=== PATIENT | male | born 1935 | race Caucasian/White ===

== ENCOUNTER → 2021-02-27 10:45 | Outpatient (CLI) | payer MEDICARE, SELFPAY ==
[2021-02-27 11:22] LABS: ALB/GLOB Ratio 0.7 RATIO (0.9-2.4); AST(SGOT) 12 U/L (15-37); Alanine Aminotransfer ALT/SGPT 21 U/L (16-61); Albumin, Serum 3.2 g/dL (3.2-5.0); Alkaline Phosphatase 65 U/L (45-117); Anion Gap 7 (5-15); BUN 24 mg/dL (7-18); BUN/Creat Ratio 15.5 RATIO (10-20); Calcium,Total 8.8 mg/dL (8.5-10.1); Chloride 98 mmol/L (98-107); Creatinine, Serum 1.55 mg/dL (0.70-1.30); EST Glomerular Filtration Rate 46 mL/min (>60); Est Glom Filt Rate - Afr Amer 55 mL/min (>60); Globulin 4.3 g/dL (2.2-4.2); Glucose 121 mg/dL (74-106); Potassium 3.3 mmol/L (3.5-5.1); Protein, Total 7.5 g/dL (6.4-8.2); Sodium Level 129 mmol/L (136-145)
== END ==
PROVIDERS: PCP Family Medicine; Visit Provider Nurse Practitioner Family
DX: R19.7 Diarrhea, unspecified (principal)
CPT/HCPCS: 36415; 80053; 87177; 87209

== ENCOUNTER 2023-04-06 19:45 | Inpatient (IN) | payer MEDICARE, SELFPAY ==
[2023-04-06 21:00] VITALS: BMI 22.6
[2023-04-06 21:10] VITALS: BP 126/63; PULSE 57; RESP 16; TEMP 36.8; O2SAT 95
[2023-04-06 22:00] VITALS: BP 128/69; PULSE 59; PULSE 63; RESP 15; RESP 16; TEMP 36.8; O2SAT 95
[2023-04-06 22:16] VITALS: PULSE 76
[2023-04-06] MEDS: Methocarbamol 500 MG Tablet PO (22:16)
[2023-04-06] MEDS: Metoprolol Tartrate 50 MG Tablet PO (22:16)
[2023-04-06] MEDS: Atorvastatin Calcium 40 MG Tablet PO (22:16)
[2023-04-07] VITALS (7 sets, daily range): BP systolic 94–144; BP diastolic 44–66; PULSE 59–79; RESP 15; TEMP 36.6–36.7; O2SAT 92–96
[2023-04-07 05:39] LABS: Absolute Lymphocyte Count 1.22 X10^3/uL (0.83-4.51); Absolute Neutrophil Count 4.3 X10^3/uL (2.0-7.7); Basophil# 0.03 X10^3/uL; Basophil% 0.4 % (0-1); Eosinophil# 0.32 X10^3/uL; Eosinophils% 4.7 % (0-5); Hematocrit 36.6 % (40-54); Hemoglobin 12.6 g/dL (13.0-16.5); Lymphocyte # 1.22 X10^3/ul (0.83-4.51); Mean Corp Hgb Conc 34.4 g/dL (32-36); Mean Corpuscular Hgb 29.9 pg (27.0-32.0); Mean Corpuscular Volume 86.7 fL (80-94); Mean Platelet Vol. 10.6 fl (6.2-12.0); Monocyte# 0.92 X10^3/uL; Monocyte% 13.6 % (0-10); NRBC Flagged by Analyzer 0 % (0-5); Neutrophil # 4.27 X10^3/uL (2.7-7.7); Platelet Count 195 K/mm3 (150-450); RBC Distribution Width CV 13.6 % (11.6-14.6); RBC Distribution Width SD 42.5 fl (35.1-43.9); Red Blood Count 4.22 M/mm3 (4.6-6.2); White Blood Count 6.8 K/mm3 (4.4-11.0)
[2023-04-07] MEDS: Acetaminophen 500 MG Tablet PO (05:50)
[2023-04-07 05:52] LABS: Anion Gap 7 (5-15); BUN 25 mg/dL (7-18); BUN/Creat Ratio 22.3 RATIO (10-20); Calcium,Total 8.2 mg/dL (8.5-10.1); Chloride 92 mmol/L (98-107); Creatinine, Serum 1.12 mg/dL (0.70-1.30); EST Glomerular Filtration Rate 66 mL/min (>60); Est Glom Filt Rate - Afr Amer 80 mL/min (>60); Estimated Creatinine Clearance 45.27 ml/min; Glucose 115 mg/dL (74-106); Magnesium 1.8 mg/dL (1.6-2.6); Phosphorus 3.4 mg/dL (2.5-4.9); Potassium 4.1 mmol/L (3.5-5.1); Sodium Level 124 mmol/L (136-145)
[2023-04-07] MEDS: Aspirin 81 MG TAB.CHEW PO (09:00)
--- NOTE | 2023-04-07 09:33 | EX.PCM.HP.RE ---
[facility] - General General Date of Admission: 04/06/23 Date of Service: 04/07/23 Chief Complaint: Post stroke debility. HPI Narrative SERGO RALPH, is a 88 YO M with a PMH of BPH, hypertension, abdominal aortic aneurysm, bilateral carotid stenosis, celiac disease, diverticulosis, elevated hemoglobin A1c, internal hemorrhoids, stage IIIa chronic renal failure, vitamin D deficiency and hyperlipidemia who presented to an ED on 04/01/2023 in the evening complaining of sudden onset of left arm weakness after going for a walk at approximately noon. He then took a nap and when he woke up the symptoms were mildly improved but still present. He had not taken any of his medications that day. NIHSS at admission to the emergency department was 0. CT head showed no evidence of an acute infarct or other acute parenchymal process. There was a small region of encephalomalacia and gliosis in the right frontal lobe. CTA showed no large vessel occlusion or high-grade stenosis. There was bilateral carotid artery disease estimated at 30 to 40% on the right and less than 30% on the left. Vertebral arteries were patent bilaterally. He was admitted to the hospital and started on aspirin, Plavix and atorvastatin. Echocardiogram showed the left ventricle to be normal in size with moderate concentric left ventricular hypertrophy and hyperdynamic systolic function with an EF estimated at 70 to ?5%. There was 2+ aortic regurgitation. There was no PFO. He became lightheaded and had a fall on 04/02/23 while standing at the sink brushing his teeth. He sustained a left elbow skin tear and mild superficial abrasion to the back of the head with an underlying hematoma. Neuro exam had not changed from that morning when he had mild left upper extremity weakness. The following morning he complained of left lateral thoracic pain. X-ray showed fractures of ribs 8 9 and 10 on the left with a small pneumothorax. On 04/03/2023 he had an MRI of the brain which showed an acute infarct of the right inferior parietal lobule. There was evidence of small foci of previous infarcts/microvascular ischemia along the right lateral temporal occipital junction and the right middle cerebral peduncle. There were small subacute infarcts in the right cerebellar hemisphere and evidence of chronic lacunar infarcts in both cerebellar hemispheres. There was suspected minimal petechial hemorrhage. While in the hospital he was seen by PT/OT/ST and acute rehab was recommended at [place]. I reviewed the therapy notes prior to DC and he had good participation in activities but was limited by pain in his ribs. The physical therapy problem list included decreased strength, functional mobility impairment and balance impairment. He exhibited some impulsive behavior and some left-sided neglect. He was transferred to [facility] acute rehab unit on 04/06/2023 for 3 hours of therapy daily to restore function and independence at or near his level prior to CVA. All lab drawn this morning was personally reviewed. Of most importance is the sodium level which is 124. Afebrile VSS Maintaining appropriate oxygen saturation on RA Oral intake is fair. He ate 50 to 74% of his breakfast today. Discussed with nursing - no problems that need addressed Reviewed the PT/OT/ST notes Medication list reviewed. [facility] Medical History (Updated 04/07/23 @ 18:[address] Lily Braden DO) AAA (abdominal aortic aneurysm) BPH (benign prostatic hyperplasia) Carotid stenosis, bilateral Celiac disease Diverticulosis Hyperlipidemia Hypertension Internal hemorrhoids Non-smoker Stroke/cerebrovascular accident Home Medications amlodipine 5 mg tablet mg PO DAILY TREAT HIGH BLOOD PRESSURE 04/06/23 [History Last Taken Unknown] aspirin 81 mg capsule 81 mg PO DAILY HEART HEALTH 04/06/23 [History Last Taken Unknown] atorvastatin 40 mg tablet 40 mg PO QHS CHOLESTEROL 04/06/23 [History Last Taken Unknown] cholecalciferol (vitamin D3) 125 mcg (5,000 unit) tablet (Vitamin D3) 5,000 unit PO DAILY SUPPLEMENT 04/06/23 [History Last Taken Unknown] clopidogrel 75 mg tablet (Plavix) 75 mg PO DAILY HEART 04/06/23 [History Last Taken Unknown] lidocaine 4 % topical patch 1 patch topical DAILY RIB PAIN 04/06/23 [History Last Taken Unknown] methocarbamol 500 mg tablet 500 mg PO BID PAIN 04/06/23 [History Last Taken Unknown] metoprolol tartrate 50 mg tablet mg PO BID HTN 04/06/23 [History Last Taken Unknown] oxycodone 5 mg capsule 5 mg PO Q6H PRN pain 04/06/23 [History Last Taken Unknown] tamsulosin 0.4 mg capsule mg PO DAILY TREAT ENLARGED PROSTRATE 04/06/23 [History Last Taken Unknown] Allergy/AdvReac Type Severity Reaction Status Date / Time GLUTEN FREE AdvReac Intermediate GI DISTRESS Uncoded 04/06/23 23:52 Family History (Updated 04/07/23 @ 09:[address] Lily Braden DO) Father CVA (cerebral vascular accident) Sister Lupus (systemic lupus erythematosus) Brother Diabetes Brother Diabetes Surgical History (Updated 04/07/23 @ 09:[address] Lily Braden DO) H/O abdominal aortic aneurysm repair History of excision of lesion History of excision of lesion Social History (Updated 04/07/23 @ 16:[address] Lily Braden DO) household members: significant other housing: other details: Private one-story home with no steps. 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 pets and animals: Yes Smoking Status: Never smoker alcohol intake: never substance use type: does not use ROS Review of Systems ROS Unobtainable: due to encephalopathy and other Details: His only complaint at this time is back pain and he perseverates on this. He has posterior rib fractures 7-9 from his fall. He tells me the pain is getting better. He denies cephalgia but has a large bruise over the Left parietal/occipital area of the skull. Vital Signs Vital Signs Vital Signs: 04/06/23 22:16 04/06/23 21:10 04/06/23 22:00 Temperature 98.3 F 98.2 F Temperature Source Temporal Temporal Pulse Rate 76 57 L 59 L Respiratory Rate 16 15 Respiratory Effort Respiratory Depth Respiratory Pattern Blood Pressure 126/63 H 128/69 H Blood Pressure Mean 84 88 Blood Pressure Source Monitor Monitor Blood Pressure Position Semi-Fowlers Semi-Fowlers Blood Pressure Location Left Arm Right Arm Pulse Ox 95 95 Oxygen Delivery Method Room Air Room Air 04/06/23 22:00 04/07/23 07:59 Temperature 97.9 F Temperature Source Oral Pulse Rate 63 59 L Respiratory Rate 16 15 Respiratory Effort Normal Non-Labored Respiratory Depth Normal Respiratory Pattern Normal Blood Pressure 144/66 H Blood Pressure Mean 92 Blood Pressure Source Monitor Blood Pressure Position Semi-Fowlers Blood Pressure Location Left Arm Pulse Ox 96 Oxygen Delivery Method Room Air Room Air Weight Weight: 149 lb 0.52 oz Body Mass Index (BMI) 22.6 Indicators for Scoring Admitted with or Primary Diagnosis of CVA/Stroke: Yes Hx of CVA/Stroke: Yes Modified [place] Score MRS Score at time of Evaluation: 4-Moderate/severe disability NIHSS NIHSS 1a. Level of Consciousness: Alert; keenly responsive 1b. LOC Questions: Answers neither question correctly. 1c. LOC Commands: Performs both tasks correctly. 2. Best Gaze: Partial gaze palsy; 3. Visual: Complete hemianopia 4. Facial Palsy: Normal symmetrical movements 5a. Left Arm: No drift; arm holds 90 (or 45) degrees for full 10 seconds 5b. Right Arm: No drift; arm holds 90 (or 45) degrees for full 10 seconds 6a. Left Leg: No drift; leg holds 30-degree position for full 5 seconds 6b. Right Leg: No drift; leg holds 30-degree position for full 5 seconds 7. Limb Ataxia: Present in 2 limbs 8. Sensory: Normal; no sensory loss 9. Best Language: [id number]-lg-[id number] aphasia; 10. Dysarthria: Cvur-dp-[id number] dysarthria; 11. Extinction and Inattention: Profound donna-inattention or extinction to more than one modality; Total: 11 Stroke Questions Stroke Team Activated: No Physical Exam Const alert Constitutional Narrative: He is oriented to person only for me. Could not tell me the year or the month. He is pleasant and cooperative. Orientation / Consciousness: confused HEENT normocephalic HEENT Narrative: He has a bruise on the top of his head in the parietal/occipital area where he hit his head when he fell. Mouth: dry mucous membranes Eyes EOMs intact bilaterally Eyes Narrative: Pupils are reactive to light bilaterally Neck supple, no JVD, No nodes and no carotid bruits General: trachea midline Resp normal respiratory effort, normal air movement and clear to auscultation bilaterally Resp Narrative: Excellent air exchange throughout. No conversational dyspnea. Speaking in complete sentences. Effort and Inspection: Negative for tachypneic or labored Cardio regular rate, regular rhythm, S1 normal heart sound, S2 normal heart sound, no murmurs, no rub and no gallops Cardio Narrative: It was noisy in the room and I could not hear a diastolic murmur at the aortic listening post. He is known to have 2+ aortic regurgitation. GI normal to inspection, nondistended, normoactive bowel sounds, soft to palpation and non-tender GI Narrative: No guarding with palpation Extremity no calf tenderness Extremity Narrative: He has pain in the Left posterior thoracic area but he did not complain when I laid the stethoscope on his back. He is not splinting his respirations. General Extremity: Negative for clubbing, cyanosis or edema Skin Skin Narrative: He has a bandage on the L elbow from an abrasion sustained in a fall at the previous hospital. General Skin Exam: no breakdown Rashes: no rashes Neuro CN's II-XII intact bilaterally, no focal motor deficits and no sensory deficits noted Neuro Narrative: He is ataxic with both Upper extremities and both LE's. He has a hemianopia with loss of R eye medial side and the L eye lateral side. He has left side visual neglect and has extinction with sensory stimulation. He can not read the sentences and he has a speech apraxia and mispronounces many words. He can sometimes describe what a picture is showing but, he can not come up with the name. For the hammock he told me it was a couch that swings back and forth. He has generalized weakness but no focal weakness in the arms or legs that I perceive. He is R handed. Coordination / Balance: Negative for [id number]-ih-[id number] test normal or wmoq-ic-hvch test normal Psych cooperative and affect normal Psych Narrative: He is confused but, pleasant and cooperative. Appearance: appropriate Attitude: No agitated Results Lab / Micro Data 04/07/23 05:32 04/07/23 05:32 Labs: Laboratory Results - last 24 hr 04/07/23 05:32: WBC 6.8, RBC 4.22 L, Hgb 12.6 L, Hct 36.6 L, MCV 86.7, MCH 29.9, MCHC 34.4, RDW Std Deviation 42.5, RDW Coeff of Chaim 13.6, Plt Count 195, MPV 10.6, Immature Gran % (Auto) 0.300, Neut % (Auto) 63.0, Lymph % (Auto) 18.0 L, Dougherty % (Auto) 13.6 H, Eos % (Auto) 4.7, Baso % (Auto) 0.4, Absolute Neuts (auto) 4.3, Absolute Lymphs (auto) 1.22, Nucleated RBC % 0, Sodium 124 L, Potassium 4.1, Chloride 92 L, Carbon Dioxide 25.0, Anion Gap 7, BUN 25 H, Creatinine 1.12, Estim Creat Clear Calc 45.27, Est GFR (MDRD) Af Amer 80, Est GFR (MDRD) Non-Af 66, BUN/Creatinine Ratio 22.3 H, Glucose 115 H, Calcium 8.2 L, Phosphorus 3.4, Magnesium 1.8 Assessment & Plan Assessment/Plan (1) Debility: (2) Stroke/cerebrovascular accident: QUALIFIERS: CVA mechanism: unspecified Qualified Code(s): I63.9 - Cerebral infarction, unspecified PLAN: There are several old strokes that he and his family are unaware of. No LVO on the CTA of the H&N. Needs to have a 30 day event monitor at DC to R/O emboli due to AF. 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: (7) Generalized weakness: (8) Acute metabolic encephalopathy: (9) Hyponatremia: (10) Normochromic normocytic anemia: (11) Orthostatic hypotension: (12) Prerenal azotemia: (13) Hyperglycemia: (14) Celiac disease: (15) BPH (benign prostatic hyperplasia): (16) Hyperlipidemia: QUALIFIERS: Hyperlipidemia type: unspecified Qualified Code(s): E78.5 - Hyperlipidemia, unspecified (17) Hypertension: QUALIFIERS: Hypertension type: primary hypertension Qualified Code(s): I10 - Essential (primary) hypertension PLAN: Plan PLAN PT for gait stability OT for ADL's ST for evaluation Analgesics as needed Bowel protocol Fall precautions Assess for Anxiety/Depression GI prophylaxis with pantoprazole 20 mg p.o. daily DVT prophylaxis with SCDs and CHANTAL hose....currently on ASA and Plavix with NN anemia and at risk for UGI bleeding......will check a hemoccult stool and if it is negative and the HH is stable will likely add Lovenox. Follow up with PCP and neurology following DC from [facility] Rehab AM lab including CMP, CBC, Mag and Phos personally reviewed. Gluten free diet and low fat no sodium restriction. Fractional excretion of sodium is 0.1% which is consistent with prerenal azotemia. This is reinforced by the fact that he has orthostatic hypotension. Oral intake is only been 480 cc since he arrived and he had 960 out. Serum osmolality is low at 269 and the urine osmolality is 653. Start IV NS at 75 cc/hr which is less than 0.5 MEQ per hour to prevent central pontine myelinolysis TSH and free T4 are within normal limits. Charges/Coding Visit Charges Inpatient E&M: 65860 Init Hosp L3
--- NOTE | 2023-04-07 10:27 | REHABEVAL_ITS ---
Admission Information Primary Diagnosis:: Post stroke debility Status Changes from Prescreening?: No changes Identified Actual Problem List:: Falls, Skin Intergrity, Pain, ALteration in Cmfrt, Cognitve Impr/Memory Loss, Alteration in Sleep, Mobility Impaired, Self Care Deficit, BP, Hypertension, BP, Hypotension, Fluid Change-Dehydration and Alteration-Leisure Activ. Potential Problem List:: DVT, Bleeding, Infection, UTI, Aspiration, Falls, Skin Integrity and Depression Risk of Complications DVT: CHANTAL Shah and - (SCDs - he is on dual antiplatelet agents and has a N/N anemia. Will check a hemoccult stool and if the HGB remains stable and the hemoccult is negative we will likely start heparin 5,000 units Q 12H for DVT prophylaxis.) Bleeding: Monitor Lab Values, Nursing to Teach Precautions for anti-coagulation therapy., Wound, if applicable, to be assessed every shift. and Stroke patients assessed for lethargy or change in status. Infection: Clinical Staff to Monitor for S/S of infection: and S/S of infection include fever, redness, warmth, etc. Urinary Tract Infection: Monitor for frequency, burning, discomfort, or incontinence. and Nursing will obtain urine sample for urinalysis and C&S when ordered. Aspiration: Clinical staff will monitor for coughing, drooling, congestion., Speech will evaluate swallowing and dsyphasia. and Nursing will monitor patient swallowing during meals. Falls: Patient will be evaluated for Fall Precautions and Patient will be placed on Fall Precautions as indicated per protocol. Skin Breakdown: Nursing will assess skin daily using assessment tool. and Nursing will place on Skin Breakdown Precautions as indicated. Pain: Clinical staff will assess patient's pain level per protocol., Medications will be given, if needed, and the pain level reassessed. and Other methods: Massage, distraction, decrease stimulus, etc. used PRN. Plan of Care Patient requires physician specializing in physical medicine and rehab oversight to provide close medical supervision of rehab issues including: Pain Management, Sleep Problems, Bowel and Bladder, Medical and co-morbidity Management, DVT prophylaxis, Rehabilitation Leadership and Coordination of treatment team Patient needs Physical Therapy: For a minimum of 1 hour and At least 5 out of 7 days Patient needs Physical Therapy to improve:: Mobility, Strengthening, Transfers, Stretching, ROM, Endurance, Stairs, Gait and Balance Patient needs Occupational Therapy: For a minimum of 1 hour and At least 5 out of 7 days Patient needs Occupational Therapy to improve ADL's incl.: Eating, Grooming, Bathing, Dressing, Toileting, Toilet transfers, Community Reintegration, Higher functioning activities, Household tasks, Adaptive Equipment, Splinting and Other activities as determined Patient requires speech therapy: For a minimum of 1 hour and At least 5 out of 7 days Patient requires speech therapy for: Swallowing, Cognition, Language Skills and Compensatory Strategies Patient requires 24/7 Rehabilitation Nursing for: Pain Issues, Identifying and preventing risk factors, Monitoring and reporting current medical conditions, Assisting with ambulation, transfer, and all ADL's, Teaching patients about disease process and medications, Family teaching, Providing safe environment, Bowel and Bladder Issues, Skin integrity and Medication Management Patient needs Roll Coverer/ Case Management for: Discharge Planning, Arran ging Home Equipment or Services and Family Interventions Patient needs Dietary and Nutrition Services for: Adequate Nutrition, Nutritional Supplements and Nutritional Education Goals Patient will remain: free from falls and or injury at time of discharge. Patient will perform bed mobility at: MOD I level of assist. Patient will complete transfers from bed to chair at: - (Supervision at discharge) Patient will ambulate: with LRD and - (500 feet on various surfaces for safe return to home at mod I) Patient will complete upper body dressing at: - (Supervision) Patient will complete lower body dressing at: - (Supervision with assistive equipment as needed) Patient will complete toileting at: - (Supervision) Patient will perform bathing at: - (Supervision/standby assist) Patient will complete grooming at: - (Supervision) Patient will complete home management skills at: MOD I level of assist. Patient will achieve: - (1 curb step at mod I with the least restrictive device) Patient will have pain level of: of 3 or less Patient's skin will: remain intact Patient will receive: adequate nutrition. Discharge Planning Pt Prognosis for Sig. Practical Improv. w/in Reasonable Time: Good Estimated Length of stay (days): 28 Anticipated D/C Destination: Home with Outpt Therapy Was Preadmission Assessment Accurate?: No
[2023-04-07] MEDS: amLODIPine 5 MG Tablet PO (10:47)
[2023-04-07] MEDS: Clopidogrel Bisulfate 75 MG Tablet PO (10:47)
[2023-04-07] MEDS: Cholecalciferol (Vit D3) 125 MCG CAPSULE (5,000 UNITS) PO (10:48)
[2023-04-07] MEDS: Tamsulosin HCl 0.4 MG Capsule PO (10:48)
[2023-04-07] MEDS: Lidocaine 5% Patch 1 PATCH TOPICAL (10:48)
[2023-04-07] MEDS: Metoprolol Tartrate 50 MG Tablet PO (10:49)
[2023-04-07 10:55] LABS: T4 Free Direct 1.19 ng/dL (0.76-1.46); Thyroid Stim Hormone (TSH) 3.26 uIU/mL (0.358-3.74)
[2023-04-07 13:22] LABS: Osmolality, Serum 269 mOsm/KG (280-301)
[2023-04-07 15:07] LABS: Urine Sodium 18 mmol/L (Not Establ.)
[2023-04-07 15:28] LABS: Osmolality, Urine 635 mOsm/KG
[2023-04-07] MEDS: 0.9% Normal Saline 1,000 ML 75 ML IV (17:22)
[2023-04-07] MEDS: Pantoprazole Sodium 20 MG Tablet PO (17:22)
[2023-04-07] MEDS: traMADol 50 MG Tablet PO (21:11)
[2023-04-07] MEDS: Atorvastatin Calcium 40 MG Tablet PO (21:11)
[2023-04-07] MEDS: Acetaminophen 500 MG Tablet 1000 MG PO (21:14)
[2023-04-07 23:47] LABS: Anion Gap 8 (5-15); BUN 30 mg/dL (7-18); BUN/Creat Ratio 26.3 RATIO (10-20); Calcium,Total 8.2 mg/dL (8.5-10.1); Chloride 92 mmol/L (98-107); Creatinine, Serum 1.14 mg/dL (0.70-1.30); EST Glomerular Filtration Rate 65 mL/min (>60); Est Glom Filt Rate - Afr Amer 78 mL/min (>60); Estimated Creatinine Clearance 44.47 ml/min; Glucose 129 mg/dL (74-106); Potassium 4.1 mmol/L (3.5-5.1); Sodium Level 124 mmol/L (136-145)
--- NOTE | 2023-04-08 00:35 | NURSING ---
Pt has repeatedly attempted to climb out of bed. Very disoriented. Call light in reach,placed back to bed.
--- NOTE | 2023-04-08 04:34 | NURSING ---
Bladder scanned pt d/t no void, being confused, and having fluids running. BS for 454mL and straight cathed 600mL. PVR 1mL after str/cath. Pt tolerated fair.
[2023-04-08] MEDS: Acetaminophen 500 MG Tablet 1000 MG PO ×3 (06:01→19:46)
[2023-04-08] MEDS: 0.9% Normal Saline 1,000 ML 75 ML IV (06:01)
[2023-04-08 07:16] LABS: Hematocrit 36.9 % (40-54); Hemoglobin 12.7 g/dL (13.0-16.5)
[2023-04-08 07:54] LABS: Anion Gap 8 (5-15); BUN 26 mg/dL (7-18); BUN/Creat Ratio 22.4 RATIO (10-20); Calcium,Total 8.3 mg/dL (8.5-10.1); Chloride 93 mmol/L (98-107); Creatinine, Serum 1.16 mg/dL (0.70-1.30); EST Glomerular Filtration Rate 63 mL/min (>60); Est Glom Filt Rate - Afr Amer 77 mL/min (>60); Estimated Creatinine Clearance 43.71 ml/min; Glucose 106 mg/dL (74-106); Potassium 3.8 mmol/L (3.5-5.1); Sodium Level 124 mmol/L (136-145)
[2023-04-08 08:27] VITALS: BP 130/70; PULSE 81
[2023-04-08] MEDS: amLODIPine 5 MG Tablet PO (08:27)
[2023-04-08] MEDS: Aspirin 81 MG TAB.CHEW PO (08:27)
[2023-04-08] MEDS: Metoprolol Tartrate 50 MG Tablet PO ×2 (08:27→19:46)
[2023-04-08] MEDS: Lidocaine 5% Patch 1 PATCH TOPICAL (08:27)
[2023-04-08] MEDS: Pantoprazole Sodium 20 MG Tablet PO (08:27)
[2023-04-08] MEDS: Clopidogrel Bisulfate 75 MG Tablet PO (08:27)
[2023-04-08] MEDS: Cholecalciferol (Vit D3) 125 MCG CAPSULE (5,000 UNITS) PO (08:27)
[2023-04-08] MEDS: Tamsulosin HCl 0.4 MG Capsule PO (08:27)
[2023-04-08 09:15] VITALS: BP 139/63; PULSE 59; RESP 15; TEMP 36.6; O2SAT 93
--- NOTE | 2023-04-08 09:46 | PCM.PROGNOTE ---
Subjective Subjective Afebrile VSS-the systolic blood pressure tends to be mildly elevated in the AM. Yesterday it was 144/66 and today it is 139/63. The remainder of the blood pressures are within normal limits. Maintaining appropriate oxygen saturation on RA Oral intake is fair Fluid balance yesterday was only +268. He took 720 orally and had 749 cc IV. He had 1400 cc output. Discussed with nursing -he was restless last night and trying to climb out of bed. He was confused and setting off his alarms. He had a postvoid residual of 600 cc last night and he was straight cathed. Reviewed the PT/OT/ST notes - He is participating in therapy today. Medication list reviewed. A.m. lab was personally reviewed. Hemoglobin is stable at 12.7. Sodium is once again 124 and the chloride is 93. Potassium is 3.8. The BUN is 26, down from 30 yesterday and the creatinine is stable and is 1.16. He is known to have chronic renal failure and likely is unable to concentrate his urine. May have to give 3% saline to get his sodium up. Another option would be tolvaptan. Fasting glucose this morning is 106. Had an emesis today while doing therapy. N/V likely related to the low sodium. Objective Data Objective Data Vital Signs: Vital Signs Temp Pulse Resp BP Pulse Ox O2 Del Method 97.9 F 59 L 15 139/63 H 93 Room Air 04/08/23 09:15 04/08/23 09:15 04/08/23 09:15 04/08/23 09:15 04/08/23 09:15 04/08/23 09:15 Oxygen Delivery Method Room Air Weight: 149 lb 0.52 oz Body Mass Index (BMI) 22.6 Intake & Output: Intake and Output for Last 24 Hours 04/06/23 04/07/23 04/08/23 23:59 23:59 23:59 Intake Total 660 / 660 1248.75 / 1248.75 Output Total 1660 / 1660 600 / 600 Balance -1000 / -1000 648.75 / 648.75 Lab / Micro Data 04/08/23 05:26 04/09/23 06:19 Labs: Laboratory Results - last 24 hr 04/07/23 05:32: TSH 3.26, Free T4 1.19 04/07/23 11:30: Urine Osmolality 635, Ur Random Sodium 18, Urine Creatinine 162.00 04/07/23 11:40: Serum Osmolality 269 L 04/07/23 23:25: Sodium 124 L, Potassium 4.1, Chloride 92 L, Carbon Dioxide 24.0, Anion Gap 8, BUN 30 H, Creatinine 1.14, Estim Creat Clear Calc 44.47, Est GFR (MDRD) Af Amer 78, Est GFR (MDRD) Non-Af 65, BUN/Creatinine Ratio 26.3 H, Glucose 129 H, Calcium 8.2 L 04/08/23 05:26: Hgb 12.7 L, Hct 36.9 L, Sodium 124 L, Potassium 3.8, Chloride 93 L, Carbon Dioxide 23.0, Anion Gap 8, BUN 26 H, Creatinine 1.16, Estim Creat Clear Calc 43.71, Est GFR (MDRD) Af Amer 77, Est GFR (MDRD) Non-Af 63, BUN/Creatinine Ratio 22.4 H, Glucose 106, Calcium 8.3 L Physical Exam Const alert and no apparent distress General Appearance: cooperative Orientation / Consciousness: confused Resp normal respiratory effort and clear to auscultation bilaterally Resp Narrative: No conversational dyspnea. No cough. Effort and Inspection: Negative for tachypneic Cardio regular rate, regular rhythm and no gallops GI normal to inspection, nondistended, normoactive bowel sounds, soft to palpation and non-tender GI Narrative: No guarding with palpation.. Suspect the emesis was due to low sodium and cerebral edema. 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 Continue therapy 2. 3% saline today. He is putting out as much urine as we are adding with IV NS. This may be related to his hx of stage 3 RF and inability to concentrate the urine. He is not on an diuretic. I calculated the sodium deficit and the amount of 3% saline to get the NA up to 130. 3. Recheck the BMP in the AM and also MAG and phos. 4. stool is hemoccult negative. 5. Seroquel 25 mg at HS for confusion and insomnia. EKG today shows a nl QT interval. Charges/Coding Visit Charges Inpatient E&M: 27241 Subs Hosp L2
--- NOTE | 2023-04-08 10:06 | EKG12_ITS ---
Test Reason : HISTORY Blood Pressure : / mmHG Vent. Rate : 071 BPM Atrial Rate : 071 BPM P-R Int : 190 ms QRS Dur : 086 ms QT Int : 402 ms P-R-T Axes : 029 004 034 degrees QTc Int : 436 ms Normal sinus rhythm Normal ECG When compared with ECG of 06-APR-2001 05:48, No significant change was found Confirmed by SYLVIA BENITEZ, TYRONE ([id number]), commercial production editor BELEN AMAYA ([id number]) on 04/18/2023 7:15:06 AM Referred By: NANCY Confirmed By:TYRONE WARD MD
[2023-04-08] MEDS: Ondansetron ODT 4 MG Tablet PO (10:25)
[2023-04-08 10:30] VITALS: O2SAT 95
[2023-04-08] MEDS: Sodium Cl 3% 500 ML 45 ML IV (10:39)
--- NOTE | 2023-04-08 11:17 | NURSING ---
Room change to 402 and aware.
--- NOTE | 2023-04-08 17:22 | NURSING ---
Lab called and this nurse inquired about lab draw that was scheduled and they will be up to do it. This nurse made a heplock with IV per order until lab level is back.
[2023-04-08 17:54] LABS: Anion Gap 6 (5-15); BUN 30 mg/dL (7-18); BUN/Creat Ratio 28.3 RATIO (10-20); Calcium,Total 8.1 mg/dL (8.5-10.1); Chloride 98 mmol/L (98-107); Creatinine, Serum 1.06 mg/dL (0.70-1.30); EST Glomerular Filtration Rate 70 mL/min (>60); Est Glom Filt Rate - Afr Amer 85 mL/min (>60); Estimated Creatinine Clearance 47.83 ml/min; Glucose 123 mg/dL (74-106); Potassium 4.3 mmol/L (3.5-5.1); Sodium Level 128 mmol/L (136-145)
[2023-04-08 19:24] VITALS: BP 114/52; PULSE 62; RESP 12; TEMP 36.6; O2SAT 96
[2023-04-08 19:46] VITALS: PULSE 62
[2023-04-08] MEDS: QUEtiapine 25 MG Tablet PO (19:46)
[2023-04-08] MEDS: Atorvastatin Calcium 40 MG Tablet PO (19:46)
[2023-04-09 06:00] VITALS: BMI 23.7
[2023-04-09 07:00] LABS: Anion Gap 3 (5-15); BUN 29 mg/dL (7-18); BUN/Creat Ratio 29.6 RATIO (10-20); Calcium,Total 7.9 mg/dL (8.5-10.1); Chloride 104 mmol/L (98-107); Creatinine, Serum 0.98 mg/dL (0.70-1.30); EST Glomerular Filtration Rate 77 mL/min (>60); Est Glom Filt Rate - Afr Amer 93 mL/min (>60); Estimated Creatinine Clearance 51.73 ml/min; Glucose 106 mg/dL (74-106); Magnesium 1.8 mg/dL (1.6-2.6); Phosphorus 2.5 mg/dL (2.5-4.9); Potassium 4.1 mmol/L (3.5-5.1); Sodium Level 131 mmol/L (136-145)
[2023-04-09] MEDS: Acetaminophen 500 MG Tablet 1000 MG PO ×3 (07:09→20:10)
[2023-04-09 07:57] VITALS: BP 145/63; PULSE 68; RESP 16; TEMP 37.1; O2SAT 92
[2023-04-09 09:45] VITALS: O2SAT 91
[2023-04-09 09:57] VITALS: PULSE 65
[2023-04-09] MEDS: Aspirin 81 MG TAB.CHEW PO (09:57)
[2023-04-09] MEDS: Cholecalciferol (Vit D3) 125 MCG CAPSULE (5,000 UNITS) PO (09:57)
[2023-04-09] MEDS: Metoprolol Tartrate 50 MG Tablet PO ×2 (09:57→20:11)
[2023-04-09] MEDS: Clopidogrel Bisulfate 75 MG Tablet PO (09:57)
[2023-04-09] MEDS: Lidocaine 5% Patch 1 PATCH TOPICAL (09:57)
[2023-04-09] MEDS: amLODIPine 5 MG Tablet PO (09:57)
[2023-04-09] MEDS: Tamsulosin HCl 0.4 MG Capsule PO (09:57)
[2023-04-09] MEDS: Pantoprazole Sodium 20 MG Tablet PO (09:57)
[2023-04-09] MEDS: 0.9% Saline Lock 10 ML Syringe IV (14:15)
[2023-04-09 19:03] VITALS: BP 127/49; PULSE 61; RESP 17; TEMP 36.2; O2SAT 93
[2023-04-09] MEDS: QUEtiapine 25 MG Tablet PO (20:10)
[2023-04-09 20:11] VITALS: PULSE 61
[2023-04-09] MEDS: Atorvastatin Calcium 40 MG Tablet PO (20:11)
[2023-04-10] MEDS: Acetaminophen 500 MG Tablet 1000 MG PO ×3 (05:09→20:29)
[2023-04-10 06:00] VITALS: BMI 23.6
[2023-04-10 07:24] VITALS: BP 153/59; PULSE 67; RESP 17; TEMP 37.2; O2SAT 93
[2023-04-10] MEDS: Lidocaine 5% Patch 1 PATCH TOPICAL (08:54)
[2023-04-10 08:56] VITALS: BP 157/59; PULSE 67
[2023-04-10] MEDS: Metoprolol Tartrate 50 MG Tablet PO ×2 (08:56→20:31)
[2023-04-10] MEDS: Tamsulosin HCl 0.4 MG Capsule PO (08:56)
[2023-04-10] MEDS: Clopidogrel Bisulfate 75 MG Tablet PO (08:56)
[2023-04-10] MEDS: Cholecalciferol (Vit D3) 125 MCG CAPSULE (5,000 UNITS) PO (08:56)
[2023-04-10] MEDS: Aspirin 81 MG TAB.CHEW PO (08:56)
[2023-04-10] MEDS: Pantoprazole Sodium 20 MG Tablet PO (08:56)
[2023-04-10] MEDS: amLODIPine 5 MG Tablet PO ×2 (08:56→11:08)
--- NOTE | 2023-04-10 09:30 | PCM.PROGNOTE ---
Subjective Subjective Sav was seen on team rounds today. His Lily, daughter Kesha and son Syd were present in the room for rounds and liaison communicated by phone. Afebrile VSS Maintaining appropriate oxygen saturation on RA Oral intake is good, fluids and food. Weight yesterday was 156 pounds, up from 149 pounds at admission and this is likely due to rehydration. Discussed with nursing - 2 Xlarge liquid stools yesterday and 3 additional soft BM's on shift superintendent caustic cresylate. Reviewed the PT/OT/ST notes Medication list reviewed. He got a laxative yesterday. Lab drawn yesterday AM following 3% saline on 04/08/2023 shows the sodium to be up to 131 with a potassium of 4.1. BUN/creatinine ratio is even higher at 29.6. Hemoccult stool was negative. Calcium is low at 7.9 but an albumin was not checked. Phosphorus is borderline low and the magnesium is 1.8. Daisy the industrial registered nurse talked with Lily, Syd and Kesha today about his diet, food preferences and restrictions. He eats no raw vegetables. He eats canned beets. There is a special kind of yogurt he eats and the kitchen will order this and keep it on stock on rehab. He is gluten free and Daisy gave him several of the Gluten free diets to keep in his room for his /family to use when ordering his meals. Objective Data Objective Data Vital Signs: Vital Signs Temp Pulse Resp BP Pulse Ox O2 Del Method 98.9 F 67 17 157/59 H 93 Room Air 04/10/23 07:24 04/10/23 08:56 04/10/23 07:24 04/10/23 08:56 04/10/23 07:24 04/10/23 07:24 Oxygen Delivery Method Room Air Weight: 156 lb 1.396 oz Body Mass Index (BMI) 23.7 Intake & Output: Intake and Output for Last 24 Hours 04/08/23 04/09/23 04/10/23 23:59 23:59 23:59 Intake Total 2817.50 / 2817.50 1240 / 1490 490 / 490 Output Total 900 / 900 1300 / 1300 Balance 1917.50 / 1917.50 1240 / 1340 -810 / -810 Lab / Micro Data 04/10/23 10:30 04/10/23 10:30 Micro: Microbiology 04/08/23 15:50 Stool Stool Occult Blood (JANA) - Final Physical Exam Const alert and oriented x3 Constitutional Narrative: Doing much better than at admission. He was able to tell me the month, year, his age and where he is today. He is very alert and participating in therapy. 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 Continue therapy 2. Add 2.5 mg of amlodipine at at bedtime to better control the a.m. blood pressure. 3. BMP, albumin and H&H today 4. Orthostatic vital signs today Charges/Coding Visit Charges Inpatient E&M: 98787 Subs Hosp L2
[2023-04-10 09:42] VITALS: BP 114/50; BP 127/59; BP 130/51; PULSE 71; PULSE 74
[2023-04-10 10:59] LABS: Hematocrit 36.4 % (40-54)
[2023-04-10] MEDS: Magnesium Chloride 64 MG Delay Rel.Tablet 128 MG PO (11:08)
[2023-04-10 11:37] LABS: Albumin, Serum 2.7 g/dL (3.2-5.0); Anion Gap 3 (5-15); BUN 24 mg/dL (7-18); BUN/Creat Ratio 18.5 RATIO (10-20); Calcium,Total 8.4 mg/dL (8.5-10.1); Chloride 100 mmol/L (98-107); EST Glomerular Filtration Rate 56 mL/min (>60); Est Glom Filt Rate - Afr Amer 67 mL/min (>60); Estimated Creatinine Clearance 39.46 ml/min; Glucose 171 mg/dL (74-106); Sodium Level 129 mmol/L (136-145)
--- NOTE | 2023-04-10 13:02 | CASEMGMT ---
Social Work IDT met with patient, , dtr and son, Syd, then son, [place], via conference call for Team meeting. Discussed patient's progress in PT/OT/ST/SN. Educated to [facility] insurance with NRD 04/16 and continued stay is not guaranteed with each review. Pt's goal is to return home closer to PLOF with . However, pt and are both frail. Children are supportive but all work full-time. 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 SW will continue to follow for DC planning. Will ReTeam weekly. GUCCI HendrixW
[2023-04-10] MEDS: Na Biphos/Potassium Phosphate PACKET 1 PACKET PO ×2 (14:42→20:32)
[2023-04-10] MEDS: Sodium Chloride 1 GM Tablet 2 GM PO ×2 (14:42→20:31)
[2023-04-10 20:00] VITALS: BP 130/53; PULSE 69; RESP 16; TEMP 36.7; O2SAT 96
[2023-04-10 20:31] VITALS: BP 130/53; PULSE 69
[2023-04-10] MEDS: QUEtiapine 25 MG Tablet PO (20:31)
[2023-04-10] MEDS: amLODIPine 2.5 MG Tablet PO (20:31)
[2023-04-10] MEDS: Atorvastatin Calcium 40 MG Tablet PO (20:31)
[2023-04-11] MEDS: Acetaminophen 500 MG Tablet 1000 MG PO ×3 (05:08→20:37)
[2023-04-11] MEDS: Na Biphos/Potassium Phosphate PACKET 1 PACKET PO ×3 (05:09→20:36)
[2023-04-11 05:27] VITALS: BMI 23.3
[2023-04-11 07:49] VITALS: BP 133/52; PULSE 80; RESP 16; TEMP 36.7; O2SAT 92
[2023-04-11 09:15] VITALS: BP 133/52; PULSE 80
[2023-04-11] MEDS: Magnesium Chloride 64 MG Delay Rel.Tablet 128 MG PO (09:15)
[2023-04-11] MEDS: Metoprolol Tartrate 50 MG Tablet PO ×2 (09:15→20:36)
[2023-04-11] MEDS: Sodium Chloride 1 GM Tablet 2 GM PO ×2 (09:15→20:36)
[2023-04-11] MEDS: Aspirin 81 MG TAB.CHEW PO (09:15)
[2023-04-11] MEDS: Lidocaine 5% Patch 1 PATCH TOPICAL (09:15)
[2023-04-11] MEDS: amLODIPine 5 MG Tablet PO (09:15)
[2023-04-11] MEDS: Tamsulosin HCl 0.4 MG Capsule PO (09:15)
[2023-04-11] MEDS: Pantoprazole Sodium 20 MG Tablet PO (09:15)
[2023-04-11] MEDS: Cholecalciferol (Vit D3) 125 MCG CAPSULE (5,000 UNITS) PO (09:15)
[2023-04-11] MEDS: Clopidogrel Bisulfate 75 MG Tablet PO (09:15)
--- NOTE | 2023-04-11 09:59 | PCM.PROGNOTE ---
Subjective Subjective Afebrile VSS Maintaining appropriate oxygen saturation on RA Oral intake is good. He is eating 75 to 100% of most meals. Discussed with nursing - no problems that need addressed. He had no confusion last night. He is sleeping well. Reviewed the PT/OT/ST notes Medication list reviewed. Started on salt tabs yesterday. BMP ordered for tomorrow. Sav denies cephalgia, lightheadedness, chest pain, cough, shortness of breath, nausea/vomiting/abdominal pain and calf pain. He is c/o burning with urination this AM. Objective Data Objective Data Vital Signs: Vital Signs Temp Pulse Resp BP Pulse Ox O2 Del Method 98.1 F 80 16 133/52 H 92 Room Air 04/11/23 07:49 04/11/23 09:15 04/11/23 07:49 04/11/23 09:15 04/11/23 07:49 04/11/23 09:22 Oxygen Delivery Method Room Air Weight: 153 lb 14.122 oz Body Mass Index (BMI) 23.3 Intake & Output: Intake and Output for Last 24 Hours 04/09/23 04/10/23 04/11/23 23:59 23:59 23:59 Intake Total 1240 / 1490 1460 / 1460 240 / 240 Output Total 1550 / 1550 450 / 450 Balance 1240 / 1340 -90 / -90 -210 / -210 Lab / Micro Data 04/10/23 10:30 04/12/23 05:29 Labs: Laboratory Results - last 24 hr 04/10/23 10:30: Hgb 12.0 L, Hct 36.4 L, Sodium 129 L, Potassium 4.0, Chloride 100, Carbon Dioxide 26.0, Anion Gap 3 L, BUN 24 H, Creatinine 1.30, Estim Creat Clear Calc 39.46, Est GFR (MDRD) Af Amer 67, Est GFR (MDRD) Non-Af 56 L, BUN/Creatinine Ratio 18.5, Glucose 171 H, Calcium 8.4 L, Albumin 2.7 L Micro: Microbiology 04/08/23 15:50 Stool Stool Occult Blood (JANA) - Final Physical Exam Const alert and no apparent distress General Appearance: cooperative Resp normal respiratory effort, normal air movement and clear to auscultation bilaterally Effort and Inspection: Negative for tachypneic or labored Cardio regular rate, regular rhythm and no gallops GI normal to inspection, nondistended, normoactive bowel sounds, soft to palpation and non-tender Extremity no calf tenderness General Extremity: Negative for edema Skin General Skin Exam: no breakdown Rashes: no rashes Assessment & Plan Assessment/Plan (1) Debility: (2) Stroke/cerebrovascular accident: QUALIFIERS: CVA mechanism: unspecified Qualified Code(s): I63.9 - Cerebral infarction, unspecified 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 Continue therapy 2. BMP in the a.m. 3. UA today Charges/Coding Visit Charges Inpatient E&M: 46406 Subs Hosp L2
[2023-04-11 15:49] LABS: Mucous, Urine 0 SEEN /hpf (<or=2+); Squamous Epithelial Cells - UA 0 SEEN /hpf (0-5)
[2023-04-11 15:57] LABS: Color, Urine Yellow (Yellow); Glucose, Dipstick Normal (Normal); Ketone-Dipstick Negative (Negative); Leukocyte Esterase-Dipstick 500 /ul (Negative); Nitrite-Dipstick Positive (Negative); Occult Blood-Urine 250 /ul (Negative); Protein-Dipstick 100 mg/dl (Negative); Urine Bilirubin Dipstick Negative (Negative); Urine Clarity Cloudy (Clear); Urine Urobilinogen Normal (Normal)
[2023-04-11 16:16] LABS: Bacteria 4+ /hpf (None Seen); Red Blood Cells-Urine 0-5 SEEN /hpf (0-5); White Blood Cells >100 SEEN /hpf (0-5)
[2023-04-11 19:23] VITALS: BP 133/63; PULSE 63; RESP 18; TEMP 36.5; O2SAT 94
[2023-04-11] MEDS: Atorvastatin Calcium 40 MG Tablet PO (20:35)
[2023-04-11 20:36] VITALS: BP 133/63; PULSE 63
[2023-04-11] MEDS: QUEtiapine 25 MG Tablet PO (20:36)
[2023-04-11] MEDS: Amox/Clavulanate 500 MG Tablet PO (20:36)
[2023-04-11] MEDS: amLODIPine 2.5 MG Tablet PO (20:37)
[2023-04-11] MEDS: 0.9% Saline Lock 10 ML Syringe IV (20:40)
--- NOTE | 2023-04-11 21:00 | NURSING ---
Pt called out, states he feels nauseous, went to get a lupe jesús, walked into room, pt had vomited over the side rail. States he's very sorry, it just came all of a sudden. Large amount on floor and in bed, food particles and a few pills noted in vomit. Pt assisted with cleaning up, floor and bed cleaned with wipes and housekeeping called to mop. Pt assisted to sit in chair, given lupe jesús, states he is feeling somewhat better now. Call light in reach.
[2023-04-11] MEDS: Ondansetron ODT 4 MG Tablet PO (21:30)
[2023-04-12 05:14] VITALS: BMI 23.1
[2023-04-12] MEDS: Na Biphos/Potassium Phosphate PACKET 1 PACKET PO ×3 (05:22→20:32)
[2023-04-12] MEDS: Acetaminophen 500 MG Tablet 1000 MG PO ×3 (05:22→21:06)
[2023-04-12 06:05] LABS: Anion Gap 2 (5-15); BUN 28 mg/dL (7-18); BUN/Creat Ratio 22.4 RATIO (10-20); Calcium,Total 8.4 mg/dL (8.5-10.1); Chloride 102 mmol/L (98-107); Creatinine, Serum 1.25 mg/dL (0.70-1.30); EST Glomerular Filtration Rate 58 mL/min (>60); Est Glom Filt Rate - Afr Amer 70 mL/min (>60); Estimated Creatinine Clearance 41.04 ml/min; Glucose 104 mg/dL (74-106); Phosphorus 3.6 mg/dL (2.5-4.9); Potassium 4.2 mmol/L (3.5-5.1); Sodium Level 132 mmol/L (136-145)
[2023-04-12 07:40] VITALS: BP 136/59; PULSE 76; RESP 16; TEMP 36.9; O2SAT 93
[2023-04-12 09:11] VITALS: PULSE 76
[2023-04-12] MEDS: Metoprolol Tartrate 50 MG Tablet PO ×2 (09:11→20:32)
[2023-04-12] MEDS: Aspirin 81 MG TAB.CHEW PO (09:12)
[2023-04-12] MEDS: Amox/Clavulanate 500 MG Tablet PO ×2 (09:12→16:15)
[2023-04-12] MEDS: Tamsulosin HCl 0.4 MG Capsule PO (09:12)
[2023-04-12] MEDS: Pantoprazole Sodium 20 MG Tablet PO (09:13)
[2023-04-12] MEDS: Clopidogrel Bisulfate 75 MG Tablet PO (09:13)
[2023-04-12] MEDS: amLODIPine 5 MG Tablet PO (09:13)
[2023-04-12] MEDS: Sodium Chloride 1 GM Tablet 2 GM PO ×2 (09:13→21:06)
[2023-04-12] MEDS: Magnesium Chloride 64 MG Delay Rel.Tablet 128 MG PO (09:13)
[2023-04-12] MEDS: Cholecalciferol (Vit D3) 125 MCG CAPSULE (5,000 UNITS) PO (09:14)
--- NOTE | 2023-04-12 12:00 | CHAPLAIN ---
Type of Pastoral Visit _x__ Initial Visit ___ Follow-up Visit ___ On-call Visit ___ General Patient Visit ___ Spiritual Assessment ___ Family Conference ___ Bereavement ___ Rapid Response ___ Code Blue ___ Other (describe below) Pastoral Care Referral From _x__ Patient ___ Family ___ Nurse ___ Physician ___ Needle Punch Operator ___ Trade Analyst ___ Other (describe below) Sacrament/Intervention _x__ Active listening ___ Anointing ___ Nondenominational ___ Bereavement ___ Communion _x__ Kimberly exploration ___ _x__ Life review _x__ Prayer ___ Reconciliation ___ Sacrament of Sick _x__ Supportive presence ___ Wedding ___ Other (describe below) Pastoral Comments patient engages in conversation but is quite slow in making remarks; pt answers questions appropriately; pt did indicate desire to be at home instead of in rehab but says he understands the importance of the therapy; patient gave lots of life review and in particular his working years; [place]; is at home and daughter is very close to them; pt has long relationship with a local mandaeism and sees kimberly as his first source of support; pt given time to talk about life, evaluated for coping, along with presence and prayer
[2023-04-12 19:25] VITALS: BP 132/42; PULSE 62; RESP 16; TEMP 36.9; O2SAT 95
[2023-04-12 20:32] VITALS: BP 132/42; PULSE 62
[2023-04-12] MEDS: QUEtiapine 25 MG Tablet PO (20:32)
[2023-04-12] MEDS: amLODIPine 2.5 MG Tablet PO (21:06)
[2023-04-12] MEDS: Atorvastatin Calcium 40 MG Tablet PO (21:06)
[2023-04-13 05:11] VITALS: BMI 23.1
[2023-04-13] MEDS: Acetaminophen 500 MG Tablet 1000 MG PO ×3 (05:33→21:45)
[2023-04-13] MEDS: Na Biphos/Potassium Phosphate PACKET 1 PACKET PO (05:33)
[2023-04-13 07:21] VITALS: BP 148/52; PULSE 64; RESP 16; TEMP 36.4; O2SAT 93
[2023-04-13 09:00] VITALS: BP 148/52; PULSE 64
[2023-04-13] MEDS: Cholecalciferol (Vit D3) 125 MCG CAPSULE (5,000 UNITS) PO (09:00)
[2023-04-13] MEDS: Sodium Chloride 1 GM Tablet 2 GM PO ×2 (09:00→19:51)
[2023-04-13] MEDS: amLODIPine 5 MG Tablet PO (09:00)
[2023-04-13] MEDS: Amox/Clavulanate 500 MG Tablet PO ×2 (09:00→18:21)
[2023-04-13] MEDS: Pantoprazole Sodium 20 MG Tablet PO (09:00)
[2023-04-13] MEDS: Clopidogrel Bisulfate 75 MG Tablet PO (09:00)
[2023-04-13] MEDS: Magnesium Chloride 64 MG Delay Rel.Tablet 128 MG PO (09:00)
[2023-04-13] MEDS: Metoprolol Tartrate 50 MG Tablet PO ×2 (09:00→19:50)
[2023-04-13] MEDS: Tamsulosin HCl 0.4 MG Capsule PO (09:00)
[2023-04-13] MEDS: Aspirin 81 MG TAB.CHEW PO (09:00)
--- NOTE | 2023-04-13 10:47 | PN_ITS ---
Subjective Subjective Day # 2 Augmentin. Afebrile VSS Maintaining appropriate oxygen saturation on RA Oral intake is good Weight is down 3 pounds since admission. Discussed with nursing - no problems that need addressed. Sleeping well at night. Reviewed the PT/OT/ST notes Medication list reviewed. All lab from yesterday was personally reviewed. Sodium is up to 132 with the addition of salt tablets to his drug regimen. Potassium is 4.2 and the BUN is 28 with a creatinine of 1.25 which is down from 1.3 on 04/10/2023. Calcium corrected for hypoalbuminemia is within normal limits and phosphorus is now normal following supplementation. Urine culture grew Proteus Mirablis and is is sensitive to everything except Nitrofurantoin. Will continue Augmentin. Sav denies lightheadedness, vertigo, CP, SOB at rest, SOB with exertion, cough, nausea, vomiting, abd pain, diarrhea, constipation, calf pain and ankle swelling. He denies dysuria today. Objective Data Objective Data Vital Signs: Vital Signs Temp Pulse Resp BP Pulse Ox O2 Del Method 97.5 F L 64 16 148/52 H 93 Room Air 04/13/23 07:21 04/13/23 09:00 04/13/23 07:21 04/13/23 09:00 04/13/23 07:21 04/13/23 07:21 Oxygen Delivery Method Room Air Weight: 152 lb 8.958 oz Body Mass Index (BMI) 23.1 Intake & Output: Intake and Output for Last 24 Hours 04/11/23 04/12/23 04/13/23 23:59 23:59 23:59 Intake Total 1470 / 1470 1200 / 1200 80 / 80 Output Total 1200 / 1200 1100 / 1100 Balance 270 / 270 100 / 100 80 / 80 Lab / Micro Data 04/10/23 10:30 04/12/23 05:29 Micro: Microbiology 04/11/23 18:00 Urine, Random Urine Culture - Final Proteus mirabilis 04/08/23 15:50 Stool Stool Occult Blood (JANA) - Final Physical Exam Const alert and no apparent distress General Appearance: cooperative HEENT Mouth: dry mucous membranes Resp normal respiratory effort, no use of accessory muscles and clear to auscultation bilaterally Effort and Inspection: Negative for tachypneic or labored Cardio regular rate, regular rhythm and no gallops GI normal to inspection, nondistended, normoactive bowel sounds, non-tender and non-distended GI Narrative: no guarding with palpation Extremity Negative for no calf tenderness General Extremity: Negative for edema Skin General Skin Exam: no breakdown Rashes: no rashes Psych affect normal Assessment & Plan Assessment/Plan (1) Debility: (2) Stroke/cerebrovascular accident: QUALIFIERS: CVA mechanism: unspecified Qualified Code(s): I63.9 - Cerebral infarction, unspecified 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 Continue therapy 2. Continue Augmentin for a total of 7 days 3. Recheck a BMP in 4 to 5 days. 4. Encouraged increased fluid intake. Charges/Coding Visit Charges Inpatient E&M: 02014 Subs Hosp L2
[2023-04-13 19:25] VITALS: BP 125/63; PULSE 71; RESP 16; TEMP 36.6; O2SAT 92
[2023-04-13] MEDS: QUEtiapine 25 MG Tablet PO (19:44)
[2023-04-13] MEDS: 0.9% Saline Lock 10 ML Syringe IV (19:44)
[2023-04-13] MEDS: Atorvastatin Calcium 40 MG Tablet PO (19:49)
[2023-04-13 19:50] VITALS: PULSE 85
[2023-04-13] MEDS: amLODIPine 2.5 MG Tablet PO (19:50)
[2023-04-13 19:57] VITALS: PULSE 85; RESP 16; O2SAT 94
[2023-04-14 05:57] VITALS: BMI 23.0
[2023-04-14] MEDS: Acetaminophen 500 MG Tablet 1000 MG PO ×3 (06:18→20:47)
[2023-04-14 07:27] VITALS: BP 133/49; PULSE 71; RESP 16; TEMP 36.9; O2SAT 93
[2023-04-14] MEDS: Tamsulosin HCl 0.4 MG Capsule PO (08:16)
[2023-04-14] MEDS: Amox/Clavulanate 500 MG Tablet PO ×2 (08:16→17:14)
[2023-04-14] MEDS: Aspirin 81 MG TAB.CHEW PO (08:16)
[2023-04-14] MEDS: Sodium Chloride 1 GM Tablet 2 GM PO ×2 (08:17→20:46)
[2023-04-14] MEDS: Magnesium Chloride 64 MG Delay Rel.Tablet 128 MG PO (08:17)
[2023-04-14] MEDS: Pantoprazole Sodium 20 MG Tablet PO (08:17)
[2023-04-14] MEDS: Clopidogrel Bisulfate 75 MG Tablet PO (08:17)
[2023-04-14] MEDS: Cholecalciferol (Vit D3) 125 MCG CAPSULE (5,000 UNITS) PO (08:17)
[2023-04-14 08:18] VITALS: BP 133/49; PULSE 71
[2023-04-14] MEDS: Metoprolol Tartrate 50 MG Tablet PO ×2 (08:18→20:45)
[2023-04-14] MEDS: amLODIPine 5 MG Tablet PO (08:18)
[2023-04-14] MEDS: Lidocaine 5% Patch 1 PATCH TOPICAL (08:20)
[2023-04-14 20:17] VITALS: BP 131/56; PULSE 72; RESP 16; TEMP 37.1; O2SAT 95
[2023-04-14 20:30] VITALS: PULSE 80; RESP 16; O2SAT 94
[2023-04-14 20:45] VITALS: PULSE 72
[2023-04-14] MEDS: Atorvastatin Calcium 40 MG Tablet PO (20:45)
[2023-04-14] MEDS: QUEtiapine 25 MG Tablet PO (20:45)
[2023-04-14] MEDS: 0.9% Saline Lock 10 ML Syringe IV (20:48)
[2023-04-14] MEDS: amLODIPine 2.5 MG Tablet PO (20:48)
[2023-04-15] MEDS: Acetaminophen 500 MG Tablet 1000 MG PO ×3 (05:00→21:57)
[2023-04-15 06:00] VITALS: BMI 23.1
[2023-04-15] MEDS: Aspirin 81 MG TAB.CHEW PO (08:16)
[2023-04-15] MEDS: Amox/Clavulanate 500 MG Tablet PO ×2 (08:16→17:02)
[2023-04-15] MEDS: Pantoprazole Sodium 20 MG Tablet PO (08:16)
[2023-04-15] MEDS: Tamsulosin HCl 0.4 MG Capsule PO (08:16)
[2023-04-15] MEDS: Magnesium Chloride 64 MG Delay Rel.Tablet 128 MG PO (08:17)
[2023-04-15] MEDS: Lidocaine 5% Patch 1 PATCH TOPICAL (08:17)
[2023-04-15] MEDS: Cholecalciferol (Vit D3) 125 MCG CAPSULE (5,000 UNITS) PO (08:17)
[2023-04-15] MEDS: Sodium Chloride 1 GM Tablet 2 GM PO ×2 (08:18→20:26)
[2023-04-15 08:19] VITALS: PULSE 78
[2023-04-15] MEDS: Metoprolol Tartrate 50 MG Tablet PO ×2 (08:19→20:25)
[2023-04-15] MEDS: Clopidogrel Bisulfate 75 MG Tablet PO (08:20)
[2023-04-15] MEDS: amLODIPine 5 MG Tablet PO (08:20)
[2023-04-15] MEDS: 0.9% Saline Lock 10 ML Syringe IV (08:23)
[2023-04-15 10:00] VITALS: BP 118/72; PULSE 64; RESP 16; TEMP 37; O2SAT 96
[2023-04-15 20:25] VITALS: PULSE 76
[2023-04-15] MEDS: Atorvastatin Calcium 40 MG Tablet PO (20:25)
[2023-04-15] MEDS: QUEtiapine 25 MG Tablet PO (20:25)
[2023-04-15] MEDS: amLODIPine 2.5 MG Tablet PO (20:26)
[2023-04-15 20:39] VITALS: BP 126/58; PULSE 70; RESP 16; TEMP 36.8; O2SAT 98
[2023-04-15 22:00] VITALS: PULSE 70; RESP 15; O2SAT 98
[2023-04-16 06:00] VITALS: BMI 23.7
[2023-04-16] MEDS: Acetaminophen 500 MG Tablet 1000 MG PO ×3 (06:15→21:52)
[2023-04-16] MEDS: 0.9% Saline Lock 10 ML Syringe IV ×3 (06:20→20:05)
[2023-04-16 07:25] VITALS: BP 133/75; PULSE 62; RESP 17; TEMP 36.7; O2SAT 93
[2023-04-16 08:16] VITALS: BP 133/75; PULSE 62
[2023-04-16] MEDS: Magnesium Chloride 64 MG Delay Rel.Tablet 128 MG PO (08:16)
[2023-04-16] MEDS: Metoprolol Tartrate 50 MG Tablet PO ×2 (08:16→20:06)
[2023-04-16] MEDS: Clopidogrel Bisulfate 75 MG Tablet PO (08:16)
[2023-04-16] MEDS: amLODIPine 5 MG Tablet PO (08:16)
[2023-04-16] MEDS: Sodium Chloride 1 GM Tablet 2 GM PO ×2 (08:16→20:09)
[2023-04-16] MEDS: Tamsulosin HCl 0.4 MG Capsule PO (08:17)
[2023-04-16] MEDS: Cholecalciferol (Vit D3) 125 MCG CAPSULE (5,000 UNITS) PO (08:17)
[2023-04-16] MEDS: Amox/Clavulanate 500 MG Tablet PO ×2 (08:17→16:23)
[2023-04-16] MEDS: Pantoprazole Sodium 20 MG Tablet PO (08:17)
[2023-04-16] MEDS: Aspirin 81 MG TAB.CHEW PO (08:18)
[2023-04-16 19:00] VITALS: BP 128/61; PULSE 61; RESP 17; TEMP 36.2; O2SAT 96
[2023-04-16] MEDS: QUEtiapine 25 MG Tablet PO (20:05)
[2023-04-16 20:06] VITALS: PULSE 69
[2023-04-16] MEDS: Atorvastatin Calcium 40 MG Tablet PO (20:06)
[2023-04-16] MEDS: amLODIPine 2.5 MG Tablet PO (20:08)
[2023-04-16 20:14] VITALS: PULSE 69; RESP 17; O2SAT 96
[2023-04-17] MEDS: Acetaminophen 500 MG Tablet 1000 MG PO ×3 (05:00→19:57)
[2023-04-17 06:00] VITALS: BMI 23.4
[2023-04-17 07:03] VITALS: BP 138/60; PULSE 60; RESP 16; TEMP 36.8; O2SAT 93
[2023-04-17] MEDS: Lidocaine 5% Patch 1 PATCH TOPICAL (07:36)
[2023-04-17 07:37] VITALS: BP 138/60; PULSE 60
[2023-04-17] MEDS: Sodium Chloride 1 GM Tablet 2 GM PO ×2 (07:37→19:56)
[2023-04-17] MEDS: Metoprolol Tartrate 50 MG Tablet PO ×2 (07:37→19:56)
[2023-04-17] MEDS: Pantoprazole Sodium 20 MG Tablet PO (07:37)
[2023-04-17] MEDS: amLODIPine 5 MG Tablet PO (07:37)
[2023-04-17] MEDS: Clopidogrel Bisulfate 75 MG Tablet PO (07:37)
[2023-04-17] MEDS: Cholecalciferol (Vit D3) 125 MCG CAPSULE (5,000 UNITS) PO (07:37)
[2023-04-17] MEDS: Magnesium Chloride 64 MG Delay Rel.Tablet 128 MG PO (07:37)
[2023-04-17] MEDS: Amox/Clavulanate 500 MG Tablet PO ×2 (07:37→16:55)
[2023-04-17] MEDS: Tamsulosin HCl 0.4 MG Capsule PO (07:38)
[2023-04-17] MEDS: Aspirin 81 MG TAB.CHEW PO (07:38)
[2023-04-17 09:43] VITALS: BMI 23.3
--- NOTE | 2023-04-17 10:16 | PCM.PROGNOTE ---
Subjective Subjective Afebrile VSS Maintaining appropriate oxygen saturation on RA Oral intake is good. Discussed with nursing - no problems that need addressed Reviewed the PT/OT/ST notes Medication list reviewed. Sav denies lightheadedness, vertigo, CP, SOB at rest, SOB with exertion, cough, nausea, vomiting, abd pain, diarrhea, constipation, dysuria, calf pain and ankle swelling. He tells me that he is sleeping very well at night. Objective Data Objective Data Vital Signs: Vital Signs Temp Pulse Resp BP Pulse Ox O2 Del Method 98.3 F 60 16 138/60 H 93 Room Air 04/17/23 07:03 04/17/23 07:37 04/17/23 07:03 04/17/23 07:37 04/17/23 07:03 04/17/23 07:03 Oxygen Delivery Method Room Air Weight: 202 lb 13.204 oz Body Mass Index (BMI) 30.8 Intake & Output: Intake and Output for Last 24 Hours 04/15/23 04/16/23 04/17/23 23:59 23:59 23:59 Intake Total 1340 / 1340 1420 / 1420 180 / 180 Output Total 1100 / 1100 900 / 900 300 / 300 Balance 240 / 240 520 / 520 -120 / -120 Lab / Micro Data 04/10/23 10:30 04/12/23 05:29 Micro: Microbiology 04/11/23 18:00 Urine, Random Urine Culture - Final Proteus mirabilis 04/08/23 15:50 Stool Stool Occult Blood (JANA) - Final Physical Exam Const alert, oriented x3 and no apparent distress Constitutional Narrative: General Appearance: cooperative Orientation / Consciousness: confused HEENT moist oral mucous membranes Eyes EOMs intact bilaterally Eyes Narrative: Pupils are reactive to light bilaterally Neck supple, no JVD and No nodes Resp normal respiratory effort, no use of accessory muscles and clear to auscultation bilaterally Resp Narrative: No conversational dyspnea. No cough. Effort and Inspection: Negative for tachypneic or labored Cardio regular rate, regular rhythm and no gallops Cardio Narrative: Now that he is better hydrated I can hear a diastolic MM at the LLSB and the apex. 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 GI normal to inspection, nondistended, normoactive bowel sounds, non-tender and non-distended GI Narrative: no guarding with palpation Extremity Negative for no calf tenderness General Extremity: Negative for edema Skin Skin Narrative: He has a bandage on the L elbow from an abrasion sustained in a fall at the previous hospital. 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 Due to hyponatremia. (9) Hyponatremia: (10) Normochromic normocytic anemia: (11) Orthostatic hypotension: (12) Prerenal azotemia: (13) Hyperglycemia: (14) Hypertension: QUALIFIERS: Hypertension type: primary hypertension Qualified Code(s): I10 - Essential (primary) hypertension (15) Cystitis: PLAN: Due to Proteus mirabilis. PLAN: Plan 1. Continue therapy 2. Continue Augmentin for a total of 7 days 3. Decrease Seroquel at at bedtime to 12.5 mg 4. BMP, magnesium and CBC without differential ordered for today-await results to make any changes in the medications. Charges/Coding Visit Charges Inpatient E&M: 74320 Subs Hosp L2
[2023-04-17 11:21] LABS: Hematocrit 38.3 % (40-54); Hemoglobin 12.2 g/dL (13.0-16.5); Mean Corp Hgb Conc 31.9 g/dL (32-36); Mean Corpuscular Hgb 30.3 pg (27.0-32.0); Mean Corpuscular Volume 95.3 fL (80-94); Mean Platelet Vol. 9.7 fl (6.2-12.0); Platelet Count 334 K/mm3 (150-450); RBC Distribution Width CV 14.9 % (11.6-14.6); RBC Distribution Width SD 52.3 fl (35.1-43.9); Red Blood Count 4.02 M/mm3 (4.6-6.2); White Blood Count 8.4 K/mm3 (4.4-11.0)
[2023-04-17 11:52] LABS: Anion Gap 3 (5-15); BUN 31 mg/dL (7-18); BUN/Creat Ratio 23.5 RATIO (10-20); Chloride 104 mmol/L (98-107); Creatinine, Serum 1.32 mg/dL (0.70-1.30); EST Glomerular Filtration Rate 55 mL/min (>60); Est Glom Filt Rate - Afr Amer 66 mL/min (>60); Estimated Creatinine Clearance 38.86 ml/min; Glucose 178 mg/dL (74-106); Magnesium 2.2 mg/dL (1.6-2.6); Sodium Level 135 mmol/L (136-145)
--- NOTE | 2023-04-17 12:50 | CASEMGMT ---
Addendum entered by Evelyn Vallejo 04/18/23 09:42: [facility] accept with [facility] 04/20 Addendum entered by Evelyn Vallejo 04/17/23 16:44: [facility] is unable to accept. SW phoned referral to [facility]. Addendum entered by Evelyn Vallejo 04/17/23 15:24: SW updated pt/family that insurance approved with [employer]D 04/19. provided HHC choices - [facility], [facility], [place]. completed therapy training and is very pleased with pt's levels. Dtr, pt and requesting DC 04/19. IDT agreeable. SW sent referrals to all [facility] agencies. Dtr requesting FWW. SW sent referral to [facility] via [facility]. and dtr to transport. Plan: DC home with 04/19, HHC PT/OT/ST, FWW Evelyn Vallejo, GUCCI HDEZ Original Note: Social Work IDT met with patient, and dtr for Team meeting. Discussed patient's progress in PT/OT/ST/SN. [facility]17 and insurance requesting DC plans with anticipating DC for 04/18. SW inquired to family as pt needs assistance with dressing. can assist. Family agreeable for DC home with skilled HHC. SW to coordinate PT/OT/ST. SW provided printed list of skilled HHC PT/OT/ST. No DME needs. Plan: DC home with , C PT/OT/ST GUCCI Hendrix
[2023-04-17 19:01] VITALS: BP 134/52; PULSE 66; RESP 17; TEMP 36.9; O2SAT 96
[2023-04-17 19:56] VITALS: PULSE 66
[2023-04-17] MEDS: Atorvastatin Calcium 40 MG Tablet PO (19:56)
[2023-04-17] MEDS: amLODIPine 2.5 MG Tablet PO (19:56)
[2023-04-17] MEDS: QUEtiapine 25 MG Tablet PO (19:56)
[2023-04-18 06:00] VITALS: BMI 23.4
[2023-04-18] MEDS: Acetaminophen 500 MG Tablet 1000 MG PO ×3 (06:30→20:57)
[2023-04-18 07:42] VITALS: BP 135/66; PULSE 64; RESP 16; TEMP 36.7; O2SAT 92
[2023-04-18 09:01] VITALS: BP 135/66; PULSE 64
[2023-04-18] MEDS: Sodium Chloride 1 GM Tablet 2 GM PO ×2 (09:01→20:57)
[2023-04-18] MEDS: Pantoprazole Sodium 20 MG Tablet PO (09:01)
[2023-04-18] MEDS: amLODIPine 5 MG Tablet PO (09:01)
[2023-04-18] MEDS: Metoprolol Tartrate 50 MG Tablet PO ×2 (09:01→20:57)
[2023-04-18] MEDS: Cholecalciferol (Vit D3) 125 MCG CAPSULE (5,000 UNITS) PO (09:01)
[2023-04-18] MEDS: Amox/Clavulanate 500 MG Tablet PO ×2 (09:01→17:03)
[2023-04-18] MEDS: Magnesium Chloride 64 MG Delay Rel.Tablet 128 MG PO (09:02)
[2023-04-18] MEDS: Tamsulosin HCl 0.4 MG Capsule PO (09:03)
[2023-04-18] MEDS: Aspirin 81 MG TAB.CHEW PO (09:03)
[2023-04-18] MEDS: Clopidogrel Bisulfate 75 MG Tablet PO (09:04)
[2023-04-18] MEDS: 0.9% Saline Lock 10 ML Syringe IV (14:39)
[2023-04-18 19:28] VITALS: BP 137/64; PULSE 66; RESP 16; TEMP 36.7; O2SAT 96
[2023-04-18] MEDS: QUEtiapine 25 MG Tablet PO (20:55)
[2023-04-18 20:57] VITALS: BP 137/64; PULSE 66
[2023-04-18] MEDS: amLODIPine 2.5 MG Tablet PO (20:57)
[2023-04-18] MEDS: Atorvastatin Calcium 40 MG Tablet PO (20:58)
[2023-04-19] MEDS: Acetaminophen 500 MG Tablet 1000 MG PO (05:02)
[2023-04-19 05:04] VITALS: BMI 23.4
[2023-04-19 07:49] VITALS: BP 131/63; PULSE 64; RESP 15; TEMP 36.7; O2SAT 94
[2023-04-19 08:24] VITALS: BP 131/63; PULSE 64
[2023-04-19] MEDS: Aspirin 81 MG TAB.CHEW PO (08:24)
[2023-04-19] MEDS: Pantoprazole Sodium 20 MG Tablet PO (08:24)
[2023-04-19] MEDS: Sodium Chloride 1 GM Tablet 2 GM PO (08:24)
[2023-04-19] MEDS: Cholecalciferol (Vit D3) 125 MCG CAPSULE (5,000 UNITS) PO (08:24)
[2023-04-19] MEDS: Metoprolol Tartrate 50 MG Tablet PO (08:24)
[2023-04-19] MEDS: Clopidogrel Bisulfate 75 MG Tablet PO (08:24)
[2023-04-19] MEDS: Magnesium Chloride 64 MG Delay Rel.Tablet 128 MG PO (08:24)
[2023-04-19] MEDS: amLODIPine 5 MG Tablet PO (08:24)
[2023-04-19] MEDS: Tamsulosin HCl 0.4 MG Capsule PO (08:25)
--- NOTE | 2023-04-19 11:14 | PCM.DC ---
Discharge Instructions Diet Discharge Diet: - (Resume the diet you were on prior to admission to the hospital for stroke. ) Activity Discharge Activity: Use Walker (You have walked on rehab without an assistive device such as a walker or cane and this would be fine in your house. When you are outside your home I suggest a walker or cane, katja if you are walking on uneven surfaces for greater stability to prevent falls, at least for a few weeks until you are str) Weight Bearing Status: Full weight bearing Dressing / Incision Call your doctor if you observe: Fever of 101 or Higher, Inability to urinate, Shortness of breath, Dizziness, Fainting spells, Swelling in the ankles, Chest pain, Increased palpitations (irregular heartbeat), Calf discomfort, Uncontrolled pain and - (STROKE symptoms: facial droop, slurred speech, inability to get words out, weakness on 1 side of the body and not the other, numbness on 1 side of the body and not the other, inability to maintain your balance sitting or standing, vertigo. ) Follow Up Care Please Follow Up With: PCP When: Appointments have been made for you and are listed at the end of this document. Test Results: Test results from this visit will be discussed in further detail at your follow-up appointment, if applicable. Pending Tests Upon Discharge: none. Discharge Plan Admission Admit Date/Time: 04/06/23 19:45 Primary Reason for Your Visit: Post stroke debility. Attending Provider: Lily Braden Primary Care Provider: Walter Loya Instructions Patient Instructions: Effects of a Stroke on the ..., Discharge Instructions for Stroke, AFib Additional Instructions / Restrictions: 1. Sav, you have made excellent progress in therapy. We have all appreciated your willingness to try anything we throw at you. You are now walking without a cane or a walker. You sometimes veer to the right or left but, you have not lost your balance. Walking in your house without a cane or a walker is fine BUT, if you are outside, katja if you are walking on uneven surfaces, I recommend you use a walker or a cane at least until you have a few more weeks of therapy. 2. When you first came to rehab you were very confused. This was because the sodium in your blood was only 124 (normal is 135-145). Low sodium can lead to swelling in the brain.....strokes cause swelling also. The low sodium was in part due to dehydration because you had not been eating or drinking well but, it was also related to the stroke. Strokes can cause low sodium in some people. you sodium most recently was 135 and this is normal You are on salt tabs to keep the sodium within normal limits. I suspect these could be weaned off in a few weeks. Your PCP can work on this with you. I am giving you a lab requisition to have the sodium checked as an OP next Monday. Low sodium causes weakness, fatigue, confusion and if the sodium is low enough it can cause seizures. 3. You had a CTA of your head at the other hospital. This is a CT scan with contrast and it looks at the circulation in the brain. You have no areas of significant stenosis......in other words no areas of significant narrowing of the arteries. There is some disease in the Bilateral carotid arteries in your neck but it is less than 50% and we do not start worrying about narrowing until it is >60%. Eating a low fat diet and taking your medication will help to prevent this from increasing. 4. The MRI of the brain not only showed the recent stroke but, it showed evidence of prior strokes. There was evidence of small foci of previous infarcts/microvascular ischemia along the right lateral temporal/occipital junction and in the right middle cerebral head. There were also small subacute infarcts in the right cerebellar hemisphere and evidence of chronic lacunar infarcts in both cerebellar hemispheres. Some strokes are very small and you likely did not have any significant symptoms. When you have evidence of many small strokes in several different areas of the brain we begin to worry that you may have attrial fibrillation or AFIB. AFIB is a problem with the rhythm of the heart and it increases risk for stroke due to small clots that form in the heart. I have given you some literature that explains AFIB. Your heart has been regular when I listen to you but, AFIB can be paroxysmal. It is for this reason that I am going to send you home with a heart monitor that you will wear for a month. It is small and unobtrusive and it is attached to the R chest. You will be sent this monitor in the mail. I will have the results sent to Dr. Osman who is the neurologist you will see post discharge from rehab. IF you are having AFIB then you will need to be on an anticoagulant. 5. It has been a pleasure meeting you and your family Sav. If you or your family has any questions or concerns after you leave rehab please do not hesitate to call me. I will be out of the office for a few days the end of the week but, I am reachable by cell phone. OFFICE: [phone] CELL: [phone]. Discharge Orders/Prescriptions Prescriptions: New amlodipine 5 mg Tablet 5 mg PO DAILY Qty: 45 0RF Rx Instructions: Take a whole tab in the AM and 1/2 tab at bedtime. acetaminophen 500 mg Tablet 1,000 mg PO Q8H PRN PRN (Reason: pain 1-10) Qty: 1 0RF quetiapine 25 mg Tablet 25 mg PO 1999 Qty: 7 0RF Rx Instructions: take 1/2 tab at bedtime until gone. loperamide 2 mg Capsule 2 mg PO Q4H PRN PRN (Reason: DIARRHEA) Qty: 60 0RF sodium chloride 1,000 mg Tablet,Soluble 2,000 mg PO BID Qty: 60 0RF Mag 64 64 mg Tablet,Delayed Release (Dr/Ec) 128 mg PO DAILY Qty: 30 0RF Continued cholecalciferol (vitamin D3) [Vitamin D3] 125 mcg (5,000 unit) tablet 5,000 unit PO DAILY Patient Comments: 1 tablet by mouth atorvastatin 40 mg tablet 40 mg PO QHS Qty: 30 0RF lidocaine 4 % adhesive patch,medicated 1 patch topical DAILY Qty: 14 0RF Rx Instructions: Apply in the AM and remove at bedtime. clopidogrel [Plavix] 75 mg tablet 75 mg PO DAILY Qty: 5 0RF Rx Instructions: When you run out of this medication you will quit taking it. aspirin 81 mg capsule 81 mg PO DAILY Qty: 1 0RF Rx Instructions: Take with food. Changed tamsulosin 0.4 mg capsule 0.4 mg PO DAILY Qty: 30 0RF metoprolol tartrate 50 mg tablet 50 mg PO BID Qty: 60 0RF Discontinued amlodipine 5 mg tablet PO DAILY Patient Comments: TAKE 1 TABLET BY MOUTH EVERY DAY methocarbamol 500 mg tablet 500 mg PO BID oxycodone 5 mg capsule 5 mg PO Q6H PRN (Reason: pain) Other Ambulatory Orders: Hemoglobin A1c (Routine) Timeframe: 20230424 Facility: [facility] - Location: Laboratory Ordered By: Dr. Lily Braden Basic Metabolic Profile (BMP) (Routine) Timeframe: [id number] Facility: [facility] - Location: Laboratory Ordered By: Dr. Lily Braden 30 Day Event Recorder Preventi (Routine) Timeframe: 1 Day Facility: [facility] - Location: Cardiovascular Services Ordered By: Dr. Lily Braden Referrals / Follow Up: Quintin Huggins MD [Other] - 05/15/23 3:30 pm Dariusz Forde MD [Other] - 06/09/23 2:20 pm (Neuro ) Krystin Ortiz [Other] - 04/24/23 2:00 pm (PCP ) Disposition Disposition (needs filled in before D/C Order can be placed): Home Health Service
--- NOTE | 2023-04-19 12:16 | EX.DISCHREH ---
Providers Date of Admission: 04/06/23 Date of Discharge: 04/19/23 Primary Care Physician: Dr. Walter Loya MD none Reason For Visit: STROKE Diagnosis Discharge Diagnosis (1) Debility: Status: Acute Code(s): R53.81 - Other malaise (2) Stroke/cerebrovascular accident: Status: Acute Code(s): I63.9 - Cerebral infarction, unspecified Qualifiers: CVA mechanism: unspecified Qualified Code(s): I63.9 - Cerebral infarction, unspecified Plan: Follow up scheduled with Dr. Dariusz Osman. 30 days event monitor at discharge. Continue dual antiplatelet agents for 3 weeks from the date of the stroke and then DC Plavix and continue aspirin 81 mg daily. Continue statin. No indiction for anticoagulation at this time but, I think he may be having PAF because he has multiple small foci of prior lacunar infarcts in different areas of the brain with no significant intracerebral arterial stenoses or significant stenosis of either carotid artery. (3) Speech apraxia: Status: Resolved Code(s): R48.2 - Apraxia Plan: Resolved after correction of sodium. Will continue ST post DC for memory work. (4) Left-sided neglect: Status: Acute Code(s): R41.4 - Neurologic neglect syndrome Plan: Much improved and the hemianopia that was present at admission has resolved. Extinction has also resolved. (5) Hemianopia, homonymous, left: Status: Resolved Code(s): H53.462 - Homonymous bilateral field defects, left side (6) Extinction to double simultaneous stimulation: Status: Resolved Code(s): R29.818 - Other symptoms and signs involving the nervous system (7) Generalized weakness: Status: Acute Code(s): R53.1 - Weakness (8) Acute metabolic encephalopathy: Status: Resolved Code(s): G93.41 - Metabolic encephalopathy Plan: Resolved. Due to hyponatremia. (9) Hyponatremia: Status: Acute Code(s): E87.1 - Hypo-osmolality and hyponatremia Plan: Last sodium was 135 but, this was drawn while he is still taking salt tabs 2 gm BID. Will recheck BMP on 04/24/23 and if the sodium is WNL decrease the salt tabs to 2 gm once daily. (10) Normochromic normocytic anemia: Status: Acute Code(s): D64.9 - Anemia, unspecified (11) Prerenal azotemia: Status: Resolved Code(s): R79.89 - Other specified abnormal findings of blood chemistry (12) Hyperglycemia: Status: Acute Code(s): R73.9 - Hyperglycemia, unspecified Plan: Fastings are normal but, post prandial BS's are still elevated. HGBA1C on 04/24/23. (13) Hypertension: Status: Chronic Code(s): I10 - Essential (primary) hypertension Qualifiers: Hypertension type: primary hypertension Qualified Code(s): I10 - Essential (primary) hypertension Plan: well controlled (14) Cystitis: Status: Resolved Code(s): N30.90 - Cystitis, unspecified without hematuria Plan: Due to Proteus mirabilis. Finished 7 days of Augmentin. (15) Left rib fracture: Status: Acute Code(s): S22.32XA - Fracture of one rib, left side, initial encounter for closed fracture Plan: Pain has improved with Tylenol and a Lidocaine patch which will be continued at [place]. Plan 1. DC home 2. Decrease the Seroquel to 12.5 mg @ HS for 1-2 weeks and then DC 3. DME - FWW to be delivered by [facility] 4. HHC at [place] 5. With Dr. Loya and Dr. Osman-appointments have been scheduled. 6. 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 7. BMP and hemoglobin A1c on 04/24/2023. Medications at Discharge Home Medications cholecalciferol (vitamin D3) 125 mcg (5,000 unit) tablet (Vitamin D3) 5,000 unit PO DAILY SUPPLEMENT 04/06/23 acetaminophen 500 mg tablet 1,000 mg (2 x 500 mg) PO Q8H PRN PRN pain 1-10 #1 TAB 04/19/23 amlodipine 5 mg tablet 5 mg PO DAILY #45 tabs 04/19/23 aspirin 81 mg capsule 81 mg PO DAILY HEART HEALTH #1 cap 04/19/23 atorvastatin 40 mg tablet 40 mg PO QHS CHOLESTEROL #30 tabs 04/19/23 clopidogrel 75 mg tablet (Plavix) 75 mg PO DAILY HEART #5 tabs 04/19/23 lidocaine 4 % topical patch 1 patch topical DAILY RIB PAIN #14 ea 04/19/23 loperamide 2 mg capsule 2 mg PO Q4H PRN PRN DIARRHEA #60 caps 04/19/23 magnesium chloride 64 mg (magnesium chloride) tablet,delayed release (Mag 64) 128 mg (2 x 64 mg) PO DAILY #30 tabs 04/19/23 metoprolol tartrate 50 mg tablet 50 mg PO BID HTN #60 tabs 04/19/23 quetiapine 25 mg tablet 25 mg PO 2000 #7 tabs 04/19/23 sodium chloride 1,000 mg soluble tablet 2,000 mg (2 x 1,000 mg) PO BID #60 tabs 04/19/23 tamsulosin 0.4 mg capsule 0.4 mg PO DAILY TREAT ENLARGED PROSTRATE #30 caps 04/19/23 Hospital Course Operations None Procedures None Summary of Care Provided Minutes Spent on Discharge: 40 Hospital Course: SERGO ROSAS is a 88 YO M with a PMH of BPH (on tamsulosin), hypertension, abdominal aortic aneurysm, bilateral carotid stenosis (less than 40% bilaterally), celiac disease, diverticulosis, elevated hemoglobin A1c, internal hemorrhoids, stage IIIa chronic renal failure, vitamin D deficiency and hyperlipidemia who presented to an ED on 04/01/2023 in the evening complaining of sudden onset of left arm weakness after going for a walk at approximately noon. He then took a nap and when he woke up the symptoms were mildly improved but still present. He had not taken any of his medications that day. NIHSS at admission to the emergency department was 0. CT head showed no evidence of an acute infarct or other acute parenchymal process. There was a small region of encephalomalacia and gliosis in the right frontal lobe. CTA showed no large vessel occlusion or high-grade stenosis. There was bilateral carotid artery disease estimated at 30 to 40% on the right and less than 30% on the left. Vertebral arteries were patent bilaterally. He was admitted to the hospital and started on aspirin, Plavix and atorvastatin. Echocardiogram showed the left ventricle to be normal in size with moderate concentric left ventricular hypertrophy and hyperdynamic systolic function with an EF estimated at 70 to ?5%. There was 2+ aortic regurgitation. There was no PFO. He became lightheaded and had a fall on 04/02/23 while standing at the sink brushing his teeth. He sustained a left elbow skin tear and mild superficial abrasion to the back of the head with an underlying hematoma. Neuro exam had not changed from that morning when he had mild left upper extremity weakness. The following morning he complained of left lateral thoracic pain. X-ray showed fractures of ribs 8 9 and 10 on the left with a small pneumothorax. On 04/03/2023 he had an MRI of the brain which showed an acute infarct of the right inferior parietal lobule. There was evidence of small foci of previous infarcts/microvascular ischemia along the right lateral temporal occipital junction and the right middle cerebral peduncle. There were small subacute infarcts in the right cerebellar hemisphere and evidence of chronic lacunar infarcts in both cerebellar hemispheres. There was suspected minimal petechial hemorrhage. While in the hospital he was seen by PT/OT/ST and acute rehab was recommended at [place]. I reviewed the therapy notes prior to DC and he had good participation in activities but was limited by pain in his ribs. The physical therapy problem list included decreased strength, functional mobility impairment and balance impairment. He exhibited some impulsive behavior and some left-sided neglect. He was transferred to [facility] acute rehab unit on 04/06/2023 for 3 hours of therapy daily to restore function and independence at or near his level prior to CVA. Sergo was quite confused at presentation to rehab. His family told me he had been getting progressively more confused over the preceding 2 days and they though it was the Gabapentin. Lab at admission showed a sodium of 124. The FENA was consistent with dehydration. He was hydrated with NS but, the sodium did not significantly change and with diarrhea and urine he was putting out nearly as much as we were putting in. He was changed to 3% NS and the sodium came up to 131 and 3% was discontinued. When the 3% was discontinued the sodium again dropped to 129 and he was started on salt tabs 2 GM TID. On 04/17/23 the sodium was 135 and he will be getting a BMP on 04/24/23. He was discharged on salt tabs 2 GM BID. This can likely be tapered off over the next couple weeks. I suspect the low sodium is not only related to dehydration at admission but, to cerebral salt wasting murali to the stroke. He was started on Seroquel at admission for confusion and restless with agitation during the night. At DC the dose was decreased to 12.5 mg at HS and if continues to do well at night can likely When the sodium came up to 130 he cognition dramatically improved and many of the neurologic deficits present at admission, such as hemianopia, extinction and ataxic resolved. CREAT over the past 6 years has ranged from 1.08-1.14. Creatinine at discharge is 1.32 with a GFR of 55 and a creatinine clearance of 38.86. FBS's have been WNL but, post prandial BS's have been up to 180. He will have a HGBA1C on 04/24/23 as well as the BMP. Hemoglobin at discharge is stable at 12.2. While on rehab Sergo c/o burning with urination and the UA was +. He was started on Augmentin and the urine culture grew Proteus mirabilis which was pansensitive except for resistance to nitrofurantoin. He received 7 days of Augmentin. Sergo did very well in therapy after the sodium improved. At the time of discharge he is independent with eating, grooming, upper body dressing, toileting, toilet transfer and lower dressing. He is supervision/set up for bathing and tub/shower transfer. He is able to do 5 sit to stands at standby assist in 30 seconds. He can negotiate a single curb step at mod I with a wheeled walker. He has ambulated up to 500 feet at standby assist with a wheeled walker. He has ambulated up to 326 feet with no assistive device at mod I on flat surfaces. Sergo was discharged on 04/19/2023 and will follow-up with his primary care physician, Dr. Walter Loya, and with Dr. Dariusz Osman from neurology. He was given a prescription for a 30-day event monitor since he has had multiple small infarcts and lacunar infarcts in different areas of the brain which raises a suspicion for atrial fibrillation. 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 He will remain on dual platelet agents for total of 21 days and then the Plavix will be discontinued. He was discharged on a statin. DME included a wheeled walker and he will have home health care for ongoing therapy. BMP and a hemoglobin A1c will be done as an outpatient on 04/24/2023. Physical Exam Const alert, oriented x3, no apparent distress and healthy appearing General Appearance: cooperative HEENT normocephalic and moist oral mucous membranes Eyes EOMs intact bilaterally Eyes Narrative: Pupils are reactive to light bilaterally Neck supple, no JVD, No nodes and no carotid bruits General: trachea midline Resp normal respiratory effort, normal air movement, no use of accessory muscles and clear to auscultation bilaterally Resp Narrative: No conversational dyspnea. No cough. Effort and Inspection: Negative for tachypneic or labored Cardio regular rate, regular rhythm, S1 normal heart sound, S2 normal heart sound, no rub and no gallops Cardio Narrative: He has a 3/6 GRANT at the LLSB, apex and 2nd RICS. No diastolic MM but, he is known to have AI. No ectopy. GI normal to inspection, nondistended, normoactive bowel sounds, soft to palpation, non-tender and non-distended GI Narrative: no guarding with palpation no CVA tenderness Extremity Negative for no calf tenderness Extremity Narrative: He has pain in the Left posterior thoracic area but he did not complain when I laid the stethoscope on his back. He is not splinting his respirations. the pain is much better than at admission. General Extremity: Negative for calf tenderness, clubbing, cyanosis or edema Skin no jaundice General Skin Exam: no breakdown Rashes: no rashes Neuro oriented x3, CN's II-XII intact bilaterally, no focal motor deficits and no sensory deficits noted Neuro Narrative: Extinction, hemianopia and ataxia have resolved. No tremors. Was able to name all objects shown to him and he has no dysarthria. Some short term memory difficulty from his baseline. Tongue protrudes on the midline and the palate elevates symmetrically. Ambulating without an AD on flat surfaces. Psych cooperative and affect normal Appearance: appropriate Attitude: calm and No agitated Activity / Motor Behavior: appropriate eye contact; Negative for psychomotor agitation, psychomotor slowing or disorganized Speech: normal speech Thought Content: No suicidality, No homicidality, No delusion(s) and No hallucination(s) Weight / BMI Weight Weight: 154 lb 5.177 oz Body Mass Index (BMI) 23.4 ABG / Lab / Microbiology Data 04/17/23 11:06 04/17/23 11:06 Microbiology: Microbiology 04/11/23 18:00 Urine, Random Urine Culture - Final Proteus mirabilis 04/08/23 15:50 Stool Stool Occult Blood (JANA) - Final Indicators for Scoring Admitted with or Primary Diagnosis of CVA/Stroke: Yes Hx of CVA/Stroke: Yes Modified Saji Score MRS Score at time of Evaluation: 2-Slight disability NIHSS NIHSS 1a. Level of Consciousness: Alert; keenly responsive 1b. LOC Questions: Answers BOTH questions correctly. 1c. LOC Commands: Performs both tasks correctly. 2. Best Gaze: Normal 3. Visual: No visual loss 4. Facial Palsy: Normal symmetrical movements 5a. Left Arm: No drift; arm holds 90 (or 45) degrees for full 10 seconds 5b. Right Arm: No drift; arm holds 90 (or 45) degrees for full 10 seconds 6a. Left Leg: No drift; leg holds 30-degree position for full 5 seconds 6b. Right Leg: No drift; leg holds 30-degree position for full 5 seconds 7. Limb Ataxia: Absent 8. Sensory: Normal; no sensory loss 9. Best Language: No aphasia; normal 10. Dysarthria: Normal 11. Extinction and Inattention: No abnormality Total: 0 Stroke Questions Stroke Team Activated: No D/C Instructions Discharge Diet: - (Resume the diet you were on prior to admission to the hospital for stroke. ) Weight Bearing Status: Full weight bearing Call your doctor if you observe: Fever of 101 or Higher, Inability to urinate, Shortness of breath, Dizziness, Fainting spells, Swelling in the ankles, Chest pain, Increased palpitations (irregular heartbeat), Calf discomfort, Uncontrolled pain and - (STROKE symptoms: facial droop, slurred speech, inability to get words out, weakness on 1 side of the body and not the other, numbness on 1 side of the body and not the other, inability to maintain your balance sitting or standing, vertigo. ) Pending Tests Upon Discharge: none. Please Follow Up With: PCP When: Appointments have been made for you and are listed at the end of this document. Meaningful Use Info Meaningful Use Diagnoses (Choose all that apply): Ischemic CVA CVA Therapy Assessed for PT,OT and/or ST?: Yes Ischemic Stroke Antithrombotic order at d/c?: Yes Dx of Atrial fib/flutter?: No Reason anticoagulant not ordered: Treatment not Indicated Statins at discharge?: Yes Primary Dx Acute Ischemic CVA?: Yes IV thrombolytic ordered during stay?: No Reason IV thrombolytic not ordered: Treatment not Indicated Discharge Plan Admission Admit Date/Time: 04/06/23 19:45 Primary Reason for Your Visit: Post stroke debility. Attending Provider: Lily Braden Primary Care Provider: Walter Loya Instructions Patient Instructions: Effects of a Stroke on the ..., Discharge Instructions for Stroke, AFib Additional Instructions / Restrictions: 1. Sergo, you have made excellent progress in therapy. We have all appreciated your willingness to try anything we throw at you. You are now walking without a cane or a walker. You sometimes veer to the right or left but, you have not lost your balance. Walking in your house without a cane or a walker is fine BUT, if you are outside, katja if you are walking on uneven surfaces, I recommend you use a walker or a cane at least until you have a few more weeks of therapy. 2. When you first came to rehab you were very confused. This was because the sodium in your blood was only 124 (normal is 135-145). Low sodium can lead to swelling in the brain.....strokes cause swelling also. The low sodium was in part due to dehydration because you had not been eating or drinking well but, it was also related to the stroke. Strokes can cause low sodium in some people. you sodium most recently was 135 and this is normal You are on salt tabs to keep the sodium within normal limits. I suspect these could be weaned off in a few weeks. Your PCP can work on this with you. I am giving you a lab requisition to have the sodium checked as an OP next Monday. Low sodium causes weakness, fatigue, confusion and if the sodium is low enough it can cause seizures. 3. You had a CTA of your head at the other hospital. This is a CT scan with contrast and it looks at the circulation in the brain. You have no areas of significant stenosis......in other words no areas of significant narrowing of the arteries. There is some disease in the Bilateral carotid arteries in your neck but it is less than 50% and we do not start worrying about narrowing until it is >60%. Eating a low fat diet and taking your medication will help to prevent this from increasing. 4. The MRI of the brain not only showed the recent stroke but, it showed evidence of prior strokes. There was evidence of small foci of previous infarcts/microvascular ischemia along the right lateral temporal/occipital junction and in the right middle cerebral head. There were also small subacute infarcts in the right cerebellar hemisphere and evidence of chronic lacunar infarcts in both cerebellar hemispheres. Some strokes are very small and you likely did not have any significant symptoms. When you have evidence of many small strokes in several different areas of the brain we begin to worry that you may have attrial fibrillation or AFIB. AFIB is a problem with the rhythm of the heart and it increases risk for stroke due to small clots that form in the heart. I have given you some literature that explains AFIB. Your heart has been regular when I listen to you but, AFIB can be paroxysmal. It is for this reason that I am going to send you home with a heart monitor that you will wear for a month. It is small and unobtrusive and it is attached to the R chest. You will be sent this monitor in the mail. I will have the results sent to Dr. Osman who is the neurologist you will see post discharge from rehab. IF you are having AFIB then you will need to be on an anticoagulant. 5. It has been a pleasure meeting you and your family Sergo. If you or your family has any questions or concerns after you leave rehab please do not hesitate to call me. I will be out of the office for a few days the end of the week but, I am reachable by cell phone. OFFICE: [phone] CELL: [phone]. Discharge Orders/Prescriptions Prescriptions: New amlodipine 5 mg Tablet 5 mg PO DAILY Qty: 45 0RF Rx Instructions: Take a whole tab in the AM and 1/2 tab at bedtime. acetaminophen 500 mg Tablet 1,000 mg PO Q8H PRN PRN (Reason: pain 1-10) Qty: 1 0RF quetiapine 25 mg Tablet 25 mg PO 1999 Qty: 7 0RF Rx Instructions: take 1/2 tab at bedtime until gone. loperamide 2 mg Capsule 2 mg PO Q4H PRN PRN (Reason: DIARRHEA) Qty: 60 0RF sodium chloride 1,000 mg Tablet,Soluble 2,000 mg PO BID Qty: 60 0RF Mag 64 64 mg Tablet,Delayed Release (Dr/Ec) 128 mg PO DAILY Qty: 30 0RF Continued cholecalciferol (vitamin D3) [Vitamin D3] 125 mcg (5,000 unit) tablet 5,000 unit PO DAILY Patient Comments: 1 tablet by mouth atorvastatin 40 mg tablet 40 mg PO QHS Qty: 30 0RF lidocaine 4 % adhesive patch,medicated 1 patch topical DAILY Qty: 14 0RF Rx Instructions: Apply in the AM and remove at bedtime. clopidogrel [Plavix] 75 mg tablet 75 mg PO DAILY Qty: 5 0RF Rx Instructions: When you run out of this medication you will quit taking it. aspirin 81 mg capsule 81 mg PO DAILY Qty: 1 0RF Rx Instructions: Take with food. Changed tamsulosin 0.4 mg capsule 0.4 mg PO DAILY Qty: 30 0RF metoprolol tartrate 50 mg tablet 50 mg PO BID Qty: 60 0RF Discontinued amlodipine 5 mg tablet PO DAILY Patient Comments: TAKE 1 TABLET BY MOUTH EVERY DAY methocarbamol 500 mg tablet 500 mg PO BID oxycodone 5 mg capsule 5 mg PO Q6H PRN (Reason: pain) Other Ambulatory Orders: Hemoglobin A1c (Routine) Timeframe: 20230424 Facility: [facility] - Location: Laboratory Ordered By: Dr. Lily Braden Basic Metabolic Profile (BMP) (Routine) Timeframe: 20230424 Facility: [facility] - Location: Laboratory Ordered By: Dr. Lily Braden 30 Day Event Recorder Preventi (Routine) Timeframe: 1 Day Facility: [facility] - Location: Cardiovascular Services Ordered By: Dr. Lily Braden Referrals / Follow Up: Quintin Huggins MD [Other] - 05/15/23 3:30 pm Dariusz Forde MD [Other] - 06/09/23 2:20 pm (Neuro ) Krystin Ortiz [Other] - 04/24/23 2:00 pm (PCP ) Disposition Disposition (needs filled in before D/C Order can be placed): Home Health Service Charges/Coding Visit Charges Inpatient E&M: 44531 Disch Hosp >30min
[2023-04-19 14:14] VITALS: BP 131/63; PULSE 64; RESP 15; TEMP 36.6; O2SAT 94
== END 2023-04-19 13:30 | disposition home health service (06) | DRG 56 ==
PROVIDERS: Admitting Provider Internal Medicine; PCP Family Medicine; Visit Provider Internal Medicine
DX: I69.334 Monoplegia of upper limb following cerebral infarction affecting left non-dominant side (principal); G93.41 Metabolic encephalopathy; E87.1 Hypo-osmolality and hyponatremia; H53.462 Homonymous bilateral field defects, left side; I48.0 Paroxysmal atrial fibrillation; E86.0 Dehydration; N18.31 Chronic kidney disease, stage 3a; I95.1 Orthostatic hypotension; I12.9 Hypertensive chronic kidney disease with stage 1 through stage 4 chronic kidney disease, or unspecified chronic kidney disease; E78.5 Hyperlipidemia, unspecified; W19.XXXD Unspecified fall, subsequent encounter; I69.398 Other sequelae of cerebral infarction; I69.393 Ataxia following cerebral infarction; I69.390 Apraxia following cerebral infarction; S22.32XD Fracture of one rib, left side, subsequent encounter for fracture with routine healing; S50.312D Abrasion of left elbow, subsequent encounter; Z79.82 Long term (current) use of aspirin; R73.9 Hyperglycemia, unspecified; N30.90 Cystitis, unspecified without hematuria; K90.0 Celiac disease; B96.4 Proteus (mirabilis) (morganii) as the cause of diseases classified elsewhere; N40.0 Benign prostatic hyperplasia without lower urinary tract symptoms; Z79.899 Other long term (current) drug therapy; Z79.02 Long term (current) use of antithrombotics/antiplatelets
CPT/HCPCS: 36415; 80048; 81001; 82040; 82274; 82570; 83735; 83930; 83935; 84100; 84300; 84439; 84443; 85014; 85018; 85025; 85027; 87077; 87086; 87088; 87186; 92507; 92523; 93005; 97110; 97112; 97116; 97129; 97130; 97162; 97166; 97530; 97535; 97802; J7030; A4216

== ENCOUNTER 2023-04-22 23:00 | Emergency (ER) | payer MEDICARE, SELFPAY ==
[2023-04-22 23:02] VITALS: BP 129/64; PULSE 67; RESP 15; TEMP 36.6; O2SAT 97
--- NOTE | 2023-04-22 23:19 | CT_ITS ---
STUDY: CT BRAIN WITHOUT CONTRAST REASON FOR EXAM: Male, 88 years old. Weakness RADIATION DOSAGE (If Supplied By Facility): CTDIvol = ( 44.99 ) mGy, DLP = ( 812.98 ) mGycm TECHNIQUE: Transaxial CT imaging of the brain was performed without administration of intravenous contrast material. Individualized dose optimization techniques were used for this CT. COMPARISON: No relevant priors. FINDINGS: Normal soft tissue structures. Normal calvarium. Normal size ventricles and extra-axial spaces for the patient''s age. There is a focus of age indeterminate low attenuation within the right frontal white matter that may represent age indeterminant ischemic change. However there are areas of somewhat ill-defined subcortical edema in the right posterior parietal and the occipital lobe with what appears to be associated punctate calcifications. Normal basal ganglia and thalami. Normal brainstem. Normal cerebellum. There is no definite intracranial hemorrhage. Normal visualized paranasal sinuses. CT/Brain/Head without Contrast IMPRESSION: There are 3 areas of low attenuation within the right hemisphere, 1 more anteriorly in the right frontal parietal region which may be chronic however findings are suspicious for possible acute subcortical edema within the right posterior parietal and occipital lobes which may represent ischemic change or potentially edema associated with metastatic foci. There is unusual associated punctate calcifications which could represents concern for possible underlying infection. Further evaluation with MRI with gadolinium N.B. : The above Results were Read Back by Arlen Salinas MD to Tom Mccall MD, and understanding confirmed on 04/23/2023 00:54:50 (ET). Electronically Signed: Arlen Salinas MD at 0:51 EDT ,
--- NOTE | 2023-04-22 23:19 | EKG12_ITS ---
Test Reason : WEAKNESS Blood Pressure : / mmHG Vent. Rate : 069 BPM Atrial Rate : 069 BPM P-R Int : 158 ms QRS Dur : 092 ms QT Int : 396 ms P-R-T Axes : 013 -23 009 degrees QTc Int : 424 ms Normal sinus rhythm Possible Left atrial enlargement Minimal voltage criteria for LVH, may be normal variant ( R in aVL ) Borderline ECG Confirmed by DARLENE BENITEZ, SVETLANA ([id number]), editor news BELEN AMAYA ([id number]) on 04/27/2023 8:34:42 AM Referred By: MICHELINE Confirmed By:SUZANNE COLON MD
--- NOTE | 2023-04-22 23:20 | EDS_ITS ---
HPI History of Present Illness Chief Complaint: Weakness Informant: patient, spouse/S.O. and family Narrative Narrative: Patient presents after an episode of vomiting this evening. I did review this patient's recent hospitalization and rehab record. He has been home for several days. He has been doing well. He has been getting stronger. He has been walking without the walker. He is taking his medications including Plavix aspirin and his salt tablets. This evening he got up to go brush his teeth. He was brushing his teeth and he got nauseated and vomited once. His 's states that she helped him sit down because he just seemed unsteady a little bit after this. But no focal deficit. Patient states he feels fine now. He is not even nauseated. He has no pains. He has no headache. He is acting normally per family. He did have some confusion in the hospital but this was mostly thought to be related to gabapentin. I also reviewed the notes and find out he had hyponatremia. This is due to be checked in a couple days with repeat labs. But he is taking his salt tablets. He basically feels baseline at this time and feels better than when he left rehab in the hospital. He is also going to be getting a heart monitor soon. There is suspicion that he might have had paroxysmal atrial fibrillation. But it sounds like Xarelto or Eliquis was withheld pending this diagnosis and also his MRI had hinted of the possibility of a small area of bleeding that made starting these meds high risk. [facility] Medical History AAA (abdominal aortic aneurysm) BPH (benign prostatic hyperplasia) Carotid stenosis, bilateral Celiac disease Diverticulosis Hyperlipidemia Hypertension Internal hemorrhoids Non-smoker Stroke/cerebrovascular accident Home Medications cholecalciferol (vitamin D3) 125 mcg (5,000 unit) tablet (Vitamin D3) 5,000 unit PO DAILY SUPPLEMENT 04/06/23 [History Last Taken Unknown] acetaminophen 500 mg tablet 1,000 mg (2 x 500 mg) PO Q8H PRN PRN pain 1-10 #1 TAB 04/19/23 [Rx Last Taken Unknown] amlodipine 5 mg tablet 5 mg PO DAILY #45 tabs 04/19/23 [Rx Last Taken Unknown] aspirin 81 mg capsule 81 mg PO DAILY HEART HEALTH #1 cap 04/19/23 [Rx Last Taken Unknown] atorvastatin 40 mg tablet 40 mg PO QHS CHOLESTEROL #30 tabs 04/19/23 [Rx Last T aken Unknown] clopidogrel 75 mg tablet (Plavix) 75 mg PO DAILY HEART #5 tabs 04/19/23 [Rx Last Taken Unknown] magnesium chloride 64 mg (magnesium chloride) tablet,delayed release (Mag 64) 128 mg (2 x 64 mg) PO DAILY #30 tabs 04/19/23 [Rx Last Taken Unknown] metoprolol tartrate 50 mg tablet 50 mg PO BID HTN #60 tabs 04/19/23 [Rx Last Taken Unknown] quetiapine 25 mg tablet 25 mg PO 2000 #7 tabs 04/19/23 [Rx Last Taken Unknown] sodium chloride 1,000 mg soluble tablet 2,000 mg (2 x 1,000 mg) PO BID #60 tabs 04/19/23 [Rx Last Taken Unknown] tamsulosin 0.4 mg capsule 0.4 mg PO DAILY TREAT ENLARGED PROSTRATE #30 caps 04/19/23 [Rx Last Taken Unknown] cephalexin 500 mg capsule 500 mg PO Q12 #14 CAPSULES 04/23/23 [Rx Last Taken Unknown] Allergy/AdvReac Type Severity Reaction Status Date / Time GLUTEN FREE AdvReac Intermediate GI DISTRESS Uncoded 04/06/23 23:52 Family History Father CVA (cerebral vascular accident) Sister Lupus (systemic lupus erythematosus) Brother Diabetes Brother Diabetes Surgical History H/O abdominal aortic aneurysm repair History of excision of lesion History of excision of lesion Social History household members: significant other housing: other details: Private one-story home with no steps. 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 pets and animals: Yes Smoking Status: Never smoker alcohol intake: never substance use type: does not use ROS ROS ED ROS Narrative A complete review of systems was performed and is negative except as documented in the history of present illness. Some specific details below. Constitutional: No recent fevers or chills. No rigors. Patient has not generally felt ill. He generally has been feeling better. EYE: No discharge, visual complaints, or pain. No visual field cut. ENT: No difficulty swallowing. No swelling. No sinus pressure or pain. CV: No chest pain, pressure or aching. No palpitations or irregular beats. Patient has not been presyncopal or syncopal. He had fallen in the hospital but not since. Respiratory: No trouble breathing. No cough. No wheezing. No sputum production. No pain with breathing. GI: No abdominal pain. No nausea or diarrhea. He did have the episode of vomiting earlier but feels normal now. No blood in vomitus. No blood in stool. : No frequency dysuria or hematuria. Musculoskeletal: No recent trauma. No pains. No swelling. Skin: No rash. Nondiaphoretic. Neuro: No weakness or numbness. No difficulty with speaking. No difficulty understanding speech. No visual loss. Please see history of present illness also. Endocrine: No polyuria or polydipsia. EXAM Physical Exam Narrative Exam Narrative: CONSTITUTIONAL: Patient is nontoxic in appearance. The patient looks comfortable. Work of breathing looks normal. He is well and appropriately dressed. He is very alert and responsive. He is a very good consistent informant. HEENT: No notable trauma. Mucous membranes moist. No sinus tenderness. EYES: No conjunctival injection. No proptosis. No pain with range of motion. No pallor. No visual field cut on exam. NECK: No meningismus. No JVD. CARDIOVASCULAR: Regular rate. Regular rhythm. No notable murmur. No JVD. RESPIRATORY: No respiratory distress. Breathing is unlabored. No wheezes. No rhonchi. No rales. No pain with a deep breath. GASTROINTESTINAL: Not distended. Bowel sounds are normal. No tenderness. No guarding. No rebound. No palpable mass. No bruit. GENITOURINARY: No tenderness over the bladder. No CVA tenderness. MUSCULOSKELETAL: Atraumatic. No peripheral edema. No cord. No tenderness along the deep venous system. No asymmetry. NEUROLOGICAL: Patient is alert and oriented. No focal deficit noted. NIH stroke scale is 0. His strength is excellent and equal. No sensory changes. No discoordination. His speech and understanding are normal. SKIN: No noted rashes. No diaphoresis. No vesicles noted. No notable pallor. PSYCHIATRIC: Patient is calm. Mood is appropriate. Const Vital Signs: 04/22/23 23:02 04/23/23 01:01 Temperature 97.9 F Temperature Source Temporal Pulse Rate 67 75 Respiratory Rate 15 18 Blood Pressure 129/64 H 146/72 H Blood Pressure Mean 85 96 Pulse Ox 97 94 Oxygen Delivery Method Room Air Room Air MDM MDM MDM Narrative Medical decision making narrative: My independent interpretation the patient's CT of the head shows what is suspicious for infarct of the right side. Final reading was reviewed. I also discussed the case directly with the radiologist. The problem is we do not have comparison images. I did read the reports from the rehab visit but these are not the same as images. Patient's images were done at [facility] in [place]. We are calling them to see if they can download the patient's CT and MRI onto our system so we can compare. He is not having new neurologic symptoms now. Patient CBC shows mild anemia but otherwise normal. Platelets are also normal. Electrolytes show preserved sodium but his creatinine is slightly higher. He is given IV fluids here. Patient's glucose is mildly high at 161. Comparison of prior images per radiology shows no acute process. There is some edema as part of healing in the area of the patient's recent stroke. There is no new focal edema. Recommended repeat follow-up studies. I talked with patient again. He now states that he does have a little bit of symptoms of burning with urination. This seems to be coming back. His urine is a little bit suspicious for UTI. I will get him on cephalexin pending culture. His last culture was Proteus mirabilis and was pansensitive except for Macrobid. Lab Data Labs: Laboratory Results - last 24 hr 04/22/23 04/23/23 00:00 02:00 WBC 10.9 RBC 3.66 L Hgb 11.6 L Hct 33.6 L MCV 91.8 MCH 31.7 MCHC 34.5 D RDW Std Deviation 49.9 H RDW Coeff of Chaim 15.0 H Plt Count 352 MPV 10.6 Immature Gran % (Auto) 1.500 H Neut % (Auto) 77.5 H Lymph % (Auto) 10.8 L [place] % (Auto) 6.9 Eos % (Auto) 2.8 Baso % (Auto) 0.5 Absolute Neuts (auto) 8.4 H Absolute Lymphs (auto) 1.18 Nucleated RBC % 0 Sodium 135 L Potassium 4.7 Chloride 103 Carbon Dioxide 29.0 Anion Gap 3 L BUN 27 H Creatinine 1.40 H Est GFR (MDRD) Af Amer 62 Est GFR (MDRD) Non-Af 51 L BUN/Creatinine Ratio 19.3 Glucose 161 H Calcium 9.0 Urine Color Yellow Urine Clarity Clear Urine pH 7.0 Ur Specific Osteen 1.010 Urine Protein 30 H Urine Glucose (UA) Normal Urine Ketones Negative Urine Occult Blood 25 H Urine Nitrite Positive H Urine Bilirubin Negative Urine Urobilinogen Normal Ur Leukocyte Esterase 500 H Urine RBC 0-5 SEEN Urine WBC 10-25 SEEN Ur Squamous Epith Cells 0 SEEN Urine Bacteria 1+ Urine Mucus 0 SEEN Radiography Diagnostic Testing: Clinical Impression(s) from Imaging Studies Brain CT 04/22/23 23:19 IMPRESSION: There are 3 areas of low attenuation within the right hemisphere, 1 more anteriorly in the right frontal parietal region which may be chronic however findings are suspicious for possible acute subcortical edema within the right posterior parietal and occipital lobes which may represent ischemic change or potentially edema associated with metastatic foci. There is unusual associated punctate calcifications which could represents concern for possible underlying infection. Further evaluation with MRI with gadolinium Electronically Signed: Arlen Salinas MD at 0:51 EDT , ADDENDUM: 04/23/23 0101 IMPRESSION: There are 3 areas of low attenuation within the right hemisphere, 1 more anteriorly in the right frontal parietal region which may be chronic however findings are suspicious for possible acute subcortical edema within the right posterior parietal and occipital lobes which may represent ischemic change or potentially edema associated with metastatic foci. There is unusual associated punctate calcifications which could represents concern for possible underlying infection. Further evaluation with MRI with gadolinium N.B. : The above Results were Read Back by Arlen Salinas MD to Tom Mccall MD, and understanding confirmed on 04/23/2023 00:54:50 (ET). Electronically Signed: Arlen Salinas MD at 0:51 EDT , ADDENDUM: 04/23/23 0226 IMPRESSION: undefined EKG Initial EKG: Comments: I independent interpretation the patient's EKG shows normal sinus rhythm with overall rate of 69. No ventricular ectopy. No acute ST elevation or depression. Borderline LVH. LA interval, QRS duration and QTc are normal. There is no indication of atrial fibrillation or flutter. Discharge Plan Triage Chief Complaint: Weakness ED Provider: Tom Mccall Dx/Rx/DC Orders Clinical Impression: History of vomiting, History of recent stroke, Acute UTI Instructions: Urinary Tract Infections in Men, ED Weakness (Uncertain Cause) Prescriptions: New cephalexin [cephalexin] 500 mg capsule 500 mg PO Q12 Qty: 14 0RF No Action cholecalciferol (vitamin D3) [Vitamin D3] 125 mcg (5,000 unit) tablet 5,000 unit PO DAILY Patient Comments: 1 tablet by mouth amlodipine 5 mg Tablet 5 mg PO DAILY Qty: 45 0RF Rx Instructions: Take a whole tab in the AM and 1/2 tab at bedtime. acetaminophen 500 mg Tablet 1,000 mg PO Q8H PRN PRN (Reason: pain 1-10) Qty: 1 0RF quetiapine 25 mg Tablet 25 mg PO 2000 Qty: 7 0RF Rx Instructions: take 1/2 tab at bedtime until gone. sodium chloride 1,000 mg Tablet,Soluble 2,000 mg PO BID Qty: 60 0RF Mag 64 64 mg Tablet,Delayed Release (Dr/Ec) 128 mg PO DAILY Qty: 30 0RF atorvastatin 40 mg tablet 40 mg PO QHS Qty: 30 0RF clopidogrel [Plavix] 75 mg tablet 75 mg PO DAILY Qty: 5 0RF Rx Instructions: When you run out of this medication you will quit taking it. tamsulosin 0.4 mg capsule 0.4 mg PO DAILY Qty: 30 0RF metoprolol tartrate 50 mg tablet 50 mg PO BID Qty: 60 0RF aspirin 81 mg capsule 81 mg PO DAILY Qty: 1 0RF Rx Instructions: Take with food. Primary Care Provider: Kezia Lin Referrals: Kezia Lin MD [Primary Care Provider] - 3-5 Days if not improving Disposition Disposition: Home, Self Care
[2023-04-23 00:21] LABS: Anion Gap 3 (5-15); BUN 27 mg/dL (7-18); BUN/Creat Ratio 19.3 RATIO (10-20); Chloride 103 mmol/L (98-107); EST Glomerular Filtration Rate 51 mL/min (>60); Est Glom Filt Rate - Afr Amer 62 mL/min (>60); Glucose 161 mg/dL (74-106); Potassium 4.7 mmol/L (3.5-5.1); Sodium Level 135 mmol/L (136-145)
[2023-04-23 00:38] LABS: Absolute Lymphocyte Count 1.18 X10^3/uL (0.83-4.51); Absolute Neutrophil Count 8.4 X10^3/uL (2.0-7.7); Basophil# 0.05 X10^3/uL; Basophil% 0.5 % (0-1); Eosinophil# 0.31 X10^3/uL; Eosinophils% 2.8 % (0-5); Hematocrit 33.6 % (40-54); Hemoglobin 11.6 g/dL (13.0-16.5); Lymphocyte # 1.18 X10^3/ul (0.83-4.51); Lymphocyte % 10.8 % (19-41); Mean Corp Hgb Conc 34.5 g/dL (32-36); Mean Corpuscular Hgb 31.7 pg (27.0-32.0); Mean Corpuscular Volume 91.8 fL (80-94); Mean Platelet Vol. 10.6 fl (6.2-12.0); Monocyte# 0.75 X10^3/uL; Monocyte% 6.9 % (0-10); NRBC Flagged by Analyzer 0 % (0-5); Neutrophil # 8.43 X10^3/uL (2.7-7.7); Neutrophil % 77.5 % (47-70); Platelet Count 352 K/mm3 (150-450); RBC Distribution Width SD 49.9 fl (35.1-43.9); Red Blood Count 3.66 M/mm3 (4.6-6.2); White Blood Count 10.9 K/mm3 (4.4-11.0)
[2023-04-23 00:57] VITALS: BMI 23.8
[2023-04-23 01:01] VITALS: BP 146/72; PULSE 75; RESP 18; O2SAT 94
[2023-04-23 02:10] LABS: Mucous, Urine 0 SEEN /hpf (<or=2+); Squamous Epithelial Cells - UA 0 SEEN /hpf (0-5)
[2023-04-23 02:25] LABS: Color, Urine Yellow (Yellow); Glucose, Dipstick Normal (Normal); Ketone-Dipstick Negative (Negative); Leukocyte Esterase-Dipstick 500 /ul (Negative); Nitrite-Dipstick Positive (Negative); Occult Blood-Urine 25 /ul (Negative); Protein-Dipstick 30 mg/dl (Negative); Urine Bilirubin Dipstick Negative (Negative); Urine Clarity Clear (Clear); Urine Urobilinogen Normal (Normal)
[2023-04-23 02:32] LABS: Bacteria 1+ /hpf (None Seen); Red Blood Cells-Urine 0-5 SEEN /hpf (0-5); White Blood Cells 10-25 SEEN /hpf (0-5)
[2023-04-23 03:03] VITALS: BP 141/63; PULSE 64; RESP 18; O2SAT 94
[2023-04-23] MEDS: Cephalexin 250 MG Capsule 500 MG PO (03:08)
== END 2023-04-23 03:14 | disposition home or self-care (01) ==
PROVIDERS: Emergency Provider Emergency Medicine; PCP Internal Medicine; Visit Provider Emergency Medicine
DX: N39.0 Urinary tract infection, site not specified (principal); E78.5 Hyperlipidemia, unspecified; I10 Essential (primary) hypertension; N40.0 Benign prostatic hyperplasia without lower urinary tract symptoms; Z79.82 Long term (current) use of aspirin; Z79.01 Long term (current) use of anticoagulants; Z79.899 Other long term (current) drug therapy; Z86.73 Personal history of transient ischemic attack (TIA), and cerebral infarction without residual deficits
CPT/HCPCS: 70450; 80048; 81001; 85025; 87077; 87086; 87088; 87186; 93005; 96360; 99284; J7030

== ENCOUNTER 2024-04-21 11:49 | Inpatient (IN) | payer MEDICARE, SELFPAY ==
[2024-04-21] VITALS (7 sets, daily range): BP systolic 113–148; BP diastolic 61–72; PULSE 58–70; RESP 16–18; TEMP 36.3–36.9; O2SAT 94–99; BMI 22.9; BMI 21.9
--- NOTE | 2024-04-21 11:56 | EX.ED.DYSGE1 ---
HPI <WIL Small - Last Filed: 04/21/24 12:59> History of Present Illness Chief Complaint: Syncope Narrative Narrative: Patient is an 89-year-old male with history of CAD, CVA who is on Plavix, hypertension who presents to the emergency department after a syncopal episode. Patient was a visitor at [facility] visiting his , when he states he was sitting in a chair, he felt lightheaded, when someone came and checked on him they saw that his eyes were open however he was not responding. Patient then became diaphoretic, had multiple episode of vomitus. Patient was called a rapid response was brought down to the emergency department in our room 8. Patient denies any chest pain. Patient is alert and orient x 4. Blood sugar on arrival was 140. Patient states he did eat a normal breakfast this morning. He has been under a great deal of stress secondary to his being ill. [facility] <WIL Small - Last Filed: 04/21/24 12:59> [facility] Medical History Internal hemorrhoids Diverticulosis Celiac disease Carotid stenosis, bilateral BPH (benign prostatic hyperplasia) Hyperlipidemia Non-smoker AAA (abdominal aortic aneurysm) Hypertension Stroke/cerebrovascular accident Home Medications ?Medication ?Instructions ?Recorded ?Last Taken ?Type cholecalciferol (vitamin D3) 125 5,000 unit PO DAILY SUPPLEMENT 04/06/23 04/21/24 History mcg (5,000 unit) tablet (Vitamin D3) amlodipine 5 mg tablet 5 mg PO DAILY blood pressure #45 04/19/23 04/21/24 Rx tabs atorvastatin 40 mg tablet 40 mg PO QHS CHOLESTEROL #30 tabs 04/19/23 04/20/24 Rx magnesium chloride 64 mg 128 mg (2 x 64 mg) PO DAILY 04/19/23 04/21/24 Rx (magnesium chloride) SUPPLEMENT #30 tabs tablet,delayed release (Mag 64) metoprolol tartrate 50 mg tablet 50 mg PO BID HTN #60 tabs 04/19/23 04/21/24 Rx tamsulosin 0.4 mg capsule 0.4 mg PO DAILY TREAT ENLARGED 04/19/23 04/21/24 Rx PROSTRATE #30 caps ALGUECAL 2 cap PO DAILY SUPPLEMENT 04/21/24 Unknown History MITOCORE 2 cap PO DAILY SUPPLEMENT 04/21/24 Unknown History clopidogrel 75 mg tablet (Plavix) 75 mg PO DAILY HEART 04/21/24 04/21/24 History coenzyme Q10 10 mg capsule (Co 10 mg PO DAILY SUPPLEMENT 04/21/24 Unknown History Q-10) hydrocortisone 2.5 % topical 1 applic topical DAILY PRN itching 04/21/24 Unknown History ointment lorazepam 0.5 mg tablet 0.5 mg PO TID PRN anxiety 04/21/24 Unknown History omega 3 350 mg-dha 235 mg-epa 90 1 cap PO DAILY SUPPLEMENT 04/21/24 Unknown History mg-fish oil 597 mg capsule,delay rel (Willet-3) oregano oil 50 mg-flaxseed oil 25 1 cap PO DAILY SUPPLEMENT 04/21/24 Unknown History mg capsule Allergy/AdvReac Type Severity Reaction Status Date / Time Food Allergies: Uncoded AdvReac Intermediate Other Verified 04/21/24 11:49 Family History Father CVA (cerebral vascular accident) Sister Lupus (systemic lupus erythematosus) Brother Diabetes Brother Diabetes Surgical History History of excision of lesion History of excision of lesion H/O abdominal aortic aneurysm repair Social History household members: significant other housing: other details: Private one-story home with no steps. 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 pets and animals: Yes Smoking Status: Never smoker alcohol intake: never substance use type: does not use ROS <WIL Small - Last Filed: 04/21/24 12:59> ROS ED ROS Narrative Constitutional: Negative for fever, chills, weight loss, weakness Eyes: Negative for vision loss, vision change, double vision ENT: Negative for any sore throat, ear pain, congestion Cardiovascular: Negative for any chest pain, tightness, palpitations Respiratory: Negative for any cough, sputum production, hemoptysis, dyspnea, dyspnea on exertion, orthopnea Gastrointestinal: Negative for any abdominal pain, diarrhea, constipation, blood in stool, blood in vomit. Positive for nausea and vomiting : Negative for any urinary frequency, dysuria, retention, blood in urine Muscle skeletal: Negative for any neck pain, back pain Neurological: Negative for any headache. Positive for syncope, lightheadedness Skin: Negative for any rashes, itching, abrasions, lacerations Psychiatric: Negative for any depression, anxiety, stress, suicidal ideation, homicidal ideation Hematologic: Negative for any excessive bruising, easy bleeding EXAM <WIL Small - Last Filed: 04/21/24 12:59> Physical Exam Narrative Exam Narrative: Vital signs reviewed. Patient is alert and oriented x 3. Patient is slightly slow to respond however answers appropriately. He is tearful, states that he is under a great deal of stress secondary to his being ill. HEET: Head normocephalic atraumatic, TMs clear bilaterally. Posterior pharynx is clear, moist mucous membranes. Nares clear bilaterally. Neck: Supple with no lymphadenopathy or tenderness. No signs of meningismus. Cardiac: Regular rate and rhythm no murmurs gallops or rubs, equal peripheral pulses bilaterally. Respiratory: Lungs clear to auscultation bilaterally. No chest tenderness. Abdomen: Soft, nontender, nondistended. No abdominal bruit or pulsatile masses. No hepatosplenomegaly Extremities: No peripheral edema, no signs of gross trauma or deformity. Active full range of motion of all extremities. Neuro: Cranial nerves II through XII intact, no focal neurological deficits. Skin: Clean dry and intact with no rash, purpura, petechiae, vesicles or pustules. Backs/flank: No CVA tenderness, no midline spinal tenderness, no deformity. Psych: Normal mood and affect. No SI, HI or acute psychosis. Const Vital Signs: 04/21/24 11:49 04/21/24 11:49 04/21/24 12:03 Temperature 98 F Temperature Source Oral Pulse Rate 58 L Respiratory Rate 18 Respiratory Effort Normal Non-Labored Respiratory Pattern Normal Blood Pressure 148/70 H Blood Pressure Mean 96 Pulse Ox 99 Oxygen Delivery Method Room Air Room Air 04/21/24 12:49 04/21/24 12:49 Temperature 98 F Temperature Source Pulse Rate 63 63 Respiratory Rate 18 18 Respiratory Effort Respiratory Pattern Blood Pressure 139/61 H 139/61 H Blood Pressure Mean 87 87 Pulse Ox 96 96 Oxygen Delivery Method Room Air <Dr. Zachariah Angeles DO - Last Filed: 04/21/24 14:11> Physical Exam Const Vital Signs: 04/21/24 11:49 04/21/24 11:49 04/21/24 12:03 Temperature 98 F Temperature Source Oral Pulse Rate 58 L Respiratory Rate 18 Respiratory Effort Normal Non-Labored Respiratory Pattern Normal Blood Pressure 148/70 H Blood Pressure Mean 96 Pulse Ox 99 Oxygen Delivery Method Room Air Room Air 04/21/24 12:49 04/21/24 12:49 Temperature 98 F Temperature Source Pulse Rate 63 63 Respiratory Rate 18 18 Respiratory Effort Respiratory Pattern Blood Pressure 139/61 H 139/61 H Blood Pressure Mean 87 87 Pulse Ox 96 96 Oxygen Delivery Method Room Air MDM <WIL Small - Last Filed: 04/21/24 12:59> MDM Lab Data Labs: Laboratory Results - last 24 hr 04/21/24 04/21/24 11:53 11:55 WBC 5.6 RBC 4.08 L Hgb 12.3 L Hct 35.5 L MCV 87.0 MCH 30.1 MCHC 34.6 RDW Std Deviation 44.8 H RDW Coeff of Chaim 14.1 Plt Count 214 MPV 10.1 Immature Gran % (Auto) 0.700 Neut % (Auto) 57.2 Lymph % (Auto) 27.8 Sumner % (Auto) 11.1 H Eos % (Auto) 2.7 Baso % (Auto) 0.5 Absolute Neuts (auto) 3.2 Absolute Lymphs (auto) 1.55 Nucleated RBC % 0 PT 12.6 INR 0.9 Sodium 121 L Potassium 4.2 Chloride 87 L Carbon Dioxide 28.0 Anion Gap 6 BUN 20 H Creatinine 1.31 H Estim Creat Clear Calc 38.44 Est GFR (MDRD) Af Amer 67 Est GFR (MDRD) Non-Af 55 L BUN/Creatinine Ratio 15.3 Glucose 142 H Serum Osmolality 267 L Calcium 8.9 Troponin I High Sens 7 Radiography Diagnostic Testing: Clinical Impression(s) from Imaging Studies Brain CT 04/21/24 12:05 IMPRESSION: No acute intracranial process. Foci of encephalomalacia within the right frontal and right parietal occipital lobes consistent with old infarcts. Small vessel ischemia. Electronically Signed: Kalina Fitch MD at 12:47 EDT , Chest X-Ray 04/21/24 12:32 IMPRESSION: No radiographic evidence of acute cardiopulmonary disease. Electronically Signed: Kalina Fitch MD at 12:48 EDT , EKG Sinus bradycardia: Attestation: I personally reviewed and interpreted this EKG as follows: Interpretation: Sinus Rhythm Comments: Sinus bradycardia, rate of 57 bpm, LA interval 188 ms, QRS duration 96 ms, no acute ST elevation, no acute infarct noted. Treatment and Re-Evaluation :: Differential diagnosis includes however is not limited to: ACS, [place], vasovagal syncope, electrolyte abnormality, dehydration, CVA Patient appears to be in no obvious respiratory distress, patient's vital signs are stable. Presenting to the emergency department after syncopal episode while visiting his in the hospital. Patient was alert and orient x 4, patient was slightly emotional, he appears to be under a great deal of stress. Patient's blood sugar on arrival was 140. Patient will receive a cardiac workup, EKG was unremarkable. Chest x-ray as well as lab values. Troponin will also be drawn. Chest x-ray. All radiologic examinations were read, reviewed by the emergency department attending. From these reads, a plan of care will be put in place. Patient will be given 1 L normal saline and will be reevaluated. On reevaluation, patient is resting. I spoke with the patient's daughter, she is concerned for him, the patient is having a lot of anxiety, having difficulty caring for himself secondary to his being in the hospital. Chest x-ray shows no radiographic evidence of any cardiopulmonary disease. CT scan of the brain shows no acute intracranial process. there are some foci of encephalomalacia within the right frontal and right parietal occipital lobes consistent with old infarcts. Some small vessel ischemia. Patient's laboratories show a normal CBC, chronic anemia. Patient's chemistries show a significant low sodium at 121, creatinine is 1.31 which is baseline. Blood glucose 142. Troponin is 7. No evidence of any ACS or [place]. However secondary to the patient's low sodium, syncopal episode, I do believe the patient would benefit from admission. I spoke with the daughter who is agreeable. Spoke with hospitalist, they are in agreement. Stable for admission. <Dr. Zachariah Angeles, DO - Last Filed: 04/21/24 14:11> [facility] Lab Data Labs: Laboratory Results - last 24 hr 04/21/24 04/21/24 11:53 11:55 WBC 5.6 RBC 4.08 L Hgb 12.3 L Hct 35.5 L MCV 87.0 MCH 30.1 MCHC 34.6 RDW Std Deviation 44.8 H RDW Coeff of Chaim 14.1 Plt Count 214 MPV 10.1 Immature Gran % (Auto) 0.700 Neut % (Auto) 57.2 Lymph % (Auto) 27.8 Sumner % (Auto) 11.1 H Eos % (Auto) 2.7 Baso % (Auto) 0.5 Absolute Neuts (auto) 3.2 Absolute Lymphs (auto) 1.55 Nucleated RBC % 0 PT 12.6 INR 0.9 Sodium 121 L Potassium 4.2 Chloride 87 L Carbon Dioxide 28.0 Anion Gap 6 BUN 20 H Creatinine 1.31 H Estim Creat Clear Calc 38.44 Est GFR (MDRD) Af Amer 67 Est GFR (MDRD) Non-Af 55 L BUN/Creatinine Ratio 15.3 Glucose 142 H Serum Osmolality 267 L Calcium 8.9 Troponin I High Sens 7 Radiography Diagnostic Testing: Clinical Impression(s) from Imaging Studies Brain CT 04/21/24 12:05 IMPRESSION: No acute intracranial process. Foci of encephalomalacia within the right frontal and right parietal occipital lobes consistent with old infarcts. Small vessel ischemia. Electronically Signed: Kalina Fitch MD at 12:47 EDT , Chest X-Ray 04/21/24 12:32 IMPRESSION: No radiographic evidence of acute cardiopulmonary disease. Electronically Signed: Kalina Fitch MD at 12:48 EDT , Treatment and Re-Evaluation :: Differential diagnosis includes however is not limited to: ACS, [place], vasovagal syncope, electrolyte abnormality, dehydration, CVA Patient appears to be in no obvious respiratory distress, patient's vital signs are stable. Presenting to the emergency department after syncopal episode while visiting his in the hospital. Patient was alert and orient x 4, patient was slightly emotional, he appears to be under a great deal of stress. Patient's blood sugar on arrival was 140. Patient will receive a cardiac workup, EKG was unremarkable. Chest x-ray as well as lab values. Troponin will also be drawn. Chest x-ray. All radiologic examinations were read, reviewed by the emergency department attending. From these reads, a plan of care will be put in place. Patient will be given 1 L normal saline and will be reevaluated. On reevaluation, patient is resting. I spoke with the patient's daughter, she is concerned for him, the patient is having a lot of anxiety, having difficulty caring for himself secondary to his being in the hospital. Chest x-ray shows no radiographic evidence of any cardiopulmonary disease. CT scan of the brain shows no acute intracranial process. there are some foci of encephalomalacia within the right frontal and right parietal occipital lobes consistent with old infarcts. Some small vessel ischemia. Patient's laboratories show a normal CBC, chronic anemia. Patient's chemistries show a significant low sodium at 121, creatinine is 1.31 which is baseline. Blood glucose 142. Troponin is 7. No evidence of any ACS or [place]. However secondary to the patient's low sodium, syncopal episode, I do believe the patient would benefit from admission. I spoke with the daughter who is agreeable. This patient was seen with a PA/ALLIGATOR TRAPPER Individually assessed they patient including history and physical. I have reviewed everything on the chart that is available and agree with the documentation provided by the PA/ALLIGATOR TRAPPER including discussion about the assessment, treatment plan, discussion, and return precautions. Differential as above. Patient presenting with an episode of syncope while he was visiting his in the hospital. He did lose consciousness but did not fall to the floor. He is under a lot of stress with his being sick. He has had some anxiety attacks as well. Blood sugar was 140. Cardiac workup was performed and his EKG is sinus rhythm at 57 bpm without sign of ischemic change or ectopy. Chest x-ray interpreted by myself shows no acute cardiopulmonary process. The radiologist interprets this and agrees. CT brain is negative. CBC at baseline. BMP shows hyponatremia with a sodium of 121. High-sensitivity troponin is 7. Patient was given IV fluids. Given the patient's near syncope and hyponatremia we will with the patient to the hospital. Discharge Plan Dx/Rx/DC Orders Clinical Impression: Episode of syncope, Acute hyponatremia, Anxiety, Nausea & vomiting Disposition Disposition: Acute Care Hospital [facility] Discharge Date/Time: 04/21/24 13:28
[2024-04-21] MEDS: 0.9% Normal Saline (1000mL) 1,000 ML 999 ML IV (12:02)
[2024-04-21] MEDS: Ondansetron 4 MG/2 ML Vial IV (12:03)
--- NOTE | 2024-04-21 12:05 | CT_ITS ---
INDICATION: ams EXAMINATION: CT BRAIN - CT Head or Brain W/O Contrast Injection TECHNIQUE: Multiple axial images were obtained of the head without intravenous contrast. The protocol utilizes one or more of the following dose reduction techniques: automated exposure control, adjustment of mA and/or kV according to patient size,and/or use of iterative reconstruction technique. IV Contrast dosage and agent: None. RADIATION DOSAGE (If Supplied By Facility): CTDIvol = ( 44.99 ) mGy, DLP = ( 812.98 ) mGycm COMPARISON: April 23, 2023 FINDINGS: BRAIN PARENCHYMA: No intra- or extra-axial hemorrhage. There is a stable focus of encephalomalacia within the right frontal lobe consistent with an old infarct. There is a region of encephalomalacia within the right parieto-occipital region consistent with an old infarct as well. There are patchy foci of low attenuation within the white matter of the cerebral hemispheres, a nonspecific finding most commonly reflecting small vessel ischemia. No evidence of acute infarct. No intracranial mass or mass effect. There is preservation of the chatterjee/white matter interface. Posterior fossa structures are unremarkable. CSF SPACES: Appropriate for age. No hydrocephalus. Basal cisterns are patent. CALVARIUM, SKULL BASE, PARANASAL SINUSES AND MASTOID AIR CELLS: Clear. No discrete lytic or blastic abnormalities. ORBITS: Both globes, extraocular muscles, optic nerves and retrobulbar fat appear unremarkable. ASPECTS Score for Acute Strokes: 10 CT/Brain/Head without Contrast IMPRESSION: No acute intracranial process. Foci of encephalomalacia within the right frontal and right parietal occipital lobes consistent with old infarcts. Small vessel ischemia. Electronically Signed: Kalina Fitch MD at 12:47 EDT ,
[2024-04-21 12:06] LABS: Absolute Lymphocyte Count 1.55 X10^3/uL (0.83-4.51); Absolute Neutrophil Count 3.2 X10^3/uL (2.0-7.7); Basophil# 0.03 X10^3/uL; Basophil% 0.5 % (0-1); Eosinophil# 0.15 X10^3/uL; Eosinophils% 2.7 % (0-5); Hematocrit 35.5 % (40-54); Hemoglobin 12.3 g/dL (13.0-16.5); Lymphocyte # 1.55 X10^3/ul (0.83-4.51); Lymphocyte % 27.8 % (19-41); Mean Corp Hgb Conc 34.6 g/dL (32-36); Mean Corpuscular Hgb 30.1 pg (27.0-32.0); Mean Platelet Vol. 10.1 fl (6.2-12.0); Monocyte# 0.62 X10^3/uL; Monocyte% 11.1 % (0-10); NRBC Flagged by Analyzer 0 % (0-5); Neutrophil # 3.18 X10^3/uL (2.7-7.7); Neutrophil % 57.2 % (47-70); Platelet Count 214 K/mm3 (150-450); RBC Distribution Width CV 14.1 % (11.6-14.6); RBC Distribution Width SD 44.8 fl (35.1-43.9); Red Blood Count 4.08 M/mm3 (4.6-6.2); White Blood Count 5.6 K/mm3 (4.4-11.0)
[2024-04-21 12:16] LABS: International Normalized Ratio 0.9; Prothrombin Time (Protime)PT. 12.6 SECONDS (11.7-14.9)
[2024-04-21 12:24] LABS: Anion Gap 6 (5-15); BUN 20 mg/dL (7-18); BUN/Creat Ratio 15.3 RATIO (10-20); Calcium,Total 8.9 mg/dL (8.5-10.1); Chloride 87 mmol/L (98-107); Creatinine, Serum 1.31 mg/dL (0.70-1.30); EST Glomerular Filtration Rate 55 mL/min (>60); Est Glom Filt Rate - Afr Amer 67 mL/min (>60); Estimated Creatinine Clearance 38.44 ml/min; Glucose 142 mg/dL (74-106); Potassium 4.2 mmol/L (3.5-5.1); Sodium Level 121 mmol/L (136-145); Troponin-I HS (w/2H Reflex) 7 pg/mL (3.0-78.0)
--- NOTE | 2024-04-21 12:32 | RAD_ITS ---
INDICATION: chest pain EXAMINATION/TECHNIQUE: X-RAY - XR Chest 1 View COMPARISON: No relevant prior comparison study available FINDINGS: LINES/DEVICES: None. LUNGS: No consolidation, edema or effusion. No pneumothorax. MEDIASTINUM AND CARDIOVASCULAR STRUCTURES: Cardiac silhouette not enlarged. Central airways and mediastinal contour are unremarkable. BONES AND SOFT TISSUES: Unremarkable. RAD/Chest 1 View (Portable) IMPRESSION: No radiographic evidence of acute cardiopulmonary disease. Electronically Signed: Kalina Fitch MD at 12:48 EDT ,
--- NOTE | 2024-04-21 13:01 | HP.PCM.HOS_ITS ---
HPI - General General Date of Admission: 04/21/24 Date of Service: 04/21/24 HPI Narrative SERGO HEADINGS, is a 89 M with past medical history signal for previous CVA with residual right-sided weakness who experienced a syncopal episode while visiting the at the transitional care unit. Per Family who were with the patient at the time of the event he became unresponsive for couple of minutes and vomited x 1. There was no reported history of patient being incontinent of urine. Rapid response was called patient was sent to the ED. Workup did reveal severe hyponatremia with sodium level of 120. Head CT came back negative for any acute intracranial process. He was found to have foci of encephalomalacia within the right frontal and right parietal occipital lobes consistent with old infarct. Decision was made to admit patient to a monitored bed for further management [facility] Medical History Internal hemorrhoids Diverticulosis Celiac disease Carotid stenosis, bilateral BPH (benign prostatic hyperplasia) Hyperlipidemia Non-smoker AAA (abdominal aortic aneurysm) Hypertension Stroke/cerebrovascular accident Home Medications ?Medication ?Instructions ?Recorded ?Last Taken ?Type cholecalciferol (vitamin D3) 125 5,000 unit PO DAILY SUPPLEMENT 04/06/23 Unknown History mcg (5,000 unit) tablet (Vitamin D3) amlodipine 5 mg tablet 5 mg PO DAILY #45 tabs 04/19/23 Unknown Rx atorvastatin 40 mg tablet 40 mg PO QHS CHOLESTEROL #30 tabs 04/19/23 Unknown Rx magnesium chloride 64 mg 128 mg (2 x 64 mg) PO DAILY #30 04/19/23 Unknown Rx (magnesium chloride) tabs tablet,delayed release (Mag 64) metoprolol tartrate 50 mg tablet 50 mg PO BID HTN #60 tabs 04/19/23 Unknown Rx tamsulosin 0.4 mg capsule 0.4 mg PO DAILY TREAT ENLARGED 04/19/23 Unknown Rx PROSTRATE #30 caps ALGUECAL 2 cap PO DAILY SUPPLEMENT 04/21/24 Unknown History MITOCORE 2 cap PO DAILY SUPPLEMENT 04/21/24 Unknown History clopidogrel 75 mg tablet (Plavix) 75 mg PO DAILY HEART 04/21/24 04/21/24 History coenzyme Q10 10 mg capsule (Co 10 mg PO DAILY SUPPLEMENT 04/21/24 Unknown History Q-10) hydrocortisone 2.5 % topical 1 applic topical DAILY PRN itching 04/21/24 Unknown History ointment lorazepam 0.5 mg tablet 0.5 mg PO TID PRN anxiety 04/21/24 Unknown History omega 3 350 mg-dha 235 mg-epa 90 1 cap PO DAILY SUPPLEMENT 04/21/24 Unknown History mg-fish oil 597 mg capsule,delay rel ([place]-3) oregano oil 50 mg-flaxseed oil 25 1 cap PO DAILY SUPPLEMENT 04/21/24 Unknown History mg capsule Allergy/AdvReac Type Severity Reaction Status Date / Time Food Allergies: Uncoded AdvReac Intermediate Other Verified 04/21/24 11:49 Family History Father CVA (cerebral vascular accident) Sister Lupus (systemic lupus erythematosus) Brother Diabetes Brother Diabetes Surgical History History of excision of lesion History of excision of lesion H/O abdominal aortic aneurysm repair Social History household members: significant other housing: other details: Private one-story home with no steps. 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 pets and animals: Yes Smoking Status: Never smoker alcohol intake: never substance use type: does not use ROS ROS Narrative GENERAL: denies fever, chills, night sweats, weight loss, anorexia HEENT: denies headache, sinus congestion, or drainage, dysphagia RESPIRATORY: denies cough, sputum production, CARDIAC: denies chest pain, palpitations, orthopnea, PND GASTROINTESTINAL: Nausea and vomiting GENITOURINARY: denies dysuria, urgency, frequency, heamaturia EXTREMITY: denies swelling MUSCULOSKELETAL: denies current joint pain or tenderness NEUROLOGIC: denies focal numbness, weakness, tingling HEMATOLOGIC: denies easy bruising and/or hemorrhage INTEGUMENT: denies rashes PSYCHIATRIC: denies suicidal or homicidal ideation Vital Signs Vital Signs Vital Signs: 04/21/24 11:49 04/21/24 11:49 04/21/24 12:03 Temperature 98 F Temperature Source Oral Pulse Rate 58 L Respiratory Rate 18 Respiratory Effort Normal Non-Labored Respiratory Pattern Normal Blood Pressure 148/70 H Blood Pressure Mean 96 Pulse Ox 99 Oxygen Delivery Method Room Air Room Air Weight Weight: 68.8 kg Body Mass Index (BMI) 22.9 Physical Exam Narrative GENERAL: Significantly flat affect consult spoke HEENT: Atraumatic; normocephalic EYES; Anicteric, Normal Conjunctiva NECK; supple, normal thyroid, RESPIRATORY: Diminished to auscultation CARDIOVASCULAR: Regular S1 S2, GI: soft, normoactive bowel sounds, : No Renal angle tenderness; EXTREMITIES: No edema, no clubbing, MUSCULOSKELETAL: no muscle wasting NEURO: Awake; right upper extremity with. SKIN: No Rash PSYCH; Flat affect Results Lab / Micro Data 04/21/24 11:55 04/21/24 11:55 Labs: Laboratory Results - last 24 hr 04/21/24 11:55: WBC 5.6, RBC 4.08 L, Hgb 12.3 L, Hct 35.5 L, MCV 87.0, MCH 30.1, MCHC 34.6, RDW Std Deviation 44.8 H, RDW Coeff of Chaim 14.1, Plt Count 214, MPV 10.1, Immature Gran % (Auto) 0.700, Neut % (Auto) 57.2, Lymph % (Auto) 27.8, M colton % (Auto) 11.1 H, Eos % (Auto) 2.7, Baso % (Auto) 0.5, Absolute Neuts (auto) 3.2, Absolute Lymphs (auto) 1.55, Nucleated RBC % 0, PT 12.6, INR 0.9, Sodium 121 L, Potassium 4.2, Chloride 87 L, Carbon Dioxide 28.0, Anion Gap 6, BUN 20 H, Creatinine 1.31 H, Estim Creat Clear Calc 38.44, Est GFR (MDRD) Af Amer 67, Est GFR (MDRD) Non-Af 55 L, BUN/Creatinine Ratio 15.3, Glucose 142 H, Calcium 8.9, Troponin I High Sens 7 Imaging Radiology Impression Brain CT 04/21/24 12:05 IMPRESSION: No acute intracranial process. Foci of encephalomalacia within the right frontal and right parietal occipital lobes consistent with old infarcts. Small vessel ischemia. Electronically Signed: Kalina Fitch MD at 12:47 EDT , Chest X-Ray 04/21/24 12:32 IMPRESSION: No radiographic evidence of acute cardiopulmonary disease. Electronically Signed: Kalina Fitch MD at 12:48 EDT , Assessment & Plan Assessment/Plan (1) Nausea & vomiting: PLAN: Plan Patient is an 89-year-old gentleman presented with syncopal episode 1. Syncopal episode ? Referred differential diagnoses include vasovagal versus orthostatic hypotension. Admitted to telemetry for continuous monitoring. As part of his management ordered serial cardiac enzymes 2D echo and every shift orthostatics. 2. Hyponatremia ? Patient has experienced hyponatremia in the past with sodium level being as low as 124. He was apparently prescribed sodium tablets which she has since stopped. Sodium level on admission was 120. Ordered urine osmolality serum osmolality as well as urine sodium. Patient be resuscitated with IV fluid with serial monitoring of sodium levels ordered every 4 3. 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 Patient is on antiplatelet therapy with clopidogrel as well as statin therapy with atorvastatin did continue. Also requested for PT OT eval 4. BPH with lower urinary obstructive symptoms - Patient treated with tamsulosin 5. History of abdominal aortic aneurysm ? Stable 6. Celiac disease ? Per history 7. Vitamin D deficiency ? Patient is on vitamin D3 supplementation plan is to continue following home medication reconciliation 8. Chronic kidney disease stage III ? Kidney function on admission at baseline will monitor with daily BMPs 9. Hypertension - Blood pressure controlled, home medications continued with dose adjustment as needed 10. Anxiety disorder ? Patient is on lorazepam as needed 11. DVT prophylaxis - On enoxaparin Time spent in the patient's overall evaluation,decision-making process, review of diagnostic data, adjustment of management, discussion with other providers, nursing nursing and ancillary staff involved in patient's care documentation,75 Minutes Advance planning; did discuss with the patient and family regarding advanced directives as well as CODE STATUS. Did explain the various scenarios involved ( FULL CODE, DNR CCA, DNR CCA with no intubation, and DNR CC and what each meant) patient initially elected for DNR CCA however after discussion with family patient decided to go with full code for now. Order was placed. Time spent on discussion 16 minutes. Charges/Coding Multi Select Codes Visit Charges Visit Charges: 66464 Init Hosp L3 Hospitalists' Procedures Procedures: 04726 Advncd Care Plan 30 Min
[2024-04-21 13:17] LABS: Osmolality, Serum 267 mOsm/KG (280-301)
[2024-04-21 14:02] LABS: Reflex Troponin-HS? (from REC) Y
--- NOTE | 2024-04-21 14:05 | ECHOL_ITS ---
Reason For Study: SYNCOPE Procedure This was a limited 2D transthoracic echocardiogram. Technically dificult study due to patient being nervous. Study ended early at request of patient. Exam performed portable in patient room. Right Ventricle Normal RV size. Normal systolic function. Mitral Valve There is severe mitral annular calcification. No mitral valve insufficiency. Aortic Valve Aortic sclerosis. MMode/2D Measurements & Calculations LVIDd: 3.6 cm IVSd: 1.5 cm Ao root diam: 3.3 cm LVIDs: 2.1 cm LVPWd: 1.2 cm FS: 41.4 % ECHO/Echo, Limited Study Interpretation Summary Limited study as patient wanted the test to be terminated. Overall EF appears to be preserved No evidence of LVOT obstruction or severe aortic stenosis Ordering Physician: Cameron Pascual Referring Physician: VANESSA DUBOSE Performed By: Shelly Morin RCS
[2024-04-21 14:28] LABS: Anion Gap 6 (5-15); BUN 19 mg/dL (7-18); BUN/Creat Ratio 16.4 RATIO (10-20); Calcium,Total 8.5 mg/dL (8.5-10.1); Chloride 90 mmol/L (98-107); Creatinine, Serum 1.16 mg/dL (0.70-1.30); EST Glomerular Filtration Rate 63 mL/min (>60); Est Glom Filt Rate - Afr Amer 77 mL/min (>60); Estimated Creatinine Clearance 41.56 ml/min; Glucose 112 mg/dL (74-106); Potassium 4.4 mmol/L (3.5-5.1); Sodium Level 123 mmol/L (136-145)
[2024-04-21 14:35] LABS: Troponin-I HS 7 pg/mL (3.0-78.0)
[2024-04-21] MEDS: 0.9% Normal Saline (1000mL) 1,000 ML 150 ML IV ×2 (15:05→21:43)
[2024-04-21 16:09] LABS: Bedside Glucose 140 mg/dL (74-106)
[2024-04-21 16:29] LABS: Bacteria 0 SEEN /hpf (None Seen); Mucous, Urine 0 SEEN /hpf (<or=2+); Red Blood Cells-Urine 0 SEEN /hpf (0-5); Squamous Epithelial Cells - UA 0 SEEN /hpf (0-5); White Blood Cells 0 SEEN /hpf (0-5)
[2024-04-21 16:37] LABS: Color, Urine Yellow (Yellow); Glucose, Dipstick Normal (Normal); Ketone-Dipstick Negative (Negative); Leukocyte Esterase-Dipstick Negative /ul (Negative); Nitrite-Dipstick Negative (Negative); Occult Blood-Urine Negative /ul (Negative); Protein-Dipstick Negative (Negative); Specific Gravity, Urine 1.005 (1.002-1.030); Urine Bilirubin Dipstick Negative (Negative); Urine Clarity Clear (Clear); Urine Urobilinogen Normal (Normal)
[2024-04-21 16:40] LABS: Urine Sodium 62 mmol/L (Not Establ.)
[2024-04-21 17:38] LABS: Osmolality, Urine 220 mOsm/KG
[2024-04-21 17:54] LABS: Anion Gap 4 (5-15); BUN 17 mg/dL (7-18); BUN/Creat Ratio 15.6 RATIO (10-20); Calcium,Total 8.7 mg/dL (8.5-10.1); Chloride 94 mmol/L (98-107); Creatinine, Serum 1.09 mg/dL (0.70-1.30); EST Glomerular Filtration Rate 68 mL/min (>60); Est Glom Filt Rate - Afr Amer 82 mL/min (>60); Estimated Creatinine Clearance 44.23 ml/min; Glucose 115 mg/dL (74-106); Potassium 4.2 mmol/L (3.5-5.1); Sodium Level 124 mmol/L (136-145)
[2024-04-21 22:00] LABS: Anion Gap 5 (5-15); BUN 19 mg/dL (7-18); BUN/Creat Ratio 16.8 RATIO (10-20); Calcium,Total 8.4 mg/dL (8.5-10.1); Chloride 97 mmol/L (98-107); Creatinine, Serum 1.13 mg/dL (0.70-1.30); EST Glomerular Filtration Rate 65 mL/min (>60); Est Glom Filt Rate - Afr Amer 79 mL/min (>60); Estimated Creatinine Clearance 42.67 ml/min; Glucose 126 mg/dL (74-106); Potassium 4.2 mmol/L (3.5-5.1); Sodium Level 129 mmol/L (136-145)
[2024-04-22 01:45] LABS: Anion Gap 5 (5-15); BUN 17 mg/dL (7-18); BUN/Creat Ratio 16.7 RATIO (10-20); Calcium,Total 8.3 mg/dL (8.5-10.1); Chloride 100 mmol/L (98-107); Creatinine, Serum 1.02 mg/dL (0.70-1.30); EST Glomerular Filtration Rate 73 mL/min (>60); Est Glom Filt Rate - Afr Amer 89 mL/min (>60); Estimated Creatinine Clearance 47.27 ml/min; Glucose 99 mg/dL (74-106); Potassium 4.1 mmol/L (3.5-5.1); Sodium Level 130 mmol/L (136-145)
[2024-04-22 02:10] VITALS: BP 140/65; PULSE 69; RESP 16; TEMP 36.5; O2SAT 97
[2024-04-22] MEDS: 0.9% Saline Lock 10 ML Syringe IV (04:25)
[2024-04-22 06:11] LABS: Absolute Lymphocyte Count 1.68 X10^3/uL (0.83-4.51); Absolute Neutrophil Count 3.1 X10^3/uL (2.0-7.7); Basophil# 0.03 X10^3/uL; Basophil% 0.5 % (0-1); Eosinophil# 0.19 X10^3/uL; Eosinophils% 3.3 % (0-5); Hematocrit 34.9 % (40-54); Hemoglobin 12.2 g/dL (13.0-16.5); Lymphocyte # 1.68 X10^3/ul (0.83-4.51); Lymphocyte % 29.2 % (19-41); Mean Corpuscular Hgb 30.6 pg (27.0-32.0); Mean Corpuscular Volume 87.5 fL (80-94); Mean Platelet Vol. 10.5 fl (6.2-12.0); Monocyte# 0.76 X10^3/uL; Monocyte% 13.2 % (0-10); NRBC Flagged by Analyzer 0 % (0-5); Neutrophil # 3.07 X10^3/uL (2.7-7.7); Neutrophil % 53.5 % (47-70); Platelet Count 218 K/mm3 (150-450); RBC Distribution Width CV 14.4 % (11.6-14.6); RBC Distribution Width SD 46.5 fl (35.1-43.9); Red Blood Count 3.99 M/mm3 (4.6-6.2); White Blood Count 5.8 K/mm3 (4.4-11.0)
[2024-04-22 06:26] LABS: Magnesium 1.9 mg/dL (1.6-2.6)
[2024-04-22 06:43] LABS: Anion Gap 5 (5-15); BUN 15 mg/dL (7-18); BUN/Creat Ratio 14.4 RATIO (10-20); Calcium,Total 8.7 mg/dL (8.5-10.1); Chloride 99 mmol/L (98-107); Creatinine, Serum 1.04 mg/dL (0.70-1.30); EST Glomerular Filtration Rate 72 mL/min (>60); Est Glom Filt Rate - Afr Amer 87 mL/min (>60); Estimated Creatinine Clearance 46.36 ml/min; Glucose 98 mg/dL (74-106); Phosphorus 3.1 mg/dL (2.5-4.9); Potassium 4.1 mmol/L (3.5-5.1); Sodium Level 128 mmol/L (136-145)
[2024-04-22 08:11] VITALS: BP 151/68; PULSE 88; RESP 18; TEMP 36.7; O2SAT 99
[2024-04-22] MEDS: Sertraline 50 MG Tablet PO (09:15)
[2024-04-22] MEDS: LORazepam 0.5 MG Tablet PO ×3 (09:15→23:00)
[2024-04-22] MEDS: Clopidogrel Bisulfate 75 MG Tablet PO (09:15)
--- NOTE | 2024-04-22 11:15 | PN.HOSP_ITS ---
Subjective Subjective No issues overnight, praying to God because he thinks he is dying Objective Data Objective Data Vital Signs: Vital Signs Temp Pulse Resp BP Pulse Ox O2 Del Method 98.1 F 88 18 151/68 H 99 Room Air 04/22/24 08:11 04/22/24 08:11 04/22/24 08:11 04/22/24 08:11 04/22/24 08:11 04/22/24 08:24 Oxygen Delivery Method Room Air Weight: 144 lb 6.444 oz Body Mass Index (BMI) 21.9 Intake & Output: Intake and Output for Last 24 Hours 04/21/24 04/22/24 04/23/24 03:59 03:59 03:59 Intake Total 2355 / 2355 1000 / 1000 Output Total 900 / 900 Balance 2355 / 2355 100 / 100 Lab / Micro Data 04/22/24 05:32 04/22/24 05:32 Labs: Laboratory Results - last 24 hr 04/21/24 11:53: Serum Osmolality 267 L, POC Glucose 140 H 04/21/24 11:55: WBC 5.6, RBC 4.08 L, Hgb 12.3 L, Hct 35.5 L, MCV 87.0, MCH 30.1, MCHC 34.6, RDW Std Deviation 44.8 H, RDW Coeff of Chaim 14.1, Plt Count 214, MPV 10.1, Immature Gran % (Auto) 0.700, Neut % (Auto) 57.2, Lymph % (Auto) 27.8, M colton % (Auto) 11.1 H, Eos % (Auto) 2.7, Baso % (Auto) 0.5, Absolute Neuts (auto) 3.2, Absolute Lymphs (auto) 1.55, Nucleated RBC % 0, PT 12.6, INR 0.9, Sodium 121 L, Potassium 4.2, Chloride 87 L, Carbon Dioxide 28.0, Anion Gap 6, BUN 20 H, Creatinine 1.31 H, Estim Creat Clear Calc 38.44, Est GFR (MDRD) Af Amer 67, Est GFR (MDRD) Non-Af 55 L, BUN/Creatinine Ratio 15.3, Glucose 142 H, Calcium 8.9, Troponin I High Sens 7 04/21/24 14:00: Sodium 123 L, Potassium 4.4, Chloride 90 L, Carbon Dioxide 27.0, Anion Gap 6, BUN 19 H, Creatinine 1.16, Estim Creat Clear Calc 41.56, Est GFR (MDRD) Af Amer 77, Est GFR (MDRD) Non-Af 63, BUN/Creatinine Ratio 16.4, Glucose 112 H, Calcium 8.5, Troponin I High Sens 7 04/21/24 16:21: Urine Color Yellow, Urine Clarity Clear, Urine pH 7.0, Ur Specific [place] 1.005, Urine Protein Negative, Urine Glucose (UA) Normal, Urine Ketones Negative, Urine Occult Blood Negative, Urine Nitrite Negative, Urine Bilirubin Negative, Urine Urobilinogen Normal, Ur Leukocyte Esterase Negative, Urine RBC 0 SEEN, Urine WBC 0 SEEN, Ur Squamous Epith Cells 0 SEEN, Urine Bacteria 0 SEEN, Urine Mucus 0 SEEN, Urine Osmolality 220, Ur Random Sodium 62 04/21/24 17:18: Sodium 124 L, Potassium 4.2, Chloride 94 L, Carbon Dioxide 26.0, Anion Gap 4 L, BUN 17, Creatinine 1.09, Estim Creat Clear Calc 44.23, Est GFR (MDRD) Af Amer 82, Est GFR (MDRD) Non-Af 68, BUN/Creatinine Ratio 15.6, Glucose 115 H, Calcium 8.7 04/21/24 21:40: Sodium 129 L, Potassium 4.2, Chloride 97 L, Carbon Dioxide 27.0, Anion Gap 5, BUN 19 H, Creatinine 1.13, Estim Creat Clear Calc 42.67, Est GFR (MDRD) Af Amer 79, Est GFR (MDRD) Non-Af 65, BUN/Creatinine Ratio 16.8, Glucose 126 H, Calcium 8.4 L 04/22/24 01:24: Sodium 130 L, Potassium 4.1, Chloride 100, Carbon Dioxide 25.0, Anion Gap 5, BUN 17, Creatinine 1.02, Estim Creat Clear Calc 47.27, Est GFR (MDRD) Af Amer 89, Est GFR (MDRD) Non-Af 73, BUN/Creatinine Ratio 16.7, Glucose 99, Calcium 8.3 L 04/22/24 05:32: WBC 5.8, RBC 3.99 L, Hgb 12.2 L, Hct 34.9 L, MCV 87.5, MCH 30.6, MCHC 35.0, RDW Std Deviation 46.5 H, RDW Coeff of Chaim 14.4, Plt Count 218, MPV 10.5, Immature Gran % (Auto) 0.300, Neut % (Auto) 53.5, Lymph % (Auto) 29.2, M colton % (Auto) 13.2 H, Eos % (Auto) 3.3, Baso % (Auto) 0.5, Absolute Neuts (auto) 3.1, Absolute Lymphs (auto) 1.68, Nucleated RBC % 0, Sodium 128 L, Potassium 4.1, Chloride 99, Carbon Dioxide 24.0, Anion Gap 5, BUN 15, Creatinine 1.04, Estim Creat Clear Calc 46.36, Est GFR (MDRD) Af Amer 87, Est GFR (MDRD) Non-Af 72, BUN/Creatinine Ratio 14.4, Glucose 98, Calcium 8.7, Phosphorus 3.1, Magnesium 1.9, TSH 1.40 Radiography Diagnostic Testing: Radiology Impression Brain CT 04/21/24 12:05 IMPRESSION: No acute intracranial process. Foci of encephalomalacia within the right frontal and right parietal occipital lobes consistent with old infarcts. Small vessel ischemia. Electronically Signed: Kalina Fitch MD at 12:47 EDT , Chest X-Ray 04/21/24 12:32 IMPRESSION: No radiographic evidence of acute cardiopulmonary disease. Electronically Signed: Kalina Fitch MD at 12:48 EDT , Physical Exam Narrative General: Alert, Oriented x3, Cooperative, No apparent distress, frail HEENT: Atraumatic, PERRLA, EOMI, Normocephalic Oral: Moist Mucosa Neck: Supple, No JVD Lungs: Diminished, Normal air movement, No rhonchi, No wheeze, No rales Cardiovascular: Regular rate, Regular Rhythm, Normal S1, Normal S2, No murmurs Abdomen: Soft, Non Tender, Non-Distended, No Hepato-splenomegaly Extremities: No edema, Capillary Refill Less than 3 Seconds Skin: No rashes, No breakdown Musculoskeletal: No Tenderness to Palpation of Joints or Extremities Neurological: No focal neurological deficits, Motor Exam 5/5 strength throughout, Sensory exam intact to light touch and pain Psych/Mental Status: Flat, tearful, praying to God Assessment & Plan Assessment/Plan (1) Nausea & vomiting: PLAN: Plan 1. Syncope secondary to orthostasis/hyponatremia ? Continue with IV fluids ? Refused orthostatics today ? Refused echo today ? Has significant anxiety and depression and thinks he is going to and spent his morning praying to God and was extremely tearful ? Will restart IV fluids and place him on Zoloft as well as give him a dose of Ativan to calm his anxiety, discussed with family that the Zoloft could potentially exacerbate the hyponatremia ? It does appear that he was not drinking very well for couple of days prior to admission which explains his symptoms 2. Essential HTN ? Blood pressures are stable ? Will continue to hold his metoprolol ? Will monitor make adjustments as necessary ? Continue with Plavix for his history of CVA 3. Anxiety/depression ? Will give him a x 1 dose of Ativan and then continue with as needed Ativan ? Continue with Zoloft 4. BPH with lower urinary obstructive symptoms ?Stable ? Continue with Flomax DVT: Lovenox Charges/Coding Visit Charges Inpatient E&M: 35189 Subs Hosp L2
[2024-04-22] MEDS: Enoxaparin 30 MG/0.3 ML Syringe SC (11:40)
[2024-04-22] MEDS: 0.9% Normal Saline (1000mL) 1,000 ML 75 ML IV (11:42)
--- NOTE | 2024-04-22 12:55 | CHAPLAIN ---
Type of Pastoral Visit __x_ Initial Visit ___ Follow-up Visit ___ On-call Visit ___ General Patient Visit ___ Spiritual Assessment ___ Family Conference ___ Bereavement ___ Rapid Response ___ Code Blue ___ Other (describe below) Pastoral Care Referral From _x__ Patient _x__ Family _x__ Nurse ___ Physician ___ Laundry Bag Punch Operator ___ Electric Frying Pan Repairer ___ Other (describe below) Sacrament/Intervention _x__ Active listening ___ Anointing ___ Latter-Day ___ Bereavement ___ Communion _x__ Kimberly exploration ___ _x__ Life review _x__ Prayer ___ Reconciliation ___ Sacrament of Sick _x__ Supportive presence ___ Wedding ___ Other (describe below) Pastoral Comments per RN report and family confirmation, this patient had high anxiety over night and into this morning; pt had a fainting spell during visit to his 's room in TCU yesterday per report; per report pt believes he is dying and that his may also soon; pt affirms this thought and 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
[2024-04-22 14:32] VITALS: BP 125/60; PULSE 82; RESP 14; TEMP 37.1; O2SAT 99
[2024-04-22 22:56] VITALS: BP 132/68; PULSE 72; RESP 16; TEMP 36.9; O2SAT 98
[2024-04-23] MEDS: 0.9% Normal Saline (1000mL) 1,000 ML 75 ML IV (00:22)
[2024-04-23 04:05] VITALS: BP 138/66; PULSE 75; RESP 16; TEMP 36.8; O2SAT 98
[2024-04-23 05:55] VITALS: BP 101/63; BP 133/66; BP 148/67; PULSE 66; PULSE 72; PULSE 91
[2024-04-23 06:48] LABS: Anion Gap 7 (5-15); BUN 20 mg/dL (7-18); BUN/Creat Ratio 17.4 RATIO (10-20); Calcium,Total 8.5 mg/dL (8.5-10.1); Chloride 98 mmol/L (98-107); Creatinine, Serum 1.15 mg/dL (0.70-1.30); EST Glomerular Filtration Rate 64 mL/min (>60); Est Glom Filt Rate - Afr Amer 77 mL/min (>60); Estimated Creatinine Clearance 41.93 ml/min; Glucose 97 mg/dL (74-106); Potassium 4.2 mmol/L (3.5-5.1); Sodium Level 130 mmol/L (136-145)
[2024-04-23 08:39] VITALS: BP 146/63; PULSE 69; RESP 18; TEMP 36.4; O2SAT 98
[2024-04-23] MEDS: Clopidogrel Bisulfate 75 MG Tablet PO (08:42)
[2024-04-23] MEDS: Sertraline 50 MG Tablet PO (08:42)
[2024-04-23] MEDS: Enoxaparin 30 MG/0.3 ML Syringe SC (08:43)
--- NOTE | 2024-04-23 09:06 | DCINST_ITS ---
Discharge Instructions Diet Discharge Diet: No restrictions Activity Discharge Activity: Return to Normal Activity Dressing / Incision Call your doctor if you observe: Fever of 101 or Higher, Shortness of breath, Dizziness, Fainting spells, Swelling in the ankles, Chest pain and Increased palpitations (irregular heartbeat) Follow Up Care Test Results: Test results from this visit will be discussed in further detail at your follow- up appointment, if applicable. Discharge Plan Admission Admit Date/Time: 04/22/24 12:27 Attending Provider: Ozzy Charlton Primary Care Provider: Kezia Lin Consulting Providers: Cameron Pascual Instructions Additional Instructions / Restrictions: Follow-up with your PCP in 3 to 5 days to monitor your sodium and your renal function. Discharge Orders/Prescriptions Prescriptions: New sertraline 50 mg Tablet 50 mg PO DAILY 30 Days Qty: 30 0RF Continued cholecalciferol (vitamin D3) [Vitamin D3] 125 mcg (5,000 unit) tablet 5,000 unit PO DAILY magnesium chloride [Mag 64] 64 mg Tablet,Delayed Release (Dr/Ec) 128 mg PO DAILY Qty: 30 0RF atorvastatin 40 mg tablet 40 mg PO QHS Qty: 30 0RF tamsulosin 0.4 mg capsule 0.4 mg PO DAILY Qty: 30 0RF hydrocortisone 2.5 % ointment 1 applic topical DAILY PRN (Reason: itching) lorazepam 0.5 mg tablet 0.5 mg PO TID PRN (Reason: anxiety) Patient Comments: PT HASNT TAKEN YET, BUT WILL TAKE NEEDED clopidogrel [Plavix] 75 mg tablet 75 mg PO DAILY ALGUECAL capsule 2 cap PO DAILY MITOCORE capsule 2 cap PO DAILY oregano oil-flaxseed oil 50-25 mg capsule 1 cap PO DAILY [place]-3 350 mg-235 mg- 90 mg-597 mg capsule,delayed release(DR/EC) 1 cap PO DAILY coenzyme Q10 [Co Q-10] 10 mg capsule 10 mg PO DAILY Held amlodipine 5 mg Tablet 5 mg PO DAILY Qty: 45 0RF Hold Instructions: Resume on 04/26/24. Rx Instructions: Take a whole tab in the AM and 1/2 tab at bedtime. metoprolol tartrate 50 mg tablet 50 mg PO BID Qty: 60 0RF Hold Instructions: Resume on 04/25/24. Referrals / Follow Up: Kezia Lin MD [Primary Care Provider] - Within 1 Week Kezia Lin MD [[facility]] - Disposition Disposition (needs filled in before D/C Order can be placed): Home, Self Care
--- NOTE | 2024-04-23 09:54 | PHA.DC.MC.R ---
Pharmacy [facility] has performed discharge medication reconciliation and counseling for this patient. 1. SERTRALINE 50MG PO DAILY The patient's discharge medication list was reviewed for discrepancies and discrepancies were resolved. The patient was counseled on the following discharge medications and changes in medications for homegoing were reviewed. The Reason for Use, instructions for use, and potential side effects were reviewed for all new medications. The patient's questions regarding all of their medications were answered. The patient was able to verbally demonstrate an understanding of their discharge medications. Patient counseled by accredited pharmacy technicianAndrew. Medications at Discharge Home Medications cholecalciferol (vitamin D3) 125 mcg (5,000 unit) tablet (Vitamin D3) 5,000 unit PO DAILY SUPPLEMENT 04/06/23 amlodipine 5 mg tablet 5 mg PO DAILY blood pressure #45 tabs 04/19/23 atorvastatin 40 mg tablet 40 mg PO QHS CHOLESTEROL #30 tabs 04/19/23 magnesium chloride 64 mg (magnesium chloride) tablet,delayed release (Mag 64) 128 mg (2 x 64 mg) PO DAILY SUPPLEMENT #30 tabs 04/19/23 metoprolol tartrate 50 mg tablet 50 mg PO BID HTN #60 tabs 04/19/23 tamsulosin 0.4 mg capsule 0.4 mg PO DAILY TREAT ENLARGED PROSTRATE #30 caps 04/19/23 ALGUECAL 2 cap PO DAILY SUPPLEMENT 04/21/24 MITOCORE 2 cap PO DAILY SUPPLEMENT 04/21/24 clopidogrel 75 mg tablet (Plavix) 75 mg PO DAILY HEART 04/21/24 coenzyme Q10 10 mg capsule (Co Q-10) 10 mg PO DAILY SUPPLEMENT 04/21/24 hydrocortisone 2.5 % topical ointment 1 applic topical DAILY PRN itching 04/21/24 lorazepam 0.5 mg tablet 0.5 mg PO TID PRN anxiety 04/21/24 omega 3 350 mg-dha 235 mg-epa 90 mg-fish oil 597 mg capsule,delay rel ([place]-3) 1 cap PO DAILY SUPPLEMENT 04/21/24 oregano oil 50 mg-flaxseed oil 25 mg capsule 1 cap PO DAILY SUPPLEMENT 04/21/24 sertraline 50 mg tablet 50 mg PO DAILY 30 days #30 tabs 04/23/24
--- NOTE | 2024-04-23 09:55 | CASEMGMT ---
SESAR FLOWERS Face to Face with patient for initial transition planning/care coordination assessment. SESAR CM introduced self and role at [facility]. Patient sitting in chair, alert and oriented, daughter and son-in-law at bedside. Patient willing to participate in assessment and is able to answer all questions appropriately. Care providers, pharmacy, and demographics verified. PCP: Delia Specialists: [place], box sealing inspector; [place], vascular Preferred Pharmacy: [facility] Insurance: kingsky [facility] Prescription Benefit: yes Living Will/HPOA: yes, daughter Lily Headings LNOK: , daughter, son-in-law Living Arrangements: Patient lives with in a single story home with ramp to enter. is currently in TCU. Patient states he is normally independent at home. Daughter states that they will be staying with patient at discharge. Transportation: self, daughter, son-in-law DME/HHC: Patient states he has walker, grab bars, shower bench, and BP cuff at home. Patient has been to [facility] Acute Rehab in the past. Patient has had [facility] HHC in the past. Patient wishes to discharge home. Patient and family deny need for HHC at discharge. RN CM informed patient and family that should they reconsider HHC or therapy to follow-up with PCP, family voiced understanding. Patient and family state they have no further needs or concerns at this time. CM to follow for discharge planning needs that may arise. Disposition Plan: Patient to discharge home with family support and follow-up plans in place. Kaylin ROSALES, RN, CM
--- NOTE | 2024-04-23 14:04 | DS.PCM_ITS ---
Providers Date of Admission: 04/22/24 Primary Care Physician: Dr. Kezia Lin MD Reason For Visit: SYNCOPE Diagnosis Discharge Diagnosis (1) Nausea & vomiting: Status: Acute Code(s): R11.2 - Nausea with vomiting, unspecified Medications at Discharge Home Medications cholecalciferol (vitamin D3) 125 mcg (5,000 unit) tablet (Vitamin D3) 5,000 unit PO DAILY SUPPLEMENT 04/06/23 amlodipine 5 mg tablet 5 mg PO DAILY blood pressure #45 tabs 04/19/23 atorvastatin 40 mg tablet 40 mg PO QHS CHOLESTEROL #30 tabs 04/19/23 magnesium chloride 64 mg (magnesium chloride) tablet,delayed release (Mag 64) 128 mg (2 x 64 mg) PO DAILY SUPPLEMENT #30 tabs 04/19/23 metoprolol tartrate 50 mg tablet 50 mg PO BID HTN #60 tabs 04/19/23 tamsulosin 0.4 mg capsule 0.4 mg PO DAILY TREAT ENLARGED PROSTRATE #30 caps 04/19/23 ALGUECAL 2 cap PO DAILY SUPPLEMENT 04/21/24 MITOCORE 2 cap PO DAILY SUPPLEMENT 04/21/24 clopidogrel 75 mg tablet (Plavix) 75 mg PO DAILY HEART 04/21/24 coenzyme Q10 10 mg capsule (Co Q-10) 10 mg PO DAILY SUPPLEMENT 04/21/24 hydrocortisone 2.5 % topical ointment 1 applic topical DAILY PRN itching 04/21/24 lorazepam 0.5 mg tablet 0.5 mg PO TID PRN anxiety 04/21/24 omega 3 350 mg-dha 235 mg-epa 90 mg-fish oil 597 mg capsule,delay rel ([place]-3) 1 cap PO DAILY SUPPLEMENT 04/21/24 oregano oil 50 mg-flaxseed oil 25 mg capsule 1 cap PO DAILY SUPPLEMENT 04/21/24 sertraline 50 mg tablet 50 mg PO DAILY 30 days #30 tabs 04/23/24 Hospital Course Operations None Procedures None Summary of Care Provided Minutes Spent on Discharge: 37 Hospital Course: Per HPI: SERGO ROSAS, is a 89 M with past medical history signal for previous CVA with residual right-sided weakness who experienced a syncopal episode while visiting the at the transitional care unit. Per Family who were with the patient at the time of the event he became unresponsive for couple of minutes and vomited x 1. There was no reported history of patient being incontinent of urine. Rapid response was called patient was sent to the ED. Workup did reveal severe hyponatremia with sodium level of 120. Head CT came back negative for any acute intracranial process. He was found to have foci of encephalomalacia within the right frontal and right parietal occipital lobes consistent with old infarct. Decision was made to admit patient to a monitored bed for further management Hospital Course: 1. Syncope secondary to orthostasis with hyponatremia?89-year-old male presented to the hospital while he was visiting his in the transitional care unit. According to family he can get very overwhelmed and it sounds to get a vasovagal episode. He was very distraught yesterday thing that he was going to and was praying to God today he was in a much better mood and I discussed with him the possibility of being discharged home. He does remain orthostatic on vital signs but he is asymptomatic during the exam, and he also refused to have an echo done yesterday. He expressed understanding of the risk benefits of going home and would like to go home today. Sodium has improved with IV fluids and I discussed with him the need to continue with appropriate intake both food and water. Given his anxiety and depression yesterday he was started on Zoloft which will be continued discharge. I did discuss with family that Zoloft can cause hyponatremia so he needs to follow-up with his PCP in 3 to 5 days for monitoring of his electrolytes as an outpatient. 2. Essential hypertension, anxiety, depression, BPH are all chronic medical conditions which complicate his care. His home medications were continued where appropriate. Physical Exam Narrative General: Alert, Oriented x3, Cooperative, No apparent distress, frail HEENT: Atraumatic, PERRLA, EOMI, Normocephalic Oral: Moist Mucosa Neck: Supple, No JVD Lungs: Diminished, Normal air movement, No rhonchi, No wheeze, No rales Cardiovascular: Regular rate, Regular Rhythm, Normal S1, Normal S2, No murmurs Abdomen: Soft, Non Tender, Non-Distended, No Hepato-splenomegaly Extremities: No edema, Capillary Refill Less than 3 Seconds Skin: No rashes, No breakdown Musculoskeletal: No Tenderness to Palpation of Joints or Extremities Neurological: No focal neurological deficits, Motor Exam 5/5 strength throughout, Sensory exam intact to light touch and pain Psych/Mental Status: Normal affect, appropriate Weight / BMI Weight Weight: 144 lb 6.444 oz Body Mass Index (BMI) 21.9 ABG / Lab / Microbiology Data 04/22/24 05:32 04/23/24 06:08 Laboratory: Laboratory Results - last 24 hr 04/23/24 06:08: Sodium 130 L, Potassium 4.2, Chloride 98, Carbon Dioxide 25.0, Anion Gap 7, BUN 20 H, Creatinine 1.15, Estim Creat Clear Calc 41.93, Est GFR (MDRD) Af Amer 77, Est GFR (MDRD) Non-Af 64, BUN/Creatinine Ratio 17.4, Glucose 97, Calcium 8.5 D/C Instructions Discharge Diet: No restrictions Call your doctor if you observe: Fever of 101 or Higher, Shortness of breath, Dizziness, Fainting spells, Swelling in the ankles, Chest pain and Increased palpitations (irregular heartbeat) Meaningful Use Info Meaningful Use Meaningful Use Diagnoses (Choose all that apply): None applicable Ischemic Stroke Statin Dosing Therapy Reference: STATIN DOSE THERAPY REFERENCE: * Patients > 75 years receive moderate or high dose statin therapy. * Patients 75 years or YOUNGER should receive HIGH intensity statin dose unless contraindicated. You will be required to document reason for non-treatment if statin daily dose does not meet guidelines. HIGH DOSE STATIN THERAPY DAILY Atorvastatin > than or = to 40 mg Rosuvastatin > than or = to 20 mg Amlodipine + Atorvastatin > than or = to 2.5/40 mg Ezetimibe + Simvastatin 10/80 mg Simvastatin 80mg Discharge Plan Admission Admit Date/Time: 04/22/24 12:27 Attending Provider: Ozzy Charlton Primary Care Provider: Kezia Lin Consulting Providers: Cameron Pascual Instructions Additional Instructions / Restrictions: Follow-up with your PCP in 3 to 5 days to monitor your sodium and your renal function. Discharge Orders/Prescriptions Prescriptions: New sertraline 50 mg Tablet 50 mg PO DAILY 30 Days Qty: 30 0RF Continued cholecalciferol (vitamin D3) [Vitamin D3] 125 mcg (5,000 unit) tablet 5,000 unit PO DAILY magnesium chloride [Mag 64] 64 mg Tablet,Delayed Release (Dr/Ec) 128 mg PO DAILY Qty: 30 0RF atorvastatin 40 mg tablet 40 mg PO QHS Qty: 30 0RF tamsulosin 0.4 mg capsule 0.4 mg PO DAILY Qty: 30 0RF hydrocortisone 2.5 % ointment 1 applic topical DAILY PRN (Reason: itching) lorazepam 0.5 mg tablet 0.5 mg PO TID PRN (Reason: anxiety) Patient Comments: PT HASNT TAKEN YET, BUT WILL TAKE NEEDED clopidogrel [Plavix] 75 mg tablet 75 mg PO DAILY ALGUECAL capsule 2 cap PO DAILY [place] capsule 2 cap PO DAILY oregano oil-flaxseed oil 50-25 mg capsule 1 cap PO DAILY [place]-3 350 mg-235 mg- 90 mg-597 mg capsule,delayed release(DR/EC) 1 cap PO DAILY coenzyme Q10 [Co Q-10] 10 mg capsule 10 mg PO DAILY Held amlodipine 5 mg Tablet 5 mg PO DAILY Qty: 45 0RF Hold Instructions: Resume on 04/26/24. Rx Instructions: Take a whole tab in the AM and 1/2 tab at bedtime. metoprolol tartrate 50 mg tablet 50 mg PO BID Qty: 60 0RF Hold Instructions: Resume on 04/25/24. Referrals / Follow Up: Kezia Lin MD [Primary Care Provider] - 04/30/24 8:10 am Kezia Lin MD [[facility]] - Disposition Disposition (needs filled in before D/C Order can be placed): Home, Self Care Charges/Coding Visit Charges Inpatient E&M: 56170 Disch Hosp >30min
== END 2024-04-23 10:46 | disposition home or self-care (01) | DRG 312 ==
LOC: ED 13:04 → PCU 13:49
PROVIDERS: Nurse Practitioner; Admitting Provider Internal Medicine; Emergency Provider Student in an Organized Health Care Education/Training Program; PCP Internal Medicine; Visit Provider Family Medicine
DX: I95.1 Orthostatic hypotension (principal); E87.1 Hypo-osmolality and hyponatremia; I69.351 Hemiplegia and hemiparesis following cerebral infarction affecting right dominant side; N13.8 Other obstructive and reflux uropathy; N18.30 Chronic kidney disease, stage 3 unspecified; I12.9 Hypertensive chronic kidney disease with stage 1 through stage 4 chronic kidney disease, or unspecified chronic kidney disease; F32.A Depression, unspecified; F41.9 Anxiety disorder, unspecified; I25.10 Atherosclerotic heart disease of native coronary artery without angina pectoris; E78.5 Hyperlipidemia, unspecified; E55.9 Vitamin D deficiency, unspecified; N40.1 Benign prostatic hyperplasia with lower urinary tract symptoms; Z66 Do not resuscitate; Z63.79 Other stressful life events affecting family and household; Z79.02 Long term (current) use of antithrombotics/antiplatelets; Z79.899 Other long term (current) drug therapy
CPT/HCPCS: 36415; 70450; 71045; 80048; 81001; 82962; 83735; 83930; 83935; 84100; 84300; 84443; 84484; 85025; 85610; 93005; 93308; 97162; 97166; 99284; J7030; A4216; J2405

== ENCOUNTER 2024-04-26 11:39 | Inpatient (IN) | payer MEDICARE, SELFPAY ==
[2024-04-26 12:46] VITALS: BP 176/74; PULSE 57; RESP 16; TEMP 36.7; O2SAT 97; BMI 23.1
--- NOTE | 2024-04-26 13:32 | HP.PCM_ITS ---
HPI - General General Date of Admission: 04/26/24 Date of Service: 04/26/24 Chief Complaint: Here for rehabilitation. HPI Narrative 04/21/2024 SERGO HEADINGS, is a 89 Male who presents to [facility] ED with syncope. Patient visiting on TCU, sitting in chair. Lightheaded, eyes open, unresponsive, diaphoretic. Multiple episodes of vomiting, SALES ENGAGEMENT EXECUTIVE called, Glucose 140. Ate normal breakfast that morning, severe stress 2/2 being ill. Chest X-ray okay, CT brain showed old infarcts, EKG okay. Sodium 121, Troponin 7. 04/21/2024 Admit [facility]. Telemetry, serial enzymes for syncope. IV fluids for hyponatremia. PT/OT for previous stroke. 04/21/2024 Echo EF preserved, no LVOT obstruction, no severe aortic stenosis. 04/22/2024 Praying to God, because he thinks he is dying. IV fluids for syncope 2/2 orthostasis, hyponatremia. Zoloft for depression. Ativan for anxiety. Hold Metoprolol for HTN. 04/23/2024 Discharged home. Patient confused, daughter and son in law staying with him 17/04. Failed home discharge. 04/26/2024 Admit TCU with debility, here for rehabilitation, strengthening, prior to disposition determination. [facility] Medical History (Updated 04/26/24 @ 13:[address] Surya Chapa MD) BPH (benign prostatic hyperplasia) Hyperlipidemia Internal hemorrhoids Diverticulosis Celiac disease Carotid stenosis, bilateral Non-smoker AAA (abdominal aortic aneurysm) Hypertension Stroke/cerebrovascular accident Home Medications ?Medication ?Instructions ?Recorded ?Last Taken ?Type cholecalciferol (vitamin D3) 125 5,000 unit PO DAILY SUPPLEMENT 04/06/23 04/21/24 History mcg (5,000 unit) tablet (Vitamin D3) amlodipine 5 mg tablet 5 mg PO DAILY blood pressure #45 04/19/23 04/21/24 Rx tabs atorvastatin 40 mg tablet 40 mg PO QHS CHOLESTEROL #30 tabs 04/19/23 04/20/24 Rx magnesium chloride 64 mg 128 mg (2 x 64 mg) PO DAILY 04/19/23 04/21/24 Rx (magnesium chloride) SUPPLEMENT #30 tabs tablet,delayed release (Mag 64) metoprolol tartrate 50 mg tablet 50 mg PO BID HTN #60 tabs 04/19/23 04/21/24 Rx tamsulosin 0.4 mg capsule 0.4 mg PO DAILY TREAT ENLARGED 04/19/23 04/21/24 Rx PROSTRATE #30 caps ALGUECAL 2 cap PO DAILY SUPPLEMENT 04/21/24 Unknown History MITOCORE 2 cap PO DAILY SUPPLEMENT 04/21/24 Unknown History clopidogrel 75 mg tablet (Plavix) 75 mg PO DAILY HEART 04/21/24 04/21/24 History coenzyme Q10 10 mg capsule (Co 10 mg PO DAILY SUPPLEMENT 04/21/24 Unknown History Q-10) hydrocortisone 2.5 % topical 1 applic topical DAILY PRN itching 04/21/24 Unknown History ointment lorazepam 0.5 mg tablet 0.5 mg PO TID PRN anxiety 04/21/24 Unknown History omega 3 350 mg-dha 235 mg-epa 90 1 cap PO DAILY SUPPLEMENT 04/21/24 Unknown History mg-fish oil 597 mg capsule,delay rel ([place]-3) oregano oil 50 mg-flaxseed oil 25 1 cap PO DAILY SUPPLEMENT 04/21/24 Unknown History mg capsule sertraline 50 mg tablet 50 mg PO DAILY Depression 30 days 04/23/24 Unknown Rx #30 tabs Allergy/AdvReac Type Severity Reaction Status Date / Time Food Allergies: Uncoded AdvReac Intermediate Other Verified 04/21/24 11:49 Family History Father CVA (cerebral vascular accident) Sister Lupus (systemic lupus erythematosus) Brother Diabetes Brother Diabetes Surgical History History of excision of lesion History of excision of lesion H/O abdominal aortic aneurysm repair Social History (Updated 04/26/24 @ 13:[address] Surya Chapa MD) household members: spouse housing: other details: Private one-story home with no steps. 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 pets and animals: Yes Smoking Status: Never smoker alcohol intake: never substance use type: does not use ROS Constitutional Constitutional: Reports weakness; Denies chills, fever(s) or weight gain ENT HEENT: Denies headache(s), nasal congestion or nasal discharge Cardiovascular Cardiovascular: Denies chest pain or palpitations Respiratory/Chest Respiratory/Chest: Denies cough, excessive phlegm production or shortness of breath with exertion Gastrointestinal Gastrointestinal: Denies abdominal pain, nausea or vomiting Genitourinary Genitourinary: Denies dysuria Musculoskeletal Musculoskeletal: Denies joint pain or joint swelling Integumentary Integumentary: Denies rash or wounds Neurologic Neurologic: Reports confusion and weakness; Denies focal weakness, numbness or tingling Psychiatric Psychiatric: Denies anxiety, auditory hallucinations, depression, homicidal ideation or suicidal ideation Vital Signs Vital Signs Vital Signs: 04/26/24 12:46 Temperature 98.0 F Temperature Source Temporal Pulse Rate 57 L Respiratory Rate 16 Blood Pressure 176/74 H Blood Pressure Mean 108 Blood Pressure Source Monitor Blood Pressure Position Semi-Fowlers Blood Pressure Location Right Arm Pulse Ox 97 Oxygen Delivery Method Room Air Physical Exam Const alert General Appearance: cooperative HEENT normocephalic Eyes PERRL and EOMs intact bilaterally Neck supple, no JVD and no carotid bruits Resp normal respiratory effort, normal air movement and clear to auscultation bilaterally Cardio regular rate and regular rhythm GI normal to inspection, nondistended, normoactive bowel sounds, non-tender and non-distended Extremity normal capillary refill General Extremity: Negative for edema Skin no rashes or lesions noted General Skin Exam: no breakdown Psych affect normal Appearance: appropriate Assessment & Plan Assessment/Plan (1) Debility: (2) Acute delirium: (3) Episode of syncope: (4) Hyponatremia: (5) Orthostatic hypotension: (6) Dehydration: (7) Panic disorder: (8) Coronary artery disease: (9) Stroke/cerebrovascular accident: QUALIFIERS: CVA mechanism: unspecified Qualified Code(s): I63.9 - Cerebral infarction, unspecified (10) Essential (primary) hypertension: (11) Hyperlipidemia: QUALIFIERS: Hyperlipidemia type: unspecified Qualified Code(s): E78.5 - Hyperlipidemia, unspecified (12) Hypomagnesemia: (13) BPH (benign prostatic hyperplasia): PLAN: Plan 89 year old male with below past medical history recently hospitalized for syncope, orthostatic hypotension, dehydration, hyponatremia, failed discharge home 2/2 acute delirium, admitted to TCU with debility, here for rehabilitation, strengthening, prior to disposition determination. * Debility - PT/OT/ST. * Pain - Tylenol 1000mg q6 prn pain (1-10). * Bowel - senna/colace 1 tablet bid prn, Magnesium citrate 300ml x 1 prn. * Adult immunization - Administer pneumonia vaccine, covid vaccine, flu vaccine as appropriate. * DVT prophylaxis - Lovenox 40mg sc daily. * Acute delirium - cbcd, cmp, ua, MRI brain. * Hypertension - Metoprolol 50mg bid, Amlodipine 5mg daily, 2.5mg qhs, blood pressure high, unknown if he took his medications today, Amlodipine 5mg po x 1 dose. * Hyperlipidemia - Atorvastatin 40mg qhs, [place] 3 1gm daily. * Vitamin D deficiency - D3 125mcg daily. * Stroke - Plavix 75mg daily. * Rash - HC 2.5% topidal daily prn. * Panic disorder - Lorazepam 0.5mg tid prn. * Hypomagnesemia - Magnesium chloride 128mg daily. * BPH - Tamsulosin 0.4mg daily. * Hyponatremia - may need IV normal saline, or fluid restriction. * Dehydration - may need IV normal saline.
[2024-04-26] MEDS: amLODIPine 5 MG Tablet PO (14:44)
--- NOTE | 2024-04-26 15:35 | CASEMGMT ---
Social Work SW met with patient and dtr to complete admission assessment. Pt known to this worker from previous stay. Verified contacts. Patient wishes to be DNR-CCA, no intubation. Nursing notified. Pt is pleasantly confused. Educated to [facility] insurance and continued stay process. Since is a patient in TCU as well, dtr will be working with this worker to determine best DC plan for pt and . SW will continue to follow for DC planning and support. Evelyn Vallejo, GUCCI SILVERW
[2024-04-26 16:18] LABS: Absolute Neutrophil Count 3.5 X10^3/uL (2.0-7.7); Basophil# 0.04 X10^3/uL; Basophil% 0.6 % (0-1); Eosinophil# 0.47 X10^3/uL; Eosinophils% 7.3 % (0-5); Hematocrit 35.1 % (40-54); Hemoglobin 11.9 g/dL (13.0-16.5); Lymphocyte % 26.6 % (19-41); Mean Corp Hgb Conc 33.9 g/dL (32-36); Mean Corpuscular Hgb 30.9 pg (27.0-32.0); Mean Corpuscular Volume 91.2 fL (80-94); Mean Platelet Vol. 10.8 fl (6.2-12.0); Monocyte# 0.66 X10^3/uL; Monocyte% 10.3 % (0-10); NRBC Flagged by Analyzer 0 % (0-5); Neutrophil # 3.51 X10^3/uL (2.7-7.7); Neutrophil % 54.9 % (47-70); Platelet Count 232 K/mm3 (150-450); RBC Distribution Width CV 14.7 % (11.6-14.6); RBC Distribution Width SD 49.5 fl (35.1-43.9); Red Blood Count 3.85 M/mm3 (4.6-6.2); White Blood Count 6.4 K/mm3 (4.4-11.0)
[2024-04-26 16:42] LABS: ALB/GLOB Ratio 0.8 RATIO (0.9-2.4); AST(SGOT) 15 U/L (15-37); Alanine Aminotransfer ALT/SGPT 22 U/L (16-61); Albumin, Serum 2.9 g/dL (3.2-5.0); Alkaline Phosphatase 65 U/L (45-117); Anion Gap 6 (5-15); BUN 23 mg/dL (7-18); Calcium,Total 8.4 mg/dL (8.5-10.1); Chloride 96 mmol/L (98-107); Creatinine, Serum 1.15 mg/dL (0.70-1.30); EST Glomerular Filtration Rate 64 mL/min (>60); Est Glom Filt Rate - Afr Amer 77 mL/min (>60); Estimated Creatinine Clearance 42.31 ml/min; Globulin 3.5 g/dL (2.2-4.2); Glucose 114 mg/dL (74-106); Potassium 4.4 mmol/L (3.5-5.1); Protein, Total 6.4 g/dL (6.4-8.2); Sodium Level 130 mmol/L (136-145)
[2024-04-26 17:28] LABS: Bacteria 0 SEEN /hpf (None Seen); Mucous, Urine 0 SEEN /hpf (<or=2+); Red Blood Cells-Urine 0 SEEN /hpf (0-5); Squamous Epithelial Cells - UA 0 SEEN /hpf (0-5); White Blood Cells 0 SEEN /hpf (0-5)
[2024-04-26 17:37] LABS: Color, Urine Yellow (Yellow); Glucose, Dipstick Normal (Normal); Ketone-Dipstick Negative (Negative); Leukocyte Esterase-Dipstick Negative /ul (Negative); Nitrite-Dipstick Negative (Negative); Occult Blood-Urine Negative /ul (Negative); Protein-Dipstick Negative (Negative); Urine Bilirubin Dipstick Negative (Negative); Urine Clarity Clear (Clear); Urine Urobilinogen Normal (Normal)
[2024-04-26 18:52] LABS: Thyroid Stim Hormone (TSH) 1.54 uIU/mL (0.358-3.74)
[2024-04-26 21:18] VITALS: BP 166/79; PULSE 66
[2024-04-26] MEDS: Metoprolol Tartrate 50 MG Tablet PO (21:18)
[2024-04-26] MEDS: Atorvastatin Calcium 40 MG Tablet PO (21:18)
[2024-04-26] MEDS: amLODIPine 2.5 MG Tablet PO (21:18)
[2024-04-26] MEDS: Nystatin Powder 15gm Bottle 1 APPLIC TOPICAL (21:24)
[2024-04-26] MEDS: Menthol/Lanolin/Calamine/Znox 113 GM Tube 1 APPLIC TOPICAL (21:24)
[2024-04-27 04:59] LABS: Absolute Lymphocyte Count 1.36 X10^3/uL (0.83-4.51); Absolute Neutrophil Count 4.6 X10^3/uL (2.0-7.7); Basophil# 0.04 X10^3/uL; Basophil% 0.5 % (0-1); Eosinophil# 0.57 X10^3/uL; Eosinophils% 7.7 % (0-5); Hematocrit 35.7 % (40-54); Hemoglobin 12.2 g/dL (13.0-16.5); Lymphocyte # 1.36 X10^3/ul (0.83-4.51); Lymphocyte % 18.4 % (19-41); Mean Corp Hgb Conc 34.2 g/dL (32-36); Mean Corpuscular Hgb 30.4 pg (27.0-32.0); Mean Platelet Vol. 10.5 fl (6.2-12.0); Monocyte# 0.77 X10^3/uL; Monocyte% 10.4 % (0-10); NRBC Flagged by Analyzer 0 % (0-5); Neutrophil # 4.64 X10^3/uL (2.7-7.7); Neutrophil % 62.7 % (47-70); Platelet Count 224 K/mm3 (150-450); RBC Distribution Width CV 14.3 % (11.6-14.6); RBC Distribution Width SD 46.5 fl (35.1-43.9); Red Blood Count 4.01 M/mm3 (4.6-6.2); White Blood Count 7.4 K/mm3 (4.4-11.0)
[2024-04-27 05:24] LABS: Anion Gap 7 (5-15); BUN 22 mg/dL (7-18); BUN/Creat Ratio 21.4 RATIO (10-20); Calcium,Total 9.1 mg/dL (8.5-10.1); Chloride 94 mmol/L (98-107); Creatinine, Serum 1.03 mg/dL (0.70-1.30); EST Glomerular Filtration Rate 73 mL/min (>60); Est Glom Filt Rate - Afr Amer 88 mL/min (>60); Estimated Creatinine Clearance 47.24 ml/min; Glucose 98 mg/dL (74-106); Sodium Level 128 mmol/L (136-145)
[2024-04-27] MEDS: Enoxaparin 40 MG/0.4 ML Syringe SC (06:25)
[2024-04-27 08:07] VITALS: PULSE 69
[2024-04-27] MEDS: Tamsulosin HCl 0.4 MG Capsule PO (08:07)
[2024-04-27] MEDS: Magnesium Chloride 64 MG Delay Rel.Tablet 128 MG PO (08:07)
[2024-04-27] MEDS: Omega-3 Acid Ethyl Esters 1 GM Capsule PO (08:07)
[2024-04-27] MEDS: Menthol/Lanolin/Calamine/Znox 113 GM Tube 1 APPLIC TOPICAL (08:07)
[2024-04-27] MEDS: Nystatin Powder 15gm Bottle 1 APPLIC TOPICAL (08:07)
[2024-04-27] MEDS: Metoprolol Tartrate 50 MG Tablet PO (08:07)
[2024-04-27] MEDS: Clopidogrel Bisulfate 75 MG Tablet PO (08:08)
[2024-04-27] MEDS: amLODIPine 5 MG Tablet PO (08:08)
[2024-04-27] MEDS: Cholecalciferol (Vit D3) 125 MCG CAPSULE (5,000 UNITS) PO (08:08)
[2024-04-27] MEDS: Tuberculin,Purif.prot.deriv. 50 TU/ML Vial 0.1 ML ID (09:39)
[2024-04-27 10:10] VITALS: BP 132/72; PULSE 69; RESP 16; TEMP 36.3; O2SAT 93
[2024-04-27 10:51] LABS: Osmolality, Serum 270 mOsm/KG (280-301)
[2024-04-27 11:57] LABS: Urine Sodium 88 mmol/L (Not Establ.)
[2024-04-27 12:12] LABS: Osmolality, Urine 382 mOsm/KG
--- NOTE | 2024-04-27 19:31 | NURSING ---
Patient had emesis of partially digested food, care provided.
[2024-04-27 19:35] VITALS: BP 129/78; PULSE 78; RESP 18; TEMP 36.2; O2SAT 95
[2024-04-27 19:44] VITALS: BP 135/75; PULSE 64; O2SAT 96
--- NOTE | 2024-04-27 19:59 | NURSING ---
Family updated on Dr. Chapa order to send to ER for evaluation.
[2024-04-27 20:04] VITALS: BP 147/75; PULSE 61; TEMP 36.2; O2SAT 94
--- NOTE | 2024-04-27 20:09 | NURSING ---
1935; Pt was in room in wheelchair. Son states he was talking with pt who was answering with head nods and occasionally opened eyes. Pt then rolled eyes back in head and appeared to go unresponsive per son and then pt began vomiting. Pt transferred from to bed with assist of JEWEL HOLE ROUGH OPENER and nurse in room. VS stabke 97.1, 18 rr, 95% on RA, BP 129/78, Blood sugar 181. Pt states it is hard to breath and he vomited 3 more mouth fulls over next few min. Pt lungs clear and diminished. He answers questions but keeps eyes closed. Denies pain or dizziness. Call to Dr. Chapa to update. Instructed to send pt to ER.
--- NOTE | 2024-04-27 20:16 | NURSING ---
2014; Pt taken to ED per bed with escort of GROCERY STOCK CLERK x2.
--- NOTE | 2024-04-27 20:18 | NURSING ---
Patient left floor via bed with aides x2 for ER for evaluation. Family with patient.
--- NOTE | 2024-04-27 20:22 | NURSING ---
2018; Report called to Anya in ED regarding pt. States pt arrived to ED as report was given and she will check him in. Family daughter and son at pt bedside.
[2024-04-27 20:43] LABS: Bedside Glucose 181 mg/dL (74-106)
--- NOTE | 2024-04-28 09:54 | DS.PCM_ITS ---
Providers Date of Admission: 04/26/24 Primary Care Physician: Dr. Kezia Lin MD Reason For Visit: DEBILITY/HYPONEUTREMIA Diagnosis Discharge Diagnosis (1) Debility: Status: Acute Code(s): R53.81 - Other malaise (2) Acute delirium: Status: Acute Code(s): R41.0 - Disorientation, unspecified (3) Episode of syncope: Status: Acute Code(s): R55 - Syncope and collapse (4) Hyponatremia: Status: Acute Code(s): E87.1 - Hypo-osmolality and hyponatremia (5) Orthostatic hypotension: Status: Resolved Code(s): I95.1 - Orthostatic hypotension (6) Dehydration: Status: Acute Code(s): E86.0 - Dehydration (7) Panic disorder: Status: Acute Code(s): F41.0 - Panic disorder [episodic paroxysmal anxiety] (8) Coronary artery disease: Status: Acute Code(s): I25.10 - Atherosclerotic heart disease of [place] coronary artery without angina pectoris (9) Stroke/cerebrovascular accident: Status: Acute Code(s): I63.9 - Cerebral infarction, unspecified Qualifiers: CVA mechanism: unspecified Qualified Code(s): I63.9 - Cerebral infarction, unspecified (10) Essential (primary) hypertension: Status: Acute Code(s): I10 - Essential (primary) hypertension (11) Hyperlipidemia: Status: Acute Code(s): E78.5 - Hyperlipidemia, unspecified Qualifiers: Hyperlipidemia type: unspecified Qualified Code(s): E78.5 - Hyperlipidemia, unspecified (12) Hypomagnesemia: Status: Acute Code(s): E83.42 - Hypomagnesemia (13) BPH (benign prostatic hyperplasia): Status: Acute Code(s): N40.0 - Benign prostatic hyperplasia without lower urinary tract symptoms Plan 89 year old male with below past medical history recently hospitalized for syncope, orthostatic hypotension, dehydration, hyponatremia, failed discharge home 2/2 acute delirium, admitted to TCU with debility, here for rehabilitation, strengthening, prior to disposition determination. * Debility - PT/OT/ST. * Pain - Tylenol 1000mg q6 prn pain (1-10). * Bowel - senna/colace 1 tablet bid prn, Magnesium citrate 300ml x 1 prn. * Adult immunization - Administer pneumonia vaccine, covid vaccine, flu vaccine as appropriate. * DVT prophylaxis - Lovenox 40mg sc daily. * Acute delirium - cbcd, cmp, ua, MRI brain. * Hypertension - Metoprolol 50mg bid, Amlodipine 5mg daily, 2.5mg qhs, blood pressure high, unknown if he took his medications today, Amlodipine 5mg po x 1 dose. * Hyperlipidemia - Atorvastatin 40mg qhs, [place] 3 1gm daily. * Vitamin D deficiency - D3 125mcg daily. * Stroke - Plavix 75mg daily. * Rash - HC 2.5% topidal daily prn. * Panic disorder - Lorazepam 0.5mg tid prn. * Hypomagnesemia - Magnesium chloride 128mg daily. * BPH - Tamsulosin 0.4mg daily. * Hyponatremia - may need IV normal saline, or fluid restriction. * Dehydration - may need IV normal saline. Medications at Discharge Home Medications cholecalciferol (vitamin D3) 125 mcg (5,000 unit) tablet (Vitamin D3) 5,000 unit PO DAILY SUPPLEMENT 04/06/23 amlodipine 5 mg tablet 5 mg PO DAILY blood pressure #45 tabs 04/19/23 atorvastatin 40 mg tablet 40 mg PO QHS CHOLESTEROL #30 tabs 04/19/23 magnesium chloride 64 mg (magnesium chloride) tablet,delayed release (Mag 64) 128 mg (2 x 64 mg) PO DAILY SUPPLEMENT #30 tabs 04/19/23 metoprolol tartrate 50 mg tablet 50 mg PO BID HTN #60 tabs 04/19/23 tamsulosin 0.4 mg capsule 0.4 mg PO DAILY TREAT ENLARGED PROSTRATE #30 caps 04/19/23 ALGUECAL 2 cap PO DAILY SUPPLEMENT 04/21/24 clopidogrel 75 mg tablet (Plavix) 75 mg PO DAILY HEART 04/21/24 hydrocortisone 2.5 % topical ointment 1 applic topical DAILY PRN itching 04/21/24 lorazepam 0.5 mg tablet 0.5 mg PO TID PRN anxiety 04/21/24 omega 3 350 mg-dha 235 mg-epa 90 mg-fish oil 597 mg capsule,delay rel ([place]-3) 1 cap PO DAILY SUPPLEMENT 04/21/24 calamine phenolated lotion 1 applic topical BID 04/27/24 enoxaparin 40 mg/0.4 mL subcutaneous syringe 40 mg subcut DAILY 04/27/24 nystatin 100,000 unit/gram topical powder 1 applic topical BID 04/27/24 Hospital Course Operations None Procedures None Summary of Care Provided Minutes Spent on Discharge: 30 Hospital Course: 89 year old male with below past medical history recently hospitalized for syncope, orthostatic hypotension, dehydration, hyponatremia, failed discharge home 2/2 acute delirium, admitted to TCU with debility, here for rehabilitation, strengthening, prior to disposition determination. 04/27/2024 Eyes rolled up in head, multiple episodes of vomiting, same thing happened 04/21/2024 when he was admitted to [facility]. Discharge to [facility] ED for evaluation, possible admission to hospital, may benefit from video monitoring for undiagnosed seizure disorder. Weight / BMI Weight Weight: 66.905 kg Body Mass Index (BMI) 23.1 ABG / Lab / Microbiology Data 04/27/24 03:45 04/27/24 03:45 Laboratory: Laboratory Results - last 24 hr 04/27/24 10:30: Serum Osmolality 270 L 04/27/24 11:35: Urine Osmolality 382, Ur Random Sodium 88 04/27/24 19:46: POC Glucose 181 H Microbiology: Microbiology 04/26/24 17:15 Urine, Clean Catch Urine Culture - Preliminary Culture exhibits no growth. D/C Instructions Discharge Diet: No restrictions Discharge Activity: Return to Normal Activity, May Shower and Use Walker Weight Bearing Status: Weight bearing as tolerated Call your doctor if you observe: Fever of 101 or Higher, Inability to urinate, Inability to have a bowel movement, Shortness of breath, Dizziness, Fainting spells, Swelling in the ankles, Chest pain and Uncontrolled pain Additional Instructions: Discharge to [facility] ED for evaluation, possible admission to hospital, may benefit from video monitoring for undiagnosed seizure disorder. Meaningful Use Info Meaningful Use Meaningful Use Diagnoses (Choose all that apply): None applicable Ischemic Stroke Statin Dosing Therapy Reference: STATIN DOSE THERAPY REFERENCE: * Patients > 75 years receive moderate or high dose statin therapy. * Patients 75 years or YOUNGER should receive HIGH intensity statin dose unless contraindicated. You will be required to document reason for non-treatment if statin daily dose does not meet guidelines. HIGH DOSE STATIN THERAPY DAILY Atorvastatin > than or = to 40 mg Rosuvastatin > than or = to 20 mg Amlodipine + Atorvastatin > than or = to 2.5/40 mg Ezetimibe + Simvastatin 10/80 mg Simvastatin 80mg Discharge Plan Admission Admit Date/Time: 04/26/24 11:39 Primary Reason for Your Visit: Debility. Attending Provider: Surya Chapa Chi Primary Care Provider: Kezia Lin Instructions Additional Instructions / Restrictions: Discharge to [facility] ED for evaluation, possible admission to hospital, may benefit from video monitoring for undiagnosed seizure disorder. Discharge Orders/Prescriptions Prescriptions: No Action cholecalciferol (vitamin D3) [Vitamin D3] 125 mcg (5,000 unit) tablet 5,000 unit PO DAILY amlodipine 5 mg Tablet 5 mg PO DAILY Qty: 45 0RF Rx Instructions: Take a whole tab in the AM and 1/2 tab at bedtime. magnesium chloride [Mag 64] 64 mg Tablet,Delayed Release (Dr/Ec) 128 mg PO DAILY Qty: 30 0RF atorvastatin 40 mg tablet 40 mg PO QHS Qty: 30 0RF tamsulosin 0.4 mg capsule 0.4 mg PO DAILY Qty: 30 0RF metoprolol tartrate 50 mg tablet 50 mg PO BID Qty: 60 0RF hydrocortisone 2.5 % ointment 1 applic topical DAILY PRN (Reason: itching) lorazepam 0.5 mg tablet 0.5 mg PO TID PRN (Reason: anxiety) Patient Comments: PT HASNT TAKEN YET, BUT WILL TAKE NEEDED clopidogrel [Plavix] 75 mg tablet 75 mg PO DAILY ALGUECAL capsule 2 cap PO DAILY [place]-3 350 mg-235 mg- 90 mg-597 mg capsule,delayed release(DR/EC) 1 cap PO DAILY enoxaparin 40 mg/0.4 mL syringe 40 mg subcut DAILY calamine phenolated Lotion 1 applic topical BID nystatin 100,000 unit/gram powder 1 applic topical BID Referrals / Follow Up: Kezia Lin MD [Primary Care Provider] - Disposition Disposition (needs filled in before D/C Order can be placed): Acute Care Hospital [facility]
--- NOTE | 2024-05-08 08:09 | MDS.RN ---
Information for the MDS was obtained from review of the clinical record, interview of resident, staff, and direct observation of resident?s care.
== END 2024-04-27 23:39 | disposition home or self-care (01) | DRG 312 ==
PROVIDERS: Admitting Provider Family Medicine Geriatric Medicine; PCP Internal Medicine; Referring Provider Family Medicine Geriatric Medicine; Visit Provider Family Medicine Geriatric Medicine
DX: I95.1 Orthostatic hypotension (principal); E87.1 Hypo-osmolality and hyponatremia; I10 Essential (primary) hypertension; E55.9 Vitamin D deficiency, unspecified; E86.0 Dehydration; I25.10 Atherosclerotic heart disease of native coronary artery without angina pectoris; E78.5 Hyperlipidemia, unspecified; R11.10 Vomiting, unspecified; F41.0 Panic disorder [episodic paroxysmal anxiety]; N40.0 Benign prostatic hyperplasia without lower urinary tract symptoms; Z79.899 Other long term (current) drug therapy; Z79.02 Long term (current) use of antithrombotics/antiplatelets
CPT/HCPCS: 36415; 80048; 80053; 81001; 82962; 83930; 83935; 84300; 84443; 85025; 87086; 92523; 97110; 97129; 97162; 97165; 97530; 97535; 97802

== ENCOUNTER 2024-04-27 20:23 | Inpatient (IN) | payer MEDICARE, SELFPAY ==
[2024-04-27 20:24] VITALS: PULSE 60; RESP 15; TEMP 35.7; O2SAT 97; BMI 23.6
--- NOTE | 2024-04-27 20:56 | EKG12_ITS ---
Test Reason : ALT LOC Blood Pressure : / mmHG Vent. Rate : 062 BPM Atrial Rate : 062 BPM P-R Int : 194 ms QRS Dur : 094 ms QT Int : 420 ms P-R-T Axes : 030 -22 025 degrees QTc Int : 426 ms Normal sinus rhythm Nonspecific ST and T wave abnormality Abnormal ECG Confirmed by Raúl Smith ([id number]), photo editor AMY BUSTOS ([id number]) on 04/30/2024 1:09:25 PM Referred By: Confirmed By:Raúl Smith
--- NOTE | 2024-04-27 20:56 | CT_ITS ---
EXAM: CT HEAD WITHOUT INTRAVENOUS CONTRAST CLINICAL INDICATION: Unresponsiveness TECHNIQUE: Multiple axial images were obtained of the head without intravenous contrast. This CT exam was performed using one or more of the following dose reduction techniques: automated exposure control, adjustment of the mA and/or kV according to patient size, and/or use of iterative reconstruction technique. RADIATION DOSE: CTDIvol = 44.99 mGy, DLP = 897.35 mGy-cm COMPARISON: April 21, 2024. FINDINGS: BRAIN AND EXTRA-AXIAL SPACES: There is moderate multifocal chronic encephalomalacia in the right cerebrum. No intra- or extra-axial hemorrhage. Small chronic linear hypodensity in the left cerebellum. BONES/JOINTS: Unremarkable. No discrete lytic or blastic abnormalities. VASCULATURE: Moderate distal vertebral artery calcifications and cavernous carotid calcifications. No dense artery sign. Mild deep periventricular chronic white matter change. Postoperative changes of the globes. SINUSES: Unremarkable as visualized. Clear. MASTOID AIR CELLS: Unremarkable. Clear. ORBITS: See above. CT/Brain/Head without Contrast IMPRESSION: No acute intracranial abnormality. Chronic changes including multifocal chronic infarcts in the right MCA and BABY SITTER distributions. Electronically Signed: Mariam Caal MD at 22:13 EDT ,
--- NOTE | 2024-04-27 21:23 | RAD_ITS ---
EXAM: XR CHEST, 1 VIEW CLINICAL INDICATION: syncope TECHNIQUE: Frontal view of the chest. COMPARISON: April 21, 2024 FINDINGS: LUNGS AND PLEURAL SPACES: Minimal vascular crowding and linear atelectasis or scarring at the left lung base. No convincing infiltrates. No pneumothorax. No effusion. HEART: Unremarkable. Cardiac silhouette not enlarged. MEDIASTINUM: Peripheral calcification of the aortic arch and descending thoracic aorta again noted. Central airways and mediastinal contour are unremarkable. BONES/JOINTS: Unremarkable. No acute fracture. SOFT TISSUES: Unremarkable. RAD/Chest 1 View (Portable) IMPRESSION: No acute findings in the chest. Electronically Signed: Mariam Caal MD at 21:46 EDT ,
[2024-04-27 21:24] VITALS: BP 178/71; PULSE 59; RESP 16; O2SAT 97
[2024-04-27 21:24] LABS: Absolute Lymphocyte Count 1.56 X10^3/uL (0.83-4.51); Basophil# 0.03 X10^3/uL; Basophil% 0.3 % (0-1); Eosinophil# 0.27 X10^3/uL; Eosinophils% 3.1 % (0-5); Hematocrit 34.9 % (40-54); Hemoglobin 12.2 g/dL (13.0-16.5); Lymphocyte # 1.56 X10^3/ul (0.83-4.51); Lymphocyte % 17.7 % (19-41); Mean Corpuscular Hgb 30.4 pg (27.0-32.0); Mean Platelet Vol. 10.5 fl (6.2-12.0); Monocyte# 0.92 X10^3/uL; Monocyte% 10.5 % (0-10); NRBC Flagged by Analyzer 0 % (0-5); Neutrophil # 5.99 X10^3/uL (2.7-7.7); Neutrophil % 68.1 % (47-70); Platelet Count 232 K/mm3 (150-450); RBC Distribution Width SD 45.5 fl (35.1-43.9); Red Blood Count 4.01 M/mm3 (4.6-6.2); White Blood Count 8.8 K/mm3 (4.4-11.0)
[2024-04-27 21:26] LABS: Blood Gas Specimen Type VEN; O2 Delivery Device Room Air; SITE Not entered; VBG BASE EXCESS 3 mmol/L (-1.0-3.5); VBG Bicarbonate 28 mmol/L (22-26); VBG PO2 43 mmHg (25-40); VBG SO2 78 % (50-70); VBG TCO2 30 mmol/L (23-33); VBG pCO2 45.7 mmHg (41-51)
[2024-04-27 21:51] LABS: AST(SGOT) 16 U/L (15-37); Alanine Aminotransfer ALT/SGPT 24 U/L (16-61); Albumin, Serum 3.1 g/dL (3.2-5.0); Alkaline Phosphatase 69 U/L (45-117); Anion Gap 8 (5-15); BUN 21 mg/dL (7-18); BUN/Creat Ratio 19.1 RATIO (10-20); Bilirubin, Direct 0.21 mg/dL (0.00-0.30); Calcium,Total 8.7 mg/dL (8.5-10.1); Chloride 90 mmol/L (98-107); EST Glomerular Filtration Rate 67 mL/min (>60); Est Glom Filt Rate - Afr Amer 81 mL/min (>60); Estimated Creatinine Clearance 45.77 ml/min; Globulin 3.7 g/dL (2.2-4.2); Glucose 154 mg/dL (74-106); Potassium 3.9 mmol/L (3.5-5.1); Protein, Total 6.8 g/dL (6.4-8.2); Sodium Level 125 mmol/L (136-145); Thyroid Stim Hormone (TSH) 3.81 uIU/mL (0.358-3.74)
[2024-04-27 22:00] VITALS: BP 154/70; PULSE 60; RESP 13; O2SAT 94
[2024-04-27 22:04] LABS: Bacteria 0 SEEN /hpf (None Seen); Mucous, Urine 0 SEEN /hpf (<or=2+); Red Blood Cells-Urine 0 SEEN /hpf (0-5); Squamous Epithelial Cells - UA 0 SEEN /hpf (0-5); White Blood Cells 0 SEEN /hpf (0-5)
[2024-04-27 22:11] LABS: Lactic Acid 1.2 mmol/L (0.4-1.9)
[2024-04-27 22:18] LABS: Color, Urine Yellow (Yellow); Glucose, Dipstick Normal (Normal); Ketone-Dipstick Negative (Negative); Leukocyte Esterase-Dipstick Negative /ul (Negative); Nitrite-Dipstick Negative (Negative); Occult Blood-Urine Negative /ul (Negative); Protein-Dipstick 30 mg/dl (Negative); Urine Bilirubin Dipstick Negative (Negative); Urine Clarity Clear (Clear); Urine Urobilinogen Normal (Normal)
[2024-04-27 23:00] VITALS: BP 148/70; PULSE 63; RESP 16; O2SAT 95
[2024-04-27 23:12] LABS: Procalcitonin < 0.04 ng/mL (0.00-0.09)
--- NOTE | 2024-04-27 23:13 | EX.ED.DYSGE1 ---
HPI History of Present Illness Chief Complaint: Alt LOC Informant: family Narrative Narrative: Patient is a 89-year-old male with past medical history of hypertension and hyperlipidemia as well as previous CVA. He was recently admitted to the hospital secondary to a syncopal event and found to be hyponatremic. After being discharged from the hospital he had persistent weakness and it was felt that he needed to be in the transitional care unit secondary to weakness and mild confusion. Family reports that this evening patient had a bout of passing out and 1 bout of vomiting during this time that is very similar to his recent need for admission to the hospital. Since that time he has had persistent weakness and depressed mental status and with concern that his sodium was dropping low once again he was sent down to the ER for repeat evaluation [facility] Medical History (Updated 04/27/24 @ 23:[address] Hero Betancourt, DO) BPH (benign prostatic hyperplasia) Hyperlipidemia Internal hemorrhoids Diverticulosis Celiac disease Carotid stenosis, bilateral Non-smoker AAA (abdominal aortic aneurysm) Hypertension Stroke/cerebrovascular accident Home Medications ?Medication ?Instructions ?Recorded ?Last Taken ?Type cholecalciferol (vitamin D3) 125 5,000 unit PO DAILY SUPPLEMENT 04/06/23 04/21/24 History mcg (5,000 unit) tablet (Vitamin D3) amlodipine 5 mg tablet 5 mg PO DAILY blood pressure #45 04/19/23 04/21/24 Rx tabs atorvastatin 40 mg tablet 40 mg PO QHS CHOLESTEROL #30 tabs 04/19/23 04/20/24 Rx magnesium chloride 64 mg 128 mg (2 x 64 mg) PO DAILY 04/19/23 04/21/24 Rx (magnesium chloride) SUPPLEMENT #30 tabs tablet,delayed release (Mag 64) metoprolol tartrate 50 mg tablet 50 mg PO BID HTN #60 tabs 04/19/23 04/21/24 Rx tamsulosin 0.4 mg capsule 0.4 mg PO DAILY TREAT ENLARGED 04/19/23 04/21/24 Rx PROSTRATE #30 caps ALGUECAL 2 cap PO DAILY SUPPLEMENT 04/21/24 Unknown History clopidogrel 75 mg tablet (Plavix) 75 mg PO DAILY HEART 04/21/24 04/21/24 History hydrocortisone 2.5 % topical 1 applic topical DAILY PRN itching 04/21/24 Unknown History ointment lorazepam 0.5 mg tablet 0.5 mg PO TID PRN anxiety 04/21/24 Unknown History omega 3 350 mg-dha 235 mg-epa 90 1 cap PO DAILY SUPPLEMENT 04/21/24 Unknown History mg-fish oil 597 mg capsule,delay rel ([place]-3) calamine phenolated lotion 1 applic topical BID 04/27/24 Unknown History enoxaparin 40 mg/0.4 mL 40 mg subcut DAILY 04/27/24 Unknown History subcutaneous syringe nystatin 100,000 unit/gram topical 1 applic topical BID 04/27/24 Unknown History powder Allergy/AdvReac Type Severity Reaction Status Date / Time Food Allergies: Uncoded AdvReac Intermediate Other Verified 04/21/24 11:49 Family History Father CVA (cerebral vascular accident) Sister Lupus (systemic lupus erythematosus) Brother Diabetes Brother Diabetes Surgical History History of excision of lesion History of excision of lesion H/O abdominal aortic aneurysm repair Social History (Updated 04/26/24 @ 13:[address] Surya Chapa MD) household members: spouse housing: other details: Private one-story home with no steps. 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 pets and animals: Yes Smoking Status: Never smoker alcohol intake: never substance use type: does not use ROS ROS ED ROS Narrative Review of systems is unobtainable secondary to patient's mental status Review of Systems ROS Unobtainable: due to mental status EXAM Physical Exam Const Vital Signs: 04/27/24 20:24 04/27/24 21:24 04/27/24 22:00 Temperature 96.2 F L Temperature Source Temporal Pulse Rate 60 59 L 60 Respiratory Rate 15 16 13 Blood Pressure 178/71 H 154/70 H Blood Pressure Mean 106 98 Pulse Ox 97 97 94 Oxygen Delivery Method Room Air Room Air Room Air Positive well nourished and well developed General Appearance ED: well developed; Negative for pallor HEENT Reports dry mucous membranes HEENT Narrative: No tongue or cheek biting no oral lesions no tongue or lip swelling no airway edema or compromise Mucous membranes are dry and tacky Mouth ED: Yes dry mucous membranes Mouth: dry mucous membranes Eyes PERRL and EOMs intact bilaterally General Eye ED: Negative for scleral icterus Neck supple Neck Narrative: No nuchal rigidity or meningeal signs noted Chest Wall palpation of chest normal Resp normal respiratory effort and clear to auscultation bilaterally Resp Narrative: Breath sounds are diminished throughout but overall clear to auscultation without signs of respiratory distress Cardio regular rate and regular rhythm GI normal to inspection, nondistended, normoactive bowel sounds, non-tender, non-distended and no masses Auscultation: normoactive bowel sounds Palpation: soft Extremity normal to inspection Extremity Narrative: No bony deformity or joint effusion noted No asymmetric edema no pitting edema Neuro Neuro Narrative: Patient is obtunded with GCS of 13 He will awake and open to eyes to loud voice or pain. He is slow to respond but will follow commands. There is no obvious focal neurologic deficit Sensorium / Orientation: lethargic Skin no rashes or lesions noted Skin Narrative: Skin turgor is increased General Skin Exam: Negative for jaundice or pallor MDM MDM MDM Narrative Medical decision making narrative: Patient arrived the ER slightly hypertensive but has a past medical history of this. He is protecting his airway and therefore there is no need for intubation. Based on the syncopal event and depressed mental status there is concern for acute bleeding such as subdural or subarachnoid hemorrhage. There is concern for recurrent hyponatremia or potential infectious process such as COVID or urinary tract infection. Secondary to his basic blood work was obtained which revealed sodium to be low at 125 but this is only down from 3 points from earlier in the day and according to family he did not have any acute findings during that time. Despite negative workup in the ER for acute infectious process or acute kidney injury or recurrent stroke or potential brain bleed the patient's remained with depressed mental status/lethargic. Therefore I contacted the hospitalist who evaluated the patient in the ER. At this time they do feel he would benefit from readmission to the hospital but they agree that there is no need to provide hypertonic saline as his value was only 125 and down 3 points from the last check. Plan of care was discussed with family and they are agreeable to it and patient be admitted to the hospital for further care History & Record Review Discussion w/independent historian: Family Lab Data Attestation: I reviewed the patient's lab results. Labs: Laboratory Results - last 24 hr 08/03/24 08/03/24 21:08 21:51 WBC 8.8 RBC 4.01 L Hgb 12.2 L Hct 34.9 L MCV 87.0 MCH 30.4 MCHC 35.0 RDW Std Deviation 45.5 H RDW Coeff of Chaim 14.0 Plt Count 232 MPV 10.5 Immature Gran % (Auto) 0.300 Neut % (Auto) 68.1 Lymph % (Auto) 17.7 L [place] % (Auto) 10.5 H Eos % (Auto) 3.1 Baso % (Auto) 0.3 Absolute Neuts (auto) 6.0 Absolute Lymphs (auto) 1.56 Nucleated RBC % 0 Sodium 125 L Potassium 3.9 Chloride 90 L Carbon Dioxide 27.0 Anion Gap 8 BUN 21 H Creatinine 1.10 Estim Creat Clear Calc 45.77 Est GFR (MDRD) Af Amer 81 Est GFR (MDRD) Non-Af 67 BUN/Creatinine Ratio 19.1 Glucose 154 H Lactic Acid 1.2 Calcium 8.7 Total Bilirubin 0.60 Direct Bilirubin 0.21 AST 16 ALT 24 Alkaline Phosphatase 69 Ammonia 18.0 Total Protein 6.8 Albumin 3.1 L Globulin 3.7 Procalcitonin < 0.04 TSH 3.81 H Urine Color Yellow Urine Clarity Clear Urine pH 7.0 Ur Specific [place] 1.010 Urine Protein 30 H Urine Glucose (UA) Normal Urine Ketones Negative Urine Occult Blood Negative Urine Nitrite Negative Urine Bilirubin Negative Urine Urobilinogen Normal Ur Leukocyte Esterase Negative Urine RBC 0 SEEN Urine WBC 0 SEEN Ur Squamous Epith Cells 0 SEEN Urine Bacteria 0 SEEN Urine Mucus 0 SEEN ABG Data ABG results: ABG 04/27/24 21:23 Specimen Type WINNIE Sample Site Not entered VBG pH 7.40 VBG pO2 43 H VBG HCO3 28 H VBG Total CO2 30 VBG O2 Sat (Calc) 78 H VBG Base Excess 3 POC Mix VBG pCO2 Pt Tmp 45.7 O2 Delivery Device Room Air Radiography Diagnostic Testing: Clinical Impression(s) from Imaging Studies Brain CT 04/27/24 20:56 IMPRESSION: No acute intracranial abnormality. 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 Electronically Signed: Mariam Caal MD at 22:13 EDT , Chest X-Ray 04/27/24 21:23 IMPRESSION: No acute findings in the chest. Electronically Signed: Mariam Caal MD at 21:46 EDT , Chest x-ray as interpreted by the emergency medicine physician reveals no acute infiltrate pneumothorax or pleural effusion Discharge Plan Dx/Rx/DC Orders Clinical Impression: Altered mental status, Hyponatremia, Syncope, Essential (primary) hypertension, Hyperlipidemia Disposition Disposition: Acute Care Hospital [facility]
--- NOTE | 2024-04-27 23:26 | PCM.HP.STD ---
HPI - General General Date of Service: 04/27/24 Chief Complaint: syncope HPI Narrative SERGO RALPH, is a 89 M who presents with syncope. This is an 89-year-old male with history of large right-sided MCA stroke presents with what was described as syncope. Basically patient was unresponsive while in the TCU where he was unresponsive. Patient had a similar episode last week where he was unresponsive and difficult to arouse. Patient was noted to be hyponatremic at the time without sodium 120 and was 128 when he was discharged. CAT scan imaging showed prior sequelae of his right MCA stroke that he sustained in 2022. This again happened today. No known tonic-clonic activity was noted. Patient was. Unresponsive. I was unable to get any history from the patient's as he was nonverbal however he was able to tell me his abdomen hurt when I palpated it. [facility] Medical History BPH (benign prostatic hyperplasia) Hyperlipidemia Internal hemorrhoids Diverticulosis Celiac disease Carotid stenosis, bilateral Non-smoker AAA (abdominal aortic aneurysm) Hypertension Stroke/cerebrovascular accident Home Medications ?Medication ?Instructions ?Recorded ?Last Taken ?Type cholecalciferol (vitamin D3) 125 5,000 unit PO DAILY SUPPLEMENT 04/06/23 04/21/24 History mcg (5,000 unit) tablet (Vitamin D3) amlodipine 5 mg tablet 5 mg PO DAILY blood pressure #45 04/19/23 04/21/24 Rx tabs atorvastatin 40 mg tablet 40 mg PO QHS CHOLESTEROL #30 tabs 04/19/23 04/20/24 Rx magnesium chloride 64 mg 128 mg (2 x 64 mg) PO DAILY 04/19/23 04/21/24 Rx (magnesium chloride) SUPPLEMENT #30 tabs tablet,delayed release (Mag 64) metoprolol tartrate 50 mg tablet 50 mg PO BID HTN #60 tabs 04/19/23 04/21/24 Rx tamsulosin 0.4 mg capsule 0.4 mg PO DAILY TREAT ENLARGED 04/19/23 04/21/24 Rx PROSTRATE #30 caps ALGUECAL 2 cap PO DAILY SUPPLEMENT 04/21/24 Unknown History clopidogrel 75 mg tablet (Plavix) 75 mg PO DAILY HEART 04/21/24 04/21/24 History hydrocortisone 2.5 % topical 1 applic topical DAILY PRN itching 04/21/24 Unknown History ointment lorazepam 0.5 mg tablet 0.5 mg PO TID PRN anxiety 04/21/24 Unknown History omega 3 350 mg-dha 235 mg-epa 90 1 cap PO DAILY SUPPLEMENT 04/21/24 Unknown History mg-fish oil 597 mg capsule,delay rel ([place]-3) calamine phenolated lotion 1 applic topical BID 04/27/24 Unknown History enoxaparin 40 mg/0.4 mL 40 mg subcut DAILY 04/27/24 Unknown History subcutaneous syringe nystatin 100,000 unit/gram topical 1 applic topical BID 04/27/24 Unknown History powder Allergy/AdvReac Type Severity Reaction Status Date / Time Food Allergies: Uncoded AdvReac Intermediate Other Verified 04/21/24 11:49 Family History Father CVA (cerebral vascular accident) Sister Lupus (systemic lupus erythematosus) Brother Diabetes Brother Diabetes Surgical History History of excision of lesion History of excision of lesion H/O abdominal aortic aneurysm repair Social History household members: spouse housing: other details: Private one-story home with no steps. 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 pets and animals: Yes Smoking Status: Never smoker alcohol intake: never substance use type: does not use ROS ROS Narrative Only thing I am able to gather from the patient is that he has abdominal pain. Otherwise no additional information unable to get from him. Vital Signs Vital Signs Vital Signs: 04/27/24 20:24 04/27/24 21:24 04/27/24 22:00 Temperature 35.7 C L Temperature Source Temporal Pulse Rate 60 59 L 60 Respiratory Rate 15 16 13 Blood Pressure 178/71 H 154/70 H Blood Pressure Mean 106 98 Pulse Ox 97 97 94 Oxygen Delivery Method Room Air Room Air Room Air Weight Weight: 70.4 kg Body Mass Index (BMI) 23.6 Physical Exam Const Constitutional Narrative: Patient is nonverbal during the first part of the encounter. When I try to evaluate his eyes he actively fights me opening his eyes and keeps his eyes looking upwards. He does open his mouth when I ask him to and he does squeeze his hands though weakly bilaterally. HEENT normocephalic and head/scalp atraumatic Eyes Eyes Narrative: No icterus. Unable to evaluate pupils nor external ocular muscles as patient does not cooperate with exam. Neck no lymphadenopathy Neck Narrative: No thyromegaly Resp normal respiratory effort, no retractions, no use of accessory muscles and clear to auscultation bilaterally Cardio regular rate, regular rhythm, S1 normal heart sound and S2 normal heart sound GI normal to inspection, nondistended, normoactive bowel sounds GI Narrative: Slightly tender to palpation. Normal bowel sounds. Extremity normal to inspection Neuro Neuro Narrative: Limited due to lack of cooperation but appears to move all extremities spontaneously though weakly. Results Lab / Micro Data Attestation: I reviewed the patient's lab results. 04/27/24 21:08 04/27/24 21:08 Labs: Laboratory Results - last 24 hr 04/27/24 21:08: WBC 8.8, RBC 4.01 L, Hgb 12.2 L, Hct 34.9 L, MCV 87.0, MCH 30.4, MCHC 35.0, RDW Std Deviation 45.5 H, RDW Coeff of [place]aim 14.0, Plt Count 232, MPV 10.5, Immature Gran % (Auto) 0.300, Neut % (Auto) 68.1, Lymph % (Auto) 17.7 L, [place] % (Auto) 10.5 H, Eos % (Auto) 3.1, Baso % (Auto) 0.3, Absolute Neuts (auto) 6.0, Absolute Lymphs (auto) 1.56, Nucleated RBC % 0, Sodium 125 L, Potassium 3.9, Chloride 90 L, Carbon Dioxide 27.0, Anion Gap 8, BUN 21 H, Creatinine 1.10, Estim Creat Clear Calc 45.77, Est GFR (MDRD) Af Amer 81, Est GFR (MDRD) Non-Af 67, BUN/Creatinine Ratio 19.1, Glucose 154 H, Lactic Acid 1.2, Calcium 8.7, Total Bilirubin 0.60, Direct Bilirubin 0.21, AST 16, ALT 24, Alkaline Phosphatase 69, Ammonia 18.0, Total Protein 6.8, Albumin 3.1 L, Globulin 3.7, Procalcitonin < 0.04, TSH 3.81 H 04/27/24 21:51: Urine Color Yellow, Urine Clarity Clear, Urine pH 7.0, Ur Specific [place] 1.010, Urine Protein 30 H, Urine Glucose (UA) Normal, Urine Ketones Negative, Urine Occult Blood Negative, Urine Nitrite Negative, Urine Bilirubin Negative, Urine Urobilinogen Normal, Ur Leukocyte Esterase Negative, Urine RBC 0 SEEN, Urine WBC 0 SEEN, Ur Squamous Epith Cells 0 SEEN, Urine Bacteria 0 SEEN, Urine Mucus 0 SEEN Micro: Microbiology 04/27/24 21:08 Mucosa - Nose SARS-CoV-2, Influenza & RSV (PCR) - Final ABG Data ABG results: ABG 04/27/24 21:23 Specimen Type WINNIE Sample Site Not entered VBG pH 7.40 VBG pO2 43 H VBG HCO3 28 H VBG Total CO2 30 VBG O2 Sat (Calc) 78 H VBG Base Excess 3 POC Mix VBG pCO2 Pt Tmp 45.7 O2 Delivery Device Room Air Imaging Radiology Impression Brain CT 04/27/24 20:56 IMPRESSION: No acute intracranial abnormality. 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 Electronically Signed: Mariam Caal MD at 22:13 EDT , Chest X-Ray 04/27/24 21:23 IMPRESSION: No acute findings in the chest. Electronically Signed: Mariam Caal MD at 21:46 EDT , Assessment & Plan Assessment/Plan (1) Syncope: PLAN: Unclear if this is actual syncopal episode or not but basically he was unresponsive. Did not see him when this initially happened but he does have responsiveness now. Though it almost seems that this is almost intentional. Unclear if this is a behavioral manifestation of some potential underlying psychiatric disorder or if he is actually having something organic. I did review images with the family at bedside and showed them the massive stroke that he had sustained last year with the MRI imaging as well as CAT scan imaging from today. Plan: Check an MRI of the brain. Check EEG. (2) Hyponatremia: PLAN: This appears chronic. All this sodiums in [facility], dating back to 2016 have all been low. It is lower here today and it was just a few days ago. Though I am not sure its aerobic component in regards to his unresponsive episode. 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 Plan: Check urine sodium, urine osmolality, serum osmolality, free T4 and random cortisol. Will give him a liter of fluids and recheck his sodium in the morning. Fluid restrict to 1.5 liters/day. (3) Cognitive impairment: PLAN: Family endorses that he has been very anxious as of late. Whereas before his stroke, he did not have issues regards to panic attack. His was recently in the hospital and was having shaking her legs and he was concerned that she was dying. She was not dying and was never in the intensive care unit but is immediate thoughts were that she was actively dying. They have noticed that he is reading things like labels objects and spelling them out. I told him concerned that he may have some mild cognitive impairment or even dementia related with his massive stroke that he has had and that he may not be able to process things as effectively as he once did and he may have some awareness that he does not have the capacity anymore. I recommended that he have a geriatric evaluation to formally diagnose to see if he does have dementia or mild cognitive impairment. I also strongly recommend that he not drive until he have a formal driving assessment because I am concerned about his higher level functioning being impaired that he could pose a risk for traffic accidents. PLAN: Plan Chronic conditions History of right-sided MCA stroke: Continue with atorvastatin and clopidogrel BPH: Continue tamsulosin Anxiety: Lorazepam as needed. Told the family that we will try to have behavioral reorientation as much as possible. Hypertension: Continue with amlodipine. VTE prophylaxis with enoxaparin CODE STATUS: Patient is DNR Comfort Care arrest intubation. Charges/Coding Visit Charges Inpatient E&M: 42916 Init Hosp L3
[2024-04-28] VITALS (9 sets, daily range): BP systolic 137–164; BP diastolic 68–72; PULSE 62–71; RESP 16–18; TEMP 36.2–36.7; O2SAT 94–97; BMI 20.9
[2024-04-28 00:47] LABS: T4 Free Direct 1.15 ng/dL (0.76-1.46)
[2024-04-28] MEDS: 0.9% Normal Saline (1000mL) 1,000 ML 150 ML IV (01:03)
--- NOTE | 2024-04-28 01:20 | RAD_ITS ---
EXAM: XR ABDOMEN, 1 VIEW CLINICAL INDICATION: abdominal pain TECHNIQUE: Frontal supine view of the abdomen/pelvis. COMPARISON: abdomen and pelvis CTA March 07, 2016 the patient had large 5.3 cm x 5.3 cm distal infrarenal aortic aneurysm without stent at that time. FINDINGS: LOWER THORAX: Mild degenerative spine changes. Lung bases appear unremarkable. Upper limits of normal heart size. GASTROINTESTINAL TRACT: Moderate gas in the colon and rectum, moderate gas in the stomach. No dilated small bowel loops. Multiple calcific densities in the expected region of the pancreas on prior CT in 2016. ORGANS: See above. BONES/JOINTS: No acute pathology. SOFT TISSUES: No acute pathology. VASCULATURE: Aneurysm sac projecting to the left. TUBES, LINES AND DEVICES: There are double lumen aortoiliac mesh metallic stents projecting from L2 through the expected region of the mid-distal common iliac arteries. Faintly calcified. RAD/Abdomen Single View (Portable) IMPRESSION: 1. Moderate colon and rectal gas. 2. Borderline cardiomegaly. 3. Calcifications typical of chronic calcific pancreatitis. 4. Aortoiliac double lumen metallic stent grafts apparently bridging known distal infrarenal aortic aneurysm. Electronically Signed: Mariam Caal MD at 2:53 EDT ,
[2024-04-28 01:29] LABS: Urine Sodium 96 mmol/L (Not Establ.)
[2024-04-28 02:23] LABS: Osmolality, Urine 404 mOsm/KG
[2024-04-28 05:35] LABS: Absolute Lymphocyte Count 1.17 X10^3/uL (0.83-4.51); Absolute Neutrophil Count 5.5 X10^3/uL (2.0-7.7); Basophil# 0.02 X10^3/uL; Basophil% 0.3 % (0-1); Eosinophil# 0.13 X10^3/uL; Eosinophils% 1.7 % (0-5); Hematocrit 33.6 % (40-54); Hemoglobin 11.5 g/dL (13.0-16.5); Lymphocyte # 1.17 X10^3/ul (0.83-4.51); Lymphocyte % 15.6 % (19-41); Mean Corp Hgb Conc 34.2 g/dL (32-36); Mean Corpuscular Hgb 30.3 pg (27.0-32.0); Mean Corpuscular Volume 88.4 fL (80-94); Mean Platelet Vol. 10.6 fl (6.2-12.0); Monocyte# 0.69 X10^3/uL; Monocyte% 9.2 % (0-10); NRBC Flagged by Analyzer 0 % (0-5); Neutrophil # 5.46 X10^3/uL (2.7-7.7); Neutrophil % 72.8 % (47-70); Platelet Count 218 K/mm3 (150-450); RBC Distribution Width SD 45.5 fl (35.1-43.9); White Blood Count 7.5 K/mm3 (4.4-11.0)
[2024-04-28 06:04] LABS: Anion Gap 8 (5-15); BUN 19 mg/dL (7-18); Calcium,Total 8.6 mg/dL (8.5-10.1); Chloride 90 mmol/L (98-107); EST Glomerular Filtration Rate 75 mL/min (>60); Est Glom Filt Rate - Afr Amer 91 mL/min (>60); Estimated Creatinine Clearance 47.26 ml/min; Glucose 121 mg/dL (74-106); Potassium 3.9 mmol/L (3.5-5.1); Sodium Level 125 mmol/L (136-145)
[2024-04-28 06:21] LABS: Osmolality, Serum 258 mOsm/KG (280-301)
--- NOTE | 2024-04-28 07:55 | PCM.PN.HOSP ---
Reason for Visit Reason for Visit: Diagnoses Hypo-osmolality and hyponatremia (04/27/24) Other symptoms and signs involving cognitive functions and awareness (04/27/24) Syncope and collapse (04/27/24) Subjective Subjective Patient is an 89-year-old gentleman presented with altered mental status with prolonged period of unresponsiveness following the initial event. There was no seizure activity noted by family. Was found to have low sodium levels admitted to a monitored floor for further management Objective Data Objective Data Vital Signs: Vital Signs Temp Pulse Resp BP Pulse Ox O2 Del Method 97.4 F L 69 16 160/71 H 95 Room Air 04/28/24 03:00 04/28/24 03:00 04/28/24 03:00 04/28/24 03:00 04/28/24 03:00 04/28/24 03:00 Oxygen Delivery Method Room Air Weight: 64.2 kg Body Mass Index (BMI) 20.9 Lab / Micro Data 04/28/24 04:45 04/28/24 04:45 Labs: Laboratory Results - last 24 hr 04/27/24 21:08: WBC 8.8, RBC 4.01 L, Hgb 12.2 L, Hct 34.9 L, MCV 87.0, MCH 30.4, MCHC 35.0, RDW Std Deviation 45.5 H, RDW Coeff of [place]aim 14.0, Plt Count 232, MPV 10.5, Immature Gran % (Auto) 0.300, Neut % (Auto) 68.1, Lymph % (Auto) 17.7 L, [place] % (Auto) 10.5 H, Eos % (Auto) 3.1, Baso % (Auto) 0.3, Absolute Neuts (auto) 6.0, Absolute Lymphs (auto) 1.56, Nucleated RBC % 0, Sodium 125 L, Potassium 3.9, Chloride 90 L, Carbon Dioxide 27.0, Anion Gap 8, BUN 21 H, Creatinine 1.10, Estim Creat Clear Calc 45.77, Est GFR (MDRD) Af Amer 81, Est GFR (MDRD) Non-Af 67, BUN/Creatinine Ratio 19.1, Glucose 154 H, Lactic Acid 1.2, Calcium 8.7, Total Bilirubin 0.60, Direct Bilirubin 0.21, AST 16, ALT 24, Alkaline Phosphatase 69, Ammonia 18.0, Total Protein 6.8, Albumin 3.1 L, Globulin 3.7, Procalcitonin < 0.04, TSH 3.81 H, Free T4 1.15 04/27/24 21:51: Urine Color Yellow, Urine Clarity Clear, Urine pH 7.0, Ur Specific [place] 1.010, Urine Protein 30 H, Urine Glucose (UA) Normal, Urine Ketones Negative, Urine Occult Blood Negative, Urine Nitrite Negative, Urine Bilirubin Negative, Urine Urobilinogen Normal, Ur Leukocyte Esterase Negative, Urine RBC 0 SEEN, Urine WBC 0 SEEN, Ur Squamous Epith Cells 0 SEEN, Urine Bacteria 0 SEEN, Urine Mucus 0 SEEN, Urine Osmolality 404, Ur Random Sodium 96 04/28/24 04:45: WBC 7.5, RBC 3.80 L, Hgb 11.5 L, Hct 33.6 L, MCV 88.4, MCH 30.3, MCHC 34.2, RDW Std Deviation 45.5 H, RDW Coeff of [place] 14.0, Plt Count 218, MPV 10.6, Immature Gran % (Auto) 0.400, Neut % (Auto) 72.8 H, Lymph % (Auto) 15.6 L, [place] % (Auto) 9.2, Eos % (Auto) 1.7, Baso % (Auto) 0.3, Absolute Neuts (auto) 5.5, Absolute Lymphs (auto) 1.17, Nucleated RBC % 0, Sodium 125 L, Potassium 3.9, Chloride 90 L, Carbon Dioxide 27.0, Anion Gap 8, BUN 19 H, Creatinine 1.00, Estim Creat Clear Calc 47.26, Est GFR (MDRD) Af Amer 91, Est GFR (MDRD) Non-Af 75, BUN/Creatinine Ratio 19.0, Glucose 121 H, Serum Osmolality 258 L, Calcium 8.6 Micro: Microbiology 04/27/24 21:08 Mucosa - Nose SARS-CoV-2, Influenza & RSV (PCR) - Final ABG Data ABG results: ABG 04/27/24 21:23 Specimen Type WINNIE Sample Site Not entered VBG pH 7.40 VBG pO2 43 H VBG HCO3 28 H VBG Total CO2 30 VBG O2 Sat (Calc) 78 H VBG Base Excess 3 POC Mix VBG pCO2 Pt Tmp 45.7 O2 Delivery Device Room Air Radiography Diagnostic Testing: Radiology Impression Brain CT 04/27/24 20:56 IMPRESSION: No acute intracranial abnormality. Chronic changes including multifocal chronic infarcts in the right MCA and [facility] distributions. Electronically Signed: Mariam Caal MD at 22:13 EDT , Chest X-Ray 04/27/24 21:23 IMPRESSION: No acute findings in the chest. Electronically Signed: Mariam Caal MD at 21:46 EDT , KUB X-Ray 04/28/24 01:20 IMPRESSION: 1. Moderate colon and rectal gas. 2. Borderline cardiomegaly. 3. Calcifications typical of chronic calcific pancreatitis. 4. Aortoiliac double lumen metallic stent grafts apparently bridging known distal infrarenal aortic aneurysm. Electronically Signed: Mariam Caal MD at 2:53 EDT , Physical Exam Narrative GENERAL: Patient is slow to respond HEENT: Atraumatic; normocephalic EYES; Anicteric, Normal Conjunctiva NECK; supple, normal thyroid, RESPIRATORY: Diminished to auscultation CARDIOVASCULAR: Regular S1 S2, GI: soft, normoactive bowel sounds, : No Renal angle tenderness; EXTREMITIES: No edema, no clubbing, MUSCULOSKELETAL: no muscle wasting NEURO: Awake; no lateralizing signs. SKIN: No Rash PSYCH; Flat affect Assessment & Plan Assessment/Plan (1) Syncope: (2) Hyponatremia: PLAN: Plan Patient is an 89-year-old gentleman presented with altered mental status with prolonged period of unresponsiveness following the initial event. There was no seizure activity noted by family. Was found to have low sodium levels admitted to a monitored floor for further management 1. Acute encephalopathy ? Metabolic encephalopathy versus postictal state from nonepileptic seizure.Per Family patient has had multiple episodes and each episode is followed by prolonged period of unresponsiveness. Admitted to monitored bed ordered EEG, MRI and consult placed to teleneuro 2. Hyponatremia ?Patient evaluation including urine osmole and sodium levels consistent with SIADH patient will be placed on fluid restriction with daily monitoring with BMP ordered for further eval 3. 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 Patient is on antiplatelet therapy with clopidogrel as well as statin therapy with atorvastatin did continue. Also requested for PT OT eval 4. BPH with lower urinary obstructive symptoms - Patient treated with tamsulosin 5. History of abdominal aortic aneurysm ? Stable 6. Celiac disease ? Per history 7. Vitamin D deficiency ? Patient is on vitamin D3 supplementation plan is to continue following home medication reconciliation 8. Anemia - Secondary to chronic disorder monitoring H&H and transfuse if patient becomes symptomatic or hemoglobin falls below 7 9. Hypertension - Blood pressure controlled, home medications continued with dose adjustment as needed 10. Anxiety disorder ? Patient is on lorazepam as needed 11. DVT prophylaxis - On enoxaparin Time spent in the patient's overall evaluation,decision-making process, review of diagnostic data, adjustment of management, discussion with other providers, nursing nursing and ancillary staff involved in patient's care documentation, 52 minutes minutes Charges/Coding Visit Charges Inpatient E&M: [id number] [facility] Hosp L3
[2024-04-28] MEDS: Magnesium Chloride 64 MG Delay Rel.Tablet 128 MG PO (09:12)
[2024-04-28] MEDS: Clopidogrel Bisulfate 75 MG Tablet PO (09:12)
[2024-04-28] MEDS: amLODIPine 5 MG Tablet PO (09:12)
[2024-04-28] MEDS: Nystatin Powder 15gm Bottle 1 APPLIC TOPICAL ×2 (09:12→21:16)
[2024-04-28] MEDS: Metoprolol Tartrate 50 MG Tablet PO ×2 (09:12→21:10)
[2024-04-28] MEDS: Tamsulosin HCl 0.4 MG Capsule PO (09:12)
[2024-04-28] MEDS: Enoxaparin 40 MG/0.4 ML Syringe SC (09:12)
[2024-04-28] MEDS: Cholecalciferol (Vit D3) 125 MCG CAPSULE (5,000 UNITS) PO (09:18)
--- NOTE | 2024-04-28 11:39 | NEURO.CONS ---
Assessment and Plan: Neuro Assessment/Plan SERGO ROSAS is a 89 M with a past medical history of prior stroke, HTN, HLD, being evaluated by Teleneurology for recurrent stereotypes episodes of unresponsivenss and vomitting in setting of hyponatremia. unclear etiology of hyponatremia however labs concenring for SIADH. Exam unremarkable. The episodes could be consistent with a presyncopal vagal response but cannot rule out seizures. Plan: - MRI Brain wo contrast and routine EEG to further workup for potentially new seizures. - continue to correct Na at < 12mEQ per 24 hrs. I personally attended this patient and spent a total time of 45 minutes evaluating this patient including clinical assessment, review of chart, medical history imaging, and determining appropriate treatment and workup. HPI Consult Data Date of Consult: 04/28/24 HPI Narrative HPI Narrative: Patient is an 89-year-old gentleman presented with altered mental status with prolonged period of unresponsiveness following the initial event. There was no seizure activity noted by family. Was found to have low sodium levels admitted to a monitored floor for further management Pt was very tired all day yesterday and was keeping eyes closed. Pt was in the wheelchair at the time. Leaned his head back and looked up and then suddenly vomitted. Similar thing happened after visiting his last week in the hospital and he needed fluids. From Monday to now with some of delirium. Pt was incontinent of urine. Pt has had hyponatremia once or twice before without these events and has had low Na as outpatient per labs at [facility]. He never had hypoNa prior to his stroke in 2021 - he had hyponatremia in rehab after that as well. He states he eats and drinks well normally. No prior ho seizures. [facility] Medical History BPH (benign prostatic hyperplasia) Hyperlipidemia Internal hemorrhoids Diverticulosis Celiac disease Carotid stenosis, bilateral Non-smoker AAA (abdominal aortic aneurysm) Hypertension Stroke/cerebrovascular accident Home Medications ?Medication ?Instructions ?Recorded ?Last Taken ?Type cholecalciferol (vitamin D3) 125 5,000 unit PO DAILY SUPPLEMENT 04/06/23 04/21/24 History mcg (5,000 unit) tablet (Vitamin D3) amlodipine 5 mg tablet 5 mg PO DAILY blood pressure #45 04/19/23 04/21/24 Rx tabs atorvastatin 40 mg tablet 40 mg PO QHS CHOLESTEROL #30 tabs 04/19/23 04/20/24 Rx magnesium chloride 64 mg 128 mg (2 x 64 mg) PO DAILY 04/19/23 04/21/24 Rx (magnesium chloride) SUPPLEMENT #30 tabs tablet,delayed release (Mag 64) metoprolol tartrate 50 mg tablet 50 mg PO BID HTN #60 tabs 04/19/23 04/21/24 Rx tamsulosin 0.4 mg capsule 0.4 mg PO DAILY TREAT ENLARGED 04/19/23 04/21/24 Rx PROSTRATE #30 caps ALGUECAL 2 cap PO DAILY SUPPLEMENT 04/21/24 Unknown History clopidogrel 75 mg tablet (Plavix) 75 mg PO DAILY HEART 04/21/24 04/21/24 History hydrocortisone 2.5 % topical 1 applic topical DAILY PRN itching 04/21/24 Unknown History ointment lorazepam 0.5 mg tablet 0.5 mg PO TID PRN anxiety 04/21/24 Unknown History omega 3 350 mg-dha 235 mg-epa 90 1 cap PO DAILY SUPPLEMENT 04/21/24 Unknown History mg-fish oil 597 mg capsule,delay rel ([place]-3) calamine phenolated lotion 1 applic topical BID 04/27/24 Unknown History enoxaparin 40 mg/0.4 mL 40 mg subcut DAILY 04/27/24 Unknown History subcutaneous syringe nystatin 100,000 unit/gram topical 1 applic topical BID 04/27/24 Unknown History powder Allergy/AdvReac Type Severity Reaction Status Date / Time Food Allergies: Uncoded AdvReac Intermediate Other Verified 04/21/24 11:49 Family History Father CVA (cerebral vascular accident) Sister Lupus (systemic lupus erythematosus) Brother Diabetes Brother Diabetes Surgical History History of excision of lesion History of excision of lesion H/O abdominal aortic aneurysm repair Social History household members: spouse housing: other details: Private one-story home with no steps. 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 pets and animals: Yes Smoking Status: Never smoker alcohol intake: never substance use type: does not use Vital Signs Vital Signs Vital Signs: 04/27/24 20:24 04/27/24 21:24 04/27/24 22:00 Temperature 96.2 F L Temperature Source Temporal Pulse Rate 60 59 L 60 Respiratory Rate 15 16 13 Respiratory Effort Respiratory Depth Respiratory Pattern Blood Pressure 178/71 H 154/70 H Blood Pressure Mean 106 98 Blood Pressure Source Blood Pressure Position Blood Pressure Location Pulse Ox 97 97 94 Oxygen Delivery Method Room Air Room Air Room Air 04/27/24 23:00 04/27/24 23:30 04/28/24 00:00 Temperature Temperature Source Pulse Rate 63 62 Respiratory Rate 16 16 Respiratory Effort Normal Respiratory Depth Respiratory Pattern Normal Blood Pressure 148/70 H 149/69 H Blood Pressure Mean 96 95 Blood Pressure Source Blood Pressure Position Blood Pressure Location Pulse Ox 95 95 Oxygen Delivery Method Room Air Room Air 04/28/24 00:18 04/28/24 00:55 04/28/24 01:10 Temperature 97.7 F L 97.1 F L Temperature Source Temporal Pulse Rate 62 63 Respiratory Rate 16 16 Respiratory Effort Normal Non-Labored Respiratory Depth Normal Respiratory Pattern Normal Blood Pressure 149/69 H 164/68 H Blood Pressure Mean 95 100 Blood Pressure Source Monitor Blood Pressure Position Semi-Fowlers Blood Pressure Location Left Arm Pulse Ox 95 96 Oxygen Delivery Method Room Air Room Air 04/28/24 03:00 04/28/24 08:07 04/28/24 09:04 Temperature 97.4 F L 97.6 F L Temperature Source Temporal Oral Pulse Rate 69 70 Respiratory Rate 16 18 Respiratory Effort Normal Non-Labored Respiratory Depth Normal Respiratory Pattern Normal Blood Pressure 160/71 H 161/71 H Blood Pressure Mean 100 101 Blood Pressure Source Monitor Blood Pressure Position Semi-Fowlers Blood Pressure Location Pulse Ox 95 97 Oxygen Delivery Method Room Air Room Air Room Air 04/28/24 09:12 Temperature Temperature Source Pulse Rate 70 Respiratory Rate Respiratory Effort Respiratory Depth Respiratory Pattern Blood Pressure Blood Pressure Mean Blood Pressure Source Blood Pressure Position Blood Pressure Location Pulse Ox Oxygen Delivery Method Weight Weight: 64.2 kg Body Mass Index (BMI) 20.9 EEG Results Procedure Details EEG Procedure Details: SERGO ROSAS is a 89 year old M with a past medical history of , who presents for evaluation of Electroencephalogram on DATE at TIME Physical Exam Narrative -? General: Laying comfortably in bed; in no acute distress. -? HENT: Normal oropharynx and mucosa. Normal external appearance of ears and nose. Exophthalmos. -? Neck: Supple, no pain or tenderness -? CV:? No peripheral edema. -? Pulmonary:? Normal respiratory effort. -? Ext: No cyanosis, edema, or deformity -? Skin: No rash. Normal palpation of skin.? -? Musculoskeletal: full range of motion; no joint tenderness. Normal digits and nails by inspection. No clubbing. -? NEURO: -? Mental Status: The patient was alert and oriented to time, place, and person. Normal recent/remote memory, concentration, and general fund of knowledge. -? Language: speech is clear? Naming, repetition, fluency, and comprehension intact. -? Cranial Nerves:. EOMI, visual izaguirre full, no facial asymmetry, facial sensation intact, hearing intact, tongue midline, no evidence of atrophy or fibrillations. -? Motor: normal bulk, tone, and strength throughout. No pronator drift or satelliting. Upper and lower extremities equal bilaterally. -? Sensation- Intact to light touch bilaterally -? Coordination: No dysmetria on [id number], finger follow finger or [id number]. -? Gait - deferred Lab / Micro Data 04/28/24 04:45 04/28/24 16:51 Labs: Laboratory Results - last 24 hr 04/27/24 21:08: WBC 8.8, RBC 4.01 L, Hgb 12.2 L, Hct 34.9 L, MCV 87.0, MCH 30.4, MCHC 35.0, RDW Std Deviation 45.5 H, RDW Coeff of Chaim 14.0, Plt Count 232, MPV 10.5, Immature Gran % (Auto) 0.300, Neut % (Auto) 68.1, Lymph % (Auto) 17.7 L, Catron % (Auto) 10.5 H, Eos % (Auto) 3.1, Baso % (Auto) 0.3, Absolute Neuts (auto) 6.0, Absolute Lymphs (auto) 1.56, Nucleated RBC % 0, Sodium 125 L, Potassium 3.9, Chloride 90 L, Carbon Dioxide 27.0, Anion Gap 8, BUN 21 H, Creatinine 1.10, Estim Creat Clear Calc 45.77, Est GFR (MDRD) Af Amer 81, Est GFR (MDRD) Non-Af 67, BUN/Creatinine Ratio 19.1, Glucose 154 H, Lactic Acid 1.2, Calcium 8.7, Total Bilirubin 0.60, Direct Bilirubin 0.21, AST 16, ALT 24, Alkaline Phosphatase 69, Ammonia 18.0, Total Protein 6.8, Albumin 3.1 L, Globulin 3.7, Procalcitonin < 0.04, TSH 3.81 H, Free T4 1.15 04/27/24 21:51: Urine Color Yellow, Urine Clarity Clear, Urine pH 7.0, Ur Specific [place] 1.010, Urine Protein 30 H, Urine Glucose (UA) Normal, Urine Ketones Negative, Urine Occult Blood Negative, Urine Nitrite Negative, Urine Bilirubin Negative, Urine Urobilinogen Normal, Ur Leukocyte Esterase Negative, Urine RBC 0 SEEN, Urine WBC 0 SEEN, Ur Squamous Epith Cells 0 SEEN, Urine Bacteria 0 SEEN, Urine Mucus 0 SEEN, Urine Osmolality 404, Ur Random Sodium 96 04/28/24 04:45: WBC 7.5, RBC 3.80 L, Hgb 11.5 L, Hct 33.6 L, MCV 88.4, MCH 30.3, MCHC 34.2, RDW Std Deviation 45.5 H, RDW Coeff of Chaim 14.0, Plt Count 218, MPV 10.6, Immature Gran % (Auto) 0.400, Neut % (Auto) 72.8 H, Lymph % (Auto) 15.6 L, Catron % (Auto) 9.2, Eos % (Auto) 1.7, Baso % (Auto) 0.3, Absolute Neuts (auto) 5.5, Absolute Lymphs (auto) 1.17, Nucleated RBC % 0, Sodium 125 L, Potassium 3.9, Chloride 90 L, Carbon Dioxide 27.0, Anion Gap 8, BUN 19 H, Creatinine 1.00, Estim Creat Clear Calc 47.26, Est GFR (MDRD) Af Amer 91, Est GFR (MDRD) Non-Af 75, BUN/Creatinine Ratio 19.0, Glucose 121 H, Serum Osmolality 258 L, Calcium 8.6, Cortisol 17.20 Micro: Microbiology 04/27/24 21:08 Mucosa - Nose SARS-CoV-2, Influenza & RSV (PCR) - Final ABG Data ABG results: ABG 04/27/24 21:23 Specimen Type WINNIE Sample Site Not entered VBG pH 7.40 VBG pO2 43 H VBG HCO3 28 H VBG Total CO2 30 VBG O2 Sat (Calc) 78 H VBG Base Excess 3 POC Mix VBG pCO2 Pt Tmp 45.7 O2 Delivery Device Room Air Imaging Radiology Impression Brain CT 04/27/24 20:56 IMPRESSION: No acute intracranial abnormality. Chronic changes including multifocal chronic infarcts in the right MCA and [employer] distributions. Electronically Signed: Mariam Caal MD at 22:13 EDT , Chest X-Ray 04/27/24 21:23 IMPRESSION: No acute findings in the chest. Electronically Signed: Mariam Caal MD at 21:46 EDT Reading Location ID and State: [id number] / [place] Tel , Service support , KUB X-Ray 04/28/24 01:20 IMPRESSION: 1. Moderate colon and rectal gas. 2. Borderline cardiomegaly. 3. Calcifications typical of chronic calcific pancreatitis. 4. Aortoiliac double lumen metallic stent grafts apparently bridging known distal infrarenal aortic aneurysm. Electronically Signed: Mariam Caal MD at 2:53 EDT Reading Location ID and State: [id number] / [place] Tel , Service support , Active Medications Active Medications Active Medications: Current Medications Generic Name Dose Route Start Last Admin Trade Name Freq PRN Reason Stop Dose Admin Acetaminophen 650 mg 04/28/24 00:40 Acetaminophen 325 Mg Tablet PO Q6H PRN PRN Pain 1-10 Or Fever >100.7 Amlodipine Besylate 5 mg 04/28/24 10:00 04/28/24 09:12 Amlodipine 5 Mg Tablet PO 5 mg DAILY [facility] Administration Protocol Amlodipine Besylate 2.5 mg 04/28/24 22:00 Amlodipine 2.5 Mg Tablet PO QHS [facility] Protocol Atorvastatin Calcium 40 mg 04/28/24 22:00 Atorvastatin Calcium 40 Mg Tablet PO QHS [facility] Cholecalciferol 125 mcg 04/28/24 10:00 04/28/24 09:18 Cholecalciferol (Vit D3) 125 Mcg Capsule (5,000 Units) PO 125 mcg DAILY [facility] Administration Clopidogrel Bisulfate 75 mg 04/28/24 10:00 04/28/24 09:12 Clopidogrel Bisulfate 75 Mg Tablet PO 75 mg DAILY [facility] Administration Enoxaparin Sodium 40 mg 04/28/24 10:00 04/28/24 09:12 Enoxaparin 40 Mg/0.4 Ml Syringe SC 40 mg DAILY [facility]IM Administration Sodium Chloride 250 mls @ 15 mls/hr 04/28/24 00:41 IV .[id number] PRN Additional IVPB Infusion Sodium Chloride 250 mls @ 15 mls/hr 04/28/24 00:41 IV .[id number] PRN Saline Flush Lorazepam 0.5 mg 04/28/24 00:40 Lorazepam 0.5 Mg Tablet PO TID PRN PRN anxiety Magnesium Chloride 128 mg 04/28/24 10:00 04/28/24 09:12 Magnesium Chloride 64 Mg Delay Rel.Tablet PO 128 mg DAILY [facility] Administration Metoprolol Tartrate 50 mg 04/28/24 10:00 04/28/24 09:12 Metoprolol Tartrate 50 Mg Tablet PO 50 mg BID [facility] Administration Protocol Non-Formulary Medication 1 applic 04/28/24 10:00 Calamine Phenolated TOPICAL BID [facility] Nystatin 1 applic 04/28/24 10:00 04/28/24 09:12 Nystatin Powder 15gm Bottle TOPICAL 1 applic BID [facility] Administration Protocol [id number] Ethyl Esters 1 gm 04/28/24 10:00 04/28/24 09:19 [place]-3 Acid Ethyl Esters 1 Gm Capsule PO Not Given DAILY [facility] Ondansetron HCl 4 mg 04/28/24 00:40 Ondansetron 4 Mg/2 Ml Vial IV Q8H PRN PRN NAUSEA/VOMITING Sodium Chloride 10 - 40 ml 04/28/24 00:41 0.9% Saline Lock 10 Ml Syringe IV UD PRN SALINE FLUSH Tamsulosin HCl 0.4 mg 04/28/24 10:00 04/28/24 09:12 Tamsulosin Hcl 0.4 Mg Capsule PO 0.4 mg DAILY [facility] Administration
[2024-04-28 13:32] LABS: Anion Gap 5 (5-15); BUN 17 mg/dL (7-18); BUN/Creat Ratio 16.5 RATIO (10-20); Calcium,Total 8.6 mg/dL (8.5-10.1); Chloride 93 mmol/L (98-107); Creatinine, Serum 1.03 mg/dL (0.70-1.30); EST Glomerular Filtration Rate 73 mL/min (>60); Est Glom Filt Rate - Afr Amer 88 mL/min (>60); Estimated Creatinine Clearance 45.88 ml/min; Glucose 118 mg/dL (74-106); Potassium 3.9 mmol/L (3.5-5.1); Sodium Level 127 mmol/L (136-145)
[2024-04-28 17:19] LABS: Anion Gap 6 (5-15); BUN 20 mg/dL (7-18); BUN/Creat Ratio 18.7 RATIO (10-20); Calcium,Total 8.7 mg/dL (8.5-10.1); Chloride 93 mmol/L (98-107); Creatinine, Serum 1.07 mg/dL (0.70-1.30); EST Glomerular Filtration Rate 69 mL/min (>60); Est Glom Filt Rate - Afr Amer 84 mL/min (>60); Estimated Creatinine Clearance 44.17 ml/min; Glucose 129 mg/dL (74-106); Sodium Level 128 mmol/L (136-145)
[2024-04-28] MEDS: Atorvastatin Calcium 40 MG Tablet PO (21:10)
[2024-04-28] MEDS: amLODIPine 2.5 MG Tablet PO (21:10)
[2024-04-29] VITALS (8 sets, daily range): BP systolic 123–153; BP diastolic 54–71; PULSE 58–80; RESP 16–18; TEMP 36.1–37; O2SAT 95–97
[2024-04-29 06:00] LABS: Hematocrit 35.1 % (40-54); Hemoglobin 12.3 g/dL (13.0-16.5); Mean Corpuscular Hgb 31.1 pg (27.0-32.0); Mean Corpuscular Volume 88.6 fL (80-94); Mean Platelet Vol. 10.6 fl (6.2-12.0); Platelet Count 223 K/mm3 (150-450); RBC Distribution Width CV 13.9 % (11.6-14.6); RBC Distribution Width SD 45.3 fl (35.1-43.9); Red Blood Count 3.96 M/mm3 (4.6-6.2); White Blood Count 6.5 K/mm3 (4.4-11.0)
[2024-04-29 06:20] LABS: Anion Gap 5 (5-15); BUN 20 mg/dL (7-18); Calcium,Total 8.9 mg/dL (8.5-10.1); Chloride 93 mmol/L (98-107); EST Glomerular Filtration Rate 75 mL/min (>60); Est Glom Filt Rate - Afr Amer 91 mL/min (>60); Estimated Creatinine Clearance 47.26 ml/min; Glucose 111 mg/dL (74-106); Magnesium 1.7 mg/dL (1.6-2.6); Potassium 4.5 mmol/L (3.5-5.1); Sodium Level 125 mmol/L (136-145)
[2024-04-29 06:30] LABS: Phosphorus 3.3 mg/dL (2.5-4.9)
--- NOTE | 2024-04-29 07:25 | PCM.PN.HOSP ---
Reason for Visit Reason for Visit: Diagnoses Hypo-osmolality and hyponatremia (04/27/24) Other symptoms and signs involving cognitive functions and awareness (04/27/24) Syncope and collapse (04/27/24) Subjective Subjective Patient was seen in consultation by teleneurology with Dr. Vivi Spangler recommended for patient to undergo subsequent evaluation with MRI and routine EEG; no change in patient's sodium level despite fluid restriction. Subsequently started on sodium tablets and consultation placed to nephrology Objective Data Objective Data Vital Signs: Vital Signs Temp Pulse Resp BP Pulse Ox O2 Del Method 97.6 F L 58 L 18 138/54 H 95 Room Air 04/29/24 03:08 04/29/24 03:08 04/29/24 03:08 04/29/24 03:08 04/29/24 03:08 04/29/24 03:08 Oxygen Delivery Method Room Air Weight: 64.2 kg Body Mass Index (BMI) 20.9 Intake & Output: Intake and Output for Last 24 Hours 04/27/24 04/28/24 04/29/24 23:59 23:59 23:59 Intake Total 2000 / 2000 Output Total 400 / 900 1700 / 1700 Balance 1600 / 1100 -1700 / -1700 Lab / Micro Data 04/29/24 05:34 04/29/24 05:34 Labs: Laboratory Results - last 24 hr 04/28/24 04:45: Cortisol 17.20 04/28/24 13:07: Sodium 127 L, Potassium 3.9, Chloride 93 L, Carbon Dioxide 29.0, Anion Gap 5, BUN 17, Creatinine 1.03, Estim Creat Clear Calc 45.88, Est GFR (MDRD) Af Amer 88, Est GFR (MDRD) Non-Af 73, BUN/Creatinine Ratio 16.5, Glucose 118 H, Calcium 8.6 04/28/24 16:51: Sodium 128 L, Potassium 4.0, Chloride 93 L, Carbon Dioxide 29.0, Anion Gap 6, BUN 20 H, Creatinine 1.07, Estim Creat Clear Calc 44.17, Est GFR (MDRD) Af Amer 84, Est GFR (MDRD) Non-Af 69, BUN/Creatinine Ratio 18.7, Glucose 129 H, Calcium 8.7 04/29/24 05:34: WBC 6.5, RBC 3.96 L, Hgb 12.3 L, Hct 35.1 L, MCV 88.6, MCH 31.1, MCHC 35.0, RDW Std Deviation 45.3 H, RDW Coeff of Chaim 13.9, Plt Count 223, MPV 10.6, Sodium 125 L, Potassium 4.5, Chloride 93 L, Carbon Dioxide 27.0, Anion Gap 5, BUN 20 H, Creatinine 1.00, Estim Creat Clear Calc 47.26, Est GFR (MDRD) Af Amer 91, Est GFR (MDRD) Non-Af 75, BUN/Creatinine Ratio 20.0, Glucose 111 H, Calcium 8.9, Phosphorus 3.3, Magnesium 1.7 Micro: Microbiology 04/27/24 21:08 Mucosa - Nose SARS-CoV-2, Influenza & RSV (PCR) - Final Radiography Diagnostic Testing: Radiology Impression KUB X-Ray 04/28/24 01:20 IMPRESSION: 1. Moderate colon and rectal gas. 2. Borderline cardiomegaly. 3. Calcifications typical of chronic calcific pancreatitis. 4. Aortoiliac double lumen metallic stent grafts apparently bridging known distal infrarenal aortic aneurysm. Electronically Signed: Mariam Caal MD at 2:53 EDT , Physical Exam Narrative GENERAL: Patient is slow to respond HEENT: Atraumatic; normocephalic EYES; Anicteric, Normal Conjunctiva NECK; supple, normal thyroid, RESPIRATORY: Diminished to auscultation CARDIOVASCULAR: Regular S1 S2, GI: soft, normoactive bowel sounds, : No Renal angle tenderness; EXTREMITIES: No edema, no clubbing, MUSCULOSKELETAL: no muscle wasting NEURO: Awake; no lateralizing signs. SKIN: No Rash PSYCH; Flat affect Assessment & Plan Assessment/Plan (1) Syncope: (2) Hyponatremia: PLAN: Plan Patient is an 89-year-old gentleman presented with altered mental status with prolonged period of unresponsiveness following the initial event. There was no seizure activity noted by family. Was found to have low sodium levels admitted to a monitored floor for further management 1. Acute encephalopathy ? Metabolic encephalopathy versus postictal state from nonepileptic seizure.Per Family patient has had multiple episodes and each episode is followed by prolonged period of unresponsiveness. Admitted to monitored bed ordered EEG, MRI and consult placed to teleneuro -04/29/2024; Patient was seen in consultation by teleneurology with Dr. Vivi Spangler recommended for patient to undergo subsequent evaluation with MRI and routine EEG 2. Hyponatremia ?Patient evaluation including urine osmole and sodium levels consistent with SIADH patient will be placed on fluid restriction with daily monitoring with BMP ordered for further eval ? 04/29/2024; no change in patient's sodium level despite fluid restriction. Subsequently started on sodium tablets and consultation placed to nephrology 3. 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 Patient is on antiplatelet therapy with clopidogrel as well as statin therapy with atorvastatin did continue. Also requested for PT OT eval 4. BPH with lower urinary obstructive symptoms - Patient treated with tamsulosin 5. History of abdominal aortic aneurysm ? Stable 6. Celiac disease ? Per history 7. Vitamin D deficiency ? Patient is on vitamin D3 supplementation plan is to continue following home medication reconciliation 8. Anemia - Secondary to chronic disorder monitoring H&H and transfuse if patient becomes symptomatic or hemoglobin falls below 7 9. Hypertension - Blood pressure controlled, home medications continued with dose adjustment as needed 10. Anxiety disorder ? Patient is on lorazepam as needed 11. DVT prophylaxis - On enoxaparin Time spent in the patient's overall evaluation,decision-making process, review of diagnostic data, adjustment of management, discussion with other providers, nursing nursing and ancillary staff involved in patient's care documentation, 36 minutes Charges/Coding Visit Charges Inpatient E&M: 25363 Subs Hosp L2
--- NOTE | 2024-04-29 08:00 | MRI_ITS ---
HISTORY: syncope. TECHNIQUE: Multiplanar and multisequence MR images of the brain were obtained without contrast. 282 images. COMPARISON: CT 04/27/2024, MR 04/03/2023. FINDINGS: BRAIN PARENCHYMA: Chronic moderate right frontal and moderate-large right parieto-occipital encephalomalacia. Small chronic left cerebral infarct. Chronic white matter changes. No abnormal focus of restricted diffusion. No acute intracranial hemorrhage identified. CSF SPACES: Mild generalized volume loss. No significant midline shift or other mass effect.No extra-axial fluid collection. VASCULAR SYSTEM: Major intracranial flow voids are maintained. PARANASAL SINUSES AND MASTOID AIR CELLS: No significant air fluid levels. ORBITS: Bilateral lens resections. MRI/Brain without Contrast IMPRESSION: No evidence for acute infarct. 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 Chronic involutional and white matter changes. Electronically Signed: Donna Dale MD at 14:07 EDT ,
[2024-04-29] MEDS: Sodium Chloride 1 GM Tablet PO (08:21)
[2024-04-29] MEDS: Metoprolol Tartrate 50 MG Tablet PO (08:21)
[2024-04-29] MEDS: Omega-3 Acid Ethyl Esters 1 GM Capsule PO (08:21)
[2024-04-29] MEDS: Magnesium Chloride 64 MG Delay Rel.Tablet 128 MG PO (08:21)
[2024-04-29] MEDS: Tamsulosin HCl 0.4 MG Capsule PO (08:22)
[2024-04-29] MEDS: Enoxaparin 40 MG/0.4 ML Syringe SC (08:22)
[2024-04-29] MEDS: Clopidogrel Bisulfate 75 MG Tablet PO (08:22)
[2024-04-29] MEDS: Cholecalciferol (Vit D3) 125 MCG CAPSULE (5,000 UNITS) PO (08:22)
[2024-04-29] MEDS: amLODIPine 5 MG Tablet PO (08:22)
[2024-04-29] MEDS: Nystatin Powder 15gm Bottle 1 APPLIC TOPICAL (08:23)
--- NOTE | 2024-04-29 11:34 | PCM.CONS.R ---
Assessment & Plan Assessment/Plan (1) Hyponatremia: PLAN: Euvolemic hyponatremia, longstanding, he is at baseline. 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 No need for hypertonic saline Fluid restriction 1200 cc / 24 hours No need for salt tablets at the moment Encourage oral protein intake HPI Consult Data Date of Consult: 04/29/24 HPI Narrative Reason for Consultation: Euvolemic hyponatremia HPI Narrative: SERGO ROSAS, is a 89 M who presents to [facility] after altered mental status/syncope. He has a history of stroke in the past and has known to have hyponatremia for extended period of time. He has been evaluated on several occasions, urine studies consistent with SIADH. Review of records showed that he is sodium level ranges between 125 and 130. Most of the times he is asymptomatic. Endorses low food intake, has been on fluid restriction. Denies shortness of breath, PND, orthopnea. Has no history of kidney disease, thyroid disease, liver disease. Euvolemic on exam [facility] Medical History BPH (benign prostatic hyperplasia) Hyperlipidemia Internal hemorrhoids Diverticulosis Celiac disease Carotid stenosis, bilateral Non-smoker AAA (abdominal aortic aneurysm) Hypertension Stroke/cerebrovascular accident Medical History unable to obtain Home Medications ?Medication ?Instructions ?Recorded ?Last Taken ?Type cholecalciferol (vitamin D3) 125 5,000 unit PO DAILY SUPPLEMENT 04/06/23 04/21/24 History mcg (5,000 unit) tablet (Vitamin D3) amlodipine 5 mg tablet 5 mg PO DAILY blood pressure #45 04/19/23 04/21/24 Rx tabs atorvastatin 40 mg tablet 40 mg PO QHS CHOLESTEROL #30 tabs 04/19/23 04/20/24 Rx magnesium chloride 64 mg 128 mg (2 x 64 mg) PO DAILY 04/19/23 04/21/24 Rx (magnesium chloride) SUPPLEMENT #30 tabs tablet,delayed release (Mag 64) metoprolol tartrate 50 mg tablet 50 mg PO BID HTN #60 tabs 04/19/23 04/21/24 Rx tamsulosin 0.4 mg capsule 0.4 mg PO DAILY TREAT ENLARGED 04/19/23 04/21/24 Rx PROSTRATE #30 caps ALGUECAL 2 cap PO DAILY SUPPLEMENT 04/21/24 Unknown History clopidogrel 75 mg tablet (Plavix) 75 mg PO DAILY HEART 04/21/24 04/21/24 History hydrocortisone 2.5 % topical 1 applic topical DAILY PRN itching 04/21/24 Unknown History ointment lorazepam 0.5 mg tablet 0.5 mg PO TID PRN anxiety 04/21/24 Unknown History omega 3 350 mg-dha 235 mg-epa 90 1 cap PO DAILY SUPPLEMENT 04/21/24 Unknown History mg-fish oil 597 mg capsule,delay rel (Enloe-3) calamine phenolated lotion 1 applic topical BID 04/27/24 Unknown History enoxaparin 40 mg/0.4 mL 40 mg subcut DAILY 04/27/24 Unknown History subcutaneous syringe nystatin 100,000 unit/gram topical 1 applic topical BID 04/27/24 Unknown History powder Allergy/AdvReac Type Severity Reaction Status Date / Time Food Allergies: Uncoded AdvReac Intermediate Other Verified 04/21/24 11:49 Family History Father CVA (cerebral vascular accident) Sister Lupus (systemic lupus erythematosus) Brother Diabetes Brother Diabetes Surgical History History of excision of lesion History of excision of lesion H/O abdominal aortic aneurysm repair Social History household members: spouse housing: other details: Private one-story home with no steps. 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 pets and animals: Yes Smoking Status: Never smoker alcohol intake: never substance use type: does not use ROS Constitutional Constitutional: Denies chills, fever(s), malaise, weakness, weight gain or weight loss Eyes Eyes: Denies blindness, blurry vision, change in vision, discongugate gaze, double vision, dry eyes or loss of vision ENT HEENT: Denies dry mouth, epistaxis, hoarseness, loss taste/smell or nasal congestion Cardiovascular Cardiovascular: Denies chest pain, claudication, diaphoresis, dyspnea on exertion, edema, irregular heart rhythm, leg edema, orthopnea, palpitations or syncope Respiratory/Chest Respiratory/Chest: Denies dry cough, dyspnea on exertion, hemoptysis, portable oxygen @ home, productive cough, shortness of breath at rest or wheezing Gastrointestinal Gastrointestinal: Denies abdominal pain, anorexia, diarrhea, dry heaves, hematemesis, hematochezia, melena, nausea, rectal bleeding, vomiting or weight changes Genitourinary Genitourinary: Denies change in urinary stream, difficulty urinating, dribbling, dysuria, flank pain, hematuria, nocturia, oliguria, post void dribbling, urinary frequency, urinary hesitancy, urinary incontinence or urinary urgency Musculoskeletal Musculoskeletal: Denies abnormal gait, arthralgias, joint stiffness, joint swelling, muscle cramps or myalgias Integumentary Integumentary: Denies dry skin, erythema, jaundice, lesions, pruritus, rash or skin ulcer Neurologic Neurologic: Reports syncope; Denies abnormal gait, burning sensations, confusion, focal weakness, frequent falls, headache(s), numbness, restless legs, seizures, tremor(s) or weakness Psychiatric Psychiatric: Denies anxiety, confusion, depression or hallucinations Endocrine Endocrinology: Denies cold intolerance, fatigue, heat intolerance, polydipsia or polyuria Hematologic/Lymphatic Hematologic/Lymphatic: Denies anemia, easy bleeding or easy bruising Physical Exam Const alert, oriented x3, no apparent distress and average body habitus General Appearance: well developed Orientation / Consciousness: oriented to person and oriented to place Nutritional Appearance: thin HEENT normocephalic Head and Scalp: atraumatic Eyes PERRL Neck no lymphadenopathy Resp no use of accessory muscles and clear to auscultation bilaterally Cardio regular rate and no rub GI non-tender Auscultation: normoactive bowel sounds Palpation: soft Back/Spine normal ROM Skin no rashes or lesions noted Neuro Sensorium / Orientation: awake and alert Psych cooperative Lab / Micro Data Attestation: I reviewed the patient's lab results. 04/29/24 05:34 04/29/24 05:34 Labs: Laboratory Results - last 24 hr 04/28/24 13:07: Sodium 127 L, Potassium 3.9, Chloride 93 L, Carbon Dioxide 29.0, Anion Gap 5, BUN 17, Creatinine 1.03, Estim Creat Clear Calc 45.88, Est GFR (MDRD) Af Amer 88, Est GFR (MDRD) Non-Af 73, BUN/Creatinine Ratio 16.5, Glucose 118 H, Calcium 8.6 04/28/24 16:51: Sodium 128 L, Potassium 4.0, Chloride 93 L, Carbon Dioxide 29.0, Anion Gap 6, BUN 20 H, Creatinine 1.07, Estim Creat Clear Calc 44.17, Est GFR (MDRD) Af Amer 84, Est GFR (MDRD) Non-Af 69, BUN/Creatinine Ratio 18.7, Glucose 129 H, Calcium 8.7 04/29/24 05:34: WBC 6.5, RBC 3.96 L, Hgb 12.3 L, Hct 35.1 L, MCV 88.6, MCH 31.1, MCHC 35.0, RDW Std Deviation 45.3 H, RDW Coeff of Chaim 13.9, Plt Count 223, MPV 10.6, Sodium 125 L, Potassium 4.5, Chloride 93 L, Carbon Dioxide 27.0, Anion Gap 5, BUN 20 H, Creatinine 1.00, Estim Creat Clear Calc 47.26, Est GFR (MDRD) Af Amer 91, Est GFR (MDRD) Non-Af 75, BUN/Creatinine Ratio 20.0, Glucose 111 H, Calcium 8.9, Phosphorus 3.3, Magnesium 1.7
--- NOTE | 2024-04-29 15:40 | CASEMGMT ---
ROSANA met with patient and his son. Introduced self and role at [facility]. Patient's son confirmed the plan is for patient to go back to [facility] TCU. Marta RAMIREZ
--- NOTE | 2024-04-29 15:56 | CHAPLAIN ---
Type of Pastoral Visit _x__ Initial Visit ___ Follow-up Visit ___ On-call Visit ___ General Patient Visit ___ Spiritual Assessment ___ Family Conference ___ Bereavement ___ Rapid Response ___ Code Blue ___ Other (describe below) Pastoral Care Referral From ___ Patient _x__ Family ___ Nurse ___ Physician ___ Filter Tank Tender Helper Head ___ Clothing Room Supervisor ___ Other (describe below) Sacrament/Intervention _x__ Active listening ___ Anointing ___ Lutheran ___ Bereavement ___ Communion ___ Kimberly exploration ___ _x__ Life review _x__ Prayer ___ Reconciliation ___ Sacrament of Sick _x__ Supportive presence ___ Wedding ___ Other (describe below) Pastoral Comments patient is awake and sitting up in bed; pt has two granddaughters with him in the room; pt shows some confusion with his details, his questions, and his responses to questions; pt believes that his is on her way to meet him for supper but his spouse is also a patient in the hospital; pt affirms his kimberly in God and the hope of heaven; pt welcomes presence and prayer
--- NOTE | 2024-04-29 20:28 | NURSING ---
Dr Gilmore texted with hr and bp, and the hs meds he is scheduled to take, along with that fm member is concerned about him being more confused. Fld intake for the day may have been about 500 cc.
[2024-04-29] MEDS: 0.9% Saline Lock 10 ML Syringe IV (22:14)
[2024-04-29] MEDS: 0.9% Normal Saline (1000mL) 1,000 ML 125 ML IV (22:14)
[2024-04-29 22:52] LABS: Absolute Lymphocyte Count 1.45 X10^3/uL (0.83-4.51); Absolute Neutrophil Count 5.2 X10^3/uL (2.0-7.7); Basophil# 0.02 X10^3/uL; Basophil% 0.3 % (0-1); Eosinophil# 0.24 X10^3/uL; Hematocrit 35.1 % (40-54); Hemoglobin 12.1 g/dL (13.0-16.5); Lymphocyte # 1.45 X10^3/ul (0.83-4.51); Lymphocyte % 18.4 % (19-41); Mean Corp Hgb Conc 34.5 g/dL (32-36); Mean Corpuscular Hgb 30.3 pg (27.0-32.0); Mean Platelet Vol. 9.9 fl (6.2-12.0); Monocyte# 0.89 X10^3/uL; Monocyte% 11.3 % (0-10); NRBC Flagged by Analyzer 0 % (0-5); Neutrophil # 5.24 X10^3/uL (2.7-7.7); Neutrophil % 66.6 % (47-70); Platelet Count 235 K/mm3 (150-450); RBC Distribution Width CV 14.2 % (11.6-14.6); RBC Distribution Width SD 45.6 fl (35.1-43.9); Red Blood Count 3.99 M/mm3 (4.6-6.2); White Blood Count 7.9 K/mm3 (4.4-11.0)
[2024-04-29 22:54] LABS: POSITIVE COUNT NO; POSITIVE DIFFERENTIAL NO; POSITIVE MORPHOLOGY NO
[2024-04-29 23:09] LABS: Anion Gap 7 (5-15); BUN 29 mg/dL (7-18); BUN/Creat Ratio 24.8 RATIO (10-20); Calcium,Total 8.9 mg/dL (8.5-10.1); Chloride 95 mmol/L (98-107); Creatinine, Serum 1.17 mg/dL (0.70-1.30); EST Glomerular Filtration Rate 63 mL/min (>60); Est Glom Filt Rate - Afr Amer 76 mL/min (>60); Estimated Creatinine Clearance 40.39 ml/min; Glucose 113 mg/dL (74-106); Potassium 4.7 mmol/L (3.5-5.1); Sodium Level 128 mmol/L (136-145)
--- NOTE | 2024-04-29 23:19 | NURSING ---
[id number] Dr Fernandez called Kesha Waldrop the POA, informed her pt is unresponsive, vss, he is stiff, doing labs now, he was started on iv flds, stated he had an MRI this am, discussed the possibility of doing a CT scan but don't plan to transfer him to another hospital, blood glucose was normal. She asked if she should come, Dr Puckett replied its not imminent, and it is up to her if she would like to come.
[2024-04-30] VITALS (8 sets, daily range): BP systolic 121–172; BP diastolic 69–82; PULSE 70–75; RESP 10–18; TEMP 36.4–36.9; O2SAT 95–97
[2024-04-30 01:53] LABS: Bedside Glucose 121 mg/dL (74-106)
[2024-04-30 06:11] LABS: Hemoglobin 12.1 g/dL (13.0-16.5); Mean Corp Hgb Conc 34.6 g/dL (32-36); Mean Corpuscular Hgb 30.8 pg (27.0-32.0); Mean Corpuscular Volume 89.1 fL (80-94); Mean Platelet Vol. 10.5 fl (6.2-12.0); Platelet Count 235 K/mm3 (150-450); RBC Distribution Width CV 14.1 % (11.6-14.6); RBC Distribution Width SD 45.8 fl (35.1-43.9); Red Blood Count 3.93 M/mm3 (4.6-6.2); White Blood Count 7.1 K/mm3 (4.4-11.0)
[2024-04-30 06:41] LABS: Anion Gap 6 (5-15); BUN 23 mg/dL (7-18); BUN/Creat Ratio 23.6 RATIO (10-20); Calcium,Total 8.6 mg/dL (8.5-10.1); Chloride 99 mmol/L (98-107); Creatinine, Serum 0.97 mg/dL (0.70-1.30); EST Glomerular Filtration Rate 78 mL/min (>60); Est Glom Filt Rate - Afr Amer 94 mL/min (>60); Estimated Creatinine Clearance 48.72 ml/min; Glucose 104 mg/dL (74-106); Potassium 4.1 mmol/L (3.5-5.1); Sodium Level 131 mmol/L (136-145)
[2024-04-30] MEDS: LORazepam 2 MG/ML Syringe IV (07:18)
[2024-04-30] MEDS: Enoxaparin 40 MG/0.4 ML Syringe SC (08:57)
--- NOTE | 2024-04-30 09:32 | CASEMGMT ---
Insurance review for hospitals In-network with?[employer] MCR PPO insurance if transfer is recommended is as follows: [facility], [place], [facility], [place], [facility], [facility], [facility], [facility], [place], [facility]), and . Diana Pandey, Discharge Planning Asst.
--- NOTE | 2024-04-30 10:43 | PCM.PN.REN ---
Subjective Subjective Resting in bed, nonverbal nor following commands. No acute distress noted. Son at bedside. Objective Data Objective Data Vital Signs: Vital Signs Temp Pulse Resp BP Pulse Ox O2 Del Method 97.5 F L 75 16 154/82 H 96 Room Air 04/30/24 08:30 04/30/24 08:30 04/30/24 08:30 04/30/24 08:30 04/30/24 08:30 04/30/24 08:30 Oxygen Delivery Method Room Air Weight: 64.2 kg Body Mass Index (BMI) 20.9 Intake & Output: Intake and Output for Last 24 Hours 04/28/24 04/29/24 04/30/24 23:59 23:59 23:59 Intake Total 1999 / 1999 240 / 240 1000 / 1000 Output Total 400 / 900 2049 / 2049 850 / 850 Balance 1600 / 1100 -1810 / -1810 150 / 150 Lab / Micro Data 04/30/24 05:36 04/30/24 05:36 Labs: Laboratory Results - last 24 hr 04/29/24 22:39: POC Glucose 121 H 04/29/24 22:45: WBC 7.9, RBC 3.99 L, Hgb 12.1 L, Hct 35.1 L, MCV 88.0, MCH 30.3, MCHC 34.5, RDW Std Deviation 45.6 H, RDW Coeff of Chaim 14.2, Plt Count 235, MPV 9.9, Immature Gran % (Auto) 0.400, Neut % (Auto) 66.6, Lymph % (Auto) 18.4 L, Mathews % (Auto) 11.3 H, Eos % (Auto) 3.0, Baso % (Auto) 0.3, Absolute Neuts (auto) 5.2, Absolute Lymphs (auto) 1.45, Nucleated RBC % 0, Sodium 128 L, Potassium 4.7, Chloride 95 L, Carbon Dioxide 26.0, Anion Gap 7, BUN 29 H, Creatinine 1.17, Estim Creat Clear Calc 40.39, Est GFR (MDRD) Af Amer 76, Est GFR (MDRD) Non-Af 63, BUN/Creatinine Ratio 24.8 H, Glucose 113 H, Calcium 8.9 04/30/24 05:36: WBC 7.1, RBC 3.93 L, Hgb 12.1 L, Hct 35.0 L, MCV 89.1, MCH 30.8, MCHC 34.6, RDW Std Deviation 45.8 H, RDW Coeff of Chaim 14.1, Plt Count 235, MPV 10.5, Sodium 131 L, Potassium 4.1, Chloride 99, Carbon Dioxide 26.0, Anion Gap 6, BUN 23 H, Creatinine 0.97, Estim Creat Clear Calc 48.72, Est GFR (MDRD) Af Amer 94, Est GFR (MDRD) Non-Af 78, BUN/Creatinine Ratio 23.6 H, Glucose 104, Calcium 8.6 Micro: Microbiology 04/27/24 21:08 Mucosa - Nose SARS-CoV-2, Influenza & RSV (PCR) - Final Radiography Diagnostic Testing: Radiology Impression Brain MRI 04/29/24 08:00 IMPRESSION: No evidence for acute infarct. 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 Chronic involutional and white matter changes. Electronically Signed: Donna Dale MD at 14:07 EDT Reading Location ID and State: [facility] / [place] Tel , Service support , Physical Exam Narrative Resting in bed, no apparent distress S1, S2, RRR Lungs clear No pitting edema Assessment & Plan Assessment/Plan (1) Hyponatremia: PLAN: - Acute on chronic hyponatremia; euvolemic hyponatremia, longstanding, he is at baseline. 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 Low serum sodium dating back to 2016. Baseline Sodium level ~129 to 131 but does have fluctuating levels higher and lower than baseline. No need for hypertonic saline Fluid restriction 1200 cc / 24 hours he was started on salt tablets 1gm bid but now not taking anything by mouth Encourage oral protein intake - AMS; Further work up underway. Brain MRI no evidence of acute infarct. likely not related to hyponatremia as sodium level currently near patient's baseline.
[2024-04-30] MEDS: Nystatin Powder 15gm Bottle 1 APPLIC TOPICAL (11:45)
--- NOTE | 2024-04-30 13:06 | CHAPLAIN ---
Type of Pastoral Visit ___ Initial Visit _x__ Follow-up Visit ___ On-call Visit ___ General Patient Visit ___ Spiritual Assessment ___ Family Conference ___ Bereavement ___ Rapid Response ___ Code Blue ___ Other (describe below) Pastoral Care Referral From ___ Patient _x__ Family ___ Nurse ___ Physician ___ [place] Service Captain ___ Manager Image ___ Other (describe below) Sacrament/Intervention _x__ Active listening ___ Anointing ___ Hindu ___ Bereavement ___ Communion ___ Kimberly exploration ___ ___ Life review __x_ Prayer ___ Reconciliation ___ Sacrament of Sick _x__ Supportive presence ___ Wedding ___ Other (describe below) Pastoral Comments this patient has not responded nor been able to awaken or communicate this morning; pt appears to be sleeping comfortably but not able to arouse; son [place] is sitting with patient in the room; visit was made to the patient's in TCU just prior to this visit; is tearful and concerned for the condition of her and his decline; she encouraged this visit to the patient; son is able to give information on status and on the state of waiting to see if patient becomes more coherent and responsive; this is some question about keeping patient in PCU or moving him; son and daughter have been very supportive of both parents; this patient has been a caregiver for his in recent months even though he had suffered a stroke a year ago; the family is strong in kimberly and welcome the support of spiritual care; a third child of the patient lives in [place] and not able to come to the hospital today; time given to son to support and affirm the care given; prayer is given at the bedside for patient per son's invitation; offer of ongoing support given
--- NOTE | 2024-04-30 13:55 | PN_ITS ---
Subjective Subjective Patient seen and examined. Son and daughter were by his bedside. Patient is very lethargic and minimally responsive. He apparently received IV ativan 2mg early this morning, apparently because he was lethargic, so it was thought he may be having a seizure. Patient is very lethargic today. Unable to get any response to even sternal rub. Unable to do review of systems. Sodium is 131 today. Objective Data Objective Data Vital Signs: Vital Signs Temp Pulse Resp BP Pulse Ox O2 Del Method 97.8 F 72 14 157/74 H 95 Room Air 04/30/24 11:00 04/30/24 11:00 04/30/24 11:00 04/30/24 11:00 04/30/24 11:00 04/30/24 11:00 Oxygen Delivery Method Room Air Weight: 141 lb 8.588 oz Body Mass Index (BMI) 20.9 Intake & Output: Intake and Output for Last 24 Hours 04/28/24 04/29/24 04/30/24 23:59 23:59 23:59 Intake Total 1999 / 1999 240 / 240 1000 / 1000 Output Total 400 / 900 2049 / 2049 1050 / 1050 Balance 1600 / 1100 -1810 / -1810 -50 / -50 Lab / Micro Data 04/30/24 05:36 04/30/24 05:36 Labs: Laboratory Results - last 24 hr 04/29/24 22:39: POC Glucose 121 H 04/29/24 22:45: WBC 7.9, RBC 3.99 L, Hgb 12.1 L, Hct 35.1 L, MCV 88.0, MCH 30.3, MCHC 34.5, RDW Std Deviation 45.6 H, RDW Coeff of Chaim 14.2, Plt Count 235, MPV 9.9, Immature Gran % (Auto) 0.400, Neut % (Auto) 66.6, Lymph % (Auto) 18.4 L, M colton % (Auto) 11.3 H, Eos % (Auto) 3.0, Baso % (Auto) 0.3, Absolute Neuts (auto) 5.2, Absolute Lymphs (auto) 1.45, Nucleated RBC % 0, Sodium 128 L, Potassium 4.7, Chloride 95 L, Carbon Dioxide 26.0, Anion Gap 7, BUN 29 H, Creatinine 1.17, Estim Creat Clear Calc 40.39, Est GFR (MDRD) Af Amer 76, Est GFR (MDRD) Non-Af 63, BUN/Creatinine Ratio 24.8 H, Glucose 113 H, Calcium 8.9 04/30/24 05:36: WBC 7.1, RBC 3.93 L, Hgb 12.1 L, Hct 35.0 L, MCV 89.1, MCH 30.8, MCHC 34.6, RDW Std Deviation 45.8 H, RDW Coeff of Chaim 14.1, Plt Count 235, MPV 10.5, Sodium 131 L, Potassium 4.1, Chloride 99, Carbon Dioxide 26.0, Anion Gap 6, BUN 23 H, Creatinine 0.97, Estim Creat Clear Calc 48.72, Est GFR (MDRD) Af Amer 94, Est GFR (MDRD) Non-Af 78, BUN/Creatinine Ratio 23.6 H, Glucose 104, Calcium 8.6 Micro: Microbiology 04/27/24 21:08 Mucosa - Nose SARS-CoV-2, Influenza & RSV (PCR) - Final Radiography Diagnostic Testing: Radiology Impression Brain MRI 04/29/24 08:00 IMPRESSION: No evidence for acute infarct. 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 Chronic involutional and white matter changes. Electronically Signed: Donna Dale MD at 14:07 EDT Reading Location ID and State: [facility] / [place] Tel , Service support , Physical Exam Const Orientation / Consciousness: lethargic HEENT normocephalic and head/scalp atraumatic Mouth: dry mucous membranes Eyes EOMs intact bilaterally Neck no lymphadenopathy and supple Lymph Lymphatic: no lymphadenopathy noted Resp normal respiratory effort, normal air movement and clear to auscultation bilaterally Cardio regular rate, regular rhythm, S1 normal heart sound, S2 normal heart sound and no murmurs GI normal to inspection, nondistended, normoactive bowel sounds, soft to palpation, non-tender and non-distended Extremity normal capillary refill, no clubbing, cyanosis or edema and no calf tenderness General Extremity: no tenderness to palpation of joints or extremities Skin General Skin Exam: no breakdown Neuro Neuro Narrative: very frail, weak and lethargic Assessment & Plan Assessment/Plan (1) Altered mental status: (2) Hyponatremia: PLAN: Plan #Acute encephalopathy * Concerns for possible nonepileptic seizure versus metabolic encephalopathy. He was also hyponatremic at 125 but this has improved and is now 131. * Neurology on board. He had EEG which showed no evidence of his seizure. MRI of the brain has been done. * Patient obtain Ativan in the early hours of this morning and I feel that this has made him even more obtunded. * I discussed with neurology about possible transfer for continuous EEG for nonepileptic seizures but per the discussion, in light of him having gotten to a milligram of Ativan, he has persistent obtundation may be due to the Ativan he received. Will therefore watch overnight to see how it improves. Discussed with patient's family. * Fall precautions. #Hyponatremia: * Urine and sodium test done were consistent with SIADH. * Patient on fluid restriction of 1200 cc per 24 hours. * Sodium is now 131. * This is not low enough to cause such obtundation. * Nephrology on board. * # History of CVA with residual right upper extremity weakness: On Plavix and statin. PT OT on board. #BPH with lower obstructive urinary symptoms: On Flomax History of abdominal aortic aneurysm: Stable #Anemia: Stable. Transfuse if hemoglobin is less than 7 #Anxiety: On Ativan as needed #Hypertension: on amlodipine and metoprolol #DVT prophylaxis: on lovenox Charges/Coding Visit Charges Inpatient E&M: 14054 Subs Hosp L3
[2024-04-30] MEDS: Sodium Chloride 1 GM Tablet PO (21:53)
[2024-04-30] MEDS: Atorvastatin Calcium 40 MG Tablet PO (21:53)
[2024-04-30] MEDS: amLODIPine 2.5 MG Tablet PO (21:53)
[2024-04-30] MEDS: Metoprolol Tartrate 50 MG Tablet PO (21:53)
[2024-05-01] VITALS (8 sets, daily range): BP systolic 108–158; BP diastolic 58–88; PULSE 62–71; RESP 16–20; TEMP 36.1–36.6; O2SAT 96–99
[2024-05-01 05:33] LABS: Hematocrit 35.9 % (40-54); Hemoglobin 12.3 g/dL (13.0-16.5); Mean Corp Hgb Conc 34.3 g/dL (32-36); Mean Corpuscular Hgb 30.7 pg (27.0-32.0); Mean Corpuscular Volume 89.5 fL (80-94); Mean Platelet Vol. 10.2 fl (6.2-12.0); Platelet Count 245 K/mm3 (150-450); RBC Distribution Width CV 14.3 % (11.6-14.6); RBC Distribution Width SD 46.9 fl (35.1-43.9); Red Blood Count 4.01 M/mm3 (4.6-6.2); White Blood Count 7.1 K/mm3 (4.4-11.0)
[2024-05-01 06:10] LABS: Anion Gap 3 (5-15); BUN 21 mg/dL (7-18); BUN/Creat Ratio 19.8 RATIO (10-20); Calcium,Total 8.9 mg/dL (8.5-10.1); Chloride 97 mmol/L (98-107); Creatinine, Serum 1.06 mg/dL (0.70-1.30); EST Glomerular Filtration Rate 70 mL/min (>60); Est Glom Filt Rate - Afr Amer 85 mL/min (>60); Estimated Creatinine Clearance 44.58 ml/min; Glucose 94 mg/dL (74-106); Magnesium 1.7 mg/dL (1.6-2.6); Potassium 4.3 mmol/L (3.5-5.1); Sodium Level 129 mmol/L (136-145)
[2024-05-01] MEDS: Clopidogrel Bisulfate 75 MG Tablet PO (11:16)
[2024-05-01] MEDS: Cholecalciferol (Vit D3) 125 MCG CAPSULE (5,000 UNITS) PO (11:16)
[2024-05-01] MEDS: Metoprolol Tartrate 50 MG Tablet PO ×2 (11:17→20:42)
[2024-05-01] MEDS: Omega-3 Acid Ethyl Esters 1 GM Capsule PO (11:17)
[2024-05-01] MEDS: Sodium Chloride 1 GM Tablet PO ×2 (11:17→20:48)
[2024-05-01] MEDS: amLODIPine 5 MG Tablet PO (11:17)
[2024-05-01] MEDS: Enoxaparin 40 MG/0.4 ML Syringe SC (11:17)
[2024-05-01] MEDS: Magnesium Chloride 64 MG Delay Rel.Tablet 128 MG PO (11:17)
[2024-05-01] MEDS: Tamsulosin HCl 0.4 MG Capsule PO (11:17)
[2024-05-01] MEDS: Nystatin Powder 15gm Bottle 1 APPLIC TOPICAL ×2 (11:18→23:00)
--- NOTE | 2024-05-01 12:13 | CASEMGMT ---
Physician indicated patient will be ready for discharge likely tomorrow. SW asked Erin to start the pre-cert. Marta RAMIREZ
--- NOTE | 2024-05-01 13:18 | PN_ITS ---
Subjective Subjective Patient seen and examined. He was much more alert today and was able to communicate. However he was confused and could not tell me where he was and even thought his son was his brother. Unable to do review of systems due to his confusion. He has however remained hemodynamically stable. Objective Data Objective Data Vital Signs: Vital Signs Temp Pulse Resp BP Pulse Ox O2 Del Method 97.8 F 70 18 119/58 L 98 Room Air 05/01/24 11:09 05/01/24 11:17 05/01/24 11:09 05/01/24 11:09 05/01/24 11:05/01/24 11:09 Oxygen Delivery Method Room Air Weight: 141 lb 8.588 oz Body Mass Index (BMI) 20.9 Intake & Output: Intake and Output for Last 24 Hours 04/29/24 04/30/24 05/01/24 23:59 23:59 23:59 Intake Total 240 / 240 1000 / 1350 470 / 470 Output Total 2049 / 2049 1250 / 1550 550 / 550 Balance -1810 / -1810 -250 / -200 -80 / -80 Lab / Micro Data 05/01/24 04:50 05/01/24 04:50 Labs: Laboratory Results - last 24 hr 05/01/24 04:50: WBC 7.1, RBC 4.01 L, Hgb 12.3 L, Hct 35.9 L, MCV 89.5, MCH 30.7, MCHC 34.3, RDW Std Deviation 46.9 H, RDW Coeff of Chaim 14.3, Plt Count 245, MPV 10.2, Sodium 129 L, Potassium 4.3, Chloride 97 L, Carbon Dioxide 29.0, Anion Gap 3 L, BUN 21 H, Creatinine 1.06, Estim Creat Clear Calc 44.58, Est GFR (MDRD) Af Amer 85, Est GFR (MDRD) Non-Af 70, BUN/Creatinine Ratio 19.8, Glucose 94, Calcium 8.9, Magnesium 1.7 Micro: Microbiology 04/27/24 21:08 Mucosa - Nose SARS-CoV-2, Influenza & RSV (PCR) - Final Physical Exam Const alert Orientation / Consciousness: confused and lethargic HEENT normocephalic and head/scalp atraumatic Eyes EOMs intact bilaterally Neck no lymphadenopathy and supple Neck Narrative: No thyromegaly Lymph Lymphatic: no lymphadenopathy noted Resp normal respiratory effort, normal air movement, no retractions, no use of accessory muscles and clear to auscultation bilaterally Cardio regular rate, regular rhythm, S1 normal heart sound, S2 normal heart sound and no murmurs GI normal to inspection, nondistended, normoactive bowel sounds, soft to palpation, non-tender and non-distended GI Narrative: Slightly tender to palpation. Normal bowel sounds. Extremity normal to inspection, normal capillary refill, no clubbing, cyanosis or edema and no calf tenderness General Extremity: no tenderness to palpation of joints or extremities Skin General Skin Exam: no breakdown Neuro Neuro Narrative: very frail, weak and lethargic Motor Exam: general weakness Assessment & Plan Assessment/Plan (1) Altered mental status: (2) Hyponatremia: PLAN: Plan #Acute encephalopathy * Concerns for possible nonepileptic seizure versus metabolic encephalopathy. He was also hyponatremic at 125 but this has improved and is now 129 today * Neurology on board. He had EEG which showed no evidence of his seizure. MRI of the brain showed old right cerebral infarcts and chronic involutional and white matter changes, and no evidence of acute infarct * patient is much more alert and communicative today * family wishes to talk to neurology today to gt more answers about his episodic encephalopathy #Hyponatremia: * Urine and sodium test done were consistent with SIADH. * Patient on fluid restriction of 1200 cc per 24 hours. * Sodium is now 29 today. * Nephrology on board. * # History of CVA with residual right upper extremity weakness: On Plavix and statin. PT OT on board. #BPH with lower obstructive urinary symptoms: On Flomax History of abdominal aortic aneurysm: Stable #Anemia: Stable. Transfuse if hemoglobin is less than 7 #Anxiety: On Ativan as needed #Hypertension: on amlodipine and metoprolol #DVT prophylaxis: on lovenox Disposition: will benefit from placement. Case management on board. Family wants him to go back to TCU. Charges/Coding Visit Charges Inpatient E&M: 50840 Subs Hosp L2
--- NOTE | 2024-05-01 15:21 | PCM.PN.REN ---
Subjective Subjective Follow-up on hyponatremia, chronic, without recent changes. Daughter is at bedside and believes that his confusion is related to chronic hyponatremia that he has. Patient himself is oriented to himself and place, got a little confused about timing which is not surprising. He is talkative, no seizure activity, no recent syncopal episodes, no decreased sensorium Objective Data Objective Data Vital Signs: Vital Signs Temp Pulse Resp BP Pulse Ox O2 Del Method 97.8 F 70 18 119/58 L 98 Room Air 05/01/24 11:09 05/01/24 11:17 05/01/24 11:09 05/01/24 11:09 05/01/24 11:09 05/01/24 11:09 Oxygen Delivery Method Room Air Weight: 64.2 kg Body Mass Index (BMI) 20.9 Intake & Output: Intake and Output for Last 24 Hours 04/29/24 04/30/24 05/01/24 23:59 23:59 23:59 Intake Total 240 / 240 1000 / 1350 710 / 710 Output Total 2049 / 2049 1250 / 1550 550 / 550 Balance -1810 / -1810 -250 / -200 160 / 160 Lab / Micro Data Attestation: I reviewed the patient's lab results. 05/01/24 04:50 05/01/24 04:50 Labs: Laboratory Results - last 24 hr 05/01/24 04:50: WBC 7.1, RBC 4.01 L, Hgb 12.3 L, Hct 35.9 L, MCV 89.5, MCH 30.7, MCHC 34.3, RDW Std Deviation 46.9 H, RDW Coeff of Chaim 14.3, Plt Count 245, MPV 10.2, Sodium 129 L, Potassium 4.3, Chloride 97 L, Carbon Dioxide 29.0, Anion Gap 3 L, BUN 21 H, Creatinine 1.06, Estim Creat Clear Calc 44.58, Est GFR (MDRD) Af Amer 85, Est GFR (MDRD) Non-Af 70, BUN/Creatinine Ratio 19.8, Glucose 94, Calcium 8.9, Magnesium 1.7 Micro: Microbiology 04/27/24 21:08 Mucosa - Nose SARS-CoV-2, Influenza & RSV (PCR) - Final Physical Exam Const alert, no apparent distress and average body habitus General Appearance: well developed Orientation / Consciousness: oriented to person and oriented to place Nutritional Appearance: thin HEENT normocephalic Head and Scalp: atraumatic Mouth: dry mucous membranes Neck no lymphadenopathy Resp no use of accessory muscles Cardio regular rate GI non-tender Auscultation: normoactive bowel sounds Skin no rashes or lesions noted Neuro Sensorium / Orientation: awake and alert Psych cooperative Assessment & Plan Assessment/Plan (1) Hyponatremia: PLAN: This is euvolemic hyponatremia, with urine studies consistent with mild SIADH. His sodium level is stable and I do not believe he has got any symptoms that could be attributed to hyponatremia of this degree with no sudden changes for more than a year. That what was all verbalized to his daughter. I suppose I can add salt tablets to fluid restriction to make it even better, but I doubt that we will take care of his confusion
[2024-05-01] MEDS: LORazepam 0.5 MG Tablet PO (20:29)
[2024-05-01] MEDS: Acetaminophen 325 MG Tablet 650 MG PO (20:29)
[2024-05-01] MEDS: amLODIPine 2.5 MG Tablet PO (20:43)
[2024-05-01] MEDS: Atorvastatin Calcium 40 MG Tablet PO (20:43)
[2024-05-02] VITALS (8 sets, daily range): BP systolic 107–169; BP diastolic 59–72; PULSE 51–75; RESP 16–18; TEMP 36.1–36.7; O2SAT 95–99
[2024-05-02] MEDS: Nystatin Powder 15gm Bottle 1 APPLIC TOPICAL ×2 (06:31→19:36)
[2024-05-02 08:15] LABS: Absolute Lymphocyte Count 1.08 X10^3/uL (0.83-4.51); Absolute Neutrophil Count 4.7 X10^3/uL (2.0-7.7); Basophil# 0.03 X10^3/uL; Basophil% 0.4 % (0-1); Eosinophil# 0.42 X10^3/uL; Eosinophils% 6.1 % (0-5); Hematocrit 34.2 % (40-54); Hemoglobin 11.9 g/dL (13.0-16.5); Lymphocyte # 1.08 X10^3/ul (0.83-4.51); Lymphocyte % 15.6 % (19-41); Mean Corp Hgb Conc 34.8 g/dL (32-36); Mean Corpuscular Hgb 30.3 pg (27.0-32.0); Mean Platelet Vol. 9.8 fl (6.2-12.0); Monocyte# 0.72 X10^3/uL; Monocyte% 10.4 % (0-10); NRBC Flagged by Analyzer 0 % (0-5); Neutrophil # 4.65 X10^3/uL (2.7-7.7); Neutrophil % 67.1 % (47-70); Platelet Count 235 K/mm3 (150-450); RBC Distribution Width CV 13.8 % (11.6-14.6); RBC Distribution Width SD 44.2 fl (35.1-43.9); Red Blood Count 3.93 M/mm3 (4.6-6.2); White Blood Count 6.9 K/mm3 (4.4-11.0)
[2024-05-02] MEDS: Enoxaparin 40 MG/0.4 ML Syringe SC (08:46)
[2024-05-02] MEDS: Cholecalciferol (Vit D3) 125 MCG CAPSULE (5,000 UNITS) PO (08:46)
[2024-05-02] MEDS: Sodium Chloride 1 GM Tablet PO ×2 (08:46→19:35)
[2024-05-02] MEDS: amLODIPine 5 MG Tablet PO (08:46)
[2024-05-02 08:47] LABS: Anion Gap 7 (5-15); BUN 20 mg/dL (7-18); BUN/Creat Ratio 22.1 RATIO (10-20); Calcium,Total 8.6 mg/dL (8.5-10.1); Chloride 98 mmol/L (98-107); EST Glomerular Filtration Rate 85 mL/min (>60); Est Glom Filt Rate - Afr Amer 102 mL/min (>60); Estimated Creatinine Clearance 52.51 ml/min; Glucose 111 mg/dL (74-106); Potassium 3.9 mmol/L (3.5-5.1); Sodium Level 130 mmol/L (136-145)
[2024-05-02] MEDS: Clopidogrel Bisulfate 75 MG Tablet PO (08:47)
[2024-05-02] MEDS: Omega-3 Acid Ethyl Esters 1 GM Capsule PO (08:47)
[2024-05-02] MEDS: Magnesium Chloride 64 MG Delay Rel.Tablet 128 MG PO (08:47)
[2024-05-02] MEDS: Tamsulosin HCl 0.4 MG Capsule PO (08:47)
[2024-05-02] MEDS: Metoprolol Tartrate 50 MG Tablet PO (08:47)
--- NOTE | 2024-05-02 12:51 | PN_ITS ---
Subjective Subjective Patient seen and examined. His daughter was by his bedside. He was more awake and communicative today. He did know who his daughter was and he had no complaints. He has remained hemodynamically stable. Family still waiting to talk to neurology. Objective Data Objective Data Vital Signs: Vital Signs Temp Pulse Resp BP Pulse Ox O2 Del Method 97.5 F L 61 18 140/63 H 98 Room Air 05/02/24 08:30 05/02/24 08:47 05/02/24 08:30 05/02/24 08:30 05/02/24 08:30 05/02/24 08:30 Oxygen Delivery Method Room Air Weight: 141 lb 8.588 oz Body Mass Index (BMI) 20.9 Intake & Output: Intake and Output for Last 24 Hours 04/30/24 05/01/24 05/02/24 23:59 23:59 23:59 Intake Total 1000 / 1350 760 / 760 Output Total 1250 / 1550 550 / 1150 600 / 600 Balance -250 / -200 210 / -390 -600 / -600 Lab / Micro Data 05/02/24 08:04 05/02/24 08:04 Labs: Laboratory Results - last 24 hr 05/02/24 08:04: WBC 6.9, RBC 3.93 L, Hgb 11.9 L, Hct 34.2 L, MCV 87.0, MCH 30.3, MCHC 34.8, RDW Std Deviation 44.2 H, RDW Coeff of Chaim 13.8, Plt Count 235, MPV 9.8, Immature Gran % (Auto) 0.400, Neut % (Auto) 67.1, Lymph % (Auto) 15.6 L, M colton % (Auto) 10.4 H, Eos % (Auto) 6.1 H, Baso % (Auto) 0.4, Absolute Neuts (auto) 4.7, Absolute Lymphs (auto) 1.08, Nucleated RBC % 0, Sodium 130 L, Potassium 3.9, Chloride 98, Carbon Dioxide 25.0, Anion Gap 7, BUN 20 H, Creatinine 0.90, Estim Creat Clear Calc 52.51, Est GFR (MDRD) Af Amer 102, Est GFR (MDRD) Non-Af 85, BUN/Creatinine Ratio 22.1 H, Glucose 111 H, Calcium 8.6 Micro: Microbiology 04/27/24 21:08 Mucosa - Nose SARS-CoV-2, Influenza & RSV (PCR) - Final Physical Exam Const alert Orientation / Consciousness: lethargic HEENT normocephalic and head/scalp atraumatic Eyes EOMs intact bilaterally Eyes Narrative: No icterus. Unable to evaluate pupils nor external ocular muscles as patient does not cooperate with exam. Neck no lymphadenopathy and supple Lymph Lymphatic: no lymphadenopathy noted Resp normal respiratory effort, normal air movement, no retractions, no use of accessory muscles and clear to auscultation bilaterally Cardio regular rate, regular rhythm, S1 normal heart sound, S2 normal heart sound and no murmurs GI normal to inspection, nondistended, normoactive bowel sounds, soft to palpation, non-tender and non-distended Extremity normal to inspection, normal capillary refill, no clubbing, cyanosis or edema and no calf tenderness General Extremity: no tenderness to palpation of joints or extremities Skin General Skin Exam: no breakdown Neuro Neuro Narrative: very frail and weak. Motor Exam: general weakness Assessment & Plan Assessment/Plan (1) Altered mental status: (2) Hyponatremia: PLAN: Plan #Acute encephalopathy * Concerns for possible nonepileptic seizure versus metabolic encephalopathy. He was also hyponatremic at 125 but this has improved and is now 129 today * Neurology on board. * He had EEG which showed no evidence of his seizure. MRI of the brain showed old right cerebral infarcts and chronic involutional and white matter changes, and no evidence of acute infarct * patient is much more alert and communicative today * family to speak to neurology today. Dr Thierry Menezes did confirm that he had spoken to patient's daughter today. 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 * Patient on fluid restriction of 1200 cc per 24 hours. * Sodium is 130 today. * Nephrology on board. * # History of CVA with residual right upper extremity weakness: On Plavix and statin. PT OT on board. #BPH with lower obstructive urinary symptoms: On Flomax History of abdominal aortic aneurysm: Stable #Anemia: Stable. Transfuse if hemoglobin is less than 7 #Anxiety: On Ativan as needed #Hypertension: on amlodipine and metoprolol #DVT prophylaxis: on lovenox Disposition: Awaiting placement. Case management on board. Family wants him to go back to TCU. Charges/Coding Visit Charges Inpatient E&M: 46030 Subs Hosp L2
--- NOTE | 2024-05-02 14:30 | NURSING ---
Patient went unresponsive in chair and vomited. PRE SALES ARCHITECT called. See paper documentation
--- NOTE | 2024-05-02 14:42 | EKG12_ITS ---
Test Reason : SYNCOPE Blood Pressure : / mmHG Vent. Rate : 052 BPM Atrial Rate : 052 BPM P-R Int : 194 ms QRS Dur : 088 ms QT Int : 438 ms P-R-T Axes : 048 -13 064 degrees QTc Int : 407 ms Sinus bradycardia Otherwise normal ECG When compared with ECG of 27-APR-2024 21:06, No significant change was found Confirmed by DARLENE BENITEZ, SVETLANA ([id number]), assistant production editor BELEN AMAYA ([id number]) on 05/06/2024 2:24:52 PM Referred By: ANGE Confirmed By:SUZANNE COLON MD
--- NOTE | 2024-05-02 14:50 | CHAPLAIN ---
Type of Pastoral Visit ___ Initial Visit _x__ Follow-up Visit ___ On-call Visit ___ General Patient Visit ___ Spiritual Assessment ___ Family Conference ___ Bereavement ___ Rapid Response ___ Code Blue ___ Other (describe below) Pastoral Care Referral From ___ Patient _x__ Family ___ Nurse ___ Physician ___ Leather Seasoner ___ Radiology Tech ___ Other (describe below) Sacrament/Intervention _x__ Active listening ___ Anointing ___ Mosque ___ Bereavement ___ Communion ___ Kimberly exploration ___ _x__ Life review _x__ Prayer ___ Reconciliation ___ Sacrament of Sick _x__ Supportive presence ___ Wedding ___ Other (describe below) Pastoral Comments patient is sitting up in the chair and has daughter and granddaughter in the room with him; pt remembers this junior account manager and has some clarity of thought including knowing that his is also in the hospital; however patient continues to have difficulty remembering details and the conversation takes turns by things on his mind at the moment and then fleeting; pt is slow to speak but keeps on engaging in the conversation that he creates; pt is welcoming of prayer and support
[2024-05-02 14:51] LABS: Bedside Glucose 155 mg/dL (74-106)
[2024-05-02] MEDS: 0.9% Normal Saline (500mL Bag) 500 ML 999 ML IV (15:06)
[2024-05-02] MEDS: 0.9% Saline Lock 10 ML Syringe IV (15:07)
--- NOTE | 2024-05-02 15:18 | CASEMGMT ---
Rapid response was called for patient. Patient's granddaughter was in the hallway and patient's daughter was in the room. Eventually patient's daughter came out of the room. SW introduced self and role at [facility]. SW provided emotional support. Patient recovered and family was able to return to patient's room. Marta RAMIREZ
[2024-05-02] MEDS: 0.9% Normal Saline (1000mL) 1,000 ML 125 ML IV ×2 (15:40→23:36)
[2024-05-02] MEDS: Fludrocortisone Acetate 0.1 MG Tablet PO (15:53)
[2024-05-02] MEDS: Atorvastatin Calcium 40 MG Tablet PO (19:35)
[2024-05-02] MEDS: amLODIPine 2.5 MG Tablet PO (19:35)
[2024-05-03 05:30] VITALS: BP 151/65; PULSE 67; RESP 16; TEMP 36.2; O2SAT 99
[2024-05-03 06:10] LABS: Absolute Lymphocyte Count 1.38 X10^3/uL (0.83-4.51); Absolute Neutrophil Count 4.6 X10^3/uL (2.0-7.7); Basophil# 0.03 X10^3/uL; Basophil% 0.4 % (0-1); Eosinophil# 0.45 X10^3/uL; Eosinophils% 6.2 % (0-5); Hematocrit 34.3 % (40-54); Hemoglobin 11.6 g/dL (13.0-16.5); Lymphocyte # 1.38 X10^3/ul (0.83-4.51); Lymphocyte % 18.9 % (19-41); Mean Corp Hgb Conc 33.8 g/dL (32-36); Mean Corpuscular Hgb 30.3 pg (27.0-32.0); Mean Corpuscular Volume 89.6 fL (80-94); Mean Platelet Vol. 10.2 fl (6.2-12.0); NRBC Flagged by Analyzer 0 % (0-5); Neutrophil # 4.62 X10^3/uL (2.7-7.7); Neutrophil % 63.4 % (47-70); Platelet Count 237 K/mm3 (150-450); RBC Distribution Width SD 46.2 fl (35.1-43.9); Red Blood Count 3.83 M/mm3 (4.6-6.2); White Blood Count 7.3 K/mm3 (4.4-11.0)
[2024-05-03 06:45] LABS: Anion Gap 5 (5-15); BUN 22 mg/dL (7-18); BUN/Creat Ratio 23.6 RATIO (10-20); Calcium,Total 8.5 mg/dL (8.5-10.1); Chloride 101 mmol/L (98-107); Creatinine, Serum 0.93 mg/dL (0.70-1.30); EST Glomerular Filtration Rate 81 mL/min (>60); Est Glom Filt Rate - Afr Amer 98 mL/min (>60); Estimated Creatinine Clearance 50.82 ml/min; Glucose 111 mg/dL (74-106); Potassium 3.9 mmol/L (3.5-5.1); Sodium Level 132 mmol/L (136-145)
[2024-05-03 10:27] VITALS: BP 153/73; PULSE 79; RESP 16; TEMP 36.6; O2SAT 98
[2024-05-03] MEDS: Fludrocortisone Acetate 0.1 MG Tablet PO (10:33)
[2024-05-03] MEDS: Enoxaparin 40 MG/0.4 ML Syringe SC (10:33)
[2024-05-03] MEDS: Tamsulosin HCl 0.4 MG Capsule PO (10:33)
[2024-05-03] MEDS: Omega-3 Acid Ethyl Esters 1 GM Capsule PO (10:33)
[2024-05-03] MEDS: Magnesium Chloride 64 MG Delay Rel.Tablet 128 MG PO (10:34)
[2024-05-03] MEDS: Nystatin Powder 15gm Bottle 1 APPLIC TOPICAL (10:34)
[2024-05-03] MEDS: Clopidogrel Bisulfate 75 MG Tablet PO (10:35)
[2024-05-03] MEDS: amLODIPine 5 MG Tablet PO (10:35)
[2024-05-03] MEDS: Sodium Chloride 1 GM Tablet PO (10:35)
[2024-05-03] MEDS: Cholecalciferol (Vit D3) 125 MCG CAPSULE (5,000 UNITS) PO (10:35)
--- NOTE | 2024-05-03 10:51 | CASEMGMT ---
Patient was approved by insurance to return to TCU. Physician will send patient today. SW spoke with patient's daughter and she was aware. SW gave her somewhat of a timeline. Plan: d/c to [facility] TCU under skilled level of care. Marta RAMIREZ
--- NOTE | 2024-05-03 12:18 | TREXTCAR_ITS ---
Diet Diet Order/Speech Therapy: 04/28/24 00:40 Diet: Cardiac - Heart Healthy Food consistency:: Regular Liquid Consistency:: Regular/Thin Dietary Modifications:: Gluten Free Fluid restriction:: 1500 mL Routine Orders/Code Status Enema Type: Fleetz Enema Frequency: Daily PRN Suppository Type: Dulcolax 10mg Suppository Frequency: Daily PRN O2 Frequency: PRN Keep PO Greater than or Equal to (%): 90 Therapies Weight Bearing: Weight bearing as tolerated Physical Therapy: Eval and Treat Occupational Therapy: Eval and Treat Problem/Diagnosis (1) Altered mental status: Status: Acute Code(s): R41.82 - Altered mental status, unspecified (2) Hyponatremia: Status: Acute Code(s): E87.1 - Hypo-osmolality and hyponatremia Plan #Acute encephalopathy * Concerns for possible nonepileptic seizure versus metabolic encephalopathy. He was also hyponatremic at 125 but this has improved and is now 129 today * Neurology on board. * He had EEG which showed no evidence of his seizure. MRI of the brain showed old right cerebral infarcts and chronic involutional and white matter changes, and no evidence of acute infarct * patient is much more alert and communicative today * family to speak to neurology today. Dr Thierry Menezes did confirm that he had spoken to patient's daughter today. 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 * Patient on fluid restriction of 1200 cc per 24 hours. * Sodium is 130 today. * Nephrology on board. * # History of CVA with residual right upper extremity weakness: On Plavix and statin. PT OT on board. #BPH with lower obstructive urinary symptoms: On Flomax History of abdominal aortic aneurysm: Stable #Anemia: Stable. Transfuse if hemoglobin is less than 7 #Anxiety: On Ativan as needed #Hypertension: on amlodipine and metoprolol #DVT prophylaxis: on lovenox Disposition: Awaiting placement. Case management on board. Family wants him to go back to TCU. Allergies/Procedures Done in Hospital Allergies Food Allergies: Uncoded Adverse Reaction (Intermediate, Verified 04/21/24 11:49) Other Most veggies cause GI distress. no tomatoes or corn. gluten free Procedures: 2-D Echocardiogram Type of Care/Length of Stay Estimated LOS: Convalescent Care Less Than 30 days Type of Care Needed: Skilled Rehab Potential: Fair Prognosis: Fair Additional Orders/Day of Discharge Day of Discharge: 05/03/24 Dietary and Speech Recommendations Dietitian Recommendations/Changes: Continue Cardiac, gluten free diet with fluid restriction per MD to manage medical conditions. Discharge Plan Admission Admit Date/Time: 04/27/24 23:15 Primary Reason for Your Visit: syncope, orthostatic hypotension, hyponatremia Attending Provider: Felisa Mcclain Primary Care Provider: Kezia Lin Consulting Providers: Maday Davis; Vivi Spangler; Apryl Kelley; Robert Sanchez; Margarito Teague; Jadyn Curiel; CONNIE LEUNG; An Gamez; Jessica Green; Kevan Perez; Yajaira Rogel; Steven Javier; Mata Aguilar; Cameron Pascual Instructions Patient Instructions: Hyponatremia Ch Dc Additional Instructions / Restrictions: to continue with fluid restriction at 1200cc daily. To have twice weekly BMP at the very least in the SNF to monitor his sodium levels. Should keep legs elevated when seated to decrease the risk of orthostatic hypotension. To wear CHANTAL stockings to help with orthostatic hypotension. Discharge Orders/Prescriptions Prescriptions: New fludrocortisone 0.1 mg Tablet 0.1 mg PO BREAKFAST Qty: 30 1RF Continued cholecalciferol (vitamin D3) [Vitamin D3] 125 mcg (5,000 unit) tablet 5,000 unit PO DAILY amlodipine 5 mg Tablet 5 mg PO DAILY Qty: 45 0RF Rx Instructions: Take a whole tab in the AM and 1/2 tab at bedtime. magnesium chloride [Mag 64] 64 mg Tablet,Delayed Release (Dr/Ec) 128 mg PO DAILY Qty: 30 0RF atorvastatin 40 mg tablet 40 mg PO QHS Qty: 30 0RF tamsulosin 0.4 mg capsule 0.4 mg PO DAILY Qty: 30 0RF hydrocortisone 2.5 % ointment 1 applic topical DAILY PRN (Reason: itching) lorazepam 0.5 mg tablet 0.5 mg PO TID PRN (Reason: anxiety) Patient Comments: PT HASNT TAKEN YET, BUT WILL TAKE NEEDED clopidogrel [Plavix] 75 mg tablet 75 mg PO DAILY ALGUECAL capsule 2 cap PO DAILY [place]-3 350 mg-235 mg- 90 mg-597 mg capsule,delayed release(DR/EC) 1 cap PO DAILY enoxaparin 40 mg/0.4 mL syringe 40 mg subcut DAILY calamine phenolated Lotion 1 applic topical BID nystatin 100,000 unit/gram powder 1 applic topical BID Discontinued metoprolol tartrate 50 mg tablet 50 mg PO BID Qty: 60 0RF Referrals / Follow Up: Kezia Lin MD [Primary Care Provider] - Within 2 Weeks Mata Aguilar MD [Med Staff - Consulting] - Within 2 Weeks Disposition Disposition (needs filled in before D/C Order can be placed): Senior Living Facility
--- NOTE | 2024-05-03 12:20 | PCM.DC.SUM ---
Providers Date of Admission: 04/27/24 Date of Discharge: 05/03/24 Primary Care Physician: Dr. Kezia Lin MD Consultations 04/28/24 10:38 Consult: Tele-Neurology Routine Consulting Provider: [facility] Reason for Consult: Suspected nonepileptic seizures EMERGENT Consult: No Notified: Yes Date Notified: 04/28/24 Time Notified: 10:39 Method of Notification: Answering Service 04/29/24 07:24 Consult: Nephrology Routine Consulting Provider: Mata Aguilar Reason for Consult: hyponatremia EMERGENT Consult: No Notified: Yes Date Notified: 04/29/24 Time Notified: 07:24 Method of Notification: Answering Service Reason For Visit: SYNCOPE, HYPONATREMIA Diagnosis Discharge Diagnosis (1) Altered mental status: Status: Acute Code(s): R41.82 - Altered mental status, unspecified (2) Hyponatremia: Status: Acute Code(s): E87.1 - Hypo-osmolality and hyponatremia Plan #Acute encephalopathy Concerns for possible nonepileptic seizure versus metabolic encephalopathy. He was also hyponatremic at 125 but this has improved and is now 129 today Neurology on board. He had EEG which showed no evidence of his seizure. MRI of the brain showed old right cerebral infarcts and chronic involutional and white matter changes, and no evidence of acute infarct patient is much more alert and communicative today family to speak to neurology today. Dr Thierry Menezes did confirm that he had spoken to patient's daughter today. 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 Patient on fluid restriction of 1200 cc per 24 hours. Sodium is 130 today. Nephrology on board. # History of CVA with residual right upper extremity weakness: On Plavix and statin. PT OT on board. #BPH with lower obstructive urinary symptoms: On Flomax History of abdominal aortic aneurysm: Stable #Anemia: Stable. Transfuse if hemoglobin is less than 7 #Anxiety: On Ativan as needed #Hypertension: on amlodipine and metoprolol #DVT prophylaxis: on lovenox Disposition: Awaiting placement. Case management on board. Family wants him to go back to TCU. Medications at Discharge Home Medications cholecalciferol (vitamin D3) 125 mcg (5,000 unit) tablet (Vitamin D3) 5,000 unit PO DAILY SUPPLEMENT 04/06/23 amlodipine 5 mg tablet 5 mg PO DAILY blood pressure #45 tabs 04/19/23 atorvastatin 40 mg tablet 40 mg PO QHS CHOLESTEROL #30 tabs 04/19/23 magnesium chloride 64 mg (magnesium chloride) tablet,delayed release (Mag 64) 128 mg (2 x 64 mg) PO DAILY SUPPLEMENT #30 tabs 04/19/23 tamsulosin 0.4 mg capsule 0.4 mg PO DAILY TREAT ENLARGED PROSTRATE #30 caps 04/19/23 ALGUECAL 2 cap PO DAILY SUPPLEMENT 04/21/24 clopidogrel 75 mg tablet (Plavix) 75 mg PO DAILY HEART 04/21/24 hydrocortisone 2.5 % topical ointment 1 applic topical DAILY PRN itching 04/21/24 lorazepam 0.5 mg tablet 0.5 mg PO TID PRN anxiety 04/21/24 omega 3 350 mg-dha 235 mg-epa 90 mg-fish oil 597 mg capsule,delay rel ([place]-3) 1 cap PO DAILY SUPPLEMENT 04/21/24 calamine phenolated lotion 1 applic topical BID 04/27/24 enoxaparin 40 mg/0.4 mL subcutaneous syringe 40 mg subcut DAILY 04/27/24 nystatin 100,000 unit/gram topical powder 1 applic topical BID 04/27/24 fludrocortisone 0.1 mg tablet 0.1 mg PO BREAKFAST #30 tabs 05/03/24 Hospital Course Operations None Procedures 2-D Echocardiogram Summary of Care Provided Minutes Spent on Discharge: 65 Hospital Course: Patient is an 89-year-old male with a past medical history as outlined including a history of large right-sided MCA stroke was admitted through the ED on 04/27/2024 with a complaint of syncope. Patient was in the TCU and became unresponsive whilst there. He had had a similar episode the week before when he was visiting his and looked like he had a vasovagal syncope and had copious amounts of vomiting. At that time he was taken to the ED and found to be hyponatremic. He was admitted for couple of days and hydrated with IV fluids. Sodium was 128 when he was discharged. He was discharged to the TCU and had syncope again and so was admitted to the hospital. CT of the brain showed no acute intracranial pathology and showed sequelae of the previous right MCA stroke. Labs done this time also showed evidence of hyponatremia with sodium going as low as 121. MRI of the brain showed no acute intracranial pathology and EEG also showed no evidence of his seizure. Neurology was consulted. Nephrology was also consulted and patient was hydrated with IV fluids. Sodium trended up slowly to a peak of 132. His baseline sodium was between 125-130. Patient did have another episode of syncope and orthostatics checked was positive. He was also noted to be mildly bradycardic. His metoprolol was therefore discontinued. He was started on fludrocortisone 0.1 mg daily and was also put on CHANTAL stockings. He was hydrated with IV fluids. Patient felt much better after that. Family was counseled extensively to make sure that his lower extremities were always elevated when he was sitting down. Nephrology also thought that his symptoms were due to SIADH so family was counseled about fluid restriction to thousand 200 cc daily. Patient remained stable and was discharged to TCU on 05/03/2024. He is to follow-up with his primary care doctor within 1 to 2 weeks. He is to have at least twice weekly BMP to check his sodium levels. Patient seen and examined. He had no active complaints and had an uneventful night. Review of systems otherwise negative. Labs and vitals reviewed. Home medication reviewed and reconciled. Physical Exam Const alert Constitutional Narrative: General Appearance: cooperative Orientation / Consciousness: awake HEENT normocephalic, head/scalp atraumatic and hearing grossly normal bilaterally Mouth: oral and palatal mucosa normal Eyes EOMs intact bilaterally Neck no lymphadenopathy and supple Neck Narrative: No thyromegaly Lymph Lymphatic: no lymphadenopathy noted Resp normal respiratory effort, normal air movement, no retractions, no use of accessory muscles and clear to auscultation bilaterally Cardio regular rate, regular rhythm, S1 normal heart sound, S2 normal heart sound and no murmurs GI normal to inspection, nondistended, normoactive bowel sounds, soft to palpation, non-tender and non-distended GI Narrative: Extremity normal to inspection, normal capillary refill, no clubbing, cyanosis or edema and no calf tenderness General Extremity: no tenderness to palpation of joints or extremities Skin no rashes or lesions noted General Skin Exam: no breakdown Neuro moves all extremities and no focal motor deficits Sensorium / Orientation: awake and alert Motor Exam: general weakness Weight / BMI Weight Weight: 141 lb 8.588 oz Body Mass Index (BMI) 20.9 ABG / Lab / Microbiology Data 05/03/24 05:36 08/09/24 05:36 Laboratory: Laboratory Results - last 24 hr 05/02/24 14:33: POC Glucose 155 H 05/03/24 05:36: WBC 7.3, RBC 3.83 L, Hgb 11.6 L, Hct 34.3 L, MCV 89.6, MCH 30.3, MCHC 33.8, RDW Std Deviation 46.2 H, RDW Coeff of Chaim 14.0, Plt Count 237, MPV 10.2, Immature Gran % (Auto) 0.100, Neut % (Auto) 63.4, Lymph % (Auto) 18.9 L, [place] % (Auto) 11.0 H, Eos % (Auto) 6.2 H, Baso % (Auto) 0.4, Absolute Neuts (auto) 4.6, Absolute Lymphs (auto) 1.38, Nucleated RBC % 0, Sodium 132 L, Potassium 3.9, Chloride 101, Carbon Dioxide 26.0, Anion Gap 5, BUN 22 H, Creatinine 0.93, Estim Creat Clear Calc 50.82, Est GFR (MDRD) Af Amer 98, Est GFR (MDRD) Non-Af 81, BUN/Creatinine Ratio 23.6 H, Glucose 111 H, Calcium 8.5 Microbiology: Microbiology 04/27/24 21:08 Mucosa - Nose SARS-CoV-2, Influenza & RSV (PCR) - Final D/C Instructions Discharge Diet: Low fat / Low cholesterol Discharge Activity: Return to Normal Activity Weight Bearing Status: Weight bearing as tolerated Call your doctor if you observe: Fever of 101 or Higher, Shortness of breath, Dizziness, Swelling in the ankles and Chest pain Meaningful Use Info Meaningful Use Meaningful Use Diagnoses (Choose all that apply): None applicable Ischemic Stroke Statin Dosing Therapy Reference: STATIN DOSE THERAPY REFERENCE: * Patients > 75 years receive moderate or high dose statin therapy. * Patients 75 years or YOUNGER should receive HIGH intensity statin dose unless contraindicated. You will be required to document reason for non-treatment if statin daily dose does not meet guidelines. HIGH DOSE STATIN THERAPY DAILY Atorvastatin > than or = to 40 mg Rosuvastatin > than or = to 20 mg Amlodipine + Atorvastatin > than or = to 2.5/40 mg Ezetimibe + Simvastatin 10/80 mg Simvastatin 80mg Discharge Plan Admission Admit Date/Time: 04/27/24 23:15 Primary Reason for Your Visit: syncope, orthostatic hypotension, hyponatremia Attending Provider: Felisa Mcclain Primary Care Provider: Kezia Lin Consulting Providers: Maday Davis; Vivi Spangler; Apryl Kelley; Robert Sanchez; Margarito Teague; Jadyn Curiel; CONNIE LEUNG; An Gamez; Jessica Green; Kevan Perez; Yajaira Rogel; Steven Javier; Mata Aguilar; Cameron Pascual Instructions Patient Instructions: Hyponatremia Ch Dc Additional Instructions / Restrictions: to continue with fluid restriction at 1200cc daily. To have twice weekly BMP at the very least in the SNF to monitor his sodium levels. Should keep legs elevated when seated to decrease the risk of orthostatic hypotension. To wear CHANTAL stockings to help with orthostatic hypotension. Discharge Orders/Prescriptions Prescriptions: New fludrocortisone 0.1 mg Tablet 0.1 mg PO BREAKFAST Qty: 30 1RF Continued cholecalciferol (vitamin D3) [Vitamin D3] 125 mcg (5,000 unit) tablet 5,000 unit PO DAILY amlodipine 5 mg Tablet 5 mg PO DAILY Qty: 45 0RF Rx Instructions: Take a whole tab in the AM and 1/2 tab at bedtime. magnesium chloride [Mag 64] 64 mg Tablet,Delayed Release (Dr/Ec) 128 mg PO DAILY Qty: 30 0RF atorvastatin 40 mg tablet 40 mg PO QHS Qty: 30 0RF tamsulosin 0.4 mg capsule 0.4 mg PO DAILY Qty: 30 0RF hydrocortisone 2.5 % ointment 1 applic topical DAILY PRN (Reason: itching) lorazepam 0.5 mg tablet 0.5 mg PO TID PRN (Reason: anxiety) Patient Comments: PT HASNT TAKEN YET, BUT WILL TAKE NEEDED clopidogrel [Plavix] 75 mg tablet 75 mg PO DAILY ALGUECAL capsule 2 cap PO DAILY [place]-3 350 mg-235 mg- 90 mg-597 mg capsule,delayed release(DR/EC) 1 cap PO DAILY enoxaparin 40 mg/0.4 mL syringe 40 mg subcut DAILY calamine phenolated Lotion 1 applic topical BID nystatin 100,000 unit/gram powder 1 applic topical BID Discontinued metoprolol tartrate 50 mg tablet 50 mg PO BID Qty: 60 0RF Referrals / Follow Up: Kezia Lin MD [Primary Care Provider] - Within 2 Weeks Mata Aguilar MD [Med Staff - Consulting] - Within 2 Weeks Disposition Disposition (needs filled in before D/C Order can be placed): Long Term Facility Charges/Coding Visit Charges Inpatient E&M: 70212 Disch Hosp >30min
[2024-05-03] MEDS: 0.9% Saline Lock 10 ML Syringe IV (12:28)
--- NOTE | 2024-05-03 13:38 | PN.RENAL_ITS ---
Subjective Subjective Follow-up on hyponatremia. He had another episode of syncope yesterday, decided to be orthostatic, had blood pressure medications adjusted and placed compression stockings. He remains quite confused, possibly ICU delirium. He is being transferred to the floor. Sodium is up to 132 Objective Data Objective Data Vital Signs: Vital Signs Temp Pulse Resp BP Pulse Ox O2 Del Method 97.8 F 79 16 153/73 H 98 Room Air 05/03/24 10:27 05/03/24 10:27 05/03/24 10:27 05/03/24 10:27 05/03/24 10:27 05/03/24 10:27 Oxygen Delivery Method Room Air Weight: 64.2 kg Body Mass Index (BMI) 20.9 Intake & Output: Intake and Output for Last 24 Hours 05/01/24 05/02/24 05/03/24 23:59 23:59 23:59 Intake Total 760 / 760 1611.67 / 1611.67 1250 / 1250 Output Total 550 / 1150 1300 / 1300 1600 / 1600 Balance 210 / -390 311.67 / 311.67 -350 / -350 Lab / Micro Data Attestation: I reviewed the patient's lab results. 05/03/24 05:36 05/03/24 05:36 Labs: Laboratory Results - last 24 hr 05/02/24 14:33: POC Glucose 155 H 05/03/24 05:36: WBC 7.3, RBC 3.83 L, Hgb 11.6 L, Hct 34.3 L, MCV 89.6, MCH 30.3, MCHC 33.8, RDW Std Deviation 46.2 H, RDW Coeff of Chaim 14.0, Plt Count 237, MPV 10.2, Immature Gran % (Auto) 0.100, Neut % (Auto) 63.4, Lymph % (Auto) 18.9 L, M [place] % (Auto) 11.0 H, Eos % (Auto) 6.2 H, Baso % (Auto) 0.4, Absolute Neuts (auto) 4.6, Absolute Lymphs (auto) 1.38, Nucleated RBC % 0, Sodium 132 L, Potassium 3.9, Chloride 101, Carbon Dioxide 26.0, Anion Gap 5, BUN 22 H, Creatinine 0.93, Estim Creat Clear Calc 50.82, Est GFR (MDRD) Af Amer 98, Est GFR (MDRD) Non-Af 81, BUN/Creatinine Ratio 23.6 H, Glucose 111 H, Calcium 8.5 Micro: Microbiology 04/27/24 21:08 Mucosa - Nose SARS-CoV-2, Influenza & RSV (PCR) - Final Physical Exam Const alert, no apparent distress and average body habitus General Appearance: well developed Orientation / Consciousness: oriented to person and oriented to place HEENT normocephalic Head and Scalp: atraumatic Neck no lymphadenopathy Resp no use of accessory muscles GI non-tender Auscultation: normoactive bowel sounds Neuro CN's II-XII intact bilaterally Psych cooperative Assessment & Plan Assessment/Plan (1) Hyponatremia: PLAN: Sodium is better, it is due to SIADH, doing well with salt tablets and fluid restriction. No seizures, mental status changes and not due to hyponatremia. He is hyponatremic this point is pretty mild. Okay to discharge from renal standpoint, continue with fluid restriction and salt tablets as an outpatient, monitoring sodium level twice a week.
--- NOTE | 2024-05-03 14:25 | NURSING ---
This RN called report to TCU and gave report to Christian CADET.
[2024-05-03 14:34] VITALS: BP 148/71; PULSE 85; RESP 16; TEMP 36.7; O2SAT 96
--- NOTE | 2024-05-03 15:01 | NURSING ---
Reviewed and agreed on charting with Raquel Peña RN
== END 2024-05-03 14:47 | disposition skilled nursing facility (03) | DRG 643 ==
LOC: ED 23:17 → PCU 23:57
PROVIDERS: Family Medicine; Internal Medicine; Emergency Provider Emergency Medicine; PCP Internal Medicine; Visit Provider Student in an Organized Health Care Education/Training Program
DX: E22.2 Syndrome of inappropriate secretion of antidiuretic hormone (principal); G93.41 Metabolic encephalopathy; I69.351 Hemiplegia and hemiparesis following cerebral infarction affecting right dominant side; N13.8 Other obstructive and reflux uropathy; F32.A Depression, unspecified; I10 Essential (primary) hypertension; D64.9 Anemia, unspecified; E78.5 Hyperlipidemia, unspecified; E55.9 Vitamin D deficiency, unspecified; F41.9 Anxiety disorder, unspecified; K90.0 Celiac disease; Z79.02 Long term (current) use of antithrombotics/antiplatelets; Z79.899 Other long term (current) drug therapy; Z63.79 Other stressful life events affecting family and household; N40.1 Benign prostatic hyperplasia with lower urinary tract symptoms
CPT/HCPCS: 36415; 70450; 70551; 71045; 74018; 80048; 80076; 81001; 82140; 82533; 82803; 82962; 83605; 83735; 83930; 83935; 84100; 84145; 84300; 84439; 84443; 85025; 85027; 87631; 92507; 92523; 93005; 95819; 97116; 97162; 97166; 97530; 97535; 97802; 99285; J7030; J7040; A4216

== ENCOUNTER 2024-05-03 15:18 | Inpatient (IN) | payer MEDICARE, SELFPAY ==
[2024-05-03 15:24] VITALS: BP 176/88; PULSE 85; RESP 20; TEMP 36.5; O2SAT 93; BMI 20.9
--- NOTE | 2024-05-03 15:42 | PCM.HP.STD ---
HPI - General General Date of Admission: 05/03/24 Date of Service: 05/03/24 Chief Complaint: Here for rehabilitation. HPI Narrative 04/27/2024 SERGO HEADINGS, is a 89 Male who presents to [facility] ED, TCU resident. Syncope, eyes rolled up, vomiting. Sodium 125. 04/27/2024 Admit [facility]. CT brain showed previous massive stroke. Order MRI brain, EEG. Fluid restriction, normal saline IV for hyponatremia. 04/28/2024 EEG, MRI brain, teleneurology for acute delirium. Fluid restriction for hyponatremia. 04/28/2024 Neurology recommends MRI brain, EEG, correct sodium. 04/29/2024 Fluid restriction ineffective. Sodium chloride tabs, Nephrology for hyponatremia. Nephrology noted SIADH, fluid restriction. MRI brain showed old right cerebral infarcts. 04/30/2024 Lethargic, minimally responsive. Ativan 2mg iv given overnight for seizure. Sodium 131. EEG negative for seizure, consider transfer for continuous video EEG. 05/01/2024 Alert, talking, confused. Sodium 129. 05/02/2024 More awake, talking, family waiting to talk with neurology. Sodium 130. HAND CUTTER unresponsive, vomiting. Orthostatics positive, stop Metoprolol 2/2 bradycardia. Compression stockings, normal saline 500cc iv x 1 bolus, Fludrocortisone 0.1mg added. 05/03/2024 Confused, sodium 132. Salt tablets, fluid restriction for SIADH, hyponatremia. 05/03/2024 Admit to TCU with debility, here for rehabilitation, strengthening, prior to discharge home with . [facility] Medical History BPH (benign prostatic hyperplasia) Hyperlipidemia Internal hemorrhoids Diverticulosis Celiac disease Carotid stenosis, bilateral Non-smoker AAA (abdominal aortic aneurysm) Hypertension Stroke/cerebrovascular accident Home Medications ?Medication ?Instructions ?Recorded ?Last Taken ?Type cholecalciferol (vitamin D3) 125 5,000 unit PO DAILY SUPPLEMENT 04/06/23 05/03/24 10:35 History mcg (5,000 unit) tablet (Vitamin D3) atorvastatin 40 mg tablet 40 mg PO QHS CHOLESTEROL #30 tabs 04/19/23 05/02/24 17:40 Rx magnesium chloride 64 mg 128 mg (2 x 64 mg) PO DAILY 04/19/23 05/03/24 10:35 Rx (magnesium chloride) SUPPLEMENT #30 tabs tablet,delayed release (Mag 64) tamsulosin 0.4 mg capsule 0.4 mg PO DAILY TREAT ENLARGED 04/19/23 05/03/24 10:35 Rx PROSTRATE #30 caps ALGUECAL 2 cap PO DAILY SUPPLEMENT 04/21/24 Unknown History clopidogrel 75 mg tablet (Plavix) 75 mg PO DAILY HEART 04/21/24 05/03/24 10:35 History hydrocortisone 2.5 % topical 1 applic topical DAILY PRN itching 04/21/24 Unknown History ointment lorazepam 0.5 mg tablet 0.5 mg PO TID PRN anxiety 04/21/24 05/01/24 20:30 History omega 3 350 mg-dha 235 mg-epa 90 1 cap PO DAILY SUPPLEMENT 04/21/24 05/03/24 10:30 History mg-fish oil 597 mg capsule,delay rel ([place]-3) calamine phenolated lotion 1 applic topical BID Itching 04/27/24 Unknown History enoxaparin 40 mg/0.4 mL 40 mg subcut DAILY Blood thinner 04/27/24 Unknown History subcutaneous syringe nystatin 100,000 unit/gram topical 1 applic topical BID redness 04/27/24 05/03/24 10:35 History powder amlodipine 2.5 mg tablet 2.5 mg PO QHS Heart 05/03/24 05/02/24 17:49 History amlodipine 5 mg tablet 5 mg PO DAILY blood pressure 05/03/24 Unknown History fludrocortisone 0.1 mg tablet 0.1 mg PO BREAKFAST Steroid #30 05/03/24 05/03/24 10:30 Rx tabs Allergy/AdvReac Type Severity Reaction Status Date / Time Food Allergies: Uncoded AdvReac Intermediate Other Verified 04/21/24 11:49 Family History Father CVA (cerebral vascular accident) Sister Lupus (systemic lupus erythematosus) Brother Diabetes Brother Diabetes Surgical History History of excision of lesion History of excision of lesion H/O abdominal aortic aneurysm repair Social History household members: spouse housing: other details: Private one-story home with no steps. 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 pets and animals: Yes Smoking Status: Never smoker alcohol intake: never substance use type: does not use ROS Constitutional Constitutional: Denies chills, fever(s) or weight gain ENT HEENT: Denies headache(s), nasal congestion or nasal discharge Cardiovascular Cardiovascular: Denies chest pain or palpitations Respiratory/Chest Respiratory/Chest: Denies cough, excessive phlegm production or shortness of breath with exertion Gastrointestinal Gastrointestinal: Denies abdominal pain, nausea or vomiting Genitourinary Genitourinary: Denies dysuria Musculoskeletal Musculoskeletal: Denies joint pain or joint swelling Integumentary Integumentary: Denies rash or wounds Neurologic Neurologic: Denies focal weakness, numbness or tingling Psychiatric Psychiatric: Denies anxiety, auditory hallucinations, depression, homicidal ideation or suicidal ideation Vital Signs Vital Signs Vital Signs: 05/03/24 15:24 Temperature 97.7 F L Temperature Source Oral Pulse Rate 85 Respiratory Rate 20 H Blood Pressure 176/88 H Blood Pressure Mean 117 Blood Pressure Source Monitor Blood Pressure Position Semi-Fowlers Blood Pressure Location Left Arm Pulse Ox 93 Oxygen Delivery Method Room Air Weight Weight: 64.455 kg Body Mass Index (BMI) 20.9 Physical Exam Const alert General Appearance: cooperative HEENT normocephalic Eyes PERRL and EOMs intact bilaterally Neck supple, no JVD and no carotid bruits Resp normal respiratory effort, normal air movement and clear to auscultation bilaterally Cardio regular rate and regular rhythm GI normal to inspection, nondistended, normoactive bowel sounds, non-tender and non-distended Extremity normal capillary refill General Extremity: Negative for edema Skin no rashes or lesions noted General Skin Exam: no breakdown Psych affect normal Appearance: appropriate Assessment & Plan Assessment/Plan (1) Debility: (2) Syncope: (3) Acute delirium: (4) Hyponatremia: (5) Essential (primary) hypertension: (6) Hyperlipidemia: QUALIFIERS: Hyperlipidemia type: unspecified Qualified Code(s): E78.5 - Hyperlipidemia, unspecified (7) Vitamin D deficiency: (8) Stroke/cerebrovascular accident: QUALIFIERS: CVA mechanism: unspecified Qualified Code(s): I63.9 - Cerebral infarction, unspecified (9) Panic disorder: (10) Hypomagnesemia: (11) BPH (benign prostatic hyperplasia): PLAN: Plan 89 year old male with below past medical history hospitalized for syncope 2/2 orthostatic hypotension, complicated by encephalopathy, hyponatremia, admitted to TCU with debility, here for rehabilitation, strengthening, prior to discharge home with . Debility - PT/OT/ST. Pain - monitor. Bowel - senna/colace 2 tablets bid, Dulcolax 10mg pr daily prn, Magnesium citrate 300ml po x 1 prn. Adult immunization - Administer pneumonia vaccine, covid vaccine, flu vaccine as appropriate. DVT prophylaxis - Lovenox 40mg sc daily. Hypertension - Amlodipine 5mg daily, 2.5mg qhs. Hyperlipidemia - Atorvastatin 40mg qhs. Stroke - Plavix 75mg daily. Orthostatic hypotension - Fludrocortisone 0.1mg qam. Rash - HC 2.5% topical daily prn. Panic disorder - Lorazepam 0.5mg tid prn. Hypomagnesemia - Magnesium chloride 128mg daily. Skin irritation - Calmoseptine topical bid. Tinea Corporis - Nystatin powder topical bid. SIADH - Sodium chloride 1gm bid, 1500mL fluid restriction. BPH - Tamsulosin 0.4mg daily.
--- NOTE | 2024-05-03 16:23 | NURSING ---
Per verbal order of Dr. Chapa give HS dose of Amlodipine now due to elevated blood pressure 171/88.
[2024-05-03] MEDS: LORazepam 0.5 MG Tablet PO ×2 (16:31→21:03)
[2024-05-03] MEDS: amLODIPine 2.5 MG Tablet PO (16:42)
[2024-05-03] MEDS: Atorvastatin Calcium 40 MG Tablet PO (21:04)
[2024-05-03] MEDS: Nystatin Powder 15gm Bottle 1 APPLIC TOPICAL (21:04)
[2024-05-03] MEDS: Senna/Docusate Sodium 1 Tablet 2 TABLET PO (21:04)
[2024-05-03] MEDS: Sodium Chloride 1 GM Tablet PO (21:04)
[2024-05-03] MEDS: Menthol/Lanolin/Calamine/Znox 113 GM Tube 1 APPLIC TOPICAL (21:12)
--- NOTE | 2024-05-03 23:05 | NURSING ---
Family spoke with this nurse and stated pt was becoming anxious/restless and becoming agitated stating he was going home and attempting to self transfer out of bed. Pt had received PRN Ativan 0.5mg on the previous shift for the same behavior. This nurse accompanied by RN assisted pt to bathroom x2 assist using walker and returned back to bed. Multiple interventions attempted: warm blanket, toileting, 1:1. PRN Ativan 0.5mg admin per order along with scheduled HS meds. Pt denied further needs and has been resting in bed with no s/sx of anxiety/agitation at this time. Personal alarm in place and functioning and room cam on.
--- NOTE | 2024-05-04 02:01 | NURSING ---
Addendum entered by Imelda Phillips 05/04/24 06:56: Dr. Chapa updated via backline to non-injury fall; new order received to increase frequency of Ativan 0.5mg to Q4H PRN. phlebotomist supervisor/instructor was on unit during fall and aware. Pt remained at nurses station for 1:1 throughout shift. Original Note: This nurse was responding to personal alarm sounding when pt was observed on the floor with his back up against the bed in a sitting position. No injuries observed upon immediate assessment and pt unable to state what he was attempting to do with self transferring. Pt was resistant to assist to chair and stated I'm falling, I'm falling; staff assisted x4 using gait belt to recliner chair with pad alarm in place and functioning. Vitals taken: 162/85, HR: 86, SpO2: 99% RA, Resp: 16, T: 97.9 temporal. Pt unable to follow direction per baseline and is A&Ox1 to self only. No c/o or s/sx of pain observed and no visible injuries noted at this time. Pt is currently at nurses station for safety and resting in recliner chair.
[2024-05-04] MEDS: LORazepam 0.5 MG Tablet PO (05:52)
[2024-05-04 06:01] LABS: Absolute Lymphocyte Count 1.38 X10^3/uL (0.83-4.51); Absolute Neutrophil Count 6.2 X10^3/uL (2.0-7.7); Basophil# 0.03 X10^3/uL; Basophil% 0.3 % (0-1); Eosinophil# 0.33 X10^3/uL; Eosinophils% 3.7 % (0-5); Hemoglobin 11.9 g/dL (13.0-16.5); Lymphocyte # 1.38 X10^3/ul (0.83-4.51); Lymphocyte % 15.4 % (19-41); Mean Corpuscular Hgb 30.7 pg (27.0-32.0); Mean Corpuscular Volume 87.6 fL (80-94); Mean Platelet Vol. 9.7 fl (6.2-12.0); Monocyte% 11.1 % (0-10); NRBC Flagged by Analyzer 0 % (0-5); Neutrophil # 6.21 X10^3/uL (2.7-7.7); Neutrophil % 69.3 % (47-70); Platelet Count 240 K/mm3 (150-450); RBC Distribution Width SD 45.1 fl (35.1-43.9); Red Blood Count 3.88 M/mm3 (4.6-6.2)
[2024-05-04 06:55] LABS: Anion Gap 8 (5-15); BUN 16 mg/dL (7-18); BUN/Creat Ratio 18.2 RATIO (10-20); Calcium,Total 8.7 mg/dL (8.5-10.1); Chloride 100 mmol/L (98-107); Creatinine, Serum 0.88 mg/dL (0.70-1.30); EST Glomerular Filtration Rate 87 mL/min (>60); Est Glom Filt Rate - Afr Amer 106 mL/min (>60); Estimated Creatinine Clearance 53.92 ml/min; Glucose 122 mg/dL (74-106); Potassium 3.6 mmol/L (3.5-5.1); Sodium Level 133 mmol/L (136-145)
[2024-05-04] MEDS: Menthol/Lanolin/Calamine/Znox 113 GM Tube 1 APPLIC TOPICAL ×2 (08:46→22:47)
[2024-05-04] MEDS: Tamsulosin HCl 0.4 MG Capsule PO (08:47)
[2024-05-04] MEDS: Fludrocortisone Acetate 0.1 MG Tablet PO (08:47)
[2024-05-04] MEDS: Enoxaparin 40 MG/0.4 ML Syringe SC (08:47)
[2024-05-04] MEDS: Nystatin Powder 15gm Bottle 1 APPLIC TOPICAL ×2 (08:47→22:47)
[2024-05-04] MEDS: Magnesium Chloride 64 MG Delay Rel.Tablet 128 MG PO (08:47)
[2024-05-04] MEDS: Senna/Docusate Sodium 1 Tablet 2 TABLET PO ×2 (08:47→22:48)
[2024-05-04] MEDS: Clopidogrel Bisulfate 75 MG Tablet PO (08:47)
[2024-05-04] MEDS: Sodium Chloride 1 GM Tablet PO ×2 (08:47→22:48)
[2024-05-04] MEDS: amLODIPine 5 MG Tablet PO (08:48)
[2024-05-04] MEDS: Ensure Plus High Protein 120 ML LIQUID PO ×2 (08:48→17:49)
[2024-05-04] MEDS: Tuberculin,Purif.prot.deriv. 50 TU/ML Vial 0.1 ML ID (09:37)
[2024-05-04 15:43] VITALS: BP 140/75; PULSE 89; RESP 16; TEMP 36.3; O2SAT 96
[2024-05-04] MEDS: amLODIPine 2.5 MG Tablet PO (22:47)
[2024-05-04] MEDS: Atorvastatin Calcium 40 MG Tablet PO (22:48)
[2024-05-04] MEDS: 0.9% Saline Lock 10 ML Syringe IV (22:53)
[2024-05-04 23:00] VITALS: BP 125/66; PULSE 82
[2024-05-05] MEDS: Ensure Plus High Protein 120 ML LIQUID PO ×3 (09:54→17:26)
[2024-05-05] MEDS: Senna/Docusate Sodium 1 Tablet 2 TABLET PO ×2 (09:55→21:04)
[2024-05-05] MEDS: Fludrocortisone Acetate 0.1 MG Tablet PO (09:55)
[2024-05-05] MEDS: Clopidogrel Bisulfate 75 MG Tablet PO (09:55)
[2024-05-05] MEDS: Sodium Chloride 1 GM Tablet PO ×2 (09:55→21:04)
[2024-05-05] MEDS: Enoxaparin 40 MG/0.4 ML Syringe SC (09:56)
[2024-05-05] MEDS: Tamsulosin HCl 0.4 MG Capsule PO (09:56)
[2024-05-05] MEDS: Magnesium Chloride 64 MG Delay Rel.Tablet 128 MG PO (09:56)
[2024-05-05] MEDS: amLODIPine 5 MG Tablet PO (09:58)
[2024-05-05 10:00] VITALS: RESP 16
[2024-05-05] MEDS: Nystatin Powder 15gm Bottle 1 APPLIC TOPICAL ×2 (10:05→21:13)
[2024-05-05] MEDS: Menthol/Lanolin/Calamine/Znox 113 GM Tube 1 APPLIC TOPICAL ×2 (10:05→21:13)
[2024-05-05 16:00] VITALS: BP 127/58; PULSE 90; RESP 16; TEMP 36.4; O2SAT 95
[2024-05-05] MEDS: amLODIPine 2.5 MG Tablet PO (21:04)
[2024-05-05] MEDS: Atorvastatin Calcium 40 MG Tablet PO (21:04)
[2024-05-05] MEDS: 0.9% Saline Lock 10 ML Syringe IV (21:12)
[2024-05-06 06:29] LABS: Anion Gap 6 (5-15); BUN 37 mg/dL (7-18); BUN/Creat Ratio 32.2 RATIO (10-20); Calcium,Total 8.7 mg/dL (8.5-10.1); Chloride 104 mmol/L (98-107); Creatinine, Serum 1.15 mg/dL (0.70-1.30); EST Glomerular Filtration Rate 64 mL/min (>60); Est Glom Filt Rate - Afr Amer 77 mL/min (>60); Estimated Creatinine Clearance 41.26 ml/min; Glucose 115 mg/dL (74-106); Potassium 3.2 mmol/L (3.5-5.1); Sodium Level 135 mmol/L (136-145)
[2024-05-06] MEDS: Fludrocortisone Acetate 0.1 MG Tablet PO (08:03)
[2024-05-06] MEDS: Potassium Chloride Oral Tablet 20 MEQ 40 MEQ PO (08:08)
[2024-05-06] MEDS: Ensure Plus High Protein 120 ML LIQUID PO ×3 (08:08→17:49)
[2024-05-06] MEDS: Potassium Chloride Oral Tablet 20 MEQ PO (09:18)
[2024-05-06] MEDS: Enoxaparin 40 MG/0.4 ML Syringe SC (09:18)
[2024-05-06] MEDS: Nystatin Powder 15gm Bottle 1 APPLIC TOPICAL ×2 (09:19→21:56)
[2024-05-06] MEDS: Menthol/Lanolin/Calamine/Znox 113 GM Tube 1 APPLIC TOPICAL ×2 (09:19→21:56)
[2024-05-06] MEDS: Senna/Docusate Sodium 1 Tablet 2 TABLET PO ×2 (09:20→21:57)
[2024-05-06] MEDS: Tamsulosin HCl 0.4 MG Capsule PO (09:20)
[2024-05-06] MEDS: Clopidogrel Bisulfate 75 MG Tablet PO (09:20)
[2024-05-06] MEDS: Sodium Chloride 1 GM Tablet PO ×2 (09:20→21:58)
[2024-05-06] MEDS: amLODIPine 5 MG Tablet PO (09:20)
[2024-05-06] MEDS: Magnesium Chloride 64 MG Delay Rel.Tablet 128 MG PO (09:20)
--- NOTE | 2024-05-06 12:25 | NURSING ---
Epic Interface Analyst Note; Activity Asst: Complete Sav is independent in his choice of daily activities with reminders. His is also a resident of the TCU and would like visits with her. He will read the paper, watch tv, visits with family and welcomes the pharmacy intake coordinator to visits as well. He has a smartphone he will use to talk w/family and friends. Staff will remind him of weekly activities and respect his right to say no.
[2024-05-06 14:02] VITALS: BP 126/65; PULSE 85; RESP 16; TEMP 36.4; O2SAT 95
[2024-05-06] MEDS: Atorvastatin Calcium 40 MG Tablet PO (21:57)
[2024-05-06] MEDS: amLODIPine 2.5 MG Tablet PO (21:58)
[2024-05-06] MEDS: 0.9% Saline Lock 10 ML Syringe IV (22:00)
[2024-05-07 06:56] LABS: Anion Gap 5 (5-15); BUN 32 mg/dL (7-18); BUN/Creat Ratio 29.4 RATIO (10-20); Calcium,Total 8.5 mg/dL (8.5-10.1); Chloride 109 mmol/L (98-107); Creatinine, Serum 1.09 mg/dL (0.70-1.30); EST Glomerular Filtration Rate 68 mL/min (>60); Est Glom Filt Rate - Afr Amer 82 mL/min (>60); Estimated Creatinine Clearance 43.53 ml/min; Glucose 101 mg/dL (74-106); Potassium 3.7 mmol/L (3.5-5.1); Sodium Level 139 mmol/L (136-145)
[2024-05-07] MEDS: Ensure Plus High Protein 120 ML LIQUID PO (08:32)
[2024-05-07] MEDS: Enoxaparin 40 MG/0.4 ML Syringe SC (08:33)
[2024-05-07] MEDS: Tamsulosin HCl 0.4 MG Capsule PO (08:33)
[2024-05-07] MEDS: Magnesium Chloride 64 MG Delay Rel.Tablet 128 MG PO (08:33)
[2024-05-07] MEDS: Fludrocortisone Acetate 0.1 MG Tablet PO (08:33)
[2024-05-07] MEDS: amLODIPine 5 MG Tablet PO (08:33)
[2024-05-07] MEDS: Senna/Docusate Sodium 1 Tablet 2 TABLET PO (08:33)
[2024-05-07] MEDS: Clopidogrel Bisulfate 75 MG Tablet PO (08:33)
[2024-05-07] MEDS: Potassium Chloride Oral Tablet 20 MEQ PO (08:33)
[2024-05-07] MEDS: Menthol/Lanolin/Calamine/Znox 113 GM Tube 1 APPLIC TOPICAL (08:34)
[2024-05-07] MEDS: Nystatin Powder 15gm Bottle 1 APPLIC TOPICAL (08:34)
[2024-05-07] MEDS: Sodium Chloride 1 GM Tablet PO (08:34)
[2024-05-07 10:58] VITALS: BP 122/62; PULSE 82
--- NOTE | 2024-05-07 12:59 | NURSING ---
Updated patient and granddaughter that staff member tested covid positive.
--- NOTE | 2024-05-07 15:19 | PCM.PN.DRR ---
Documented by User: Krystle Lopez 05/07/24 15:48 TCU RX Drug Regimen Review Subjective/Objective Subjective/Objective: Subjective: TCU Admission. 89 YOM presented to ER from TCU with syncope/vomiting. Hospitalized for syncope 2/2 orthostatic hypotension, complicated by encephalopathy, hyponatremia. Admitted to TCU with debility for strengthening and rehabilitation. Objective: Allergies Food Allergies: Uncoded Adverse Reaction (Intermediate, Verified 04/21/24 11:49) Other Most veggies cause GI distress. no tomatoes or corn. gluten free Current Medications Generic Name Dose Route Start Last Admin Trade Name Freq PRN Reason Stop Dose Admin Amlodipine Besylate 2.5 mg 05/03/24 22:00 05/06/24 21:58 Amlodipine 2.5 Mg Tablet PO 2.5 mg QHS VADIM Administration Protocol Amlodipine Besylate 5 mg 05/04/24 10:00 05/07/24 08:33 Amlodipine 5 Mg Tablet PO 5 mg DAILY VADIM Administration Protocol Atorvastatin Calcium 40 mg 05/03/24 22:00 05/06/24 21:57 Atorvastatin Calcium 40 Mg Tablet PO 40 mg QHS VADIM Administration Bisacodyl 10 mg 05/03/24 15:55 Bisacodyl 10 Mg Suppository RC DAILY PRN PRN Constipation Calamine/Phenol 1 applic 05/03/24 22:00 05/07/24 08:34 Menthol/Lanolin/Calamine/Znox 113 Gm Tube TOPICAL 1 applic BID VADIM Administration Protocol Clopidogrel Bisulfate 75 mg 05/04/24 10:00 05/07/24 08:33 Clopidogrel Bisulfate 75 Mg Tablet PO 75 mg DAILY VADIM Administration Enoxaparin Sodium 40 mg 05/04/24 10:00 05/07/24 08:33 Enoxaparin 40 Mg/0.4 Ml Syringe SC 40 mg DAILY VADIM Administration Fludrocortisone Acetate 0.1 mg 05/04/24 08:00 05/07/24 08:33 Fludrocortisone Acetate 0.1 Mg Tablet PO 0.1 mg BREAKFAST VADIM Administration Hydrocortisone 1 applic 05/03/24 15:59 Hydrocortisone 2.5% Ointment 20 Gm Tube TOPICAL DAILY PRN itching Protocol Lorazepam 0.5 mg 05/04/24 06:52 Lorazepam 0.5 Mg Tablet PO Q4H PRN PRN anxiety Magnesium Chloride 128 mg 05/04/24 10:00 05/07/24 08:33 Magnesium Chloride 64 Mg Delay Rel.Tablet PO 128 mg DAILY VADIM Administration Magnesium Citrate 300 ml 05/03/24 15:55 Magnesium Citrate 300 Ml PO X1 PRN Constipation Nystatin 1 applic 05/03/24 22:00 05/07/24 08:34 Nystatin Powder 15gm Bottle TOPICAL 1 applic BID VADIM Administration Protocol Potassium Chloride 20 meq 05/06/24 08:00 05/07/24 08:33 Potassium Chloride Oral Tablet 20 Meq PO 20 meq DAILYCM VADIM Administration Senna/Docusate Sodium 2 tablet 05/03/24 22:00 05/07/24 08:33 Senna/Docusate Sodium 1 Tablet PO 2 tablet BID VADIM Administration Sodium Chloride 10 - 40 ml 05/03/24 15:36 05/06/24 22:00 0.9% Saline Lock 10 Ml Syringe IV 10 ml UD PRN Administration SALINE FLUSH Sodium Chloride 10 - 40 ml 05/03/24 15:42 0.9% Saline Lock 10 Ml Syringe IV UD PRN SALINE FLUSH Sodium Chloride 1 gm 05/03/24 22:00 05/07/24 08:34 Sodium Chloride 1 Gm Tablet PO 1 gm BID VADIM Administration Tamsulosin HCl 0.4 mg 05/04/24 10:00 05/07/24 08:33 Tamsulosin Hcl 0.4 Mg Capsule PO 0.4 mg DAILY VADIM Administration Problem List (Updated 05/05/24 @ 00:01 by Minerva Montalvo) Vitamin D deficiency (Acute) BPH (benign prostatic hyperplasia) (Acute) Hypomagnesemia (Acute) Panic disorder (Acute) Acute delirium (Acute) Debility (Acute) Stroke/cerebrovascular accident (Acute) Vital Signs Temp Pulse Resp BP Pulse Ox O2 Del Method 97.5 F L 82 16 122/62 H 95 Room Air 05/06/24 14:02 05/07/24 10:58 05/06/24 14:02 05/07/24 10:58 05/06/24 14:02 05/07/24 10:00 Oxygen Delivery Method Room Air Weight: 64.455 kg Body Mass Index (BMI) 20.9 Sodium 139 mmol/L (136-145) 05/07/24 05:37 Potassium 3.7 mmol/L (3.5-5.1) 05/07/24 05:37 Chloride 109 mmol/L (98-107) H 05/07/24 05:37 Carbon Dioxide 25.0 mmol/L (21.0-32.0) 05/07/24 05:37 Anion Gap 5 (5-15) 05/07/24 05:37 BUN 32 mg/dL (7-18) H 05/07/24 05:37 Creatinine 1.09 mg/dL (0.70-1.30) 05/07/24 05:37 Est GFR (MDRD) Af Amer 82 mL/min (>60) 05/07/24 05:37 Est GFR (MDRD) Non-Af 68 mL/min (>60) 05/07/24 05:37 BUN/Creatinine Ratio 29.4 RATIO (10-20) H 05/07/24 05:37 Glucose 101 mg/dL (74-106) 05/07/24 05:37 Assessment/Plan: 1. Bowel: senna/docusate 2T PO BID, bisacodyl 10mg RC daily PRN constipation and magnesium citrate 300mL PO x1 PRN constipation. No PRN doses given. Please continue to monitor for constipation and PRN usage. Last documented bowel movement was 05/06. 2. DVT prophylaxis: enoxaparin 40mg SC daily. Please continue to monitor for S/S of bleeding/DVT, hemoglobin (last 11.9g/dL), platelets (last 240,000) and renal function (SCr 1.09mg/dL). 3. Hypertension: amlodipine 5mg PO daily and 2.5mg PO QHS. Please continue to monitor BP (last 122/62) and swelling. 4. Hyperlipidemia: atorvastatin 40mg PO QHS. Please consider ordering a lipid panel if clinically appropriate as the last panel is from 2016. Thanks. Please continue to monitor for muscle pain and LFTs (last 04/27/24). 5. Stroke: clopidogrel 75mg PO daily. Please continue to monitor for S/S of bleeding and hemoglobin (last 11.9g/dL). 6. Orthostatic hypotension: fludrocortisone 0.1mg PO QAM. Please continue to monitor for S/S of hypotension, BP and glucose (last 101mg/dL). 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 Please continue to monitor sodium (last 139mmol/L). 8. BPH: tamsulosin 0.4mg PO daily. Please continue to monitor for S/S of BPH and BP. 9. Rash/skin irritation/tinea corporis: HC 2.5% topical daily prn itching, Calmoseptine topical bid and Nystatin powder topical bid. Please continue to monitor. No doses of hydrocortisone given. 10. Hypomagnesemia: magnesium chloride 128mg PO daily. Please continue to monitor magnesium levels (last 1.7mg/dL 05/01/24). Assessment/Plan for indications treated with psychotropic medications: 1. Panic disorder: lorazepam 0.5mg PO Q4H PRN anxiety. No PRN doses given. GDR does not seem appropriate at this time as resident has not required a dose yet. Please continue to monitor for anxiety and PRN usage. Medical chart and medication regimen reviewed. The following medication irregularities or issues were identified: 1. Atorvastatin 40mg PO QHS. Please consider ordering a lipid panel if clinically appropriate as the last panel is from 2015. Thanks. Date Date of Note:: 05/07/24 Documented by User: Dr. Surya Chapa MD 05/07/24 16:09 TCU RX Drug Regimen Review Provider Comments Provider responsibility Provider Comments to Recommendations by Pharmacy: Agree
[2024-05-07 16:00] VITALS: BP 135/62; PULSE 89; RESP 17; TEMP 36.4; O2SAT 99
[2024-05-07] MEDS: LORazepam 0.5 MG Tablet PO (16:36)
[2024-05-07 16:42] VITALS: BMI 20.7
[2024-05-07 22:00] VITALS: BP 139/69; PULSE 84; O2SAT 95
--- NOTE | 2024-05-07 22:56 | NURSING ---
pt resting in the bed with eyes closed, will not open eyes when name is called. Dr. Chapa called and informed of pt behavior and unable to give hs medication, vs were stable:bp 139/69, ap 84, and sp02 was 95% on ra. hs medications held per Dr. Chapa
[2024-05-07 23:45] LABS: Cholesterol 73 mg/dL (200); High Density Lipoprotein 34 mg/dL; Triglycerides 27 mg/dL; Very Low Density Lipoprotein 5 mg/dL (5-40)
--- NOTE | 2024-05-08 10:11 | CASEMGMT ---
Social Work IDT met with patient, and dtr for care plan meeting. Discussed patient's progress in PT/OT/ST/SN. [facility] and continued stay is not guaranteed with each review. Discussed recommendations from IDT for SNF memory care unit. SW provided dtr printed list of SNFs with memory care units INN with insurance including quality and resource data via [employer] Guide. Dtr is aware of OOP cost. SW also educated and provided nonskilled HHC agencies to hire 24/7 care in the home. Dtr to notify this worker of plans. SW will continue to follow for DC planning. GUCCI HendrixW
[2024-05-08 11:13] VITALS: BP 138/67; PULSE 82; RESP 16; TEMP 36.7; O2SAT 92
[2024-05-08 11:37] LABS: Bedside Glucose 83 mg/dL (74-106)
--- NOTE | 2024-05-08 12:17 | NURSING ---
Patient remains unresponsive. Patient will grimace to sternal rub. Vital signs WNL. Family present and updated. SW discussing hospice with family. No new orders at this time.
[2024-05-08] MEDS: Enoxaparin 40 MG/0.4 ML Syringe SC (12:44)
[2024-05-08] MEDS: Menthol/Lanolin/Calamine/Znox 113 GM Tube 1 APPLIC TOPICAL (12:44)
[2024-05-08] MEDS: Nystatin Powder 15gm Bottle 1 APPLIC TOPICAL (12:45)
[2024-05-08] MEDS: LORazepam 0.5 MG Tablet PO (14:43)
--- NOTE | 2024-05-08 16:17 | CASEMGMT ---
Social Work ROSANA notified by nursing that pt is unresponsive since nightman. Nursing requesting a conversation with family on code status and pt/family wishes on possible interventions. Dr Chapa to speak to family this evening, but agreeable to this worker having this conversation prior. SW spoke with dtr to discuss pt's current condition and family's goals for pt's care. Sensitively broached topic of pt potentially being end-of-life and referring to hospice services, simply for comfort measures. Explained hospice has the skill-set and capabilities to better regional marketing manager pt's agitation and implement further comfort measures. SW educated that with the comfort measures and rest, pt may 'bounce back' and no longer have these unresponsive episodes. Or pt may enter end-of-life. SW educated to allowing pt's body to relax, rest, and recover from the hospital transfers, hospital treatment, hospital delirium, and therapy with hospice services. Educated to the options of home with hospice, but family needing to hire 24/7 caregivers at an OOP cost or SNF with hospice. Dtr and 's wishes are for pt to return home and have hope of pt being more alert and oriented once in home environment. Dtr is aware though, of pt's changes in condition from unresponsive to agitation, which may not be safe or suitable for pt to be at home. ROSANA offered to assist with all DC planning and provided a list of nonskilled [facility] agencies to contact. SW redirected dtr's focus to determining the goals of pt's care - either providing further treatment and intervention to current unresponsive state or to change pt's code status to DNR-CC. Dtr to speak with pt's and son and notify nursing or this worker shortly on decision. SW provided ongoing emotional support to dtr. -- Dtr approached this worker inquiring if code status is changed to DNR-CC, if pt could still receive IV fluids. SW confirmed, but if family elects hospice, hospice does not order IV fluids. Dtr expressed understanding and will follow up with family. -- Nursing notified this worker that pt arose and immediately began combative and agitated, was incontinent and required a full bed change and bed bath. When SW arrived to pt's room, dtr was in the hallway being comforted by staff members. SW provided emotional support to dtr. Dtr stated she would like pt changed to a DNR-CC. Family is still undecided on DC plan. SW educated to another potential option of [facility], to manage symptoms, then again, if pt becomes imminent with end-of-life, pt would remain in IPU. If pt's symptoms become managed and stabilized, pt then can DC home with hospice and caregivers. Again, explained pt may change condition and plans can stay fluid. Dtr expressed understanding and appreciative of assistance. is requesting to speak with during evening office hours. SW left written communication to . Dtr notified this worker she is beginning to contact nonskilled [facility] agencies for care in the home for pt. Once pt's DC plan is determined, pt's 's DC plan will be determined as well. ROSANA will continue to follow for DC planning assistance and support. GUCCI HendrixW
[2024-05-08] MEDS: 0.9% Normal Saline (1000mL) 1,000 ML 60 ML IV (17:54)
[2024-05-08] MEDS: 0.9% Saline Lock 10 ML Syringe IV (17:55)
[2024-05-08] MEDS: morphine (oral solution) 10MG/0.5ML Syringe 10 MG PO ×2 (18:28→22:18)
--- NOTE | 2024-05-08 20:45 | NURSING ---
1400: This nurse assisted two auto body detailer w/ care. Brief saturated w/ urine and incontinent of a moderate amount of liquid stool. All linens changed d/t linens feeling wet. Gown changed. When turning resident to the left side, resident continuously yells. Does not verbalize any concerns. All staff in room attempted to reassure and provide emotional support to resident without success. Face turns red and some vessels to forehead are slightly bulging. Clear some clear nasal drainage w/ a scant amount of blood. Positioned for comfort. Bed alarm in use. Room camera in use. Call light w/ in reach. Daughter updated on symptoms as she was able to hear the noise down the castro. Plan to medicate w/ Ativan. Will continue to monitor.
--- NOTE | 2024-05-08 20:50 | NURSING ---
1730: Dr. Chapa is on the unit. Spoke w/ daughter across the nurses station about resident's condition. Code status changed to DNRCC. New orders received for IV fluids and Morphine- refer to MAR.
--- NOTE | 2024-05-08 20:52 | NURSING ---
1830: Morphine given after medication verified and sent to the unit per pharmacy. Spouse and daughter are at bedside. Educated on desired and side effects of both Morphine and Ativan. Daughter verbalizes concerns that resident may sleep often. Informed daughter medications will promote rest to relieve sxs of pain, restlessness, anxiety, and agitation while promoting quality of life. Spouse thinks she may stay in room tonight and will notify staff later of her decision.
[2024-05-08] MEDS: Atorvastatin Calcium 40 MG Tablet PO (22:13)
[2024-05-08] MEDS: Sodium Chloride 1 GM Tablet PO (22:13)
[2024-05-08] MEDS: amLODIPine 2.5 MG Tablet PO (22:14)
[2024-05-08 22:26] VITALS: BP 147/80; PULSE 84
--- NOTE | 2024-05-09 09:54 | CASEMGMT ---
Social Work SW presented to pt's room and was visiting and holding hands with pt. pt was alert, cheerful, dressed, ate breakfast, and sitting up in his recliner chair. Pt had a major improvement from the previous two days. SW noted pt's improvement and pt stated, I didn't really come alive until this morning, and is agreeable to participate in therapy today. BIMS (05/09) and PHQ-2 () completed for MDS assessment. GUCCI Hendrix SCIENCE ANALYST
[2024-05-09 14:59] VITALS: BP 126/23; PULSE 88; RESP 14; TEMP 37.1; O2SAT 95
--- NOTE | 2024-05-09 15:17 | CASEMGMT ---
Addendum entered by Evelyn Vallejo 05/10/24 13:23: SW met with pt this morning and pt remained alert, calm and in a good mood. Pt was up in his chair, eating breakfast. SW will monitor and follow up with dtr on following . Original Note: Social Work Pt's dtr presented to this worker's office to discuss DC plans for pt. Dtr noting pt's drastic improvement today than prior days, and unsure of DC plans. SW discussed with dtr the changes pt's has made, the highs and lows of recent condition and abilities. SW educated again on hospice services and if pt responded well to morphine, that is the goal of hospice comfort care measures. SW provided emotional support to dtr and the conflict she is faced with on this decision. SW offered and dtr agreed, to monitor patient through the weekend to determine his condition. If pt returns to unresponsiveness or agitation, pt will be referred to [facility] hospice. If pt maintains alertness and being calm, pt will DC home with hospice. Dtr also met with [facility] to secure 24/7 care if pt returns home. Dtr appreciative of this worker's time, assistance and support. SW will continue to follow. GUCCI Hendrix
[2024-05-09 20:38] VITALS: BP 134/54; PULSE 78
[2024-05-09 20:50] VITALS: RESP 16
[2024-05-10 05:51] LABS: Absolute Lymphocyte Count 2.15 X10^3/uL (0.83-4.51); Absolute Neutrophil Count 2.8 X10^3/uL (2.0-7.7); Basophil# 0.04 X10^3/uL; Basophil% 0.6 % (0-1); Eosinophil# 0.54 X10^3/uL; Eosinophils% 8.7 % (0-5); Hematocrit 34.5 % (40-54); Hemoglobin 11.3 g/dL (13.0-16.5); Lymphocyte # 2.15 X10^3/ul (0.83-4.51); Lymphocyte % 34.5 % (19-41); Mean Corp Hgb Conc 32.8 g/dL (32-36); Mean Corpuscular Hgb 30.3 pg (27.0-32.0); Mean Corpuscular Volume 92.5 fL (80-94); Mean Platelet Vol. 10.4 fl (6.2-12.0); Monocyte# 0.71 X10^3/uL; Monocyte% 11.4 % (0-10); NRBC Flagged by Analyzer 0 % (0-5); Neutrophil % 44.8 % (47-70); Platelet Count 255 K/mm3 (150-450); RBC Distribution Width CV 14.4 % (11.6-14.6); Red Blood Count 3.73 M/mm3 (4.6-6.2); White Blood Count 6.2 K/mm3 (4.4-11.0)
[2024-05-10 06:09] LABS: Anion Gap 5 (5-15); BUN 26 mg/dL (7-18); Calcium,Total 8.8 mg/dL (8.5-10.1); Chloride 105 mmol/L (98-107); Creatinine, Serum 1.13 mg/dL (0.70-1.30); EST Glomerular Filtration Rate 65 mL/min (>60); Est Glom Filt Rate - Afr Amer 79 mL/min (>60); Glucose 96 mg/dL (74-106); Potassium 3.9 mmol/L (3.5-5.1); Sodium Level 136 mmol/L (136-145)
--- NOTE | 2024-05-10 08:40 | NURSING ---
Stone Repairer Note; MDS for 05/10/2024 Complete
[2024-05-10 16:43] VITALS: BP 158/83; PULSE 95; RESP 17; TEMP 36.8; O2SAT 97
[2024-05-10 20:10] VITALS: BP 131/79; PULSE 96
--- NOTE | 2024-05-10 23:10 | NURSING ---
Addendum entered by Carmela Aviles 05/11/24 01:41: For reference, Boston Headingnathaniel is the son who called inquiring about medications Original Note: Around 1999. pt displaying signs of agitation this shift, voicing desire to go home with son. This nurse sat with patient and listened to his concerns and explained that he was not able to go home at this time. HS medications administered as well as PRN Ativan for anxiety and PRN morphine for pain. Son returned to bedside after stepping out to make a call and video-called family to have them help encourage him to continue participating with care. During 2199 rounds, pt noted to be resting in bed with pressure alarm on and call light within reach. 2314, pt's son called and was concerned about PRN morphine that was given to patient. He state he was worried the morphine is making him feel too good and causing the patient to think he doesn't need to be in this facility any longer. [place] requested Morphine only be given if nothing else is helping with patient's pain. This nurse reassured son that pain medications are only given if medically indicated, but that his request would be communicated to staff.
[2024-05-11 09:12] VITALS: BP 128/71; PULSE 87; RESP 16; TEMP 36.8; O2SAT 97
[2024-05-11 21:30] VITALS: BP 124/64; PULSE 78
[2024-05-12 08:11] VITALS: BP 144/76; PULSE 69; RESP 16; TEMP 36.6; O2SAT 95
[2024-05-12 10:00] VITALS: PULSE 73; RESP 16; O2SAT 95
[2024-05-12 20:01] VITALS: BP 137/70; PULSE 73
[2024-05-13 06:45] VITALS: RESP 16
[2024-05-13 08:44] VITALS: BP 135/74; PULSE 74
--- NOTE | 2024-05-13 10:06 | CASEMGMT ---
Addendum entered by Evelyn Vallejo 05/13/24 12:19: Hospice is meeting with dtr on unit at 1730. Original Note: Social Work SW phoned dtr to follow up on DC planning and pt's weekend. Dtr stated she and pt's visited over the weekend and pt was doing well. Dtr confirmed son's request with limiting Ativan and Morphine, unless necessary. Dtr stated she is meeting with [facility] this afternoon to sign paperwork and will inquire about SOC, to set DC date. Dtr remains agreeable to hospice, but requesting pt is not told he will be on hospice or mention the term to him, as family is concerned about how he would react, i.e. give up. SW agreed and will notify staff and hospice agency. SW to place referral to [facility] today to sign paperwork as well. Dtr to update this worker on DC date, but within the next couple days. SW also noted for dtr to consider DC transport. SW will continue to follow. Secure email referral sent to Suzie at [facility]. GUCCI Hendrix
[2024-05-13 11:47] VITALS: BP 156/73; PULSE 81; RESP 14; TEMP 36.7; O2SAT 94
--- NOTE | 2024-05-13 14:54 | DS.PCM_ITS ---
Providers Date of Admission: 05/03/24 Primary Care Physician: Dr. Kezia Lin MD Consultations 05/13/24 10:02 Consult: Hospice / Palliative Care Routine Consulting Provider: [facility] Reason for Consult: HOSPICE - terminal restlessness EMERGENT Consult: No MD Notified: Yes Date Notified: 05/13/24 Time Notified: 10:02 Method of Notification: Text Reason For Visit: SYNCOPE/HYPONATREMIA Diagnosis Discharge Diagnosis (1) Debility: Status: Acute Code(s): R53.81 - Other malaise (2) Syncope: Status: Inactive Code(s): R55 - Syncope and collapse (3) Acute delirium: Status: Acute Code(s): R41.0 - Disorientation, unspecified (4) Hyponatremia: Status: Inactive Code(s): E87.1 - Hypo-osmolality and hyponatremia (5) Essential (primary) hypertension: Status: Inactive Code(s): I10 - Essential (primary) hypertension (6) Hyperlipidemia: Status: Inactive Code(s): E78.5 - Hyperlipidemia, unspecified Qualifiers: Hyperlipidemia type: unspecified Qualified Code(s): E78.5 - Hyperlipidemia, unspecified (7) Vitamin D deficiency: Status: Acute Code(s): E55.9 - Vitamin D deficiency, unspecified (8) Stroke/cerebrovascular accident: Status: Acute Code(s): I63.9 - Cerebral infarction, unspecified Qualifiers: CVA mechanism: unspecified Qualified Code(s): I63.9 - Cerebral infarction, unspecified (9) Panic disorder: Status: Acute Code(s): F41.0 - Panic disorder [episodic paroxysmal anxiety] (10) Hypomagnesemia: Status: Acute Code(s): E83.42 - Hypomagnesemia (11) BPH (benign prostatic hyperplasia): Status: Acute Code(s): N40.0 - Benign prostatic hyperplasia without lower urinary tract symptoms Plan 89 year old male with below past medical history hospitalized for syncope 2/2 orthostatic hypotension, complicated by encephalopathy, hyponatremia, admitted to TCU with debility, here for rehabilitation, strengthening, prior to discharge home with . * Debility - PT/OT/ST. * Pain - monitor. * Bowel - senna/colace 2 tablets bid, Dulcolax 10mg pr daily prn, Magnesium citrate 300ml po x 1 prn. * Adult immunization - Administer pneumonia vaccine, covid vaccine, flu vaccine as appropriate. * DVT prophylaxis - Lovenox 40mg sc daily. * Hypertension - Amlodipine 5mg daily, 2.5mg qhs. * Hyperlipidemia - Atorvastatin 40mg qhs. * Stroke - Plavix 75mg daily. * Orthostatic hypotension - Fludrocortisone 0.1mg qam. * Rash - HC 2.5% topical daily prn. * Panic disorder - Lorazepam 0.5mg tid prn. * Hypomagnesemia - Magnesium chloride 128mg daily. * Skin irritation - Calmoseptine topical bid. * Tinea Corporis - Nystatin powder topical bid. * SIADH - Sodium chloride 1gm bid, 1500mL fluid restriction. * BPH - Tamsulosin 0.4mg daily. Hospital Course Operations None Procedures None Summary of Care Provided Minutes Spent on Discharge: 35 Hospital Course: 89 year old male with below past medical history hospitalized for syncope 2/2 orthostatic hypotension, complicated by encephalopathy, hyponatremia, admitted to TCU with debility, here for rehabilitation, strengthening, prior to discharge home with . Discharge home with to daughter's house 05/15/2024, 17/04 caregivers, [facility]. Physical Exam Const alert General Appearance: cooperative HEENT normocephalic Eyes PERRL and EOMs intact bilaterally Neck supple, no JVD and no carotid bruits Resp normal respiratory effort, normal air movement and clear to auscultation bilaterally Cardio regular rate and regular rhythm GI normal to inspection, nondistended, normoactive bowel sounds, non-tender and non-distended Extremity normal capillary refill General Extremity: Negative for edema Skin no rashes or lesions noted General Skin Exam: no breakdown Psych affect normal Appearance: appropriate Weight / BMI Weight Weight: 63.548 kg Body Mass Index (BMI) 20.7 ABG / Lab / Microbiology Data 05/10/24 05:05 05/10/24 05:05 Microbiology: Microbiology 05/09/24 05:18 Nasal Secretion SARS-CoV-2 Antigen (Rapid) - Final D/C Instructions Discharge Diet: No restrictions Discharge Activity: Return to Normal Activity, May Shower and Use Walker Weight Bearing Status: Weight bearing as tolerated Call your doctor if you observe: Fever of 101 or Higher, Inability to urinate, Inability to have a bowel movement, Shortness of breath, Dizziness, Fainting spells, Swelling in the ankles, Chest pain and Uncontrolled pain Additional Instructions: Discharge home with to daughter's house 05/15/2024, 17/04 caregivers, [facility]. Please Follow Up With: Mata Aguilar MD When: Cancel. Meaningful Use Info Meaningful Use Meaningful Use Diagnoses (Choose all that apply): None applicable Ischemic Stroke Statin Dosing Therapy Reference: STATIN DOSE THERAPY REFERENCE: * Patients > 75 years receive moderate or high dose statin therapy. * Patients 75 years or YOUNGER should receive HIGH intensity statin dose unless contraindicated. You will be required to document reason for non-treatment if statin daily dose does not meet guidelines. HIGH DOSE STATIN THERAPY DAILY Atorvastatin > than or = to 40 mg Rosuvastatin > than or = to 20 mg Amlodipine + Atorvastatin > than or = to 2.5/40 mg Ezetimibe + Simvastatin 10/80 mg Simvastatin 80mg Discharge Plan Admission Admit Date/Time: 05/03/24 15:18 Primary Reason for Your Visit: Debility. Attending Provider: Surya Chapa Chi Primary Care Provider: Kezia Lin Consulting Providers: Cameron Walsh; Gayathri Cortes; Natasha Peraza; Katie Arvizu JOINER APPRENTICE Instructions Additional Instructions / Restrictions: Discharge home with to daughter's house 05/15/2024, 17/04 caregivers, [facility]. Discharge Orders/Prescriptions Prescriptions: Discontinued cholecalciferol (vitamin D3) [Vitamin D3] 125 mcg (5,000 unit) tablet 5,000 unit PO DAILY magnesium chloride [Mag 64] 64 mg Tablet,Delayed Release (Dr/Ec) 128 mg PO DAILY Qty: 30 0RF atorvastatin 40 mg tablet 40 mg PO QHS Qty: 30 0RF tamsulosin 0.4 mg capsule 0.4 mg PO DAILY Qty: 30 0RF amlodipine 2.5 mg tablet 2.5 mg PO QHS amlodipine 5 mg Tablet 5 mg PO DAILY hydrocortisone 2.5 % ointment 1 applic topical DAILY PRN (Reason: itching) lorazepam 0.5 mg tablet 0.5 mg PO TID PRN (Reason: anxiety) Patient Comments: PT HASNT TAKEN YET, BUT WILL TAKE NEEDED clopidogrel [Plavix] 75 mg tablet 75 mg PO DAILY ALGUECAL capsule 2 cap PO DAILY [place]-3 350 mg-235 mg- 90 mg-597 mg capsule,delayed release(DR/EC) 1 cap PO DAILY enoxaparin 40 mg/0.4 mL syringe 40 mg subcut DAILY calamine phenolated Lotion 1 applic topical BID nystatin 100,000 unit/gram powder 1 applic topical BID fludrocortisone 0.1 mg Tablet 0.1 mg PO BREAKFAST Qty: 30 1RF Referrals / Follow Up: Kezia Lin MD [Primary Care Provider] - Disposition Disposition (needs filled in before D/C Order can be placed): Hospice in Home
--- NOTE | 2024-05-13 15:58 | CASEMGMT ---
Social Work SW received call from dtr stating she has spoken with [facility] and they can start with services on 05/15, and family is agreeable to that DC date for pt. IDT agreeable. SW to update hospice for their SOC as well. SW inquired about transportation and dtr stated her brother will transport pt home. Dtr expressed much appreciation for this worker's ongoing assistance with pt. SW updated IDT and [facility]. Plan: DC 05/15 home with and 17/04 caregivers, [facility] GUCCI HendrixW
--- NOTE | 2024-05-13 18:04 | NURSING ---
This Nurse last rounded on pt aroud 1720 pt asleep but responded to nurse when asked if he needed anything pt said no and thanked this nurse. Pt's and Daughter arrived around 1745 unable to arouse pt. Pt Vitals 163/74 Pulse 81 Sp02 93% RA RR 20 BS 97. Pt does have eye movement when responding to pain. Per family does not want extreme measure taken at this time. Dr. Chapa updated and No [facility] Hospice in lobby meeting with Daughter at this time.
[2024-05-13 18:06] LABS: Bedside Glucose 97 mg/dL (74-106)
[2024-05-13 22:05] VITALS: BP 146/62; PULSE 71
[2024-05-14 06:15] VITALS: PULSE 78; O2SAT 93
[2024-05-14 09:47] VITALS: BP 131/66; PULSE 87; RESP 17; TEMP 36.4; O2SAT 96
--- NOTE | 2024-05-14 14:52 | CHAPLAIN ---
Type of Pastoral Visit ___ Initial Visit _x__ Follow-up Visit ___ On-call Visit ___ General Patient Visit ___ Spiritual Assessment ___ Family Conference ___ Bereavement ___ Rapid Response ___ Code Blue ___ Other (describe below) Pastoral Care Referral From _x__ Patient _x__ Family ___ Nurse ___ Physician ___ Production Solderer ___ Student Finance Specialist ___ Other (describe below) Sacrament/Intervention __x_ Active listening ___ Anointing ___ Quaker ___ Bereavement ___ Communion ___ Kimberly exploration ___ ___ Life review _x__ Prayer ___ Reconciliation ___ Sacrament of Sick ___ Supportive presence ___ Wedding ___ Other (describe below) Pastoral Comments patient is to be discharged today; his and daughter are here now to pick him up; and have not been together in the home for a few weeks; both admit great kevin at what improvements have taken place and give thanks to God; both welcome a prayer for celebration at this time
[2024-05-14 14:58] VITALS: BP 133/66; PULSE 79; RESP 23; TEMP 37.1; O2SAT 94
--- NOTE | 2024-05-15 13:20 | MDS.RN ---
Information for the MDS was obtained from review of the clinical record, interview of resident, staff, and direct observation of resident?s care.
== END 2024-05-14 15:45 | disposition hospice, home (50) | DRG 312 ==
PROVIDERS: Admitting Provider Family Medicine Geriatric Medicine; PCP Internal Medicine; Visit Provider Family Medicine Geriatric Medicine
DX: I95.1 Orthostatic hypotension (principal); G93.40 Encephalopathy, unspecified; E22.2 Syndrome of inappropriate secretion of antidiuretic hormone; I10 Essential (primary) hypertension; E78.5 Hyperlipidemia, unspecified; E55.9 Vitamin D deficiency, unspecified; B35.4 Tinea corporis; N40.0 Benign prostatic hyperplasia without lower urinary tract symptoms; Z79.899 Other long term (current) drug therapy; Z79.02 Long term (current) use of antithrombotics/antiplatelets; Z79.01 Long term (current) use of anticoagulants; F41.0 Panic disorder [episodic paroxysmal anxiety]
CPT/HCPCS: 36415; 80048; 80061; 82962; 85025; 87811; 92507; 92523; 97110; 97116; 97129; 97162; 97166; 97530; 97535; 97802; J7030; A4216

== ENCOUNTER 2024-07-10 14:09 | Inpatient (IN) | payer MEDICARE, SELFPAY ==
[2024-07-10 14:10] VITALS: BP 155/76; PULSE 88; RESP 20; TEMP 36.6; O2SAT 96; BMI 24.0
--- NOTE | 2024-07-10 14:26 | EKG12_ITS ---
Test Reason : Blood Pressure : / mmHG Vent. Rate : 087 BPM Atrial Rate : 087 BPM P-R Int : 154 ms QRS Dur : 090 ms QT Int : 368 ms P-R-T Axes : 037 -40 068 degrees QTc Int : 442 ms Normal sinus rhythm Left axis deviation Abnormal ECG Confirmed by Raúl Smith ([id number]), loan expeditor BELEN AMAYA ([id number]) on 07/11/2024 10:39:01 AM Referred By: Confirmed By:Raúl Smith
--- NOTE | 2024-07-10 14:27 | ED.VIS.FALL ---
HPI HPI - Fall History of Present Illness Chief Complaint: Fall Detail of Chief Complaint: Patient has vascular dementia and is in hospice Informant: spouse/S.O. and family Occured/Mechanism Occurred: Today and Hours Mechanism/Context: Yes cannot recall fall Narrative: Patient has dementia. He is unable to tell me what happened. He denies pain. Usually ambulates: Without assistance Pain/Injury Location: Left hip per family. Per patient none Pain Location: none Maximum Severity: Moderate Worsened by: Logrolling and attempt to elevate leg off the bed Relieved by: Remaining still Associated Symptoms Associated Symptoms: Positive for Loss of function and Inability to ambulate; Negative for Parasthesias, Weakness or Loss of consciousness Narrative Narrative: Patient is a 89-year-old male who had a mechanical fall. He presented by EMS because of left hip pain which he localized to the inguinal area. He has vascular dementia. He does not know he is on hospice. He refuses all meds. Family puts his meds in his food. He is on Plavix due to stroke 1 year ago. Presently patient has no complaints and denies everything. Prior similar symptoms: No Recent Illness/Hospitalization: No PFSH PFSH Medical History Cognitive impairment Syncope Hyponatremia Altered mental status Essential (primary) hypertension BPH (benign prostatic hyperplasia) Hyperlipidemia Internal hemorrhoids Diverticulosis Celiac disease Carotid stenosis, bilateral Non-smoker AAA (abdominal aortic aneurysm) Hypertension Stroke/cerebrovascular accident Home Medications ?Medication ?Instructions ?Recorded ?Last Taken ?Type lorazepam 0.5 mg tablet 0.5 mg PO TID PRN anxiety #6 tabs 05/14/24 Unknown Rx Allergy/AdvReac Type Severity Reaction Status Date / Time Food Allergies: Uncoded AdvReac Intermediate Other Verified 07/10/24 14:10 Family History Father CVA (cerebral vascular accident) Sister Lupus (systemic lupus erythematosus) Brother Diabetes Brother Diabetes Surgical History History of excision of lesion History of excision of lesion H/O abdominal aortic aneurysm repair Social History household members: spouse housing: other details: Private one-story home with no steps. 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 pets and animals: Yes Smoking Status: Never smoker alcohol intake: never substance use type: does not use ROS ROS ED Review of Systems ROS Unobtainable: due to mental status EXAM Physical Exam Const Vital Signs: 07/10/24 14:10 07/10/24 14:40 Temperature 97.8 F Temperature Source Oral Pulse Rate 88 Respiratory Rate 20 H Respiratory Effort Normal Respiratory Depth Normal Respiratory Pattern Normal Blood Pressure 155/76 H Blood Pressure Mean 102 Pulse Ox 96 Oxygen Delivery Method Room Air Room Air Positive well nourished and well developed General Appearance ED: well developed and NAD HEENT Reports normocephalic HEENT Narrative: Ears normal. Teeth normal. atraumatic Eyes PERRL and EOMs intact bilaterally Neck full ROM and no lymphadenopathy Resp normal respiratory effort, no retractions and clear to auscultation bilaterally Cardio regular rate, regular rhythm, S1 normal heart sound, S2 normal heart sound and no murmurs GI non-tender, non-distended and no masses GI Narrative: There is no pain to palpation of the pelvis. Auscultation: normoactive bowel sounds Palpation: soft Extremity Extremity Narrative: Patient has pain left inguinal area with logrolling of the leg or attempt to elevate the leg off the bed. There is a palpable DP pulse bilaterally. Neuro No oriented x3, CN's II-XII intact bilaterally, moves all extremities, no focal motor deficits and no sensory deficits noted [place] Coma Scale: document GCS findings Spontaneous Obeys Commands Confused 14 Sensorium / Orientation: alert Psych mental status grossly normal and thought process normal Skin Skin Narrative: There is no bruising, abrasion or laceration. MDM MDM MDM Narrative Medical decision making narrative: Clinically patient has a fractured left hip. He is in hospice. Per orthopedic literature since his life expectancy is greater than 6 weeks he would be a candidate for open reduction internal fixation. Appropriate x-rays were obtained to evaluate the hip fracture, chest x-ray preoperative clearance and appropriate labs. He was typed and screened. History & Record Review Discussion w/independent historian: Family and Significant other Lab Data Labs: Laboratory Results - last 24 hr 07/10/24 14:35 WBC 10.1 RBC 4.62 Hgb 14.1 Hct 42.8 MCV 92.6 MCH 30.5 MCHC 32.9 RDW Std Deviation 48.4 H RDW Coeff of Chaim 14.3 Plt Count 201 MPV 10.4 Immature Gran % (Auto) 0.300 Neut % (Auto) 74.6 H Lymph % (Auto) 11.7 L Maries % (Auto) 10.6 H Eos % (Auto) 2.4 Baso % (Auto) 0.4 Absolute Neuts (auto) 7.6 Absolute Lymphs (auto) 1.18 Nucleated RBC % 0 Sodium 139 Potassium 4.1 Chloride 104 Carbon Dioxide 30.0 Anion Gap 5 BUN 22 H Creatinine 1.25 Estim Creat Clear Calc 41.63 Est GFR (MDRD) Af Amer 70 Est GFR (MDRD) Non-Af 58 L BUN/Creatinine Ratio 17.6 Glucose 111 H Calcium 9.5 Radiography Chest X-Ray - ED: 1 View (Preoperative chest x-ray was independently reviewed by me as well at 1525.), Read by ED Physician (2 view x-ray of the left hip reveals a nondisplaced intertrochanteric fracture. The film was otherwise negative for acute findings.), Unchanged, Heart, Mediastinum, Bony Structures, No Acute Disease and Chronic Changes EKG Initial EKG: Attestation: I personally reviewed and interpreted this EKG as follows: Interpretation: Sinus Rhythm (Rate is 87. [place] to the left otherwise the EKG is normal. CO interval is 154 ms per cures duration 90 ms. QT duration 368 ms.) Discharge Plan Triage Chief Complaint: Fall ED Provider: Dajuan Alex Dx/Rx/DC Orders Clinical Impression: Closed intertrochanteric fracture of left hip, Generalized weakness, Coronary artery disease, Vascular dementia, Injury due to fall Prescriptions: No Action lorazepam 0.5 mg tablet 0.5 mg PO TID PRN (Reason: anxiety) Qty: 6 0RF Primary Care Provider: Kezia Lin Referrals: Kezia Lin MD [Primary Care Provider] - Print Language: Irish Disposition Disposition: Acute Care Hospital [facility]
--- NOTE | 2024-07-10 14:46 | ED.RN ---
PTS ARRIVED BY EMS. DAUGHTER AND ARRIVED WITH THEM. AND DAUGHTER INSIST WE NOT SAY ANYTHING ABOUT HOSPICE THE PT DOES NOT LIKE IT PT FELL AND WAS ON THE FLOOR FOR APROX 4 HOURS.
[2024-07-10 14:48] LABS: Absolute Lymphocyte Count 1.18 X10^3/uL (0.83-4.51); Absolute Neutrophil Count 7.6 X10^3/uL (2.0-7.7); Basophil# 0.04 X10^3/uL; Basophil% 0.4 % (0-1); Eosinophil# 0.24 X10^3/uL; Eosinophils% 2.4 % (0-5); Hematocrit 42.8 % (40-54); Hemoglobin 14.1 g/dL (13.0-16.5); Lymphocyte # 1.18 X10^3/ul (0.83-4.51); Lymphocyte % 11.7 % (19-41); Mean Corp Hgb Conc 32.9 g/dL (32-36); Mean Corpuscular Hgb 30.5 pg (27.0-32.0); Mean Corpuscular Volume 92.6 fL (80-94); Mean Platelet Vol. 10.4 fl (6.2-12.0); Monocyte# 1.07 X10^3/uL; Monocyte% 10.6 % (0-10); NRBC Flagged by Analyzer 0 % (0-5); Neutrophil # 7.55 X10^3/uL (2.7-7.7); Neutrophil % 74.6 % (47-70); Platelet Count 201 K/mm3 (150-450); RBC Distribution Width CV 14.3 % (11.6-14.6); RBC Distribution Width SD 48.4 fl (35.1-43.9); Red Blood Count 4.62 M/mm3 (4.6-6.2); White Blood Count 10.1 K/mm3 (4.4-11.0)
[2024-07-10 15:01] LABS: Anion Gap 5 (5-15); BUN 22 mg/dL (7-18); BUN/Creat Ratio 17.6 RATIO (10-20); Calcium,Total 9.5 mg/dL (8.5-10.1); Chloride 104 mmol/L (98-107); Creatinine, Serum 1.25 mg/dL (0.70-1.30); EST Glomerular Filtration Rate 58 mL/min (>60); Est Glom Filt Rate - Afr Amer 70 mL/min (>60); Estimated Creatinine Clearance 41.63 ml/min; Glucose 111 mg/dL (74-106); Potassium 4.1 mmol/L (3.5-5.1); Sodium Level 139 mmol/L (136-145)
--- NOTE | 2024-07-10 15:25 | RAD_ITS ---
INDICATION: Trauma, fall, left hip pain EXAMINATION/TECHNIQUE: X-RAY - XR Hip Unilateral with Pelvis when performed; 2-3 Views COMPARISON: No relevant prior comparison study available FINDINGS: PELVIC BONES: No displaced fracture, destructive or sclerotic lesions. Note that overlapping bowel shadows may however obscure fine detail. Sacroiliac joints are unremarkable. No widening of the pubic symphysis. HIPS: Hip joint spaces well-maintained bilaterally. Nondisplaced intertrochanteric fracture left femur. SOFT TISSUES: Aortobiiliac stent graft present. RAD/HIP, UNI W/ Pelvis 2-3 Views IMPRESSION: Nondisplaced intertrochanteric fracture left femur. Electronically Signed: Ho Dawkins MD at 15:51 EDT ,
--- NOTE | 2024-07-10 15:25 | RAD_ITS ---
INDICATION: Preop EXAMINATION/TECHNIQUE: X-RAY - portable supine AP chest x-ray COMPARISON: 04/27/2024 FINDINGS: LINES/DEVICES: None. LUNGS: Prominent skin folds over the left hemithorax. No vascular congestion, consolidation or pleural effusion. MEDIASTINUM AND CARDIOVASCULAR STRUCTURES: Cardiac silhouette stable within normal limits. BONES AND SOFT TISSUES: No acute findings. RAD/Chest 1 View (Portable) IMPRESSION: No radiographic evidence of acute cardiopulmonary disease. Electronically Signed: Ho Dawkins MD at 15:53 EDT ,
[2024-07-10 16:06] VITALS: BP 142/65; PULSE 85; RESP 16; TEMP 36.3; O2SAT 96
[2024-07-10 16:10] VITALS: BP 147/66; PULSE 84; RESP 21; O2SAT 96
[2024-07-10] MEDS: LORazepam 2 MG/ML Syringe 0.5 MG IV (16:44)
--- NOTE | 2024-07-10 17:03 | PCM.HP.STD ---
HPI - General General Date of Admission: 07/10/24 Date of Service: 07/10/24 Chief Complaint: Fall resulting left intertrochanteric fracture HPI Narrative SERGO HEADINGS, is a 89 M was brought to ED after a fall. Patient could not stand up or walk after that. In the ED, patient does not complain of much pain. Patient has vascular dementia and he is home with hospice. Patient's family revoked the hospice. X-ray hip and pelvis shows nondisplaced intertrochanteric fracture left femur. In ED, vitals are reviewed and are in normal range for the age and medical conditions of the patient. ED physician notified Dr. Nicko Baldwin further surgery. [facility] Medical History Cognitive impairment Syncope Hyponatremia Altered mental status Essential (primary) hypertension BPH (benign prostatic hyperplasia) Hyperlipidemia Internal hemorrhoids Diverticulosis Celiac disease Carotid stenosis, bilateral Non-smoker AAA (abdominal aortic aneurysm) Hypertension Stroke/cerebrovascular accident Home Medications ?Medication ?Instructions ?Recorded ?Last Taken ?Type lorazepam 0.5 mg tablet 0.5 mg PO TID PRN anxiety #6 tabs 05/14/24 Unknown Rx amlodipine 5 mg tablet mg PO HYPERTENSION 07/10/24 Unknown History clopidogrel 75 mg tablet 75 mg PO DAILY ANTIPLATELET 07/10/24 Unknown History tamsulosin 0.4 mg capsule 0.4 mg PO DAILY BPH 07/10/24 Unknown History Allergy/AdvReac Type Severity Reaction Status Date / Time Food Allergies: Uncoded AdvReac Intermediate Other Verified 07/10/24 14:10 Family History Father CVA (cerebral vascular accident) Sister Lupus (systemic lupus erythematosus) Brother Diabetes Brother Diabetes Surgical History History of excision of lesion History of excision of lesion H/O abdominal aortic aneurysm repair Social History household members: spouse housing: other details: Private one-story home with no steps. 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 pets and animals: Yes Smoking Status: Never smoker alcohol intake: never substance use type: does not use ROS ROS Narrative 14 system ROS mainly gathered from patient's and daughter present in the ED Constitutional: Reports fatigue and weakness. No fever. HEENT: Reports systems reviewed and no addt'l complaints, except as documented Respiratory/Chest: No acute shortness of breath or respiratory distress or wheezing. CVS: No chest pain pressure or tightness. Gastrointestinal: Denies coffee ground emesis, hematemesis or vomiting. Had BM today. Genitourinary: Voiding urine normally. Denies burning urination or new urinary tract symptoms Musculoskeletal: Denies acute joint pain. Rest as mentioned in HPI Neurologic: Chronic vascular dementia. History of a stroke in the past . No seizure-like symptoms. skin: No ulcer. No rash Endocrinology: Reports systems reviewed and no addt'l complaints, except as documented Hematologic/Lymphatic: Reports systems reviewed and no addt'l complaints, except as documented Rest 14 ROS are negative except as mentioned in HPI Vital Signs Vital Signs Vital Signs: 07/10/24 14:10 07/10/24 14:40 07/10/24 16:06 Temperature 97.8 F 97.4 F L Temperature Source Oral Pulse Rate 88 85 Respiratory Rate 20 H 16 Respiratory Effort Normal Respiratory Depth Normal Respiratory Pattern Normal Blood Pressure 155/76 H 142/65 H Blood Pressure Mean 102 90 Pulse Ox 96 96 Oxygen Delivery Method Room Air Room Air 07/10/24 16:10 Temperature Temperature Source Pulse Rate 84 Respiratory Rate 21 H Respiratory Effort Respiratory Depth Respiratory Pattern Blood Pressure 147/66 H Blood Pressure Mean 93 Pulse Ox 96 Oxygen Delivery Method Room Air Weight Weight: 162 lb 11.218 oz Body Mass Index (BMI) 24.0 Physical Exam Narrative General: Awake. Cooperative. Feeling cold. Orientation cannot be ascertained because of vascular dementia HEENT: Atraumatic, PERRLA, EOMI, Normocephalic Oral: Oral mucosa moist. No Gingival or Mucosal Lesions/ Ulcerations Neck: Supple, No JVD, Negative Carotid Bruits Chest wall/Lungs: Air entry diminished in bilateral lung bases. No crepitation/rhonchi Cardiovascular: Regular rate, Regular Rhythm, Normal S1, Normal S2, No M/G/R Abdomen: Bowel Sounds Present, Soft, Non Tender, Non-Distended : No dysuria. No renal angle tenderness. No suprapubic tenderness. Extremities: No edema, Capillary Refill Less than 3 Seconds Skin: No rashes, No breakdown Musculoskeletal: Mild tenderness along left greater trochanter. On a squeezing sideways of pelvic bones, mild tenderness. Left hip externally rotated. Neurological: Cranial nerves II-XII grossly intact, DTR 2+/4. No acute focal neurological deficit. Psych/Mental Status: Flat affect. Results Lab / Micro Data 07/10/24 14:35 07/10/24 14:35 Labs: Laboratory Results - last 24 hr 07/10/24 14:35: WBC 10.1, RBC 4.62, Hgb 14.1, Hct 42.8, MCV 92.6, MCH 30.5, MCHC 32.9, RDW Std Deviation 48.4 H, RDW Coeff of Chaim 14.3, Plt Count 201, MPV 10.4, Immature Gran % (Auto) 0.300, Neut % (Auto) 74.6 H, Lymph % (Auto) 11.7 L, Perry % (Auto) 10.6 H, Eos % (Auto) 2.4, Baso % (Auto) 0.4, Absolute Neuts (auto) 7.6, Absolute Lymphs (auto) 1.18, Nucleated RBC % 0, Sodium 139, Potassium 4.1, Chloride 104, Carbon Dioxide 30.0, Anion Gap 5, BUN 22 H, Creatinine 1.25, Estim Creat Clear Calc 41.63, Est GFR (MDRD) Af Amer 70, Est GFR (MDRD) Non-Af 58 L, BUN/Creatinine Ratio 17.6, Glucose 111 H, Calcium 9.5, Blood Type A POSITIVE, Antibody Screen NEGATIVE Imaging Radiology Impression Chest X-Ray 07/10/24 15:25 IMPRESSION: No radiographic evidence of acute cardiopulmonary disease. Electronically Signed: Ho Dawkins MD at 15:53 EDT , Hip/Pelvis X-Ray 07/10/24 15:25 IMPRESSION: Nondisplaced intertrochanteric fracture left femur. Electronically Signed: Ho Dawkins MD at 15:51 EDT Reading Location ID and State: [facility] / [place] Tel , Service support , Assessment & Plan Assessment/Plan (1) Closed intertrochanteric fracture of left hip: QUALIFIERS: Encounter type: initial encounter Fracture alignment: nondisplaced Qualified Code(s): S72.145A - Nondisplaced intertrochanteric fracture of left femur, initial encounter for closed fracture PLAN: Plan This is a 89-year-old male is being admitted after fall resulting into left intertrochanteric fracture 1. Fall resulting into acute debility from left intertrochanteric fracture: Hip and pelvis x-ray individually reviewed and shows nondisplaced intertrochanteric fracture of left femur. Chest x-ray initially reviewed shows no acute cardiopulmonary abnormality. Twelve-lead EKG NSR, LAD 87 bpm. QTc 442 ms. Perioperative surgical NSQIP risk calculated and patient average risk, any complication, pneumonia, cardiac complication and UTI and readmission rate above average. But the patient is hospice and family revoked it. I talked to supervisor welding equipment repairer Dr. Raúl Smith and we discussed. Patient did not have any active cardiac issues therefore he said patient is good for going for surgery even though high risk. If any active cardiac issues, he wanted to be notified and he will see the patient 2. 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 Hold Plavix but can resume after 2 or 3 days of surgery if hemostasis is well-controlled. Consult PT and OT 3. BPH with lower obstructive urinary symptoms: On Flomax 4. Chronic abdominal aortic aneurysm: Stable 5. Anxiety and vascular dementia: On Ativan 0.5 mg 3 times daily as needed as needed for anxiety. 6. Hypertension: on amlodipine, continued with holding parameters #DVT prophylaxis: Heparin 5000 subcutaneous every 12 hourly. Hold prior to surgery. Can switch to low-dose Eliquis after 24 to 48 hours surgery if hemostasis is controlled Living will/advanced directive/end of life care: Patient does have living will or advanced directive. His and daughter in ED are power of securities attorney for health. After discussion of benefits/risks procedures involved with full code, DNR CC arrest and DNR CC, the patient's family said that patient is hospice at home, DNR CC arrest but they revoked hospice for the surgery. Patient doesn't want artificial life support including intubation, tube feed, ventilator and/chest compression, central venous catheter, vasopressor and DC shock if needed except during the surgery and immediate postop care. Total time spent in [id number] encounter in discussion of advanced directive 17 minutes. Laboratory Results 07/10/24 14:35: WBC 10.1, RBC 4.62, Hgb 14.1, Hct 42.8, MCV 92.6, MCH 30.5, MCHC 32.9, RDW Std Deviation 48.4 H, RDW Coeff of Chaim 14.3, Plt Count 201, MPV 10.4, Immature Gran % (Auto) 0.300, Neut % (Auto) 74.6 H, Lymph % (Auto) 11.7 L, Perry % (Auto) 10.6 H, Eos % (Auto) 2.4, Baso % (Auto) 0.4, Absolute Neuts (auto) 7.6, Absolute Lymphs (auto) 1.18, Nucleated RBC % 0, Sodium 139, Potassium 4.1, Chloride 104, Carbon Dioxide 30.0, Anion Gap 5, BUN 22 H, Creatinine 1.25, Estim Creat Clear Calc 41.63, Est GFR (MDRD) Af Amer 70, Est GFR (MDRD) Non-Af 58 L, BUN/Creatinine Ratio 17.6, Glucose 111 H, Calcium 9.5, Blood Type A POSITIVE, Antibody Screen NEGATIVE Clinical Impression(s) from Imaging Studies Chest X-Ray 07/10/24 15:25 IMPRESSION: No radiographic evidence of acute cardiopulmonary disease. Hip/Pelvis X-Ray 07/10/24 15:25 IMPRESSION: Nondisplaced intertrochanteric fracture left femur. Charges/Coding Visit Charges Inpatient E&M: 07210 Init Hosp L3 Procedures Hospitalists Procedures: 79365 Advncd Care Plan 30 Min
[2024-07-10 18:54] VITALS: BMI 20.9
[2024-07-10 19:01] VITALS: BP 144/78; PULSE 88; RESP 16; TEMP 36.9; O2SAT 94
[2024-07-10] MEDS: Heparin Injection (Vial) 5,000 UNIT/ML VIAL 5000 UNIT SC (21:48)
[2024-07-10 22:00] VITALS: BP 155/90; PULSE 87; RESP 16; TEMP 36.9; O2SAT 95
[2024-07-10 23:22] LABS: ALB/GLOB Ratio 0.9 RATIO (0.9-2.4); AST(SGOT) 12 U/L (15-37); Alanine Aminotransfer ALT/SGPT 17 U/L (16-61); Albumin, Serum 3.2 g/dL (3.2-5.0); Alkaline Phosphatase 78 U/L (45-117); Anion Gap 6 (5-15); BUN 20 mg/dL (7-18); BUN/Creat Ratio 16.5 RATIO (10-20); Calcium,Total 9.2 mg/dL (8.5-10.1); Chloride 106 mmol/L (98-107); Creatinine, Serum 1.21 mg/dL (0.70-1.30); EST Glomerular Filtration Rate 60 mL/min (>60); Est Glom Filt Rate - Afr Amer 73 mL/min (>60); Estimated Creatinine Clearance 39.18 ml/min; Globulin 3.7 g/dL (2.2-4.2); Glucose 167 mg/dL (74-106); Potassium 3.8 mmol/L (3.5-5.1); Protein, Total 6.9 g/dL (6.4-8.2); Sodium Level 138 mmol/L (136-145)
[2024-07-11] VITALS (17 sets, daily range): BP systolic 134–154; BP diastolic 65–78; PULSE 67–93; RESP 12–17; TEMP 36.5–37.3; O2SAT 90–98; BMI 20.9
--- OUTSIDE RECORDS SUMMARY | 2024-07-11 01:08 | XMS RPT_ITS | CCD ---
Author Organization [facility] Care Team Providers Care Lamp Stack Developer Name Role Phone Delia BENITEZ, Kezia Primary Care Provider Delia BENITEZ, Kezia Primary Care Provider India Woodson RN Unavailable Unavailable Delia BENITEZ, Kezia Primary Care Provider India Woodson RN Unavailable Unavailable Jerrita , Kezia Primary Care Provider [phone] GANTA, KEZIA Primary Care Unavailable NINOSKA PHILLIPS Attending Unavailable GANTA, KEZIA Primary Care Unavailable VERNELL MARTINEZ Attending Unavailable GANTA, KEZIA Primary Care Unavailable GANTA, KEZIA Attending Unavailable GANTA, KEZIA Primary Care Unavailable GANTA, KEZIA Primary Care Unavailable KASSOUFLESA H Referring Unavailable KASSOUF LESA H Attending Unavailable GANTA, KEZIA Primary Care Unavailable WALTER NUÑEZ Attending Unavailab le GANTA, KEZIA Primary Care Unavailable OLDER, KEVIN Attending Unavailable GANTA, KEZIA Primary Care Unavailable KATHY HUGGINS Attending Unavailable GANTA, KEZIA Primary Care Unavailable VERNELL MARTINEZ Attending Unavailable GANTA, KEZIA Primary Care Unavailable GANTA, KEZIA Referring Unavailable GANTA, KEZIA Primary Care Unavailable GANTA, KEZIA Attending Unavailable GANTA, KEZIA Primary Care Unavailable OLDER, KEVIN Attending Unavailable GANTA, KEZIA Primary Care Unavailable KASSOUF LESA H Attending Unavailable GANTA, KEZIA Primary Care Unavailable OLDER, KEVIN Referring Unavailable GANTA, KEZIA Primary Care Unavailable MODKATHY RODRIGUEZ Attending Unavailable GANTA, KEZIA Primary Care Unavailable GANTA, KEZIA Attending Unavailable GANTA, KEZIA Primary Care Unavailable GANTA, KEZIA Referring Unavailable GANTA, KEZIA Primary Care Unavailable GANTA, KEZIA Referring Unavailable GANTA, KEZIA Primary Care Unavailable OLDER, KEVIN Referring Unavailable GANTA, KEZIA Primary Care Unavailable KEZIA DUBOSE Attending Unavailable KEZIA DUBOSE Primary Care Unavailable Allergies Allergy Classification Reported Allergen(s) Allergy Type Date of Onset Reaction(s) Facility (20 sources) Wheat gluten extract; Translations: [GLUTEN] Drug Allergy 09-23-2011 Diarrhea [facility] Work Phone: Medications Current Medications Medication Drug Class(es) Dates Sig (Normalized) Sig (Original) amLODIPine 5 mg oral tablet (20 sources) Dihydropyridine Calcium Channel Luz Maria Start: 06-27-2023 amLODIPine (NORVASC) 5 mg tablet Take 1 tablet in the AM and 1/2 tablet in the PM. 135 tablet 3 06/27/2023 Active Start: 04-24-2023 amLODIPine (NO RVASC) 5 mg tablet Take 1 tablet in the AM and 1/2 tablet in the PM. 0 04/24/2023 Active Start: 03-02-2023 take 1 tablet by hakan th once daily amLODIPine (NORVASC) 5 mg tablet Indications: Nonrheumatic aortic valve insufficiency , Hypertension, essential Take 1 tablet by mouth once daily. 90 tablet 3 03/02/2023 Active Comment on above: Take 1 tablet by hakan th once daily. Take 1 tablet in the AM and 1/2 tablet in the PM. atorvastatin 40 mg oral tablet (20 sources) HMG-CoA Reductase Inhibitor Start: 05-15-20 End: 04-18-20 take 1 tablet by mouth once daily at bedtime atorvastatin (LIPITOR) 40 mg tablet Indications: Mixed hyperlipidemia , Cerebrovascular accident (CVA), unspecified mechanism (HCC) Take 1 tablet by mouth daily at bedtime. 90 tablet 3 04/18/2024 Active Start: 04-06-2023 End: 05-12-2023 take 1 tablet by mouth once daily at bedtime atorvastatin (LIPITOR) 40 mg tablet Take 1 tablet by mouth daily at bedtime. 0 04/06/2023 05/12/2023 Discontinued Comment on above: Take 1 tablet by hakan th daily at bedtime. cephalexin 500 mg oral capsule (1 source) Cephalosporin Antibacterial Start: End: take 1 capsule by mouth twice daily cephALEXin (KEFLEX) 500 mg capsule Take 1 capsule by mouth two times a day for 7 days. 14 capsule 0 02/06/2024 02/13/2024 Active cholecalciferol 0.125 mg oral tablet (20 sources) Vitamin D Start: 021 take 1 tablet by mouth once daily cholecalciferol (VITAMIN D3) 5,000 unit tab Take 1 tablet by mouth once daily. 02/10/2021 Active Comment on above: Take 1 tablet by hakan th once daily. clopidogrel 75 mg oral tablet (20 sources) [id number] Platelet Inhibitor Start: 023 End: 024 take 1 tablet by mouth once daily clopidogrel (PLAVIX) 75 mg tablet Take 1 tablet by mouth once daily. 30 tablet 11 04/22/2024 Active Start: 04-07-2023 take 1 tablet by hakan th once daily clopidogrel (PLAVIX) 75 mg tablet Take 1 tablet by mouth once daily. 0 04/07/2023 Active Comment on above: Take 1 tablet by hakan th once daily. fludrocortisone acetate 0.1 mg oral tablet (7 sources) Start: 2023 take 1 tablet by mouth once daily fludrocortisone (FLORINEF) 0.1 mg tablet Take 0.1 mg by mouth once daily. 05/03/2024 Active hydrocortisone 0.025 mg/mg topical ointment (20 sources) Corticosteroid Start: 2022 End: 2024 hydrocortisone 2.5 % ointment Indications: Pruritus Apply to itchy areas once daily 454 g 1 11/07/2023 11/07/2024 Active Comment on above: Apply to itchy areas once daily iv contrast (will be provided with radiology test) (1 source) Start: 2022 End: 2022 inject 1 dose intravenously once iv contrast (will be provided with radiology test) CTA ABD/PEL - No IV access, insert saline lock prior to the sedation, infusion, injection for imaging exam. Discontinue saline lock post exam. If Pt. has a central line or IVAD, may access for administration according to line specific nursing protocol. Once exam is complete flush line and de-access according to line specific nursing protocol in the CT contrast administration guidelines link. 1 Each 0 12/07/2022 12/08/2022 Active Comment on above: CTA ABD/PEL - No IV access, insert saline lock prior to the sedation, infusion, injection for imaging exam. Discontinue saline lock post exam. If Pt. has a central line or IVAD, may access for administration according to line specific nursing protocol. Once exam is complete flush line and de-access according to line specific nursing protocol in the CT contrast administration guidelines link. LORazepam 0.5 mg oral tablet (4 sources) Benzodiazepine Start: 2023 End: 2023 take 1 tablet by mouth three times daily as needed for anxiety LORazepam (ATIVAN) 0.5 mg Indications: Panic attacks Take 1 tablet by mouth three times a day as needed (anxiety) for up to 14 days. 14 tablet 1 04/19/2024 05/03/2024 Active MEDICATION, NON-DATABASE (20 sources) MEDICATION, NON-DATABASE Algae Jared Active MEDICATION, NON- DATABASE Algae Jared 0 Active Comment on above: Algae Jared metoprolol tartrate 50 mg oral tablet (20 sources) beta-Adrenergic Luz Maria Start: 10-02-2023 take 1 tablet by mouth twice daily metoprolol tartrate, short acting, (LOPRESSOR) 50 mg tablet Indications: Hypertension, essential Take 1 tablet by mouth two times a day. 180 tablet 3 10/02/2023 Active Start: 11-03-2022 take 1 tablet by hakan th twice daily metoprolol tartrate, short acting, (LOPRESSOR) 50 mg tablet Indications: Hypertension, essential Take 1 tablet by mouth twice daily. 180 tablet 3 11/03/2022 Active Start: 04-16-2021 End: 08-04-2022 take 1 tablet by mouth twice daily metoprolol tartrate, short acting, (LOPRESSOR) 50 mg tablet Indications: Hypertension, essential Take 1 tablet by mouth twice daily. 90 tablet 3 08/04/2022 Active Comment on above: Take 1 tablet by hakan th twice daily. Take 1 tablet by hakan th two times a day. metroNIDAZOLE 250 mg oral tablet (2 sources) Nitroimidazole Antimicrobial Start: 10-12-19 End: 10-26-19 take 1 tablet by mouth three times daily metroNIDAZOLE (FLAGYL) 250 mg tablet Indications: Intestinal dysbiosis , Small intestinal bacterial overgrowth (SIBO) Take 1 tablet by mouth three times daily for 14 days. 42 tablet 0 10/12/2022 10/26/2022 Active Comment on above: Take 1 tablet by hakan th three times daily for 14 days. Oil of Oregano [address] 60 [address]. ([employer]) (20 sources) Start: 09-27-19 Oil of Oregano 150 mg. 60 ct. ([employer]) Take 1 softgel daily, with meals. 09/27/2023 Active Start: 09-27-2023 Oil of Oregano [address] ([employer]) Take 1 softgel daily, with meals. 0 09/27/2023 Active Comment on above: Take 1 softgel daily , with meals. perflutren lipid microspheres 1.3 mL in NaCl (PF) 0.9% 10 mL injection (DEFINITY) (20 sources) Start: 03-02-20 End: 05-31-20 perflutren lipid microspheres 1.3 mL in NaCl (PF) 0.9% 10 mL injection (DEFINITY) QUEtiapine 25 mg oral tablet (20 sources) Atypical Antipsychotic Start: 04-24-20 take 1 tablet by mouth every eight hours as needed QUEtiapine (SEROQUEL) 25 mg tablet Take 1 tablet by mouth three times a day as needed. 20 tablet 04/24/2024 Active End: 06-23-2023 QUEtiapine (SEROQUEL) 25 mg tablet Take 12.5 mg by mouth daily at bedtime. 0 06/23/2023 Discontinued (Course of therapy completed) Comment on above: Take 12.5 mg by mout h daily at bedtime. rifAXIMin 550 mg oral tablet (3 sources) Rifamycin Antibacterial Start: 10-12-19 End: 10-28-19 take 1 tablet by mouth three times daily rifAXIMin (XIFAXAN) 550 mg tablet Indications: Small intestinal bacterial overgrowth (SIBO) Take 1 tablet by mouth three times daily for 14 days. 42 tablet 0 10/14/2022 10/28/2022 Active Comment on above: Take 1 tablet by hakan th three times daily for 14 days. Saccharomyces boulardii (20 sources) Start: 09-27-19 take 1 capsule by mouth twice daily at mealtime Saccharomyces Boulardii 60 ct. (Klaire/Prothera) Take 1 capsule by mouth two times a day with meals. 09/27/2023 Active Start: 09-27-2023 take 1 capsule by mo [facility] twice daily at mealtime Saccharomyces Boulardii 60 ct. (Klaire/Prothera) Take 1 capsule by mouth two times a day with meals. 0 09/27/2023 Active Comment on above: Take 1 capsule by [facility] two times a day with meals. 125 ml sodium chloride 9 mg/ml prefilled syringe (20 sources) Start: 03-02-20 End: 05-31-20 sodium chloride 0.9 % (flush) 10 mL (BD POSIFLUSH) sulfamethoxazole 800 mg / trimethoprim 160 mg oral tablet (2 sources) Dihydrofolate Reductase Inhibitor Antibacterial, Sulfonamide Antimicrobial Start: 02-28-20 End: 03-09-20 take 1 tablet by mouth twice daily sulfamethoxazole- trimethoprim (BACTRIM DS) 800-160 mg per tablet Take 1 tablet by mouth two times a day for 10 days. 20 tablet 0 02/28/2024 03/09/2024 Active tamsulosin hydrochloride 0.4 mg oral capsule (20 sources) alpha-Adrenergic Luz Maria Start: 03-25-20 take 1 capsule by mouth once daily tamsulosin (FLOMAX) 0.4 mg Indications: Lower urinary tract symptoms (LUTS) Take 1 capsule by mouth once daily. 90 capsule 3 03/25/2024 Active Start: 07-16-2021 End: 03-23-2024 take 1 capsule by mouth once daily tamsulosin (FLOMAX) 0.4 mg Indications: Lower urinary tract symptoms (LUTS) Take 1 capsule by mouth once daily. 90 capsule 3 01/30/2023 03/23/2024 Discontinued Comment on above: Take 1 capsule by [facility] once daily. testosterone 100 mg/ml cream (CPD) (20 sources) Start: 04-19-2024 End: 10-16-2024 testosterone 100 mg/ml cream (CPD) Indications: Testosterone deficiency Apply 0.5 mL to affected area once daily for 180 days. 60 mL 1 04/19/2024 10/16/2024 Active End: 04-18-2024 testosterone 100 mg/ml cream (CPD) Apply 0.5 mL to affected area once daily. 0 04/18/2024 Discontinued testosterone 100 mg/ml cream (CPD) Apply 0.5 mL to affected area once daily. 0 Active Comment on above: Apply 0.5 mL to affe cted area once daily. ubiquinol (20 sources) COQ10, UBIQUINOL , ORAL Take by mouth. Active COQ10, UBIQUINOL , ORAL Take by mouth. 0 Active Comment on above: Take by mouth. Completed/Discontinued Medications Medication Drug Class(es) Dates Sig (Normalized) Sig (Original) acetaminophen 500 mg oral tablet (19 sources) Start: 04-06-2023 End: 06-23-2023 take 1 tablet by mouth every six hours as needed acetaminophen (TYLENOL) 500 mg tablet Take 1 tablet by mouth every 6 hours as needed for pain. 0 04/06/2023 06/23/2023 Discontinued (Course of therapy completed) Start: 12-13-2019 End: 01-28-2022 take 2 tablets by mouth every six hours acetaminophen (TYLENOL) 325 mg tablet Take 2 tablets by mouth every 6 hours. 0 12/13/2019 01/28/2022 Discontinued Comment on above: Take 2 tablets by mo uth every 6 hours. Take 1 tablet by hakan th every 6 hours as needed for pain. aspirin 81 mg chewable tablet (20 sources) Platelet Aggregation Inhibitor, Nonsteroidal Anti-inflammatory Drug Start: 3 End: 3 take 1 tablet by mouth once daily aspirin 81 mg chewable tablet 1 tablet by ORAL/FEEDING TUBE route once daily for 15 days. 0 04/07/2023 06/23/2023 Discontinued (Discontinued by another Health Care Provider) Start: 04-07-2023 End: 04-22-2023 take 1 tablet by mouth once daily aspirin 81 mg chewable tablet 1 tablet by ORAL/FEEDING TUBE route once daily for 15 days. 0 04/07/2023 Active Start: 09-02-2013 take 1 tablet by hakan th once daily Aspirin 81 mg tab Take 1 tablet by mouth once daily. 0 09/02/2013 Active Comment on above: Take 1 tablet by hakan th once daily. 1 tablet by ORAL/FEE DING TUBE route once daily for 15 days. Atrantil (8 sources) Start: 023 Atrantil Indications: Intestinal dysbiosis , Gassiness One (2) capsule per day up to 3 x's a day with food. 0 10/12/2022 Active Comment on above: One (2) capsule per day up to 3 x's a day with food. Biocidin Advanced Formula ([employer]) (9 sources) Start: 023 take 5 drop(s) by mouth three times daily Biocidin Advanced Formula ([employer]) Indications: Intestinal dysbiosis Take 5 Drops by mouth three times daily. 0 10/12/2022 Active Comment on above: Take 5 Drops by mout h three times daily. budesonide 3 mg delayed release oral capsule (2 sources) Corticosteroid budesonide, ente anisha coated (ENTOCORT EC) 3 mg 24 hr capsule Take 6 mg by mouth as needed. 0 Active Comment on above: Take 6 mg by mouth a s needed. CandiBactin AR ([employer]) (9 sources) Start: CandiBactin AR ([employer]) Indications: Intestinal dysbiosis One softgel three times daily with meals 0 10/12/2022 Active Comment on above: One softgel three ti mes daily with meals CandiBactin BR ([employer]) (9 sources) Start: 023 CandiBactin BR ([employer]) Indications: Intestinal dysbiosis Two tablets three times daily 0 10/12/2022 Active Comment on above: Two tablets three ti mes daily cholestyramine resin 4000 mg powder for oral suspension (20 sources) Bile Acid Sequestrant Start: 021 cholestyramine (QUESTRAN) 4 gram packet prn 0 11/11/2020 Active Comment on above: prn CYANOCOBALAMIN, VITAMIN B-12, (VITAMIN B-12 ORAL) (20 sources) CYANOCOBALAMIN, VITAMIN B-12, (VITAMIN B-12 ORAL) Take by mouth once daily. 0 Active Comment on above: Take by mouth once d aily. cyanocobalamin/folic ac/vit B6 (HOMOCYSTEINE FORMULA ORAL) (20 sources) take 2 capsules by mouth once daily before mealtime cyanocobalamin/folic ac/vit B6 (HOMOCYSTEINE FORMULA ORAL) Take by mouth once daily. 2 capsules 0 Active Comment on above: Take by mouth once d aily. 2 capsules glutamine 500 mg oral capsule (20 sources) Amino Acid take 1 capsule by mouth once daily Glutamine (L-GLUTAMINE) 500 mg cap Take by mouth once daily. 0 Active Comment on above: Take by mouth once d aily. Glutathione (20 sources) GLUTATHIONE ORAL Take by mouth. 0 Active Comment on above: Take by mouth. Herbal Drugs cap (2 sources) take 1 capsule by mouth once daily Herbal Drugs cap Take 1 capsule by mouth once daily. [facility] 0 Active Comment on above: Take 1 capsule by [facility] once daily. [facility] homeopathic drugs (PROSTATE ORAL) (20 sources) Start: 018 End: 023 homeopathic drugs (PROSTATE ORAL) Start: 02-23-[address] sosa (PROSTATE ORAL) hydrOXYzine hydrochloride 25 mg oral tablet (16 sources) Antihistamine Start: 08-08-2022 End: 09-01-2022 take 1 tablet by mouth every eight hours as needed hydrOXYzine HCl (ATARAX) 25 mg tablet TAKE 1 TABLET BY MOUTH THREE TIMES DAILY NEEDED FOR ITCHING/RASH. 90 tablet 3 09/01/2022 Active Comment on above: Take 1 tablet by [facility] three times daily as needed for itching/rash. o-mnwrskyor-sousht ce root extract-aloe leaf extract (GLUTAGENICS) [id number] powder (9 sources) Start: 10-12-2022 g-bswrkvlea-mwhzwj ce root extract-aloe leaf extract (GLUTAGENICS) [id number] powder Indications: Intestinal dysbiosis Mix one teaspoon (4.33 g) with water three times daily (1 teaspoon = 3.5 grams L-glut) 0 10/12/2022 Active Comment on above: Mix one teaspoon (4. 33 g) with water three times daily (1 teaspoon = 3.5 grams L-glut) Lactobacillus acidophilus (20 sources) Lactobacillus acidophilus (PROBIOTIC ORAL) Take by mouth once daily. 0 Active Comment on above: Take by mouth once d aily. lidocaine 0.04 mg/mg medicated patch (14 sources) Antiarrhythmic, Amide Local Anesthetic Start: 04-07-2023 End: 05-16-2023 apply 1 dose transdermal route once daily lidocaine (SALONPAS) 4 % patch Apply 1 Patch as directed once daily. Reinforce with abd for splinting ribs 0 04/07/2023 05/16/2023 Discontinued Comment on above: Apply 1 Patch as dir ected once daily. Reinforce with abd for splinting ribs linseed oil 1000 mg oral capsule (20 sources) Flaxseed Oil 1,0 00 mg cap Take by mouth. 0 Active Comment on above: Take by mouth. Magnesium (20 sources) take 600 mg by mouth once daily MAGNESIUM ORAL Take 600 mg by mouth once daily. 0 Active Comment on above: Take 600 mg by mouth once daily. magnesium chloride 535 mg delayed release oral tablet (20 sources) Start: 05-05-2023 End: 04-12-2024 take 2 tablets by mouth once daily magnesium chloride (MAG64) [address] tablet Indications: Neck pain, chronic , Celiac disease , Acute diarrhea TAKE 2 TABLETS BY MOUTH EVERY DAY 60 tablet 3 05/30/2023 04/12/2024 Discontinued Comment on above: 2 tablets once daily TAKE 2 TABLETS BY [facility] EVERY DAY magnesium oxide 400 mg oral tablet (11 sources) Start: 03-05-2021 End: 08-08-2022 take 0.5 tablet by mouth once daily magnesium oxide (MAG-OX) 400 mg (241.3 mg magnesium) tablet Indications: hypomagnesemia Take 0.5 tablets by mouth once daily. 15 tablet 0 03/05/2021 08/08/2022 Discontinued (Discontinued by Patient) Comment on above: Take 0.5 tablets by mouth once daily. methocarbamol 500 mg oral tablet (3 sources) Muscle Relaxant Start: 04-06-2023 take 1 tablet by mouth twice daily methocarbamol (ROBAXIN) 500 mg tablet Take 1 tablet by mouth twice daily. 0 04/06/2023 Active Comment on above: Take 1 tablet by [facility] twice daily. MILK THISTLE SEED (20 sources) Start: 04-04-2022 take 1 capsule by mouth once daily milk thistle seed extract 200 mg cap Indications: Itching Take 1 capsule by mouth once daily. 0 04/04/2022 Active Start: 04-04-2022 milk thistle s eed extract 200 mg cap Indications: Itching Take by mouth. 0 04/04/2022 Active Comment on above: Take by mouth. Take 1 capsule by [facility] once daily. OTC PRODUCT (20 sources) End: 01-31-2023 OTC PRODUCT digestzymes-- pancreatic enzymes 0 01/31/2023 Discontinued OTC PRODUCT Live r md 2 caps daily 0 Active OTC PRODUCT Livier rial protect one cap dialy 0 Active OTC PRODUCT dige stzymes-- pancreatic enzymes 0 Active Comment on above: Liver md 2 caps toni y Arterial protect one cap dialy digestzymes-- pancre atic enzymes oxyCODONE hydrochloride 5 mg oral tablet (3 sources) Opioid Agonist Start: 023 take 0.5 tablet by mouth every six hours as needed oxyCODONE IR (ROXICODONE) 5 mg immediate release tablet Indications: Closed fracture of multiple ribs of left side, sequela Take 0.5 tablets by mouth every 6 hours as needed. 6 tablet 0 04/06/2023 Active Comment on above: Take 0.5 tablets by mouth every 6 hours as needed. selenium 200 mcg tablet (20 sources) take 1 tablet by mouth once daily selenium 200 mcg tablet Take 1 tablet by mouth once daily. 0 Active Comment on above: Take 1 tablet by hakan th once daily. SprectraZyme Mcqueen 9x ES (9 sources) Start: take 1 tablet by mouth at mealtime SprectraZyme Mcqueen 9x ES Indications: Intestinal dysbiosis Take 1 tablet by mouth w MEALS. 0 10/12/2022 Active Comment on above: Take 1 tablet by hakan th w MEALS. TESTOSTERONE, BULK, MISC (20 sources) TESTOSTERONE, BU LK, MISC Cream 0 Active Comment on above: Cream triamcinolone acetonide 1 mg/ml topical cream (20 sources) Corticosteroid Start: 021 triamcinolone acetonide (KENALOG) 0.1 % cream Apply 1 application to affected area twice daily as needed (Avoid use on the face and eyelids). 60 g 2 06/09/2021 Active Comment on above: Apply 1 application to affected area twice daily as needed (Avoid use on the face and eyelids). Turmeric extract (20 sources) turmeric (CURCUM IN MISC) ubidecarenone (COQ-10 ORAL) (20 sources) take 200 mg by mouth once daily ubidecarenone (COQ-10 ORAL) Take 200 mg by mouth once daily. 0 Active Comment on above: Take 200 mg by mouth once daily. VITAMIN K2 ORAL (20 sources) take 550 ug by mouth once daily VITAMIN K2 ORAL Take 550 mcg by mouth once daily. 0 Active Comment on above: Take 550 mcg by mout h once daily. Yeast Formula ([employer]) (19 sources) Start: 08-22-2 023 End: 024 Yeast Formula ([employer]) Take 2 enteric-coated softgels between meals twice daily 90 capsule 0 05/16/2023 01/29/2024 Discontinued (Discontinued by Patient) Start: 05-16-2023 Yeast Formula ([employer]) Take 2 enteric- coated softgels between meals twice daily 90 capsule 0 05/16/2023 Active Comment on above: Take 2 enteric-coate d softgels between meals twice daily Zinc (20 sources) take 50 mg by mouth once daily ZINC ORAL Take 50 mg by mouth once daily. 0 Active Comment on above: Take 50 mg by mouth once daily. Problems Active Problems Problem Classification Problem Date Documented Da te Episodic/Chronic Acute cerebrovascular disease (20 sources) Ischemic stroke; Translations: [Cerebral infarction, unspecified] Onset: 04-04-2023 04-06-2023 Chronic Administrative/social admission (2 sources) Administrative reason for encounter; Translations: [Persons encountering health services in other specified circumstances] Episodic Allergic reactions (1 source) Propensity to adverse reactions to food; Translations: [Other adverse food reactions, not elsewhere classified, initial encounter] Episodic Anxiety disorders (1 source) Panic attack; Translations: [Panic disorder [episodic paroxysmal anxiety]] 04-19-2024 Chronic Aortic; peripheral; and visceral artery aneurysms (20 sources) Abdominal aortic aneurysm without rupture; Translations: [Abdominal aortic aneurysm, without rupture] Onset: 03-11-2016 Chronic Blindness and vision defects (2 sources) Visual impairment; Translations: [Unqualified visual loss, left eye, normal vision right eye] 08-08-2023 Chronic Chronic kidney disease (20 sources) Chronic kidney disease stage 3A ; Translations: [Stage 3a chronic kidney disease (HCC)] Onset: 02-10-2021 Chronic Chronic kidney disease (1 source) Chronic kidney disease; Translations: [Stage 3a chronic kidney disease (HCC)] Onset: 03-04-2021 Deficiency and other anemia (1 source) Anemia; Translations: [Anemia, unspecified] 05-20-2024 Episodic Deficiency and other anemia (1 source) Anemia, unspecified; Translations: [Anemia, unspecified type] Onset: 05-20-2024 Episodic Disorders of lipid metabolism (20 sources) Mixed hyperlipidemia; Translations: [Mixed hyperlipidemia] Onset: 11-30-2010 03-04-2021 Chronic Diverticulosis and diverticulitis (20 sources) Diverticulosis of large intestine; Translations: [Diverticulosis of large intestine without perforation or abscess without bleeding] 03-27-2019 Chronic Essential hypertension (20 sources) Essential hypertension; Translations: [Essential (primary) hypertension] Onset: 02-02-2018 Chronic Genitourinary symptoms and ill-defined conditions (4 sources) Lower urinary tract symptoms; Translations: [Unspecified symptoms and signs involving the genitourinary system] Episodic Heart valve disorders (20 sources) Aortic valve regurgitation; Translations: [Nonrheumatic aortic (valve) insufficiency] Onset: 03-02-2023 Chronic Hyperplasia of prostate (20 sources) Benign prostatic hyperplasia; Translations: [Benign prostatic hyperplasia with lower urinary tract symptoms] Onset: 12-13-2019 03-04-2021 Chronic Malaise and fatigue (3 sources) Left hemiparesis; Translations: [Weakness] 05-03-2023 Episodic Nutritional deficiencies (20 sources) Vitamin D deficiency; Translations: [Vitamin D deficiency, unspecified] Onset: 04-06-2009 Chronic Nutritional deficiencies (1 source) Essential fatty acid deficiency; Translations: [Essential fatty acid [EFA] deficiency] Episodic Occlusion or stenosis of precerebral arteries (20 sources) Bilateral stenosis of carotid arteries; Translations: [Occlusion and stenosis of bilateral carotid arteries] Onset: 08-20-2018 03-27-2019 Chronic Other circulatory disease (1 source) History of cerebrovascular accident; Translations: [Personal history of transient ischemic attack (TIA), and cerebral infarction without residual deficits] 05-16-2023 Episodic Other connective tissue disease (2 sources) Other symptoms and signs involving the musculoskeletal system; Translations: [Other musculoskeletal symptoms referable to limbs] Onset: 05-20-2024 05-20-2024 Episodic Other diseases of kidney and ureters (1 source) Abnormal renal function; Translations: [Disorder of kidney and ureter, unspecified] Episodic Other ear and sense organ disorders (1 source) Decreased hearing ; Translations: [Unspecified hearing loss, bilateral] 04-18-2024 Chronic Other endocrine disorders (1 source) Syndrome of inappropriate vasopressin secretion; Translations: [Syndrome of inappropriate secretion of antidiuretic hormone] 05-20-2024 Chronic Other endocrine disorders (1 source) Syndrome of inappropriate secretion of antidiuretic hormone; Translations: [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)] Onset: 05-20-2024 Chronic Other endocrine disorders (3 sources) Hypotestosteronism; Translations: [Endocrine disorder, unspecified] 04-12-2024 Episodic Other endocrine disorders (1 source) Endocrine disorder, unspecified; Translations: [Testosterone deficiency] Onset: 04-18-2024 Episodic Other gastrointestinal disorders (20 sources) Celiac disease; Translations: [Celiac disease] Onset: 08-31-2010 Chronic Other gastrointestinal disorders (3 sources) Irritable bowel syndrome with diarrhea; Translations: [Irritable bowel syndrome with diarrhea] Chronic Other gastrointestinal disorders (1 source) Irritable bowel syndrome with diarrhea; Translations: [Irritable bowel syndrome with diarrhea] Onset: 03-27-2024 Chronic Other gastrointestinal disorders (2 sources) Abdominal bloating; Translations: [Abdominal distension (gaseous)] Episodic Other gastrointestinal disorders (1 source) Small bowel bacterial overgrowth syndrome; Translations: [Other specified diseases of intestine] Episodic Other gastrointestinal disorders (2 sources) Other functional disorders of intestine; Translations: [Intestinal dysbiosis] Episodic Other inflammatory condition of skin (1 source) Itching ; Translations: [Pruritus, unspecified] Episodic Other inflammatory condition of skin (1 source) Itching of skin; Translations: [Pruritus, unspecified] Episodic Other inflammatory condition of skin (1 source) Pruritus, unspecified; Translations: [Unspecified pruritic disorder] 11-07-2023 Episodic Other nutritional; endocrine; and metabolic disorders (1 source) Hypomagnesemia; Translations: [Hypomagnesemia] 05-20-2024 Chronic Other nutritional; endocrine; and metabolic disorders (1 source) Hypomagnesemia; Translations: [Hypomagnesemia] Onset: 05-20-2024 Chronic Other nutritional; endocrine; and metabolic disorders (2 sources) Impaired nutrient utilization; Translations: [Other symptoms and signs concerning food and fluid intake] Episodic Other skin disorders (2 sources) Actinic keratosis; Translations: [Actinic keratosis] Episodic Other skin disorders (1 source) Inflamed seborrheic keratosis; Translations: [Inflamed seborrheic keratosis] Episodic Other skin disorders (1 source) Seborrheic keratosis; Translations: [Other seborrheic keratosis] 11-07-2023 Episodic Other skin disorders (1 source) Lentiginosis; Translations: [Other melanin hyperpigmentation] 11-07-2023 Episodic Peripheral and visceral atherosclerosis (20 sources) Peripheral vascular disease; Translations: [Peripheral vascular disease, unspecified] Onset: 02-25-2016 Chronic Residual codes; unclassified (1 source) Delirium; Translations: [Disorientation, unspecified] 04-24-2024 Episodic Urinary tract infections (1 source) Acute urinary tract infection; Translations: [Urinary tract infection, site not specified] 02-06-2024 Episodic Past or Other Problems Problem Classification Problem Date Documented Da te Episodic/Chronic Crushing injury or internal injury (20 sources) Traumatic pneumothorax; Translations: [Traumatic pneumothorax, initial encounter] Onset: 04-04-2023 Resolved: 04-06-2023 04-06-2023 Episodic Diabetes mellitus without complication (20 sources) High hemoglobin A1c level; Translations: [Other abnormal glucose] Onset: 02-10-2021 Episodic Fluid and electrolyte disorders (20 sources) Hypokalemia; Translations: [Hypokalemia] Onset: 03-01-2021 Episodic Hemorrhoids (20 sources) Internal hemorrhoids; Translations: [Other hemorrhoids] Onset: 05-05-2008 02-08-2017 Episodic Mycoses (3 sources) Enteritis due to Charissa; Translations: [Candidal enteritis] Onset: 03-27-2024 05-16-2023 Episodic Other aftercare (1 source) Other penitentiary (current) drug therapy; Translations: [Medication management] Onset: 03-27-2024 Episodic Other connective tissue disease (20 sources) Soft tissue lesion of shoulder region; Translations: [Bursopathy, unspecified] Onset: 09-08-2013 02-08-2017 Episodic Other connective tissue disease (20 sources) Synovial cyst of right popliteal space; Translations: [Synovial cyst of popliteal space [Barrett], right knee] Onset: 02-14-2022 Episodic Other connective tissue disease (13 sources) Synovial cyst of popliteal space [Barrett], right knee; Translations: [Synovial cyst of popliteal space] Onset: 02-14-2022 02-14-2022 Episodic Other fractures (20 sources) Fracture of multiple ribs ; Translations: [Multiple fractures of ribs, unspecified side, initial encounter for closed fracture] Onset: 04-04-2023 04-06-2023 Episodic Other gastrointestinal disorders (20 sources) Diarrhea; Translations: [Diarrhea, unspecified] Onset: 05-05-2008 03-01-2021 Episodic Other gastrointestinal disorders (20 sources) Acute diarrhea; Translations: [Diarrhea, unspecified] Onset: 03-01-2021 03-04-2021 Episodic Other non-traumatic joint disorders (20 sources) Pain in right shoulder; Translations: [Pain in joint, shoulder region] Onset: 09-08-2013 Resolved: 09-18-2014 09-18-2014 Episodic Other screening for suspected conditions (not mental disorders or infectious disease) (3 sources) Patient encounter status; Translations: [Encounter for screening for malignant neoplasm of skin] Onset: 2024 11-07-2023 Episodic Spondylosis; intervertebral disc disorders; other back problems (20 sources) Chronic neck pain; Translations: [Cervicalgia] Onset: 04-25-2017 08-22-2017 Episodic Results Test Name Value Interpretation Reference Range Facility [facility] 06-21-2024 [facility] Telephone ([facility]) RALPH,SERGO Suárez ([id number]) 1935 M Date Time Provider Department [facility]/21[facility] During your visit today, we recorded the following information about you: Betsey Collado LPN 06/21/2024 11:47 AM Signed Spoke to [place] the patients son, dropping off paperwork for intermittent FMLA for both parents. Additional note in Betsey Headings chart. Betsey Collado LPN June 21, 2024 11:47 AM Peg De Jesus MA 06/24/2024 10:42 AM Signed Forms received, partially completed and given to Dr. Dubose for review, completion, and signature. Once signed, please fax to [phone], [facility]. Send copy to medical records for scanning. ROLAND Christie Laurie Lynn, LPN 07/03/2024 4:03 PM Signed Checking to see if this has been completed. CHICHI Mejia Chitra, MD 07/04/2024 6:10 PM Signed Completed and faxed january days ago Allergies As of Date: 06/21/2024 Noted Allergy Reaction GLUTEN 09/23/2011 6 - Diarrhea Comments: Upset stomach Gas build up Date Reviewed: 05/20/2024 Reviewed by: Laura Ambrocio LPN - Fully Assessed Reason for Visit: Patient Update [1234] Cmt: [facility] paperwork Prescriptions as of 07/05/2024 - fludrocortisone (FLORINEF) 0.1 mg tablet Take 0.1 mg by mouth once daily. - QUEtiapine (SEROQUEL) 25 mg tablet Take 1 tablet by mouth three times a day as needed. - clopidogrel (PLAVIX) 75 mg tablet Take 1 tablet by mouth once daily. - testosterone 100 mg/ml cream (CPD) Apply 0.5 mL to affected area once daily for 180 days. - atorvastatin (LIPITOR) 40 mg tablet Take 1 tablet by mouth daily at bedtime. - tamsulosin (FLOMAX) 0.4 mg Take 1 capsule by mouth once daily. - hydrocortisone 2.5 % ointment Apply to itchy areas once daily - metoprolol tartrate, short acting, (LOPRESSOR) 50 mg tablet Take 1 tablet by mouth two times a day. - MEDICATION, NON-DATABASE Algae Jared - Oil of Oregano 150 mg. 60 ct. ([employer]) Take 1 softgel daily, with meals. - Saccharomyces Boulardii 60 ct. (Klaire/Prothera) Take 1 capsule by mouth two times a day with meals. - COQ10, UBIQUINOL, ORAL Take by mouth. - amLODIPine (NORVASC) 5 mg tablet Take 1 tablet in the AM and 1/2 tablet in the PM. - cholecalciferol (VITAMIN D3) 5,000 unit tab Take 1 tablet by mouth once daily. Meds Comments as of 02/01/2021: Magnesium once daily, Maxxum 4 multi-vitamin po bid -(Maria Luisa Pulse NAC, CO-Q-10 + PQQ), Methyl-Folate - 400 mcg daily, , Aqua Micki HP9 - 1 tsp bid and JarroSil 4 mg daily. 02/01/21 Aqua Fora 2 tablespoons daily Problem List As Of Date 06/21/2024 Noted Resolved Diverticulosis of large intestine [K57.30] Diarrhea [R19.7] 05/05/2008 Internal hemorrhoids without mention of complic*05/05/2008 Vitamin D deficiency [E55.9] 04/06/2009 Celiac disease [K90.0] 08/31/2010 Mixed hyperlipidemia [E78.2] 11/30/2010 Right shoulder pain [M25.511] 09/08/2013 09/18/2014 Disorders of bursae and tendons in shoulder reg*09/08/2013 Peripheral vascular disease (HCC) [I73.9] 02/25/2016 Abdominal aortic aneurysm without rupture (HCC)*03/11/2016 Medicare annual wellness visit, subsequent [Z00*02/08/2017 Neck pain, chronic [M54.2, G89.29] 04/25/2017 Hypertension, essential [I10] 02/02/2018 Bilateral carotid artery stenosis [I65.23] 08/20/2018 Benign prostatic hyperplasia with urinary hesit*12/13/2019 Stage 3 chronic kidney disease (HCC) [N18.30] 02/10/2021 Elevated hemoglobin A1c [R73.09] 02/10/2021 Acute diarrhea [R19.7] 03/01/2021 Hyponatremia [E87.1] 03/01/2021 Hypokalemia [E87.6] 03/02/2021 Severe protein-calorie malnutrition (HCC) [E43] 03/04/2021 Synovial cyst of right popliteal space [M71.21] 02/14/2022 Nonrheumatic aortic valve insufficiency, modera*03/02/2023 Acute ischemic stroke (HCC) [I63.9] 04/04/2023 Rib fractures [S22.49XA] 04/04/2023 Traumatic pneumothorax [S27.0XXA] 04/04/2023 04/06/2023 Cerebrovascular accident (CVA) (HCC) [I63.9] 06/23/2023 Encounter Status:Closed by OSIRIS TAPIA on 07/05/[address] [facility] CNPSilvia 06-06-2024 CNPN Telephone ([facility]) SERGO ROSAS ([id number]) 1935 M Date Time Provider Department 06/06/24 KATHY HUGGINS During your visit today, we recorded the following information about you: Jennifer Carrasco 06/06/2024 11:07 AM Signed See spouse Betsey Rosas, back to back appointments canceled by hand binder cutter Kesha when I called today. Carrol Allergies As of Date: 06/06/2024 Noted Allergy Reaction GLUTEN 09/23/2011 6 - Diarrhea Comments: Upset stomach Gas build up Date Reviewed: 05/20/2024 Reviewed by: Laura Ambrocio LPN - Fully Assessed Prescriptions as of 06/06/2024 - fludrocortisone (FLORINEF) 0.1 mg tablet Take 0.1 mg by mouth once daily. - QUEtiapine (SEROQUEL) 25 mg tablet Take 1 tablet by mouth three times a day as needed. - clopidogrel (PLAVIX) 75 mg tablet Take 1 tablet by mouth once daily. - testosterone 100 mg/ml cream (CPD) Apply 0.5 mL to affected area once daily for 180 days. - atorvastatin (LIPITOR) 40 mg tablet Take 1 tablet by mouth daily at bedtime. - tamsulosin (FLOMAX) 0.4 mg Take 1 capsule by mouth once daily. - hydrocortisone 2.5 % ointment Apply to itchy areas once daily - metoprolol tartrate, short acting, (LOPRESSOR) 50 mg tablet Take 1 tablet by mouth two times a day. - MEDICATION, NON-DATABASE Algae Jared - Oil of Oregano 150 mg[address] 60 ct. ([employer]) Take 1 softgel daily, with meals. - Saccharomyces Boulardii 60 ct. (Klaire/Prothera) Take 1 capsule by mouth two times a day with meals. - COQ10, UBIQUINOL, ORAL Take by mouth. - amLODIPine (NORVASC) 5 mg tablet Take 1 tablet in the AM and 1/2 tablet in the PM. - cholecalciferol (VITAMIN D3) 5,000 unit tab Take 1 tablet by mouth once daily. Meds Comments as of 02/01/2021: Magnesium once daily, Maxxum 4 multi-vitamin po bid -(Maria Luisa Pulse NAC, CO-Q-10 + PQQ), Methyl-Folate - 400 mcg daily, , Aqua Micki HP9 - 1 tsp bid and JarroSil 4 mg daily. 02/01/21 Aqua Fora 2 tablespoons daily Problem List As Of Date 06/06/2024 Noted Resolved Diverticulosis of large intestine [K57.30] Diarrhea [R19.7] 05/05/2008 Internal hemorrhoids without mention of complic*05/05/2008 Vitamin D deficiency [E55.9] 04/06/2009 Celiac disease [K90.0] 08/31/2010 Mixed hyperlipidemia [E78.2] 11/30/2010 Right shoulder pain [M25.511] 09/08/2013 09/18/2014 Disorders of bursae and tendons in shoulder reg*09/08/2013 Peripheral vascular disease (HCC) [I73.9] 02/25/2016 Abdominal aortic aneurysm without rupture (HCC)*03/11/2016 Medicare annual wellness visit, subsequent [Z00*02/08/2017 Neck pain, chronic [M54.2, G89.29] 04/25/2017 Hypertension, essential [I10] 02/02/2018 Bilateral carotid artery stenosis [I65.23] 08/20/2018 Benign prostatic hyperplasia with urinary hesit*12/13/2019 Stage 3 chronic kidney disease (HCC) [N18.30] 02/10/2021 Elevated hemoglobin A1c [R73.09] 02/10/2021 Acute diarrhea [R19.7] 03/01/2021 Hyponatremia [E87.1] 03/01/2021 Hypokalemia [E87.6] 03/02/2021 Severe protein-calorie malnutrition (HCC) [E43] 03/04/2021 Synovial cyst of right popliteal space [M71.21] 02/14/2022 Nonrheumatic aortic valve insufficiency, modera*03/02/2023 Acute ischemic stroke (HCC) [I63.9] 04/04/2023 Rib fractures [S22.49XA] 04/04/2023 Traumatic pneumothorax [S27.0XXA] 04/04/2023 04/06/2023 Cerebrovascular accident (CVA) (HCC) [I63.9] 06/23/2023 Encounter Status:Closed by JENNIFER CARRASCO on 06/06/[address] [facility] Basic metabolic 2000 panelon 05-20-2024 Anion gap [Moles/Vol] 8 mmol/L Normal 8-15 [facility] Comment on above: Order Comment: Speci men Type: BLOOD SPECIMEN Ordering Facility: [facility] Address: [address] [place] [address] Performed By: #### Casandra TESTO, 37629-2, 3016-3 #### [facility] CLIA [id number] [address] [place] [address] [place] Calcium [Mass/Vol] 9.6 mg/dL Normal 8.5-10.2 [facility] Comment on above: Order Comment: Speci men Type: BLOOD SPECIMEN Ordering Facility: [facility] Address: [address] [place] [address] Performed By: #### Casandra TESTO, 18903-6, 3016-3 #### [facility] CLIA [id number] [address] [place] [address] [place] Chloride [Moles/Vol] 100 mmol/L Normal 98-107 [facility] Comment on above: Order Comment: Speci men Type: BLOOD SPECIMEN Ordering Facility: [facility] Address: [address] [place] [address] Performed By: #### Casandra TESTO, 08968-1, 3016-3 #### [facility] CLIA [id number] [address] [place], [place] [id number] [place] CO2 [Moles/Vol] 29 mmol/L Normal 22-[address] [facility] Comment on above: Order Comment: Speci men Type: BLOOD SPECIMEN Ordering Facility: [facility] Address: [address] [place] [address] Performed By: #### B FARHATO, 75440-6, 3016-3 #### [facility] CLIA [id number] [address] [place] [address] [place] Creatinine [Mass/Vol] 1.17 mg/dL Normal 0.73-1.22 [facility] Comment on above: Order Comment: Shani graham Type: BLOOD SPECIMEN Ordering Facility: [facility] Address: [address] [place] [address] Performed By: #### Casandra TESTO, 84154-4, 3016-3 #### [facility] CLIA [id number] [address] [place] [address] [place] Creatinine and Glomerular filtration rate.predicted panel (S/P/Bld) 60 mL/min/1.73m??? Normal >=[address] [facility] Comment on above: Order Comment: Shani graham Type: BLOOD SPECIMEN Ordering Facility: [facility] Address: [address] [place] [address] Result Comment: Raquel mated Glomerular Filtration Rate (eGFR) is calculated using the 2020 CKD-EPI creatinine equation. This equation utilizes serum creatinine, sex, and age as parameters. The creatinine assay has traceable calibration to isotope dilution-mass spectrometry. Refer to KDIGO guidelines for clinical interpretation. In patients with unstable renal function, e.g. those with acute kidney injury, the eGFR may not accurately reflect actual GFR. Performed By: #### Casandra DOUGHERTYO, 01126-7, 6-3 #### [facility] CLIA [id number] [address] [place] [address] [place] Glucose [Mass/Vol] 114 mg/dL High 74-99 [facility] Comment on above: Order Comment: Shani graham Type: BLOOD SPECIMEN Ordering Facility: [facility] Address: [address] [place] [address] Result Comment: The [place] Diabetes Association (ADA) provides guidance for cutoff values for fasting glucose and random glucose. The ADA defines fasting as no caloric intake for at least 8 hours. Fasting plasma glucose results between 100 to 125 mg/dL indicate increased risk for diabetes (prediabetes). Fasting plasma glucose results greater than or equal to 126 mg/dL meet the criteria for diagnosis of diabetes. In the absence of unequivocal hyperglycemia, results should be confirmed by repeat testing. In a patient with classic symptoms of hyperglycemia or hyperglycemic crisis, random plasma glucose results greater than or equal to 200 mg/dL meet the criteria for diagnosis of diabetes. Reference: Standards of Medical Care in Diabetes 2016, [place] [employer] Association. Diabetes Care. 2016.39(Suppl 1). Performed By: #### Casandra SALMERON, 90971-6, 3015-3 #### [facility] CLIA [id number] [facility] [place] [address] [place] Potassium [Moles/Vol] 4.8 mmol/L Normal 3.7-5.1 [facility] Comment on above: Order Comment: Shani graham Type: BLOOD SPECIMEN Ordering Facility: [facility] Address: [address] [place] [address] Performed By: #### Casandra SALMERON, 91597-2, 3015-3 #### [facility] CLIA [id number] [address] [place] [address] [place] Sodium [Moles/Vol] 137 mmol/L Normal 136-144 [facility] Comment on above: Order Comment: Shani graham Type: BLOOD SPECIMEN Ordering Facility: [facility] Address: [address] [place] [address] Performed By: #### Casandra SLAMERON, 85434-5, 3015-3 #### [facility] CLIA [id number] [facility] [place] [id number] [place] Urea nitrogen [Mass/Vol] 19 mg/dL Normal 9-[address] [facility] Comment on above: Order Comment: Shani graham Type: BLOOD SPECIMEN Ordering Facility: [facility] Address: [address] [place] [address] Performed By: #### Casandra SALMERON, 56956-9, 6-3 #### [facility] CLIA [id number] [address] [place] [address] [place] CBC W Auto Differential pane l (Bld)on 05-20-2024 Basophils (Bld) [#/Vol] 0.06 10*3/uL Normal <0.[address] [facility] Comment on above: Order Comment: Speci men Type: BLOOD SPECIMENOrdering Facility: [facility] Address: [address] [place] [address] Performed By: #### 5 7021-8 ####[facility] [id number] [place] [address] [place] Basophils/100 WBC (Bld) 1.1 % Normal [facility] Comment on above: Order Comment: Speci men Type: BLOOD SPECIMENOrdering Facility: [facility] Address: [address] [place] [address] Performed By: #### 5 7021-8 ####[facility] [id number] [place] [address] [place] Differential cell count method Nom (Bld) Auto Normal [facility] Comment on above: Order Comment: Speci men Type: BLOOD SPECIMENOrdering Facility: [facility] Address: [address] [place] [address] Performed By: #### 5 7021-8 ####[facility] [id number] [place] [address] [place] Eosinophils (Bld) [#/Vol] 0.34 10*3/uL Normal <0.[address] [facility] Comment on above: Order Comment: Speci men Type: BLOOD SPECIMENOrdering Facility: [facility] Address: [address] [place] [address] Performed By: #### 5 7021-8 ####[facility] [id number] [place] [address] [place] Eosinophils/100 WBC (Bld) 6.1 % Normal [facility] Comment on above: Order Comment: Speci men Type: BLOOD SPECIMENOrdering Facility: [facility] Address: [address] [place] [address] Performed By: #### 5 7021-8 ####[facility] [id number] [place] [address] [place] Erythrocyte distribution width (RBC) [Ratio] 14.4 % Normal 11.5-15.[address] [facility] Comment on above: Order Comment: Speci men Type: BLOOD SPECIMENOrdering Facility: [facility] Address: [address] [place] [address] Performed By: #### 5 7021-8 ####[facility] [id number] [place] [address] [place] Hematocrit (Bld) [Volume fraction] 38.3 % Low 39.0-51.[address] [facility] Comment on above: Order Comment: Speci men Type: BLOOD SPECIMENOrdering Facility: [facility] Address: [address] [place] [address] Performed By: #### 5 7021-8 ####[facility] [id number] [place] [address] [place] Hemoglobin (Bld) [Mass/Vol] 12.4 g/dL Low 13.0-17.[address] [facility] Comment on above: Order Comment: Speci men Type: BLOOD SPECIMENOrdering Facility: [facility] Address: [address] [place] [address] Performed By: #### 5 7021-8 ####[facility] [id number] [place] [address] [place] Immature granulocytes (Bld) [#/Vol] 10*3/uL Normal <0.[address] [facility] Comment on above: Order Comment: Speci men Type: BLOOD SPECIMENOrdering Facility: [facility] Address: [address] [place] [address] Performed By: #### 5 7021-8 ####[facility] [id number] [place] [address] [place] Immature granulocytes/100 WBC (Bld) 0.2 % Normal [facility] Comment on above: Order Comment: Speci men Type: BLOOD SPECIMENOrdering Facility: [facility] Address: [address] [place] [address] Performed By: #### 5 7021-8 ####[facility] [id number] [place] [address] [place] Lymphocytes (Bld) [#/Vol] 1.64 10*3/uL Normal 1.00-4.[address] [facility] Comment on above: Order Comment: Speci men Type: BLOOD SPECIMENOrdering Facility: [facility] Address: [address] [place] [address] Performed By: #### 5 7021-8 ####[facility] [id number] [place] [address] [place] Lymphocytes/100 WBC (Bld) 29.3 % Normal [facility] Comment on above: Order Comment: Speci men Type: BLOOD SPECIMENOrdering Facility: [facility] Address: [address] [place] [address] Performed By: #### 5 7021-8 ####[facility] LABCLIA [id number] [place] [address] [place] MCH (RBC) [Entitic mass] 30.5 pg Normal 26.0-34.[address] [facility] Comment on above: Order Comment: Speci men Type: BLOOD SPECIMENOrdering Facility: [facility] Address: [address] [place] [address] Performed By: #### 5 7021-8 ####[facility] LABCLIA [id number] [place] [address] [place] MCHC (RBC) [Mass/Vol] 32.4 g/dL Normal 30.5-36.0 [facility] Comment on above: Order Comment: Speci men Type: BLOOD SPECIMENOrdering Facility: [facility] Address: [address] [place] [address] Performed By: #### 5 7021-8 ####[facility] LABIA [id number] [place] [address] [place] MCV (RBC) [Entitic vol] 94.3 fL Normal 80.0-100.[address] [facility] Comment on above: Order Comment: Speci men Type: BLOOD SPECIMENOrdering Facility: [facility] Address: [address] [place] [address] Performed By: #### 5 7021-8 ####[facility] LABIA [id number] [place] [address] [place] Monocytes (Bld) [#/Vol] 0.74 10*3/uL Normal <0.[address] [facility] Comment on above: Order Comment: Speci men Type: BLOOD SPECIMENOrdering Facility: [facility] Address: [address] [place] [address] Performed By: #### 5 7021-8 ####[facility] LABIA [id number] [place] [address] [place] Monocytes/100 WBC (Bld) 13.2 % Normal [facility] Comment on above: Order Comment: Speci men Type: BLOOD SPECIMENOrdering Facility: [facility] Address: [address] [place] [address] Performed By: #### 5 7021-8 ####[facility] LABIA [id number] [place] [address] [place] Neutrophils (Bld) [#/Vol] 2.81 10*3/uL Normal 1.45-7.[address] [facility] Comment on above: Order Comment: Speci men Type: BLOOD SPECIMENOrdering Facility: [facility] Address: [address] [place] [address] Performed By: #### 5 7021-8 ####[facility] LABCLIA [id number] [place] [address] [place] Neutrophils/100 WBC (Bld) 50.1 % Normal [facility] Comment on above: Order Comment: Speci men Type: BLOOD SPECIMENOrdering Facility: [facility] Address: [address] [place] [address] Performed By: #### 5 7021-8 ####[facility] LABCLIA [id number] [place] [address] [place] Nucleated RBC (Bld) [#/Vol] 10*3/uL Normal <0.[address] [facility] Comment on above: Order Comment: Speci men Type: BLOOD SPECIMENOrdering Facility: [facility] Address: [address] [place] [address] Performed By: #### 5 7021-8 ####[facility] LABIA [id number] [place] [address] [place] Nucleated RBC/100 WBC (Bld) [Ratio] 0.0 /[address] [facility] Comment on above: Order Comment: Speci men Type: BLOOD SPECIMENOrdering Facility: [facility] Address: [address] [place] [address] Performed By: #### 5 7021-8 ####[facility] LABIA [id number] [place] [address] [place] Platelet mean volume (Bld) [Entitic vol] 11.0 fL Normal 9.0-12.[address] [facility] Comment on above: Order Comment: Speci men Type: BLOOD SPECIMENOrdering Facility: [facility] Address: [address] [place] [address] Performed By: #### 5 7021-8 ####[facility] LABCLIA [id number] [place] [address] [place] Platelets (Bld) [#/Vol] 276 10*3/uL Normal 150-[address] [facility] Comment on above: Order Comment: Speci men Type: BLOOD SPECIMENOrdering Facility: [facility] Address: [address] [place] [address] Performed By: #### 5 7021-8 ####[facility] LABCLIA [id number] [place] [address] [place] RBC (Bld) [#/Vol] 4.06 10*6/uL Low 4.20-6.00 [facility] Comment on above: Order Comment: Speci men Type: BLOOD SPECIMENOrdering Facility: [facility] Address: [address] [place] [address] Performed By: #### 5 7021-8 ####[facility] LABCLIA [id number] [place] [address] [place] WBC (Bld) [#/Vol] 5.60 10*3/uL Normal 3.70-11.00 [facility] Comment on above: Order Comment: Speci men Type: BLOOD SPECIMENOrdering Facility: [facility] Address: [address] [place] [address] Performed By: #### 5 7021-8 ####[facility] LABIA [id number] [place] [address] [place] CNOVon 05-20-2024 CNOV Office Visit (INTMWS ) HEADINGS,SERGO Suárez ([id number]) 1935 M Date Time Provider Department 05/20/24 3:40 PM KEZIA DUBOSE INTMWS During your visit today, we recorded the following information about you: Pulse Blood pressure Weight 73/minute 163/77 63.7 kg Kezia Dubose MD 05/20/2024 5:06 PM Signed CC: Patient presents with: Hospital F/U: syncope discharged on 05/14/24 HPI Sergo Rosas is a 88 year old male h/o stroke 2022, Hypertension, hyperlipidemia, collagenase colitis with concerns for dehydration as he tolerates very small variety of foods. Eating anything that he does not tolerate will give him diarrhea and with his age he is very prone to dehydration which is very concerning for him and his 04/24/2024: Sergo was in the ER for an episode of being unresponsive for couple of minutes along with vomiting. He was visiting his in the hospital when this happened. ED workup was done immediately as he was within the hospital for Misys. His CT was negative for any intracranial process. The fact they found foci of encephalomalacia within the right frontal and right parietal occipital lobes that was consistent with old infarcts. They did find sodium to be only 120.. He was found to be orthostatic and was hydrated. He was offered an echo which he did not want to get them. They started Zoloft on him which could cause hyponatremia but family did not give him the medication. She has been having some type of sundowning behaviors Sleeping at night without interruptions, got 10 hours of sleep last night. 04/2024 Sergo was admitted to the hospital from the ER after having an episode of syncope when he went to see his Betsey was admitted in the hospital. After that time he was then sent to the rehab for 10 days. He was treated for SIADH with salt tablets along with water restriction, hypomagnesemia, questionable stroke and delirium. At home he is doing much better right now. It is taking a lot of time for him to get back to being almost normal. He is getting 24-hour care at home from members of the family and overall in a stable state. He was supposed to be using walker but he was carrying his walker around so was asked to stop it. REVIEW OF SYSTEMS See HPI. PAST MEDICAL HISTORY 03/11/2016: Abdominal aortic aneurysm without rupture (HCC) Comment: Sees Dr. Singh 12/13/2019: Benign prostatic hyperplasia with urinary hesitancy Comment: Had 10h of urinary retention, Voided x2 since chang removed but small volume Begun on flomax 12/11 Obtain postvoid residual to ensure no overflow incontinence 08/20/2018: Bilateral carotid artery stenosis 08/31/2010: Celiac disease 09/08/2013: Disorders of bursae and tendons in shoulder region, unspecified No date: Diverticulosis of large intestine 02/10/2021: Elevated hemoglobin A1c 02/02/2018: Hypertension, essential 05/05/2008: Internal hemorrhoids without mention of complication 11/30/2010: Mixed hyperlipidemia 02/25/2016: Peripheral vascular disease (HCC) 02/10/2021: Stage 3a chronic kidney disease (HCC) 03/2023: Stroke, Ischemic - Right Parietal, Right Temporal-Occipital, Middle Cerebral Peduncle AND Right Cerebellar 02/14/2022: Synovial cyst of right popliteal space 04/06/2009: Vitamin D deficiency PAST SURGICAL HISTORY 11/2019: ABD AORTA ANEURYSM REPAIR 03/23/2004: COLONOSCOPY FLX DX W/COLLJ SPEC WHEN PFRMD Comment: Colonoscopy 05/05/2008: COLONOSCOPY FLX DX W/COLLJ SPEC WHEN PFRMD Comment: Colonoscopy, repeat 10 yrs 04/14/2004: PAST SURGICAL HISTORY OF Comment: excision of lesion neck 02/21/1992: PAST SURGICAL HISTORY OF Comment: lesion removed from rectum ALLERGIES Gluten MEDICATIONS fludrocortisone (FLORINEF) 0.1 mg tabletTake 0.1 mg by mouth once daily.Disp: Rfl: QUEtiapine (SEROQUEL) 25 mg tabletTake 1 tablet by mouth three times a day as needed.Disp: 20 tabletRfl: 0 clopidogrel (PLAVIX) 75 mg tabletTake 1 tablet by mouth once daily.Disp: 30 tabletRfl: 11 atorvastatin (LIPITOR) 40 mg tabletTake 1 tablet by mouth daily at bedtime.Disp: 90 tabletRfl: 3 tamsulosin (FLOMAX) 0.4 mgTake 1 capsule by mouth once daily.Disp: 90 capsuleRfl: 3 hydrocortisone 2.5 % ointmentApply to itchy areas once dailyDisp: 454 gRfl: 1 amLODIPine (NORVASC) 5 mg tabletTake 1 tablet in the AM and 1/2 tablet in the PM.Disp: 135 tabletRfl: 3 cholecalciferol (VITAMIN D3) 5,000 unit tabTake 1 tablet by mouth once daily.Disp: Rfl: testosterone 100 mg/ml cream (CPD)Apply 0.5 mL to affected area once daily for 180 days.Disp: 60 mLRfl: 1 (Patient not taking: Reported on 05/20/2024) metoprolol tartrate, short acting, (LOPRESSOR) 50 mg tabletTake 1 tablet by mouth two times a day.Disp: 180 tabletRfl: 3 (Patient not taking: Reported on 05/20/2024) MEDICATION, NON-DATABASEAlgae CalDisp: Rfl: (Patient not taking: Reported on 05/20/2024) Oil of Or (more content not included)... Normal [facility] HEADINGS,SERGO Suárez ([id number]) 1935 M Date Time Provider Department 05/20/24 KEZIA DUBOSE INTWS During your visit today, we recorded the following information about you: Louisa Platt RN 05/20/2024 10:38 AM Signed Daughter calls with a couple updates prior to appointment this afternoon. Daughter reports that delirium is better than previously so patient feels everything is going to go back to normal. Daughter wants provider to be aware that patient still has desire and intent to drive. Asking if provider could reinforce that he needs an assessment before he is able to drive again. Currently family has keys hidden. Patient is also on [facility] but patient is not aware of this. Family feels he is not in the right state of mind to have this information and asks that at appointment it not be mentioned. Passing information on as requested. No information given to daughter as only listed as emergency contact. Daughter bringing patient to appointment. SESAR Gray Chitra, MD 05/20/2024 5:22 PM Signed Kezia Moreira MD Allergies As of Date: 05/20/2024 Noted Allergy Reaction GLUTEN 09/23/2011 6 - Diarrhea Comments: Upset stomach Gas build up Date Reviewed: 05/20/2024 Reviewed by: Laura Ambrocio LPN - Fully Assessed Reason for Visit: Patient Update [1234] Prescriptions as of 05/20/2024 - fludrocortisone (FLORINEF) 0.1 mg tablet Take 0.1 mg by mouth once daily. - QUEtiapine (SEROQUEL) 25 mg tablet Take 1 tablet by mouth three times a day as needed. - clopidogrel (PLAVIX) 75 mg tablet Take 1 tablet by mouth once daily. - testosterone 100 mg/ml cream (CPD) Apply 0.5 mL to affected area once daily for 180 days. - atorvastatin (LIPITOR) 40 mg tablet Take 1 tablet by mouth daily at bedtime. - tamsulosin (FLOMAX) 0.4 mg Take 1 capsule by mouth once daily. - hydrocortisone 2.5 % ointment Apply to itchy areas once daily - metoprolol tartrate, short acting, (LOPRESSOR) 50 mg tablet Take 1 tablet by mouth two times a day. - MEDICATION, NON-DATABASE Algae Jared - Oil of Oregano [address] 60 [address] ([employer]) Take 1 softgel daily, with meals. - Saccharomyces Boulardii 60 ct. (Klaire/Prothera) Take 1 capsule by mouth two times a day with meals. - COQ10, UBIQUINOL, ORAL Take by mouth. - amLODIPine (NORVASC) 5 mg tablet Take 1 tablet in the AM and 1/2 tablet in the PM. - cholecalciferol (VITAMIN D3) 5,000 unit tab Take 1 tablet by mouth once daily. Facility-Administered Medications as of 05/20/2024 - perflutren lipid microspheres 1.3 mL in NaCl (PF) 0.9% 10 mL injection (DEFINITY) - sodium chloride 0.9 % (flush) 10 mL (BD POSIFLUSH) Meds Comments as of 02/01/2021: Magnesium once daily, Maxxum 4 multi-vitamin po bid -(Maria Luisa Pulse NAC, CO-Q-10 + PQQ), Methyl-Folate - 400 mcg daily, , Aqua Micki HP9 - 1 tsp bid and JarroSil 4 mg daily. 02/01/21 Aqua Fora 2 tablespoons daily Problem List As Of Date 05/20/2024 Noted Resolved Diverticulosis of large intestine [K57.30] Diarrhea [R19.7] 05/05/2008 Internal hemorrhoids without mention of complic*05/05/2008 Vitamin D deficiency [E55.9] 04/06/2009 Celiac disease [K90.0] 08/31/2010 Mixed hyperlipidemia [E78.2] 11/30/2010 Right shoulder pain [M25.511] 09/08/2013 09/18/2014 Disorders of bursae and tendons in shoulder reg*09/08/2013 Peripheral vascular disease (HCC) [I73.9] 02/25/2016 Abdominal aortic aneurysm without rupture (HCC)*03/11/2016 Medicare annual wellness visit, subsequent [Z00*02/08/2017 Neck pain, chronic [M54.2, G89.29] 04/25/2017 Hypertension, essential [I10] 02/02/2018 Bilateral carotid artery stenosis [I65.23] 08/20/2018 Benign prostatic hyperplasia with urinary hesit*12/13/2019 Stage 3 chronic kidney disease (HCC) [N18.30] 02/10/2021 Elevated hemoglobin A1c [R73.09] 02/10/2021 Acute diarrhea [R19.7] 03/01/2021 Hyponatremia [E87.1] 03/01/2021 Hypokalemia [E87.6] 03/02/2021 Severe protein-calorie malnutrition (HCC) [E43] 03/04/2021 Synovial cyst of right popliteal space [M71.21] 02/14/2022 Nonrheumatic aortic valve insufficiency, modera*03/02/2023 Acute ischemic stroke (HCC) [I63.9] 04/04/2023 Rib fractures [S22.49XA] 04/04/2023 Traumatic pneumothorax [S27.0XXA] 04/04/2023 04/06/2023 Cerebrovascular accident (CVA) (HCC) [I63.9] 06/23/2023 Encounter Status:Closed by KEZIA DUBOSE on 05/20/[address] [facility] Magnesium SerPl-mCncon 05-20 Magnesium [Mass/Vol] 2.0 mg/dL Normal 1.7-2.3 [facility] Comment on above: Order Comment: Speci men Type: BLOOD SPECIMEN Ordering Facility: [facility] Address: [address] [place] [address] [place] [address] Performed By: #### 1 9123-9 #### [facility] CLIA [id number] [address] [place] [address] [place] TESTOSTERONE BIOAVAILABLEon 05-20-2024 Albumin [Mass/Vol] 3.8 g/dL Low 3.9-4.9 [facility] Comment on above: Order Comment: Speci men Type: BLOOD SPECIMEN Ordering Facility: [facility] Address: [address] [place] [address] Performed By: #### Casandra DOUGHERTYO, 66139-9, 6-3 #### [facility] CLIA [id number] [address] [place] [address] [place] Sex hormone binding globulin [Moles/Vol] 83 nmol/L High 14-[address] [facility] Comment on above: Order Comment: Speci men Type: BLOOD SPECIMEN Ordering Facility: [facility] Address: [address] [place] [address] Performed By: #### Casandra DOUGHERTYO, 03060-9, 6-3 #### [facility] CLIA [id number] [address] [place] [address] [place] Testosterone [Mass/Vol] 355 ng/dL Normal 193-[address] [facility] Comment on above: Order Comment: Speci men Type: BLOOD SPECIMEN Ordering Facility: [facility] Address: [address] [place] [address] Result Comment: A te stosterone level in the 193-320 ng/dL range with associated clinical symptoms is considered low and may indicate hypogonadism (from NEJ 2010 363:123-135). Results >320 ng/dL are considered normal. Performed By: #### Casandra DOUGHERTYO, 22592-4, 6-3 #### [facility] CLIA [id number] [address] [place] [address] [place] TSTBIO 87.2 ng/dL Low 105.0-324.[address] [facility] Comment on above: Order Comment: Speci men Type: BLOOD SPECIMEN Ordering Facility: [facility] Address: [address] [place] [address] Performed By: #### Casandra TESTO, 36797-7, 3016-3 #### [facility] CLIA [id number] [address] [place] [address] [place] TSTFRC 36.4 pg/mL Low 38.0-120.[address] [facility] Comment on above: Order Comment: Speci men Type: BLOOD SPECIMEN Ordering Facility: [facility] Address: [address] [place] [address] Performed By: #### Casandra TESTO, 02020-5, 3016-3 #### [facility] CLIA [id number] [address] [place] [address] [place] TSTFRP 1.0 % Low 1.1-2.[address] [facility] Comment on above: Order Comment: Speci men Type: BLOOD SPECIMEN Ordering Facility: [facility] Address: [address] [place] [address] Performed By: #### Casandra TESTO, 91971-8, 3016-3 #### [facility] CLIA [id number] [address] [place] [address] [place] TSH SerPl-aCncon 05-20-2024 TSH Qn 2.590 m[IU]/L Normal 0.270-4.[address] [facility] Comment on above: Order Comment: Speci men Type: BLOOD SPECIMEN Ordering Facility: [facility] Address: [address] [place] [address] Performed By: #### Casandra TESTO, 49919-2, 3016-3 #### [facility] CLIA [id number] [address] [place] [address] [place] CNPNon 04-25-2024 CNPN Telephone (INTMWS) HEADINGS,SERGO Suárez ([id number]) 1935 M Date Time Provider Department 04/25/24 KEZIA DUBOSE During your visit today, we recorded the following information about you: Ranjana Godinez RN 04/25/2024 12:27 PM Signed Patient's daughter calls and states that patient is continuing with his delirium. Daughter asking if there are any other testing that can be done? 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 Daughter states that they have been trying to get sodium in patient's diet. Daughter asking how long should it take until they start seeing some improvement? Daughter also asking if there is any way patient can be placed in a skilled unit so that he can be monitored? Please review and advise, SESAR Joyner Stephanie, RN 04/25/2024 3:44 PM Signed Patient's daughter calls back and is asking if provider advised on below. Daughter also asking if there is home nursing that can come into home to draw labs? Patient still confused. Please review and advise, SESAR Joyner Mary, LPN 04/25/2024 4:46 PM Signed Called and spoke to patients daughter Kesha, patient is eating and drinking, drank around 44 ounces of broth with liquid nutrition since this morning. Urinating 3 to 4 times, gait is unsteady. Kesha called [facility] licensed social worker and they are going to work on patient getting placed into TCU at [facility] either tomorrow or Monday. feed in worker stated may need a referral from Dr Dubose. Daughter asking if patient can take a sodium tablet? Betsey Collado LPN April 25, 2024 4:44 PM Kezia Dubose MD 04/25/2024 5:56 PM Signed Yes absolutely, patient can take sodium tablet. Would it be possible for her to come tomorrow morning to get the labs done because we need to know what is happening with his sodium and his hydration. Regards, Deyanira Chaidez MD, RN 04/25/2024 7:31 PM Signed Spoke with patient's daughter, Kesha. Given message from provider's office. She is hoping for TCU admission tomorrow and will call back with update. Deyanira Jose, Kezia Iraheta MD 04/26/2024 11:46 AM Signed Thank you, waiting for the response for them Regards, Ranjana Young MD, RN 04/27/2024 9:56 AM Signed Patient admitted to [facility] TCU 04/26/2024. SESAR Joyner Stephanie, RN 04/27/2024 10:46 AM Signed Kesha calls with patient update. Patient currently is at TCU at [facility]. Insurance improved for him to be there till the . Patient continues with delirium, but daughter hopes that he will start improving. Ranjana Godinez RN Allergies As of Date: 04/25/2024 Noted Allergy Reaction GLUTEN 09/23/2011 6 - Diarrhea Comments: Upset stomach Gas build up Date Reviewed: 04/24/2024 Reviewed by: Peg De Jesus MA - Fully Assessed Reason for Visit: Patient Question [2227] Prescriptions as of 04/27/2024 - QUEtiapine (SEROQUEL) 25 mg tablet Take 1 tablet by mouth three times a day as needed. - clopidogrel (PLAVIX) 75 mg tablet Take 1 tablet by mouth once daily. - testosterone 100 mg/ml cream (CPD) Apply 0.5 mL to affected area once daily for 180 days. - LORazepam (ATIVAN) 0.5 mg Take 1 tablet by mouth three times a day as needed (anxiety) for up to 14 days. - atorvastatin (LIPITOR) 40 mg tablet Take 1 tablet by mouth daily at bedtime. - tamsulosin (FLOMAX) 0.4 mg Take 1 capsule by mouth once daily. - hydrocortisone 2.5 % ointment Apply to itchy areas once daily - metoprolol tartrate, short acting, (LOPRESSOR) 50 mg tablet Take 1 tablet by mouth two times a day. - MEDICATION, NON-DATABASE Algae Jared - Oil of Oregano [address] mg[address] 60 [address] ([employer]) Take 1 softgel daily, with meals. - Saccharomyces Boulardii 60 ct. (Klaire/Prothera) Take 1 capsule by mouth two times a day with meals. - COQ10, UBIQUINOL, ORAL Take by mouth. - amLODIPine (NORVASC) 5 mg tablet Take 1 tablet in the AM and 1/2 tablet in the PM. - cholecalciferol (VITAMIN D3) 5,000 unit tab Take 1 tablet by mouth once daily. Facility-Administered Medications as of 04/27/2024 - perflutren lipid microspheres 1.3 mL in NaCl (PF) 0.9% 10 mL injection (DEFINITY) - sodium chloride 0.9 % (flush) 10 mL (BD POSIFLUSH) Meds Comments as of 02/01/2021: Magnesium once daily, Maxxum 4 multi-vitamin po bid -(Maria Luisa Pulse NAC, CO-Q-10 + PQQ), Methyl-Folate - 400 mcg daily, , Aqua Micki HP9 - 1 tsp bid and JarroSil 4 mg daily. 02/01/21 Aqua Fora 2 tablespoons daily Problem List As Of Date 04/25/2024 Noted Resolved Diverticulosis of large intestine [K57.30] Diarrhea [R19.7] 05/05/2008 Internal hemorrhoids without mention of complic*05/05/2008 Vitamin D deficiency [E55.9] 04/06/2009 Celiac disease [K90.0] 08/31/2010 Mixed hyperlipidemia [E78.2] 11/30/2010 Right shoulder pain [M25.511] 09/08/201308/26 (more content not included)... Normal [facility] CNOVon 04-24-2024 CNOV Office Visit (INTMWS ) HEADINGS,SERGO Kamini ([id number]) 1935 M Date Time Provider Department 04/24/24 3:00 PM KEZIA DUBOSE INTMWS During your visit today, we recorded the following information about you: Pulse Respiration Blood pressure 80/minute 16/minute 128/64 Kezia Dubose MD 04/24/2024 5:47 PM Signed CC: Patient presents with: Hospital F/U: HPI Sergo Suárez Headings is a 88 year old male h/o stroke 2022, Hypertension, hyperlipidemia, collagenase colitis with concerns for dehydration as he tolerates very small variety of foods. Eating anything that he does not tolerate will give him diarrhea and with his age he is very prone to dehydration which is very concerning for him and his 04/24/2025: Sergo was in the ER for an episode of being unresponsive for couple of minutes along with vomiting. He was visiting his in the hospital when this happened. ED workup was done immediately as he was within the hospital for Misys. His CT was negative for any intracranial process. The fact they found foci of encephalomalacia within the right frontal and right parietal occipital lobes that was consistent with old infarcts. They did find sodium to be only 120.. He was found to be orthostatic and was hydrated. He was offered an echo which he did not want to get them. They started Zoloft on him which could cause hyponatremia but family did not give him the medication. She has been having some type of sundowning behaviors Sleeping at night without interruptions, got 10 hours of sleep last night. REVIEW OF SYSTEMS See HPI. PAST MEDICAL HISTORY 03/11/2016: Abdominal aortic aneurysm without rupture (HCC) Comment: Sees Dr. Singh 12/13/2019: Benign prostatic hyperplasia with urinary hesitancy Comment: Had 10h of urinary retention, Voided x2 since chang removed but small volume Begun on flomax 12/11 Obtain postvoid residual to ensure no overflow incontinence 08/20/2018: Bilateral carotid artery stenosis 08/31/2010: Celiac disease 09/08/2013: Disorders of bursae and tendons in shoulder region, unspecified No date: Diverticulosis of large intestine 02/10/2021: Elevated hemoglobin A1c 02/02/2018: Hypertension, essential 05/05/2008: Internal hemorrhoids without mention of complication 11/30/2010: Mixed hyperlipidemia 02/25/2016: Peripheral vascular disease (HCC) 02/10/2021: Stage 3a chronic kidney disease (HCC) 03/2023: Stroke, Ischemic - Right Parietal, Right Temporal-Occipital, Middle Cerebral Peduncle AND Right Cerebellar 02/14/2022: Synovial cyst of right popliteal space 04/06/2009: Vitamin D deficiency PAST SURGICAL HISTORY 11/2019: ABD AORTA ANEURYSM REPAIR 03/23/2004: COLONOSCOPY FLX DX W/COLLJ SPEC WHEN PFRMD Comment: Colonoscopy 05/05/2008: COLONOSCOPY FLX DX W/COLLJ SPEC WHEN PFRMD Comment: Colonoscopy, repeat 10 yrs 04/14/2004: PAST SURGICAL HISTORY OF Comment: excision of lesion neck 02/21/1992: PAST SURGICAL HISTORY OF Comment: lesion removed from rectum ALLERGIES Gluten MEDICATIONS clopidogrel (PLAVIX) 75 mg tabletTake 1 tablet by mouth once daily.Disp: 30 tabletRfl: 11 testosterone 100 mg/ml cream (CPD)Apply 0.5 mL to affected area once daily for 180 days.Disp: 60 mLRfl: 1 LORazepam (ATIVAN) 0.5 mgTake 1 tablet by mouth three times a day as needed (anxiety) for up to 14 days.Disp: 14 tabletRfl: 1 atorvastatin (LIPITOR) 40 mg tabletTake 1 tablet by mouth daily at bedtime.Disp: 90 tabletRfl: 3 tamsulosin (FLOMAX) 0.4 mgTake 1 capsule by mouth once daily.Disp: 90 capsuleRfl: 3 hydrocortisone 2.5 % ointmentApply to itchy areas once dailyDisp: 454 gRfl: 1 MEDICATION, NON-DATABASEAlgae CalDisp: Rfl: Oil of Oregano 150 mg[address] 60 ct. ([employer])Take 1 softgel daily, with meals.Disp: Rfl: Saccharomyces Boulardii 60 ct. (Klaire/Prothera)Take 1 capsule by mouth two times a day with meals.Disp: Rfl: COQ10, UBIQUINOL, ORALTake by mouth.Disp: Rfl: amLODIPine (NORVASC) 5 mg tabletTake 1 tablet in the AM and 1/2 tablet in the PM.Disp: 135 tabletRfl: 3 cholecalciferol (VITAMIN D3) 5,000 unit tabTake 1 tablet by mouth once daily.Disp: Rfl: QUEtiapine (SEROQUEL) 25 mg tabletTake 1 tablet by mouth three times a day as needed.Disp: 20 tabletRfl: 0 metoprolol tartrate, short acting, (LOPRESSOR) 50 mg tabletTake 1 tablet by mouth two times a day.Disp: 180 tabletRfl: 3 FAMILY HISTORY Problem Relation Age of Onset Stroke Father other (lupus) Sister Diabetes Brother Diabetes Brother Social History Tobacco Use Smoking status: Never Smokeless tobacco: Never Substance Use Topics Alcohol use: No Drug use: Never PHYSICAL EXAM BP 128/64 Pulse 80 Resp 16 General Appearance: well appearing, in no acute distress, alert Eyes: PERRLA, EOM's intact, conjunctiva pink and moist, no icterus, sclera white, non-injected Lungs: Lungs clear to auscultation. No wh (more content not included)... Normal [facility] CNOVon 04-18-2024 CNOV Office Visit (INTMWS ) ADRIANNESarahSERGO Suárez ([id number]) 1935 M Date Time Provider Department 04/18/24 1:00 PM KEZIA DUBOSE INTMWS During your visit today, we recorded the following information about you: Pulse Blood pressure Weight 61/minute 118/62 66.4 kg Kezia Dubose MD 04/19/2024 6:00 PM Signed CC: Patient presents with: Recheck: 6 month follow up HPI Sergo Rosas is a 88 year old male h/o stroke 2022, Hypertension, hyperlipidemia, collagenase colitis with concerns for dehydration as he tolerates very small variety of foods. Eating anything that he does not tolerate will give him diarrhea and with his age he is very prone to dehydration which is very concerning for him and his Cannot have gluten or dairy he cannot tolerate a lot of vegetables He has been exercising well, walking 1 mile day at 3 miles an hour. Does not feel sob. Has been tolerating the statin, norvasc, plavix, metoprolol etc. Of late he has been extremely stressed with his who is having movement disorders. She jumps and she has myoclonic movements at nighttime which is very concerning for him Has been on a testosterone cream for low testosterone as ordered by an [place] provider for the past 4-5 years. Sold their house in [place] so not going to be seeing this provider anymore. Sees Dr. Mackey in [place]. Last seen over a year ago. REVIEW OF SYSTEMS See HPI. PAST MEDICAL HISTORY Diagnosis Date Abdominal aortic aneurysm without rupture (HCC) 03/11/[address] Singh Benign prostatic hyperplasia with urinary hesitancy 12/13/2019 Had 10h of urinary retention, Voided x2 since chang removed but small volume Begun on flomax 12/11 Obtain postvoid residual to ensure no overflow incontinence Bilateral carotid artery stenosis 08/20/2018 Celiac disease 08/31/2010 Disorders of bursae and tendons in shoulder region, unspecified 09/08/2013 Diverticulosis of large intestine Elevated hemoglobin A1c 02/10/2021 Hypertension, essential 02/02/2018 Internal hemorrhoids without mention of complication 05/05/2008 Mixed hyperlipidemia 11/30/2010 Peripheral vascular disease (HCC) 02/25/2016 Stage 3a chronic kidney disease (HCC) 02/10/2021 Stroke, Ischemic - Right Parietal, Right Temporal-Occipital, Middle Cerebral Peduncle AND Right Cerebellar 03/2023 Synovial cyst of right popliteal space 02/14/2022 Vitamin D deficiency 04/06/2009 PAST SURGICAL HISTORY Procedure Laterality Date ABD AORTA ANEURYSM REPAIR 11/2019 COLONOSCOPY FLX DX W/COLLJ SPEC WHEN PFRMD 03/23/2004 Colonoscopy COLONOSCOPY FLX DX W/COLLJ SPEC WHEN PFRMD 05/05/2008 Colonoscopy, repeat 10 yrs PAST SURGICAL HISTORY OF 04/14/2004 excision of lesion neck PAST SURGICAL HISTORY OF 02/21/1992 lesion removed from rectum ALLERGIES Gluten MEDICATIONS tamsulosin (FLOMAX) 0.4 mgTake 1 capsule by mouth once daily.Disp: 90 capsuleRfl: 3 hydrocortisone 2.5 % ointmentApply to itchy areas once dailyDisp: 454 gRfl: 1 metoprolol tartrate, short acting, (LOPRESSOR) 50 mg tabletTake 1 tablet by mouth two times a day.Disp: 180 tabletRfl: 3 MEDICATION, NON-DATABASEAlgae CalDisp: Rfl: Oil of Oregano [address] mg[address] ([employer])Take 1 softgel daily, with meals.Disp: Rfl: Saccharomyces Boulardii 60 ct. (Klaire/Prothera)Take 1 capsule by mouth two times a day with meals.Disp: Rfl: COQ10, UBIQUINOL, ORALTake by mouth.Disp: Rfl: amLODIPine (NORVASC) 5 mg tabletTake 1 tablet in the AM and 1/2 tablet in the PM.Disp: 135 tabletRfl: 3 atorvastatin (LIPITOR) 40 mg tabletTake 1 tablet by mouth daily at bedtime.Disp: 90 tabletRfl: 3 testosterone 100 mg/ml cream (CPD)Apply 0.5 mL to affected area once daily.Disp: Rfl: clopidogrel (PLAVIX) 75 mg tabletTake 1 tablet by mouth once daily.Disp: 30 tabletRfl: 11 cholecalciferol (VITAMIN D3) 5,000 unit tabTake 1 tablet by mouth once daily.Disp: Rfl: FAMILY HISTORY Problem Relation Age of Onset Stroke Father other (lupus) Sister Diabetes Brother Diabetes Brother Social History Tobacco Use Smoking status: Never Smokeless tobacco: Never Substance Use Topics Alcohol use: No Drug use: Never PHYSICAL EXAM BP 118/62 (BP Site: Left Arm) Pulse 61 Wt 66.4 kg (146 lb 6.4 oz) SpO2 98% BMI 22.26 kg/m? General Appearance: well appearing, in no acute distress, alert Eyes: PERRLA, EOM's intact, conjunctiva pink and moist, no icterus, sclera white, non-injected Lungs: Lungs clear to auscultation. No wheezing, rhonchi, rales. Heart: RRR without murmur, gallop, or rubs. No ectopy Health maintenance reviewed with patient: Depression Screening Never done Anxiety Screening Never done Shingrix Vaccine(1 of 2) due on 06/26/2024 RSV Vaccine(1 - 1-dose 60+ series) due on 10/02/2024 Influenza Vaccine(1) due on 05/26/2024 DTaP,Tdap,Td Vaccine(4 - Tdap) due on 04/04/2026 Diabetes Screening (more content not included)... Normal [facility] TESTOSTERONE, FREE AND TOTAL on 04-18-2024 TESTOSTERONE, FREE, S 3.79 ng/dL Normal 2.69-9.61 [facility] Comment on above: Order Comment: Speci men Type: BLOOD SPECIMEN Ordering Facility: [facility] Address: [address], [place] [address] Result Comment: ADDITIONAL INFORMATION This test was developed and its performance characteristics determined by [facility] in a manner consistent with CLIA requirements. This test has not been cleared or approved by the U.S. Food and Drug Administration. Performed By: #### C SRIDHARAGM #### [facility] CLIA [id number] [address] [place] [address] TESTOSTERONE, TOTAL, S 289 ng/dL Normal 240-[address] [facility] Comment on above: Order Comment: Speci men Type: BLOOD SPECIMEN Ordering Facility: [facility] Address: [address] [place] [address] Result Comment: ADDITIONAL INFORMATION Testing performed by Liquid Chromatography-Tandem Mass Spectrometry (LC-MS/MS). This test was developed and its performance characteristics determined by [facility] in a manner consistent with CLIA requirements. This test has not been cleared or approved by the U.S. Food and Drug Administration. Test Performed by: [facility] [place] [address] Beef Specialist: Emelyn Beckham Ph.D.; CLIA# [id number] Performed By: #### C NDAGM #### [facility] CLIA [id number] [address] [place] [address] CNCOon 04-11-2024 CNCO Letter Text Normal [facility] CNOVon 04-09-2024 CNOV Office Visit (INTMWS ) SERGO ROSAS ([id number]) 1935 M Date Time Provider Department 04/09/24 12:00 PM KEZIA DUBOSE INTMWS During your visit today, we recorded the following information about you: Kezia Dubose MD 04/12/2024 4:59 PM Signed CC: Patient presents with: F/U HTN 6 Month HPI Sergo E Headings is a 88 year old male who presents today for blood pressure. Was told by insurance to come in as he had a few BP readings of 100s/low 50s but not typically. Also was asymptomatic with these readings but does not remember what time of day they were taken. He is here with his and his daughter. His is having acute jerking movements for which everybody is stressed out and she has been sent to the ER. Patient was seen putting his head down and saying that he is feeling very tired of what is happening with his and himself and wishing that he was not around. He is very stressed out today. The nurses could not get a proper intake on him. HTN: Mr. Rosas indicates that he is feeling well and denies any symptoms referable to elevated blood pressure. Specifically denies headache, chest pain, palpitations, dyspnea, and peripheral edema. Patient denies any side effects of his medication(s) and is compliant with their regimen. He does check BP's away from this office with average BP's in the 110s-120s/60s range. Sergo hikes often and walks without difficulty. He watches his diet for sodium, low fat and low cholesterol most of the time. Last 3 Encounter BP Readings: Date: BP: 2024 132/66 2024 130/57 10/02/2023 124/62 Has been on a testosterone cream for low testosterone as ordered by an [place] provider for the past 4-5 years. Sold their house in [place] so not going to be seeing this provider anymore. Sees Dr. Mackey in [place]. Last seen over a year ago. REVIEW OF SYSTEMS See HPI. PAST MEDICAL HISTORY Diagnosis Date Abdominal aortic aneurysm without rupture (HCC) 03/11/[address] Singh Benign prostatic hyperplasia with urinary hesitancy 12/13/2019 Had 10h of urinary retention, Voided x2 since chang removed but small volume Begun on flomax 12/11 Obtain postvoid residual to ensure no overflow incontinence Bilateral carotid artery stenosis 08/20/2018 Celiac disease 08/31/2010 Disorders of bursae and tendons in shoulder region, unspecified 09/08/2013 Diverticulosis of large intestine Elevated hemoglobin A1c 02/10/2021 Hypertension, essential 02/02/2018 Internal hemorrhoids without mention of complication 05/05/2008 Mixed hyperlipidemia 11/30/2010 Peripheral vascular disease (HCC) 02/25/2016 Stage 3a chronic kidney disease (HCC) 02/10/2021 Stroke, Ischemic - Right Parietal, Right Temporal-Occipital, Middle Cerebral Peduncle AND Right Cerebellar 03/2023 Synovial cyst of right popliteal space 02/14/2022 Vitamin D deficiency 04/06/2009 PAST SURGICAL HISTORY Procedure Laterality Date ABD AORTA ANEURYSM REPAIR 11/2019 COLONOSCOPY FLX DX W/COLLJ SPEC WHEN PFRMD 03/23/2004 Colonoscopy COLONOSCOPY FLX DX W/COLLJ SPEC WHEN PFRMD 05/05/2008 Colonoscopy, repeat 10 yrs PAST SURGICAL HISTORY OF 04/14/2004 excision of lesion neck PAST SURGICAL HISTORY OF 02/21/1992 lesion removed from rectum ALLERGIES Gluten MEDICATIONS tamsulosin (FLOMAX) 0.4 mgTake 1 capsule by mouth once daily.Disp: 90 capsuleRfl: 3 hydrocortisone 2.5 % ointmentApply to itchy areas once dailyDisp: 454 gRfl: 1 metoprolol tartrate, short acting, (LOPRESSOR) 50 mg tabletTake 1 tablet by mouth two times a day.Disp: 180 tabletRfl: 3 MEDICATION, NON-DATABASEAlgae CalDisp: Rfl: Oil of Oregano 150 mg[address] ([employer])Take 1 softgel daily, with meals.Disp: Rfl: Saccharomyces Boulardii 60 ct. (Klaire/Prothera)Take 1 capsule by mouth two times a day with meals.Disp: Rfl: COQ10, UBIQUINOL, ORALTake by mouth.Disp: Rfl: amLODIPine (NORVASC) 5 mg tabletTake 1 tablet in the AM and 1/2 tablet in the PM.Disp: 135 tabletRfl: 3 magnesium chloride (MAG64) [address] tabletTAKE 2 TABLETS BY MOUTH EVERY DAYDisp: 60 tabletRfl: 3 atorvastatin (LIPITOR) 40 mg tabletTake 1 tablet by mouth daily at bedtime.Disp: 90 tabletRfl: 3 testosterone 100 mg/ml cream (CPD)Apply 0.5 mL to affected area once daily.Disp: Rfl: clopidogrel (PLAVIX) 75 mg tabletTake 1 tablet by mouth once daily.Disp: 30 tabletRfl: 11 cholecalciferol (VITAMIN D3) 5,000 unit tabTake 1 tablet by mouth once daily.Disp: Rfl: FAMILY HISTORY Problem Relation Age of Onset Stroke Father other (lupus) Sister Diabetes Brother Diabetes Brother Social History Tobacco Use Smoking status: Never Smokeless tobacco: Never Substance Use Topics Alcohol use: No Drug use: Never PHYSICAL EXAM There were no vitals taken for this visit. General Appearance: well appearing, in no acute distress, alert Eyes: PERRLA (more content not included)... Normal [facility] CHARISSA ALBICANS ABS, IGA,IG G,IGMon 03-27-2024 CHARISSA ALBICANS AB, IGA 2.03 EV High <=0.[address] [facility] Comment on above: Order Comment: Speci santos Type: BLOOD SPECIMEN Ordering Facility: [facility] Address: [address] [place] [address] Result Comment: INTE RPRETIVE INFORMATION: Charissa Ab, IgA 0.88 EV or less: ....... Negative - No significant level of detectable Charissa albicans antibody. 0.89-0.99 EV: .......... Equivocal - Questionable presence of antibodies. Repeat testing in 10-14 days may be helpful. 1.00 EV or greater: .... Positive - Antibody to Charissa albicans detected, which may indicate a current or past infection. The best evidence for current infection is a significant change on two appropriately timed specimens where both tests are done in the same laboratory at the same time. However, low levels of IgM antibodies may occasionally persist for more than 12 months post-infection. This test was developed and its performance characteristics determined by [facility]. It has not been cleared or approved by the US Food and Drug Administration. This test was performed in a CLIA certified laboratory and is intended for clinical purposes. Performed By: #### C NDAGM #### [facility] CLIA [id number] [address] [place] [address] CHARISSA ALBICANS AB, IGG 1.01 EV High <=0.[address] [facility] Comment on above: Order Comment: Shani graham Type: BLOOD SPECIMEN Ordering Facility: [facility] Address: [address] [id number] Result Comment: INTE RPRETIVE INFORMATION: Charissa Ab, IgG 0.88 EV or less: ....... Negative - No significant level of detectable Charissa albicans antibody. 0.89-0.99 EV: .......... Equivocal - Questionable presence of antibodies. Repeat testing in 10-14 days may be helpful. 1.00 EV or greater: .... Positive - Antibody to Charissa albicans detected, which may indicate a current or past infection. The best evidence for current infection is a significant change on two appropriately timed specimens where both tests are done in the same laboratory at the same time. However, low levels of IgM antibodies may occasionally persist for more than 12 months post-infection. This test was developed and its performance characteristics determined by [facility]. It has not been cleared or approved by the US Food and Drug Administration. This test was performed in a CLIA certified laboratory and is intended for clinical purposes. Performed By: #### C NDAGM #### [facility] CLIA [id number] [address] [place] [address] CHARISSA ALBICANS AB, IGM 0.40 EV Normal <=0.[address] [facility] Comment on above: Order Comment: Speci men Type: BLOOD SPECIMEN Ordering Facility: [facility] Address: [address] [place] [address] Result Comment: INTE RPRETIVE INFORMATION: Charissa Ab, IgM 0.88 EV or less: ....... Negative - No significant level of detectable Charissa albicans antibody. 0.89-0.99 EV: .......... Equivocal - Questionable presence of antibodies. Repeat testing in 10-14 days may be helpful. 1.00 EV or greater: .... Positive - Antibody to Charissa albicans detected, which may indicate a current or past infection. The best evidence for current infection is a significant change on two appropriately timed specimens where both tests are done in the same laboratory at the same time. However, low levels of IgM antibodies may occasionally persist for more than 12 months post-infection. This test was developed and its performance characteristics determined by [facility]. It has not been cleared or approved by the US Food and Drug Administration. This test was performed in a CLIA certified laboratory and is intended for clinical purposes. Performed By: [facility] [address] [place] [address] Chief Nurse Anesthetist: Cal Bailey MD, PhD CLIA Number: [id number] Performed By: #### C NDAGM #### [facility] CLIA [id number] [address] [place], [place] [id number] CBC panel Auto (Bld)on 03-27 Erythrocyte distribution width (RBC) [Ratio] 15.8 % High 11.5-15.[address] [facility] Comment on above: Order Comment: Speci men Type: BLOOD SPECIMENOrdering Facility: [facility] Address: [address] [place] [address] Performed By: #### 5 8410-2 ####[facility] LABIA [id number] [place] [address] [place] Hematocrit (Bld) [Volume fraction] 33.7 % Low 39.0-51.[address] [facility] Comment on above: Order Comment: Speci men Type: BLOOD SPECIMENOrdering Facility: [facility] Address: [address] [place] [address] Performed By: #### 5 8410-2 ####[facility] LABCLIA [id number] [place] [address] [place] Hemoglobin (Bld) [Mass/Vol] 11.3 g/dL Low 13.0-17.[address] [facility] Comment on above: Order Comment: Speci men Type: BLOOD SPECIMENOrdering Facility: [facility] Address: [address] [place] [address] Performed By: #### 5 8410-2 ####[facility] LABIA [id number] [place] [address] [place] MCH (RBC) [Entitic mass] 30.1 pg Normal 26.0-34.[address] [facility] Comment on above: Order Comment: Speci men Type: BLOOD SPECIMENOrdering Facility: [facility] Address: [address] [place] [address] Performed By: #### 5 8410-2 ####[facility] LABCLIA [id number] [place] [address] [place] MCHC (RBC) [Mass/Vol] 33.5 g/dL Normal 30.5-36.0 [facility] Comment on above: Order Comment: Speci men Type: BLOOD SPECIMENOrdering Facility: [facility] Address: [address] [place] [address] Performed By: #### 5 8410-2 ####[facility] [id number] [place] [address] [place] MCV (RBC) [Entitic vol] 89.9 fL Normal 80.0-100.[address] [facility] Comment on above: Order Comment: Speci men Type: BLOOD SPECIMENOrdering Facility: [facility] Address: [address] [place] [address] Performed By: #### 5 8410-2 ####[facility] [id number] [place] [address] [place] Nucleated RBC (Bld) [#/Vol] 10*3/uL Normal <0.[address] [facility] Comment on above: Order Comment: Speci men Type: BLOOD SPECIMENOrdering Facility: [facility] Address: [address] [place] [address] Performed By: #### 5 8410-2 ####[facility] [id number] [place] [address] [place] Platelet mean volume (Bld) [Entitic vol] 10.4 fL Normal 9.0-12.[address] [facility] Comment on above: Order Comment: Speci men Type: BLOOD SPECIMENOrdering Facility: [facility] Address: [address] [place] [address] Performed By: #### 5 8410-2 ####[facility]IA [id number] [place] [address] [place] Platelets (Bld) [#/Vol] 226 10*3/uL Normal 150-[address] [facility] Comment on above: Order Comment: Speci men Type: BLOOD SPECIMENOrdering Facility: [facility] Address: [address] [place] [address] Performed By: #### 5 8410-2 ####[facility] LABCLIA [id number] [address] [address] [place] RBC (Bld) [#/Vol] 3.75 10*6/uL Low 4.20-6.00 [facility] Comment on above: Order Comment: Speci men Type: BLOOD SPECIMENOrdering Facility: [facility] Address: [address] [place] [address] Performed By: #### 5 8410-2 ####[facility] LABCLIA [id number] [address] [address] [place] WBC (Bld) [#/Vol] 5.28 10*3/uL Normal 3.70-11.00 [facility] Comment on above: Order Comment: Speci men Type: BLOOD SPECIMENOrdering Facility: [facility] Address: [address] [place] [address] Performed By: #### 5 8410-2 ####[facility] LABCLIA [id number] [place] [id number] [place] Comprehensive metabolic 2000 panelon 03-27-2024 Albumin [Mass/Vol] 3.7 g/dL Low 3.9-4.9 [facility] Comment on above: Order Comment: Speci men Type: BLOOD SPECIMEN Ordering Facility: [facility] Address: [address] [place] [address] Performed By: #### 2 4323-8, 37222-8, #### [facility] CLIA [id number] [address] [place] [address] [place] ALP [Catalytic activity/Vol] 63 U/L Normal 38-[address] [facility] Comment on above: Order Comment: Speci men Type: BLOOD SPECIMEN Ordering Facility: [facility] Address: [address] [place] [address] Performed By: #### 2 4323-8, 55632-8, #### [facility] CLIA [id number] [address] [place] [address] [place] ALT [Catalytic activity/Vol] 21 U/L Normal 10-[address] [facility] Comment on above: Order Comment: Speci men Type: BLOOD SPECIMEN Ordering Facility: [facility] Address: [address] [place] [address] Performed By: #### 2 4323-8, 63298-8, #### [facility] CLIA [id number] [address] [place] [address] [place] Anion gap [Moles/Vol] 8 mmol/L Normal 8-15 [facility] Comment on above: Order Comment: Speci men Type: BLOOD SPECIMEN Ordering Facility: [facility] Address: [address] [place] [address] Performed By: #### 2 4323-8, 70045-1, #### [facility] CLIA [id number] [address] [place] [address] [place] AST [Catalytic activity/Vol] 22 U/L Normal 14-40 [facility] [facility] Comment on above: Order Comment: Speci men Type: BLOOD SPECIMEN Ordering Facility: [facility] Address: [address] [place] [address] Performed By: #### 2 4323-8, 36216-8, #### [facility] CLIA [id number] [address] [place] [address] [place] Bilirubin [Mass/Vol] 0.8 mg/dL Normal 0.2-1.3 [facility] Comment on above: Order Comment: Speci men Type: BLOOD SPECIMEN Ordering Facility: [facility] Address: [address] [place] [address] Performed By: #### 2 4323-8, 66246-0, 62595-3 #### [facility] CLIA [id number] [address] [place], [place] [id number] [place] Calcium [Mass/Vol] 9.0 mg/dL Normal 8.5-10.2 [facility] Comment on above: Order Comment: Speci men Type: BLOOD SPECIMEN Ordering Facility: [facility] Address: [address] [place] [address] Performed By: #### 2 4323-8, 61645-8, #### [facility] CLIA [id number] [address] [place] [address] [place] Chloride [Moles/Vol] 92 mmol/L Low 98-107 [facility] Comment on above: Order Comment: Speci men Type: BLOOD SPECIMEN Ordering Facility: [facility] Address: [address] [place] [address] Performed By: #### 2 4323-8, 68581-4, #### [facility] CLIA [id number] [address] [place] [address] [place] CO2 [Moles/Vol] 25 mmol/L Normal 22-[address] [facility] Comment on above: Order Comment: Speci men Type: BLOOD SPECIMEN Ordering Facility: [facility] Address: [address] [place] [address] Performed By: #### 2 4323-8, 00779-8, #### [facility] CLIA [id number] [address] [place] [address] [place] Creatinine [Mass/Vol] 1.47 mg/dL High 0.73-1.22 [facility] Comment on above: Order Comment: Speci men Type: BLOOD SPECIMEN Ordering Facility: [facility] Address: [address] [place] [address] Performed By: #### 2 4323-8, 51251-2, #### [facility] CLIA [id number] [address] [place] [address] [place] Creatinine and Glomerular filtration rate.predicted panel (S/P/Bld) 46 mL/min/1.73m??? Low >=[address] [facility] Comment on above: Order Comment: Shani graham Type: BLOOD SPECIMEN Ordering Facility: [facility] Address: [address] [place] [address] Result Comment: Raquel mated Glomerular Filtration Rate (eGFR) is calculated using the 2020 CKD-EPI creatinine equation. This equation utilizes serum creatinine, sex, and age as parameters. The creatinine assay has traceable calibration to isotope dilution-mass spectrometry. Refer to KDIGO guidelines for clinical interpretation. In patients with unstable renal function, e.g. those with acute kidney injury, the eGFR may not accurately reflect actual GFR. Performed By: #### 2 4323-8, 90383-9, #### [facility] CLIA [id number] [address] [place] [address] [place] Glucose [Mass/Vol] 98 mg/dL Normal 74-99 [facility] Comment on above: Order Comment: Shani graham Type: BLOOD SPECIMEN Ordering Facility: [facility] Address: [address] [place] [address] Result Comment: The [place] Diabetes Association (ADA) provides guidance for cutoff values for fasting glucose and random glucose. The ADA defines fasting as no caloric intake for at least 8 hours. Fasting plasma glucose results between 100 to 125 mg/dL indicate increased risk for diabetes (prediabetes). Fasting plasma glucose results greater than or equal to 126 mg/dL meet the criteria for diagnosis of diabetes. In the absence of unequivocal hyperglycemia, results should be confirmed by repeat testing. In a patient with classic symptoms of hyperglycemia or hyperglycemic crisis, random plasma glucose results greater than or equal to 200 mg/dL meet the criteria for diagnosis of diabetes. Reference: Standards of Medical Care in Diabetes 2016, [place] Diabetes Association. Diabetes Care. 2016.39(Suppl 1). Performed By: #### 2 4323-8, 96719-3, #### [facility] CLIA [id number] [address] [place], [place] [id number] [place] Potassium [Moles/Vol] 4.6 mmol/L Normal 3.7-5.1 [facility] Comment on above: Order Comment: Speci men Type: BLOOD SPECIMEN Ordering Facility: [facility] Address: [address] [place] [address] Performed By: #### 2 4323-8, 12225-9, #### [facility] CLIA [id number] [address] [place] [address] [place] Protein [Mass/Vol] 6.4 g/dL Normal 6.3-8.0 [facility] Comment on above: Order Comment: Speci men Type: BLOOD SPECIMEN Ordering Facility: [facility] Address: [address] [place] [address] Performed By: #### 2 4323-8, 74196-4, #### [facility] CLIA [id number] [address] [place] [address] [place] Sodium [Moles/Vol] 125 mmol/L Low 136-144 [facility] Comment on above: Order Comment: Speci men Type: BLOOD SPECIMEN Ordering Facility: [facility] Address: [address] [place] [address] Performed By: #### 2 4323-8, , #### [facility] CLIA [id number] [address] [place] [address] [place] Urea nitrogen [Mass/Vol] 23 mg/dL Normal 9-[address] [facility] Comment on above: Order Comment: Speci men Type: BLOOD SPECIMEN Ordering Facility: [facility] Address: [address] [place] [address] Performed By: #### 2 4323-8, 57446-1, #### [facility] CLIA [id number] [address] [place] [address] [place] HISTAMINE BLDon 03-27-2024 HISTAMINE, WB 919 nmol/L Normal 180-[address] [facility] Comment on above: Order Comment: Speci men Type: BLOOD SPECIMEN Ordering Facility: [facility] Address: [address] [place] [address] Result Comment: INTE RPRETIVE INFORMATION: Histamine, Whole Blood This test was developed and its performance characteristics determined by [facility]. It has not been cleared or approved by the US Food and Drug Administration. This test was performed in a CLIA certified laboratory and is intended for clinical purposes. Performed By: [facility] [address] [place] [address] Chief Nurse Anesthetist: Cal Bailey MD, PhD [place] Number: [id number] Performed By: #### C NDAGM #### [facility] CLIA [id number] [address] [place] [address] HbA1c (Bld)on 03-27-2024 Average glucose Estimated from glycated hemoglobin (Bld) [Mass/Vol] 126 mg/dL Normal [facility] Comment on above: Order Comment: Shani santos Type: BLOOD SPECIMEN Ordering Facility: [facility] Address: [address] [place] [address] Result Comment: eAG: (Estimated average glucose) is a calculated value from HgbA1c and is life assurance representative of the average blood glucose level in the last 2-3 month period. Performed By: #### C NDAGM #### [id number] [address] [place] [address] HbA1c (Bld) [Mass fraction] 6.0 % High 4.3-5.[address] [facility] Comment on above: Order Comment: Shani [facility] Type: BLOOD SPECIMEN Ordering Facility: [facility] Address: [address] [place] [address] Result Comment: [place] Diabetes Association guidelines indicate that patients with HgbA1c in the range 5.7-6.4% are at increased risk for development of diabetes, and intervention by lifestyle modification may be beneficial. HgbA1c greater or equal to 6.5% is considered diagnostic of diabetes. Performed By: #### C NDAGM #### [facility] [employer] CLIA [id number] [address] [place] [address] IgG SerPl-mCncon 03-27-2024 IgG [Mass/Vol] 1173 mg/dL Normal 700-[address] [facility] Comment on above: Order Comment: Speci men Type: BLOOD SPECIMEN Ordering Facility: [facility] Address: [address] [place] [address] Performed By: #### [facility] #### [id number] [address] [place] [address] Lipid 1996 panelon 4 Cholesterol [Mass/Vol] 101 mg/dL Normal <[address] [facility] Comment on above: Order Comment: Speci men Type: BLOOD SPECIMEN Ordering Facility: [facility] Address: [address] [place] [address] Result Comment: <200 mg/dL, Desirable 200-239 mg/dL, Borderline high >239 mg/dL, High Performed By: #### 2 4323-8, 81272-6, #### [facility] CLIA [id number] [address] [place] [address] [place] Cholesterol in HDL [Mass/Vol] 44 mg/dL Normal >[address] [facility] Comment on above: Order Comment: Speci men Type: BLOOD SPECIMEN Ordering Facility: [facility] Address: [address] [place] [address] Result Comment: 40-5 9 mg/dL, Acceptable >59 mg/dL, High: Negative risk factor for coronary heart disease <40 mg/dL, Low: Positive risk factor for coronary heart disease Performed By: #### 2 4323-8, 56663-6, #### [facility] CLIA [id number] [address] [place] [address] [place] Cholesterol in LDL [Mass/Vol] 50 mg/dL Normal <[address] [facility] Comment on above: Order Comment: Speci men Type: BLOOD SPECIMEN Ordering Facility: [facility] Address: [address] [place] [address] Result Comment: <100 mg/dL, Optimal 100-129 mg/dL, Near optimal/above optimal 130-159 mg/dL, Borderline high 160-189 mg/dL, High >189 mg/dL, Very high Secondary prevention optimal LDL Cholesterol levels are recommended to be < 70 mg/dL Performed By: #### 2 4323-8, 60129-0, 37058-9 #### [facility] CLIA [id number] [address] [place] [address] [place] Cholesterol in LDL/Cholesterol in HDL [Mass ratio] 1.14 {ratio} Normal <2.[address] [facility] Comment on above: Order Comment: Shani graham Type: BLOOD SPECIMEN Ordering Facility: [facility] Address: [address] [place] [address] Result Comment: Refe rence: 1. National Cholesterol Education Program ATP III Guideline At-A-Glance Quick Desk Reference: National Heart, Lung, and Blood [place]. National Institutes of Health. 2001: NIH Publication No. 01-3305. 2. An International Atherosclerosis Society position paper: global recommendations for the management of dyslipidemia: executive summary, Atherosclerosis. 2014: 232(2):410-413. Performed By: #### 2 4323-8, 99235-8, #### [facility] CLIA [id number] [address] [place] [address] [place] Cholesterol in VLDL [Mass/Vol] 7 mg/dL Normal <[address] [facility] Comment on above: Order Comment: Shani graham Type: BLOOD SPECIMEN Ordering Facility: [facility] Address: [address] [place] [address] Performed By: #### 2 4323-8, 67662-3, #### [facility] CLIA [id number] [address] [place] [address] [place] Cholesterol non HDL [Mass/Vol] 57 mg/dL Normal <[address] [facility] Comment on above: Order Comment: Shani graham Type: BLOOD SPECIMEN Ordering Facility: [facility] Address: [address] [place] [address] Result Comment: <130 mg/dL, Optimal 130-159 mg/dL, Near optimal/above optimal 160-189 mg/dL, Borderline high 190-219 mg/dL, High >219 mg/dL, Very high Secondary prevention optimal non HDL Cholesterol levels are recommended to be <100 mg/dL Performed By: #### 2 4323-8, 50413-1, #### [facility] CLIA [id number] [address] [place] [address] [place] Cholesterol.total/Cho lesterol in HDL [Mass ratio] 2.30 {ratio} Normal <5.[address] [facility] Comment on above: Order Comment: Speci men Type: BLOOD SPECIMEN Ordering Facility: [facility] Address: [address] [place] [address] Performed By: #### 2 4323-8, 17520-7, #### [facility] CLIA [id number] [address] [place] [address] [place] FASTING TIME [address] [facility] Comment on above: Order Comment: Speci men Type: BLOOD SPECIMEN Ordering Facility: [facility] Address: [address] [place] [address] Performed By: #### 2 4323-8, 75810-5, #### [facility] CLIA [id number] [address] [place] [address] [place] Triglyceride [Mass/Vol] 37 mg/dL Normal <[address] [facility] Comment on above: Order Comment: Speci men Type: BLOOD SPECIMEN Ordering Facility: [facility] Address: [address] [place] [address] Result Comment: <150 mg/dL, Normal 150-199 mg/dL, Borderline high 200-499 mg/dL, High >499 mg/dL, Very high Performed By: #### 2 4323-8, 09101-7, #### [facility] CLIA [id number] [address] [place] [address] [place] Magnesium SerPl-mCncon 03-27 Magnesium [Mass/Vol] 2.0 mg/dL Normal 1.7-2.3 [facility] Comment on above: Order Comment: Speci men Type: BLOOD SPECIMEN Ordering Facility: [facility] Address: [address] [place] [address] Performed By: #### 2 4323-8, 51657-4, 63959-5 #### [facility] CLIA [id number] [address] [facility] [address] [id number] [address] [place] TRYPTASE BLOODon 03-27-2024 Tryptase [Mass/Vol] 12.4 ug/L High <8.4 [facility] Comment on above: Order Comment: Speci men Type: BLOOD SPECIMEN Ordering Facility: [facility] Address: [address] [place] [address] Performed By: #### C NDAGM #### [facility] CLIA [id number] [address] [place] [address] [facility] 03-01-2024 [facility] Telephone ([facility]) HEADINGS,SERGO Suárez ([id number]) 1935 M Date Time Provider Department 03/01/[address] [facility] During your visit today, we recorded the following information about you: Carolyn Baeza PA 03/01/2024 7:05 AM Signed Please let patient know his urine culture did grow bacteria indicating a UTI. He is on the appropriate antibiotic. Finish all of this medication. Follow-up with PCP for persistent symptoms. Lucas Tamayo 03/01/2024 7:10 AM Signed Talked to patient and he verbally understands he does an UTI and to cont. Antibiotics. Lucas Tamayo . Allergies As of Date: 03/01/2024 Noted Allergy Reaction GLUTEN 09/23/2011 6 - Diarrhea Comments: Upset stomach Gas build up Date Reviewed: 02/28/2024 Reviewed by: Rhonda Hill MA - Fully Assessed Reason for Visit: Results [95] Prescriptions as of 03/01/2024 - sulfamethoxazole-trim ethoprim (BACTRIM DS) 800-160 mg per tablet Take 1 tablet by mouth two times a day for 10 days. - hydrocortisone 2.5 % ointment Apply to itchy areas once daily - metoprolol tartrate, short acting, (LOPRESSOR) 50 mg tablet Take 1 tablet by mouth two times a day. - MEDICATION, NON-DATABASE Algae Jared - Oil of Oregano [address] (Manta for [employer]) Take 1 softgel daily, with meals. - Saccharomyces Boulardii 60 ct. (Klaire/Prothera) Take 1 capsule by mouth two times a day with meals. - COQ10, UBIQUINOL, ORAL Take by mouth. - amLODIPine (NORVASC) 5 mg tablet Take 1 tablet in the AM and 1/2 tablet in the PM. - magnesium chloride (MAG64) [address] tablet TAKE 2 TABLETS BY MOUTH EVERY DAY - atorvastatin (LIPITOR) 40 mg tablet Take 1 tablet by mouth daily at bedtime. - testosterone 100 mg/ml cream (CPD) Apply 0.5 mL to affected area once daily. - clopidogrel (PLAVIX) 75 mg tablet Take 1 tablet by mouth once daily. - tamsulosin (FLOMAX) 0.4 mg Take 1 capsule by mouth once daily. - cholecalciferol (VITAMIN D3) 5,000 unit tab Take 1 tablet by mouth once daily. Facility-Administered Medications as of 03/01/2024 - perflutren lipid microspheres 1.3 mL in NaCl (PF) 0.9% 10 mL injection (DEFINITY) - sodium chloride 0.9 % (flush) 10 mL (BD POSIFLUSH) Meds Comments as of 02/01/2021: Magnesium once daily, Maxxum 4 multi-vitamin po bid -(Maria Luisa Pulse NAC, CO-Q-10 + PQQ), Methyl-Folate - 400 mcg daily, , Aqua Micki HP9 - 1 tsp bid and JarroSil 4 mg daily. 02/01/21 Aqua Fora 2 tablespoons daily Problem List As Of Date 03/01/2024 Noted Resolved Diverticulosis of large intestine [K57.30] Diarrhea [R19.7] 05/05/2008 Internal hemorrhoids without mention of complic*05/05/2008 Vitamin D deficiency [E55.9] 04/06/2009 Celiac disease [K90.0] 08/31/2010 Mixed hyperlipidemia [E78.2] 11/30/2010 Right shoulder pain [M25.511] 09/08/2013 09/18/2014 Disorders of bursae and tendons in shoulder reg*09/08/2013 Peripheral vascular disease (HCC) [I73.9] 02/25/2016 Abdominal aortic aneurysm without rupture (HCC)*03/11/2016 Medicare annual wellness visit, subsequent [Z00*02/08/2017 Neck pain, chronic [M54.2, G89.29] 04/25/2017 Hypertension, essential [I10] 02/02/2018 Bilateral carotid artery stenosis [I65.23] 08/20/2018 Benign prostatic hyperplasia with urinary hesit*12/13/2019 Stage 3 chronic kidney disease (HCC) [N18.30] 02/10/2021 Elevated hemoglobin A1c [R73.09] 02/10/2021 Acute diarrhea [R19.7] 03/01/2021 Hyponatremia [E87.1] 03/01/2021 Hypokalemia [E87.6] 03/02/2021 Severe protein-calorie malnutrition (HCC) [E43] 03/04/2021 Synovial cyst of right popliteal space [M71.21] 02/14/2022 Nonrheumatic aortic valve insufficiency, modera*03/02/2023 Acute ischemic stroke (HCC) [I63.9] 04/04/2023 Rib fractures [S22.49XA] 04/04/2023 Traumatic pneumothorax [S27.0XXA] 04/04/2023 04/06/2023 Cerebrovascular accident (CVA) (HCC) [I63.9] 06/23/2023 Encounter Status:Closed by LUCAS TAMAYO on 03/01/[address] [facility] Bacteria Ur Culton 4 Bacteria identified Cx Nom (U) ORGANISM ID: 1 >=100,000 CFU/ml Proteus mirabilis ORGANISM ID: 1 (PROTEUS MIRABILIS) ------ ANTIBIOTIC INTERPRETATION JANA STATUS REFERENCE RANGE ------ Ampicillin S <=2 F Susceptible <=8 , Intermediate >8 , Resistant >16 Cefazolin S <=4 F Susceptible 0-16 , Intermediate <0 or >16 , Resistant >16 For uncomplicated urinary tract infections, cefazolin results can be used to predict susceptibility or resistance to cephalexin. Ceftriaxone S <=1 F Susceptible <=1 , Intermediate >1 , Resistant >=4 Cefepime S <=1 F Susceptible <=2 , Susceptible-Dose Dependent >2 , Resistant >=16 Ertapenem S <=0.5 F Susceptible <=0.5 , Intermediate >.5 , Resistant >1 Meropenem S <=0.25 F Susceptible <=1 , Intermediate >1 , Resistant >2 Ampicillin/Sulbact S <=2 F Susceptible <=8 , Intermediate >8 , Resistant >16 Piperacillin/Tazobac S <=4 F Susceptible <16 , Susceptible-Dose Dependent >=16 , Resistant >=32 Gentamicin S <=1 F Susceptible <=2 , Intermediate >2 , Resistant >=8 Tobramycin S <=1 F Susceptible <4 , Intermediate >=4 , Resistant >=8 Trimeth sulfameth S <=20 F Susceptible <=40 , Resistant >40 Ciprofloxacin S <=0.25 F Susceptible <0.5 , Intermediate >=.5 , Resistant >=1 Nitrofurantoin R 128 F Susceptible <=32 , Intermediate >32 , Resistant >[address] [facility] Comment on above: Performed By: #### C SRIDHARLAWR[facility] #### [facility] [id number] [address] [place] [address] CNOVon 02-28-2024 CNOV Office Visit (UCWSTR ) SERGO ROSAS ([id number]) 1935 M Date Time Provider Department 02/28/24 11:[address] [facility] During your visit today, we recorded the following information about you: Temperature Pulse Respiration Blood pressure 97.5 degrees 63/minute 21/minute 130/50 Weight 66.3 kg Kirstie Anguiano APRN.CNP 02/28/2024 12:22 PM Signed This note was created using NoteWriter. Subjective Sergo Rosas is a 89 year old male. 89 year old male with PMH CVA, HTN, hyperlipidemia, PVD, CKD presents for dysuria Acute onset one month ago +dysuria +frequency +urgency States he gets up 4 times a night Denies testicular pain or swelling Denies penile discharge Denies abdominal pain Denies flank pain. Denies fever or chills Denies hematuria. Of note, patient was seen here on 02/06/24 for same Urine culture revealed p. Mirabilis Was prescribed Keflex Denies relief of sx. The history is provided by the patient and the spouse. No foreign language professor was used. UTI This is a recurrent problem. The current episode started more than 1 week ago. The problem occurs every urination. The problem has not changed since onset.The quality of the pain is described as burning. The pain is at a severity of 5/10. The pain is mild. There has been no fever. There is No history of pyelonephritis. Associated symptoms include frequency and urgency. Pertinent negatives include no chills, no sweats, no nausea, no vomiting, no discharge, no hematuria, no hesitancy, no possible and no flank pain. Treatments tried: keflex 02/06/24. His past medical history does not include kidney stones, single kidney, urological procedure, recurrent UTIs, urinary stasis or catheterization. PAST MEDICAL HISTORY Diagnosis Date Abdominal aortic aneurysm without rupture (HCC) 03/11/[address] Singh Benign prostatic hyperplasia with urinary hesitancy 12/13/2019 Had 10h of urinary retention, Voided x2 since chang removed but small volume Begun on flomax 12/11 Obtain postvoid residual to ensure no overflow incontinence Bilateral carotid artery stenosis 08/20/2018 Celiac disease 08/31/2010 Disorders of bursae and tendons in shoulder region, unspecified 09/08/2013 Diverticulosis of large intestine Elevated hemoglobin A1c 02/10/2021 Hypertension, essential 02/02/2018 Internal hemorrhoids without mention of complication 05/05/2008 Mixed hyperlipidemia 11/30/2010 Peripheral vascular disease (HCC) 02/25/2016 Stage 3a chronic kidney disease (HCC) 02/10/2021 Stroke, Ischemic - Right Parietal, Right Temporal-Occipital, Middle Cerebral Peduncle AND Right Cerebellar 03/2023 Synovial cyst of right popliteal space 02/14/2022 Vitamin D deficiency 04/06/2009 PAST SURGICAL HISTORY Procedure Laterality Date ABD AORTA ANEURYSM REPAIR 11/2019 COLONOSCOPY FLX DX W/COLLJ SPEC WHEN PFRMD 03/23/2004 Colonoscopy COLONOSCOPY FLX DX W/COLLJ SPEC WHEN PFRMD 05/05/2008 Colonoscopy, repeat 10 yrs PAST SURGICAL HISTORY OF 04/14/2004 excision of lesion neck PAST SURGICAL HISTORY OF 02/21/1992 lesion removed from rectum ALLERGIES Gluten MEDICATIONS hydrocortisone 2.5 % ointmentApply to itchy areas once dailyDisp: 454 gRfl: 1 metoprolol tartrate, short acting, (LOPRESSOR) 50 mg tabletTake 1 tablet by mouth two times a day.Disp: 180 tabletRfl: 3 MEDICATION, NON-DATABASEAlgae CalDisp: Rfl: Oil of Oregano [address] (Manta for [employer])Take 1 softgel daily, with meals.Disp: Rfl: Saccharomyces Boulardii 60 ct. (Klaire/Prothera)Take 1 capsule by mouth two times a day with meals.Disp: Rfl: COQ10, UBIQUINOL, ORALTake by mouth.Disp: Rfl: amLODIPine (NORVASC) 5 mg tabletTake 1 tablet in the AM and 1/2 tablet in the PM.Disp: 135 tabletRfl: 3 magnesium chloride (MAG64) [address] tabletTAKE 2 TABLETS BY MOUTH EVERY DAYDisp: 60 tabletRfl: 3 atorvastatin (LIPITOR) 40 mg tabletTake 1 tablet by mouth daily at bedtime.Disp: 90 tabletRfl: 3 testosterone 100 mg/ml cream (CPD)Apply 0.5 mL to affected area once daily.Disp: Rfl: clopidogrel (PLAVIX) 75 mg tabletTake 1 tablet by mouth once daily.Disp: 30 tabletRfl: 11 cholecalciferol (VITAMIN D3) 5,000 unit tabTake 1 tablet by mouth once daily.Disp: Rfl: sulfamethoxazole-trim ethoprim (BACTRIM DS) 800-160 mg per tabletTake 1 tablet by mouth two times a day for 10 days.Disp: 20 tabletRfl: 0 tamsulosin (FLOMAX) 0.4 mgTake 1 capsule by mouth once daily.Disp: 90 capsuleRfl: 3 FAMILY HISTORY Problem Relation Age of Onset Stroke Father other (lupus) Sister Diabetes Brother Diabetes Brother Social History Tobacco Use Smoking status: Never Smokeless tobacco: Never Substance Use Topics Alcohol use: No Drug use: Never Review of Systems Constitutional: Negative for chills, fatigue and fever. Respiratory: Negative for apnea, choking and chest (more content not included)... Normal [facility] UA DIP, URINE (POC)on 2023 BILIRUBIN UA (POCT) Negative Negative [facility] CLARITY UA (POCT) Cloudy [facility] COLOR UA (POCT) Dark yellow [facility] GLUCOSE UA (POCT) Negative Negative mg/dL [facility] Hemoglobin Ql (U) Trace-intact Abnormal Negative [facility] Interpretation and review of laboratory results Abnormal [facility] KETONE UA (POCT) Negative Negative mg/dL [facility] LEUKOCYTES UA (POCT) Small Abnormal Negative [facility] NITRITE UA (POCT) Negative Negative [facility] PH UA (POCT) 6.0 4.5 - 8.0 [facility] Protein Ql (U) Trace Abnormal Negative mg/dL [facility] SPECIFIC GRAVITY UA (POCT) 1.010 1.005 - 1.030 [facility] UROBILINOGEN UA (POCT) 0.2 Normal E.U./dL [facility] Location:[facility], [address] [place] [address], [place], [place], [id number] [place] [address] POINT OF CARE [facility] Bacteria Ur Culton 4 Bacteria identified Cx Nom (U) ORGANISM ID: 1 10,000 -<50,000 CFU/ml Proteus mirabilis ORGANISM ID: 1 (PROTEUS MIRABILIS) ------ ANTIBIOTIC INTERPRETATION JANA STATUS REFERENCE RANGE ------ Ampicillin S <=2 F Susceptible <=8 , Intermediate >8 , Resistant >16 Cefazolin S <=4 F Susceptible 0-16 , Intermediate <0 or >16 , Resistant >16 For uncomplicated urinary tract infections, cefazolin results can be used to predict susceptibility or resistance to cephalexin. Ceftriaxone S <=1 F Susceptible <=1 , Intermediate >1 , Resistant >=4 Cefepime S <=1 F Susceptible <=2 , Susceptible-Dose Dependent >2 , Resistant >=16 Ertapenem S <=0.5 F Susceptible <=0.5 , Intermediate >.5 , Resistant >1 Meropenem S <=0.25 F Susceptible <=1 , Intermediate >1 , Resistant >2 Ampicillin/Sulbact S <=2 F Susceptible <=8 , Intermediate >8 , Resistant >16 Piperacillin/Tazobac S <=4 F Susceptible <16 , Susceptible-Dose Dependent >=16 , Resistant >=32 Gentamicin S <=1 F Susceptible <=2 , Intermediate >2 , Resistant >=8 Tobramycin S <=1 F Susceptible <4 , Intermediate >=4 , Resistant >=8 Trimeth sulfameth S <=20 F Susceptible <=40 , Resistant >40 Ciprofloxacin S <=0.25 F Susceptible <0.5 , Intermediate >=.5 , Resistant >=1 Nitrofurantoin R 128 F Susceptible <=32 , Intermediate >32 , Resistant >[address] [facility] Comment on above: Performed By: #### 6 30-4 ####[facility] [id number] [place] [id number] [place] CNOVon 02-06-2024 CNOV Office Visit (UCWSTR ) SERGO ROSAS ([id number]) 1935 M Date Time Provider Department 02/06/24 10:[address] [facility] [facility] During your visit today, we recorded the following information about you: Temperature Pulse Respiration Blood pressure 96.9 degrees 60/minute 16/minute 124/60 Weight 67.4 kg Alka Melara PA-C 02/06/2024 11:32 AM Signed This note was created using Productifyter. Subjective Sergo Rosas is a 89 year old male. HPI Patient presents with a chief complaint of dysuria over the past 1 to 2 weeks. He states it has been burning when he is urinating off-and-on. Denies a fever. Denies back pain. No abdominal pain. No vomiting. He states he had a UTI several months ago but really does not get them frequently. Denies history of kidney stones. No blood in urine. Review of Systems Constitutional: Negative. HENT: Negative. Respiratory: Negative. Cardiovascular: Negative. Gastrointestinal: Negative. Genitourinary: Positive for dysuria. Negative for frequency, hematuria, penile discharge, penile pain, penile swelling, testicular pain and urgency. All other systems reviewed and are negative. PAST MEDICAL HISTORY Diagnosis Date Abdominal aortic aneurysm without rupture (HCC) 03/11/[address] Singh Benign prostatic hyperplasia with urinary hesitancy 12/13/2019 Had 10h of urinary retention, Voided x2 since chang removed but small volume Begun on flomax 12/11 Obtain postvoid residual to ensure no overflow incontinence Bilateral carotid artery stenosis 08/20/2018 Celiac disease 08/31/2010 Disorders of bursae and tendons in shoulder region, unspecified 09/08/2013 Diverticulosis of large intestine Elevated hemoglobin A1c 02/10/2021 Hypertension, essential 02/02/2018 Internal hemorrhoids without mention of complication 05/05/2008 Mixed hyperlipidemia 11/30/2010 Peripheral vascular disease (HCC) 02/25/2016 Stage 3a chronic kidney disease (HCC) 02/10/2021 Stroke, Ischemic - Right Parietal, Right Temporal-Occipital, Middle Cerebral Peduncle AND Right Cerebellar 03/2023 Synovial cyst of right popliteal space 02/14/2022 Vitamin D deficiency 04/06/2009 Current Outpatient Medications Medication Sig Dispense Refill hydrocortisone 2.5 % ointment Apply to itchy areas once daily 454 g 1 metoprolol tartrate, short acting, (LOPRESSOR) 50 mg tablet Take 1 tablet by mouth two times a day. 180 tablet 3 MEDICATION, NON-DATABASE Algae Jared Oil of Oregano [address] (Agile [employer]) Take 1 softgel daily, with meals. Saccharomyces Boulardii 60 ct[address] (Klaire/Prothera) Take 1 capsule by mouth two times a day with meals. COQ10, UBIQUINOL, ORAL Take by mouth. amLODIPine (NORVASC) 5 mg tablet Take 1 tablet in the AM and 1/2 tablet in the PM. 135 tablet 3 magnesium chloride (MAG64) [address] tablet TAKE 2 TABLETS BY MOUTH EVERY DAY 60 tablet 3 atorvastatin (LIPITOR) 40 mg tablet Take 1 tablet by mouth daily at bedtime. 90 tablet 3 testosterone 100 mg/ml cream (CPD) Apply 0.5 mL to affected area once daily. clopidogrel (PLAVIX) 75 mg tablet Take 1 tablet by mouth once daily. 30 tablet 11 cholecalciferol (VITAMIN D3) 5,000 unit tab Take 1 tablet by mouth once daily. cephALEXin (KEFLEX) 500 mg capsule Take 1 capsule by mouth two times a day for 7 days. 14 capsule 0 tamsulosin (FLOMAX) 0.4 mg Take 1 capsule by mouth once daily. 90 capsule 3 Current Facility-Administered Medications Medication Dose Route Frequency Provider Last Rate Last Admin perflutren lipid microspheres 1.3 mL in NaCl (PF) 0.9% 10 mL injection (DEFINITY) INTRAVENOUS DIRECTED PRN Walter Nuñez MD sodium chloride 0.9 % (flush) 10 mL (BD POSIFLUSH) 10 mL INTRAVENOUS DIRECTED JAYMEN Walter Nuñez MD PAST SURGICAL HISTORY Procedure Laterality Date ABD AORTA ANEURYSM REPAIR 11/2019 COLONOSCOPY FLX DX W/COLLJ SPEC WHEN PFRMD 03/23/2004 Colonoscopy COLONOSCOPY FLX DX W/COLLJ SPEC WHEN PFRMD 05/05/2008 Colonoscopy, repeat 10 yrs PAST SURGICAL HISTORY OF 04/14/2004 excision of lesion neck PAST SURGICAL HISTORY OF 02/21/1992 lesion removed from rectum FAMILY HISTORY Problem Relation Age of Onset Stroke Father other (lupus) Sister Diabetes Brother Diabetes Brother Social History Tobacco Use Smoking status: Never Smokeless tobacco: Never Substance Use Topics Alcohol use: No Drug use: Never Objective BP 124/60 Pulse 60 Temp 36.1 ?C (96.9 ?F) Resp 16 Wt 67.4 kg (148 lb 9.4 oz) SpO2 95% BMI 22.59 kg/m? Physical Exam Vitals reviewed. Constitutional: Appearance: Normal appearance. HENT: Head: Normocephalic and atraumatic. Cardiovascular: Rate and Rhythm: Normal rate and regular rhythm. Heart sounds: Normal heart sounds. Pulmonary: Effort: Pulmonary effort is normal. Breath sounds: Normal breath sounds. Abdominal: General: Abdomen (more content not included)... Normal [facility] CNOV Office Visit (JOHN ) HEADINGS,SERGO Suárez ([id number]) 1935 M Date Time Provider Department 02/06/24 10:00 AM VERNELL MARTINEZ During your visit today, we recorded the following information about you: Vernell Martinez PA-C 02/06/2024 10:27 AM Signed ESTABLISHED PATIENT VISIT Last visit: 08/08/23 ASSESSMENT/PLAN: 1. 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 Left-sided weakness - ICD9: 728.87, ICD10: R53.1 3. Vision loss of left eye - ICD9: 369.8, ICD10: H54.62 Patient doing very well since last appointment, no new deficits and notes that his strength and vision is improving since last appointment. Notes that he saw an eye doctor and states his visual izaguirre were normal with normal exam otherwise. No new symptoms since last appointment, compliant with Plavix and statin medications, following with primary care for other risk factors as well. Did complete his heart monitor, states that they have not been able to find his results, is following with cardiology for this. Due to multiple cortical strokes, concern for atrial fibrillation or other arrhythmia contribute to patient's symptoms. We will have him reach out to cardiology for further monitoring of this. At this time, we will continue Plavix therapy, patient without any falls or risk for falling. Did discuss driving, patient did have some mild vision loss that was appreciable on last exam, but this is minimal today. Patient did hesitate in the left lower visual field but was still correct number of fingers that he saw. From a vision standpoint, as he saw an eye doctor and states that his visual exam was normal, we will have him resume driving. Discussed driving locally at first with someone in the car and adjusting as tolerated. No concerns for memory or any other contributing factor regarding his driving. Patient agrees and understands. Discussed managing risk factors for stroke with family medicine as well along with staying active increasing water intake. Patient agrees and understands. Patient and family agreeable to treatment plan of care at this time, all questions were answered. Patient to follow-up in 6 months or sooner should any symptoms change or worsen. Vernell Martinez PA-C CHIEF COMPLAINT: follow up HISTORY OF PRESENT ILLNESS: Sergo Rosas is a 89 year old male, There were no vitals taken for this visit. with a PMH significant for CVA, HLD, AAA, PVD, HTN, CKD stage 3 . Last seen 08/08/23 for stroke follow up. Doing well, no deficits. On plavix and statin, following with PCP. Last saw cardiology on 01/24/24. Patient presents with his for follow-up appointment. No new symptoms since last appointment. Still compliant with his Plavix and statin medication, no new neurologic symptoms or concerns today. Notes good activity good water intake. No vision changes or worsening vision. Recently drove all the way to [place] without any issues, no issues with memory. Does not 1 fall while he was on his way back from [place]. States he was coming up on a curb and did not pick his foot up high enough, tripped. Attributes this to being in a rivera because he had used the restroom. Fell onto his knees and had a small scratch but no significant injury, no head injury. Does note today he has some foul-smelling urine and some dysuria. No confusion or fevers. REVIEW OF SYSTEMS GENERAL:No weight loss, malaise or fevers. HEENT:Negative for frequent or significant headaches, No changes in hearing or vision, no nose bleeds or other nasal problems NECK:Negative for lumps, goiter, pain and significant neck swelling RESPIRATORY: Negative for cough, wheezing or shortness of breath. CARDIOVASCULAR: Negative for chest pain, leg swelling or palpitations. GASTROINTESTINAL: Negative for abdominal discomfort, blood in stools or black stools or change in bowel habits GENITOURINARY: No history of dysuria, frequency or incontinence MUSCULOSKELETAL: Negative for joint pain or swelling, back pain or muscle pain. NEUROLOGIC:Negative for focal numbness or weakness, headaches and dizziness or syncope, vision changes, speech/languag changes - EXCEPT that as per HPI above. SKIN:Negative for lesions, rash, and itching. PSYCHIATRIC: Negative for sleep disturbance, mood disorder and recent psychosocial stressors. HEMATOLOGIC/LYMPHATIC /IMMUNOLOGIC:Negative for prolonged bleeding, bruising easily or swollen nodes. ENDOCRINE: Negative for cold or heat intolerance, polyuria, polydipsia and goiter. The remainder of the ROS was reviewed and is negative. LAB/IMAGING: Those performed since patient's last visit have been reviewed. None since last appointment MEDICATIONS: metoprolol tartrate, short acting, (LOPRESSOR) 50 mg tabletTake 1 tablet by mouth two times a day.Disp: 180 (more content not included)... Normal [facility] UA DIP, URINE (POC)on 2023 BILIRUBIN UA (POCT) Negative Negative [facility] CLARITY UA (POCT) [facility] COLOR UA (POCT) Dark [facility] GLUCOSE UA (POCT) Negative Negative mg/dL [facility] Hemoglobin Ql (U) Trace-lysed Abnormal Negative [facility] Interpretation and review of laboratory results Abnormal [facility] KETONE UA (POCT) Negative Negative mg/dL [facility] LEUKOCYTES UA (POCT) Moderate Abnormal Negative [facility] NITRITE UA (POCT) Negative Negative [facility] PH UA (POCT) 6.5 4.5 - 8.0 [facility] Protein Ql (U) Negative Negative mg/dL [facility] SPECIFIC GRAVITY UA (POCT) 1.010 1.005 - 1.030 [facility] UROBILINOGEN UA (POCT) 0.2 Normal E.U./dL [facility] Location:[facility], [address] [place] [address], [place], [place], [id number] [place] [address] POINT OF CARE [facility] CNOVon 01-29-2024 CNOV Office Visit (CHA ) SERGO ROSAS ([id number]) 1935 M Date Time Provider Department 01/29/24 1:30 PM KATHY HUGGINS [facility] During your visit today, we recorded the following information about you: Temperature Pulse Blood pressure Weight 97.5 degrees 61/minute 123/56 65.6 kg Height 1.727 m Kathy Huggins MD 01/30/2024 8:03 AM Signed FUNCTIONAL MEDICINE FOLLOW-UP ASSESSMENT Patient: Sergo Rosas 65.6 kg (144 lb 9.6 oz) 172.7 cm (5' 8 ) Body mass index is 21.99 kg/m?. Resting Metabolic Rate: 1331 Waist measurement: No waist measurement recorded. BP: 123/56 ALLERGIES Allergen Reactions Gluten Diarrhea Upset stomach Gas build up Current Outpatient Medications on File Prior to Visit Medication Sig tamsulosin (FLOMAX) 0.4 mg Take 1 capsule by mouth once daily. metoprolol tartrate, short acting, (LOPRESSOR) 50 mg tablet Take 1 tablet by mouth twice daily. SprectraZyme Mcqueen 9x ES Take 1 tablet by mouth w MEALS. x-iojyuvklk-mvgxwqpw root extract-aloe leaf extract (GLUTAGENICS) [id number] powder Mix one teaspoon (4.33 g) with water three times daily (1 teaspoon = 3.5 grams L-glut) milk thistle seed extract 200 mg cap Take by mouth. cholecalciferol (VITAMIN D3) 5,000 unit tab Take 1 tablet by mouth once daily. ZINC ORAL Take 50 mg by mouth once daily. TESTOSTERONE, BULK, MISC Cream Aspirin 81 mg tab Take 1 tablet by mouth once daily. CandiBactin AR (MetagenwireLawyer) One softgel three times daily with meals CandiBactin BR (Metagenics) Two tablets three times daily Biocidin Advanced Formula (FirstBest) Take 5 Drops by mouth three times daily. Atrantil One (2) capsule per day up to 3 x's a day with food. hydrOXYzine HCl (ATARAX) 25 mg tablet TAKE 1 TABLET BY MOUTH THREE TIMES DAILY NEEDED FOR ITCHING/RASH. turmeric (CURCUMIN MISC) selenium 200 mcg tablet Take 1 tablet by mouth once daily. Flaxseed Oil 1,000 mg cap Take by mouth. (Patient not taking: Reported on 08/08/2022) OTC PRODUCT Liver md 2 caps daily OTC PRODUCT Arterial protect one cap dialy OTC PRODUCT digestzymes-- pancreatic enzymes (Patient not taking: Reported on 08/08/2022) GLUTATHIONE ORAL Take by mouth. MAGNESIUM ORAL Take 600 mg by mouth once daily. Glutamine (L-GLUTAMINE) 500 mg cap Take by mouth once daily. ubidecarenone (COQ-10 ORAL) Take 200 mg by mouth once daily. VITAMIN K2 ORAL Take 550 mcg by mouth once daily. cyanocobalamin/folic ac/vit B6 (HOMOCYSTEINE FORMULA ORAL) Take by mouth once daily. 2 capsules (Patient not taking: Reported on 08/08/2022) Lactobacillus acidophilus (PROBIOTIC ORAL) Take by mouth once daily. (Patient not taking: Reported on 08/08/2022) triamcinolone acetonide (KENALOG) 0.1 % cream Apply 1 application to affected area twice daily as needed (Avoid use on the face and eyelids). homeopathic drugs (PROSTATE ORAL) (Patient not taking: Reported on 08/08/2022) cholestyramine (QUESTRAN) 4 gram packet prn CYANOCOBALAMIN, VITAMIN B-12, (VITAMIN B-12 ORAL) Take by mouth once daily. (Patient not taking: Reported on 08/08/2022) No current facility-administered medications on file prior to visit. PAST MEDICAL HISTORY Diagnosis Date Abdominal aortic aneurysm without rupture (HCC) 03/11/[address] Singh Benign prostatic hyperplasia with urinary hesitancy 12/13/2019 Had 10h of urinary retention, Voided x2 since chang removed but small volume Begun on flomax 12/11 Obtain postvoid residual to ensure no overflow incontinence Bilateral carotid artery stenosis 08/20/2018 Celiac disease 08/31/2010 Disorders of bursae and tendons in shoulder region, unspecified 09/08/2013 Diverticulosis of large intestine Elevated hemoglobin A1c 02/10/2021 Hypertension, essential 02/02/2018 Internal hemorrhoids without mention of complication 05/05/2008 Mixed hyperlipidemia 11/30/2010 Peripheral vascular disease (HCC) 02/25/2016 Stage 3a chronic kidney disease (HCC) 02/10/2021 Stroke, Ischemic - Right Parietal, Right Temporal-Occipital, Middle Cerebral Peduncle AND Right Cerebellar 03/2023 Synovial cyst of right popliteal space 02/14/2022 Vitamin D deficiency 04/06/2009 PAST SURGICAL HISTORY Procedure Laterality Date ABD AORTA ANEURYSM REPAIR 11/2019 COLONOSCOPY FLX DX W/COLLJ SPEC WHEN PFRMD 03/23/2004 Colonoscopy COLONOSCOPY FLX DX W/COLLJ SPEC WHEN PFRMD 05/05/2008 Colonoscopy, repeat 10 yrs PAST SURGICAL HISTORY OF 04/14/2004 excision of lesion neck PAST SURGICAL HISTORY OF 02/21/1992 lesion removed from rectum Family History Problem Relation Age of Onset Stroke Father other (lupus) Sister Diabetes Brother Diabetes Brother Social History Tobacco Use Smoking status: Never Smokeless tobacco: Never Substance Use Topics Alcohol use: No Drug use: Never EVALUATION Patient presents with: Established Patient 01/29/24 Katherine (more content not included)... Normal [facility] CNOVon 2024 CNOV Office Visit (INTMWS ) SERGO ROSAS ([id number]) 1935 M Date Time Provider Department 01/24/24 4:20 PM OLDER, KEVIN MALAGON During your visit today, we recorded the following information about you: Pulse Respiration Blood pressure Weight 56/minute 16/minute 132/66 65.3 kg Older, JESENIA Black.BUILDING SPECIALIST 2024 4:59 PM Signed CC: Patient presents with: Recheck: Bp follow up HPI Sergo Rosas is a 88 year old male who presents today for blood pressure. Was told by insurance to come in as he had a few BP readings of 100s/low 50s but not typically. Also was asymptomatic with these readings but does not remember what time of day they were taken. HTN: Mr. Rosas indicates that he is feeling well and denies any symptoms referable to elevated blood pressure. Specifically denies headache, chest pain, palpitations, dyspnea, and peripheral edema. Patient denies any side effects of his medication(s) and is compliant with their regimen. He does check BP's away from this office with average BP's in the 110s-120s/60s range. Sergo hikes often and walks without difficulty. He watches his diet for sodium, low fat and low cholesterol most of the time. Last 3 Encounter BP Readings: Date: BP: 2024 132/66 2024 130/57 10/02/2023 124/62 Has been on a testosterone cream for low testosterone as ordered by an [place] provider for the past 4-5 years. Sold their house in [place] so not going to be seeing this provider anymore. Sees Dr. Mackey in [place]. Last seen over a year ago. REVIEW OF SYSTEMS See HPI PAST MEDICAL HISTORY Diagnosis Date Abdominal aortic aneurysm without rupture (HCC) 03/11/[address] Singh Benign prostatic hyperplasia with urinary hesitancy 12/13/2019 Had 10h of urinary retention, Voided x2 since chang removed but small volume Begun on flomax 12/11 Obtain postvoid residual to ensure no overflow incontinence Bilateral carotid artery stenosis 08/20/2018 Celiac disease 08/31/2010 Disorders of bursae and tendons in shoulder region, unspecified 09/08/2013 Diverticulosis of large intestine Elevated hemoglobin A1c 02/10/2021 Hypertension, essential 02/02/2018 Internal hemorrhoids without mention of complication 05/05/2008 Mixed hyperlipidemia 11/30/2010 Peripheral vascular disease (HCC) 02/25/2016 Stage 3a chronic kidney disease (HCC) 02/10/2021 Stroke, Ischemic - Right Parietal, Right Temporal-Occipital, Middle Cerebral Peduncle AND Right Cerebellar 03/2023 Synovial cyst of right popliteal space 02/14/2022 Vitamin D deficiency 04/06/2009 PAST SURGICAL HISTORY Procedure Laterality Date ABD AORTA ANEURYSM REPAIR 11/2019 COLONOSCOPY FLX DX W/COLLJ SPEC WHEN PFRMD 03/23/2004 Colonoscopy COLONOSCOPY FLX DX W/COLLJ SPEC WHEN PFRMD 05/05/2008 Colonoscopy, repeat 10 yrs PAST SURGICAL HISTORY OF 04/14/2004 excision of lesion neck PAST SURGICAL HISTORY OF 02/21/1992 lesion removed from rectum ALLERGIES Gluten MEDICATIONS metoprolol tartrate, short acting, (LOPRESSOR) 50 mg tabletTake 1 tablet by mouth two times a day.Disp: 180 tabletRfl: 3 amLODIPine (NORVASC) 5 mg tabletTake 1 tablet in the AM and 1/2 tablet in the PM.Disp: 135 tabletRfl: 3 atorvastatin (LIPITOR) 40 mg tabletTake 1 tablet by mouth daily at bedtime.Disp: 90 tabletRfl: 3 clopidogrel (PLAVIX) 75 mg tabletTake 1 tablet by mouth once daily.Disp: 30 tabletRfl: 11 tamsulosin (FLOMAX) 0.4 mgTake 1 capsule by mouth once daily.Disp: 90 capsuleRfl: 3 hydrocortisone 2.5 % ointmentApply to itchy areas once dailyDisp: 454 gRfl: 1 MEDICATION, NON-DATABASEAlgae CalDisp: Rfl: Oil of Oregano [address] (Agile [employer] Power)Take 1 softgel daily, with meals.Disp: Rfl: Saccharomyces Boulardii 60 ct[address] (Klaire/Prothera)Take 1 capsule by mouth two times a day with meals.Disp: Rfl: COQ10, UBIQUINOL, ORALTake by mouth.Disp: Rfl: magnesium chloride (MAG64) [address] tabletTAKE 2 TABLETS BY MOUTH EVERY DAYDisp: 60 tabletRfl: 3 (Patient not taking: Reported on 2024) Yeast Formula (Integrative [employer]rapeutics)Take 2 enteric-coated softgels between meals twice dailyDisp: 90 capsuleRfl: testosterone 100 mg/ml cream (CPD)Apply 0.5 mL to affected area once daily.Disp: Rfl: cholecalciferol (VITAMIN D3) 5,000 unit tabTake 1 tablet by mouth once daily.Disp: Rfl: FAMILY HISTORY Problem Relation Age of Onset Stroke Father other (lupus) Sister Diabetes Brother Diabetes Brother Social History Tobacco Use Smoking status: Never Smokeless tobacco: Never Substance Use Topics Alcohol use: No Drug use: Never PHYSICAL EXAM BP 132/66 Pulse (!) 56 Resp 16 Wt 65.3 kg (144 lb) SpO2 96% BMI 21.90 kg/m? General Appearance: well appearing, in no acute distress, alert Eyes: PERRLA, EOM's intact, conjunctiva pink and moist, no icterus, sclera white, non-injected Lungs: Lungs clear to auscultatio (more content not included)... Normal [facility] Office Visit (RAGINI ) SERGO ROSAS ([id number]) 1935 M Date Time Provider Department 01/24/24 11:30 AM WALTER NUÑEZ During your visit today, we recorded the following information about you: Pulse Blood pressure Weight 54/minute 130/57 65.2 kg Walter Nuñez MD 2024 11:44 AM Signed [facility] [place] [facility] Department of Cardiovascular Medicine OUTPATIENT VISIT DATE 2024 OUTPATIENT VISIT TYPE ESTABLISHED PRIMARY CARE PHYSICIAN: Kezia Dubose MD [id number] [facility] [id number] CHIEF COMPLAINT: Patient presents with: Cardiology Follow Up HISTORY OF PRESENT ILLNESS: Sergo Rosas is a 88 year old male. Patient has a history of moderate to severe aortic insufficiency, abdominal aortic aneurysm status post repair, essential hypertension and multiple other medical problems. 03/02/23 The patient presents today as a consult regarding aortic insufficiency. He is currently denying any significant chest discomfort or unusual shortness of breath. He denies any palpitations, syncopal or near syncopal episodes. He denies any edema, orthopnea or PND. He has apparently not been followed by cardiology for his valvular disease. He does have significant peripheral arterial disease involving the abdominal aorta and carotids. He sees vascular for that. He does not report that his blood pressures have been somewhat elevated recently. They continue to be elevated here today. His heart rate is generally in the 50s. He is on metoprolol. 06/23/2023 Patient presents today for a follow-up visit. He suffered a stroke in March of this year. He was admitted to [facility]. 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 There was no arrhythmia identified. He was placed on both aspirin and Plavix for some time. Then his aspirin was discontinued. He has been continued on Plavix since then. He has had no further episodes. His episode consisted of left-sided weakness. He denies any palpitations around the time of the event. Since then he has had some swelling of his left lower extremity and none on the right. An echocardiogram done at that time revealed normal right and left ventricular systolic function with moderate aortic insufficiency. The patient had a 14-day monitor done as an outpatient. I am unable to find the results. We will contact [facility] for the results of the monitor. He states that he was not called with any results. He has been doing relatively well. With the help of physical therapy, he has made a good recovery. He currently denies any cardiac symptoms. 2024 Patient presents today for a follow-up visit. He is doing well. We have reviewed his monitor. There was no evidence of atrial fibrillation. The patient denies any chest pain, shortness of breath or dyspnea on exertion. The patient denies any palpitations, syncopal or near syncopal episodes. The patient denies any edema, orthopnea or paroxysmal nocturnal dyspnea. The patient has been compliant with medications. He has had no further stroke symptoms. His blood pressure is good today. PAST MEDICAL HISTORY Diagnosis Date Abdominal aortic aneurysm without rupture (HCC) 03/11/[address] Singh Benign prostatic hyperplasia with urinary hesitancy 12/13/2019 Had 10h of urinary retention, Voided x2 since chang removed but small volume Begun on flomax 12/11 Obtain postvoid residual to ensure no overflow incontinence Bilateral carotid artery stenosis 08/20/2018 Celiac disease 08/31/2010 Disorders of bursae and tendons in shoulder region, unspecified 09/08/2013 Diverticulosis of large intestine Elevated hemoglobin A1c 02/10/2021 Hypertension, essential 02/02/2018 Internal hemorrhoids without mention of complication 05/05/2008 Mixed hyperlipidemia 11/30/2010 Peripheral vascular disease (HCC) 02/25/2016 Stage 3a chronic kidney disease (HCC) 02/10/2021 Stroke, Ischemic - Right Parietal, Right Temporal-Occipital, Middle Cerebral Peduncle AND Right Cerebellar 03/2023 Synovial cyst of right popliteal space 02/14/2022 Vitamin D deficiency 04/06/2009 PAST SURGICAL HISTORY Procedure Laterality Date ABD AORTA ANEURYSM REPAIR 11/2019 COLONOSCOPY FLX DX W/COLLJ SPEC WHEN PFRMD 03/23/2004 Colonoscopy COLONOSCOPY FLX DX W/COLLJ SPEC WHEN PFRMD 05/05/2008 Colonoscopy, repeat 10 yrs PAST SURGICAL HISTORY OF 04/14/2004 excision of lesion neck PAST SURGICAL HISTORY OF 02/21/1992 lesion removed from rectum Social History Tobacco Use Smoking status: Never Smokeless tobacco: Never Substance Use Topics Alcohol use: No Drug use: Never FAMILY HISTORY Problem Relation Age of Onset Stroke Father other (lupus) Sister Diabetes Brother Diabetes Brother ALLERGIES: ALLERGIES Allergen Reactions Gluten (more content not included)... Normal [facility] CNOVon 11-07-2023 CNOV Office Visit ([facility] ) HEADINGS,SERGO Suárez ([id number]) 1935 M Date Time Provider Department 11/07/23 9:00 AM LESA MERAZ [facility] During your visit today, we recorded the following information about you: Lesa Meraz MD 11/07/2023 12:50 PM Signed EST PATIENT LISA in Dermatology: 08/21/2023 Sergo Rosas is a 88 year old male who presents today for Patient presents with: Full Body Skin Check Current Treatment: Hydrocortisone ointment Past Treatment: As above History of nonmelanoma skin cancer: no History of Melanoma: no Family history of skin cancer: no Dermatology History: Specialty Problems None Allergies: Gluten Past Medical History: PAST MEDICAL HISTORY Diagnosis Date Abdominal aortic aneurysm without rupture (HCC) 03/11/[address] Singh Benign prostatic hyperplasia with urinary hesitancy 12/13/2019 Had 10h of urinary retention, Voided x2 since chang removed but small volume Begun on flomax 12/11 Obtain postvoid residual to ensure no overflow incontinence Bilateral carotid artery stenosis 08/20/2018 Celiac disease 08/31/2010 Disorders of bursae and tendons in shoulder region, unspecified 09/08/2013 Diverticulosis of large intestine Elevated hemoglobin A1c 02/10/2021 Hypertension, essential 02/02/2018 Internal hemorrhoids without mention of complication 05/05/2008 Mixed hyperlipidemia 11/30/2010 Peripheral vascular disease (HCC) 02/25/2016 Stage 3a chronic kidney disease (HCC) 02/10/2021 Stroke, Ischemic - Right Parietal, Right Temporal-Occipital, Middle Cerebral Peduncle AND Right Cerebellar 03/2023 Synovial cyst of right popliteal space 02/14/2022 Vitamin D deficiency 04/06/2009 MEDS: Current Outpatient Medications on File Prior to Visit Medication Sig metoprolol tartrate, short acting, (LOPRESSOR) 50 mg tablet Take 1 tablet by mouth two times a day. MEDICATION, NON-DATABASE Algae Jared Oil of Oregano [address] ([employer]) Take 1 softgel daily, with meals. Saccharomyces Boulardii 60 ct. (Klaire/Prothera) Take 1 capsule by mouth two times a day with meals. hydrocortisone 2.5 % ointment Apply to itchy areas once daily COQ10, UBIQUINOL, ORAL Take by mouth. amLODIPine (NORVASC) 5 mg tablet Take 1 tablet in the AM and 1/2 tablet in the PM. magnesium chloride (MAG64) [address] tablet TAKE 2 TABLETS BY MOUTH EVERY DAY Yeast Formula ([employer]) Take 2 enteric-coated softgels between meals twice daily atorvastatin (LIPITOR) 40 mg tablet Take 1 tablet by mouth daily at bedtime. testosterone 100 mg/ml cream (CPD) Apply 0.5 mL to affected area once daily. clopidogrel (PLAVIX) 75 mg tablet Take 1 tablet by mouth once daily. tamsulosin (FLOMAX) 0.4 mg Take 1 capsule by mouth once daily. cholecalciferol (VITAMIN D3) 5,000 unit tab Take 1 tablet by mouth once daily. Current Facility-Administered Medications on File Prior to Visit Medication perflutren lipid microspheres 1.3 mL in NaCl (PF) 0.9% 10 mL injection (DEFINITY) sodium chloride 0.9 % (flush) 10 mL (BD POSIFLUSH) Review of systems No Has pacemaker / defibrillator No Takes aspirin / anticoagulant daily Yes: plavix Has valve disorders No Other problems elsewhere on skin No Nataliia Wills LPN The above was entered by the nursing staff. I have reviewed the documentation and I concur. Lesa Meraz MD HPI: Chief Complaint Skin check Location Full body Duration years Timing constant Severity mild Quality constant Modifying Factors: PT states he has itchy skin at times and would like a refill on hydrocortisone ointment. Typically uses the cream 1-2x a week and has relief. Denies moisturizing skin Physical Exam - Area(s) Examined: The pt is alert and oriented, in NAD. Skin examination of head/scalp, face, neck, chest, back, abdomen, bilateral upper, lower extremities, groin/buttocks, hands, feet, digits, and nails. was significant for: Items identified on Diagram above No current rash and no dermatographism Component Latest Ref Rng AND Units 09/08/2023 WBC 3.70 - 11.00 k/uL 6.61 RBC 4.20 - 6.00 m/uL 4.21 Hemoglobin 13.0 - 17.0 g/dL 12.7 (L) Hematocrit 39.0 - 51.0 % 39.6 MCV 80.0 - 100.0 fL 94.1 MCH 26.0 - 34.0 pg 30.2 MCHC 30.5 - 36.0 g/dL 32.1 RDW-CV 11.5 - 15.0 % 14.6 Platelet Count 150 - 400 k/uL 201 MPV 9.0 - 12.7 fL 12.0 Absolute nRBC <0.01 k/uL <0.01 Glucose 74 - 99 mg/dL 146 (H) BUN 9 - 24 mg/dL 21 Creatinine 0.73 - 1.22 mg/dL 1.34 (H) Sodium 136 - 144 mmol/L 140 Potassium 3.7 - 5.1 mmol/L 4.2 Chloride 97 - 105 mmol/L 107 (H) CO2 22 - 30 mmol/L 23 Anion Gap 9 - 18 mmol/L 10 Calcium 8.5 - 10.2 mg/dL 9.3 eGFR >=60 mL/min/1.73mA? 52 (L) Hemoglobin A1C 4.3 - 5.6 % 6.3 (H) Estimated Average Glucose mg/dL 134 Has not had thyroid studies since 2021 Assessment / Plan: (L29.9) Pruritus (primary encount (more content not included)... Normal [facility] CNOVon 10-02-2023 CNOV Office Visit ([facility] ) SERGO ROSAS ([id number]) 1935 M Date Time Provider Department 10/02/23 11:20 AM KEVIN BHAGAT During your visit today, we recorded the following information about you: Pulse Respiration Blood pressure Weight 60/minute 16/minute 124/62 69.4 kg Kevin Bhagat APRN.BUILDING SPECIALIST 10/05/2023 7:28 AM Signed CC: Patient presents with: Follow Up: 3 month follow up HPI Sergo Rosas is a 88 year old male who presents today for routine follow up. HTN, CKD, and HLD: Mr. Rosas indicates that he is feeling well and denies any symptoms referable to elevated blood pressure. Specifically denies headache, chest pain, palpitations, dyspnea, and peripheral edema. Patient denies any side effects of his medication(s) and is compliant with their regimen. He does not check BP's generally. Sergo works out regularly 7 times per week with walking. He watches his diet for sodium, low fat and low cholesterol most of the time. Last 3 Encounter BP Readings: Date: BP: 10/02/2023 124/62 09/27/2023 146/60 08/08/2023 118/64 History of CVA without residual effects. Is on plavix daily and atorvastatin. Follows regularly with neurology. Does not use an assistive device but would like to have a handicapped placard to use if parking lots are icy to help prevent fall. Prediabetes: Mr. Rosas denies excessive thirst or increased frequency of urination, chest pain or dyspnea , numbness, tingling or pain in extremities, new or unusual visual symptoms, low sugar/hypoglycemic reactions, weight loss/gain, and lightheadedness/dizzi ness. Follows a diabetic diet most of the time. He is compliant with medication(s) and is tolerating med(s) without any side effects. He reports checking his glucose on a infrequent to not at all basis schedule. Patient's last HgA1C was Hemoglobin A1C (%) Date Value 09/08/2023 6.3 04/24/2023 6.5 05/12/2021 5.8 02/10/2021 6.5 ) Is getting started on probiotic for gas and loose stools as ordered by functional medicine. REVIEW OF SYSTEMS See HPI PAST MEDICAL HISTORY Diagnosis Date Abdominal aortic aneurysm without rupture (HCC) 03/11/[address] Singh Benign prostatic hyperplasia with urinary hesitancy 12/13/2019 Had 10h of urinary retention, Voided x2 since chang removed but small volume Begun on flomax 12/11 Obtain postvoid residual to ensure no overflow incontinence Bilateral carotid artery stenosis 08/20/2018 Celiac disease 08/31/2010 Disorders of bursae and tendons in shoulder region, unspecified 09/08/2013 Diverticulosis of large intestine Elevated hemoglobin A1c 02/10/2021 Hypertension, essential 02/02/2018 Internal hemorrhoids without mention of complication 05/05/2008 Mixed hyperlipidemia 11/30/2010 Peripheral vascular disease (HCC) 02/25/2016 Stage 3a chronic kidney disease (HCC) 02/10/2021 Stroke, Ischemic - Right Parietal, Right Temporal-Occipital, Middle Cerebral Peduncle AND Right Cerebellar 03/2023 Synovial cyst of right popliteal space 02/14/2022 Vitamin D deficiency 04/06/2009 PAST SURGICAL HISTORY Procedure Laterality Date ABD AORTA ANEURYSM REPAIR 11/2019 COLONOSCOPY FLX DX W/COLLJ SPEC WHEN PFRMD 03/23/2004 Colonoscopy COLONOSCOPY FLX DX W/COLLJ SPEC WHEN PFRMD 05/05/2008 Colonoscopy, repeat 10 yrs PAST SURGICAL HISTORY OF 04/14/2004 excision of lesion neck PAST SURGICAL HISTORY OF 02/21/1992 lesion removed from rectum ALLERGIES Gluten MEDICATIONS MEDICATION, NON-DATABASEAlgae CalDisp: Rfl: Oil of Oregano [address] ([employer])Take 1 softgel daily, with meals.Disp: Rfl: Saccharomyces Boulardii 60 ct. (Klaire/Prothera)Take 1 capsule by mouth two times a day with meals.Disp: Rfl: hydrocortisone 2.5 % ointmentApply to itchy areas once dailyDisp: 454 gRfl: 1 COQ10, UBIQUINOL, ORALTake by mouth.Disp: Rfl: amLODIPine (NORVASC) 5 mg tabletTake 1 tablet in the AM and 1/2 tablet in the PM.Disp: 135 tabletRfl: 3 magnesium chloride (MAG64) [address] tabletTAKE 2 TABLETS BY MOUTH EVERY DAYDisp: 60 tabletRfl: 3 Yeast Formula ([employer])Take 2 enteric-coated softgels between meals twice dailyDisp: 90 capsuleRfl: (Patient not taking: Reported on 09/27/2023) atorvastatin (LIPITOR) 40 mg tabletTake 1 tablet by mouth daily at bedtime.Disp: 90 tabletRfl: 3 testosterone 100 mg/ml cream (CPD)Apply 0.5 mL to affected area once daily.Disp: Rfl: clopidogrel (PLAVIX) 75 mg tabletTake 1 tablet by mouth once daily.Disp: 30 tabletRfl: 11 tamsulosin (FLOMAX) 0.4 mgTake 1 capsule by mouth once daily.Disp: 90 capsuleRfl: 3 metoprolol tartrate, short acting, (LOPRESSOR) 50 mg tabletTake 1 tablet by mouth twice daily.Disp: 180 tabletRfl: 3 cholecalciferol (VITAMIN D3) 5,000 unit tabTake 1 tablet by mouth once daily.Disp: Rfl: FAMILY HISTORY Problem Relation Age of Onset Stroke Father other (lup (more content not included)... Normal [facility] CNOVon 09-27-2023 CNOV Office Visit ([facility] ) SERGO ROSAS ([id number]) 1935 M Date Time Provider Department 09/27/23 1:30 PM KATHY HUGGINS [facility] During your visit today, we recorded the following information about you: Temperature Pulse Respiration Blood pressure 97.3 degrees 54/minute 20/minute 146/60 Weight Height 68 kg 1.727 m Kathy Huggins MD 09/27/2023 2:14 PM Signed FUNCTIONAL MEDICINE FOLLOW-UP ASSESSMENT Patient: Sergo Rosas 68 kg (150 lb) 172.7 cm (5' 8 ) Body mass index is 22.81 kg/m?. Resting Metabolic Rate: 1331 Waist measurement: No waist measurement recorded. BP: 146/60 ALLERGIES Allergen Reactions Gluten Diarrhea Upset stomach Gas build up Current Outpatient Medications on File Prior to Visit Medication Sig tamsulosin (FLOMAX) 0.4 mg Take 1 capsule by mouth once daily. metoprolol tartrate, short acting, (LOPRESSOR) 50 mg tablet Take 1 tablet by mouth twice daily. SprectraZyme Mcqueen 9x ES Take 1 tablet by mouth w MEALS. m-dhzgyfpxy-lwunkvsy root extract-aloe leaf extract (GLUTAGENICS) [id number] powder Mix one teaspoon (4.33 g) with water three times daily (1 teaspoon = 3.5 grams L-glut) milk thistle seed extract 200 mg cap Take by mouth. cholecalciferol (VITAMIN D3) 5,000 unit tab Take 1 tablet by mouth once daily. ZINC ORAL Take 50 mg by mouth once daily. TESTOSTERONE, BULK, MISC Cream Aspirin 81 mg tab Take 1 tablet by mouth once daily. CandiBactin AR (Metagenics) One softgel three times daily with meals CandiBactin BR ([employer]ics) Two tablets three times daily Biocidin Advanced Formula ([employer]) Take 5 Drops by mouth three times daily. Atrantil One (2) capsule per day up to 3 x's a day with food. hydrOXYzine HCl (ATARAX) 25 mg tablet TAKE 1 TABLET BY MOUTH THREE TIMES DAILY NEEDED FOR ITCHING/RASH. turmeric (CURCUMIN MISC) selenium 200 mcg tablet Take 1 tablet by mouth once daily. Flaxseed Oil 1,000 mg cap Take by mouth. (Patient not taking: Reported on 08/08/2022) OTC PRODUCT Liver md 2 caps daily OTC PRODUCT Arterial protect one cap dialy OTC PRODUCT digestzymes-- pancreatic enzymes (Patient not taking: Reported on 08/08/2022) GLUTATHIONE ORAL Take by mouth. MAGNESIUM ORAL Take 600 mg by mouth once daily. Glutamine (L-GLUTAMINE) 500 mg cap Take by mouth once daily. ubidecarenone (COQ-10 ORAL) Take 200 mg by mouth once daily. VITAMIN K2 ORAL Take 550 mcg by mouth once daily. cyanocobalamin/folic ac/vit B6 (HOMOCYSTEINE FORMULA ORAL) Take by mouth once daily. 2 capsules (Patient not taking: Reported on 08/08/2022) Lactobacillus acidophilus (PROBIOTIC ORAL) Take by mouth once daily. (Patient not taking: Reported on 08/08/2022) triamcinolone acetonide (KENALOG) 0.1 % cream Apply 1 application to affected area twice daily as needed (Avoid use on the face and eyelids). homeopathic drugs (PROSTATE ORAL) (Patient not taking: Reported on 08/08/2022) cholestyramine (QUESTRAN) 4 gram packet prn CYANOCOBALAMIN, VITAMIN B-12, (VITAMIN B-12 ORAL) Take by mouth once daily. (Patient not taking: Reported on 08/08/2022) No current facility-administered medications on file prior to visit. PAST MEDICAL HISTORY Diagnosis Date Abdominal aortic aneurysm without rupture (HCC) 03/11/[address] Singh Benign prostatic hyperplasia with urinary hesitancy 12/13/2019 Had 10h of urinary retention, Voided x2 since chang removed but small volume Begun on flomax 12/11 Obtain postvoid residual to ensure no overflow incontinence Bilateral carotid artery stenosis 08/20/2018 Celiac disease 08/31/2010 Disorders of bursae and tendons in shoulder region, unspecified 09/08/2013 Diverticulosis of large intestine Elevated hemoglobin A1c 02/10/2021 Hypertension, essential 02/02/2018 Internal hemorrhoids without mention of complication 05/05/2008 Mixed hyperlipidemia 11/30/2010 Peripheral vascular disease (HCC) 02/25/2016 Stage 3a chronic kidney disease (HCC) 02/10/2021 Stroke, Ischemic - Right Parietal, Right Temporal-Occipital, Middle Cerebral Peduncle AND Right Cerebellar 03/2023 Synovial cyst of right popliteal space 02/14/2022 Vitamin D deficiency 04/06/2009 PAST SURGICAL HISTORY Procedure Laterality Date ABD AORTA ANEURYSM REPAIR 11/2019 COLONOSCOPY FLX DX W/COLLJ SPEC WHEN PFRMD 03/23/2004 Colonoscopy COLONOSCOPY FLX DX W/COLLJ SPEC WHEN PFRMD 05/05/2008 Colonoscopy, repeat 10 yrs PAST SURGICAL HISTORY OF 04/14/2004 excision of lesion neck PAST SURGICAL HISTORY OF 02/21/1992 lesion removed from rectum Family History Problem Relation Age of Onset Stroke Father other (lupus) Sister Diabetes Brother Diabetes Brother Social History Tobacco Use Smoking status: Never Smokeless tobacco: Never Substance Use Topics Alcohol use: No Drug use: Never EVALUATION Patient presents with: Established Patient 0 (more content not included)... Normal [facility] Basic metabolic 2000 panelon 09-08-2023 Anion gap [Moles/Vol] 10 mmol/L Normal 9-18 [facility] Comment on above: Order Comment: Speci men Type: BLOOD SPECIMEN Ordering Facility: [facility] Address: [address] [place] [address] Performed By: #### C NDAGM #### [facility] CLIA [id number] [address] [place] [address] Calcium [Mass/Vol] 9.3 mg/dL Normal 8.5-10.2 [facility] Comment on above: Order Comment: Speci men Type: BLOOD SPECIMEN Ordering Facility: [facility] Address: [address] [place] [address] Performed By: #### C NDAGM #### [facility] CLIA [id number] [address] [place] [address] Chloride [Moles/Vol] 107 mmol/L High 97-105 [facility] Comment on above: Order Comment: Speci men Type: BLOOD SPECIMEN Ordering Facility: [facility] Address: [address] [place] [address] Performed By: #### C NDAGM #### [facility] CLIA [id number] [address] [place] [address] CO2 [Moles/Vol] 23 mmol/L Normal 22-[address] [facility] Comment on above: Order Comment: Speci men Type: BLOOD SPECIMEN Ordering Facility: [facility] Address: [address] [place] [address] Performed By: #### C NDAGM #### [facility] CLIA [id number] [address] [place] [address] Creatinine [Mass/Vol] 1.34 mg/dL High 0.73-1.22 [facility] Comment on above: Order Comment: Speci men Type: BLOOD SPECIMEN Ordering Facility: [facility] Address: [address] [place] [address] Performed By: #### C NDAGM #### [facility] IA [id number] [address] [place] [address] Creatinine and Glomerular filtration rate.predicted panel (S/P/Bld) 52 mL/min/1.73m??? Low >=[address] [facility] Comment on above: Order Comment: Speci men Type: BLOOD SPECIMEN Ordering Facility: [facility] Address: [address] [place] [address] Result Comment: Raquel mated Glomerular Filtration Rate (eGFR) is calculated using the 2020 CKD-EPI creatinine equation. This equation utilizes serum creatinine, sex, and age as parameters. The creatinine assay has traceable calibration to isotope dilution-mass spectrometry. Refer to KDIGO guidelines for clinical interpretation. In patients with unstable renal function, e.g. those with acute kidney injury, the eGFR may not accurately reflect actual GFR. Performed By: #### C NDAGM #### [facility] CLIA [id number] [address] [place] [address] Glucose [Mass/Vol] 146 mg/dL High 74-99 [facility] Comment on above: Order Comment: Speci men Type: BLOOD SPECIMEN Ordering Facility: [facility] Address: [address] [place] [address] Result Comment: The [place] Diabetes Association (ADA) provides guidance for cutoff values for fasting glucose and random glucose. The ADA defines fasting as no caloric intake for at least 8 hours. Fasting plasma glucose results between 100 to 125 mg/dL indicate increased risk for diabetes (prediabetes). Fasting plasma glucose results greater than or equal to 126 mg/dL meet the criteria for diagnosis of diabetes. In the absence of unequivocal hyperglycemia, results should be confirmed by repeat testing. In a patient with classic symptoms of hyperglycemia or hyperglycemic crisis, random plasma glucose results greater than or equal to 200 mg/dL meet the criteria for diagnosis of diabetes. Reference: Standards of Medical Care in Diabetes 2016, [place] Diabetes Association. Diabetes Care. 2016.39(Suppl 1). Performed By: #### C NDAGM #### [facility] CLIA [id number] [address] [place] [address] Potassium [Moles/Vol] 4.2 mmol/L Normal 3.7-5.1 [facility] Comment on above: Order Comment: Shani graham Type: BLOOD SPECIMEN Ordering Facility: [facility] Address: [address] [place] [address] Performed By: #### C NDAGM #### [facility] CLIA [id number] [address] [place] [address] Sodium [Moles/Vol] 140 mmol/L Normal 136-144 [facility] Comment on above: Order Comment: Shani graham Type: BLOOD SPECIMEN Ordering Facility: [facility] Address: [address] [place] [address] Performed By: #### C NDAGM #### [facility] CLIA [id number] [address] [place] [address] Urea nitrogen [Mass/Vol] 21 mg/dL Normal 9-[address] [facility] Comment on above: Order Comment: Shani graham Type: BLOOD SPECIMEN Ordering Facility: [facility] Address: [address] [place] [address] Performed By: #### C NDAGM #### [facility] CLIA [id number] [address] [place] [address] CBC panel Auto (Bld)on 09-08 Erythrocyte distribution width (RBC) [Ratio] 14.6 % Normal 11.5-15.[address] [facility] Comment on above: Order Comment: Shani graham Type: BLOOD SPECIMENOrdering Facility: [facility] Address: [address] [place] [address] Performed By: #### 5 8410-2 ####[facility] [id number] [place] [address] [place] Hematocrit (Bld) [Volume fraction] 39.6 % Normal 39.0-51.[address] [facility] Comment on above: Order Comment: Speci men Type: BLOOD SPECIMENOrdering Facility: [facility] Address: [address] [place] [address] Performed By: #### 5 8410-2 ####[facility] LABIA [id number] [place] [address] [place] Hemoglobin (Bld) [Mass/Vol] 12.7 g/dL Low 13.0-17.[address] [facility] Comment on above: Order Comment: Speci men Type: BLOOD SPECIMENOrdering Facility: [facility] Address: [address] [place] [address] Performed By: #### 5 8410-2 ####[facility] [id number] [place] [address] [place] MCH (RBC) [Entitic mass] 30.2 pg Normal 26.0-34.[address] [facility] Comment on above: Order Comment: Speci men Type: BLOOD SPECIMENOrdering Facility: [facility] Address: [address] [place] [address] Performed By: #### 5 8410-2 ####[facility] LABCLIA [id number] [place] [address] [place] MCHC (RBC) [Mass/Vol] 32.1 g/dL Normal 30.5-36.0 [facility] Comment on above: Order Comment: Speci men Type: BLOOD SPECIMENOrdering Facility: [facility] Address: [address] [place] [address] Performed By: #### 5 8410-2 ####[facility] LABIA [id number] [place] [address] [place] MCV (RBC) [Entitic vol] 94.1 fL Normal 80.0-100.[address] [facility] Comment on above: Order Comment: Speci men Type: BLOOD SPECIMENOrdering Facility: [facility] Address: [address] [place] [address] Performed By: #### 5 8410-2 ####[facility] LABCLIA [id number] [place] [address] [place] Nucleated RBC (Bld) [#/Vol] 10*3/uL Normal <0.[address] [facility] Comment on above: Order Comment: Speci men Type: BLOOD SPECIMENOrdering Facility: [facility] Address: [address] [place] [address] Performed By: #### 5 8410-2 ####[facility] LABCLIA [id number] [place] [address] [place] Platelet mean volume (Bld) [Entitic vol] 12.0 fL Normal 9.0-12.[address] [facility] Comment on above: Order Comment: Speci men Type: BLOOD SPECIMENOrdering Facility: [facility] Address: [address] [place] [address] Performed By: #### 5 8410-2 ####[facility] LABCLIA [id number] [place] [address] [place] Platelets (Bld) [#/Vol] 201 10*3/uL Normal 150-[address] [facility] Comment on above: Order Comment: Speci men Type: BLOOD SPECIMENOrdering Facility: [facility] Address: [address] [place] [address] Performed By: #### 5 8410-2 ####[facility] LABCLIA [id number] [place] [address] [place] RBC (Bld) [#/Vol] 4.21 10*6/uL Normal 4.20-6.00 [facility] Comment on above: Order Comment: Speci men Type: BLOOD SPECIMENOrdering Facility: [facility] Address: [address] [place] [address] Performed By: #### 5 8410-2 ####[facility] LABCLIA [id number] [place] [address] [place] WBC (Bld) [#/Vol] 6.61 10*3/uL Normal 3.70-11.00 [facility] Comment on above: Order Comment: Speci men Type: BLOOD SPECIMENOrdering Facility: [facility] Address: [address] [place] [address] Performed By: #### 5 8410-2 ####[facility] LABCLIA [id number] [place] [address] [place] HbA1c (Bld)on 09-08-2023 Average glucose Estimated from glycated hemoglobin (Bld) [Mass/Vol] 134 mg/dL Normal [facility] Comment on above: Order Comment: Speci men Type: BLOOD SPECIMENOrdering Facility: [facility] Address: [address] [place] [address] Result Comment: eAG: (Estimated average glucose) is a calculated value from HgbA1c and is life assurance representative of the average blood glucose level in the last 2-3 month period. Performed By: #### 5 5454-3 ####[facility] LABCLIA [id number] [place] [address] [place] HbA1c (Bld) [Mass fraction] 6.3 % High 4.3-5.[address] [facility] Comment on above: Order Comment: Speci [facility] Type: BLOOD SPECIMENOrdering Facility: [facility] Address: [address] [place] [address] Result Comment: [place] Diabetes Association guidelines indicate that patients with HgbA1c in the range 5.7-6.4% are at increased risk for development of diabetes, and intervention by lifestyle modification may be beneficial. HgbA1c greater or equal to 6.5% is considered diagnostic of diabetes. Performed By: #### 5 5454-3 ####[facility] LABCLIA [id number] [address] [address] [place] CNOVon 08-21-2023 CNOV Office Visit (DERMTW ) RALPHSERGO ([id number]) 1935 M Date Time Provider Department 08/21/23 11:20 AM LESA MERAZ DERMTW During your visit today, we recorded the following information about you: Lesa Meraz MD 08/21/2023 2:18 PM Signed EST PATIENT LISA in Dermatology: 07/26/2022 Sergo Rosas is a 88 year old male who presents today for Patient presents with: LESION, SKIN Current Treatment: Emu oil Past Treatment: Retinol History of nonmelanoma skin cancer: denies History of Melanoma: denies Family history of skin cancer: denies Dermatology History: Specialty Problems None Allergies: Gluten Past Medical History: PAST MEDICAL HISTORY Diagnosis Date Abdominal aortic aneurysm without rupture (HCC) 03/11/[address] Singh Benign prostatic hyperplasia with urinary hesitancy 12/13/2019 Had 10h of urinary retention, Voided x2 since chang removed but small volume Begun on flomax 12/11 Obtain postvoid residual to ensure no overflow incontinence Bilateral carotid artery stenosis 08/20/2018 Celiac disease 08/31/2010 Disorders of bursae and tendons in shoulder region, unspecified 09/08/2013 Diverticulosis of large intestine Elevated hemoglobin A1c 02/10/2021 Hypertension, essential 02/02/2018 Internal hemorrhoids without mention of complication 05/05/2008 Mixed hyperlipidemia 11/30/2010 Peripheral vascular disease (HCC) 02/25/2016 Stage 3a chronic kidney disease (HCC) 02/10/2021 Stroke, Ischemic - Right Parietal, Right Temporal-Occipital, Middle Cerebral Peduncle AND Right Cerebellar 03/2023 Synovial cyst of right popliteal space 02/14/2022 Vitamin D deficiency 04/06/2009 MEDS: Current Outpatient Medications on File Prior to Visit Medication Sig COQ10, UBIQUINOL, ORAL Take by mouth. amLODIPine (NORVASC) 5 mg tablet Take 1 tablet in the AM and 1/2 tablet in the PM. magnesium chloride (MAG64) [address] tablet TAKE 2 TABLETS BY MOUTH EVERY DAY Yeast Formula ([employer]) Take 2 enteric-coated softgels between meals twice daily (Patient not taking: Reported on 08/08/2023) atorvastatin (LIPITOR) 40 mg tablet Take 1 tablet by mouth daily at bedtime. testosterone 100 mg/ml cream (CPD) Apply 0.5 mL to affected area once daily. clopidogrel (PLAVIX) 75 mg tablet Take 1 tablet by mouth once daily. tamsulosin (FLOMAX) 0.4 mg Take 1 capsule by mouth once daily. metoprolol tartrate, short acting, (LOPRESSOR) 50 mg tablet Take 1 tablet by mouth twice daily. cholecalciferol (VITAMIN D3) 5,000 unit tab Take 1 tablet by mouth once daily. Current Facility-Administered Medications on File Prior to Visit Medication perflutren lipid microspheres 1.3 mL in NaCl (PF) 0.9% 10 mL injection (DEFINITY) sodium chloride 0.9 % (flush) 10 mL (BD POSIFLUSH) Review of systems NA Has pacemaker / defibrillator No Takes aspirin / anticoagulant daily Yes: Plavix Has valve disorders No Other problems elsewhere on skin No Glenda Marshall RN The above was entered by the nursing staff. I have reviewed the documentation and I concur. Lesa Meraz MD HPI: Chief Complaint lesion Location Left ear Duration 1 year Timing constant Severity mild Quality Dry, flakey Chief Complaint itching Location Entire body Duration 3 years Timing constant Severity mild Quality itching Modifying Factors: -itches all day long, not worse at night. Originally started as a rash on his back many years ago. Has used. Sarna without much relief. Physical Exam - Area(s) Examined: The pt is alert and oriented, in NAD. Skin examination of head/face preauricular areas was significant for: Items identified on Diagram above Scaly plaque left pinna and right pre-auricular cheek Component Latest Ref Rng AND Units 04/05/2023 04/24/2023 05/05/2023 WBC 3.70 - 11.00 k/uL 8.65 RBC 4.20 - 6.00 m/uL 4.09 (L) Hemoglobin 13.0 - 17.0 g/dL 12.7 (L) Hematocrit 39.0 - 51.0 % 35.7 (L) MCV 80.0 - 100.0 fL 87.3 MCH 26.0 - 34.0 pg 31.1 MCHC 30.5 - 36.0 g/dL 35.6 RDW-CV 11.5 - 15.0 % 14.3 Platelet Count 150 - 400 k/uL 200 MPV 9.0 - 12.7 fL 10.4 Neut% % 67.6 Abs Neut (ANC) 1.45 - 7.50 k/uL 5.84 Lymph% % 17.2 Abs Lymph 1.00 - 4.00 k/uL 1.49 Appling% % 11.0 Abs Appling <0.87 k/uL 0.95 (H) Eosin% % 3.6 Abs Eosin <0.46 k/uL 0.31 Baso% % 0.3 Abs Baso <0.11 k/uL 0.03 Immature Gran % % 0.3 IMMATURE GRANS (ABS) <0.10 k/uL 0.03 NRBC /100 WBC 0.0 Absolute nRBC <0.01 k/uL <0.01 DTYPE Auto Glucose 74 - 99 mg/dL 100 (H) BUN 9 - 24 mg/dL 21 Creatinine 0.73 - 1.22 mg/dL 1.33 (H) Sodium 136 - 144 mmol/L 137 Potassium 3.7 - 5.1 mmol/L 4.6 Chloride 97 - 105 mmol/L 101 CO2 22 - 30 mmol/L 26 Anion Gap 9 - 18 mmol/L 10 Calcium 8.5 - 10.2 mg/dL 9.4 eGFR >=60 mL/min/1.73mA? 52 (L) Hemoglobin A1C 4.3 - 5.6 % 6.5 (H) Estimated Average Glucose mg/dL 140 Component (more content not included)... Normal [facility] Ricardo 08-10-2023 [facility]OK[facility] Telephone (RAGINI) HEADINGS,SERGO Suárez ([id number]) 1935 M Date Time Provider Department 08/10/23 WALTER NUÑEZ During your visit today, we recorded the following information about you: Yuliana Smith 08/10/2023 11:32 AM Signed Patient has been identified by name and date of : Yes Type of form: [facility] Holter Monitor Form received via: Fax Form has been forwarded to: Koki Centeno RN 08/10/2023 1:11 PM Signed Received fax from [employer] for results for Holter Monitor worn from 04/25/2023-05/08/2023 LISA 06/23/2023 NOV 2024 On desk for review, will send for scanning after review Bonnie Ross APRN.PENNIE 08/11/2023 12:19 PM S[address] Plan for Dr. Nuñez. Reviewed [facility] 12-day event monitor results. Minimum heart rate 43 bpm average 62 bpm Max 176 bpm 4 beats of SVT, he currently takes metoprolol ventricular ectopy less than 1% of the time supraventricular ectopy less than 1% of the time no evidence of atrial fibrillation Please notify patient Please have records scanned into epic Bonnie Ross APRN.Koki Mathis RN 08/11/2023 12:30 PM Signed Spoke to pt in regards to below message, verbalized understanding Sent for scanning Allergies As of Date: 08/10/2023 Noted Allergy Reaction GLUTEN 09/23/2011 6 - Diarrhea Comments: Upset stomach Gas build up Date Reviewed: 08/08/2023 Reviewed by: Vernell Martinez PA-C - Fully Assessed Prescriptions as of 08/11/2023 - COQ10, UBIQUINOL, ORAL Take by mouth. - amLODIPine (NORVASC) 5 mg tablet Take 1 tablet in the AM and 1/2 tablet in the PM. - magnesium chloride (MAG64) [address] tablet TAKE 2 TABLETS BY MOUTH EVERY DAY - Yeast Formula ([employer]) Take 2 enteric-coated softgels between meals twice daily - atorvastatin (LIPITOR) 40 mg tablet Take 1 tablet by mouth daily at bedtime. - testosterone 100 mg/ml cream (CPD) Apply 0.5 mL to affected area once daily. - clopidogrel (PLAVIX) 75 mg tablet Take 1 tablet by mouth once daily. - tamsulosin (FLOMAX) 0.4 mg Take 1 capsule by mouth once daily. - metoprolol tartrate, short acting, (LOPRESSOR) 50 mg tablet Take 1 tablet by mouth twice daily. - cholecalciferol (VITAMIN D3) 5,000 unit tab Take 1 tablet by mouth once daily. Facility-Administered Medications as of 08/11/2023 - perflutren lipid microspheres 1.3 mL in NaCl (PF) 0.9% 10 mL injection (DEFINITY) - sodium chloride 0.9 % (flush) 10 mL (BD POSIFLUSH) Meds Comments as of 02/01/2021: Magnesium once daily, Maxxum 4 multi-vitamin po bid -(Maria Luisa Pulse NAC, CO-Q-10 + PQQ), Methyl-Folate - 400 mcg daily, , Aqua Micki HP9 - 1 tsp bid and JarroSil 4 mg daily. 02/01/21 Aqua Fora 2 tablespoons daily Problem List As Of Date 08/10/2023 Noted Resolved Diverticulosis of large intestine [K57.30] Diarrhea [R19.7] 05/05/2008 Internal hemorrhoids without mention of complic*05/05/2008 Vitamin D deficiency [E55.9] 04/06/2009 Celiac disease [K90.0] 08/31/2010 Mixed hyperlipidemia [E78.2] 11/30/2010 Right shoulder pain [M25.511] 09/08/2013 09/18/2014 Disorders of bursae and tendons in shoulder reg*09/08/2013 Peripheral vascular disease (HCC) [I73.9] 02/25/2016 Abdominal aortic aneurysm without rupture (HCC)*03/11/2016 Medicare annual wellness visit, subsequent [Z00*02/08/2017 Neck pain, chronic [M54.2, G89.29] 04/25/2017 Hypertension, essential [I10] 02/02/2018 Bilateral carotid artery stenosis [I65.23] 08/20/2018 Benign prostatic hyperplasia with urinary hesit*12/13/2019 Stage 3 chronic kidney disease (HCC) [N18.30] 02/10/2021 Elevated hemoglobin A1c [R73.09] 02/10/2021 Acute diarrhea [R19.7] 03/01/2021 Hyponatremia [E87.1] 03/01/2021 Hypokalemia [E87.6] 03/02/2021 Severe protein-calorie malnutrition (HCC) [E43] 03/04/2021 Synovial cyst of right popliteal space [M71.21] 02/14/2022 Nonrheumatic aortic valve insufficiency, modera*03/02/2023 Acute ischemic stroke (HCC) [I63.9] 04/04/2023 Rib fractures [S22.49XA] 04/04/2023 Traumatic pneumothorax [S27.0XXA] 04/04/2023 04/06/2023 Cerebrovascular accident (CVA) (HCC) [I63.9] 06/23/2023 Encounter Status:Closed by KOKI BAE on 08/11/23 [facility] Telephone (NEMOWS) HEADINGS,SREGO Suárez ([id number]) 1935 M Date Time Provider Department 08/10/23 VERNELL MARTINEZ During your visit today, we recorded the following information about you: Allergies As of Date: 08/10/2023 Noted Allergy Reaction GLUTEN 09/23/2011 6 - Diarrhea Comments: Upset stomach Gas build up Date Reviewed: 08/08/2023 Reviewed by: Vernell Martinez PA-C - Fully Assessed Prescriptions as of 10/09/2023 - metoprolol tartrate, short acting, (LOPRESSOR) 50 mg tablet Take 1 tablet by mouth two times a day. - MEDICATION, NON-DATABASE Algae Jared - Oil of Oregano 150 mg[address] 60 ct[address] ([employer]) Take 1 softgel daily, with meals. - Saccharomyces Boulardii 60 ct. (Klaire/Prothera) Take 1 capsule by mouth two times a day with meals. - hydrocortisone 2.5 % ointment Apply to itchy areas once daily - COQ10, UBIQUINOL, ORAL Take by mouth. - amLODIPine (NORVASC) 5 mg tablet Take 1 tablet in the AM and 1/2 tablet in the PM. - magnesium chloride (MAG64) [address] tablet TAKE 2 TABLETS BY MOUTH EVERY DAY - Yeast Formula ([employer]) Take 2 enteric-coated softgels between meals twice daily - atorvastatin (LIPITOR) 40 mg tablet Take 1 tablet by mouth daily at bedtime. - testosterone 100 mg/ml cream (CPD) Apply 0.5 mL to affected area once daily. - clopidogrel (PLAVIX) 75 mg tablet Take 1 tablet by mouth once daily. - tamsulosin (FLOMAX) 0.4 mg Take 1 capsule by mouth once daily. - cholecalciferol (VITAMIN D3) 5,000 unit tab Take 1 tablet by mouth once daily. Facility-Administered Medications as of 10/09/2023 - perflutren lipid microspheres 1.3 mL in NaCl (PF) 0.9% 10 mL injection (DEFINITY) - sodium chloride 0.9 % (flush) 10 mL (BD POSIFLUSH) Meds Comments as of 02/01/2021: Magnesium once daily, Maxxum 4 multi-vitamin po bid -(Maria Luisa Pulse NAC, CO-Q-10 + PQQ), Methyl-Folate - 400 mcg daily, , Aqua Micki HP9 - 1 tsp bid and JarroSil 4 mg daily. 02/01/21 Aqua Fora 2 tablespoons daily Problem List As Of Date 08/10/2023 Noted Resolved Diverticulosis of large intestine [K57.30] Diarrhea [R19.7] 05/05/2008 Internal hemorrhoids without mention of complic*05/05/2008 Vitamin D deficiency [E55.9] 04/06/2009 Celiac disease [K90.0] 08/31/2010 Mixed hyperlipidemia [E78.2] 11/30/2010 Right shoulder pain [M25.511] 09/08/2013 09/18/2014 Disorders of bursae and tendons in shoulder reg*09/08/2013 Peripheral vascular disease (HCC) [I73.9] 02/25/2016 Abdominal aortic aneurysm without rupture (HCC)*03/11/2016 Medicare annual wellness visit, subsequent [Z00*02/08/2017 Neck pain, chronic [M54.2, G89.29] 04/25/2017 Hypertension, essential [I10] 02/02/2018 Bilateral carotid artery stenosis [I65.23] 08/20/2018 Benign prostatic hyperplasia with urinary hesit*12/13/2019 Stage 3 chronic kidney disease (HCC) [N18.30] 02/10/2021 Elevated hemoglobin A1c [R73.09] 02/10/2021 Acute diarrhea [R19.7] 03/01/2021 Hyponatremia [E87.1] 03/01/2021 Hypokalemia [E87.6] 03/02/2021 Severe protein-calorie malnutrition (HCC) [E43] 03/04/2021 Synovial cyst of right popliteal space [M71.21] 02/14/2022 Nonrheumatic aortic valve insufficiency, modera*03/02/2023 Acute ischemic stroke (HCC) [I63.9] 04/04/2023 Rib fractures [S22.49XA] 04/04/2023 Traumatic pneumothorax [S27.0XXA] 04/04/2023 04/06/2023 Cerebrovascular accident (CVA) (HCC) [I63.9] 06/23/2023 Encounter Status:Closed by ELKIN TAPIA on 10/09/23 [facility] CNOVon 08-08-2023 CNOV Office Visit (JOHN ) HEADINGS,SERGO Suárez ([id number]) 1935 M Date Time Provider Department 08/08/23 10:00 AM VERNELL MARTINEZ During your visit today, we recorded the following information about you: Pulse Respiration Blood pressure Weight 61/minute 16/minute 118/64 68.8 kg Elkin Tapia LPN 08/08/2023 10:28 AM Signed 08/07/2023 [facility] Physical Health Summary Physical health: Good Everyday physical activity, ability: Completely Fatigue: Mild Pain level: 0 No Pain General health: Good Social activities/roles, ability: Excellent Physical Health T-Score 54.1 (Very Good) Physical Health Percentile 66 [facility] Mental Health Summary Quality of life: Very good Mental health (mood,thinking): Very good Social satisfaction: Excellent Emotional problems (anxious,depressed): Never Mental Health T-Score 59 (Excellent) Mental Health Percentile 82 Percentiles provide an indication of how a patient's score ranks in relation to the [place] general population. > 31st percentile is within normal limits or better *< 31st percentile is at least ? SD worse than population, which may be clinically relevant < 16th percentile is at least 1 SD worse than population and warrants attention Sleep Apnea Probability There is no data to display for this encounter Vernell Martinez PA-C 08/08/2023 10:28 AM Signed ESTABLISHED PATIENT VISIT Last visit: 05/03/23 Assessment AND Plan: Sergo Rosas is a 88 year old right-handed male with a history of CVA, HLD, AAA, PVD, HTN, CKD stage 3. His examination demonstrates mild left sided weakness in the upper extremity. Visual deficits in the left peripheral, mild dysmetria with finger to nose testing on the left, minimally hyperreflexic on the left upper extremity. Patient with acute right-sided stroke on 04-01-2023 where he experienced left hand weakness. Patient denies any interventions while he was admitted. CTA head and neck did show mild carotid stenosis bilaterally, he is currently followed through vascular specialist for this as well as AAA. Has not seen a specialist since he was discharged. Currently taking Lipitor 40 mg, last LDL was 96. Patient also on blood pressure medications with blood pressure today at 133/68. Patient was put on dual antiplatelet therapy and is still taking both aspirin and Plavix at this time, notes that it was started while he was admitted and they are unsure when to stop it. It has been 21 days. As patient was on aspirin prior to the onset of his stroke, will continue with Plavix therapy, Plavix 75 mg daily for stroke prevention. Discussed with patient and family, they agree and understand. Patient currently having to go to therapy visit his home, notes that he is improving daily in regards to his weakness. On exam, note minimal decrease in strength to the left upper extremity, mild dysmetria with finger-nose testing. Encourage patient to continue regular exercise and strengthening. Discussed at length risk factors for stroke and to maximize prevention, patient and family agree and understand. Additionally, discussed increased bleeding risk while on Plavix, should patient hit his head or have any injury trauma was evaluated as there is a risk for intracranial bleed. Patient and family understand this. Regarding etiology of the stroke, patient does have history of mild carotid stenosis and is currently wearing a 14-day Holter monitor to evaluate for any arrhythmia. Echo did not show any signs of clot or PFO. Patient without previous history of stroke in the past, unlikely hypercoagulable disorder. Patient also found to have hyponatremia, was taking salt tablets daily and just finished his last dosage today. He is unsure if he should continue this therapy, will reach out to primary care. Patient also with left-sided visual field deficits in the periphery, would like to see an eye doctor, encouraged to do so to maximize vision and update prescription if necessary. Patient and family agreeable to treatment plan of care at this time, all questions were answered. Patient to follow-up in 3 months or sooner should any symptoms change or worsen. Segro was seen today for new patient. CHIEF COMPLAINT: follow up HISTORY OF PRESENT ILLNESS: Sergo Rosas is a 88 year old male, There were no vitals taken for this visit. with a PMH significant for CVA, HLD, AAA, PVD, HTN, CKD stage 3. Last seen 05/03/23 for R CVA, was on ASA prior, will continue plavix. Was currently wearing a holter. Patient presents with for follow-up. Patient has been doing well since last visit, notes improvement in his vision as well as the strength on the left side. Notes that he saw an eye doctor and had a normal exam, there was concerns for some left peripheral vision loss but he states this is resolved. Has not been (more content not included)... Normal [facility] Basic metabolic 2000 panelon 05-06-2023 Anion gap [Moles/Vol] 10 mmol/L 9 - 18 mmol/L [facility] Calcium [Mass/Vol] 9.4 mg/dL 8.5 - 10. 2 mg/dL [facility] Chloride [Moles/Vol] 101 mmol/L 97 - 10 5 mmol/L [facility] CO2 [Moles/Vol] 26 mmol/L 22 - 30 mmol/L [facility] Creatinine [Mass/Vol] 1.33 mg/dL High 0.73 - 1.22 mg/dL [facility] Estimated Glomerular Filtration Rate 52 mL/min/1.73m Low >=60 mL/min/1.73m [facility] Glucose [Mass/Vol] 100 mg/dL High 74 - 99 mg/dL [facility] Potassium [Moles/Vol] 4.6 mmol/L 3.7 - 5.1 mmol/L [facility] Sodium [Moles/Vol] 137 mmol/L 136 - 144 mmol/L [facility] Urea nitrogen [Mass/Vol] 21 mg/dL 9 - 24 mg/dL [facility] CNDSon 04-06-2023 CN HNO ID: [id number] Author: Christine Barragan DO Service: Hospital Medicine Author Type: Physician Type: Discharge Summary Filed: 04/08/2023 11:43 AM Note Text: DISCHARGE SUMMARY PATIENT NAME: Sergo Suárez Headings Code Status: Full Code Highest Readmission Risk Score: 29 The 30 day readmissions risk score is derived from an internally validated risk model which evaluates patient level characteristics, utilization history, medication orders and lab results up until the day of discharge. Patients with a score of 40 or above are considered highest risk for readmission. Specific patient level drivers will be listed at the bottom of the summary. Admission Information Admission Information ADMIT DATE: 04/01/2023 DISCHARGE DATE: 04/06/2023 MY DOCTORS AND MEDICAL TEAM: [facility] Doctor: Christine Barragan DO Primary Care Provider: Kezia Dubose MD My Medical Team Members: Treatment Team: Attending Provider: Christine Barragan DO Attending: MR OCTAVIA KENNEY MY CONDITION AT DISCHARGE: Stable REASON I WAS IN THE HOSPITAL: Acute stroke SUMMARY OF WHAT HAPPENED WHILE I WAS IN THE HOSPITAL: Patient was admitted and seen by neurology for acute stroke confirmed on MRI left-sided deficits started on dual antiplatelet with aspirin and Plavix risk stratified started on statin therapy PT and OT recommended rehabilitation with nursing facility patient agreeable and placed accordingly had also fallen with rib fractures and pneumothorax was seen by trauma surgery and pneumothorax eventually resolved OTHER PROBLEMS/DIAGNOSIS: Active Problems: Acute ischemic stroke (HCC) Rib fractures Normocytic anemia BPH Hypertension Aortic insufficiency Resolved Problems: Traumatic pneumothorax OPERATIONS PERFORMED WHILE IN THE HOSPITAL: None IMPORTANT TEST/PROCEDURES: No procedures performed TEST RESULTS NOT AVAILABLE AT THIS TIME: No pending results Discharge Disposition Discharge Disposition: Snf Facility - Less than 30 Days Activity When You Leave the Hospital Limited to: PT and OT to evaluate and treat Diet Instructions Regular Follow Up Appointments Follow-Up Appointment When: In 3 weeks Anson Prater DO [phone] [facility] [phone] PCP Requested Referral Additional Provider to Provider Information: Treatment Team: Attending Provider: Christine Barragan DO Attending: MR OCTAVIA KENNEY Transitions of Care Critical Issues: SPECIALIST FOLLOW-UP: Neurology LABS AND PROCEDURES PENDING AT DISCHARGE: No pending results. FOLLOW-UP APPOINTMENTS ALREADY SCHEDULED WITH A [facility] PROVIDER: Future Appointments Date Time Provider Department Center 05/15/2023 3:30 PM Kathy Huggins MD [facility] [place] 06/23/2023 9:00 AM ECHOCARDIOGRAM INDP [facility] Ind 06/23/2023 1:30 PM Walter Nuñez MD [facility] Indp 06/26/2023 11:20 AM Kevin Bhagat APRN.BUILDING SPECIALIST IN[facility] Discharge Information Row Name ED to Hosp-Admission (Current) from 04/01/2023 in [facility] 9M TCU/MED Rehab Facility Agency [facility] Acute Rehab [phone] ALLERGIES Allergen Reactions Gluten Diarrhea Upset stomach Gas build up DISCHARGE MEDICATION: Medication List START taking these medications acetaminophen 500 mg tablet Commonly known as: TYLENOL Take 1 tablet by mouth every 6 hours as needed for pain. aspirin 81 mg chewable tablet 1 tablet by ORAL/FEEDING TUBE route once daily for 15 days. Replaces: Aspirin 81 mg Tab atorvastatin 40 mg tablet Commonly known as: LIPITOR Take 1 tablet by mouth daily at bedtime. clopidogrel 75 mg tablet Commonly known as: PLAVIX Take 1 tablet by mouth once daily. lidocaine 4 % patch Commonly known as: SALONPAS Apply 1 Patch as directed once daily. Reinforce with abd for splinting ribs methocarbamol 500 mg tablet Commonly known as: ROBAXIN Take 1 tablet by mouth twice daily. oxyCODONE IR 5 mg immediate release tablet Commonly known as: ROXICODONE Take 0.5 tablets by mouth every 6 hours as needed. CONTINUE taking these medications amLODIPine 5 mg tablet Commonly known as: NORVASC Take 1 tablet by mouth once daily. cholecalciferol 5,000 unit Tab Commonly known as: VITAMIN D3 metoprolol tartrate (short acting) 50 mg tablet Commonly known as: LOPRESSOR Take 1 tablet by mouth twice daily. tamsulosin 0.4 mg Commonly known as: FLOMAX Take 1 capsule by mouth once daily. STOP taking these medications Aspirin 81 mg Tab Replaced by: aspirin 81 mg chewable tablet budesonide, enteric coated 3 mg 24 hr capsule Commonly known as: ENTOCORT EC cholestyramine 4 gram packet Commonly known as: QUESTRAN Herbal Drugs Cap L-GLUTAMINE 500 mg Cap Generic drug: Glutamine a-eajktphfl-qedxtpza root extract-aloe leaf extract powder Commonly known as: GLUTAGENICS milk thistle seed extract 200 mg Cap OTC PRODUCT OTC PRODUCT (more content not included)... [facility] THERAPY NT 04-06-2023 THERAPY NT [facility] [place] ID: [id number] Author: SHASTA Keller Service: Occupational Therapy Author Type: Senior Writer Type: Therapy (PT/OT/Speech/Resp) Filed: 04/06/2023 1:54 PM Note Text: Attestation signed by MONTY Valles at 04/06/2023 2:05 PM I reviewed and agree with the documentation corresponding to this therapy visit. SIGNATURE: MONTY Braga DATE: April 06, 2023 TIME: 2:05 PM Occupational Therapy Treatment SERVICE DATE: 04/06/2023 SERVICE TIME: 0945 to 1015 ROOM: [place] [address] Recommended Discharge Disposition: Acute Rehab Recommended Discharge Disposition Comments: Pt would benefit from ADL/IADL retraining following discharge to optimize occupational performance as needed for everyday living activities. Recommended Discharge Disposition Due to: Patient requires an active, intensive rehabilitation therapy program due to:, Patient requires daily, facility-based rehabilitation from at least one discipline due to:, ADL impairment resulting in caregiver dependence Anticipated Discharge Needs: Physical Assist at Home, Supervision at Home Physical Assist at Home for: Cleaning, Laundry, Meals, Safety, Self Care, Transportation, Shopping Supervision at Home due to: Decreased safety awareness Recommended Discharge Equipment: To Be Determined OT 6 Clicks Score: 16 Precautions/Activity Restrictions: Fall Risk Precaution/Activity Restriction Comments: L rib fx's, log roll Current Hospital Course: FALL WHILE IN BATHROOM WITH FRACTURE OF LEFT 8,9 AND 10 TH RIBS AND SMALL LEFT PNEUMOTHORAX Reason for Hospital Admission: Left arm weakness, stroke workup; acute infarct of Right inferior parietal lobe Relevant Past Medical History: HTN Occupational Therapy Problem List: Pain, Safety Deficits, Impaired Self Care, Decreased Activity Tolerance, Decreased Strength, Balance Impaired Treatment Interventions: Education, Self Care/Home Management, Energy Conservation Training, Strengthening, Balance Training Home Environment Patient Lives With: Spouse Assistance Available: 24-Hour Entry To Home: Ramp Number Of Stairs To Bed/Bath: 0 Tub/Shower Type: WIS and Tub shower Laundry: on 1st floor but does Equipment Owned: Cane, Commode- Raised Prior Functional Level: Within Functional Limits Prior Functional Level Comments: Patient and love to walk in mohan. He was not using a cane or a walker prior to admit Baseline Cognition: Oriented to situation, Oriented to time, Oriented to place, Oriented to self Occupational Factors Life Roles: Parent, Family Member Identified Strengths: Good Support System, Open to Adaptive Equipment/Strategies, Access to Healthcare Identified Barriers: Medical Acuity/Chronic Condition, Difficulty with ADLs/IADLs CURRENT FUNCTIONAL STATUS: Most recent performance Current Activities of Daily Living Assist Level Additional Information Feeding Independent Grooming Supervision (ORAL CARE AND COMBING HAIR) Bathing Upper Body Minimal Assistance Bathing Lower Body Maximal Assistance Dressing Upper Body Minimal Assistance Dressing Lower Body Maximal Assistance Toileting Maximal Assistance Instrumental Activities of Daily Living Assist Level Additional Information Meal/Beverage Prep Cleaning Laundry Medication Management with Strategies Functional Mobility Assist Level Additional Information Rolling Supine to Sit Maximal Assistance, Additional Information Sit to Supine Maximal Assistance Scooting Sit to Stand Minimal Assistance Stand to Sit Minimal Assistance Bed to Chair Minimal Assistance (RECLINER TO BED (PT HAD BEEN SITTING IN RECLINE FOR TWO HOURS) Stepping Wheeled Walker Toilet/Commode Minimal Assistance, Additional Information Shower Functional Mobility Minimal Assistance, Additional Information None Blank izaguirre indicate activity not attempted Balance: Static Sitting, Dynamic Sitting, Static Standing, Dynamic Standing Static Sitting Balance: Normal Patient able to maintain steady balance without handhold support Dynamic Sitting Balance: Fair Patient accepts minimal challenge, able to maintain balance while turning head/trunk Static Standing Balance: Good Patient able to maintain balance without handhold support, limited postural sway Dynamic Standing Balance: Fair Patient accepts minimal challenge, able to maintain balance while turning head/trunk Activity Tolerance: Sitting Activity Sitting Activity: DEMO SITTING EOB UNSUPPORTED AND THE COMPLETING B UE EXERCISES Learning/Educational Needs: Discharge Plan, Equipment, Plan of Care, Precautions Goals for Plan of Care: Patient/Caregiver Goals: Improve physical, mental and/or social well-being, Reduce ADL/IADL barriers Goals: Patient will demonstrate progress with (more content not included)... Normal [facility] XR CHEST 2V FRONTAL/LATon XR CHEST 2V FRONTAL/LAT * * *Final Report* * * DATE OF EXAM: Apr 06 2023 2:49PM RHX [id number] - XR CHEST 2V FRONTAL/LAT / PROCEDURE REASON: Post-operative / post-procedure assessment, asymptomatic * * * * Physician Interpretation * * * * EXAMINATION: CHEST RADIOGRAPH (2 VIEW FRONTAL and LATERAL) CLINICAL HISTORY: Post-operative / post-procedure assessment, asymptomatic, left rib fracture MQ: [id number]_6 EXAM DATE/TIME: 04/06/2023 2:49 PM COMPARISON: 04/04/2023 RESULT: Lines, tubes, and devices: There are ECG leads. Lungs and pleura: There is a small left effusion. There are mild atelectatic changes at the left base. The right lung is clear. There are findings compatible with a minimal left apical pneumothorax. Cardiomediastinal silhouette: The cardiac silhouette is normal in size. The aorta is atherosclerotic and tortuous. Bones and soft tissues: There are fractures of the posterolateral aspect of the left eighth and ninth ribs. IMPRESSION: 1. Fractures of the left eighth and ninth ribs posterolaterally. 2. Small left effusion and atelectasis. 3. Minimal left apical pneumothorax. Hog Scraper: TIANA Transcribe Date/Time: Apr 06 2023 2:51P Dictated by : JANET OLIVEIRA MD This examination was interpreted and the report reviewed and electronically signed by: JANET OLIVEIRA MD on Apr 06 2023 2:54PM EST [id number] Normal [facility] Basic metabolic 2000 panelon 04-05-2023 Anion gap [Moles/Vol] 6 mmol/L Normal 5-16 [facility] Comment on above: Order Comment: Speci men Type: BLOOD SPECIMEN Ordering Facility: [facility] Address: [address] [place] [address] Performed By: #### 5 7021-8, 90998-9 #### [facility] CLIA [id number] [address] [place] [address] [place] Calcium [Mass/Vol] 8.7 mg/dL Normal 8.5-10.5 [facility] Comment on above: Order Comment: Speci men Type: BLOOD SPECIMEN Ordering Facility: [facility] Address: [address] [place] [address] Performed By: #### 5 7021-8, 31102-0 #### [facility] CLIA [id number] [address] [place] [address] [place] Chloride [Moles/Vol] 96 mmol/L Low 98-107 [facility] Comment on above: Order Comment: Speci men Type: BLOOD SPECIMEN Ordering Facility: [facility] Address: [address] [place] [address] Performed By: #### 5 7021-8, 27408-3 #### [facility] CLIA [id number] [address] [place] [address] [place] CO2 [Moles/Vol] 26 mmol/L Normal 21-32 [facility] Comment on above: Order Comment: Speci men Type: BLOOD SPECIMEN Ordering Facility: [facility] Address: [address] [address] Performed By: #### 5 7021-8, 39366-2 #### [facility] CLIA [id number] [address] [place] [address] [place] Creatinine [Mass/Vol] 1.27 mg/dL Normal 0.50-1.40 [facility] Comment on above: Order Comment: Shani graham Type: BLOOD SPECIMEN Ordering Facility: [facility] Address: [address] [place] [address] Result Comment: Pam ents receiving either N-Acetylcysteine (NAC) or Metamizole prior to venipuncture, may have falsely depressed results. Performed By: #### 5 7021-8, 26591-5 #### [facility] CLIA [id number] [address] [place] [address] [facility] ESTIMATED GLOMERULAR FILTRATION RATE 55 mL/min/1.73m??? Low >=60 [facility] Comment on above: Order Comment: Shani graham Type: BLOOD SPECIMEN Ordering Facility: [facility] Address: [address] [place] [address] Result Comment: Raquel mated Glomerular Filtration Rate (eGFR) is calculated using the 2020 CKD-EPI creatinine equation. This equation utilizes serum creatinine, sex, and age as parameters. The creatinine assay has traceable calibration to isotope dilution-mass spectrometry. Refer to KDIGO guidelines for clinical interpretation. In patients with unstable renal function, e.g. those with acute kidney injury, the eGFR may not accurately reflect actual GFR. Performed By: #### 5 7021-8, 05581-2 #### [facility] CLIA [id number] [address] [place] [address] [place] Glucose [Mass/Vol] 125 mg/dL High 70-100 [facility] Comment on above: Order Comment: Shani graham Type: BLOOD SPECIMEN Ordering Facility: [facility] Address: [address] [place] [address] Result Comment: The [place] [employer] (ADA) provides guidance for cutoff values for fasting glucose and random glucose. The ADA defines fasting as no caloric intake for at least 8 hours. Fasting plasma glucose results between 100 to 125 mg/dL indicate increased risk for diabetes (prediabetes). Fasting plasma glucose results greater than or equal to 126 mg/dL meet the criteria for diagnosis of diabetes. In the absence of unequivocal hyperglycemia, results should be confirmed by repeat testing. In a patient with classic symptoms of hyperglycemia or hyperglycemic crisis, random plasma glucose results greater than or equal to 200 mg/dL meet the criteria for diagnosis of diabetes. Reference: Standards of Medical Care in Diabetes 2016, [place] [employer]. Diabetes Care. 2016.39(Suppl 1). Results may be falsely elevated after the administration of Sulfapyridine. Results may be falsely depressed after the administration of Sulfasalazine. Performed By: #### 5 7021-8, 11622-6 #### [facility] CLIA [id number] [address] [place] [address] [place] Potassium [Moles/Vol] 4.6 mmol/L Normal 3.5-5.1 [facility] Comment on above: Order Comment: Shani graham Type: BLOOD SPECIMEN Ordering Facility: [facility] Address: [address] [address] Performed By: #### 5 7021-8, 97534-8 #### [facility] CLIA [id number] [address] [place] [address] [place] Sodium [Moles/Vol] 128 mmol/L Low 136-145 [facility] Comment on above: Order Comment: Jenai santos Type: BLOOD SPECIMEN Ordering Facility: [facility] Address: [address] [address] Performed By: #### 5 7021-8, 29939-4 #### [facility] CLIA [id number] [address] [place] [address] [place] Urea nitrogen [Mass/Vol] 31 mg/dL High 7-26 [facility] Comment on above: Order Comment: Shani graahm Type: BLOOD SPECIMEN Ordering Facility: [facility] Address: [address] [address] Performed By: #### 5 7021-8, 57935-2 #### [facility] CLIA [id number] [address] [place] [address] [place] CBC W Auto Differential pane l (Bld)on 04-05-2023 Basophils (Bld) [#/Vol] 0.03 10*3/uL Normal <0.11 [facility] Comment on above: Order Comment: Speci men Type: BLOOD SPECIMEN Ordering Facility: [facility] Address: [address] [address] Performed By: #### 5 7021-8, 76712-0 #### [facility] CLIA [id number] [address] [place] [address] [place] Basophils/100 WBC (Bld) 0.3 % Normal [facility] Comment on above: Order Comment: Speci men Type: BLOOD SPECIMEN Ordering Facility: [facility] Address: [address] [place] [address] Performed By: #### 5 7021-8, 52806-0 #### [facility] CLIA [id number] [address] [place] [address] [place] Differential cell count method Nom (Bld) Auto Normal [facility] Comment on above: Order Comment: Speci men Type: BLOOD SPECIMEN Ordering Facility: [facility] Address: [address] [address] Performed By: #### 5 7021-8, 27674-6 #### [facility] CLIA [id number] [address] [place] [address] [place] Eosinophils (Bld) [#/Vol] 0.31 10*3/uL Normal <0.46 [facility] Comment on above: Order Comment: Speci men Type: BLOOD SPECIMEN Ordering Facility: [facility] Address: [address] [address] Performed By: #### 5 7021-8, 27475-1 #### [facility] CLIA [id number] [address] [place] [address] [place] Eosinophils/100 WBC (Bld) 3.6 % Normal [facility] Comment on above: Order Comment: Speci men Type: BLOOD SPECIMEN Ordering Facility: [facility] Address: [address] [place] [address] Performed By: #### 5 7021-8, 81139-3 #### [facility] CLIA [id number] [address] [place] [address] [place] Erythrocyte distribution width (RBC) [Ratio] 14.3 % Normal 11.5-15.0 [facility] Comment on above: Order Comment: Speci men Type: BLOOD SPECIMEN Ordering Facility: [facility] Address: [address] [place] [address] Performed By: #### 5 7021-8, 74432-1 #### [facility] CLIA [id number] [address] [place] [address] [place] Hematocrit (Bld) [Volume fraction] 35.7 % Low 39.0-51.0 [facility] Comment on above: Order Comment: Speci men Type: BLOOD SPECIMEN Ordering Facility: [facility] Address: [address] [place] [address] Performed By: #### 5 7021-8, 22503-4 #### [facility] CLIA [id number] [address] [place] [address] [place] Hemoglobin (Bld) [Mass/Vol] 12.7 g/dL Low 13.0-17.0 [facility] Comment on above: Order Comment: Speci men Type: BLOOD SPECIMEN Ordering Facility: [facility] Address: [address] [place] [address] Performed By: #### 5 7021-8, 40247-3 #### [facility] CLIA [id number] [address] [place] [address] [place] Immature granulocytes (Bld) [#/Vol] 0.03 10*3/uL Normal <0.10 [facility] Comment on above: Order Comment: Speci men Type: BLOOD SPECIMEN Ordering Facility: [facility] Address: [address] [address] Performed By: #### 5 7021-8, 80824-8 #### [facility] CLIA [id number] [address] [place] [address] [place] Immature granulocytes/100 WBC (Bld) 0.3 % Normal [facility] Comment on above: Order Comment: Speci men Type: BLOOD SPECIMEN Ordering Facility: [facility] Address: [address] [address] Performed By: #### 5 7021-8, 07144-0 #### [facility] CLIA [id number] [address] [place] [address] [place] Lymphocytes (Bld) [#/Vol] 1.49 10*3/uL Normal 1.00-4.00 [facility] Comment on above: Order Comment: Speci men Type: BLOOD SPECIMEN Ordering Facility: [facility] Address: [address] [address] Performed By: #### 5 7021-8, 91905-4 #### [facility] CLIA [id number] [address] [place] [address] [place] Lymphocytes/100 WBC (Bld) 17.2 % Normal [facility] Comment on above: Order Comment: Speci men Type: BLOOD SPECIMEN Ordering Facility: [facility] Address: [address] [address] Performed By: #### 5 7021-8, 00015-9 #### [facility] CLIA [id number] [address] [place] [address] [place] MCH (RBC) [Entitic mass] 31.1 pg Normal 26.0-34.0 [facility] Comment on above: Order Comment: Speci men Type: BLOOD SPECIMEN Ordering Facility: [facility] Address: [address] [address] Performed By: #### 5 7021-8, 38571-2 #### [facility] CLIA [id number] [address] [place] [address] [place] MCHC (RBC) [Mass/Vol] 35.6 g/dL Normal 30.5-36.0 [facility] Comment on above: Order Comment: Speci men Type: BLOOD SPECIMEN Ordering Facility: [facility] Address: [address] [place] [address] Performed By: #### 5 7021-8, 57271-3 #### [facility] CLIA [id number] [address] [place] [address] [place] MCV (RBC) [Entitic vol] 87.3 fL Normal 80.0-100.0 [facility] Comment on above: Order Comment: Speci men Type: BLOOD SPECIMEN Ordering Facility: [facility] Address: [address] [place] [address] Performed By: #### 5 7021-8, 77354-9 #### [facility] CLIA [id number] [address] [place] [address] [place] Monocytes (Bld) [#/Vol] 0.95 10*3/uL High <0.87 [facility] Comment on above: Order Comment: Speci men Type: BLOOD SPECIMEN Ordering Facility: [facility] Address: [address] [place] [address] Performed By: #### 5 7021-8, 50034-3 #### [facility] CLIA [id number] [address] [place] [address] [place] Monocytes/100 WBC (Bld) 11.0 % Normal [facility] Comment on above: Order Comment: Speci men Type: BLOOD SPECIMEN Ordering Facility: [facility] Address: [address] [place] [address] Performed By: #### 5 7021-8, 19651-7 #### [facility] CLIA [id number] [address] [place] [address] [place] Neutrophils (Bld) [#/Vol] 5.84 10*3/uL Normal 1.45-7.50 [facility] Comment on above: Order Comment: Speci men Type: BLOOD SPECIMEN Ordering Facility: [facility] Address: [address] Performed By: #### 5 7021-8, 25039-1 #### [facility] CLIA [id number] [address] [place] [address] [place] Neutrophils/100 WBC (Bld) 67.6 % Normal [facility] Comment on above: Order Comment: Speci men Type: BLOOD SPECIMEN Ordering Facility: [facility] Address: [address] Performed By: #### 5 7021-8, 81138-3 #### [facility] CLIA [id number] [address] [place] [address] [place] Nucleated RBC (Bld) [#/Vol] 10*3/uL Normal <0.01 [facility] Comment on above: Order Comment: Speci men Type: BLOOD SPECIMEN Ordering Facility: [facility] Address: [address] Performed By: #### 5 7021-8, 36576-2 #### [facility] CLIA [id number] [address] [place] [address] [place] Nucleated RBC/100 WBC (Bld) [Ratio] 0.0 /100 WBC Normal [facility] Comment on above: Order Comment: Speci men Type: BLOOD SPECIMEN Ordering Facility: [facility] Address: [address] Performed By: #### 5 7021-8, 83156-3 #### [facility] CLIA [id number] [address] [place] [address] [place] Platelet mean volume (Bld) [Entitic vol] 10.4 fL Normal 9.0-12.7 [facility] Comment on above: Order Comment: Speci men Type: BLOOD SPECIMEN Ordering Facility: [facility] Address: [address] Performed By: #### 5 7021-8, 19985-1 #### [facility] CLIA [id number] [address] [place] [address] [place] [facility] [place] Platelets (Bld) [#/Vol] 200 10*3/uL Normal 150-400 [facility] Comment on above: Order Comment: Speci men Type: BLOOD SPECIMEN Ordering Facility: [facility] Address: [address] [place] [address] Performed By: #### 5 7021-8, 87943-4 #### [facility] CLIA [id number] [address] [place], [place] [id number] [place] RBC (Bld) [#/Vol] 4.09 10*6/uL Low 4.20-6.00 [facility] Comment on above: Order Comment: Speci men Type: BLOOD SPECIMEN Ordering Facility: [facility] Address: [address] [place] [address] Performed By: #### 5 7021-8, 83319-0 #### [facility] CLIA [id number] [address] [place] [address] [place] WBC (Bld) [#/Vol] 8.65 10*3/uL Normal 3.70-11.00 [facility] Comment on above: Order Comment: Speci men Type: BLOOD SPECIMEN Ordering Facility: [facility] Address: [address] [place] [address] Performed By: #### 5 7021-8, 19766-1 #### [facility] CLIA [id number] [address] [place], [place] [id number] [facility] CONSULT PROGon 04-05-2023 CONSULT PROG HNO ID: [id number] Author: Ernie Alexis APRN.BUILDING SPECIALIST Service: Trauma Author Type: Nurse Practitioner Type: Consult Progress Note Filed: 04/05/2023 9:01 AM Note Text: Trauma Progress Note SERVICE DATE: 04/05/2023 SUBJECTIVE: Subjective Mechanism of Injury: Fall in hospital Hospital day # 1 Patient reports feeling well. Denies SOB. States ribs feel better with pain medication. OBJECTIVE: Objective Vitals: Temp (24hrs), Av.6 ?C (97.9 ?F), Min:36.3 ?C (97.3 ?F), Max:37 ?C (98.6 ?F) BP 161/78 Pulse 53 Temp (Src) 97.3 (Temporal) Resp 18 Ht 5' 8 (1.73m) Wt 153 lb 3.2 oz (69.5kg) SpO2 91% BMI 23.30 kg/(m2). O2 Therapy: Room Air O2 Therapy: Room Air IANDO: Date 04/04/23699 - 04/05/23 0659 04/05/23 07 - 04/06/23 0659 Shift 8011-9701 4780-9872 6599-5820 24 Hour Total 8117-4611 4947-2793 8427-0942 24 Hour Total INTAKE PO 550 300 850 PO 550 300 850 Shift Total 550 300 850 OUTPUT Urine 500 500 Void (ml) 500 500 Shift Total 500 500 Weight (kg) 69.3 69.3 69.5 69.5 69.5 69.5 69.5 69.5 MEDICATIONS Current Facility-Administered Medications Medication Dose Route Frequency methocarbamol 500 mg tab(s) (ROBAXIN) 500 mg ORAL BID gabapentin 300 mg cap(s) (NEURONTIN) 300 mg ORAL DAILY lidocaine 4 % 1 Patch (SALONPAS) 1 Patch TRANSDERMAL DAILY acetaminophen 500 mg tab(s) (TYLENOL) 500 mg ORAL q 6 HR oxyCODONE IR 2.5 mg tab(s) (ROXICODONE) 2.5 mg ORAL q 6 H PRN sodium chloride 0.9 % (flush) 2-10 mL (BD POSIFLUSH) 2-10 mL INTRAVENOUS DIRECTED PRN And perflutren lipid microspheres 1.1 mg/mL 1.3 mL injection (DEFINITY) 1.3 mL INTRAVENOUS DIRECTED PRN amLODIPine 5 mg tab(s) (NORVASC) 5 mg ORAL DAILY metoprolol tartrate (short acting) 50 mg tab(s) (LOPRESSOR) 50 mg ORAL BID tamsulosin 0.4 mg cap(s) (FLOMAX) 0.4 mg ORAL DAILY NaCl 0.9% iv flush bag 20 mL INTRAVENOUS PRN clopidogrel 75 mg tab(s) (PLAVIX) 75 mg ORAL/FEEDING TUBE DAILY atorvastatin 40 mg tab(s) (LIPITOR) 40 mg ORAL/FEEDING TUBE AT BEDTIME pantoprazole DR 40 mg tab(s) (PROTONIX) 40 mg ORAL DAILY (6 AM) ondansetron (PF) 4 mg injection (ZOFRAN) 4 mg INTRAVENOUS q 6 H PRN aspirin 81 mg chewable tab(s) 81 mg ORAL/FEEDING TUBE DAILY Labs: No results for input(s): BODSITE , CTYPE , PH , PCO2 , PO2 , BE , HCO3 , CO2CT , O2HB , COHB , MHGB , TEMP , PHTC , PCO2T , PO2T , O2AD in the last 72 hours. Recent Labs 04/04/23 0504 WBC 6.75 HB 12.6* HCT 36.3* PLT 204 PHYSICAL EXAM: Genl: No acute distress. Elderly male. Resp: Lungs clear bilaterally. Chest rise is symmetrical and respirations unlabored. Mildly Tender to the left chest wall. No palpable crepitus. CVS: RRR. Back: Non-tender GI: Abdomen is soft, non-tender, not distended. No peritonitis. MSK: PARHAM. Extremities without cyanosis or edema. Normal ROM x 4.but notably weaker on left arm with this exam. Skin: Warm and dry. Normal color for ethnicity. Neuro: AANDOx3. Strength and sensation intact. GCS15. Psych: Normal mood. Normal affect. ASSESSMENT AND PLAN: Active Hospital Problems Diagnosis Date Noted Acute ischemic stroke (HCC) 04/04/2023 Rib fractures 04/04/2023 Overview Note: Left #8-10 Traumatic pneumothorax 04/04/2023 88 year old male s/p fall while in the hospital with left rib fractures and pneumothorax Patient is doing well. Pulling 1250 with IS. Patient's CXR reviewed yesterday. At this time, no chest tube needed. Recommend CXR prior to discharge with patient on plavix to rule out hemothorax that may develop. Patient working towards placement. Continue with pain control. Trauma to sign off on patient. Re-consult if needed. Imaging performed: 04/03/23 XR left ribs 04/04/2023 Chest x-ray PA and lateral Traumatic Inuries: Left rib fracture #8-10 Small left pneumothorax Operations None Incidental Findings None Care Plan: CXR shows small apical pneumothorax Continue IS Max 1250 Recommend 2 view CXR by primary team prior to discharge to ensure no hemothorax with being on plavix Pain regimen: Multimodal Pathway Current diet order: DIET HEART HEALTHY Bowel regimen: per primary PPX: DVT: Plavix Consulted Services and Recommendations: Trauma Neurology Dispo Planning: PT/OT recommends Acute rehab Follow Up Needs: If any changes in respiratory status, recommend repeat CXR Recommend repeat 2 view CXR prior to discharge Trauma to sign off, please re-consult if any further changes or concerns. Trauma Surgeon: Assessment and plan discussed with Dr. Grijalva SIGNATURE: Ernie Alexis APRN.CNP PATIENT NAME: Sergo Suárez Headings DATE: April 05, 2023 TIME: 8:59 AM Pager: See Long Lines Operator Schedule Normal [facility] CT BRAIN WO IVCONon 04-05-20 CT BRAIN WO IVCON * * *Final Report* * * DATE OF EXAM: Apr 05 2023 11:51AM [facility] 0504 - CT BRAIN WO IVCON / PROCEDURE REASON: Stroke, follow up * * * * Physician Interpretation * * * * EXAMINATION: CT BRAIN WO IVCON CLINICAL HISTORY: Cerebrovascular accident follow-up TECHNIQUE: Serial axial images without IV contrast were obtained from the vertex to the foramen magnum. MQ: CTBWO_3 CT Radiation dose: Integrated Dose-Length Product (DLP) for this visit = 770.97 mGy*cm CT Dose Reduction Employed: Iterative recon COMPARISON: 04/01/2023 RESULT: Post-operative change: There is bilateral lens replacement. Acute change: There is acute infarction involving the right parietal lobe which was described on an MRI examination dated 04/03/2023. There is a second area of acute infarction in the right occipital lobe. Hemorrhage: No acute intracranial hemorrhage or hematoma formation is identified. ECASS hemorrhagic transformation score: Not Applicable Mass Lesion / Mass Effect: There is localized mass effect from the acute infarctions involving the right parietal and occipital lobes. There is no shift across the midline. There are no abnormal extra-axial fluid collections. 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 Parenchyma: There is age-related atrophy. There is remote infarction of the right frontal lobe. Ventricles: The ventricles are prominent compatible with the atrophy. Paranasal sinuses and skull base: The paranasal sinuses and mastoid air cells show no acute abnormalities the skull base and calvarium are intact with no acute abnormalities. Mortising Machine Operator (topogram) images: Noncontributory. 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 No acute hemorrhage. Hog Scraper: PSCCasandra Transcribe Date/Time: Apr 05 2023 12:08P Dictated by : JANET OLIVEIRA MD This examination was interpreted and the report reviewed and electronically signed by: JANET OLIVEIRA MD on Apr 05 2023 12:12PM EST [id number] [facility] THERAPY NTon 04-05-2023 THERAPY NT HNO ID: [id number] Author: SHASTA Keller Service: ? Author Type: Senior Writer Type: Therapy (PT/OT/Speech/Resp) Filed: 04/05/2023 3:45 PM Note Text: Attestation signed by MONTY Brice at 04/05/2023 4:15 PM I reviewed and agree with the documentation corresponding to this therapy visit. SIGNATURE: MONTY Brice DATE: April 05, 2023 TIME: 4:15 PM Occupational Therapy Treatment SERVICE DATE: 04/05/2023 SERVICE TIME: 1330 to 1400 ROOM: [id number] Recommended Discharge Disposition: Acute Rehab Recommended Discharge Disposition Comments: Pt would benefit from ADL/IADL retraining following discharge to optimize occupational performance as needed for everyday living activities. Recommended Discharge Disposition Due to: Patient requires an active, intensive rehabilitation therapy program due to:, Patient requires daily, facility-based rehabilitation from at least one discipline due to:, ADL impairment resulting in caregiver dependence Anticipated Discharge Needs: Physical Assist at Home, Supervision at Home Physical Assist at Home for: Cleaning, Laundry, Safety, Meals, Self Care, Transportation, Shopping Supervision at Home due to: Decreased safety awareness Recommended Discharge Equipment: To Be Determined OT 6 Clicks Score: 16 Precautions/Activity Restrictions: Fall Risk, Other: See Comments Precaution/Activity Restriction Comments: L rib fx's, log roll Current Hospital Course: PT. AGREEABLE TO OT Reason for Hospital Admission: Left arm weakness, stroke workup; acute infarct of Right inferior parietal lobe Relevant Past Medical History: HTN Response to Therapy Interventions: Good Participation in Activities, Pain, Requires Additional Time to Complete Activities Assessment Comments: TOLERATED FAIR DEMO DIFFICULTY FOLLOWING DIRECTION MADISON WITH EXERCISES THAT INVOLVED LEFT UE NEXT SESSION ADDRESS SELF CARE Continued Skilled Needs Due to: Safety Concerns, Functional Impairment Occupational Therapy Problem List: Pain, Safety Deficits, Impaired Self Care, Decreased Activity Tolerance, Decreased Strength, Functional Mobility Impairment Cognition/Communicati on Deficits Responsiveness: Alert, Awake Follows Commands: 1-step Commands Treatment Interventions: Education, Self Care/Home Management, Strengthening, Functional Mobility Training, Balance Training, Pain Management Plan for Next Visit: Bathing Training, Bed Mobility, Chair/Commode Transfer Training, Dressing Training, Fall Prevention, Pain Management, Positioning Training, Sit to Stand Transfers, Sitting Balance, Sitting Tolerance, Standing Tolerance, Standing Balance, Toileting Instruction Home Environment Patient Lives With: Spouse Assistance Available: 24-Hour Entry To Home: Ramp Number Of Stairs To Bed/Bath: 0 Tub/Shower Type: WIS and Tub shower Laundry: on 1st floor but does Equipment Owned: Cane, Commode- Raised Prior Functional Level: Within Functional Limits Prior Functional Level Comments: Patient and love to walk in mohan. He was not using a cane or a walker prior to admit Baseline Cognition: Oriented to situation, Oriented to time, Oriented to place, Oriented to self Occupational Factors Life Roles: Parent, Family Member Identified Strengths: Good Support System, Open to Adaptive Equipment/Strategies, Access to Healthcare Identified Barriers: Medical Acuity/Chronic Condition, Difficulty with ADLs/IADLs CURRENT FUNCTIONAL STATUS: Most recent performance Current Activities of Daily Living Assist Level Additional Information Feeding Independent Grooming Supervision Bathing Upper Body Minimal Assistance Bathing Lower Body Maximal Assistance Dressing Upper Body Minimal Assistance Dressing Lower Body Maximal Assistance Toileting Maximal Assistance Instrumental Activities of Daily Living Assist Level Additional Information Meal/Beverage Prep Cleaning Laundry Medication Management with Strategies Functional Mobility Assist Level Additional Information Rolling Supine to Sit Maximal Assistance, Additional Information LOG ROLLING Sit to Supine Scooting Sit to Stand Minimal Assistance Stand to Sit Minimal Assistance Bed to Chair Toilet/Commode Minimal Assistance, Additional Information Shower Functional Mobility Minimal Assistance, Additional Information None Blank izaguirre indicate activity not attempted Balance: Static Sitting Static Sitting Balance: Normal Patient able to maintain steady balance without handhold support Dynamic Sitting Balance: Fair Patient accepts minimal challenge, able to maintain balance while turning head/trunk Static Standing Balance: Good Patient able to maintain balance without handhold support, limited postural sway (more content not included)... [facility] THERAPY NT HNO ID: [id number] Author: Carlos Manuel Caldwell PTA Service: Physical Therapy Author Type: Payroll Associate Type: Therapy (PT/OT/Speech/Resp) Filed: 04/05/2023 3:02 PM Note Text: Attestation signed by Kiki Vora PT at 04/05/2023 3:12 PM I reviewed and agree with the documentation corresponding to this therapy visit. SIGNATURE: Kiki Vora PT DATE: April 05, 2023 TIME: 3:12 PM Physical Therapy Treatment SERVICE DATE: 04/05/2023 SERVICE TIME: 1059 to 1123 ROOM: [place] [address] Recommended Discharge Disposition: Acute Rehab Recommended Discharge Disposition Due to: Patient requires an active, intensive rehabilitation therapy program due to:, decline in functional status requiring daily skilled care Anticipated Discharge Needs: Physical Assist at Home, Equipment Physical Assist at Home for: Cleaning, Laundry, Meals, Safety, Self Care, Transportation, Shopping PT 6 Clicks Score: 10 Precautions/Activity Restrictions: Fall Risk, Other: See Comments Precaution/Activity Restriction Comments: L rib fx's, log roll Current Hospital Course: Fall while in bathroom with fracture of left 8, 9 and 10th ribs and small left pneumothorax Reason for Hospital Admission: Left arm weakness, stroke workup; acute infarct of Right inferior parietal lobe Relevant Past Medical History: HTN Physical Therapy Problem List: Decreased Strength, Functional Mobility Impairment, Balance Impaired Treatment Interventions: Education, Strengthening, Functional Mobility Training, Balance Training, Neuromuscular Re-education Home Environment Patient Lives With: Spouse Assistance Available: 24-Hour Entry To Home: Ramp Number Of Stairs To Bed/Bath: 0 Tub/Shower Type: WIS and Tub shower Laundry: on 1st floor but does Equipment Owned: Cane, Commode- Raised Prior Functional Level: Within Functional Limits Prior Functional Level Comments: Patient and love to walk in mohan. He was not using a cane or a walker prior to admit Baseline Cognition: Oriented to situation, Oriented to time, Oriented to place, Oriented to self CURRENT FUNCTIONAL STATUS: Most recent performance Current Functional Mobility Assist Level Additional Information Rolling Moderate Assistance Supine to Sit Moderate Assistance Very slow with movement, cues for sequencing, logrol, assist with trunk. Sit to Supine Minimal Assistance Scooting Minimal Assistance Sit to Stand Minimal Assistance Sit to / from stand transfers; slow moving, cues for hand placement, safety. Stand to Sit Minimal Assistance Bed to Chair Toilet/Commode Gait Moderate Assistance Gait Device: Wheeled Walker Gait Distance (feet): 30'x1 AND 2 lateral steps Stairs Curb Step Car Transfer Blank izaguirre indicate activity not attempted General Deviations/Observatio ns: Natalia decreased, Loss of Balance, Narrow Base of Support, Step length decreased, Improper distancing from assistive device Seated: LAQ AND Ankle pumps x10 reps JH-HLM: 7: Walk 25 feet or more Learning/Educational Needs: Discharge Plan, Functional Activities/Mobility, Rehabilitation Techniques and Procedures, Stroke Education Goals for Plan of Care: Patient/Caregiver Goals: Go Home Goals: Patient will demonstrate understanding of importance of mobility during hospital stay and resolve all functional needs identified. Able to Perform HEP with: Independent Transfer Supine to/from Sit with: Independent Transfer Sit to/from Stand with: Independent Ambulate with: Modified Independent Distance: 200' Device: Wheeled Walker, No Device Progress Toward Goals: Progressing as expected Rehab Potential: Good Patient will be discontinued from Physical Therapy when no further skilled needs are identified in this setting. PLAN: PT Frequency: 5 Times Per Week Plan of Care developed with: Patient, Family TREATMENT INTERVENTIONS: Therapy Diagnosis: Reduced mobility-other, Unsteadiness on feet Interventions Provided: Therapeutic Activity (46836) Therapeutic Activity (66403) Treatment Minutes: 24 $ Therapeutic Activity (37967) Billed Units: 2 units Timed Code Treatment (minutes): 24 Skilled Treatment Time (minutes): 24 Please see discipline specific clinical documentation flowsheet for complete details for this therapy evaluation/treatment. SIGNATURE: Carlos Manuel Caldwell PTA PATIENT NAME: Sergo Suárez Headings DATE: April 05, 2023 TIME: 3:00 PM Normal [facility] Urinalysis complete panel (U )on 04-05-2023 Bacteria LM.HPF (Urine sed) [#/Area] None Seen Normal None Seen [facility] Comment on above: Order Comment: Speci men Type: BLOOD SPECIMEN Ordering Facility: [facility] Address: [address] [place] [address] Performed By: #### 5 7021-8, 07448-9 #### [facility] CLIA [id number] [address] [place] [address] [place] Bilirubin Ql (U) Negative Normal Negative [facility] Comment on above: Order Comment: Speci men Type: BLOOD SPECIMEN Ordering Facility: [facility] Address: [address] [place] [address] Performed By: #### 5 7021-8, 86353-3 #### [facility] CLIA [id number] [address] [place] [address] [place] Clarity (Unsp spec) Clear Normal Clear [facility] Comment on above: Order Comment: Speci men Type: BLOOD SPECIMEN Ordering Facility: [facility] Address: [address] [place] [address] Performed By: #### 5 7021-8, 15283-6 #### [facility] CLIA [id number] [address] [place] [address] [place] Color (U) Yellow Normal Yellow [facility] Comment on above: Order Comment: Speci men Type: BLOOD SPECIMEN Ordering Facility: [facility] Address: [address] [place] [address] Performed By: #### 5 7021-8, 05914-8 #### [facility] CLIA [id number] [address] [place] [address] [place] Epithelial cells LM.HPF (Urine sed) [#/Area] None Seen Normal [facility] Comment on above: Order Comment: Speci men Type: BLOOD SPECIMEN Ordering Facility: [facility] Address: [address] [place] [address] Performed By: #### 5 7021-8, 21427-0 #### [facility] CLIA [id number] [address] [place] [address] [place] Glucose Test strip (U) [Mass/Vol] Negative Normal Negative [facility] Comment on above: Order Comment: Speci men Type: BLOOD SPECIMEN Ordering Facility: [facility] Address: [address] [place] [address] Performed By: #### 5 7021-8, 15372-7 #### [facility] CLIA [id number] [address] [place] [address] [place] Hemoglobin Ql (U) 1+ Abnormal Negative [facility] Comment on above: Order Comment: Speci men Type: BLOOD SPECIMEN Ordering Facility: [facility] Address: [address] [place] [address] Performed By: #### 5 7021-8, 53062-0 #### [facility] CLIA [id number] [address] [place] [address] [place] Ketones Ql (U) Negative Normal Negative [facility] Comment on above: Order Comment: Speci men Type: BLOOD SPECIMEN Ordering Facility: [facility] Address: [address] [place] [address] Performed By: #### 5 7021-8, 70801-7 #### [facility] CLIA [id number] [address] [place] [address] [place] Leukocyte esterase Test strip Ql (U) Negative Normal Negative [facility] Comment on above: Order Comment: Speci men Type: BLOOD SPECIMEN Ordering Facility: [facility] Address: [address] [place] [address] Performed By: #### 5 7021-8, 66679-7 #### [facility] CLIA [id number] [address] [place] [address] [place] Nitrite Ql (U) Negative Normal Negative [facility] Comment on above: Order Comment: Speci men Type: BLOOD SPECIMEN Ordering Facility: [facility] Address: [address] [place] [address] Performed By: #### 5 7021-8, 80517-0 #### [facility] CLIA [id number] [address] [place] [address] [place] pH (U) 5.0 [pH] Normal 5.0-8.0 [facility] Comment on above: Order Comment: Speci men Type: BLOOD SPECIMEN Ordering Facility: [facility] Address: [address] [place] [address] Performed By: #### 5 7021-8, 34545-4 #### [facility] CLIA [id number] [address] [place] [address] [place] Protein (U) [Mass/Vol] Negative Normal Negative [facility] Comment on above: Order Comment: Speci men Type: BLOOD SPECIMEN Ordering Facility: [facility] Address: [address] [place] [address] Performed By: #### 5 7021-8, 79501-7 #### [facility] CLIA [id number] [address] [place] [address] [place] RBC LM.HPF (Urine sed) [#/Area] 0-3 /HPF Normal 0-3 /HPF [facility] Comment on above: Order Comment: Speci men Type: BLOOD SPECIMEN Ordering Facility: [facility] Address: [address] [place] [address] Performed By: #### 5 7021-8, 83131-9 #### [facility] CLIA [id number] [address] [place] [address] Specific gravity (U) [Rel density] 1.017 Normal 1.005-1.030 [facility] Comment on above: Order Comment: Speci men Type: BLOOD SPECIMEN Ordering Facility: [facility] Address: [address] [place] [address] Performed By: #### 5 7021-8, 59656-6 #### [facility] CLIA [id number] [address] [place] [address] Urobilinogen Ql (U) Negative Normal Negative [facility] Comment on above: Order Comment: Speci men Type: BLOOD SPECIMEN Ordering Facility: [facility] Address: [address] [place] [address] Performed By: #### 5 7021-8, 79599-3 #### [facility] CLIA [id number] [address] [place] [address] WBC LM.HPF (Urine sed) [#/Area] 0-5 /HPF Normal 0-5 /HPF [facility] Comment on above: Order Comment: Speci men Type: BLOOD SPECIMEN Ordering Facility: [facility] Address: [address] [place] [address] Performed By: #### 5 7021-8, 79689-5 #### [facility] CLIA [id number] [address] [place] [address] ALLIED HEALTHon 04-04-2023 ALLIED HEALTH HNO ID: [id number] Author: Cara Agrawal RT(R) Service: Radiology Author Type: Technologist Type: Allied Health Filed: 04/04/2023 12:10 PM Note Text: Summary: xray Radiology Service Progress Note PATIENT NAME: Sergo Suárez Headings DATE OF SERVICE: April 04, 2023 TIME: 12:09 PM PATIENT IDENTITY VERIFICATION COMPLETED USING TWO (2) IDENTIFIERS: Name and Date of confirmed by patient verbally and Name and Date of confirmed by identification band. FALL SCREENING: Has the patient had 2 falls in the last year or 1 fall with injury or currently using an Ambulatory Assistive Device (Walker, Cane, Wheelchair, Crutches, etc.)? Inpatient: Screened on floor PATIENT GENDER DATA: Male PATIENT RELEVANT IMPLANT DATA REVIEWED: Not Applicable RADIOLOGY DEPARTMENT: General X-ray: Exam(s) Completed: Chest X-Ray PERIPHERAL IV DATA: Not applicable SIGNED BY: RT Jody(R) April 04, 2023 12:09 PM [facility] CBC W Auto Differential pane l (Bld)on 04-04-2023 Basophils (Bld) [#/Vol] 10*3/uL Normal <0.11 [facility] Comment on above: Order Comment: Shani graham Type: BLOOD SPECIMEN Ordering Facility: [facility] Address: [address] [place] [address] Performed By: #### 5 7021-8, 84792-1 #### [facility] CLIA [id number] [address] [place] [address] [place] Basophils/100 WBC (Bld) 0.1 % Normal [facility] Comment on above: Order Comment: Shani graham Type: BLOOD SPECIMEN Ordering Facility: [facility] Address: [address] [place] [address] Performed By: #### 5 7021-8, 43776-0 #### [facility] CLIA [id number] [address] [place], [place] [id number] [place] Differential cell count method Nom (Bld) Auto Normal [facility] Comment on above: Order Comment: Speci men Type: BLOOD SPECIMEN Ordering Facility: [facility] Address: [address] [address] Performed By: #### 5 7021-8, 30619-0 #### [facility] CLIA [id number] [address] [place] [address] [place] Eosinophils (Bld) [#/Vol] 0.30 10*3/uL Normal <0.46 [facility] Comment on above: Order Comment: Speci men Type: BLOOD SPECIMEN Ordering Facility: [facility] Address: [address] [address] Performed By: #### 5 7021-8, 90090-3 #### [facility] CLIA [id number] [address] [place] [address] [place] Eosinophils/100 WBC (Bld) 4.4 % Normal [facility] Comment on above: Order Comment: Speci men Type: BLOOD SPECIMEN Ordering Facility: [facility] Address: [address] [address] Performed By: #### 5 7021-8, 97361-6 #### [facility] CLIA [id number] [address] [place] [address] [place] Erythrocyte distribution width (RBC) [Ratio] 14.3 % Normal 11.5-15.0 [facility] Comment on above: Order Comment: Speci men Type: BLOOD SPECIMEN Ordering Facility: [facility] Address: [address] [address] Performed By: #### 5 7021-8, 43079-7 #### [facility] CLIA [id number] [address] [place] [address] [place] Hematocrit (Bld) [Volume fraction] 36.3 % Low 39.0-51.0 [facility] Comment on above: Order Comment: Speci men Type: BLOOD SPECIMEN Ordering Facility: [facility] Address: [address] [address] Performed By: #### 5 7021-8, 25137-0 #### [facility] CLIA [id number] [address] [place] [address] [place] Hemoglobin (Bld) [Mass/Vol] 12.6 g/dL Low 13.0-17.0 [facility] Comment on above: Order Comment: Speci men Type: BLOOD SPECIMEN Ordering Facility: [facility] Address: [address] [place] [address] Performed By: #### 5 7021-8, 05349-0 #### [facility] CLIA [id number] [address] [place] [address] [place] Immature granulocytes (Bld) [#/Vol] 10*3/uL Normal <0.10 [facility] Comment on above: Order Comment: Speci men Type: BLOOD SPECIMEN Ordering Facility: [facility] Address: [address] [place] [address] Performed By: #### 5 7021-8, 59196-1 #### [facility] CLIA [id number] [address] [place] [address] [place] Immature granulocytes/100 WBC (Bld) 0.1 % Normal [facility] Comment on above: Order Comment: Speci men Type: BLOOD SPECIMEN Ordering Facility: [facility] Address: [address] [address] Performed By: #### 5 7021-8, 04406-0 #### [facility] CLIA [id number] [address] [place] [address] [place] Lymphocytes (Bld) [#/Vol] 1.52 10*3/uL Normal 1.00-4.00 [facility] Comment on above: Order Comment: Speci men Type: BLOOD SPECIMEN Ordering Facility: [facility] Address: [address] [address] Performed By: #### 5 7021-8, 26868-3 #### [facility] CLIA [id number] [address] [place] [address] Lymphocytes/100 WBC (Bld) 22.5 % Normal [facility] Comment on above: Order Comment: Speci men Type: BLOOD SPECIMEN Ordering Facility: [facility] Address: [address] [address] Performed By: #### 5 7021-8, 46472-8 #### [facility] CLIA [id number] [address] [place] [address] [place] MCH (RBC) [Entitic mass] 30.1 pg Normal 26.0-34.0 [facility] Comment on above: Order Comment: Speci men Type: BLOOD SPECIMEN Ordering Facility: [facility] Address: [address] [address] Performed By: #### 5 7021-8, 89697-9 #### [facility] CLIA [id number] [address] [place] [address] [place] MCHC (RBC) [Mass/Vol] 34.7 g/dL Normal 30.5-36.0 [facility] Comment on above: Order Comment: Speci men Type: BLOOD SPECIMEN Ordering Facility: [facility] Address: [address] [address] Performed By: #### 5 7021-8, 89781-8 #### [facility] CLIA [id number] [address] [place] [address] [place] MCV (RBC) [Entitic vol] 86.8 fL Normal 80.0-100.0 [facility] Comment on above: Order Comment: Speci men Type: BLOOD SPECIMEN Ordering Facility: [facility] Address: [address] [address] Performed By: #### 5 7021-8, 78905-7 #### [facility] CLIA [id number] [address] [place] [address] [place] Monocytes (Bld) [#/Vol] 1.07 10*3/uL High <0.87 [facility] Comment on above: Order Comment: Speci men Type: BLOOD SPECIMEN Ordering Facility: [facility] Address: [address] [place] [address] Performed By: #### 5 7021-8, 86408-1 #### [facility] CLIA [id number] [address] [place] [address] [place] Monocytes/100 WBC (Bld) 15.9 % Normal [facility] Comment on above: Order Comment: Speci men Type: BLOOD SPECIMEN Ordering Facility: [facility] Address: [address] [place] [address] Performed By: #### 5 7021-8, 41919-8 #### [facility] CLIA [id number] [address] [place] [address] [place] Neutrophils (Bld) [#/Vol] 3.84 10*3/uL Normal 1.45-7.50 [facility] Comment on above: Order Comment: Speci men Type: BLOOD SPECIMEN Ordering Facility: [facility] Address: [address] [place] [address] Performed By: #### 5 7021-8, 46909-9 #### [facility] CLIA [id number] [address] [place] [address] [place] Neutrophils/100 WBC (Bld) 57.0 % Normal [facility] Comment on above: Order Comment: Speci men Type: BLOOD SPECIMEN Ordering Facility: [facility] Address: [address] [place] [address] Performed By: #### 5 7021-8, 35945-0 #### [facility] CLIA [id number] [address] [place] [address] [place] Nucleated RBC (Bld) [#/Vol] 10*3/uL Normal <0.01 [facility] Comment on above: Order Comment: Speci men Type: BLOOD SPECIMEN Ordering Facility: [facility] Address: [address] [address] Performed By: #### 5 7021-8, 93268-2 #### [facility] CLIA [id number] [address] [place] [address] [place] Nucleated RBC/100 WBC (Bld) [Ratio] 0.0 /100 WBC Normal [facility] Comment on above: Order Comment: Speci men Type: BLOOD SPECIMEN Ordering Facility: [facility] Address: [address] Performed By: #### 5 7021-8, 17701-2 #### [facility] CLIA [id number] [address] [place] [address] [place] Platelet mean volume (Bld) [Entitic vol] 10.4 fL Normal 9.0-12.7 [facility] Comment on above: Order Comment: Speci men Type: BLOOD SPECIMEN Ordering Facility: [facility] Address: [address] Performed By: #### 5 7021-8, 85758-9 #### [facility] CLIA [id number] [address] [place] [address] [place] Platelets (Bld) [#/Vol] 204 10*3/uL Normal 150-400 [facility] Comment on above: Order Comment: Speci men Type: BLOOD SPECIMEN Ordering Facility: [facility] Address: [address] Performed By: #### 5 7021-8, 15970-0 #### [facility] CLIA [id number] [address] [place] [address] [place] RBC (Bld) [#/Vol] 4.18 10*6/uL Low 4.20-6.00 [facility] Comment on above: Order Comment: Speci men Type: BLOOD SPECIMEN Ordering Facility: [facility] Address: [address] Performed By: #### 5 7021-8, 43265-0 #### [facility] CLIA [id number] [address] [id number] [place] WBC (Bld) [#/Vol] 6.75 10*3/uL Normal 3.70-11.00 [facility] Comment on above: Order Comment: Speci men Type: BLOOD SPECIMEN Ordering Facility: [facility] Address: [place] [address] Performed By: #### 5 7021-8, 62453-0 #### [facility] CLIA [id number] [address] [id number] [facility] CONSULTon 04-04-2023 CONSULT HNO ID: [id number] Author: Ernie Alexis APRN.CNP Service: Trauma Author Type: Nurse Practitioner Type: Consults Filed: 04/04/2023 11:16 AM Note Text: Attestation signed by Samuel Grijalva MD at 04/04/2023 4:46 PM Agree with above. Samuel Grijalva MD Trauma Consult Reason for consultation: Fall; rib fractures and pneumothorax Consulting provider: Dr. Chávez SUBJECTIVE: Subjective HPI/Chief complaint: 88 year old male who apparently had a unwitnessed fall while in the hospital on Monday. Reports that he passed out and somewhat fell backwards. Had assistance immediately as it was heard and caregivers were seen the patient next-door. Patient is complaining of some left-sided chest wall pain. Had x-ray of left ribs yesterday which was 1 day later showing left-sided rib fractures and small pneumothorax. Patient has not been hypoxic. Reports pain mostly with movement and sometimes with a large deep breath. Has had no oxygen requirement. Trauma consulted for the rib fractures and small pneumothorax. ALLERGIES Allergen Reactions Gluten Diarrhea Upset stomach Gas build up Immunization History Administered Date(s) Administered COVID-19 original vaccine, full dose, monovalent (MODERNA) 11/19/2020 12/17/2020 TD Adult 10/09/2006 diphtheria tetanus (DT) vaccine, pediatric 12/21/1996 influenza (HD-IIV) vaccine, age 65+ yr, high dose, PF (FLUZONE HIGH-DOSE) 06/16/2015 08/17/2016 06/11/2018 06/14/2019 influenza (HD-IIV4) vaccine, age 65+ yr, high dose, quadrivalent, PF (FLUZONE HIGH-DOSE) 07/21/2020 06/09/2021 influenza (IIV3) vaccine, age 3+ yr, trivalent (AFLURIA, FLULAVAL, FLUVIRIN, FLUZONE) 08/26/2014 influenza vaccine, unspecified formulation 07/01/2010 06/25/2012 09/02/2013 pneumococcal (PCV13) vaccine, 13 valent (PREVNAR 13) 08/26/2014 pneumococcal (PPV23) vaccine, 23 valent (PNEUMOVAX 23) 03/21/2005 02/08/2017 tetanus diphtheria (Td) vaccine, age 7+ yr, 5 Lf tetanus, PF (TENIVAC) 04/04/2016 PAST MEDICAL HISTORY Diagnosis Date Abdominal aortic aneurysm without rupture (HCC) 03/11/[address] Singh Benign prostatic hyperplasia with urinary hesitancy 12/13/2019 Had 10h of urinary retention, Voided x2 since chang removed but small volume Begun on flomax 12/11 Obtain postvoid residual to ensure no overflow incontinence Bilateral carotid artery stenosis 08/20/2018 Celiac disease 08/31/2010 Disorders of bursae and tendons in shoulder region, unspecified 09/08/2013 Diverticulosis of large intestine Elevated hemoglobin A1c 02/10/2021 Hypertension, essential 02/02/2018 Internal hemorrhoids without mention of complication 05/05/2008 Mixed hyperlipidemia 11/30/2010 Peripheral vascular disease (HCC) 02/25/2016 Stage 3a chronic kidney disease (HCC) 02/10/2021 Synovial cyst of right popliteal space 02/14/2022 Vitamin D deficiency 04/06/2009 PAST SURGICAL HISTORY Procedure Laterality Date ABD AORTA ANEURYSM REPAIR 11/2019 COLONOSCOPY FLX DX W/COLLJ SPEC WHEN PFRMD 03/23/2004 Colonoscopy COLONOSCOPY FLX DX W/COLLJ SPEC WHEN PFRMD 05/05/2008 Colonoscopy, repeat 10 yrs PAST SURGICAL HISTORY OF 04/14/2004 excision of lesion neck PAST SURGICAL HISTORY OF 02/21/1992 lesion removed from rectum Social History Tobacco Use Smoking status: Never Smokeless tobacco: Never Substance Use Topics Alcohol use: No Drug use: Never Review of Systems Review of Systems Respiratory: Negative for cough, shortness of breath and wheezing. Cardiovascular: Positive for chest pain. All other systems reviewed and are negative. OBJECTIVE: Objective VITALS: BP 125/85 Pulse 78 Temp (Src) 98.6 (Temporal) Resp 16 Ht 5' 8 (1.73m) Wt 152 lb 12.8 oz (69.3kg) SpO2 93% BMI 23.24 kg/(m2). O2 Therapy: Room Air Temp (24hrs), Av.6 ?C (97.9 ?F), Min:36.2 ?C (97.2 ?F), Max:37 ?C (98.6 ?F) O2 Therapy: Room Air Genl: No acute distress. Resting comfortably. Family at bedside. Head/Face: Normocephalic. Atraumatic. Neck: No midline tenderness. Supple Resp: Lungs clear bilaterally. Chest rise is symmetrical and respirations unlabored. Tender to the left chest wall. No palpable crepitus. CVS: RRR. Strong pulses and good cap refill GI: Abdomen is soft, non-tender, not distended. Back: No midline tenderness on palpation. No evidence of cutaneous trauma. MSK: Moving all extremities but notably weaker on left arm with this exam. Skin: Warm and dry. Normal color for ethnicity. Neuro: AANDOx3. Strength and sensation intact. GCS15. Psych: Normal mood. Normal affect. RADIOLOGICAL/OTHER TEST DATA: XR RIBS/CHEST 3V AP RIB/OBLS/CXR LEFT Final Result IMPRESSION: Fractures of the left eighth, ninth and 10th ribs. There are findings compatible with a small left (more content not included)... Normal [facility] THERAPY NTon 04-04-2023 THERAPY NT HNO ID: [id number] Author: Peng Kaminski OTR/L Service: Occupational Therapy Author Type: Occupational Therapist Type: Therapy (PT/OT/Speech/Resp) Filed: 04/04/2023 11:50 AM Note Text: Occupational Therapy Evaluation SERVICE DATE: 04/04/2023 SERVICE TIME: 1100 to 1131 ROOM: [address] [address] Recommended Discharge Disposition: Acute Rehab Recommended Discharge Disposition Comments: Pt would benefit from ADL/IADL retraining following discharge to optimize occupational performance as needed for everyday living activities. Recommended Discharge Disposition Due to: Patient requires an active, intensive rehabilitation therapy program due to:, Patient requires daily, facility-based rehabilitation from at least one discipline due to:, ADL impairment resulting in caregiver dependence Anticipated Discharge Needs: Physical Assist at Home, Equipment Physical Assist at Home for: Cleaning, Laundry, Meals, Safety, Self Care, Transportation, Shopping Recommended Discharge Equipment: To Be Determined OT 6 Clicks Score: 16 Precautions/Activity Restrictions: Fall Risk, Other: See Comments Precaution/Activity Restriction Comments: L rib fx's, log roll Current Hospital Course: Fall while in bathroom with fracture of left 8, 9 and 10th ribs and small left pneumothorax Reason for Hospital Admission: Left arm weakness, stroke workup; 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 Provided education on precautions and movement restrictions for increased safety during functional activities. Required hands on assist and verbal direction for task completion. Slight deficits noted during left handed dexterity testing. Continued Skilled Needs Due to: Safety Concerns, Functional Impairment Occupational Therapy Problem List: Pain, Safety Deficits, Impaired Self Care, Decreased Strength, Balance Impaired, Functional Mobility Impairment Cognition/Communicati on Deficits Responsiveness: Alert, Awake Follows Commands: 3-step Commands Treatment Interventions: Education, Self Care/Home Management, Strengthening, Functional Mobility Training, Balance Training, Pain Management Plan for Next Visit: Bathing Training, Bed Mobility, Chair/Commode Transfer Training, Dressing Training, Fall Prevention, Pain Management, Positioning Training, Sit to Stand Transfers, Sitting Balance, Sitting Tolerance, Standing Tolerance, Standing Balance, Toileting Instruction Home Environment Patient Lives With: Spouse Assistance Available: 24-Hour Entry To Home: Ramp Number Of Stairs To Bed/Bath: 0 Tub/Shower Type: WIS and Tub shower Laundry: on 1st floor but does Equipment Owned: Cane, Commode- Raised Prior Functional Level: Within Functional Limits Prior Functional Level Comments: Patient and love to walk in mohan. He was not using a cane or a walker prior to admit Baseline Cognition: Oriented to situation, Oriented to time, Oriented to place, Oriented to self Occupational Factors Life Roles: Parent, Family Member Identified Strengths: Good Support System, Open to Adaptive Equipment/Strategies, Access to Healthcare Identified Barriers: Medical Acuity/Chronic Condition, Difficulty with ADLs/IADLs Patient Report: Pt pleasant and agreeable to session. CURRENT FUNCTIONAL STATUS: Most recent performance Current Activities of Daily Living Assist Level Additional Information Feeding Independent Grooming Supervision Bathing Upper Body Minimal Assistance Bathing Lower Body Maximal Assistance Dressing Upper Body Minimal Assistance Dressing Lower Body Maximal Assistance Toileting Maximal Assistance Instrumental Activities of Daily Living Assist Level Additional Information Meal/Beverage Prep Cleaning Laundry Medication Management with Strategies Functional Mobility Assist Level Additional Information Rolling Supine to Sit Maximal Assistance, Additional Information verbal cues for log roll technique, assisted with trunk and BLEs to sit EOB Sit to Supine Scooting Sit to Stand Minimal Assistance, Additional Information steadyinf assist provided coming into standing Stand to Sit Minimal Assistance, Additional Information guided assist for controlled landing Bed to Chair Toilet/Commode Minimal Assistance, Additional Information utilized grab bar for increased ease, steadying assist provided Shower Functional Mobility Minimal Assistance, Additional Information None Pt walked to/from bathroom and down to nurses station and returned to room. No LOB limited postural sway noted. Blank izaguirre indicate activity not attempted Range of Motion: WFL (noted through functional activity) Strength: WFL (noted through functional activity, not formally assessed 2/2 pr (more content not included)... [facility] THERAPY NT HNO ID: [id number] Author: Milagro Nevarez, PT Service: Physical Therapy Author Type: Physical Therapist Type: Therapy (PT/OT/Speech/Resp) Filed: 04/04/2023 10:11 AM Note Text: Physical Therapy Evaluation SERVICE DATE: 04/04/2023 SERVICE TIME: 904 ROOM: [id number] Recommended Discharge Disposition: Acute Rehab Recommended Discharge Disposition Due to: Patient requires an active, intensive rehabilitation therapy program due to:, decline in functional status requiring daily skilled care Anticipated Discharge Needs: Supervision at Home PT 6 Clicks Score: 10 Precautions/Activity Restrictions: Fall Risk, Other: See Comments (Left rib fractures) Current Hospital Course: Fall while in bathroom with fracture of left 8, 9 and 10th ribs and small left pneumothorax Reason for Hospital Admission: Left arm weakness, stroke workup; 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 He doesn't know how to move to keep the rib pain down. He demonstrates some impulsive behavior and some left neglect. He will benefit from continued therapy in [facility] for the stroke and the rib fractures that are limiting his current mobility. Continued Skilled Needs Due to: Functional Mobility/Skill Impairments Physical Therapy Problem List: Decreased Strength, Functional Mobility Impairment, Balance Impaired Treatment Interventions: Education, Strengthening, Functional Mobility Training, Balance Training, Neuromuscular Re-education Plan for Next Visit: Bed Mobility, Fall Prevention, Gait Training, Pre-gait Activities, Standing Balance, Standing Tolerance, Walker Training Home Environment Patient Lives With: Spouse Assistance Available: 24-Hour Entry To Home: Ramp Number Of Stairs To Bed/Bath: 0 Laundry: on 1st floor but does Equipment Owned: Cane, Elevated Toilet Seat Prior Functional Level: Within Functional Limits Prior Functional Level Comments: Patient and love to walk in mohan. He was not using a cane or a walker prior to admit Patient Report: I passed out while in bathroom a few days ago CURRENT FUNCTIONAL STATUS: Most recent performance Current Functional Mobility Assist Level Additional Information Rolling Moderate Assistance (Extra time needed) Supine to Sit Moderate Assistance (extra time due to painful left side) Sit to Supine Minimal Assistance (cues needed) Scooting Minimal Assistance Sit to Stand Minimal Assistance Stand to Sit Minimal Assistance Bed to Chair Toilet/Commode Gait Moderate Assistance Gait Device: None, Wheeled Walker Gait Distance (feet): 5' no device, 60' x 2 with ww Stairs Curb Step Car Transfer Blank izaguirre indicate activity not attempted General Deviations/Observatio ns: Natalia decreased, Loss of Balance, Narrow Base of Support (listing to the left, running into objects on left side, tipping walker twice, removing left hand from walker a few times, impulsive) Range of Motion: WFL Strength: Strength Limitation Comments Strength Limitation Comments: Grossly 3+/5 on left and 4/5 on right side -HLM: 7: Walk 25 feet or more Learning/Educational Needs: Discharge Plan, Functional Activities/Mobility, Rehabilitation Techniques and Procedures, Stroke Education Goals for Plan of Care: Patient/Caregiver Goals: Go Home Goals: Patient will demonstrate understanding of importance of mobility during hospital stay and resolve all functional needs identified. Able to Perform HEP with: Independent Transfer Supine to/from Sit with: Independent Transfer Sit to/from Stand with: Independent Ambulate with: Modified Independent Distance: 200' Device: Wheeled Walker, No Device Progress Toward Goals: Progressing as expected Rehab Potential: Good Patient will be discontinued from Physical Therapy when no further skilled needs are identified in this setting. PLAN: PT Frequency: 5 Times Per Week Plan of Care developed with: Patient, Family TREATMENT INTERVENTIONS: Therapy Diagnosis: Reduced mobility-other, Unsteadiness on feet Interventions Provided: Evaluation, Gait Training (53937), Therapeutic Activity (96347) $ Evaluation-Moderate (36236) Billed Units: 1 unit Therapeutic Activity (38680) Treatment Minutes: 15 $ Therapeutic Activity (96504) Billed Units: 1 unit Gait Training (42523) Treatment Minutes: 10 $ Gait Training (97317) Billed Units: 1 unit Training AND Education Provided in: Bed Mobility, Equipment, Home Safety, Transfers, Role of Physical Therapy, Pre-gait Activities, Precautions/Restricti ons, Positioning The Following Therapeutic Skills Were Used: Activity Dosing, Cues for Sequencin (more content not included)... Normal [facility] XR CHEST 2V FRONTAL/LATon XR CHEST 2V FRONTAL/LAT * * *Final Report* * * DATE OF EXAM: Apr 04 2023 12:11PM RHX [id number] - XR CHEST 2V FRONTAL/LAT / PROCEDURE REASON: Chest trauma, blunt * * * * Physician Interpretation * * * * EXAMINATION: CHEST RADIOGRAPH (2 VIEW FRONTAL and LATERAL) CLINICAL HISTORY: Chest trauma, blunt, Pneumothorax MQ: [id number]_6 EXAM DATE/TIME: 04/04/2023 12:11 PM COMPARISON: Rib series 04/03/2023, prior chest 02/04/2019 RESULT: Lines, tubes, and devices: None. Lungs and pleura: There are atelectatic changes at the left base. There is a limited depth of inspiration. No effusions are seen. There is a small faint lucency at the left apex compatible with a pneumothorax. Cardiomediastinal silhouette: The cardiac silhouette is at the upper limits of normal in size. The aorta is tortuous. Bones and soft tissues: There is a fracture at the posterolateral aspect of the left eighth rib. There is a fracture at the posterolateral aspect of the left ninth rib. The left 10th rib is not fully visualized. IMPRESSION: 1. Fractures at the posterolateral aspect of the left eighth and ninth ribs. 2. Atelectatic changes at the left base. 3. Findings compatible with small left apical pneumothorax. Hog Scraper: TIANA Transcribe Date/Time: Apr 04 2023 1:10P Dictated by : JANET OLIVEIRA MD This examination was interpreted and the report reviewed and electronically signed by: JANET OLIVEIRA MD on Apr 04 2023 1:13PM EST [id number] N [facility] CONSULTon 04-03-2023 CONSULT HNO ID: [id number] Author: Anson Prater DO Service: Neurology General Author Type: Physician Type: Consults Filed: 04/03/2023 2:31 PM Note Text: INITIAL CONSULT - GENERAL NEUROLOGY SERVICE DATE: 04/03/2023 Current Attending Provider: Walter Chávez MD Reason for Evaluation: Left arm incoordination HPI: This is Mr. Sergo Jacobs a 88 year old male who presented to the [facility] left arm incoordination. He states he was walking on the [place] his left arm felt uncoordinated is able to walk back to his car they drove home. He laid down to take a nap however his got online and was concerned this represented symptoms of stroke. Denies any change in vision speech or gait instability. He states he is nearly resolved at this point no history of prior. While he was in the hospital he stood up to go the bathroom was brushing his teeth and he lost consciousness. He does have history of loss of consciousness in the past. Current Facility-Administered Medications Medication Dose Route Frequency amLODIPine 5 mg tab(s) (NORVASC) 5 mg ORAL DAILY metoprolol tartrate (short acting) 50 mg tab(s) (LOPRESSOR) 50 mg ORAL BID tamsulosin 0.4 mg cap(s) (FLOMAX) 0.4 mg ORAL DAILY NaCl 0.9% iv flush bag 20 mL INTRAVENOUS PRN clopidogrel 75 mg tab(s) (PLAVIX) 75 mg ORAL/FEEDING TUBE DAILY atorvastatin 40 mg tab(s) (LIPITOR) 40 mg ORAL/FEEDING TUBE AT BEDTIME pantoprazole DR 40 mg tab(s) (PROTONIX) 40 mg ORAL DAILY (6 AM) ondansetron (PF) 4 mg injection (ZOFRAN) 4 mg INTRAVENOUS q 6 H PRN aspirin 81 mg chewable tab(s) 81 mg ORAL/FEEDING TUBE DAILY acetaminophen 650 mg tab(s) (TYLENOL) 650 mg ORAL q 4 H PRN sodium chloride 0.9 % (flush) 2-10 mL (BD POSIFLUSH) 2-10 mL INTRAVENOUS DIRECTED PRN And perflutren lipid microspheres 1.1 mg/mL 1.3 mL injection (DEFINITY) 1.3 mL INTRAVENOUS DIRECTED PRN PAST MEDICAL HISTORY Diagnosis Date Abdominal aortic aneurysm without rupture (HCC) 03/11/[address] Singh Benign prostatic hyperplasia with urinary hesitancy 12/13/2019 Had 10h of urinary retention, Voided x2 since chang removed but small volume Begun on flomax 12/11 Obtain postvoid residual to ensure no overflow incontinence Bilateral carotid artery stenosis 08/20/2018 Celiac disease 08/31/2010 Disorders of bursae and tendons in shoulder region, unspecified 09/08/2013 Diverticulosis of large intestine Elevated hemoglobin A1c 02/10/2021 Hypertension, essential 02/02/2018 Internal hemorrhoids without mention of complication 05/05/2008 Mixed hyperlipidemia 11/30/2010 Peripheral vascular disease (HCC) 02/25/2016 Stage 3a chronic kidney disease (HCC) 02/10/2021 Synovial cyst of right popliteal space 02/14/2022 Vitamin D deficiency 04/06/2009 PAST SURGICAL HISTORY Procedure Laterality Date ABD AORTA ANEURYSM REPAIR 11/2019 COLONOSCOPY FLX DX W/COLLJ SPEC WHEN PFRMD 03/23/2004 Colonoscopy COLONOSCOPY FLX DX W/COLLJ SPEC WHEN PFRMD 05/05/2008 Colonoscopy, repeat 10 yrs PAST SURGICAL HISTORY OF 04/14/2004 excision of lesion neck PAST SURGICAL HISTORY OF 02/21/1992 lesion removed from rectum Social History Tobacco Use Smoking status: Never Smokeless tobacco: Never Substance Use Topics Alcohol use: No Drug use: Never FAMILY HISTORY Problem Relation Age of Onset Stroke Father other (lupus) Sister Diabetes Brother Diabetes Brother ALLERGIES Allergen Reactions Gluten Diarrhea Upset stomach Gas build up Prior to Admission Medications Prescriptions Last Dose Informant Patient Reported? Taking? Aspirin 81 mg tab No Yes Sig: Take 1 tablet by mouth once daily. Glutamine (L-GLUTAMINE) 500 mg cap Yes No Sig: Take by mouth once daily. Herbal Drugs cap Yes No Sig: Take 1 capsule by mouth once daily. [employer] OTC PRODUCT Yes No Sig: Liver md 2 caps daily OTC PRODUCT Yes No Sig: Arterial protect one cap dialy SprectraZyme Mcqueen 9x ES No No Sig: Take 1 tablet by mouth w MEALS. TESTOSTERONE, BULK, MISC Yes Yes Sig: Cream ZINC ORAL Yes Yes Sig: Take 50 mg by mouth once daily. amLODIPine (NORVASC) 5 mg tablet No Yes Sig: Take 1 tablet by mouth once daily. budesonide, enteric coated (ENTOCORT EC) 3 mg 24 hr capsule Yes No Sig: Take 6 mg by mouth as needed. cholecalciferol (VITAMIN D3) 5,000 unit tab Yes Yes Sig: Take 1 tablet by mouth once daily. cholestyramine (QUESTRAN) 4 gram packet Yes No Sig: prn d-efiognfwn-dphquyje root extract-aloe leaf extract (GLUTAGENICS) [id number] powder No Yes Sig: Mix one teaspoon (4.33 g) with water three times daily (1 teaspoon = 3.5 grams L-glut) metoprolol tartrate, short acting, (LOPRESSOR) 50 mg tablet No Yes Sig: Take 1 tablet by mouth twice daily. milk thistle seed extract 200 mg cap Yes Yes Sig: Take 1 capsule by mouth once daily. tamsulosin (FLOMAX) 0.4 mg No Yes Sig: Take 1 capsule by mouth once daily. Facility-Administered Medications Last Administration Doses (more content not included)... [facility] CONSULT HNO ID: [id number] Author: Koki Knapp APRN.BUILDING SPECIALIST Service: Neurology Stroke Author Type: Nurse Practitioner Type: Consults Filed: 04/03/2023 11:01 AM Note Text: Payroll Associate Note SERVICE DATE: 04/03/2023 SERVICE TIME: 8:51 AM PCP: Kezia Dubose MD REASON FOR STROKE EVALUATION: Subjective HPI: Pt is a 88y/o male PMH HTN, HLD, CKD, BPH, AAA repair who presents to ER with left arm weakness. Pt was on a walk with his when left arm suddenly became weak and had trouble with dexterity. Pt able to walk 1 mile back to the car without difficulty went home and back home and took a nap. When he woke up symptoms continued so pt came to the ER .CT showed no acute changes. CTA no sig stenosis or LVO. Pt was admitted for further workup. Yesterday while he was in the restroom pt reports that he had a stiff neck and passed out +LOC. Denies any weakness, numbness, tingling, or lightheaded at that time. He hit his head, ribs a elbows during the fall. Currently pt c/o rib pain from fall, and continue left arm/hand weakness. who is at bedside state pt seems to be a little confused compared to baseline. PAST MEDICAL HISTORY Diagnosis Date - Abdominal aortic aneurysm without rupture (HCC) 03/11/[address] Singh - Benign prostatic hyperplasia with urinary hesitancy 12/13/2019 Had 10h of urinary retention, Voided x2 since chang removed but small volume Begun on flomax 12/11 Obtain postvoid residual to ensure no overflow incontinence - Bilateral carotid artery stenosis 08/20/2018 - Celiac disease 08/31/2010 - Disorders of bursae and tendons in shoulder region, unspecified 09/08/2013 - Diverticulosis of large intestine - Elevated hemoglobin A1c 02/10/2021 - Hypertension, essential 02/02/2018 - Internal hemorrhoids without mention of complication 05/05/2008 - Mixed hyperlipidemia 11/30/2010 - Peripheral vascular disease (HCC) 02/25/2016 - Stage 3a chronic kidney disease (HCC) 02/10/2021 - Synovial cyst of right popliteal space 02/14/2022 - Vitamin D deficiency 04/06/2009 PAST SURGICAL HISTORY Procedure Laterality Date - ABD AORTA ANEURYSM REPAIR 11/2019 - COLONOSCOPY FLX DX W/COLLJ SPEC WHEN PFRMD 03/23/2004 Colonoscopy - COLONOSCOPY FLX DX W/COLLJ SPEC WHEN PFRMD 05/05/2008 Colonoscopy, repeat 10 yrs - PAST SURGICAL HISTORY OF 04/14/2004 excision of lesion neck - PAST SURGICAL HISTORY OF 02/21/1992 lesion removed from rectum SOCIAL HISTORY Social History Tobacco Use - Smoking status: Never - Smokeless tobacco: Never Substance Use Topics - Alcohol use: No - Drug use: Never FAMILY HISTORY Problem Relation Age of Onset - Stroke Father - other (lupus) Sister - Diabetes Brother - Diabetes Brother ALLERGIES Allergen Reactions - Gluten Diarrhea Upset stomach Gas build up MEDICATION Pre-admission perflutren lipid microspheres 1.3 mL in NaCl (PF) 0.9% 10 mL injection (DEFINITY), , INTRAVENOUS, DIRECTED PRN, Walter Nuñez MD sodium chloride 0.9 % (flush) 10 mL (BD POSIFLUSH), 10 mL, INTRAVENOUS, DIRECTED PRN, Walter Nuñez MD amLODIPine (NORVASC) 5 mg tablet, Take 1 tablet by mouth once daily., Disp: 90 tablet, Rfl: 3 tamsulosin (FLOMAX) 0.4 mg, Take 1 capsule by mouth once daily., Disp: 90 capsule, Rfl: 3 metoprolol tartrate, short acting, (LOPRESSOR) 50 mg tablet, Take 1 tablet by mouth twice daily., Disp: 180 tablet, Rfl: 3 f-lqgectvmn-awzsdkad root extract-aloe leaf extract (GLUTAGENICS) [id number] powder, Mix one teaspoon (4.33 g) with water three times daily (1 teaspoon = 3.5 grams L-glut), Disp: , Rfl: milk thistle seed extract 200 mg cap, Take 1 capsule by mouth once daily., Disp: , Rfl: cholecalciferol (VITAMIN D3) 5,000 unit tab, Take 1 tablet by mouth once daily., Disp: , Rfl: ZINC ORAL, Take 50 mg by mouth once daily., Disp: , Rfl: TESTOSTERONE, BULK, MISC, Cream, Disp: , Rfl: Aspirin 81 mg tab, Take 1 tablet by mouth once daily., Disp: , Rfl: 0 budesonide, enteric coated (ENTOCORT EC) 3 mg 24 hr capsule, Take 6 mg by mouth as needed., Disp: , Rfl: Herbal Drugs cap, Take 1 capsule by mouth once daily. BIOHM, Disp: , Rfl: SprectraZyme Mcqueen 9x ES, Take 1 tablet by mouth w MEALS., Disp: , Rfl: OTC PRODUCT, Liver md 2 caps daily, Disp: , Rfl: OTC PRODUCT, Arterial protect one cap dialy, Disp: , Rfl: Glutamine (L-GLUTAMINE) 500 mg cap, Take by mouth once daily., Disp: , Rfl: cholestyramine (QUESTRAN) 4 gram packet, prn , Disp: , Rfl: Current Current Facility-Administered Medications Medication Dose Route Frequency Provider Last Rate Last Admin - acetaminophen 650 mg tab(s) (TYLENOL) 650 mg ORAL q 4 H PRN Gaby Carrillo DIRECTOR OF HOTEL OPERATIONS.BUILDING SPECIALIST 650 mg at 04/03/23 0201 - amLODIPine 5 mg tab(s) (NORVASC) 5 mg ORAL DAILY Feroz Dasilva MD 5 mg at 04/02/23 0857 - metoprolol tartrate (short acting) 50 mg tab(s) (LOPRESSOR) 50 mg ORAL BID Feroz Dasilva MD 50 mg at 04/02/236 (more content not included)... Normal [facility] ECHOon 04-03-2023 Echocardiography Echocardiography Report: Transthoracic Echo [facility] Date of service: 04/03/2023 1:11:15 PM Ordering physician: KOKI KNAPP Indication: Stroke Technologist: Senait Thomason [facility] Interpreting physician: Carley Givens MD PATIENT: Name: MR. SERGO Suárez HEADINGS : 1935 Age: 88 years Gender: M History of hypertension. Primary rhythm: sinus. Height: 172.70 cm BSA: 1.83 m Weight: 69.72 kg BMI: 23.4 kg/m Heart rate 60 bpm Blood pressure 134/61 mmHg Agitated saline was administered to assess source of emboli. Color Doppler was utilized to interrogate the cardiac valves assessed and spectral Doppler was utilized to determine the flow velocities and pressure gradients reported in this exam. Myocardial strain analysis was performed in this exam to aid in the assessment of cardiac function. MEASUREMENTS: Value Indexed Normal Max aortic dimension 3.7 cm Ao < 3.8 Left atrium diameter 3.8 cm (M-Mode) Left atrial volume 62 ml (biplane A-L) 34 ml/m Kip <= 34 LV ID (diastole) 3.7 cm (2D) 2.02 cm/m LV ID (systole) 2.4 cm (2D) 1.31 cm/m IVS, leaflet tips 1.4 cm (2D) Posterior wall thickness 1.4 cm (2D) Left ventricular mass 187 g (2D) 102 g/m Global peak long strain -19.0 % LV stroke volume 58 ml (2D biplane) LVOT stroke volume 73 ml 40 ml/m LV end diastolic volume 81 ml (2D biplane) 44.1 ml/m 34<=EDVi<75 LV end systolic volume 22 ml (2D biplane) 12.2 ml/m Ejection Fraction 72 % (2D biplane) EF > 52 FINDINGS: LEFT VENTRICLE The left ventricle is normal in size. There is moderate concentric left ventricular hypertrophy. Left ventricular systolic function is hyperdynamic. Global LV myocardial strain is normal. Left ventricular diastolic function was not evaluated due to >2+ AI. Mitral annular lateral E/e': 8.6. Mitral annular septal E/e': 11.1. Wall Motion: All scored segments are normal. RIGHT VENTRICLE The right ventricle is normal in size. Right ventricular systolic function is normal. RV systolic tissue Doppler velocity is 18.3 cm/s. Tricuspid annular displacement is 2.8 cm. Estimated right ventricular systolic pressure is not reported due to an insufficient tricuspid regurgitation signal. Estimated right atrial pressure is 3 mmHg based on IVC assessment. LEFT ATRIUM The left atrial cavity is normal in size. RIGHT ATRIUM The right atrial cavity is normal in size. Inferior Vena Cava: The inferior vena cava appears normal measuring 0.8 cm. The vessel decreases greater than 50 percent with inspiration. MITRAL VALVE There is mild mitral annular calcification. There is trace (trace - 1+) mitral valve regurgitation. There is mild thickening. There is mild calcification. The peak mitral valve gradient is 6 mmHg. The mean mitral valve gradient is 2 mmHg. The pressure half time is 91 msec. The peak mitral E/A ratio is 0.57. The average mitral E/e' ratio is 9.8. The mitral flow deceleration time is 314 msec. TRICUSPID VALVE There is trace (trace - 1+) tricuspid valve regurgitation. There is no calcification. AORTIC VALVE There is moderate (2+) aortic valve regurgitation. Tricuspid aortic valve. There is moderate thickening. There is mild calcification. The peak gradient is 13 mmHg (peak velocity = 182.5 cm/s). The mean gradient is 8 mmHg. The LVOT mean velocity is 63.9 cm/s. The LVOT diameter is 2.1 cm. The aortic VTI is 34.4 cm. The mean velocity in the aortic valve is 121.0 cm/s. The dimensionless valve index is 0.61. AV area is 2.11 cm (1.15 cm /m ) by continuity, VTI. The LVOT stroke volume index is 40 ml/m . PULMONIC VALVE There is trace pulmonic valve regurgitation. There is no calcification. The peak gradient is 3 mmHg. AORTA The visualized aorta is normal in size. Measurements - Sinus: 3.0 cm. Sinotubular junction 2.5 cm. Mid ascending aorta 3.7 cm. PERICARDIUM There is a trivial pericardial effusion. CONCLUSIONS: - Exam indication: Stroke - The left ventricle is normal in size. There is moderate concentric left ventricular hypertrophy. Left ventricular systolic function is hyperdynamic. EF = 72 5% (2D biplane) Left ventricular diastolic function was not evaluated due to >2+ AI. - The right ventricle is normal in size. Right ventricular systolic function is normal. - There is moderate (2+) aortic valve regurgitation. No PFO on bubble contrast injection - Exam was compared with the prior echocardiographic exam performed on 05/13/21. * * * Final * * * [employer] : [id number] Normal [facility] MRI BRAIN WO/W IVCONon 04-03 MRI BRAIN WO/W IVCON * * *Final Report* * * DATE OF EXAM: Apr 03 2023 4:34PM [facility] 0295 - MRI BRAIN WO/W IVCON / PROCEDURE REASON: Transient ischemic attack (TIA) * * * * Physician Interpretation * * * * EXAMINATION: MRI BRAIN WO/W IVCON HISTORY: Transient ischemic attack (TIA) TECHNIQUE: Routine brain MRI protocol without and with contrast including diffusion and gradient echo images. MQ: [id number] Contrast: 12 mL Dotarem IV COMPARISON: CT brain 04/01/2023 RESULT: Acute Change: Acute infarct of the right inferior parietal lobule. Hemorrhage: Possible small punctate area of petechial hemorrhage within the dorsal aspect of the infarct. Mass Lesion/ Mass Effect: No evidence of an intracranial mass or extra-axial fluid collection. No abnormal parenchymal or leptomeningeal enhancement is noted following contrast administration. No significant mass effect. Chronic Change: Small foci of enhancement along the right lateral temporal occipital junction, right middle cerebral peduncle, and right cerebellar hemisphere are compatible with small subacute infarcts. Chronic infarct of the right superior and patchy T2/FLAIR hyperintensity in the supratentorial white matter is compatible with mild chronic microvascular ischemia. Chronic lacunar infarcts in the cerebellar hemispheres. Middle frontal gyri. Parenchyma: There is mild generalized parenchymal volume loss. Ventricles: Ventriculomegaly corresponds to the degree of parenchymal volume loss. Skull Base: Hypothalamic and pituitary region are grossly normal. Craniocervical junction is normal. No significant marrow replacement process. Vasculature: Major intracranial arterial structures, and dural venous sinuses show typical flow void, suggesting patency by spin echo criteria. Other: The visualized paranasal sinuses and mastoid air cells are clear. The orbits and extracranial soft tissues are unremarkable. IMPRESSION: Acute right parietal infarct with suspected minimal petechial hemorrhage. Subacute and chronic infarcts as described. Hog Scraper: [facility]ITAL[facility] Transcribe Date/Time: Apr 03 2023 4:37P Dictated by : IRVIN YUSUF MD This examination was interpreted and the report reviewed and electronically signed by: IRVIN YUSUF MD on Apr 03 2023 4:45PM EST [id number] N [facility] XR RIB/CHST 3V AP RIB/OBL/CH [facility] 04-03-2023 XR RIB/CHST 3V AP RIB/OBL/CHST L * * *Final Report* * * DATE OF EXAM: Apr 03 2023 8:15PM [id number] - XR RIB/CHST 3V AP RIB/OBL/CHST L / PROCEDURE REASON: Rib fracture suspected, traumatic * * * * Physician Interpretation * * * * XR RIB/CHST 3V AP RIB/OBL/CHST L Ordering Physician: WALTER CHÁVEZ 04/03/2023 8:15 PM LEFT RIBS Clinical Statement: Patient fell, pain FINDINGS: 5 views of the left ribs were obtained. There were no prior studies available for comparison. There are minimally displaced fractures at the lateral aspect of the left eighth and ninth ribs. There is a minimally displaced fracture at the anterior aspect of the left 10th rib. There is a small lucency at the left apex compatible with a small pneumothorax. There are atelectatic changes at the left base. IMPRESSION: Fractures of the left eighth, ninth and 10th ribs. There are findings compatible with a small left pneumothorax. The results were forwarded to the patient's clinician at the time of interpretation. Hog Scraper: PSCB Transcribe Date/Time: Apr 04 2023 7:50A Dictated by : JANET OLIVEIRA MD This examination was interpreted and the report reviewed and electronically signed by: JANET OLIVEIRA MD on Apr 04 2023 7:54AM EST [id number] Normal [facility] Comprehensive metabolic 2000 panelon 04-02-2023 Albumin [Mass/Vol] 3.5 g/dL Normal 3.2-5.0 [facility] Comment on above: Order Comment: Specjacki graham Type: BLOOD SPECIMENOrdering Facility: [facility] Address: [address] [address] Performed By: #### 2 4323-8 ####[facility] LABORATORYCLIA [id number] [place] [address] [place] ALP [Catalytic activity/Vol] 76 U/L Normal 45-117 [facility] Comment on above: Order Comment: Shani graham Type: BLOOD SPECIMENOrdering Facility: [facility] Address: [address] [id number] Performed By: #### 2 4323-8 ####[facility] LABORATORYCLIA [id number] [place] [address] [place] ALT [Catalytic activity/Vol] 12 U/L Low 13-61 [facility] Comment on above: Order Comment: Jenai santos Type: BLOOD SPECIMENOrdering Facility: [facility] Address: [address] [address] Result Comment: Resu lts may be falsely depressed after the administration of Sulfasalazine and/or Sulfapyridine. Performed By: #### 2 4323-8 ####[facility] LABORATORYCLIA [id number] [place] [address] [place] Anion gap [Moles/Vol] 10 mmol/L Normal 5-16 [facility] Comment on above: Order Comment: Speci men Type: BLOOD SPECIMENOrdering Facility: [facility] Address: [address] [place] [address] Performed By: #### 2 4323-8 ####[facility] LABORATORYCLIA [id number] [place] [address] [place] AST [Catalytic activity/Vol] 13 U/L Normal 8-34 [facility] Comment on above: Order Comment: Speci men Type: BLOOD SPECIMENOrdering Facility: [facility] Address: [address] [place] [address] Result Comment: Resu lts may be falsely depressed after the administration of Sulfasalazine and/or Sulfapyridine. Performed By: #### 2 4323-8 ####[facility] LABORATORYCLIA [id number] [place] [address] [place] Bilirubin [Mass/Vol] 1.1 mg/dL High 0.2-1.0 [facility] Comment on above: Order Comment: Speci men Type: BLOOD SPECIMENOrdering Facility: [facility] Address: [address] [place] [address] Performed By: #### 2 4323-8 ####[facility] LABORATORYCLIA [id number] [place] [address] [place] Calcium [Mass/Vol] 9.3 mg/dL Normal 8.5-10.5 [facility] Comment on above: Order Comment: Speci men Type: BLOOD SPECIMENOrdering Facility: [facility] Address: [address] [place] [address] Performed By: #### 2 4323-8 ####[facility] LABORATORYCLIA [id number] [place] [address] [place] Chloride [Moles/Vol] 103 mmol/L Normal 98-107 [facility] Comment on above: Order Comment: Jenai men Type: BLOOD SPECIMENOrdering Facility: [facility] Address: [address] [address] Performed By: #### 2 4323-8 ####[facility] LABORATORYCLIA [id number] [place] [address] [place] CO2 [Moles/Vol] 25 mmol/L Normal 21-32 [facility] Comment on above: Order Comment: Speci men Type: BLOOD SPECIMENOrdering Facility: [facility] Address: [address] [address] Performed By: #### 2 4323-8 ####[facility] LABORATORYCLIA [id number] [place] [address] [place] Creatinine [Mass/Vol] 1.11 mg/dL Normal 0.50-1.40 [facility] Comment on above: Order Comment: Jenai men Type: BLOOD SPECIMENOrdering Facility: [facility] Address: [address] [place] [address] Result Comment: Pam ents receiving either N-Acetylcysteine (NAC) or Metamizole prior to venipuncture, may have falsely depressed results. Performed By: #### 2 4323-8 ####[facility] LABORATORYCLIA [id number] [place] [address] [place] ESTIMATED GLOMERULAR FILTRATION RATE 65 mL/min/1.73m??? Normal >=60 [facility] Comment on above: Order Comment: Shani santos Type: BLOOD SPECIMENOrdering Facility: [facility] Address: [address] [address] Result Comment: Raquel mated Glomerular Filtration Rate (eGFR) is calculated using the 2020 CKD-EPI creatinine equation. This equation utilizes serum creatinine, sex, and age as parameters. The creatinine assay has traceable calibration to isotope dilution-mass spectrometry. Refer to KDIGO guidelines for clinical interpretation. In patients with unstable renal function, e.g. those with acute kidney injury, the eGFR may not accurately reflect actual GFR. Performed By: #### 2 4323-8 ####[facility] LABORATORYCLIA [id number] [place] [address] [place] Glucose [Mass/Vol] 101 mg/dL High 70-100 [facility] Comment on above: Order Comment: Speci men Type: BLOOD SPECIMENOrdering Facility: [facility] Address: [address] [place] [address] Result Comment: The [place] Diabetes Association (ADA) provides guidance for cutoff values for fasting glucose and random glucose. The ADA defines fasting as no caloric intake for at least 8 hours. Fasting plasma glucose results between 100 to 125 mg/dL indicate increased risk for diabetes (prediabetes). Fasting plasma glucose results greater than or equal to 126 mg/dL meet the criteria for diagnosis of diabetes. In the absence of unequivocal hyperglycemia, results should be confirmed by repeat testing. In a patient with classic symptoms of hyperglycemia or hyperglycemic crisis, random plasma glucose results greater than or equal to 200 mg/dL meet the criteria for diagnosis of diabetes. Reference: Standards of Medical Care in Diabetes 2016, [place] [employer] Association. Diabetes Care. 2016.39(Suppl 1). Results may be falsely elevated after the administration of Sulfapyridine. Results may be falsely depressed after the administration of Sulfasalazine. Performed By: #### 2 4323-8 ####[facility]ATORYCLIA [id number] [place] [address] [place] Potassium [Moles/Vol] 4.2 mmol/L Normal 3.5-5.1 [facility] Comment on above: Order Comment: Speci men Type: BLOOD SPECIMENOrdering Facility: [facility] Address: [address] [address] Performed By: #### 2 4323-8 ####[facility]ORATORYCLIA [id number] [place] [address] [place] Protein [Mass/Vol] 6.6 g/dL Normal 6.0-8.5 [facility] Comment on above: Order Comment: Speci men Type: BLOOD SPECIMENOrdering Facility: [facility] Address: [address] [place] [address] Performed By: #### 2 4323-8 ####[facility] LABORATORYCLIA [id number] [address] [place] [facility] Sodium [Moles/Vol] 138 mmol/L Normal 136-145 [facility] Comment on above: Order Comment: Speci men Type: BLOOD SPECIMENOrdering Facility: [facility] Address: [address] [place] [address] Performed By: #### 2 4323-8 ####[facility]ORATORYCLIA [id number] [place] [address] [place] Urea nitrogen [Mass/Vol] 17 mg/dL Normal 7-26 [facility] Comment on above: Order Comment: Speci men Type: BLOOD SPECIMENOrdering Facility: [facility] Address: [address] [place] [address] Performed By: #### 2 4323-8 ####[facility]ATORYCLIA [id number] [place] [address] [place] CBC W Auto Differential pane l (Bld)on 04-01-2023 Basophils (Bld) [#/Vol] 0.03 10*3/uL Normal <0.11 [facility] Comment on above: Order Comment: Speci men Type: BLOOD SPECIMEN Ordering Facility: [facility] Address: [address] [place] [address] Performed By: #### 5 7021-8, 76685-3 #### [facility] CLIA [id number] [address] [place] [address] [place] Basophils/100 WBC (Bld) 0.6 % Normal [facility] Comment on above: Order Comment: Speci men Type: BLOOD SPECIMEN Ordering Facility: [facility] Address: [address] [place] [address] Performed By: #### 5 7021-8, 76063-1 #### [facility] CLIA [id number] [address] [place] [address] [place] Differential cell count method Nom (Bld) Auto Normal [facility] Comment on above: Order Comment: Speci men Type: BLOOD SPECIMEN Ordering Facility: [facility] Address: [address] [address] Performed By: #### 5 7021-8, 16783-8 #### [facility] CLIA [id number] [address] [place] [address] [place] Eosinophils (Bld) [#/Vol] 0.61 10*3/uL High <0.46 [facility] Comment on above: Order Comment: Speci men Type: BLOOD SPECIMEN Ordering Facility: [facility] Address: [address] [address] Performed By: #### 5 7021-8, 33415-2 #### [facility] CLIA [id number] [address] [place] [address] [place] Eosinophils/100 WBC (Bld) 12.4 % Normal [facility] Comment on above: Order Comment: Speci men Type: BLOOD SPECIMEN Ordering Facility: [facility] Address: [address] [address] Performed By: #### 5 7021-8, 72194-0 #### [facility] CLIA [id number] [address] [place] [address] [place] Erythrocyte distribution width (RBC) [Ratio] 14.9 % Normal 11.5-15.0 [facility] Comment on above: Order Comment: Speci men Type: BLOOD SPECIMEN Ordering Facility: [facility] Address: [address] Performed By: #### 5 7021-8, 94117-7 #### [facility] CLIA [id number] [address] [place] [address] [place] Hematocrit (Bld) [Volume fraction] 36.9 % Low 39.0-51.0 [facility] Comment on above: Order Comment: Speci men Type: BLOOD SPECIMEN Ordering Facility: [facility] Address: [address] Performed By: #### 5 7021-8, 82110-5 #### [facility] CLIA [id number] [address] [place] [address] [place] Hemoglobin (Bld) [Mass/Vol] 12.4 g/dL Low 13.0-17.0 [facility] Comment on above: Order Comment: Speci men Type: BLOOD SPECIMEN Ordering Facility: [facility] Address: [address] [place] [address] Performed By: #### 5 7021-8, 21877-9 #### [facility] CLIA [id number] [address] [place] [address] [place] Immature granulocytes (Bld) [#/Vol] 10*3/uL Normal <0.10 [facility] Comment on above: Order Comment: Speci men Type: BLOOD SPECIMEN Ordering Facility: [facility] Address: [address] [place] [address] Performed By: #### 5 7021-8, 66803-1 #### [facility] CLIA [id number] [address] [place] [address] [place] Immature granulocytes/100 WBC (Bld) 0.2 % Normal [facility] Comment on above: Order Comment: Speci men Type: BLOOD SPECIMEN Ordering Facility: [facility] Address: [address] [place] [address] Performed By: #### 5 7021-8, 75095-5 #### [facility] CLIA [id number] [address] [place] [address] [place] Lymphocytes (Bld) [#/Vol] 1.42 10*3/uL Normal 1.00-4.00 [facility] Comment on above: Order Comment: Speci men Type: BLOOD SPECIMEN Ordering [facility]: [facility] Address: [address] [place] [address] Performed By: #### 5 7021-8, 54871-9 #### [facility] CLIA [id number] [address] [place] [address] [place] Lymphocytes/100 WBC (Bld) 28.8 % Normal [facility] Comment on above: Order Comment: Speci men Type: BLOOD SPECIMEN Ordering [facility]: [facility] Address: [address] [place] [address] Performed By: #### 5 7021-8, 83963-5 #### [facility] CLIA [id number] [address] [place] [address] MCH (RBC) [Entitic mass] 30.2 pg Normal 26.0-34.0 [facility] Comment on above: Order Comment: Speci men Type: BLOOD SPECIMEN Ordering Facility: [facility] Address: [address] [place] [address] Performed By: #### 5 7021-8, 96234-0 #### [facility] CLIA [id number] [address] [place] [address] [place] MCHC (RBC) [Mass/Vol] 33.6 g/dL Normal 30.5-36.0 [facility] Comment on above: Order Comment: Speci men Type: BLOOD SPECIMEN Ordering Facility: [facility] Address: [address] [place] [address] Performed By: #### 5 7021-8, 08117-0 #### [facility] CLIA [id number] [address] [place] [address] [place] MCV (RBC) [Entitic vol] 90.0 fL Normal 80.0-100.0 [facility] Comment on above: Order Comment: Speci men Type: BLOOD SPECIMEN Ordering Facility: [facility] Address: [address] [place] [address] Performed By: #### 5 7021-8, 50861-8 #### [facility] CLIA [id number] [address] [place] [address] Monocytes (Bld) [#/Vol] 0.60 10*3/uL Normal <0.87 [facility] Comment on above: Order Comment: Speci men Type: BLOOD SPECIMEN Ordering Facility: [facility] Address: [address] [place], [place] [address] Performed By: #### 5 7021-8, 24060-9 #### [facility] CLIA [id number] [address] [place] [address] [place] Monocytes/100 WBC (Bld) 12.2 % Normal [facility] Comment on above: Order Comment: Speci men Type: BLOOD SPECIMEN Ordering Facility: [facility] Address: [address] Performed By: #### 5 7021-8, 66647-2 #### [facility] CLIA [id number] [address] [place] [address] [place] Neutrophils (Bld) [#/Vol] 2.26 10*3/uL Normal 1.45-7.50 [facility] Comment on above: Order Comment: Speci men Type: BLOOD SPECIMEN Ordering Facility: [facility] Address: [address] Performed By: #### 5 7021-8, 13060-9 #### [facility] CLIA [id number] [address] [place] [address] [place] Neutrophils/100 WBC (Bld) 45.8 % Normal [facility] Comment on above: Order Comment: Speci men Type: BLOOD SPECIMEN Ordering Facility: [facility] Address: [address] Performed By: #### 5 7021-8, 54746-4 #### [facility] CLIA [id number] [address] [place] [address] [place] Nucleated RBC (Bld) [#/Vol] 10*3/uL Normal <0.01 [facility] Comment on above: Order Comment: Speci men Type: BLOOD SPECIMEN Ordering Facility: [facility] Address: [address] Performed By: #### 5 7021-8, 69890-7 #### [facility] CLIA [id number] [address] [place], [place] [address] [place] Nucleated RBC/100 WBC (Bld) [Ratio] 0.0 /100 WBC Normal [facility] Comment on above: Order Comment: Speci men Type: BLOOD SPECIMEN Ordering Facility: [facility] Address: [address] [place] [address] Performed By: #### 5 7021-8, 51391-8 #### [facility] CLIA [id number] [address] [place] [address] [place] Platelet mean volume (Bld) [Entitic vol] 10.3 fL Normal 9.0-12.7 [facility] Comment on above: Order Comment: Speci men Type: BLOOD SPECIMEN Ordering Facility: [facility] Address: [address] [place] [address] Performed By: #### 5 7021-8, 94075-8 #### [facility] CLIA [id number] [address] [place] [address] [place] Platelets (Bld) [#/Vol] 209 10*3/uL Normal 150-400 [facility] Comment on above: Order Comment: Speci men Type: BLOOD SPECIMEN Ordering Facility: [facility] Address: [address] [place] [address] Performed By: #### 5 7021-8, 60096-8 #### [facility] CLIA [id number] [address] [place] [address] [place] RBC (Bld) [#/Vol] 4.10 10*6/uL Low 4.20-6.00 [facility] Comment on above: Order Comment: Speci men Type: BLOOD SPECIMEN Ordering Facility: [facility] Address: [address] [place] [address] Performed By: #### 5 7021-8, 66445-0 #### [facility] CLIA [id number] [address] [place] [address] [place] WBC (Bld) [#/Vol] 4.93 10*3/uL Normal 3.70-11.00 [facility] Comment on above: Order Comment: Speci men Type: BLOOD SPECIMEN Ordering Facility: [facility] Address: [place] [address] Performed By: #### 5 7021-8, 71674-9 #### [facility] CLIA [id number] [address] [place] [address] [place] [address] BRAIN WO IVCONon 04-01-[address] BRAIN WO IVCON * * *Final Report* * * DATE OF EXAM: Apr 01 2023 5:04PM [facility] 0504 - CT BRAIN WO IVCON / PROCEDURE REASON: Transient ischemic attack (TIA) * * * * Physician Interpretation * * * * EXAMINATION: CT BRAIN WO IVCON CLINICAL HISTORY: Transient ischemic attack. TECHNIQUE: Serial axial images without IV contrast were obtained from the vertex to the foramen magnum. MQ: CTBWO_3 CT Radiation dose: Integrated Dose-Length Product (DLP) for this visit = 770.97 mGy*cm CT Dose Reduction Employed: Iterative recon COMPARISON: None. RESULT: Post-operative change: None. Acute change: No evidence of an acute infarct or other acute parenchymal process. Hemorrhage: No evidence of acute intracranial hemorrhage. ECASS hemorrhagic transformation score: Not Applicable Mass Lesion / Mass Effect: There is no evidence of an intracranial mass or extraaxial fluid collection. No significant mass effect. Chronic change: Small region of encephalomalacia and gliosis is present in the right frontal lobe. Parenchyma: There is no significant volume loss. The brain parenchyma is otherwise within normal limits for age. Ventricles: The ventricles are within normal limits of size and configuration for age. Paranasal sinuses and skull base: The visualized paranasal sinuses are grossly clear. The skull base and imaged soft tissues are unremarkable. Mortising Machine Operator (topogram) images: No additional findings. IMPRESSION: No acute intracranial abnormality. Hog Scraper: PSCB Transcribe Date/Time: Apr 01 2023 5:39P Dictated by : CHRISTINE ARNOLD MD This examination was interpreted and the report reviewed and electronically signed by: CHRISTINE ARNOLD MD on Apr 01 2023 5:43PM EST [id number] Normal [facility] CTA HEAD W IVCONon 3 CTA HEAD W IVCON * * *Final Report* * * DATE OF EXAM: Apr 01 2023 7:31PM [facility] 0022 - CTA HEAD W IVCON / PROCEDURE REASON: Focal neuro deficit, new, fixed, or worsening, 4.5 to 24 hours, NIHSS < 6, strok * * * * Physician Interpretation * * * * EXAMINATION: CTA NECK W IVCON, CTA HEAD W IVCON HISTORY: Focal neuro deficit. TECHNIQUE: Spiral high resolution axial images were obtained through the head, neck and superior mediastinum following bolus administration of intravenous contrast for CT angiography. 3D maximum intensity projection images were created, reviewed and archived . MQ: CTAHN_4 Contrast: 100 mL Omnipaque [address] Radiation dose: Integrated Dose-Length Product (DLP) for this visit = 455.45 mGy*cm. CT Dose Reduction Employed: Iterative recon COMPARISON: CT brain performed 04/01/2023. RESULT: BRAIN: Evaluation of the individual slices of the CTA demonstrates no evidence of an acute stroke. ASPECT Score = 10 Hemorrhage: No evidence of acute intracranial hemorrhage. ECASS hemorrhagic transformation score: Not Applicable NECK: Soft tissues: The soft tissue planes are maintained throughout. No evidence of a soft tissue mass in the neck or superior mediastinum. No significant lymphadenopathy is seen. Spine: Alignment is normal. Mild multilevel degenerative changes are present. Lung apices: The visualized lung apices are clear. CT ARTERIOGRAM: Extracranial Circulation: Aortic Arch: There is a normal branching pattern from the aortic arch. Scattered vascular calcifications. Carotid Stenosis: Right Common: No significant stenosis. Right Internal Carotid Plaque: Mild Right Internal Carotid Stenosis (% by NASCET Criteria): 30-40 Left Common: No significant stenosis. Left Internal Carotid Plaque: Mild Left Internal Carotid Stenosis (% by NASCET Criteria): Less than 30 Cervical Vertebral Arteries: Patency: Bilateral Dominance: Left Intracranial Circulation: The petrous, cavernous, and supraclinoid internal carotid arteries are patent. Anterior cerebral arteries and middle cerebral arteries are patent. Intracranial vertebral arteries, basilar artery, and posterior cerebral arteries are patent. No vessel cutoffs or aneurysms are identified. Major dural venous sinuses are patent. Mortising Machine Operator (topogram) images: Noncontributory. IMPRESSION: No large vessel occlusion or high-grade stenosis. Arterial blood flow was measured to detect acute large vessel occlusion by computer aided detection software: Not Performed. Concordance between software and imaging review: Not Applicable. Hog Scraper: TIANA Transcribe Date/Time: Apr 01 2023 7:34P Dictated by : ARIN SHI MD This examination was interpreted and the report reviewed and electronically signed by: ARIN SHI MD on Apr 01 2023 8:44PM EST [id number] Normal [facility] CTA NECK W IVCONon 3 CTA NECK W IVCON * * *Final Report* * * DATE OF EXAM: Apr 01 2023 7:31PM [facility] 0024 - CTA NECK W IVCON / PROCEDURE REASON: Focal neuro deficit, new, fixed, or worsening, 4.5 to 24 hours, NIHSS < 6, strok * * * * Physician Interpretation * * * * EXAMINATION: CTA NECK W IVCON, CTA HEAD W IVCON HISTORY: Focal neuro deficit. TECHNIQUE: Spiral high resolution axial images were obtained through the head, neck and superior mediastinum following bolus administration of intravenous contrast for CT angiography. 3D maximum intensity projection images were created, reviewed and archived . MQ: CTAHN_4 Contrast: 100 mL Omnipaque [address] Radiation dose: Integrated Dose-Length Product (DLP) for this visit = 455.45 mGy*cm. CT Dose Reduction Employed: Iterative recon COMPARISON: CT brain performed 04/01/2023. RESULT: BRAIN: Evaluation of the individual slices of the CTA demonstrates no evidence of an acute stroke. ASPECT Score = 10 Hemorrhage: No evidence of acute intracranial hemorrhage. ECASS hemorrhagic transformation score: Not Applicable NECK: Soft tissues: The soft tissue planes are maintained throughout. No evidence of a soft tissue mass in the neck or superior mediastinum. No significant lymphadenopathy is seen. Spine: Alignment is normal. Mild multilevel degenerative changes are present. Lung apices: The visualized lung apices are clear. CT ARTERIOGRAM: Extracranial Circulation: Aortic Arch: There is a normal branching pattern from the aortic arch. Scattered vascular calcifications. Carotid Stenosis: Right Common: No significant stenosis. Right Internal Carotid Plaque: Mild Right Internal Carotid Stenosis (% by NASCET Criteria): 30-40 Left Common: No significant stenosis. Left Internal Carotid Plaque: Mild Left Internal Carotid Stenosis (% by NASCET Criteria): Less than 30 Cervical Vertebral Arteries: Patency: Bilateral Dominance: Left Intracranial Circulation: The petrous, cavernous, and supraclinoid internal carotid arteries are patent. Anterior cerebral arteries and middle cerebral arteries are patent. Intracranial vertebral arteries, basilar artery, and posterior cerebral arteries are patent. No vessel cutoffs or aneurysms are identified. Major dural venous sinuses are patent. Mortising Machine Operator (topogram) images: Noncontributory. IMPRESSION: No large vessel occlusion or high-grade stenosis. Arterial blood flow was measured to detect acute large vessel occlusion by computer aided detection software: Not Performed. Concordance between software and imaging review: Not Applicable. Hog Scraper: PSCB Transcribe Date/Time: Apr 01 2023 7:34P Dictated by : ARIN SHI MD This examination was interpreted and the report reviewed and electronically signed by: ARIN SHI MD on Apr 01 2023 8:44PM EST [id number] Normal [facility] Comprehensive metabolic 2000 panelon 04-01-2023 Albumin [Mass/Vol] 3.4 g/dL Normal 3.2-5.0 [facility] Comment on above: Order Comment: Shani graham Type: BLOOD SPECIMEN Ordering Facility: [facility] Address: [address] [place] [address] Performed By: #### 2 4323-8, 72383-1, 93739-8 #### [facility] CLIA [id number] [address] [place] [address] [place] ALP [Catalytic activity/Vol] 70 U/L Normal 45-117 [facility] Comment on above: Order Comment: Shani graham Type: BLOOD SPECIMEN Ordering Facility: [facility] Address: [address] [place], [place] [address] Performed By: #### 2 4323-8, 03416-1, 45530-1 #### [facility] CLIA [id number] [address] [place] [address] [place] ALT [Catalytic activity/Vol] 12 U/L Low 13-61 [facility] Comment on above: Order Comment: Shani graham Type: BLOOD SPECIMEN Ordering Facility: [facility] Address: [address] [id number] Result Comment: Resu lts may be falsely depressed after the administration of Sulfasalazine and/or Sulfapyridine. Performed By: #### 2 4323-8, , #### [facility] CLIA [id number] [address] [place] [address] [place] Anion gap [Moles/Vol] 6 mmol/L Normal 5-16 [facility] Comment on above: Order Comment: Speci men Type: BLOOD SPECIMEN Ordering Facility: [facility] Address: [address] [place] [address] Performed By: #### 2 4323-8, , #### [facility] CLIA [id number] [address] [id number] [place] AST [Catalytic activity/Vol] 14 U/L Normal 8-34 [facility] Comment on above: Order Comment: Speci men Type: BLOOD SPECIMEN Ordering Facility: [facility] Address: [address] [place] [address] Result Comment: Resu lts may be falsely depressed after the administration of Sulfasalazine and/or Sulfapyridine. Performed By: #### 2 4323-8, , #### [facility] CLIA [id number] [address] [place], [place] [address] [place] Bilirubin [Mass/Vol] 0.7 mg/dL Normal 0.2-1.0 [facility] Comment on above: Order Comment: Speci men Type: BLOOD SPECIMEN Ordering Facility: [facility] Address: [address] [place] [address] Performed By: #### 2 4323-8, , #### [facility] CLIA [id number] [address] [place] [address] [place] Calcium [Mass/Vol] 9.1 mg/dL Normal 8.5-10.5 [facility] Comment on above: Order Comment: Speci men Type: BLOOD SPECIMEN Ordering Facility: [facility] Address: [address] [place] [address] Performed By: #### 2 4323-8, , 67925-9 #### [facility] CLIA [id number] [address] [place] [address] [place] Chloride [Moles/Vol] 104 mmol/L Normal 98-107 [facility] Comment on above: Order Comment: Speci men Type: BLOOD SPECIMEN Ordering Facility: [facility] Address: [address] [place] [address] Performed By: #### 2 4323-8, 18681-6, 28032-7 #### [facility] CLIA [id number] [address] [place] [address] [place] CO2 [Moles/Vol] 29 mmol/L Normal 21-32 [facility] Comment on above: Order Comment: Speci men Type: BLOOD SPECIMEN [facility] [facility] Address: [address] [place] [address] Performed By: #### 2 4323-8, , 31560-8 #### [facility] CLIA [id number] [address] [place] [address] [place] Creatinine [Mass/Vol] 1.31 mg/dL Normal 0.50-1.40 [facility] Comment on above: Order Comment: Speci men Type: BLOOD SPECIMEN Ordering Facility: [facility] Address: [address] [place] [address] Result Comment: Pam ents receiving either N-Acetylcysteine (NAC) or Metamizole prior to venipuncture, may have falsely depressed results. Performed By: #### 2 4323-8, 49640-7, 38135-0 #### [facility] CLIA [id number] [address] [place] [address] [place] ESTIMATED GLOMERULAR FILTRATION RATE 53 mL/min/1.73m??? Low >=60 [facility] Comment on above: Order Comment: Speci men Type: BLOOD SPECIMEN Ordering Facility: [facility] Address: [address] [place] [address] Result Comment: Raquel mated Glomerular Filtration Rate (eGFR) is calculated using the 2020 CKD-EPI creatinine equation. This equation utilizes serum creatinine, sex, and age as parameters. The creatinine assay has traceable calibration to isotope dilution-mass spectrometry. Refer to KDIGO guidelines for clinical interpretation. In patients with unstable renal function, e.g. those with acute kidney injury, the eGFR may not accurately reflect actual GFR. Performed By: #### 2 4323-8, 78193-1, 67096-8 #### [facility] CLIA [id number] [address] [place], [place] [address] [place] Glucose [Mass/Vol] 97 mg/dL Normal 70-100 [facility] Comment on above: Order Comment: Shani graham Type: BLOOD SPECIMEN Ordering Facility: [facility] Address: [address] [place], [place] [address] Result Comment: The [place] Diabetes Association (ADA) provides guidance for cutoff values for fasting glucose and random glucose. The ADA defines fasting as no caloric intake for at least 8 hours. Fasting plasma glucose results between 100 to 125 mg/dL indicate increased risk for diabetes (prediabetes). Fasting plasma glucose results greater than or equal to 126 mg/dL meet the criteria for diagnosis of diabetes. In the absence of unequivocal hyperglycemia, results should be confirmed by repeat testing. In a patient with classic symptoms of hyperglycemia or hyperglycemic crisis, random plasma glucose results greater than or equal to 200 mg/dL meet the criteria for diagnosis of diabetes. Reference: Standards of Medical Care in Diabetes 2016, [place] Diabetes Association. Diabetes Care. 2016.39(Suppl 1). Results may be falsely elevated after the administration of Sulfapyridine. Results may be falsely depressed after the administration of Sulfasalazine. Performed By: #### 2 4323-8, , 88836-0 #### [facility] CLIA [id number] [address] [place], [place] [address] [place] Potassium [Moles/Vol] 4.4 mmol/L Normal 3.5-5.1 [facility] Comment on above: Order Comment: Shani graham Type: BLOOD SPECIMEN Ordering Facility: [facility] Address: [address] [place] [address] Performed By: #### 2 4323-8, 23574-5, 53324-9 #### [facility] CLIA [id number] [address] [place] [address] [place] Protein [Mass/Vol] 6.6 g/dL Normal 6.0-8.5 [facility] Comment on above: Order Comment: Shani graham Type: BLOOD SPECIMEN Ordering Facility: [facility] Address: [address] [place], [place] [id number] Performed By: #### 2 4323-8, 83235-0, 18794-7 #### [facility] CLIA [id number] [address] [place] [address] [place] Sodium [Moles/Vol] 139 mmol/L Normal 136-145 [facility] Comment on above: Order Comment: Jenai santos Type: BLOOD SPECIMEN Ordering Facility: [facility] Address: [address] [place] [address] Performed By: #### 2 4323-8, 29995-9, 67220-2 #### [facility] CLIA [id number] [address] [place] [address] [place] Urea nitrogen [Mass/Vol] 21 mg/dL Normal 7-26 [facility] Comment on above: Order Comment: Jenai santos Type: BLOOD SPECIMEN Ordering Facility: [facility] Address: [address] [place] [address] Performed By: #### 2 4323-8, , 14595-9 #### [facility] CLIA [id number] [address] [place], [place] [address] [facility] [place] ED NOTEon 04-01-2023 ED NOTE HNO ID: [id number] Author: Sahra Lu RN Service: Nursing Author Type: Registered Nurse Type: ED Notes Filed: 04/01/2023 8:51 PM Note Text: Pt stating that they thought he had a TIA or something such as this. Patient states he was having left arm weakness with decreased strength. Patient not having these symptoms as of now. Patient not complaining of any weakness, numbness and tingling. Patient does have high BP but family states this is usual for him. Reports that he is due for his BP medication. Pt is alert and oriented x 4 and calm/cooperative. Normal [facility] ED NOTE HNO ID: [id number] Author: Carine Colorado RN Service: ? Author Type: Registered Nurse Type: ED Notes Filed: 04/01/2023 3:23 PM Note Text: Pt states was out walking with and left hand became . states patient was having trouble working his left hand. Symptoms resolved at this time. Was able to walk the mile back to where they started, no facial drooping or slurred speech. Normal [facility] ED PROV NOTEon 04-01-2023 ED PROV NOTE HNO ID: [id number] Author: Olaf Ramirez MD Service: Emergency Medicine Author Type: Physician Type: ED Provider Notes Filed: 04/01/2023 11:29 PM Note Text: ED Provider Note Patient Name: Sergo Suárez Headings : 1935 SERVICE DATE: 04/01/23 History Patient presents with: Weakness This is a 88-year-old male with past history of vascular disease include AAA with repair, hypertension hyperlipidemia, CKD presents ER today for evaluation of difficulty with coordination with left hand. Around 1130 today. States that it seemed like the left arm was in appendage and did not really belong to him. He was not involuntarily moving. He had trouble in doing buttons on his shirt. Is never had it like this before. Reports it seems to be better but not fully resolved. No headache, chest pain, no other neurologic symptoms such as numbness, tingling or weakness. As above he never had any like this before. And it has gotten slightly better but not under percent back to normal yet. History provided by: Patient and medical records PAST MEDICAL HISTORY Diagnosis Date Abdominal aortic aneurysm without rupture (HCC) 03/11/[address] Singh Benign prostatic hyperplasia with urinary hesitancy 12/13/2019 Had 10h of urinary retention, Voided x2 since chang removed but small volume Begun on flomax 12/11 Obtain postvoid residual to ensure no overflow incontinence Bilateral carotid artery stenosis 08/20/2018 Celiac disease 08/31/2010 Dermatophytosis of nail Diarrhea Disorders of bursae and tendons in shoulder region, unspecified 09/08/2013 Diverticulosis of large intestine Elevated hemoglobin A1c 02/10/2021 Hypertension, essential 02/02/2018 Internal hemorrhoids without mention of complication 05/05/2008 Medicare annual wellness visit, subsequent 02/08/2017 Medicare part B: 09/25/2012 last done: 03/27/2019 Mixed hyperlipidemia 11/30/2010 Neck pain, chronic 04/25/2017 Peripheral vascular disease (HCC) 02/25/2016 Stage 3a chronic kidney disease (HCC) 02/10/2021 Synovial cyst of right popliteal space 02/14/2022 Vitamin D deficiency 04/06/2009 PAST SURGICAL HISTORY Procedure Laterality Date ABD AORTA ANEURYSM REPAIR 11/2019 COLONOSCOPY FLX DX W/COLLJ SPEC WHEN PFRMD 03/23/2004 Colonoscopy COLONOSCOPY FLX DX W/COLLJ SPEC WHEN PFRMD 05/05/2008 Colonoscopy, repeat 10 yrs PAST SURGICAL HISTORY OF 04/14/2004 excision of lesion neck PAST SURGICAL HISTORY OF 02/21/1992 lesion removed from rectum FAMILY HISTORY Problem Relation Age of Onset Stroke Father other (lupus) Sister Diabetes Brother Diabetes Brother Social History Tobacco Use Smoking status: Never Smokeless tobacco: Never Substance and Sexual Activity Alcohol use: No Drug use: Never Sexual activity: Not on file ALLERGIES Allergen Reactions Gluten Diarrhea Upset stomach Gas build up Review of Systems All other systems reviewed and are negative. Physical Exam Vitals [04/01/23 1512] BP Pulse Temp Temp src Resp SpO2 Weight Height 171/58 57 36.6 ?C (97.9 ?F) Oral 18 97 % 68 kg (150 lb) 1.727 m (5' 8 ) Physical Exam Vitals and nursing note reviewed. Constitutional: General: He is not in acute distress. Appearance: Normal appearance. He is not ill-appearing, toxic-appearing or diaphoretic. Eyes: General: No scleral icterus. Right eye: No discharge. Left eye: No discharge. Extraocular Movements: Extraocular movements intact. Conjunctiva/sclera: Conjunctivae normal. Cardiovascular: Rate and Rhythm: Normal rate and regular rhythm. Heart sounds: Normal heart sounds. Pulmonary: Effort: Pulmonary effort is normal. Breath sounds: Normal breath sounds. Abdominal: Palpations: Abdomen is soft. Tenderness: There is no abdominal tenderness. There is no guarding or rebound. Musculoskeletal: Cervical back: Neck supple. Right lower leg: No edema. Left lower leg: No edema. Skin: General: Skin is warm and dry. Neurological: General: No focal deficit present. Mental Status: He is alert and oriented to person, place, and time. Cranial Nerves: No cranial nerve deficit. Sensory: No sensory deficit. Motor: No weakness. Coordination: Coordination abnormal. Comments: There is some abnormal coordination with regard to the left upper extremity some mild dysmetria. Left lower, right upper and right lower extremity are normal. Diagnostic Testing ED Labs Ordered and Reviewed COMP METABOLIC PANEL - Abnormal; Notable for the following components: Result Value Ref Range ALT 12 (*) 13 - 61 U/L Estimated Glomerular Filtration Rate 53 (*) >=60 mL/min/1.73m? All other components within normal limits CBC + DIFF - Abnormal; Notable for the following components: RBC 4.10 (*) 4.20 - 6.00 m/uL Hemoglobin 12.4 (*) 13.0 - 17.0 g/dL Hematocrit 36.9 (*) 39.0 - 51.0 % Abs Eosin 0.61 (*) <0.46 k/uL All other components within normal limits MAGNESIUM BLD - Normal (more content not included)... Normal [facility] ED Triage Noteon 04-01-2023 ED Triage Note HNO ID: [id number] Author: Gus Carbone PA-C Service: ? Author Type: Physician Winding Machine Operator Type: ED Triage Notes Filed: 04/01/2023 4:03 PM Note Text: ED INTAKE NOTE Patient Name: Sergo Jacobs Service Date: 04/01/23 BRIEF HPI: They were on the walk this afternoon when he developed some transient weakness to his left hand, he had diminished propagation worker strength. No other weakness, they actually walked a mile to get back to the car. He is asymptomatic at this time BRIEF EXAM: Alert, oriented, answering questions appropriately. No focal deficit or weakness, strong propagation worker strength INTAKE WORKUP: TIA work-up SIGNATURE: Gus Carbone PA-C [facility] HIGH SENSITIVITY TROPONIN Io n 04-01-2023 Tropinin I.cardiac panel High sensitivity method 4.2 pg/mL Normal 0.0-54.0 [facility] Comment on above: Order Comment: Speci men Type: BLOOD SPECIMEN Ordering Facility: [facility] Address: [address] [place] [address] Result Comment: This assay uses different antibodies than our current assay, and assays, even by the same hide measuring machine operator may recognize different regions of the antibody and cannot be used interchangeably. Expect results of this assay to run higher than the previous assay. Performed By: #### H FOSTER #### [facility] CLIA [id number] [address] [place] [address] [place] HISTORY PHYSICALon 3 HISTORY PHYSICAL HNO ID: [id number] Author: Feroz Dasilva MD Service: Hospital Medicine Author Type: Physician Type: HANDP Filed: 04/01/2023 10:35 PM Note Text: HISTORY AND PHYSICAL EXAMINATION SERVICE DATE: 04/01/2023 SERVICE TIME: 9:31 PM PRIMARY CARE PHYSICIAN: Kezia Dubose MD Subjective CHIEF COMPLAINT: Left arm weakness HPI: Patient states that he had sudden left arm weakness after going for a walk at approximately noon on April 01. Denies ever having any previous strokes or TIAs. States that he did have difficulty with propagation worker and buttoning his shirt and feeling as though his left arm was not there. Patient returned back home took a nap and woke up with symptoms that were mildly improving but still present and therefore came to the emergency department. Patient states that he has a history of BPH and hypertension and is usually compliant with all of his medications but did not take them today. Patient estimates he is returned back to approximately 75% of baseline. Discussed that CTA was negative but we will obtain an MRI and admit the patient for suspected TIA at this time. Patient and family were agreeable with plan. FUNCTIONAL STATUS: Independent PAST MEDICAL HISTORY Diagnosis Date Abdominal aortic aneurysm without rupture (HCC) 03/11/[address] Singh Benign prostatic hyperplasia with urinary hesitancy 12/13/2019 Had 10h of urinary retention, Voided x2 since chang removed but small volume Begun on flomax 12/11 Obtain postvoid residual to ensure no overflow incontinence Bilateral carotid artery stenosis 08/20/2018 Celiac disease 08/31/2010 Dermatophytosis of nail Diarrhea Disorders of bursae and tendons in shoulder region, unspecified 09/08/2013 Diverticulosis of large intestine Elevated hemoglobin A1c 02/10/2021 Hypertension, essential 02/02/2018 Internal hemorrhoids without mention of complication 05/05/2008 Medicare annual wellness visit, subsequent 02/08/2017 Medicare part B: 09/25/2012 last done: 03/27/2019 Mixed hyperlipidemia 11/30/2010 Neck pain, chronic 04/25/2017 Peripheral vascular disease (HCC) 02/25/2016 Stage 3a chronic kidney disease (HCC) 02/10/2021 Synovial cyst of right popliteal space 02/14/2022 Vitamin D deficiency 04/06/2009 PAST SURGICAL HISTORY Procedure Laterality Date ABD AORTA ANEURYSM REPAIR 11/2019 COLONOSCOPY FLX DX W/COLLJ SPEC WHEN PFRMD 03/23/2004 Colonoscopy COLONOSCOPY FLX DX W/COLLJ SPEC WHEN PFRMD 05/05/2008 Colonoscopy, repeat 10 yrs PAST SURGICAL HISTORY OF 04/14/2004 excision of lesion neck PAST SURGICAL HISTORY OF 02/21/1992 lesion removed from rectum FAMILY HISTORY Problem Relation Age of Onset Stroke Father other (lupus) Sister Diabetes Brother Diabetes Brother Social History Tobacco Use Smoking status: Never Smokeless tobacco: Never Substance Use Topics Alcohol use: No Drug use: Never (Not in a hospital admission) ALLERGIES Allergen Reactions Gluten Diarrhea Upset stomach Gas build up COMPLETE REVIEW OF SYSTEMS: All other systems were reviewed and are negative Physical Exam Constitutional: General: He is not in acute distress. Appearance: Normal appearance. He is not ill-appearing or toxic-appearing. HENT: Head: Normocephalic and atraumatic. Nose: Nose normal. Eyes: General: No scleral icterus. Extraocular Movements: Extraocular movements intact. Cardiovascular: Rate and Rhythm: Normal rate and regular rhythm. Heart sounds: Murmur heard. Pulmonary: Effort: Pulmonary effort is normal. Breath sounds: Normal breath sounds. Musculoskeletal: Cervical back: Normal range of motion. Skin: General: Skin is warm. Neurological: Mental Status: He is alert and oriented to person, place, and time. Mental status is at baseline. Cranial Nerves: No cranial nerve deficit. Comments: Slight apraxia of L hand BP 188/84 Pulse 68 Temp (Src) 97.9 (Oral) Resp 18 Ht 5' 8 (1.73m) Wt 150 lb (68.0kg) SpO2 97% BMI 22.81 kg/(m2). O2 Therapy: Room Air DATA: No intake or output data in the 24 hours ending 04/01/23 2131 Current Facility-Administered Medications Medication Dose Route Frequency Provider Last Rate Last Admin iv contrast (radiology procedure) INTRAVENOUS DIRECTED PRN Olaf Ramirez MD aspirin 324 mg chewable tab(s) 324 mg ORAL ONCE Olaf Ramirez MD perflutren lipid microspheres 1.3 mL in NaCl (PF) 0.9% 10 mL injection (DEFINITY) INTRAVENOUS DIRECTED PRN Walter Nuñez MD sodium chloride 0.9 % (flush) 10 mL (BD POSIFLUSH) 10 mL INTRAVENOUS DIRECTED PRN Walter Nuñez MD Current Outpatient Medications Medication Sig Dispense Refill amLODIPine (NORVASC) 5 mg tablet Take 1 tablet by mouth once daily. 90 tablet 3 budesonide, enteric coated (ENTOCORT EC) 3 mg 24 hr capsule Take 6 mg by mouth as needed. Herbal Drugs cap Take 1 capsule by mouth once daily. BIOHM tamsulosin (FLOMAX) 0.4 mg Take 1 capsule by mouth (more content not included)... Normal [facility] HbA1c (Bld)on 04-01-2023 Average glucose Estimated from glycated hemoglobin (Bld) [Mass/Vol] 134 mg/dL Normal [facility] Comment on above: Order Comment: Shani graham Type: BLOOD SPECIMEN Ordering Facility: [facility] Address: [address] [place] [address] Result Comment: eAG: (Estimated average glucose) is a calculated value from HgbA1c and is life assurance representative of the average blood glucose level in the last 2-3 month period. Performed By: #### 5 7021-8, 21304-8 #### [facility] CLIA [id number] [address] [place] [address] [place] HbA1c (Bld) [Mass fraction] 6.3 % High 4.3-6.0 [facility] Comment on above: Order Comment: hSani graham Type: BLOOD SPECIMEN Ordering Facility: [facility] Address: [address] [place] [address] Result Comment: [place] Diabetes Association guidelines indicate that patients with HgbA1c in the range 5.7-6.4% are at increased risk for development of diabetes, and intervention by lifestyle modification may be beneficial. HgbA1c greater or equal to 6.5% is considered diagnostic of diabetes. Performed By: #### 5 7021-8, 38856-7 #### [facility] CLIA [id number] [address] [place] [address] [place] Lipid 1996 panelon 3 Cholesterol [Mass/Vol] 146 mg/dL Normal 0-199 [facility] Comment on above: Order Comment: Speci men Type: BLOOD SPECIMEN Ordering Facility: [facility] Address: [address] [place] [address] Result Comment: <200 mg/dL, Desirable 200-239 mg/dL, Borderline high >239 mg/dL, High Performed By: #### 2 4323-8, 04508-5, 79377-8 #### [facility] CLIA [id number] [address] [place] [address] [place] Cholesterol in HDL [Mass/Vol] 40 mg/dL Low >40 [facility] Comment on above: Order Comment: Speci [facility] Type: BLOOD SPECIMEN Ordering Facility: [facility] Address: [address] [place] [address] Result Comment: 40-5 9 mg/dL, Acceptable >59 mg/dL, High: Negative risk factor for coronary heart disease <40 mg/dL, Low: Positive risk factor for coronary heart disease Performed By: #### 2 4323-8, , 45998-1 #### [facility] CLIA [id number] [address] [place] [address] Cholesterol in LDL [Mass/Vol] 96 mg/dL Normal 0-129 [facility] Comment on above: Order Comment: Speci men Type: BLOOD SPECIMEN Ordering Facility: [facility] Address: [address] [place] [address] Result Comment: <100 mg/dL, Optimal 100-129 mg/dL, Near optimal/above optimal 130-159 mg/dL, Borderline high 160-189 mg/dL, High >189 mg/dL, Very high Secondary prevention optimal LDL Cholesterol levels are recommended to be < 70 mg/dL Performed By: #### 2 4323-8, 08895-1, 13267-9 #### [facility] CLIA [id number] [address] [place] [address] [place] Cholesterol in LDL/Cholesterol in HDL [Mass ratio] 2.40 {ratio} Normal <2.54 [facility] Comment on above: Order Comment: Shani santos Type: BLOOD SPECIMEN Ordering Facility: [facility] Address: [address] [place] [address] Result Comment: Refe rence: 1. National Cholesterol Education Program ATP III Guideline At-A-Glance Quick Desk Reference: National Heart, Lung, and Blood [place]. National Institutes of Health. 2001: NIH Publication No. 01-3305. 2. An International Atherosclerosis Society position paper: global recommendations for the management of dyslipidemia: executive summary, Atherosclerosis. 2014: 232(2):410-413. Performed By: #### 2 4323-8, , #### [facility] CLIA [id number] [address] [place] [address] Cholesterol in VLDL [Mass/Vol] 10 mg/dL Normal <30 [facility] Comment on above: Order Comment: Shani santos Type: BLOOD SPECIMEN Ordering Facility: [facility] Address: [address] [place] [address] Performed By: #### 2 4323-8, , #### [facility] CLIA [id number] [address] [place] [address] Cholesterol non HDL [Mass/Vol] 106 mg/dL Normal <130 [facility] Comment on above: Order Comment: Jenajacki graham Type: BLOOD SPECIMEN Ordering Facility: [facility] Address: [address] [place] [address] Result Comment: <130 mg/dL, Optimal 130-159 mg/dL, Near optimal/above optimal 160-189 mg/dL, Borderline high 190-219 mg/dL, High >219 mg/dL, Very high Secondary prevention optimal non HDL Cholesterol levels are recommended to be <100 mg/dL Performed By: #### 2 4323-8, , 90062-4 #### [facility] CLIA [id number] [address] [place], [place] [id number] [facility] [place] Cholesterol.total/Cho lesterol in HDL [Mass ratio] 3.65 {ratio} Normal <5.10 [facility] Comment on above: Order Comment: Speci men Type: BLOOD SPECIMEN Ordering Facility: [facility] Address: [address] [place] [address] Performed By: #### 2 4323-8, , #### [facility] CLIA [id number] [address] [place] [address] [place] FASTING TIME Normal [facility] Comment on above: Order Comment: Speci men Type: BLOOD SPECIMEN Ordering Facility: [facility] Address: [address] [place] [address] Result Comment: Unkn own Performed By: #### 2 4323-8, , #### [facility] CLIA [id number] [address] [place] [address] [place] Triglyceride [Mass/Vol] 50 mg/dL Normal 30-149 [facility] Comment on above: Order Comment: Speci men Type: BLOOD SPECIMEN Ordering Facility: [facility] Address: [address] [place] [address] Result Comment: <150 mg/dL, Normal 150-199 mg/dL, Borderline high 200-499 mg/dL, High >499 mg/dL, Very high Patients receiving either N-Acetylcysteine (NAC) or Metamizole prior to venipuncture, may have falsely depressed results. Performed By: #### 2 4323-8, , #### [facility] CLIA [id number] [address] [place] [address] [place] Magnesium SerPl-mCncon 04-01 Magnesium [Mass/Vol] 1.9 mg/dL Normal 1.6-2.6 [facility] Comment on above: Order Comment: Speci men Type: BLOOD SPECIMEN Ordering Facility: [facility] Address: [address] [place] [address] Performed By: #### 2 4323-8, , #### [facility] CLIA [id number] [address] [place], [place] [id number] [place] PT panel Coag (PPP)on 2022 INR Coag (PPP) [Relative time] 1.0 {INR} Normal 0.9-1.3 [facility] Comment on above: Order Comment: Shani graham Type: BLOOD SPECIMEN Ordering Facility: [facility] Address: [address] [place], [place] [address] Result Comment: Arthur min K Antagonist (VKA) Therapeutic Range: INR 2 to 3 (Target INR of 2.5) Note: For patients treated with VKA drugs, such as warfarin, the [employer] 2012 Guideline recommends a therapeutic INR range of 2 to 3 (target INR of 2.5). This recommendation includes high-risk patients with antiphospholipid syndrome with previous arterial or venous thromboembolism, current-generation mechanical or bioprosthetic aortic heart valve replacement. Note: Patients with mechanical aortic valve replacement and additional risk factors for thromboembolic events (atrial fibrillation, previous thromboembolism, LV dysfunction, hypercoagulable conditions) or an older generation mechanical AVR (i.e., ball in-Cage) or any mechanical MVR should have a INR therapeutic range of 2.5 to 3.5 (target INR of 3). Tremaine GH, et al. Chest 2012, 141:7S-47S Jorge RA, et al. [facility] 2017, 70: 252-289 Performed By: #### 3 4528-0 #### [facility] CLIA [id number] [address] [place] [address] [place] PT Coag (PPP) [Time] 10.0 s Normal 9.7-13.0 [facility] Comment on above: Order Comment: Shani graham Type: BLOOD SPECIMEN Ordering Facility: [facility] Address: [place] [address] Performed By: #### 3 4528-0 #### [facility] CLIA [id number] [address] [place], [place] [id number] [place] CBC W Auto Differential pane l (Bld)on 08-08-2022 Basophils (Bld) [#/Vol] 0.03 10*3/uL <0.11 k/uL [facility] Basophils/100 WBC (Bld) 0.5 % [facility] Differential cell count method Nom (Bld) Auto [facility] Eosinophils (Bld) [#/Vol] 0.30 10*3/uL <0.46 k/uL [facility] Eosinophils/100 WBC (Bld) 5.5 % [facility] Erythrocyte distribution width (RBC) [Ratio] 14.3 % 11.5 - 15.0 % [facility] Hematocrit (Bld) [Volume fraction] 43.8 % 39.0 - 51.0 % [facility] Hemoglobin (Bld) [Mass/Vol] 14.2 g/dL 13.0 - 17.0 g/dL [facility] Immature granulocytes (Bld) [#/Vol] <0.10 k/uL [facility] Immature granulocytes/100 WBC (Bld) 0.2 % [facility] Lymphocytes (Bld) [#/Vol] 1.60 10*3/uL 1.00 - 4.00 k/uL [facility] Lymphocytes/100 WBC (Bld) 29.1 % [facility] MCH (RBC) [Entitic mass] 29.7 pg 26.0 - 34.0 pg [facility] MCHC (RBC) [Mass/Vol] 32.4 g/dL 30.5 - 36.0 g/dL [facility] MCV (RBC) [Entitic vol] 91.6 fL 80.0 - 100.0 fL [facility] Monocytes (Bld) [#/Vol] 0.56 10*3/uL <0.87 k/uL [facility] Monocytes/100 WBC (Bld) 10.2 % [facility] Neutrophils (Bld) [#/Vol] 2.99 10*3/uL 1.45 - 7.50 k/uL [facility] Neutrophils/100 WBC (Bld) 54.5 % [facility] Nucleated RBC (Bld) [#/Vol] <0.01 k/uL [facility] Nucleated RBC/100 WBC (Bld) [Ratio] 0.0 /100 WBC [facility] Platelet mean volume (Bld) [Entitic vol] 11.8 fL 9.0 - 12.7 fL [facility] Platelets (Bld) [#/Vol] 226 10*3/uL 150 - 400 k/uL [facility] RBC (Bld) [#/Vol] 4.78 10*6/uL 4.20 - 6.0 0 m/uL [facility] WBC (Bld) [#/Vol] 5.49 10*3/uL 3.70 - 11. 00 k/uL [facility] XR ABDOMEN 3V KUB W/OBLIQUES on 02-14-2022 [facility] CBC W Auto Differential pane l (Bld)on 01-28-2022 Abs Immature Gran <0.03 <0.10 k/uL [facility] Basophils (Bld) [#/Vol] 0.05 10*3/uL <0.11 k/uL [facility] Basophils/100 WBC (Bld) 0.7 % [facility] Differential cell count method Nom (Bld) Auto [facility] Eosinophils (Bld) [#/Vol] 0.75 10*3/uL High <0.46 k/uL [facility] Eosinophils/100 WBC (Bld) 10.9 % [facility] Erythrocyte distribution width (RBC) [Ratio] 14.3 % 11.5 - 15.0 % [facility] Hematocrit (Bld) [Volume fraction] 38.8 % Low 39.0 - 51.0 % [facility] Hemoglobin (Bld) [Mass/Vol] 12.5 g/dL Low 13.0 - 17.0 g/dL [facility] Immature Gran % 0.3 % [facility] Lymphocytes (Bld) [#/Vol] 1.64 10*3/uL 1.00 - 4.00 k/uL [facility] Lymphocytes/100 WBC (Bld) 23.8 % [facility] MCH (RBC) [Entitic mass] 29.9 pg 26.0 - 34.0 pg [facility] MCHC (RBC) [Mass/Vol] 32.2 g/dL 30.5 - 36.0 g/dL [facility] MCV (RBC) [Entitic vol] 92.8 fL 80.0 - 100.0 fL [facility] Monocytes (Bld) [#/Vol] 0.81 10*3/uL <0.87 k/uL [facility] Monocytes/100 WBC (Bld) 11.8 % [facility] Neutrophils (Bld) [#/Vol] 3.61 10*3/uL 1.45 - 7.50 k/uL [facility] Neutrophils/100 WBC (Bld) 52.5 % [facility] Nucleated RBC (Bld) [#/Vol] 10*3/uL <0.01 k/uL [facility] Nucleated RBC/100 WBC (Bld) [Ratio] 0.0 /100 WBC [facility] Platelet mean volume (Bld) [Entitic vol] 11.7 fL 9.0 - 12.7 fL [facility] Platelets (Bld) [#/Vol] 233 10*3/uL 150 - 400 k/uL [facility] RBC (Bld) [#/Vol] 4.18 10*6/uL Low 4.20 - 6.0 0 m/uL [facility] WBC (Bld) [#/Vol] 6.88 10*3/uL 3.70 - 11. 00 k/uL [facility] Comprehensive metabolic 2000 panelon 01-28-2022 Albumin [Mass/Vol] 3.8 g/dL Low 3.9 - 4.9 g/dL [facility] ALP [Catalytic activity/Vol] 69 U/L 38 - 113 U/L [facility] ALT [Catalytic activity/Vol] 14 U/L 10 - 54 U/L [facility] Anion gap [Moles/Vol] 12 mmol/L 9 - 18 mmol/L [facility] AST [Catalytic activity/Vol] 15 U/L 14 - 40 U/L [facility] Bilirubin [Mass/Vol] 0.5 mg/dL 0.2 - 1 .3 mg/dL [facility] Calcium [Mass/Vol] 9.0 mg/dL 8.5 - 10. 2 mg/dL [facility] Chloride [Moles/Vol] 103 mmol/L 97 - 10 5 mmol/L [facility] CO2 [Moles/Vol] 21 mmol/L Low 22 - 30 mmol/L [facility] Creatinine [Mass/Vol] 1.26 mg/dL High 0.73 - 1.22 mg/dL [facility] Estimated Glomerular Filtration Rate 56 mL/min/1.73m Low >=60 mL/min/1.73m [facility] Glucose [Mass/Vol] 131 mg/dL High 74 - 99 mg/dL [facility] Potassium [Moles/Vol] 4.7 mmol/L 3.7 - 5.1 mmol/L [facility] Protein [Mass/Vol] 6.8 g/dL 6.3 - 8.0 g/dL [facility] Sodium [Moles/Vol] 136 mmol/L 136 - 144 mmol/L [facility] Urea nitrogen [Mass/Vol] 22 mg/dL 9 - 24 mg/dL [facility] HGB A1Con 01-28-2022 Average glucose Estimated from glycated hemoglobin (Bld) [Mass/Vol] 128 mg/dL [facility] HbA1c (Bld) [Mass fraction] 6.1 % High 4.3 - 5.6 % [facility] VITAMIN B12 BLOODon 01-29-20 Cobalamin (Vitamin B12) [Mass/Vol] pg/mL High 232-1,245 pg/mL [facility] BMPon 05-14-2021 Anion gap [Moles/Vol] 3 mmol/L Low 5-16 [facility] Comment on above: Order Comment: Campu s: M Performed By: #### L [id number] #### [facility] [place] [address] Calcium [Mass/Vol] 8.2 mg/dL Low 8.5-10.5 [facility] Comment on above: Order Comment: Campu s: M Result Comment: NOTE NEW NORMAL RANGE DUE TO REAGENT CHANGE Performed By: #### L [id number] #### [facility] [place] [address] Chloride [Moles/Vol] 109 mmol/L High 98-107 [facility] Comment on above: Order Comment: Campu s: M Performed By: #### L [id number] #### [facility] [place] [address] CO2 [Moles/Vol] 28.0 mmol/L Normal 21-32 [facility] Comment on above: Order Comment: Campu s: M Performed By: #### L [id number] #### [facility] [address] [place] [address] Creatinine [Mass/Vol] 1.20 mg/dL Normal 0.5-1.4 [facility] Comment on above: Order Comment: Campu s: M Result Comment: NOTE NEW NORMAL RANGE DUE TO REAGENT CHANGE Patients receiving either N-Acetylcysteine (NAC) or Metamizole prior to venipuncture, may have falsely depressed results. Performed By: #### L [id number] #### [facility] [place] [address] Glucose [Mass/Vol] 102 mg/dL High 70-100 [facility] Comment on above: Order Comment: Campu s: M Result Comment: 70-1 00- Normal Fasting; 100-125 Impaired Fasting; greater than 126 on more than one result- Diabetes. ADA guidelines. Results may be falsely elevated after the administration of Sulfapyridine. Results may be falsely depressed after the administration of Sulfasalazine. Performed By: #### L [id number] #### [facility] [address] [place] [address] Potassium [Moles/Vol] 3.8 mmol/L Normal 3.5-5.1 [facility] Comment on above: Order Comment: Campu s: M Performed By: #### L [id number] #### [facility] [address] [place] [address] Sodium [Moles/Vol] 139 mmol/L Normal 136-145 [facility] Comment on above: Order Comment: Campu s: M Performed By: #### L [id number] #### [facility] [address] [place] [address] Urea nitrogen [Mass/Vol] 21 mg/dL Normal 7-26 [facility] Comment on above: Order Comment: Campu s: M Performed By: #### L [id number] #### [facility] [address] [place] [address] Urea nitrogen/Creatinine [Mass ratio] 17 mg/mg Normal 15-24 [facility] Comment on above: Order Comment: Campu s: M Performed By: #### L [id number] #### [facility] [address] [place] [address] CBC W/DIFFon 05-14-2021 BAND ABS 0.15 K/CU MM Normal [facility] Comment on above: Order Comment: Campu s: M Performed By: #### L [id number] #### [facility] [address] [place] [address] Band form neutrophils/100 WBC (Bld) 2.0 % Normal 0-7 [facility] Comment on above: Order Comment: Campu s: M Performed By: #### L [id number] #### [facility] [address] [place] [address] EOS ABS 0.69 K/CU MM High 0-0.5 [facility] Comment on above: Order Comment: Campu s: M Performed By: #### L [id number] #### [facility] [address] [place] [address] Eosinophils/100 WBC (Bld) 9.0 % High 0-5 [facility] Comment on above: Order Comment: Campu s: M Performed By: #### L [id number] #### [facility] [address] [place] [address] LYMPH ABS 2.16 K/CU MM Normal 0.9-4.4 [facility] Comment on above: Order Comment: Campu s: M Performed By: #### L [id number] #### [facility] [address] [place] [address] Lymphocytes/100 WBC (Bld) 28.0 % Normal [facility] Comment on above: Order Comment: Campu s: M Performed By: #### L [id number] #### [facility] [address] [place] [address] MONO ABS 0.77 K/CU MM Normal 0.1-1.1 [facility] Comment on above: Order Comment: Campu s: M Performed By: #### L [id number] #### [facility] [address] [place] [address] Monocytes/100 WBC (Bld) 10.0 % Normal 2-10 [facility] Comment on above: Order Comment: Campu s: M Performed By: #### L [id number] #### [facility] [address] [place] [address] NC/NC NORMOCYTIC Normal [facility] Comment on above: Order Comment: Campu s: M Performed By: #### L [id number] #### [facility] [address] [place] [address] NEUTROPHIL ABS 3.93 K/CU MM Normal 2.0-8.3 [facility] Comment on above: Order Comment: Campu s: M Performed By: #### L [id number] #### [facility] [address] [place] [address] Neutrophils/100 WBC (Bld) 51.0 % Normal 45-75 [facility] Comment on above: Order Comment: Campu s: M Performed By: #### L [id number] #### [facility] [address] [place] [address] PLT EST ADEQUATE Normal [facility] Comment on above: Order Comment: Campu s: M Performed By: #### L [id number] #### [facility] [address] [place] [address] Erythrocyte distribution width (RBC) [Ratio] 14.3 % Normal 11-14.5 [facility] Comment on above: Order Comment: Campu s: M Performed By: #### L [id number] #### [facility] [address] [place] [address] Hematocrit (Bld) [Volume fraction] 33.0 % Low 41.0-53.0 [facility] Comment on above: Order Comment: Campu s: M Performed By: #### L [id number] #### [facility] [address] [place] [address] Hemoglobin (Bld) [Mass/Vol] 10.7 g/dL Low 13.5-17.5 [facility] Comment on above: Order Comment: Campu s: M Performed By: #### L [id number] #### [facility] [address] [place] [address] MCHC (RBC) [Mass/Vol] 32.4 g/dL Normal 32.0-36.0 [facility] Comment on above: Order Comment: Campu s: M Performed By: #### L [id number] #### [facility] [address] [place] [address] MCV (RBC) [Entitic vol] 94.6 fL Normal 80.0-99.0 [facility] Comment on above: Order Comment: Campu s: M Performed By: #### L [id number] #### [facility] [address] [place] [address] Nucleated RBC/100 WBC (Bld) [Ratio] 0.0 % Normal Less than 1 [facility] Comment on above: Order Comment: Campu s: M Performed By: #### L [id number] #### [facility] [address] [place] [address] Platelet mean volume (Bld) [Entitic vol] 10.8 fL Normal 9.4-12.4 [facility] Comment on above: Order Comment: Campu s: M Performed By: #### L [id number] #### [facility] [address] [place] [address] PLT 172 K/CU MM Normal 150-450 [facility] Comment on above: Order Comment: Campu s: M Performed By: #### L [id number] #### [facility] [address] [place] [address] RBC 3.49 M/CU MM Low 4.50-6.00 [facility] Comment on above: Order Comment: Campu s: M Performed By: #### L [id number] #### [facility] [address] [place], [place] [id number] WBC 7.7 K/CUMM Normal 4.5-11.0 [facility] Comment on above: Order Comment: Campu s: M Performed By: #### L [id number] #### [facility] [address] [place] [address] DISCH.SUMon 05-14-2021 DISCH.[facility] Patient Name: SERGO ROSAS [address] [place] [address] Date of : [address] [address] Unit Number: [id number] Discharge Summary Patient Status: DIS Yaya Attending Doctor: Jairo Biswas MD Service Date: 05/14/21 1137 Discharge Summary Admit Date Admission Date Time: 05/11/21 2300 Anticipated Discharge Date 05/14/21 Final Dx/Problem List 1. Care plan discussed with patient Intractable nausea vomiting diarrhea hypomagnesemia Chronic kidney disease stage III BPH GERD Vasovagal and dehydration On Luna 11:36a May 13, 2021 JAIRO BISWAS wrote Plan *Advance diet to regular, if patient starts eating more than 50% of his meal IV fluid be discontinued. At this time continue IV fluid with lower rate 75 mL an hour, obtain 2D echo. *Orthostatic vital signs checked by nursing verbal report they are normal. *Blood work was noted today, check CBC BMP for tomorrow *Continue chronic home medications monitor vital signs *PT/OT evaluation treat, case management for discharge planning *DVT prophylaxis heparin subcutaneous *Discussed the case with the patient his and his daughter as well as nursing staff. On Mon 4:29p May 12, 2021 JAIRO BISWAS wrote Plan *Advance diet as tolerated since patient is became asymptomatic *replace magnesium *Check CBC BMP magnesium for tomorrow *Continue chronic home medications monitor vital signs Patient Problems Reviewed: Yes Chief Complaint/HPI Intractable nausea vomiting diarrhea Reason for Admission Nausea vomiting and diarrhea Hospital Course Patient was admitted to the hospital because of intractable nausea vomiting diarrhea dehydration vasovagal syncope, patient was placed in the hospital, he was given IV fluid hydration, stool studies negative, C. difficile negative, patient 2D echo unremarkable, patient was introduced to diet and advance as tolerated, patient today was seen examined no nausea no vomiting no chest pain no fever chills eating 100% of his meal he still have mild loose stool. Patient in agreement and feels comfortable to go home today, his and his daughter are comfortable with that to, patient will be discharged home today in stable condition follow-up with his PCP in 1 week and also is on GI specialist as outpatient. Patient was advised to come back to the hospital if he experiences any more concerns or worsening symptoms. Vital Signs Vital Signs (Last) Result Date Time Pulse Ox 96 05/13 2325 B/P 119/56 05/13 2325 Temp 98.6 05/13 2325 Pulse 59 05/13 2325 Resp 17 05/13 2325 O2 Delivery ROOM AIR 05/13 1102 Pertinent Physical Findings Physical Exam: General: Patient is alert and oriented x3 and is in no acute respiratory distress. HEENT no eye congestion no ear discharge. Neck is supple no JVD. Lungs: Clear to auscultation, no wheezing, rales, or rhonchi. Cardiac: S1-S2 within normal limits Abdomen: Soft, nontender, nondistended. Extremities: No cyanosis Skin: No rashes or breakdown. Neurologic: Cranial nerves from II-XII intact grossly. Psych normal affect. Lymphatic system, no submandibular or anterior cervical lymphadenopathy. Labs/Imaging Lab 72hr (CBC/BMP Marco) 05/14/21 0455: [Embedded Image Not Available] Anion Gap LESS THAN 3 L, Est GFR ( Amer) Greater than 60, Est GFR (Non-Af Amer) 58, BUN/Creatinine Ratio 17, Glucose 102 H, Total Calcium 8.2 L, RBC 3.49 L, MCV 94.6, MCHC 32.4, RDW 14.3, MPV 10.8, Seg Neutrophils % 51.0, Band Neutrophils % 2.0, Lymphocytes % 28.0, Monocytes % 10.0, Eosinophils % 9.0 H, Neutrophils # 3.93, Band Neutrophils # 0.15, Lymphocytes # 2.16, Monocytes # 0.77, Eosinophils # 0.69 H, Nucleated RBCs 0.0, Platelet Estimate ADEQUATE, Normocytic RBCs NORMOCYTIC 05/13/21 0949: [Embedded Image Not Available] Anion Gap 5, Est GFR ( Amer) Greater than 60, Est GFR (Non-Af Amer) 55, BUN/ Creatinine Ratio 22, Glucose 96, Total Calcium 8.5, Magnesium 2.0, RBC 4.31 L, MCV 92.1, MCHC 33.0, RDW 14.4, MPV 11.4, Nucleated RBCs 0.0 05/12/21 1428: Troponin I 28.4 05/12/21 0715: Troponin I 33.5 05/12/21 0715: Phosphorus 4.70, Magnesium 1.5 L 05/12/21 0715: Hemoglobin A1c 5.8 05/12/21 0715: [Embedded Image Not Available] Anion Gap 8, Est GFR ( Amer) 46, Est GFR (Non-Af Amer) 38, BUN/Creatinine Ratio 23, Glucose 109 H, Total Calcium 9.0, Total Bilirubin 0.60, AST 10, ALT 9 L, Alkaline Phosphatase 69, Serum Total Protein 6.0, Albumin 3.0 L, Globulin 3.0, Albumin/Globulin Ratio 1.0, RBC 4.55, MCV 93.8, MCHC 32.6, RDW 14.2, MPV 10.8, Immature Gran % (Auto) 0.3, Abs Immat Gran (auto) 0.00, Seg Neutrophils % 62.1, Lymphocytes % 21.2, Monocytes % 9.5, Eosinophils % 6.8 H, Basophils % 0.1, Neutrophils # 6.60, Lymphocytes # 2.20, Monocytes # 1.00, Eosinophils # 0.70 H, Basophils # 0.00, Nucleated RBCs 0.0, Atypic/Reactive Lymphs PRESENT, Platelet Estima (more content not included)... Normal [facility] [place] GFR ESTon 05-14-2021 IF AMER Greater than 60 Normal [facility] Comment on above: Order Comment: Campu s: M Performed By: #### L [id number] #### [facility] [address] [place] [address] IF non-AFR AMER 58 Normal [facility] Comment on above: Order Comment: Campu s: M Performed By: #### L [id number] #### [facility] [address] [place] [address] OTARon 05-14-2021 OT Assessment Report Normal [facility] PTARon 05-14-2021 PT Assessment Report Normal [facility] BMPon 05-13-2021 Anion gap [Moles/Vol] 5 mmol/L Normal 5-16 [facility] Comment on above: Order Comment: Campu s: M Performed By: #### L [id number] #### [facility] [address] [place] [address] Calcium [Mass/Vol] 8.5 mg/dL Normal 8.5-10.5 [facility] Comment on above: Order Comment: Campu s: M Result Comment: NOTE NEW NORMAL RANGE DUE TO REAGENT CHANGE Performed By: #### L [id number] #### [facility] [address] [place] [address] Chloride [Moles/Vol] 106 mmol/L Normal 98-107 [facility] Comment on above: Order Comment: Campu s: M Performed By: #### L [id number] #### [facility] [place] [address] CO2 [Moles/Vol] 27.0 mmol/L Normal 21-32 [facility] Comment on above: Order Comment: Campu s: M Performed By: #### L [id number] #### [facility] [place] [address] Creatinine [Mass/Vol] 1.25 mg/dL Normal 0.5-1.4 [facility] Comment on above: Order Comment: Campu s: M Result Comment: NOTE NEW NORMAL RANGE DUE TO REAGENT CHANGE Patients receiving either N-Acetylcysteine (NAC) or Metamizole prior to venipuncture, may have falsely depressed results. Performed By: #### L [id number] #### [facility] [address] [place] [address] Glucose [Mass/Vol] 96 mg/dL Normal 70-100 [facility] Comment on above: Order Comment: Campu s: M Result Comment: 70-1 00- Normal Fasting; 100-125 Impaired Fasting; greater than 126 on more than one result- Diabetes. ADA guidelines. Results may be falsely elevated after the administration of Sulfapyridine. Results may be falsely depressed after the administration of Sulfasalazine. Performed By: #### L 550.45056 #### [facility] [address] [place] [address] Potassium [Moles/Vol] 3.9 mmol/L Normal 3.5-5.1 [facility] Comment on above: Order Comment: Campu s: M Result Comment: Slig ht Hemolysis, Result may be affected. Performed By: #### L 550.74678 #### [facility] [place] [address] Sodium [Moles/Vol] 138 mmol/L Normal 136-145 [facility] Comment on above: Order Comment: Campu s: M Performed By: #### L 550.60123 #### [facility] [place] [address] Urea nitrogen [Mass/Vol] 28 mg/dL High 7-26 [facility] Comment on above: Order Comment: Campu s: M Performed By: #### L [id number] #### [facility] [place] [address] Urea nitrogen/Creatinine [Mass ratio] 22 mg/mg Normal 15-24 [facility] Comment on above: Order Comment: Campu s: M Performed By: #### L [id number] #### [facility] [address] [place], [place] [id number] CBCon 05-13-2021 Erythrocyte distribution width (RBC) [Ratio] 14.4 % Normal 11-14.5 [facility] Comment on above: Order Comment: Campu s: M Performed By: #### L 500.12129, [id number] #### [facility] [address] [place] [address] Hematocrit (Bld) [Volume fraction] 39.7 % Low 41.0-53.0 [facility] Comment on above: Order Comment: Campu s: M Performed By: #### L 500.56414, L500.05176 #### [facility] [address] [place] [address] Hemoglobin (Bld) [Mass/Vol] 13.1 g/dL Low 13.5-17.5 [facility] Comment on above: Order Comment: Campu s: M Performed By: #### L 500.76045, L500.96677 #### [facility] [address] [place] [address] 36225 MCHC (RBC) [Mass/Vol] 33.0 g/dL Normal 32.0-36.0 [facility] Comment on above: Order Comment: Campu s: M Performed By: #### L 500.22402, L500.40300 #### [facility] [address] [place], [place] [id number] MCV (RBC) [Entitic vol] 92.1 fL Normal 80.0-99.0 [facility] Comment on above: Order Comment: Campu s: M Performed By: #### L 500.70307, L500.80607 #### [facility] [address] [place] [address] 68763 Nucleated RBC/100 WBC (Bld) [Ratio] 0.0 % Normal Less than 1 [facility] Comment on above: Order Comment: Campu s: M Performed By: #### L 500.98380, L500.34907 #### [facility] [address] [place] [address] 57478 Platelet mean volume (Bld) [Entitic vol] 11.4 fL Normal 9.4-12.4 [facility] Comment on above: Order Comment: Campu s: M Performed By: #### L 500.23675, L500.59014 #### [facility] [address] [place] [address] 45280 PLT 186 K/CU MM Normal 150-450 [facility] Comment on above: Order Comment: Campu s: M Performed By: #### L 500.99595, L500.92034 #### [facility] [address] [place], [place] [address] RBC 4.31 M/CU MM Low 4.50-6.00 [facility] Comment on above: Order Comment: Campu s: M Performed By: #### L 500.63122, L500.87670 #### [facility] [address] [place] [address] 67573 WBC 8.1 K/CUMM Normal 4.5-11.0 [facility] Comment on above: Order Comment: Campu s: M Performed By: #### L 500.23337, L500.36561 #### [facility] [address] [place], [place] [id number] GFR ESTon 05-13-2021 IF AMER Greater than 60 Normal [facility] Comment on above: Order Comment: Campu s: M Performed By: #### L 550.33234 #### [facility] [address] [place], [place] [id number] IF non-AFR AMER 55 Normal [facility] Comment on above: Order Comment: Campu s: M Performed By: #### L 550.24962 #### [facility] [address] [place] [address] 11446 MAGNESIUMon 05-13-2021 Magnesium [Mass/Vol] 2.0 mg/dL Normal 1.6-2.6 [facility] Comment on above: Order Comment: Campu s: M Performed By: #### L 550.67323 #### [facility] [address] [place] [address] 43887 PROG IMSon 05-13-2021 PROG [facility] Patient Name: HEADINGS,SERGO Suárez [address] [place] [address] Date of : [address] [place] [address] Unit Number: [id number] Progress Note-Hospitalist Patient Status: ADM Yaya Attending Doctor: Keyonna Welch MD Service Date: 05/13/21 1132 Chief Complaint Chief Complaint Nausea vomiting Subjective S: (2 ROS minimum) Patient still have loose stool, denied having chest pain shortness breath fever chills. Patient still on clear liquid diet, he indicated that when he was vomiting at home he passed out on the stool because he was dehydrated. Objective (ROS) Nursing Vitals Vital Signs (Last) Result Date Time Pulse Ox 95 05/13 1102 O2 Delivery ROOM AIR 05/13 1102 Temp 98.1 05/13 1102 Pulse 57 05/13 1102 Resp 16 05/13 1102 B/P 127/53 05/13 1030 Physical Exam: General: Patient is more awake and alert and is in no acute respiratory distress. HEENT no eye congestion no ear discharge. Neck is supple no JVD. Lungs: Clear to auscultation, no wheezing, rales, or rhonchi. Cardiac: S1-S2 within normal limits Abdomen: Soft, nontender, nondistended. Extremities: No cyanosis Skin: No rashes or breakdown. Neurologic: Cranial nerves from II-XII intact grossly. Psych normal affect. Lymphatic system, no submandibular or anterior cervical lymphadenopathy. Diagnostic Data: Lab 24hr (CBC/BMP Fishbone) 05/13/21 0949: [Embedded Image Not Available] Anion Gap 5, Est GFR ( Amer) Greater than 60, Est GFR (Non-Af Amer) 55, BUN/ Creatinine Ratio 22, Glucose 96, Total Calcium 8.5, Magnesium 2.0, RBC 4.31 L, MCV 92.1, MCHC 33.0, RDW 14.4, MPV 11.4, Nucleated RBCs 0.0 05/12/21 1428: Troponin I 28.4 Assessment and Plan Conclusion 1. Care plan discussed with patient Intractable nausea vomiting diarrhea hypomagnesemia Chronic kidney disease stage III BPH GERD Plan *Advance diet to regular, if patient starts eating more than 50% of his meal IV fluid be discontinued. At this time continue IV fluid with lower rate 75 mL an hour, obtain 2D echo. *Orthostatic vital signs checked by nursing verbal report they are normal. *Blood work was noted today, check CBC BMP for tomorrow *Continue chronic home medications monitor vital signs *PT/OT evaluation treat, case management for discharge planning *DVT prophylaxis heparin subcutaneous *Discussed the case with the patient his and his daughter as well as nursing staff. On Mon 4:29p May 12, 2021 JAIRO BISWAS wrote Plan *Advance diet as tolerated since patient is became asymptomatic *replace magnesium *Check CBC BMP magnesium for tomorrow *Continue chronic home medications monitor vital signs Disclaimer This dictation was created using voice recognition software. Phonetic and/or minor grammatical errors may exist. eSign Date and Time Jairo Biswas MD Verified/Reviewed by 05/13/21 1136 Normal [facility] Progress Note-Hospitalist Normal [facility] BMPon 05-12-2021 Anion gap [Moles/Vol] 7 mmol/L Normal 5-16 [facility] Comment on above: Order Comment: Campu s: M Performed By: #### L 550.95744 #### [facility] [place] [address] Calcium [Mass/Vol] 9.9 mg/dL Normal 8.5-10.5 [facility] Comment on above: Order Comment: Campu s: M Result Comment: NOTE NEW NORMAL RANGE DUE TO REAGENT CHANGE Performed By: #### L 550.58687 #### [facility] [address] [place] [address] Chloride [Moles/Vol] 97 mmol/L Low 98-107 [facility] Comment on above: Order Comment: Campu s: M Performed By: #### L 550.66741 #### [facility] [address] [place] [address] CO2 [Moles/Vol] 31.0 mmol/L Normal 21-32 [facility] Comment on above: Order Comment: Campu s: M Performed By: #### L 550.43365 #### [facility] [address] [place] [address] 25765 Creatinine [Mass/Vol] 1.76 mg/dL High 0.5-1.4 [facility] Comment on above: Order Comment: Campu s: M Result Comment: NOTE NEW NORMAL RANGE DUE TO REAGENT CHANGE Patients receiving either N-Acetylcysteine (NAC) or Metamizole prior to venipuncture, may have falsely depressed results. Performed By: #### L 550.83439 #### [facility] [address] [place] [address]1776 Glucose [Mass/Vol] 142 mg/dL High 70-100 [facility] Comment on above: Order Comment: Campu s: M Result Comment: 70-1 00- Normal Fasting; 100-125 Impaired Fasting; greater than 126 on more than one result- Diabetes. ADA guidelines. Results may be falsely elevated after the administration of Sulfapyridine. Results may be falsely depressed after the administration of Sulfasalazine. Performed By: #### L 550.11952 #### [facility] [address] [place] [address] 61396 Potassium [Moles/Vol] 4.2 mmol/L Normal 3.5-5.1 [facility] Comment on above: Order Comment: Campu s: M Result Comment: Slig ht Hemolysis, Result may be affected. Performed By: #### L 550.25171 #### [facility] [address] [place] [address] 77645 Sodium [Moles/Vol] 135 mmol/L Low 136-145 [facility] Comment on above: Order Comment: Campu s: M Performed By: #### L 550.51849 #### [facility] [address] [place] [address] Urea nitrogen [Mass/Vol] 33 mg/dL High 7-26 [facility] Comment on above: Order Comment: Campu s: M Performed By: #### L 550.90726 #### [facility] [address] [place] [address] Urea nitrogen/Creatinine [Mass ratio] 19 mg/mg Normal 15-24 [facility] Comment on above: Order Comment: Campu s: M Performed By: #### L 550.35233 #### [facility] [address] [place] [address] CBC W/DIFFon 05-12-2021 BASO ABS 0.00 K/CU MM Normal 0-0.2 [facility] Comment on above: Order Comment: Campu s: M Performed By: #### L 550.56894 #### [facility] [address] [place] [address] Basophils/100 WBC (Bld) 0.1 % Normal 0-2 [facility] Comment on above: Order Comment: Campu s: M Performed By: #### L 550.67814 #### [facility] [address] [place] [address] EOS ABS 0.70 K/CU MM High 0-0.5 [facility] Comment on above: Order Comment: Campu s: M Performed By: #### L 550.06363 #### [facility] [address] [place], [place] [address] Eosinophils/100 WBC (Bld) 6.8 % High 0-5 [facility] Comment on above: Order Comment: Campu s: M Performed By: #### L 550.25740 #### [facility] [address] [place] [address] IMMATR GRAN ABS 0.00 K/CU MM Normal Less than 2 [facility] Comment on above: Order Comment: Campu s: M Performed By: #### L 550.36956 #### [facility] [address] [place] [address] IMMATURE GRAN % 0.3 % Normal Less than 2 [facility] Comment on above: Order Comment: Campu s: M Performed By: #### L 550.77326 #### [facility] [address] [place] [address] LYMPH ABS 2.20 K/CU MM Normal 0.9-4.4 [facility] Comment on above: Order Comment: Campu s: M Performed By: #### L 550.19529 #### [facility] [address] [place] [address] Lymphocytes/100 WBC (Bld) 21.2 % Normal 20-40 [facility] Comment on above: Order Comment: Campu s: M Performed By: #### L 550.89208 #### [facility] [address] [place] [address] MONO ABS 1.00 K/CU MM Normal 0.1-1.1 [facility] Comment on above: Order Comment: Campu s: M Performed By: #### L 550.60326 #### [facility] [address] [place] [address] Monocytes/100 WBC (Bld) 9.5 % Normal 2-[facility] Comment on above: Order Comment: Campu s: M Performed By: #### L 550.64456 #### [facility] [address] [place] [address] NEUTROPHIL ABS 6.60 K/CU MM Normal 2.0-8.3 [facility] Comment on above: Order Comment: Campu s: M Performed By: #### L 550.95981 #### [facility] [place] [address] Neutrophils/100 WBC (Bld) 62.1 % Normal 45-75 [facility] Comment on above: Order Comment: Campu s: M Performed By: #### L 550.22910 #### [facility] [address] [place], [place] [address] PLT EST ADEQUATE Normal [facility] Comment on above: Order Comment: Campu s: M Performed By: #### L 550.60721 #### [facility] [address] [place], [place] [address] PLT MORPH LARGE FORMS NOTED Normal [facility] Comment on above: Order Comment: Campu s: M Performed By: #### L 550.59460 #### [facility] [address] [place] [address] POIK 1+ Normal [facility] Comment on above: Order Comment: Campu s: M Performed By: #### L 550.88484 #### [facility] [address] [place], [place] [address] POLY 1+ Normal [facility] Comment on above: Order Comment: Campu s: M Performed By: #### L 550.68153 #### [facility] [address] [place], [place] [address] RLYMPH PRESENT Normal [facility] Comment on above: Order Comment: Campu s: M Performed By: #### L 550.80096 #### [facility] [address] [place] [address] 54273 Erythrocyte distribution width (RBC) [Ratio] 14.2 % Normal 11-14.5 [facility] Comment on above: Order Comment: Campu s: M Performed By: #### L 550.41342 #### [facility] [address] [place], [place] [address] Hematocrit (Bld) [Volume fraction] 42.7 % Normal 41.0-53.0 [facility] Comment on above: Order Comment: Campu s: M Performed By: #### L 550.34978 #### [facility] [address] [place] [address] Hemoglobin (Bld) [Mass/Vol] 13.9 g/dL Normal 13.5-17.5 [facility] Comment on above: Order Comment: Campu s: M Performed By: #### L 550.30942 #### [facility] [address] [place] [address] MCHC (RBC) [Mass/Vol] 32.6 g/dL Normal 32.0-36.0 [facility] Comment on above: Order Comment: Campu s: M Performed By: #### L 550.04291 #### [facility] [address] [place] [address] MCV (RBC) [Entitic vol] 93.8 fL Normal 80.0-99.0 [facility] Comment on above: Order Comment: Campu s: M Performed By: #### L 550.70209 #### [facility] [address] [place] [address] Nucleated RBC/100 WBC (Bld) [Ratio] 0.0 % Normal Less than 1 [facility] Comment on above: Order Comment: Campu s: M Performed By: #### L 550.22573 #### [facility] [address] [place] [address] Platelet mean volume (Bld) [Entitic vol] 10.8 fL Normal 9.4-12.4 [facility] Comment on above: Order Comment: Campu s: M Performed By: #### L 550.74252 #### [facility] [place] [id number] PLT 234 K/CU MM Normal 150-450 [facility] [place] Comment on above: Order Comment: Campu s: M Performed By: #### L 550.21944 #### [facility] [address] [place] [address] RBC 4.55 M/CU MM Normal 4.50-6.00 [facility] Comment on above: Order Comment: Campu s: M Performed By: #### L 550.08877 #### [facility] [address] [place] [address] WBC 10.6 K/CUMM Normal 4.5-11.0 [facility] Comment on above: Order Comment: Campu s: M Performed By: #### L 550.99081 #### [facility] [address] [place] [address] BASO ABS 0.00 K/CU MM Normal 0-0.2 [facility] Comment on above: Order Comment: Campu s: M Performed By: #### L 550.93359 #### [facility] [address] [place] [address] Basophils/100 WBC (Bld) 0.2 % Normal 0-[facility] Comment on above: Order Comment: Campu s: M Performed By: #### L 550.65880 #### [facility] [address] [place], [place] [address] EOS ABS 0.50 K/CU MM Normal 0-0.5 [facility] Comment on above: Order Comment: Campu s: M Performed By: #### L 550.00085 #### [facility] [address] [place], [place] [address] Eosinophils/100 WBC (Bld) 4.2 % Normal [facility] Comment on above: Order Comment: Campu s: M Performed By: #### L 550.89181 #### [facility] [address] [place] [address] Erythrocyte distribution width (RBC) [Ratio] 14.2 % Normal 11-14.5 [facility] Comment on above: Order Comment: Campu s: M Performed By: #### L 550.75377 #### [facility] [address] [place] [address] Hematocrit (Bld) [Volume fraction] 49.3 % Normal 41.0-53.0 [facility] Comment on above: Order Comment: Campu s: M Performed By: #### L 550.96388 #### [facility] [address] [place] [address] Hemoglobin (Bld) [Mass/Vol] 16.0 g/dL Normal 13.5-17.5 [facility] Comment on above: Order Comment: Campu s: M Performed By: #### L 550.14872 #### [facility] [address] [place] [address] IMMATR GRAN ABS 0.00 K/CU MM Normal Less than 2 [facility] Comment on above: Order Comment: Campu s: M Performed By: #### L 550.59201 #### [facility] [address] [place] [address] IMMATURE GRAN % 0.3 % Normal Less than 2 [facility] Comment on above: Order Comment: Campu s: M Performed By: #### L 550.49783 #### [facility] [address] [place] [address] LYMPH ABS 1.20 K/CU MM Normal 0.9-4.4 [facility] Comment on above: Order Comment: Campu s: M Performed By: #### L 550.51152 #### [facility] [address] [place] [address] Lymphocytes/100 WBC (Bld) 9.7 % Low 20-40 [facility] Comment on above: Order Comment: Campu s: M Performed By: #### L 550.76307 #### [facility] [address] [place] [address] MCHC (RBC) [Mass/Vol] 32.5 g/dL Normal 32.0-36.0 [facility] Comment on above: Order Comment: Campu s: M Performed By: #### L 550.05102 #### [facility] [address] [place] [address] MCV (RBC) [Entitic vol] 93.9 fL Normal 80.0-99.0 [facility] Comment on above: Order Comment: Campu s: M Performed By: #### L 550.39315 #### [facility] [address] [place] [address] MONO ABS 0.80 K/CU MM Normal 0.1-1.1 [facility] Comment on above: Order Comment: Campu s: M Performed By: #### L 550.76554 #### [facility] [address] [place] [address] Monocytes/100 WBC (Bld) 6.3 % Normal 2-10 [facility] Comment on above: Order Comment: Campu s: M Performed By: #### L 550.57500 #### [facility] [address] [place], [place] [address] NEUTROPHIL ABS 10.00 K/CU MM High 2.0-8.3 [facility] Comment on above: Order Comment: Campu s: M Performed By: #### L 550.05303 #### [facility] [address] [place], [place] [address] Neutrophils/100 WBC (Bld) 79.3 % High 45-75 [facility] Comment on above: Order Comment: Campu s: M Performed By: #### L 550.30559 #### [facility] [address] [place] [address] Nucleated RBC/100 WBC (Bld) [Ratio] 0.0 % Normal Less than 1 [facility] Comment on above: Order Comment: Campu s: M Performed By: #### L 550.21174 #### [facility] [address] [place] [address] 82871 Platelet mean volume (Bld) [Entitic vol] 11.1 fL Normal 9.4-12.4 [facility] Comment on above: Order Comment: Campu s: M Performed By: #### L 550.00320 #### [facility] [address] [place] [address] 36147 PLT 241 K/CU MM Normal 150-450 [facility] Comment on above: Order Comment: Campu s: M Performed By: #### L 550.53617 #### [facility] [place] [address] RBC 5.25 M/CU MM Normal 4.50-6.00 [facility] Comment on above: Order Comment: Campu s: M Performed By: #### L 550.20327 #### [facility] [address] [place] [address] WBC 12.6 K/CUMM High 4.5-11.0 [facility] Comment on above: Order Comment: Campu s: M Performed By: #### L 550.23374 #### [facility] [address] [place] [address] CDIF PCRon 05-12-2021 CDIF PCR Negative Normal NEGATIVE [facility] Comment on above: Order Comment: Campu s: M Result Comment: This specimen is negative for the molecular prescence of the C.difficile Gene and warrants no further testing. It is recommended that no more than one stool specimen be tested for C.Difficile by PCR per week. Performed By: #### L 550.75400 #### [facility] [address] [place] [address]# [phone] [facility] [id number] IN [facility] ECHOCARDIOGRAM [address] [place] [address] Noninvasive Cardiac Diagnostics Adult Echocardiogram Report Name: SERGO ROSAS Study Date: 05/13/2021 01:43 PM BP: 108/70 mmHg Patient Location: [id number]: : 1935 Gender: Male Height: 68 in Age: 86 yrs Ethnicity: [place] Weight: 154 lb Accession No. [id number] No. [id number] Reason For Study: SYNCOPE BSA: 1.8 m2 History: Hypertension Interpretation Summary 1. Moderate to severe LVH with basal septal hypertrophy of 1.7 cm. 2. Normal LV systolic function with EF around 55 to 60% 3. Grade 2 diastolic dysfunction 4. Moderate to severe AI 5. Mild MR and TR 6. Mild to moderate PI 7. Moderate MAC 8. Mild left atrial dilatation. Left Ventricle: Moderate to severe LVH with the posterior wall of 1.5 and septum of 1.4 cm with a basal septal hypertrophy of 1.7 cm. Normal LV cavity size. The left ventricular ejection fraction is normal. Ejection Fraction = 55- 60%. Grade 2 diastolic dysfunction. The left ventricular wall motion is normal. The left ventricular apex is not well visualized. [facility] PATIENT NAME: SERGO ROSAS [address] [place] [address] Dr. Shearer MEDICAL REC #: [id number] [place] [address] ADMIT DATE: 05/11/21 DISCHARGE DATE: ATTENDING PHY: Keyonna Welch MD ECHOCARDIOGRAM REPORT Left Atrium/Atrial Septum: Borderline left atrial enlargement. Not well- visualized. Right Atrium: Right atrial size is normal. Right Ventricle: The right ventricle is mildly dilated. The right ventricular systolic function is normal. No regional wall motion abnormalities are noted. Aortic Valve: Aortic leaflets are thickened and calcified. Trileaflet. No hemodynamically significant valvular aortic stenosis. Moderate to severe aortic regurgitation. Mitral Valve: Mitral leaflets are thickened with moderate MAC noted. There is no mitral valve stenosis. There is mild mitral regurgitation. Tricuspid Valve: The tricuspid valve is not well visualized, but is grossly normal. There is no tricuspid stenosis. There is mild tricuspid regurgitation. Pulmonic Valve: The pulmonic valve is not well visualized. There is no pulmonic valvular stenosis. Mild to moderate pulmonic valvular regurgitation. Arteries: The aortic root is normal size. Not well-visualized. The pulmonary is not well visualized. Venous: Pulmonary veins were not well visualized during exam. The inferior vena cava was not visualized during the exam. Pericardium/Pleura: Trace to mild posterior pericardial effusion noted. There is no pleural effusion. MMode/2D Measurements and Calculations IVSd: 0.90 cm LVIDd: IVS/LVPW: EDV(cubed): IVSs: 1.3 cm 5.0 cm 1.0 123.3 ml LVIDs: FS: 43.2 % ESV(cubed): [facility] PATIENT NAME: SERGO ROSAS [facility] Dr. Shearer MEDICAL REC #: [id number] [place] [address] ADMIT DATE: 05/11/21 DISCHARGE DATE: ATTENDING PHY: Keyonna Welch MD ECHOCARDIOGRAM REPORT 2.8 cm EF(Teich): 22.6 ml LVPWd: 74.1 % EF(cubed): 0.86 cm 81.6 % LVPWs: % IVS thick: 1.3 cm 48.0 % % LVPW thick: 45.8 % LV mass(C)d: SV(Teich): MV excursion:Ao root 151.8 grams 86.7 ml 1.1 cm diam: 3.0 cm LV mass(C)dI: SI(Teich): MV E-F slope:Ao root 83.0 grams/m2 47.4 ml/m2 4.1 cm/sec area: LV mass(C)s: SV(cubed): 6.9 cm2 113.3 grams 100.6 ml ACS: 1.5 cm LV mass(C)sI: SI(cubed): LA 61.9 grams/m2 55.0 ml/m2 dimension: 4.7 cm LA/Ao: 1.6 EF(MOD-sp4): SI(MOD-sp4): LVOT diam: 72.2 % 42.6 ml/m2 1.9 cm Time Measurements Aortic R-R: 1.0 sec Aortic HR: 58.0 BPM Doppler Measurements and Calculations MV E max j luis: MV max PG: MV P1/2t: Ao V2 max: 86.4 cm/sec 4.8 mmHg 96.1 msec 154.2 cm/sec MV A max j luis: MV mean PG: MVA(P1/2t): Ao max P.2 cm/sec 2.3 mmHg 9.5 mmHg MV E/A: 0.89 MVA(VTI): 2.3 cm2 Ao max PG MV dec time: (full): 2.0 cm2 0.30 sec 4.6 mmHg Ao mean P.6 mmHg Ao mean PG (full): 2.3 mmHg Ao V2 VTI: 36.7 cm RADHA(I,A): 2.1 cm2 RADHA(I,D): 2.1 cm2 RADHA(V,A): [facility] PATIENT NAME: SERGO ROSAS [facility] Dr. Shearer MEDICAL REC #: [id number] [place] [address] ADMIT DATE: 05/11/21 DISCHARGE DATE: ATTENDING PHY: Keyonna Welch MD ECHOCARDIOGRAM REPORT 2.1 cm2 RADHA(V,D): 2.1 cm2 AI max j luis: LV V1 max: CO(Ao): PA max P.3 cm/sec 111.1 cm/sec 14.7 l/min 1.8 mmHg AI max PG: LV V1 mean: CI(Ao): 82.9 mmHg 71.0 cm/sec 8.1 l/min/m2 AI dec slope: LV V1 VTI: SV(Ao): 230.9 cm/sec2 26.8 cm 254.3 ml AI P1/2t: SI(Ao): 577.7 msec 139.0 ml/m2 CO(LVOT): 4.5 l/min CI(LVOT): 2.5 l/ (more content not included)... Normal [facility] ECHOCARDIOGRAM REPORT Normal [facility] CMPon 05-12-2021 Albumin [Mass/Vol] 3.0 g/dL Low 3.2-5.0 [facility] Comment on above: Order Comment: Campu s: M Performed By: #### L 500.39622, L500.41161 #### [facility] [address] [place] [address] Albumin/Globulin [Mass ratio] 1.0 {ratio} Normal 0.8-2.0 [facility] Comment on above: Order Comment: Campu s: M Performed By: #### L 500.34355, L500.85784 #### [facility] [address] [place] [address]53 ALK PHOS 69 U/L Normal 45-117 [facility] Comment on above: Order Comment: Campu s: M Performed By: #### L 500.54549, L500.77288 #### [facility] [address] [place] [address] 26520 ALT [Catalytic activity/Vol] 9 U/L Low 13-61 [facility] Comment on above: Order Comment: Campu s: M Result Comment: RESU LTS MAY BE FALSELY DEPRESSED AFTER THE ADMINISTRATION OF SULFASALAZINE AND/OR SULFAPYRIDINE. Performed By: #### L 500.32405, L500.76691 #### [facility] [address] [place] [address] 56327 Anion gap [Moles/Vol] 8 mmol/L Normal 5-16 [facility] Comment on above: Order Comment: Campu s: M Performed By: #### L 500.95418, L500.52183 #### [facility] [address] [place] [address] AST [Catalytic activity/Vol] 10 U/L Normal 8-34 [facility] Comment on above: Order Comment: Campu s: M Result Comment: RESU LTS MAY BE FALSELY DEPRESSED AFTER THE ADMINISTRATION OF SULFASALAZINE AND/OR SULFAPYRIDINE. Performed By: #### L 500.11593, L500.01491 #### [facility] [address] [place] [address] BILI TOTAL 0.60 MG/DL Normal 0.2-1.0 [facility] Comment on above: Order Comment: Campu s: M Performed By: #### L 500.21430, L500.03688 #### [facility] [address] [place] [address] Calcium [Mass/Vol] 9.0 mg/dL Normal 8.5-10.5 [facility] Comment on above: Order Comment: Campu s: M Result Comment: NOTE NEW NORMAL RANGE DUE TO REAGENT CHANGE Performed By: #### L 500.20341, L500.28534 #### [facility] [address] [place] [address] Chloride [Moles/Vol] 101 mmol/L Normal 98-107 [facility] Comment on above: Order Comment: Campu s: M Performed By: #### L 500.90380, L500.08988 #### [facility] [address] [place] [address]12 CO2 [Moles/Vol] 28.0 mmol/L Normal 21-32 [facility] Comment on above: Order Comment: Campu s: M Performed By: #### L 500.49559, L500.20336 #### [facility] [address] [place] [address] Creatinine [Mass/Vol] 1.71 mg/dL High 0.5-1.4 [facility] Comment on above: Order Comment: Campu s: M Result Comment: NOTE NEW NORMAL RANGE DUE TO REAGENT CHANGE Patients receiving either N-Acetylcysteine (NAC) or Metamizole prior to venipuncture, may have falsely depressed results. Performed By: #### L 500.49993, L500.43987 #### [facility] [address] [place] [address] Globulin (S) [Mass/Vol] 3.0 g/dL Normal 2.2-4.2 [facility] Comment on above: Order Comment: Campu s: M Performed By: #### L 500.86048, L500.97733 #### [facility] [address] [place] [address] Glucose [Mass/Vol] 109 mg/dL High 70-100 [facility] Comment on above: Order Comment: Campu s: M Result Comment: 70-1 00- Normal Fasting; 100-125 Impaired Fasting; greater than 126 on more than one result- Diabetes. ADA guidelines. Results may be falsely elevated after the administration of Sulfapyridine. Results may be falsely depressed after the administration of Sulfasalazine. Performed By: #### L 500.26330, L500.42310 #### [facility] [address] [place] [address] Potassium [Moles/Vol] 3.8 mmol/L Normal 3.5-5.1 [facility] Comment on above: Order Comment: Campu s: M Result Comment: Slig ht Hemolysis, Result may be affected. Performed By: #### L 500.68738, L500.30088 #### [facility] [place] [address] Protein [Mass/Vol] 6.0 g/dL Normal 6.0-8.5 [facility] Comment on above: Order Comment: Campu s: M Performed By: #### L 500.59300, L500.51853 #### [facility] [address] [place] [address] Sodium [Moles/Vol] 137 mmol/L Normal 136-145 [facility] Comment on above: Order Comment: Campu s: M Performed By: #### L 500.97081, L500.43683 #### [facility] [address] [place], [place] [id number] Urea nitrogen [Mass/Vol] 39 mg/dL High 7-26 [facility] Comment on above: Order Comment: Campu s: M Performed By: #### L 500.46327, L500.10291 #### [facility] [address] [place] [address] Urea nitrogen/Creatinine [Mass ratio] 23 mg/mg Normal 15-24 [facility] Comment on above: Order Comment: Campu s: M Performed By: #### L 500.36660, L500.28270 #### [facility] [address] [place] [address] EKGon 05-12-2021 Electrocardiogram Procedure Date and Time: 05/11/212205 Test Reason : STAT Blood Pressure : / mmHG Vent. Rate : 069 BPM Atrial Rate : 069 BPM P-R Int : 166 ms QRS Dur : 092 ms QT Int : 412 ms P-R-T Axes : 030 008 026 degrees QTc Int : 441 ms Normal sinus rhythm Non-specific ST abnormality Abnormal ECG No previous ECGs available Confirmed by DAVIDSON ALTAMIRANO A. ([id number]) on 05/12/2021 2:45:13 PM Referred By: Nacho Gayle Confirmed By:Michel ALTAMIRANO M.D.FACC Henry DDandT: 05/11/212205 TDandT: [facility] PATIENT NAME: SERGO ROSAS Dr. Shearer MEDICAL REC #: [id number] [place] [address] ADMIT DATE: 05/11/21 DISCHARGE DATE: ATTENDING PHY: Keyonna Welch MD ELECTROCARDIOGRAM REPORT CLB cc: [facility] PATIENT NAME: SERGO ROSAS Dr. Shearer MEDICAL REC #: [id number] [place] [address] ADMIT DATE: 05/11/21 DISCHARGE DATE: ATTENDING PHY: Keyonna Welch MD ELECTROCARDIOGRAM REPORT Normal [facility] Johnna 05-12-2021 EMERGENCY PHYSICIAN REPORT This is a preliminary report only, as the practitioner review and authentication has not occurred. Normal [facility] ER PHYSICIAN ASSESSMENT RECORDS : Discharge Report Event Time: 05/11/2021 22:59 : FlexChartData Event Time: 05/11/2021 23:30 Status: Signed [facility] Sergo Rosas [[id number]] Attending Physician 86 / M / 1935 Addendum (V2b) Chart created at 05/11/2021 22:57 by Nacho Gayle Chart closed at 05/11/2021 22:58 Entry in Emergency Department at 05/11/2021 20:56 Patient Name: Sergo Rosas Record Number: [id number] Date: 05/11/2021 22:57 Entered Department at: 05/11/2021 20:56 Patient Seen at: 05/11/2021 21:16 PCP: Dr. Wilson @ [facility] Chief Complaint:Syncopal episode x3 (one witnessed by EMS) at home. Radiology: Interpreted by Radiologist. Medical Decision Making Patient was hydrated here in the emergency room. He does have a little bit of renal insufficiency although there is no old lab work to compare to for baseline. He is remained clinically stable here. I did speak with the hospitalist about bringing him in because of the recurrent episodes of syncope. Cannot completely rule out a dysrhythmia, although I suspect more likely this was either orthostasis or vagal reaction. [facility] PATIENT NAME: SERGO ROSAS [address] [facility] [address] She[facility] MEDICAL REC #: [id number] [place] [address] EMERGENCY DEPARTMENT REPORT EMERGENCY DEPARTMENT PHYSICIAN RICK completed. I was the primary ED attending.. Patient transported to ED by EMS with medical direction by SCEP physician (not applicable for EMT squads) .. : FlexChartData Event Time: 05/11/2021 22:50 Status: Signed [facility] Sergo Rosas [[id number]] Attending Physician 86 / M / 1935 Chart (V2b) Chart created at 05/11/2021 22:13 by Nacho Gayle Chart closed at 05/11/2021 22:17 Entry in Emergency Department at 05/11/2021 20:56 Patient Name: Sergo Rosas Record Number: [id number] Date: 05/11/2021 22:13 Entered Department at: 05/11/2021 20:56 Patient Seen at: 05/11/2021 21:16 Historian: Family and Patient PCP: Dr. Wilson @ [facility] Chief Complaint:Syncopal episode x3 (one witnessed by EMS) at home. Temperature: 97.5 F (36.4 C). Pulse: 65. Respiratory Rate: 16. Blood-pressure: 125/60. Oxygen Saturation: 94%. History of Present Illness: 86-Year-old male comes in for evaluation of weakness dizziness and syncope. He has a history of what sounds like a chronic diarrhea illness. It recently has been improved after getting on an antiparasitic medication. But the diarrhea and vomiting have started up [facility] PATIENT NAME: SERGO ROSAS [facility] Dr. She[facility] MEDICAL REC #: [id number] [place] [id number] EMERGENCY DEPARTMENT REPORT EMERGENCY DEPARTMENT PHYSICIAN again over the last couple of days. Today he was feeling increasing dizziness. He had upset stomach as well. He had a syncopal episode after eating and then had 2 additional syncopal episodes thereafter. He was apparently incontinent after one of them. He may have hit his head, but he denies any head pain currently. The paramedics did witness him to have a syncopal episode themselves. The patient denies any feeling of chest pains or palpitations before, during, or after. He does not have any known cardiac history. Review of Systems. All other systems reviewed and negative.. Past History, Medications, Allergies, Social History and Family History reviewed in nurses note. Medications: Reviewed RN Note. ASPIRIN 81MG ENTERIC COATED TABLET - PO Allergies: Reviewed RN Note No Known Allergies Social History: Reviewed RN Note. Family History: Reviewed RN Note Physical Examination: General: He is alert, but looks weak and frail. Vitals appear stable otherwise. HEENT: Obvious external signs of head trauma. Neck: Was in a c-collar but he has no neck pain and no C-spine tenderness so he was cleared from the c-collar clinically Respiratory: No Resp Distress; Clear in the apex diminished in the bases Cardio-Vascular: RRR Abdomen: Non-tender and Soft; No peritoneal findings Back: Non-tender Extremity: No Calf Tenderness and No edema Neurological: Generalized weakness but no focal or lateralized weakness Skin: Dry Psychological: Mood/Affect Normal and Normal Memory/Judgment Cardiogram: Interpreted by me. Interpretation: Sinus rhythm, rate 69, no ST elevation infarct pattern. Symptom dunne unremarkable study with exception of [facility] PATIENT NAME: SERGO ROSAS [facility] She[facility] MEDICAL REC #: [id number] [place] [address] BRITTA (more content not included)... Normal [facility] GFR ESTon 05-12-2021 IF AMER 46 [facility] Comment on above: Order Comment: Campu s: M Performed By: #### L 500.50741, L500.83366 #### [facility] [address] [place] [address] IF non-AFR AMER 38 [facility] Comment on above: Order Comment: Campu s: M Performed By: #### L 500.23194, L500.29968 #### [facility] [address] [place] [address] IF AMER 45 [facility] Comment on above: Order Comment: Campu s: M Performed By: #### L 550.08779 #### [facility] [address] [place] [address] IF non-AFR AMER 37 [facility] Comment on above: Order Comment: Campu s: M Performed By: #### L 550.86043 #### [facility] [address] [place] [address] HGB A1C GLYCOHBon 05-12-2021 HbA1c (Bld) [Mass fraction] 5.8 % Normal 4.3-6.0 [facility] Comment on above: Order Comment: Campu s: M Performed By: #### L 550.34629 #### [facility] [address] [place] [address] HP.IMS.ADMon 05-12-2021 [facility] HP[facility] Patient Name: ADRIANNES,SERGO Orellana NW Date of : [address] Unit Number: [id number] Admission-HandP Patient Status: REG ER Attending Doctor: Ekaterina RamEmergency Physicians Service Date: 05/11/21 4752 History of Present Illness Source of Information Patient Chief Complaint/Present Illness: Acute on chronic diarrhea, N/V, syncopal events Living Situation Home - Independent History of Present Illness The patient is an 86 y/o M w/ PMHx: BPH, HTN, HLD, Hx AAA s/p stenting at , Prediabetes mellitus type II currently managing himself with lifestyle/diet, Gluten allergy who presents to the [facility] on 05/11/21 with history of severe diarrhea 2 months prior with evaluation at [facility] with no obvious source at that time with colonoscopy performed and patient reports no findings including microscopic colitis eventually discharged and his daughter who is an CABLE MACHINE OPERATOR per his report placed him on unclear type of antiparasitic drugs and he takes several supplements with some improvement since then however suddenly on day of presentation he had severe onset diarrhea, diffusely, associated abdominal cramping with nausea and emesis with unfortunately 3 separate syncopal events over the day eventually prompting ED presentation. He denies any fevers or chills. He describes the abdominal cramping as an aching sensation constantly and more severe cramping when he is about to have a diarrheal episode. Work-up in the ED included CBC with WC 12.6, hemoglobin 16, platelet 241 with left shift, CMP with sodium 135, chloride 97, BUN/creatinine 33/1.76, glucose 142 otherwise unremarkable hepatic profile, high-sensitivity troponin 13.4, lipase 20, pending SARS Covid PCR, given history of fall ED physician requested CT head which is pending upon evaluation of patient. Past Medical/Surgical Hx Past Medical History BPH, HTN, HLD, Hx AAA s/p stenting at , Prediabetes mellitus type II currently managing himself with lifestyle/diet, Gluten allergy with issues with intermittent chronic diarrhea. Past Surgical History AAA s/p stenting. Family/Social History Family Hx Other/Comment Patient notes a paternal family history of stroke and a maternal family history of mild dementia. Social Hx Patient lives with his , denies any tobacco, cigarette or alcohol significant usage. Advance Directives Advance Directives DPOA on file, Living Will on file, Full Code Allergies/Home Medications Allergies Coded Allergies: GLUTEN (Intermediate, DIARRHEA 05/11/21) Home Medications Aspirin* (Ecotrin 81MG Tab*) 81 MG TABLET.DR 81 MG PO QDAYWM, Ref 0 (Reported) Entered as Reported by KEYONNA WELCH on 05/11/212337 Last Action: Continued on 05/11/212338 by KEYONNA WELCH metoprolol TARTRATE* (Lopressor 50MG Tab*) 50 MG TABLET 50 MG PO BID, Ref 0 (Reported) Entered as Reported by KEYONNA WELCH on 05/11/212337 Last Action: Continued on 05/11/212338 by KEYONNA WELCH Tamsulosin HCl* (Flomax 0.4MG Cap*) 0.4 MG CAP.ER.24H 0.4 MG PO QDAY, Ref 0 (Reported) Entered as Reported by KEYONNA WELCH on 05/11/212338 Last Action: Continued on 05/11/212338 by KEYONNA WELCH Review of Systems ROS: Other Review of Systems: CONSTITUTIONAL: No weight loss, fever, chills, + weakness or fatigue. HEENT: Eyes: No visual loss, blurred vision, double vision or yellow sclerae. Ears, Nose, Throat: No hearing loss, sneezing, congestion, runny nose or sore throat. SKIN: No rash or itching, lesions, wounds. CARDIOVASCULAR: + Syncopal events. No chest pain, chest pressure or chest discomfort, palpitations, edema. RESPIRATORY: No shortness of breath, cough or sputum, wheezing, hemoptysis. GASTROINTESTINAL: + anorexia, nausea, vomiting, diarrhea, abdominal pain, no melena, BRBPR. GENITOURINARY: No dysuria, frequency, urgency or retention. NEUROLOGICAL: + Syncopal events, dizziness. No headache, paralysis, ataxia, numbness or tingling in the extremities, focal weakness, seizure. MUSCULOSKELETAL: No muscle, back pain, joint pain or stiffness. HEMATOLOGIC: No anemia, bleeding or bruising. LYMPHATICS: No enlarged nodes. No history of splenectomy. PSYCHIATRIC: No history of depression or anxiety. ENDOCRINOLOGIC: No reports of sweating, cold or heat intolerance. No polyuria or polydipsia. ALLERGIES: No history of asthma, hives, eczema or rhinitis. Physical Exam Vital Signs T 97.5, heart rate 65, BP 125/60, respiratory rate 16, 94% on room air. Physical Exam Summary Physical Examination: General: awake, alert, oriented x 3 and cooperative, seated upright in the ED bed in no apparent distress. Skin: normal color, turgor, no icterus, cyanosis. HEENT: AT/NC, EOMI, PERRLA, mildly dry MM, no carotid bruits or JVD noted. Lungs: Mildly diminished, greater bases, appropriate effort, no rales, ronchi or wheezing. Heart: Regular rate and rhythm; no gallop (more content not included)... Normal [facility] Admission-H&P Normal [facility] HP.IMS.ADM [facility] Patient Name: ADRIANNES,SERGO [address] [place] [address] Date of : [address] [place] [address] Unit Number: [id number] Admission-HandP Patient Status: REG ER Attending Doctor: Ekaterina Ram,Emergency Physicians Service Date: 05/11/212248 History of Present Illness Source of Information Patient Disclaimer This dictation was created using voice recognition software. Phonetic and/or minor grammatical errors may exist. eSign Date and Time Keyonna Welch MD Normal [facility] LIPASEon 05-12-2021 Lipase [Catalytic activity/Vol] 20 U/L Normal 12-60 [facility] Comment on above: Order Comment: Campu s: M Result Comment: NOTE NEW NORMAL RANGE DUE TO REAGENT CHANGE Performed By: #### L 550.32474 #### [facility] [address] [place] [address] LIVERon 05-12-2021 Albumin [Mass/Vol] 3.5 g/dL Normal 3.2-5.0 [facility] Comment on above: Order Comment: Tahira s: M Performed By: #### L 550.12253 #### [facility] [address] [place] [address] Albumin/Globulin [Mass ratio] 1.0 {ratio} Normal 0.8-2.0 [facility] Comment on above: Order Comment: Campu s: M Performed By: #### L 550.12200 #### [facility] [address] [place] [address] ALK PHOS 85 U/L Normal 45-117 [facility] Comment on above: Order Comment: Campu s: M Performed By: #### L 550.82238 #### [facility] [address] [place] [address] ALT [Catalytic activity/Vol] 12 U/L Low 13-61 [facility] Comment on above: Order Comment: Campu s: M Result Comment: RESU LTS MAY BE FALSELY DEPRESSED AFTER THE ADMINISTRATION OF SULFASALAZINE AND/OR SULFAPYRIDINE. Performed By: #### L 550.12814 #### [facility] [address] [place] [address] AST [Catalytic activity/Vol] 18 U/L Normal 8-34 [facility] Comment on above: Order Comment: Campu s: M Result Comment: RESU LTS MAY BE FALSELY DEPRESSED AFTER THE ADMINISTRATION OF SULFASALAZINE AND/OR SULFAPYRIDINE. Performed By: #### L 550.46247 #### [facility] [address] [place] [address] BILI DIRECT 0.3 MG/DL Normal 0.00-0.36 [facility] Comment on above: Order Comment: Campu s: M Result Comment: NOTE NEW NORMAL RANGE DUE TO REAGENT CHANGE Performed By: #### L 550.43959 #### [facility] [address] [place] [address] BILI TOTAL 0.80 MG/DL Normal 0.2-1.0 [facility] Comment on above: Order Comment: Campu s: M Performed By: #### L 550.78136 #### [facility] [address] [place] [address] Globulin (S) [Mass/Vol] 3.6 g/dL Normal 2.2-4.2 [facility] Comment on above: Order Comment: Campu s: M Performed By: #### L 550.09779 #### [facility] [address] [place] [address] Protein [Mass/Vol] 7.1 g/dL Normal 6.0-8.5 [facility] Comment on above: Order Comment: Campu s: M Performed By: #### L 550.34838 #### [facility] [address] [place] [address] MAGNESIUMon 05-12-2021 Magnesium [Mass/Vol] 1.5 mg/dL Low 1.6-2.6 [facility] Comment on above: Order Comment: Campu s: M Performed By: #### L 500.53424, L500.62944 #### [facility] [address] [place] [address] O AND P EXAMon 05-12-2021 O AND P EXAM This report has been cancelled Normal [facility] Comment on above: Order Comment: Deseanu s: M PHOSon 05-12-2021 Phosphate [Mass/Vol] 4.70 mg/dL Normal 2.5-4.9 [facility] Comment on above: Order Comment: Campu s: M Result Comment: Elev ated m-protein (paraprotein) levels in the serum may be exhibited in patients with monoclonal gammopathies, causing falsely elevated inorganic phosphorus results. Performed By: #### L 500.54389, L500.16589 #### [facility] [address] [place] [address] PROG IMSon 05-12-2021 PROG [facility] Patient Name: RALPH,SERGO Suárez [address] [place] [address] Date of : [address] [place] [address] Unit Number: [id number] Progress Note-Hospitalist Patient Status: ADM Yaya Attending Doctor: Keyonna Welch MD Service Date: 05/12/21 1627 Chief Complaint Chief Complaint Nausea vomiting Subjective S: (2 ROS minimum) Patient had having nausea vomiting diarrhea no chest pain or shortness breath today. Objective (ROS) Nursing Vitals Vital Signs (Last) Result Date Time Pulse Ox 95 05/12 151 B/P 113/54 05/12 1510 Temp 97.5 05/12 1510 Pulse 63 05/12 1510 Resp 18 05/12 1510 Physical Exam: General: Patient is alert and oriented x3 and is in no acute respiratory distress. HEENT no eye congestion no ear discharge. Neck is supple no JVD. Lungs: Clear to auscultation, no wheezing, rales, or rhonchi. Cardiac: S1-S2 within normal limits Abdomen: Soft, nontender, nondistended. Extremities: No cyanosis Skin: No rashes or breakdown. Neurologic: Cranial nerves from II-XII intact grossly. Psych normal affect. Lymphatic system, no submandibular or anterior cervical lymphadenopathy. Diagnostic Data: Lab 24hr (CBC/BMP [facility]) 05/12/21 1428: Troponin I 28.4 05/12/21 0715: Troponin I 33.5 05/12/21 0715: Phosphorus 4.70, Magnesium 1.5 L 05/12/21 0715: Hemoglobin A1c 5.8 05/12/21 0715: [Embedded Image Not Available] Anion Gap 8, Est GFR ( Amer) 46, Est GFR (Non-Af Amer) 38, BUN/Creatinine Ratio 23, Glucose 109 H, Total Calcium 9.0, Total Bilirubin 0.60, AST 10, ALT 9 L, Alkaline Phosphatase 69, Serum Total Protein 6.0, Albumin 3.0 L, Globulin 3.0, Albumin/Globulin Ratio 1.0, RBC 4.55, MCV 93.8, MCHC 32.6, RDW 14.2, MPV 10.8, Immature Gran % (Auto) 0.3, Abs Immat Gran (auto) 0.00, Seg Neutrophils % 62.1, Lymphocytes % 21.2, Monocytes % 9.5, Eosinophils % 6.8 H, Basophils % 0.1, Neutrophils # 6.60, Lymphocytes # 2.20, Monocytes # 1.00, Eosinophils # 0.70 H, Basophils # 0.00, Nucleated RBCs 0.0, Atypic/Reactive Lymphs PRESENT, Platelet Estimate ADEQUATE, Platelet Morphology LARGE FORMS NOTED, Polychromasia 1+, Poikilocytosis 1+ 05/12/21 0056: Urine Color Jodi, Urine Appearance Hazy, Urine pH 5.0, Ur Specific Fontana 1.028, Urine Protein 30, Urine Glucose (UA) NEG, Urine Ketones 20, Urine Blood NEGATIVE, Urine Nitrite NEGATIVE, Urine Bilirubin NEGATIVE, Urine Urobilinogen 2.0, Ur Leukocyte Esterase NEG, Urine RBC 2, Urine WBC 2, Ur Squamous Epith Cells 0, Urine Bacteria NONE, Hyaline Casts 40 H, Urine Mucus 1+ 05/11/212149: Troponin I 13.4 05/11/212149: [Embedded Image Not Available] Anion Gap 7, Est GFR ( Amer) 45, Est GFR (Non-Af Amer) 37, BUN/Creatinine Ratio 19, Glucose 142 H, Total Calcium 9.9, Total Bilirubin 0.80, Direct Bilirubin 0.3, AST 18, ALT 12 L, Alkaline Phosphatase 85, Serum Total Protein 7.1, Albumin 3.5, Globulin 3.6, Albumin /Globulin Ratio 1.0, Lipase 20, RBC 5.25, MCV 93.9, MCHC 32.5, RDW 14.2, MPV 11.1, Immature Gran % (Auto) 0.3, Abs Immat Gran (auto) 0.00, Seg Neutrophils % 79.3 H, Lymphocytes % 9.7 L, Monocytes % 6.3, Eosinophils % 4.2, Basophils % 0.2, Neutrophils # 10.00 H, Lymphocytes # 1.20, Monocytes # 0.80, Eosinophils # 0.50, Basophils # 0.00, Nucleated RBCs 0.0, SARS-CoV-2 (PCR) NEGATIVE Assessment and Plan Conclusion 1. Care plan discussed with patient Intractable nausea vomiting diarrhea hypomagnesemia Chronic kidney disease stage III BPH GERD Plan *Advance diet as tolerated since patient is became asymptomatic *replace magnesium *Check CBC BMP magnesium for tomorrow *Continue chronic home medications monitor vital signs Disclaimer This dictation was created using voice recognition software. Phonetic and/or minor grammatical errors may exist. eSign Date and Time Jairo Biswas MD Verified/Reviewed by 05/12/21 6409 [facility] Progress Note-Hospitalist Normal [facility] [id number] 05-12-2021 SARS-CoV-2 (COVID-19) RNA JACKELYN+probe Ql (Unsp spec) Negative Invalid Interpretation Code Negative [facility] Comment on above: Order Comment: Tahira s: M Result Comment: RESU LTS CALLED TO Raquel CLIFFORD AT 2341 05/11/21 BY INDIA MERLOS Negative results do not preclude SARS-CoV-2 infection and should not be used as the sole basis for treatment or other patient management decisions. Negative results must be combined with clinical observation, patient history, and epidemiological information. This test was performed by PCR. Performed By: #### L [id number] #### [facility] [address] [place] [address] STOOL PANEL GIon 05-12-2021 ADENOVIRUS PCR Not detected Normal NOTDETECTED [facility] Comment on above: Order Comment: Deseanu s: M Performed By: #### L 550.40684 #### [facility] [address] [place] [address] ASTROVIRUS PCR Not detected [facility] Comment on above: Order Comment: Tahira s: M Result Comment: Viru s, bacteria, and parasite nucleic acid may persist in vivo independently of organism viability. Additionally, some organisms may be carried asymptomatically. Detection of organism targets does not imply that the corresponding organisms are infections or are the causative agents for clinical symptoms. Performed By: #### L [id number] #### [facility] [address] [place] [address] CAMPY Not detected Normal NOTDETECTED [facility] Comment on above: Order Comment: Campu s: M Performed By: #### L 550.42045 #### [facility] [address] [place] [address] CRYPTOSPORIDIUM Not detected Normal NOTDETECTED [facility] Comment on above: Order Comment: Deseanu s: M Performed By: #### L 550.79932 #### [facility] [address] [facility] [place] [address] CYCLOSPORA PCR Not detected Normal [facility] Comment on above: Order Comment: Campu s: M Performed By: #### L 550.81454 #### [facility] [address] [facility] [place] [address] E.COLI O157 PCR Not detected Normal [facility] Comment on above: Order Comment: Campu s: M Performed By: #### L [id number] #### [facility] [address] [place] [address] E.HISTOLYTICA Not detected Normal NOTDETECTED [facility] Comment on above: Order Comment: Campu s: M Performed By: #### L 550.36092 #### [facility] [place] [address] EAEC E COLI PCR Not detected Normal NOTDETECTED [facility] Comment on above: Order Comment: Campu s: M Performed By: #### L 550.27625 #### [facility] [place] [address] EPEC E COLI PCR Not detected Normal NOTDETECTED [facility] Comment on above: Order Comment: Campu s: M Performed By: #### L 550.56375 #### [facility] [address] [facility] [place] [address] ETEC E.COLI PCR Not detected Normal [facility]DETECTED [facility] Comment on above: Order Comment: Campu s: M Performed By: #### L 550.22014 #### [facility] [address] [facility] [place] [address] GIARDIA MUSE PCR Not detected Normal [facility]DETECT[facility] Comment on above: Order Comment: Campu s: M Performed By: #### L 550.23606 #### [facility] [address] [facility] [place] [address] NOROVIRUS PCR Not detected Normal [facility]DETECT[facility] Comment on above: Order Comment: Campu s: M Performed By: #### L 550.69085 #### [facility] [address] [facility] [place] [address] PLESIOMONAS PCR Not detected Normal [facility] Comment on above: Order Comment: Campu s: M Performed By: #### L 550.49352 #### [facility] [address] [place] [address] ROTAVIRUS A PCR Not detected Normal NOTDETECTED [facility] Comment on above: Order Comment: Campu s: M Performed By: #### L 550.35911 #### [facility] [address] [place] [address] SALMONELLA PCR Not detected Normal NOTDETECTED [facility] Comment on above: Order Comment: Campu s: M Performed By: #### L 550.55639 #### [facility] [address] [place] [address] SAPOVIRUS PCR Not detected Normal NOTDETECTED [facility] Comment on above: Order Comment: Campu s: M Performed By: #### L 550.94883 #### [facility] [place] [address] SHIGATOXIN ECOL Not detected Normal NOTDETECTED [facility] Comment on above: Order Comment: Campu s: M Performed By: #### L 550.31555 #### [facility] [address] [facility] [place] [address] SHIGELLA/EIEC Not detected Normal NOTDETECTED [facility] Comment on above: Order Comment: Campu s: M Performed By: #### L 550.00152 #### [facility] [address] [facility] [place] [address] V CHOLERAE PCR Not detected Normal NOTDETECTED [facility] Comment on above: Order Comment: Campu s: M Performed By: #### L 550.92521 #### [facility] [address] [facility] [place] [address] VIBRIO PCR Not detected Normal NOTDETECTED [facility] Comment on above: Order Comment: Campu s: M Performed By: #### L 550.53374 #### [facility] [place] [address] YERSINIA PCR Not detected Normal NOTDETECTED [facility] Comment on above: Order Comment: Campu s: M Performed By: #### L 550.66086 #### [facility] [address] [place] [address], [place] [address] TROPONIN Ion 05-12-2021 TROPONIN I 28.4 pg/mL Normal 0-54 [facility] Comment on above: Order Comment: Campu s: M Patient Not in Room Result Comment: NOTE NEW NORMAL RANGE DUE TO REAGENT CHANGE This assay uses different antibodies than our current assay, and assays, even by the same hide measuring machine operator may recognize different regions of the antibody and cannot be used interchangeably. Expect results of this assay to run higher than the previous assay. Performed By: #### L 550.00641 #### [facility] [address] [place] [address], [place] [address] TROPONIN I 33.5 pg/mL Normal 0-54 [facility] Comment on above: Order Comment: Campu s: M Result Comment: NOTE NEW NORMAL RANGE DUE TO REAGENT CHANGE This assay uses different antibodies than our current assay, and assays, even by the same hide measuring machine operator may recognize different regions of the antibody and cannot be used interchangeably. Expect results of this assay to run higher than the previous assay. Performed By: #### L 550.57460 #### [facility] [address] [facility] [place] [address] TROPONIN I 13.4 pg/mL Normal 0-54 [facility] Comment on above: Order Comment: Campu s: M Result Comment: NOTE NEW NORMAL RANGE DUE TO REAGENT CHANGE This assay uses different antibodies than our current assay, and assays, even by the same hide measuring machine operator may recognize different regions of the antibody and cannot be used interchangeably. Expect results of this assay to run higher than the previous assay. Performed By: #### L 550.22070 #### [facility] [address] [place] [address] UA COMPLETEon 05-12-2021 Color (U) Jodi Normal [facility] Comment on above: Order Comment: Campu s: M Performed By: #### L 600.33825 #### [facility] [address] [place] [address] Glucose (U) [Mass/Vol] Negative Normal NORMAL [facility] Comment on above: Order Comment: Campu s: M Performed By: #### L 600.43824 #### [facility] [address] [place] [address] HYALINE CAST 40 /LPF High 0-1 [facility] Comment on above: Order Comment: Campu s: M Performed By: #### L 600.72825 #### [facility] [address] [place] [address] Mucus Ql (Urine sed) 1+ Normal NEGATIVE [facility] Comment on above: Order Comment: Campu s: M Performed By: #### L 600.50497 #### [facility] [address] [place] [address] SQUAMOUS EPIS 0 EPI/HPF Normal 0-5 [facility] Comment on above: Order Comment: Campu s: M Performed By: #### L 600.67030 #### [facility] [address] [place] [address] UA APPEARANCE Hazy Normal CLEAR [facility] Comment on above: Order Comment: Campu s: M Performed By: #### L 600.12626 #### [facility] [address] [place] [address] UA BACTERIA NONE Normal NONE [facility] Comment on above: Order Comment: Campu s: M Performed By: #### L 600.54770 #### [facility] [address] [place] [address] UA BILIRUBIN Negative Normal NEGATIVE [facility] Comment on above: Order Comment: Campu s: M Performed By: #### L 600.53668 #### [facility] [address] [place] [address] UA BLOOD Negative Normal NEGATIVE [facility] Comment on above: Order Comment: Campu s: M Performed By: #### L 600.58772 #### [facility] [address] [place] [address] UA KETONE 20 Normal NEGATIVE [facility] Comment on above: Order Comment: Campu s: M Performed By: #### L 600.54701 #### [facility] [address] [place] [address] UA LK ESTERASE Negative Normal NEGATIVE [facility] Comment on above: Order Comment: Campu s: M Performed By: #### L 600.61896 #### [facility] [address] [place] [address] UA NITRITE Negative Normal NEGATIVE [facility] Comment on above: Order Comment: Campu s: M Performed By: #### L 600.02342 #### [facility] [address] [place] [address] UA PH 5.0 Normal 5-6 [facility] Comment on above: Order Comment: Campu s: M Performed By: #### L 600.93348 #### [facility] [address] [place] [address] UA PROTEIN 30 Normal NEGATIVE [facility] Comment on above: Order Comment: Campu s: M Performed By: #### L 600.33091 #### [facility] [address] [place] [address] UA RBC 2 RBC/HPF Normal 0-3 [facility] Comment on above: Order Comment: Campu s: M Performed By: #### L 600.80082 #### [facility] [address] [place] [address] UA SPEC GRAV 1.028 Normal 1.005-1.030 [facility] Comment on above: Order Comment: Campu s: M Performed By: #### L 600.79223 #### [facility] [address] [place] [address] UA UROBILINOGEN 2.0 Normal NORMAL [facility] Comment on above: Order Comment: Campu s: M Performed By: #### L 600.54021 #### [facility] [address] [place] [address] UA WBC 2 WBC/HPF Normal 0-5 [facility] Comment on above: Order Comment: Campu s: M Performed By: #### L 600.68982 #### [facility] [address] [place] [address] CT HEAD/BRAIN W/O CONon 04-25 CT HEAD/BRAIN W/O CON EXAMINATION: CT HEAD/BRAIN W/O CON CLINICAL HISTORY: Syncope. Fall. TECHNIQUE: Routine CT of the brain without IV contrast. CT Dose-Length Product (DLP): 771 mGy*cm CT Dose Reduction Employed: ; Iterative reconstruction COMPARISON: None available. RESULT: Post-operative change: None. Acute change: No evidence of an acute territorial infarct. Hemorrhage: No evidence of acute intracranial hemorrhage. Mass Lesion / Mass Effect: There is no evidence of an intracranial parenchymal mass. No significant mass effect. No significant extra-axial fluid collection is seen. Chronic change: Intracranial arterial wall calcifications are noted. Dural calcifications incidentally noted. 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 Scattered patchy foci of low attenuation are present within supratentorial white matter, which is a nonspecific finding but probably represents mild microvascular ischemia. Parenchyma: There is mild generalized volume loss. The brain parenchyma is normal for age (other than if additional findings described above). Ventricles: Commensurate with sulcal size. No overt hydrocephalus. Visualized paranasal sinuses: Partially imaged. Few areas of mild mucosal thickening. Punctate LEFT maxillary sinus opacity of probable mucosal retention cyst or polyp. Other: Leftward nasal septal deviation with apical bony spur. No depressed skull fracture is seen. Ocular lens replacement change(s). Atlanto-axial arthritic changes are minimally imaged. Mortising Machine Operator (topogram) images: Non-diagnostic. IMPRESSION: No CT evidence of acute intracranial abnormality. 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 This report was electronically signed by Janice Mark MD 05/11/2021 11:09 PM Reported By: JANICE MARK MD Signed By: JANICE MARK MD [facility] [place][note 2] 03-05-2021 Absolute nRBC <0.01 Normal <0.01 [facility] Comment on above: Performed By: #### C MP, CBC ####[facility] [address] [place] [address] Erythrocyte distribution width (RBC) [Ratio] 15.0 % Normal 11.5-15.0 [facility] Comment on above: Performed By: #### C MP, CBC ####[facility] [address] [place] [address] Hematocrit (Bld) [Volume fraction] 31.8 % Low 39.0-51.0 [facility] Comment on above: Performed By: #### C MP, CBC ####[facility] [address] [place] [address] Hemoglobin (Bld) [Mass/Vol] 10.8 g/dL Low 13.0-17.0 [facility] Comment on above: Performed By: #### C MP, CBC ####[facility] [place] [address] MCH 30.5 pG Normal 26.0-34.0 [facility] Comment on above: Performed By: #### C MP, CBC ####[facility] [address] [place] [phone] MCHC (RBC) [Mass/Vol] 34.0 g/dL Normal 30.5-36.0 [facility] Comment on above: Performed By: #### C MP, CBC ####[facility] [address] [place] [phone] MCV (RBC) [Entitic vol] 89.8 fL Normal 80.0-100.0 [facility] Comment on above: Performed By: #### C MP, CBC ####[facility] [address] [place] [phone] Platelet mean volume (Bld) [Entitic vol] 11.0 fL Normal 9.0-12.7 [facility] Comment on above: Performed By: #### C MP, CBC ####[facility] [address] [place], [place] [id number] Platelets (Bld) [#/Vol] 205 10*3/uL Normal 150-400 [facility] Comment on above: Performed By: #### C MP, CBC ####[facility] [address] RBC (Bld) [#/Vol] 3.54 10*6/uL Low 4.20-6.00 [facility] Comment on above: Performed By: #### C MP, CBC ####[facility] [address] [place], [place] [id number] WBC (Bld) [#/Vol] 5.17 10*3/uL Normal 3.70-11.00 [facility] Comment on above: Performed By: #### C MP, CBC ####[facility] [address] [place] [id number] CNDSon 03-05-2021 DS HNO ID: [id number] Author: James Pierce MD Service: Hospital Medicine Author Type: Physician Type: Discharge Summary Filed: 03/05/2021 12:42 PM Note Text: DISCHARGE SUMMARY PATIENT NAME: Sergo Suárez Headings Code Status: Not on file Highest Readmission Risk Score: 14 The 30 day readmissions risk score is derived from an internally validated risk model which evaluates patient level characteristics, utilization history, medication orders and lab results up until the day of discharge. Patients with a score of 40 or above are considered highest risk for readmission. Specific patient level drivers will be listed at the bottom of the summary. Admission Information Admission Information ADMIT DATE: 03/01/2021 DISCHARGE DATE: 03/05/2021 MY DOCTORS AND MEDICAL TEAM: My Main Hospital Doctor: James Pierce MD Primary Care Provider: Walter Loya MD My Medical Team Members: Treatment Team: Attending Provider: James Pierce MD Consulting: Cameron Arnold MD Primary Service: [facility] Consulting: Renny Merrill MD MY CONDITION AT DISCHARGE: Stable REASON I WAS IN THE HOSPITAL: Uncontrolled diarrhea with electrolyte imbalance SUMMARY OF WHAT HAPPENED WHILE I WAS IN THE HOSPITAL: Fluids and electrolyte replacement colonoscopy and stool studies. Still unclear exact etiology of the exacerbation of what appears to be chronic diarrhea. Have GI follow-up on Monday if become dehydrated or weak return to the emergency department and we will readmit. OTHER PROBLEMS/DIAGNOSIS: Principal Problem: Acute diarrhea Active Problems: Hyponatremia Hypokalemia Stage 3 chronic kidney disease (HCC) Severe protein-calorie malnutrition (HCC) Abdominal aortic aneurysm without rupture (HCC) Hypertension, essential Benign prostatic hyperplasia with urinary hesitancy Mixed hyperlipidemia Resolved Problems: * No resolved hospital problems. * OPERATIONS PERFORMED WHILE IN THE HOSPITAL: None IMPORTANT TEST/PROCEDURES: Colonoscopy TEST RESULTS NOT AVAILABLE AT THIS TIME: Biopsy results and at least one stool study Discharge Disposition Discharge Disposition: Home With Self Care Activity When You Leave the Hospital Resume pre-hospital activity Diet Instructions Other: Attempt to make dietary modifications that you usually would under these conditions. As long as you are not having the gas a soft stool is better than the watery diarrhea or a lot of gas. You may want to use Preparation H pads for your bottom so it does not become raw. For Pain When You Leave the Hospital Use acetaminophen (Tylenol) as recommended on the bottle Follow Up Appointments Follow-Up Appointment When: In 4 days Patient/Parents to call for appointment?: Scheduled Chelsy Melisas, DIRECTOR OF HOTEL OPERATIONS.[facility] [phone] [facility] [address] PCP Requested Referral Additional Provider to Provider Information: PLAN - Patient willing to try outpatient dietary modification and electrolyte supplementation with caveat that he may need to return for IV hydration. - Appointment on Monday with GI with stool studies pending. - Discharged on potassium and low-dose magnesium oxide Reason for Admission: Uncontrolled diarrhea with fluid and electrolyte loss dehydration Consultants: Dr. Merrill for infectious disease Dr. Arnold for GI PROCEDURES: Colonoscopy with polypectomy 03/04/2021 Disposition: Home EK12/05/2027 sinus bradycardia basically normal EKG ECHO: 12/05/2019 The left ventricle is normal in size. Left ventricular systolic function is normal. EF = 63 ? 5% (2D biplane) Indeterminate left ventricular diastolic dysfunction. - The right ventricle is normal in size. Right ventricular systolic function is normal. - The left atrial cavity is mildly dilated. - The right atrial cavity is dilated. - There is mild (1+) mitral valve regurgitation. - There is aortic sclerosis without stenosis. There is mild (1-2+) aortic valve regurgitation. HOSPITAL COURSE: Sergo Rosas is a 86 year old male presented with past medical history of HTN, AAA, HLD and collagenous colitis for many years who presented to ED due to worsening of his diarrhea. He has diarrhea off / On since Sep while he was in [place]. He saw GI and PCP in [place] without much improvement. Over last few weeks he has noticed worsening of diarrhea with multiple loose BM. He was seen in ED on 02/24/21. Work up with CT ABD and Stool studies were negative. He went to Urgent care on 02/27 for concern of dehydration. He presented to ED due to weakness, fatigue and no improvement in symptoms. C/O abdominal aches but denies localized abdominal pain. No nausea. One episode of vomiting yesterday. He has lost about 20 pounds in last 6 months. He was diagnosed with Collagenous colitis in 2007 which improved with Entocort. He had similar episode of diarrhea last year while in [place] but kostas (more content not included)... Normal [facility] CONSULT PROGon 03-05-2021 CONSULT PROG HNO ID: [id number] Author: Renny Merrill MD Service: Infectious Disease Author Type: Physician Type: Consult Progress Note Filed: 03/05/2021 10:17 PM Note Text: INFECTIOUS DISEASE PROGRESS NOTE Patient Name: Sergo Rosas INTERVAL HISTORY: Diarrhea seems to be slightly improving, stools not as watery. Denies abdominal pain, nausea, or vomiting. No fevers or chills. No leukocytosis. Colonoscopy path pending Patient Active Hospital Problem List: Acute diarrhea (03/01/2021) Mixed hyperlipidemia (11/30/2010) Abdominal aortic aneurysm without rupture (HCC) (03/11/2016) Hypertension, essential (02/02/2018) Benign prostatic hyperplasia with urinary hesitancy (12/13/2019) Stage 3 chronic kidney disease (HCC) (02/10/2021) Hyponatremia (03/01/2021) Hypokalemia (03/02/2021) Severe protein-calorie malnutrition (HCC) (03/04/2021) ASSESSMENT: --Acute on chronic diarrhea, stool studies negative / cdiff negative. --Collagenous colitis diagnosed in 2007 --IZZY on CKD suspect due to dehydration --Hyponatremia --Peripheral vascular disease --Hypertension ? RECOMMENDATIONS: Stool studies negative. Monitor off antibiotics Serial abdominal exam/stool log S/p colonoscopy follow up pathology. Possible egd outpatient, GI following. MEDICATIONS: reviewed. Current Facility-Administered Medications Medication Dose Route Frequency - metoprolol tartrate (short acting) 50 mg tab(s) (LOPRESSOR) 50 mg ORAL BID - acetaminophen 650 mg tab(s) (TYLENOL) 650 mg ORAL q 6 H PRN - aspirin, enteric coated 81 mg tab(s) 81 mg ORAL DAILY - tamsulosin 0.4 mg cap(s) (FLOMAX) 0.4 mg ORAL DAILY - ammonium lactate 12 % (LAC-HYDRIN) TOPICAL BID - phosphorus 250 mg tab(s) (K PHOS NEUTRAL) 250 mg ORAL PC and HS - dextrose 5% in LR infusion (D5-LR) 100 mL/hr INTRAVENOUS CONTINUOUS PHYSICAL EXAM: Vital signs: BP 131/60 Pulse 66 Temp 36.3 ?C (97.3 ?F) (Oral) Resp 14 Ht 172.7 cm (5' 8 ) Wt 60.9 kg (134 lb 3.2 oz) SpO2 (!) 81% BMI 20.41 kg/m? Temp (24hrs), Av.3 ?C (97.3 ?F), Min:35.9 ?C (96.6 ?F), Max:36.5 ?C (97.7 ?F) General: alert, oriented, NAD Lungs: bilaterally clear to auscultation Heart: regular rate and rhythm Abdomen: soft, non tender, non distended, BS+ Extremities: no edema No rashes No joint inflammation Neck supple Lines ok No CVAT Labs: Recent Labs 03/05/21 0558 03/04/21 0521 03/03/21 0633 WBC 5.17 5.54 5.24 HB 10.8* 11.9* 11.2* PLT 205 213 194 NA 139 135* 135* K 3.7 3.5* 3.2* CO2 29 26 24 BUN 5* 8* 16 CREAT 1.02 1.04 1.15 AST 14 15 12* ALT 12 13 11 TBILI 0.3 0.3 0.4 ALKPHOS 51 60 56 Microbiology data: reviewed Imaging data: reviewed [facility] Pager: [phone] March 05, 2021 4:36 PM Patient seen and examined. Discussed with BUILDING SPECIALIST. Anton findings confirmed. Plan as outlined. Renny Merrill MD [phone] 03/05/2021 5:17 PM [facility] CONSULT PROG HNO ID: [id number] Author: Penelope Argueta MD Service: Gastroenterology Author Type: Physician Type: Consult Progress Note Filed: 03/05/2021 1:06 PM Note Text: GASTROENTEROLOGY CONSULT PROGRESS NOTE Patient Name: Sergo Suárez Headings SERVICE DATE: March 05, 2021 SERVICE TIME: 10:55 AM ASSESSMENT 1-?Acute on chronic diarrhea - C-scope with 5 mm colon polyp, rule out mild proctitis 2-?IZZY on CKD / dehydration?/ hyponatremia - improved 3-?Hx collagenous colitis?(2007) 4- Hx?AAA 5- Gluten intolerance 6- Chronic ASA use 7- Intermittent dysphagia to solids 8- Anemia ? PLAN - F/U colonoscopy pathology - Stool log - F/U fecal fat - IVF as per IM - Daily CBC, CMP - Regular diet - Consider outpatient EGD with dilation pending clinical course for #7 - Of note patient has follow-up with [facility] (Chelsy Melissa NP) March 09, 2021 @ 12:45 pm in [place] Patient seen and examined. Discussed with mid level provider. Anton findings confirmed. Plan as outlined. Feeling better. at bedside and indgvnkk-[id number] Peg conferenced call. Eating more. Stools are forming up. Feels good to home. F/up bx results. F/up in office as scheduled. Penelope Argueta MD March 05, 2021 1:02 PM INTERVAL HPI: Feels better today. No abdominal pain, nausea or vomiting. Reports starting to eat more. Was able to sleep with no stools. Had brown soft stool this am. Colonoscopy pathology pending. PHYSICAL EXAM: Patient Vitals for the past 24 hrs: BP Temp Temp src Pulse Resp SpO2 03/05/21 0746 125/55 36.3 ?C (97.3 ?F) Oral (!) 58 14 97 % 03/04/21 2339 136/69 36.8 ?C (98.2 ?F) Oral 65 18 94 % 03/04/21 2136 144/63 36.5 ?C (97.7 ?F) Oral 78 18 97 % 03/04/21 1434 144/59 36.3 ?C (97.3 ?F) Oral (!) 55 18 97 % GENERAL: Alert AND oriented x 3. Cooperative. NAD EYES: No scleral icterus SKIN: [place] in color. No jaundice LUNGS: Clear to auscultation anteriorly CARDIAC: RRR ABDOMEN: BS x 4. Abdomen soft, non distended. ?Non tender. ?No palpable masses or organomegaly. No?guarding or rebound tenderness elicited EXTREMITIES: No upper or lower extremity edema MEDICATIONS: Current Facility-Administered Medications Medication Dose Route Frequency - metoprolol tartrate (short acting) 50 mg tab(s) (LOPRESSOR) 50 mg ORAL BID - acetaminophen 650 mg tab(s) (TYLENOL) 650 mg ORAL q 6 H PRN - aspirin, enteric coated 81 mg tab(s) 81 mg ORAL DAILY - tamsulosin 0.4 mg cap(s) (FLOMAX) 0.4 mg ORAL DAILY - ammonium lactate 12 % (LAC-HYDRIN) TOPICAL BID - phosphorus 250 mg tab(s) (K PHOS NEUTRAL) 250 mg ORAL PC and HS - dextrose 5% in LR infusion (D5-LR) 100 mL/hr INTRAVENOUS CONTINUOUS - potassium chloride iv piggyback 20 mEq/100 mL 20 mEq INTRAVENOUS q 1 H - magnesium sulfate in sterile water 2 g in sterile water 50 ml 2 g INTRAVENOUS ONCE LABS: CBC, Coags, BMP, Mg, Phos Recent Labs 03/05/21 0558 03/04/21 0503/03/21 0633 WBC 5.17 5.54 5.24 HB 10.8* 11.9* 11.2* HCT 31.8* 34.9* 33.4* PLT 205 213 194 NA 139 135* 135* K 3.7 3.5* 3.2* CHLOR 103 100 101 CO2 29 26 24 BUN 5* 8* 16 CREAT 1.02 1.04 1.15 GLUC 144* 103* 97 CA 8.2* 8.9 8.5 MG 1.8 1.7 1.8 P 3.1 2.6* 2.2* Liver Function, Amylase, AND Lipase Recent Labs 03/05/21 0503/04/21 0503/03/21 0633 TPROT 5.0* 5.7* 5.4* ALB 2.7* 3.0* 2.8* ALT 12 13 11 AST 14 15 12* ALKPHOS 51 60 56 TBILI 0.3 0.3 0.4 MISC LABS 02/24/2021 Stool C-diff (-). Cx (-). 03/01/2021 Stool OANDP (-) 03/01/2021 COVID (-) 03/02/21 Stool OB (-), FL (+), fecal fat (+), Cx (-), OANDP (-) ? Component Latest Ref Rng AND Units 03/02/2021 IgA 70 - 400 mg/dL 323 Transglutaminase Ab, IgA <20 Units 6 Interpretation (Celiac Screen) No serologic evidence of celiac disease. No serologic evidence of celiac disease. Component Latest Ref Rng AND Units 03/03/2021 Iron 41 - 186 ug/dL 27 (L) TIBC 232 - 386 ug/dL 169 (L) Transferrin Saturation 15 - 57 % 16 Ferritin 30.3 - 565.7 ng/mL 297.3 Vitamin B12 232 - 1,245 pg/mL >2,000 (H) Folate >4.7 ng/mL 15.3 RADIOLOGY? 02/01/2021 CTA AP without IV contrast IMPRESSION: 1Status post endovascular stenting of Infrarenal abdominal aorta and both common iliac arteries. ?The stent ?excludes ?asymmetric saccular abdominal aneurysm with maximum dimensions of 6.0 x 5.7 cm (6.8 x 5.[address] by direct comparison). ?Small posterior endoleak seen, likely type II, is seen likely coming from lumbar arteries. ?There is no acute aortic pathology. ? 02/24/2021 CT AP without IV contrast Liver: Small cyst within right hepatic lobe. Biliary: Unremarkable. Spleen: No splenomegaly. Pancreas: Atrophic with multiple calcifications. Adrenals: No mass. Kidneys: No calculus, hydronephrosis or finding to suggest a cyst or mass in the unenhanced kidney. GI Tract: No bowel dilation. ?Duodenal diverticulum noted. Lymph Nodes: N (more content not included)... Normal [facility] Comp Metabolic Panelon 03-05 Albumin [Mass/Vol] 2.7 g/dL Low 3.9-4.9 [facility] Comment on above: Performed By: #### C MP, CBC ####[facility] [address] [place] [address] ALP [Catalytic activity/Vol] 51 U/L Normal 38-113 [facility] Comment on above: Performed By: #### C MP, CBC ####[facility] [address] [place] [address] ALT [Catalytic activity/Vol] 12 U/L Normal 10-54 [facility] Comment on above: Performed By: #### C MP, CBC ####[facility] [address] [place] [address] Anion gap [Moles/Vol] 7 mmol/L Low 9-18 [facility] Comment on above: Performed By: #### C MP, CBC ####[facility] [address] [place] [address] AST [Catalytic activity/Vol] 14 U/L Normal 14-40 [facility] Comment on above: Performed By: #### C MP, CBC ####[facility] [address] [place] [address] Bilirubin [Mass/Vol] 0.3 mg/dL Normal 0.2-1.3 [facility] Comment on above: Performed By: #### C MP, CBC ####[facility] [address] [place] [address] Calcium [Mass/Vol] 8.2 mg/dL Low 8.5-10.2 [facility] Comment on above: Performed By: #### C MP, CBC ####[facility] [address] [place] [address] Chloride [Moles/Vol] 103 mmol/L Normal 97-105 [facility] Comment on above: Performed By: #### C MP, CBC ####[facility] [address] [place] [address] CO2 [Moles/Vol] 29 mmol/L Normal 22-30 [facility] Comment on above: Performed By: #### C MP, CBC ####[facility] [address] [place] [address] Creatinine [Mass/Vol] 1.02 mg/dL Normal 0.73-1.22 [facility] Comment on above: Performed By: #### C MP, CBC ####[facility] [address] [place] [address] eGFR- Amer. >60 Normal [facility] Comment on above: Performed By: #### C MP, CBC ####[facility] [address] [place] [address] eGFR-All Other Races >60 Normal [facility] Comment on above: Result Comment: eGFR (Estimated GFR) Units of measure: mL/min/1.73 meters squared eGFR is derived from the reexpressed MDRD Study equation using the following parameters: serum creatinine, age, gender and race. The creatinine assay has been calibrated to be traceable to IDMS. An eGFR <60 mL/min/1.73m2 for >3 months is consistent with chronic kidney disease. Refer to KDOQI guidelines for clinical interpretation. In patients with unstable renal function, e.g. those with acute kidney injury, the eGFR may not accurately reflect actual GFR. Performed By: #### C MP, CBC ####[facility] [address] [place] [id number] Glucose [Mass/Vol] 144 mg/dL High 74-99 [facility] Comment on above: Result Comment: The [place] Diabetes [employer] (ADA) provides guidance for cutoff values for fasting glucose and random glucose. The ADA defines fasting as no caloric intake for at least 8 hours. Fasting plasma glucose results between 100 to 125 mg/dL indicate increased risk for diabetes (prediabetes). Fasting plasma glucose results greater than or equal to 126 mg/dL meet the criteria for diagnosis of diabetes. In the absence of unequivocal hyperglycemia, results should be confirmed by repeat testing. In a patient with classic symptoms of hyperglycemia or hyperglycemic crisis, random plasma glucose results greater than or equal to 200 mg/dL meet the criteria for diagnosis of diabetes. Reference: Standards of Medical Care in Diabetes 2016, [place] [employer]. Diabetes Care. 2016.39(Suppl 1). Performed By: #### C MP, CBC ####[facility] [address] [place] [address] Potassium [Moles/Vol] 3.7 mmol/L Normal 3.7-5.1 [facility] Comment on above: Performed By: #### C MP, CBC ####[facility] [address] [place] [address] Protein [Mass/Vol] 5.0 g/dL Low 6.3-8.0 [facility] Comment on above: Performed By: #### C MP, CBC ####[facility] [address] [place] [address] Sodium [Moles/Vol] 139 mmol/L Normal 136-144 [facility] Comment on above: Performed By: #### C MP, CBC ####[facility] [address] [place] [address] Urea nitrogen [Mass/Vol] 5 mg/dL Low 9-24 [facility] Comment on above: Performed By: #### C MP, CBC ####[facility] [address] [place] [address] Magnesiumon 03-05-2021 Magnesium [Mass/Vol] 1.8 mg/dL Normal 1.7-2.3 [facility] Comment on above: Performed By: #### P HOS, MG1 ####[facility] [address] [place] [address] NUTRITIONon 03-05-2021 NUTRITION HNO ID: [id number] Author: Zoe Lay RD Service: Nutrition Therapy Author Type: Registered Dietitian Type: Nutrition Filed: 03/05/2021 3:00 PM Note Text: NUTRITION THERAPY PROGRESS NOTE SERVICE DATE: 03/05/2021 SERVICE TIME: 12:50 pm Nutrition Assessment: Recommended Malnutrition Diagnosis: Severe Protein-Calorie Malnutrition (03/02/21 1017 : Martha Slaughter RD) Estimated kilocalorie needs: 0886-2852 Calorie Calculation Method: 25-35 kcals/kg Estimated protein needs (grams): 90-100 Grams protein determined by: 1.2 - 1.6 g/kg Care Plan: Continue current diet Monitor and Evaluation: Meet greater than 75% of estimated needs Interval History: Pt hospitalized with diarrhea, IZZY on CKD. Pt to discharge today. Anthropometrics: Height: 172.7 cm (5' 8 ) Weight: 60.9 kg (134 lb 3.2 oz) Dosing Weight: 70 kg (154 lb 5.2 oz) Body mass index is 20.41 kg/m?. Intake History: Current Intake: Less than 75% estimated energy needs Over: the past 3 days PO intake improving today. Diet Orders (From admission, onward) Start Ordered 03/04/21 0830 Diet Regular START NOW 03/04/21 0823 MNT Billing Type: Re-assess/15 min 1 unit SIGNATURE: Zoe Lay RD PATIENT NAME: Sergo Suárez Headings DATE: March 05, 2021 TIME: 2:59 PM PAGER: [phone] Normal [facility] Phosphoruson 03-05-2021 Phosphate [Mass/Vol] 3.1 mg/dL Normal 2.7-4.8 [facility] Comment on above: Performed By: #### P HOS, MG1 ####[facility] [address] [place] [id number] ANES POSTPROC EVALon 021 ANES POSTPROC EVAL HNO ID: [id number] Author: Delmy Orozco MD Service: Anesthesiology Author Type: Anesthesiologist Type: Anesthesia Postprocedure Evaluation Filed: 03/04/2021 9:52 AM Note Text: POST ANESTHESIA EVALUATION NOTE : 1935 Procedure Summary Date: 03/04/21 Room / Location: [facility] B / [facility] Anesthesia Start: 729 Anesthesia Stop: 818 Procedures: COLONOSCOPY WITH BIOPSY (N/A Abdomen) COLONOSCOPY, FLEXIBLE W/REMOVAL TUMOR(S), POLYP(S), OR OTHER LESION(S) BY SNARE TECHNIQUE (N/A Abdomen) Diagnosis: Chronic diarrhea Surgeons: Cameron Arnold MD Responsible Provider: Peng Goodrich MD Anesthesia Type: MAC ASA Status: 3 Anesthesia Type: MAC Last vitals Vitals Value Taken Time BP 139/64 03/04/21 0947 Temp 03/04/21 0952 HR SpO2 81 03/04/21 0815 Resp 18 03/04/21 0947 SpO2 98 % 03/04/21 0947 Post Anesthesia Patient Status Patient Evaluation: PACU. PACU/ICU Patient Condition: stable. Neurological Status: aware and responsive. Pulmonary Status: breathing comfortably on room air Airway Control: returned to baseline unsupported. Cardiovascular Status: stable. Pain Management: clinically adequate Postoperative Hydration: acceptable. Intraoperative Events: no significant anesthesia events Post Operative Nausea/Vomiting Status: no significant post operative nausea or vomiting Anesthetic Observations: Recommendation: continue current plan of care. No complications documented. SIGNATURE: Delmy Orozco MD PATIENT NAME: Sergo Suárez Headings DATE: March 04, 2021 TIME: 9:52 AM CSN: [id number] [facility] ANES PRE-OPon 03-04-2021 ANES PRE-OP HNO ID: [id number] Author: Peng Goodrich MD Service: Anesthesiology Author Type: Anesthesiologist Type: Anesthesia Preprocedure Evaluation Filed: 03/04/2021 7:35 AM Note Text: ANESTHESIOLOGY DAY OF SURGERY NOTE : 1935 Procedure(s) (LRB): COLONOSCOPY (N/A) Surgeon(s): Cameron Arnold MD Estimated body mass index is 20.41 kg/m? as calculated from the following: Height as of this encounter: 172.7 cm (5' 8 ). Weight as of this encounter: 60.9 kg (134 lb 3.2 oz). Most recent hematocrit and potassium results: HCT 34.9 03/04/2021 K 3.5 03/04/2021 Relevant Problems CARDIO (+) Abdominal aortic aneurysm without rupture (HCC) (+) Bilateral carotid artery stenosis (+) Hypertension, essential (+) Internal hemorrhoids without mention of complication -RENAL (+) Stage 3 chronic kidney disease (HCC) I - PHYSICAL EVALUATION AIRWAY Patient intubated: No. Tracheostomy tube not present Mallampati: II. TM distance: >3 FB. Neck ROM: full ROM without neurological symptoms. Mouth opening: adequate. DENTAL Dental findings: poor dentition. Additional exam findings: no II - ANESTHESIA PLAN ASA Score: 3 Anesthetic Plan: MAC NPO Status: adequate Monitoring plan: standard ASA. Postoperative analgesic plan: parenteral or oral opioids and multimodal analgesia. Anesthetic Risks, Benefits, Alternatives, Personnel Discussed. Consent obtained from: patient.Patient / Surrogate agrees to blood products: blood products not planned Significant changes in the patient condition since the History and Physical, not otherwise documented in primary service progress note: no. No vitals data found for the desired time range. Facility-Administered Medications as of 03/04/2021 Medication Dose Route Frequency - [COMPLETED] potassium phosphate 30 mmol in NaCl 0.9% 250 mL 30 mmol INTRAVENOUS ONCE - [] polyethylene glycol 3350 34 g oral powder (MIRALAX, GLYCOLAX) 34 g ORAL q 1 H - [MAR Hold due to Transfer] polyethylene glycol 3350 34 g packet (MIRALAX, GLYCOLAX) 34 g ORAL DAILY - [COMPLETED] potassium chloride iv piggyback 20 mEq/100 mL 20 mEq INTRAVENOUS q 1 H - [COMPLETED] magnesium sulfate 1 g in D5W 100 mL 1 g INTRAVENOUS ONCE - [MAR Hold due to Transfer] lactated ringers iv infusion 100 mL/hr INTRAVENOUS CONTINUOUS - [MAR Hold due to Transfer] ammonium lactate 12 % (LAC-HYDRIN) TOPICAL BID - [COMPLETED] NaCl 0.9% 1,000 mL iv bolus 1,000 mL INTRAVENOUS ONCE - [MAR Hold due to Transfer] metoprolol tartrate (short acting) 50 mg tab(s) (LOPRESSOR) 50 mg ORAL BID - [MAR Hold due to Transfer] acetaminophen 650 mg tab(s) (TYLENOL) 650 mg ORAL q 6 H PRN - [MAR Hold due to Transfer] aspirin, enteric coated 81 mg tab(s) 81 mg ORAL DAILY - [MAR Hold due to Transfer] tamsulosin 0.4 mg cap(s) (FLOMAX) 0.4 mg ORAL DAILY Outpatient Medications as of 03/04/2021 Medication Sig - cholecalciferol (VITAMIN D-3) 5,000 unit tab Take 1 tablet by mouth once daily. - ZINC ORAL Take 50 mg by mouth once daily. - metoprolol tartrate, short acting, (LOPRESSOR) 50 mg tablet Take 1 tablet by mouth twice daily. - TESTOSTERONE, BULK, MISC Cream - CYANOCOBALAMIN, VITAMIN B-12, (VITAMIN B-12 ORAL) Take by mouth once daily. - Aspirin 81 mg tab Take 1 tablet by mouth once daily. - triamcinolone (KENALOG IN ORABASE) 0.1 % paste Apply to affected areas 2-3 times a day. - iv contrast (will be provided with radiology test) CT Chest W -Inject, intravenously, once for 1 dose.No IV access, insert saline lock prior to the beginning of sedation, infusion, injection of imaging exam. Discontinue saline lock post exam. If Pt. has a central line or IVAD, may access for administration according to line specific nursing protocol. Once exam is complete flush line and de-access according to line specific nursing protocol in the CT contrast administration guidelines link. - homeopathic drugs (PROSTATE ORAL) - cholestyramine (QUESTRAN) 4 gram packet 1 PACKET MIXED WITH WATER OR NON CARBONATED DRINK TWICE A DAY ORALLY 30 DAY(S) - acetaminophen (TYLENOL) 325 mg tablet Take 2 tablets by mouth every 6 hours. I have interviewed and examined the patient. I have reviewed the medical record and/or the pre-anesthesia evaluation, pertinent labs, and test results. This contains updated information obtained within 48 hours of Surgery/Procedure. SIGNATURE: Peng Goodrich MD PATIENT NAME: Sergo Suárez Headings DATE: March 04, 2021 TIME: 7:34 AM CSN: [id number] [facility] BRIEF OP NOTon 03-04-2021 BRIEF OP NOT HNO ID: [id number] Author: Cameron Arnold MD Service: ? Author Type: Physician Type: Brief Op Note Filed: 03/04/2021 8:14 AM Note Text: BRIEF OPERATIVE / PROCEDURE NOTE LOG ID: [id number] SURGERY/PROCEDURE DATE: 03/04/2021 INCISION/PROCEDURE START TIME: 7:38 AM INCISION CLOSE/PROCEDURE END TIME: 8:05 AM SURGEON(S)/PROCEDURAL IST(S) AND IN FLIGHT REFUELING SYSTEM REPAIRER(S): Surgeon(s) and Role: * Cameron Arnold MD - Primary No Additional Staff SURGERY/PROCEDURE(S): colonoscopy w bx and polypectomy ANESTHESIA: Monitored Anesthesia Care FINDINGS: 5mm benign-appearing polyp Diverticulosis R/O mild Proctitis Int Hemorrhoids ESTIMATED BLOOD LOSS: 3 mls SPECIMENS: polyp/bxs COMPLICATIONS: None PRE-OP/PRE-PROCEDURE DIAGNOSIS: diarrhea POST-OP/POST-PROCEDUR E DIAGNOSIS: as above SIGNATURE: Cameron Arnold MD PATIENT NAME: Sergo Suárez Headings DATE: March 04, 2021 TIME: 8:12 AM Normal [facility] CBCon 03-04-2021 Absolute nRBC <0.01 Normal <0.01 [facility] Comment on above: Performed By: #### C BC, CMP ####[facility] [address] [place] [address] Erythrocyte distribution width (RBC) [Ratio] 14.8 % Normal 11.5-15.0 [facility] Comment on above: Performed By: #### C BC, CMP ####[place] [address] Hematocrit (Bld) [Volume fraction] 34.9 % Low 39.0-51.0 [facility] Comment on above: Performed By: #### C BC, CMP ####[facility] [address] [place] [address] Hemoglobin (Bld) [Mass/Vol] 11.9 g/dL Low 13.0-17.0 [facility] Comment on above: Performed By: #### C BC, CMP ####[place] [address] MCH 30.3 pG Normal 26.0-34.0 [facility] Comment on above: Performed By: #### C BC, CMP ####[place] [address] MCHC (RBC) [Mass/Vol] 34.1 g/dL Normal 30.5-36.0 [facility] Comment on above: Performed By: #### C BC, CMP ####[place] [address] MCV (RBC) [Entitic vol] 88.8 fL Normal 80.0-100.0 [facility] Comment on above: Performed By: #### C BC, CMP ####[place] [address] Platelet mean volume (Bld) [Entitic vol] 11.0 fL Normal 9.0-12.7 [facility] Comment on above: Performed By: #### C BC, CMP ####[facility] [address] [place] [address] Platelets (Bld) [#/Vol] 213 10*3/uL Normal 150-400 [facility] Comment on above: Performed By: #### C BC, CMP ####[facility] [address] [place] [address] RBC (Bld) [#/Vol] 3.93 10*6/uL Low 4.20-6.00 [facility] Comment on above: Performed By: #### C BC, CMP ####[facility] [address] [place] [address] WBC (Bld) [#/Vol] 5.54 10*3/uL Normal 3.70-11.00 [facility] Comment on above: Performed By: #### C BC, CMP ####[facility] [address] CONSULT PROGon 03-04-2021 CONSULT PROG HNO ID: [id number] Author: Renny Merrill MD Service: Infectious Disease Author Type: Physician Type: Consult Progress Note Filed: 03/04/2021 12:38 PM Note Text: INFECTIOUS DISEASE PROGRESS NOTE Patient Name: Sergo Suárez Headings INTERVAL HISTORY: Going for colonoscopy today. Creatinine improved back to normal. No fevers or chills. Review of systems checked in details. Patient Active Hospital Problem List: Acute diarrhea (03/01/2021) Mixed hyperlipidemia (11/30/2010) Abdominal aortic aneurysm without rupture (HCC) (03/11/2016) Hypertension, essential (02/02/2018) Benign prostatic hyperplasia with urinary hesitancy (12/13/2019) Stage 3 chronic kidney disease (HCC) (02/10/2021) Hyponatremia (03/01/2021) Hypokalemia (03/02/2021) Severe protein-calorie malnutrition (HCC) (03/04/2021) ASSESSMENT: --Acute on chronic diarrhea, stool studies negative / cdiff negative. --Collagenous colitis diagnosed in 2007 --IZZY on CKD suspect due to dehydration --Hyponatremia --Peripheral vascular disease --Hypertension ? RECOMMENDATIONS: Stool studies negative. Monitor off antibiotics Serial abdominal exam/stool log GI following, had colonoscopy today MEDICATIONS: reviewed. Current Facility-Administered Medications Medication Dose Route Frequency - metoprolol tartrate (short acting) 50 mg tab(s) (LOPRESSOR) 50 mg ORAL BID - acetaminophen 650 mg tab(s) (TYLENOL) 650 mg ORAL q 6 H PRN - aspirin, enteric coated 81 mg tab(s) 81 mg ORAL DAILY - tamsulosin 0.4 mg cap(s) (FLOMAX) 0.4 mg ORAL DAILY - ammonium lactate 12 % (LAC-HYDRIN) TOPICAL BID - phosphorus 250 mg tab(s) (K PHOS NEUTRAL) 250 mg ORAL PC and HS - potassium chloride iv piggyback 20 mEq/100 mL 20 mEq INTRAVENOUS q 1 H - magnesium sulfate in sterile water 2 g in sterile water 50 ml 2 g INTRAVENOUS ONCE - dextrose 5% in LR infusion (D5-LR) 100 mL/hr INTRAVENOUS CONTINUOUS PHYSICAL EXAM: Vital signs: BP 139/64 Pulse 69 Temp 36.3 ?C (97.4 ?F) (Oral) Resp 18 Ht 172.7 cm (5' 8 ) Wt 60.9 kg (134 lb 3.2 oz) SpO2 98% BMI 20.41 kg/m? Temp (24hrs), Av.3 ?C (97.3 ?F), Min:35.9 ?C (96.6 ?F), Max:36.5 ?C (97.7 ?F) General: alert, oriented, NAD Lungs: bilaterally clear to auscultation Heart: regular rate and rhythm Abdomen: soft, non tender, non distended, BS+ Extremities: no edema No rashes No joint inflammation Neck supple Lines ok No CVAT Labs: Recent Labs 03/04/21 0521 03/03/21 0633 03/02/21 0504 WBC 5.54 5.24 6.50 HB 11.9* 11.2* 11.7* PLT 213 194 183 NA 135* 135* 135* K 3.5* 3.2* 3.3* CO2 26 24 22 BUN 8* 16 29* CREAT 1.04 1.15 1.31* AST 15 12* 12* ALT 13 11 11 TBILI 0.3 0.4 0.4 ALKPHOS 60 56 54 Microbiology data: reviewed Imaging data: reviewed Renny Merrill MD [phone] 03/04/2021 12:37 PM Normal [facility] Comp Metabolic Panelon 03-04 Albumin [Mass/Vol] 3.0 g/dL Low 3.9-4.9 [facility] Comment on above: Performed By: #### C BC, CMP ####[facility] [address] [place] [address] ALP [Catalytic activity/Vol] 60 U/L Normal 38-113 [facility] Comment on above: Performed By: #### C BC, CMP ####[facility] [address] [place] [address] ALT [Catalytic activity/Vol] 13 U/L Normal 10-54 [facility] Comment on above: Performed By: #### C BC, CMP ####[facility] [address] [place] [address] Anion gap [Moles/Vol] 9 mmol/L Normal 9-18 [facility] Comment on above: Performed By: #### C BC, CMP ####[facility] [address] [place] [address] AST [Catalytic activity/Vol] 15 U/L Normal 14-40 [facility] Comment on above: Performed By: #### C BC, CMP ####[facility] [address] [place] [address] Bilirubin [Mass/Vol] 0.3 mg/dL Normal 0.2-1.3 [facility] Comment on above: Performed By: #### C BC, CMP ####[facility] [address] [place] [address] Calcium [Mass/Vol] 8.9 mg/dL Normal 8.5-10.2 [facility] Comment on above: Performed By: #### C BC, CMP ####[facility] [address] [place] [address] Chloride [Moles/Vol] 100 mmol/L Normal 97-105 [facility] Comment on above: Performed By: #### C BC, CMP ####[facility] [address] [place] [address] CO2 [Moles/Vol] 26 mmol/L Normal 22-30 [facility] Comment on above: Performed By: #### C BC, CMP ####[facility] [phone] Creatinine [Mass/Vol] 1.04 mg/dL Normal 0.73-1.22 [facility] Comment on above: Performed By: #### C BC, CMP ####[facility] [address] [place] [address] eGFR- Amer. >60 Normal [facility] Comment on above: Performed By: #### C BC, CMP ####[facility] [address] eGFR-All Other Races >60 Normal [facility] Comment on above: Result Comment: eGFR (Estimated GFR) Units of measure: mL/min/1.73 meters squared eGFR is derived from the reexpressed MDRD Study equation using the following parameters: serum creatinine, age, gender and race. The creatinine assay has been calibrated to be traceable to IDMS. An eGFR <60 mL/min/1.73m2 for >3 months is consistent with chronic kidney disease. Refer to KDOQI guidelines for clinical interpretation. In patients with unstable renal function, e.g. those with acute kidney injury, the eGFR may not accurately reflect actual GFR. Performed By: #### C BC, CMP ####[facility] [address] [place] [id number] Glucose [Mass/Vol] 103 mg/dL High 74-99 [facility] Comment on above: Result Comment: The [place] Diabetes Association (ADA) provides guidance for cutoff values for fasting glucose and random glucose. The ADA defines fasting as no caloric intake for at least 8 hours. Fasting plasma glucose results between 100 to 125 mg/dL indicate increased risk for diabetes (prediabetes). Fasting plasma glucose results greater than or equal to 126 mg/dL meet the criteria for diagnosis of diabetes. In the absence of unequivocal hyperglycemia, results should be confirmed by repeat testing. In a patient with classic symptoms of hyperglycemia or hyperglycemic crisis, random plasma glucose results greater than or equal to 200 mg/dL meet the criteria for diagnosis of diabetes. Reference: Standards of Medical Care in Diabetes 2016, [place] [employer]. Diabetes Care. 2016.39(Suppl 1). Performed By: #### C BC, CMP ####[facility] [address] [place] [address] Potassium [Moles/Vol] 3.5 mmol/L Low 3.7-5.1 [facility] Comment on above: Performed By: #### C BC, CMP ####[facility] [address] [place] [address] Protein [Mass/Vol] 5.7 g/dL Low 6.3-8.0 [facility] Comment on above: Performed By: #### C BC, CMP ####[facility] [address] [place] [address] Sodium [Moles/Vol] 135 mmol/L Low 136-144 [facility] Comment on above: Performed By: #### C BC, CMP ####[facility] [address] [place] [address] Urea nitrogen [Mass/Vol] 8 mg/dL Low 9-24 [facility] Comment on above: Performed By: #### C BC, CMP ####[facility] [address] [place] [address] Magnesiumon 03-04-2021 Magnesium [Mass/Vol] 1.7 mg/dL Normal 1.7-2.3 [facility] Comment on above: Performed By: #### P HOS, MG1 ####[facility] [address] [place] [address] OPERATIVE NOon 03-04-2021 OPERATIVE NO HNO ID: [id number] Author: Cameron Arnold MD Service: ? Author Type: Physician Type: Operative Report Filed: 03/05/2021 8:26 AM Note Text: [facility] - Operative Report HEADINGS, SERGO Suáerz : 1935 AGE: 86. SEX: M PATIENT TYPE: I HOSP SVC: INTM LOCATION: [facility] [place] ATTENDING PHYSICIAN: James Pierce M.D. CSN NUMBER: [id number] DATE OF SURGERY/PROCEDURE: 03/04/2021 INCISION/PROCEDURE START TIME: Scope in at 7:38. INCISION CLOSE/PROCEDURE END TIME: Scope out at 8:05. PREOPERATIVE DIAGNOSIS: Patient with a history of diarrhea of undefined cause. POSTOPERATIVE DIAGNOSIS: 1. 5 mm benign-appearing ascending colon polyp, removed completely via snare electrocautery, submitted for histology. 2. Suboptimal bowel prep estimated 85% of the colonic mucosa directly visualized. 3. Diffuse diverticulosis, moderate in number. 4. Small internal hemorrhoids. 5. Tortuous colon. 6. Rule out mild proctitis. SURGEON: Cameron Arnold M.D. IN [employer] REPAIRER: Christos Hahn. SURGERY/PROCEDURE: Colonoscopy with polypectomy and biopsy. ANESTHESIA: Monitored anesthesia care. INDICATIONS: Patient with a history of diarrhea of undefined cause. CONSENT: The patient was described the potential risks, benefits, and alternatives to colonoscopy with intervention. All questions answered. The patient gave informed consent. DESCRIPTION OF PROCEDURE: The patient was placed in a left lateral decubitus position, monitored and sedated via monitored anesthesia care. Under direct vision and without difficulty, the pediatric colonoscope was gently advanced to the cecum. The cecum was identified by triangular folds, ileocecal valve, visualization of the appendiceal orifice, and transillumination of the right pelvis. The bowel preparation was suboptimal as there was some liquid and formed stool in the colon. Irrigation and suction technique was used to obtain the most optimal views possible. Within the limits of this bowel preparation, it was estimated that 85% of the colonic mucosa could be directly visualized. The cecum appeared normal. The ascending colon revealed a benign-appearing 5 mm polyp removed entirely via snare electrocautery and submitted for histology. No evidence of complication. The ascending colon also revealed several scattered diverticula as did all sections of the colon. In every other regard, the ascending colon appeared normal. Biopsies were taken to rule out microscopic colitis. The transverse colon appeared normal as did the descending colon and sigmoid colon. The rectum demonstrated a very minimal patchy erythema. Multiple biopsies were taken to rule out proctitis. Retroflexed views revealed internal hemorrhoids. The rectum otherwise appeared normal. The scope was slowly and gently withdrawn. The patient tolerated the procedure well. A postprocedure digital rectal exam was normal. POSTOPERATIVE PLAN: 1. Await biopsy results. 2. Follow gluten free diet, which has been beneficial to the patient in the past. 3. All other recommendations and therapy will be based upon the clinical course and results of histology. LOG ID: [id number]. Cameron Arnold M.D. ALEXANDRAM:[id number] [facility] Phosphoruson 03-04-2021 Phosphate [Mass/Vol] 2.6 mg/dL Low 2.7-4.8 [facility] Comment on above: Performed By: #### P HOS, MG1 ####[facility] [address] [place] [phone] SURGICAL PATHOLOGYon 021 SURGICAL PATHOLOGY * ADDENDUM PRESENT Specimen originated from [facility] Specimen #: [id number] Submitting Physician: Cameron Arnold M.D. FINAL DIAGNOSIS 1. Colon, ascending, polyp, biopsy (A) - Inflammatory-type polyp arising in a background of colonic mucosa with collagenous colitis pattern of injury with activity and erosion (see comment) 2. Colon, ascending, biopsy (B) - Collagenous colitis pattern of injury with activity (see comment). 3. Colon, rectum, polyp , biopsy (C) - Collagenous colitis pattern of injury with activity and erosion (see comment). NERISSA/conrado 03/05/2021 COMMENT 1, 2, 3. The histologic findings show an expanded collagen table entrapping inflammatory cells and capillaries. Accompanying this, there is active inflammation include cryptitis and crypt microabscess. In areas, apoptotic debris is conspicuous within crypt epithelium. Johnny and colleagues (see reference) found active inflammation (i.e. cryptitis, crypt microabscess) in up to 30% of biopsies from a cohort of collagenous colitis patients with diagnoses endoscopically, clinically, and histologically confirmed. Thus, it is not an uncommon phenomenon in true collagenous colitis and active inflammation alone does not necessarily imply a different diagnosis. Of note, these same authors found that active inflammation in collagenous colitis can be seen in association with superimposed infection. In all, the differential diagnosis of a collagenous colitis pattern of injury with activity is broad and includes collagenous colitis, infection, and drug/medication-induc ed mucosal injury (e.g. NSAIDs, PPIs, angiotensin II receptor blockers, etc.). Given the presence of erosion, CMV and adenovirus immunostains have been ordered on block C1 and will be reported in an addendum. Correlation with clinical and endoscopic findings is recommended. 1. Multiple deeper levels were reviewed. There is no definitive evidence of epithelial dysplasia. Select slides were reviewed with Dr. Laura Ruth (GI Pathology), who concurs. 3. I note the endoscopic impression of a minimal patch of erythema, without mention of identification of a polyp within the rectum. Furthermore, I note the clinical data for part C states rule out proctitis. Multiple deeper levels were reviewed. There is no definitive evidence of epithelial dysplasia. Histologic findings are that of fragments of colonic mucosa with collagenous colitis pattern of injury with activity and increased apoptotic activity, similar to parts 1 (A) and 2 (B). References of interest: Robles Moreno, et al. Prevalence and significance of inflammatory bowel disease-like morphologic features in collagenous and lymphocytic colitis. Am J Surg Pathol 2002;26:3737-7724. Mellisa Brito M.D. (Electronic Signature) ____ SPECIMEN SUBMITTED A: ASCENDING COLON POLYP B: ASCENDING COLON, BIOPSY C: RECTAL POLYP ADDENDUM Date Ordered: 03/15/2021 Date Reported: 03/15/2021 3. CMV and adenovirus immunostains are negative for viral antigens. Laboratory Developed Test (LDT) Disclaimer: Positive and negative controls stain appropriately. Performance characteristics of immunohistochemical, immunofluorescent and chromogenic in-situ hybridization tests have been determined by [facility]'s [facility] Pathology and Laboratory Medicine [place] ([facility]) in a manner consistent with CLIA requirements. One or more of these tests have not been cleared or approved by the FDA. [facility] is regulated under CLIA as qualified to perform high-complexity testing. These tests are used for clinical purposes. They should not be regarded as investigational or for research. Addendum Pathologist: Mellisa Brito M.D. Electronic Signature CLINICAL DATA A: POLYPS B: R/O MICROSCOPIC COLITIS C: R/O PROCTITIS GROSS DESCRIPTION A. Received in formalin are two pieces of hughes, soft tissue aggregating to 0.4 x 0.2 x 0.1 cm. Totally submitted in one cassette. B. Received in formalin are multiple pieces of hughes, soft tissue aggregating to 0.8 x 0.2 x 0.1 cm. Totally submitted in one cassette. C. Received in formalin are multiple pieces of hughes, soft tissue aggregating to 1.0 x 0.2 x 0.2 cm. Totally submitted in one cassette. Gross examination performed at [facility], [address] [place] [address] 03/04/2021 7:27:56 PM Date of Report: 03/11/2021 Date of Procedure: 03/04/2021 Date of Receipt: 03/04/2021 Submitted by: Cameron Arnold M.D. Location: 2 S Diagnostic interpretation performed at [place] [address]. CLIA Number: [id number] Normal [facility] CBCon 03-03-2021 Absolute nRBC <0.01 Normal <0.01 [facility] Comment on above: Performed By: #### C BC, CMP ####[facility] [address] [place], [place] [phone] Erythrocyte distribution width (RBC) [Ratio] 14.8 % Normal 11.5-15.0 [facility] Comment on above: Performed By: #### C BC, CMP ####[facility] [address]256 [phone] Hematocrit (Bld) [Volume fraction] 33.4 % Low 39.0-51.0 [facility] Comment on above: Performed By: #### C AMIRA, CMP ####[facility] [address] [place] [address] Hemoglobin (Bld) [Mass/Vol] 11.2 g/dL Low 13.0-17.0 [facility] Comment on above: Performed By: #### C BC, CMP ####[facility] [address] [place] [address] MCH 30.0 pG Normal 26.0-34.0 [facility] Comment on above: Performed By: #### C AMIRA, CMP ####[facility] [address] [place] [address] MCHC (RBC) [Mass/Vol] 33.5 g/dL Normal 30.5-36.0 [facility] Comment on above: Performed By: #### C AMIRA, CMP ####[place] [address] MCV (RBC) [Entitic vol] 89.5 fL Normal 80.0-100.0 [facility] Comment on above: Performed By: #### C AMIRA, CMP ####[place] [address] Platelet mean volume (Bld) [Entitic vol] 11.1 fL Normal 9.0-12.7 [facility] Comment on above: Performed By: #### C AMIRA, CMP ####[place] [address] Platelets (Bld) [#/Vol] 194 10*3/uL Normal 150-400 [facility] Comment on above: Performed By: #### C AMIRA, CMP ####[facility] [address] [place] [address] RBC (Bld) [#/Vol] 3.73 10*6/uL Low 4.20-6.00 [facility] Comment on above: Performed By: #### C AMIRA, CMP ####[place] [address] WBC (Bld) [#/Vol] 5.24 10*3/uL Normal 3.70-11.00 [facility] Comment on above: Performed By: #### C AMIRA, CMP ####[facility] [address] [place], [place] [address] CONSULT PROGon 03-03-2021 CONSULT PROG HNO ID: [id number] Author: Cameron Arnold MD Service: Gastroenterology Author Type: Physician Type: Consult Progress Note Filed: 03/03/2021 4:49 PM Note Text: GASTROENTEROLOGY CONSULT PROGRESS NOTE Patient Name: Sergo Suárez Headings SERVICE DATE: March 03, 2021 SERVICE TIME: 10:12 AM ASSESSMENT 1- Acute on chronic diarrhea 2- IZZY on CKD / dehydration / hyponatremia 3- Hx collagenous colitis (2007) 4- Hx AAA 5- Gluten intolerance 6- Chronic ASA use 7- Intermittent dysphagia to solids 8- Anemia ? PLAN - Stool log - F/U stool for FL, fecal fat and Celiac screen - IVF as per IM - Hold Questran for now - Clear liquid diet - Daily CBC, CMP - Check iron studies, folate, vitamin B 12 - Plan for colonoscopy in am - May need EGD with dilation pending clinical course for #7 INTERVAL HPI: Continues to have diarrhea - had six liquid brown stools in past 24 hours. No abdominal pain, nausea or vomiting. Tolerating clear liquid diet. PHYSICAL EXAM: Patient Vitals for the past 24 hrs: BP Temp Temp src Pulse Resp SpO2 03/03/21 0755 122/52 36.8 ?C (98.2 ?F) Oral 60 18 98 % 03/03/21 0003 (!) 128/49 36.8 ?C (98.2 ?F) Oral (!) 56 17 96 % 03/02/21 2154 113/50 ? ? 70 16 97 % 03/02/21 1448 (!) 117/47 36.4 ?C (97.5 ?F) Oral (!) 57 16 98 % GENERAL: Alert AND oriented x 3. Cooperative. NAD EYES: No scleral icterus SKIN: [place] in color. No jaundice LUNGS: Clear to auscultation anteriorly CARDIAC: RRR ABDOMEN: BS x 4. Abdomen soft, non distended. Non tender. No palpable masses or organomegaly. No guarding or rebound tenderness elicited EXTREMITIES: No upper or lower extremity edema MEDICATIONS: Current Facility-Administered Medications Medication Dose Route Frequency - metoprolol tartrate (short acting) 50 mg tab(s) (LOPRESSOR) 50 mg ORAL BID - acetaminophen 650 mg tab(s) (TYLENOL) 650 mg ORAL q 6 H PRN - aspirin, enteric coated 81 mg tab(s) 81 mg ORAL DAILY - tamsulosin 0.4 mg cap(s) (FLOMAX) 0.4 mg ORAL DAILY - lactated ringers iv infusion 100 mL/hr INTRAVENOUS CONTINUOUS - ammonium lactate 12 % (LAC-HYDRIN) TOPICAL BID - potassium phosphate 30 mmol in NaCl 0.9% 250 mL 30 mmol INTRAVENOUS ONCE LABS: CBC, Coags, BMP, Mg, Phos Recent Labs 03/03/21 0633 03/02/21 0504 03/01/21 1835 WBC 5.24 6.50 6.31 HB 11.2* 11.7* 12.8* HCT 33.4* 34.5* 37.9* PLT 194 183 192 NA 135* 135* 126* K 3.2* 3.3* 3.6* CHLOR 101 98 89* CO2 24 22 23 BUN 16 29* 34* CREAT 1.15 1.31* 1.49* GLUC 97 73* 102* CA 8.5 8.5 9.1 MG 1.8 -- 1.9 P 2.2* -- -- Liver Function, Amylase, AND Lipase Recent Labs 03/03/21 0633 03/02/21 0504 03/01/21 1835 TPROT 5.4* 5.9* 7.0 ALB 2.8* 3.1* 3.7* ALT 11 11 13 AST 12* 12* 13* ALKPHOS 56 54 62 TBILI 0.4 0.4 0.6 LIPASE -- -- 16 MISC LABS 02/24/2021 Stool C-diff (-). Cx (-). 03/01/2021 Stool OANDP (-) 03/01/2021 COVID (-) 03/02/21 Stool OB (-), FL (pending), fecal fat (pending) ? RADIOLOGY 02/01/2021 CTA AP without IV contrast IMPRESSION: 1Status post endovascular stenting of Infrarenal abdominal aorta and both common iliac arteries. ?The stent ?excludes ?asymmetric saccular abdominal aneurysm with maximum dimensions of 6.0 x 5.7 cm (6.8 x 5.[address] by direct comparison). ?Small posterior endoleak seen, likely type II, is seen likely coming from lumbar arteries. ?There is no acute aortic pathology. ? 02/24/2021 CT AP without IV contrast Liver: Small cyst within right hepatic lobe. Biliary: Unremarkable. Spleen: No splenomegaly. Pancreas: Atrophic with multiple calcifications. Adrenals: No mass. Kidneys: No calculus, hydronephrosis or finding to suggest a cyst or mass in the unenhanced kidney. GI Tract: No bowel dilation. ?Duodenal diverticulum noted. Lymph Nodes: No lymphadenopathy. Mesentery/peritoneum: No ascites. Retroperitoneum: No mass. Vasculature: Patient status post endovascular repair of a infrarenal aortic aneurysm with associated bilateral iliac stents. ?Aneurysm measures 5.8 x 6 cm. Pelvis: No mass or ascites. Bones/Soft Tissues: No acute abnormality. Lower thorax: Bibasilar subsegmental atelectasis. ?Linear scarring at left base. IMPRESSION: No acute findings. Status post endovascular stent repair of infrarenal abdominal aortic aneurysm with extension into the bilateral common iliac arteries. ? Aneurysm measures 5.8 x 6 cm, which is slightly smaller compared to prior when it measured 6.4 x 5.7 cm. ? MOST RECENT EGD: 02/04/2019 (Noah Luis MD). Foreign body of stomach 1. A 2.3 cm linear dental bur in duodenum. 2. Large duodenal diverticulum. 3. Small hiatus hernia. 4. Schatzki ring (acquired). ? MOST RECENT COLONOSCOPY: 05/05/2008 (Dr. Samuel Oliveira). Change in bowel habits. Diarrhea - small internal hemorrhoids - moderately severe diverticulosis of descending colon - s (more content not included)... Normal [facility] CONSULT PROG HNO ID: [id number] Author: Renny Merrill MD Service: Infectious Disease Author Type: Physician Type: Consult Progress Note Filed: 03/03/2021 9:32 AM Note Text: INFECTIOUS DISEASE PROGRESS NOTE Patient Name: Sergo Suárez Headings INTERVAL HISTORY: Creatinine continues to be increasing. No fevers or chills. 4 bowel movements documented over the past 24 hours. Review of systems checked in details. Patient Active Hospital Problem List: Acute diarrhea (03/01/2021) Mixed hyperlipidemia (11/30/2010) Abdominal aortic aneurysm without rupture (HCC) (03/11/2016) Hypertension, essential (02/02/2018) Benign prostatic hyperplasia with urinary hesitancy (12/13/2019) Stage 3 chronic kidney disease (HCC) (02/10/2021) Hyponatremia (03/01/2021) Hypokalemia (03/02/2021) ASSESSMENT: --Acute on chronic diarrhea, stool studies negative / cdiff negative. --Collagenous colitis diagnosed in 2007 --IZZY on CKD suspect due to dehydration --Hyponatremia --Peripheral vascular disease --Hypertension ? RECOMMENDATIONS: Stool studies negative. Monitor off antibiotics Serial abdominal exam/stool log GI following, plans for colonoscopy on tentatively on MEDICATIONS: reviewed. Current Facility-Administered Medications Medication Dose Route Frequency - metoprolol tartrate (short acting) 50 mg tab(s) (LOPRESSOR) 50 mg ORAL BID - acetaminophen 650 mg tab(s) (TYLENOL) 650 mg ORAL q 6 H PRN - aspirin, enteric coated 81 mg tab(s) 81 mg ORAL DAILY - tamsulosin 0.4 mg cap(s) (FLOMAX) 0.4 mg ORAL DAILY - lactated ringers iv infusion 100 mL/hr INTRAVENOUS CONTINUOUS - ammonium lactate 12 % (LAC-HYDRIN) TOPICAL BID - potassium phosphate 30 mmol in NaCl 0.9% 250 mL 30 mmol INTRAVENOUS ONCE PHYSICAL EXAM: Vital signs: BP 122/52 Pulse 60 Temp 36.8 ?C (98.2 ?F) (Oral) Resp 18 Ht 172.7 cm (5' 8 ) Wt 60.9 kg (134 lb 3.2 oz) SpO2 98% BMI 20.41 kg/m? Temp (24hrs), Av.7 ?C (98 ?F), Min:36.4 ?C (97.5 ?F), Max:36.8 ?C (98.2 ?F) General: alert, oriented, NAD Lungs: bilaterally clear to auscultation Heart: regular rate and rhythm Abdomen: soft, non tender, non distended, BS+ Extremities: no edema No rashes No joint inflammation Neck supple Lines ok No CVAT Labs: Recent Labs 03/03/21 0633 03/02/21 0504 03/01/21 1835 WBC 5.24 6.50 6.31 HB 11.2* 11.7* 12.8* PLT 194 183 192 NA 135* 135* 126* K 3.2* 3.3* 3.6* CO2 24 22 23 BUN 16 29* 34* CREAT 1.15 1.31* 1.49* AST 12* 12* 13* ALT 11 11 13 TBILI 0.4 0.4 0.6 ALKPHOS 56 54 62 Microbiology data: reviewed Imaging data: reviewed Renny Merrill MD Pager: Date of service: 03/03/2021 Time of service: 9:18 AM This note is not final until Authenticated by responsible provider. Normal [facility] Comp Metabolic Panelon 03-03 Albumin [Mass/Vol] 2.8 g/dL Low 3.9-4.9 [facility] Comment on above: Performed By: #### C BC, CMP ####[facility] [address] [place] [address] ALP [Catalytic activity/Vol] 56 U/L Normal 38-113 [facility] Comment on above: Performed By: #### C BC, CMP ####[facility] [address] [place] [address] ALT [Catalytic activity/Vol] 11 U/L Normal 10-54 [facility] Comment on above: Performed By: #### C BC, CMP ####[facility] [address] [place] [address] Anion gap [Moles/Vol] 10 mmol/L Normal 9-18 [facility] Comment on above: Performed By: #### C BC, CMP ####[facility] [address] [place] [address] AST [Catalytic activity/Vol] 12 U/L Low 14-40 [facility] Comment on above: Performed By: #### C BC, CMP ####[facility] [address] [place] [address] Bilirubin [Mass/Vol] 0.4 mg/dL Normal 0.2-1.3 [facility] Comment on above: Performed By: #### C BC, CMP ####[facility] [address] [place] [address] Calcium [Mass/Vol] 8.5 mg/dL Normal 8.5-10.2 [facility] Comment on above: Performed By: #### C BC, CMP ####[facility] [address] [place] [address] Chloride [Moles/Vol] 101 mmol/L Normal 97-105 [facility] Comment on above: Performed By: #### C BC, CMP ####[facility] [address] [place] [id number] CO2 [Moles/Vol] 24 mmol/L Normal 22-30 [facility] Comment on above: Performed By: #### C BC, CMP ####[facility] [address] [place] [address] Creatinine [Mass/Vol] 1.15 mg/dL Normal 0.73-1.22 [facility] Comment on above: Performed By: #### C BC, CMP ####[facility] [address] [place] [address] eGFR- Amer. >60 Normal [facility] Comment on above: Performed By: #### C BC, CMP ####[facility] [address] [place] [address] eGFR-All Other Races >60 Normal [facility] Comment on above: Result Comment: eGFR (Estimated GFR) Units of measure: mL/min/1.73 meters squared eGFR is derived from the reexpressed MDRD Study equation using the following parameters: serum creatinine, age, gender and race. The creatinine assay has been calibrated to be traceable to [employer]. An eGFR <60 mL/min/1.73m2 for >3 months is consistent with chronic kidney disease. Refer to KDOQI guidelines for clinical interpretation. In patients with unstable renal function, e.g. those with acute kidney injury, the eGFR may not accurately reflect actual GFR. Performed By: #### C BC, CMP ####[facility] [address] [place] [id number] Glucose [Mass/Vol] 97 mg/dL Normal 74-99 [facility] Comment on above: Result Comment: The [place] Diabetes [employer] (ADA) provides guidance for cutoff values for fasting glucose and random glucose. The ADA defines fasting as no caloric intake for at least 8 hours. Fasting plasma glucose results between 100 to 125 mg/dL indicate increased risk for diabetes (prediabetes). Fasting plasma glucose results greater than or equal to 126 mg/dL meet the criteria for diagnosis of diabetes. In the absence of unequivocal hyperglycemia, results should be confirmed by repeat testing. In a patient with classic symptoms of hyperglycemia or hyperglycemic crisis, random plasma glucose results greater than or equal to 200 mg/dL meet the criteria for diagnosis of diabetes. Reference: Standards of Medical Care in Diabetes 2016, [place] [employer]. Diabetes Care. 2016.39(Suppl 1). Performed By: #### C BC, CMP ####[facility] [address] [place] [address] Potassium [Moles/Vol] 3.2 mmol/L Low 3.7-5.1 [facility] Comment on above: Performed By: #### C BC, CMP ####[facility] [address] [place] [address] Protein [Mass/Vol] 5.4 g/dL Low 6.3-8.0 [facility] Comment on above: Performed By: #### C BC, CMP ####[facility] [address] [place] [address] Sodium [Moles/Vol] 135 mmol/L Low 136-144 [facility] Comment on above: Performed By: #### C BC, CMP ####[facility] [address] [place] [address] Urea nitrogen [Mass/Vol] 16 mg/dL Normal 9-24 [facility] Comment on above: Performed By: #### C BC, CMP ####[facility] [address] [place] [address] Ferritinon 03-03-2021 Ferritin [Mass/Vol] 297.3 ng/mL Normal 30.3-565.7 [facility] Comment on above: Performed By: #### B 12 SERFOAlan FERR ####[facility] [address] [place] [address] Folate, Serumon 03-03-2021 Folate [Mass/Vol] 15.3 ng/mL Normal >4.7 [facility] Comment on above: Performed By: #### B 12, SERFOL, FERR ####[facility] [address] [place] [address] Iron and TIBCon 03-03-2021 Iron [Mass/Vol] 27 ug/dL Low 41-186 [facility] Comment on above: Performed By: #### I [place] ####[facility] [address] [place] [address] TIBC 169 ug/dL Low 232-386 [facility] Comment on above: Performed By: #### I [place] ####[facility] [address] [place] [address] Transferrin Saturatn 16 % Normal 15-57 [facility] Comment on above: Performed By: #### I [place] ####[facility] [address] [place] [address] Magnesiumon 03-03-2021 Magnesium [Mass/Vol] 1.8 mg/dL Normal 1.7-2.3 [facility] Comment on above: Performed By: #### M G1 ####[facility] [address] [place] [address] Phosphoruson 03-03-2021 Phosphate [Mass/Vol] 2.2 mg/dL Low 2.7-4.8 [facility] Comment on above: Performed By: #### P HOS ####[facility] [address] [place] [address] Vitamin B12on 03-03-2021 Cobalamin (Vitamin B12) [Mass/Vol] pg/mL High 232-1245 [facility] Comment on above: Performed By: #### B 12, SERFOL, FERR ####[facility] [address] [place] [address] CBCon 03-02-2021 Absolute nRBC <0.01 Normal <0.01 [facility] Comment on above: Performed By: #### C BC, CMP ####[place] [address] Erythrocyte distribution width (RBC) [Ratio] 14.6 % Normal 11.5-15.0 [facility] Comment on above: Performed By: #### C BC, CMP ####[facility] [address] [place] [address] Hematocrit (Bld) [Volume fraction] 34.5 % Low 39.0-51.0 [facility] Comment on above: Performed By: #### C AMIRA, CMP ####[facility] [address] [place] [address] Hemoglobin (Bld) [Mass/Vol] 11.7 g/dL Low 13.0-17.0 [facility] Comment on above: Performed By: #### C AMIRA, CMP ####[facility] [address] [place] [address] MCH 30.2 pG Normal 26.0-34.0 [facility] Comment on above: Performed By: #### C AMIRA, CMP ####[facility] [address] [place] [address] MCHC (RBC) [Mass/Vol] 33.9 g/dL Normal 30.5-36.0 [facility] Comment on above: Performed By: #### C AMIRA, CMP ####[facility] [address] [place] [address] MCV (RBC) [Entitic vol] 88.9 fL Normal 80.0-100.0 [facility] Comment on above: Performed By: #### C AMIRA, CMP ####[facility] [address] [place] [address] Platelet mean volume (Bld) [Entitic vol] 11.0 fL Normal 9.0-12.7 [facility] Comment on above: Performed By: #### C AMIRA, CMP ####[facility] [address] [place] [address] Platelets (Bld) [#/Vol] 183 10*3/uL Normal 150-400 [facility] Comment on above: Performed By: #### C AMIRA, CMP ####[facility] [address] [place] [address] RBC (Bld) [#/Vol] 3.88 10*6/uL Low 4.20-6.00 [facility] Comment on above: Performed By: #### C AMIRA, CMP ####[facility] [address] [place] [address] WBC (Bld) [#/Vol] 6.50 10*3/uL Normal 3.70-11.00 [facility] Comment on above: Performed By: #### C BC, CMP ####[facility] [address] [place] [phone] CONSULTon 03-02-2021 CONSULT HNO ID: [id number] Author: Renny Merrill MD Service: Infectious Disease Author Type: Physician Type: Consults Filed: 03/02/2021 6:13 PM Note Text: CONSULT: INFECTIOUS DISEASE SERVICE SERVICE DATE: 03/02/2021 SERVICE TIME: 2:15 PM REASON FOR CONSULT: Acute exacerbation of colitis concern for infectious REQUESTING PHYSICIAN: James Pierce MD PRIMARY CARE PHYSICIAN: Walter Loya MD Subjective Mr. Rosas is a 86 year old male with past medical history of collagenous colitis diagnosed in 2007, gluten AND lactose intolerance, hypertension, hyperlipidemia, peripheral vascular disease, and chronic kidney disease who presented to ED on 02/24/21 for evaluation of chronic diarrhea and dehydration. He has had diarrhea on and off since September, however worsening over the past few weeks. He has tried imodium and other remedies without improvements. He reports frequent non bloody-watery diarrhea approximately associated with abdominal cramping and weight loss. States had nausea with one episode of non bloody emesis over the weekend trying to drink plenty of water to keep hydrated. He denies any fevers or chills. He had similar episode one year ago in [place]. He was evaluated in ED on 02/28 and at the time CT AP showed no acute findings. Stool culture and cdiff was negative. He presented back due to no improvements in symptoms and concern for dehydration. Presents afebrile and hemodynamically stable. Covid-19 negative. Work up significant for IZZY and hyponatremia. Wbc 6.31 and lipase 16. Cryptosporidium and giardia ag negative. PAST MEDICAL HISTORY Diagnosis Date - Abdominal aortic aneurysm without rupture (HCC) 03/11/[address] Singh - Benign prostatic hyperplasia with urinary hesitancy 12/13/2019 Had 10h of urinary retention, Voided x2 since chang removed but small volume Begun on flomax 12/11 Obtain postvoid residual to ensure no overflow incontinence - Bilateral carotid artery stenosis 08/20/2018 - Celiac disease 08/31/2010 - Dermatophytosis of nail - Diarrhea - Disorders of bursae and tendons in shoulder region, unspecified 09/08/2013 - Diverticulosis of large intestine - Elevated hemoglobin A1c 02/10/2021 - Hypertension, essential 02/02/2018 - Internal hemorrhoids without mention of complication 05/05/2008 - Medicare annual wellness visit, subsequent 02/08/2017 Medicare part B: 09/25/2012 last done: 03/27/2019 - Mixed hyperlipidemia 11/30/2010 - Neck pain, chronic 04/25/2017 - Peripheral vascular disease (HCC) 02/25/2016 - Stage 3a chronic kidney disease (HCC) 02/10/2021 - Vitamin D deficiency 04/06/2009 PAST SURGICAL HISTORY Procedure Laterality Date - ABD AORTA ANEURYSM REPAIR 11/2019 - COLONOSCOP W/ OR W/O BRSH SPEC 03/23/2004 Colonoscopy - COLONOSCOP W/ OR W/O BRSH SPEC 05/05/2008 Colonoscopy, repeat 10 yrs - PAST SURGICAL HISTORY OF 04/14/2004 excision of lesion neck - PAST SURGICAL HISTORY OF 02/21/1992 lesion removed from rectum FAMILY HISTORY Problem Relation Age of Onset - Stroke Father - other (lupus) Sister - Diabetes Brother - Diabetes Brother Social History Tobacco Use - Smoking status: Never Smoker - Smokeless tobacco: Never Used Substance Use Topics - Alcohol use: No - Drug use: Never cholecalciferol (VITAMIN D-3) 5,000 unit tab, Take 1 tablet by mouth once daily., Disp: , Rfl: , 03/01/2021 at Unknown time ZINC ORAL, Take 50 mg by mouth once daily., Disp: , Rfl: , 03/01/2021 at Unknown time metoprolol tartrate, short acting, (LOPRESSOR) 50 mg tablet, Take 1 tablet by mouth twice daily., Disp: 60 tablet, Rfl: 5, 03/01/2021 at Unknown time TESTOSTERONE, BULK, MISC, Cream, Disp: , Rfl: , Unknown at Unknown time CYANOCOBALAMIN, VITAMIN B-12, (VITAMIN B-12 ORAL), Take by mouth once daily., Disp: , Rfl: , 03/01/2021 at Unknown time Aspirin 81 mg tab, Take 1 tablet by mouth once daily., Disp: , Rfl: 0, 03/01/2021 at Unknown time triamcinolone (KENALOG IN ORABASE) 0.1 % paste, Apply to affected areas 2-3 times a day., Disp: 15 g, Rfl: 1, Unknown at Unknown time iv contrast (will be provided with radiology test), CT Chest W -Inject, intravenously, once for 1 dose.No IV access, insert saline lock prior to the beginning of sedation, infusion, injection of imaging exam. Discontinue saline lock post exam. If Pt. has a central line or IVAD, may access for administration according to line specific nursing protocol. Once exam is complete flush line and de-access according to line specific nursing protocol in the CT contrast administration guidelines link., Disp: 1 Each, Rfl: 0, Unknown at Unknown time homeopathic drugs (PROSTATE ORAL), , Disp: , Rfl: , Unknown at Unknown time cholestyramine (QUESTRAN) 4 gram packet, 1 PACKET MIXED WITH WATER OR NON CARBONATED DRINK TWICE A DAY ORALLY 30 DAY(S), Disp: , Rfl: , Unknown at Unknown time acetaminophen (TYLENOL) 325 mg tablet, Take 2 tablets by mouth every 6 hours., Disp (more content not included)... [facility] CONSULT HNO ID: [id number] Author: Cameron [place] MD Service: Gastroenterology Author Type: Physician Type: Consults Filed: 03/02/2021 4:44 PM Note Text: GASTROENTEROLOGY CONSULT NOTE PATIENT NAME: Sergo Suárez Headings SERVICE DATE: March 02, 2021 SERVICE TIME: 8:56 AM PRIMARY CARE PHYSICIAN: Walter Loya MD ATTENDING PHYSICIAN: Dr. Pierce REASON FOR ADMISSION: Hyponatremia REASON FOR CONSULTATION: Chronic diarrhea HPI: This is a 86 year old male with a past medical history significant for collagenous colitis (2007), celiac disease (per patient, no bx done to confirm), lactose intolerance, hypertension, hyperlipidemia, peripheral vascular disease, chronic kidney disease who presented with diarrhea. Patient is a poor historian but states he developed diarrhea in September and since then has progressively worsened. States initially was passing ~ 4 watery stools per day with reports of nocturnal stools. States saw PCP in [place] who recommended Questran (1/2 packet every other day prn) but states he has rarely used this. States his diarrhea has progressively worsened since September but worse over the past 2 weeks. States has been passing watery nonbloody stools - up to 15x/day. Associated diffuse abdominal constant aching. States had nausea with one episode of non bloody emesis over the weekend. He was seen in ER 02/24/21 for same complaints. Stool for C-diff and cx obtained and negative. CT AP at that time was unremarkable and dishcarged. Due to persistent diarrhea he represented to an urgent care over the weekend. At that time stool for OANDP obtained (results still pending) and was instructed to increase his po fluids. Diarrhea persisted and he was concerned for dehydration and therefore represented to ER yesterday. ER evaluation significant for IZZY, hyponatremia and therefore admitted with GI consult. He reports abdominal discomfort and diarrhea have improved since admission. States prior to onset of diarrhea in September bowel habits altered with formed and looser stools once daily. Denied hematochezia or melena. Has lost ~ 20 lbs since September 2020. States has gluten intolerance and has been following gluten free diet since 2007. States gluten causes diarrhea and bloating. Denies heartburn. Reports rare dysphagia to dry foods. Takes ASA 81 mg daily. Denies NSAID use. ? ALLERGIES: ALLERGIES Allergen Reactions - Gluten Diarrhea Upset stomach Gas build up PAST MEDICAL HISTORY: PAST MEDICAL HISTORY Diagnosis Date - Abdominal aortic aneurysm without rupture (HCC) 03/11/[address] Singh - Benign prostatic hyperplasia with urinary hesitancy 12/13/2019 Had 10h of urinary retention, Voided x2 since chang removed but small volume Begun on flomax 12/11 Obtain postvoid residual to ensure no overflow incontinence - Bilateral carotid artery stenosis 08/20/2018 - Celiac disease 08/31/2010 - Dermatophytosis of nail - Diarrhea - Disorders of bursae and tendons in shoulder region, unspecified 09/08/2013 - Diverticulosis of large intestine - Elevated hemoglobin A1c 02/10/2021 - Hypertension, essential 02/02/2018 - Internal hemorrhoids without mention of complication 05/05/2008 - Medicare annual wellness visit, subsequent 02/08/2017 Medicare part B: 09/25/2012 last done: 03/27/2019 - Mixed hyperlipidemia 11/30/2010 - Neck pain, chronic 04/25/2017 - Peripheral vascular disease (HCC) 02/25/2016 - Stage 3a chronic kidney disease (HCC) 02/10/2021 - Vitamin D deficiency 04/06/2009 PAST SURGICAL HISTORY: PAST SURGICAL HISTORY Procedure Laterality Date - ABD AORTA ANEURYSM REPAIR 11/2019 - COLONOSCOP W/ OR W/O BRSH SPEC 03/23/2004 Colonoscopy - COLONOSCOP W/ OR W/O BRSH SPEC 05/05/2008 Colonoscopy, repeat 10 yrs - PAST SURGICAL HISTORY OF 04/14/2004 excision of lesion neck - PAST SURGICAL HISTORY OF 02/21/1992 lesion removed from rectum MEDICATIONS: Prior to Admission Medications: cholecalciferol (VITAMIN D-3) 5,000 unit tab, Take 1 tablet by mouth once daily., Disp: , Rfl: , 03/01/2021 at Unknown time ZINC ORAL, Take 50 mg by mouth once daily., Disp: , Rfl: , 03/01/2021 at Unknown time metoprolol tartrate, short acting, (LOPRESSOR) 50 mg tablet, Take 1 tablet by mouth twice daily., Disp: 60 tablet, Rfl: 5, 03/01/2021 at Unknown time TESTOSTERONE, BULK, MISC, Cream, Disp: , Rfl: , Unknown at Unknown time CYANOCOBALAMIN, VITAMIN B-12, (VITAMIN B-12 ORAL), Take by mouth once daily., Disp: , Rfl: , 03/01/2021 at Unknown time Aspirin 81 mg tab, Take 1 tablet by mouth once daily., Disp: , Rfl: 0, 03/01/2021 at Unknown time triamcinolone (KENALOG IN ORABASE) 0.1 % paste, Apply to affected areas 2-3 times a day., Disp: 15 g, Rfl: 1, Unknown at Unknown time iv contrast (will be provided with radiology test), CT Chest W -Inject, intravenously, once for 1 dose.No IV access, insert saline lock prior to the beginning of sedation, infusion, injection of zeinab (more content not included)... Normal [facility] Celiac Scr w Reflexon 2020 IgA [Mass/Vol] 323 mg/dL Normal 70-400 [facility] Comment on above: Performed By: #### C ELSCR ####[facility] [address] [place], [place] [phone] Interpretation No serologic evidenc e of celiac disease. Normal No serologic evidence of celiac disease. [facility] Comment on above: Performed By: #### C ELSCR ####[facility] [address] [place], [place] [phone] Transglutaminase IgA 6 Units Normal <20 [facility] Comment on above: Result Comment: Nega tive : < 20 Units Weak Positive : 20 - 30 Units Moderate Pos to Strong Pos: >30 Units The following results were obtained with the [employer] h-tTG IgA [place]. h-tTG IgA values obtained with different manufacturers' assay methods may not be used interchangeably. The magnitude of the reported IgA levels cannot be correlated to an endpoint titer. Performed By: #### C ELSCR ####[facility] [place], [place] [phone] Comp Metabolic Panelon 03-02 Albumin [Mass/Vol] 3.1 g/dL Low 3.9-4.9 [facility] Comment on above: Performed By: #### C BC, CMP ####[facility] [address] [place] [address] ALP [Catalytic activity/Vol] 54 U/L Normal 38-113 [facility] Comment on above: Performed By: #### C BC, CMP ####[place] [address] ALT [Catalytic activity/Vol] 11 U/L Normal 10-54 [facility] Comment on above: Performed By: #### C BC, CMP ####[place] [address] Anion gap [Moles/Vol] 15 mmol/L Normal 9-18 [facility] Comment on above: Performed By: #### C BC, CMP ####[place] [address] AST [Catalytic activity/Vol] 12 U/L Low 14-40 [facility] Comment on above: Performed By: #### C BC, CMP ####[facility] [address] [place] [address] Bilirubin [Mass/Vol] 0.4 mg/dL Normal 0.2-1.3 [facility] Comment on above: Performed By: #### C BC, CMP ####[facility] [address] [place] [address] Calcium [Mass/Vol] 8.5 mg/dL Normal 8.5-10.2 [facility] Comment on above: Performed By: #### C BC, CMP ####[facility] [address] Chloride [Moles/Vol] 98 mmol/L Normal 97-105 [facility] Comment on above: Performed By: #### C BC, CMP ####[facility] [address] [place] [phone] CO2 [Moles/Vol] 22 mmol/L Normal 22-30 [facility] Comment on above: Performed By: #### C BC, CMP ####[facility] [address] [place] [id number] Creatinine [Mass/Vol] 1.31 mg/dL High 0.73-1.22 [facility] Comment on above: Performed By: #### C BC, CMP ####[facility] [address] [place] [address] eGFR- Amer. >60 Normal [facility] Comment on above: Performed By: #### C BC, CMP ####[facility] [address] [place] [address] eGFR-All Other Races 52 . Normal [facility] Comment on above: Result Comment: eGFR (Estimated GFR) Units of measure: mL/min/1.73 meters squared eGFR is derived from the reexpressed MDRD Study equation using the following parameters: serum creatinine, age, gender and race. The creatinine assay has been calibrated to be traceable to IDMS. An eGFR <60 mL/min/1.73m2 for >3 months is consistent with chronic kidney disease. Refer to KDOQI guidelines for clinical interpretation. In patients with unstable renal function, e.g. those with acute kidney injury, the eGFR may not accurately reflect actual GFR. Performed By: #### C BC, CMP ####[facility] Ywf[address]gqin5277 [address] Glucose [Mass/Vol] 73 mg/dL Low 74-99 [facility] Comment on above: Result Comment: The [place] Diabetes Association (ADA) provides guidance for cutoff values for fasting glucose and random glucose. The ADA defines fasting as no caloric intake for at least 8 hours. Fasting plasma glucose results between 100 to 125 mg/dL indicate increased risk for diabetes (prediabetes). Fasting plasma glucose results greater than or equal to 126 mg/dL meet the criteria for diagnosis of diabetes. In the absence of unequivocal hyperglycemia, results should be confirmed by repeat testing. In a patient with classic symptoms of hyperglycemia or hyperglycemic crisis, random plasma glucose results greater than or equal to 200 mg/dL meet the criteria for diagnosis of diabetes. Reference: Standards of Medical Care in Diabetes 2016, [place] [employer]. Diabetes Care. 2016.39(Suppl 1). Performed By: #### C BC, CMP ####[facility] [address] [place] [address] Potassium [Moles/Vol] 3.3 mmol/L Low 3.7-5.1 [facility] Comment on above: Performed By: #### C BC, CMP ####[facility] [address] [place] [address] Protein [Mass/Vol] 5.9 g/dL Low 6.3-8.0 [facility] Comment on above: Performed By: #### C BC, CMP ####[facility] [address] [place] [address] Sodium [Moles/Vol] 135 mmol/L Low 136-144 [facility] Comment on above: Performed By: #### C BC, CMP ####[facility] [address] [place] [address] Urea nitrogen [Mass/Vol] 29 mg/dL High 9-24 [facility] Comment on above: Performed By: #### C BC, CMP ####[facility] [address] [place] [address] FAT, FECAL QUALon 03-02-2021 FAT, FECAL NEUTRAL Normal Normal [facility] Comment on above: Performed By: #### F FATQL ####[facility] [place] [address] [phone] FAT, FECAL SPLIT Normal Normal Normal [facility] Comment on above: Result Comment: (NOT E) INTERPRETIVE INFORMATION: Fecal Fat Qualitative Neutral fats include the monoglycerides, diglycerides, and triglycerides while split fats are the free fatty acids that are liberated from them. Impaired synthesis or secretion of pancreatic enzymes or bile may cause an increase in neutral fats while an increase in split fats suggests impaired absorption of nutrients. Performed By: [facility] [address] [place] [address] Chief Nurse Anesthetist: Chelsy Griffith MD Performed By: #### F FATQL ####[facility] [address] [place], [place] [phone] Fecal Lactoferrinon 03-02-20 Fecal Lactoferrin Sp. Request/Comment: - Specimen received in sterile container. Test Result - Positive for lactoferrin, which may indicate presence of fecal white blood cells Critically abnormal [facility] Comment on above: Performed By: #### S TLWBC ####[facility] [address] [place], [place] [address]U[facility]iwsrs[facility] [address] [place], [place] [phone] HISTORY PHYSICALon HISTORY PHYSICAL HNO ID: [id number] Author: Alyssa Vasquez MD Service: Hospital Medicine Author Type: Physician Type: HANDP Filed: 03/01/2021 11:03 PM Note Text: DEPARTMENT OF HOSPITAL MEDICINE HISTORY AND PHYSICAL EXAM SERVICE DATE: 03/01/2021 SERVICE TIME: 10:46 PM Primary Care Physician: Walter Loya MD NIGHT AND WEEKEND COVERAGE: AROMAS COVERAGE: Days: [phone], please page attending physician. Nights: [phone], please page [facility] Hospitalist Night coverage pager [phone]. Subjective CHIEF COMPLAINT: Worsening of diarrhea HPI: This is a 86 year old male with PMH of HTN, AAA, HLD and collagenous colitis who presented to ED due to worsening of his diarrhea. He has diarrhea off / On since Sep while he was in [place]. He saw GI and PCP in [place] without much improvement. Over last few weeks he has noticed worsening of diarrhea with multiple loose BM. He was seen in ED on 02/24/21. Work up with CT ABD and Stool studies were negative. He went to Urgent care on 02/27 for concern of dehydration. He presented to ED due to weakness, fatigue and no improvement in symptoms. C/O abdominal aches but denies localized abdominal pain. No nausea. One episode of vomiting yesterday. He has lost about 20 pounds in last 6 months. He was diagnosed with Collagenous colitis in 2007 which improved with Entocort. He had similar episode of diarrhea last year while in [place] but that resolved with few weeks. Has tried budesonide and Questran in last month without much improvement. Last Colonoscopy in 2007. In ED work up showed creatinine 1.49 and Na 126. He is being admitted for further evaluation of diarrhea. PAST MEDICAL HISTORY Diagnosis Date - Abdominal aortic aneurysm without rupture (HCC) 03/11/[address] Singh - Benign prostatic hyperplasia with urinary hesitancy 12/13/2019 Had 10h of urinary retention, Voided x2 since chang removed but small volume Begun on flomax 12/11 Obtain postvoid residual to ensure no overflow incontinence - Bilateral carotid artery stenosis 08/20/2018 - Celiac disease 08/31/2010 - Dermatophytosis of nail - Diarrhea - Disorders of bursae and tendons in shoulder region, unspecified 09/08/2013 - Diverticulosis of large intestine - Elevated hemoglobin A1c 02/10/2021 - Hypertension, essential 02/02/2018 - Internal hemorrhoids without mention of complication 05/05/2008 - Medicare annual wellness visit, subsequent 02/08/2017 Medicare part B: 09/25/2012 last done: 03/27/2019 - Mixed hyperlipidemia 11/30/2010 - Neck pain, chronic 04/25/2017 - Peripheral vascular disease (HCC) 02/25/2016 - Stage 3a chronic kidney disease (HCC) 02/10/2021 - Vitamin D deficiency 04/06/2009 PAST SURGICAL HISTORY Procedure Laterality Date - ABD AORTA ANEURYSM REPAIR 11/2019 - COLONOSCOP W/ OR W/O [facility] SPEC 03/23/2004 Colonoscopy - COLONOSCOP W/ OR W/O [facility] SPEC 05/05/2008 Colonoscopy, repeat 10 yrs - PAST SURGICAL HISTORY OF 04/14/2004 excision of lesion neck - PAST SURGICAL HISTORY OF 02/21/1992 lesion removed from rectum FAMILY HISTORY Problem Relation Age of Onset - Stroke Father - other (lupus) Sister - Diabetes Brother - Diabetes Brother Social History Tobacco Use - Smoking status: Never Smoker - Smokeless tobacco: Never Used Substance Use Topics - Alcohol use: No - Drug use: Never PRIOR TO ADMISSION MEDICATIONS: cholecalciferol (VITAMIN D-3) 5,000 unit tab, Take 1 tablet by mouth once daily., Disp: , Rfl: , 03/01/2021 at Unknown time ZINC ORAL, Take 50 mg by mouth once daily., Disp: , Rfl: , 03/01/2021 at Unknown time metoprolol tartrate, short acting, (LOPRESSOR) 50 mg tablet, Take 1 tablet by mouth twice daily., Disp: 60 tablet, Rfl: , 03/01/2021 at Unknown time TESTOSTERONE, BULK, MISC, Cream, Disp: , Rfl: , Unknown at Unknown time CYANOCOBALAMIN, VITAMIN B-12, (VITAMIN B-12 ORAL), Take by mouth once daily., Disp: , Rfl: , 03/01/2021 at Unknown time Aspirin 81 mg tab, Take 1 tablet by mouth once daily., Disp: , Rfl: 0, 03/01/2021 at Unknown time triamcinolone (KENALOG IN ORABASE) 0.1 % paste, Apply to affected areas 2-3 times a day., Disp: 15 g, Rfl: 1, Unknown at Unknown time iv contrast (will be provided with radiology test), CT Chest W -Inject, intravenously, once for 1 dose.No IV access, insert saline lock prior to the beginning of sedation, infusion, injection of imaging exam. Discontinue saline lock post exam. If Pt. has a central line or IVAD, may access for administration according to line specific nursing protocol. Once exam is complete flush line and de-access according to line specific nursing protocol in the CT contrast administration guidelines link., Disp: 1 Each, Rfl: 0, Unknown at Unknown time homeopathic drugs (PROSTATE ORAL), , Disp: , Rfl: , Unknown at Unknown time cholestyramine (QUESTRAN) 4 gram packet, 1 PACKET MIXED WITH WATER OR NON CARBONATED DRINK TWICE A DAY ORALLY 30 DAY(S), Disp: , Rfl: , Unknown at Unknown erika (more content not included)... [facility] NURSING PROGon 03-02-2021 NURSING PROG HNO ID: [id number] Author: Chantell Chadwick RN Service: ? Author Type: Registered Nurse Type: Nursing Progress Note Filed: 03/02/2021 11:02 AM Note Text: Nursing Progress Note Patient Name: Sergo Suárez Headings Patient Location: [facility] [place] [place] Daily Note:0750: K+ 3.3; message sent to Dr. Pierce. 0800: Dr. Pierce rounds; orders received. 0830: IV Mg hung; pt resting easy in bed. 1000: K+ IV infusing; GI group in to see pt. 1100: stool specimens obtained; bladder scan=70ml; result messaged to Dr. Pierce. This note was completed by: Chantell Chadwick [facility] NUTRITIONon 03-02-2021 NUTRITION HNO ID: [id number] Author: Martha Slaughter RD Service: Nutrition Therapy Author Type: Registered Dietitian Type: Nutrition Filed: 03/02/2021 10:28 AM Note Text: INITIAL ASSESSMENT SERVICE DATE: 03/02/2021 SERVICE TIME: 9:15 am Nutrition Assessment: Recommended Malnutrition Diagnosis: Severe Protein-Calorie Malnutrition In the context of: Chronic Illness or Injury Based on: Unintentional Weight Loss;Insufficient Energy Intake Estimated kilocalorie needs: 4965-3986 Calorie Calculation Method: 25-35 kcals/kg Estimated protein needs 90-100 grams Grams protein determined by: 1.2 - 1.6 g/kg Care Plan: Monitor clinical findings with a goal to advance diet.. Monitor intake. Reviewed physician progress notes and labs. Nutrition Monitor- 75% of estimated needs HPI: Chelsy Melissa APRN.BUILDING SPECIALIST 1- Acute on chronic diarrhea 2- IZZY on CKD / dehydration / hyponatremia past medical history significant for collagenous colitis (2007), celiac disease (per patient, no bx done to confirm), lactose intolerance, hypertension, hyperlipidemia, peripheral vascular disease, chronic kidney disease who presented with diarrhea Intake History: Nutrition Intake Prior to Admission: Less than 75% estimated energy needs greater than or equal to 1 month Diet Orders (From admission, onward) Start Ordered 03/02/21 1000 DIET LIQUID START NOW Question: Liquid Diet Answer: CLEAR LIQUID 03/02/21 0949 Anthropometrics: Height: 172.7 cm (5' 8 ) Weight: 60.9 kg (134 lb 3.2 oz) Dosing Weight: 70 kg (154 lb 5.2 oz) Body mass index is 20.41 kg/m?. Weight change percentage over time: 9% weight loss past 3 months Physical Exam: Reason NFPE not performed: Potential for discomfort GI Symptoms: Diarrhea Potential Signs of Inflammation: Chronic condition MNT Billing Type: Initial Assess/15 min 1 unit SIGNATURE: Martha Slaughter RD PATIENT NAME: Sergo Suárez Headings DATE: March 02, 2021 TIME: 10:24 AM [facility] Occult Blood Screenon 2020 Occult Blood Screen Negative Normal [facility] Comment on above: Performed By: #### O BSCN ####[facility] [address] [place] [address] Occult Blood Source: Stool Normal [facility] Comment on above: Performed By: #### O BSCN ####[facility] [address] [place] [address] Ova and Parasite Scron 03-02 Ova and Parasite Scr Sp. Request/Comment : - Specimen received in Ova and Parasite Kit. Culture Result - Negative for Giardia lamblia and Cryptosporidium species by EIA. [facility] Comment on above: Performed By: #### O VAPSC ####[facility] [place], [place] [phone] CBC and Differentialon 03-01 Abs Baso <0.03 Normal <0.11 [facility] Comment on above: Performed By: #### C MP, LIPA, MG1, CBCDIF ####[facility] [address] [place] [address] Abs Eosin <0.03 Normal <0.46 [facility] Comment on above: Performed By: #### C MP, LIPA, MG1, CBCDIF ####[facility] [address] [place] [address] Abs Appling 1.00 k/uL High <0.87 [facility] Comment on above: Performed By: #### C MP, LIPA, MG1, CBCDIF ####[facility] [address] [place] [address] Abs Neut 4.14 k/uL Normal 1.45-7.50 [facility] Comment on above: Performed By: #### C MP, LIPA, MG1, CBCDIF ####[facility] [address] [place] [address] Absolute nRBC <0.01 Normal <0.01 [facility] Comment on above: Performed By: #### C MP, LIPA, MG1, CBCDIF ####[facility] [address] [place] [address] Basophils/100 WBC (Bld) 0.3 % [facility] Comment on above: Performed By: #### C MP, LIPA, MG1, CBCDIF ####[facility] [address] [place] [address] DTYPE Auto Diff Normal [facility] Comment on above: Performed By: #### C MP, LIPA, MG1, CBCDIF ####[facility] [address] [place] [address] Eosinophils/100 WBC (Bld) 0.2 % [facility] Comment on above: Performed By: #### C MP, LIPA, MG1, CBCDIF ####[facility] [address] [place] [address] Erythrocyte distribution width (RBC) [Ratio] 14.5 % Normal 11.5-15.0 [facility] Comment on above: Performed By: #### C MP, LIPA, MG1, CBCDIF ####[facility] [address] [place] [address] Hematocrit (Bld) [Volume fraction] 37.9 % Low 39.0-51.0 [facility] Comment on above: Performed By: #### C MP, LIPA, MG1, CBCDIF ####[facility] [address] [place] [address] Hemoglobin (Bld) [Mass/Vol] 12.8 g/dL Low 13.0-17.0 [facility] Comment on above: Performed By: #### C MP, LIPA, MG1, CBCDIF ####[facility] [address] [place] [address] Lymphocytes (Bld) [#/Vol] 1.12 10*3/uL Normal 1.00-4.00 [facility] Comment on above: Performed By: #### C MP, LIPA, MG1, CBCDIF ####[facility] [address] [place] [address] Lymphocytes/100 WBC (Bld) 17.7 % [facility] Comment on above: Performed By: #### C MP, LIPA, MG1, CBCDIF ####[facility] [address] [place] [address] MCH 30.0 pG Normal 26.0-34.0 [facility] Comment on above: Performed By: #### C MP, LIPA, MG1, CBCDIF ####[facility] [address] [place] [address] MCHC (RBC) [Mass/Vol] 33.8 g/dL Normal 30.5-36.0 [facility] Comment on above: Performed By: #### C MP, LIPA, MG1, CBCDIF ####[facility] [address] [place] [address] MCV (RBC) [Entitic vol] 88.8 fL Normal 80.0-100.0 [facility] Comment on above: Performed By: #### C MP, LIPA, MG1, CBCDIF ####[facility] [address] [place] [address] Monocytes/100 WBC (Bld) 15.8 % Normal [facility] Comment on above: Performed By: #### C MP, LIPA, MG1, CBCDIF ####[facility] [address] [place] [address] Neutrophils/100 WBC (Bld) 66.0 % Normal [facility] Comment on above: Performed By: #### C MP, LIPA, MG1, CBCDIF ####[facility] [address] [place] [address] NRBCs 0.0 /100 WBC Normal 0 [facility] Comment on above: Performed By: #### C MP, LIPA, MG1, CBCDIF ####[facility] [address] [place] [address] Platelet mean volume (Bld) [Entitic vol] 10.2 fL Normal 9.0-12.7 [facility] Comment on above: Performed By: #### C MP, LIPA, MG1, CBCDIF ####[facility] [address] [place] [address] Platelets (Bld) [#/Vol] 192 10*3/uL Normal 150-400 [facility] Comment on above: Performed By: #### C MP, LIPA, MG1, CBCDIF ####[facility] [address] [place] [address] RBC (Bld) [#/Vol] 4.27 10*6/uL Normal 4.20-6.00 [facility] Comment on above: Performed By: #### C MP, LIPA, MG1, CBCDIF ####[facility] [address] [place] [address] WBC (Bld) [#/Vol] 6.31 10*3/uL Normal 3.70-11.00 [facility] Comment on above: Performed By: #### C MP, LIPA, MG1, CBCDIF ####[facility] [address] [place] [address] Comp Metabolic Panelon 03-01 Albumin [Mass/Vol] 3.7 g/dL Low 3.9-4.9 [facility] Comment on above: Performed By: #### C MP, LIPA, MG1, CBCDIF ####[facility] [address] [place] [address] ALP [Catalytic activity/Vol] 62 U/L Normal 38-113 [facility] Comment on above: Performed By: #### C MP, LIPA, MG1, CBCDIF ####[place] [address] ALT [Catalytic activity/Vol] 13 U/L Normal 10-54 [facility] Comment on above: Performed By: #### C MP, LIPA, MG1, CBCDIF ####[facility] [address] [place] [address] Anion gap [Moles/Vol] 14 mmol/L Normal 9-18 [facility] Comment on above: Performed By: #### C MP, LIPA, MG1, CBCDIF ####[facility] [address] [place] [address] AST [Catalytic activity/Vol] 13 U/L Low 14-40 [facility] Comment on above: Performed By: #### C MP, LIPA, MG1, CBCDIF ####[facility] [address] Bilirubin [Mass/Vol] 0.6 mg/dL Normal 0.2-1.3 [facility] Comment on above: Performed By: #### C MP, LIPA, MG1, CBCDIF ####[facility] [address] [place] [address] Calcium [Mass/Vol] 9.1 mg/dL Normal 8.5-10.2 [facility] Comment on above: Performed By: #### C MP, LIPA, MG1, CBCDIF ####[facility] [address] [place] [address] Chloride [Moles/Vol] 89 mmol/L Low 97-105 [facility] Comment on above: Performed By: #### C MP, LIPA, MG1, CBCDIF ####[facility] [address] [place] [address] CO2 [Moles/Vol] 23 mmol/L Normal 22-30 [facility] Comment on above: Performed By: #### C MP, LIPA, MG1, CBCDIF ####[facility] [address] [place] [address] Creatinine [Mass/Vol] 1.49 mg/dL High 0.73-1.22 [facility] Comment on above: Performed By: #### C MP, LIPA, MG1, CBCDIF ####[facility] [address] [place] [address] eGFR- Amer. 54 Normal [facility] Comment on above: Performed By: #### C MP, LIPA, MG1, CBCDIF ####[facility] [address] [place] [address] eGFR-All Other Races 45 . Normal [facility] Comment on above: Result Comment: eGFR (Estimated GFR) Units of measure: mL/min/1.73 meters squared eGFR is derived from the reexpressed MDRD Study equation using the following parameters: serum creatinine, age, gender and race. The creatinine assay has been calibrated to be traceable to IDMS. An eGFR <60 mL/min/1.73m2 for >3 months is consistent with chronic kidney disease. Refer to KDOQI guidelines for clinical interpretation. In patients with unstable renal function, e.g. those with acute kidney injury, the eGFR may not accurately reflect actual GFR. Performed By: #### C MP, LIPA, MG1, CBCDIF ####[facility] [address] Glucose [Mass/Vol] 102 mg/dL High 74-99 [facility] Comment on above: Result Comment: The [place] Diabetes Association (ADA) provides guidance for cutoff values for fasting glucose and random glucose. The ADA defines fasting as no caloric intake for at least 8 hours. Fasting plasma glucose results between 100 to 125 mg/dL indicate increased risk for diabetes (prediabetes). Fasting plasma glucose results greater than or equal to 126 mg/dL meet the criteria for diagnosis of diabetes. In the absence of unequivocal hyperglycemia, results should be confirmed by repeat testing. In a patient with classic symptoms of hyperglycemia or hyperglycemic crisis, random plasma glucose results greater than or equal to 200 mg/dL meet the criteria for diagnosis of diabetes. Reference: Standards of Medical Care in Diabetes 2016, [place] [employer]. Diabetes Care. 2016.39(Suppl 1). Performed By: #### C MP, LIPA, MG1, CBCDIF ####[facility] [address] [place] [id number] Potassium [Moles/Vol] 3.6 mmol/L Low 3.7-5.1 [facility] Comment on above: Performed By: #### C MP, LIPA, MG1, CBCDIF ####[facility] [address] Protein [Mass/Vol] 7.0 g/dL Normal 6.3-8.0 [facility] Comment on above: Performed By: #### C MP, LIPA, MG1, CBCDIF ####[facility] [address] Sodium [Moles/Vol] 126 mmol/L Low 136-144 [facility] Comment on above: Performed By: #### C MP, LIPA, MG1, CBCDIF ####[facility] [address] [place] [phone] Urea nitrogen [Mass/Vol] 34 mg/dL High 9-24 [facility] Comment on above: Performed By: #### C MP, LIPA, MG1, CBCDIF ####[facility] [address] [place] [phone] ED NOTEon 03-01-2021 ED NOTE HNO ID: [id number] Author: Betsey Vera RN Service: ? Author Type: Registered Nurse Type: ED Notes Filed: 03/01/2021 9:08 PM Note Text: Pt was transported Per wheelchair to his hospital room per [facility] ED NOTE HNO ID: [id number] Author: Betsey Vera RN Service: ? Author Type: Registered Nurse Type: ED Notes Filed: 03/01/2021 8:59 PM Note Text: Pt report was called to [facility] ED NOTE HNO ID: [id number] Author: Betsey Vera RN Service: ? Author Type: Registered Nurse Type: ED Notes Filed: 03/01/2021 8:53 PM Note Text: Pt and are updated of [facility] assignment [facility] ED NOTE HNO ID: [id number] Author: Betsey Vera RN Service: ? Author Type: Registered Nurse Type: ED Notes Filed: 03/01/2021 7:53 PM Note Text: Pt was swabbed for the dumont virus Sent to the lab per [facility] ED NOTE HNO ID: [id number] Author: Betsey Vera RN Service: ? Author Type: Registered Nurse Type: ED Notes Filed: 03/01/2021 7:35 PM Note Text: is bedside [facility] ED NOTE HNO ID: [id number] Author: Betsey Vera RN Service: ? Author Type: Registered Nurse Type: ED Notes Filed: 03/01/2021 7:34 PM Note Text: Pt has ambulated to the bathroom Gait is steady [facility] ED NOTE HNO ID: [id number] Author: Betsey Vera RN Service: ? Author Type: Registered Nurse Type: ED Notes Filed: 03/01/2021 7:06 PM Note Text: pts is bedside [facility] ED NOTE HNO ID: [id number] Author: Shawn Griffith RN Service: ? Author Type: Registered Nurse Type: ED Notes Filed: 03/01/2021 4:03 PM Note Text: Pt presents with diarrhea since Monday. Sts he wa sseen here last for dehydration and again over the weekend by urgent care. Pt denies pain. Normal [facility] ED PROV NOTEon 03-01-2021 ED PROV NOTE HNO ID: [id number] Author: Jesenia Soria MD Service: ? Author Type: Physician Type: ED Provider Notes Filed: 03/01/2021 9:53 PM Note Text: ED Provider Note Patient Name: Sergo Suárez Headings SERVICE DATE: 03/01/21 History Patient presents with: Diarrhea: since september 86-year-old male, with a history of celiac disease, lactose intolerance, hypertension, hyperlipidemia, peripheral vascular disease, chronic kidney disease, presents to the ED with continued diarrhea and concern for dehydration. The patient was evaluated here last week with diarrhea. He had a normal-appearing CT and his labs are baseline. He had a negative C. difficile and bacteria stool. He was then seen over the weekend at urgent care and he states that he gave a stool study for ova and parasite however it has not returned yet. He is very concerned about dehydration and weakness. He states he is lost 20 pounds. He has a history of diarrhea such as this a couple of years ago in [place] and states that he drank some type of white liquid that he believes was an antibiotic and his issues went away. He does follow with GI regularly for history of celiac's disease and lactose intolerance. PAST MEDICAL HISTORY Diagnosis Date - Abdominal aortic aneurysm without rupture (HCC) 03/11/[address] Singh - Benign prostatic hyperplasia with urinary hesitancy 12/13/2019 Had 10h of urinary retention, Voided x2 since chang removed but small volume Begun on flomax 12/11 Obtain postvoid residual to ensure no overflow incontinence - Bilateral carotid artery stenosis 08/20/2018 - Celiac disease 08/31/2010 - Dermatophytosis of nail - Diarrhea - Disorders of bursae and tendons in shoulder region, unspecified 09/08/2013 - Diverticulosis of large intestine - Elevated hemoglobin A1c 02/10/2021 - Hypertension, essential 02/02/2018 - Internal hemorrhoids without mention of complication 05/05/2008 - Medicare annual wellness visit, subsequent 02/08/2017 Medicare part B: 09/25/2012 last done: 03/27/2019 - Mixed hyperlipidemia 11/30/2010 - Neck pain, chronic 04/25/2017 - Peripheral vascular disease (HCC) 02/25/2016 - Stage 3a chronic kidney disease (HCC) 02/10/2021 - Vitamin D deficiency 04/06/2009 PAST SURGICAL HISTORY Procedure Laterality Date - ABD AORTA ANEURYSM REPAIR 11/2019 - COLONOSCOP W/ OR W/O BRSH SPEC 03/23/2004 Colonoscopy - COLONOSCOP W/ OR W/O BRSH SPEC 05/05/2008 Colonoscopy, repeat 10 yrs - PAST SURGICAL HISTORY OF 04/14/2004 excision of lesion neck - PAST SURGICAL HISTORY OF 02/21/1992 lesion removed from rectum FAMILY HISTORY Problem Relation Age of Onset - Stroke Father - other (lupus) Sister - Diabetes Brother - Diabetes Brother Social History Tobacco Use - Smoking status: Never Smoker - Smokeless tobacco: Never Used Substance and Sexual Activity - Alcohol use: No - Drug use: Never - Sexual activity: Not on file ALLERGIES Allergen Reactions - Gluten Diarrhea Upset stomach Gas build up Review of Systems Constitutional: Positive for activity change and appetite change. Negative for chills and fever. HENT: Negative. Eyes: Negative for photophobia and visual disturbance. Respiratory: Negative for cough and shortness of breath. Cardiovascular: Negative for chest pain. Gastrointestinal: Positive for abdominal pain (cramping with eating) and diarrhea. Negative for anal bleeding, blood in stool, constipation, nausea and vomiting. Genitourinary: Negative for difficulty urinating, dysuria and flank pain. Musculoskeletal: Negative for back pain. Skin: Negative for rash and wound. Neurological: Positive for weakness. Negative for dizziness, light-headedness, numbness and headaches. Hematological: Negative. Psychiatric/Behaviora l: Negative. Physical Exam BP 132/61 Pulse 68 Temp (Src) 98.4 (Oral) Resp 16 SpO2 98% O2 Therapy: Room Air Physical Exam Vitals and nursing note reviewed. Constitutional: General: He is not in acute distress. Appearance: He is not ill-appearing or toxic-appearing. Comments: appears to not feel well, however non toxic HENT: Head: Normocephalic and atraumatic. Nose: Nose normal. Mouth/Throat: Mouth: Mucous membranes are dry. Pharynx: Oropharynx is clear. Eyes: Extraocular Movements: Extraocular movements intact. Conjunctiva/sclera: Conjunctivae normal. Cardiovascular: Rate and Rhythm: Normal rate and regular rhythm. Pulmonary: Effort: Pulmonary effort is normal. No respiratory distress. Breath sounds: Normal breath sounds. No wheezing. Abdominal: General: There is no distension. Palpations: Abdomen is soft. Tenderness: There is no abdominal tenderness. There is no guarding. Musculoskeletal: General: Normal range of motion. Cervical back: Normal range of motion and neck supple. No rigidity. Skin: General: Skin is warm and dry. Neurological: General: No focal deficit present (more content not included)... Normal [facility] Intermed Rapid COVIDon 03-01 SARS-CoV-2 (COVID-19) RNA JACKELYN+probe Ql (Unsp spec) UPPER RESPIRATORY TRACT SWAB Normal [facility] Comment on above: Performed By: #### I TCOVD ####[place] [id number] [place], [place] [phone] SARS-CoV-2 (COVID-19) RNA JACKELYN+probe Ql (Unsp spec) Negative for COVID19 (SARS CoV2) by RT-PCR or equivalent method. Normal Negative for COVID19 (SARS CoV2) by RT-PCR or equivalent method. [facility] Comment on above: Result Comment: This test was developed and its performance characteristics determined by [facility]'s [facility] [place]. This test has been authorized by FDA under an Emergency Use Authorization (EUA). This test has been validated in accordance with the FDA's Guidance Document Policy for Diagnostics Testing in Laboratories Certified to Perform High Complexity Testing under CLIA prior to Emergency use Authorization for Coronavirus Disease 2019 during the Public Health Emergency issued on November 23, 2019. Test performed by [facility], [facility] [place], [address], [place] [address]. Performed By: #### I TCOVD ####[address] [phone] Lipaseon 03-01-2021 Lipase [Catalytic activity/Vol] 16 U/L Normal 16-61 [facility] Comment on above: Performed By: #### C MP, LIPA, MG1, CBCDIF ####[facility] [address] [place] [phone] Magnesiumon 03-01-2021 Magnesium [Mass/Vol] 1.9 mg/dL Normal 1.7-2.3 [facility] Comment on above: Performed By: #### C MP, LIPA, MG1, CBCDIF ####[facility] [address] [place] [phone] ALLIED HEALTHon 02-25-2021 ALLIED HEALTH HNO ID: [id number] Author: JESSICA Perez Service: Radiology Author Type: Clinical Mortgage Analyst Type: Allied Health Filed: 02/24/2021 10:25 PM Note Text: Radiology Service Progress Note PATIENT NAME: Sergo Suárez Headings DATE OF SERVICE: February 24, 2021 TIME: 10:23 PM PATIENT IDENTITY VERIFICATION COMPLETED USING TWO (2) IDENTIFIERS: Name and Date of confirmed by patient verbally and Name and Date of confirmed by identification band. FALL SCREENING: Has the patient had 2 falls in the last year or 1 fall with injury or currently using an Ambulatory Assistive Device (Walker, Cane, Wheelchair, Crutches, etc.)? Emergency Room Patient: Screened in ED PATIENT GENDER DATA: Male PATIENT RELEVANT IMPLANT DATA REVIEWED: Not Applicable RADIOLOGY DEPARTMENT: CT; Exam(s) Completed: Abdomen/Pelvis PERIPHERAL IV DATA: Not applicable SIGNED BY: JESSICA Perez February 24, 2021 10:23 PM Normal [facility] C difficile PCRon 02-25-2021 C difficile PCR Negative Normal [facility] Comment on above: Performed By: #### S TLPCR, CDPCR ####[facility], [place] [phone] CT ABD/PEL WO IVCONon 2020 CT ABD/PEL WO IVCON * * *Final Report* * * DATE OF EXAM: Feb 24 2021 10:26PM [facility] [place]/PEL WO IVCON / PROCEDURE REASON: Abd pain, diverticulitis suspected * * * * Physician Interpretation * * * * EXAMINATION: CT ABDOMEN AND PELVIS WITHOUT IV CONTRAST CLINICAL HISTORY: Abd pain, diverticulitis suspected ABD PAIN/DIARRHEA TECHNIQUE: Non-IV contrast imaging of the abdomen and pelvis was performed using standard technique, scanning from just above the dome of the diaphragm to the symphysis pubis. Unenhanced imaging is limited for the evaluation of some intra-abdominal and pelvic pathology. MQ: CTAPWO_3 Contrast: IV: None : ml of CT Radiation dose: Integrated Dose-length product (DLP) for this visit = 306.75 mGy*cm. CT Dose Reduction Employed: Automated exposure control(AEC) and iterative recon COMPARISON: 10/11/2019. 02/01/2021. RESULT: Abdomen / Pelvis: Liver: Small cyst within right hepatic lobe. Biliary: Unremarkable. Spleen: No splenomegaly. Pancreas: Atrophic with multiple calcifications. Adrenals: No mass. Kidneys: No calculus, hydronephrosis or finding to suggest a cyst or mass in the unenhanced kidney. GI Tract: No bowel dilation. Duodenal diverticulum noted. Lymph Nodes: No lymphadenopathy. Mesentery/peritoneum: No ascites. Retroperitoneum: No mass. Vasculature: Patient status post endovascular repair of a infrarenal aortic aneurysm with associated bilateral iliac stents. Aneurysm measures 5.8 x 6 cm. Pelvis: No mass or ascites. Bones/Soft Tissues: No acute abnormality. Lower thorax: Bibasilar subsegmental atelectasis. Linear scarring at left base. Mortising Machine Operator (topogram) images: No additional findings. IMPRESSION: No acute findings. Status post endovascular stent repair of infrarenal abdominal aortic aneurysm with extension into the bilateral common iliac arteries. Aneurysm measures 5.8 x 6 cm, which is slightly smaller compared to prior when it measured 6.4 x 5.7 cm. [facility] Transcribe Date/Time: Feb 24 2021 11:10P Dictated by : CESAR HIGGINBOTHAM MD This examination was interpreted and the report reviewed and electronically signed by: CESAR HIGGINBOTHAM MD on Feb 24 2021 11:23PM EST [id number] [facility] ED NOTEon 02-25-2021 ED NOTE HNO ID: [id number] Author: Richelle Rodriguez RN Service: Nursing Author Type: Registered Nurse Type: ED Notes Filed: 02/24/2021 11:58 PM Note Text: VSS, IV removed. Patient and are aware of discharge instructions, follow up with PCP and GI. They are aware that stool cultures are pending and will be notified if a positive result occurs. Ambulated to leave ER in stable condition. Thankful for care at time of departure. [facility] ED NOTE HNO ID: [id number] Author: Richelle Rodriguez RN Service: Nursing Author Type: Registered Nurse Type: ED Notes Filed: 02/24/2021 11:40 PM Note Text: dano Leon departs from room. [facility] ED NOTE HNO ID: [id number] Author: Maged Dye RN Service: Nursing Author Type: Registered Nurse Type: ED Notes Filed: 02/24/2021 11:28 PM Note Text: report given to Richelle KABA [facility] Enteric Bact Pnl PCRon 02-25 Campy jejun/coli DNA Not detected Normal [facility] Comment on above: Performed By: #### S TLPCR, CDPCR ####[place] [phone] Salmonella spp. DNA Not detected [facility] Comment on above: Performed By: #### S TLPCR, CDPCR ####[facility] [place], [place] [phone] Shiga toxin gene(s) Not detected [facility] Comment on above: Performed By: #### S TLPCR, CDPCR ####[place] [phone] Shigella/EIEC DNA Not detected [facility] Comment on above: Performed By: #### S TLPCR, CDPCR ####[place] [phone] Urinalysison 02-25-2021 Bilirubin, Urine Negative Normal Negative [facility] Comment on above: Performed By: #### U A, UAMIC ####[facility] [address] [place], [place] [phone] Clarity (U) Clear Normal Clear [facility] Comment on above: Performed By: #### U A UAMIC ####[facility] [address] [place], [place] [phone] Color (U) Yellow Normal Yellow [facility] Comment on above: Performed By: #### U A, UAMIC ####[facility] [address] [place] [address] Glucose Ql (U) Negative Normal Negative [facility] Comment on above: Performed By: #### U A, UAMIC ####[facility] [address] [place] [address] Hemoglobin/Blood,Ur Trace Critically abnormal Negative [facility] Comment on above: Performed By: #### U A, UAMIC ####[facility] [address] [place] [address] Ketones Ql (U) Negative Normal [facility] Comment on above: Performed By: #### U A, UAMIC ####[facility] [address] [place] [address] Leukest Negative Normal [facility] Comment on above: Performed By: #### U A, UAMIC ####[facility] [address] [place] [address] Nitrite Ql (U) Negative Normal [facility] Comment on above: Performed By: #### U A, UAMIC ####[facility] [address] [place] [address] pH (U) 6.0 [pH] Normal 5.0-8.0 [facility] Comment on above: Performed By: #### U A, UAMIC ####[place] [address] Protein, Urine Negative Normal [facility] Comment on above: Performed By: #### U A, UAMIC ####[facility] [address] [place] [address] Specific [place], Ur 1.010 Normal 1.005-1.030 [facility] Comment on above: Performed By: #### U A, UAMIC ####[facility] [address] [place] [address] Urobilinogen Qn (U) 0.2 {Fariha'U}/dL Normal 0.2-1.0 [facility] Comment on above: Performed By: #### U A, UAMIC ####[facility] [address] [place] [phone] Urine Microscopic (FOR LAB U SE ONLY)on 02-25-2021 Cast SEE COMMENT Normal 0 [facility] Comment on above: Result Comment: 0 Performed By: #### U A, UAMIC ####[facility] [address] [place] [address] Epithelial cells LM Ql (Urine sed) SEE COMMENT Normal [facility] Comment on above: Result Comment: 0-5 Squamous Epithelial Cells Performed By: #### U A, UAMIC ####[facility] [address] [place] [address] RBC 0-3 Normal 0-3 [facility] Comment on above: Performed By: #### U A, UAMIC ####[facility] [address] [place] [address] WBC 0-5 Normal 0-5 [facility] Comment on above: Performed By: #### U A, UAMIC ####[facility] [address] [place] [address] CBC and Differentialon 02-24 Abs Baso <0.03 Normal <0.11 [facility] Comment on above: Performed By: #### L IPA, CBCDIF, CMP, MG1 ####[facility] [address] [place] [address] Abs Eosin <0.03 Normal <0.46 [facility] Comment on above: Performed By: #### L IPA, CBCDIF, CMP, MG1 ####[place] [address] Abs Appling 1.11 k/uL High <0.87 [facility] Comment on above: Performed By: #### L IPA, CBCDIF, CMP, MG1 ####[facility] [address] [place] [address] Abs Neut 4.91 k/uL Normal 1.45-7.50 [facility] Comment on above: Performed By: #### L IPA, CBCDIF, CMP, MG1 ####[facility] [address] [place] [address] Absolute nRBC <0.01 Normal <0.01 [facility] Comment on above: Performed By: #### L IPA, CBCDIF, CMP, MG1 ####[place] [address] Basophils/100 WBC (Bld) 0.3 % [facility] Comment on above: Performed By: #### L IPA, CBCDIF, CMP, MG1 ####[place] [address] DTYPE Auto Diff Normal [facility] Comment on above: Performed By: #### L IPA, CBCDIF, CMP, MG1 ####[place] [address] Eosinophils/100 WBC (Bld) 0.3 % [facility] Comment on above: Performed By: #### L IPA, CBCDIF, CMP, MG1 ####[place] [address] Erythrocyte distribution width (RBC) [Ratio] 15.5 % High 11.5-15.0 [facility] Comment on above: Performed By: #### L IPA, CBCDIF, CMP, MG1 ####[place] [address] Hematocrit (Bld) [Volume fraction] 39.1 % Normal 39.0-51.0 [facility] Comment on above: Performed By: #### L IPA, CBCDIF, CMP, MG1 ####[place] [address] Hemoglobin (Bld) [Mass/Vol] 13.0 g/dL Normal 13.0-17.0 [facility] Comment on above: Performed By: #### L IPA, CBCDIF, CMP, MG1 ####[place] [address] Lymphocytes (Bld) [#/Vol] 1.79 10*3/uL Normal 1.00-4.00 [facility] Comment on above: Performed By: #### L IPA, CBCDIF, CMP, MG1 ####[place] [address] Lymphocytes/100 WBC (Bld) 22.7 % [facility] Comment on above: Performed By: #### L IPA, CBCDIF, CMP, MG1 ####[place] [phone] MCH 30.2 pG Normal 26.0-34.0 [facility] Comment on above: Performed By: #### L IPA, CBCDIF, CMP, MG1 ####[facility] [address] [place] [address] MCHC (RBC) [Mass/Vol] 33.2 g/dL Normal 30.5-36.0 [facility] Comment on above: Performed By: #### L IPA, CBCDIF, CMP, MG1 ####[facility] [address] [place] [address] MCV (RBC) [Entitic vol] 90.7 fL Normal 80.0-100.0 [facility] Comment on above: Performed By: #### L IPA, CBCDIF, CMP, MG1 ####[place] [address] Monocytes/100 WBC (Bld) 14.1 % Normal [facility] Comment on above: Performed By: #### L IPA, CBCDIF, CMP, MG1 ####[facility] [address] [place] [address] Neutrophils/100 WBC (Bld) 62.6 % Normal [facility] Comment on above: Performed By: #### L IPA, CBCDIF, CMP, MG1 ####[place] [address] NRBCs 0.0 /100 WBC Normal 0 [facility] Comment on above: Performed By: #### L IPA, CBCDIF, CMP, MG1 ####[facility] [address] [place] [address] Platelet mean volume (Bld) [Entitic vol] 11.3 fL Normal 9.0-12.7 [facility] Comment on above: Performed By: #### L IPA, CBCDIF, CMP, MG1 ####[facility] [address] [place] [address] Platelets (Bld) [#/Vol] 211 10*3/uL Normal 150-400 [facility] Comment on above: Performed By: #### L IPA, CBCDIF, CMP, MG1 ####[facility] [address] [place] [phone] RBC (Bld) [#/Vol] 4.31 10*6/uL Normal 4.20-6.00 [facility] Comment on above: Performed By: #### L IPA, CBCDIF, CMP, MG1 ####[facility] [address] [place] [address] WBC (Bld) [#/Vol] 7.87 10*3/uL Normal 3.70-11.00 [facility] Comment on above: Performed By: #### L IPA, CBCDIF, CMP, MG1 ####[facility] [address] [place] [address] Comp Metabolic Panelon 02-24 Albumin [Mass/Vol] 3.8 g/dL Low 3.9-4.9 [facility] Comment on above: Performed By: #### L IPA, CBCDIF, CMP, MG1 ####[facility] [address] [place] [address] ALP [Catalytic activity/Vol] 59 U/L Normal 38-113 [facility] Comment on above: Performed By: #### L IPA, CBCDIF, CMP, MG1 ####[facility] [address] [place] [address] ALT [Catalytic activity/Vol] 15 U/L Normal 10-54 [facility] Comment on above: Performed By: #### L IPA, CBCDIF, CMP, MG1 ####[facility] [address] [place] [address] Anion gap [Moles/Vol] 11 mmol/L Normal 9-18 [facility] Comment on above: Performed By: #### L IPA, CBCDIF, CMP, MG1 ####[facility] [address] [place] [address] AST [Catalytic activity/Vol] 15 U/L Normal 14-40 [facility] Comment on above: Performed By: #### L IPA, CBCDIF, CMP, MG1 ####[facility] [address] [place] [address] Bilirubin [Mass/Vol] 0.4 mg/dL Normal 0.2-1.3 [facility] Comment on above: Performed By: #### L IPA, CBCDIF, CMP, MG1 ####[facility] [address] [place] [phone] Calcium [Mass/Vol] 8.9 mg/dL Normal 8.5-10.2 [facility] Comment on above: Performed By: #### L IPA, CBCDIF, CMP, MG1 ####[facility] [address] [place] [phone] Chloride [Moles/Vol] 95 mmol/L Low 97-105 [facility] Comment on above: Performed By: #### L IPA, CBCDIF, CMP, MG1 ####[facility] [address] CO2 [Moles/Vol] 26 mmol/L Normal 22-30 [facility] Comment on above: Performed By: #### L IPA, CBCDIF, CMP, MG1 ####[facility] [address] Creatinine [Mass/Vol] 1.60 mg/dL High 0.73-1.22 [facility] Comment on above: Performed By: #### L IPA, CBCDIF, CMP, MG1 ####[facility] [address] eGFR- Amer. 50 Normal [facility] Comment on above: Performed By: #### L IPA, CBCDIF, CMP, MG1 ####[facility] [address] eGFR-All Other Races 41 . Normal [facility] Comment on above: Result Comment: eGFR (Estimated GFR) Units of measure: mL/min/1.73 meters squared eGFR is derived from the reexpressed MDRD Study equation using the following parameters: serum creatinine, age, gender and race. The creatinine assay has been calibrated to be traceable to IDMS. An eGFR <60 mL/min/1.73m2 for >3 months is consistent with chronic kidney disease. Refer to KDOQI guidelines for clinical interpretation. In patients with unstable renal function, e.g. those with acute kidney injury, the eGFR may not accurately reflect actual GFR. Performed By: #### L IPA, CBCDIF, CMP, MG1 ####[facility] [address] [place] [address] Glucose [Mass/Vol] 144 mg/dL High 74-99 [facility] Comment on above: Result Comment: The [place] [employer] (ADA) provides guidance for cutoff values for fasting glucose and random glucose. The ADA defines fasting as no caloric intake for at least 8 hours. Fasting plasma glucose results between 100 to 125 mg/dL indicate increased risk for diabetes (prediabetes). Fasting plasma glucose results greater than or equal to 126 mg/dL meet the criteria for diagnosis of diabetes. In the absence of unequivocal hyperglycemia, results should be confirmed by repeat testing. In a patient with classic symptoms of hyperglycemia or hyperglycemic crisis, random plasma glucose results greater than or equal to 200 mg/dL meet the criteria for diagnosis of diabetes. Reference: Standards of Medical Care in Diabetes 2016, [place] [employer]. Diabetes Care. 2016.39(Suppl 1). Performed By: #### L IPA, CBCDIF, CMP, MG1 ####[facility] [id number] [place] [address] Potassium [Moles/Vol] 3.4 mmol/L Low 3.7-5.1 [facility] Comment on above: Performed By: #### L IPA, CBCDIF, CMP, MG1 ####[facility] [id number] [place] [address] Protein [Mass/Vol] 7.1 g/dL Normal 6.3-8.0 [facility] Comment on above: Performed By: #### L IPA, CBCDIF, CMP, MG1 ####[facility] [id number] [place] [address] Sodium [Moles/Vol] 132 mmol/L Low 136-144 [facility] Comment on above: Performed By: #### L IPA, CBCDIF, CMP, MG1 ####[facility] [id number] [place] [address] Urea nitrogen [Mass/Vol] 28 mg/dL High 9-24 [facility] Comment on above: Performed By: #### L IPA, CBCDIF, CMP, MG1 ####[facility] [id number] [place] [address] ED NOTEon 02-24-2021 ED NOTE HNO ID: [id number] Author: Maged Dye RN Service: Nursing Author Type: Registered Nurse Type: ED Notes Filed: 02/24/2021 9:28 PM Note Text: Pt aware that urine and stool sample is needed, urinal and bedside commode in the room. Warm blankets provided, pt denies any needs. [facility] ED NOTE HNO ID: [id number] Author: Richelle Rodriguez RN Service: Nursing Author Type: Registered Nurse Type: ED Notes Filed: 02/24/2021 8:58 PM Note Text: Patient presents to ER with complaints of diarrhea since September. He has a history of colitis. Last colonoscopy was 12 years ago. He feels dehydrated. [facility] ED PROV NOTEon 02-24-2021 ED PROV NOTE HNO ID: [id number] Author: Carolyn Mckeon PA-C Service: ? Author Type: Physician Winding Machine Operator Type: ED Provider Notes Filed: 02/25/2021 12:22 AM Note Text: ED Provider Note Patient Name: Sergo Suárez Headings SERVICE DATE: 02/24/21 History Patient presents with: Abdominal Pain Diarrhea 86-year-old male with PMH of abdominal aortic aneurysm, PVD, HLD, HTN, CKD, BPH presents for diarrhea and abdominal pain. Patient states that he has been having diarrhea since September on and off. He states that he has a history of colitis. He states that he was diagnosed with this about a year and a half ago when he was staying in [place]. He was given antibiotics. He states that this feels similar. He states that he has been having some worsening diarrhea on abdominal pain over the past few weeks. He reports it is abdominal discomfort . He denies any blood in the stool. He denies being on blood thinners. He denies fever or chills. He denies nausea or vomiting. No chest pain or shortness of breath. He feels like he is dehydrated due to having so much diarrhea. He denies recent antibiotic use. No history of C. difficile. No other complaints. PAST MEDICAL HISTORY Diagnosis Date - Abdominal aortic aneurysm without rupture (HCC) 03/11/[address] Singh - Benign prostatic hyperplasia with urinary hesitancy 12/13/2019 Had 10h of urinary retention, Voided x2 since chang removed but small volume Begun on flomax 12/11 Obtain postvoid residual to ensure no overflow incontinence - Bilateral carotid artery stenosis 08/20/2018 - Celiac disease 08/31/2010 - Dermatophytosis of nail - Diarrhea - Disorders of bursae and tendons in shoulder region, unspecified 09/08/2013 - Diverticulosis of large intestine - Elevated hemoglobin A1c 02/10/2021 - Hypertension, essential 02/02/2018 - Internal hemorrhoids without mention of complication 05/05/2008 - Medicare annual wellness visit, subsequent 02/08/2017 Medicare part B: 09/25/2012 last done: 03/27/2019 - Mixed hyperlipidemia 11/30/2010 - Neck pain, chronic 04/25/2017 - Peripheral vascular disease (HCC) 02/25/2016 - Stage 3a chronic kidney disease (HCC) 02/10/2021 - Vitamin D deficiency 04/06/2009 PAST SURGICAL HISTORY Procedure Laterality Date - ABD AORTA ANEURYSM REPAIR 11/2019 - COLONOSCOP W/ OR W/O BRSH SPEC 03/23/2004 Colonoscopy - COLONOSCOP W/ OR W/O BRSH SPEC 05/05/2008 Colonoscopy, repeat 10 yrs - PAST SURGICAL HISTORY OF 04/14/2004 excision of lesion neck - PAST SURGICAL HISTORY OF 02/21/1992 lesion removed from rectum FAMILY HISTORY Problem Relation Age of Onset - Stroke Father - other (lupus) Sister - Diabetes Brother - Diabetes Brother Social History Tobacco Use - Smoking status: Never Smoker - Smokeless tobacco: Never Used Substance and Sexual Activity - Alcohol use: No - Drug use: Never - Sexual activity: Not on file ALLERGIES Allergen Reactions - Gluten Diarrhea Upset stomach Gas build up Review of Systems Constitutional: Negative for chills and fever. HENT: Negative for congestion. Eyes: Negative for visual disturbance. Respiratory: Negative for cough and shortness of breath. Cardiovascular: Negative for chest pain. Gastrointestinal: Positive for abdominal pain and diarrhea. Negative for nausea and vomiting. Endocrine: Negative for cold intolerance and heat intolerance. Genitourinary: Negative for dysuria, flank pain and hematuria. Musculoskeletal: Negative for arthralgias. Skin: Negative for rash. Neurological: Negative for dizziness and headaches. Psychiatric/Behaviora l: Negative for confusion. Physical Exam BP 159/69 Pulse 63 Temp (Src) 97.8 (Oral) Resp 14 Wt 132 lb 3.2 oz (60.0kg) SpO2 99% O2 Therapy: Room Air Physical Exam Vitals and nursing note reviewed. Constitutional: General: He is not in acute distress. Appearance: Normal appearance. He is not toxic-appearing. HENT: Head: Normocephalic and atraumatic. Nose: Nose normal. Mouth/Throat: Mouth: Mucous membranes are moist. Eyes: Conjunctiva/sclera: Conjunctivae normal. Cardiovascular: Rate and Rhythm: Normal rate and regular rhythm. Pulses: Normal pulses. Heart sounds: Normal heart sounds. Pulmonary: Effort: Pulmonary effort is normal. No respiratory distress. Breath sounds: Normal breath sounds. Abdominal: General: Bowel sounds are normal. Palpations: Abdomen is soft. Tenderness: There is generalized abdominal tenderness. Musculoskeletal: General: Normal range of motion. Cervical back: Normal range of motion. Skin: General: Skin is warm and dry. Capillary Refill: Capillary refill takes less than 2 seconds. Neurological: Mental Status: He is alert and oriented to person, place, and time. Psychiatric: Mood and Affect: Mood normal. Behavior: Behavior normal. Diagnostic Testing ED Labs Ordered and Reviewed COMP METABOLIC PANEL - Abnormal; Notable for t (more content not included)... Normal [facility] Lipaseon 02-24-2021 Lipase [Catalytic activity/Vol] 56 U/L Normal 16-61 [facility] Comment on above: Performed By: #### L IPA, CBCDIF, CMP, MG1 ####[facility] [id number] [place] [id number] Magnesiumon 02-24-2021 Magnesium [Mass/Vol] 1.9 mg/dL Normal 1.7-2.3 [facility] Comment on above: Performed By: #### L IPA, CBCDIF, CMP, MG1 ####[facility] [phone] Vital Signs Date Time Vital Sign Value Performing Clinician Facility 05-20-2024 16:01-0400 Diastolic blood pressure 77 mm[Hg] Kezia Dubose MD Work Phone: [facility] Comment on above: BP Rd average 05-20-2024 16:01-0400 Heart rate 73 /min Kezia Dubose MD Work Phone: [facility] 05-20-2024 16:01-0400 Systolic blood pressure 163 mm[Hg] Kezia Dubose MD Work Phone: [facility] Comment on above: BP Rd average 05-20-2024 15:59-0400 Body mass index (BMI) [Ratio] 21.35 kg/m2 Kezia Dubose MD Work Phone: [facility] 05-20-2024 15:59-0400 Body weight 63.69 kg Kezia Dubose MD Work Phone: [facility] 05-20-2024 15:59-0400 SaO2% (BldA) [Mass fraction] 98 % Kezia Dubose MD Work Phone: [facility] 04-24-2024 14:57-0400 Diastolic blood pressure 64 mm[Hg] Kezia Dubose MD Work Phone: [facility] 04-24-2024 14:57-0400 Heart rate 80 /min Kezia Dubose MD Work Phone: [facility] 04-24-2024 14:57-0400 Respiratory rate 16 /min Kezia Dubose MD Work Phone: [facility] 04-24-2024 14:57-0400 Systolic blood pressure 128 mm[Hg] Kezia Dubose MD Work Phone: [facility] 04-18-2024 12:58-0400 Body mass index (BMI) [Ratio] 22.26 kg/m2 Kezia Dubose MD Work Phone: [facility] 04-18-2024 12:58-0400 Body weight 66.41 kg Kezia Dubose MD Work Phone: [facility] 04-18-2024 12:58-0400 Diastolic blood pressure 62 mm[Hg] Kezia Dubose MD Work Phone: [facility] 04-18-2024 12:58-0400 Heart rate 61 /min Kezia Dubose MD Work Phone: [facility] 04-18-2024 12:58-0400 SaO2% (BldA) [Mass fraction] 98 % Kezia Dubose MD Work Phone: [facility] 04-18-2024 12:58-0400 Systolic blood pressure 118 mm[Hg] Kezia Dubose MD Work Phone: [facility] 03-24-2024 18:30-0400 Diastolic blood pressure 61 mm[Hg] India Woodson RN [facility] Comment on above: Home Monitoring 03-24-2024 18:30-0400 Heart rate 61 /min India Woodson RN [facility] aman Comment on above: Home Monitoring 03-24-2024 18:30-0400 Systolic blood pressure 115 mm[Hg] India Woodson RN [facility] Comment on above: Home Monitoring 02-28-2024 11:46-0400 Body mass index (BMI) [Ratio] 22.22 kg/m2 Kirstie Anguiano DIRECTOR OF HOTEL OPERATIONS.BUILDING SPECIALIST Work Phone: [facility] 02-28-2024 11:46-0400 Body temperature 97.5 [degF] Kirstie Anguiano DIRECTOR OF HOTEL OPERATIONS.BUILDING SPECIALIST Work Phone: [facility] 02-28-2024 11:46-0400 Body weight 66.3 kg Kirstie Anguiano DIRECTOR OF HOTEL OPERATIONS.BUILDING SPECIALIST Work Phone: [facility] 02-28-2024 11:46-0400 Diastolic blood pressure 50 mm[Hg] Kirstie Anguiano DIRECTOR OF HOTEL OPERATIONS.BUILDING SPECIALIST Work Phone: [facility] 02-28-2024 11:46-0400 Heart rate 63 /min Kirstie Anguiano DIRECTOR OF HOTEL OPERATIONS.BUILDING SPECIALIST Work Phone: [facility] 02-28-2024 11:46-0400 Respiratory rate 21 /min Kirstie Anguiano DIRECTOR OF HOTEL OPERATIONS.BUILDING SPECIALIST Work Phone: [facility] 02-28-2024 11:46-0400 SaO2% (BldA) [Mass fraction] 98 % Kirstie Anguiano DIRECTOR OF HOTEL OPERATIONS.BUILDING SPECIALIST Work Phone: [facility] 02-28-2024 11:46-0400 Systolic blood pressure 130 mm[Hg] Kirstie Anguiano DIRECTOR OF HOTEL OPERATIONS.BUILDING SPECIALIST Work Phone: [facility] 02-27-2024 11:13-0400 Body mass index (BMI) [Ratio] 21.44 kg/m2 India Woodson RN [facility] 02-27-2024 11:130400 Body weight 63.96 kg India Woodson RN [facility] aman Comment on above: Home Monitoring 02-27-2024 11:130400 Diastolic blood pressure 52 mm[Hg] India Woodson RN [facility] Comment on above: Home Monitoring 02-27-2024 11:13040 Heart rate 58 /min India Woodson RN [facility] aman Comment on above: Home Monitoring 02-27-2024 11:130400 Systolic blood pressure 117 mm[Hg] India Woodson RN [facility] Comment on above: Home Monitoring 02-06-2024 10:52-0400 Body mass index (BMI) [Ratio] 22.59 kg/m2 Alka Athy PA-C Work Phone: [facility] 02-06-2024 10:52-0400 Body temperature 96.91 [degF] Alka Athy PA-C Work Phone: [facility] 02-06-2024 10:52-0400 Body weight 67.4 kg Alka Athy PA-C Work Phone: [facility] 02-06-2024 10:52-0400 Diastolic blood pressure 60 mm[Hg] Alka Athy PA-C Work Phone: [facility] 02-06-2024 10:52-0400 Heart rate 60 /min Alka Athy PA-C Work Phone: [facility] 02-06-2024 10:52-0400 Respiratory rate 16 /min Alka Athy PA-C Work Phone: [facility] 02-06-2024 10:52-0400 SaO2% (BldA) [Mass fraction] 95 % Alka Athy PA-C Work Phone: [facility] 02-06-2024 10:52-0400 Systolic blood pressure 124 mm[Hg] Alka Athy PA-C Work Phone: [facility] 01-29-2024 13:35-0400 Body height 172.7 cm Kathy Huggins MD Work Phone: [facility] 01-29-2024 13:35-0400 Body mass index (BMI) [Ratio] 21.99 kg/m2 Kathy Huggins MD Work Phone: [facility] 01-29-2024 13:35-0400 Body temperature 97.5 [degF] Kathy Huggins MD Work Phone: [facility] 01-29-2024 13:35-0400 Body weight 65.59 kg aKthy Huggins MD Work Phone: [facility] 01-29-2024 13:35-0400 Diastolic blood pressure 56 mm[Hg] Kathy Huggins MD Work Phone: [facility] 01-29-2024 13:35-0400 Heart rate 61 /min Kathy Huggins MD Work Phone: [facility] 01-29-2024 13:35-0400 SaO2% (BldA) [Mass fraction] 98 % Kathy Huggins MD Work Phone: [facility] 01-29-2024 13:35-0400 Systolic blood pressure 123 mm[Hg] Kathy Huggins MD Work Phone: [facility] 2024 16:17-0400 Body mass index (BMI) [Ratio] 21.9 kg/m2 Kevin Older DIRECTOR OF HOTEL OPERATIONS.BUILDING SPECIALIST Work Phone: [facility] 2024 16:17-0400 Body weight 65.32 kg Kevin Older DIRECTOR OF HOTEL OPERATIONS.BUILDING SPECIALIST Work Phone: [facility] 2024 16:17-0400 Diastolic blood pressure 66 mm[Hg] Kevin Older DIRECTOR OF HOTEL OPERATIONS.BUILDING SPECIALIST Work Phone: [facility] 2024 16:17-0400 Heart rate 56 /min Kevin Older DIRECTOR OF HOTEL OPERATIONS.BUILDING SPECIALIST Work Phone: [facility] 2024 16:17-0400 Respiratory rate 16 /min Kevin Older DIRECTOR OF HOTEL OPERATIONS.BUILDING SPECIALIST Work Phone: [facility] 2024 16:17-0400 SaO2% (BldA) [Mass fraction] 96 % Kevin Older DIRECTOR OF HOTEL OPERATIONS.BUILDING SPECIALIST Work Phone: [facility] 2024 16:17-0400 Systolic blood pressure 132 mm[Hg] Kevin Older DIRECTOR OF HOTEL OPERATIONS.BUILDING SPECIALIST Work Phone: [facility] 2024 11:19-0400 Body mass index (BMI) [Ratio] 21.86 kg/m2 Walter Nuñez MD Work Phone: [facility] 2024 11:19-0400 Body weight 65.2 kg Walter Nuñez MD Work Phone: [facility] 2024 11:19-0400 Diastolic blood pressure 57 mm[Hg] Walter Nuñez MD Work Phone: [facility] 2024 11:19-0400 Heart rate 54 /min Walter Nuñez MD Work Phone: [facility] 2024 11:19-0400 Systolic blood pressure 130 mm[Hg] Walter Nuñez MD Work Phone: [facility] 01-23-2024 11:45-0400 Body mass index (BMI) [Ratio] 21.44 kg/m2 India Woodson RN [facility] 01-23-2024 11:45-0400 Body weight 63.96 kg India Woodson RN [facility] aman Comment on above: Home Monitoring 11-15-2023 11:09-0500 Body weight 67.13 kg [facility] 09-08-2023 18:41-0500 Body weight 68.04 kg India Woodson RN [facility] aman 08-08-2023 09:55-0500 Body weight 68.77 kg Vernell Martinez PA-C Work Phone: [facility] 08-08-2023 09:55-0500 Diastolic blood pressure 64 mm[Hg] Vernell Rodriguezer PA-C Work Phone: [facility] 08-08-2023 09:55-0500 Heart rate 61 /min Vernell Rodriguezer PA-C Work Phone: [facility] 08-08-2023 09:55-0500 Respiratory rate 16 /min Vernell Rodriguezer PA-C Work Phone: [facility] 08-08-2023 09:55-0500 SaO2% (BldA) [Mass fraction] 98 % Vernell Rodriguezer PA-C Work Phone: [facility] 08-08-2023 09:55-0500 Systolic blood pressure 118 mm[Hg] Vernell Rodriguezer PA-C Work Phone: [facility] 06-23-2023 11:43-0400 Body weight 68.55 kg Walter Nuñez MD Work Phone: [facility] 06-23-2023 11:43-0400 Diastolic blood pressure 63 mm[Hg] Walter Nuñez MD Work Phone: [facility] 06-23-2023 11:43-0400 Heart rate 60 /min Walter Nuñez MD Work Phone: [facility] 06-23-2023 11:43-0400 Systolic blood pressure 146 mm[Hg] Walter Nuñez MD Work Phone: [facility] 05-15-2023 13:31-0400 Body height 172.7 cm Kathy Huggins MD Work Phone: [facility] 05-15-2023 13:31-0400 Body temperature 97.81 [degF] Kathy Huggins MD Work Phone: [facility] 05-15-2023 13:31-0400 Body weight 65.77 kg Kathy Huggins MD Work Phone: [facility] 05-15-2023 13:31-0400 Diastolic blood pressure 55 mm[Hg] Kathy Huggins MD Work Phone: [facility] 05-15-2023 13:31-0400 Heart rate 55 /min Kathy Huggins MD Work Phone: [facility] 05-15-2023 13:31-0400 Respiratory rate 20 /min Kathy Huggins MD Work Phone: [facility] 05-15-2023 13:31-0400 SaO2% (BldA) [Mass fraction] 98 % Kathy Huggins MD Work Phone: [facility] 05-15-2023 13:31-0400 Systolic blood pressure 140 mm[Hg] Kathy Huggins MD Work Phone: [facility] 05-03-2023 09:34-0400 Body weight 67.59 kg Vernell Queener PA-C Work Phone: [facility] 05-03-2023 09:34-0400 Diastolic blood pressure 68 mm[Hg] Vernell Queener PA-C Work Phone: [facility] 05-03-2023 09:34-0400 Heart rate 58 /min Vernell Queener PA-C Work Phone: [facility] 05-03-2023 09:34-0400 Respiratory rate 16 /min Vernell Queener PA-C Work Phone: [facility] 05-03-2023 09:34-0400 SaO2% (BldA) [Mass fraction] 99 % Vernell Queener PA-C Work Phone: [facility] 05-03-2023 09:34-0400 Systolic blood pressure 133 mm[Hg] Vernell Queener PA-C Work Phone: [facility] 01-31-2023 13:10-0400 Body height 172.7 cm Kathy Huggins MD Work Phone: [facility] 01-31-2023 13:10-0400 Body temperature 98.01 [degF] Kathy Huggins MD Work Phone: [facility] 01-31-2023 13:10-0400 Body weight 67.13 kg Kathy Huggins MD Work Phone: [facility] 01-31-2023 13:10-0400 Diastolic blood pressure 65 mm[Hg] Kathy Huggins MD Work Phone: [facility] 01-31-2023 13:10-0400 Heart rate 52 /min Kathy Huggins MD Work Phone: [facility] 01-31-2023 13:10-0400 Respiratory rate 20 /min Kathy Huggins MD Work Phone: [facility] 01-31-2023 13:10-0400 SaO2% (BldA) [Mass fraction] 98 % Kathy Huggins MD Work Phone: [facility] 01-31-2023 13:10-0400 Systolic blood pressure 175 mm[Hg] Kathy Huggins MD Work Phone: [facility] 01-30-2023 14:05-0400 Body height 172.7 cm Kezia Dubose MD Work Phone: [facility] 01-30-2023 14:05-0400 Body temperature 97.81 [degF] Kezia Dubose MD Work Phone: [facility] 01-30-2023 14:05-0400 Body weight 67.59 kg Kezia Dubose MD Work Phone: [facility] 01-30-2023 14:05-0400 Diastolic blood pressure 68 mm[Hg] Kezia Dubose MD Work Phone: [facility] 01-30-2023 14:05-0400 Heart rate 56 /min Kezia Dubose MD Work Phone: [facility] 01-30-2023 14:05-0400 Respiratory rate 12 /min Kezia Dubose MD Work Phone: [facility] 01-30-2023 14:05-0400 SaO2% (BldA) [Mass fraction] 96 % Kezia Dubose MD Work Phone: [facility] 01-30-2023 14:05-0400 Systolic blood pressure 140 mm[Hg] Kezia Dubose MD Work Phone: [facility] 08-08-2022 09:16-0500 Body height 172.7 cm Kathy Huggins MD Work Phone: [facility] 08-08-2022 09:16-0500 Body temperature 98.01 [degF] Kathy Huggins MD Work Phone: [facility] 08-08-2022 09:16-0500 Body weight 68.04 kg Kathy Huggins MD Work Phone: [facility] 08-08-2022 09:16-0500 Diastolic blood pressure 68 mm[Hg] Kathy Huggins MD Work Phone: [facility] 08-08-2022 09:16-0500 Heart rate 54 /min Kathy Huggins MD Work Phone: [facility] 08-08-2022 09:16-0500 SaO2% (BldA) [Mass fraction] 99 % Kathy Huggins MD Work Phone: [facility] 08-08-2022 09:16-0500 Systolic blood pressure 167 mm[Hg] Kathy Huggins MD Work Phone: [facility] 06-14-2022 14:14-0400 Body height 172.7 cm Kezia Dubose MD Work Phone: [facility] 06-14-2022 14:14-0400 Body temperature 98.6 [degF] Kezia Dubose MD Work Phone: [facility] 06-14-2022 14:14-0400 Body weight 69.4 kg Kezia Dubose MD Work Phone: [facility] 06-14-2022 14:14-0400 Diastolic blood pressure 56 mm[Hg] Kezia Dubose MD Work Phone: [facility] 06-14-2022 14:14-0400 Heart rate 65 /min Kezia Dubose MD Work Phone: [facility] 06-14-2022 14:14-0400 Respiratory rate 12 /min Kezia Dubose MD Work Phone: [facility] 06-14-2022 14:14-0400 SaO2% (BldA) [Mass fraction] 95 % Kezia Dubose MD Work Phone: [facility] 06-14-2022 14:14-0400 Systolic blood pressure 118 mm[Hg] Kezia Dubose MD Work Phone: [facility] 04-04-2022 14:23-0400 Body height 172.7 cm Kezia Dubose MD Work Phone: [facility] 04-04-2022 14:23-0400 Body temperature 98.01 [degF] Kezia Dubose MD Work Phone: [facility] 04-04-2022 14:23-0400 Body weight 66.68 kg Kezia Dubose MD Work Phone: [facility] 04-04-2022 14:23-0400 Diastolic blood pressure 60 mm[Hg] Kezia Dubose MD Work Phone: [facility] 04-04-2022 14:23-0400 Heart rate 59 /min Kezia Dubose MD Work Phone: [facility] 04-04-2022 14:23-0400 Respiratory rate 12 /min Kezia Dubose MD Work Phone: [facility] 04-04-2022 14:23-0400 SaO2% (BldA) [Mass fraction] 97 % Kezia Dubose MD Work Phone: [facility] 04-04-2022 14:23-0400 Systolic blood pressure 128 mm[Hg] Kezia Dubose MD Work Phone: [facility] 02-14-2022 13:52-0400 Diastolic blood pressure 73 mm[Hg] Osmin Singh MD Work Phone: [facility] 02-14-2022 13:52-0400 Heart rate 56 /min Osmin Singh MD Work Phone: [facility] 02-14-2022 13:52-0400 Systolic blood pressure 170 mm[Hg] Osmin Singh MD Work Phone: [facility] 01-28-2022 10:04-0400 Body weight 65.32 kg Kezia Dubose MD Work Phone: [facility] 01-28-2022 10:04-0400 Diastolic blood pressure 62 mm[Hg] Kezia Dubose MD Work Phone: [facility] 01-28-2022 10:04-0400 Heart rate 60 /min Kezia Dubose MD Work Phone: [facility] 01-28-2022 10:04-0400 Respiratory rate 16 /min Kezia Dubose MD Work Phone: [facility] 01-28-2022 10:04-0400 SaO2% (BldA) [Mass fraction] 98 % Kezia Dubose MD Work Phone: [facility] 01-28-2022 10:04-0400 Systolic blood pressure 124 mm[Hg] Kezia Dubose MD Work Phone: [facility] Encounters Encounter Date Encounter Type Care Provider Facility Start: 06-25-2024 End: 06-25-2024 ambulatory Anthony Barrett MA [facility] Start: 06-25-2024 End: 06-25-2024 Patient encounter procedure Antohny Barrett MA [facility] Comment on above: Population Health Na vigation Outreach (Value Hub) Start: 06-21-2024 End: 07-05-2024 Telephone encounter Kezia Dubose MD Work Phone: Internal Medicine [place] Comment on above: Patient Update (Fmla paperwork) Start: 06-18-2024 End: 06-18-2024 ambulatory Kosta Cha RN Work Phone: Community Engagement Representative Management Comment on above: Initial enrollment o sandie for Chronic Disease Management Start: 06-06-2024 End: 06-06-2024 Telephone encounter Kathy Huggins MD Work Phone: Family Medicine [place] Start: 06-01-2024 End: 06-03-2024 Refill Kezia Dubose MD Work Phone: Internal Medicine [place] Comment on above: Refill Request Start: 05-20-2024 End: 05-20-2024 ambulatory [facility] Facility:[facility] Start: 05-20-2024 End: 05-20-2024 Office outpatient visit 25 minutes Kezia Dubose MD Work Phone: Internal Medicine [place] Comment on above: 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); Weakness of both lower extremities; Anemia, unspecified type; Hypomagnesemia Start: 05-20-2024 End: 05-20-2024 [facility] Facility:[facility] Start: 05-20-2024 End: 05-20-2024 Telephone encounter Kezia Dubose MD Work Phone: Internal Medicine [place] Comment on above: Patient Update Start: 05-15-2024 End: 05-15-2024 ambulatory India Woodson RN Community Engagement Representative Management Comment on above: Community Monitoring Outreach (CDM Telephonic Outreach) Start: 05-10-2024 ambulatory India Woodson RN [facility] Comment on above: Opened In Error (Ope maykel in Error) Start: 04-28-2024 ambulatory Facility:[facility] Start: 04-25-2024 Telephone encounter Kezia moreira MD Work Phone: Internal Medicine [place] Comment on above: Patient Question Start: 04-24-2024 End: 04-24-2024 ambulatory [facility] Facility:[facility] Start: 04-24-2024 End: 04-24-2024 Office outpatient visit 25 minutes Kezia Dubose MD Work Phone: Internal Medicine [place] Comment on above: Delirium, acute (Valerie betsey Dx); Hyponatremia; Prediabetes; Severe protein-calorie malnutrition (HCC); Acute ischemic stroke (HCC); Testosterone deficiency Start: 04-22-2024 Refill Kezia Benavidez Work Phone: Internal Medicine [place] Comment on above: Refill Request Start: 04-18-2024 End: 04-18-2024 [facility] Facility:[facility] Start: 04-18-2024 End: 04-18-2024 Office outpatient visit 25 minutes Kezia Dubose MD Work Phone: Internal Medicine [place] Comment on above: Testosterone deficie ncy (Primary Dx); Mixed hyperlipidemia; Cerebrovascular accident (CVA), unspecified mechanism (HCC); Decreased hearing of both ears; Panic attacks Start: 04-09-2024 End: 04-09-2024 Office outpatient visit 15 minutes Kezia Dubose MD Work Phone: Internal Medicine [place] Comment on above: Testosterone deficie ncy (Primary Dx) Start: 04-09-2024 End: 04-09-2024 [facility] Facility:[facility] Start: 03-27-2024 End: 03-27-2024 [facility] Facility:[facility] Start: 03-25-2024 ambulatory India bueno Care Management Comment on above: Community Monitoring Outreach (CDM Telephonic Outreach) Start: 03-23-2024 Refill Kezia Benavidez Work Phone: Internal Medicine [place] Comment on above: Refill Request Start: 03-01-2024 Telephone encounter Carolyn MCDANIELS Work Phone: [facility] Comment on above: Results Start: 02-28-2024 End: 02-28-2024 [facility] Facility:[facility] Start: 02-28-2024 End: 02-28-2024 Patient encounter procedure Kirstie Anguiano DIRECTOR OF HOTEL OPERATIONS.BUILDING SPECIALIST Work Phone: [facility] Comment on above: Dysuria (Primary Dx) Start: 02-27-2024 ambulatory India bueno Care Management Comment on above: Community Monitoring Outreach (CDM Telephonic Outreach - Second Attempt) Start: 02-23-2024 ambulatory India bueno Care Management Comment on above: Community Monitoring Outreach (CDM Telephonic Outreach - Second Attempt) Start: 02-06-2024 End: 02-06-2024 [facility] Facility:[facility] Start: 02-06-2024 End: 02-06-2024 Patient encounter procedure Vernell Martinez PA-C Work Phone: Neurology Comment on above: 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); Left-sided weakness; Vision loss of left eye Acute UTI (Primary D x) Start: 01-30-2024 ambulatory Kathy Benavidez Work Phone: Functional Medicine Comment on above: After Visit 5/6 Start: 01-30-2024 E-mail encounter jakob norwood caregiver Kathy Huggins MD Work Phone: Functional Medicine Start: 01-29-2024 End: 01-29-2024 [facility] Facility:[facility] Start: 01-29-2024 End: 01-29-2024 Patient encounter procedure Kathy Huggins MD Work Phone: Functional Medicine Comment on above: Irritable bowel synd lucas with diarrhea (Primary Dx); Candidal enteritis Start: 2024 End: 2024 Patient encounter procedure Kevin Bhagat APRN.CNP Work Phone: Internal Medicine [place] Comment on above: Hypertension, essent ial (Primary Dx); Low testosterone Start: 2024 End: 2024 [facility] Facility:[facility] Start: 2024 End: 2024 [facility] Facility:[facility] Start: 2024 End: 2024 Patient encounter procedure Walter Nuñez MD Work Phone: Cardiology Comment on above: Nonrheumatic aortic valve insufficiency, moderate to severe, LVEF 55 to 60%, LVEDD 50 mm. (Primary Dx); Hypertension, essential; Mixed hyperlipidemia; Peripheral vascular disease (HCC); Cerebrovascular accident (CVA), unspecified mechanism (HCC) Start: 01-23-2024 ambulatory India Woodson RN [facility] Management Comment on above: Community Monitoring Outreach (CDM Telephonic Outreach/) Start: 01-23-2024 E-mail encounter fro m caregiver [facility] Provider Community Engagement Representative Management Start: 01-23-2024 Patient encounter procedure [facility] Provider Community Engagement Representative Management Comment on above: Appointment Center T eliceoone Number Start: 12-26-2023 ambulatory India bueno Care Management Comment on above: Community Monitoring Outreach (CDM Telephonic Outreach) Start: 11-15-2023 ambulatory India bueno Care Management Comment on above: Community Monitoring Outreach (CDM Telephonic Outreach) Start: 11-14-2023 ambulatory Barak Partida RN Work Phone: Community Engagement Representative Management Start: 11-07-2023 End: 11-07-2023 ambulatory [facility] Facility:[facility] Start: 11-07-2023 End: 11-07-2023 Office outpatient visit 25 minutes Lesa Meraz MD Work Phone: Dermatology Comment on above: Pruritus (Primary Dx ); Seborrheic keratosis; Encounter for screening for malignant neoplasm of skin; Lentigines Start: 10-17-2023 End: 10-17-2023 [facility] Facility:[facility] Start: 10-02-2023 End: 10-02-2023 [facility] Facility:[facility] Start: 09-27-2023 End: 09-27-2023 [facility] Facility:[facility] Start: 09-08-2023 End: 09-08-2023 ambulatory India Woodson RN Community Engagement Representative Management Comment on above: Community Monitoring Outreach (CDM Telephonic Outreach) Start: 08-21-2023 End: 08-21-2023 ambulatory [facility] Facility:[facility] Start: 08-10-2023 Telephone encounter Walter Head MD Work Phone: Cardiology Start: 08-08-2023 End: 08-08-2023 ambulatory [facility] Facility:[facility] Start: 08-08-2023 End: 08-08-2023 Patient encounter procedure Vernell Martinez PA-C Work Phone: Neurology Comment on above: 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); Left-sided weakness; Vision loss of left eye Start: 08-01-2023 ambulatory India Rubi latory Care Management Comment on above: Community Monitoring Outreach (CDM Telephonic Outreach) Start: 07-03-2023 ambulatory India Rubi lattj Care Management Comment on above: Community Monitoring Outreach (CDM Telephonic Outreach) Start: 06-26-2023 Telephone encounter Kevin Bhagat APRN.BUILDING SPECIALIST Work Phone: Internal Medicine [place] Comment on above: Patient Question Start: 06-23-2023 End: 06-23-2023 Patient encounter procedure Walter Nuñez MD Work Phone: Cardiology Comment on above: Nonrheumatic aortic valve insufficiency, moderate to severe, LVEF 55 to 60%, LVEDD 50 mm. (Primary Dx); Hypertension, essential; Mixed hyperlipidemia; Peripheral vascular disease (HCC); Cerebrovascular accident (CVA), unspecified mechanism (HCC) Start: 06-22-2023 Telephone encounter Walter Head MD Work Phone: Cardiology Comment on above: Patient Question Start: 06-02-2023 ambulatory India Rubi latory Care Management Comment on above: Community Monitoring Outreach (CDM Telephonic Outreach) Start: 05-27-2023 Refill Peg Mason PA-C Work Phone: [place] [facility] Comment on above: Refill Request Start: 05-15-2023 End: 05-15-2023 Patient encounter procedure Kathy Huggins MD Work Phone: Functional Medicine Comment on above: Candidal enteritis ( Primary Dx); Intestinal dysbiosis; Hx of completed stroke Start: 05-12-2023 Refill Kezia Benavidez Work Phone: [address] [place] [address] Comment on above: Refill Request Start: 05-06-2023 Telephone encounter Kirstie johnson APRN.BUILDING SPECIALIST Work Phone: [place] [facility] Comment on above: Results Start: 05-05-2023 ambulatory India Rubi latory Care Management Comment on above: Community Monitoring Outreach (CDM Telephonic Outreach) Start: 05-05-2023 Telephone encounter Kevin Bhagat APRN.CNP Work Phone: Internal Medicine [place] Comment on above: Home Health Orders Start: 05-04-2023 ambulatory India Woodson RN [facility] Care Management Comment on above: Community Monitoring Outreach (CDM Telephonic Outreach) Start: 05-04-2023 Telephone encounter Krystin Ortiz PA-C Work Phone: [place] [facility] Comment on above: Medication Request; Orders Start: 05-03-2023 End: 05-03-2023 Patient encounter procedure Vernell Rodriguezdileep CARRILLO Work Phone: Neurology Comment on above: 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); Left-sided weakness Start: 05-02-2023 Telephone encounter Kezia moreira MD Work Phone: Internal Medicine [place] Comment on above: Attempt [facility] Start: 04-26-2023 Telephone encounter Krystin Ortiz PA-C Work Phone: Internal Medicine [place] Start: 04-25-2023 Telephone encounter Kezia moreira MD Work Phone: Internal Medicine [place] Comment on above: Patient Update Start: 04-20-2023 Telephone encounter Kezia moreira MD Work Phone: Internal Medicine [place] Comment on above: FYI: [facility] PT POC Consult Start: 04-19-2023 Telephone encounter Kezia moreira MD Work Phone: Internal Medicine [place] Comment on above: [facility] Order Request Start: 04-07-2023 ambulatory Pepper Chavez RN Work Phone: Community Engagement Representative Management Comment on above: cdm (enrollment) Start: 04-01-2023 Emergency department patient visit KEZIA BUNDYKALEN Facility:[id number] Start: 02-20-2023 ambulatory Kathy Benavidez Work Phone: Functional Medicine Comment on above: Elizabeth Urine test Start: 01-31-2023 ambulatory Kathy Benavidez Work Phone: Functional Medicine Comment on above: After Visit 01/31/23 Start: 01-31-2023 E-mail encounter jakob m caregiver Kathy Huggins MD Work Phone: [facility] Start: 01-31-2023 End: 01-31-2023 Patient encounter procedure Kathy Huggins MD Work Phone: Functional Medicine Comment on above: Intestinal dysbiosis (Primary Dx); Impaired nutrient utilization; Hypertension, essential Start: 01-30-2023 End: 01-30-2023 Patient encounter procedure Kezia Dubose MD Work Phone: Internal Medicine [place] Comment on above: Bloating (Primary Dx ); Lower urinary tract symptoms (LUTS); Diarrhea, unspecified type; Stage 3a chronic kidney disease (HCC) Start: 12-07-2022 Orders Only Osmin Benavidez Work Phone: Vascular Surg Dept Comment on above: Abdominal aortic ane urysm (AAA) without rupture, unspecified part (HCC) (Primary Dx) Start: 12-02-2022 Telephone encounter Peg HAAS Comment on above: Appointment Start: 10-13-2022 ambulatory Jesenia Aquino [facility] Comment on above: SPP General - No-go (Xifaxan) Start: 10-12-2022 ambulatory Kathy Benavidez Work Phone: Functional Medicine Comment on above: After Visit 10/12/22 Start: 10-12-2022 E-mail encounter jakob m caregiver Kathy Huggins MD Work Phone: [facility] Start: 09-01-2022 Refill Kathy Benavidez Work Phone: Functional Medicine Comment on above: Refill Request Start: 08-12-2022 Telephone encounter Kathy rodriguez MD Work Phone: Functional Medicine Comment on above: Insurance Authorizat ion Start: 08-09-2022 End: 08-09-2022 ambulatory [facility] Work Phone: [facility] Start: 08-09-2022 End: 08-09-2022 [facility] visit new patient Maylin Rollinsischer [facility] ED Work Phone: Functional Medicine Comment on above: New Patient Start: 08-08-2022 ambulatory Kathy Benavidez Work Phone: Functional Medicine Comment on above: After Visit 08/08/22 Start: 08-08-2022 E-mail encounter fro m caregiver Kathy Huggins MD Work Phone: [facility] Start: 08-08-2022 Telephone encounter Kathy rodriguez MD Work Phone: Functional Medicine Comment on above: Orders Start: 08-08-2022 End: 08-08-2022 Patient encounter procedure Kathy Huggins MD Work Phone: Functional Medicine Comment on above: Irritable bowel synd lucas with diarrhea (Primary Dx); Gassiness; Aortic valve insufficiency, etiology of cardiac valve disease unspecified; Hypertension, essential; BPH with obstruction/lower urinary tract symptoms; Essential fatty acid (EFA) deficiency; Impaired nutrient utilization; Gastrointestinal food sensitivity Start: 08-04-2022 Refill Kezia Benavidez Work Phone: Internal Medicine [place] Comment on above: Refill Request Start: 07-26-2022 End: 07-26-2022 Patient encounter procedure Lesa Meraz MD Work Phone: Dermatology Comment on above: Actinic keratosis (P rimary Dx); Seborrheic keratoses, inflamed; Pruritus Start: 06-14-2022 End: 06-14-2022 Patient encounter procedure Kezia Dubose MD Work Phone: Internal Medicine [place] Comment on above: Hypertension, essent ial (Primary Dx); Mixed hyperlipidemia; Abdominal aortic aneurysm without rupture (HCC); Stage 3a chronic kidney disease (HCC); AK (actinic keratosis) Start: 04-04-2022 End: 04-04-2022 Patient encounter procedure Kezia Dubose MD Work Phone: Internal Medicine [place] Comment on above: Stage 3a chronic kid camila disease (HCC) (Primary Dx); Hypertension, essential; Elevated hemoglobin A1c; Itching Start: 03-03-2022 Telephone encounter Kezia moreira MD Work Phone: Internal Medicine [place] Comment on above: Appointment Start: 02-23-2022 Telephone encounter Kezia moreira MD Work Phone: Family Medicine [place] Comment on above: Results Start: 02-14-2022 End: 02-14-2022 Patient encounter procedure Osmin Singh MD Work Phone: Vascular Surg Dept Comment on above: Bilateral carotid ar priya stenosis (Primary Dx); Synovial cyst of right popliteal space; Abdominal aortic aneurysm without rupture (HCC) Start: 02-14-2022 End: 02-14-2022 Subsequent hospital visit by physician Xr Main Qb1 Radiology Comment on above: AAA (abdominal aorti c aneurysm) without rupture (HCC) [I71.4] Start: 02-03-2022 Telephone encounter Kevin Bhagat APRN.BUILDING SPECIALIST Work Phone: Internal Medicine [place] Comment on above: Results Start: 01-28-2022 End: 01-28-2022 Patient encounter procedure Kezia Dubose MD Work Phone: Internal Medicine [place] Comment on above: Medicare annual well ness visit, subsequent (Primary Dx); Elevated hemoglobin A1c; Hypertension, essential; Lower urinary tract symptoms (LUTS); Peripheral vascular disease (HCC); Abdominal aortic aneurysm without rupture (HCC); Hypokalemia; Hyponatremia; Stage 3a chronic kidney disease (HCC); Celiac disease; Vitamin D deficiency Start: 02-10-2021 Patient encounter procedure Kezia Dubose MD Work Phone: [facility] Work Phone: Procedures Date Procedure Procedure Detail Performing Clinician Start: 02-28-2024 Urnls dip stick/tabl et rgnt auto w/o microscopy Cal Rothman APRN.BUILDING SPECIALIST Work Phone: Start: 02-06-2024 Urnls dip stick/tabl et rgnt auto w/o microscopy Alka Melara PA-C Work Phone: Start: 02-14-2022 Radiologic exam abdo men 3+ views Osmin Singh MD Work Phone: Start: 05-12-2021 Ecg routine ecg w/le ast 12 lds i&r only Plan of Treatment Date Care Activity Detail Author Start: 05-20-2027 Diabetes Screening Diabetes Screenin g [facility] Start: 03-27-2027 Diabetes Screening Diabetes Screenin g [facility] Start: 09-08-2026 Diabetes Screening Diabetes Screenin g [facility] Start: 05-05-2026 DIABETES SCREEN DIABETES SCREEN [facility] Start: 05-05-2026 Diabetes Screening Diabetes Screenin g [facility] Start: 04-24-2026 DIABETES SCREEN DIABETES SCREEN [facility] Start: 04-05-2026 DIABETES SCREEN DIABETES SCREEN [facility] Start: 04-04-2026 Urine microalbumin profile [facility] Start: 08-08-2025 DIABETES SCREEN DIABETES SCREEN [facility] Start: 02-17-2025 DIABETES SCREEN DIABETES SCREEN [facility] Start: 01-28-2025 DIABETES SCREEN DIABETES SCREEN [facility] Start: 10-02-2024 RSV Vaccine (1 - 1-d ose 60+ series) RSV Vaccine (1 - 1-dose 60+ series) [facility] Comment on above: Postponed from 01/24 (Declined at this time) Start: 10-02-2024 RSV Vaccine (1 - 1-d ose 75+ series) RSV Vaccine (1 - 1-dose 75+ series) [facility] Comment on above: Postponed from 01/24 (Declined at this time) Start: 08-13-2024 End: 08-13-2024 Patient encounter procedure 08/13/2024 11:30 AM EST Office Visit Neurology [address] [place], [place] [phone] Vernell Martinez PA-C [address] [place], [place] [id number] Six month follow up stroke Neurology Comment on above: Six month follow up stroke Start: 08-09-2024 End: 08-09-2024 Patient encounter procedure 08/09/2024 2:00 PM EST [facility] [address] [place] [id number] Kathy Huggins MD [address] [facility] [address] [place] [address] followup Functional Medicine Comment on above: followup Start: 08-06-2024 End: 08-06-2024 Patient encounter procedure 08/06/2024 8:30 AM EST Office Visit Cardiology [address] [place] [address] Walter Nuñez MD [address] [place] [address] 6 month f/u. r/s from 07/30/24. sent letter and mychart. Cardiology Comment on above: 6 month f/u. r/s fro 07/30/24. sent letter and mychart. Start: 07-30-2024 End: 07-30-2024 Patient encounter procedure 07/30/2024 11:30 AM EST Office Visit Cardiology [address] [place] [address] Walter Nuñez MD [address] [place] [address] 6 month f/u Cardiology Comment on above: 6 month f/u Start: 07-26-2024 End: 01-23-2025 Echocardiography ECHO Cardiology Routine Nonrheumatic aortic valve insufficiency, moderate to severe, LVEF 55 to 60%, LVEDD 50 mm. Expected: 07/26/2024 (Approximate), Expires: 01/23/2025 [facility] Work Phone: Comment on above: Expected: 07/26/2024 (Approximate), Expires: 01/23/2025 Start: 07-22-2024 End: 07-22-2024 Patient encounter procedure Cardiology Comment on above: Echo 3 Month follow up Start: 07-18-2024 End: 07-18-2024 Patient encounter procedure [facility] Medicine [place] Comment on above: 2 month follow up Annual Wellnes Visit due - Follow up Start: 06-26-2024 Shingrix Vaccine (1 of 2) Perry grix Vaccine (1 of 2) [facility] Comment on above: Postponed from 01/24 (Declined at this time) Start: 06-05-2024 End: 06-05-2024 Patient encounter procedure 06/05/2024 3:30 PM EDT Office Visit Functional Medicine [address] [place] [address] Kathy Huggins MD [address] [facility] [address] [place] [address] followup Functional Medicine Comment on above: followup Start: 05-26-2024 Influenza vaccination Influenza Vacc ine (#1) [facility] Start: 05-20-2024 End: 05-20-2024 Patient encounter procedure 05/20/2024 3:40 PM EDT Office Visit Internal Medicine [place] [address] [place], [place] [phone] Kezia Dubose MD [address] [place], [place] [phone] [facility] Dc'd 05/14/2024 Internal Medicine [place] Comment on above: [facility] Dc'd 05/14/2024 Start: 05-20-2024 End: 08-19-2024 CBC W Auto Differential panel - Blood [facility] Work Phone: Comment on above: Expected: 05/20/2024 , Expires: 08/19/2024 Start: 05-13-2024 End: 05-13-2024 Patient encounter procedure 05/13/2024 2:00 PM EDT Office Visit Functional Medicine [address] [place] [address] Kathy Huggins MD [address] [facility] [address] [place] [address] follow up Functional Medicine Comment on above: follow up Start: 05-02-2024 End: 05-02-2024 Patient encounter procedure 05/02/2024 2:00 PM EDT Office Visit Internal Medicine [place] [address] [facility] [place], [place] [id number] Kezia Dubose MD [address] [place] [address] 1 wk follow up; negrito Internal Medicine [place] Comment on above: 1 wk follow up; pratima adame Start: 04-24-2024 End: 07-24-2024 Basic metabolic 2000 panel - Serum or Plasma BASIC METABOLIC PANEL Lab Routine Hyponatremia Expected: 04/24/2024, Expires: 07/24/2024 [facility] Work Phone: Comment on above: Expected: 04/24/2024 , Expires: 07/24/2024 Start: 04-24-2024 End: 07-24-2024 Magnesium [Mass/volume] in Serum or Plasma MAGNESIUM Lab Routine Hyponatremia Expected: 04/24/2024, Expires: 07/24/2024 [facility] Comment on above: Expected: 04/24/2024 , Expires: 07/24/2024 Start: 04-24-2024 End: 07-24-2024 TESTOSTERONE BIOAVAILABLE TESTOSTERONE BIOAVAILABLE Lab Routine Testosterone deficiency Expected: 04/24/2024, Expires: 07/24/2024 [facility] Comment on above: Expected: 04/24/2024 , Expires: 07/24/2024 Start: 04-24-2024 End: 07-24-2024 Thyrotropin [Units/volume] in Serum or Plasma THYROID STIMULATING HORMONE Lab Routine Prediabetes Expected: 04/24/2024, Expires: 07/24/2024 [facility] Comment on above: Expected: 04/24/2024 , Expires: 07/24/2024 Start: 04-18-2024 End: 04-18-2024 Patient encounter procedure 04/18/2024 1:00 PM EDT Office Visit Internal Medicine [place] [address] [facility] [address] Kezia Dubose MD [address] [place] [address] 6 month follow up Internal Medicine [place] Comment on above: 6 month follow up Start: 04-12-2024 End: 07-12-2024 TESTOSTERONE, FREE AND TOTAL TESTOSTERONE, FREE AND TOTAL Lab Routine Testosterone deficiency Expected: 04/12/2024, Expires: 07/12/2024 [facility] Work Phone: Comment on above: Expected: 04/12/2024 , Expires: 07/12/2024 Start: 04-09-2024 End: 04-09-2024 Patient encounter procedure 04/09/2024 12:00 PM EDT Office Visit [facility] [place] [address] [facility] [place] [address] Kezia Dubose MD [address] [place] [address] 6 month follow up Internal Medicine [place] Comment on above: 6 month follow up Start: 04-01-2024 End: 04-01-2024 Patient encounter procedure 04/01/2024 11:00 AM EDT Office Visit Internal Medicine [place] [address] [facility] [place] [address] Kevin Bhagat APRN.BUILDING SPECIALIST [address] [facility] [place] [address] 6 month follow up Internal Medicine [place] Comment on above: 6 month follow up Start: 03-07-2024 End: 03-07-2024 Patient encounter procedure 03/07/2024 9:40 AM EDT Office Visit Family Medicine [place] [address] [facility] [place] [address] Aleena Peña, DIRECTOR OF HOTEL OPERATIONS.BUILDING SPECIALIST [address] [facility] [place] [address] f/u uti [facility] Comment on above: f/u uti Start: 02-06-2024 End: 02-06-2024 Patient encounter procedure 02/06/2024 10:00 AM EDT Office Visit Neurology [address] [place] [address] Vernell Martinez PA-C [address] [facility] [place] [address] 6 month follow up stroke Neurology Comment on above: [address] [facility] Start: 01-29-2024 End: 04-29-2024 CHARISSA ALBICANS ABS, IGA,IGG,IGM CHARISSA ALBICANS ABS, IGA,IGG,IGM Lab Routine Candidal enteritis Irritable bowel syndrome with diarrhea Expected: 01/29/2024, Expires: 04/29/2024 [facility] Work Phone: Comment on above: Expected: 01/29/2024 , Expires: 04/29/2024 Start: 01-29-2024 End: 04-29-2024 Histamine [Moles/volume] in Blood HISTAMINE BLD Lab Routine Candidal enteritis Irritable bowel syndrome with diarrhea Expected: 01/29/2024, Expires: 04/29/2024 [facility] Comment on above: Expected: 01/29/2024 , Expires: 04/29/2024 Start: 01-29-2024 End: 04-29-2024 IgG [Mass/volume] in Serum or Plasma IMMUNOGLOBULIN G Lab Routine Candidal enteritis Expected: 01/29/2024, Expires: 04/29/2024 [facility] Comment on above: Expected: 01/29/2024 , Expires: 04/29/2024 Start: 01-29-2024 End: 04-29-2024 TRYPTASE BLOOD TRYPTASE BLOOD Lab Routine Candidal enteritis Irritable bowel syndrome with diarrhea Expected: 01/29/2024, Expires: 04/29/2024 [facility] Comment on above: Expected: 01/29/2024 , Expires: 04/29/2024 Start: 01-29-2024 End: 01-29-2024 Patient encounter procedure 01/29/2024 1:30 PM EDT Office Visit Functional Medicine [address] [place] [place] [address] Kathy Huggins MD [address] [address] 4 MONTH FOLLOW UP Functional Medicine Comment on above: 4 MONTH FOLLOW UP Start: 2024 End: 2024 Patient encounter procedure 2024 4:20 PM EDT Office Visit Internal Medicine [place] [address] [place], [place] [id number] Kevin Bhagat APRN.BUILDING SPECIALIST [address] [facility] [address] blood pressure check & medication review Internal Medicine [place] Comment on above: blood pressure check & medication review Start: 2024 End: 2024 Patient encounter procedure 2024 11:30 AM EDT Office Visit Cardiology [address] [place] [address] Walter Nuñez MD [address] [place] [address] follow up Cardiology Comment on above: follow up Start: 11-07-2023 End: 02-06-2024 Thyrotropin [Units/volume] in Serum or Plasma TSH BLD Lab Routine Pruritus Expected: 11/07/2023, Expires: 02/06/2024 [facility] Work Phone: Comment on above: Expected: 11/07/2023 , Expires: 02/06/2024 Start: 11-07-2023 End: 02-06-2024 Thyroxine (T4) free [Mass/volume] in Serum or Plasma T4 FREE/FREE THYROX Lab Routine Pruritus Expected: 11/07/2023, Expires: 02/06/2024 [facility] Work Phone: Comment on above: Expected: 11/07/2023 , Expires: 02/06/2024 Start: 09-25-2023 Behavioral Health Screening Behavioral Health Screening [facility] Start: 05-26-2023 Influenza vaccination C [facility] Start: 01-31-2023 End: 04-02-2023 [facility] 1 Lab Routine Intestinal dysbiosis Impaired nutrient utilization Expected: 01/31/2023, Expires: 04/02/2023 [facility] Work Phone: Comment on above: Expected: 01/31/2023 , Expires: 04/02/2023 Start: 01-28-2023 SHINGRIX VACCINE (1 of 2) PERRY GRIX VACCINE (1 of 2) [facility] Comment on above: Postponed from 01/24 (Declined at this time) Start: 12-07-2022 End: 02-06-2023 CREATININE BLD CREATININE BLD Lab Routine Abdominal aortic aneurysm (AAA) without rupture, unspecified part (HCC) Expected: 12/07/2022, Expires: 02/06/2023 [facility] Work Phone: Comment on above: Expected: 12/07/2022 , Expires: 02/06/2023 Start: 09-25-2022 ADVANCE DIRECTIVE DISCUSSION ADVANCE DIRECTIVE DISCUSSION [facility] Start: 09-25-2022 DEPRESSION ASSESSMENT DEPRESSION ASS ESSMENT [facility] Start: 08-08-2022 End: 10-08-2022 25-hydroxyvitamin D3 [Mass/volume] in Serum or Plasma [facility] Work Phone: Comment on above: Expected: 08/08/2022 , Expires: 10/08/2022 Start: 08-08-2022 End: 10-08-2022 ALLERGY FOOD PANEL IGG [facility] Work Phone: Comment on above: Expected: 08/08/2022 , Expires: 10/08/2022 Start: 08-08-2022 End: 10-08-2022 Arsenic [Mass/volume] in Blood [facility] Work Phone: Comment on above: Expected: 08/08/2022 , Expires: 10/08/2022 Start: 08-08-2022 End: 10-08-2022 C reactive protein [Mass/volume] in Serum or Plasma by High sensitivity method [facility] Work Phone: Comment on above: Expected: 08/08/2022 , Expires: 10/08/2022 Start: 08-08-2022 End: 10-08-2022 Comprehensive metabolic 2000 panel - Serum or Plasma [facility] Work Phone: Comment on above: Expected: 08/08/2022 , Expires: 10/08/2022 Start: 08-08-2022 End: 10-08-2022 COPPER BLOOD [facility] Work Phone: Comment on above: Expected: 08/08/2022 , Expires: 10/08/2022 Start: 08-08-2022 End: 10-08-2022 Ferritin [Mass/volume] in Serum or Plasma [facility] Work Phone: Comment on above: Expected: 08/08/2022 , Expires: 10/08/2022 Start: 08-08-2022 End: 10-08-2022 Gamma glutamyl transferase [Enzymatic activity/volume] in Serum or Plasma [facility] Work Phone: Comment on above: Expected: 08/08/2022 , Expires: 10/08/2022 Start: 08-08-2022 End: 10-08-2022 Homocysteine [Moles/volume] in Serum or Plasma [facility] Work Phone: Comment on above: Expected: 08/08/2022 , Expires: 10/08/2022 Start: 08-08-2022 End: 10-08-2022 Iron and Iron binding capacity panel - Serum or Plasma [facility] Work Phone: Comment on above: Expected: 08/08/2022 , Expires: 10/08/2022 Start: 08-08-2022 End: 10-08-2022 Lead [Mass/volume] in Blood [facility] Work Phone: Comment on above: Expected: 08/08/2022 , Expires: 10/08/2022 Start: 08-08-2022 End: 10-08-2022 MAGNESIUM RBC [facility] Work Phone: Comment on above: Expected: 08/08/2022 , Expires: 10/08/2022 Start: 08-08-2022 End: 10-08-2022 Mercury [Mass/volume] in Blood [facility] Work Phone: Comment on above: Expected: 08/08/2022 , Expires: 10/08/2022 Start: 08-08-2022 End: 10-08-2022 Methylmalonate [Moles/volume] in Serum or Plasma [facility] Work Phone: Comment on above: Expected: 08/08/2022 , Expires: 10/08/2022 Start: 08-08-2022 End: 10-08-2022 OMEGACHECK [facility] Work Phone: Comment on above: Expected: 08/08/2022 , Expires: 10/08/2022 Start: 08-08-2022 End: 10-08-2022 Thyrotropin [Units/volume] in Serum or Plasma [facility] Work Phone: Comment on above: Expected: 08/08/2022 , Expires: 10/08/2022 Start: 08-08-2022 End: 10-08-2022 Thyroxine (T4) free [Mass/volume] in Serum or Plasma [facility] Work Phone: Comment on above: Expected: 08/08/2022 , Expires: 10/08/2022 Start: 08-08-2022 End: 10-08-2022 Tissue transglutaminase IgA Ab [Units/volume] in Serum [facility] Work Phone: Comment on above: Expected: 08/08/2022 , Expires: 10/08/2022 Start: 08-08-2022 End: 10-08-2022 Tissue transglutaminase IgG Ab [Units/volume] in Serum [facility] Work Phone: Comment on above: Expected: 08/08/2022 , Expires: 10/08/2022 Start: 08-08-2022 End: 10-08-2022 Transferrin [Mass/volume] in Serum or Plasma [facility] Work Phone: Comment on above: Expected: 08/08/2022 , Expires: 10/08/2022 Start: 08-08-2022 End: 10-08-2022 Triiodothyronine (T3) Free [Mass/volume] in Serum or Plasma [facility] Work Phone: Comment on above: Expected: 08/08/2022 , Expires: 10/08/2022 Start: 08-08-2022 End: 10-08-2022 Urate [Mass/volume] in Serum or Plasma [facility] Work Phone: Comment on above: Expected: 08/08/2022 , Expires: 10/08/2022 Start: 08-08-2022 End: 10-08-2022 Zinc [Mass/volume] in Serum or Plasma [facility] Work Phone: Comment on above: Expected: 08/08/2022 , Expires: 10/08/2022 Start: 05-26-2022 Influenza vaccination INFLUENZA (#1) [facility] Start: 02-03-2022 End: 04-05-2022 Basic metabolic 2000 panel - Serum or Plasma BASIC METABOLIC PNL Lab Routine Function kidney decreased Expected: 02/03/2022, Expires: 04/05/2022 [facility] Work Phone: Comment on above: Expected: 02/03/2022 , Expires: 04/05/2022 Start: 01-28-2022 End: 01-28-2023 VITAMIN D 25 HYDROXY [facility] Work Phone: Comment on above: Expected: 01/28/2022 , Expires: 01/28/2023 Start: 09-25-2021 ADVANCE DIRECTIVE DISCUSSION ADVANCE DIRECTIVE DISCUSSION [facility] Start: 09-25-2021 DEPRESSION ASSESSMENT DEPRESSION ASS ESSMENT [facility] Start: 05-19-2021 COVID-19 VACCINE (3 - Booster for Moderna series) COVID-19 VACCINE (3 - Booster for Moderna series) [facility] Start: 02-11-2021 COVID-19 VACCINE (3 - Booster for Moderna series) COVID-19 VACCINE (3 - Booster for Moderna series) [facility] Start: 02-11-2021 COVID-19 VACCINE (3 - Moderna series) COVID-19 VACCINE (3 - Moderna series) [facility] Start: 1997 RSV Vaccine (1 - 1-d ose 60+ series) RSV Vaccine (1 - 1-dose 60+ series) [facility] Start: 1987 SHINGRIX VACCINE (1 of 2) PERRY GRIX VACCINE (1 of 2) [facility] Start: 1955 Anxiety Screening Anxiety Screening [facility] Start: 1953 Depression Screening Depression Scre ening [facility] Bacteria identified in Urine by Culture URINE CULTURE Microbiology Routine Acute UTI 02/06/2024 11:06 AM EDT [facility] Work Phone: Bacteria identified in Urine by Culture URINE CULTURE Microbiology Routine Dysuria 02/28/2024 12:00 PM EDT [facility] Work Phone: End: 01-06-2024 Ct angio abd&plvis cntrst mtrl w/wo cntrst img CTA ABD/PEL WO/W IVCON Radiology Routine Abdominal aortic aneurysm (AAA) without rupture, unspecified part (HCC) 1 Occurrences starting 12/07/2022 until 01/06/2024 [facility] Work Phone: Comment on above: 1 Occurrences starti ng 12/07/2022 until 01/06/2024 FM GI EFFECTS, 1 STO OL SPECIMEN FM GI EFFECTS, 1 STOOL SPECIMEN Lab Routine Irritable bowel syndrome with diarrhea Ordered: 08/08/2022 [facility] Work Phone: Comment on above: Ordered: 08/08/2022 FM GI EFFECTS, 3 STO OL SPECIMENS FM GI EFFECTS, 3 STOOL SPECIMENS Lab Routine Candidal enteritis Ordered: 01/29/2024 [facility] Comment on above: Ordered: 01/29/2024 End: 04-19-2025 HEARING TEST/AUDIOGRAM HEARING TEST/AUDIOGRAM Audiology Routine Decreased hearing of both ears 1 Occurrences starting 04/18/2024 until 04/19/2025 [facility] Work Phone: Comment on above: 1 Occurrences starti ng 04/18/2024 until 04/19/2025 End: 12-08-2023 PVR ANK/COFFEY/TOE DICK VAS LAB PVR ANK/COFFEY/TOE DICK VAS LAB Vascular Lab Routine Abdominal aortic aneurysm (AAA) without rupture, unspecified part (HCC) 1 Occurrences starting 12/07/2022 until 12/08/2023 [facility] Work Phone: Comment on above: 1 Occurrences starti ng 12/07/2022 until 12/08/2023 [facility] Immunizations Immunization Date Immunization Notes Care Provider Fa [facility] 06-26-2023 influenza (HD-IIV4) vaccine, age 65+ yr, high dose, quadrivalent, PF (FLUZONE HIGH-DOSE) India Woodson RN [facility] 06-26-2023 influenza virus vacc ine, unspecified formulation Kezia Dubose MD Work Phone: [facility] 06-09-2021 influenza, high-dose , quadrivalent vaccine (FLUZONE HIGH DOSE QUADRIVALENT) Kezia Dubose MD Work Phone: [facility] 06-09-2021 influenza virus vacc ine, unspecified formulation Walter Nuñez MD Work Phone: [facility] 12-17-2020 COVID-19 vaccine, fu ll dose (MODERNA) Kezia Dubose MD Work Phone: [facility] Work Phone: 11-19-2020 COVID-19 vaccine, fu ll dose (MODERNA) Kezia Dubose MD Work Phone: [facility] Work Phone: 07-21-2020 influenza, high-dose , quadrivalent vaccine (FLUZONE HIGH DOSE QUADRIVALENT) Kezia Dubose MD Work Phone: [facility] 06-14-2019 influenza, high dose seasonal, preservative-free Kezia Dubose MD Work Phone: [facility] 06-11-2018 influenza, high dose seasonal, preservative-free Kezia Dubose MD Work Phone: [facility] 02-08-2017 pneumococcal polysaccharide vaccine, 23 valent Kezia Dubose MD Work Phone: [facility] 08-17-2016 influenza, high dose seasonal, preservative-free Kezia Dubose MD Work Phone: [facility] 04-04-2016 tetanus and diphther ia toxoids, adsorbed, preservative free, for adult use (5 Lf of tetanus toxoid and 2 Lf of diphtheria toxoid) Kezia Dubose MD Work Phone: [facility] 06-16-2015 influenza, high dose seasonal, preservative-free Kezia Dubose MD Work Phone: [facility] 08-26-2014 influenza, seasonal, injectable Kezia Dubose MD Work Phone: [facility] 08-26-2014 pneumococcal conjuga te vaccine, 13 valent Kezia Dubose MD Work Phone: [facility] 09-02-2013 influenza virus vacc ine, unspecified formulation Kezia Dubose MD Work Phone: [facility] 06-25-2012 influenza virus vacc ine, unspecified formulation Kezia Dubose MD Work Phone: [facility] 07-01-2010 influenza virus vacc ine, unspecified formulation Kezia Dubose MD Work Phone: [facility] 10-09-2006 tetanus and diphther ia toxoids, adsorbed, preservative free, for adult use (2 Lf of tetanus toxoid and 2 Lf of diphtheria toxoid) Kezia Dubose MD Work Phone: [facility] Work Phone: 03-21-2005 pneumococcal polysaccharide vaccine, 23 valent Kezia Dubose MD Work Phone: [facility] Work Phone: 12-21-1996 diphtheria and tetan us toxoids, adsorbed for pediatric use Kezia Dubose MD Work Phone: [facility] Work Phone: Payers Date Payer Category Payer Medicare AETNA MEDICARE A ETNA MEDICARE PPO [id number] 2020-Present [phone] [address] [place] [address] PPO [id number] 2020 Medicare AETNA MEDICARE A ETNA MEDICARE PPO [id number] 2020-Present [phone] [address] [place] [address] PPO [id number] 2020 Medicare [id number] 1935 Unknown [id number] Social History Date Type Detail Facility Start: 01-29-2018 End: 08-08-2022 Tobacco smoking status NHIS Never smoked tobacco [facility] Start: 06-09-2021 End: 05-20-2024 Alcohol intake Current non-drinker of alcohol (finding) [facility] Start: 01-28-2022 End: 01-29-2023 History SDOH Alcohol Frequency 1 [facility] Start: 01-28-2022 End: 01-29-2023 History SDOH Social Connections Phone 3 [facility] Start: 01-28-2022 History SDOH Physica l Activity DPW 6 [facility] Start: 01-28-2022 End: 01-29-2023 History SDOH Physical Activity MPS 4 [facility] Start: 01-28-2022 End: 01-29-2023 History SDOH Financial 5 [facility] Start: 01-28-2022 End: 01-29-2023 History SDOH Transport Med 2 [facility] [facility] Start: 1935 Sex Assigned At Male C [facility] Start: 01-18-2022 End: 01-28-2022 Exposure to SARS-CoV-2 (event) Unable to assess [facility] Start: 02-04-2022 End: 07-26-2022 Exposure to SARS-CoV-2 (event) Not sure [facility] Start: 01-29-2018 End: 08-08-2022 Tobacco use and exposure Smokeless tobacco non-user [facility] Start: 01-29-2023 History SDOH Alcohol Std Drinks 0 [facility] Start: 01-29-2023 End: 2024 History of Social function [facility] Start: 01-29-2023 End: 2024 Social connection and isolation panel [facility] Do you belong to any clubs or organizations such as baptist groups, unions, fraternal or athletic groups, or school groups? Yes [facility] Are you now , , , , never or living with a partner? [facility] How often to you hav e a drink containing alcohol? Never [facility] How many standard dr inks containing alcohol do you have on a typical day? Patient does not drink [facility] Do you feel stress - tense, restless, nervous, or anxious, or unable to sleep at night because your mind is troubled all the time - these days [OSQ] Not at all [facility] (I/We) worried wheth er (my/our) food would run out before (I/we) got money to buy more. Never true [facility] In the past 12 month s, was there a time when you were not able to pay the mortgage or rent on time? No [facility] Start: 03-24-2019 Gender identity Identifies as male gender (finding) [facility] Start: 03-24-2019 Sexual orientation Heterosexual (yanira henriquez) [facility] Medical Equipment Procedure Code Equipment Code Equipment Origin al Text Equipment Identifier Dates Graft Excluder 1 8mm 14.5-16.5mm Randolph-Miles Nitinol Fep 11.5cm Endovascular - [id number] Start: 12-12-2019 Graft Excluder 2 0mm 16.5-18.5mm Randolph-Miles Nitinol Fep 11.5cm Endovascular - [id number] Start: 12-12-2019 Graft Excluder C 3 26mm 14.5mm Randolph-Miles Nitinol Fep 14cm Endovascular Stent - [id number] Start: 12-12-2019 Graft Randolph Exclu ronal 14.5mm 10cm Endovascular Contralateral Leg - [id number] Start: 12-12-2019 Goals Date Patient Goal Desired Activity /State Personal health goal Comment on above: Formatting of this n ote might be different from the original. stated: He would like to drive again, but that will be determined by the Neurologist. Formatting of this n ote might be different from the original. stated: He would like to drive again, but that will be determined by the Neurologist. 08/01/2023: Not determined yet - Neuro Visit scheduled 08/08/2023 Formatting of this n ote might be different from the original. stated: He would like to drive again, but that will be determined by the Neurologist. 08/01/2023: Not determined yet - Neuro Visit scheduled 08/08/2023 11/15/2023: Patient driving again. Drove to [place] with his & will be back in [place] by the end of December 2023. Personal health goal Comment on above: Formatting of this n ote might be different from the original. Patient has the following Chronic Kidney Disease goals: Two PCP visits annually, Nephrology visit annually, and Renal panel twice annually Education provided and reviewed with patient - sent on 08/01/23 CKD VILMA Education - CKD (ALL) Patient will meet these goals by: 07/26/2024 (describe interventions done by PCC) Personal health goal Comment on above: Formatting of this n ote might be different from the original. This patient has the following High Blood Pressure/Hypertension Health Maintenance goals: Two PCP Visits annually, Nurse / pharmacist / JASON visit within 4 weeks after PCP visit with uncontrolled BP (>140/90), and BMP annually This patient has the following education goals: Medication compliance education, Advise / educate patient to ask for repeat BP check at any appointment if first BP is >140/90, Checking your Blood Pressure at Home, High Blood Pressure: Talking to Your Health Care Provider, High Blood Pressure - When to Seek Emergency Care, High Blood Pressure and Nutrition, Your Sodium-Controlled Diet, and Hypertension Treatment Overview Patient will meet these goals by (describe interventions done by PCC) Personal health goal Comment on above: Formatting of this n ote might be different from the original. stated: Sergo would like to maintain a normal blood pressure. Clinical Notes 09-08-2013 to 07-04-2024 Telephone Encounter - Kezia Dubose MD - 07/04/2024 6:10 PM EDTTelephone Encounter - Kezia Dubose MD - 07/04/2024 6:10 PM EDTTelephone Encounter - Osiris Tapia LPN - 07/03/2024 4:03 PM EDT Note Date & Type Note Facility 07-04-2024 Telephone encounter Note Completed and faxed may days ago [facility] 07-04-2024 Miscellaneous Notes Completed and faxed may days ago Checking to see if this has been completed. Osiris Tapia LPN Forms received, partially completed and given to Dr. Dubose for review, completion, and signature. Once signed, please fax to [phone], [facility]. Send copy to medical records for scanning. Peg De Jesus MA Spoke to [place] the patients son, dropping off paperwork for intermittent FMLA for both parents. Additional note in [facility] chart. Betsey Collado LPN June 21, 2024 11:47 AM documented in this encounter [facility] 07-03-2024 Telephone encounter Note Checking to see if this has been completed. Osiris Tapia LPN [facility] 06-25-2024 Note HNO ID: [id number] Author: ANTHONY BARRETT MA Service: ? Author Type: Travelift Operator Type: Progress Notes Filed: 06/25/2024 14:05 Note Text: POPULATION HEALTH NAVIGATION OUTREACH Action/FYI Patient is on [facility] Outreach List and needs appointment to address : Depression Screening Anxiety Screening Influenza Vaccine(1) Patient due for: Medicare Annual Wellness Visit Spoke to patient. Scheduled 07-18-24 with PCP. Noted upcoming appointment to address HCC Reason for Outreach [facility] Care Gaps due: Medicare Annual Wellness Visit Patient Contacted: Spoke to patient/parent/or legal guardian Patient identified by name and : Yes [facility] actions taken: Patient scheduled/pended orders: Medicare Annual Wellness Visit 07/18/2024 in [facility] with KEZIA DUBOSE - Annual Wellnes Visit due - Follow up, Please address due care gaps and HCC gaps 07/22/2024 in [facility] with ECHOCARDIOGRAM [facility] - Echo 08/06/2024 in [facility] with WALTER NUÑEZ - 6 month f/u. r/s from 07/30/24. sent letter and mychart. 08/13/2024 in [facility] with VERNELL MARTINEZ - Six month follow up stroke Navigation Signature: Anthony Barrett MA June 25, 2024 1:[address] [facility] 06-25-2024 History of Presen t illness Narrative POPULATION HEALTH NAVIGATION OUTREACH Action/ Patient is on [facility] Outreach List and needs appointment to address : Depression Screening Anxiety Screening Influenza Vaccine(1) Patient due for: Medicare Annual Wellness Visit Spoke to patient. Scheduled 07-18-24 with PCP. Noted upcoming appointment to address HCC Reason for Outreach [facility] Care Gaps due: Medicare Annual Wellness Visit Patient Contacted: Spoke to patient/parent/or legal guardian Patient identified by name and : Yes [facility] actions taken: Patient scheduled/pended orders: Medicare Annual Wellness Visit 07/18/2024 in [facility] with KEZIA DUBOSE - Annual Welldarian Visit due - Follow up, Please address due care gaps and HCC gaps 07/22/2024 in [facility] with ECHOCARDIOGRAM WSTR - Echo 08/06/2024 in [facility] with WALTER NUÑEZ - 6 month f/u. r/s from 07/30/24. sent letter and mychart. 08/13/2024 in [facility] with VERNELL MARTINEZ - Six month follow up stroke Navigation Signature: Anthony Barrett MA June 25, 2024 1:58 PM documented in this encounter [facility] 06-25-2024 Note Patient Outreach (FRENCH TNJERMAINE) HEADINGS,SERGO Suárez ([id number]) 1935 M Date Time Provider Department 06/25/24 ANTHONY BARRETT During your visit today, we recorded the following information about you: Anthony Barrett MA 06/25/2024 2:05 PM Signed POPULATION HEALTH NAVIGATION OUTREACH Action/FY Patient is on [facility] Outreach List and needs appointment to address : Depression Screening Anxiety Screening Influenza Vaccine(1) Patient due for: Medicare Annual Wellness Visit Spoke to patient. Scheduled 07-18-24 with PCP. Noted upcoming appointment to address HCC Reason for Outreach [facility] Care Gaps due: Medicare Annual Wellness Visit Patient Contacted: Spoke to patient/parent/or legal guardian Patient identified by name and : Yes [facility] actions taken: Patient scheduled/pended orders: Medicare Annual Wellness Visit 07/18/2024 in [facility] with KEZIA DUBOSE - Annual [facility] Visit due - Follow up, Please address due care gaps and HCC gaps 07/22/2024 in [facility] with ECHOCARDIOGRAM [facility] - Echo 08/06/2024 in [facility] with WALTER NUÑEZ - 6 month f/u. r/s from 07/30/24. sent letter and mychart. 08/13/2024 in [facility] with VERNELL MARTINEZ - Six month follow up stroke Navigation Signature: Anthony Barrett MA June 25, 2024 1:58 PM Allergies As of Date: 06/25/2024 Noted Allergy Reaction GLUTEN 09/23/2011 6 - Diarrhea Comments: Upset stomach Gas build up Date Reviewed: 05/20/2024 Reviewed by: Laura Ambrocio LPN - Fully Assessed Reason for Visit: Population Health Navigation Outreach [3910] Cmt: [facility] Prescriptions as of 06/25/2024 - fludrocortisone (FLORINEF) 0.1 mg tablet Take 0.1 mg by mouth once daily. - QUEtiapine (SEROQUEL) 25 mg tablet Take 1 tablet by mouth three times a day as needed. - clopidogrel (PLAVIX) 75 mg tablet Take 1 tablet by mouth once daily. - testosterone 100 mg/ml cream (CPD) Apply 0.5 mL to affected area once daily for 180 days. - atorvastatin (LIPITOR) 40 mg tablet Take 1 tablet by mouth daily at bedtime. - tamsulosin (FLOMAX) 0.4 mg Take 1 capsule by mouth once daily. - hydrocortisone 2.5 % ointment Apply to itchy areas once daily - metoprolol tartrate, short acting, (LOPRESSOR) 50 mg tablet Take 1 tablet by mouth two times a day. - MEDICATION, NON-DATABASE Algae Jared - Oil of Oregano [address] ([employer]) Take 1 softgel daily, with meals. - Saccharomyces Boulardii 60 ct. (Klaire/Prothera) Take 1 capsule by mouth two times a day with meals. - COQ10, UBIQUINOL, ORAL Take by mouth. - amLODIPine (NORVASC) 5 mg tablet Take 1 tablet in the AM and 1/2 tablet in the PM. - cholecalciferol (VITAMIN D3) 5,000 unit tab Take 1 tablet by mouth once daily. Meds Comments as of 02/01/2021: Magnesium once daily, Maxxum 4 multi-vitamin po bid -(Maria Luisa Pulse NAC, CO-Q-10 + PQQ), Methyl-Folate - 400 mcg daily, , Aqua Micki HP9 - 1 tsp bid and JarroSil 4 mg daily. 02/01/21 Aqua Fora 2 tablespoons daily Problem List As Of Date 06/25/2024 Noted Resolved Diverticulosis of large intestine [K57.30] Diarrhea [R19.7] 05/05/2008 Internal hemorrhoids without mention of complic*05/05/2008 Vitamin D deficiency [E55.9] 04/06/2009 Celiac disease [K90.0] 08/31/2010 Mixed hyperlipidemia [E78.2] 11/30/2010 Right shoulder pain [M25.511] 09/08/2013 09/18/2014 Disorders of bursae and tendons in shoulder reg*09/08/2013 Peripheral vascular disease (HCC) [I73.9] 02/25/2016 Abdominal aortic aneurysm without rupture (HCC)*03/11/2016 Medicare annual wellness visit, subsequent [Z00*02/08/2017 Neck pain, chronic [M54.2, G89.29] 04/25/2017 Hypertension, essential [I10] 02/02/2018 Bilateral carotid artery stenosis [I65.23] 08/20/2018 Benign prostatic hyperplasia with urinary hesit*12/13/2019 Stage 3 chronic kidney disease (HCC) [N18.30] 02/10/2021 Elevated hemoglobin A1c [R73.09] 02/10/2021 Acute diarrhea [R19.7] 03/01/2021 Hyponatremia [E87.1] 03/01/2021 Hypokalemia [E87.6] 03/02/2021 Severe protein-calorie malnutrition (HCC) [E43] 03/04/2021 Synovial cyst of right popliteal space [M71.21] 02/14/2022 Nonrheumatic aortic valve insufficiency, modera*03/02/2023 Acute ischemic stroke (HCC) [I63.9] 04/04/2023 Rib fractures [S22.49XA] 04/04/2023 Traumatic pneumothorax [S27.0XXA] 04/04/2023 04/06/2023 Cerebrovascular accident (CVA) (HCC) [I63.9] 06/23/2023 Encounter Status:Closed by ANTHONY BARRETT on 06/25/[address] [facility] 06-24-2024 Telephone encounter Note Forms received, partially completed and given to Dr. Dubose for review, completion, and signature. Once signed, please fax to [phone], [facility]. Send copy to medical records for scanning. Peg De Jesus MA [facility] 06-21-2024 Telephone encounter Note Spoke to [place] the patients son, dropping off paperwork for intermittent FMLA for both parents. [facility] Betsey Collado LPN June 21, 2024 11:47 AM [facility] 06-18-2024 Note HNO ID: [id number] Author: KOSTA CHA RN Service: ? Author Type: Registered Nurse Type: Progress Notes Filed: 07/02/2024 09:13 Note Text: CDM ENROLLMENT Provider Action / FYI: Patient identified by name and date of . Discussed care with patient. Program Details Chronic Disease Management Status: Declined CDM Patient declined - Initial Effective Dates: 06/18/2024 - 06/18/2024 Responsible Staff: Kosta Cha RN Support and Services: None active Assessments No documentation this encounter Interventions No episode Kosta Cha RN July 02, 2024 9:[address] [facility] 06-18-2024 History of Presen t illness Narrative documented in this encounter [facility] 06-18-2024 Note Patient Outreach ([facility] RALPHSERGO Kamini ([id number]) 1935 M Date Time Provider Department 06/18/24 KOSTA CHA [facility] During your visit today, we recorded the following information about you: Kosta Cha RN 07/02/2024 9:13 AM Addendum CDM ENROLLMENT Provider Action / FYI: Patient identified by name and date of . Discussed care with patient. Program Details Chronic Disease Management Status: Declined CDM Patient declined - Initial Effective Dates: 06/18/2024 - 06/18/2024 Responsible Staff: Kosta Cha RN Support and Services: None active Assessments No documentation this encounter Interventions No episode Kosta Cha RN July 02, 2024 9:13 AM Allergies As of Date: 06/18/2024 Noted Allergy Reaction GLUTEN 09/23/2011 6 - Diarrhea Comments: Upset stomach Gas build up Date Reviewed: 05/20/2024 Reviewed by: Laura Ambrocio LPN - Fully Assessed Prescriptions as of 07/02/2024 - fludrocortisone (FLORINEF) 0.1 mg tablet Take 0.1 mg by mouth once daily. - QUEtiapine (SEROQUEL) 25 mg tablet Take 1 tablet by mouth three times a day as needed. - clopidogrel (PLAVIX) 75 mg tablet Take 1 tablet by mouth once daily. - testosterone 100 mg/ml cream (CPD) Apply 0.5 mL to affected area once daily for 180 days. - atorvastatin (LIPITOR) 40 mg tablet Take 1 tablet by mouth daily at bedtime. - tamsulosin (FLOMAX) 0.4 mg Take 1 capsule by mouth once daily. - hydrocortisone 2.5 % ointment Apply to itchy areas once daily - metoprolol tartrate, short acting, (LOPRESSOR) 50 mg tablet Take 1 tablet by mouth two times a day. - MEDICATION, NON-DATABASE Algae Jared - Oil of Oregano [address] ([employer]) Take 1 softgel daily, with meals. - Saccharomyces Boulardii 60 ct. (Klaire/Prothera) Take 1 capsule by mouth two times a day with meals. - COQ10, UBIQUINOL, ORAL Take by mouth. - amLODIPine (NORVASC) 5 mg tablet Take 1 tablet in the AM and 1/2 tablet in the PM. - cholecalciferol (VITAMIN D3) 5,000 unit tab Take 1 tablet by mouth once daily. Meds Comments as of 02/01/2021: Magnesium once daily, Maxxum 4 multi-vitamin po bid -(Maria Luisa Pulse NAC, CO-Q-10 + PQQ), Methyl-Folate - 400 mcg daily, , Aqua Micki HP9 - 1 tsp bid and JarroSil 4 mg daily. 02/01/21 Aqua Fora 2 tablespoons daily Problem List As Of Date 06/18/2024 Noted Resolved Diverticulosis of large intestine [K57.30] Diarrhea [R19.7] 05/05/2008 Internal hemorrhoids without mention of complic*05/05/2008 Vitamin D deficiency [E55.9] 04/06/2009 Celiac disease [K90.0] 08/31/2010 Mixed hyperlipidemia [E78.2] 11/30/2010 Right shoulder pain [M25.511] 09/08/2013 09/18/2014 Disorders of bursae and tendons in shoulder reg*09/08/2013 Peripheral vascular disease (HCC) [I73.9] 02/25/2016 Abdominal aortic aneurysm without rupture (HCC)*03/11/2016 Medicare annual wellness visit, subsequent [Z00*02/08/2017 Neck pain, chronic [M54.2, G89.29] 04/25/2017 Hypertension, essential [I10] 02/02/2018 Bilateral carotid artery stenosis [I65.23] 08/20/2018 Benign prostatic hyperplasia with urinary hesit*12/13/2019 Stage 3 chronic kidney disease (HCC) [N18.30] 02/10/2021 Elevated hemoglobin A1c [R73.09] 02/10/2021 Acute diarrhea [R19.7] 03/01/2021 Hyponatremia [E87.1] 03/01/2021 Hypokalemia [E87.6] 03/02/2021 Severe protein-calorie malnutrition (HCC) [E43] 03/04/2021 Synovial cyst of right popliteal space [M71.21] 02/14/2022 Nonrheumatic aortic valve insufficiency, modera*03/02/2023 Acute ischemic stroke (HCC) [I63.9] 04/04/2023 Rib fractures [S22.49XA] 04/04/2023 Traumatic pneumothorax [S27.0XXA] 04/04/2023 04/06/2023 Cerebrovascular accident (CVA) (HCC) [I63.9] 06/23/2023 Encounter Status:Closed by KOSTA CHA on 06/18/[address] [facility] 06-06-2024 Telephone encounter Note Summary: MODLO APPT See spouse Betsey Headings, back to back appointments canceled by hand binder cutter Kesha when I called today. Carrol [facility] 06-06-2024 Miscellaneous Notes Summary: MODLO APPT See spouse Betsey Headings, back to back appointments canceled by hand binder cutter Kesha when I called today. Carrol documented in this encounter [facility] 06-03-2024 Telephone encounter Note Kesha Marinelli, phoned in checking on the refill requests, and given provider's message below. Kesha states she will discuss with patient, but doesn't think he will come in. Reports patient is currently receiving Hospice Care and she will discuss with Hospice also. [facility] 06-03-2024 Miscellaneous Notes Kesha Marinelli, phoned in checking on the refill requests, and given provider's message below. Kesha states she will discuss with patient, but doesn't think he will come in. Reports patient is currently receiving Hospice Care and she will discuss with Hospice also. We have never prescribed the florinef. Was this from recent hospitalization? Also spoke with Dr. Dubose, and he needs seen due to these concerns and that he was to be on the seroquel to help with his mood. Thank you Kevin Bhagat APRN.CNP Patient daughter Kesha calling asking for rx for Lorazepam 0.5 mg one tablet three times daily as needed. they are giving him once daily in morning past few days to calm him. She did not start the Seroquel rx, has questions on that medication. Pending the other rx he is needing. Please advise The patient has been identified by name and date of : Yes Caregiver verified no other encounters exist for this prescription request: Yes Caregiver confirmed with patient/requestor that no other refills are due, in the near future, with this provider at this time: Yes The last office visit in the department: 05/20/2024 Does the patient have a future office visit with this provider/department: Yes 07/18/2024 Requested Prescriptions Pending Prescriptions Disp Refills fludrocortisone (FLORINEF) 0.1 mg tablet Sig: Take 1 tablet by mouth once daily. Sunshine Kim LPN June 01, 2024 9:22 AM documented in this encounter [facility] 06-03-2024 Telephone encounter Note We have never prescribed the florinef. Was this from recent hospitalization? Also spoke with Dr. Dubose, and he needs seen due to these concerns and that he was to be on the seroquel to help with his mood. Thank you Kevin Bhagat APRN.PENNIE [facility] 06-01-2024 Telephone encounter Note Patient daughter Kesha calling asking for rx for Lorazepam 0.5 mg one tablet three times daily as needed. they are giving him once daily in morning past few days to calm him. She did not start the Seroquel rx, has questions on that medication. Pending the other rx he is needing. Please advise The patient has been identified by name and date of : Yes Caregiver verified no other encounters exist for this prescription request: Yes Caregiver confirmed with patient/requestor that no other refills are due, in the near future, with this provider at this time: Yes The last office visit in the department: 05/20/2024 Does the patient have a future office visit with this provider/department: Yes 07/18/2024 Requested Prescriptions Pending Prescriptions Disp Refills fludrocortisone (FLORINEF) 0.1 mg tablet Sig: Take 1 tablet by mouth once daily. Sunshine Kim LPN June 01, 2024 9:22 AM [facility] 05-20-2024 Telephone encounter Note Noted Regards, Kezia Dubose MD [facility] 05-20-2024 Miscellaneous Notes Noted Regards, Kezia Dubose MD Daughter calls with a couple updates prior to appointment this afternoon. Daughter reports that delirium is better than previously so patient feels everything is going to go back to normal. Daughter wants provider to be aware that patient still has desire and intent to drive. Asking if provider could reinforce that he needs an assessment before he is able to drive again. Currently family has keys hidden. Patient is also on [facility] but patient is not aware of this. Family feels he is not in the right state of mind to have this information and asks that at appointment it not be mentioned. Passing information on as requested. No information given to daughter as only listed as emergency contact. Daughter bringing patient to appointment. Louisa Platt RN documented in this encounter [facility] 05-20-2024 Note HNO ID: [id number] Author: KEZIA DUBOSE MD Service: ? Author Type: Physician Type: Progress Notes Filed: 05/20/2024 17:06 Note Text: CC: Patient presents with: Hospital F/U: syncope discharged on 05/14/24 HPI Sergo E Headings is a 88 year old male h/o stroke 2022, Hypertension, hyperlipidemia, collagenase colitis with concerns for dehydration as he tolerates very small variety of foods. Eating anything that he does not tolerate will give him diarrhea and with his age he is very prone to dehydration which is very concerning for him and his 04/24/2024: Sergo was in the ER for an episode of being unresponsive for couple of minutes along with vomiting. He was visiting his in the hospital when this happened. ED workup was done immediately as he was within the hospital for Misys. His CT was negative for any intracranial process. The fact they found foci of encephalomalacia within the right frontal and right parietal occipital lobes that was consistent with old infarcts. They did find sodium to be only 120.. He was found to be orthostatic and was hydrated. He was offered an echo which he did not want to get them. They started Zoloft on him which could causehyponatremia but family did not give him the medication. She has been having some type of sundowning behaviors Sleeping at night without interruptions, got 10 hours of sleep last night. 04/2024 Sergo was admitted to the hospital from the ER after having an episode of syncope when he went to see his Betsey was admitted in the hospital. After that time he was then sent to the rehab for 10 days. He was treated for SIADH with salt tablets along with water restriction, hypomagnesemia, questionable stroke and delirium. At home he is doing much better right now. It is taking a lot of time for him to get back to being almost normal. He is getting 24-hour care at home from members of the family and overall in a stable state. He was supposed to be using walker but he was carrying his walker around so was asked to stop it. REVIEW OF SYSTEMS See HPI. PAST MEDICAL HISTORY 03/11/2016: Abdominal aortic aneurysm without rupture (HCC) Comment: Sees Dr. Singh 12/13/2019: Benign prostatic hyperplasia with urinary hesitancy Comment: Had 10h of urinary retention, Voided x2 since chang removed but small volume Begun on flomax 12/11 Obtain postvoid residual to ensure no overflow incontinence 08/20/2018: Bilateral carotid artery stenosis 08/31/2010: Celiac disease 09/08/2013: Disorders of bursae and tendons in shoulder region, unspecified No date: Diverticulosis of large intestine 02/10/2021: Elevated hemoglobin A1c 02/02/2018: Hypertension, essential 05/05/2008: Internal hemorrhoids without mention of complication 11/30/2010: Mixed hyperlipidemia 02/25/2016: Peripheral vascular disease (HCC) 02/10/2021: Stage 3a chronic kidney disease (HCC) 03/2023: Stroke, Ischemic - Right Parietal, Right Temporal-Occipital, Middle Cerebral Peduncle AND Right Cerebellar 02/14/2022: Synovial cyst of right popliteal space 04/06/2009: Vitamin D deficiency PAST SURGICAL HISTORY 11/2019: ABD AORTA ANEURYSM REPAIR 03/23/2004: COLONOSCOPY FLX DX W/COLLJ SPEC WHEN PFRMD Comment: Colonoscopy 05/05/2008: COLONOSCOPY FLX DX W/COLLJ SPEC WHEN PFRMD Comment: Colonoscopy, repeat 10 yrs 04/14/2004: PAST SURGICAL HISTORY OF Comment: excision of lesion neck 02/21/1992: PAST SURGICAL HISTORY OF Comment: lesion removed from rectum ALLERGIES Gluten MEDICATIONS fludrocortisone (FLORINEF) 0.1 mg tabletTake 0.1 mg by mouth once daily.Disp: Rfl: QUEtiapine (SEROQUEL) 25 mg tabletTake 1 tablet by mouth three times a day as needed.Disp: 20 tabletRfl: 0 clopidogrel (PLAVIX) 75 mg tabletTake 1 tablet by mouth once daily.Disp: 30 tabletRfl: 11 atorvastatin (LIPITOR) 40 mg tabletTake 1 tablet by mouth daily at bedtime.Disp: 90 tabletRfl: 3 tamsulosin (FLOMAX) 0.4 mgTake 1 capsule by mouth once daily.Disp: 90 capsuleRfl: 3 hydrocortisone 2.5 % ointmentApply to itchy areas once dailyDisp: 454 gRfl: 1 amLODIPine (NORVASC) 5 mg tabletTake 1 tablet in the AM and 1/2 tablet in the PM.Disp: 135 tabletRfl: 3 cholecalciferol (VITAMIN D3) 5,000 unit tabTake 1 tablet by mouth once daily.Disp: Rfl: testosterone 100 mg/ml cream (CPD)Apply 0.5 mL to affected area once daily for 180 days.Disp: 60 mLRfl: 1 (Patient not taking: Reported on 05/20/2024) metoprolol tartrate, short acting, (LOPRESSOR) 50 mg tabletTake 1 tablet by mouth two times a day.Disp: 180 tabletRfl: 3 (Patient not taking: Reported on 05/20/2024) MEDICATION, NON-DATABASEAlgae CalDisp: Rfl: (Patient not taking: Reported on 05/20/2024) Oil of Oregano [address] (Manta for [employer])Take 1 softgel daily, with meals.Disp: Rfl: (Patient not taking: Reported on 05/20/2024) Saccharomyces Boulardii 60 ct. (Klaire/Prothera)Take 1 capsule by mouth two times a day with meals.Disp: Rfl: (Pat (more content not included)... [facility] 05-20-2024 History of Presen t illness Narrative CC: Patient presents with: Hospital F/U: syncope discharged on 05/14/24 HPI Sergo Suárez Headings is a 88 year old male h/o stroke 2022, Hypertension, hyperlipidemia, collagenase colitis with concerns for dehydration as he tolerates very small variety of foods. Eating anything that he does not tolerate will give him diarrhea and with his age he is very prone to dehydration which is very concerning for him and his 04/24/2024: Sergo was in the ER for an episode of being unresponsive for couple of minutes along with vomiting. He was visiting his in the hospital when this happened. ED workup was done immediately as he was within the hospital for Misys. His CT was negative for any intracranial process. The fact they found foci of encephalomalacia within the right frontal and right parietal occipital lobes that was consistent with old infarcts. They did find sodium to be only 120.. He was found to be orthostatic and was hydrated. He was offered an echo which he did not want to get them. They started Zoloft on him which could cause hyponatremia but family did not give him the medication. She has been having some type of sundowning behaviors Sleeping at night without interruptions, got 10 hours of sleep last night. 04/2024 Sergo was admitted to the hospital from the ER after having an episode of syncope when he went to see his Betsey was admitted in the hospital. After that time he was then sent to the rehab for 10 days. He was treated for SIADH with salt tablets along with water restriction, hypomagnesemia, questionable stroke and delirium. At home he is doing much better right now. It is taking a lot of time for him to get back to being almost normal. He is getting 24-hour care at home from members of the family and overall in a stable state. He was supposed to be using walker but he was carrying his walker around so was asked to stop it. REVIEW OF SYSTEMS See HPI. PAST MEDICAL HISTORY 03/11/2016: Abdominal aortic aneurysm without rupture (HCC) Comment: Sees Dr. Singh 12/13/2019: Benign prostatic hyperplasia with urinary hesitancy Comment: Had 10h of urinary retention, Voided x2 since chang removed but small volume Begun on flomax 12/11 Obtain postvoid residual to ensure no overflow incontinence 08/20/2018: Bilateral carotid artery stenosis 08/31/2010: Celiac disease 09/08/2013: Disorders of bursae and tendons in shoulder region, unspecified No date: Diverticulosis of large intestine 02/10/2021: Elevated hemoglobin A1c 02/02/2018: Hypertension, essential 05/05/2008: Internal hemorrhoids without mention of complication 11/30/2010: Mixed hyperlipidemia 02/25/2016: Peripheral vascular disease (HCC) 02/10/2021: Stage 3a chronic kidney disease (HCC) 03/2023: Stroke, Ischemic - Right Parietal, Right Temporal-Occipital, Middle Cerebral Peduncle & Right Cerebellar 02/14/2022: Synovial cyst of right popliteal space 04/06/2009: Vitamin D deficiency PAST SURGICAL HISTORY 11/2019: ABD AORTA ANEURYSM REPAIR 03/23/2004: COLONOSCOPY FLX DX W/COLLJ SPEC WHEN PFRMD Comment: Colonoscopy 05/05/2008: COLONOSCOPY FLX DX W/COLLJ SPEC WHEN PFRMD Comment: Colonoscopy, repeat 10 yrs 04/14/2004: PAST SURGICAL HISTORY OF Comment: excision of lesion neck 02/21/1992: PAST SURGICAL HISTORY OF Comment: lesion removed from rectum ALLERGIES Gluten MEDICATIONS fludrocortisone (FLORINEF) 0.1 mg tablet^Take 0.1 mg by mouth once daily.^Disp: ^Rfl: QUEtiapine (SEROQUEL) 25 mg tablet^Take 1 tablet by mouth three times a day as needed.^Disp: 20 tablet^Rfl: 0 clopidogrel (PLAVIX) 75 mg tablet^Take 1 tablet by mouth once daily.^Disp: 30 tablet^Rfl: 11 atorvastatin (LIPITOR) 40 mg tablet^Take 1 tablet by mouth daily at bedtime.^Disp: 90 tablet^Rfl: 3 tamsulosin (FLOMAX) 0.4 mg^Take 1 capsule by mouth once daily.^Disp: 90 capsule^Rfl: 3 hydrocortisone 2.5 % ointment^Apply to itchy areas once daily^Disp: 454 g^Rfl: 1 amLODIPine (NORVASC) 5 mg tablet^Take 1 tablet in the AM and 1/2 tablet in the PM.^Disp: 135 tablet^Rfl: 3 cholecalciferol (VITAMIN D3) 5,000 unit tab^Take 1 tablet by mouth once daily.^Disp: ^Rfl: testosterone 100 mg/ml cream (CPD)^Apply 0.5 mL to affected area once daily for 180 days.^Disp: 60 mL^Rfl: 1 (Patient not taking: Reported on 05/20/2024) metoprolol tartrate, short acting, (LOPRESSOR) 50 mg tablet^Take 1 tablet by mouth two times a day.^Disp: 180 tablet^Rfl: 3 (Patient not taking: Reported on 05/20/2024) MEDICATION, NON-DATABASE^Algae Jared^Disp: ^Rfl: (Patient not taking: Reported on 05/20/2024) Oil of Oregano [address] ([employer])^Take 1 softgel daily, with meals.^Disp: ^Rfl: (Patient not taking: Reported on 05/20/2024) Saccharomyces Boulardii 60 ct. (Klaire/Prothera)^Take 1 capsule by mouth two times a day with meals.^Disp: ^Rfl: (Patient not taking: Reported on 05/20/2024) COQ10, UBIQUINOL, ORAL^Take by mouth.^Disp: ^Rfl: (Patient not taking: Reported on 05/20/2024) FAMILY HISTORY Problem Relation Age of Onset Stroke Father other (lupus) Sister Diabetes Brother Diabetes Brother Social History Tobacco Use Smoking status: Never Smokeless tobacco: Never Substance Use Topics Alcohol use: No Drug use: Never PHYSICAL EXAM BP 163/77 Pulse 73 Wt 63.7 kg (140 lb 6.4 oz) SpO2 98% BMI 21.35 kg/m General Appearance: well appearing, in no acute distress, alert Eyes: PERRLA, EOM's intact, conjunctiva pink and moist, no icterus, sclera white, non-injected Lungs: Lungs clear to auscultation. No wheezing, rhonchi, rales. Heart: RRR without murmur, gallop, or rubs. No ectopy Delirium screen: the patient was able to count back from 20 to 1 and from backwards from Monday. Health maintenance reviewed with patient: Depression Screening Never done Anxiety Screening Never done Shingrix Vaccine(1 of 2) due on 06/26/2024 RSV Vaccine(1 - 1-dose 60+ series) due on 10/02/2024 Influenza Vaccine(1) due on 05/26/2024 DTaP,Tdap,Td Vaccine(4 - Tdap) due on 04/04/2026 Diabetes Screening due on 03/27/2027 Advance Directive Discussion Completed Pneumococcal Vaccine: 65+ Completed Covid-19 Vaccine Discontinued ASSESSMENT/PLAN: 1. 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 He is restricting fluids and his delirium is much much improved. Will check the electrolytes. - BASIC METABOLIC PANEL - MAGNESIUM 2. Weakness of both lower extremities - ICD9: 729.89, ICD10: R29.898 - CONSULT TO PHYSICAL THERAPY 3. Anemia, unspecified type - ICD9: 285.9, ICD10: D64.9 - COMPLETE BLOOD COUNT AND DIFFERENTIAL 4. Hypomagnesemia - ICD9: 275.2, ICD10: E83.42 Will check the magnesium level. Kezia Dubose MD documented in this encounter [facility] 05-20-2024 Telephone encounter Note Daughter calls with a couple updates prior to appointment this afternoon. Daughter reports that delirium is better than previously so patient feels everything is going to go back to normal. Daughter wants provider to be aware that patient still has desire and intent to drive. Asking if provider could reinforce that he needs an assessment before he is able to drive again. Currently family has keys hidden. Patient is also on [facility] but patient is not aware of this. Family feels he is not in the right state of mind to have this information and asks that at appointment it not be mentioned. Passing information on as requested. No information given to daughter as only listed as emergency contact. Daughter bringing patient to appointment. Louisa Platt RN [facility] 05-15-2024 Note HNO ID: [id number] Author: INDIA WOODSON RN Service: ? Author Type: Registered Nurse Type: Progress Notes Filed: 05/15/2024 13:43 Note Text: [facility] Telephonic Outreach Provider Action/FYI Contacted for: Routine Telephonic Outreach Contact made with patient: Yes Patient identified by name and date of . Discussed care with spouse, Betsey Are you experiencing any new or worsening symptoms you need to talk about today? No reported patient discharged from [facility] 05/14/2024 -Low sodium -Reason cannot remember Disease Specific Do you check your blood pressure at home? Yes, Enter readings: Daily - did not take today since discharged from [facility] yesterday Do you have new or worsening shortness of breath with activity? No Do you feel like you are dehydrated for any reason, including not being able to eat or drink normally, or having less urine/much darker urine than normal for you? No Do you check your daily weight at home? 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 Routed to: No Action Needed VILMA Education Provided this Outreach: No Stated nurse visited patient at home yesterday Admission AND Discharge information for [facility] not in [facility] needs at this time Advised PCC would call again in about 1 month Reminded patient to call office of PCP with questions or concerns Patient verbalized understanding India Woodson RN May 15, 2024 1:33 PM [facility] Telephonic Outreach Provider Action/FYI Contacted for: Routine Telephonic Outreach Contact made with patient: No, left message. Leelee Bautista, this message is for Sergo! It's India Woodson, his Registered Nurse Store Mgr at [facility]. I work with his provider, Kezia Dubose MD. I am calling today for our monthly check in and I am sorry I missed you. I will reach out again tomorrow. If there is a question or concern, please reach out to his provider, Kezia Dubose MD. I hope you are both having a great day. India Woodson RN Store Mgr for MD India Mcneill RN May 15, 2024 1:[address] [facility] 05-15-2024 History of Presen t illness Narrative [facility] Telephonic Outreach Provider Action/FYI Contacted for: Routine Telephonic Outreach Contact made with patient: Yes Patient identified by name and date of . Discussed care with spouse, Betsey Are you experiencing any new or worsening symptoms you need to talk about today? No reported patient discharged from [facility] 05/14/2024 -Low sodium -Reason cannot remember Disease Specific Do you check your blood pressure at home? Yes, Enter readings: Daily - did not take today since discharged from [facility] yesterday Do you have new or worsening shortness of breath with activity? No Do you feel like you are dehydrated for any reason, including not being able to eat or drink normally, or having less urine/much darker urine than normal for you? No Do you check your daily weight at home? 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 Routed to: No Action Needed VILMA Education Provided this Outreach: No Stated nurse visited patient at home yesterday Admission & Discharge information for [facility] not in [facility] needs at this time Advised PCC would call again in about 1 month Reminded patient to call office of PCP with questions or concerns Patient verbalized understanding India Woodson RN May 15, 2024 1:33 PM [facility] Telephonic Outreach Provider Action/FYI Contacted for: Routine Telephonic Outreach Contact made with patient: No, left message. Leelee Bautista, this message is for Sergo! It's India Woodson, his Registered Nurse Store Mgr at [facility]. I work with his provider, Kezia Dubose MD. I am calling today for our monthly check in and I am sorry I missed you. I will reach out again tomorrow. If there is a question or concern, please reach out to his provider, Kezia Dubose MD. I hope you are both having a great day. India Woodson RN Store Mgr for MD India Mcneill RN May 15, 2024 1:25 PM documented in this encounter [facility] 05-15-2024 Note Patient Outreach (AM BC) HEADINGS,SERGO Suárez ([id number]) 1935 M Date Time Provider Department 05/15/24 INDIA WOODSON During your visit today, we recorded the following information about you: India Woodson RN 05/15/2024 1:43 PM Signed [facility] Telephonic Outreach Provider Action/FYI Contacted for: Routine Telephonic Outreach Contact made with patient: Yes Patient identified by name and date of . Discussed care with spouse, Betsey Are you experiencing any new or worsening symptoms you need to talk about today? No reported patient discharged from [facility] 05/14/2024 -Low sodium -Reason cannot remember Disease Specific Do you check your blood pressure at home? Yes, Enter readings: Daily - did not take today since discharged from [facility] yesterday Do you have new or worsening shortness of breath with activity? No Do you feel like you are dehydrated for any reason, including not being able to eat or drink normally, or having less urine/much darker urine than normal for you? No Do you check your daily weight at home? 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 Routed to: No Action Needed VILMA Education Provided this Outreach: No Stated nurse visited patient at home yesterday Admission AND Discharge information for [facility] not in [facility] needs at this time Advised PCC would call again in about 1 month Reminded patient to call office of PCP with questions or concerns Patient verbalized understanding India Woodson RN May 15, 2024 1:33 PM [facility] Telephonic Outreach Provider Action/FYI Contacted for: Routine Telephonic Outreach Contact made with patient: No, left message. Leelee Bautista, this message is for Sergo! It's India Woodson, his Registered Nurse Store Mgr at [facility]. I work with his provider, Kezia Dubose MD. I am calling today for our monthly check in and I am sorry I missed you. I will reach out again tomorrow. If there is a question or concern, please reach out to his provider, Kezia Dubose MD. I hope you are both having a great day. India Woodson, RN Store Mgr for MD India Mcneill RN May 15, 2024 1:25 PM Allergies As of Date: 05/15/2024 Noted Allergy Reaction GLUTEN 09/23/2011 6 - Diarrhea Comments: Upset stomach Gas build up Date Reviewed: 04/24/2024 Reviewed by: Peg De Jesus MA - Fully Assessed Reason for Visit: Community Monitoring Outreach [Other] Cmt: CDM Telephonic Outreach Prescriptions as of 05/23/2024 - fludrocortisone (FLORINEF) 0.1 mg tablet Take 0.1 mg by mouth once daily. - QUEtiapine (SEROQUEL) 25 mg tablet Take 1 tablet by mouth three times a day as needed. - clopidogrel (PLAVIX) 75 mg tablet Take 1 tablet by mouth once daily. - testosterone 100 mg/ml cream (CPD) Apply 0.5 mL to affected area once daily for 180 days. - atorvastatin (LIPITOR) 40 mg tablet Take 1 tablet by mouth daily at bedtime. - tamsulosin (FLOMAX) 0.4 mg Take 1 capsule by mouth once daily. - hydrocortisone 2.5 % ointment Apply to itchy areas once daily - metoprolol tartrate, short acting, (LOPRESSOR) 50 mg tablet Take 1 tablet by mouth two times a day. - MEDICATION, NON-DATABASE Algae Jared - Oil of Oregano 150 mg[address] 60 ct. ([employer]) Take 1 softgel daily, with meals. - Saccharomyces Boulardii 60 ct. (Klaire/Prothera) Take 1 capsule by mouth two times a day with meals. - COQ10, UBIQUINOL, ORAL Take by mouth. - amLODIPine (NORVASC) 5 mg tablet Take 1 tablet in the AM and 1/2 tablet in the PM. - cholecalciferol (VITAMIN D3) 5,000 unit tab Take 1 tablet by mouth once daily. Facility-Administered Medications as of 05/23/2024 - perflutren lipid microspheres 1.3 mL in NaCl (PF) 0.9% 10 mL injection (DEFINITY) - sodium chloride 0.9 % (flush) 10 mL (BD POSIFLUSH) Meds Comments as of 02/01/2021: Magnesium once daily, Maxxum 4 multi-vitamin po bid -(Maria Luisa Pulse NAC, CO-Q-10 + PQQ), Methyl-Folate - 400 mcg daily, , Aqua Micki HP9 - 1 tsp bid and JarroSil 4 mg daily. 02/01/21 Aqua Fora 2 tablespoons daily Problem List As Of Date 05/15/2024 Noted Resolved Diverticulosis of large intestine [K57.30] Diarrhea [R19.7] 05/05/2008 Internal hemorrhoids without mention of complic*05/05/2008 Vitamin D deficiency [E55.9] 04/06/2009 Celiac disease [K90.0] 08/31/2010 Mixed hyperlipidemia [E78.2] 11/30/2010 Right shoulder pain [M25.511] 09/08/2013 09/18/2014 Disorders of bursae and tendons in shoulder reg*09/08/2013 Peripheral vascular disease (HCC) [I73.9] 02/25/2016 Abdominal aortic aneurysm without rupture (HCC)*03/11/2016 Medicare annual wellness visit, subsequent [Z00*02/08/2017 Neck pain, chron (more content not included)... [facility] 05-10-2024 Note HNO ID: [id number] Author: INDIA WOODSON, RN Service: ? Author Type: Registered Nurse Type: Progress Notes Filed: 05/10/2024 15:54 Note Text: Opened in Error [facility] 05-10-2024 History of Presen t illness Narrative Opened in Error documented in this encounter [facility] 04-27-2024 Telephone encounter Note Kesha calls with patient update. Patient currently is at TCU at [facility]. Insurance improved for him to be there till the . Patient continues with delirium, but daughter hopes that he will start improving. Ranjana Godinez RN [facility] 04-27-2024 Miscellaneous Notes Kesha calls with patient update. Patient currently is at TCU at [facility]. Insurance improved for him to be there till the . Patient continues with delirium, but daughter hopes that he will start improving. Ranjana Godinez RN Patient admitted to [facility] TCU 04/26/2024. Ranjana Godinez RN Thank you, waiting for the response for them Regards, Kezia Dubose MD Spoke with patient's daughter, Kesha. Given message from provider's office. She is hoping for TCU admission tomorrow and will call back with update. Deyanira Jose RN Yes absolutely, patient can take sodium tablet. Would it be possible for her to come tomorrow morning to get the labs done because we need to know what is happening with his sodium and his hydration. Regards, Kezia Dubose MD Called and spoke to patients daughter Kesha, patient is eating and drinking, drank around 44 ounces of broth with liquid nutrition since this morning. Urinating 3 to 4 times, gait is unsteady. Kesha called [facility] licensed social worker and they are going to work on patient getting placed into TCU at [facility] either tomorrow or Monday. feed in worker stated may need a referral from Dr Dubose. Daughter asking if patient can take a sodium tablet? Betsey Collado LPN April 25, 2024 4:44 PM Patient's daughter calls back and is asking if provider advised on below. Daughter also asking if there is home nursing that can come into home to draw labs? Patient still confused. Please review and advise, Ranjana Godinez RN Patient's daughter calls and states that patient is continuing with his delirium. Daughter asking if there are any other testing that can be done? 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 Daughter states that they have been trying to get sodium in patient's diet. Daughter asking how long should it take until they start seeing some improvement? Daughter also asking if there is any way patient can be placed in a skilled unit so that he can be monitored? Please review and advise, Ranjana Godinez RN documented in this encounter [facility] 04-27-2024 Telephone encounter Note Patient admitted to [facility] TCU 04/26/2024. Ranjana Godinez RN [facility] 04-26-2024 Telephone encounter Note Thank you, waiting for the response for them Regards, Kezia Dubose MD [facility] 04-25-2024 Telephone encounter Note Spoke with patient's daughter, Kesha. Given message from provider's office. She is hoping for TCU admission tomorrow and will call back with update. Deyanira Jose RN [facility] 04-25-2024 Telephone encounter Note Yes absolutely, patient can take sodium tablet. Would it be possible for her to come tomorrow morning to get the labs done because we need to know what is happening with his sodium and his hydration. Regards, Kezia Dubose MD [facility] 04-25-2024 Telephone encounter Note Called and spoke to patients daughter Kesha, patient is eating and drinking, drank around 44 ounces of broth with liquid nutrition since this morning. Urinating 3 to 4 times, gait is unsteady. Kesha called [facility] licensed social worker and they are going to work on patient getting placed into TCU at [facility] either tomorrow or Monday. feed in worker stated may need a referral from Dr Dubose. Daughter asking if patient can take a sodium tablet? Betsey Collado LPN April 25, 2024 4:44 PM [facility] 04-25-2024 Telephone encounter Note Patient's daughter calls back and is asking if provider advised on below. Daughter also asking if there is home nursing that can come into home to draw labs? Patient still confused. Please review and advise, Ranjana Godinez RN [facility] 04-25-2024 Telephone encounter Note Patient's daughter calls and states that patient is continuing with his delirium. Daughter asking if there are any other testing that can be done? 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 Daughter states that they have been trying to get sodium in patient's diet. Daughter asking how long should it take until they start seeing some improvement? Daughter also asking if there is any way patient can be placed in a skilled unit so that he can be monitored? Please review and advise, Ranjana Godinez RN [facility] 04-24-2024 Instructions Kezia Dubose MD - 04/24/2024 3:41 PM EDT I think he has delirium from the sodium becoming very low, I am hoping he can regain and come back to normal Usually delirium happens in those who have an underlying cognitive issues and his stroke could be the one for him. Makes sure to give him around 60 ounces of fluids. Good for soups, oral rehydration solutions, Take a liter of water and add a pinch of salt and half a lemon, can give him a couple glasses a day. The solution should taste almost like tears Make sure he is having daily BMS- and passing urine at least 3 times in 24 hours. Let us know if he complains of pain. Ignore owning unless he has behaviors that are harming you and him Can give seroquel 25 mgs for behaviors if they are unsafe for him or caregiver. Can give tylenol if he complains of pain -Delirium Precautions: frequent reorientation, keep patient awake during the day, minimize nocturnal disturbances such as Manage pain, encourage Out of bed as tolerated. Speak to patient in preferred language. documented in this encounter [facility] 04-24-2024 History of Presen t illness Narrative CC: Patient presents with: Hospital F/U: HPI Sergo Suárez Headings is a 88 year old male h/o stroke 2022, Hypertension, hyperlipidemia, collagenase colitis with concerns for dehydration as he tolerates very small variety of foods. Eating anything that he does not tolerate will give him diarrhea and with his age he is very prone to dehydration which is very concerning for him and his 04/24/2025: Sergo was in the ER for an episode of being unresponsive for couple of minutes along with vomiting. He was visiting his in the hospital when this happened. ED workup was done immediately as he was within the hospital for Mis[facility]. His CT was negative for any intracranial process. The fact they found foci of encephalomalacia within the right frontal and right parietal occipital lobes that was consistent with old infarcts. They did find sodium to be only 120.. He was found to be orthostatic and was hydrated. He was offered an echo which he did not want to get them. They started Zoloft on him which could cause hyponatremia but family did not give him the medication. She has been having some type of sundowning behaviors Sleeping at night without interruptions, got 10 hours of sleep last night. REVIEW OF SYSTEMS See HPI. PAST MEDICAL HISTORY 03/11/2016: Abdominal aortic aneurysm without rupture (HCC) Comment: Sees Dr. Singh 12/13/2019: Benign prostatic hyperplasia with urinary hesitancy Comment: Had 10h of urinary retention, Voided x2 since chang removed but small volume Begun on flomax 12/11 Obtain postvoid residual to ensure no overflow incontinence 08/20/2018: Bilateral carotid artery stenosis 08/31/2010: Celiac disease 09/08/2013: Disorders of bursae and tendons in shoulder region, unspecified No date: Diverticulosis of large intestine 02/10/2021: Elevated hemoglobin A1c 02/02/2018: Hypertension, essential 05/05/2008: Internal hemorrhoids without mention of complication 11/30/2010: Mixed hyperlipidemia 02/25/2016: Peripheral vascular disease (HCC) 02/10/2021: Stage 3a chronic kidney disease (HCC) 03/2023: Stroke, Ischemic - Right Parietal, Right Temporal-Occipital, Middle Cerebral Peduncle & Right Cerebellar 02/14/2022: Synovial cyst of right popliteal space 04/06/2009: Vitamin D deficiency PAST SURGICAL HISTORY 11/2019: ABD AORTA ANEURYSM REPAIR 03/23/2004: COLONOSCOPY FLX DX W/COLLJ SPEC WHEN PFRMD Comment: Colonoscopy 05/05/2008: COLONOSCOPY FLX DX W/COLLJ SPEC WHEN PFRMD Comment: Colonoscopy, repeat 10 yrs 04/14/2004: PAST SURGICAL HISTORY OF Comment: excision of lesion neck 02/21/1992: PAST SURGICAL HISTORY OF Comment: lesion removed from rectum ALLERGIES Gluten MEDICATIONS clopidogrel (PLAVIX) 75 mg tablet^Take 1 tablet by mouth once daily.^Disp: 30 tablet^Rfl: 11 testosterone 100 mg/ml cream (CPD)^Apply 0.5 mL to affected area once daily for 180 days.^Disp: 60 mL^Rfl: 1 LORazepam (ATIVAN) 0.5 mg^Take 1 tablet by mouth three times a day as needed (anxiety) for up to 14 days.^Disp: 14 tablet^Rfl: 1 atorvastatin (LIPITOR) 40 mg tablet^Take 1 tablet by mouth daily at bedtime.^Disp: 90 tablet^Rfl: 3 tamsulosin (FLOMAX) 0.4 mg^Take 1 capsule by mouth once daily.^Disp: 90 capsule^Rfl: 3 hydrocortisone 2.5 % ointment^Apply to itchy areas once daily^Disp: 454 g^Rfl: 1 MEDICATION, NON-DATABASE^Algae Jared^Disp: ^Rfl: Oil of Oregano 150 mg. 60 ct. ([employer])^Take 1 softgel daily, with meals.^Disp: ^Rfl: Saccharomyces Boulardii 60 ct. (Klaire/Prothera)^Take 1 capsule by mouth two times a day with meals.^Disp: ^Rfl: COQ10, UBIQUINOL, ORAL^Take by mouth.^Disp: ^Rfl: amLODIPine (NORVASC) 5 mg tablet^Take 1 tablet in the AM and 1/2 tablet in the PM.^Disp: 135 tablet^Rfl: 3 cholecalciferol (VITAMIN D3) 5,000 unit tab^Take 1 tablet by mouth once daily.^Disp: ^Rfl: QUEtiapine (SEROQUEL) 25 mg tablet^Take 1 tablet by mouth three times a day as needed.^Disp: 20 tablet^Rfl: 0 metoprolol tartrate, short acting, (LOPRESSOR) 50 mg tablet^Take 1 tablet by mouth two times a day.^Disp: 180 tablet^Rfl: 3 FAMILY HISTORY Problem Relation Age of Onset Stroke Father other (lupus) Sister Diabetes Brother Diabetes Brother Social History Tobacco Use Smoking status: Never Smokeless tobacco: Never Substance Use Topics Alcohol use: No Drug use: Never PHYSICAL EXAM BP 128/64 Pulse 80 Resp 16 General Appearance: well appearing, in no acute distress, alert Eyes: PERRLA, EOM's intact, conjunctiva pink and moist, no icterus, sclera white, non-injected Lungs: Lungs clear to auscultation. No wheezing, rhonchi, rales. Heart: RRR without murmur, gallop, or rubs. No ectopy Health maintenance reviewed with patient: Depression Screening Never done Anxiety Screening Never done Shingrix Vaccine(1 of 2) due on 06/26/2024 RSV Vaccine(1 - 1-dose 60+ series) due on 10/02/2024 Influenza Vaccine(1) due on 05/26/2024 DTaP,Tdap,Td Vaccine(4 - Tdap) due on 04/04/2026 Diabetes Screening due on 03/27/2027 Advance Directive Discussion Completed Pneumococcal Vaccine: 65+ Completed Covid-19 Vaccine Discontinued ASSESSMENT/PLAN: 1. Delirium, acute - ICD9: 780.09, ICD10: R41.0 (primary diagnosis) I think he has underlying cognitive issues large part of it could be from his stroke which caused some encephalomalacia that is very evident on the CT scan. It was reported as a foci of encephalomalacia within the right frontal and right parietal and right occipital lobes consistent with an old infarct. - CONSULT TO NEPHROLOGY I think he has delirium from the sodium becoming very low, I am hoping he can regain and come back to normal Usually delirium happens in those who have an underlying cognitive issues and his stroke could be the one for him. Makes sure to give him around 60 ounces of fluids. Good for soups, oral rehydration solutions, Take a liter of water and add a pinch of salt and half a lemon, can give him a couple glasses a day. The solution should taste almost like tears Make sure he is having daily BMS- and passing urine at least 3 times in 24 hours. Let us know if he complains of pain. Ignore unless he has behaviors that are harming you and him Can give seroquel 25 mgs for behaviors if they are unsafe for him or caregiver. Can give tylenol if he complains of pain -Delirium Precautions: frequent reorientation, keep patient awake during the day, minimize nocturnal disturbances such as Manage pain, encourage Out of bed as tolerated. Speak to patient in preferred language. 2. Hyponatremia - ICD9: 276.1, ICD10: E87.1 He has always struggled with hyponatremia, the exact cause of this is not known but I think that his sudden reduction from 123 sodium to 120 is likely the cause of the vomiting and precipitation of this altered mental status in addition it precipitated his delirium. He is very sensitive to fluid balances because of his lymphocytic colitis and diarrhea. He is also being told to be very careful with his salt and and sugar intake. He has not been eating enough of salt. I discussed in detail the need for him to take a little bit more salt because of his low sodium. If he has SIADH he probably should restrict fluid. I asked him to not take pure water to that he is not orthostatic but to take rehydration solutions and have salt in it. - BASIC METABOLIC PANEL - MAGNESIUM - CONSULT TO NEPHROLOGY 3. Prediabetes - ICD9: 790.29, ICD10: R73.03 - THYROID STIMULATING HORMONE 4. Severe protein-calorie malnutrition (HCC) - ICD9: 262, ICD10: E43 -He has a difficult time with weight gain because of all the fluid restrictions that he 5. Acute ischemic stroke (HCC) - ICD9: 434.91, ICD10: I63.9 6. Testosterone deficiency - ICD9: 259.9, ICD10: E34.9 Recheck labs. - TESTOSTERONE BIOAVAILABLE Kezia Dubose MD documented in this encounter [facility] 04-24-2024 Note HNO ID: [id number] Author: KEZIA DUBOSE MD Service: ? Author Type: Physician Type: Progress Notes Filed: 04/24/2024 17:47 Note Text: CC: Patient presents with: Hospital F/U: HPI Sergo Suárez Headings is a 88 year old male h/o stroke 2022, Hypertension, hyperlipidemia, collagenase colitis with concerns for dehydration as he tolerates very small variety of foods. Eating anything that he does not tolerate will give him diarrhea and with his age he is very prone to dehydration which is very concerning for him and his 04/24/2025: Sergo was in the ER for an episode of being unresponsive for couple of minutes along with vomiting. He was visiting his in the hospital when this happened. ED workup was done immediately as he was within the hospital for Misys. His CT was negative for any intracranial process. The fact they found foci of encephalomalacia within the right frontal and right parietal occipital lobes that was consistent with old infarcts. They did find sodium to be only 120.. He was found to be orthostatic and was hydrated. He was offered an echo which he did not want to get them. They started Zoloft on him which could causehyponatremia but family did not give him the medication. She has been having some type of sundowning behaviors Sleeping at night without interruptions, got 10 hours of sleep last night. REVIEW OF SYSTEMS See HPI. PAST MEDICAL HISTORY 03/11/2016: Abdominal aortic aneurysm without rupture (HCC) Comment: Sees Dr. Singh 12/13/2019: Benign prostatic hyperplasia with urinary hesitancy Comment: Had 10h of urinary retention, Voided x2 since chang removed but small volume Begun on flomax 12/11 Obtain postvoid residual to ensure no overflow incontinence 08/20/2018: Bilateral carotid artery stenosis 08/31/2010: Celiac disease 09/08/2013: Disorders of bursae and tendons in shoulder region, unspecified No date: Diverticulosis of large intestine 02/10/2021: Elevated hemoglobin A1c 02/02/2018: Hypertension, essential 05/05/2008: Internal hemorrhoids without mention of complication 11/30/2010: Mixed hyperlipidemia 02/25/2016: Peripheral vascular disease (HCC) 02/10/2021: Stage 3a chronic kidney disease (HCC) 03/2023: Stroke, Ischemic - Right Parietal, Right Temporal-Occipital, Middle Cerebral Peduncle AND Right Cerebellar 02/14/2022: Synovial cyst of right popliteal space 04/06/2009: Vitamin D deficiency PAST SURGICAL HISTORY 11/2019: ABD AORTA ANEURYSM REPAIR 03/23/2004: COLONOSCOPY FLX DX W/COLLJ SPEC WHEN PFRMD Comment: Colonoscopy 05/05/2008: COLONOSCOPY FLX DX W/COLLJ SPEC WHEN PFRMD Comment: Colonoscopy, repeat 10 yrs 04/14/2004: PAST SURGICAL HISTORY OF Comment: excision of lesion neck 02/21/1992: PAST SURGICAL HISTORY OF Comment: lesion removed from rectum ALLERGIES Gluten MEDICATIONS clopidogrel (PLAVIX) 75 mg tabletTake 1 tablet by mouth once daily.Disp: 30 tabletRfl: 11 testosterone 100 mg/ml cream (CPD)Apply 0.5 mL to affected area once daily for 180 days.Disp: 60 mLRfl: 1 LORazepam (ATIVAN) 0.5 mgTake 1 tablet by mouth three times a day as needed (anxiety) for up to 14 days.Disp: 14 tabletRfl: 1 atorvastatin (LIPITOR) 40 mg tabletTake 1 tablet by mouth daily at bedtime.Disp: 90 tabletRfl: 3 tamsulosin (FLOMAX) 0.4 mgTake 1 capsule by mouth once daily.Disp: 90 capsuleRfl: 3 hydrocortisone 2.5 % ointmentApply to itchy areas once dailyDisp: 454 gRfl: 1 MEDICATION, NON-DATABASEAlgae CalDisp: Rfl: Oil of Oregano [address] ([employer])Take 1 softgel daily, with meals.Disp: Rfl: Saccharomyces Boulardii [address] ct[address] (Klaire/Prothera)Take 1 capsule by mouth two times a day with meals.Disp: Rfl: COQ10, UBIQUINOL, ORALTake by mouth.Disp: Rfl: amLODIPine (NORVASC) 5 mg tabletTake 1 tablet in the AM and 1/2 tablet in the PM.Disp: 135 tabletRfl: 3 cholecalciferol (VITAMIN D3) 5,000 unit tabTake 1 tablet by mouth once daily.Disp: Rfl: QUEtiapine (SEROQUEL) 25 mg tabletTake 1 tablet by mouth three times a day as needed.Disp: 20 tabletRfl: 0 metoprolol tartrate, short acting, (LOPRESSOR) 50 mg tabletTake 1 tablet by mouth two times a day.Disp: 180 tabletRfl: 3 FAMILY HISTORY Problem Relation Age of Onset Stroke Father other (lupus) Sister Diabetes Brother Diabetes Brother Social History Tobacco Use Smoking status: Never Smokeless tobacco: Never Substance Use Topics Alcohol use: No Drug use: Never PHYSICAL EXAM BP 128/64 Pulse 80 Resp 16 General Appearance: well appearing, in no acute distress, alert Eyes: PERRLA, EOM's intact, conjunctiva pink and moist, no icterus, sclera white, non-injected Lungs: Lungs clear to auscultation. No wheezing, rhonchi, rales. Heart: RRR without murmur, gallop, or rubs. No ectopy Health maintenance reviewed with patient: Depression Screening Never done Anxiety Screening Never done Shingrix Vaccine(1 of 2) due on 06/26/2024 RSV Vaccine(1 - 1-do (more content not included)... [facility] 04-22-2024 Telephone encounter Note The patient has been identified by name and date of : Yes Caregiver verified no other encounters exist for this prescription request: Yes Caregiver confirmed with patient/requestor that no other refills are due, in the near future, with this provider at this time: Yes The last office visit in the department: 04/18/2024 Does the patient have a future office visit with this provider/department: Yes 07/22/2024 Requested Prescriptions Pending Prescriptions Disp Refills clopidogrel (PLAVIX) 75 mg tablet 30 tablet 11 Sig: Take 1 tablet by mouth once daily. Osiris Tapia LPN April 22, 2024 11:17 AM [facility] 04-22-2024 Miscellaneous Notes The patient has been identified by name and date of : Yes Caregiver verified no other encounters exist for this prescription request: Yes Caregiver confirmed with patient/requestor that no other refills are due, in the near future, with this provider at this time: Yes The last office visit in the department: 04/18/2024 Does the patient have a future office visit with this provider/department: Yes 07/22/2024 Requested Prescriptions Pending Prescriptions Disp Refills clopidogrel (PLAVIX) 75 mg tablet 30 tablet 11 Sig: Take 1 tablet by mouth once daily. Osiris Tapia LPN April 22, 2024 11:17 AM documented in this encounter [facility] 04-18-2024 Note HNO ID: [id number] Author: KEZIA DUBOSE MD Service: ? Author Type: Physician Type: Progress Notes Filed: 04/19/2024 18:00 Note Text: CC: Patient presents with: Recheck: 6 month follow up HPI Sergo E Headings is a 88 year old male h/o stroke 2022, Hypertension, hyperlipidemia, collagenase colitis with concerns for dehydration as he tolerates very small variety of foods. Eating anything that he does not tolerate will give him diarrhea and with his age he is very prone to dehydration which is very concerning for him and his Cannot have gluten or dairy he cannot tolerate a lot of vegetables He has been exercising well, walking 1 mile day at 3 miles an hour. Does not feel sob. Has been tolerating the statin, norvasc, plavix, metoprolol etc. Of late he has been extremely stressed with his who is having movement disorders. She jumps and she has myoclonic movements at nighttime which is very concerning for him Has been on a testosterone cream for low testosterone as ordered by an [place] provider for the past 4-5 years. Sold their house in [place] so not going to be seeing this provider anymore. Sees Dr. Mackey in [place]. Last seen over a year ago. REVIEW OF SYSTEMS See HPI. PAST MEDICAL HISTORY Diagnosis Date Abdominal aortic aneurysm without rupture (HCC) 03/11/[address] Singh Benign prostatic hyperplasia with urinary hesitancy 12/13/2019 Had 10h of urinary retention, Voided x2 since chang removed but small volume Begun on flomax 12/11 Obtain postvoid residual to ensure no overflow incontinence Bilateral carotid artery stenosis 08/20/2018 Celiac disease 08/31/2010 Disorders of bursae and tendons in shoulder region, unspecified 09/08/2013 Diverticulosis of large intestine Elevated hemoglobin A1c 02/10/2021 Hypertension, essential 02/02/2018 Internal hemorrhoids without mention of complication 05/05/2008 Mixed hyperlipidemia 11/30/2010 Peripheral vascular disease (HCC) 02/25/2016 Stage 3a chronic kidney disease (HCC) 02/10/2021 Stroke, Ischemic - Right Parietal, Right Temporal-Occipital, Middle Cerebral Peduncle AND Right Cerebellar 03/2023 Synovial cyst of right popliteal space 02/14/2022 Vitamin D deficiency 04/06/2009 PAST SURGICAL HISTORY Procedure Laterality Date ABD AORTA ANEURYSM REPAIR 11/2019 COLONOSCOPY FLX DX W/COLLJ SPEC WHEN PFRMD 03/23/2004 Colonoscopy COLONOSCOPY FLX DX W/COLLJ SPEC WHEN PFRMD 05/05/2008 Colonoscopy, repeat 10 yrs PAST SURGICAL HISTORY OF 04/14/2004 excision of lesion neck PAST SURGICAL HISTORY OF 02/21/1992 lesion removed from rectum ALLERGIES Gluten MEDICATIONS tamsulosin (FLOMAX) 0.4 mgTake 1 capsule by mouth once daily.Disp: 90 capsuleRfl: 3 hydrocortisone 2.5 % ointmentApply to itchy areas once dailyDisp: 454 gRfl: 1 metoprolol tartrate, short acting, (LOPRESSOR) 50 mg tabletTake 1 tablet by mouth two times a day.Disp: 180 tabletRfl: 3 MEDICATION, NON-DATABASEAlgae CalDisp: Rfl: Oil of Oregano [address] ([employer])Take 1 softgel daily, with meals.Disp: Rfl: Saccharomyces Boulardii 60 ct[address] (Klaire/Prothera)Take 1 capsule by mouth two times a day with meals.Disp: Rfl: COQ10, UBIQUINOL, ORALTake by mouth.Disp: Rfl: amLODIPine (NORVASC) 5 mg tabletTake 1 tablet in the AM and 1/2 tablet in the PM.Disp: 135 tabletRfl: 3 atorvastatin (LIPITOR) 40 mg tabletTake 1 tablet by mouth daily at bedtime.Disp: 90 tabletRfl: 3 testosterone 100 mg/ml cream (CPD)Apply 0.5 mL to affected area once daily.Disp: Rfl: clopidogrel (PLAVIX) 75 mg tabletTake 1 tablet by mouth once daily.Disp: 30 tabletRfl: 11 cholecalciferol (VITAMIN D3) 5,000 unit tabTake 1 tablet by mouth once daily.Disp: Rfl: FAMILY HISTORY Problem Relation Age of Onset Stroke Father other (lupus) Sister Diabetes Brother Diabetes Brother Social History Tobacco Use Smoking status: Never Smokeless tobacco: Never Substance Use Topics Alcohol use: No Drug use: Never PHYSICAL EXAM BP 118/62 (BP Site: Left Arm) Pulse 61 Wt 66.4 kg (146 lb 6.4 oz) SpO2 98% BMI 22.26 kg/m? General Appearance: well appearing, in no acute distress, alert Eyes: PERRLA, EOM's intact, conjunctiva pink and moist, no icterus, sclera white, non-injected Lungs: Lungs clear to auscultation. No wheezing, rhonchi, rales. Heart: RRR without murmur, gallop, or rubs. No ectopy Health maintenance reviewed with patient: Depression Screening Never done Anxiety Screening Never done Shingrix Vaccine(1 of 2) due on 06/26/2024 RSV Vaccine(1 - 1-dose 60+ series) due on 10/02/2024 Influenza Vaccine(1) due on 05/26/2024 DTaP,Tdap,Td Vaccine(4 - Tdap) due on 04/04/2026 Diabetes Screening due on 03/27/2027 Advance Directive Discussion Completed Pneumococcal Vaccine: 65+ Completed Covid-19 Vaccine Discontinued DATA REVIEWED: No new labs ASSESSMENT/PLAN: 1. Testosterone deficiency - ICD9: 259.9, ICD10: E34.9 (primary diagnos (more content not included)... [facility] 04-18-2024 History of Presen t illness Narrative CC: Patient presents with: Recheck: 6 month follow up HPI Sergo Kamini Headings is a 88 year old male h/o stroke 2022, Hypertension, hyperlipidemia, collagenase colitis with concerns for dehydration as he tolerates very small variety of foods. Eating anything that he does not tolerate will give him diarrhea and with his age he is very prone to dehydration which is very concerning for him and his Cannot have gluten or dairy he cannot tolerate a lot of vegetables He has been exercising well, walking 1 mile day at 3 miles an hour. Does not feel sob. Has been tolerating the statin, norvasc, plavix, metoprolol etc. Of late he has been extremely stressed with his who is having movement disorders. She jumps and she has myoclonic movements at nighttime which is very concerning for him Has been on a testosterone cream for low testosterone as ordered by an [place] provider for the past 4-5 years. Sold their house in [place] so not going to be seeing this provider anymore. Sees Dr. Mackey in [place]. Last seen over a year ago. REVIEW OF SYSTEMS See HPI. PAST MEDICAL HISTORY Diagnosis Date Abdominal aortic aneurysm without rupture (HCC) 03/11/[address] Singh Benign prostatic hyperplasia with urinary hesitancy 12/13/2019 Had 10h of urinary retention, Voided x2 since chang removed but small volume Begun on flomax 12/11 Obtain postvoid residual to ensure no overflow incontinence Bilateral carotid artery stenosis 08/20/2018 Celiac disease 08/31/2010 Disorders of bursae and tendons in shoulder region, unspecified 09/08/2013 Diverticulosis of large intestine Elevated hemoglobin A1c 02/10/2021 Hypertension, essential 02/02/2018 Internal hemorrhoids without mention of complication 05/05/2008 Mixed hyperlipidemia 11/30/2010 Peripheral vascular disease (HCC) 02/25/2016 Stage 3a chronic kidney disease (HCC) 02/10/2021 Stroke, Ischemic - Right Parietal, Right Temporal-Occipital, Middle Cerebral Peduncle & Right Cerebellar 03/2023 Synovial cyst of right popliteal space 02/14/2022 Vitamin D deficiency 04/06/2009 PAST SURGICAL HISTORY Procedure Laterality Date ABD AORTA ANEURYSM REPAIR 11/2019 COLONOSCOPY FLX DX W/COLLJ SPEC WHEN PFRMD 03/23/2004 Colonoscopy COLONOSCOPY FLX DX W/COLLJ SPEC WHEN PFRMD 05/05/2008 Colonoscopy, repeat 10 yrs PAST SURGICAL HISTORY OF 04/14/2004 excision of lesion neck PAST SURGICAL HISTORY OF 02/21/1992 lesion removed from rectum ALLERGIES Gluten MEDICATIONS tamsulosin (FLOMAX) 0.4 mg^Take 1 capsule by mouth once daily.^Disp: 90 capsule^Rfl: 3 hydrocortisone 2.5 % ointment^Apply to itchy areas once daily^Disp: 454 g^Rfl: 1 metoprolol tartrate, short acting, (LOPRESSOR) 50 mg tablet^Take 1 tablet by mouth two times a day.^Disp: 180 tablet^Rfl: 3 MEDICATION, NON-DATABASE^Algae Jared^Disp: ^Rfl: Oil of Oregano [address] ([employer])^Take 1 softgel daily, with meals.^Disp: ^Rfl: Saccharomyces Boulardii 60 ct[address] (Klaire/Prothera)^Take 1 capsule by mouth two times a day with meals.^Disp: ^Rfl: COQ10, UBIQUINOL, ORAL^Take by mouth.^Disp: ^Rfl: amLODIPine (NORVASC) 5 mg tablet^Take 1 tablet in the AM and 1/2 tablet in the PM.^Disp: 135 tablet^Rfl: 3 atorvastatin (LIPITOR) 40 mg tablet^Take 1 tablet by mouth daily at bedtime.^Disp: 90 tablet^Rfl: 3 testosterone 100 mg/ml cream (CPD)^Apply 0.5 mL to affected area once daily.^Disp: ^Rfl: clopidogrel (PLAVIX) 75 mg tablet^Take 1 tablet by mouth once daily.^Disp: 30 tablet^Rfl: 11 cholecalciferol (VITAMIN D3) 5,000 unit tab^Take 1 tablet by mouth once daily.^Disp: ^Rfl: FAMILY HISTORY Problem Relation Age of Onset Stroke Father other (lupus) Sister Diabetes Brother Diabetes Brother Social History Tobacco Use Smoking status: Never Smokeless tobacco: Never Substance Use Topics Alcohol use: No Drug use: Never PHYSICAL EXAM BP 118/62 (BP Site: Left Arm) Pulse 61 Wt 66.4 kg (146 lb 6.4 oz) SpO2 98% BMI 22.26 kg/m General Appearance: well appearing, in no acute distress, alert Eyes: PERRLA, EOM's intact, conjunctiva pink and moist, no icterus, sclera white, non-injected Lungs: Lungs clear to auscultation. No wheezing, rhonchi, rales. Heart: RRR without murmur, gallop, or rubs. No ectopy Health maintenance reviewed with patient: Depression Screening Never done Anxiety Screening Never done Shingrix Vaccine(1 of 2) due on 06/26/2024 RSV Vaccine(1 - 1-dose 60+ series) due on 10/02/2024 Influenza Vaccine(1) due on 05/26/2024 DTaP,Tdap,Td Vaccine(4 - Tdap) due on 04/04/2026 Diabetes Screening due on 03/27/2027 Advance Directive Discussion Completed Pneumococcal Vaccine: 65+ Completed Covid-19 Vaccine Discontinued DATA REVIEWED: No new labs ASSESSMENT/PLAN: 1. Testosterone deficiency - ICD9: 259.9, ICD10: E34.9 (primary diagnosis) - TESTOSTERONE 100 MG/ML CREAM 2. Mixed hyperlipidemia - ICD9: 272.2, ICD10: E78.2 - Controlled - Counseled on healthy diet and regular exercise - ATORVASTATIN 40 MG TABLET 3. Cerebrovascular accident (CVA), unspecified mechanism (HCC) - ICD9: 434.91, ICD10: I63.9 - ATORVASTATIN 40 MG TABLET 4. Decreased hearing of both ears - ICD9: 389.9, ICD10: H91.93 - HEARING TEST/AUDIOGRAM 5. Panic attacks - ICD9: 300.01, ICD10: F41.0 - LORAZEPAM 0.5 MG TABLET Kezia Dubose MD documented in this encounter [facility] 04-09-2024 History of Presen t illness Narrative CC: Patient presents with: F/U HTN 6 Month HPI Sergo E Headings is a 88 year old male who presents today for blood pressure. Was told by insurance to come in as he had a few BP readings of 100s/low 50s but not typically. Also was asymptomatic with these readings but does not remember what time of day they were taken. He is here with his and his daughter. His is having acute jerking movements for which everybody is stressed out and she has been sent to the ER. Patient was seen putting his head down and saying that he is feeling very tired of what is happening with his and himself and wishing that he was not around. He is very stressed out today. The nurses could not get a proper intake on him. HTN: Mr. Rosas indicates that he is feeling well and denies any symptoms referable to elevated blood pressure. Specifically denies headache, chest pain, palpitations, dyspnea, and peripheral edema. Patient denies any side effects of his medication(s) and is compliant with their regimen. He does check BP's away from this office with average BP's in the 110s-120s/60s range. Sergo hikes often and walks without difficulty. He watches his diet for sodium, low fat and low cholesterol most of the time. Last 3 Encounter BP Readings: Date: BP: 2024 132/66 2024 130/57 10/02/2023 124/62 Has been on a testosterone cream for low testosterone as ordered by an [place] provider for the past 4-5 years. Sold their house in [place] so not going to be seeing this provider anymore. Sees Dr. Mackey in [place]. Last seen over a year ago. REVIEW OF SYSTEMS See HPI. PAST MEDICAL HISTORY Diagnosis Date Abdominal aortic aneurysm without rupture (HCC) 03/11/[address] Singh Benign prostatic hyperplasia with urinary hesitancy 12/13/2019 Had 10h of urinary retention, Voided x2 since chang removed but small volume Begun on flomax 12/11 Obtain postvoid residual to ensure no overflow incontinence Bilateral carotid artery stenosis 08/20/2018 Celiac disease 08/31/2010 Disorders of bursae and tendons in shoulder region, unspecified 09/08/2013 Diverticulosis of large intestine Elevated hemoglobin A1c 02/10/2021 Hypertension, essential 02/02/2018 Internal hemorrhoids without mention of complication 05/05/2008 Mixed hyperlipidemia 11/30/2010 Peripheral vascular disease (HCC) 02/25/2016 Stage 3a chronic kidney disease (HCC) 02/10/2021 Stroke, Ischemic - Right Parietal, Right Temporal-Occipital, Middle Cerebral Peduncle & Right Cerebellar 03/2023 Synovial cyst of right popliteal space 02/14/2022 Vitamin D deficiency 04/06/2009 PAST SURGICAL HISTORY Procedure Laterality Date ABD AORTA ANEURYSM REPAIR 11/2019 COLONOSCOPY FLX DX W/COLLJ SPEC WHEN PFRMD 03/23/2004 Colonoscopy COLONOSCOPY FLX DX W/COLLJ SPEC WHEN PFRMD 05/05/2008 Colonoscopy, repeat 10 yrs PAST SURGICAL HISTORY OF 04/14/2004 excision of lesion neck PAST SURGICAL HISTORY OF 02/21/1992 lesion removed from rectum ALLERGIES Gluten MEDICATIONS tamsulosin (FLOMAX) 0.4 mg^Take 1 capsule by mouth once daily.^Disp: 90 capsule^Rfl: 3 hydrocortisone 2.5 % ointment^Apply to itchy areas once daily^Disp: 454 g^Rfl: 1 metoprolol tartrate, short acting, (LOPRESSOR) 50 mg tablet^Take 1 tablet by mouth two times a day.^Disp: 180 tablet^Rfl: 3 MEDICATION, NON-DATABASE^Algae Jared^Disp: ^Rfl: Oil of Oregano [address] ([employer])^Take 1 softgel daily, with meals.^Disp: ^Rfl: Saccharomyces Boulardii 60 ct. (Klaire/Prothera)^Take 1 capsule by mouth two times a day with meals.^Disp: ^Rfl: COQ10, UBIQUINOL, ORAL^Take by mouth.^Disp: ^Rfl: amLODIPine (NORVASC) 5 mg tablet^Take 1 tablet in the AM and 1/2 tablet in the PM.^Disp: 135 tablet^Rfl: 3 magnesium chloride (MAG64) [address] tablet^TAKE 2 TABLETS BY MOUTH EVERY DAY^Disp: 60 tablet^Rfl: 3 atorvastatin (LIPITOR) 40 mg tablet^Take 1 tablet by mouth daily at bedtime.^Disp: 90 tablet^Rfl: 3 testosterone 100 mg/ml cream (CPD)^Apply 0.5 mL to affected area once daily.^Disp: ^Rfl: clopidogrel (PLAVIX) 75 mg tablet^Take 1 tablet by mouth once daily.^Disp: 30 tablet^Rfl: 11 cholecalciferol (VITAMIN D3) 5,000 unit tab^Take 1 tablet by mouth once daily.^Disp: ^Rfl: FAMILY HISTORY Problem Relation Age of Onset Stroke Father other (lupus) Sister Diabetes Brother Diabetes Brother Social History Tobacco Use Smoking status: Never Smokeless tobacco: Never Substance Use Topics Alcohol use: No Drug use: Never PHYSICAL EXAM There were no vitals taken for this visit. General Appearance: well appearing, in no acute distress, alert Eyes: PERRLA, EOM's intact, conjunctiva pink and moist, no icterus, sclera white, non-injected Lungs: Lungs clear to auscultation. No wheezing, rhonchi, rales. Heart: RRR without murmur, gallop, or rubs. No ectopy Health maintenance reviewed with patient: Behavioral Health Screening Never done Shingrix Vaccine(1 of 2) due on 06/26/2024 RSV Vaccine(1 - 1-dose 60+ series) due on 10/02/2024 Influenza Vaccine(1) due on 05/26/2024 DTaP,Tdap,Td Vaccine(4 - Tdap) due on 04/04/2026 Diabetes Screening due on 03/27/2027 Advance Directive Discussion Completed Pneumococcal Vaccine: 65+ Completed Covid-19 Vaccine Discontinued DATA REVIEWED: No new labs documented in this encounter [facility] 04-09-2024 Note HNO ID: [id number] Author: KEZIA DUBOSE MD Service: ? Author Type: Physician Type: Progress Notes Filed: 04/12/2024 16:59 Note Text: CC: Patient presents with: F/U HTN 6 Month HPI Sergo Kamini Rosas is a 88 year old male who presents today for blood pressure. Was told by insurance to come in as he had a few BP readings of 100s/low 50s but not typically. Also was asymptomatic with these readings but does not remember what time of day they were taken. He is here with his and his daughter. His is having acute jerking movements for which everybody is stressed out and she has been sent to the ER. Patient was seen putting his head down and saying that he is feeling very tired of what is happening with his and himself and wishing that he was not around. He is very stressed out today. The nurses could not get a proper intake on him. HTN: Mr. Rosas indicates that he is feeling well and denies any symptoms referable to elevated blood pressure. Specifically denies headache, chest pain, palpitations, dyspnea, and peripheral edema. Patient denies any side effects of his medication(s) and is compliant with their regimen. He does check BP's away from this office with average BP's in the 110s-120s/60s range. Sergo hikes often and walks without difficulty. He watches his diet for sodium, low fat and low cholesterol most of the time. Last 3 Encounter BP Readings: Date: BP: 2024 132/66 2024 130/57 10/02/2023 124/62 Has been on a testosterone cream for low testosterone as ordered by an [place] provider for the past 4-5 years. Sold their house in [place] so not going to be seeing this provider anymore. Sees Dr. Mackey in [place]. Last seen over a year ago. REVIEW OF SYSTEMS See HPI. PAST MEDICAL HISTORY Diagnosis Date Abdominal aortic aneurysm without rupture (HCC) 03/11/[address] Singh Benign prostatic hyperplasia with urinary hesitancy 12/13/2019 Had 10h of urinary retention, Voided x2 since chang removed but small volume Begun on flomax 12/11 Obtain postvoid residual to ensure no overflow incontinence Bilateral carotid artery stenosis 08/20/2018 Celiac disease 08/31/2010 Disorders of bursae and tendons in shoulder region, unspecified 09/08/2013 Diverticulosis of large intestine Elevated hemoglobin A1c 02/10/2021 Hypertension, essential 02/02/2018 Internal hemorrhoids without mention of complication 05/05/2008 Mixed hyperlipidemia 11/30/2010 Peripheral vascular disease (HCC) 02/25/2016 Stage 3a chronic kidney disease (HCC) 02/10/2021 Stroke, Ischemic - Right Parietal, Right Temporal-Occipital, Middle Cerebral Peduncle AND Right Cerebellar 03/2023 Synovial cyst of right popliteal space 02/14/2022 Vitamin D deficiency 04/06/2009 PAST SURGICAL HISTORY Procedure Laterality Date ABD AORTA ANEURYSM REPAIR 11/2019 COLONOSCOPY FLX DX W/COLLJ SPEC WHEN PFRMD 03/23/2004 Colonoscopy COLONOSCOPY FLX DX W/COLLJ SPEC WHEN PFRMD 05/05/2008 Colonoscopy, repeat 10 yrs PAST SURGICAL HISTORY OF 04/14/2004 excision of lesion neck PAST SURGICAL HISTORY OF 02/21/1992 lesion removed from rectum ALLERGIES Gluten MEDICATIONS tamsulosin (FLOMAX) 0.4 mgTake 1 capsule by mouth once daily.Disp: 90 capsuleRfl: 3 hydrocortisone 2.5 % ointmentApply to itchy areas once dailyDisp: 454 gRfl: 1 metoprolol tartrate, short acting, (LOPRESSOR) 50 mg tabletTake 1 tablet by mouth two times a day.Disp: 180 tabletRfl: 3 MEDICATION, NON-DATABASEAlgae CalDisp: Rfl: Oil of Oregano [address] ([employer])Take 1 softgel daily, with meals.Disp: Rfl: Saccharomyces Boulardii 60 ct[address] (Klaire/Prothera)Take 1 capsule by mouth two times a day with meals.Disp: Rfl: COQ10, UBIQUINOL, ORALTake by mouth.Disp: Rfl: amLODIPine (NORVASC) 5 mg tabletTake 1 tablet in the AM and 1/2 tablet in the PM.Disp: 135 tabletRfl: 3 magnesium chloride (MAG64) [address] tabletTAKE 2 TABLETS BY MOUTH EVERY DAYDisp: 60 tabletRfl: 3 atorvastatin (LIPITOR) 40 mg tabletTake 1 tablet by mouth daily at bedtime.Disp: 90 tabletRfl: 3 testosterone 100 mg/ml cream (CPD)Apply 0.5 mL to affected area once daily.Disp: Rfl: clopidogrel (PLAVIX) 75 mg tabletTake 1 tablet by mouth once daily.Disp: 30 tabletRfl: 11 cholecalciferol (VITAMIN D3) 5,000 unit tabTake 1 tablet by mouth once daily.Disp: Rfl: FAMILY HISTORY Problem Relation Age of Onset Stroke Father other (lupus) Sister Diabetes Brother Diabetes Brother Social History Tobacco Use Smoking status: Never Smokeless tobacco: Never Substance Use Topics Alcohol use: No Drug use: Never PHYSICAL EXAM There were no vitals taken for this visit. General Appearance: well appearing, in no acute distress, alert Eyes: PERRLA, EOM's intact, conjunctiva pink and moist, no icterus, sclera white, non-injected Lungs: Lungs clear to auscultation. No wheezing, rhonchi, rales. Heart: RRR without murmur, gallop, or ru (more content not included)... [facility] 03-25-2024 Note HNO ID: [id number] Author: INDIA WOODSON RN Service: ? Author Type: Registered Nurse Type: Progress Notes Filed: 03/25/2024 15:00 Note Text: [facility] Telephonic Outreach Provider Action/FYI Contacted for: Routine Telephonic Outreach Contact made with patient: Yes Patient identified by name and date of . Discussed care with patient Are you experiencing any new or worsening symptoms you need to talk about today? No Disease Specific Do you check your blood pressure at home? Yes, Enter readings: 03/24/2024 @ 6:30pm 115/61 61 Do you have new or worsening shortness of breath with activity? No Do you feel like you are dehydrated for any reason, including not being able to eat or drink normally, or having less urine/much darker urine than normal for you? No Do you check your daily weight at home? Yes, 141 pounds Have you noticed a sudden gain or loss in weight greater than three pounds in a day or five pounds in a week? No. - verbalized would call provider if gained or lost weight as noted above Based on scuba instructor, the following disposition is advised: No symptoms or symptoms present, not severe. Routed to: No Action Needed VILMA Education Provided this Outreach: No Reviewed upcoming appointment Denies needs at this time Advised PCC would call again in about 1 month Reminded patient to call office of PCP with questions or concerns Patient verbalized understanding India Woodson RN March 25, 2024 2:[address] [facility] 03-25-2024 History of Presen t illness Narrative [facility] Telephonic Outreach Provider Action/FYI Contacted for: Routine Telephonic Outreach Contact made with patient: Yes Patient identified by name and date of . Discussed care with patient Are you experiencing any new or worsening symptoms you need to talk about today? No Disease Specific Do you check your blood pressure at home? Yes, Enter readings: 03/24/2024 @ 6:30pm 115/61 61 Do you have new or worsening shortness of breath with activity? No Do you feel like you are dehydrated for any reason, including not being able to eat or drink normally, or having less urine/much darker urine than normal for you? No Do you check your daily weight at home? Yes, 141 pounds Have you noticed a sudden gain or loss in weight greater than three pounds in a day or five pounds in a week? No. - verbalized would call provider if gained or lost weight as noted above Based on scuba instructor, the following disposition is advised: No symptoms or symptoms present, not severe. Routed to: No Action Needed VILMA Education Provided this Outreach: No Reviewed upcoming appointment Denies needs at this time Advised PCC would call again in about 1 month Reminded patient to call office of PCP with questions or concerns Patient verbalized understanding India Woodson RN March 25, 2024 2:59 PM documented in this encounter [facility] 03-25-2024 Telephone encounter Note Opened in Error [facility] 03-25-2024 Miscellaneous Notes Opened in Error documented in this encounter [facility] 03-25-2024 Note Patient Outreach ([facility] [place] HEADINGS,SERGO Suárez ([id number]) 1935 M Date Time Provider Department 03/25/24 INDIA WOODSON [facility] [place] During your visit today, we recorded the following information about you: Pulse Blood pressure 61/minute 115/61 India Woodson RN 03/25/2024 3:00 PM Signed CDM Telephonic Outreach Provider Action/FYJacki Contacted for: Routine Telephonic Outreach Contact made with patient: Yes Patient identified by name and date of . Discussed care with patient Are you experiencing any new or worsening symptoms you need to talk about today? No Disease Specific Do you check your blood pressure at home? Yes, Enter readings: 03/24/2024 @ 6:30pm 115/61 61 Do you have new or worsening shortness of breath with activity? No Do you feel like you are dehydrated for any reason, including not being able to eat or drink normally, or having less urine/much darker urine than normal for you? No Do you check your daily weight at home? Yes, 141 pounds Have you noticed a sudden gain or loss in weight greater than three pounds in a day or five pounds in a week? No. - verbalized would call provider if gained or lost weight as noted above Based on scuba instructor, the following disposition is advised: No symptoms or symptoms present, not severe. Routed to: No Action Needed VILMA Education Provided this Outreach: No Reviewed upcoming appointment Denies needs at this time Advised PCC would call again in about 1 month Reminded patient to call office of PCP with questions or concerns Patient verbalized understanding India Woodson RN March 25, 2024 2:59 PM Allergies As of Date: 03/25/2024 Noted Allergy Reaction GLUTEN 09/23/2011 6 - Diarrhea Comments: Upset stomach Gas build up Date Reviewed: 02/28/2024 Reviewed by: Rhonda Hill MA - Fully Assessed Reason for Visit: Community Monitoring Outreach [Other] Cmt: CDM Telephonic Outreach Prescriptions as of 05/02/2024 - QUEtiapine (SEROQUEL) 25 mg tablet Take 1 tablet by mouth three times a day as needed. - clopidogrel (PLAVIX) 75 mg tablet Take 1 tablet by mouth once daily. - testosterone 100 mg/ml cream (CPD) Apply 0.5 mL to affected area once daily for 180 days. - LORazepam (ATIVAN) 0.5 mg Take 1 tablet by mouth three times a day as needed (anxiety) for up to 14 days. - atorvastatin (LIPITOR) 40 mg tablet Take 1 tablet by mouth daily at bedtime. - tamsulosin (FLOMAX) 0.4 mg Take 1 capsule by mouth once daily. - hydrocortisone 2.5 % ointment Apply to itchy areas once daily - metoprolol tartrate, short acting, (LOPRESSOR) 50 mg tablet Take 1 tablet by mouth two times a day. - MEDICATION, NON-DATABASE Algae Jared - Oil of Oregano [address] ([employer]) Take 1 softgel daily, with meals. - Saccharomyces Boulardii 60 ct. (Klaire/Prothera) Take 1 capsule by mouth two times a day with meals. - COQ10, UBIQUINOL, ORAL Take by mouth. - amLODIPine (NORVASC) 5 mg tablet Take 1 tablet in the AM and 1/2 tablet in the PM. - cholecalciferol (VITAMIN D3) 5,000 unit tab Take 1 tablet by mouth once daily. Facility-Administered Medications as of 05/02/2024 - perflutren lipid microspheres 1.3 mL in NaCl (PF) 0.9% 10 mL injection (DEFINITY) - sodium chloride 0.9 % (flush) 10 mL (BD POSIFLUSH) Meds Comments as of 02/01/2021: Magnesium once daily, Maxxum 4 multi-vitamin po bid -(Maria Luisa Pulse NAC, CO-Q-10 + PQQ), Methyl-Folate - 400 mcg daily, , Aqua Micki HP9 - 1 tsp bid and JarroSil 4 mg daily. 02/01/21 Aqua Fora 2 tablespoons daily Problem List As Of Date 03/25/2024 Noted Resolved Diverticulosis of large intestine [K57.30] Diarrhea [R19.7] 05/05/2008 Internal hemorrhoids without mention of complic*05/05/2008 Vitamin D deficiency [E55.9] 04/06/2009 Celiac disease [K90.0] 08/31/2010 Mixed hyperlipidemia [E78.2] 11/30/2010 Right shoulder pain [M25.511] 09/08/2013 09/18/2014 Disorders of bursae and tendons in shoulder reg*09/08/2013 Peripheral vascular disease (HCC) [I73.9] 02/25/2016 Abdominal aortic aneurysm without rupture (HCC)*03/11/2016 Medicare annual wellness visit, subsequent [Z00*02/08/2017 Neck pain, chronic [M54.2, G89.29] 04/25/2017 Hypertension, essential [I10] 02/02/2018 Bilateral carotid artery stenosis [I65.23] 08/20/2018 Benign prostatic hyperplasia with urinary hesit*12/13/2019 Stage 3 chronic kidney disease (HCC) [N18.30] 02/10/2021 Elevated hemoglobin A1c [R73.09] 02/10/2021 Acute diarrhea [R19.7] 03/01/2021 Hyponatremia [E87.1] 03/01/2021 Hypokalemia [E87.6] 03/02/2021 Severe protein-calorie malnutrition (HCC) [E43] 03/04/2021 Synovial cyst of right popliteal space [M71.21] 02/14/2022 Nonrheumatic aortic valve insufficiency, modera*03/02/2023 Acute ischemic stroke (HCC) [I63.9] 04/04/2023 Rib fractures [S22.49XA] 04/04/2023 Traumatic pneumothorax [S27.0XXA] 04/04/202303/25 (more content not included)... [facility] 03-23-2024 Telephone encounter Note The patient has been identified by name and date of : Yes Caregiver verified no other encounters exist for this prescription request: Yes Caregiver confirmed with patient/requestor that no other refills are due, in the near future, with this provider at this time: Yes The last office visit in the department: 2024 Does the patient have a future office visit with this provider/department: Yes 04/01/2024 Requested Prescriptions Pending Prescriptions Disp Refills tamsulosin (FLOMAX) 0.4 mg 90 capsule 3 Sig: Take 1 capsule by mouth once daily. Deyanira Jose RN March 23, 2024 9:43 AM [facility] 03-23-2024 Miscellaneous Notes The patient has been identified by name and date of : Yes Caregiver verified no other encounters exist for this prescription request: Yes Caregiver confirmed with patient/requestor that no other refills are due, in the near future, with this provider at this time: Yes The last office visit in the department: 2024 Does the patient have a future office visit with this provider/department: Yes 04/01/2024 Requested Prescriptions Pending Prescriptions Disp Refills tamsulosin (FLOMAX) 0.4 mg 90 capsule 3 Sig: Take 1 capsule by mouth once daily. Deyanira Jose RN March 23, 2024 9:43 AM documented in this encounter [facility] 03-01-2024 Telephone encounter Note Talked to patient and he verbally understands he does an UTI and to cont. Antibiotics. Lucas Tamayo . [facility] 03-01-2024 Miscellaneous Notes Talked to patient and he verbally understands he does an UTI and to cont. Antibiotics. Lucas Tamayo . Please let patient know his urine culture did grow bacteria indicating a UTI. He is on the appropriate antibiotic. Finish all of this medication. Follow-up with PCP for persistent symptoms. documented in this encounter [facility] 03-01-2024 Telephone encounter Note Please let patient know his urine culture did grow bacteria indicating a UTI. He is on the appropriate antibiotic. Finish all of this medication. Follow-up with PCP for persistent symptoms. [facility] Work Phone: 02-28-2024 Note HNO ID: [id number] Author: KIRSTIE ANGUIANO APRN.BUILDING SPECIALIST Service: ? Author Type: Nurse Practitioner Type: Progress Notes Filed: 02/28/2024 12:22 Note Text: This note was created using Nexway. Subjective Sergo E Headings is a 89 year old male. 89 year old male with PMH CVA, HTN, hyperlipidemia, PVD, CKD presents for dysuria Acute onset one month ago +dysuria +frequency +urgency States he gets up 4 times a night Denies testicular pain or swelling Denies penile discharge Denies abdominal pain Denies flank pain. Denies fever or chills Denies hematuria. Of note, patient was seen here on 02/06/24 for same Urine culture revealed p. Mirabilis Was prescribed Keflex Denies relief of sx. The history is provided by the patient and the spouse. No foreign language professor was used. UTI This is a recurrent problem. The current episode started more than 1 week ago. The problem occurs every urination. The problem has not changed since onset.The quality of the pain is described as burning. The pain is at a severity of 5/10. The pain is mild. There has been no fever. There is No history of pyelonephritis. Associated symptoms include frequency and urgency. Pertinent negatives include no chills, no sweats, no nausea, no vomiting, no discharge, no hematuria, no hesitancy, no possible and no flank pain. Treatments tried: keflex 02/06/24. His past medical history does not include kidney stones, single kidney, urological procedure, recurrent UTIs, urinary stasis or catheterization. PAST MEDICAL HISTORY Diagnosis Date Abdominal aortic aneurysm without rupture (HCC) 03/11/[address] Singh Benign prostatic hyperplasia with urinary hesitancy 12/13/2019 Had 10h of urinary retention, Voided x2 since chang removed but small volume Begun on flomax 12/11 Obtain postvoid residual to ensure no overflow incontinence Bilateral carotid artery stenosis 08/20/2018 Celiac disease 08/31/2010 Disorders of bursae and tendons in shoulder region, unspecified 09/08/2013 Diverticulosis of large intestine Elevated hemoglobin A1c 02/10/2021 Hypertension, essential 02/02/2018 Internal hemorrhoids without mention of complication 05/05/2008 Mixed hyperlipidemia 11/30/2010 Peripheral vascular disease (HCC) 02/25/2016 Stage 3a chronic kidney disease (HCC) 02/10/2021 Stroke, Ischemic - Right Parietal, Right Temporal-Occipital, Middle Cerebral Peduncle AND Right Cerebellar 03/2023 Synovial cyst of right popliteal space 02/14/2022 Vitamin D deficiency 04/06/2009 PAST SURGICAL HISTORY Procedure Laterality Date ABD AORTA ANEURYSM REPAIR 11/2019 COLONOSCOPY FLX DX W/COLLJ SPEC WHEN PFRMD 03/23/2004 Colonoscopy COLONOSCOPY FLX DX W/COLLJ SPEC WHEN PFRMD 05/05/2008 Colonoscopy, repeat 10 yrs PAST SURGICAL HISTORY OF 04/14/2004 excision of lesion neck PAST SURGICAL HISTORY OF 02/21/1992 lesion removed from rectum ALLERGIES Gluten MEDICATIONS hydrocortisone 2.5 % ointmentApply to itchy areas once dailyDisp: 454 gRfl: 1 metoprolol tartrate, short acting, (LOPRESSOR) 50 mg tabletTake 1 tablet by mouth two times a day.Disp: 180 tabletRfl: 3 MEDICATION, NON-DATABASEAlgae CalDisp: Rfl: Oil of Oregano [address] ([employer])Take 1 softgel daily, with meals.Disp: Rfl: Saccharomyces Boulardii 60 ct. (Klaire/Prothera)Take 1 capsule by mouth two times a day with meals.Disp: Rfl: COQ10, UBIQUINOL, ORALTake by mouth.Disp: Rfl: amLODIPine (NORVASC) 5 mg tabletTake 1 tablet in the AM and 1/2 tablet in the PM.Disp: 135 tabletRfl: 3 magnesium chloride (MAG64) [address] tabletTAKE 2 TABLETS BY MOUTH EVERY DAYDisp: 60 tabletRfl: 3 atorvastatin (LIPITOR) 40 mg tabletTake 1 tablet by mouth daily at bedtime.Disp: 90 tabletRfl: 3 testosterone 100 mg/ml cream (CPD)Apply 0.5 mL to affected area once daily.Disp: Rfl: clopidogrel (PLAVIX) 75 mg tabletTake 1 tablet by mouth once daily.Disp: 30 tabletRfl: 11 cholecalciferol (VITAMIN D3) 5,000 unit tabTake 1 tablet by mouth once daily.Disp: Rfl: sulfamethoxazole-trimethoprim (BACTRIM DS) 800-160 mg per tabletTake 1 tablet by mouth two times a day for 10 days.Disp: 20 tabletRfl: 0 tamsulosin (FLOMAX) 0.4 mgTake 1 capsule by mouth once daily.Disp: 90 capsuleRfl: 3 FAMILY HISTORY Problem Relation Age of Onset Stroke Father other (lupus) Sister Diabetes Brother Diabetes Brother Social History Tobacco Use Smoking status: Never Smokeless tobacco: Never Substance Use Topics Alcohol use: No Drug use: Never Review of Systems Constitutional: Negative for chills, fatigue and fever. Respiratory: Negative for apnea, choking and chest tightness. Cardiovascular: Negative for chest pain, palpitations and leg swelling. Gastrointestinal: Negative for abdominal pain, nausea and vomiting. Genitourinary: Positive for dysuria, frequency and urgency. Negative for flank pain, hematuria and hesitancy. Skin: Negative for col (more content not included)... [facility] 02-28-2024 History of Presen t illness Narrative This note was created using Productifyter. Subjective Sergo Suárez Headings is a 89 year old male. 89 year old male with PMH CVA, HTN, hyperlipidemia, PVD, CKD presents for dysuria Acute onset one month ago +dysuria +frequency +urgency States he gets up 4 times a night Denies testicular pain or swelling Denies penile discharge Denies abdominal pain Denies flank pain. Denies fever or chills Denies hematuria. Of note, patient was seen here on 02/06/24 for same Urine culture revealed p. Mirabilis Was prescribed Keflex Denies relief of sx. The history is provided by the patient and the spouse. No foreign language professor was used. UTI This is a recurrent problem. The current episode started more than 1 week ago. The problem occurs every urination. The problem has not changed since onset.The quality of the pain is described as burning. The pain is at a severity of 5/10. The pain is mild. There has been no fever. There is No history of pyelonephritis. Associated symptoms include frequency and urgency. Pertinent negatives include no chills, no sweats, no nausea, no vomiting, no discharge, no hematuria, no hesitancy, no possible and no flank pain. Treatments tried: keflex 02/06/24. His past medical history does not include kidney stones, single kidney, urological procedure, recurrent UTIs, urinary stasis or catheterization. PAST MEDICAL HISTORY Diagnosis Date Abdominal aortic aneurysm without rupture (HCC) 03/11/[address] Singh Benign prostatic hyperplasia with urinary hesitancy 12/13/2019 Had 10h of urinary retention, Voided x2 since chang removed but small volume Begun on flomax 12/11 Obtain postvoid residual to ensure no overflow incontinence Bilateral carotid artery stenosis 08/20/2018 Celiac disease 08/31/2010 Disorders of bursae and tendons in shoulder region, unspecified 09/08/2013 Diverticulosis of large intestine Elevated hemoglobin A1c 02/10/2021 Hypertension, essential 02/02/2018 Internal hemorrhoids without mention of complication 05/05/2008 Mixed hyperlipidemia 11/30/2010 Peripheral vascular disease (HCC) 02/25/2016 Stage 3a chronic kidney disease (HCC) 02/10/2021 Stroke, Ischemic - Right Parietal, Right Temporal-Occipital, Middle Cerebral Peduncle & Right Cerebellar 03/2023 Synovial cyst of right popliteal space 02/14/2022 Vitamin D deficiency 04/06/2009 PAST SURGICAL HISTORY Procedure Laterality Date ABD AORTA ANEURYSM REPAIR 11/2019 COLONOSCOPY FLX DX W/COLLJ SPEC WHEN PFRMD 03/23/2004 Colonoscopy COLONOSCOPY FLX DX W/COLLJ SPEC WHEN PFRMD 05/05/2008 Colonoscopy, repeat 10 yrs PAST SURGICAL HISTORY OF 04/14/2004 excision of lesion neck PAST SURGICAL HISTORY OF 02/21/1992 lesion removed from rectum ALLERGIES Gluten MEDICATIONS hydrocortisone 2.5 % ointment^Apply to itchy areas once daily^Disp: 454 g^Rfl: 1 metoprolol tartrate, short acting, (LOPRESSOR) 50 mg tablet^Take 1 tablet by mouth two times a day.^Disp: 180 tablet^Rfl: 3 MEDICATION, NON-DATABASE^Algae Jared^Disp: ^Rfl: Oil of Oregano 150 mg[address] 60 [address] ([employer])^Take 1 softgel daily, with meals.^Disp: ^Rfl: Saccharomyces Boulardii 60 ct. (Klaire/Prothera)^Take 1 capsule by mouth two times a day with meals.^Disp: ^Rfl: COQ10, UBIQUINOL, ORAL^Take by mouth.^Disp: ^Rfl: amLODIPine (NORVASC) 5 mg tablet^Take 1 tablet in the AM and 1/2 tablet in the PM.^Disp: 135 tablet^Rfl: 3 magnesium chloride (MAG64) [address] tablet^TAKE 2 TABLETS BY MOUTH EVERY DAY^Disp: 60 tablet^Rfl: 3 atorvastatin (LIPITOR) 40 mg tablet^Take 1 tablet by mouth daily at bedtime.^Disp: 90 tablet^Rfl: 3 testosterone 100 mg/ml cream (CPD)^Apply 0.5 mL to affected area once daily.^Disp: ^Rfl: clopidogrel (PLAVIX) 75 mg tablet^Take 1 tablet by mouth once daily.^Disp: 30 tablet^Rfl: 11 cholecalciferol (VITAMIN D3) 5,000 unit tab^Take 1 tablet by mouth once daily.^Disp: ^Rfl: sulfamethoxazole-trimethoprim (BACTRIM DS) 800-160 mg per tablet^Take 1 tablet by mouth two times a day for 10 days.^Disp: 20 tablet^Rfl: 0 tamsulosin (FLOMAX) 0.4 mg^Take 1 capsule by mouth once daily.^Disp: 90 capsule^Rfl: 3 FAMILY HISTORY Problem Relation Age of Onset Stroke Father other (lupus) Sister Diabetes Brother Diabetes Brother Social History Tobacco Use Smoking status: Never Smokeless tobacco: Never Substance Use Topics Alcohol use: No Drug use: Never Review of Systems Constitutional: Negative for chills, fatigue and fever. Respiratory: Negative for apnea, choking and chest tightness. Cardiovascular: Negative for chest pain, palpitations and leg swelling. Gastrointestinal: Negative for abdominal pain, nausea and vomiting. Genitourinary: Positive for dysuria, frequency and urgency. Negative for flank pain, hematuria and hesitancy. Skin: Negative for color change, pallor and rash. Psychiatric/Behavioral: Negative for agitation and behavioral problems. Objective BP 130/50 Pulse 63 Temp 36.4 C (97.5 F) Resp 21 Wt 66.3 kg (146 lb 2.6 oz) SpO2 98% BMI 22.22 kg/m Physical Exam Vitals and nursing note reviewed. Constitutional: General: He is not in acute distress. Appearance: Normal appearance. He is not ill-appearing, toxic-appearing or diaphoretic. HENT: Head: Normocephalic and atraumatic. Right Ear: External ear normal. Left Ear: External ear normal. Nose: Nose normal. No congestion or rhinorrhea. Mouth/Throat: Mouth: Mucous membranes are moist. Pharynx: Oropharynx is clear. No oropharyngeal exudate or posterior oropharyngeal erythema. Eyes: General: Right eye: No discharge. Left eye: No discharge. Extraocular Movements: Extraocular movements intact. Conjunctiva/sclera: Conjunctivae normal. Pupils: Pupils are equal, round, and reactive to light. Cardiovascular: Rate and Rhythm: Normal rate and regular rhythm. Pulses: Normal pulses. Heart sounds: Normal heart sounds. No murmur heard. No friction rub. No gallop. Pulmonary: Effort: Pulmonary effort is normal. No respiratory distress. Breath sounds: Normal breath sounds. No stridor. No wheezing, rhonchi or rales. Chest: Chest wall: No tenderness. Abdominal: General: Abdomen is flat. There is no distension. Palpations: Abdomen is soft. There is no mass. Tenderness: There is no abdominal tenderness. There is no guarding or rebound. Hernia: No hernia is present. Musculoskeletal: General: No swelling, tenderness, deformity or signs of injury. Normal range of motion. Cervical back: Normal range of motion and neck supple. No rigidity or tenderness. Right lower leg: No edema. Left lower leg: No edema. Lymphadenopathy: Cervical: No cervical adenopathy. Skin: General: Skin is warm and dry. Capillary Refill: Capillary refill takes less than 2 seconds. Coloration: Skin is not jaundiced or pale. Findings: No bruising, lesion or rash. Neurological: General: No focal deficit present. Mental Status: He is alert and oriented to person, place, and time. Cranial Nerves: No cranial nerve deficit. Sensory: No sensory deficit. Motor: No weakness. Coordination: Coordination normal. Gait: Gait normal. Deep Tendon Reflexes: Reflexes normal. Psychiatric: Mood and Affect: Mood normal. Behavior: Behavior normal. Thought Content: Thought content normal. Assessment and Plan ASSESSMENT/PLAN: 1. Dysuria - ICD9: 788.1, ICD10: R30.0 X one month Of note, patient was seen here on 02/06/24 for same Urine culture revealed p. Mirabilis Was prescribed Keflex Relief of sx for one week, but then returned. Cystitsi vs. Prostatits vs BPH recurrent - UA positive for dante esterase, hematuria, and proteinuria - Send urine for culture - Begin treatment with Bactrim for 10 days to cover possible prostatitis GFR > 23 September 2023 Cipro avoided related to hx AAA - Patient education for prevention given Appt made for f/u next week. - UA DIP, URINE (POC) - URINE CULTURE Kirstie Anguiano APRN.BUILDING SPECIALIST documented in this encounter [facility] 02-27-2024 Note HNO ID: [id number] Author: INDIA WOODSON RN Service: ? Author Type: Registered Nurse Type: Progress Notes Filed: 02/27/2024 11:17 Note Text: CDM Telephonic Outreach Provider Action/FYI Contacted for: Routine Telephonic Outreach Contact made with patient: Yes Patient identified by name and date of . Discussed care with patient Are you experiencing any new or worsening symptoms you need to talk about today? No Disease Specific Do you check your blood pressure at home? Yes, Enter readings: 117/52 58 Do you have new or worsening shortness of breath with activity? No Do you feel like you are dehydrated for any reason, including not being able to eat or drink normally, or having less urine/much darker urine than normal for you? No Do you check your daily weight at home? Yes, 141 pounds Have you noticed a sudden gain or loss in weight greater than three pounds in a day or five pounds in a week? 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 Routed to: No Action Needed VILMA Education Provided this Outreach: No Last fall: 12/2023 coming home from [place] -Hurrying to bathroom AND tripped up step causing small left knee abrasion Denies needs at this time Advised PCC would call again in about 1 month Reminded patient to call office of PCP with questions or concerns Patient verbalized understanding India Woodson RN February 27, 2024 11:15 AM [facility] Telephonic Outreach Provider Action/FYI Contacted for: Goals/Falls/ADL Update Contact made with patient: Yes Patient identified by name and date of . Discussed care with: patient Falls completed:Yes ADL's updated: Yes Transportation AND Food Insecurities SDH Updated India Woodson RN February 27, 2024 11:[address] [facility] 02-27-2024 History of Presen t illness Narrative [facility] Telephonic Outreach Provider Action/FYI Contacted for: Routine Telephonic Outreach Contact made with patient: Yes Patient identified by name and date of . Discussed care with patient Are you experiencing any new or worsening symptoms you need to talk about today? No Disease Specific Do you check your blood pressure at home? Yes, Enter readings: 117/52 58 Do you have new or worsening shortness of breath with activity? No Do you feel like you are dehydrated for any reason, including not being able to eat or drink normally, or having less urine/much darker urine than normal for you? No Do you check your daily weight at home? Yes, 141 pounds Have you noticed a sudden gain or loss in weight greater than three pounds in a day or five pounds in a week? 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 Routed to: No Action Needed VILMA Education Provided this Outreach: No Last fall: 12/2023 coming home from [place] -Hurrying to bathroom & tripped up step causing small left knee abrasion Denies needs at this time Advised PCC would call again in about 1 month Reminded patient to call office of PCP with questions or concerns Patient verbalized understanding India Woodson RN February 27, 2024 11:15 AM [facility] Telephonic Outreach Provider Bessy/RACHEL Contacted for: Goals/Falls/ADL Update Contact made with patient: Yes Patient identified by name and date of . Discussed care with: patient Falls completed:Yes ADL's updated: Yes Transportation & Food Insecurities SDH Updated India Woodson RN February 27, 2024 11:16 AM documented in this encounter [facility] 02-27-2024 Note Patient Outreach ([facility] HEADINGS,SERGO Suárez ([id number]) 1935 M Date Time Provider Department 02/27/24 INDIA WOODSON AMBG During your visit today, we recorded the following information about you: Pulse Blood pressure Weight 58/minute 117/52 64 kg India Woodson RN 02/27/2024 11:17 AM Signed [facility] Telephonic Outreach Provider Bessy/RACHEL Contacted for: Routine Telephonic Outreach Contact made with patient: Yes Patient identified by name and date of . Discussed care with patient Are you experiencing any new or worsening symptoms you need to talk about today? No Disease Specific Do you check your blood pressure at home? Yes, Enter readings: 117/52 58 Do you have new or worsening shortness of breath with activity? No Do you feel like you are dehydrated for any reason, including not being able to eat or drink normally, or having less urine/much darker urine than normal for you? No Do you check your daily weight at home? Yes, 141 pounds Have you noticed a sudden gain or loss in weight greater than three pounds in a day or five pounds in a week? 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 Routed to: No Action Needed VILMA Education Provided this Outreach: No Last fall: 12/2023 coming home from [place] -Hurrying to bathroom AND tripped up step causing small left knee abrasion Denies needs at this time Advised PCC would call again in about 1 month Reminded patient to call office of PCP with questions or concerns Patient verbalized understanding India Woodson RN February 27, 2024 11:15 AM [facility] Telephonic Outreach Provider Action/FYI Contacted for: Goals/Falls/ADL Update Contact made with patient: Yes Patient identified by name and date of . Discussed care with: patient Falls completed:Yes ADL's updated: Yes Transportation AND Food Insecurities SDH Updated India Woodson RN February 27, 2024 11:16 AM Allergies As of Date: 02/27/2024 Noted Allergy Reaction GLUTEN 09/23/2011 6 - Diarrhea Comments: Upset stomach Gas build up Date Reviewed: 02/06/2024 Reviewed by: Mary Mills MA - Fully Assessed Reason for Visit: Community Monitoring Outreach [Other] Cmt: [facility] Telephonic Outreach - Second Attempt Prescriptions as of 02/27/2024 - hydrocortisone 2.5 % ointment Apply to itchy areas once daily - metoprolol tartrate, short acting, (LOPRESSOR) 50 mg tablet Take 1 tablet by mouth two times a day. - MEDICATION, NON-DATABASE Algae Jared - Oil of Oregano [address] (Manta for [employer]) Take 1 softgel daily, with meals. - Saccharomyces Boulardii 60 ct. (Klaire/Prothera) Take 1 capsule by mouth two times a day with meals. - COQ10, UBIQUINOL, ORAL Take by mouth. - amLODIPine (NORVASC) 5 mg tablet Take 1 tablet in the AM and 1/2 tablet in the PM. - magnesium chloride (MAG64) [address] tablet TAKE 2 TABLETS BY MOUTH EVERY DAY - atorvastatin (LIPITOR) 40 mg tablet Take 1 tablet by mouth daily at bedtime. - testosterone 100 mg/ml cream (CPD) Apply 0.5 mL to affected area once daily. - clopidogrel (PLAVIX) 75 mg tablet Take 1 tablet by mouth once daily. - tamsulosin (FLOMAX) 0.4 mg Take 1 capsule by mouth once daily. - cholecalciferol (VITAMIN D3) 5,000 unit tab Take 1 tablet by mouth once daily. Facility-Administered Medications as of 02/27/2024 - perflutren lipid microspheres 1.3 mL in NaCl (PF) 0.9% 10 mL injection (DEFINITY) - sodium chloride 0.9 % (flush) 10 mL (BD POSIFLUSH) Meds Comments as of 02/01/2021: Magnesium once daily, Maxxum 4 multi-vitamin po bid -(Maria Luisa Pulse NAC, CO-Q-10 + PQQ), Methyl-Folate - 400 mcg daily, , Aqua Micki HP9 - 1 tsp bid and JarroSil 4 mg daily. 02/01/21 Aqua Fora 2 tablespoons daily Problem List As Of Date 02/27/2024 Noted Resolved Diverticulosis of large intestine [K57.30] Diarrhea [R19.7] 05/05/2008 Internal hemorrhoids without mention of complic*05/05/2008 Vitamin D deficiency [E55.9] 04/06/2009 Celiac disease [K90.0] 08/31/2010 Mixed hyperlipidemia [E78.2] 11/30/2010 Right shoulder pain [M25.511] 09/08/2013 09/18/2014 Disorders of bursae and tendons in shoulder reg*09/08/2013 Peripheral vascular disease (HCC) [I73.9] 02/25/2016 Abdominal aortic aneurysm without rupture (HCC)*03/11/2016 Medicare annual wellness visit, subsequent [Z00*02/08/2017 Neck pain, chronic [M54.2, G89.29] 04/25/2017 Hypertension, essential [I10] 02/02/2018 Bilateral carotid artery stenosis [I65.23] 08/20/2018 Benign prostatic hyperplasia with urinary hesit*12/13/2019 Stage 3 chronic kidney disease (HCC) [N18.30] 02/10/2021 Elevated hemoglobin A1c [R73.09] 02/10/2021 Acute diarrhea [R19.7] 03/01/2021 Hyponatremia [E87.1] 03/01/2021 Hypokalemia [E87.6] 03/02/2021 Severe protein-calorie maln (more content not included)... [facility] 02-23-2024 Note HNO ID: [id number] Author: INDIA WOODSON RN Service: ? Author Type: Registered Nurse Type: Progress Notes Filed: 02/26/2024 10:47 Note Text: [facility] Telephonic Outreach Provider Action/FYI Contacted for: Routine Telephonic Outreach Contact made with patient: Yes Patient identified by name and date of . Discussed care with patient Are you experiencing any new or worsening symptoms you need to talk about today? No Patient AND at CC for appointment for PCC will call again tomorrow India Woodson RN February 26, 2024 10:[address] [facility] 02-23-2024 History of Presen t illness Narrative [facility] Telephonic Outreach Provider Action/FYI Contacted for: Routine Telephonic Outreach Contact made with patient: Yes Patient identified by name and date of . Discussed care with patient Are you experiencing any new or worsening symptoms you need to talk about today? No Patient & at CC for appointment for PCC will call again tomorrow India Woodson RN February 26, 2024 10:46 AM documented in this encounter [facility] 02-23-2024 Note Patient Outreach ([facility] [place] HEADINGS,SERGO Suárez ([id number]) 1935 M Date Time Provider Department 02/23/24 INDIA WOODSON During your visit today, we recorded the following information about you: India Woodson RN 02/26/2024 10:47 AM Signed [facility] Telephonic Outreach Provider Bessy/RACHEL Contacted for: Routine Telephonic Outreach Contact made with patient: Yes Patient identified by name and date of . Discussed care with patient Are you experiencing any new or worsening symptoms you need to talk about today? No Patient AND at for appointment for PCC will call again tomorrow India Woodson RN February 26, 2024 10:46 AM Allergies As of Date: 02/23/2024 Noted Allergy Reaction GLUTEN 09/23/2011 6 - Diarrhea Comments: Upset stomach Gas build up Date Reviewed: 02/06/2024 Reviewed by: Mary Mills MA - Fully Assessed Reason for Visit: Community Monitoring Outreach [Other] Cmt: [facility] Telephonic Outreach - Second Attempt Prescriptions as of 02/26/2024 - hydrocortisone 2.5 % ointment Apply to itchy areas once daily - metoprolol tartrate, short acting, (LOPRESSOR) 50 mg tablet Take 1 tablet by mouth two times a day. - MEDICATION, NON-DATABASE Algae Jared - Oil of Oregano [address] ([employer]) Take 1 softgel daily, with meals. - Saccharomyces Boulardii 60 ct. (Klaire/Prothera) Take 1 capsule by mouth two times a day with meals. - COQ10, UBIQUINOL, ORAL Take by mouth. - amLODIPine (NORVASC) 5 mg tablet Take 1 tablet in the AM and 1/2 tablet in the PM. - magnesium chloride (MAG64) [address] tablet TAKE 2 TABLETS BY MOUTH EVERY DAY - atorvastatin (LIPITOR) 40 mg tablet Take 1 tablet by mouth daily at bedtime. - testosterone 100 mg/ml cream (CPD) Apply 0.5 mL to affected area once daily. - clopidogrel (PLAVIX) 75 mg tablet Take 1 tablet by mouth once daily. - tamsulosin (FLOMAX) 0.4 mg Take 1 capsule by mouth once daily. - cholecalciferol (VITAMIN D3) 5,000 unit tab Take 1 tablet by mouth once daily. Facility-Administered Medications as of 02/26/2024 - perflutren lipid microspheres 1.3 mL in NaCl (PF) 0.9% 10 mL injection (DEFINITY) - sodium chloride 0.9 % (flush) 10 mL (BD POSIFLUSH) Meds Comments as of 02/01/2021: Magnesium once daily, Maxxum 4 multi-vitamin po bid -(Maria Luisa Pulse NAC, CO-Q-10 + PQQ), Methyl-Folate - 400 mcg daily, , Aqua Micki HP9 - 1 tsp bid and JarroSil 4 mg daily. 02/01/21 Aqua Fora 2 tablespoons daily Problem List As Of Date 02/23/2024 Noted Resolved Diverticulosis of large intestine [K57.30] Diarrhea [R19.7] 05/05/2008 Internal hemorrhoids without mention of complic*05/05/2008 Vitamin D deficiency [E55.9] 04/06/2009 Celiac disease [K90.0] 08/31/2010 Mixed hyperlipidemia [E78.2] 11/30/2010 Right shoulder pain [M25.511] 09/08/2013 09/18/2014 Disorders of bursae and tendons in shoulder reg*09/08/2013 Peripheral vascular disease (HCC) [I73.9] 02/25/2016 Abdominal aortic aneurysm without rupture (HCC)*03/11/2016 Medicare annual wellness visit, subsequent [Z00*02/08/2017 Neck pain, chronic [M54.2, G89.29] 04/25/2017 Hypertension, essential [I10] 02/02/2018 Bilateral carotid artery stenosis [I65.23] 08/20/2018 Benign prostatic hyperplasia with urinary hesit*12/13/2019 Stage 3 chronic kidney disease (HCC) [N18.30] 02/10/2021 Elevated hemoglobin A1c [R73.09] 02/10/2021 Acute diarrhea [R19.7] 03/01/2021 Hyponatremia [E87.1] 03/01/2021 Hypokalemia [E87.6] 03/02/2021 Severe protein-calorie malnutrition (HCC) [E43] 03/04/2021 Synovial cyst of right popliteal space [M71.21] 02/14/2022 Nonrheumatic aortic valve insufficiency, modera*03/02/2023 Acute ischemic stroke (HCC) [I63.9] 04/04/2023 Rib fractures [S22.49XA] 04/04/2023 Traumatic pneumothorax [S27.0XXA] 04/04/2023 04/06/2023 Cerebrovascular accident (CVA) (HCC) [I63.9] 06/23/2023 Encounter Status:Closed by INDIA WOODSON on 02/26/[address] [facility] 02-06-2024 Note HNO ID: [id number] Author: ALKA MELARA PA-C Service: ? Author Type: Physician Winding Machine Operator Type: Progress Notes Filed: 02/06/2024 11:32 Note Text: This note was created using Pathfulriter. Subjective Sergo Kamini Headings is a 89 year old male. HPI Patient presents with a chief complaint of dysuria over the past 1 to 2 weeks. He states it has been burning when he is urinating off-and-on. Denies a fever. Denies back pain. No abdominal pain. No vomiting. He states he had a UTI several months ago but really does not get them frequently. Denies history of kidney stones. No blood in urine. Review of Systems Constitutional: Negative. HENT: Negative. Respiratory: Negative. Cardiovascular: Negative. Gastrointestinal: Negative. Genitourinary: Positive for dysuria. Negative for frequency, hematuria, penile discharge, penile pain, penile swelling, testicular pain and urgency. All other systems reviewed and are negative. PAST MEDICAL HISTORY Diagnosis Date Abdominal aortic aneurysm without rupture ([facility]) 03/11/[address] Singh Benign prostatic hyperplasia with urinary hesitancy 12/13/2019 Had 10h of urinary retention, Voided x2 since chang removed but small volume Begun on flomax 12/11 Obtain postvoid residual to ensure no overflow incontinence Bilateral carotid artery stenosis 08/20/2018 Celiac disease 08/31/2010 Disorders of bursae and tendons in shoulder region, unspecified 09/08/2013 Diverticulosis of large intestine Elevated hemoglobin A1c 02/10/2021 Hypertension, essential 02/02/2018 Internal hemorrhoids without mention of complication 05/05/2008 Mixed hyperlipidemia 11/30/2010 Peripheral vascular disease (HCC) 02/25/2016 Stage 3a chronic kidney disease ([facility]) 02/10/2021 Stroke, Ischemic - Right Parietal, Right Temporal-Occipital, Middle Cerebral Peduncle AND Right Cerebellar 03/2023 Synovial cyst of right popliteal space 02/14/2022 Vitamin D deficiency 04/06/2009 Current Outpatient Medications Medication Sig Dispense Refill hydrocortisone 2.5 % ointment Apply to itchy areas once daily 454 g 1 metoprolol tartrate, short acting, (LOPRESSOR) 50 mg tablet Take 1 tablet by mouth two times a day. 180 tablet 3 MEDICATION, NON-DATABASE Algae Jared Oil of Oregano [address] ([employer]) Take 1 softgel daily, with meals. Saccharomyces Boulardii 60 ct. (Klaire/Prothera) Take 1 capsule by mouth two times a day with meals. COQ10, UBIQUINOL, ORAL Take by mouth. amLODIPine (NORVASC) 5 mg tablet Take 1 tablet in the AM and 1/2 tablet in the PM. 135 tablet 3 magnesium chloride (MAG64) [address] tablet TAKE 2 TABLETS BY MOUTH EVERY DAY 60 tablet 3 atorvastatin (LIPITOR) 40 mg tablet Take 1 tablet by mouth daily at bedtime. 90 tablet 3 testosterone 100 mg/ml cream (CPD) Apply 0.5 mL to affected area once daily. clopidogrel (PLAVIX) 75 mg tablet Take 1 tablet by mouth once daily. 30 tablet 11 cholecalciferol (VITAMIN D3) 5,000 unit tab Take 1 tablet by mouth once daily. cephALEXin (KEFLEX) 500 mg capsule Take 1 capsule by mouth two times a day for 7 days. 14 capsule 0 tamsulosin (FLOMAX) 0.4 mg Take 1 capsule by mouth once daily. 90 capsule 3 Current Facility-Administered Medications Medication Dose Route Frequency Provider Last Rate Last Admin perflutren lipid microspheres 1.3 mL in NaCl (PF) 0.9% 10 mL injection (DEFINITY) INTRAVENOUS DIRECTED PRN Walter Nuñez MD sodium chloride 0.9 % (flush) 10 mL (BD POSIFLUSH) 10 mL INTRAVENOUS DIRECTED PRN Walter Nuñez MD PAST SURGICAL HISTORY Procedure Laterality Date ABD AORTA ANEURYSM REPAIR 11/2019 COLONOSCOPY FLX DX W/COLLJ SPEC WHEN PFRMD 03/23/2004 Colonoscopy COLONOSCOPY FLX DX W/COLLJ SPEC WHEN PFRMD 05/05/2008 Colonoscopy, repeat 10 yrs PAST SURGICAL HISTORY OF 04/14/2004 excision of lesion neck PAST SURGICAL HISTORY OF 02/21/1992 lesion removed from rectum FAMILY HISTORY Problem Relation Age of Onset Stroke Father other (lupus) Sister Diabetes Brother Diabetes Brother Social History Tobacco Use Smoking status: Never Smokeless tobacco: Never Substance Use Topics Alcohol use: No Drug use: Never Objective BP 124/60 Pulse 60 Temp 36.1 ?C (96.9 ?F) Resp 16 Wt 67.4 kg (148 lb 9.4 oz) SpO2 95% BMI 22.59 kg/m? Physical Exam Vitals reviewed. Constitutional: Appearance: Normal appearance. HENT: Head: Normocephalic and atraumatic. Cardiovascular: Rate and Rhythm: Normal rate and regular rhythm. Heart sounds: Normal heart sounds. Pulmonary: Effort: Pulmonary effort is normal. Breath sounds: Normal breath sounds. Abdominal: General: Abdomen is flat. Palpations: Abdomen is soft. Tenderness: There is no abdominal tenderness. There is no right CVA tenderness or left CVA tenderness. Musculoskeletal: Cervical back: Neck supple. Skin: General: Skin is warm and dry. Neurological: Mental Status: He is alert. Assessme (more content not included)... [facility] 02-06-2024 History of Presen t illness Narrative This note was created using Productifyter. Subjective Sergo Rosas is a 89 year old male. HPI Patient presents with a chief complaint of dysuria over the past 1 to 2 weeks. He states it has been burning when he is urinating off-and-on. Denies a fever. Denies back pain. No abdominal pain. No vomiting. He states he had a UTI several months ago but really does not get them frequently. Denies history of kidney stones. No blood in urine. Review of Systems Constitutional: Negative. HENT: Negative. Respiratory: Negative. Cardiovascular: Negative. Gastrointestinal: Negative. Genitourinary: Positive for dysuria. Negative for frequency, hematuria, penile discharge, penile pain, penile swelling, testicular pain and urgency. All other systems reviewed and are negative. PAST MEDICAL HISTORY Diagnosis Date Abdominal aortic aneurysm without rupture (HCC) 03/11/[address] Singh Benign prostatic hyperplasia with urinary hesitancy 12/13/2019 Had 10h of urinary retention, Voided x2 since chang removed but small volume Begun on flomax 12/11 Obtain postvoid residual to ensure no overflow incontinence Bilateral carotid artery stenosis 08/20/2018 Celiac disease 08/31/2010 Disorders of bursae and tendons in shoulder region, unspecified 09/08/2013 Diverticulosis of large intestine Elevated hemoglobin A1c 02/10/2021 Hypertension, essential 02/02/2018 Internal hemorrhoids without mention of complication 05/05/2008 Mixed hyperlipidemia 11/30/2010 Peripheral vascular disease (HCC) 02/25/2016 Stage 3a chronic kidney disease (HCC) 02/10/2021 Stroke, Ischemic - Right Parietal, Right Temporal-Occipital, Middle Cerebral Peduncle & Right Cerebellar 03/2023 Synovial cyst of right popliteal space 02/14/2022 Vitamin D deficiency 04/06/2009 Current Outpatient Medications Medication Sig Dispense Refill hydrocortisone 2.5 % ointment Apply to itchy areas once daily 454 g 1 metoprolol tartrate, short acting, (LOPRESSOR) 50 mg tablet Take 1 tablet by mouth two times a day. 180 tablet 3 MEDICATION, NON-DATABASE Algae Jared Oil of Oregano [address] ([employer]) Take 1 softgel daily, with meals. Saccharomyces Boulardii 60 ct. (Klaire/Prothera) Take 1 capsule by mouth two times a day with meals. COQ10, UBIQUINOL, ORAL Take by mouth. amLODIPine (NORVASC) 5 mg tablet Take 1 tablet in the AM and 1/2 tablet in the PM. 135 tablet 3 magnesium chloride (MAG64) [address] tablet TAKE 2 TABLETS BY MOUTH EVERY DAY 60 tablet 3 atorvastatin (LIPITOR) 40 mg tablet Take 1 tablet by mouth daily at bedtime. 90 tablet 3 testosterone 100 mg/ml cream (CPD) Apply 0.5 mL to affected area once daily. clopidogrel (PLAVIX) 75 mg tablet Take 1 tablet by mouth once daily. 30 tablet 11 cholecalciferol (VITAMIN D3) 5,000 unit tab Take 1 tablet by mouth once daily. cephALEXin (KEFLEX) 500 mg capsule Take 1 capsule by mouth two times a day for 7 days. 14 capsule 0 tamsulosin (FLOMAX) 0.4 mg Take 1 capsule by mouth once daily. 90 capsule 3 Current Facility-Administered Medications Medication Dose Route Frequency Provider Last Rate Last Admin perflutren lipid microspheres 1.3 mL in NaCl (PF) 0.9% 10 mL injection (DEFINITY) INTRAVENOUS DIRECTED PRN Walter Nuñez MD sodium chloride 0.9 % (flush) 10 mL (BD POSIFLUSH) 10 mL INTRAVENOUS DIRECTED PRN Walter Nuñez MD PAST SURGICAL HISTORY Procedure Laterality Date ABD AORTA ANEURYSM REPAIR 11/2019 COLONOSCOPY FLX DX W/COLLJ SPEC WHEN PFRMD 03/23/2004 Colonoscopy COLONOSCOPY FLX DX W/COLLJ SPEC WHEN PFRMD 05/05/2008 Colonoscopy, repeat 10 yrs PAST SURGICAL HISTORY OF 04/14/2004 excision of lesion neck PAST SURGICAL HISTORY OF 02/21/1992 lesion removed from rectum FAMILY HISTORY Problem Relation Age of Onset Stroke Father other (lupus) Sister Diabetes Brother Diabetes Brother Social History Tobacco Use Smoking status: Never Smokeless tobacco: Never Substance Use Topics Alcohol use: No Drug use: Never Objective BP 124/60 Pulse 60 Temp 36.1 C (96.9 F) Resp 16 Wt 67.4 kg (148 lb 9.4 oz) SpO2 95% BMI 22.59 kg/m Physical Exam Vitals reviewed. Constitutional: Appearance: Normal appearance. HENT: Head: Normocephalic and atraumatic. Cardiovascular: Rate and Rhythm: Normal rate and regular rhythm. Heart sounds: Normal heart sounds. Pulmonary: Effort: Pulmonary effort is normal. Breath sounds: Normal breath sounds. Abdominal: General: Abdomen is flat. Palpations: Abdomen is soft. Tenderness: There is no abdominal tenderness. There is no right CVA tenderness or left CVA tenderness. Musculoskeletal: Cervical back: Neck supple. Skin: General: Skin is warm and dry. Neurological: Mental Status: He is alert. Assessment and Plan ASSESSMENT/PLAN: 1. Acute UTI - ICD9: 599.0, ICD10: N39.0 acute - UA positive for dante esterase and hematuria - Send urine for culture - Begin treatment with keflex for 7 days - UA DIP, URINE (POC) - URINE CULTURE Alka Melara PA-C documented in this encounter [facility] 02-06-2024 Instructions Vernell Martinez PA-C - 02/06/2024 10:15 AM EDT Follow up with your primary care provider about urinary changes Continue with stroke prevention General guidelines for stroke risk factor management, if present Hypertension Target blood pressure <140/90, <130/80 for high risk; normal is 120/80 Hyperlipidemia Target total cholesterol < 200 Target LDL <100, < 70 for high risk Target HDL >45 for men, >55 for women Target triglycerides <150 Diabetes Target HgbA1c <7% Smoking Target is smoking cessation Physical inactivity Target is exercise at least 3 times per week Target waist circumference, in inches is <35 for women and <40 for men Follow up in 6 months documented in this encounter [facility] 02-06-2024 Note HNO ID: [id number] Author: VERNELL MARTINEZ PA-C Service: ? Author Type: Physician Winding Machine Operator Type: Progress Notes Filed: 02/06/2024 10:27 Note Text: ESTABLISHED PATIENT VISIT Last visit: 08/08/23 ASSESSMENT/PLAN: 1. 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 Left-sided weakness - ICD9: 728.87, ICD10: R53.1 3. Vision loss of left eye - ICD9: 369.8, ICD10: H54.62 Patient doing very well since last appointment, no new deficits and notes that his strength and vision is improving since last appointment. Notes that he saw an eye doctor and states his visual izaguirre were normal with normal exam otherwise. No new symptoms since last appointment, compliant with Plavix and statin medications, following with primary care for other risk factors as well. Did complete his heart monitor, states that they have not been able to find his results, is following with cardiology for this. Due to multiple cortical strokes, concern for atrial fibrillation or other arrhythmia contribute to patient's symptoms. We will have him reach out to cardiology for further monitoring of this. At this time, we will continue Plavix therapy, patient without any falls or risk for falling. Did discuss driving, patient did have some mild vision loss that was appreciable on last exam, but this is minimal today. Patient did hesitate in the left lower visual field but was still correct number of fingers that he saw. From a vision standpoint, as he saw an eye doctor and states that his visual exam was normal, we will have him resume driving. Discussed driving locally at first with someone in the car and adjusting as tolerated. No concerns for memory or any other contributing factor regarding his driving. Patient agrees and understands. Discussed managing risk factors for stroke with family medicine as well along with staying active increasing water intake. Patient agrees and understands. Patient and family agreeable to treatment plan of care at this time, all questions were answered. Patient to follow-up in 6 months or sooner should any symptoms change or worsen. Vernell Martinez PA-C CHIEF COMPLAINT: follow up HISTORY OF PRESENT ILLNESS: Sergo Rosas is a 89 year old male, There were no vitals taken for this visit. with a PMH significant for CVA, HLD, AAA, PVD, HTN, CKD stage 3 . Last seen 08/08/23 for stroke follow up. Doing well, no deficits. On plavix and statin, following with PCP. Last saw cardiology on 01/24/24. Patient presents with his for follow-up appointment. No new symptoms since last appointment. Still compliant with his Plavix and statin medication, no new neurologic symptoms or concerns today. Notes good activity good water intake. No vision changes or worsening vision. Recently drove all the way to [place] without any issues, no issues with memory. Does not 1 fall while he was on his way back from [place]. States he was coming up on a curb and did not pick his foot up high enough, tripped. Attributes this to being in a rivera because he had used the restroom. Fell onto his knees and had a small scratch but no significant injury, no head injury. Does note today he has some foul-smelling urine and some dysuria. No confusion or fevers. REVIEW OF SYSTEMS GENERAL:No weight loss, malaise or fevers. HEENT:Negative for frequent or significant headaches, No changes in hearing or vision, no nose bleeds or other nasal problems NECK:Negative for lumps, goiter, pain and significant neck swelling RESPIRATORY: Negative for cough, wheezing or shortness of breath. CARDIOVASCULAR: Negative for chest pain, leg swelling or palpitations. GASTROINTESTINAL: Negative for abdominal discomfort, blood in stools or black stools or change in bowel habits GENITOURINARY: No history of dysuria, frequency or incontinence MUSCULOSKELETAL: Negative for joint pain or swelling, back pain or muscle pain. NEUROLOGIC:Negative for focal numbness or weakness, headaches and dizziness or syncope, vision changes, speech/languag changes - EXCEPT that as per HPI above. SKIN:Negative for lesions, rash, and itching. PSYCHIATRIC: Negative for sleep disturbance, mood disorder and recent psychosocial stressors. HEMATOLOGIC/LYMPHATIC/IMMUNOLOGI C:Negative for prolonged bleeding, bruising easily or swollen nodes. ENDOCRINE: Negative for cold or heat intolerance, polyuria, polydipsia and goiter. The remainder of the ROS was reviewed and is negative. LAB/IMAGING: Those performed since patient's last visit have been reviewed. None since last appointment MEDICATIONS: metoprolol tartrate, short acting, (LOPRESSOR) 50 mg tabletTake 1 tablet by mouth two times a day.Disp: 180 tabletRfl: 3 Oil of Oregano [address] ([employer])Take 1 softgel daily, with meals.Disp: Rfl: COQ10, UBIQUINOL, ORALTake by mouth.Disp: Rfl: amLODIPine (NORVASC) 5 m (more content not included)... [facility] 02-06-2024 History of Presen t illness Narrative ESTABLISHED PATIENT VISIT Last visit: 08/08/23 ASSESSMENT/PLAN: 1. 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 Left-sided weakness - ICD9: 728.87, ICD10: R53.1 3. Vision loss of left eye - ICD9: 369.8, ICD10: H54.62 Patient doing very well since last appointment, no new deficits and notes that his strength and vision is improving since last appointment. Notes that he saw an eye doctor and states his visual izaguirre were normal with normal exam otherwise. No new symptoms since last appointment, compliant with Plavix and statin medications, following with primary care for other risk factors as well. Did complete his heart monitor, states that they have not been able to find his results, is following with cardiology for this. Due to multiple cortical strokes, concern for atrial fibrillation or other arrhythmia contribute to patient's symptoms. We will have him reach out to cardiology for further monitoring of this. At this time, we will continue Plavix therapy, patient without any falls or risk for falling. Did discuss driving, patient did have some mild vision loss that was appreciable on last exam, but this is minimal today. Patient did hesitate in the left lower visual field but was still correct number of fingers that he saw. From a vision standpoint, as he saw an eye doctor and states that his visual exam was normal, we will have him resume driving. Discussed driving locally at first with someone in the car and adjusting as tolerated. No concerns for memory or any other contributing factor regarding his driving. Patient agrees and understands. Discussed managing risk factors for stroke with family medicine as well along with staying active increasing water intake. Patient agrees and understands. Patient and family agreeable to treatment plan of care at this time, all questions were answered. Patient to follow-up in 6 months or sooner should any symptoms change or worsen. Vernell Martinez PA-C CHIEF COMPLAINT: follow up HISTORY OF PRESENT ILLNESS: Sergo Rosas is a 89 year old male, There were no vitals taken for this visit. with a PMH significant for CVA, HLD, AAA, PVD, HTN, CKD stage 3 . Last seen 08/08/23 for stroke follow up. Doing well, no deficits. On plavix and statin, following with PCP. Last saw cardiology on 01/24/24. Patient presents with his for follow-up appointment. No new symptoms since last appointment. Still compliant with his Plavix and statin medication, no new neurologic symptoms or concerns today. Notes good activity good water intake. No vision changes or worsening vision. Recently drove all the way to [place] without any issues, no issues with memory. Does not 1 fall while he was on his way back from [place]. States he was coming up on a curb and did not pick his foot up high enough, tripped. Attributes this to being in a rivera because he had used the restroom. Fell onto his knees and had a small scratch but no significant injury, no head injury. Does note today he has some foul-smelling urine and some dysuria. No confusion or fevers. REVIEW OF SYSTEMS GENERAL:No weight loss, malaise or fevers. HEENT:Negative for frequent or significant headaches, No changes in hearing or vision, no nose bleeds or other nasal problems NECK:Negative for lumps, goiter, pain and significant neck swelling RESPIRATORY: Negative for cough, wheezing or shortness of breath. CARDIOVASCULAR: Negative for chest pain, leg swelling or palpitations. GASTROINTESTINAL: Negative for abdominal discomfort, blood in stools or black stools or change in bowel habits GENITOURINARY: No history of dysuria, frequency or incontinence MUSCULOSKELETAL: Negative for joint pain or swelling, back pain or muscle pain. NEUROLOGIC:Negative for focal numbness or weakness, headaches and dizziness or syncope, vision changes, speech/languag changes - EXCEPT that as per HPI above. SKIN:Negative for lesions, rash, and itching. PSYCHIATRIC: Negative for sleep disturbance, mood disorder and recent psychosocial stressors. HEMATOLOGIC/LYMPHATIC/IMMUNOLOGI C:Negative for prolonged bleeding, bruising easily or swollen nodes. ENDOCRINE: Negative for cold or heat intolerance, polyuria, polydipsia and goiter. The remainder of the ROS was reviewed and is negative. LAB/IMAGING: Those performed since patient's last visit have been reviewed. None since last appointment MEDICATIONS: metoprolol tartrate, short acting, (LOPRESSOR) 50 mg tablet^Take 1 tablet by mouth two times a day.^Disp: 180 tablet^Rfl: 3 Oil of Oregano [address] ([employer])^Take 1 softgel daily, with meals.^Disp: ^Rfl: COQ10, UBIQUINOL, ORAL^Take by mouth.^Disp: ^Rfl: amLODIPine (NORVASC) 5 mg tablet^Take 1 tablet in the AM and 1/2 tablet in the PM.^Disp: 135 tablet^Rfl: 3 atorvastatin (LIPITOR) 40 mg tablet^Take 1 tablet by mouth daily at bedtime.^Disp: 90 tablet^Rfl: 3 testosterone 100 mg/ml cream (CPD)^Apply 0.5 mL to affected area once daily.^Disp: ^Rfl: clopidogrel (PLAVIX) 75 mg tablet^Take 1 tablet by mouth once daily.^Disp: 30 tablet^Rfl: 11 cholecalciferol (VITAMIN D3) 5,000 unit tab^Take 1 tablet by mouth once daily.^Disp: ^Rfl: hydrocortisone 2.5 % ointment^Apply to itchy areas once daily^Disp: 454 g^Rfl: 1 MEDICATION, NON-DATABASE^Algae Jared^Disp: ^Rfl: Saccharomyces Boulardii 60 ct[address] (Klaire/Prothera)^Take 1 capsule by mouth two times a day with meals.^Disp: ^Rfl: (Patient not taking: Reported on 02/06/2024) magnesium chloride (MAG64) [address] tablet^TAKE 2 TABLETS BY MOUTH EVERY DAY^Disp: 60 tablet^Rfl: 3 (Patient not taking: Reported on 02/06/2024) tamsulosin (FLOMAX) 0.4 mg^Take 1 capsule by mouth once daily.^Disp: 90 capsule^Rfl: 3 HISTORIES PAST MEDICAL HISTORY Diagnosis Date Abdominal aortic aneurysm without rupture (HCC) 03/11/[address] Singh Benign prostatic hyperplasia with urinary hesitancy 12/13/2019 Had 10h of urinary retention, Voided x2 since chang removed but small volume Begun on flomax 12/11 Obtain postvoid residual to ensure no overflow incontinence Bilateral carotid artery stenosis 08/20/2018 Celiac disease 08/31/2010 Disorders of bursae and tendons in shoulder region, unspecified 09/08/2013 Diverticulosis of large intestine Elevated hemoglobin A1c 02/10/2021 Hypertension, essential 02/02/2018 Internal hemorrhoids without mention of complication 05/05/2008 Mixed hyperlipidemia 11/30/2010 Peripheral vascular disease (HCC) 02/25/2016 Stage 3a chronic kidney disease (HCC) 02/10/2021 Stroke, Ischemic - Right Parietal, Right Temporal-Occipital, Middle Cerebral Peduncle & Right Cerebellar 03/2023 Synovial cyst of right popliteal space 02/14/2022 Vitamin D deficiency 04/06/2009 FAMILY HISTORY Problem Relation Age of Onset Stroke Father other (lupus) Sister Diabetes Brother Diabetes Brother SOCIAL HISTORY Social History Tobacco Use Smoking status: Never Smokeless tobacco: Never Substance Use Topics Alcohol use: No Drug use: Never PHYSICAL EXAMINATION BP (P) 124/62 Pulse (!) (P) 57 Resp (P) 16 Wt (P) 66 kg (145 lb 9.6 oz) SpO2 (P) 95% BMI (P) 22.14 kg/m GENERAL EXAM: General appearance: NAD, pleasant. HEENT: NC/AT, nasal congestion absent, no oral lesions, membranes moist. NECK: No masses, supple. Lungs: Breathing comfortably Extr: Moves all extremities without difficulty Skin: Cool to touch. No rash. NEUROLOGICAL EXAM: General: Awake, alert, oriented x3 (person,place,time), speech fluent, no dysarthria; comprehension, naming, repetition intact. Short and penitentiary memory intact. CN: PERRL, fundi appear normal including no evidence of papilledema, EOMI and without nystagmus, VFF to confrontation (possible small deficit on the left field), facial sensation and strength are normal and symmetric, hearing is intact to finger rub bilaterally, palate and tongue movements are intact and symmetric. SCM and trapezius strength normal. Motor: Normal tone, bulk and strength (5/5) bilaterally (throughout extremities x4). Reflexes: 2/4 and symmetric, plantar stimulation is flexor. Coordination: FNF intact. No tremors. Sensation: No evidence of neglect. Gait: Narrow based and stable with normal stride and arm swing. Assessment and Plan: ASSESSMENT/PLAN: 1. 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 Left-sided weakness - ICD9: 728.87, ICD10: R53.1 3. Vision loss of left eye - ICD9: 369.8, ICD10: H54.62 Patient still doing well, no new concerns today. Compliant with his statin, Plavix and following with cardiology. Notes 1 fall since last appointment but this was mechanical in nature, no dizziness or syncope. No significant injury with this including head injury. No new neurologic symptoms, notes that he is driving without issue, completed a cross-country trip to [place] recently with his . No new symptoms that would warrant additional imaging or workup at this time. Will continue with current regimen including Plavix and statin medications. A1c goal less than 7%, BP under 140/90, target LDL cholesterol under 70. Patient does report some dysuria and foul-smelling urine over the last few days. Encouraged him to reach out to primary care or go to express care today for UA. Patient agrees and understands. No confusion today normal vital signs. Patient agreeable to treatment plan of care at this time, questions were answered. Patient to follow-up in 6 months or sooner should any symptoms change or worsen. Vernell Martinez PA-C I spent a total of 20 minutes on the date of the service which included preparing to see the patient, [id number] patient care, completing clinical documentation, obtaining and/or reviewing separately obtained history, performing a medically appropriate examination, counseling and educating the patient/family/caregiver, and ordering medications, tests, or procedures. This document has been created with the use of voice recognition technology. It may contain inaccuracies: (e.g. misspellings, inaccurate syntax or word sense) that have escaped review. documented in this encounter [facility] 01-29-2024 Note HNO ID: [id number] Author: KATHY HUGGINS MD Service: ? Author Type: Physician Type: Progress Notes Filed: 01/30/2024 08:03 Note Text: FUNCTIONAL MEDICINE FOLLOW-UP ASSESSMENT Patient: Sergo Suárez Headings 65.6 kg (144 lb 9.6 oz) 172.7 cm (5' 8 ) Body mass index is 21.99 kg/m?. Resting Metabolic Rate: 1331 Waist measurement: No waist measurement recorded. BP: 123/56 ALLERGIES Allergen Reactions Gluten Diarrhea Upset stomach Gas build up Current Outpatient Medications on File Prior to Visit Medication Sig tamsulosin (FLOMAX) 0.4 mg Take 1 capsule by mouth once daily. metoprolol tartrate, short acting, (LOPRESSOR) 50 mg tablet Take 1 tablet by mouth twice daily. SprectraZyme Mcqueen 9x ES Take 1 tablet by mouth w MEALS. q-tsctziziu-pagkaobn root extract-aloe leaf extract (GLUTAGENICS) [id number] powder Mix one teaspoon (4.33 g) with water three times daily (1 teaspoon = 3.5 grams L-glut) milk thistle seed extract 200 mg cap Take by mouth. cholecalciferol (VITAMIN D3) 5,000 unit tab Take 1 tablet by mouth once daily. ZINC ORAL Take 50 mg by mouth once daily. TESTOSTERONE, BULK, MISC Cream Aspirin 81 mg tab Take 1 tablet by mouth once daily. CandiBactin AR (Metagenics) One softgel three times daily with meals CandiBactin BR (Metagenics) Two tablets three times daily Biocidin Advanced Formula (FirstBest) Take 5 Drops by mouth three times daily. Atrantil One (2) capsule per day up to 3 x's a day with food. hydrOXYzine HCl (ATARAX) 25 mg tablet TAKE 1 TABLET BY MOUTH THREE TIMES DAILY NEEDED FOR ITCHING/RASH. turmeric (CURCUMIN MISC) selenium 200 mcg tablet Take 1 tablet by mouth once daily. Flaxseed Oil 1,000 mg cap Take by mouth. (Patient not taking: Reported on 08/08/2022) OTC PRODUCT Liver md 2 caps daily OTC PRODUCT Arterial protect one cap dialy OTC PRODUCT digestzymes-- pancreatic enzymes (Patient not taking: Reported on 08/08/2022) GLUTATHIONE ORAL Take by mouth. MAGNESIUM ORAL Take 600 mg by mouth once daily. Glutamine (L-GLUTAMINE) 500 mg cap Take by mouth once daily. ubidecarenone (COQ-10 ORAL) Take 200 mg by mouth once daily. VITAMIN K2 ORAL Take 550 mcg by mouth once daily. cyanocobalamin/folic ac/vit B6 (HOMOCYSTEINE FORMULA ORAL) Take by mouth once daily. 2 capsules (Patient not taking: Reported on 08/08/2022) Lactobacillus acidophilus (PROBIOTIC ORAL) Take by mouth once daily. (Patient not taking: Reported on 08/08/2022) triamcinolone acetonide (KENALOG) 0.1 % cream Apply 1 application to affected area twice daily as needed (Avoid use on the face and eyelids). homeopathic drugs (PROSTATE ORAL) (Patient not taking: Reported on 08/08/2022) cholestyramine (QUESTRAN) 4 gram packet prn CYANOCOBALAMIN, VITAMIN B-12, (VITAMIN B-12 ORAL) Take by mouth once daily. (Patient not taking: Reported on 08/08/2022) No current facility-administered medications on file prior to visit. PAST MEDICAL HISTORY Diagnosis Date Abdominal aortic aneurysm without rupture (HCC) 03/11/[address] Singh Benign prostatic hyperplasia with urinary hesitancy 12/13/2019 Had 10h of urinary retention, Voided x2 since chang removed but small volume Begun on flomax 12/11 Obtain postvoid residual to ensure no overflow incontinence Bilateral carotid artery stenosis 08/20/2018 Celiac disease 08/31/2010 Disorders of bursae and tendons in shoulder region, unspecified 09/08/2013 Diverticulosis of large intestine Elevated hemoglobin A1c 02/10/2021 Hypertension, essential 02/02/2018 Internal hemorrhoids without mention of complication 05/05/2008 Mixed hyperlipidemia 11/30/2010 Peripheral vascular disease (HCC) 02/25/2016 Stage 3a chronic kidney disease (HCC) 02/10/2021 Stroke, Ischemic - Right Parietal, Right Temporal-Occipital, Middle Cerebral Peduncle AND Right Cerebellar 03/2023 Synovial cyst of right popliteal space 02/14/2022 Vitamin D deficiency 04/06/2009 PAST SURGICAL HISTORY Procedure Laterality Date ABD AORTA ANEURYSM REPAIR 11/2019 COLONOSCOPY FLX DX W/COLLJ SPEC WHEN PFRMD 03/23/2004 Colonoscopy COLONOSCOPY FLX DX W/COLLJ SPEC WHEN PFRMD 05/05/2008 Colonoscopy, repeat 10 yrs PAST SURGICAL HISTORY OF 04/14/2004 excision of lesion neck PAST SURGICAL HISTORY OF 02/21/1992 lesion removed from rectum Family History Problem Relation Age of Onset Stroke Father other (lupus) Sister Diabetes Brother Diabetes Brother Social History Tobacco Use Smoking status: Never Smokeless tobacco: Never Substance Use Topics Alcohol use: No Drug use: Never EVALUATION Patient presents with: Established Patient 01/29/24 Katyh Huggins MD Last Visit on Sep 2023 Provider Bhavna Symptoms What is the severity of your symptoms? Fluctuating Gut - bowels functioning - noting use of imodium for episodes - noting Current Health Status: Dietary Adjustments: The patient's diet has been modified by his spouse to (more content not included)... [facility] 01-29-2024 History of Presen t illness Narrative FUNCTIONAL MEDICINE FOLLOW-UP ASSESSMENT Patient: Sergo Suárez Headings 65.6 kg (144 lb 9.6 oz) 172.7 cm (5' 8 ) Body mass index is 21.99 kg/m . Resting Metabolic Rate: 1331 Waist measurement: No waist measurement recorded. BP: 123/56 ALLERGIES Allergen Reactions Gluten Diarrhea Upset stomach Gas build up Current Outpatient Medications on File Prior to Visit Medication Sig tamsulosin (FLOMAX) 0.4 mg Take 1 capsule by mouth once daily. metoprolol tartrate, short acting, (LOPRESSOR) 50 mg tablet Take 1 tablet by mouth twice daily. SprectraZyme Mcqueen 9x ES Take 1 tablet by mouth w MEALS. k-lcqiwcbvo-diwysxqa root extract-aloe leaf extract (GLUTAGENICS) [id number] powder Mix one teaspoon (4.33 g) with water three times daily (1 teaspoon = 3.5 grams L-glut) milk thistle seed extract 200 mg cap Take by mouth. cholecalciferol (VITAMIN D3) 5,000 unit tab Take 1 tablet by mouth once daily. ZINC ORAL Take 50 mg by mouth once daily. TESTOSTERONE, BULK, MISC Cream Aspirin 81 mg tab Take 1 tablet by mouth once daily. CandiBactin AR (Metagenics) One softgel three times daily with meals CandiBactin BR (Metagenics) Two tablets three times daily Biocidin Advanced Formula (FirstBest) Take 5 Drops by mouth three times daily. Atrantil One (2) capsule per day up to 3 x's a day with food. hydrOXYzine HCl (ATARAX) 25 mg tablet TAKE 1 TABLET BY MOUTH THREE TIMES DAILY NEEDED FOR ITCHING/RASH. turmeric (CURCUMIN MISC) selenium 200 mcg tablet Take 1 tablet by mouth once daily. Flaxseed Oil 1,000 mg cap Take by mouth. (Patient not taking: Reported on 08/08/2022) OTC PRODUCT Liver md 2 caps daily OTC PRODUCT Arterial protect one cap dialy OTC PRODUCT digestzymes-- pancreatic enzymes (Patient not taking: Reported on 08/08/2022) GLUTATHIONE ORAL Take by mouth. MAGNESIUM ORAL Take 600 mg by mouth once daily. Glutamine (L-GLUTAMINE) 500 mg cap Take by mouth once daily. ubidecarenone (COQ-10 ORAL) Take 200 mg by mouth once daily. VITAMIN K2 ORAL Take 550 mcg by mouth once daily. cyanocobalamin/folic ac/vit B6 (HOMOCYSTEINE FORMULA ORAL) Take by mouth once daily. 2 capsules (Patient not taking: Reported on 08/08/2022) Lactobacillus acidophilus (PROBIOTIC ORAL) Take by mouth once daily. (Patient not taking: Reported on 08/08/2022) triamcinolone acetonide (KENALOG) 0.1 % cream Apply 1 application to affected area twice daily as needed (Avoid use on the face and eyelids). homeopathic drugs (PROSTATE ORAL) (Patient not taking: Reported on 08/08/2022) cholestyramine (QUESTRAN) 4 gram packet prn CYANOCOBALAMIN, VITAMIN B-12, (VITAMIN B-12 ORAL) Take by mouth once daily. (Patient not taking: Reported on 08/08/2022) No current facility-administered medications on file prior to visit. PAST MEDICAL HISTORY Diagnosis Date Abdominal aortic aneurysm without rupture (HCC) 03/11/[address] Singh Benign prostatic hyperplasia with urinary hesitancy 12/13/2019 Had 10h of urinary retention, Voided x2 since chang removed but small volume Begun on flomax 12/11 Obtain postvoid residual to ensure no overflow incontinence Bilateral carotid artery stenosis 08/20/2018 Celiac disease 08/31/2010 Disorders of bursae and tendons in shoulder region, unspecified 09/08/2013 Diverticulosis of large intestine Elevated hemoglobin A1c 02/10/2021 Hypertension, essential 02/02/2018 Internal hemorrhoids without mention of complication 05/05/2008 Mixed hyperlipidemia 11/30/2010 Peripheral vascular disease (HCC) 02/25/2016 Stage 3a chronic kidney disease (HCC) 02/10/2021 Stroke, Ischemic - Right Parietal, Right Temporal-Occipital, Middle Cerebral Peduncle & Right Cerebellar 03/2023 Synovial cyst of right popliteal space 02/14/2022 Vitamin D deficiency 04/06/2009 PAST SURGICAL HISTORY Procedure Laterality Date ABD AORTA ANEURYSM REPAIR 11/2019 COLONOSCOPY FLX DX W/COLLJ SPEC WHEN PFRMD 03/23/2004 Colonoscopy COLONOSCOPY FLX DX W/COLLJ SPEC WHEN PFRMD 05/05/2008 Colonoscopy, repeat 10 yrs PAST SURGICAL HISTORY OF 04/14/2004 excision of lesion neck PAST SURGICAL HISTORY OF 02/21/1992 lesion removed from rectum Family History Problem Relation Age of Onset Stroke Father other (lupus) Sister Diabetes Brother Diabetes Brother Social History Tobacco Use Smoking status: Never Smokeless tobacco: Never Substance Use Topics Alcohol use: No Drug use: Never EVALUATION Patient presents with: Established Patient 01/29/24 Kathy Huggins MD Last Visit on Sep 2023 Provider Bhavna Symptoms What is the severity of your symptoms? Fluctuating Gut - bowels functioning - noting use of imodium for episodes - noting Current Health Status: Dietary Adjustments: The patient's diet has been modified by his spouse to manage symptoms, though occasional deviations contribute to ongoing issues such as abdominal bloating and diarrhea. Previous Findings: Past evaluations have indicated sensitivities and possible Charissa involvement, which may still be affecting his gastrointestinal health. Following the recommended food plan? Grain Free - moved to Cassava flour. Able to eat sweet potatoes, apples, grapes. Not able to tolerate soy (worse) Bowel Habits Do you have a daily bowel movement? Yes Number of movements? multiple Quality of movements Loose 09/27/23 Kathy Huggins MD Last Visit on Apr 2023 Provider Bhavna Symptoms What is the severity of your symptoms? Bowels - still with bloating / diarrhea. Noting no blood at times. Some dairy via goat milk and grains. Given Charissa Food plan info last visit. Not on Yeast Formula as discussed. Apr 2023 Kathy Huggins MD Last Visit on January 223 Provider Bhavna Symptoms What is the severity of your symptoms? Sustained CVA in March - rehab in [place]. Now living in [place] with . Still working on strengthening with ROM / function at this time . Due to CVA on Statin at this time Completed nutrEval January 2023 Kathy Huggins MD Last Visit on 10/12/22 Provider: Bhavna Symptoms What is the severity of your symptoms? Improved - Abdominal - noting less bloating. More form to stool than prior. Completed removal phase of 5R (Xifax, Candibactin AR/BR and Biocidin). Noting use of glutagenics, Biohm and enzymes current time. Following the recommended food plan? Yes - minimal use of cruciferous. Keeping away from certain items - noting issue with worsening symptoms - Supplements Are you taking recommended supplements? Yes - as above. With Vit D, Zinc Sleep Habit Described the quality of your sleep Well. Noting 7 to 8 hours. Bowel Habits Do you have a daily bowel movement? Yes - at night and one in day. No blood or mucus. Weight Are you measuring your weight? Yes - steady. Holding at 148 lbs 10/12/2022 Kathy Huggins MD Last Visit on July 2022 Provider: Bhavna Symptoms What is the severity of your symptoms? Noting shift in health with COVID. No GI symptoms (URI symptoms) Noting bowel shifting from loose to formed with diet (see below). LArge amount of gas noted. Completed GI Effects for review this PM Following the recommended food plan? Not entirely - Need to establishment Noting range of food narrow Cereal, fruit, goat cheese, eggs, chicken), fruit (berries, banana), beets, protein ( Initial Visit 08/08/22 - Bhavna Patient presents with: New Patient Change In Bowel Habits Patient Goals: 1., Abdominal pain - noting 15 years with abdominal symptoms of loose stool and bloating. progressive Noting food sensitivity. Dx in 2011 with collagenous colitis . Noting in September 2021 passing of worm (brought into office) - use of Black Curtice and antiparasitic cleanse recommended by family member 2. Itching - noting long body - varying places - no rhyme or reason for location. Noting hot showers with some relief. Living in [place] from Jul to Dec then in [facility]. Noting skin with rash along back at times. Noting no oral relief HPI: 87 y/o male with hx of HTN, BPH with LUTS (on Flomax) and IBS-D : FT. VAGINAL . NO complication Breast No sugar in diet. Born in [place] (grains / grass [place]) --> [place] --> [place] ([place], [place]) Toxins - none Elementary: No learning or behavioral issues. Rare tonsil reoccurrence infections. Middle: No recreational activities. HS: No work. Lifestyle and Exposure History: Diet- No gluten / grains (limited). Limiting lectins Meals - Breakfast -Rice chex - fruit. [place] sausage - Lunch - Salad with - Dinner - Beets, squash, fish / beef , eggs (pastured raised) Snack Coconut ice cream Drink - Water with lemon - + daily - Camomile tea. - Limiting coffee - Some juice ([place]) - no soda. Bowel Habits: Varies. [place] Type 5 to 7 (diet shifting?) Supplement? Frequency 3 to 6 times. Minimal mucus. No blood Sleep- 9 hours . Usually rested. Snoring. Onset - < 10 minutes Time Asleep - fragmented. Daytime Napping - sometimes. Exercise- hiking. 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 Tested. No electrolytes added back. Fish consumption Yes Mold Yes - prior home with some flooding with suspicion. Minimal at current home Chemical/Industrial/Pesticides Yes Chemical sensitivities Yes Foreign travel/Frequent airplane travel Yes - food poisoning Supplements: Current Outpatient Medications on File Prior to Visit Medication Sig metoprolol tartrate, short acting, (LOPRESSOR) 50 mg tablet Take 1 tablet by mouth twice daily. milk thistle seed extract 200 mg cap Take by mouth. turmeric (CURCUMIN MISC) selenium 200 mcg tablet Take 1 tablet by mouth once daily. OTC PRODUCT Liver md 2 caps daily OTC PRODUCT Arterial protect one cap dialy GLUTATHIONE ORAL Take by mouth. MAGNESIUM ORAL Take 600 mg by mouth once daily. Glutamine (L-GLUTAMINE) 500 mg cap Take by mouth once daily. ubidecarenone (COQ-10 ORAL) Take 200 mg by mouth once daily. VITAMIN K2 ORAL Take 550 mcg by mouth once daily. triamcinolone acetonide (KENALOG) 0.1 % cream Apply 1 application to affected area twice daily as needed (Avoid use on the face and eyelids). cholecalciferol (VITAMIN D3) 5,000 unit tab Take 1 tablet by mouth once daily. cholestyramine (QUESTRAN) 4 gram packet prn ZINC ORAL Take 50 mg by mouth once daily. TESTOSTERONE, BULK, MISC Cream Aspirin 81 mg tab Take 1 tablet by mouth once daily. Flaxseed Oil 1,000 mg cap Take by mouth. (Patient not taking: Reported on 08/08/2022) OTC PRODUCT digestzymes-- pancreatic enzymes (Patient not taking: Reported on 08/08/2022) tamsulosin (FLOMAX) 0.4 mg Take 1 capsule by mouth once daily. cyanocobalamin/folic ac/vit B6 (HOMOCYSTEINE FORMULA ORAL) Take by mouth once daily. 2 capsules (Patient not taking: Reported on 08/08/2022) Lactobacillus acidophilus (PROBIOTIC ORAL) Take by mouth once daily. (Patient not taking: Reported on 08/08/2022) homeopathic drugs (PROSTATE ORAL) (Patient not taking: Reported on 08/08/2022) CYANOCOBALAMIN, VITAMIN B-12, (VITAMIN B-12 ORAL) Take by mouth once daily. (Patient not taking: Reported on 08/08/2022) Review of Systems Constitutional: Negative for activity change, appetite change, fatigue and fever. HENT: Positive for dental problem. Negative for congestion, sinus pressure, sinus pain and trouble swallowing. Eyes: Positive for visual disturbance (glasses). Respiratory: Negative for shortness of breath. Cardiovascular: Negative for palpitations. Gastrointestinal: Positive for abdominal distention (1 hour after meal 0- use of Gas-X, bowel movement) and diarrhea. Negative for abdominal pain, nausea and vomiting. Genitourinary: Flow - reduced prior to flomax Musculoskeletal: Negative for arthralgias and myalgias. Skin: Positive for rash. Allergic/Immunologic: Positive for food allergies. Negative for environmental allergies. Psychiatric/Behavioral: Negative for hallucinations and sleep disturbance. The patient is not hyperactive. 01/29/24 1335 BP: 123/56 Pulse: 61 Temp: 36.4 C (97.5 F) SpO2: 98% Weight: 65.6 kg (144 lb 9.6 oz) Height: 172.7 cm (5' 8 ) Physical Exam Vitals reviewed. Constitutional: Appearance: Normal appearance. HENT: Head: Normocephalic and atraumatic. Right Ear: Hearing and external ear normal. Left Ear: Hearing and external ear normal. Eyes: General: Lids are normal. Extraocular Movements: Extraocular movements intact. Musculoskeletal: Cervical back: No pain with movement. Neurological: Mental Status: He is alert. Psychiatric: Attention and Perception: Attention and perception normal. Mood and Affect: Mood normal. Speech: Speech normal. Behavior: Behavior normal. Thought Content: Thought content normal. Cognition and Memory: Cognition and memory normal. Judgment: Judgment normal. DIAGNOSIS/ASSESSMENT: K58.0 Irritable bowel syndrome with diarrhea (primary encounter diagnosis) B37.82 Candidal enteritis Histamine Intolerance Evaluation: Dietary Histamines: Suggest assessing the role of dietary histamines in exacerbating his symptoms, especially given the consumption of foods like avocado that are known histamine liberators. JOSSE Supplement: Consider the use of diamine oxidase (JOSSE) supplements to help break down histamines in food, potentially alleviating gastrointestinal symptoms. Stool Analysis: Microbial Micki: Recommend a comprehensive stool analysis to check for adequate levels of commensal bacteria and identify any persistent dysbiosis that could be contributing to his symptoms. Gut Health Support: Depending on the results, tailor interventions to strengthen gut micki and improve overall digestive function. Acid Levels Assessment: Hypochlorhydria Consideration: Explore the possibility of hypochlorhydria (low stomach acid), which could be leading to increased dysbiosis, particularly important given his age and stress factors. Acid Supplementation: If low acid levels are confirmed, suggest supplementation with betaine HCl to enhance digestion and possibly reduce dysbiosis. Follow-Up Tests: Histamine and Tryptase Levels: Plan to monitor plasma values for histamine and tryptase to further investigate potential upregulation, though the effectiveness may be limited due to the short half-life of these markers. Plan Moving Forward: Dietary Management: Encourage maintaining a food diary to closely monitor the impact of specific foods and histamine intake on his symptoms. Nutritional Guidance: Advise working closely with a dietitian to ensure dietary modifications are nutritionally adequate and supportive of gut health. Matrix Nodes ASSIMILIATION: Dysbiosis, Adverse Food Reaction , and Malabsorption GI Effects - Reviewed 10/12/22 Date Aug 2022 Infection Klebsiella 4+ Digestion PE 72 (low) Low fecal protein. Normal fecal fat Beta Glucoronidase 1019 Imbalance Epx - normal. sIgA < 150? Diversity/abundance Zone 2 Commensal bacteria colonies in top 5th% 02/15 high 07/18 (low or <dL) STRUCTURAL INTEGRITY: Cardiomyopathy and Intestinal Permeability (numerous food sensitivities) Aneurysm repair COMMUNICATION: Adrenal Dysfunction , Depression (Neurotransmitter Dysfunction) , and Anxiety (Neurotransmitter Dysfunction) TRANSPORT: Hypertension , Congestive Heart Failure , and Endothelial dysfunction DEFENSE AND REPAIR: Skin rash ENERGY: Fatigue / brain fog DETOXIFICATION: Exposure to heavy metals , Exposure to POP's, Mold Exposure, and Chemical Sensitivity FUNCTIONAL MEDICINE PLAN: Labs - local [facility] facility close to home. Non-fasting. GI effects stool test - stop GI supplements for 7-10 days before collecting your stool (ex:probiotics, betaine HCL, sweetish bitters, saccharomyces, biocidin, herbal antibiotics, GI revive, glutatamine). Digestive enzymes are appropriate to stay on - read the instructions! Schedule a follow up at least 4 to 6 weeks after you submit the kit. We will go over this in the office as the level of detail exceeds use of MyChart for interpretation. Functional Nutrition: after labs - may need to consider removal of histamines. Sleep: Sleep hygeine - no bright lights or phones/laptops/TV an hour before bed. Exercise Prescription: Continue your current exercise as tolerated. Supplement Support Review supplements - Based upon your labs and progress I may further recommend you consider these items to supplement. No orders of the defined types were placed in this encounter. Ordering Supplementation: We recommend ordering supplementation online from the [facility] as they are high quality therapeutic supplements. [facility] offers an easy to use, convenient way to order supplementation recommended by your provider through the [facility]. All of the products offered are considered high-quality, and adhere to specific criteria for quality and effectiveness including good manufacturing practices, use of clean products, free of fillers, binders, and other antigens. In addition, we follow third republican analysis for independent verification of active ingredients. Get started by following three easy steps: A. Visit the following webpage: [email or web address]/ [facility] Statements on this site have not been evaluated by the Food and Drug Administration. B. Create an account: Enter your first name, last name, email address which will be your username Create password Select a referring physician from the dropdown box. If they are not listed, select other If you are a new patient, enter the following provider code: functional C. Order recommended supplementation! Enter the supplement name in the search box Add all supplements to your cart and proceed to checkout. Orders of $100 or more qualify for free shipping. *Please allow 5-7 business days for delivery. For issues with your MRN please call [phone] Stress Management [employer] Neuro -new technology to use a wearable device to retrain brain and focus on nervous system reduction. To learn more of this technology by going to (pgs-ibl-ifvyu) https://PLASTIQ/ Please look into this Heart Rate Variability BioFeedback Tool (www.heartmath.org). You can see the research that has been put into this very valuable tool under the Resources and Research tabs. This can be used as an jason on your smart phone.To use this technology will need to buy a sensor that plugs right into the phone for about $100. First, get one of the Heart Math booklets off [employer] that fits your 'go to' emotion - Transforming Anger, Anxiety, Stress, Depression, or PTSD. Five minutes 3 times a day is more effective than 15 minutes in one sitting. A regular, daily meditation practice of at least 15-20 minutes will change your brain--as well as your genes! Preliminary studies demonstrate gene expression is modified in those who meditate regularly leading to down-regulation of pro-inflammatory genes. This results in reduced inflammation, as well as improvements in the body's response to stress via the hormone cortisol, in the intervention groups vs. the controls. Although more research is needed, these findings suggest a definite role for meditation in the treatment and prevention of chronic inflammatory conditions. Smart phone apps to begin a meditative practice: Headspace (free for first 10 days) Insight Meditation Timer- (Free)-Great all-around jason to use for guided meditations of many different types and lengths or just to use as a tool to time and track your meditation practice. Calm- (Free) Walking Meditations-($1.99)- Get your walk AND meditation done together. A good way to start out for individuals who feel they just can't sit still to begin a meditative practice. Vagal Tone Look at the following work on harnessing the relaxation response by the following providers (you should look at one which appeals to you fully) . --- Polyvagal theory (Richardmanuel Walker) https://www.[employer]/ --- Dynamic Neural Retraining System - (Karlene Lynnper) https://retrainingClinicIQ.[employer]/a adriannaie-hopper/ --- Fournier Program - (Drew Fournier) Https://www.[employer]/ Finding time for self (no multitasking) at this time to dedicate to breathing / relaxation process. Work on cultivating kevin! Future Plans (for provider use): I spent a total of 30 minutes on the date of the service which included preparing to see the patient, [id number] patient care, completing clinical documentation, obtaining and/or reviewing separately obtained history, counseling and educating the patient/family/caregiver, communicating with other HCPs (not separately reported), and independently interpreting results (not separately reported). Kathy uHggins MD documented in this encounter [facility] 2024 Instructions Kevin Bhagat APRN.CNP - 2024 4:49 PM EDT Hold you dose of amlodipine if Blood Pressure is less than 110/60 documented in this encounter [facility] 2024 Note HNO ID: [id number] Author: KEVIN BHAGAT APRN.CNP Service: ? Author Type: Nurse Practitioner Type: Progress Notes Filed: 2024 16:59 Note Text: CC: Patient presents with: Recheck: Bp follow up HPI Sergo Rosas is a 88 year old male who presents today for blood pressure. Was told by insurance to come in as he had a few BP readings of 100s/low 50s but not typically. Also was asymptomatic with these readings but does not remember what time of day they were taken. HTN: Mr. Rosas indicates that he is feeling well and denies any symptoms referable to elevated blood pressure. Specifically denies headache, chest pain, palpitations, dyspnea, and peripheral edema. Patient denies any side effects of his medication(s) and is compliant with their regimen. He does check BP's away from this office with average BP's in the 110s-120s/60s range. Sergo hikes often and walks without difficulty. He watches his diet for sodium, low fat and low cholesterol most of the time. Last 3 Encounter BP Readings: Date: BP: 2024 132/66 2024 130/57 10/02/2023 124/62 Has been on a testosterone cream for low testosterone as ordered by an [place] provider for the past 4-5 years. Sold their house in [place] so not going to be seeing this provider anymore. Sees Dr. Mackey in [place]. Last seen over a year ago. REVIEW OF SYSTEMS See HPI PAST MEDICAL HISTORY Diagnosis Date Abdominal aortic aneurysm without rupture (HCC) 03/11/[address] Singh Benign prostatic hyperplasia with urinary hesitancy 12/13/2019 Had 10h of urinary retention, Voided x2 since chang removed but small volume Begun on flomax 12/11 Obtain postvoid residual to ensure no overflow incontinence Bilateral carotid artery stenosis 08/20/2018 Celiac disease 08/31/2010 Disorders of bursae and tendons in shoulder region, unspecified 09/08/2013 Diverticulosis of large intestine Elevated hemoglobin A1c 02/10/2021 Hypertension, essential 02/02/2018 Internal hemorrhoids without mention of complication 05/05/2008 Mixed hyperlipidemia 11/30/2010 Peripheral vascular disease (HCC) 02/25/2016 Stage 3a chronic kidney disease (HCC) 02/10/2021 Stroke, Ischemic - Right Parietal, Right Temporal-Occipital, Middle Cerebral Peduncle AND Right Cerebellar 03/2023 Synovial cyst of right popliteal space 02/14/2022 Vitamin D deficiency 04/06/2009 PAST SURGICAL HISTORY Procedure Laterality Date ABD AORTA ANEURYSM REPAIR 11/2019 COLONOSCOPY FLX DX W/COLLJ SPEC WHEN PFRMD 03/23/2004 Colonoscopy COLONOSCOPY FLX DX W/COLLJ SPEC WHEN PFRMD 05/05/2008 Colonoscopy, repeat 10 yrs PAST SURGICAL HISTORY OF 04/14/2004 excision of lesion neck PAST SURGICAL HISTORY OF 02/21/1992 lesion removed from rectum ALLERGIES Gluten MEDICATIONS metoprolol tartrate, short acting, (LOPRESSOR) 50 mg tabletTake 1 tablet by mouth two times a day.Disp: 180 tabletRfl: 3 amLODIPine (NORVASC) 5 mg tabletTake 1 tablet in the AM and 1/2 tablet in the PM.Disp: 135 tabletRfl: 3 atorvastatin (LIPITOR) 40 mg tabletTake 1 tablet by mouth daily at bedtime.Disp: 90 tabletRfl: 3 clopidogrel (PLAVIX) 75 mg tabletTake 1 tablet by mouth once daily.Disp: 30 tabletRfl: 11 tamsulosin (FLOMAX) 0.4 mgTake 1 capsule by mouth once daily.Disp: 90 capsuleRfl: 3 hydrocortisone 2.5 % ointmentApply to itchy areas once dailyDisp: 454 gRfl: 1 MEDICATION, NON-DATABASEAlgae CalDisp: Rfl: Oil of Oregano [address] ([employer])Take 1 softgel daily, with meals.Disp: Rfl: Saccharomyces Boulardii 60 ct[address] (Klaire/Prothera)Take 1 capsule by mouth two times a day with meals.Disp: Rfl: COQ10, UBIQUINOL, ORALTake by mouth.Disp: Rfl: magnesium chloride (MAG64) [address] tabletTAKE 2 TABLETS BY MOUTH EVERY DAYDisp: 60 tabletRfl: 3 (Patient not taking: Reported on 2024) Yeast Formula ([employer])Take 2 enteric-coated softgels between meals twice dailyDisp: 90 capsuleRfl: testosterone 100 mg/ml cream (CPD)Apply 0.5 mL to affected area once daily.Disp: Rfl: cholecalciferol (VITAMIN D3) 5,000 unit tabTake 1 tablet by mouth once daily.Disp: Rfl: FAMILY HISTORY Problem Relation Age of Onset Stroke Father other (lupus) Sister Diabetes Brother Diabetes Brother Social History Tobacco Use Smoking status: Never Smokeless tobacco: Never Substance Use Topics Alcohol use: No Drug use: Never PHYSICAL EXAM BP 132/66 Pulse (!) 56 Resp 16 Wt 65.3 kg (144 lb) SpO2 96% BMI 21.90 kg/m? General Appearance: well appearing, in no acute distress, alert Eyes: PERRLA, EOM's intact, conjunctiva pink and moist, no icterus, sclera white, non-injected Lungs: Lungs clear to auscultation. No wheezing, rhonchi, rales. Heart: RRR without murmur, gallop, or rubs. No ectopy Health maintenance reviewed with patient: Behavioral Health Screening Never done Shingrix Vaccine(1 of 2) due on 06/26/2024 RSV Vaccine(1 - 1-dose 60+ series) due (more content not included)... [facility] 2024 History of Presen t illness Narrative CC: Patient presents with: Recheck: Bp follow up HPI Sergo Rosas is a 88 year old male who presents today for blood pressure. Was told by insurance to come in as he had a few BP readings of 100s/low 50s but not typically. Also was asymptomatic with these readings but does not remember what time of day they were taken. HTN: Mr. Rosas indicates that he is feeling well and denies any symptoms referable to elevated blood pressure. Specifically denies headache, chest pain, palpitations, dyspnea, and peripheral edema. Patient denies any side effects of his medication(s) and is compliant with their regimen. He does check BP's away from this office with average BP's in the 110s-120s/60s range. Sergo hikes often and walks without difficulty. He watches his diet for sodium, low fat and low cholesterol most of the time. Last 3 Encounter BP Readings: Date: BP: 2024 132/66 2024 130/57 10/02/2023 124/62 Has been on a testosterone cream for low testosterone as ordered by an [place] provider for the past 4-5 years. Sold their house in [place] so not going to be seeing this provider anymore. Sees Dr. Mackey in [place]. Last seen over a year ago. REVIEW OF SYSTEMS See HPI PAST MEDICAL HISTORY Diagnosis Date Abdominal aortic aneurysm without rupture (HCC) 03/11/[address] [place] Benign prostatic hyperplasia with urinary hesitancy 12/13/2019 Had 10h of urinary retention, Voided x2 since chang removed but small volume Begun on flomax 12/11 Obtain postvoid residual to ensure no overflow incontinence Bilateral carotid artery stenosis 08/20/2018 Celiac disease 08/31/2010 Disorders of bursae and tendons in shoulder region, unspecified 09/08/2013 Diverticulosis of large intestine Elevated hemoglobin A1c 02/10/2021 Hypertension, essential 02/02/2018 Internal hemorrhoids without mention of complication 05/05/2008 Mixed hyperlipidemia 11/30/2010 Peripheral vascular disease (HCC) 02/25/2016 Stage 3a chronic kidney disease (HCC) 02/10/2021 Stroke, Ischemic - Right Parietal, Right Temporal-Occipital, Middle Cerebral Peduncle & Right Cerebellar 03/2023 Synovial cyst of right popliteal space 02/14/2022 Vitamin D deficiency 04/06/2009 PAST SURGICAL HISTORY Procedure Laterality Date ABD AORTA ANEURYSM REPAIR 11/2019 COLONOSCOPY FLX DX W/COLLJ SPEC WHEN PFRMD 03/23/2004 Colonoscopy COLONOSCOPY FLX DX W/COLLJ SPEC WHEN PFRMD 05/05/2008 Colonoscopy, repeat 10 yrs PAST SURGICAL HISTORY OF 04/14/2004 excision of lesion neck PAST SURGICAL HISTORY OF 02/21/1992 lesion removed from rectum ALLERGIES Gluten MEDICATIONS metoprolol tartrate, short acting, (LOPRESSOR) 50 mg tablet^Take 1 tablet by mouth two times a day.^Disp: 180 tablet^Rfl: 3 amLODIPine (NORVASC) 5 mg tablet^Take 1 tablet in the AM and 1/2 tablet in the PM.^Disp: 135 tablet^Rfl: 3 atorvastatin (LIPITOR) 40 mg tablet^Take 1 tablet by mouth daily at bedtime.^Disp: 90 tablet^Rfl: 3 clopidogrel (PLAVIX) 75 mg tablet^Take 1 tablet by mouth once daily.^Disp: 30 tablet^Rfl: 11 tamsulosin (FLOMAX) 0.4 mg^Take 1 capsule by mouth once daily.^Disp: 90 capsule^Rfl: 3 hydrocortisone 2.5 % ointment^Apply to itchy areas once daily^Disp: 454 g^Rfl: 1 MEDICATION, NON-DATABASE^Algae Jared^Disp: ^Rfl: Oil of Oregano [address] (Manta for [employer])^Take 1 softgel daily, with meals.^Disp: ^Rfl: Saccharomyces Boulardii 60 ct[address] (Klaire/Prothera)^Take 1 capsule by mouth two times a day with meals.^Disp: ^Rfl: COQ10, UBIQUINOL, ORAL^Take by mouth.^Disp: ^Rfl: magnesium chloride (MAG64) [address] tablet^TAKE 2 TABLETS BY MOUTH EVERY DAY^Disp: 60 tablet^Rfl: 3 (Patient not taking: Reported on 2024) Yeast Formula ([employer])^Take 2 enteric-coated softgels between meals twice daily^Disp: 90 capsule^Rfl: testosterone 100 mg/ml cream (CPD)^Apply 0.5 mL to affected area once daily.^Disp: ^Rfl: cholecalciferol (VITAMIN D3) 5,000 unit tab^Take 1 tablet by mouth once daily.^Disp: ^Rfl: FAMILY HISTORY Problem Relation Age of Onset Stroke Father other (lupus) Sister Diabetes Brother Diabetes Brother Social History Tobacco Use Smoking status: Never Smokeless tobacco: Never Substance Use Topics Alcohol use: No Drug use: Never PHYSICAL EXAM BP 132/66 Pulse (!) 56 Resp 16 Wt 65.3 kg (144 lb) SpO2 96% BMI 21.90 kg/m General Appearance: well appearing, in no acute distress, alert Eyes: PERRLA, EOM's intact, conjunctiva pink and moist, no icterus, sclera white, non-injected Lungs: Lungs clear to auscultation. No wheezing, rhonchi, rales. Heart: RRR without murmur, gallop, or rubs. No ectopy Health maintenance reviewed with patient: Behavioral Health Screening Never done Shingrix Vaccine(1 of 2) due on 06/26/2024 RSV Vaccine(1 - 1-dose 60+ series) due on 10/02/2024 DTaP,Tdap,Td Vaccine(4 - Tdap) due on 04/04/2026 Diabetes Screening due on 09/08/2026 Influenza Vaccine Completed Advance Directive Discussion Completed Pneumococcal Vaccine: 65+ Completed Covid-19 Vaccine Discontinued DATA REVIEWED: No new labs ASSESSMENT/PLAN: 1. Hypertension, essential - ICD9: 401.9, ICD10: I10 (primary diagnosis) - Controlled - Continue current medications but monitor prior to taking bp meds and hold amlodipine if less than 110/50. Keep upcoming appointment and we will review further then - Recommend home blood pressure monitoring, to bring results to next visit - Encouraged sodium restriction, DASH or Mediterranean diet - Recommend regular aerobic exercise 2. Low testosterone - ICD9: 790.99, ICD10: R79.89 Need to get records to see what last levels were and correct dosing. Gets from an apothecary so patient unsure on exact dosing. Prescription instructions reviewed with patient as applicable. Potential red flag symptoms discussed with the patient. Reviewed appropriate action plan to take if red flag symptoms occur. Patient agreeable to treatment plan. Kevin Bhagat APRN.CNP documented in this encounter [facility] 2024 History of Presen t illness Narrative Images from the original note were not included. [facility] [place] [facility] Department of Cardiovascular Medicine OUTPATIENT VISIT DATE 2024 OUTPATIENT VISIT TYPE ESTABLISHED PRIMARY CARE PHYSICIAN: Kezia Dubose MD [id number] [facility] [id number] CHIEF COMPLAINT: Patient presents with: Cardiology Follow Up HISTORY OF PRESENT ILLNESS: Sergo Rosas is a 88 year old male. Patient has a history of moderate to severe aortic insufficiency, abdominal aortic aneurysm status post repair, essential hypertension and multiple other medical problems. 03/02/23 The patient presents today as a consult regarding aortic insufficiency. He is currently denying any significant chest discomfort or unusual shortness of breath. He denies any palpitations, syncopal or near syncopal episodes. He denies any edema, orthopnea or PND. He has apparently not been followed by cardiology for his valvular disease. He does have significant peripheral arterial disease involving the abdominal aorta and carotids. He sees vascular for that. He does not report that his blood pressures have been somewhat elevated recently. They continue to be elevated here today. His heart rate is generally in the 50s. He is on metoprolol. 06/23/2023 Patient presents today for a follow-up visit. He suffered a stroke in March of this year. He was admitted to [facility]. 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 There was no arrhythmia identified. He was placed on both aspirin and Plavix for some time. Then his aspirin was discontinued. He has been continued on Plavix since then. He has had no further episodes. His episode consisted of left-sided weakness. He denies any palpitations around the time of the event. Since then he has had some swelling of his left lower extremity and none on the right. An echocardiogram done at that time revealed normal right and left ventricular systolic function with moderate aortic insufficiency. The patient had a 14-day monitor done as an outpatient. I am unable to find the results. We will contact [facility] for the results of the monitor. He states that he was not called with any results. He has been doing relatively well. With the help of physical therapy, he has made a good recovery. He currently denies any cardiac symptoms. 2024 Patient presents today for a follow-up visit. He is doing well. We have reviewed his monitor. There was no evidence of atrial fibrillation. The patient denies any chest pain, shortness of breath or dyspnea on exertion. The patient denies any palpitations, syncopal or near syncopal episodes. The patient denies any edema, orthopnea or paroxysmal nocturnal dyspnea. The patient has been compliant with medications. He has had no further stroke symptoms. His blood pressure is good today. PAST MEDICAL HISTORY Diagnosis Date Abdominal aortic aneurysm without rupture (HCC) 03/11/[address] Singh Benign prostatic hyperplasia with urinary hesitancy 12/13/2019 Had 10h of urinary retention, Voided x2 since chang removed but small volume Begun on flomax 12/11 Obtain postvoid residual to ensure no overflow incontinence Bilateral carotid artery stenosis 08/20/2018 Celiac disease 08/31/2010 Disorders of bursae and tendons in shoulder region, unspecified 09/08/2013 Diverticulosis of large intestine Elevated hemoglobin A1c 02/10/2021 Hypertension, essential 02/02/2018 Internal hemorrhoids without mention of complication 05/05/2008 Mixed hyperlipidemia 11/30/2010 Peripheral vascular disease (HCC) 02/25/2016 Stage 3a chronic kidney disease (HCC) 02/10/2021 Stroke, Ischemic - Right Parietal, Right Temporal-Occipital, Middle Cerebral Peduncle & Right Cerebellar 03/2023 Synovial cyst of right popliteal space 02/14/2022 Vitamin D deficiency 04/06/2009 PAST SURGICAL HISTORY Procedure Laterality Date ABD AORTA ANEURYSM REPAIR 11/2019 COLONOSCOPY FLX DX W/COLLJ SPEC WHEN PFRMD 03/23/2004 Colonoscopy COLONOSCOPY FLX DX W/COLLJ SPEC WHEN PFRMD 05/05/2008 Colonoscopy, repeat 10 yrs PAST SURGICAL HISTORY OF 04/14/2004 excision of lesion neck PAST SURGICAL HISTORY OF 02/21/1992 lesion removed from rectum Social History Tobacco Use Smoking status: Never Smokeless tobacco: Never Substance Use Topics Alcohol use: No Drug use: Never FAMILY HISTORY Problem Relation Age of Onset Stroke Father other (lupus) Sister Diabetes Brother Diabetes Brother ALLERGIES: ALLERGIES Allergen Reactions Gluten Diarrhea Upset stomach Gas build up MEDICATIONS: hydrocortisone 2.5 % ointment^Apply to itchy areas once daily^Disp: 454 g^Rfl: 1 COQ10, UBIQUINOL, ORAL^Take by mouth.^Disp: ^Rfl: amLODIPine (NORVASC) 5 mg tablet^Take 1 tablet in the AM and 1/2 tablet in the PM.^Disp: 135 tablet^Rfl: 3 atorvastatin (LIPITOR) 40 mg tablet^Take 1 tablet by mouth daily at bedtime.^Disp: 90 tablet^Rfl: 3 clopidogrel (PLAVIX) 75 mg tablet^Take 1 tablet by mouth once daily.^Disp: 30 tablet^Rfl: 11 cholecalciferol (VITAMIN D3) 5,000 unit tab^Take 1 tablet by mouth once daily.^Disp: ^Rfl: metoprolol tartrate, short acting, (LOPRESSOR) 50 mg tablet^Take 1 tablet by mouth two times a day.^Disp: 180 tablet^Rfl: 3 MEDICATION, NON-DATABASE^Algae Jared^Disp: ^Rfl: Oil of Oregano [address] (Manta for [employer])^Take 1 softgel daily, with meals.^Disp: ^Rfl: Saccharomyces Boulardii [address] ct[address] (Klaire/Prothera)^Take 1 capsule by mouth two times a day with meals.^Disp: ^Rfl: magnesium chloride (MAG64) [address] tablet^TAKE 2 TABLETS BY MOUTH EVERY DAY^Disp: 60 tablet^Rfl: 3 (Patient not taking: Reported on 2024) Yeast Formula ([employer])^Take 2 enteric-coated softgels between meals twice daily^Disp: 90 capsule^Rfl: testosterone 100 mg/ml cream (CPD)^Apply 0.5 mL to affected area once daily.^Disp: ^Rfl: tamsulosin (FLOMAX) 0.4 mg^Take 1 capsule by mouth once daily.^Disp: 90 capsule^Rfl: 3 REVIEW OF SYSTEMS: A complete review of systems was obtained and is remarkable for that noted above. The remaining systems are unremarkable. I personally interviewed, confirmed and edited the above information if obtained by others. PHYSICAL EXAMINATION: BP 130/57 (BP Site: Left Arm, BP Position: Sitting, BP Cuff Size: Regular Adult) Pulse (!) 54 Wt 65.2 kg (143 lb 11.8 oz) BMI 21.86 kg/m General: Well appearing, in no acute distress. Eyes: Conjunctiva normal, sclera normal. Neck: No jugular venous distention, no palpable thyromegaly. Heart: Regular rhythm, S1, S2 normal, no S3, no S4. Grade I/IV diastolic murmur left sternal border will check echocardiogram 1 week prior to next visit.. No carotid bruits. Respiratory: Clear to auscultation bilaterally. Good respiratory effort. GI: Soft, nontender, bowel sounds normal, no palpable hepatosplenomegaly. Extremities: Normal pulses in distal lower extremities. Trace left lower extremity edema. No edema on the right. Neuro: Alert, cooperative with no focal deficit. Psych: Pleasant and cooperative. Skin: No rashes or wounds. CARDIOVASCULAR MEDICINE TESTING: LV Ejection Fraction (%) Date Value 04/03/2023 72 12/05/2019 63 Last ECHO Result Conclusion ECHO Collected: 04/03/2023 1:11 PM (Final result) Impression: CONCLUSIONS: - Exam indication: Stroke - The left ventricle is normal in size. There is moderate concentric left ventricular hypertrophy. Left ventricular systolic function is hyperdynamic. EF = 72 5% (2D biplane) Left ventricular diastolic function was not evaluated due to >2+ AI. - The right ventricle is normal in size. Right ventricular systolic function is normal. - There is moderate (2+) aortic valve regurgitation. No PFO on bubble contrast injection - Exam was compared with the prior echocardiographic exam performed on 05/13/21. * * * Final * * * Last EKG Result Conclusion ECG COMPLETE Collected: 03/02/2023 2:07 PM (Final result) Impression: SINUS BRADYCARDIA NONSPECIFIC ST ABNORMALITY ABNORMAL ECG Confirmed by WALTER NUÑEZ M.D. ([id number]) on 03/02/2023 4:55:08 PM LABS: Sodium Date Value 09/08/2023 140 mmol/L 05/05/2023 137 mmol/L 05/14/2021 139 MMOL/L 05/13/2021 138 MMOL/L Potassium Date Value 09/08/2023 4.2 mmol/L 05/05/2023 4.6 mmol/L 05/14/2021 3.8 MMOL/L 05/13/2021 3.9 MMOL/L BUN Date Value 09/08/2023 21 mg/dL 05/05/2023 21 mg/dL 04/05/2023 31 mg/dL 04/02/2023 17 mg/dL 05/14/2021 21 MG/DL 05/13/2021 28 MG/DL 05/12/2021 39 MG/DL 05/11/2021 33 MG/DL Creatinine Date Value 09/08/2023 1.34 mg/dL 05/05/2023 1.33 mg/dL 04/05/2023 1.27 mg/dL 04/02/2023 1.11 mg/dL 05/14/2021 1.20 MG/DL 05/13/2021 1.25 MG/DL 05/12/2021 1.71 MG/DL 05/11/2021 1.76 MG/DL Creatinine (POCT) (mg/dL) Date Value 02/13/2023 1.40 Magnesium Date Value 04/01/2023 1.9 mg/dL 05/13/2021 2.0 MG/DL 05/12/2021 1.5 MG/DL Hemoglobin Date Value 09/08/2023 12.7 g/dL 04/05/2023 12.7 g/dL 05/14/2021 10.7 G/DL 05/13/2021 13.1 G/DL No results found for: PROBNP No results found for: HSTNT Cholesterol, Total (mg/dL) Date Value 04/01/2023 146 02/21/2019 139 Total Cholesterol, Nonfasting (mg/dL) Date Value 02/10/2021 129 HDL Cholesterol (mg/dL) Date Value 04/01/2023 40 02/21/2019 32 HDL Cholesterol, Nonfasting (mg/dL) Date Value 02/10/2021 29 Triglyceride (mg/dL) Date Value 04/01/2023 50 02/21/2019 57 Triglycerides, Nonfasting (mg/dL) Date Value 02/10/2021 66 LDL Cholesterol (mg/dL) Date Value 04/01/2023 96 02/21/2019 96 LDL Cholesterol, Nonfasting (mg/dL) Date Value 02/10/2021 87 TSH Date Value 08/08/2022 2.950 mIU/L 11/30/2017 3.19 IU/ml 02/25/2016 2.390 uU/mL Event Monitor 04/25/2024-05/08/2024 ECG 04/22/2023 US Carotid Bilat 02/14/2022 IMPRESSION Compared to prior study of 08/20/2018, no significant change. RIGHT SIDE Common carotid artery: Plaque visualized without evidence of hemodynamically significant stenosis. Internal carotid artery: 20-39% stenosis. Vertebral artery: Patent and antegrade flow noted. LEFT SIDE Common carotid artery: Plaque visualized without evidence of hemodynamically significant stenosis. Internal carotid artery: 20-39% stenosis. Vertebral artery: Patent and antegrade flow noted. ECG 03/02/2023: Sinus bradycardia, 57 bpm, nonspecific ST changes. Echo 05/13/2021: Interpretation Summary 1. Moderate to severe LVH with basal septal hypertrophy of 1.7 cm. 2. Normal LV systolic function with EF around 55 to 60% 3. Grade 2 diastolic dysfunction 4. Moderate to severe AI 5. Mild MR and TR 6. Mild to moderate PI 7. Moderate MAC 8. Mild left atrial dilatation. IMPRESSION: 1. Nonrheumatic aortic valve insufficiency, moderate to severe, LVEF 55 to 60%, LVEDD 50 mm. - ICD9: 424.1, ICD10: I35.1 (primary diagnosis), moderate aortic insufficiency on echo March 2023. Stable. Will check echocardiogram 1 week prior to next visit. 2. Hypertension, essential - ICD9: 401.9, ICD10: I10, fair blood pressure control. Continue amlodipine and metoprolol. 3. Mixed hyperlipidemia - ICD9: 272.2, ICD10: E78.2, on cholestyramine as needed. Low-cholesterol, low-fat diet. 4. Peripheral vascular disease (HCC) - ICD9: 443.9, ICD10: I73.9, involving carotids and abdominal aortic aneurysm, status post aneurysm repair, care per vascular. 5. CVA, uncertain etiology. Now on Plavix daily. No evidence of atrial fibrillation on monitor. PLAN: Clopidogrel 75 mg daily. Amlodipine 5 mg 1 every morning and 1/2 tablet every afternoon. Metoprolol SA 50 mg twice daily. Atorvastatin 40 mg nightly. Continue current medications. Echocardiogram 1 week prior to next visit. We will discuss results at that visit. Low cholesterol, low fat diet, Mediterranean type diet. Regular aerobic exercise as able. Monitor for any new symptoms. Follow up with us in 6 months or sooner if necessary. A copy of this note will be provided to the primary physician by way of shared medical record or via U.S. Mail. Thank you for allowing us to participate in the care of this very pleasant patient. Please free to contact us if we can be of any further assistance. Walter Nuñez MD, [facility] Department of Cardiovascular Medicine [facility] [place] [id number] Medical Decision Making: Problems: Moderate: 2+ stable chronic illnesses Data: Unique test result(s) reviewed: 2 Unique test(s) ordered: 1 Risk: Moderate: Moderate risk from testing/treatment Medical Decision Making Level: 4 - Moderate documented in this encounter [facility] 2024 Note HNO ID: [id number] Author: WALTER NUÑEZ MD Service: ? Author Type: Physician Type: Progress Notes Filed: 2024 11:44 Note Text: [facility] [place] [facility] Department of Cardiovascular Medicine OUTPATIENT VISIT DATE 2024 OUTPATIENT VISIT TYPE ESTABLISHED PRIMARY CARE PHYSICIAN: Kezia Dubose MD [id number] [facility] [id number] CHIEF COMPLAINT: Patient presents with: Cardiology Follow Up HISTORY OF PRESENT ILLNESS: Sergo Rosas is a 88 year old male. Patient has a history of moderate to severe aortic insufficiency, abdominal aortic aneurysm status post repair, essential hypertension and multiple other medical problems. 03/02/23 The patient presents today as a consult regarding aortic insufficiency. He is currently denying any significant chest discomfort or unusual shortness of breath. He denies any palpitations, syncopal or near syncopal episodes. He denies any edema, orthopnea or PND. He has apparently not been followed by cardiology for his valvular disease. He does have significant peripheral arterial disease involving the abdominal aorta and carotids. He sees vascular for that. He does not report that his blood pressures have been somewhat elevated recently. They continue to be elevated here today. His heart rate is generally in the 50s. He is on metoprolol. 06/23/2023 Patient presents today for a follow-up visit. He suffered a stroke in March of this year. He was admitted to [facility]. 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 There was no arrhythmia identified. He was placed on both aspirin and Plavix for some time. Then his aspirin was discontinued. He has been continued on Plavix since then. He has had no further episodes. His episode consisted of left-sided weakness. He denies any palpitations around the time of the event. Since then he has had some swelling of his left lower extremity and none on the right. An echocardiogram done at that time revealed normal right and left ventricular systolic function with moderate aortic insufficiency. The patient had a 14-day monitor done as an outpatient. I am unable to find the results. We will contact [facility] for the results of the monitor. He states that he was not called with any results. He has been doing relatively well. With the help of physical therapy, he has made a good recovery. He currently denies any cardiac symptoms. 2024 Patient presents today for a follow-up visit. He is doing well. We have reviewed his monitor. There was no evidence of atrial fibrillation. The patient denies any chest pain, shortness of breath or dyspnea on exertion. The patient denies any palpitations, syncopal or near syncopal episodes. The patient denies any edema, orthopnea or paroxysmal nocturnal dyspnea. The patient has been compliant with medications. He has had no further stroke symptoms. His blood pressure is good today. PAST MEDICAL HISTORY Diagnosis Date Abdominal aortic aneurysm without rupture (HCC) 03/11/[address] Singh Benign prostatic hyperplasia with urinary hesitancy 12/13/2019 Had 10h of urinary retention, Voided x2 since chang removed but small volume Begun on flomax 12/11 Obtain postvoid residual to ensure no overflow incontinence Bilateral carotid artery stenosis 08/20/2018 Celiac disease 08/31/2010 Disorders of bursae and tendons in shoulder region, unspecified 09/08/2013 Diverticulosis of large intestine Elevated hemoglobin A1c 02/10/2021 Hypertension, essential 02/02/2018 Internal hemorrhoids without mention of complication 05/05/2008 Mixed hyperlipidemia 11/30/2010 Peripheral vascular disease (HCC) 02/25/2016 Stage 3a chronic kidney disease (HCC) 02/10/2021 Stroke, Ischemic - Right Parietal, Right Temporal-Occipital, Middle Cerebral Peduncle AND Right Cerebellar 03/2023 Synovial cyst of right popliteal space 02/14/2022 Vitamin D deficiency 04/06/2009 PAST SURGICAL HISTORY Procedure Laterality Date ABD AORTA ANEURYSM REPAIR 11/2019 COLONOSCOPY FLX DX W/COLLJ SPEC WHEN PFRMD 03/23/2004 Colonoscopy COLONOSCOPY FLX DX W/COLLJ SPEC WHEN PFRMD 05/05/2008 Colonoscopy, repeat 10 yrs PAST SURGICAL HISTORY OF 04/14/2004 excision of lesion neck PAST SURGICAL HISTORY OF 02/21/1992 lesion removed from rectum Social History Tobacco Use Smoking status: Never Smokeless tobacco: Never Substance Use Topics Alcohol use: No Drug use: Never FAMILY HISTORY Problem Relation Age of Onset Stroke Father other (lupus) Sister Diabetes Brother Diabetes Brother ALLERGIES: ALLERGIES Allergen Reactions Gluten Diarrhea Upset stomach Gas build up MEDICATIONS: hydrocortisone 2.5 % ointmentApply to itchy areas once dailyDisp: 454 gRfl: 1 COQ10, UBIQUINOL, ORALTake by mouth.Disp: Rfl: amLODIPine (NORVASC) 5 mg tabletTake 1 tablet in the AM and 1/2 tablet in th (more content not included)... [facility] 01-23-2024 Note HNO ID: [id number] Author: LESA HOLLOWAY MA Service: ? Author Type: Travelift Operator Type: Progress Notes Filed: 01/23/2024 12:18 Note Text: POPULATION HEALTH NAVIGATION OUTREACH Action/FYI Spoke to patient and appointment scheduled. Reason for Outreach Community Monitoring/Network Navigator [employer] AND Phone Line: CDM Patient Contacted: Spoke to patient/parent/or legal guardian Patient identified by name and : Yes Community Monitoring/Network Navigator [employer] Phone Line actions taken: Patient scheduled: Follow-Up Appointment 2024 in [facility] with WALTER NUÑEZ - follow up 2024 in [facility] with OLDERKEVIN - blood pressure check AND medication review 01/29/2024 in [facility] with KATHY HUGGINS - 4 MONTH FOLLOW UP 02/[facility]24 [facility] with VERNELL MARTINEZ - 6 month follow up stroke [facility] KEVIN - 6 month follow up, [facility] Signature: Lesa Holloway MA January 23, 2024 12:[address] [facility] 01-23-2024 History of Presen t illness Narrative POPULATION HEALTH NAVIGATION OUTREACH Action/FYI Spoke to patient and appointment scheduled. Reason for Outreach Community Monitoring/Network Navigator Pools & Phone Line: CDM Patient Contacted: Spoke to patient/parent/or legal guardian Patient identified by name and : Yes Community Monitoring/Network Navigator Pools & Phone Line actions taken: Patient scheduled: Follow-Up Appointment 2024 in [facility] with WALTER NUÑEZ - follow up 2024 in [facility] with KEVIN BHAGAT - blood pressure check & medication review 01/29/2024 [facility] KATHY HUGGINS - 4 MONTH FOLLOW UP 02/06/2024 [facility] with VERNELL MARTINEZ - 6 month follow up stroke 04/01/[facility]LD[facility], KEVIN - 6 month follow up, [facility] Signature: Lesa Holloway MA January 23, 2024 12:18 PM CDM Telephonic Outreach Provider Action/FYI Navigation Team Follow Up Actions -Please call patient to schedule PCP/CABLE MACHINE OPERATOR/PAC/Colleague visit within 7-10 days for blood pressure check & medication review -Please remind patient to bring his blood pressure monitor to the visit Contacted for: Routine Telephonic Outreach Contact made with patient: Yes Patient identified by name and date of . Discussed care with patient - Wild Needle message sent Are you experiencing any new or worsening symptoms you need to talk about today? No Disease Specific Do you check your blood pressure at home? Yes, Enter readings: Occasionally - WNL for patient -Patient stated his blood pressure is improving -Concerned he may be on too much medication Do you have new or worsening shortness of breath with activity? No Do you feel like you are dehydrated for any reason, including not being able to eat or drink normally, or having less urine/much darker urine than normal for you? Yes -occasionally -Knows to drink more when urine darker Do you check your daily weight at home? Yes, 141 pounds Have you noticed a sudden gain in weight greater than three pounds in a day or five pounds in a week? No Based on scuba instructor, the following disposition is advised: No symptoms or symptoms present, not severe. Routed to: Navigation Team: PCP visit within 7 days for blood pressure check & to review blood pressure medications VILMA Education Provided this Outreach: No Denies needs at this time Provided Appointment Center Number via Wild Needle Reminded patient to call office of PCP with questions or concerns India Woodson RN January 23, 2024 11:30 AM [facility] Telephonic Outreach Provider Action/FYJacki Contacted for: Routine Telephonic Outreach Contact made with patient: No, unable to leave message on home phone - VM has not been set up Will reattempt call India Woodson RN January 23, 2024 11:25 AM documented in this encounter [facility] 01-23-2024 Note HNO ID: [id number] Author: INDIA WOODSON RN Service: ? Author Type: Registered Nurse Type: Progress Notes Filed: 01/23/2024 11:50 Note Text: CDM Telephonic Outreach Provider Action/FYI Navigation Team Follow Up Actions -Please call patient to schedule PCP/CABLE MACHINE OPERATOR/PAC/Colleague visit within 7-10 days for blood pressure check AND medication review -Please remind patient to bring his blood pressure monitor to the visit Contacted for: Routine Telephonic Outreach Contact made with patient: Yes Patient identified by name and date of . Discussed care with patient - AgentBridget message sent Are you experiencing any new or worsening symptoms you need to talk about today? No Disease Specific Do you check your blood pressure at home? Yes, Enter readings: Occasionally - WNL for patient -Patient stated his blood pressure is improving -Concerned he may be on too much medication Do you have new or worsening shortness of breath with activity? No Do you feel like you are dehydrated for any reason, including not being able to eat or drink normally, or having less urine/much darker urine than normal for you? Yes -occasionally -Knows to drink more when urine darker Do you check your daily weight at home? Yes, 141 pounds Have you noticed a sudden gain in weight greater than three pounds in a day or five pounds in a week? No Based on scuba instructor, the following disposition is advised: No symptoms or symptoms present, not severe. Routed to: Navigation Team: PCP visit within 7 days for blood pressure check AND to review blood pressure medications VILMA Education Provided this Outreach: No Denies needs at this time Provided Appointment Center Number via Wild Needle Reminded patient to call office of PCP with questions or concerns India Woodson RN January 23, 2024 11:30 AM [facility] Telephonic Outreach Provider Action/FYI Contacted for: Routine Telephonic Outreach Contact made with patient: No, unable to leave message on home phone - VM has not been set up Will reattempt call India Woodson RN January 23, 2024 11:[address] [facility] 01-23-2024 Note Patient Outreach ([facility] HEADINGS,SERGO Suárez ([id number]) 1935 M Date Time Provider Department 01/23/24 INDIA WOODSON During your visit today, we recorded the following information about you: Weight 64 kg India Woodson, SESAR 01/23/2024 11:50 AM Signed [facility] Telephonic Outreach Provider Bessy/RACHEL Navigation Team Follow Up Actions -Please call patient to schedule PCP/CABLE MACHINE OPERATOR/PAC/Colleague visit within 7-10 days for blood pressure check AND medication review -Please remind patient to bring his blood pressure monitor to the visit Contacted for: Routine Telephonic Outreach Contact made with patient: Yes Patient identified by name and date of . Discussed care with patient - Wild Needle message sent Are you experiencing any new or worsening symptoms you need to talk about today? No Disease Specific Do you check your blood pressure at home? Yes, Enter readings: Occasionally - WNL for patient -Patient stated his blood pressure is improving -Concerned he may be on too much medication Do you have new or worsening shortness of breath with activity? No Do you feel like you are dehydrated for any reason, including not being able to eat or drink normally, or having less urine/much darker urine than normal for you? Yes -occasionally -Knows to drink more when urine darker Do you check your daily weight at home? Yes, 141 pounds Have you noticed a sudden gain in weight greater than three pounds in a day or five pounds in a week? No Based on scuba instructor, the following disposition is advised: No symptoms or symptoms present, not severe. Routed to: Navigation Team: PCP visit within 7 days for blood pressure check AND to review blood pressure medications VILMA Education Provided this Outreach: No Denies needs at this time Provided Appointment Center Number via Wild Needle Reminded patient to call office of PCP with questions or concerns India Woodson RN January 23, 2024 11:30 AM [facility] Telephonic Outreach Provider Bessy/RACHEL Contacted for: Routine Telephonic Outreach Contact made with patient: No, unable to leave message on home phone - VM has not been set up Will reattempt call India Woodson RN January 23, 2024 11:25 AM Lesa Holloway MA 01/23/2024 12:18 PM Signed POPULATION HEALTH NAVIGATION OUTREACH Action/FYI Spoke to patient and appointment scheduled. Reason for Outreach Community Monitoring/Network Navigator Pools AND Phone Line: [facility] Patient Contacted: Spoke to patient/parent/or legal guardian Patient identified by name and : Yes Community Monitoring/Network Navigator Pools AND Phone Line actions taken: Patient scheduled: Follow-Up Appointment 2024 in [facility] with WALTER NUÑEZ - [facility] [address] [facility]EV[facility] BH[facility] - blood pressure check AND medication review 01/29/2024 [facility] with KATHY HUGGINS - 4 MONTH FOLLOW UP 02/06/2024 in [facility] with VERNELL MARTINEZ - 6 month follow up stroke 04/01/2024 in [facility] with KEVIN BHAGAT - 6 month follow up, [facility] Signature: Lesa Holloway MA January 23, 2024 12:18 PM Allergies As of Date: 01/23/2024 Noted Allergy Reaction GLUTEN 09/23/2011 6 - Diarrhea Comments: Upset stomach Gas build up Date Reviewed: 11/07/2023 Reviewed by: Nataliia Wills LPN - Fully Assessed Reason for Visit: Community Monitoring Outreach [Other] Cmt: CDM Telephonic Outreach Prescriptions as of 01/23/2024 - hydrocortisone 2.5 % ointment Apply to itchy areas once daily - metoprolol tartrate, short acting, (LOPRESSOR) 50 mg tablet Take 1 tablet by mouth two times a day. - MEDICATION, NON-DATABASE Algae Jared - Oil of Oregano 150 mg[address] 60 ct[address] (Manta [employer]) Take 1 softgel daily, with meals. - Saccharomyces Boulardii 60 ct. (Klaire/Prothera) Take 1 capsule by mouth two times a day with meals. - COQ10, UBIQUINOL, ORAL Take by mouth. - amLODIPine (NORVASC) 5 mg tablet Take 1 tablet in the AM and 1/2 tablet in the PM. - magnesium chloride (MAG64) [address] tablet TAKE 2 TABLETS BY MOUTH EVERY DAY - Yeast Formula (Integr[employer]) Take 2 enteric-coated softgels between meals twice daily - atorvastatin (LIPITOR) 40 mg tablet Take 1 tablet by mouth daily at bedtime. - testosterone 100 mg/ml cream (CPD) Apply 0.5 mL to affected area once daily. - clopidogrel (PLAVIX) 75 mg tablet Take 1 tablet by mouth once daily. - tamsulosin (FLOMAX) 0.4 mg Take 1 capsule by mouth once daily. - cholecalciferol (VITAMIN D3) 5,000 unit tab Take 1 tablet by mouth once daily. Facility-Administered Medications as of 01/23/2024 - perflutren lipid microspheres 1.3 mL in NaCl (PF) 0.9% 10 mL injection (DEFINITY) - sodium chloride 0.9 % (flush) 10 mL (BD POSIFLUSH) Meds Comments as of 02/01/2021: Magnesium once daily, Maxxum 4 multi-arthur (more content not included)... [facility] 12-26-2023 Note HNO ID: [id number] Author: INDIA WOODSON, SESAR Service: ? Author Type: Registered Nurse Type: Progress Notes Filed: 12/26/2023 12:47 Note Text: [facility] Telephonic Outreach Provider Action/FYI Contacted for: Routine Telephonic Outreach Contact made with patient: Yes Patient identified by name and date of . Discussed care with caregiver and spouse, Betsey Diagnosed with Covid , 12/21/2023 AND confirmed at Urgent Care 12/22/2023 Betsey reports Sergo is improving AND feeling better Is Sergo experiencing any new or worsening symptoms we need to talk about today? No Disease Specific Do you check his blood pressure at home? Yes, Enter readings: Spouse checks occasionally - WNL for patient Does he have new or worsening shortness of breath with activity? No Does he feel like you are dehydrated for any reason, including not being able to eat or drink normally, or having less urine/much darker urine than normal for him? No Does he check his daily weight at home? No Based on scuba instructor, the following disposition is advised: No symptoms or symptoms present, not severe. Routed to: No Action Needed VILMA Education Provided this Outreach: No Denies needs at this time Reminded patient to call office of PCP with questions or concerns India Woodson RN December 26, 2023 12:[address] [facility] 12-26-2023 History of Presen t illness Narrative [facility] Telephonic Outreach Provider Action/FYI Contacted for: Routine Telephonic Outreach Contact made with patient: Yes Patient identified by name and date of . Discussed care with caregiver and spouse, Betsey Diagnosed with Covid , 12/21/2023 & confirmed at Urgent Care 12/22/2023 Betsey reports Sergo is improving & feeling better Is Sergo experiencing any new or worsening symptoms we need to talk about today? No Disease Specific Do you check his blood pressure at home? Yes, Enter readings: Spouse checks occasionally - WNL for patient Does he have new or worsening shortness of breath with activity? No Does he feel like you are dehydrated for any reason, including not being able to eat or drink normally, or having less urine/much darker urine than normal for him? No Does he check his daily weight at home? No Based on scuba instructor, the following disposition is advised: No symptoms or symptoms present, not severe. Routed to: No Action Needed VILMA Education Provided this Outreach: No Denies needs at this time Reminded patient to call office of PCP with questions or concerns India Woodson RN December 26, 2023 12:45 PM documented in this encounter [facility] 12-26-2023 Note Patient Outreach ([facility] HEADINGS,SERGO Suárez ([id number]) 1935 M Date Time Provider Department 12/26/23 [facility] During your visit today, we recorded the following information about you: India Woodson RN 12/26/2023 12:47 PM Signed CDM Telephonic Outreach Provider Action/FYI Contacted for: Routine Telephonic Outreach Contact made with patient: Yes Patient identified by name and date of . Discussed care with caregiver and spouse, Betsey Diagnosed with Covid , 12/21/2023 AND confirmed at Urgent Care 12/22/2023 Betsey reports Sergo is improving AND feeling better Is Sergo experiencing any new or worsening symptoms we need to talk about today? No Disease Specific Do you check his blood pressure at home? Yes, Enter readings: Spouse checks occasionally - WNL for patient Does he have new or worsening shortness of breath with activity? No Does he feel like you are dehydrated for any reason, including not being able to eat or drink normally, or having less urine/much darker urine than normal for him? No Does he check his daily weight at home? No Based on scuba instructor, the following disposition is advised: No symptoms or symptoms present, not severe. Routed to: No Action Needed VILMA Education Provided this Outreach: No Denies needs at this time Reminded patient to call office of PCP with questions or concerns India Woodson RN December 26, 2023 12:45 PM Allergies As of Date: 12/26/2023 Noted Allergy Reaction GLUTEN 09/23/2011 6 - Diarrhea Comments: Upset stomach Gas build up Date Reviewed: 11/07/2023 Reviewed by: Nataliia Wills LPN - Fully Assessed Reason for Visit: Community Monitoring Outreach [Other] Cmt: CDM Telephonic Outreach Prescriptions as of 12/26/2023 - hydrocortisone 2.5 % ointment Apply to itchy areas once daily - metoprolol tartrate, short acting, (LOPRESSOR) 50 mg tablet Take 1 tablet by mouth two times a day. - MEDICATION, NON-DATABASE Algae Jared - Oil of Oregano [address] mg[address] 60 [address] (Manta for [employer]) Take 1 softgel daily, with meals. - Saccharomyces Boulardii 60 ct. (Klaire/Prothera) Take 1 capsule by mouth two times a day with meals. - COQ10, UBIQUINOL, ORAL Take by mouth. - amLODIPine (NORVASC) 5 mg tablet Take 1 tablet in the AM and 1/2 tablet in the PM. - magnesium chloride (MAG64) [address] tablet TAKE 2 TABLETS BY MOUTH EVERY DAY - Yeast Formula ([employer]) Take 2 enteric-coated softgels between meals twice daily - atorvastatin (LIPITOR) 40 mg tablet Take 1 tablet by mouth daily at bedtime. - testosterone 100 mg/ml cream (CPD) Apply 0.5 mL to affected area once daily. - clopidogrel (PLAVIX) 75 mg tablet Take 1 tablet by mouth once daily. - tamsulosin (FLOMAX) 0.4 mg Take 1 capsule by mouth once daily. - cholecalciferol (VITAMIN D3) 5,000 unit tab Take 1 tablet by mouth once daily. Facility-Administered Medications as of 12/26/2023 - perflutren lipid microspheres 1.3 mL in NaCl (PF) 0.9% 10 mL injection (DEFINITY) - sodium chloride 0.9 % (flush) 10 mL (BD POSIFLUSH) Meds Comments as of 02/01/2021: Magnesium once daily, Maxxum 4 multi-vitamin po bid -(Maria Luisa Pulse NAC, CO-Q-10 + PQQ), Methyl-Folate - 400 mcg daily, , Aqua Micki HP9 - 1 tsp bid and JarroSil 4 mg daily. 02/01/21 Aqua Fora 2 tablespoons daily Problem List As Of Date 12/26/2023 Noted Resolved Diverticulosis of large intestine [K57.30] Diarrhea [R19.7] 05/05/2008 Internal hemorrhoids without mention of complic*05/05/2008 Vitamin D deficiency [E55.9] 04/06/2009 Celiac disease [K90.0] 08/31/2010 Mixed hyperlipidemia [E78.2] 11/30/2010 Right shoulder pain [M25.511] 09/08/2013 09/18/2014 Disorders of bursae and tendons in shoulder reg*09/08/2013 Peripheral vascular disease (HCC) [I73.9] 02/25/2016 Abdominal aortic aneurysm without rupture (HCC)*03/11/2016 Medicare annual wellness visit, subsequent [Z00*02/08/2017 Neck pain, chronic [M54.2, G89.29] 04/25/2017 Hypertension, essential [I10] 02/02/2018 Bilateral carotid artery stenosis [I65.23] 08/20/2018 Benign prostatic hyperplasia with urinary hesit*12/13/2019 Stage 3 chronic kidney disease (HCC) [N18.30] 02/10/2021 Elevated hemoglobin A1c [R73.09] 02/10/2021 Acute diarrhea [R19.7] 03/01/2021 Hyponatremia [E87.1] 03/01/2021 Hypokalemia [E87.6] 03/02/2021 Severe protein-calorie malnutrition (HCC) [E43] 03/04/2021 Synovial cyst of right popliteal space [M71.21] 02/14/2022 Nonrheumatic aortic valve insufficiency, modera*03/02/2023 Acute ischemic stroke (HCC) [I63.9] 04/04/2023 Rib fractures [S22.49XA] 04/04/2023 Traumatic pneumothorax [S27.0XXA] 04/04/2023 04/06/2023 Cerebrovascular accident (CVA) (HCC) [I63.9] 06/23/2023 Encounter Status:Closed by INDIA WOODSON on 12/26/[address] [facility] 11-15-2023 Note HNO ID: [id number] Author: INDIA WOODSON, SESAR Service: ? Author Type: Registered Nurse Type: Progress Notes Filed: 11/15/2023 11:11 Note Text: [facility] Telephonic Outreach Provider Action/FYI Contacted for: Routine Telephonic Outreach Contact made with patient: Yes Patient identified by name and date of . Discussed care with patient Are you experiencing any new or worsening symptoms you need to talk about today? No Disease Specific Do you check your blood pressure at home? No Do you have new or worsening shortness of breath with activity? No Do you feel like you are dehydrated for any reason, including not being able to eat or drink normally, or having less urine/much darker urine than normal for you? No Do you check your daily weight at home? No - Weighed self this morning 148 pounds Based on scuba instructor, the following disposition is advised: No symptoms or symptoms present, not severe. Routed to: No Action Needed VILMA Education Provided this Outreach: No At the end of the conversation, patient stated he and his drove to [place] AND will return the end of December 2023 Denies needs at this time India Woodson RN November 15, 2023 11:[address] [facility] 11-15-2023 History of Presen t illness Narrative [facility] Telephonic Outreach Provider Action/FYI Contacted for: Routine Telephonic Outreach Contact made with patient: Yes Patient identified by name and date of . Discussed care with patient Are you experiencing any new or worsening symptoms you need to talk about today? No Disease Specific Do you check your blood pressure at home? No Do you have new or worsening shortness of breath with activity? No Do you feel like you are dehydrated for any reason, including not being able to eat or drink normally, or having less urine/much darker urine than normal for you? No Do you check your daily weight at home? No - Weighed self this morning 148 pounds Based on scuba instructor, the following disposition is advised: No symptoms or symptoms present, not severe. Routed to: No Action Needed VILMA Education Provided this Outreach: No At the end of the conversation, patient stated he and his drove to [place] & will return the end December 2023 Denies needs at this time India Woodson RN November 15, 2023 11:10 AM documented in this encounter [facility] 11-15-2023 Note Patient Outreach ([facility] HEADINGS,SERGO Suárez ([id number]) 1935 M Date Time Provider Department 11/15/23 INDIA WOODSON [facility] During your visit today, we recorded the following information about you: Weight 67.1 kg India Woodson RN 11/15/2023 11:11 AM Signed M Telephonic Outreach Provider Bessy/RACHEL Contacted for: Routine Telephonic Outreach Contact made with patient: Yes Patient identified by name and date of . Discussed care with patient Are you experiencing any new or worsening symptoms you need to talk about today? No Disease Specific Do you check your blood pressure at home? No Do you have new or worsening shortness of breath with activity? No Do you feel like you are dehydrated for any reason, including not being able to eat or drink normally, or having less urine/much darker urine than normal for you? No Do you check your daily weight at home? No - Weighed self this morning 148 pounds Based on scuba instructor, the following disposition is advised: No symptoms or symptoms present, not severe. Routed to: No Action Needed VILMA Education Provided this Outreach: No At the end of the conversation, patient stated he and his drove to [place] AND will return the end December 2023 Denies needs at this time India Woodson RN November 15, 2023 11:10 AM Allergies As of Date: 11/15/2023 Noted Allergy Reaction GLUTEN 09/23/2011 6 - Diarrhea Comments: Upset stomach Gas build up Date Reviewed: 11/07/2023 Reviewed by: Nataliia Wills LPN - Fully Assessed Reason for Visit: Community Monitoring Outreach [Other] Cmt: CDM Telephonic Outreach Prescriptions as of 11/15/2023 - hydrocortisone 2.5 % ointment Apply to itchy areas once daily - metoprolol tartrate, short acting, (LOPRESSOR) 50 mg tablet Take 1 tablet by mouth two times a day. - MEDICATION, NON-DATABASE Algae Jared - Oil of Oregano 150 mg. 60 ct. ([employer]) Take 1 softgel daily, with meals. - Saccharomyces Boulardii 60 ct. (Klaire/Prothera) Take 1 capsule by mouth two times a day with meals. - COQ10, UBIQUINOL, ORAL Take by mouth. - amLODIPine (NORVASC) 5 mg tablet Take 1 tablet in the AM and 1/2 tablet in the PM. - magnesium chloride (MAG64) [address] tablet TAKE 2 TABLETS BY MOUTH EVERY DAY - Yeast Formula ([employer]) Take 2 enteric-coated softgels between meals twice daily - atorvastatin (LIPITOR) 40 mg tablet Take 1 tablet by mouth daily at bedtime. - testosterone 100 mg/ml cream (CPD) Apply 0.5 mL to affected area once daily. - clopidogrel (PLAVIX) 75 mg tablet Take 1 tablet by mouth once daily. - tamsulosin (FLOMAX) 0.4 mg Take 1 capsule by mouth once daily. - cholecalciferol (VITAMIN D3) 5,000 unit tab Take 1 tablet by mouth once daily. Facility-Administered Medications as of 11/15/2023 - perflutren lipid microspheres 1.3 mL in NaCl (PF) 0.9% 10 mL injection (DEFINITY) - sodium chloride 0.9 % (flush) 10 mL (BD POSIFLUSH) Meds Comments as of 02/01/2021: Magnesium once daily, Maxxum 4 multi-vitamin po bid -(Maria Luisa Pulse NAC, CO-Q-10 + PQQ), Methyl-Folate - 400 mcg daily, , Aqua Micki HP9 - 1 tsp bid and JarroSil 4 mg daily. 02/01/21 Aqua Fora 2 tablespoons daily Problem List As Of Date 11/15/2023 Noted Resolved Diverticulosis of large intestine [K57.30] Diarrhea [R19.7] 05/05/2008 Internal hemorrhoids without mention of complic*05/05/2008 Vitamin D deficiency [E55.9] 04/06/2009 Celiac disease [K90.0] 08/31/2010 Mixed hyperlipidemia [E78.2] 11/30/2010 Right shoulder pain [M25.511] 09/08/2013 09/18/2014 Disorders of bursae and tendons in shoulder reg*09/08/2013 Peripheral vascular disease (HCC) [I73.9] 02/25/2016 Abdominal aortic aneurysm without rupture (HCC)*03/11/2016 Medicare annual wellness visit, subsequent [Z00*02/08/2017 Neck pain, chronic [M54.2, G89.29] 04/25/2017 Hypertension, essential [I10] 02/02/2018 Bilateral carotid artery stenosis [I65.23] 08/20/2018 Benign prostatic hyperplasia with urinary hesit*12/13/2019 Stage 3 chronic kidney disease (HCC) [N18.30] 02/10/2021 Elevated hemoglobin A1c [R73.09] 02/10/2021 Acute diarrhea [R19.7] 03/01/2021 Hyponatremia [E87.1] 03/01/2021 Hypokalemia [E87.6] 03/02/2021 Severe protein-calorie malnutrition (HCC) [E43] 03/04/2021 Synovial cyst of right popliteal space [M71.21] 02/14/2022 Nonrheumatic aortic valve insufficiency, modera*03/02/2023 Acute ischemic stroke (HCC) [I63.9] 04/04/2023 Rib fractures [S22.49XA] 04/04/2023 Traumatic pneumothorax [S27.0XXA] 04/04/2023 04/06/2023 Cerebrovascular accident (CVA) (HCC) [I63.9] 06/23/2023 Encounter Status:Closed by INDIA WOODSON on 11/15/[address] [facility] 11-14-2023 Note HNO ID: [id number] Author: BARAK PARTIDA RN Service: ? Author Type: Registered Nurse Type: Progress Notes Filed: 04/22/2024 10:12 Note Text: [facility] NURSE - CHART REVIEW Provider [facility] Action 04/22/2023 patient with recent history of CVA presented to ED due to vomiting CT revealed no acute changes. Pt identified by name and . Reason for Review: Payor request Patient Attributed To: QAE Payer: [employer] Chart Review For: Utilization: Avoidable ED Total Patient High CostTotal Patient High Cost {HIGH COST:[id number]) Quality measure review Payor request for assistance Action Taken: Data submitted to zach Partida RN November 14, 2023 1:[address] [facility] 11-14-2023 History of Presen t illness Narrative [facility] NURSE - CHART REVIEW Provider [facility] Action 04/22/2023 patient with recent history of CVA presented to ED due to vomiting CT revealed no acute changes. Pt identified by name and . Reason for Review: Payor request Patient Attributed To: QAE Payer: [employer] Chart Review For: Utilization: ED Total Patient High CostTotal Patient High Cost {HIGH COST:290724) Quality measure review Payor request for assistance Action Taken: Data submitted to zach Partida RN November 14, 2023 1:03 PM documented in this encounter [facility] 11-14-2023 Note Patient Outreach ([facility] [place] HEADINGS,SERGO Suárez ([id number]) 1935 M Date Time Provider Department 11/14/23 BARAK PARTIDA [facility] [place] During your visit today, we recorded the following information about you: Barak Partida RN 04/22/2024 10:12 AM Addendum [facility]SE - CHART REVIEW Provider [facility] Action 04/22/2023 patient with recent history of CVA presented to ED due to vomiting CT revealed no acute changes. Pt identified by name and . Reason for Review: Payor request Patient Attributed To: JOSE RAMON Payer: KIKA Chart Review For: Utilization: Avoidable ED Total Patient High CostTotal Patient High Cost {HIGH COST:747416) Quality measure review Payor request for assistance Action Taken: Data submitted to payor Barak Partida RN November 14, 2023 1:03 PM Allergies As of Date: 11/14/2023 Noted Allergy Reaction GLUTEN 09/23/2011 6 - Diarrhea Comments: Upset stomach Gas build up Date Reviewed: 11/07/2023 Reviewed by: Nataliia Wills LPN - Fully Assessed Prescriptions as of 04/22/2024 - testosterone 100 mg/ml cream (CPD) Apply 0.5 mL to affected area once daily for 180 days. - LORazepam (ATIVAN) 0.5 mg Take 1 tablet by mouth three times a day as needed (anxiety) for up to 14 days. - atorvastatin (LIPITOR) 40 mg tablet Take 1 tablet by mouth daily at bedtime. - tamsulosin (FLOMAX) 0.4 mg Take 1 capsule by mouth once daily. - hydrocortisone 2.5 % ointment Apply to itchy areas once daily - metoprolol tartrate, short acting, (LOPRESSOR) 50 mg tablet Take 1 tablet by mouth two times a day. - MEDICATION, NON-DATABASE Algae Jared - Oil of Oregano [address] (Manta for [employer]) Take 1 softgel daily, with meals. - Saccharomyces Boulardii 60 ct. (Klaire/Prothera) Take 1 capsule by mouth two times a day with meals. - COQ10, UBIQUINOL, ORAL Take by mouth. - amLODIPine (NORVASC) 5 mg tablet Take 1 tablet in the AM and 1/2 tablet in the PM. - clopidogrel (PLAVIX) 75 mg tablet Take 1 tablet by mouth once daily. - cholecalciferol (VITAMIN D3) 5,000 unit tab Take 1 tablet by mouth once daily. Facility-Administered Medications as of 04/22/2024 - perflutren lipid microspheres 1.3 mL in NaCl (PF) 0.9% 10 mL injection (DEFINITY) - sodium chloride 0.9 % (flush) 10 mL (BD POSIFLUSH) Meds Comments as of 02/01/2021: Magnesium once daily, Maxxum 4 multi-vitamin po bid -(Maria Luisa Pulse NAC, CO-Q-10 + PQQ), Methyl-Folate - 400 mcg daily, , Aqua Micki HP9 - 1 tsp bid and JarroSil 4 mg daily. 02/01/21 Aqua Fora 2 tablespoons daily Problem List As Of Date 11/14/2023 Noted Resolved Diverticulosis of large intestine [K57.30] Diarrhea [R19.7] 05/05/2008 Internal hemorrhoids without mention of complic*05/05/2008 Vitamin D deficiency [E55.9] 04/06/2009 Celiac disease [K90.0] 08/31/2010 Mixed hyperlipidemia [E78.2] 11/30/2010 Right shoulder pain [M25.511] 09/08/2013 09/18/2014 Disorders of bursae and tendons in shoulder reg*09/08/2013 Peripheral vascular disease (HCC) [I73.9] 02/25/2016 Abdominal aortic aneurysm without rupture (HCC)*03/11/2016 Medicare annual wellness visit, subsequent [Z00*02/08/2017 Neck pain, chronic [M54.2, G89.29] 04/25/2017 Hypertension, essential [I10] 02/02/2018 Bilateral carotid artery stenosis [I65.23] 08/20/2018 Benign prostatic hyperplasia with urinary hesit*12/13/2019 Stage 3 chronic kidney disease (HCC) [N18.30] 02/10/2021 Elevated hemoglobin A1c [R73.09] 02/10/2021 Acute diarrhea [R19.7] 03/01/2021 Hyponatremia [E87.1] 03/01/2021 Hypokalemia [E87.6] 03/02/2021 Severe protein-calorie malnutrition (HCC) [E43] 03/04/2021 Synovial cyst of right popliteal space [M71.21] 02/14/2022 Nonrheumatic aortic valve insufficiency, modera*03/02/2023 Acute ischemic stroke (HCC) [I63.9] 04/04/2023 Rib fractures [S22.49XA] 04/04/2023 Traumatic pneumothorax [S27.0XXA] 04/04/2023 04/06/2023 Cerebrovascular accident (CVA) (HCC) [I63.9] 06/23/2023 Encounter Status:Closed by BARAK PARTIDA on 11/14/[address] [facility] 11-07-2023 Note HNO ID: [id number] Author: LESA MERAZ MD Service: ? Author Type: Physician Type: Progress Notes Filed: 11/07/2023 12:50 Note Text: EST PATIENT LISA in Dermatology: 08/21/2023 Sergo Suárez Headings is a 88 year old male who presents today for Patient presents with: Full Body Skin Check Current Treatment: Hydrocortisone ointment Past Treatment: As above History of nonmelanoma skin cancer: no History of Melanoma: no Family history of skin cancer: no Dermatology History: Specialty Problems None Allergies: Gluten Past Medical History: PAST MEDICAL HISTORY Diagnosis Date Abdominal aortic aneurysm without rupture (HCC) 03/11/[address] Singh Benign prostatic hyperplasia with urinary hesitancy 12/13/2019 Had 10h of urinary retention, Voided x2 since chang removed but small volume Begun on flomax 12/11 Obtain postvoid residual to ensure no overflow incontinence Bilateral carotid artery stenosis 08/20/2018 Celiac disease 08/31/2010 Disorders of bursae and tendons in shoulder region, unspecified 09/08/2013 Diverticulosis of large intestine Elevated hemoglobin A1c 02/10/2021 Hypertension, essential 02/02/2018 Internal hemorrhoids without mention of complication 05/05/2008 Mixed hyperlipidemia 11/30/2010 Peripheral vascular disease (HCC) 02/25/2016 Stage 3a chronic kidney disease (HCC) 02/10/2021 Stroke, Ischemic - Right Parietal, Right Temporal-Occipital, Middle Cerebral Peduncle AND Right Cerebellar 03/2023 Synovial cyst of right popliteal space 02/14/2022 Vitamin D deficiency 04/06/2009 MEDS: Current Outpatient Medications on File Prior to Visit Medication Sig metoprolol tartrate, short acting, (LOPRESSOR) 50 mg tablet Take 1 tablet by mouth two times a day. MEDICATION, NON-DATABASE Algae Jared Oil of Oregano [address] ([employer]) Take 1 softgel daily, with meals. Saccharomyces Boulardii 60 ct. (Klaire/Prothera) Take 1 capsule by mouth two times a day with meals. hydrocortisone 2.5 % ointment Apply to itchy areas once daily COQ10, UBIQUINOL, ORAL Take by mouth. amLODIPine (NORVASC) 5 mg tablet Take 1 tablet in the AM and 1/2 tablet in the PM. magnesium chloride (MAG64) [address] tablet TAKE 2 TABLETS BY MOUTH EVERY DAY Yeast Formula ([employer]) Take 2 enteric-coated softgels between meals twice daily atorvastatin (LIPITOR) 40 mg tablet Take 1 tablet by mouth daily at bedtime. testosterone 100 mg/ml cream (CPD) Apply 0.5 mL to affected area once daily. clopidogrel (PLAVIX) 75 mg tablet Take 1 tablet by mouth once daily. tamsulosin (FLOMAX) 0.4 mg Take 1 capsule by mouth once daily. cholecalciferol (VITAMIN D3) 5,000 unit tab Take 1 tablet by mouth once daily. Current Facility-Administered Medications on File Prior to Visit Medication perflutren lipid microspheres 1.3 mL in NaCl (PF) 0.9% 10 mL injection (DEFINITY) sodium chloride 0.9 % (flush) 10 mL (BD POSIFLUSH) Review of systems No Has pacemaker / defibrillator No Takes aspirin / anticoagulant daily Yes: plavix Has valve disorders No Other problems elsewhere on skin No Nataliia Wills LPN The above was entered by the nursing staff. I have reviewed the documentation and I concur. Lesa Meraz MD HPI: Chief Complaint Skin check Location Full body Duration years Timing constant Severity mild Quality constant Modifying Factors: PT states he has itchy skin at times and would like a refill on hydrocortisone ointment. Typically uses the cream 1-2x a week and has relief. Denies moisturizing skin Physical Exam - Area(s) Examined: The pt is alert and oriented, in NAD. Skin examination of head/scalp, face, neck, chest, back, abdomen, bilateral upper, lower extremities, groin/buttocks, hands, feet, digits, and nails. was significant for: Items identified on Diagram above No current rash and no dermatographism Component Latest Ref Rng AND Units 09/08/2023 WBC 3.70 - 11.00 k/uL 6.61 RBC 4.20 - 6.00 m/uL 4.21 Hemoglobin 13.0 - 17.0 g/dL 12.7 (L) Hematocrit 39.0 - 51.0 % 39.6 MCV 80.0 - 100.0 fL 94.1 MCH 26.0 - 34.0 pg 30.2 MCHC 30.5 - 36.0 g/dL 32.1 RDW-CV 11.5 - 15.0 % 14.6 Platelet Count 150 - 400 k/uL 201 MPV 9.0 - 12.7 fL 12.0 Absolute nRBC <0.01 k/uL <0.01 Glucose 74 - 99 mg/dL 146 (H) BUN 9 - 24 mg/dL 21 Creatinine 0.73 - 1.22 mg/dL 1.34 (H) Sodium 136 - 144 mmol/L 140 Potassium 3.7 - 5.1 mmol/L 4.2 Chloride 97 - 105 mmol/L 107 (H) CO2 22 - 30 mmol/L 23 Anion Gap 9 - 18 mmol/L 10 Calcium 8.5 - 10.2 mg/dL 9.3 eGFR >=60 mL/min/1.73mA? 52 (L) Hemoglobin A1C 4.3 - 5.6 % 6.3 (H) Estimated Average Glucose mg/dL 134 Has not had thyroid studies since 2021 Assessment / Plan: (L29.9) Pruritus (primary encounter diagnosis) Comment: Educated and reassured Plan: Continue hydrocortisone 2.5 % ointment. CeraVe samples given today in the office. Will add thyroid studies to next labs that are ordered. (more content not included)... [facility] 11-07-2023 History of Presen t illness Narrative Images from the original note were not included. EST PATIENT LISA in Dermatology: 08/21/2023 Sergo Kamini Headings is a 88 year old male who presents today for Patient presents with: Full Body Skin Check Current Treatment: Hydrocortisone ointment Past Treatment: As above History of nonmelanoma skin cancer: no History of Melanoma: no Family history of skin cancer: no Dermatology History: Specialty Problems None Allergies: Gluten Past Medical History: PAST MEDICAL HISTORY Diagnosis Date Abdominal aortic aneurysm without rupture (HCC) 03/11/[address] Singh Benign prostatic hyperplasia with urinary hesitancy 12/13/2019 Had 10h of urinary retention, Voided x2 since chang removed but small volume Begun on flomax 12/11 Obtain postvoid residual to ensure no overflow incontinence Bilateral carotid artery stenosis 08/20/2018 Celiac disease 08/31/2010 Disorders of bursae and tendons in shoulder region, unspecified 09/08/2013 Diverticulosis of large intestine Elevated hemoglobin A1c 02/10/2021 Hypertension, essential 02/02/2018 Internal hemorrhoids without mention of complication 05/05/2008 Mixed hyperlipidemia 11/30/2010 Peripheral vascular disease (HCC) 02/25/2016 Stage 3a chronic kidney disease (HCC) 02/10/2021 Stroke, Ischemic - Right Parietal, Right Temporal-Occipital, Middle Cerebral Peduncle & Right Cerebellar 03/2023 Synovial cyst of right popliteal space 02/14/2022 Vitamin D deficiency 04/06/2009 MEDS: Current Outpatient Medications on File Prior to Visit Medication Sig metoprolol tartrate, short acting, (LOPRESSOR) 50 mg tablet Take 1 tablet by mouth two times a day. MEDICATION, NON-DATABASE Algae Jared Oil of Oregano [address] ([employer]) Take 1 softgel daily, with meals. Saccharomyces Boulardii 60 ct. (Klaire/Prothera) Take 1 capsule by mouth two times a day with meals. hydrocortisone 2.5 % ointment Apply to itchy areas once daily COQ10, UBIQUINOL, ORAL Take by mouth. amLODIPine (NORVASC) 5 mg tablet Take 1 tablet in the AM and 1/2 tablet in the PM. magnesium chloride (MAG64) [address] tablet TAKE 2 TABLETS BY MOUTH EVERY DAY Yeast Formula ([employer]) Take 2 enteric-coated softgels between meals twice daily atorvastatin (LIPITOR) 40 mg tablet Take 1 tablet by mouth daily at bedtime. testosterone 100 mg/ml cream (CPD) Apply 0.5 mL to affected area once daily. clopidogrel (PLAVIX) 75 mg tablet Take 1 tablet by mouth once daily. tamsulosin (FLOMAX) 0.4 mg Take 1 capsule by mouth once daily. cholecalciferol (VITAMIN D3) 5,000 unit tab Take 1 tablet by mouth once daily. Current Facility-Administered Medications on File Prior to Visit Medication perflutren lipid microspheres 1.3 mL in NaCl (PF) 0.9% 10 mL injection (DEFINITY) sodium chloride 0.9 % (flush) 10 mL (BD POSIFLUSH) Review of systems No Has pacemaker / defibrillator No Takes aspirin / anticoagulant daily Yes: plavix Has valve disorders No Other problems elsewhere on skin No Nataliia Wills LPN The above was entered by the nursing staff. I have reviewed the documentation and I concur. Lesa Meraz MD HPI: Chief Complaint Skin check Location Full body Duration years Timing constant Severity mild Quality constant Modifying Factors: PT states he has itchy skin at times and would like a refill on hydrocortisone ointment. Typically uses the cream 1-2x a week and has relief. Denies moisturizing skin Physical Exam - Area(s) Examined: The pt is alert and oriented, in NAD. Skin examination of head/scalp, face, neck, chest, back, abdomen, bilateral upper, lower extremities, groin/buttocks, hands, feet, digits, and nails. was significant for: Items identified on Diagram above No current rash and no dermatographism Component Latest Ref Rng & Units 09/08/2023 WBC 3.70 - 11.00 k/uL 6.61 RBC 4.20 - 6.00 m/uL 4.21 Hemoglobin 13.0 - 17.0 g/dL 12.7 (L) Hematocrit 39.0 - 51.0 % 39.6 MCV 80.0 - 100.0 fL 94.1 MCH 26.0 - 34.0 pg 30.2 MCHC 30.5 - 36.0 g/dL 32.1 RDW-CV 11.5 - 15.0 % 14.6 Platelet Count 150 - 400 k/uL 201 MPV 9.0 - 12.7 fL 12.0 Absolute nRBC <0.01 k/uL <0.01 Glucose 74 - 99 mg/dL 146 (H) BUN 9 - 24 mg/dL 21 Creatinine 0.73 - 1.22 mg/dL 1.34 (H) Sodium 136 - 144 mmol/L 140 Potassium 3.7 - 5.1 mmol/L 4.2 Chloride 97 - 105 mmol/L 107 (H) CO2 22 - 30 mmol/L 23 Anion Gap 9 - 18 mmol/L 10 Calcium 8.5 - 10.2 mg/dL 9.3 eGFR >=60 mL/min/1.73m 52 (L) Hemoglobin A1C 4.3 - 5.6 % 6.3 (H) Estimated Average Glucose mg/dL 134 Has not had thyroid studies since 2021 Assessment / Plan: (L29.9) Pruritus (primary encounter diagnosis) Comment: Educated and reassured Plan: Continue hydrocortisone 2.5 % ointment. CeraVe samples given today in the office. Will add thyroid studies to next labs that are ordered. (L82.1) Seborrheic keratosis Comment: Reassurance on benign appearing nature of lesion(s) Plan: Recommend observation and encouraged to notify office of changes. Recommend sunscreens (SPF 30 or higher) and reapplication. (Z12.83) Encounter for screening for malignant neoplasm of skin Comment: stable Plan: Monitor for growth change. Sun precautions. (L81.4) Lentigines Comment: discussed Plan: as above Olu Leos APRN.BUILDING SPECIALIST- training By signing my name below, Nataliia Mariano LPN, attest that this documentation has been prepared under the direction and in the presence of Lesa Meraz MD. Electronically Signed: Nataliia Wills LPN, Scribe. November 07, 2023 9:05 AM. Lesa Mariano MD, personally performed the services described in this documentation. All medical record entries made by the scribe were at my direction and in my presence. I have reviewed the chart and discharge instructions (if applicable) and agree that the record reflects my personal performance and is accurate and complete. Electronically Signed: Lesa Meraz MD November 07, 2023 9:05 AM. documented in this encounter [facility] 10-17-2023 Note HNO ID: [id number] Author: NINOSAK HPILLIPS RD Service: ? Author Type: Registered Dietitian Type: Progress Notes Filed: 10/17/2023 17:20 Note Text: [facility] Nutrition Therapy: Follow-Up Assessment (Individual) PHONE - VIRTUALVISITPN I have communicated my name and active licensure. The patient's identity and physical location were verified at the time of this visit. Either the patient or their legal life assurance representative has been informed of the risks and benefits of -- and alternatives to -- treatment through a remote evaluation and consents to proceed with the evaluation remotely. Patient is located in the [facility] at the time of the virtual visit. Patient Name: Sergo Suárez Headings Past Medical History: PAST MEDICAL HISTORY Diagnosis Date Abdominal aortic aneurysm without rupture (HCC) 03/11/[address] Singh Benign prostatic hyperplasia with urinary hesitancy 12/13/2019 Had 10h of urinary retention, Voided x2 since chang removed but small volume Begun on flomax 12/11 Obtain postvoid residual to ensure no overflow incontinence Bilateral carotid artery stenosis 08/20/2018 Celiac disease 08/31/2010 Disorders of bursae and tendons in shoulder region, unspecified 09/08/2013 Diverticulosis of large intestine Elevated hemoglobin A1c 02/10/2021 Hypertension, essential 02/02/2018 Internal hemorrhoids without mention of complication 05/05/2008 Mixed hyperlipidemia 11/30/2010 Peripheral vascular disease (HCC) 02/25/2016 Stage 3a chronic kidney disease (HCC) 02/10/2021 Stroke, Ischemic - Right Parietal, Right Temporal-Occipital, Middle Cerebral Peduncle AND Right Cerebellar 03/2023 Synovial cyst of right popliteal space 02/14/2022 Vitamin D deficiency 04/06/2009 Allergies: Gluten Current Medications/Supplements Current Outpatient Medications on File Prior to Visit Medication Sig metoprolol tartrate, short acting, (LOPRESSOR) 50 mg tablet Take 1 tablet by mouth two times a day. MEDICATION, NON-DATABASE Algae Jared Oil of Oregano [address] ([employer]) Take 1 softgel daily, with meals. Saccharomyces Boulardii 60 ct. (Klaire/Prothera) Take 1 capsule by mouth two times a day with meals. hydrocortisone 2.5 % ointment Apply to itchy areas once daily COQ10, UBIQUINOL, ORAL Take by mouth. amLODIPine (NORVASC) 5 mg tablet Take 1 tablet in the AM and 1/2 tablet in the PM. magnesium chloride (MAG64) [address] tablet TAKE 2 TABLETS BY MOUTH EVERY DAY Yeast Formula ([employer]) Take 2 enteric-coated softgels between meals twice daily atorvastatin (LIPITOR) 40 mg tablet Take 1 tablet by mouth daily at bedtime. testosterone 100 mg/ml cream (CPD) Apply 0.5 mL to affected area once daily. clopidogrel (PLAVIX) 75 mg tablet Take 1 tablet by mouth once daily. tamsulosin (FLOMAX) 0.4 mg Take 1 capsule by mouth once daily. cholecalciferol (VITAMIN D3) 5,000 unit tab Take 1 tablet by mouth once daily. Current Facility-Administered Medications on File Prior to Visit Medication perflutren lipid microspheres 1.3 mL in NaCl (PF) 0.9% 10 mL injection (DEFINITY) sodium chloride 0.9 % (flush) 10 mL (BD POSIFLUSH) Primary ICD-10 Diagnosis Addressed: Irritable bowel syndrome with diarrhea [K58.0] Provider Nutrition Notes:Nutrition only today Status of Chief Concerns 1. GI sx: gas and loose stools Nutrition Assessment (updated 10/17/23) Current Symptom Review: gas, loose stools, bloating AND loose stools (with gluten) Food and Nutrition History (update): - Current diet: gluten-free - Summer 2022 - stroke - 09/2022 GI Effects: dysbiosis and + PP bacteria; followed gut healing protocol; saw some improvement, but still having gas, loose stools Current Adverse Reactions to Foods: Yes, gluten (bloating AND loose stools) Diet Recall: Yes 24 Hour Recall Breakfast: GF rice chex + goat's milk + blueberries or pear slices + 1/4 cup walnuts/pecans + dark chocolate (90%) Lunch: GF blackberry waffles + 3 turkey sausages (8g pro) or 1.5 eggs (9 g pro) or 3 oz turkey breast in coconut wrap + potato chips Dinner: 3-4 oz Cod/grass-fed beef/grass-fed chicken + potatoes (purple sweet potatoes or yam) or rice Beverages: water, Zoup! bone broth (4g pro/8 oz) Anthropometrics There were no vitals taken for this visit. Last Height: Last 1 Encounter Ht Readings: Date: Ht: 09/27/2023 172.7 cm (5' 8 ) Last Weight: Last Wt 10/02/23 : 69.4 kg (153 lb) 09/27/23 : 68 kg (150 lb) 09/08/23 : 68 kg (150 lb) Wt: 69.4 kg (153 lb) BMI: 23.26 kg/(m2) Learning Needs Assessment: Barriers to Learning: Ready to Learn (no barriers noted) Assessed motivation to learn: high Biochemical and Laboratory Data Conventional/Advanced Testing No new relevant/available Laboratory Values Addressed: None addressed today Nutrition Prescription Energy: Resting Metabolic Rate: 1354 Est energy needs: (DRI, low PAL, wt mainte (more content not included)... [facility] 10-11-2023 Note HNO ID: [id number] Author: INDIA WOODSON RN Service: ? Author Type: Registered Nurse Type: Progress Notes Filed: 10/11/2023 15:25 Note Text: CD[facility] Telephonic Outreach Provider Action/FYI Contacted for: Routine Telephonic Outreach Contact made with patient: Yes Patient identified by name and date of . Discussed care with caregiver and spouse, May Are you experiencing any new or worsening symptoms you need to talk about today? No Disease Specific Do you check your blood pressure at home? No Do you have new or worsening shortness of breath with activity? No Do you feel like you are dehydrated for any reason, including not being able to eat or drink normally, or having less urine/much darker urine than normal for you? No Do you check your daily weight at home? No Based on scuba instructor, the following disposition is advised: No symptoms or symptoms present, not severe. Routed to: No Action Needed VILMA Education Provided this Outreach: No Denies needs at this time Reminded patient to call office of PCP with questions or concerns India Woodson RN October 11, 2023 3:[address] [facility] 10-11-2023 Note Patient Outreach ([facility] [place] HEADINGS,SERGO Suárez ([id number]) 1935 M Date Time Provider Department 10/11/23 INDIA WOODSON During your visit today, we recorded the following information about you: India Woodson, SESAR 10/11/2023 3:25 PM Signed [facility] Telephonic Outreach Provider Action/FYI Contacted for: Routine Telephonic Outreach Contact made with patient: Yes Patient identified by name and date of . Discussed care with caregiver and spouse, May Are you experiencing any new or worsening symptoms you need to talk about today? No Disease Specific Do you check your blood pressure at home? No Do you have new or worsening shortness of breath with activity? No Do you feel like you are dehydrated for any reason, including not being able to eat or drink normally, or having less urine/much darker urine than normal for you? No Do you check your daily weight at home? No Based on scuba instructor, the following disposition is advised: No symptoms or symptoms present, not severe. Routed to: No Action Needed VILMA Education Provided this Outreach: No Denies needs at this time Reminded patient to call office of PCP with questions or concerns India Woodson RN October 11, 2023 3:24 PM Allergies As of Date: 10/11/2023 Noted Allergy Reaction GLUTEN 09/23/2011 6 - Diarrhea Comments: Upset stomach Gas build up Date Reviewed: 09/27/2023 Reviewed by: Chantell Marley LPN - Fully Assessed Reason for Visit: Community Monitoring Outreach [Other] Cmt: CDM Telephonic Outreach Prescriptions as of 10/11/2023 - metoprolol tartrate, short acting, (LOPRESSOR) 50 mg tablet Take 1 tablet by mouth two times a day. - MEDICATION, NON-DATABASE Algae Jared - Oil of Oregano 150 mg. 60 ct. ([employer]ile [employer]) Take 1 softgel daily, with meals. - Saccharomyces Boulardii 60 ct. (Klaire/Prothera) Take 1 capsule by mouth two times a day with meals. - hydrocortisone 2.5 % ointment Apply to itchy areas once daily - COQ10, UBIQUINOL, ORAL Take by mouth. - amLODIPine (NORVASC) 5 mg tablet Take 1 tablet in the AM and 1/2 tablet in the PM. - magnesium chloride (MAG64) [address] tablet TAKE 2 TABLETS BY MOUTH EVERY DAY - Yeast Formula (Integrative [employer]rapeutics) Take 2 enteric-coated softgels between meals twice daily - atorvastatin (LIPITOR) 40 mg tablet Take 1 tablet by mouth daily at bedtime. - testosterone 100 mg/ml cream (CPD) Apply 0.5 mL to affected area once daily. - clopidogrel (PLAVIX) 75 mg tablet Take 1 tablet by mouth once daily. - tamsulosin (FLOMAX) 0.4 mg Take 1 capsule by mouth once daily. - cholecalciferol (VITAMIN D3) 5,000 unit tab Take 1 tablet by mouth once daily. Facility-Administered Medications as of 10/11/2023 - perflutren lipid microspheres 1.3 mL in NaCl (PF) 0.9% 10 mL injection (DEFINITY) - sodium chloride 0.9 % (flush) 10 mL (BD POSIFLUSH) Meds Comments as of 02/01/2021: Magnesium once daily, Maxxum 4 multi-vitamin po bid -(Maria Luisa Pulse NAC, CO-Q-10 + PQQ), Methyl-Folate - 400 mcg daily, , Aqua Micki HP9 - 1 tsp bid and JarroSil 4 mg daily. 02/01/21 Aqua Fora 2 tablespoons daily Problem List As Of Date 10/11/2023 Noted Resolved Diverticulosis of large intestine [K57.30] Diarrhea [R19.7] 05/05/2008 Internal hemorrhoids without mention of complic*05/05/2008 Vitamin D deficiency [E55.9] 04/06/2009 Celiac disease [K90.0] 08/31/2010 Mixed hyperlipidemia [E78.2] 11/30/2010 Right shoulder pain [M25.511] 09/08/2013 09/18/2014 Disorders of bursae and tendons in shoulder reg*09/08/2013 Peripheral vascular disease (HCC) [I73.9] 02/25/2016 Abdominal aortic aneurysm without rupture (HCC)*03/11/2016 Medicare annual wellness visit, subsequent [Z00*02/08/2017 Neck pain, chronic [M54.2, G89.29] 04/25/2017 Hypertension, essential [I10] 02/02/2018 Bilateral carotid artery stenosis [I65.23] 08/20/2018 Benign prostatic hyperplasia with urinary hesit*12/13/2019 Stage 3 chronic kidney disease (HCC) [N18.30] 02/10/2021 Elevated hemoglobin A1c [R73.09] 02/10/2021 Acute diarrhea [R19.7] 03/01/2021 Hyponatremia [E87.1] 03/01/2021 Hypokalemia [E87.6] 03/02/2021 Severe protein-calorie malnutrition (HCC) [E43] 03/04/2021 Synovial cyst of right popliteal space [M71.21] 02/14/2022 Nonrheumatic aortic valve insufficiency, modera*03/02/2023 Acute ischemic stroke (HCC) [I63.9] 04/04/2023 Rib fractures [S22.49XA] 04/04/2023 Traumatic pneumothorax [S27.0XXA] 04/04/2023 04/06/2023 Cerebrovascular accident (CVA) (HCC) [I63.9] 06/23/2023 Encounter Status:Closed by INDIA WOODSON on 10/11/[address] [facility] 10-02-2023 Note HNO ID: [id number] Author: KEVIN BHAGAT APRN.BUILDING SPECIALIST Service: ? Author Type: Nurse Practitioner Type: Progress Notes Filed: 10/05/2023 07:28 Note Text: CC: Patient presents with: Follow Up: 3 month follow up HPI Sergo Rosas is a 88 year old male who presents today for routine follow up. HTN, CKD, and HLD: Mr. Rosas indicates that he is feeling well and denies any symptoms referable to elevated blood pressure. Specifically denies headache, chest pain, palpitations, dyspnea, and peripheral edema. Patient denies any side effects of his medication(s) and is compliant with their regimen. He does not check BP's generally. Sergo works out regularly 7 times per week with walking. He watches his diet for sodium, low fat and low cholesterol most of the time. Last 3 Encounter BP Readings: Date: BP: 10/02/2023 124/62 09/27/2023 146/60 08/08/2023 118/64 History of CVA without residual effects. Is on plavix daily and atorvastatin. Follows regularly with neurology. Does not use an assistive device but would like to have a handicapped placard to use if parking lots are icy to help prevent fall. Prediabetes: Mr. Rosas denies excessive thirst or increased frequency of urination, chest pain or dyspnea , numbness, tingling or pain in extremities, new or unusual visual symptoms, low sugar/hypoglycemic reactions, weight loss/gain, and lightheadedness/dizziness. Follows a diabetic diet most of the time. He is compliant with medication(s) and is tolerating med(s) without any side effects. He reports checking his glucose on a infrequent to not at all basis schedule. Patient's last HgA1C was Hemoglobin A1C (%) Date Value 09/08/2023 6.3 04/24/2023 6.5 05/12/2021 5.8 02/10/2021 6.5 ) Is getting started on probiotic for gas and loose stools as ordered by functional medicine. REVIEW OF SYSTEMS See HPI PAST MEDICAL HISTORY Diagnosis Date Abdominal aortic aneurysm without rupture (HCC) 03/11/[address] Singh Benign prostatic hyperplasia with urinary hesitancy 12/13/2019 Had 10h of urinary retention, Voided x2 since chang removed but small volume Begun on flomax 12/11 Obtain postvoid residual to ensure no overflow incontinence Bilateral carotid artery stenosis 08/20/2018 Celiac disease 08/31/2010 Disorders of bursae and tendons in shoulder region, unspecified 09/08/2013 Diverticulosis of large intestine Elevated hemoglobin A1c 02/10/2021 Hypertension, essential 02/02/2018 Internal hemorrhoids without mention of complication 05/05/2008 Mixed hyperlipidemia 11/30/2010 Peripheral vascular disease (HCC) 02/25/2016 Stage 3a chronic kidney disease (HCC) 02/10/2021 Stroke, Ischemic - Right Parietal, Right Temporal-Occipital, Middle Cerebral Peduncle AND Right Cerebellar 03/2023 Synovial cyst of right popliteal space 02/14/2022 Vitamin D deficiency 04/06/2009 PAST SURGICAL HISTORY Procedure Laterality Date ABD AORTA ANEURYSM REPAIR 11/2019 COLONOSCOPY FLX DX W/COLLJ SPEC WHEN PFRMD 03/23/2004 Colonoscopy COLONOSCOPY FLX DX W/COLLJ SPEC WHEN PFRMD 05/05/2008 Colonoscopy, repeat 10 yrs PAST SURGICAL HISTORY OF 04/14/2004 excision of lesion neck PAST SURGICAL HISTORY OF 02/21/1992 lesion removed from rectum ALLERGIES Gluten MEDICATIONS MEDICATION, NON-DATABASEAlgae CalDisp: Rfl: Oil of Oregano [address]. ([employer])Take 1 softgel daily, with meals.Disp: Rfl: Saccharomyces Boulardii 60 ct. (Klaire/Prothera)Take 1 capsule by mouth two times a day with meals.Disp: Rfl: hydrocortisone 2.5 % ointmentApply to itchy areas once dailyDisp: 454 gRfl: 1 COQ10, UBIQUINOL, ORALTake by mouth.Disp: Rfl: amLODIPine (NORVASC) 5 mg tabletTake 1 tablet in the AM and 1/2 tablet in the PM.Disp: 135 tabletRfl: 3 magnesium chloride (MAG64) [address] tabletTAKE 2 TABLETS BY MOUTH EVERY DAYDisp: 60 tabletRfl: 3 Yeast Formula ([employer])Take 2 enteric-coated softgels between meals twice dailyDisp: 90 capsuleRfl: (Patient not taking: Reported on 09/27/2023) atorvastatin (LIPITOR) 40 mg tabletTake 1 tablet by mouth daily at bedtime.Disp: 90 tabletRfl: 3 testosterone 100 mg/ml cream (CPD)Apply 0.5 mL to affected area once daily.Disp: Rfl: clopidogrel (PLAVIX) 75 mg tabletTake 1 tablet by mouth once daily.Disp: 30 tabletRfl: 11 tamsulosin (FLOMAX) 0.4 mgTake 1 capsule by mouth once daily.Disp: 90 capsuleRfl: 3 metoprolol tartrate, short acting, (LOPRESSOR) 50 mg tabletTake 1 tablet by mouth twice daily.Disp: 180 tabletRfl: 3 cholecalciferol (VITAMIN D3) 5,000 unit tabTake 1 tablet by mouth once daily.Disp: Rfl: FAMILY HISTORY Problem Relation Age of Onset Stroke Father other (lupus) Sister Diabetes Brother Diabetes Brother Social History Tobacco Use Smoking status: Never Smokeless tobacco: Never Substance Use Topics Alcohol use: No Drug use: Never PHYSICAL EXAM BP 124/62 Pulse 60 Resp 16 Wt 69.4 kg (153 lb) (more content not included)... [facility] 09-27-2023 Note HNO ID: [id number] Author: Kathy Huggins MD Service: ? Author Type: Physician Type: Progress Notes Filed: 09/27/2023 2:14 PM Note Text: FUNCTIONAL MEDICINE FOLLOW-UP ASSESSMENT Patient: Sergo Suárez Headings 68 kg (150 lb) 172.7 cm (5' 8 ) Body mass index is 22.81 kg/m?. Resting Metabolic Rate: 1331 Waist measurement: No waist measurement recorded. BP: 146/60 ALLERGIES Allergen Reactions Gluten Diarrhea Upset stomach Gas build up Current Outpatient Medications on File Prior to Visit Medication Sig tamsulosin (FLOMAX) 0.4 mg Take 1 capsule by mouth once daily. metoprolol tartrate, short acting, (LOPRESSOR) 50 mg tablet Take 1 tablet by mouth twice daily. SprectraZyme Mcqueen 9x ES Take 1 tablet by mouth w MEALS. r-flfghrosh-gogadsxt root extract-aloe leaf extract (GLUTAGENICS) [id number] powder Mix one teaspoon (4.33 g) with water three times daily (1 teaspoon = 3.5 grams L-glut) milk thistle seed extract 200 mg cap Take by mouth. cholecalciferol (VITAMIN D3) 5,000 unit tab Take 1 tablet by mouth once daily. ZINC ORAL Take 50 mg by mouth once daily. TESTOSTERONE, BULK, MISC Cream Aspirin 81 mg tab Take 1 tablet by mouth once daily. CandiBactin AR (PeopleJar) One softgel three times daily with meals CandiBactin BR (MetagenwireLawyer) Two tablets three times daily Biocidin Advanced Formula (FirstBest) Take 5 Drops by mouth three times daily. Atrantil One (2) capsule per day up to 3 x's a day with food. hydrOXYzine HCl (ATARAX) 25 mg tablet TAKE 1 TABLET BY MOUTH THREE TIMES DAILY NEEDED FOR ITCHING/RASH. turmeric (CURCUMIN MISC) selenium 200 mcg tablet Take 1 tablet by mouth once daily. Flaxseed Oil 1,000 mg cap Take by mouth. (Patient not taking: Reported on 08/08/2022) OTC PRODUCT Liver md 2 caps daily OTC PRODUCT Arterial protect one cap dialy OTC PRODUCT digestzymes-- pancreatic enzymes (Patient not taking: Reported on 08/08/2022) GLUTATHIONE ORAL Take by mouth. MAGNESIUM ORAL Take 600 mg by mouth once daily. Glutamine (L-GLUTAMINE) 500 mg cap Take by mouth once daily. ubidecarenone (COQ-10 ORAL) Take 200 mg by mouth once daily. VITAMIN K2 ORAL Take 550 mcg by mouth once daily. cyanocobalamin/folic ac/vit B6 (HOMOCYSTEINE FORMULA ORAL) Take by mouth once daily. 2 capsules (Patient not taking: Reported on 08/08/2022) Lactobacillus acidophilus (PROBIOTIC ORAL) Take by mouth once daily. (Patient not taking: Reported on 08/08/2022) triamcinolone acetonide (KENALOG) 0.1 % cream Apply 1 application to affected area twice daily as needed (Avoid use on the face and eyelids). homeopathic drugs (PROSTATE ORAL) (Patient not taking: Reported on 08/08/2022) cholestyramine (QUESTRAN) 4 gram packet prn CYANOCOBALAMIN, VITAMIN B-12, (VITAMIN B-12 ORAL) Take by mouth once daily. (Patient not taking: Reported on 08/08/2022) No current facility-administered medications on file prior to visit. PAST MEDICAL HISTORY Diagnosis Date Abdominal aortic aneurysm without rupture (HCC) 03/11/[address] Singh Benign prostatic hyperplasia with urinary hesitancy 12/13/2019 Had 10h of urinary retention, Voided x2 since chang removed but small volume Begun on flomax 12/11 Obtain postvoid residual to ensure no overflow incontinence Bilateral carotid artery stenosis 08/20/2018 Celiac disease 08/31/2010 Disorders of bursae and tendons in shoulder region, unspecified 09/08/2013 Diverticulosis of large intestine Elevated hemoglobin A1c 02/10/2021 Hypertension, essential 02/02/2018 Internal hemorrhoids without mention of complication 05/05/2008 Mixed hyperlipidemia 11/30/2010 Peripheral vascular disease (HCC) 02/25/2016 Stage 3a chronic kidney disease (HCC) 02/10/2021 Stroke, Ischemic - Right Parietal, Right Temporal-Occipital, Middle Cerebral Peduncle AND Right Cerebellar 03/2023 Synovial cyst of right popliteal space 02/14/2022 Vitamin D deficiency 04/06/2009 PAST SURGICAL HISTORY Procedure Laterality Date ABD AORTA ANEURYSM REPAIR 11/2019 COLONOSCOPY FLX DX W/COLLJ SPEC WHEN PFRMD 03/23/2004 Colonoscopy COLONOSCOPY FLX DX W/COLLJ SPEC WHEN PFRMD 05/05/2008 Colonoscopy, repeat 10 yrs PAST SURGICAL HISTORY OF 04/14/2004 excision of lesion neck PAST SURGICAL HISTORY OF 02/21/1992 lesion removed from rectum Family History Problem Relation Age of Onset Stroke Father other (lupus) Sister Diabetes Brother Diabetes Brother Social History Tobacco Use Smoking status: Never Smokeless tobacco: Never Substance Use Topics Alcohol use: No Drug use: Never EVALUATION Patient presents with: Established Patient 09/27/23 Kathy Huggins MD Last Visit on Apr 2023 Provider Bhavna Symptoms What is the severity of your symptoms? Bowels - still with bloating / diarrhea. Noting no blood at times. Some dairy via goat milk and grains. Given Charissa Food plan info last visit. Not on Yeast Formula as discussed. (more content not included)... [facility] 09-08-[facility]23 Note HNO ID: [id number] Author: India Woodson RN Service: ? Author Type: Registered Nurse Type: Progress Notes Filed: 09/08/2023 6:43 PM Note Text: [facility] Telephonic Outreach Provider Action/FYI Contacted for: Routine Telephonic Outreach Contact made with patient: Yes Patient identified by name and date of . Discussed care with caregiver and spouse Are you experiencing any new or worsening symptoms you need to talk about today? No Disease Specific Do you check your blood pressure at home? No Do you have new or worsening shortness of breath with activity? No Do you feel like you are dehydrated for any reason, including not being able to eat or drink normally, or having less urine/much darker urine than normal for you? No Do you check your daily weight at home? Yes, 150 pounds Have you noticed a sudden gain in weight greater than three pounds in a day or five pounds in a week? No - reviewed to call provider if gains weight as noted above Based on scuba instructor, the following disposition is advised: No symptoms or symptoms present, not severe. Routed to: No Action Needed VILMA Education Provided this Outreach: No Denies needs at this time Reminded patient to call office of PCP with questions or concerns India Woodson RN September 08, 2023 6:[address] [facility] 09-08-2023 History of Presen t illness Narrative [facility] Telephonic Outreach Provider Action/FYI Contacted for: Routine Telephonic Outreach Contact made with patient: Yes Patient identified by name and date of . Discussed care with caregiver and spouse Are you experiencing any new or worsening symptoms you need to talk about today? No Disease Specific Do you check your blood pressure at home? No Do you have new or worsening shortness of breath with activity? No Do you feel like you are dehydrated for any reason, including not being able to eat or drink normally, or having less urine/much darker urine than normal for you? No Do you check your daily weight at home? Yes, 150 pounds Have you noticed a sudden gain in weight greater than three pounds in a day or five pounds in a week? No - reviewed to call provider if gains weight as noted above Based on scuba instructor, the following disposition is advised: No symptoms or symptoms present, not severe. Routed to: No Action Needed VILMA Education Provided this Outreach: No Denies needs at this time Reminded patient to call office of PCP with questions or concerns India Woodson RN September 08, 2023 6:42 PM documented in this encounter [facility] 09-08-2023 Note Patient Outreach ([facility] [place] HEADINGS,SERGO Suárez ([id number]) 1935 M Date Time Provider Department 09/08/23 INDIA WOODSON [facility] [place] During your visit today, we recorded the following information about you: Weight 68 kg India Woodson RN 09/08/2023 6:43 PM Signed CDM Telephonic Outreach Provider Action/FYI Contacted for: Routine Telephonic Outreach Contact made with patient: Yes Patient identified by name and date of . Discussed care with caregiver and spouse Are you experiencing any new or worsening symptoms you need to talk about today? No Disease Specific Do you check your blood pressure at home? No Do you have new or worsening shortness of breath with activity? No Do you feel like you are dehydrated for any reason, including not being able to eat or drink normally, or having less urine/much darker urine than normal for you? No Do you check your daily weight at home? Yes, 150 pounds Have you noticed a sudden gain in weight greater than three pounds in a day or five pounds in a week? No - reviewed to call provider if gains weight as noted above Based on scuba instructor, the following disposition is advised: No symptoms or symptoms present, not severe. Routed to: No Action Needed VILMA Education Provided this Outreach: No Denies needs at this time Reminded patient to call office of PCP with questions or concerns India Woodson RN September 08, 2023 6:42 PM Allergies As of Date: 09/08/2023 Noted Allergy Reaction GLUTEN 09/23/2011 6 - Diarrhea Comments: Upset stomach Gas build up Date Reviewed: 08/21/2023 Reviewed by: Glenda Marshall RN - Fully Assessed Reason for Visit: Community Monitoring Outreach [Other] Cmt: [facility] Telephonic Outreach Prescriptions as of 09/08/2023 - hydrocortisone 2.5 % ointment Apply to itchy areas once daily - COQ10, UBIQUINOL, ORAL Take by mouth. - amLODIPine (NORVASC) 5 mg tablet Take 1 tablet in the AM and 1/2 tablet in the PM. - magnesium chloride (MAG64) [address] tablet TAKE 2 TABLETS BY MOUTH EVERY DAY - Yeast Formula ([employer]) Take 2 enteric-coated softgels between meals twice daily - atorvastatin (LIPITOR) 40 mg tablet Take 1 tablet by mouth daily at bedtime. - testosterone 100 mg/ml cream (CPD) Apply 0.5 mL to affected area once daily. - clopidogrel (PLAVIX) 75 mg tablet Take 1 tablet by mouth once daily. - tamsulosin (FLOMAX) 0.4 mg Take 1 capsule by mouth once daily. - metoprolol tartrate, short acting, (LOPRESSOR) 50 mg tablet Take 1 tablet by mouth twice daily. - cholecalciferol (VITAMIN D3) 5,000 unit tab Take 1 tablet by mouth once daily. Facility-Administered Medications as of 09/08/2023 - perflutren lipid microspheres 1.3 mL in NaCl (PF) 0.9% 10 mL injection (DEFINITY) - sodium chloride 0.9 % (flush) 10 mL (BD POSIFLUSH) Meds Comments as of 02/01/2021: Magnesium once daily, Maxxum 4 multi-vitamin po bid -(Maria Luisa Pulse NAC, CO-Q-10 + PQQ), Methyl-Folate - 400 mcg daily, , Aqua Micki HP9 - 1 tsp bid and JarroSil 4 mg daily. 02/01/21 Aqua Fora 2 tablespoons daily Problem List As Of Date 09/08/2023 Noted Resolved Diverticulosis of large intestine [K57.30] Diarrhea [R19.7] 05/05/2008 Internal hemorrhoids without mention of complic*05/05/2008 Vitamin D deficiency [E55.9] 04/06/2009 Celiac disease [K90.0] 08/31/2010 Mixed hyperlipidemia [E78.2] 11/30/2010 Right shoulder pain [M25.511] 09/08/2013 09/18/2014 Disorders of bursae and tendons in shoulder reg*09/08/2013 Peripheral vascular disease (HCC) [I73.9] 02/25/2016 Abdominal aortic aneurysm without rupture (HCC)*03/11/2016 Medicare annual wellness visit, subsequent [Z00*02/08/2017 Neck pain, chronic [M54.2, G89.29] 04/25/2017 Hypertension, essential [I10] 02/02/2018 Bilateral carotid artery stenosis [I65.23] 08/20/2018 Benign prostatic hyperplasia with urinary hesit*12/13/2019 Stage 3 chronic kidney disease (HCC) [N18.30] 02/10/2021 Elevated hemoglobin A1c [R73.09] 02/10/2021 Acute diarrhea [R19.7] 03/01/2021 Hyponatremia [E87.1] 03/01/2021 Hypokalemia [E87.6] 03/02/2021 Severe protein-calorie malnutrition (HCC) [E43] 03/04/2021 Synovial cyst of right popliteal space [M71.21] 02/14/2022 Nonrheumatic aortic valve insufficiency, modera*03/02/2023 Acute ischemic stroke (HCC) [I63.9] 04/04/2023 Rib fractures [S22.49XA] 04/04/2023 Traumatic pneumothorax [S27.0XXA] 04/04/2023 04/06/2023 Cerebrovascular accident (CVA) (HCC) [I63.9] 06/23/2023 Encounter Status:Closed by INDIA WOODSON on 09/08/[address] [facility] 08-21-2023 Note HNO ID: [id number] Author: Lesa Meraz MD Service: ? Author Type: Physician Type: Progress Notes Filed: 08/21/2023 2:18 PM Note Text: EST PATIENT LISA in Dermatology: 07/26/2022 Sergo Suárez Headings is a 88 year old male who presents today for Patient presents with: LESION, SKIN Current Treatment: Emu oil Past Treatment: Retinol History of nonmelanoma skin cancer: denies History of Melanoma: denies Family history of skin cancer: denies Dermatology History: Specialty Problems None Allergies: Gluten Past Medical History: PAST MEDICAL HISTORY Diagnosis Date Abdominal aortic aneurysm without rupture (HCC) 03/11/[address] Singh Benign prostatic hyperplasia with urinary hesitancy 12/13/2019 Had 10h of urinary retention, Voided x2 since chang removed but small volume Begun on flomax 12/11 Obtain postvoid residual to ensure no overflow incontinence Bilateral carotid artery stenosis 08/20/2018 Celiac disease 08/31/2010 Disorders of bursae and tendons in shoulder region, unspecified 09/08/2013 Diverticulosis of large intestine Elevated hemoglobin A1c 02/10/2021 Hypertension, essential 02/02/2018 Internal hemorrhoids without mention of complication 05/05/2008 Mixed hyperlipidemia 11/30/2010 Peripheral vascular disease (HCC) 02/25/2016 Stage 3a chronic kidney disease (HCC) 02/10/2021 Stroke, Ischemic - Right Parietal, Right Temporal-Occipital, Middle Cerebral Peduncle AND Right Cerebellar 03/2023 Synovial cyst of right popliteal space 02/14/2022 Vitamin D deficiency 04/06/2009 MEDS: Current Outpatient Medications on File Prior to Visit Medication Sig COQ10, UBIQUINOL, ORAL Take by mouth. amLODIPine (NORVASC) 5 mg tablet Take 1 tablet in the AM and 1/2 tablet in the PM. magnesium chloride (MAG64) [address] tablet TAKE 2 TABLETS BY MOUTH EVERY DAY Yeast Formula ([employer]) Take 2 enteric-coated softgels between meals twice daily (Patient not taking: Reported on 08/08/2023) atorvastatin (LIPITOR) 40 mg tablet Take 1 tablet by mouth daily at bedtime. testosterone 100 mg/ml cream (CPD) Apply 0.5 mL to affected area once daily. clopidogrel (PLAVIX) 75 mg tablet Take 1 tablet by mouth once daily. tamsulosin (FLOMAX) 0.4 mg Take 1 capsule by mouth once daily. metoprolol tartrate, short acting, (LOPRESSOR) 50 mg tablet Take 1 tablet by mouth twice daily. cholecalciferol (VITAMIN D3) 5,000 unit tab Take 1 tablet by mouth once daily. Current Facility-Administered Medications on File Prior to Visit Medication perflutren lipid microspheres 1.3 mL in NaCl (PF) 0.9% 10 mL injection (DEFINITY) sodium chloride 0.9 % (flush) 10 mL (BD POSIFLUSH) Review of systems NA Has pacemaker / defibrillator No Takes aspirin / anticoagulant daily Yes: Plavix Has valve disorders No Other problems elsewhere on skin No Glenda Marshall RN The above was entered by the nursing staff. I have reviewed the documentation and I concur. Lesa Meraz MD HPI: Chief Complaint lesion Location Left ear Duration 1 year Timing constant Severity mild Quality Dry, flakey Chief Complaint itching Location Entire body Duration 3 years Timing constant Severity mild Quality itching Modifying Factors: -itches all day long, not worse at night. Originally started as a rash on his back many years ago. Has used. Sarna without much relief. Physical Exam - Area(s) Examined: The pt is alert and oriented, in NAD. Skin examination of head/face preauricular areas was significant for: Items identified on Diagram above Scaly plaque left pinna and right pre-auricular cheek Component Latest Ref Rng AND Units 04/05/2023 04/24/2023 05/05/2023 WBC 3.70 - 11.00 k/uL 8.65 RBC 4.20 - 6.00 m/uL 4.09 (L) Hemoglobin 13.0 - 17.0 g/dL 12.7 (L) Hematocrit 39.0 - 51.0 % 35.7 (L) MCV 80.0 - 100.0 fL 87.3 MCH 26.0 - 34.0 pg 31.1 MCHC 30.5 - 36.0 g/dL 35.6 RDW-CV 11.5 - 15.0 % 14.3 Platelet Count 150 - 400 k/uL 200 MPV 9.0 - 12.7 fL 10.4 Neut% % 67.6 Abs Neut (ANC) 1.45 - 7.50 k/uL 5.84 Lymph% % 17.2 Abs Lymph 1.00 - 4.00 k/uL 1.49 Appling% % 11.0 Abs Appling <0.87 k/uL 0.95 (H) Eosin% % 3.6 Abs Eosin <0.46 k/uL 0.31 Baso% % 0.3 Abs Baso <0.11 k/uL 0.03 Immature Gran % % 0.3 IMMATURE GRANS (ABS) <0.10 k/uL 0.03 NRBC /100 WBC 0.0 Absolute nRBC <0.01 k/uL <0.01 DTYPE Auto Glucose 74 - 99 mg/dL 100 (H) BUN 9 - 24 mg/dL 21 Creatinine 0.73 - 1.22 mg/dL 1.33 (H) Sodium 136 - 144 mmol/L 137 Potassium 3.7 - 5.1 mmol/L 4.6 Chloride 97 - 105 mmol/L 101 CO2 22 - 30 mmol/L 26 Anion Gap 9 - 18 mmol/L 10 Calcium 8.5 - 10.2 mg/dL 9.4 eGFR >=60 mL/min/1.73mA? 52 (L) Hemoglobin A1C 4.3 - 5.6 % 6.5 (H) Estimated Average Glucose mg/dL 140 Component Latest Ref Rng AND Units 08/08/2022 TSH 0.270 - 4.200 mIU/L 2.950 Free T4 0.9 - 1.7 ng/dL 1.4 Free T3 2.3 - 4.1 pg/mL 2.4 Assessment / Plan: (L57.0) Actinic keratosis (pr (more content not included)... [facility] 08-11-2023 Miscellaneous Notes Spoke to pt in regards to below message, verbalized understanding Sent for scanning Plan for Dr. Nuñez. Reviewed [facility] 12-day event monitor results. Minimum heart rate 43 bpm average 62 bpm Max 176 bpm 4 beats of SVT, he currently takes metoprolol ventricular ectopy less than 1% of the time supraventricular ectopy less than 1% of the time no evidence of atrial fibrillation Please notify patient Please have records scanned into [facility] Bonnie Ross APRN.BUILDING SPECIALIST Received fax from [employer] for results for Holter Monitor worn from 04/25/2023-05/08/2023 LISA 06/23/2023 2024 On desk for review, will send for scanning after review Patient has been identified by name and date of : Yes Type of form: [facility] Holter Monitor Form received via: Fax Form has been forwarded to: ROLAND Smith documented in this encounter [facility] 08-08-2023 Instructions Vernell Martinez PA-C - 08/08/2023 10:15 AM EST Follow up with cardiology about heart monitor Continue plavix 75mg Follow up in 6 months documented in this encounter [facility] 08-08-2023 Note HNO ID: [id number] Author: Vernell Martinez PA-C Service: ? Author Type: Physician Winding Machine Operator Type: Progress Notes Filed: 08/08/2023 10:28 AM Note Text: ESTABLISHED PATIENT VISIT Last visit: 05/03/23 Assessment AND Plan: Sergo Rosas is a 88 year old right-handed male with a history of CVA, HLD, AAA, PVD, HTN, CKD stage 3. His examination demonstrates mild left sided weakness in the upper extremity. Visual deficits in the left peripheral, mild dysmetria with finger to nose testing on the left, minimally hyperreflexic on the left upper extremity. Patient with acute right-sided stroke on 04-01-2023 where he experienced left hand weakness. Patient denies any interventions while he was admitted. CTA head and neck did show mild carotid stenosis bilaterally, he is currently followed through vascular specialist for this as well as AAA. Has not seen a specialist since he was discharged. Currently taking Lipitor 40 mg, last LDL was 96. Patient also on blood pressure medications with blood pressure today at 133/68. Patient was put on dual antiplatelet therapy and is still taking both aspirin and Plavix at this time, notes that it was started while he was admitted and they are unsure when to stop it. It has been 21 days. As patient was on aspirin prior to the onset of his stroke, will continue with Plavix therapy, Plavix 75 mg daily for stroke prevention. Discussed with patient and family, they agree and understand. Patient currently having to go to therapy visit his home, notes that he is improving daily in regards to his weakness. On exam, note minimal decrease in strength to the left upper extremity, mild dysmetria with finger-nose testing. Encourage patient to continue regular exercise and strengthening. Discussed at length risk factors for stroke and to maximize prevention, patient and family agree and understand. Additionally, discussed increased bleeding risk while on Plavix, should patient hit his head or have any injury trauma was evaluated as there is a risk for intracranial bleed. Patient and family understand this. Regarding etiology of the stroke, patient does have history of mild carotid stenosis and is currently wearing a 14-day Holter monitor to evaluate for any arrhythmia. Echo did not show any signs of clot or PFO. Patient without previous history of stroke in the past, unlikely hypercoagulable disorder. Patient also found to have hyponatremia, was taking salt tablets daily and just finished his last dosage today. He is unsure if he should continue this therapy, will reach out to primary care. Patient also with left-sided visual field deficits in the periphery, would like to see an eye doctor, encouraged to do so to maximize vision and update prescription if necessary. Patient and family agreeable to treatment plan of care at this time, all questions were answered. Patient to follow-up in 3 months or sooner should any symptoms change or worsen. Sergo was seen today for new patient. CHIEF COMPLAINT: follow up HISTORY OF PRESENT ILLNESS: Sergo Rosas is a 88 year old male, There were no vitals taken for this visit. with a PMH significant for CVA, HLD, AAA, PVD, HTN, CKD stage 3. Last seen 05/03/23 for R CVA, was on ASA prior, will continue plavix. Was currently wearing a holter. Patient presents with for follow-up. Patient has been doing well since last visit, notes improvement in his vision as well as the strength on the left side. Notes that he saw an eye doctor and had a normal exam, there was concerns for some left peripheral vision loss but he states this is resolved. Has not been driving since last visit and would like to try again. No new symptoms, no falls, has been compliant with his Plavix. Notes that he did complete his heart monitor but his performance [employer] specialist has not been able to find the results, concern that it was lost in the mail. No palpitations, no new neurologic symptoms. Notes that he has been staying active, compliant with his statin medications, last A1c was 6.5. Follow with primary care, good blood pressure control. Drinking plenty of water throughout the day. REVIEW OF SYSTEMS GENERAL:No weight loss, malaise or fevers. HEENT:Negative for frequent or significant headaches, No changes in hearing or vision, no nose bleeds or other nasal problems NECK:Negative for lumps, goiter, pain and significant neck swelling RESPIRATORY: Negative for cough, wheezing or shortness of breath. CARDIOVASCULAR: Negative for chest pain, leg swelling or palpitations. GASTROINTESTINAL: Negative for abdominal discomfort, blood in stools or black stools or change in bowel habits GENITOURINARY: No history of dysuria, frequency or incontinence MUSCULOSKELETAL: Negative for joint pain or swelling, back pain or muscle pain. NEUROLOGIC:Negative for focal numbness or weakness, headaches and dizziness or syncope, vision changes, speech/languag changes (more content not included)... [facility] 08-08-2023 History of Presen t illness Narrative ESTABLISHED PATIENT VISIT Last visit: 05/03/23 Assessment & Plan: Sergo Rosas is a 88 year old right-handed male with a history of CVA, HLD, AAA, PVD, HTN, CKD stage 3. His examination demonstrates mild left sided weakness in the upper extremity. Visual deficits in the left peripheral, mild dysmetria with finger to nose testing on the left, minimally hyperreflexic on the left upper extremity. Patient with acute right-sided stroke on 04-01-2023 where he experienced left hand weakness. Patient denies any interventions while he was admitted. CTA head and neck did show mild carotid stenosis bilaterally, he is currently followed through vascular specialist for this as well as AAA. Has not seen a specialist since he was discharged. Currently taking Lipitor 40 mg, last LDL was 96. Patient also on blood pressure medications with blood pressure today at 133/68. Patient was put on dual antiplatelet therapy and is still taking both aspirin and Plavix at this time, notes that it was started while he was admitted and they are unsure when to stop it. It has been 21 days. As patient was on aspirin prior to the onset of his stroke, will continue with Plavix therapy, Plavix 75 mg daily for stroke prevention. Discussed with patient and family, they agree and understand. Patient currently having to go to therapy visit his home, notes that he is improving daily in regards to his weakness. On exam, note minimal decrease in strength to the left upper extremity, mild dysmetria with finger-nose testing. Encourage patient to continue regular exercise and strengthening. Discussed at length risk factors for stroke and to maximize prevention, patient and family agree and understand. Additionally, discussed increased bleeding risk while on Plavix, should patient hit his head or have any injury trauma was evaluated as there is a risk for intracranial bleed. Patient and family understand this. Regarding etiology of the stroke, patient does have history of mild carotid stenosis and is currently wearing a 14-day Holter monitor to evaluate for any arrhythmia. Echo did not show any signs of clot or PFO. Patient without previous history of stroke in the past, unlikely hypercoagulable disorder. Patient also found to have hyponatremia, was taking salt tablets daily and just finished his last dosage today. He is unsure if he should continue this therapy, will reach out to primary care. Patient also with left-sided visual field deficits in the periphery, would like to see an eye doctor, encouraged to do so to maximize vision and update prescription if necessary. Patient and family agreeable to treatment plan of care at this time, all questions were answered. Patient to follow-up in 3 months or sooner should any symptoms change or worsen. Sergo was seen today for new patient. CHIEF COMPLAINT: follow up HISTORY OF PRESENT ILLNESS: Sergo Rosas is a 88 year old male, There were no vitals taken for this visit. with a PMH significant for CVA, HLD, AAA, PVD, HTN, CKD stage 3. Last seen 05/03/23 for R CVA, was on ASA prior, will continue plavix. Was currently wearing a holter. Patient presents with for follow-up. Patient has been doing well since last visit, notes improvement in his vision as well as the strength on the left side. Notes that he saw an eye doctor and had a normal exam, there was concerns for some left peripheral vision loss but he states this is resolved. Has not been driving since last visit and would like to try again. No new symptoms, no falls, has been compliant with his Plavix. Notes that he did complete his heart monitor but his performance [employer] specialist has not been able to find the results, concern that it was lost in the mail. No palpitations, no new neurologic symptoms. Notes that he has been staying active, compliant with his statin medications, last A1c was 6.5. Follow with primary care, good blood pressure control. Drinking plenty of water throughout the day. REVIEW OF SYSTEMS GENERAL:No weight loss, malaise or fevers. HEENT:Negative for frequent or significant headaches, No changes in hearing or vision, no nose bleeds or other nasal problems NECK:Negative for lumps, goiter, pain and significant neck swelling RESPIRATORY: Negative for cough, wheezing or shortness of breath. CARDIOVASCULAR: Negative for chest pain, leg swelling or palpitations. GASTROINTESTINAL: Negative for abdominal discomfort, blood in stools or black stools or change in bowel habits GENITOURINARY: No history of dysuria, frequency or incontinence MUSCULOSKELETAL: Negative for joint pain or swelling, back pain or muscle pain. NEUROLOGIC:Negative for focal numbness or weakness, headaches and dizziness or syncope, vision changes, speech/languag changes - EXCEPT that as per HPI above. SKIN:Negative for lesions, rash, and itching. PSYCHIATRIC: Negative for sleep disturbance, mood disorder and recent psychosocial stressors. HEMATOLOGIC/LYMPHATIC/IMMUNOLOGI C:Negative for prolonged bleeding, bruising easily or swollen nodes. ENDOCRINE: Negative for cold or heat intolerance, polyuria, polydipsia and goiter. The remainder of the ROS was reviewed and is negative. LAB/IMAGING: Those performed since patient's last visit have been reviewed. A1c: 6.5 MEDICATIONS: COQ10, UBIQUINOL, ORAL^Take by mouth.^Disp: ^Rfl: amLODIPine (NORVASC) 5 mg tablet^Take 1 tablet in the AM and 1/2 tablet in the PM.^Disp: 135 tablet^Rfl: 3 magnesium chloride (MAG64) [address] tablet^TAKE 2 TABLETS BY MOUTH EVERY DAY^Disp: 60 tablet^Rfl: 3 atorvastatin (LIPITOR) 40 mg tablet^Take 1 tablet by mouth daily at bedtime.^Disp: 90 tablet^Rfl: 3 testosterone 100 mg/ml cream (CPD)^Apply 0.5 mL to affected area once daily.^Disp: ^Rfl: clopidogrel (PLAVIX) 75 mg tablet^Take 1 tablet by mouth once daily.^Disp: 30 tablet^Rfl: 11 metoprolol tartrate, short acting, (LOPRESSOR) 50 mg tablet^Take 1 tablet by mouth twice daily.^Disp: 180 tablet^Rfl: 3 cholecalciferol (VITAMIN D3) 5,000 unit tab^Take 1 tablet by mouth once daily.^Disp: ^Rfl: Yeast Formula ([employer])^Take 2 enteric-coated softgels between meals twice daily^Disp: 90 capsule^Rfl: (Patient not taking: Reported on 08/08/2023) tamsulosin (FLOMAX) 0.4 mg^Take 1 capsule by mouth once daily.^Disp: 90 capsule^Rfl: 3 HISTORIES PAST MEDICAL HISTORY Diagnosis Date Abdominal aortic aneurysm without rupture (HCC) 03/11/[address] Singh Benign prostatic hyperplasia with urinary hesitancy 12/13/2019 Had 10h of urinary retention, Voided x2 since chang removed but small volume Begun on flomax 12/11 Obtain postvoid residual to ensure no overflow incontinence Bilateral carotid artery stenosis 08/20/2018 Celiac disease 08/31/2010 Disorders of bursae and tendons in shoulder region, unspecified 09/08/2013 Diverticulosis of large intestine Elevated hemoglobin A1c 02/10/2021 Hypertension, essential 02/02/2018 Internal hemorrhoids without mention of complication 05/05/2008 Mixed hyperlipidemia 11/30/2010 Peripheral vascular disease (HCC) 02/25/2016 Stage 3a chronic kidney disease (HCC) 02/10/2021 Stroke, Ischemic - Right Parietal, Right Temporal-Occipital, Middle Cerebral Peduncle & Right Cerebellar 03/2023 Synovial cyst of right popliteal space 02/14/2022 Vitamin D deficiency 04/06/2009 FAMILY HISTORY Problem Relation Age of Onset Stroke Father other (lupus) Sister Diabetes Brother Diabetes Brother SOCIAL HISTORY Social History Tobacco Use Smoking status: Never Smokeless tobacco: Never Substance Use Topics Alcohol use: No Drug use: Never PHYSICAL EXAMINATION BP 118/64 Pulse 61 Resp 16 Wt 68.8 kg (151 lb 9.6 oz) SpO2 98% BMI 23.05 kg/m GENERAL EXAM: General appearance: NAD, pleasant. HEENT: NC/AT, nasal congestion absent, no oral lesions, membranes moist. NECK: No masses, supple. Lungs: Breathing comfortably Extr: Moves all extremities without difficulty Skin: Cool to touch. No rash. NEUROLOGICAL EXAM: General: Awake, alert, oriented x3 (person,place,time), speech fluent, no dysarthria; comprehension, naming, repetition intact. Short and penitentiary memory intact. CN: PERRL, f EOMI and without nystagmus, VFF to confrontation (hesitated in the left lower visual izaguirre but was correct), facial sensation and strength are normal and symmetric, hearing is intact to finger rub bilaterally, palate and tongue movements are intact and symmetric. SCM and trapezius strength normal. Motor: Normal tone, bulk. Minimal decrease strength in the left upper extremity, 4+ out of 5 throughout the upper extremity. Otherwise 5 out of 5 throughout. Reflexes: 2+/4 on the left bicep, otherwise 2 out of 4 throughout Coordination: FNF intact. No tremors. Sensation: Negative extinction to double simultaneous stimulation. No evidence of neglect. Gait: Narrow based and stable with normal stride and arm swing. Assessment and Plan: ASSESSMENT/PLAN: 1. 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 Left-sided weakness - ICD9: 728.87, ICD10: R53.1 3. Vision loss of left eye - ICD9: 369.8, ICD10: H54.62 Patient doing very well since last appointment, no new deficits and notes that his strength and vision is improving since last appointment. Notes that he saw an eye doctor and states his visual izaguirre were normal with normal exam otherwise. No new symptoms since last appointment, compliant with Plavix and statin medications, following with primary care for other risk factors as well. Did complete his heart monitor, states that they have not been able to find his results, is following with cardiology for this. Due to multiple cortical strokes, concern for atrial fibrillation or other arrhythmia contribute to patient's symptoms. We will have him reach out to cardiology for further monitoring of this. At this time, we will continue Plavix therapy, patient without any falls or risk for falling. Did discuss driving, patient did have some mild vision loss that was appreciable on last exam, but this is minimal today. Patient did hesitate in the left lower visual field but was still correct number of fingers that he saw. From a vision standpoint, as he saw an eye doctor and states that his visual exam was normal, we will have him resume driving. Discussed driving locally at first with someone in the car and adjusting as tolerated. No concerns for memory or any other contributing factor regarding his driving. Patient agrees and understands. Discussed managing risk factors for stroke with family medicine as well along with staying active increasing water intake. Patient agrees and understands. Patient and family agreeable to treatment plan of care at this time, all questions were answered. Patient to follow-up in 6 months or sooner should any symptoms change or worsen. Vernell Martinez PA-C I spent a total of 20 minutes on the date of the service which included preparing to see the patient, [id number] patient care, completing clinical documentation, obtaining and/or reviewing separately obtained history, performing a medically appropriate examination, and counseling and educating the patient/family/caregiver. This document has been created with the use of voice recognition technology. It may contain inaccuracies: (e.g. misspellings, inaccurate syntax or word sense) that have escaped review. 08/07/2023 PROMIS Global Health Physical Health Summary Physical health: Good Everyday physical activity, ability: Completely Fatigue: Mild Pain level: 0 No Pain General health: Good Social activities/roles, ability: Excellent Physical Health T-Score 54.1 (Very Good) Physical Health Percentile 66 PROMIS [employer] Mental Health Summary Quality of life: Very good Mental health (mood,thinking): Very good Social satisfaction: Excellent Emotional problems (anxious,depressed): Never Mental Health T-Score 59 (Excellent) Mental Health Percentile 82 Percentiles provide an indication of how a patient's score ranks in relation to the [place] general population. > 31st percentile is within normal limits or better *< 31st percentile is at least SD worse than population, which may be clinically relevant < 16th percentile is at least 1 SD worse than population and warrants attention Sleep Apnea Probability There is no data to display for this encounter documented in this encounter [facility] 08-08-2023 Note HNO ID: [id number] Author: Elkin Tapia LPN Service: ? Author Type: ? Type: Progress Notes Filed: 08/08/2023 10:28 AM Note Text: 08/07/2023 PROMIS Global Health Physical Health Summary Physical health: Good Everyday physical activity, ability: Completely Fatigue: Mild Pain level: 0 No Pain General health: Good Social activities/roles, ability: Excellent Physical Health T-Score 54.1 (Very Good) Physical Health Percentile 66 PROMIS Global Health Mental Health Summary Quality of life: Very good Mental health (mood,thinking): Very good Social satisfaction: Excellent Emotional problems (anxious,depressed): Never Mental Health T-Score 59 (Excellent) Mental Health Percentile 82 Percentiles provide an indication of how a patient's score ranks in relation to the [place] general population. > 31st percentile is within normal limits or better *< 31st percentile is at least ? SD worse than population, which may be clinically relevant < 16th percentile is at least 1 SD worse than population and warrants attention Sleep Apnea Probability There is no data to display for this encounter [facility] 08-02-2023 Evaluation note Diagnosis Stage 3 chronic kidney disease, unspecified whether stage 3a or 3b CKD (HCC)- Primary documented in this encounter [facility]11-07-2023 NoteHNO ID: [id number] Author: India Woodson RN Service: ? Author Type: Registered Nurse Type: Progress Notes Filed: 08/01/2023 3:32 PM Note Text: CDM Telephonic Outreach Provider Action/FYI Contacted for: Routine Telephonic Outreach Contact made with patient: Yes Patient identified by name and date of . Discussed care with caregiver and spouse, Betsey Are you experiencing any new or worsening symptoms you need to talk about today? No Disease Specific Do you check your blood pressure at home? No Do you have new or worsening shortness of breath with activity? No Do you feel like you are dehydrated for any reason, including not being able to eat or drink normally, or having less urine/much darker urine than normal for you? No Do you check your daily weight at home? No Based on scuba instructor, the following disposition is advised: No symptoms or symptoms present, not severe. Routed to: No Action Needed VILMA Education Provided this Outreach: Yes - CKD Denies needs at this time Reminded patient to call office of PCP with questions or concerns India Woodson RN August 01, 2023 3:30 [facility]11-07-2023 History of Present illness Narrative* India Woodson RN - 08/01/2023 8:47 AM EST [facility] Telephonic Outreach Provider Action/FYI Contacted for: Routine Telephonic Outreach Contact made with patient: Yes Patient identified by name and date of . Discussed care with caregiver and spouse, Betsey Are you experiencing any new or worsening symptoms you need to talk about today? No Disease Specific Do you check your blood pressure at home? No Do you have new or worsening shortness of breath with activity? No Do you feel like you are dehydrated for any reason, including not being able to eat or drink normally, or having less urine/much darker urine than normal for you? No Do you check your daily weight at home? No Based on scuba instructor, the following disposition is advised: No symptoms or symptoms present, not severe. Routed to: No Action Needed VILMA Education Provided this Outreach: Yes - CKD Denies needs at this time Reminded patient to call office of PCP with questions or concerns India Woodson RN August 01, 2023 3:30 PM [facility] NotePatient Outreach (ANDIE) HEADINGS,SERGO Suárez ([id number]) 1935 M Date Time Provider Department 08/01/23 INDIA WOODSON During your visit today, we recorded the following information about you: India Woodson RN 08/01/2023 3:32 PM Signed [facility] Telephonic Outreach Provider Action/FYI Contacted for: Routine Telephonic Outreach Contact made with patient: Yes Patient identified by name and date of . Discussed care with caregiver and spouse, Betsey Are you experiencing any new or worsening symptoms you need to talk about today? No Disease Specific Do you check your blood pressure at home? No Do you have new or worsening shortness of breath with activity? No Do you feel like you are dehydrated for any reason, including not being able to eat or drink normally, or having less urine/much darker urine than normal for you? No Do you check your daily weight at home? No Based on scuba instructor, the following disposition is advised: No symptoms or symptoms present, not severe. Routed to: No Action Needed VILMA Education Provided this Outreach: Yes - CKD Denies needs at this time Reminded patient to call office of PCP with questions or concerns India Woodson RN August 01, 2023 3:30 PM Allergies As of Date: 08/01/2023 Noted Allergy Reaction GLUTEN 09/23/2011 6 - Diarrhea Comments: Upset stomach Gas build up Date Reviewed: 06/26/2023 Reviewed by: Danuta Parry Ma - Fully Assessed Reason for Visit: Community Monitoring Outreach [Other] Cmt: CDM Telephonic Outreach Primary Visit Diagnosis:Stage 3 chronic kidney disease, unspecified whether stage 3a or 3b CKD ([facility]) [N18.30] Order(s):PT ED NEPHROLOGY [[id number]] Order #: [id number]: 1 Prescriptions as of 08/01/2023 - amLODIPine (NORVASC) 5 mg tablet Take 1 tablet in the AM and 1/2 tablet in the PM. - magnesium chloride (MAG64) [address] tablet TAKE 2 TABLETS BY MOUTH EVERY DAY - Yeast Formula (Integrative [employer]) Take 2 enteric-coated softgels between meals twice daily - atorvastatin (LIPITOR) 40 mg tablet Take 1 tablet by mouth daily at bedtime. - testosterone 100 mg/ml cream (CPD) Apply 0.5 mL to affected area once daily. - clopidogrel (PLAVIX) 75 mg tablet Take 1 tablet by mouth once daily. - tamsulosin (FLOMAX) 0.4 mg Take 1 capsule by mouth once daily. - metoprolol tartrate, short acting, (LOPRESSOR) 50 mg tablet Take 1 tablet by mouth twice daily. - cholecalciferol (VITAMIN D3) 5,000 unit tab Take 1 tablet by mouth once daily. Facility-Administered Medications as of 08/01/2023 - perflutren lipid microspheres 1.3 mL in NaCl (PF) 0.9% 10 mL injection (DEFINITY) - sodium chloride 0.9 % (flush) 10 mL (BD POSIFLUSH) Meds Comments as of 02/01/2021: Magnesium once daily, Maxxum 4 multi-vitamin po bid -(Maria Luisa Pulse NAC, CO-Q-10 + PQQ), Methyl-Folate - 400 mcg daily, , Aqua Micki HP9 - 1 tsp bid and JarroSil 4 mg daily. 02/01/21 Aqua Fora 2 tablespoons daily Problem List As Of Date 08/01/2023 Noted Resolved Diverticulosis of large intestine [K57.30] Diarrhea [R19.7] 05/05/2008 Internal hemorrhoids without mention of complic*05/05/2008 Vitamin D deficiency [E55.9] 04/06/2009 Celiac disease [K90.0] 08/31/2010 Mixed hyperlipidemia [E78.2] 11/30/2010 Right shoulder pain [M25.511] 09/08/2013 09/18/2014 Disorders of bursae and tendons in shoulder reg*09/08/2013 Peripheral vascular disease (HCC) [I73.9] 02/25/2016 Abdominal aortic aneurysm without rupture (HCC)*03/11/2016 Medicare annual wellness visit, subsequent [Z00*02/08/2017 Neck pain, chronic [M54.2, G89.29] 04/25/2017 Hypertension, essential [I10] 02/02/2018 Bilateral carotid artery stenosis [I65.23] 08/20/2018 Benign prostatic hyperplasia with urinary hesit*12/13/2019 Stage 3 chronic kidney disease (HCC) [N18.30] 02/10/2021 Elevated hemoglobin A1c [R73.09] 02/10/2021 Acute diarrhea [R19.7] 03/01/2021 Hyponatremia [E87.1] 03/01/2021 Hypokalemia [E87.6] 03/02/2021 Severe protein-calorie malnutrition (HCC) [E43] 03/04/2021 Synovial cyst of right popliteal space [M71.21] 02/14/2022 Nonrheumatic aortic valve insufficiency, modera*03/02/2023 Acute ischemic stroke (HCC) [I63.9] 04/04/2023 Rib fractures [S22.49XA] 04/04/2023 Traumatic pneumothorax [S27.0XXA] 04/04/2023 04/06/2023 Cerebrovascular accident (CVA) (HCC) [I63.9] 06/23/2023 Encounter Status:Closed by INDIA WOODSON on 08/01/23[facility] 07-03-2023 History of Present illness Narrative* India Woodson RN - 07/03/2023 11:27 AM EDT [facility] Telephonic Outreach Provider Action/FYI Contacted for: Routine Telephonic Outreach Contact made with patient: Yes Patient identified by name and date of . Discussed care with caregiver and spouse Are you experiencing any new or worsening symptoms you need to talk about today? No Disease Specific Do you check your blood pressure at home? No Do you have new or worsening shortness of breath with activity? No Do you feel like you are dehydrated for any reason, including not being able to eat or drink normally, or having less urine/much darker urine than normal for you? No Do you check your daily weight at home? No Based on scuba instructor, the following disposition is advised: No symptoms or symptoms present, not severe. Routed to: No Action Needed VILMA Education Provided this Outreach: No Denies needs at this time Reminded patient to call office of PCP with questions or concerns India Woodson RN July 03, 2023 11:31 AM documented [facility] Miscellaneous Notes* Telephone Encounter - Rula Parks - 06/27/2023 11:36 AM EDT Phoned Luz Marina at [facility] cardiovascular and she will look into and this nurse will call her back at ext [phone]. Rula Parks LPN * Telephone Encounter - Rula Parks - 06/26/2023 4:13 PM EDT phoned [facility] medical records. They are unable to find results at this time regarding heart monitor results. They recommend calling back and speaking with cardiovascular dept Luz Marina Rosetta ext [phone]. Rula Parks LPN * Telephone Encounter - Kevin Bhagat APRN.CNP - 06/26/2023 3:48 PM EDT Please call [facility] and ask how to get the heart monitor results that were ordered by Dr. Braden. We have been in the system and cannot find any results for this at all. Per patient, it wasmailed to him, he wore for 2 weeks, and then mailed back. Patient requesting results along with hiscardiologist so very important to get them. Thank you Kevin Bhgaat APRN.PENNIE documented in this encounterEast [facility]09-29-2023 History of Present illness Narrative* Walter Nuñez MD - 06/23/2023 1:30 PM EDT Images from the original note were not included. [facility] [place] [facility] Department of Cardiovascular Medicine OUTPATIENT VISIT DATE 06/23/23 OUTPATIENT VISIT TYPE ESTABLISHED PRIMARY CARE PHYSICIAN: Kezia Dubose MD [id number] [facility] [id number] CHIEF COMPLAINT: Patient presents with: CARD Follow Up 6 Month HISTORY OF PRESENT ILLNESS: Sergo Rosas is a 88 year old male. Patient has a history of moderate to severe aortic insufficiency, abdominal aortic aneurysm status post repair, essential hypertension and multiple other medical problems. 03/02/23 The patient presents today as a consult regarding aortic insufficiency. He is currently denying anysignificant chest discomfort or unusual shortness of breath. He denies any palpitations, syncopal or near syncopal episodes. He denies any edema, orthopnea or PND. He has apparently not been followedby cardiology for his valvular disease. He does have significant peripheral arterial disease involving the abdominal aorta and carotids. He sees vascular for that. He does not report that his blood pressures have been somewhat elevated recently. They continue to be elevated here today. His heart rate is generally in the 50s. He is on metoprolol. 06/23/2023 Patient presents today for a follow-up visit. He suffered a stroke in March of this year. He was admitted to [facility]. 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 There was no arrhythmia identified. He was placed on both aspirin and Plavix for some time. Then his aspirin was discontinued. He has been continued on Plavix since then. He has had no further episodes. His episode consisted of left-sided weakness. He denies any palpitations around the time of the event. Since then he has had some swelling of his left lower extremity and none on the right. An echocardiogram done at that time revealed normal right and left ventricular systolic function with moderate aortic insufficiency. The patient had a 14-day monitor done as an outpatient. I am unable to find the results. We will contact [facility] for the results of the monitor. He states that he was not called with any results. He has been doing relatively well. With the help of physical therapy, he has made a good recovery. He currently denies any cardiac symptoms. PAST MEDICAL HISTORY Diagnosis Date Abdominal aortic aneurysm without rupture (HCC) 03/11/[address] Singh Benign prostatic hyperplasia with urinary hesitancy 12/13/2019 Had 10h of urinary retention, Voided x2 since chang removed but small volume Begun on flomax 12/11 Obtain postvoid residual to ensure no overflow incontinence Bilateral carotid artery stenosis 08/20/2018 Celiac disease 08/31/2010 Disorders of bursae and tendons in shoulder region, unspecified 09/08/2013 Diverticulosis of large intestine Elevated hemoglobin A1c 02/10/2021 Hypertension, essential 02/02/2018 Internal hemorrhoids without mention of complication 05/05/2008 Mixed hyperlipidemia 11/30/2010 Peripheral vascular disease (HCC) 02/25/2016 Stage 3a chronic kidney disease (HCC) 02/10/2021 Stroke, Ischemic - Right Parietal, Right Temporal-Occipital, Middle Cerebral Peduncle & Right Cerebellar 03/2023 Synovial cyst of right popliteal space 02/14/2022 Vitamin D deficiency 04/06/2009 PAST SURGICAL HISTORY Procedure Laterality Date ABD AORTA ANEURYSM REPAIR 11/2019 COLONOSCOPY FLX DX W/COLLJ SPEC WHEN PFRMD 03/23/2004 Colonoscopy COLONOSCOPY FLX DX W/COLLJ SPEC WHEN PFRMD 05/05/2008 Colonoscopy, repeat 10 yrs PAST SURGICAL HISTORY OF 04/14/2004 excision of lesion neck PAST SURGICAL HISTORY OF 02/21/1992 lesion removed from rectum Social History Tobacco Use Smoking status: Never Smokeless tobacco: Never Substance Use Topics Alcohol use: No Drug use: Never FAMILY HISTORY Problem Relation Age of Onset Stroke Father other (lupus) Sister Diabetes Brother Diabetes Brother ALLERGIES: ALLERGIES Allergen Reactions Gluten Diarrhea Upset stomach Gas build up MEDICATIONS: magnesium chloride (MAG64) [address] tablet^TAKE 2 TABLETS BY MOUTH EVERY DAY^Disp: 60 tablet^Rfl: 3 Yeast Formula ([employer])^Take 2 enteric-coated softgels between meals twice daily^Disp: 90 capsule^Rfl: atorvastatin (LIPITOR) 40 mg tablet^Take 1 tablet by mouth daily at bedtime.^Disp: 90 tablet^Rfl: 3 testosterone 100 mg/ml cream (CPD)^Apply 0.5 mL to affected area once daily.^Disp: ^Rfl: clopidogrel (PLAVIX) 75 mg tablet^Take 1 tablet by mouth once daily.^Disp: 30 tablet^Rfl: 11 amLODIPine (NORVASC) 5 mg tablet^Take 1 tablet in the AM and 1/2 tablet in the PM.^Disp: ^Rfl: tamsulosin (FLOMAX) 0.4 mg^Take 1 capsule by mouth once daily.^Disp: 90 capsule^Rfl: 3 metoprolol tartrate, short acting, (LOPRESSOR) 50 mg tablet^Take 1 tablet by mouth twice daily.^Disp: 180 tablet^Rfl: 3 cholecalciferol (VITAMIN D3) 5,000 unit tab^Take 1 tablet by mouth once daily.^Disp: ^Rfl: QUEtiapine (SEROQUEL) 25 mg tablet^Take 12.5 mg by mouth daily at bedtime.^Disp: ^Rfl: (Patient nottaking: Reported on 06/23/2023) acetaminophen (TYLENOL) 500 mg tablet^Take 1 tablet by mouth every 6 hours as needed for pain.^Disp: ^Rfl: (Patient not taking: Reported on 05/15/2023) aspirin 81 mg chewable tablet^1 tablet by ORAL/FEEDING TUBE route once daily for 15 days.^Disp: ^Rfl: 0 (Patient not taking: Reported on 06/23/2023) REVIEW OF SYSTEMS: A complete review of systems was obtained and is remarkable for that noted above. The remaining systems are unremarkable. I personally interviewed, confirmed and edited the above information if obtained by others. PHYSICAL EXAMINATION: BP 146/63 (BP Site: Right Arm, BP Position: Sitting, BP Cuff Size: Regular Adult) Pulse 60 Wt 68.5 kg (151 lb 1.9 oz) BMI 22.98 kg/m General: Well appearing, in no acute distress. Eyes: Conjunctiva normal, sclera normal Neck: No jugular venous distention, no palpable thyromegaly. Heart: Regular rhythm, S1, S2 normal, no S3, no S4. No murmur. No carotid bruits. Respiratory: Clear to auscultation bilaterally. Good respiratory effort. GI: Soft, nontender, bowel sounds normal, no palpable hepatosplenomegaly. Extremities: Normal pulses in distal lower extremities. Mild left lower extremity edema. No edema on the right. Neuro: Alert, cooperative with no focal deficit. Psych: Pleasant and cooperative. Skin: No rashes or wounds. CARDIOVASCULAR MEDICINE TESTING: LV Ejection Fraction (%) Date Value 04/03/2023 72 12/05/2019 63 Last ECHO Result Conclusion ECHO Collected: 04/03/2023 1:11 PM (Final result) Impression: CONCLUSIONS: - Exam indication: Stroke - The left ventricle is normal in size. There is moderate concentric left ventricular hypertrophy. Left ventricular systolic function is hyperdynamic. EF = 72 5% (2D biplane) Left ventricular diastolic function was not evaluated due to >2+ AI. - The right ventricle is normal in size. Right ventricular systolic function is normal. - There is moderate (2+) aortic valve regurgitation. No PFO on bubble contrast injection - Exam was compared with the prior echocardiographic exam performed on 05/13/21. * * * Final * * * Last EKG Result Conclusion ECG COMPLETE Collected: 03/02/2023 2:07 PM (Final result) Impression: SINUS BRADYCARDIA NONSPECIFIC ST ABNORMALITY ABNORMAL ECG Confirmed by WALTER NUÑEZ M.D. ([id number]) on 03/02/2023 4:55:08 PM LABS: Sodium Date Value 05/05/2023 137 mmol/L 04/05/2023 128 mmol/L 05/14/2021 139 MMOL/L 05/13/2021 138 MMOL/L Potassium Date Value 05/05/2023 4.6 mmol/L 04/05/2023 4.6 mmol/L 05/14/2021 3.8 MMOL/L 05/13/2021 3.9 MMOL/L BUN Date Value 05/05/2023 21 mg/dL 04/05/2023 31 mg/dL 04/02/2023 17 mg/dL 04/01/2023 21 mg/dL 05/14/2021 21 MG/DL 05/13/2021 28 MG/DL 05/12/2021 39 MG/DL 05/11/2021 33 MG/DL Creatinine Date Value 05/05/2023 1.33 mg/dL 04/05/2023 1.27 mg/dL 04/02/2023 1.11 mg/dL 04/01/2023 1.31 mg/dL 05/14/2021 1.20 MG/DL 05/13/2021 1.25 MG/DL 05/12/2021 1.71 MG/DL 05/11/2021 1.76 MG/DL Creatinine (POCT) (mg/dL) Date Value 02/13/2023 1.40 Magnesium Date Value 04/01/2023 1.9 mg/dL 05/13/2021 2.0 MG/DL 05/12/2021 1.5 MG/DL Hemoglobin Date Value 04/05/2023 12.7 g/dL 04/04/2023 12.6 g/dL 05/14/2021 10.7 G/DL 05/13/2021 13.1 G/DL No results found for: PROBNP No results found for: HSTNT Cholesterol, Total (mg/dL) Date Value 04/01/2023 146 02/21/2019 139 Total Cholesterol, Nonfasting (mg/dL) Date Value 02/10/2021 129 HDL Cholesterol (mg/dL) Date Value 04/01/2023 40 02/21/2019 32 HDL Cholesterol, Nonfasting (mg/dL) Date Value 02/10/2021 29 Triglyceride (mg/dL) Date Value 04/01/2023 50 02/21/2019 57 Triglycerides, Nonfasting (mg/dL) Date Value 02/10/2021 66 LDL Cholesterol (mg/dL) Date Value 04/01/2023 96 02/21/2019 96 LDL Cholesterol, Nonfasting (mg/dL) Date Value 02/10/2021 87 TSH Date Value 08/08/2022 2.950 mIU/L 11/30/2017 3.19 IU/ml 02/25/2016 2.390 uU/mL ECG 04/22/2023 US Carotid Bilat 02/14/2022 IMPRESSION Compared to prior study of 08/20/2018, no significant change. RIGHT SIDE Common carotid artery: Plaque visualized without evidence of hemodynamically significant stenosis. Internal carotid artery: 20-39% stenosis. Vertebral artery: Patent and antegrade flow noted. LEFT SIDE Common carotid artery: Plaque visualized without evidence of hemodynamically significant stenosis. Internal carotid artery: 20-39% stenosis. Vertebral artery: Patent and antegrade flow noted. ECG 03/02/2023: Sinus bradycardia, 57 bpm, nonspecific ST changes. Echo 05/13/2021: Interpretation Summary 1. Moderate to severe LVH with basal septal hypertrophy of 1.7 cm. 2. Normal LV systolic function with EF around 55 to 60% 3. Grade 2 diastolic dysfunction 4. Moderate to severe AI 5. Mild MR and TR 6. Mild to moderate PI 7. Moderate MAC 8. Mild left atrial dilatation. IMPRESSION: 1. Nonrheumatic aortic valve insufficiency, moderate to severe, LVEF 55 to 60%, LVEDD 50 mm. - ICD9: 424.1, ICD10: I35.1 (primary diagnosis), moderate aortic insufficiency on echo March 2023. Stable. 2. Hypertension, essential - ICD9: 401.9, ICD10: I10, minimally elevated blood pressure here today.Monitor blood pressure at home. 3. Mixed hyperlipidemia - ICD9: 272.2, ICD10: E78.2, on cholestyramine as needed. Low-cholesterol, low-fat diet. 4. Peripheral vascular disease (HCC) - ICD9: 443.9, ICD10: I73.9, involving carotids and abdominal aortic aneurysm, status post aneurysm repair, care per vascular. 5. CVA, uncertain etiology. Now on Plavix daily. Will obtain results from monitor. Unable to find the results in care everywhere. Patient was not called with results. PLAN: Clopidogrel 75 mg daily. Amlodipine 5 mg 1 every morning and 1/2 tablet every afternoon. Metoprolol SA 50 mg twice daily. Atorvastatin 40 mg nightly. Continue current medications. Will obtain records of monitor that was done at rehabilitation in [place]. Low cholesterol, low fat diet, Mediterranean type diet. Regular aerobic exercise as able. Monitor for any new symptoms. Follow up with us in 8 months or sooner if necessary. A copy of this note will be provided to the primary physician by way of shared medical record or via U.S. Mail. Thank you for allowing us to participate in the care of this very pleasant patient. Please free to contact us if we can be of any further assistance. Walter Nuñez MD, [facility] Department of Cardiovascular Medicine Heart [facility] V[facility] [place] [id number] Medical Decision Making: Problems: Moderate: 2+ stable chronic illnesses and New problem with uncertain prognosis Data: Unique test result(s) reviewed: 2 Risk: Moderate: Moderate risk from testing/treatment Medical Decision Making Level: 4 - Moderate documented in this encounterEast [facility] Hospital09-28-2023 Miscellaneous Notes* Telephone Encounter - Koki Bae RN - 06/22/2023 1:09 PM EDT LISA 03/02/2023 1. Nonrheumatic aortic valve insufficiency, moderate to severe, LVEF 55 to 60%, LVEDD 50 mm. - ICD9: 424.1, ICD10: I35.1 (primary diagnosis), will check echocardiogram in late May along with a follow-up visit to discuss the results. Will add amlodipine 5 mg daily for better blood pressure control along with his aortic insufficiency. Echo: 03/02/2023 * Telephone Encounter - Yuliana Smith - 06/22/2023 12:50 PM EDT Pt's called inquiring if the patient needs another echocardiogram done tomorrow since the patient just had one done in the summer. can be reached at [phone] documented in this encounterEast [facility] Hospital09-08-2023 History of Present illness Narrative* India Woodson RN - 06/02/2023 3:49 PM EDT [facility] Telephonic Outreach Provider Action/FYI Contacted for: Routine Telephonic Outreach Contact made with patient: Yes Patient identified by name and date of . Discussed care with caregiver and spouse Are you experiencing any new or worsening symptoms you need to talk about today? No Disease Specific Do you check your blood pressure at home? No Do you have new or worsening shortness of breath with activity? No Do you feel like you are dehydrated for any reason, including not being able to eat or drink normally, or having less urine/much darker urine than normal for you? No Do you check your daily weight at home? No Based on scuba instructor, the following disposition is advised: No symptoms or symptoms present, not severe. Routed to: No Action Needed VILMA Education Provided this Outreach: No Denies needs at this time Reminded patient to call office of PCP with questions or concerns India Woodson RN June 02, 2023 3:52 PM documented in this encounterEast [facility] Hospital09-05-2023 Miscellaneous Notes* Telephone Encounter - Rula Parks LPN - 05/30/2023 9:48 AM EDT Patient has been identified by name and date of : No Patient phones for refill(s): Requested Prescriptions Pending Prescriptions Disp Refills magnesium chloride (MAG64) [address] tablet [Pharmacy Med Name: MAG64 DR 64 MG TABLET] 60 tablet 3 Sig: TAKE 2 TABLETS BY MOUTH EVERY DAY Date of last office visit in primary care: 01/30/23 Last 2 Encounter Wt Readings: Date: Wt: 05/15/2023 65.8 kg (145 lb) 05/03/2023 67.6 kg (149 lb) Previous labs/tests for medication: Not applicable Please advise. Thank you. Rula Parks LPN documented in this encounterEast Liverpool City Hospital08-22-2023 History of Present illness Narrative* Kathy Huggins MD - 05/16/2023 10:29 AM EDT FUNCTIONAL MEDICINE FOLLOW-UP ASSESSMENT Patient: Sergo Rosas 65.8 kg (145 lb) 172.7 cm (5' 8 ) Body mass index is 22.05 kg/m . Resting Metabolic Rate: 1331 Waist measurement: No waist measurement recorded. BP: 140/55 ALLERGIES Allergen Reactions Gluten Diarrhea Upset stomach Gas build up Current Outpatient Medications on File Prior to Visit Medication Sig tamsulosin (FLOMAX) 0.4 mg Take 1 capsule by mouth once daily. metoprolol tartrate, short acting, (LOPRESSOR) 50 mg tablet Take 1 tablet by mouth twice daily. SprectraZyme Mcqueen 9x ES Take 1 tablet by mouth w MEALS. s-rmrmzayya-ikhystcf root extract-aloe leaf extract (GLUTAGENICS) [id number] powder Mix one teaspoon (4.33 g) with water three times daily (1 teaspoon = 3.5 grams L-glut) milk thistle seed extract 200 mg cap Take by mouth. cholecalciferol (VITAMIN D3) 5,000 unit tab Take 1 tablet by mouth once daily. ZINC ORAL Take 50 mg by mouth once daily. TESTOSTERONE, BULK, MISC Cream Aspirin 81 mg tab Take 1 tablet by mouth once daily. CandiBactin AR (Metagenics) One softgel three times daily with meals CandiBactin BR (Metagenics) Two tablets three times daily Biocidin Advanced Formula (FirstBest) Take 5 Drops by mouth three times daily. Atrantil One (2) capsule per day up to 3 x's a day with food. hydrOXYzine HCl (ATARAX) 25 mg tablet TAKE 1 TABLET BY MOUTH THREE TIMES DAILY NEEDED FOR ITCHING/RASH. turmeric (CURCUMIN MISC) selenium 200 mcg tablet Take 1 tablet by mouth once daily. Flaxseed Oil 1,000 mg cap Take by mouth. (Patient not taking: Reported on 08/08/2022) OTC PRODUCT Liver md 2 caps daily OTC PRODUCT Arterial protect one cap dialy OTC PRODUCT digestzymes-- pancreatic enzymes (Patient not taking: Reported on 08/08/2022) GLUTATHIONE ORAL Take by mouth. MAGNESIUM ORAL Take 600 mg by mouth once daily. Glutamine (L-GLUTAMINE) 500 mg cap Take by mouth once daily. ubidecarenone (COQ-10 ORAL) Take 200 mg by mouth once daily. VITAMIN K2 ORAL Take 550 mcg by mouth once daily. cyanocobalamin/folic ac/vit B6 (HOMOCYSTEINE FORMULA ORAL) Take by mouth once daily. 2 capsules (Patient not taking: Reported on 08/08/2022) Lactobacillus acidophilus (PROBIOTIC ORAL) Take by mouth once daily. (Patient not taking: Reported on 08/08/2022) triamcinolone acetonide (KENALOG) 0.1 % cream Apply 1 application to affected area twice daily as needed (Avoid use on the face and eyelids). homeopathic drugs (PROSTATE ORAL) (Patient not taking: Reported on 08/08/2022) cholestyramine (QUESTRAN) 4 gram packet prn CYANOCOBALAMIN, VITAMIN B-12, (VITAMIN B-12 ORAL) Take by mouth once daily. (Patient not taking: Reported on 08/08/2022) No current facility-administered medications on file prior to visit. PAST MEDICAL HISTORY Diagnosis Date Abdominal aortic aneurysm without rupture (HCC) 03/11/[address] Singh Benign prostatic hyperplasia with urinary hesitancy 12/13/2019 Had 10h of urinary retention, Voided x2 since chang removed but small volume Begun on flomax 12/11 Obtain postvoid residual to ensure no overflow incontinence Bilateral carotid artery stenosis 08/20/2018 Celiac disease 08/31/2010 Disorders of bursae and tendons in shoulder region, unspecified 09/08/2013 Diverticulosis of large intestine Elevated hemoglobin A1c 02/10/2021 Hypertension, essential 02/02/2018 Internal hemorrhoids without mention of complication 05/05/2008 Mixed hyperlipidemia 11/30/2010 Peripheral vascular disease (HCC) 02/25/2016 Stage 3a chronic kidney disease (HCC) 02/10/2021 Stroke, Ischemic - Right Parietal, Right Temporal-Occipital, Middle Cerebral Peduncle & Right Cerebellar 03/2023 Synovial cyst of right popliteal space 02/14/2022 Vitamin D deficiency 04/06/2009 PAST SURGICAL HISTORY Procedure Laterality Date ABD AORTA ANEURYSM REPAIR 11/2019 COLONOSCOPY FLX DX W/COLLJ SPEC WHEN PFRMD 03/23/2004 Colonoscopy COLONOSCOPY FLX DX W/COLLJ SPEC WHEN PFRMD 05/05/2008 Colonoscopy, repeat 10 yrs PAST SURGICAL HISTORY OF 04/14/2004 excision of lesion neck PAST SURGICAL HISTORY OF 02/21/1992 lesion removed from rectum Family History Problem Relation Age of Onset Stroke Father other (lupus) Sister Diabetes Brother Diabetes Brother Social History Tobacco Use Smoking status: Never Smokeless tobacco: Never Substance Use Topics Alcohol use: No Drug use: Never EVALUATION Patient presents with: Established Patient 05/16/2023 Kathy Huggins MD Last Visit on January 223 Provider Bhavna Symptoms What is the severity of your symptoms? Sustained CVA in March - rehab in [place]. Now living in [place] with . Still working on strengthening with ROM / function at this time . Due to CVA on Statinat this time Completed nutrEval January 2023 Kathy Huggins MD Last Visit on 10/12/22 Provider: Bhavna Symptoms What is the severity of your symptoms? Improved - Abdominal - noting less bloating. More form to stool than prior. Completed removal phaseof 5R (Xifax, Candibactin AR/BR and Biocidin). Noting use of glutagenics, Biohm and enzymes currenttime. Following the recommended food plan? Yes - minimal use of cruciferous. Keeping away from certain items - noting issue with worsening symptoms - Supplements Are you taking recommended supplements? Yes - as above. With Vit D, Zinc Sleep Habit Described the quality of your sleep Well. Noting 7 to 8 hours. Bowel Habits Do you have a daily bowel movement? Yes - at night and one in day. No blood or mucus. Weight Are you measuring your weight? Yes - steady. Holding at 148 lbs 10/12/2022 Kathy Huggins MD Last Visit on July 2022 Provider: Bhavna Symptoms What is the severity of your symptoms? Noting shift in health with COVID. No GI symptoms (URI symptoms) Noting bowel shifting from loose to formed with diet (see below). LArge amount of gas noted. Completed GI Effects for review this PM Following the recommended food plan? Not entirely - Need to establishment Noting range of food narrow Cereal, fruit, goat cheese, eggs, chicken), fruit (berries, banana), beets, protein ( Initial Visit 08/08/22 - Bhavna Patient presents with: New Patient Change In Bowel Habits Patient Goals: 1., Abdominal pain - noting 15 years with abdominal symptoms of loose stool and bloating. progressive Noting food sensitivity. Dx in 2011 with collagenous colitis . Noting in September 2021 passing of worm (brought into office) - use of Black Curtice and antiparasitic cleanse recommended by family member 2. Itching - noting long body - varying places - no rhyme or reason for location. Noting hot showers with some relief. Living in [place] from Jul to Dec then in [place]. Noting skin with rash along back at times. Noting no oral relief HPI: 87 y/o male with hx of HTN, BPH with LUTS (on Flomax) and IBS-D : FT. VAGINAL . NO complication Breast No sugar in diet. Born in [place] (grains / [place]) --> [place] --> [place] ([place] Toxins - none Elementary: No learning or behavioral issues. Rare tonsil reoccurrence infections. Middle: No recreational activities. HS: No work. Lifestyle and Exposure History: Diet- No gluten / grains (limited). Limiting lectins Meals - Breakfast -Rice chex - fruit. [place] sausage - Lunch - Salad with - Dinner - Beets, squash, fish / beef , eggs (pastured raised) Snack Coconut ice cream Drink - Water with lemon - + daily - Camomile tea. - Limiting coffee - Some juice ([place]) - no soda. Bowel Habits: Varies. [place] Type 5 to 7 (diet shifting?) Supplement? Frequency 3 to 6 times. Minimal mucus. No blood Sleep- 9 hours . Usually rested. Snoring. Onset - < 10 minutes Time Asleep - fragmented. Daytime Napping - sometimes. Exercise- hiking. 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 Tested. No electrolytes added back. Fish consumption Yes Mold Yes - prior home with some flooding with suspicion. Minimal at current home Chemical/Industrial/Pesticides Yes Chemical sensitivities Yes Foreign travel/Frequent airplane travel Yes - food poisoning Supplements: Current Outpatient Medications on File Prior to Visit Medication Sig metoprolol tartrate, short acting, (LOPRESSOR) 50 mg tablet Take 1 tablet by mouth twice daily. milk thistle seed extract 200 mg cap Take by mouth. turmeric (CURCUMIN MISC) selenium 200 mcg tablet Take 1 tablet by mouth once daily. OTC PRODUCT Liver md 2 caps daily OTC PRODUCT Arterial protect one cap dialy GLUTATHIONE ORAL Take by mouth. MAGNESIUM ORAL Take 600 mg by mouth once daily. Glutamine (L-GLUTAMINE) 500 mg cap Take by mouth once daily. ubidecarenone (COQ-10 ORAL) Take 200 mg by mouth once daily. VITAMIN K2 ORAL Take 550 mcg by mouth once daily. triamcinolone acetonide (KENALOG) 0.1 % cream Apply 1 application to affected area twice daily as needed (Avoid use on the face and eyelids). cholecalciferol (VITAMIN D3) 5,000 unit tab Take 1 tablet by mouth once daily. cholestyramine (QUESTRAN) 4 gram packet prn ZINC ORAL Take 50 mg by mouth once daily. TESTOSTERONE, BULK, MISC Cream Aspirin 81 mg tab Take 1 tablet by mouth once daily. Flaxseed Oil 1,000 mg cap Take by mouth. (Patient not taking: Reported on 08/08/2022) OTC PRODUCT digestzymes-- pancreatic enzymes (Patient not taking: Reported on 08/08/2022) tamsulosin (FLOMAX) 0.4 mg Take 1 capsule by mouth once daily. cyanocobalamin/folic ac/vit B6 (HOMOCYSTEINE FORMULA ORAL) Take by mouth once daily. 2 capsules (Patient not taking: Reported on 08/08/2022) Lactobacillus acidophilus (PROBIOTIC ORAL) Take by mouth once daily. (Patient not taking: Reported on 08/08/2022) homeopathic drugs (PROSTATE ORAL) (Patient not taking: Reported on 08/08/2022) CYANOCOBALAMIN, VITAMIN B-12, (VITAMIN B-12 ORAL) Take by mouth once daily. (Patient not taking: Reported on 08/08/2022) Review of Systems Constitutional: Negative for activity change, appetite change, fatigue and fever. HENT: Positive for dental problem. Negative for congestion, sinus pressure, sinus pain and trouble swallowing. Eyes: Positive for visual disturbance (glasses). Respiratory: Negative for shortness of breath. Cardiovascular: Negative for palpitations. Gastrointestinal: Positive for abdominal distention (1 hour after meal 0- use of Gas-X, bowel movement) and diarrhea. Negative for abdominal pain, nausea and vomiting. Genitourinary: Flow - reduced prior to flomax Musculoskeletal: Negative for arthralgias and myalgias. Skin: Positive for rash. Allergic/Immunologic: Positive for food allergies. Negative for environmental allergies. Psychiatric/Behavioral: Negative for hallucinations and sleep disturbance. The patient is not hyperactive. 05/15/23 1331 BP: 140/55 Pulse: (Abnormal) 55 Resp: 20 Temp: 36.6 C (97.8 F) SpO2: 98% Weight: 65.8 kg (145 lb) Height: 172.7 cm (5' 8 ) Physical Exam Vitals reviewed. Constitutional: Appearance: Normal appearance. HENT: Head: Normocephalic and atraumatic. Right Ear: Hearing and external ear normal. Left Ear: Hearing and external ear normal. Eyes: General: Lids are normal. Extraocular Movements: Extraocular movements intact. Musculoskeletal: Cervical back: No pain with movement. Neurological: Mental Status: He is alert. Psychiatric: Attention and Perception: Attention and perception normal. Mood and Affect: Mood normal. Speech: Speech normal. Behavior: Behavior normal. Thought Content: Thought content normal. Cognition and Memory: Cognition and memory normal. Judgment: Judgment normal. DIAGNOSIS/ASSESSMENT: B37.82 Candidal enteritis (primary encounter diagnosis) K59.89 Intestinal dysbiosis Z86.73 Hx of completed stroke Overall patient reports since last office visit sustained stroke which had him stay at [facility]. Following distant stint of rehabilitation he reports is doing well. Unfortunately sustained somefalls and fractures to ribs but does not appear to be having any issues at present time. He did complete his Nutri eval for review today. However, his primary focus is on his 's deteriorating heal th issue with her back. Agree with statin for risk reduciton - use of Yeast Formula for checking off D-arabinose. Given Charissa Food Plan Matrix Nodes ASSIMILIATION: Dysbiosis, Adverse Food Reaction , and Malabsorption GI Effects - Reviewed 10/12/22 Date Aug 2022 Infection Klebsiella 4+ Digestion PE 72 (low) Low fecal protein. Normal fecal fat Beta Glucoronidase 1019 Imbalance Epx - normal. sIgA < 150? Diversity/abundance Zone 2 Commensal bacteria colonies in top 5th% 02/15 high 07/18 (low or <dL) STRUCTURAL INTEGRITY: Cardiomyopathy and Intestinal Permeability (numerous food sensitivities) Aneurysm repair COMMUNICATION: Adrenal Dysfunction , Depression (Neurotransmitter Dysfunction) , and Anxiety (Neurotransmitter Dysfunction) TRANSPORT: Hypertension , Congestive Heart Failure , and Endothelial dysfunction DEFENSE AND REPAIR: Skin rash ENERGY: Fatigue / brain fog DETOXIFICATION: Exposure to heavy metals , Exposure to POP's, Mold Exposure, and Chemical Sensitivity FUNCTIONAL MEDICINE PLAN: Maintain statin at this time to lower your oxidized lipid risk on your NutrEval and history of stroke. For yeast - add Yeast Formula daily along with ideal diet With Charissa Food plan Functional Nutrition: per resourcing consultant (after Met[employer] performance to review)_ Review and implement diet factors recommended through nutritional visit - use your health online health and fitness coach fordiscussion on how to implement Sleep: Sleep hygeine - no bright lights or phones/laptops/TV an hour before bed. Exercise Prescription: Continue your current exercise as tolerated. Supplement Support Review supplements - Based upon your labs and progress I may further recommend you consider these items to supplement. Medication orders placed this encounter Yeast Formula ([employer]) Sig: Take 2 enteric-coated softgels between meals twice daily Dispense: 90 capsule Ordering Supplementation: We recommend ordering supplementation online from the [facility] as they are high quality therapeutic supplements. [facility] offers an easy to use, convenient way to order supplementation recommended by your provider through the [employer]. All of the products offered are considered high-quality, and adhere to specific criteria for quality and effectiveness including good manufacturing practices, use of clean products, free of fillers, binders, and other antigens. In addition, we follow third republican analysis for independent verification of active ingredients. Get started by following three easy steps: A. Visit the following webpage: https://Ingenuity Systems.OptiMine Software/ [place] DIGITAL MEDIA Statements on this site have not been evaluated by the Food and Drug Administration. B. Create an account: Enter your first name, last name, email address which will be your username Create password Select a referring physician from the dropdown box. If they are not listed, select other If you are a new patient, enter the following provider code: functional C. Order recommended supplementation! Enter the supplement name in the search box Add all supplements to your cart and proceed to checkout. Orders of $100 or more qualify for free shipping. *Please allow 5-7 business days for delivery. For issues with your MRN please call [phone] Stress Management St[employer] Neuro -new technology to use a wearable device to retrain brain and focus on nervous system reduction. To learn more of this technology by going to (bav-ify-mnzah) https://PLASTIQ/ Please look into this Heart Rate Variability BioFeedback Tool (www.heartmath.org). You can see the research that has been put into this very valuable tool under the Resources and Research tabs. This can be used as an jason on your smart phone.To use this technology will need to buy a sensor that plugs right into the phone for about $100. First, get one of the Heart Math booklets off Behavioral Recognition Systems thatfits your 'go to' emotion - Transforming Anger, Anxiety, Stress, Depression, or PTSD. Five minutes 3 times a day is more effective than 15 minutes in one sitting. A regular, daily meditation practice of at least 15-20 minutes will change your brain--as well as your genes! Preliminary studies demonstrate gene expression is modified in those who meditate regularly leading to down-regulation of pro- inflammatory genes. This results in reduced inflammation, as well as improvements in the body's response to stress via the hormone cortisol, in the intervention groups vs. the controls. Although more research is needed, these findings suggest a definite role for meditation in the treatment and prevention of chronic inflammatory conditions. Smart phone apps to begin a meditative practice: Headspace (free for first 10 days) Insight Meditation Timer- (Free)-Great all-around jason to use for guided meditations of many different types and lengths or just to use as a tool to time and track your meditation practice. Calm- (Free) Walking Meditations-($1.99)- Get your walk AND meditation done together. A good way to start out for individuals who feel they just can't sit still to begin a meditative practice. Vagal Tone Look at the following work on harnessing the relaxation response by the following providers (you should look at one which appeals to you fully) . --- Polyvagal theory (Richard Walker) https://www.Persystent Technologies.Amicus Therapeutics/ --- Dynamic Neural Retraining System - (Karlene Lynnper) https://retrainingClinicIQ.Amicus Therapeutics/karlene-hopper/ --- Fournier Program - (Drew Fournier) Https://www.[employer].Amicus Therapeutics/ Finding time for self (no multitasking) at this time to dedicate to breathing / relaxation process.Work on cultivating kevin! Future Plans (for provider use): I spent a total of 25 minutes on the date of the service which included preparing to see the patient, [id number] patient care, completing clinical documentation, obtaining and/or reviewing separately obtained history, counseling and educating the patient/family/caregiver, communicating with other HCPs (not separately reported), and independently interpreting results (not separately reported). Kathy Huggins MD documented [facility] Miscellaneous Notes* Telephone Encounter - Rula Rain CHICHI - 05/15/2023 8:43 AM EDT Patient has been identified by name and date of : No Patient phones for refill(s): Requested Prescriptions Pending Prescriptions Disp Refills atorvastatin (LIPITOR) 40 mg tablet Sig: Take 1 tablet by mouth daily at bedtime. Date of last office visit in primary care: 01/30/23 Last 2 Encounter Wt Readings: Date: Wt: 05/03/2023 67.6 kg (149 lb) 04/24/2023 67.6 kg (149 lb) Previous labs/tests for medication: Cholesterol: HDL Cholesterol (mg/dL) Date Value 04/01/2023 40 02/21/2019 32 HDL Cholesterol, Nonfasting (mg/dL) Date Value 02/10/2021 29 LDL Cholesterol (mg/dL) Date Value 04/01/2023 96 02/21/2019 96 LDL Cholesterol, Nonfasting (mg/dL) Date Value 02/10/2021 87 ALT (U/L) Date Value 04/02/2023 12 05/12/2021 9 Non HDL Cholesterol, Nonfasting (mg/dL) Date Value 02/10/2021 100 Non HDL Cholesterol (mg/dL) Date Value 04/01/2023 106 Please advise. Thank you. Rula Rain LPN * Telephone Encounter - Kaylin Wisdom - 05/12/2023 4:31 PM EDT Patient has been identified by name and date of : Yes Last office visit in this department: Visit date not found RX INSTRUCTIONS: Patient aware RX will be sent to pharmacy. No need to notify patient. Patient phones requesting refills as follows: Requested Prescriptions Pending Prescriptions Disp Refills atorvastatin (LIPITOR) 40 mg tablet Sig: Take 1 tablet by mouth daily at bedtime. Please review and advise. Kaylin Almeida documented in this encounterEast [facility]08-12-2023 Miscellaneous Notes* Telephone Encounter - Lucila Mathis MA - 05/06/2023 8:59 AM EDT Spoke with patient , notified of results as listed below, verbalized understanding of instructions given and will have patient keep appt with Kevin Bhagat in June. Lucila Mathis MA * Telephone Encounter - Kirstie Anguiano APRN.CNP - 05/06/2023 8:43 AM EDT Please reach out and inform patient that his lab results have returned. They are in line with what he has had in past. Sodium is normal. Please follow up with PCP. documented in this encounterEast [facility]08-11-[facility]23 History of Present illness Narrative* India Woodson RN - 05/05/2023 2:35 PM EDT CDM Telephonic Outreach Provider Action/FYI ADLs, Fall Risk Assessment & Goals updated Denies needs at this time Reminded patient to call office of PCP with questions or concerns Contacted for: Routine Telephonic Outreach Contact made with patient: Yes Patient identified by name and date of . Discussed care with caregiver and spouse Are you experiencing any new or worsening symptoms you need to talk about today? No Disease Specific Do you check your blood pressure at home? No - phys Do you have new or worsening shortness of breath with activity? No Do you feel like you are dehydrated for any reason, including not being able to eat or drink normally, or having less urine/much darker urine than normal for you? No Do you check your daily weight at home? No Based on scuba instructor, the following disposition is advised: No symptoms or symptoms present, not severe. Routed to: No Action Needed VILMA Education Provided this Outreach: No Denies needs at this time Reminded patient to call office of PCP with questions or concerns India Woodson RN May 05, 2023 2:47 PM documented in this encounterEast [facility]08-11-2023 Miscellaneous Notes* Telephone Encounter - Danuta Parry Ma - 05/05/2023 12:41 PM EDT Peg notified. * Telephone Encounter - Kevin Bhagat APRN.CNP - 05/05/2023 12:34 PM EDT Yes, I agree to follow and sign orders. PCP is still officially Dr. Dubose but not in office due to out of town fellowship for the next year. Thank you Kevin Bhagat APRN.CNP * Telephone Encounter - Kaylin Ko RN - 05/05/2023 9:09 AM EDT Peg with [facility] calling to clarify a Home Health correction. [facility] had incorrect provider listed for patient. This has been corrected and Peg calling to clarify and confirm that Kevin PENNIE Bhagatderek follow patient for home health orders? Please call Peg with reply at [phone]. Thank you. documented in this encounterEast [facility]08-11-2023 Miscellaneous Notes* Telephone Encounter - Sunshine Kim LPN - 05/05/2023 9:06 AM EDT Patient Betsey returned call and went over notes below with understanding. was asking about his Magnesium rx, has no more refills on rx. He had been taking it in the rehab. Pending rx needs completed. Patient uses [facility] for his pharmacy. Please advise * Telephone Encounter - Danuta Parry Ma - 05/04/2023 1:13 PM EDT Left message for return call. * Telephone Encounter - Krystin Ortiz PA-C - 05/04/2023 12:48 PM EDT Please contact patient and advise him that I am ordering a repeat BMP to recheck his sodium levels.He can have this done at his convenience. Krystin Ortiz PA-C. 05/04/2023 documented in this encounterEast [facility]08-10-2023 History of Present illness Narrative* India Woodson RN - 05/04/2023 10:31 AM EDT CDM Telephonic Outreach Provider Action/FYI Left message on mobile phone Contacted for: Routine Telephonic Outreach Contact made with patient: No, left message. Hello Sergo! It's India Woodson, a Registered Nurse Store Mgr at [facility]. I work with your doctor, Kezia Johansen MD. I am calling today for a check in and I am sorry I missed you. If you have a question or concern, please reach out to your PCP, Kezia Dubose MD. I will reach out again tomorrow. I hope you are having a great day. India Woodson RN May 04, 2023 3:44 PM CDM Telephonic Outreach Provider Action/FYI Left message on home phone Contacted for: Routine Telephonic Outreach Contact made with patient: No, left message. Heljavid Sergo! It's India Woodson, a Registered Nurse Store Mgr at [facility]. I work with your doctor, Kezia Johansen MD. I am calling today for a check in and I am sorry I missed you. If you have a question or concern, please reach out to your PCP, Kezia Dubose MD. I will reach out again tomorrow. I hope you are having a great day. India Woodson RN May 04, 2023 3:41 PM documented in this encounterEast [facility]08-09-2023 Instructions* Patient Instructions* Vernell Martinez PA-C - 05/03/2023 9:40 AM EDT Continue plavix therapy daily (this increases your risk for bleeding) Monitor risk factors noted below with primary care. Follow up in three months General guidelines for stroke risk factor management, if present Hypertension Target blood pressure <140/90, <130/80 for high risk; normal is 120/80 Hyperlipidemia Target total cholesterol < 200 Target LDL <100, < 70 for high risk Target HDL >45 for men, >55 for women Target triglycerides <150 Diabetes Target HgbA1c <7% Smoking Target is smoking cessation Physical inactivity Target is exercise at least 3 times per week Target waist circumference, in inches is <35 for women and <40 for men documented in this encounterEast [facility]08-09-2023 History of Present illness Narrative* Vernell Martinez PA-C - 05/03/2023 9:25 AM EDT Images from the original note were not included. Neurology Outpatient Clinic Date: May 03, 2023 Patient Name: Sergo Rosas Referring physician: No referring provider defined for this encounter. Primary physician: Kezia Dubose [address] [place] [address] Reason for Evaluation: Stroke/TIA Subjective HPI Sergo Rosas is a 88 year old right-handed male with history of CVA, HLD, AAA, PVD, HTN, CKD stage 3 who presents for evaluation of stroke follow up. Kezia Johansen MD is the PCP. Chart review: Hospital follow up for stroke on 04/01/23 and was admitted at [facility] until 04/06/23. Saw PCP 04/24/23 Advised by neurology to continue Plavix and Aspirin for 21 days, then stop aspirin and continue Plavix infrastructure analyst. Patient needs a refill today. He is currently on Lipitor 40 mg once daily.He is also taking Norvasc and Amlodipine. Being sent senior technologist to rule out arrhythmia. MRI on04/03/23 showing acute right parietal infarct. CTA head and neck show no large vessel occlusion or stenosis (mild carotid bilaterally). ECHO shows moderate left ventricular hypertrophy, normal right ventricle. Moderate aortic valve regurg. No PFO. Follows with vascular surgery for carotid artery stenosis. Patient states that on 04-01-2023 he was hiking with his and was adjusting his glasses when he suddenly noticed decrease in dexterity of the left hand. This persisted, they went home and when he went home they decided to go to the emergency department. Patient was admitted for observation after CT of the brain was normal, scheduled to have MRI of the brain. While he was admitted, he was brushing his teeth and became acutely dizzy. This caused him to fall and fractured 3 ribs on the left side, sustained head injury. Notes he is recovering well from this injury, no longer using lidocaine patches for his rib fractures. On 04-03-2023, MRI showed acute right parietal infarct, CTA head and neckshowed mild stenosis of the carotids bilaterally but no other occlusion intracranially. Echo showedmoderate left ventricular hypertrophy and moderate atrial regurgitation, followed by cardiology forthis. Patient currently wearing 14-day heart monitor and scheduled follow-up with cardiology after this. Patient notes that since his stroke he has slowly been improving in terms of strength and feels that his strength is back to normal, however states that he still seems to have some weaknesson the left side. Notes that he primarily has weakness in the upper extremity, does not note much weakness in the left leg. Also notes some left visual field deficits in the peripherals. No double vision, no vision loss, no blurred vision. Patient was instructed to see an eye doctor from primary care but has yet to do so. Patient currently having physical therapist visit his home and working on his strength. Notes that he was in physical therapy at [facility] for a total of 13 days prior to being discharged. Patient has been on dual antiplatelet therapy since his admission, this is over 21 days. Was on aspirin prior to the onset of stroke, was instructed to switch to Plavix after 21 days. Patient states he has no history of stroke in the past, and took aspirin as a preventative. Does note family history of stroke with his father. Patient does not smoke, no history of clotting disorder, is very active. Has been using a cane since his stroke, but states that he often times will not need it and only uses it when he leaves the house. Patient does note that he sees a vascular specialist due to his history of AAA, was not told to follow-up until next year. Patient and family to endorse a few episodes of vomiting, the last episode he went to the emergencydepartment and repeat CT of the head was normal at [facility], records not available. Believes that he threw up because he took some many medications at once on empty stomach. Patienthas been on salt tablets for hyponatremia and took his last pain today, unsure if he should continue this therapy. Labs/Imaging MRI brain W/WO 04/03/23 IMPRESSION: Acute right parietal infarct with suspected minimal petechial hemorrhage. Subacute and chronic infarcts as described. CTA head and neck 04/01/23 IMPRESSION: No large vessel occlusion or high-grade stenosis. Arterial blood flow was measured to detect acute large vessel occlusion by computer aided detection software: Not Performed. Concordance between software and imaging review: Not Applicable. Medications: Current Outpatient Medications Medication Sig Dispense Refill QUEtiapine (SEROQUEL) 25 mg tablet Take 12.5 mg by mouth daily at bedtime. testosterone 100 mg/ml cream (CPD) Apply 0.5 mL to affected area once daily. clopidogrel (PLAVIX) 75 mg tablet Take 1 tablet by mouth once daily. 30 tablet 11 amLODIPine (NORVASC) 5 mg tablet Take 1 tablet in the AM and 1/2 tablet in the PM. acetaminophen (TYLENOL) 500 mg tablet Take 1 tablet by mouth every 6 hours as needed for pain. atorvastatin (LIPITOR) 40 mg tablet Take 1 tablet by mouth daily at bedtime. lidocaine (SALONPAS) 4 % patch Apply 1 Patch as directed once daily. Reinforce with abd for splinting ribs 0 aspirin 81 mg chewable tablet 1 tablet by ORAL/FEEDING TUBE route once daily for 15 days. 0 tamsulosin (FLOMAX) 0.4 mg Take 1 capsule by mouth once daily. 90 capsule 3 metoprolol tartrate, short acting, (LOPRESSOR) 50 mg tablet Take 1 tablet by mouth twice daily. 180tablet 3 cholecalciferol (VITAMIN D3) 5,000 unit tab Take 1 tablet by mouth once daily. Current Facility-Administered Medications Medication Dose Route Frequency Provider Last Rate Last Admin perflutren lipid microspheres 1.3 mL in NaCl (PF) 0.9% 10 mL injection (DEFINITY) INTRAVENOUS DIRECTED PRWalter Hernández MD sodium chloride 0.9 % (flush) 10 mL (BD POSIFLUSH) 10 mL INTRAVENOUS DIRECTED PRWalter Hernández MD ROS ROS: His ROS was positive for that mentioned in the HPI. Otherwise a 10-point ROS was completed andwas negative. ALLERGIES Allergen Reactions Gluten Diarrhea Upset stomach Gas build up Past Medical History: PAST MEDICAL HISTORY Diagnosis Date Abdominal aortic aneurysm without rupture (HCC) 03/11/[address] Singh Benign prostatic hyperplasia with urinary hesitancy 12/13/2019 Had 10h of urinary retention, Voided x2 since chang removed but small volume Begun on flomax 12/11 Obtain postvoid residual to ensure no overflow incontinence Bilateral carotid artery stenosis 08/20/2018 Celiac disease 08/31/2010 Disorders of bursae and tendons in shoulder region, unspecified 09/08/2013 Diverticulosis of large intestine Elevated hemoglobin A1c 02/10/2021 Hypertension, essential 02/02/2018 Internal hemorrhoids without mention of complication 05/05/2008 Mixed hyperlipidemia 11/30/2010 Peripheral vascular disease (HCC) 02/25/2016 Stage 3a chronic kidney disease (HCC) 02/10/2021 Stroke, Ischemic - Right Parietal, Right Temporal-Occipital, Middle Cerebral Peduncle & Right Cerebellar 03/2023 Synovial cyst of right popliteal space 02/14/2022 Vitamin D deficiency 04/06/2009 Family History: FAMILY HISTORY Problem Relation Age of Onset Stroke Father other (lupus) Sister Diabetes Brother Diabetes Brother Also includes: father with stroke and dementia. Social History: Social History Tobacco Use Smoking status: Never Smokeless tobacco: Never Substance Use Topics Alcohol use: No Drug use: Never Hikes regularly, does not smoke Objective 05/03/23 0934 BP: 133/68 Pulse: (!) 58 Resp: 16 SpO2: 99% Weight: 67.6 kg (149 lb) Physical Examination General Appearance: Well appearing, alert, in no acute distress, well-hydrated, well nourished. Head: Normocephalic Pulm: Breathing comfortably Neck: Supple Psych: Cooperative, appropriate affect Neurological Examination: Mental Status: Alert and Oriented to Place, Person, Time and Situation and Patient follows commands.. Language: Is intact to Comprehension, Fluency and Repetition Cranial Nerves: CNII: Visual acuity normal, visual izaguirre intact on the right. Slight peripheral loss on the left. CNIII, IV, : Pupils equal, round and reactive to light, full extraoccular movements, without nystagmus CN V: Facial sensation intact bilaterally to fine touch CN VII: Facial muscles symmetric and strong CN VIII: Hears finger rub well bilaterally CN IX: Gag Reflex not examined CN X: Palate elevates symmetrically CN XI: Full strength shoulder shrug bilaterally CN XII: Tongue protrusion full and midline Non-Dilated Fundiscopic Examination: No papilledema Motor Exam: Tone - Normal Tone noted in all extremities Bulk - Normal bulk noted in all muscles tested. Inspection - Normal, no fasciculations or tremors noted. Power: Buyer Liaison strength 4+ on the left hand MUSCLES Upper Extremity RIGHT LEFT Deltoid 5/5 5/5 Biceps 5/5 5/5 Triceps 5/5 5/5 Wrist Extension 5/5 5/5 Wrist Flexion 5/5 5/5 Finger Abd 5/5 5/5 Finger Add 5/5 5/5 MUSCLES Lower Extremity RIGHT LEFT Hip Flexion 5/5 5/5 Hip Extension 5/5 5/5 BiFem (Knee Flex) 5/ 5/5 Quads (Knee Ext) 5/ 5/5 Gastroc (Plantflx) 5/ 5/5 TibAnt (Dorsiflx) 5/ 5/5 FlxHLong (Toe Flex) 5 5/5 ExtHLong (Toe Ext) 5/ 5/5 Sensory Examination Sensation is intact to light touch throughout Reflexes Right Left Bicep 2/4 2+/4 Tricep 2/4 2/4 BrRad 2/4 2/4 Knee 2/4 2/4 Ankle 2/4 2/4 Meyer Response Negative Negative Coordination: heel to perry intact, mild dysmetria with left finger to nose, intact on the right. Gait: Patient's gait is slowed, using cane due to mild left sided weakness Romberg: Negative DATA REVIEWED Actual films/image/tracing reviewed and summarized as follows: CT brain, CTA head and neck, MRI brain Old records reviewed and summarized as follows: Admission records, PCP Assessment/Plan Assessment & Plan: Sergo Rosas is a 88 year old right-handed male with a history of CVA, HLD, AAA, PVD, HTN, CKD stage 3. His examination demonstrates mild left sided weakness in the upper extremity. Visual deficits in the left peripheral, mild dysmetria with finger to nose testing on the left, minimally hyperreflexic on the left upper extremity. Patient with acute right-sided stroke on 04-01-2023 where he experienced left hand weakness. Patient denies any interventions while he was admitted. CTA head and neck did show mild carotid stenosis bilaterally, he is currently followed through vascular specialist for this as well as AAA. Has not kaiden specialist since he was discharged. Currently taking Lipitor 40 mg, last LDL was 96. Patient alsoon blood pressure medications with blood pressure today at 133/68. Patient was put on dual antiplatelet therapy and is still taking both aspirin and Plavix at this time, notes that it was started while he was admitted and they are unsure when to stop it. It has been 21 days. As patient was on aspirin prior to the onset of his stroke, will continue with Plavix therapy, Plavix 75 mg daily for stroke prevention. Discussed with patient and family, they agree and understand. Patient currently havingto go to therapy visit his home, notes that he is improving daily in regards to his weakness. On exam, note minimal decrease in strength to the left upper extremity, mild dysmetria with finger- nose testing. Encourage patient to continue regular exercise and strengthening. Discussed at length risk factors for stroke and to maximize prevention, patient and family agree and understand. Additionally,discussed increased bleeding risk while on Plavix, should patient hit his head or have any injury trauma was evaluated as there is a risk for intracranial bleed. Patient and family understand this. Regarding etiology of the stroke, patient does have history of mild carotid stenosis and is currently wearing a 14-day Holter monitor to evaluate for any arrhythmia. Echo did not show any signs of clot or PFO. Patient without previous history of stroke in the past, unlikely hypercoagulable disorder. Patient also found to have hyponatremia, was taking salt tablets daily and just finished his last dosage today. He is unsure if he should continue this therapy, will reach out to primary care. Patient also with left-sided visual field deficits in the periphery, would like to see an eye doctor, encouraged to do so to maximize vision and update prescription if necessary. Patient and family agreeable to treatment plan of care at this time, all questions were answered. Patient to follow-up in 3 months or sooner should any symptoms change or worsen. Sergo was seen today for new patient. Diagnoses and all orders for this visit: 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) Left-sided weakness He should return to see me in 3 months. I spent a total of 50 minutes on the date of the service which included preparing to see the patient, [id number] patient care, completing clinical documentation, obtaining and/or reviewing separately obtained history, performing a medically appropriate examination, counseling and educating the pat ient/family/caregiver, and ordering medications, tests, or procedures. Vernell Martinez PA-C [facility] Neurology This document has been created with the use of voice recognition technology. It may contain inaccuracies: (e.g. misspellings, inaccurate syntax or word sense) that have escaped review. documented in this encounterEast [facility] City Hospital08-08-2023 Miscellaneous Notes* Telephone Encounter - Marcelino Cadena RN - 05/02/2023 9:17 AM EDT Attempted to fax current med list to [employer], per Francia Smith, nurse catalytic case operator, request, nelly fax number, , did not work and sounded like a phone number. Left vm for Francia to let her know the fax number did not work. documented in this encounterEast [facility] City Hospital08-02-2023 Telephone encounter Note * Telephone Encounter - An Herrera - 04/26/2023 1:29 PM EDT Called patient and scheduled a sooner jason. With Michelle, stated that the patient was able to get in with ophthalmology on 04/24 [facility]08-02-2023 Miscellaneous Notes* Telephone Encounter - An Herrera - 04/26/2023 1:29 PM EDT Called patient and scheduled a sooner jason. With Michelle, stated that the patient was able to get in with ophthalmology on 04/24 * Telephone Encounter - Krystin Ortiz PA-C - 04/26/2023 9:00 AM EDT Please help patient facilitate a sooner appointment with neurology. I see where it was possible to Vernell Martinez for a sooner appointment. Also, please check with patient that he was able to see opthalmology. Thank you, Krystin Ortiz PA-C 04/26/2023 documented in this encounterCleveland [phone] Telephone encounter Note * Telephone Encounter - Krystin Ortiz PA-C - 04/26/2023 9:00 AM EDT Please help patient facilitate a sooner appointment with neurology. I see where it was possible to Vernell Martinez for a sooner appointment. Also, please check with patient that he was able to see opthalmology. Thank you, Krystin Ortiz PA-C 04/26/2023 [facility]08-01-2023 Miscellaneous Notes* Telephone Encounter - Lesa Ordonez - 04/25/2023 11:51 AM EDT The patient is scheduled with the provider on 06/09/23. * Telephone Encounter - Luz Pérez OCCA - 04/20/2023 12:28 PM EDT Fax received at Dr. Osman's [place] office from [facility]. Patient is being referred to Dr. Osman as a NEW patient for stroke for which he was seen at [facility] ER. Discharge Summary and Consultations in patients chart under scanned documents. Of note, Dr. Osman is scheduled out several months and Vernell Martinez, has sooner appointments available. This staff will route TE to JUAN PABLO Arthur d/t referral. KYM Gan documented in this encounterEast Liverpool City Hospital08-01-2023 Miscellaneous Notes* Telephone Encounter - Jolene Mcintosh APRN.CNP - 04/25/2023 9:48 AM EDT noted * Telephone Encounter - Kaylin Ko RN - 04/25/2023 8:25 AM EDT Sydney from Speech Therapy at [facility] reports that she completed the pt's speech therapy evaluation and no speech therapy is needed at this time. documented in this encounterEast Liverpool City Hospital07-27-2023 Miscellaneous Notes* Telephone Encounter - Barak Brooks APRN.CNS - 04/20/2023 12:56 PM EDT [place] [facility] * Telephone Encounter - Marcelino Cadena RN - 04/20/2023 12:05 PM EDT [place] from [facility] PT reporting PT POC. Will see pt 1 time per week for 1 week and then 2 times per week for 3 weeks for strength, gait, transfers, and balance. documented in this encounterEast Liverpool City Hospital07-26-2023 Miscellaneous Notes* Telephone Encounter - Kaylin Ko RN - 04/19/2023 1:50 PM EDT Gege at [facility] notified. Kaylin Ko RN * Telephone Encounter - Kingsley Bowling MD - 04/19/2023 1:37 PM EDT [facility] POC. PCP team will follow. * Telephone Encounter - Kaylin Ko RN - 04/19/2023 9:07 AM EDT Gege with [facility] calling and states patient will be discharging from [facility] today. Diagnosis are stroke and rib fractures from possible fall. Patient has orders for PT, OT and Speech and Gege asking if provider willing to follow patient for orders? Gege requesting response today, if possible. Pt's PCP team out of office today-will send message to Dr. Bowling who is covering today. Please call Gege at [phone]. Thank you. documented in this encounterEast Liverpool City Hospital07-14-2023 History of Present illness Narrative* Pepper Chavez RN - 04/07/2023 3:16 PM EDT [facility] ENROLLMENT Provider Action / FYI: - ckd, htn - spoke with - currently in a snf; potential discharge on 04/16 - spouse would appreciate outreaches after that Contact Made with Patient: Yes The patient was identified by Name and Date of . Discussed Care with: spouse Patient enrolled via: Telephonic Are you experiencing any new or worsening symptoms that you need to talk about today? No Pepper Chavez RN April 10, 2023 3:25 PM documented in this encounterEast [facility] City Hospital07-13-2023 NoteHNO ID: [id number] Author: Jen Loera RN Service: Nursing Author Type: Registered Nurse Type: Nursing Progress Note Filed: 04/06/2023 6:21 PM Note Text: Report called to nurse Gonsalez at rehab facility.[facility]07-13-2023 NoteHNO ID: [id number] Author: Pb Carmichael RN Service: Care Management Author Type: Registered Nurse Type: Care Mgt Progress Note Filed: 04/06/2023 2:47 PM Note Text: CARE MANAGEMENT DISCHARGE NOTE SERVICE DATE: April 06, 2023 SERVICE TIME: 1:26 PM Admission Date: 04/01/2023 LOS: 2 days Discharge Arrangement Services Arranged Acute Rehab Provider Name: [facility] Caregiver Assessment Transportation Arrangements Transportation Arrangements: Car Date of Trip: 04/06/23 Time of Trip: 1700 Destination: [facility]. Handoff Communication: Floor nurse to call N2N [phone] Additional Information: Plan for discharge today. Family will transport. His , son, and daughter are here. No other needs. Case closed. Discharge Information Row Name ED to Hosp-Admission (Current) from 04/01/2023 in MR [id number] TCU/MED Rehab Facility Agency [facility] Acute Rehab [phone] SIGNATURE: Pb Carmichael RN PATIENT NAME: Sergo Suárez Headings DATE: April 06, 2023 TIME: 1:26 PM CONTACT #: [phone] [facility] Hospital07-13-2023 NoteHNO ID: [id number] Author: Pb Carmichael RN Service: Care Management Author Type: Registered Nurse Type: Care Mgt Progress Note Filed: 04/06/2023 9:31 AM Note Text: CARE MANAGEMENT PROGRESS NOTE SERVICE DATE: 04/06/2023 SERVICE TIME: 9:31 AM LOS: 2 days IMM Follow Up Copy Given: Yes (Given 04/06/23 at 07:30 am) Copy given to:: Patient Tool Honing Machine Set Up Operator Tool Honing Machine Set Up Operator Name/Relationship: Betsey Brambila Method: In Person SIGNATURE: Pb Carmichael RN PATIENT NAME: Sergo Suárez Headings DATE: April 06, 2023 TIME: 9:31 AM PAGER/CONTACT #: [phone] Memorial Hospital07-13-2023 Note HNO ID: [id number] Author: Gunnar Garcia Service: Care Management Author Type: ? Type: Care Mgt Progress Note Filed: 04/06/2023 7:35 AM Note Text: [facility] PRECERT NOTE [employer] MED[employer] PPO approved Inpatient Rehab Facility for [facility] - SNF AND Acute Rehab [place]. Precert approved through 04/09/2023. SIGNATURE: Gunnar Garcia DATE: April 06, 2023 TIME: 7:35 AMWallowa Memorial Hospital07-12-2023 NoteHNO ID: [id number] Author: Pb Carmichael RN Service: Care Management Author Type: Registered Nurse Type: Care Mgt Progress Note Filed: 04/05/2023 12:09 PM Note Text: CARE MANAGEMENT PROGRESS NOTE SERVICE DATE: 04/05/2023 SERVICE TIME: 12:02 PM LOS: 1 day Patient presents with:Weakness, Fall the evening of 04/02/23 Rib fractures left 8-10 with associated left lateral thoracic pain primarily with getting in and out of bed I spoke with his and daughter in the room. The FOC is [facility], precert was started via [facility]. He was ordered a CT scan of the brain for some possible neuro changes. Will continue to follow. SIGNATURE: Pb Carmichael RN PATIENT NAME: Sergo Suárez Headings DATE: April 05, 2023 TIME: 12:02 PM PAGER/CONTACT #: [phone] Memorial Hospital07-12-2023 Note HNO ID: [id number] Author: Christine Barragan DO Service: Hospital Medicine Author Type: Physician Type: Progress Notes Filed: 04/05/2023 11:12 AM Note Text: INPATIENT PROGRESS NOTE SERVICE DATE: 04/05/2023 SERVICE TIME: 10:22 AM PRIMARY SERVICE: Hospitalist Subjective CHIEF COMPLAINT: Confusion INTERVAL HPI: Patient is feeling well overall and not noticing specific complaint nurse noticed confusion today started yesterday stated the patient was otherwise up out of bed and is not as active today Current Facility-Administered Medications Medication Dose Route Frequency amLODIPine 5 mg tab(s) (NORVASC) 5 mg ORAL DAILY metoprolol tartrate (short acting) 50 mg tab(s) (LOPRESSOR) 50 mg ORAL BID tamsulosin 0.4 mg cap(s) (FLOMAX) 0.4 mg ORAL DAILY NaCl 0.9% iv flush bag 20 mL INTRAVENOUS PRN clopidogrel 75 mg tab(s) (PLAVIX) 75 mg ORAL/FEEDING TUBE DAILY atorvastatin 40 mg tab(s) (LIPITOR) 40 mg ORAL/FEEDING TUBE AT BEDTIME pantoprazole DR 40 mg tab(s) (PROTONIX) 40 mg ORAL DAILY (6 AM) ondansetron (PF) 4 mg injection (ZOFRAN) 4 mg INTRAVENOUS q 6 H PRN aspirin 81 mg chewable tab(s) 81 mg ORAL/FEEDING TUBE DAILY sodium chloride 0.9 % (flush) 2-10 mL (BD POSIFLUSH) 2-10 mL INTRAVENOUS DIRECTED PRN And perflutren lipid microspheres 1.1 mg/mL 1.3 mL injection (DEFINITY) 1.3 mL INTRAVENOUS DIRECTED PRN methocarbamol 500 mg tab(s) (ROBAXIN) 500 mg ORAL BID gabapentin 300 mg cap(s) (NEURONTIN) 300 mg ORAL DAILY lidocaine 4 % 1 Patch (SALONPAS) 1 Patch TRANSDERMAL DAILY acetaminophen 500 mg tab(s) (TYLENOL) 500 mg ORAL q 6 HR oxyCODONE IR 2.5 mg tab(s) (ROXICODONE) 2.5 mg ORAL q 6 H PRN Objective PHYSICAL EXAM: BP 161/78 Pulse 53 Temp (Src) 97.3 (Temporal) Resp 18 Ht 5' 8 (1.73m) Wt 153 lb 3.2 oz (69.5kg) SpO2 91% BMI 23.30 kg/(m2). O2 Therapy: Room Air Physical Exam Performed GENERAL: Alert, no distress, cooperative, oriented to person place but not situation LUNGS: Lungs clear to auscultation, Good diaphragmatic excursion CARDIAC: Normal S1 and S2; no rubs, murmurs, or gallops ABDOMEN: Soft, nontender EXTREMITIES: Extremities normal, no deformities, edema, clubbing or skin discoloration. Good capillary refill., No ulcers, left-sided weakness NEURO: Grossly normal cognition, motor function, and cranial nerves III-XII, left-sided weakness DATA: Diagnostic tests reviewed for today's visit: Most recent labs and imaging results. Assessment/Plan Active Problems: Acute ischemic stroke with petechial conversion (HCC) (POA: Yes) Assessment AND Plan: Had complete hemianopsia noted and left arm drift noted on stroke care assessment yesterday, acute right parietal infarct and subacute right temporal occipital and middle cerebral peduncle and right cerebellar infarcts with suspected minimal petechial hemorrhage. Neurology cleared patient to continue aspirin and Plavix for the 21 days, rechecking CT of the brain without contrast due to reported worsening on nursing exam I have no comparison myself fortunately could not reach Belkis Oakes and I held a dose of Plavix in the meantime. Also recommending an event monitor to be ordered by his primary performance solutions specialist for continuity of care and no driving due to vision loss until cleared by his eye doctor, working on IRF placement Aortic insufficiency Monitor clinically for needs needing blood pressure control for optimization Normocytic anemia Stable at 12.7 today Rib fractures (POA: No) Assessment AND Plan: Trauma following incentive spirometry use optimizing Traumatic pneumothorax (POA: No) As above BPH Patient on tamsulosin, expectant management for needs in this regard as planned urinalysis this morning except for 1+ hemoglobin no symptoms Hypertension Patient on amlodipine 5 mg p.o. daily Medication and Non-Pharmacologic VTE Prophylaxis/Anticoagulants Anticoagulant AND Antiplatelet Medications (From admission, onward) Start Dose Route Frequency Last Action Ordered Stop 04/02/23 0900 aspirin 81 mg chewable tab(s) (aspirin non-enteric coated 81mg ORAL OR 300mg ID) 81 mg PO/FT DAILY Given, 04/04 0850 04/01/23 2155 -- 04/01/23 2200 clopidogrel 75 mg tab(s) (PLAVIX) 75 mg PO/FT DAILY Given, 04/04 85004/01/232154 -- 04/02/23 1800 activity - mobilize patient (vt,wv) VTE Prophylaxis: VTE prophylaxis appropriate SIGNATURE: Christine Barragan DO PATIENT NAME: Sergo Suárez Headings DATE: April 05, 2023 TIME: 11:11 [facility]07-11-2023 NoteHNO ID: [id number] Author: Walter Chávez MD Service: ? Author Type: Physician Type: Progress Notes Filed: 04/04/2023 6:48 PM Note Text: INPATIENT PROGRESS NOTE PRIMARY SERVICE: Hospitalist CHIEF COMPLAINT: Patient presents with: Weakness INTERVAL HPI: Continues to experience left lateral thoracic pain primarily with getting in and out of bed. No anginal chest pain, dyspnea, nausea, or vomiting. His as well as his daughter, Kesha, are at the bedside. BP 138/78 Pulse 80 Temp (Src) 98.6 (Oral) Resp 17 Ht 5' 8 (1.73m) Wt 152 lb 12.8 oz (69.3kg) SpO2 93% BMI 23.24 kg/(m2). O2 Therapy: Room Air PHYSICAL EXAM: General: Sitting up in bed, comfortable, nontoxic. Neurologic/psychiatric: Alert, normal affect, cranial nerves intact, mentating well HEENT: No trauma, moist mucous membranes, extraocular movements are intact, no scleral icterus Neck: Supple Respiratory: Normal breathing effort, no audible wheeze, no cough, no tachypnea Cardiovascular: Sinus on telemetry Gastrointestinal: No obvious significant distention, no vomiting, no hematemesis, no diarrhea Left thorax: No hematoma or bruising is noted, no obvious bony deformity, no skin tenting Current Facility-Administered Medications Medication Dose Route Frequency amLODIPine 5 mg tab(s) (NORVASC) 5 mg ORAL DAILY metoprolol tartrate (short acting) 50 mg tab(s) (LOPRESSOR) 50 mg ORAL BID tamsulosin 0.4 mg cap(s) (FLOMAX) 0.4 mg ORAL DAILY NaCl 0.9% iv flush bag 20 mL INTRAVENOUS PRN clopidogrel 75 mg tab(s) (PLAVIX) 75 mg ORAL/FEEDING TUBE DAILY atorvastatin 40 mg tab(s) (LIPITOR) 40 mg ORAL/FEEDING TUBE AT BEDTIME pantoprazole DR 40 mg tab(s) (PROTONIX) 40 mg ORAL DAILY (6 AM) ondansetron (PF) 4 mg injection (ZOFRAN) 4 mg INTRAVENOUS q 6 H PRN aspirin 81 mg chewable tab(s) 81 mg ORAL/FEEDING TUBE DAILY sodium chloride 0.9 % (flush) 2-10 mL (BD POSIFLUSH) 2-10 mL INTRAVENOUS DIRECTED PRN And perflutren lipid microspheres 1.1 mg/mL 1.3 mL injection (DEFINITY) 1.3 mL INTRAVENOUS DIRECTED PRN methocarbamol 500 mg tab(s) (ROBAXIN) 500 mg ORAL BID gabapentin 300 mg cap(s) (NEURONTIN) 300 mg ORAL DAILY lidocaine 4 % 1 Patch (SALONPAS) 1 Patch TRANSDERMAL DAILY acetaminophen 500 mg tab(s) (TYLENOL) 500 mg ORAL q 6 HR oxyCODONE IR 2.5 mg tab(s) (ROXICODONE) 2.5 mg ORAL q 6 H PRN DATA: Diagnostic tests reviewed for today's visit: Most recent labs and imaging results. Recent Results (from the past 24 hour(s)) XR RIBS/CHEST 3V AP RIB/OBLS/CXR LEFT Collection Time: 04/03/23 8:15 PM Narrative * * *Final Report* * * DATE OF EXAM: Apr 03 2023 8:15PM [id number] [id number] - XR RIB/CHST 3V AP RIB/OBL/CHST L / PROCEDURE REASON: Rib fracture suspected, traumatic * * * * Physician Interpretation * * * * XR RIB/CHST 3V AP RIB/OBL/CHST L Ordering Physician: WALTER CHÁVEZ 04/03/2023 8:15 PM LEFT RIBS Clinical Statement: Patient fell, pain FINDINGS: 5 views of the left ribs were obtained. There were no prior studies available for comparison. There are minimally displaced fractures at the lateral aspect of the left eighth and ninth ribs. There is a minimally displaced fracture at the anterior aspect of the left 10th rib. There is a small lucency at the left apex compatible with a small pneumothorax. There are atelectatic changes at the left base. Impression IMPRESSION: Fractures of the left eighth, ninth and 10th ribs. There are findings compatible with a small left pneumothorax. The results were forwarded to the patient's clinician at the time of interpretation. Hog Scraper: TIANA Transcribe Date/Time: Apr 04 2023 7:50A Dictated by : JANET OLIVEIRA MD This examination was interpreted and the report reviewed and electronically signed by: JANET OLIVEIRA MD on Apr 04 2023 7:54AM EST CBC + DIFF Collection Time: 04/04/23 5:04 AM Result Value Ref Range WBC 6.75 3.70 - 11.00 k/uL RBC 4.18 (L) 4.20 - 6.00 m/uL Hemoglobin 12.6 (L) 13.0 - 17.0 g/dL Hematocrit 36.3 (L) 39.0 - 51.0 % MCV 86.8 80.0 - 100.0 fL MCH 30.1 26.0 - 34.0 pg MCHC 34.7 30.5 - 36.0 g/dL RDW-CV 14.3 11.5 - 15.0 % Platelet Count 204 150 - 400 k/uL MPV 10.4 9.0 - 12.7 fL Neutrophils % 57.0 % Abs Neut 3.84 1.45 - 7.50 k/uL Lymphocytes % 22.5 % Abs Lymph 1.52 1.00 - 4.00 k/uL Monocytes % 15.9 % Abs Appling 1.07 (H) <0.87 k/uL Eosinophils % 4.4 % Abs Eosin 0.30 <0.46 k/uL Basophils % 0.1 % Abs Baso <0.03 <0.11 k/uL Immature Granulocytes % 0.1 % Abs Immature Gran <0.03 <0.10 k/uL NRBC 0.0 /100 WBC Absolute nRBC <0.01 <0.01 k/uL Diff Type Auto GLUCOSE, BLOOD (POC) Collection Time: 04/04/23 8:55 AM Result Value Ref Range Glucose, Point of Care 140 (A) 85 - 125 mg/dL PHYSICIAN CONSULT (AK,AV,EU,FV,HL,IR,MELANIE,MH,MM,MO,MR,SP) Collection Time: 04/04/23 9:51 AM Narrative Ernie Alexis APRN.BUILDING SPECIALIST 04/04/2023 11:16 AM Trauma Consult (more content not included)...[facility]07-11-2023 Note HNO ID: [id number] Author: Belkis Oakes APRN.BUILDING SPECIALIST Service: Neurology Stroke Author Type: Nurse Practitioner Type: Progress Notes Filed: 04/04/2023 3:59 PM Note Text: Payroll Associate Note SERVICE DATE: 04/04/2023 SERVICE TIME: 3:43 PM PCP: Kezia Dubose MD REASON FOR STROKE EVALUATION: left arm weakness Subjective HPI: Note from Michel Knapp CNP reviewed. In summary, patient presented with acute left arm weakness on 04/01/23. No weakness of the left leg or trouble walking. Denies vision abnormalities, but has a dense left homonymous hemianopsia on exam. MRI Brain completed yesterday reports an acute right parietal infarct with suspected minimal petechial hemorrhage. There are subacute right temporal-occipital, middle cerebral peduncle and right cerebellar infarcts as well as chronic infarcts. Patient denies known previous history of strokes and denies recent neurologic symptoms other than the left arm weakness. Was taking Aspirin prior to this hospitalization. Unfortunately he passed out on 04/02/23 while brushing his teeth and suffered left rib fractures. He has a previous h/o syncope and sees performance solutions specialist Dr. Nuñez. PAST MEDICAL HISTORY Diagnosis Date Abdominal aortic aneurysm without rupture (HCC) 03/11/[address] Singh Benign prostatic hyperplasia with urinary hesitancy 12/13/2019 Had 10h of urinary retention, Voided x2 since chang removed but small volume Begun on flomax 12/11 Obtain postvoid residual to ensure no overflow incontinence Bilateral carotid artery stenosis 08/20/2018 Celiac disease 08/31/2010 Disorders of bursae and tendons in shoulder region, unspecified 09/08/2013 Diverticulosis of large intestine Elevated hemoglobin A1c 02/10/2021 Hypertension, essential 02/02/2018 Internal hemorrhoids without mention of complication 05/05/2008 Mixed hyperlipidemia 11/30/2010 Peripheral vascular disease (HCC) 02/25/2016 Stage 3a chronic kidney disease (HCC) 02/10/2021 Synovial cyst of right popliteal space 02/14/2022 Vitamin D deficiency 04/06/2009 PAST SURGICAL HISTORY Procedure Laterality Date ABD AORTA ANEURYSM REPAIR 11/2019 COLONOSCOPY FLX DX W/COLLJ SPEC WHEN PFRMD 03/23/2004 Colonoscopy COLONOSCOPY FLX DX W/COLLJ SPEC WHEN PFRMD 05/05/2008 Colonoscopy, repeat 10 yrs PAST SURGICAL HISTORY OF 04/14/2004 excision of lesion neck PAST SURGICAL HISTORY OF 02/21/1992 lesion removed from rectum SOCIAL HISTORY Social History Tobacco Use Smoking status: Never Smokeless tobacco: Never Substance Use Topics Alcohol use: No Drug use: Never FAMILY HISTORY Problem Relation Age of Onset Stroke Father other (lupus) Sister Diabetes Brother Diabetes Brother ALLERGIES Allergen Reactions Gluten Diarrhea Upset stomach Gas build up MEDICATION Pre-admission perflutren lipid microspheres 1.3 mL in NaCl (PF) 0.9% 10 mL injection (DEFINITY), , INTRAVENOUS, DIRECTED PRN, Walter Nuñez MD sodium chloride 0.9 % (flush) 10 mL (BD POSIFLUSH), 10 mL, INTRAVENOUS, DIRECTED PRN, Walter Nuñez MD amLODIPine (NORVASC) 5 mg tablet, Take 1 tablet by mouth once daily., Disp: 90 tablet, Rfl: 3 tamsulosin (FLOMAX) 0.4 mg, Take 1 capsule by mouth once daily., Disp: 90 capsule, Rfl: 3 metoprolol tartrate, short acting, (LOPRESSOR) 50 mg tablet, Take 1 tablet by mouth twice daily., Disp: 180 tablet, Rfl: 3 y-iyiowgfod-ydfwmwny root extract-aloe leaf extract (GLUTAGENICS) [id number] powder, Mix one teaspoon (4.33 g) with water three times daily (1 teaspoon = 3.5 grams L-glut), Disp: , Rfl: milk thistle seed extract 200 mg cap, Take 1 capsule by mouth once daily., Disp: , Rfl: cholecalciferol (VITAMIN D3) 5,000 unit tab, Take 1 tablet by mouth once daily., Disp: , Rfl: ZINC ORAL, Take 50 mg by mouth once daily., Disp: , Rfl: TESTOSTERONE, BULK, MISC, Cream, Disp: , Rfl: Aspirin 81 mg tab, Take 1 tablet by mouth once daily., Disp: , Rfl: 0 budesonide, enteric coated (ENTOCORT EC) 3 mg 24 hr capsule, Take 6 mg by mouth as needed., Disp: , Rfl: Herbal Drugs cap, Take 1 capsule by mouth once daily. Watertronix, Disp: , Rfl: SprectraZyme Mcqueen 9x ES, Take 1 tablet by mouth w MEALS., Disp: , Rfl: OTC PRODUCT, Liver md 2 caps daily, Disp: , Rfl: OTC PRODUCT, Arterial protect one cap dialy, Disp: , Rfl: Glutamine (L-GLUTAMINE) 500 mg cap, Take by mouth once daily., Disp: , Rfl: cholestyramine (QUESTRAN) 4 gram packet, prn , Disp: , Rfl: Current Current Facility-Administered Medications Medication Dose Route Frequency Provider Last Rate Last Admin methocarbamol 500 mg tab(s) (ROBAXIN) 500 mg ORAL BID Ernie Alexis APRN.BUILDING SPECIALIST 500 mg at 04/04/23 1142 gabapentin 300 mg cap(s) (NEURONTIN) 300 mg ORAL DAILY Ernei Alexis APRN.BUILDING SPECIALIST 300 mg at 04/04/23 1142 lidocaine 4 % 1 Patch (SALONPAS) 1 Patch TRANSDERMAL DAILY Ernie Alexis APRN.BUILDING SPECIALIST 1 Patch at 04/04/23 1142 acetaminophen 500 m (more content not included)...[facility]07-11-2023 History of Past illness Narrative* Problem Noted Date Diagnosed Date Resolved Date Traumatic pneumothorax 04/04/202304/06 Right shoulder pain 09/08/2013 09/18/20 14 documented as of this encounter (statuses as of 04/11/2023) [facility]07-11-2023 History of Past illness Narrative* Problem Noted Date Diagnosed Date Resolved Date Traumatic pneumothorax 04/04/202304/06 Right shoulder pain 09/08/2013 09/18/20 14 documented as of this encounter (statuses as of 04/19/2023) [facility]07-11-2023 History of Past illness Narrative* Problem Noted Date Diagnosed Date Resolved Date Traumatic pneumothorax 04/04/202304/06 Right shoulder pain 09/08/2013 09/18/20 14 documented as of this encounter (statuses as of 04/20/2023) [facility]-11-2023 History of Past illness Narrative* Problem Noted Date Diagnosed Date Resolved Date Traumatic pneumothorax 04/04/202304/06 Right shoulder pain 09/08/2013 09/18/20 14 documented as of this encounter (statuses as of 04/25/2023) [facility]-2023 History of Past illness Narrative* Problem Noted Date Diagnosed Date Resolved Date Traumatic pneumothorax 04/04/202304/06 Right shoulder pain 09/08/2013 09/18/20 14 documented as of this encounter (statuses as of 04/25/2023) [facility]-20[facility] History of Past illness Narrative* Problem Noted Date Diagnosed Date Resolved Date Traumatic pneumothorax 04/04/202304/06 Right shoulder pain 09/08/2013 09/18/20 14 documented as of this encounter (statuses as of 05/03/2023) [facility]20[facility] History of Past illness Narrative* Problem Noted Date Diagnosed Date Resolved Date Traumatic pneumothorax 04/04/202304/06 Right shoulder pain 09/08/2013 09/18/20 14 documented as of this encounter (statuses as of 05/05/2023) [facility]20[facility] History of Past illness Narrative* Problem Noted Date Diagnosed Date Resolved Date Traumatic pneumothorax 04/04/202304/06 Right shoulder pain 09/08/2013 09/18/20 14 documented as of this encounter (statuses as of 05/06/2023) [facility] History of Past illness Narrative* Problem Noted Date Diagnosed Date Resolved Date Traumatic pneumothorax 04/04/202304/06 Right shoulder pain 09/08/2013 09/18/20 14 documented as of this encounter (statuses as of 05/09/2023) [facility] History of Past illness Narrative* Problem Noted Date Diagnosed Date Resolved Date Traumatic pneumothorax 04/04/202304/06 Right shoulder pain 09/08/2013 09/18/20 14 documented as of this encounter (statuses as of 05/12/2023) [address]2023 History of Past illness Narrative* Problem Noted Date Diagnosed Date Resolved Date Traumatic pneumothorax 04/04/202304/06 Right shoulder pain 09/08/2013 09/18/20 14 documented as of this encounter (statuses as of 05/15/2023) [facility] History of Past illness Narrative* Problem Noted Date Diagnosed Date Resolved Date Traumatic pneumothorax 04/04/202304/06 Right shoulder pain 09/08/2013 09/18/20 14 documented as of this encounter (statuses as of 05/16/2023) [facility] History of Past illness Narrative* Problem Noted Date Diagnosed Date Resolved Date Traumatic pneumothorax 04/04/202304/06 Right shoulder pain 09/08/2013 09/18/20 14 documented as of this encounter (statuses as of 05/31/2023) [facility] History of Past illness Narrative* Problem Noted Date Diagnosed Date Resolved Date Traumatic pneumothorax 04/04/202304/06 Right shoulder pain 09/08/2013 09/18/20 14 documented as of this encounter (statuses as of 06/03/2023) [facility] History of Past illness Narrative* Problem Noted Date Diagnosed Date Resolved Date Traumatic pneumothorax 04/04/202304/06 Right shoulder pain 09/08/2013 09/18/20 14 documented as of this encounter (statuses as of 06/23/2023) [address]23 History of Past illness Narrative* Problem Noted Date Diagnosed Date Resolved Date Traumatic pneumothorax 04/04/202304/06 Right shoulder pain 09/08/2013 09/18/20 14 documented as of this encounter (statuses as of 06/24/2023) [address]23 History of Past illness Narrative* Problem Noted Date Diagnosed Date Resolved Date Traumatic pneumothorax 04/04/202304/06 Right shoulder pain 09/08/2013 09/18/20 14 documented as of this encounter (statuses as of 07/03/2023) [facility] History of Past illness Narrative* Problem Noted Date Diagnosed Date Resolved Date Traumatic pneumothorax 04/04/202304/06 Right shoulder pain 09/08/2013 09/18/20 14 documented as of this encounter (statuses as of 08/02/2023) [facility] History of Past illness Narrative* Problem Noted Date Diagnosed Date Resolved Date Traumatic pneumothorax 04/04/202304/06 Right shoulder pain 09/08/2013 09/18/20 14 documented as of this encounter (statuses as of 08/08/2023) [facility] History of Past illness Narrative* Problem Noted Date Diagnosed Date Resolved Date Traumatic pneumothorax 04/04/202304/06 Right shoulder pain 09/08/2013 09/18/20 14 documented as of this encounter (statuses as of 08/11/2023) [facility] History of Past illness Narrative* Problem Noted Date Diagnosed Date Resolved Date Traumatic pneumothorax 04/04/202304/06 Right shoulder pain 09/08/2013 09/18/20 14 documented as of this encounter (statuses as of 09/09/2023) [facility] History of Past illness Narrative* Problem Noted Date Diagnosed Date Resolved Date Traumatic pneumothorax 04/04/202304/06 Right shoulder pain 09/08/2013 09/18/20 14 documented as of this encounter (statuses as of 11/07/2023) [facility] History of Past illness Narrative* Problem Noted Date Diagnosed Date Resolved Date Traumatic pneumothorax 04/04/202304/06 Right shoulder pain 09/08/2013 09/18/20 14 documented as of this encounter (statuses as of 11/14/2023) [facility] History of Past illness Narrative* Problem Noted Date Diagnosed Date Resolved Date Traumatic pneumothorax 04/04/202304/06 Right shoulder pain 09/08/2013 09/18/20 14 documented as of this encounter (statuses as of 11/15/2023) [facility] History of Past illness Narrative* Problem Noted Date Diagnosed Date Resolved Date Traumatic pneumothorax 04/04/202304/06 Right shoulder pain 09/08/2013 09/18/20 14 documented as of this encounter (statuses as of 11/16/2023) [facility] History of Past illness Narrative* Problem Noted Date Diagnosed Date Resolved Date Traumatic pneumothorax 04/04/202304/06 Right shoulder pain 09/08/2013 09/18/20 14 documented as of this encounter (statuses as of 12/26/2023) [facility]07-10-2023 NoteHNO ID: [id number] Author: Walter Chávez MD Service: ? Author Type: Physician Type: Progress Notes Filed: 04/03/2023 6:59 PM Note Text: INPATIENT PROGRESS NOTE PRIMARY SERVICE: Hospitalist CHIEF COMPLAINT: Patient presents with: Weakness INTERVAL HPI: Complaining of left lateral thoracic pain primarily with getting in and out of bed. No anginal chest pain, dyspnea, nausea, or vomiting. His as well as his daughter, Kesha, are at the bedside. BP 126/58 Pulse 70 Temp (Src) 97.2 (Temporal) Resp 16 Ht 5' 8 (1.73m) Wt 153 lb 11.2 oz (69.7kg) SpO2 93% BMI 23.38 kg/(m2). O2 Therapy: Room Air PHYSICAL EXAM: General: Sitting up in bed, comfortable, nontoxic. Neurologic/psychiatric: Alert, normal affect, cranial nerves intact, mentating well HEENT: No trauma, moist mucous membranes, extraocular movements are intact, no scleral icterus Neck: Supple Respiratory: Normal breathing effort, no audible wheeze, no cough, no tachypnea Cardiovascular: Sinus on telemetry Gastrointestinal: No obvious significant distention, no vomiting, no hematemesis, no diarrhea Left thorax: No hematoma or bruising is noted, no obvious bony deformity, no skin tenting Current Facility-Administered Medications Medication Dose Route Frequency amLODIPine 5 mg tab(s) (NORVASC) 5 mg ORAL DAILY metoprolol tartrate (short acting) 50 mg tab(s) (LOPRESSOR) 50 mg ORAL BID tamsulosin 0.4 mg cap(s) (FLOMAX) 0.4 mg ORAL DAILY NaCl 0.9% iv flush bag 20 mL INTRAVENOUS PRN clopidogrel 75 mg tab(s) (PLAVIX) 75 mg ORAL/FEEDING TUBE DAILY atorvastatin 40 mg tab(s) (LIPITOR) 40 mg ORAL/FEEDING TUBE AT BEDTIME pantoprazole DR 40 mg tab(s) (PROTONIX) 40 mg ORAL DAILY (6 AM) ondansetron (PF) 4 mg injection (ZOFRAN) 4 mg INTRAVENOUS q 6 H PRN aspirin 81 mg chewable tab(s) 81 mg ORAL/FEEDING TUBE DAILY acetaminophen 650 mg tab(s) (TYLENOL) 650 mg ORAL q 4 H PRN sodium chloride 0.9 % (flush) 2-10 mL (BD POSIFLUSH) 2-10 mL INTRAVENOUS DIRECTED PRN And perflutren lipid microspheres 1.1 mg/mL 1.3 mL injection (DEFINITY) 1.3 mL INTRAVENOUS DIRECTED PRN DATA: Diagnostic tests reviewed for today's visit: Most recent labs and imaging results. Recent Results (from the past 24 hour(s)) ECHO Collection Time: 04/03/23 1:11 PM Narrative Echocardiography Report: Transthoracic Echo [facility] Date of service: 04/03/2023 1:11:15 PM Ordering physician: KOKI KNAPP Indication: Stroke Technologist: Senait Thomason [facility] Interpreting physician: Carley Givens MD PATIENT: Name: MR. SERGO Suárez HEADINGS : 1935 Age: 88 years Gender: M History of hypertension. Primary rhythm: sinus. Height: 172.70 cm BSA: 1.83 m? Weight: 69.72 kg BMI: 23.4 kg/m? Heart rate 60 bpm Blood pressure 134/61 mmHg Agitated saline was administered to assess source of emboli. Color Doppler was utilized to interrogate the cardiac valves assessed and spectral Doppler was utilized to determine the flow velocities and pressure gradients reported in this exam. Myocardial strain analysis was performed in this exam to aid in the assessment of cardiac function. MEASUREMENTS: Value Indexed Normal Max aortic dimension 3.7 cm Ao < 3.8 Left atrium diameter 3.8 cm (M-Mode) Left atrial volume 62 ml (biplane A-L) 34 ml/m? Kip <= 34 LV ID (diastole) 3.7 cm (2D) 2.02 cm/m? LV ID (systole) 2.4 cm (2D) 1.31 cm/m? IVS, leaflet tips 1.4 cm (2D) Posterior wall thickness 1.4 cm (2D) Left ventricular mass 187 g (2D) 102 g/m? Global peak long strain -19.0 % LV stroke volume 58 ml (2D biplane) LVOT stroke volume 73 ml 40 ml/m? LV end diastolic volume 81 ml (2D biplane) 44.1 ml/m? 34<=EDVi<75 LV end systolic volume 22 ml (2D biplane) 12.2 ml/m? Ejection Fraction 72 % (2D biplane) EF > 52 FINDINGS: LEFT VENTRICLE The left ventricle is normal in size. There is moderate concentric left ventricular hypertrophy. Left ventricular systolic function is hyperdynamic. Global LV myocardial strain is normal. Left ventricular diastolic function was not evaluated due to >2+ AI. Mitral annular lateral E/e': 8.6. Mitral annular septal E/e': 11.1. Wall Motion: All scored segments are normal. RIGHT VENTRICLE The right ventricle is normal in size. Right ventricular systolic function is normal. RV systolic tissue Doppler velocity is 18.3 cm/s. Tricuspid annular displacement is 2.8 cm. Estimated right ventricular systolic pressure is not reported due to an insufficient tricuspid regurgitation signal. Estimated right atrial pressure is 3 mmHg based on IVC assessment. LEFT ATRIUM The left atrial cavity is normal in size. RIGHT ATRIUM The right atrial cavity is normal in size. Inferior Vena Cava: The inferior vena cava appears normal measuring 0.8 cm. The vessel decreases greater than 50 percent with inspiration. MITRAL VALVE There is mild m (more content not included)...[facility]07-10-2023 NoteHNO ID: [id number] Author: RT Gregory(R) Service: Radiology Author Type: Technologist Type: Progress Notes Filed: 04/03/2023 4:08 PM Note Text: Summary: MRI Radiology Service Progress Note DATE OF SERVICE: April 03, 2023 TIME: 4:08 PM PATIENT IDENTITY VERIFICATION COMPLETED USING TWO (2) STANDARD IDENTIFIERS: Name and Date of confirmed by patient verbally and Name and Date of confirmed by identification band. FALL SCREENING: Has the patient had 2 falls in the last year or 1 fall with injury or currently using an Ambulatory Assistive Device (Walker, Cane, Wheelchair, Crutches, etc.)? Inpatient: Screened on floor PATIENT GENDER DATA: Male PATIENT RELEVANT IMPLANT DATA REVIEWED: Yes ALLERGIES: Reviewed and unchanged CONTRAST ALLERGY: NO. EXAM: MRI - CONTRAST TYPE: GROUP II PERIPHERAL IV DATA: Inpatient - refer to LDA documentation RADIOLOGY DEPARTMENT: MR; Exam(s) Completed: Head: Routine Brain SIGNATURE: RT Christopher(Roger) PATIENT NAME: Sergo Suárez Headings DATE: April 03, 2023 TIME: 4:08 PM[facility] NoteHNO ID: [id number] Author: Pb Carmichael RN Service: Care Management Author Type: Registered Nurse Type: Care Mgt Initial Assessment Filed: 04/03/2023 10:03 AM Note Text: CARE MANAGEMENT: ASSESSMENT AND DISCHARGE PLAN SERVICE DATE: April 03, 2023 SERVICE TIME: 10:02 AM PCP: Kezia Dubose MD saw 2 months ago Primary Contact: Extended Emergency Contact Information Primary Emergency Contact: Betsey Rosas Address: [address] [place] Relation: Spouse Secondary Emergency Contact: AnitraKesha Address: [address] Mobile Relation: Daughter Admission Status: Observation Insurance Provider: [employer] MEDICARE PPO Discharge Planning requested by: Patient Potential Transition Plans No Services Indicated;Home Advance Directives Current Advance Directive: Health Care Power of Workers' Compensation Mediator;Living Will In Chart: Yes Up To Date and Valid: Yes Current Living Arrangements and Support Lives with: Spouse/significant other Type of Residence: Private Residence (House) Does the patient have to climb stairs at home?: stairs outside the home;stairs within the home (Basement stairs and front steps, has a ramp in the garage.) Support: Spouse/significant other How do you manage to accomplish the following: Independent: Ambulation;Bathe/Shower;Dress;Meals/Meal Prep;Going to the bathroom;Medication Management Current Services/Equipment Current Post-Acute Service(s): None Discharge Planning Patient Goal(s): Be able to go home, General wellness [place] of Choice Explained: Are you interested in bedside delivery of your medications? No Discharge Planning Participant(s): Patient Patient/Family Comments: Caregiver Assessment: Caregiver is ready, willing and able to meet the patient's needs as recommended by the inter-professional team: No Caregiver needed Transport at Discharge: Transportation Arrangements: Car Destination: Home Needs Prior to Discharge: None Post-Acute Discharge Plan: Admission for: Left arm weakness. Discharge plan to return to home with spouse. He is independent, drives, denies any DME or services. No needs. Will continue to follow. PCP: Kezia Dubose MD saw 2 months ago SIGNATURE: Pb Carmichael RN PATIENT NAME: Sergo Suárez Headings DATE: April 03, 2023 TIME: 10:01 AM CONTACT #: [phone] NoteHNO ID: [id number] Author: Tamara Guillen RN Service: Nursing Author Type: Registered Nurse Type: Progress Notes Filed: 04/03/2023 1:06 AM Note Text: Upon pts 2300 neuro assessment, his hand grasp were unequal. Left hand grasp being slightly weaker. However, pt stated that his dexterity was weaker in his left than his right but weakness hasn't increase since his admission and since pts fall.[facility]07-09-2023 NoteHNO ID: [id number] Author: Kaylin Hamilton RN Service: Nursing Author Type: Registered Nurse Type: Nursing Progress Note Filed: 04/02/2023 6:32 PM Note Text: Patients spouse called and updated on patients condition.[facility] 04-02-2023 NoteHNO ID: [id number] Author: Walter Chávez MD Service: ? Author Type: Physician Type: Progress Notes Filed: 04/02/2023 6:58 PM Note Text: INPATIENT PROGRESS NOTE PRIMARY SERVICE: Hospitalist CHIEF COMPLAINT: Patient presents with: Weakness INTERVAL HPI: No complaint when I saw Sergo earlier this afternoon. No chest pain, dyspnea, nausea, or vomiting. He stated that function of the left upper extremity was 80% of normal. His as well as his daughter, Kesha, were at the bedside. BP 102/60 Pulse 59 Temp (Src) 97.6 (Oral) Resp 18 Ht 5' 8 (1.73m) Wt 151 lb 8 oz (68.7kg) SpO2 97% BMI 23.04 kg/(m2). O2 Therapy: Room Air PHYSICAL EXAM: General: Sitting up in bed, comfortable, nontoxic. Neurologic/psychiatric: Alert, normal affect, cranial nerves intact, mentating well HEENT: No trauma, moist mucous membranes, extraocular movements are intact, no scleral icterus, no appreciable unilateral weakness in the hands, arms, or shoulders Neck: Supple Respiratory: Normal breathing effort, no audible wheeze, no cough, no tachypnea Cardiovascular: Sinus on telemetry Gastrointestinal: No obvious significant distention, no vomiting, no hematemesis, no diarrhea Current Facility-Administered Medications Medication Dose Route Frequency iv contrast (radiology procedure) INTRAVENOUS DIRECTED PRN amLODIPine 5 mg tab(s) (NORVASC) 5 mg ORAL DAILY metoprolol tartrate (short acting) 50 mg tab(s) (LOPRESSOR) 50 mg ORAL BID tamsulosin 0.4 mg cap(s) (FLOMAX) 0.4 mg ORAL DAILY NaCl 0.9% iv flush bag 20 mL INTRAVENOUS PRN clopidogrel 75 mg tab(s) (PLAVIX) 75 mg ORAL/FEEDING TUBE DAILY atorvastatin 40 mg tab(s) (LIPITOR) 40 mg ORAL/FEEDING TUBE AT BEDTIME pantoprazole DR 40 mg tab(s) (PROTONIX) 40 mg ORAL DAILY (6 AM) ondansetron (PF) 4 mg injection (ZOFRAN) 4 mg INTRAVENOUS q 6 H PRN iv contrast (radiology procedure) INTRAVENOUS DIRECTED PRN aspirin 81 mg chewable tab(s) 81 mg ORAL/FEEDING TUBE DAILY DATA: Diagnostic tests reviewed for today's visit: Most recent labs and imaging results. Recent Results (from the past 24 hour(s)) CTA HEAD W IVCON Collection Time: 04/01/23 7:31 PM Narrative * * *Final Report* * * DATE OF EXAM: Apr 01 2023 7:31PM [facility] 0022 - CTA HEAD W IVCON / PROCEDURE REASON: Focal neuro deficit, new, fixed, or worsening, 4.5 to 24 hours, NIHSS < 6, strok * * * * Physician Interpretation * * * * EXAMINATION: CTA NECK W IVCON, CTA HEAD W IVCON HISTORY: Focal neuro deficit. TECHNIQUE: Spiral high resolution axial images were obtained through the head, neck and superior mediastinum following bolus administration of intravenous contrast for CT angiography. 3D maximum intensity projection images were created, reviewed and archived . MQ: [id number]_[id number] Contrast: 100 mL Omnipaque [address] Radiation dose: Integrated Dose-Length Product (DLP) for this visit = 455.45 mGy*cm. CT Dose Reduction Employed: Iterative recon COMPARISON: CT brain performed 04/01/2023. RESULT: BRAIN: Evaluation of the individual slices of the CTA demonstrates no evidence of an acute stroke. ASPECT Score = 10 Hemorrhage: No evidence of acute intracranial hemorrhage. ECASS hemorrhagic transformation score: Not Applicable NECK: Soft tissues: The soft tissue planes are maintained throughout. No evidence of a soft tissue mass in the neck or superior mediastinum. No significant lymphadenopathy is seen. Spine: Alignment is normal. Mild multilevel degenerative changes are present. Lung apices: The visualized lung apices are clear. CT ARTERIOGRAM: Extracranial Circulation: Aortic Arch: There is a normal branching pattern from the aortic arch. Scattered vascular calcifications. Carotid Stenosis: Right Common: No significant stenosis. Right Internal Carotid Plaque: Mild Right Internal Carotid Stenosis (% by NASCET Criteria): 30-40 Left Common: No significant stenosis. Left Internal Carotid Plaque: Mild Left Internal Carotid Stenosis (% by NASCET Criteria): Less than 30 Cervical Vertebral Arteries: Patency: Bilateral Dominance: Left Intracranial Circulation: The petrous, cavernous, and supraclinoid internal carotid arteries are patent. Anterior cerebral arteries and middle cerebral arteries are patent. Intracranial vertebral arteries, basilar artery, and posterior cerebral arteries are patent. No vessel cutoffs or aneurysms are identified. Major dural venous sinuses are patent. Mortising Machine Operator (topogram) images: Noncontributory. Impression IMPRESSION: No large vessel occlusion or high-grade stenosis. Arterial blood flow was measured to detect acute large vessel occlusion by computer aided detection software: Not Performed. Concordance between software and imaging review: Not Applicable. Hog Scraper: TIANA Transcribe Date/Time: Apr 01 2023 7:34P Dictated by : ARIN SHI MD This examination was interpreted and the rep (more content not included)...[facility]05-09-2023 History of Present illness Narrative* Kathy Huggins MD - 01/31/2023 1:19 PM EDT FUNCTIONAL MEDICINE FOLLOW-UP ASSESSMENT Patient: Sergo Suárez Headings 67.1 kg (148 lb) 172.7 cm (5' 8 ) Body mass index is 22.5 kg/m . Resting Metabolic Rate: 1331 Waist measurement: No waist measurement recorded. BP: 175/65 ALLERGIES Allergen Reactions Gluten Diarrhea Upset stomach Gas build up Current Outpatient Medications on File Prior to Visit Medication Sig tamsulosin (FLOMAX) 0.4 mg Take 1 capsule by mouth once daily. metoprolol tartrate, short acting, (LOPRESSOR) 50 mg tablet Take 1 tablet by mouth twice daily. SprectraZyme Mcqueen 9x ES Take 1 tablet by mouth w MEALS. d-wsyvhwtig-noxgqyqn root extract-aloe leaf extract (GLUTAGENICS) [id number] powder Mix one teaspoon (4.33 g) with water three times daily (1 teaspoon = 3.5 grams L-glut) milk thistle seed extract 200 mg cap Take by mouth. cholecalciferol (VITAMIN D3) 5,000 unit tab Take 1 tablet by mouth once daily. ZINC ORAL Take 50 mg by mouth once daily. TESTOSTERONE, BULK, MISC Cream Aspirin 81 mg tab Take 1 tablet by mouth once daily. CandiBactin AR (Metagenics) One softgel three times daily with meals CandiBactin BR (Metagenics) Two tablets three times daily Biocidin Advanced Formula (FirstBest) Take 5 Drops by mouth three times daily. Atrantil One (2) capsule per day up to 3 x's a day with food. hydrOXYzine HCl (ATARAX) 25 mg tablet TAKE 1 TABLET BY MOUTH THREE TIMES DAILY NEEDED FOR ITCHING/RASH. turmeric (CURCUMIN MISC) selenium 200 mcg tablet Take 1 tablet by mouth once daily. Flaxseed Oil 1,000 mg cap Take by mouth. (Patient not taking: Reported on 08/08/2022) OTC PRODUCT Liver md 2 caps daily OTC PRODUCT Arterial protect one cap dialy OTC PRODUCT digestzymes-- pancreatic enzymes (Patient not taking: Reported on 08/08/2022) GLUTATHIONE ORAL Take by mouth. MAGNESIUM ORAL Take 600 mg by mouth once daily. Glutamine (L-GLUTAMINE) 500 mg cap Take by mouth once daily. ubidecarenone (COQ-10 ORAL) Take 200 mg by mouth once daily. VITAMIN K2 ORAL Take 550 mcg by mouth once daily. cyanocobalamin/folic ac/vit B6 (HOMOCYSTEINE FORMULA ORAL) Take by mouth once daily. 2 capsules (Patient not taking: Reported on 08/08/2022) Lactobacillus acidophilus (PROBIOTIC ORAL) Take by mouth once daily. (Patient not taking: Reported on 08/08/2022) triamcinolone acetonide (KENALOG) 0.1 % cream Apply 1 application to affected area twice daily as needed (Avoid use on the face and eyelids). homeopathic drugs (PROSTATE ORAL) (Patient not taking: Reported on 08/08/2022) cholestyramine (QUESTRAN) 4 gram packet prn CYANOCOBALAMIN, VITAMIN B-12, (VITAMIN B-12 ORAL) Take by mouth once daily. (Patient not taking: Reported on 08/08/2022) No current facility-administered medications on file prior to visit. PAST MEDICAL HISTORY Diagnosis Date Abdominal aortic aneurysm without rupture (HCC) 03/11/[address] Singh Benign prostatic hyperplasia with urinary hesitancy 12/13/2019 Had 10h of urinary retention, Voided x2 since chang removed but small volume Begun on flomax 12/11 Obtain postvoid residual to ensure no overflow incontinence Bilateral carotid artery stenosis 08/20/2018 Celiac disease 08/31/2010 Dermatophytosis of nail Diarrhea Disorders of bursae and tendons in shoulder region, unspecified 09/08/2013 Diverticulosis of large intestine Elevated hemoglobin A1c 02/10/2021 Hypertension, essential 02/02/2018 Internal hemorrhoids without mention of complication 05/05/2008 Medicare annual wellness visit, subsequent 02/08/2017 Medicare part B: 09/25/2012 last done: 03/27/2019 Mixed hyperlipidemia 11/30/2010 Neck pain, chronic 04/25/2017 Peripheral vascular disease (HCC) 02/25/2016 Stage 3a chronic kidney disease (HCC) 02/10/2021 Synovial cyst of right popliteal space 02/14/2022 Vitamin D deficiency 04/06/2009 PAST SURGICAL HISTORY Procedure Laterality Date ABD AORTA ANEURYSM REPAIR 11/2019 COLONOSCOPY FLX DX W/COLLJ SPEC WHEN PFRMD 03/23/2004 Colonoscopy COLONOSCOPY FLX DX W/COLLJ SPEC WHEN PFRMD 05/05/2008 Colonoscopy, repeat 10 yrs PAST SURGICAL HISTORY OF 04/14/2004 excision of lesion neck PAST SURGICAL HISTORY OF 02/21/1992 lesion removed from rectum Family History Problem Relation Age of Onset Stroke Father other (lupus) Sister Diabetes Brother Diabetes Brother Social History Tobacco Use Smoking status: Never Smokeless tobacco: Never Substance Use Topics Alcohol use: No Drug use: Never EVALUATION Patient presents with: Established Patient 01/31/2023 Kathy Huggins MD Last Visit on 10/12/22 Provider: Bhavna Symptoms What is the severity of your symptoms? Improved - Abdominal - noting less bloating. More form to stool than prior. Completed removal phaseof 5R (Xifax, Candibactin AR/BR and Biocidin). Noting use of glutagenics, Biohm and enzymes currenttime. Following the recommended food plan? Yes - minimal use of cruciferous. Keeping away from certain items - noting issue with worsening symptoms - Supplements Are you taking recommended supplements? Yes - as above. With Vit D, Zinc Sleep Habit Described the quality of your sleep Well. Noting 7 to 8 hours. Bowel Habits Do you have a daily bowel movement? Yes - at night and one in day. No blood or mucus. Weight Are you measuring your weight? Yes - steady. Holding at 148 lbs 10/12/2022 Kathy Huggins MD Last Visit on July 2022 Provider: Bhavna Symptoms What is the severity of your symptoms? Noting shift in health with COVID. No GI symptoms (URI symptoms) Noting bowel shifting from loose to formed with diet (see below). LArge amount of gas noted. Completed GI Effects for review this PM Following the recommended food plan? Not entirely - Need to establishment Noting range of food narrow Cereal, fruit, goat cheese, eggs, chicken), fruit (berries, banana), beets, protein ( Initial Visit 08/08/22 - Bhavna Patient presents with: New Patient Change In Bowel Habits Patient Goals: 1., Abdominal pain - noting 15 years with abdominal symptoms of loose stool and bloating. progressive Noting food sensitivity. Dx in 2011 with collagenous colitis . Noting in September 2021 passing of worm (brought into office) - use of Black Curtice and antiparasitic cleanse recommended by family member 2. Itching - noting long body - varying places - no rhyme or reason for location. Noting hot showers with some relief. Living in [place] from Nov to Dec then in [place]. Noting skin with rash along back at times. Noting no oral relief HPI: 87 y/o male with hx of HTN, BPH with LUTS (on Flomax) and IBS-D : FT. VAGINAL . NO complication Breast No sugar in diet. Born in [place] (grains / [place]) --> [place] --> [place] ([place], [place]) Toxins - none Elementary: No learning or behavioral issues. Rare tonsil reoccurrence infections. Middle: No recreational activities. HS: No work. Lifestyle and Exposure History: Diet- No gluten / grains (limited). Limiting lectins Meals - Breakfast -Rice chex - fruit. [place] sausage - Lunch - Salad with - Dinner - Beets, squash, fish / beef , eggs (pastured raised) Snack Coconut ice cream Drink - Water with lemon - + daily - Camomile tea. - Limiting coffee - Some juice ([place]) - no soda. Bowel Habits: Varies. [place] Type 5 to 7 (diet shifting?) Supplement? Frequency 3 to 6 times. Minimal mucus. No blood Sleep- 9 hours . Usually rested. Snoring. Onset - < 10 minutes Time Asleep - fragmented. Daytime Napping - sometimes. Exercise- hiking. 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 Tested. No electrolytes added back. Fish consumption Yes Mold Yes - prior home with some flooding with suspicion. Minimal at current home Chemical/Industrial/Pesticides Yes Chemical sensitivities Yes Foreign travel/Frequent airplane travel Yes - food poisoning Supplements: Current Outpatient Medications on File Prior to Visit Medication Sig metoprolol tartrate, short acting, (LOPRESSOR) 50 mg tablet Take 1 tablet by mouth twice daily. milk thistle seed extract 200 mg cap Take by mouth. turmeric (CURCUMIN MISC) selenium 200 mcg tablet Take 1 tablet by mouth once daily. OTC PRODUCT Liver md 2 caps daily OTC PRODUCT Arterial protect one cap dialy GLUTATHIONE ORAL Take by mouth. MAGNESIUM ORAL Take 600 mg by mouth once daily. Glutamine (L-GLUTAMINE) 500 mg cap Take by mouth once daily. ubidecarenone (COQ-10 ORAL) Take 200 mg by mouth once daily. VITAMIN K2 ORAL Take 550 mcg by mouth once daily. triamcinolone acetonide (KENALOG) 0.1 % cream Apply 1 application to affected area twice daily as needed (Avoid use on the face and eyelids). cholecalciferol (VITAMIN D3) 5,000 unit tab Take 1 tablet by mouth once daily. cholestyramine (QUESTRAN) 4 gram packet prn ZINC ORAL Take 50 mg by mouth once daily. TESTOSTERONE, BULK, MISC Cream Aspirin 81 mg tab Take 1 tablet by mouth once daily. Flaxseed Oil 1,000 mg cap Take by mouth. (Patient not taking: Reported on 08/08/2022) OTC PRODUCT digestzymes-- pancreatic enzymes (Patient not taking: Reported on 08/08/2022) tamsulosin (FLOMAX) 0.4 mg Take 1 capsule by mouth once daily. cyanocobalamin/folic ac/vit B6 (HOMOCYSTEINE FORMULA ORAL) Take by mouth once daily. 2 capsules (Patient not taking: Reported on 08/08/2022) Lactobacillus acidophilus (PROBIOTIC ORAL) Take by mouth once daily. (Patient not taking: Reported on 08/08/2022) homeopathic drugs (PROSTATE ORAL) (Patient not taking: Reported on 08/08/2022) CYANOCOBALAMIN, VITAMIN B-12, (VITAMIN B-12 ORAL) Take by mouth once daily. (Patient not taking: Reported on 08/08/2022) Review of Systems Constitutional: Negative for activity change, appetite change, fatigue and fever. HENT: Positive for dental problem. Negative for congestion, sinus pressure, sinus pain and trouble swallowing. Eyes: Positive for visual disturbance (glasses). Respiratory: Negative for shortness of breath. Cardiovascular: Negative for palpitations. Gastrointestinal: Positive for abdominal distention (1 hour after meal 0- use of Gas-X, bowel movement) and diarrhea. Negative for abdominal pain, nausea and vomiting. Genitourinary: Flow - reduced prior to flomax Musculoskeletal: Negative for arthralgias and myalgias. Skin: Positive for rash. Allergic/Immunologic: Positive for food allergies. Negative for environmental allergies. Psychiatric/Behavioral: Negative for hallucinations and sleep disturbance. The patient is not hyperactive. 01/31/23 1310 BP: 175/65 Pulse: (Abnormal) 52 Resp: 20 Temp: 36.7 C (98 F) SpO2: 98% Weight: 67.1 kg (148 lb) Height: 172.7 cm (5' 8 ) Physical Exam Vitals reviewed. Constitutional: Appearance: Normal appearance. HENT: Head: Normocephalic and atraumatic. Right Ear: Hearing and external ear normal. Left Ear: Hearing and external ear normal. Eyes: General: Lids are normal. Extraocular Movements: Extraocular movements intact. Musculoskeletal: Cervical back: No pain with movement. Neurological: Mental Status: He is alert. Psychiatric: Attention and Perception: Attention and perception normal. Mood and Affect: Mood normal. Speech: Speech normal. Behavior: Behavior normal. Thought Content: Thought content normal. Cognition and Memory: Cognition and memory normal. Judgment: Judgment normal. DIAGNOSIS/ASSESSMENT: K59.89 Intestinal dysbiosis (primary encounter diagnosis) R63.8 Impaired nutrient utilization I10 Hypertension, essential Noting at present time improvement in symptoms following initial removal phase from 5R to include antibiotics and herbals. Would like him to continue oral utilization of glutamine for gut barrier protection along with digestive enzymes for the interim. Recolonization with probiotic also would be useful. Next question I would propose is that with the absorptive surface of the gut perhaps being improved with removal of extra bacterial overgrowth is nutrient being presented through diet diverse enough or deficiencies present. Therefore would like to do a deeper evaluation with use of Ecommo total [place] testing. Did review home requirement of blood spot which patient was agreeable to do. Using t his organic acid testing and looking at protein stores also would be beneficial to ensure hitting nutritional goals long-term. In regards to patient's blood pressure he was seen by his primary care provider yesterday with a normal blood pressure in office. Would encourage him to follow-up if outside blood pressure readings maintain elevation. However this also could be related to secondary dietary deficiencies. Matrix Nodes ASSIMILIATION: Dysbiosis, Adverse Food Reaction , and Malabsorption GI Effects - Reviewed 10/12/22 Date Aug 2022 Infection Klebsiella 4+ Digestion PE 72 (low) Low fecal protein. Normal fecal fat Beta Glucoronidase 1019 Imbalance Epx - normal. sIgA < 150? Diversity/abundance Zone 2 Commensal bacteria colonies in top 5th% 02/15 high 07/18 (low or <dL) STRUCTURAL INTEGRITY: Cardiomyopathy and Intestinal Permeability (numerous food sensitivities) Aneurysm repair COMMUNICATION: Adrenal Dysfunction , Depression (Neurotransmitter Dysfunction) , and Anxiety (Neurotransmitter Dysfunction) TRANSPORT: Hypertension , Congestive Heart Failure , and Endothelial dysfunction DEFENSE AND REPAIR: Skin rash ENERGY: Fatigue / brain fog DETOXIFICATION: Exposure to heavy metals , Exposure to POP's, Mold Exposure, and Chemical Sensitivity FUNCTIONAL MEDICINE PLAN: Metabolomix+ is both a blood and urine profile that evaluates over 125 biomarkers and assesses the body's functional need for 40 antioxidants, vitamins, minerals, essential fatty acids, amino acids, digestive support, and other select nutrients. Personalized recommendations for nutrients are determi maykel by using an algorithm based on your test findings. Kit will be sent to you for performance. STOP all supplements (not medications) for 4 days - read the instructions! Start support when you have performed test at this time. Avoid apples(and juice), grapes (and raisins, juice), and pears forat least 24 hrs before testing as it can influence your testing results of organic acids. Follow-upin 4 to 6 weeks following completion. Functional Nutrition: per resourcing consultant (after Metabolomix performance to review)_ Review and implement diet factors recommended through nutritional visit - use your health online health and fitness coach fordiscussion on how to implement Sleep: Sleep hygeine - no bright lights or phones/laptops/TV an hour before bed. Exercise Prescription: Continue your current exercise as tolerated. Supplement Support Review supplements - Based upon your labs and progress I may further recommend you consider these items to supplement. No orders of the defined types were placed in this encounter. Ordering Supplementation: We recommend ordering supplementation online from the [facility] as they are high quality therapeutic supplements. [facility] offers an easy to use, convenient way to order supplementation recommended by your provider through the [facility]. All of the products offered are considered high-quality, and adhere to specific criteria for quality and effectiveness including good manufacturing practices, use of clean products, free of fillers, binders, and other antigens. In addition, we follow third republican analysis for independent verification of active ingredients. Get started by following three easy steps: A. Visit the following webpage: [email or web address]://[employer].OptiMine [employer]/ [place] DIGITAL MEDIA Statements on this site have not been evaluated by the Food and Drug Administration. B. Create an account: Enter your first name, last name, email address which will be your username Create password Select a referring physician from the dropdown box. If they are not listed, select other If you are a new patient, enter the following provider code: functional C. Order recommended supplementation! Enter the supplement name in the search box Add all supplements to your cart and proceed to checkout. Orders of $100 or more qualify for free shipping. *Please allow 5-7 business days for delivery. For issues with your MRN please call [phone] Stress Management [employer] Neuro -new technology to use a wearable device to retrain brain and focus on nervous system reduction. To learn more of this technology by going to (khu-vgf-mvpsr) https://PLASTIQ/ Please look into this Heart Rate Variability BioFeedback Tool (www.heartmath.org). You can see the research that has been put into this very valuable tool under the Resources and Research tabs. This can be used as an jason on your smart phone.To use this technology will need to buy a sensor that plugs right into the phone for about $100. First, get one of the Heart Math booklets off Behavioral Recognition Systems thatfits your 'go to' emotion - Transforming Anger, Anxiety, Stress, Depression, or PTSD. Five minutes 3 times a day is more effective than 15 minutes in one sitting. A regular, daily meditation practice of at least 15-20 minutes will change your brain--as well as your genes! Preliminary studies demonstrate gene expression is modified in those who meditate regularly leading to down-regulation of pro- inflammatory genes. This results in reduced inflammation, as well as improvements in the body's response to stress via the hormone cortisol, in the intervention groups vs. the controls. Although more research is needed, these findings suggest a definite role for meditation in the treatment and prevention of chronic inflammatory conditions. Smart phone apps to begin a meditative practice: Headspace (free for first 10 days) Insight Meditation Timer- (Free)-Great all-around jason to use for guided meditations of many different types and lengths or just to use as a tool to time and track your meditation practice. Calm- (Free) Walking Meditations-($1.99)- Get your walk AND meditation done together. A good way to start out for individuals who feel they just can't sit still to begin a meditative practice. Vagal Tone Look at the following work on harnessing the relaxation response by the following providers (you should look at one which appeals to you fully) . --- Polyvagal theory (Richard Walker) https://www.Pers[employer]ent [employer].Amicus [employer]/ --- Dynamic Neural Retraining System - (Karlene Muñoz) [email or web address] --- Fournier Program - (Drew Fournier) [email or web address]/ Finding time for self (no multitasking) at this time to dedicate to breathing / relaxation process.Work on cultivating kevin! Future Plans (for provider use): GI Effects (Fall 2022?) I spent a total of 41 minutes on the date of the service which included preparing to see the patient, [id number] patient care, completing clinical documentation, obtaining and/or reviewing separately obtained history, counseling and educating the patient/family/caregiver, communicating with other HCPs (not separately reported), and independently interpreting results (not separately reported). Kathy Huggins MD [facility] History of Present illness Narrative* Kezia Dubose MD - 01/30/2023 2:40 PM EDT Reason for Visit Patient presents with: Follow Up: refill needed Sergo Rosas is a 88 year old male who presents here today for Above Complaints.. Health Maintenance SHINGRIX VACCINE(1 of 2) COVID-19 VACCINE(3 - Booster for Moderna series) ADVANCE DIRECTIVE DISCUSSION DEPRESSION ASSESSMENT HPI Been to see functional medicine, and was tested for food allergies , tested for inflammation and was advised to stay of certain foods and given a regimen of abx to get rid of bacteria in the GI treact. He is done with the rx and thinks he is improved. First of he is not having too much diarrhea. Bloating and gas have improved. He has given up up all the stuff he is allergic to, which was hard.. Buthe definitely notes being better. He needs a refill of his Flomax Depression Screening 04/04/2016 04/24/2017 08/24/2018 01/30/2023 PHQ-2 Score 0 0 0 0 Depression screening tool completed and reviewed. Based on score and interview, patient is not at risk for depression. Screening tool discussed with patient, and I recommended continuing current planof care. No problem-specific Assessment & Plan notes found for this encounter. PAST MEDICAL HISTORY Diagnosis Date Abdominal aortic aneurysm without rupture (HCC) 03/11/[address] Singh Benign prostatic hyperplasia with urinary hesitancy 12/13/2019 Had 10h of urinary retention, Voided x2 since chang removed but small volume Begun on flomax 12/11 Obtain postvoid residual to ensure no overflow incontinence Bilateral carotid artery stenosis 08/20/2018 Celiac disease 08/31/2010 Dermatophytosis of nail Diarrhea Disorders of bursae and tendons in shoulder region, unspecified 09/08/2013 Diverticulosis of large intestine Elevated hemoglobin A1c 02/10/2021 Hypertension, essential 02/02/2018 Internal hemorrhoids without mention of complication 05/05/2008 Medicare annual wellness visit, subsequent 02/08/2017 Medicare part B: 09/25/2012 last done: 03/27/2019 Mixed hyperlipidemia 11/30/2010 Neck pain, chronic 04/25/2017 Peripheral vascular disease (HCC) 02/25/2016 Stage 3a chronic kidney disease (HCC) 02/10/2021 Synovial cyst of right popliteal space 02/14/2022 Vitamin D deficiency 04/06/2009 PAST SURGICAL HISTORY Procedure Laterality Date ABD AORTA ANEURYSM REPAIR 11/2019 COLONOSCOPY FLX DX W/COLLJ SPEC WHEN PFRMD 03/23/2004 Colonoscopy COLONOSCOPY FLX DX W/COLLJ SPEC WHEN PFRMD 05/05/2008 Colonoscopy, repeat 10 yrs PAST SURGICAL HISTORY OF 04/14/2004 excision of lesion neck PAST SURGICAL HISTORY OF 02/21/1992 lesion removed from rectum FAMILY HISTORY Problem Relation Age of Onset Stroke Father other (lupus) Sister Diabetes Brother Diabetes Brother Social History Tobacco Use Smoking status: Never Smokeless tobacco: Never Substance Use Topics Alcohol use: No Drug use: Never Past medical history, appointments, medications, allergies reviewed. Pertinent Lab/Diagnostic Studies are reviewed and discussed today Current Outpatient Medications: tamsulosin (FLOMAX) 0.4 mg metoprolol tartrate, short acting, (LOPRESSOR) 50 mg tablet SprectraZyme Mcqueen 9x ES CandiBactin AR (Metagenics) CandiBactin BR (Metagenics) Biocidin Advanced Formula ([facility]) w-lijpexfpt-rvmalcix root extract-aloe leaf extract (GLUTAGENICS) [id number] powder Atrantil hydrOXYzine HCl (ATARAX) 25 mg tablet milk thistle seed extract 200 mg cap turmeric (CURCUMIN MISC) selenium 200 mcg tablet Flaxseed Oil 1,000 mg cap OTC PRODUCT OTC PRODUCT OTC PRODUCT GLUTATHIONE ORAL MAGNESIUM ORAL Glutamine (L-GLUTAMINE) 500 mg cap ubidecarenone (COQ-10 ORAL) VITAMIN K2 ORAL cyanocobalamin/folic ac/vit B6 (HOMOCYSTEINE FORMULA ORAL) Lactobacillus acidophilus (PROBIOTIC ORAL) triamcinolone acetonide (KENALOG) 0.1 % cream cholecalciferol (VITAMIN D3) 5,000 unit tab homeopathic drugs (PROSTATE ORAL) cholestyramine (QUESTRAN) 4 gram packet ZINC ORAL TESTOSTERONE, BULK, MISC CYANOCOBALAMIN, VITAMIN B-12, (VITAMIN B-12 ORAL) Aspirin 81 mg tab Review of Systems CONSTITUTIONAL: No fevers, chills night sweats, unintended weight loss CARDIOVASCULAR: No chest pain, dyspnea, palpitations, orthopnea, PND, ankle edema. PULM: No dyspnea, unexplained cough. GI: No dysphagia/odynophagia, problematic reflux, constipation, diarrhea, changes in stool habits, hematochezia, melena. : No new urinary complaints, including dysuria, gross hematuria or pyuria. NEURO: No new balance problems, peripheral weakness/paresthesias or numbness of concern. Physical Exam BP 140/68 (BP Site: Left Arm, BP Position: Sitting, BP Cuff Size: Large Adult) Pulse (!) 56 Temp 36.6 C (97.8 F) Resp 12 Ht 172.7 cm (5' 8 ) Wt 67.6 kg (149 lb) SpO2 96% BMI 22.66 kg/m General appearance: Well appearing, alert, in no acute distress, well nourished. Skin: Skin color, texture, turgor normal, no suspicious rashes or lesions Head: Normocephalic, no masses, lesions, tenderness or abnormalities Eyes: Anicteric sclera. Pupils are equally round and reactive to light. Extraocular movements are intact. Lungs: Lungs clear to auscultation. No wheezing, rhonchi, rales Heart: RRR without murmur, gallop, or rubs. Extremities: No deformities, edema, skin discoloration, clubbing or cyanosis. Good capillary refill. ASSESSMENT/PLAN: 1. Bloating - ICD9: 787.3, ICD10: R14.0 (primary diagnosis) Better 2. Lower urinary tract symptoms (LUTS) - ICD9: 788.99, ICD10: R39.9 - TAMSULOSIN 0.4 MG CAPSULE 3. Diarrhea, unspecified type - ICD9: 787.91, ICD10: R19.7 Better 4. Stage 3a chronic kidney disease (HCC) - ICD9: 585.3, ICD10: N18.31 CKD: Stage 3, recent labs reviewed, shows GFR is stable, not significantly changed from previous labs. Discussed the importance of staying off the NSAIDs naproxen, motrin, brufen, aleve etc and contrast., adequate hydration Keeping blood pressure under control. Kezia Dubose MD documented in this encounter[facility]23 Miscellaneous Notes* Telephone Encounter - Peg Patel RN - 12/02/2022 3:19 PM EST Reason for call: Mrs Rosas called and she would like to schedule an appointment for Sergo with Jolene. Last seen 02/14/22. Please schedule apts same day as her (Betsey Rosas 06/07/1940). Contact Name: Betsey Rosas Home and cell number: [phone] Diagnosis: AAA Kind Regards, Peg Patel documented in this encounterEast [facility]01-19-2023 History of Present illness Narrative* Jesenia Aquino RPh - 10/13/2022 2:16 PM EST [facility] received prescription(s) for Xifaxan from Dr. Huggins's office. Benefits investigation was conducted, indicating that NO prior authorization is required by pt's planwith [employer] [facility]. Copay is $421.92. [facility] Specialty pharmacy is not able to ship to [place]. Please send prescription to patient's pharmacy of choice locally. ALLERGIES Allergen Reactions Gluten Diarrhea Upset stomach Gas build up Jesenia Aquino RPh Clinical Pharmacist, Hepatology & HCV [facility] P: ; F: Pool: P SPEC GROUP 2 ([id number]) documented in this encounterEast [facility]11-18-2022 Miscellaneous Notes* Telephone Encounter - Tamia Kirkland MA - 08/12/2022 8:53 AM EST Check Covermymeds Approvedtoday CaseId:[id number];Status:Approved;Review Type:Prior Auth;Coverage Start Date:07/13/2022;Coverage End Date:08/12/2023; * Telephone Encounter - Nita Chan RN - 08/12/2022 7:59 AM EST PA initiated Hydroxyzine 25 mg Anton: [id number] Nita Chan RN documented in this encounterEast [facility] City Hospital11-15-2022 Instructions* Patient Instructions* Laura Claros RD - 08/09/2022 12:37 PM EST Images from the original note were not included. [facility] MEDICINE FOLLOW UP NUTRITION INSTRUCTIONS We recommend scheduling your Follow-up appointment at the end of your initial appointment. Nutrition Follow-up: In 4-6 weeks with Functional Medicine Registered Dietitian (Alejandra Sanchez Sarah or Katerin) Preparation for Follow-up: Complete a 3 day food record using the Diet, Nutrition and Lifestyle Journal from the Functional Nutrition Portal If follow-up is virtual: scan into Wild Needle or send to before joining your appointment If follow-up is in person: bring to your appointment Your Prescribed Nutrition Plan: CORE + Grain Free Plan from the start. Access the Functional Nutrition Portal in [facility] to access your food plan comprehensive guide, weekly recipe turnaround planner, and food list. Shop for foods and ingredients from the food list. Follow your initial nutrition prescription for 3-8 weeks Your Food Plan: CORE Grain Free The Core Food Plan is designed to nourish and energize the body. Food Plan Principles Focus on Whole Foods Promote clean and organic Consume adequate dietary protein Consume balanced quality fats High in dietary fiber Minimize Simple Sugars Phytonutrient diversity Include Avoid Fruits Healthy oils Lean meats Legumes Nuts Seeds Vegetables Non-starchy vegetables Added sugars: no more than 1 to 3 teaspoons of the following lower glycemic sweeteners should be used daily: barley malt, brown rice syrup, blackstrap molasses, maple syrup, raw honey, coconut sugar, agave, lo neves, fruit juice concentrate, and erythritol. Stevia is also well tolerated by most people, but it is a high-intensity herbal sweetener that requires no more than a pinch for maximum sweetness. Foods high in pesticide residue. Use the Environmental Working Group Dirty Dozen List to choose which foods to prioritize organic. Prioritize buying foods from the 'dirty dozen' list organic: https://www.ewg.org/foodnews/dirty-dozen.php Foods from the 'Clean 15' can be purchased non-organic: https://www.ewg.org/foodnews/clean-fifteen.php Your Food Plan Modifier: Modifier: Grain-Free Please avoid all gluten-containing grains, as well as millet, oats, corn & rice. Pseudo grains or pseudo cereals are fruits or seeds of non-grass species that are consumed in similar ways as grain, but are botanically different. These foods contain many of the same nutrients as whole grains, including iron, fiber, and b-vitamins. The following pseudo grains are allowed on your grain-free elimination diet. Food Type Include: Nutrient Dense Pseudo Grain Pseudo Grains Allowed Amaranth, buckwheat, cassava, quinoa, sorghum, wild rice & teff Tips for Success: 1. Plan from the start. Access the Functional Nutrition Portal in [employer] to access your food plan comprehensive guide, weekly recipe turnaround planner, and food list. Shop for foods and ingredients from the food list. 2. Consume enough food to fuel your body. Pair protein (protein/legumes), healthy fat (oils/nuts & seeds) and whole food carbohydrates (starchy vegetable, fruit, grains as applicable) at each meal. Aim for 5-6 cups of non- starchy veggies throughout the day! 3. Balanced Blood Sugar is Anton. Remember to watch out for added refined sugars and artificial sweeteners. Instead, enjoy small amounts of natural sweeteners (honey, maple syrup, blackstrap molasses, liquid stevia), up to about a tablespoon per day. 4. Reach out for support. You may notice that certain elements of the food plan are more challenging for you, or that you need to personalize your initial food plan further. If you could use additional guidance, please don't hesitate to reach out! 5. Remember to hydrate. Symptoms of dehydration can often be confused with hunger or cause low energy. Review your food plan for the best hydration options. How to Access [employer] Your Food Plan Resources: Accessing on [employer] To access [employer], please visit: [email or web address] to create a new account. Step 1: Create Your Account: Complete the following izaguirre: username, password, email address, first name & last name. Click 'Create My New Account'. A message will display. Click continue. Step 2: Verify Your Account: Check your email for an email from [employer]. In the email, click thelink provided to launch [employer] and complete registration. Step 3: Enroll in the 'Functional Nutrition Portal'. Once you have launched [employer], hover over the Find Learning tab, and click on the drop-down option 'Courses'. Search for the course FunctionalNutrition Portal in the search field. In the search results, click the link to access the course. Step 4: Enter the Enrollment Anton Functional Nutrition (this is case sensitive and requires a space-please type this password exactly as shown in red). Step 5: To login after enrollment, visit [email or web address]. Login under 'Non-Employee Login' using the username and password from step #1. Step 6: If you receive an error message that you already have an account, please click 'forgotten your username of password?' to reset your password. Need Help? If you have difficulty accessing this course, please email [email or web address]. ADDITIONAL INSTRUCTIONS: How to Contact Your Functional Medicine Team (Open M-F 8am-5pm): 1. Omazehart is the BEST form of communication to reach the Functional Medicine Team, see test results and request refills. Please allow 72 business hours for a response. Directions for signing up are included in your New Patient Folder. (Or you can go to [email or web address]) 2. For nutrition related questions or concerns, AgentBridget message your physician and include Attn: Laura Claros RD at the top of the message. Wild Needle messaging is meant to support implementation of previously outlined nutrition care plans. In the interest of safe, effective and personalized care, you are asked to schedule a follow-up appointment if: It has been >6 months since your last nutrition appointment Your question requires reassessment or involves a new plan of care Your question concerns a new diagnosis, symptoms(s) and/or health concern Ordering Supplements: Supplements can be ordered from the [facility]'s Online Store: [email or web address] New patients to the Healthy Living Shop will need to enter the provider code FUNCTIONAL to registertheir account. documented in this encounterEast [facility]11-15-2022 History of Present illness Narrative* [facility] 12:21 PM EST GROUP HEALTH RAWHIDE BONE ROLLER COHORT Patient was part of an in-person, group health online health and fitness coach session. Patient received education and participated in discussion about modifiable lifestyle factors and healthy habits, with emphasis on the role of the health online health and fitness coach within the functional medicine model and the Wheel of Wellness. Other topics of discussion included Functional Medicine process and scheduling for follow-up visitsand support prior to next visit. ................................................................................ ....................... FOLLOW UP: Additional support needed: 30-Minute Consultation with Health Tunneller in 2-3 weeks Time Spent with Patient: 30 minutes Signed by: Maylin Mcpherson documented in this encounterEast [facility] City Hospital11-15-2022 Instructions* Patient Instructions* [facility] - 08/09/2022 12:21 PM EST Images from the original note were not included. [facility] HEALTH [facility]WH[facility] BONE ROLLER FOLLOW-UP At the [place] [facility], we focus on the person as a whole: Mind, Body, and Spirit. Working with your Health Tunneller on a regular basis can help you prioritize your next steps and builda strong foundation for healing. Our goal is to ask the right questions while empowering you to discover your own solutions and determine your own path for creating the health you desire. Our focus is on establishing your desired outcomes, working with you to overcome challenges and on determining practical action steps for implementing lifestyle changes. Staff Health Tunneller Follow-Up Timeframe: Within 1-2 Weeks with Functional Medicine Health Tunneller (Bessie Carlisle or Barbra) Schedule your initial 1:1 health coaching appointment and/or Mindfulness group coaching session For 1:1 appointments: schedule by calling the appointment center ([phone] option #1) or through Wild Needle self-scheduling For Mindfulness group coaching: register at [email or web address] 2. Sign up for the DailyBurn Living Shop to order your supplements 3. Create a [employer] account to access the Functional Health Coaching Portal Review the Wheel of Wellness self-assessment tool in preparation for your first 1:1 appointment How to Access the Functional Health Coaching Portal: To access [employer], please visit: [email or web address] to create a new account. Step 1: Create Your Account: Complete the following izaguirre: username, password, email address, first name & last name. Click 'Create My New Account'. A message will display. Click continue. Step 2: Verify Your Account: Check your email for an email from [employer]. In the email, click thelink provided to launch [employer] and complete registration. Step 3: Enroll in the 'Functional Health Coaching Portal'. Once you have launched [employer], hoverover the Find Learning tab, and click on the drop-down option 'Courses'. Search for the course Functional Health Coaching Portal in the search field. In the search results, click the link to access the course. Step 4: Enter the Enrollment Anton Functional Coaching (this is case sensitive). Step 5: To login after enrollment, visit [email or web address]. Login under 'Non-Employee Login' using the username and password from step #1. If you have difficulty accessing this course, please email [email or web address] ADDITIONAL INSTRUCTIONS: How to Contact Your Functional Medicine Team (Open M-F 8am-5pm): Omazehart is the BEST form of communication to reach the Functional Medicine Team, see test results and request refills. Please allow 72 business hours for a response. Directions for signing up are included in your New Patient Folder. (Or you can go to [email or web address]) Ordering Supplements: Supplements can be ordered from the [facility]'s Online Store: [email or web address] New patients to the Healthy We[employer]uc Shop will need to enter the provider code FUNCTIONAL to registertheir account. documented in this encounterEast [facility] Hospital11-15-2022 History of Present illness Narrative* Laura Claros RD - 08/09/2022 10:56 AM EST Images from the original note were not included. [facility] Nutrition Therapy: Initial Assessment (Group) New Patient Shared Nutrition Appointment IN PERSON No Living Matrix, history adapted from provider's notes Class Topic: Introduction to Functional Nutrition and Implementation of Foundational Food Plan Patient Name: Sergo Jacobs Past Medical History: PAST MEDICAL HISTORY Diagnosis Date Abdominal aortic aneurysm without rupture 03/11/[address] Singh Benign prostatic hyperplasia with urinary hesitancy 12/13/2019 Had 10h of urinary retention, Voided x2 since chang removed but small volume Begun on flomax 12/11 Obtain postvoid residual to ensure no overflow incontinence Bilateral carotid artery stenosis 08/20/2018 Celiac disease 08/31/2010 Dermatophytosis of nail Diarrhea Disorders of bursae and tendons in shoulder region, unspecified 09/08/2013 Diverticulosis of large intestine Elevated hemoglobin A1c 02/10/2021 Hypertension, essential 02/02/2018 Internal hemorrhoids without mention of complication 05/05/2008 Medicare annual wellness visit, subsequent 02/08/2017 Medicare part B: 09/25/2012 last done: 03/27/2019 Mixed hyperlipidemia 11/30/2010 Neck pain, chronic 04/25/2017 Peripheral vascular disease (HCC) 02/25/2016 Stage 3a chronic kidney disease (HCC) 02/10/2021 Synovial cyst of right popliteal space 02/14/2022 Vitamin D deficiency 04/06/2009 Allergies: Gluten Current Medications/Supplements Current Outpatient Medications on File Prior to Visit Medication Sig hydrOXYzine HCl (ATARAX) 25 mg tablet Take 1 tablet by mouth three times daily as needed for itching/rash. metoprolol tartrate, short acting, (LOPRESSOR) 50 mg tablet Take 1 tablet by mouth twice daily. milk thistle seed extract 200 mg cap Take by mouth. turmeric (CURCUMIN MISC) selenium 200 mcg tablet Take 1 tablet by mouth once daily. Flaxseed Oil 1,000 mg cap Take by mouth. (Patient not taking: Reported on 08/08/2022) OTC PRODUCT Liver md 2 caps daily OTC PRODUCT Arterial protect one cap dialy OTC PRODUCT digestzymes-- pancreatic enzymes (Patient not taking: Reported on 08/08/2022) GLUTATHIONE ORAL Take by mouth. tamsulosin (FLOMAX) 0.4 mg Take 1 capsule by mouth once daily. MAGNESIUM ORAL Take 600 mg by mouth once daily. Glutamine (L-GLUTAMINE) 500 mg cap Take by mouth once daily. ubidecarenone (COQ-10 ORAL) Take 200 mg by mouth once daily. VITAMIN K2 ORAL Take 550 mcg by mouth once daily. cyanocobalamin/folic ac/vit B6 (HOMOCYSTEINE FORMULA ORAL) Take by mouth once daily. 2 capsules (Patient not taking: Reported on 08/08/2022) Lactobacillus acidophilus (PROBIOTIC ORAL) Take by mouth once daily. (Patient not taking: Reported on 08/08/2022) triamcinolone acetonide (KENALOG) 0.1 % cream Apply 1 application to affected area twice daily as needed (Avoid use on the face and eyelids). cholecalciferol (VITAMIN D3) 5,000 unit tab Take 1 tablet by mouth once daily. homeopathic drugs (PROSTATE ORAL) (Patient not taking: Reported on 08/08/2022) cholestyramine (QUESTRAN) 4 gram packet prn ZINC ORAL Take 50 mg by mouth once daily. TESTOSTERONE, BULK, MISC Cream CYANOCOBALAMIN, VITAMIN B-12, (VITAMIN B-12 ORAL) Take by mouth once daily. (Patient not taking: Reported on 08/08/2022) Aspirin 81 mg tab Take 1 tablet by mouth once daily. No current facility-administered medications on file prior to visit. 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 Dx in 2011 with collagenous colitis . Noting in September 2021 passing of worm (brought into office) - use of Black Curtice and antiparasitic cleanse recommended by family member 2. Itching Nutrition Assessment (08/09/22) Digestive symptoms: Yes, bloated feeling , diarrhea, passing gas-gas 1 hr after meal- uses gas x Other relevant symptoms: Itching, skin rash Food and Nutrition History (special diet(s) or nutritional program): Yes No gluten / grains (limited). Limiting lectins. Celiac Dx Adverse Reactions to Foods: Yes, reports gas with beans.Gluen- Celiac dx noted per chart Diet Recall: Yes from provider notes B: -Rice chex - fruit. [place] sausage L: salad D: Beets, squash, fish / beef , eggs (pastured raised) Snacks: coconut ice cream daily Beverages: - Water with lemon - + daily - Camomile tea. - Limiting coffee - Some juice ([place]) - no soda. Anthropometrics There were no vitals taken for this visit. Last Height: Last 1 Encounter Ht Readings: Date: Ht: 08/08/2022 172.7 cm (5' 8 ) Last Weight: Last Wt 08/08/22 : 68 kg (150 lb) 06/14/22 : 69.4 kg (153 lb) 04/04/22 : 66.7 kg (147 lb) Wt: 68 kg (150 lb) BMI: 22.81 kg/(m^2) Learning Needs Assessment: Barriers to Learning: Ready to Learn (no barriers noted) Assessed motivation to learn: low Nutrition Diagnosis: Altered GI function (NC-1.4) related to Celiac Disease, IBS-D as evidenced by patient reported digestive symptoms Nutrition Intervention 08/09/2022: Nutrition Education Content and Nutrition Education Application Current Nutrition Goal(s): reduce diet-related inflammation suspected as symptom trigger and identify food sensitivities suspected as symptom trigger Plan from the start. Access the Functional Nutrition Portal in [employer] to access your food plan comprehensive guide, weekly recipe turnaround planner, and food list. Shop for foods and ingredients from the food list. Follow your initial nutrition prescription for 3-8 weeks Your Food Plan: CORE Grain Free The Core Food Plan is designed to nourish and energize the body. Food Plan Principles Focus on Whole Foods Promote clean and organic Consume adequate dietary protein Consume balanced quality fats High in dietary fiber Minimize Simple Sugars Phytonutrient diversity Include Avoid Fruits Healthy oils Lean meats Legumes Nuts Seeds Vegetables Non-starchy vegetables Added sugars: no more than 1 to 3 teaspoons of the following lower glycemic sweeteners should be used daily: barley malt, brown rice syrup, blackstrap molasses, maple syrup, raw honey, coconut sugar, agave, lo neves, fruit juice concentrate, and erythritol. Stevia is also well tolerated by most people, but it is a high-intensity herbal sweetener that requires no more than a pinch for maximum sweetness. Foods high in pesticide residue. Use the Environmental Working Group Dirty Dozen List to choose which foods to prioritize organic. Prioritize buying foods from the 'dirty dozen' list organic: https://www.Biotteryg.org/foodnews/dirty-dozen.php Foods from the 'Clean 15' can be purchased non-organic: https://www.CV-Sight.org/foodnews/clean-fifteen.php Your Food Plan Modifier: Modifier: Grain-Free Please avoid all gluten-containing grains, as well as millet, oats, corn & rice. Pseudo grains or pseudo cereals are fruits or seeds of non-grass species that are consumed in similar ways as grain, but are botanically different. These foods contain many of the same nutrients as whole grains, including iron, fiber, and b-vitamins. The following pseudo grains are allowed on your grain-free elimination diet. Food Type Include: Nutrient Dense Pseudo Grain Pseudo Grains Allowed Amaranth, buckwheat, cassava, quinoa, sorghum, wild rice & teff Tips for Success: 1. Plan from the start. Access the Functional Nutrition Portal in [facility] to access your food plan comprehensive guide, weekly recipe turnaround planner, and food list. Shop for foods and ingredients from the food list. 2. Consume enough food to fuel your body. Pair protein (protein/legumes), healthy fat (oils/nuts & seeds) and whole food carbohydrates (starchy vegetable, fruit, grains as applicable) at each meal. Aim for 5-6 cups of non- starchy veggies throughout the day! 3. Balanced Blood Sugar is Anton. Remember to watch out for added refined sugars and artificial sweeteners. Instead, enjoy small amounts of natural sweeteners (honey, maple syrup, blackstrap molasses, liquid stevia), up to about a tablespoon per day. 4. Reach out for support. You may notice that certain elements of the food plan are more challenging for you, or that you need to personalize your initial food plan further. If you could use additional guidance, please don't hesitate to reach out! 5. Remember to hydrate. Symptoms of dehydration can often be confused with hunger or cause low energy. Review your food plan for the best hydration options. How to Access [employer] Your Food Plan Resources: Accessing on [employer] To access [employer], please visit: [email or web address] to create a new account. Step 1: Create Your Account: Complete the following izaguirre: username, password, email address, first name & last name. Click 'Create My New Account'. A message will display. Click continue. Step 2: Verify Your Account: Check your email for an email from [employer]. In the email, click thelink provided to launch [employer] and complete registration. Step 3: Enroll in the 'Functional Nutrition Portal'. Once you have launched [employer], hover over the Find Learning tab, and click on the drop-down option 'Courses'. Search for the course FunctionalNutrition Portal in the search field. In the search results, click the link to access the course. Step 4: Enter the Enrollment Anton Functional Nutrition (this is case sensitive and requires a space-please type this password exactly as shown in red). Step 5: To login after enrollment, visit [email or web address]. Login under 'Non-Employee Login' using the username and password from step #1. Step 6: If you receive an error message that you already have an account, please click 'forgotten your username of password?' to reset your password. Need Help? If you have difficulty accessing this course, please email [email or web address]. Adherence Potential to Goals/Care Plan: Low Nutrition Monitoring & Evaluation: Adherence to food plan, changes in symptom frequency and intensity, nutrition-related laboratory data Criteria: Dietary recall, laboratory results, subjective symptom response Education Materials Provided: Food Plan Comprehensive Guide, Weekly Quiller Hand and Recipes, Phytonutrient Spectrum Foods, Product Guide, Simple Meal and Snack Ideas Follow up: 4 Weeks Time Spent: 60 minutes Referred/Supervised by: Kathy Huggins MD Consult Billing Type: Group/60 minutes Number of Increments: 2 (60 minutes) Signed by: Laura Claros RD [facility] Miscellaneous Notes* Telephone Encounter - Madhuri Rivas Ma - 08/08/2022 10:34 AM EST GIFX shipped to: [facility] [address] [place] [address] [facility] History of Present illness Narrative* Kathy Huggins MD - 08/08/2022 9:22 AM EST FUNCTIONAL MEDICINE INITIAL ASSESSMENT Patient: [facility] ALLERGIES Allergen Reactions Gluten Diarrhea Upset stomach Gas build up Current Outpatient Medications Medication Sig Dispense Refill metoprolol tartrate, short acting, (LOPRESSOR) 50 mg tablet Take 1 tablet by mouth twice daily. 90 tablet 3 milk thistle seed extract 200 mg cap Take by mouth. turmeric (CURCUMIN MISC) selenium 200 mcg tablet Take 1 tablet by mouth once daily. OTC PRODUCT Liver md 2 caps daily OTC PRODUCT Arterial protect one cap dialy GLUTATHIONE ORAL Take by mouth. MAGNESIUM ORAL Take 600 mg by mouth once daily. Glutamine (L-GLUTAMINE) 500 mg cap Take by mouth once daily. ubidecarenone (COQ-10 ORAL) Take 200 mg by mouth once daily. VITAMIN K2 ORAL Take 550 mcg by mouth once daily. triamcinolone acetonide (KENALOG) 0.1 % cream Apply 1 application to affected area twice daily as needed (Avoid use on the face and eyelids). 60 g 2 cholecalciferol (VITAMIN D3) 5,000 unit tab Take 1 tablet by mouth once daily. cholestyramine (QUESTRAN) 4 gram packet prn ZINC ORAL Take 50 mg by mouth once daily. TESTOSTERONE, BULK, MISC Cream Aspirin 81 mg tab Take 1 tablet by mouth once daily. 0 Flaxseed Oil 1,000 mg cap Take by mouth. (Patient not taking: Reported on 08/08/2022) OTC PRODUCT digestzymes-- pancreatic enzymes (Patient not taking: Reported on 08/08/2022) tamsulosin (FLOMAX) 0.4 mg Take 1 capsule by mouth once daily. 90 capsule 3 cyanocobalamin/folic ac/vit B6 (HOMOCYSTEINE FORMULA ORAL) Take by mouth once daily. 2 capsules (Patient not taking: Reported on 08/08/2022) Lactobacillus acidophilus (PROBIOTIC ORAL) Take by mouth once daily. (Patient not taking: Reported on 08/08/2022) homeopathic drugs (PROSTATE ORAL) (Patient not taking: Reported on 08/08/2022) CYANOCOBALAMIN, VITAMIN B-12, (VITAMIN B-12 ORAL) Take by mouth once daily. (Patient not taking: Reported on 08/08/2022) No current facility-administered medications for this visit. PAST MEDICAL HISTORY Diagnosis Date Abdominal aortic aneurysm without rupture 03/11/[address] Singh Benign prostatic hyperplasia with urinary hesitancy 12/13/2019 Had 10h of urinary retention, Voided x2 since chang removed but small volume Begun on flomax 12/11 Obtain postvoid residual to ensure no overflow incontinence Bilateral carotid artery stenosis 08/20/2018 Celiac disease 08/31/2010 Dermatophytosis of nail Diarrhea Disorders of bursae and tendons in shoulder region, unspecified 09/08/2013 Diverticulosis of large intestine Elevated hemoglobin A1c 02/10/2021 Hypertension, essential 02/02/2018 Internal hemorrhoids without mention of complication 05/05/2008 Medicare annual wellness visit, subsequent 02/08/2017 Medicare part B: 09/25/2012 last done: 03/27/2019 Mixed hyperlipidemia 11/30/2010 Neck pain, chronic 04/25/2017 Peripheral vascular disease (HCC) 02/25/2016 Stage 3a chronic kidney disease (HCC) 02/10/2021 Synovial cyst of right popliteal space 02/14/2022 Vitamin D deficiency 04/06/2009 PAST SURGICAL HISTORY Procedure Laterality Date ABD AORTA ANEURYSM REPAIR 11/2019 COLONOSCOPY FLX DX W/COLLJ SPEC WHEN PFRMD 03/23/2004 Colonoscopy COLONOSCOPY FLX DX W/COLLJ SPEC WHEN PFRMD 05/05/2008 Colonoscopy, repeat 10 yrs PAST SURGICAL HISTORY OF 04/14/2004 excision of lesion neck PAST SURGICAL HISTORY OF 02/21/1992 lesion removed from rectum Social History Tobacco Use Smoking status: Never Smokeless tobacco: Never Substance Use Topics Alcohol use: No Drug use: Never EVALUATION MSQ: LM not completed Patient Entered Questionnaire PROMIS Scale T-Scores -- HIGHER SCORES BETTER PROMIS Global Health - (T-Scores - the mean of general population = 50. Five points is a clinicallymeaningful difference.) 08/03/2022 08/03/2022 08/03/2022 Physical T-Score 47.7 47.7 47.7 Mental T-Score 53.3 53.3 53.3 Patient presents with: New Patient Change In Bowel Habits Patient Goals: 1., Abdominal pain - noting 15 years with abdominal symptoms of loose stool and bloating. progressive Noting food sensitivity. Dx in 2011 with collagenous colitis . Noting in September 2021 passing of worm (brought into office) - use of Black Curtice and antiparasitic cleanse recommended by family member 2. Itching - noting long body - varying places - no rhyme or reason for location. Noting hot showers with some relief. Living in [place] from Jul to Dec then in [facility]. Noting skin with rash along back at times. Noting no oral relief HPI: 87 y/o male with hx of HTN, BPH with LUTS (on Flomax) and IBS-D : FT. VAGINAL . NO complication Breast No sugar in diet. Born in [place]grains / grass [place]) --> [place] --> [place], [place]) Toxins - none Elementary: No learning or behavioral issues. Rare tonsil reoccurrence infections. Middle: No recreational activities. HS: No work. Lifestyle and Exposure History: Diet- No gluten / grains (limited). Limiting lectins Meals - Breakfast -Rice chex - fruit. [place] sausage - Lunch - Salad with - Dinner - Beets, squash, fish / beef , eggs (pastured raised) Snack Coconut ice cream Drink - Water with lemon - + daily - Camomile tea. - Limiting coffee - Some juice ([place]) - no soda. Bowel Habits: Varies. [place] Type 5 to 7 (diet shifting?) Supplement? Frequency 3 to 6 times. Minimal mucus. No blood Sleep- 9 hours . Usually rested. Snoring. Onset - < 10 minutes Time Asleep - fragmented. Daytime Napping - sometimes. Exercise- hiking. 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 Tested. No electrolytes added back. Fish consumption Yes Mold Yes - prior home with some flooding with suspicion. Minimal at current home Chemical/Industrial/Pesticides Yes Chemical sensitivities Yes Foreign travel/Frequent airplane travel Yes - food poisoning Supplements: Current Outpatient Medications on File Prior to Visit Medication Sig metoprolol tartrate, short acting, (LOPRESSOR) 50 mg tablet Take 1 tablet by mouth twice daily. milk thistle seed extract 200 mg cap Take by mouth. turmeric (CURCUMIN MISC) selenium 200 mcg tablet Take 1 tablet by mouth once daily. OTC PRODUCT Liver md 2 caps daily OTC PRODUCT Arterial protect one cap dialy GLUTATHIONE ORAL Take by mouth. MAGNESIUM ORAL Take 600 mg by mouth once daily. Glutamine (L-GLUTAMINE) 500 mg cap Take by mouth once daily. ubidecarenone (COQ-10 ORAL) Take 200 mg by mouth once daily. VITAMIN K2 ORAL Take 550 mcg by mouth once daily. triamcinolone acetonide (KENALOG) 0.1 % cream Apply 1 application to affected area twice daily as needed (Avoid use on the face and eyelids). cholecalciferol (VITAMIN D3) 5,000 unit tab Take 1 tablet by mouth once daily. cholestyramine (QUESTRAN) 4 gram packet prn ZINC ORAL Take 50 mg by mouth once daily. TESTOSTERONE, BULK, MISC Cream Aspirin 81 mg tab Take 1 tablet by mouth once daily. Flaxseed Oil 1,000 mg cap Take by mouth. (Patient not taking: Reported on 08/08/2022) OTC PRODUCT digestzymes-- pancreatic enzymes (Patient not taking: Reported on 08/08/2022) tamsulosin (FLOMAX) 0.4 mg Take 1 capsule by mouth once daily. cyanocobalamin/folic ac/vit B6 (HOMOCYSTEINE FORMULA ORAL) Take by mouth once daily. 2 capsules (Patient not taking: Reported on 08/08/2022) Lactobacillus acidophilus (PROBIOTIC ORAL) Take by mouth once daily. (Patient not taking: Reported on 08/08/2022) homeopathic drugs (PROSTATE ORAL) (Patient not taking: Reported on 08/08/2022) CYANOCOBALAMIN, VITAMIN B-12, (VITAMIN B-12 ORAL) Take by mouth once daily. (Patient not taking: Reported on 08/08/2022) No current facility-administered medications on file prior to visit. Review of Systems Constitutional: Negative for activity change, appetite change, fatigue and fever. HENT: Positive for dental problem. Negative for congestion, sinus pressure, sinus pain and trouble swallowing. Eyes: Positive for visual disturbance (glasses). Respiratory: Negative for shortness of breath. Cardiovascular: Negative for palpitations. Gastrointestinal: Positive for abdominal distention (1 hour after meal 0- use of Gas-X, bowel movement) and diarrhea. Negative for abdominal pain, nausea and vomiting. Genitourinary: Flow - reduced prior to flomax Musculoskeletal: Negative for arthralgias and myalgias. Skin: Positive for rash. Allergic/Immunologic: Positive for food allergies. Negative for environmental allergies. Psychiatric/Behavioral: Negative for hallucinations and sleep disturbance. The patient is not hyperactive. 08/08/22 0916 BP: 167/68 Pulse: (Abnormal) 54 Temp: 36.7 C (98 F) SpO2: 99% Weight: 68 kg (150 lb) Height: 172.7 cm (5' 8 ) Physical Exam Vitals and nursing note reviewed. Constitutional: General: He is not in acute distress. Appearance: Normal appearance. He is not ill-appearing. HENT: Head: Normocephalic and atraumatic. Right Ear: Hearing, tympanic membrane, ear canal and external ear normal. Left Ear: Hearing, tympanic membrane, ear canal and external ear normal. Nose: Nose normal. No mucosal edema or rhinorrhea. Mouth/Throat: Lips: [place]. Mouth: Mucous membranes are moist. Dentition: Abnormal dentition (crowded along lower). Pharynx: Uvula midline. No posterior oropharyngeal erythema. Comments: Tongue with fissuring. Light coating Eyes: General: No scleral icterus. Extraocular Movements: Extraocular movements intact. Conjunctiva/sclera: Conjunctivae normal. Pupils: Pupils are equal, round, and reactive to light. Neck: Thyroid: No thyromegaly. Vascular: No carotid bruit or JVD. Trachea: No tracheal deviation. Cardiovascular: Rate and Rhythm: Regular rhythm. Bradycardia present. Pulses: Normal pulses. Heart sounds: Murmur heard. Systolic murmur is present with a grade of 4/6. No friction rub. No gallop. Pulmonary: Effort: Pulmonary effort is normal. No respiratory distress. Breath sounds: Normal breath sounds. No wheezing or rales. Chest: Chest wall: No tenderness. Abdominal: General: Bowel sounds are normal. There is no distension. Palpations: Abdomen is soft. Tenderness: There is no abdominal tenderness. There is no right CVA tenderness or left CVA tenderness. Musculoskeletal: General: Normal range of motion. Cervical back: Normal range of motion and neck supple. Lymphadenopathy: Cervical: No cervical adenopathy. Skin: General: Skin is warm and dry. Findings: No erythema or rash. Neurological: Mental Status: He is alert. Cranial Nerves: No cranial nerve deficit. Sensory: Sensation is intact. Gait: Gait is intact. Deep Tendon Reflexes: Reflex Scores: Patellar reflexes are 2+ on the right side and 2+ on the left side. Psychiatric: Mood and Affect: Mood and affect normal. Thought Content: Thought content normal. Cognition and Memory: Memory normal. Judgment: Judgment normal. SKIN Temperature Hands: normal Texture of Skin: Thin Color: Normal Hydration: Normal Periorifice: Normal Lesions: Atopy and Mult. Nevi EXTREMITIES Nails: vertical ridging Peripheral Sensation: Normal Muscle Strength: Normal Muscle Symmetry: Normal Initial Functional Medicine Assessment Underlying Causes: toxins, adverse reaction to food, nutritional insufficiencies or excessess, sleep Antecedents: Abx - minimal Triggers/Mediators: SAD Travel [place] /[place] Medication Mold exposure Sleep? Dental fillings Today's Focus: gut healing, detoxification Nutritional Assessment Matrix Nodes ASSIMILIATION: Dysbiosis, Adverse Food Reaction , and Malabsorption STRUCTURAL INTEGRITY: Cardiomyopathy and Intestinal Permeability Aneurysm repair COMMUNICATION: Adrenal Dysfunction , Depression (Neurotransmitter Dysfunction) , and Anxiety (Neurotransmitter Dysfunction) TRANSPORT: Hypertension , Congestive Heart Failure , and Endothelial dysfunction DEFENSE AND REPAIR: Skin rash ENERGY: Fatigue / brain fog DETOXIFICATION: Exposure to heavy metals , Exposure to POP's, Mold Exposure, and Chemical Sensitivity Assessment Assessment: K58.0 Irritable bowel syndrome with diarrhea (primary encounter diagnosis) R14.0 Gassiness I35.1 Aortic valve insufficiency, etiology of cardiac valve disease unspecified I10 Hypertension, essential N40.1, N13.8 BPH with obstruction/lower urinary tract symptoms 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 Would check stool for microbiome. ? Issue with diet shift - may need less histamine foods. Overgrowth - check Elizabeth Stool profile. Would ask opinion of cardiology given murmur and hx of AI. No issues at this time but further assessment woul db ewarranted to ensure no development. Use of Atarax for itching can be utilized. May need to assess for mycotoxin assessment with itching- low histamine foods. Plan and Lifestyle Prescription Plan/Instructions/Resources: 1. Complete labs as ordered!! GI effects stool test - stop GI supplements for 7-10 days before collecting your stool (ex:probiotics, betaine HCL, sweetish bitters, saccharomyces, biocidin, herbal antibiotics, GI revive, glutatamine). Digestive enzymes are appropriate to stay on - read the instructions! Schedule a follow up at least 4 to 6 weeks after you submit the kit. We will go over this in the office as the level of detail exceeds use of MyChart for interpretation. Cardiology - referral placed - I did specify Dr. Nuñez due to your family seeing him previously Nutrition 2. Review and implement diet factors recommended through nutritional visit - use your health online health and fitness coach for discussion on how to implement Supplement Support 3. Review supplements - None at this time. Pending labs may recommend [facility] offers an easy to use, convenient way to order supplementation recommended by your provider through the [facility]. All of the products offered are considered high-quality, and adhere to specific criteria for quality and effectiveness including good manufacturing practices, use of clean products, free of fillers, binders, and other antigens. In addition, we follow third republican analysis for independent verification of active ingredients. Get started by following three easy steps: Visit the following webpage: [email or web address] [place] [employer] Statements on this site have not been evaluated by the Food and Drug Administration Create an account: Enter your first name, last name, email address which will be your username Create password Select a referring physician from the dropdown box. If they are not listed, select other If you are a new patient, enter the following provider code: functional Order recommended supplementation Enter the supplement name in the search box Add all supplements to your cart and proceed to checkout. Orders of $100 or more qualify for free shipping. *Please allow 5-7 business days for delivery. For issues with your MRN please call [phone] Stress Management [employer] Neuro -new technology to use a wearable device to retrain brain and focus on nervous system reduction. To learn more of this technology by going to (ydz-phs-errjj) https://PLASTIQ/ Please look into this Heart Rate Variability BioFeedback Tool (www.heartmath.org). You can see the research that has been put into this very valuable tool under the Resources and Research tabs. This can be used as an jason on your smart phone.To use this technology will need to buy a sensor that plugs right into the phone for about $100. First, get one of the Heart Math booklets off Behavioral Recognition Systems thatfits your 'go to' emotion - Transforming Anger, Anxiety, Stress, Depression, or PTSD. Five minutes 3 times a day is more effective than 15 minutes in one sitting. A regular, daily meditation practice of at least 15-20 minutes will change your brain--as well as your genes! Preliminary studies demonstrate gene expression is modified in those who meditate regularly leading to down-regulation of pro- inflammatory genes. This results in reduced inflammation, as well as improvements in the body's response to stress via the hormone cortisol, in the intervention groups vs. the controls. Although more research is needed, these findings suggest a definite role for meditation in the treatment and prevention of chronic inflammatory conditions. Smart phone apps to begin a meditative practice: Headspace (free for first 10 days) Insight Meditation Timer- (Free)-Great all-around jason to use for guided meditations of many different types and lengths or just to use as a tool to time and track your meditation practice. This is myabsolute favorite! Calm- (Free) Walking Meditations-($1.99)- Get your walk AND meditation done together. A good way to start out for individuals who feel they just can't sit still to begin a meditative practice. Vagal Tone Look at the following work on harnessing the relaxation response by the following providers (you should look at one which appeals to you fully) . --- Polyvagal theory (Richard Walker) https://www.Perceivant/ --- Dynamic Neural Retraining System - (Karlene Muñoz) [email or web address] --- Fournier Program - (Drew Fournier) [email or web address]/ Finding time for self (no multitasking) at this time to dedicate to breathing / relaxation process.Work on cultivating kevin! Future Plans (for provider use): Follow up: Please schedule a follow up visit in- person or virtual with the following Caregivers: Provider: 8weeks, Hospital Pharmacist: 4 weeks, and Health Tunneller: 2 weeks LIFESTYLE PRESCRIPTION Functional Nutrition: CORE: Grain Free: The Core Food Plan is a first step towards healthier eating and is designed to encourage eating in a way that will nourish and energize the body. It takes elements from the Mediterranean diet and the xochitl-gatherer approach (sometimes referred to as the Paleo diet), and encourages eating low- glycemic carbohydrates. During your nutrition appointment you will learn about how to access your food plan resources in MyLearning. At [facility], we focus on the person as a whole. Mind, Body, and Spirit. Our Health Coaches are here to support you along this journey. Health Coaching is a valuable (& FREE) service at the [facility] which we offer to all of our patients. Their role is to help you put your functional medicine care plan into action and help you achieve your health goals. Working with your Health Tunneller on a regular basis can help you prioritize your next steps and build a strong foundation for healing. Your Health Tunneller will partner with you to develop a personalized plan for movement, sleep, and stress management. Exercise and Movement: Being consistently active helps you to live longer, have a better quality of life, improve your mental health, and improve your self-image. No matter your current activity level, there is a form of movement for you! Our Health Coaches can share valuable resources, provide accountability, help with goal setting, and offer encouragement! Sleep Health: Getting a good night s sleep is not just about quantity, but also quality. Both are critical to helping the body and mind repair and replenish from the day s activities. Among the many health benefits, a good night s sleep helps improve memory, boost the immune system, enhance mood, lower stress hormones and can even reduce pain! Learn how to protect your sleep with one of our Health Coaches. Your body and mind will thank you! Stress Resilience and Rastafarian: Don t let stress run the show! In a world full of stress and demands, practicing self-care through restorative activities is critical. Restorative activities, such as meditation, guided imagery, breathing techniques, gratitude journaling, and mindfulness, are proven ways to not just calm the mind, but also heal the body. During your health coaching appointment, you ll be able to build valuable skills that will help younot just manage stress, but thrive! Referrals Health Coaching: Within the next two weeks, please schedule with your Health Tunneller in order to create an individualized lifestyle plan. You can call to schedule. Behavioral Health Therapist: If I recommend counseling or individual therapy, consider schedule an individual appointment with our Functional Medicine Behavioral Health Therapist after your visit today. A Behavioral Health Therapist helps patients identify and understand feelings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 Alcohol use: No Drug use: Never MEDICATIONS: tamsulosin (FLOMAX) 0.4 mg Take 1 capsule by mouth once daily. metoprolol tartrate, short acting, (LOPRESSOR) 50 mg tablet Take 1 tablet by mouth twice daily. MAGNESIUM ORAL Take 600 mg by mouth once daily. Glutamine (L-GLUTAMINE) 500 mg cap Take by mouth once daily. ubidecarenone (COQ-10 ORAL) Take 200 mg by mouth once daily. VITAMIN K2 ORAL Take 550 mcg by mouth once daily. cyanocobalamin/folic ac/vit B6 (HOMOCYSTEINE FORMULA ORAL) Take by mouth once daily. 2 capsules Lactobacillus acidophilus (PROBIOTIC ORAL) Take by mouth once daily. triamcinolone acetonide (KENALOG) 0.1 % cream Apply 1 application to affected area twice daily as needed (Avoid use on the face and eyelids). magnesium oxide (MAG-OX) 400 mg (241.3 mg magnesium) tablet Take 0.5 tablets by mouth once daily. cholecalciferol (VITAMIN D-3) 5,000 unit tab Take 1 tablet by mouth once daily. homeopathic drugs (PROSTATE ORAL) cholestyramine (QUESTRAN) 4 gram packet prn ZINC ORAL Take 50 mg by mouth once daily. TESTOSTERONE, BULK, MISC Cream CYANOCOBALAMIN, VITAMIN B-12, (VITAMIN B-12 ORAL) Take by mouth once daily. Aspirin 81 mg tab Take 1 tablet by mouth once daily. ALLERGIES: ALLERGIES Allergen Reactions Gluten Diarrhea Upset stomach Gas build up Diagnostic tests reviewed for today's visit: PVR: Compared to prior study of 02/01/2021, no significant change. RIGHT SIDE Resting right ankle brachial index: 1.15 Normal ankle brachial index at rest in the right leg. Right ankle: Normal at rest. Right small vessel disease versus vasoconstriction. LEFT SIDE Resting left ankle brachial index: 1.13 Normal ankle brachial index at rest in the left leg. Left ankle: Normal at rest. Left small vessel disease versus vasoconstriction. Carotid Duplex IMPRESSION Compared to prior study of 08/20/2018, no significant change. RIGHT SIDE Common carotid artery: Plaque visualized without evidence of hemodynamically significant stenosis. Internal carotid artery: 20-39% stenosis. Vertebral artery: Patent and antegrade flow noted. LEFT SIDE Common carotid artery: Plaque visualized without evidence of hemodynamically significant stenosis. Internal carotid artery: 20-39% stenosis. Vertebral artery: Patent and antegrade flow noted. UD Duplex Aorta IMPRESSION Technically difficult exam due to bowel gas. Compared to prior study of 06/24/2019, Residual sac of abdominal aorta measures 4.78 x 5.22 cm. status post intervention. AORTA Residual sac measuring 4.78 x 5.22 cm. at mid. Non-fenestrated abdominal aortic stent graft noted. No evidence of perigraft flow. Unable to adequately visualize proximal segment due to bowel gas. ARTERIES/GRAFT Right limb throughout: patent . Right common iliac artery Distal-distal to limb: negative for aneurysm . Left limb throughout: patent . Left external iliac artery Proximal-distal to limb: patent . Duplex Pop IMPRESSION Compared to prior study of 03/04/2016, no significant change in bilateral popliteal arteries compared to bilateral arterial duplex. RIGHT SIDE Superficial femoral artery distal: plaque noted without evidence of hemodynamically significant stenosis . Popliteal artery throughout: negative for aneurysm . Non vascular structure noted right popliteal fossa near popliteal artery measuring 2.43 x 1.64 x 1.62 cm. Plaque without stenosis noted throughoutpopliteal artery. LEFT SIDE Superficial femoral artery distal: patent . Popliteal artery throughout: negative for aneurysm . Plaque without stenosis noted throughout popliteal artery. Bhaskar Monroy MD IMPRESSION and PLAN: This office note has been dictated. STAFF PHYSICIAN: Osmin Singh MD DATE OF SERVICE: February 14, 2022 TIME OF SERVICE: 9:35 AM Medical Decision Making documented in this encounter[facility] History of Present illness Narrative* RT Lou(R) - 02/14/2022 9:00 AM EDT Radiology Service Progress Note PATIENT NAME: Sergo Suárez Headings DATE OF SERVICE: February 14, 2022 TIME: 10:21 AM PATIENT IDENTITY VERIFICATION COMPLETED USING TWO (2) IDENTIFIERS: Name and Date of confirmedby patient verbally. FALL SCREENING: Has the patient had 2 falls in the last year or 1 fall with injury or currently using an Ambulatory Assistive Device (Walker, Cane, Wheelchair, Crutches, etc.)? No PATIENT GENDER DATA: Male PATIENT RELEVANT IMPLANT DATA REVIEWED: Not Applicable RADIOLOGY DEPARTMENT: General X-ray: Exam(s) Completed: Abdomen X-Ray: Abdomen with Obliques PERIPHERAL IV DATA: Not applicable SIGNED BY: RT Lou(Roger) February 14, 2022 10:21 AM documented in this encounterEast [facility]05-12-[facility]22 Miscellaneous Notes* Telephone Encounter - Danuta Parry Ma - 02/03/2022 10:27 AM EDT Patient notified. * Telephone Encounter - Kevin Bhagat APRN.CNP - 02/03/2022 7:56 AM EDT Please let patient know overall his lab work shows improvement. His B12 level is high so he can stop the B12 supplement. Also his kidney function has slightly decreased. He needs to stay hydrated andincrease water intake. We will recheck in 2 weeks. Thank you Kevin Bhagat APRN.PENNIE documented in this encounter[facility]-12-[facility]22 Evaluation note* Diagnosis Stage 3a chronic kidney disease (HCC)- Primary Function kidney decreased Unspecified disorder of kidney and ureter documented in [facility] encounter [facility] History of Present illness Narrative* Kezia Dubose MD - 01/28/2022 10:23 AM EDT Welcome To Medicare Visit Medical B eligibility date age 67 Date of last exam none in the past year PAST MEDICAL HISTORY Diagnosis Date Abdominal aortic aneurysm without rupture (HCC) 03/11/[address] Singh Benign prostatic hyperplasia with urinary hesitancy 12/13/2019 Had 10h of urinary retention, Voided x2 since chang removed but small volume Begun on flomax 12/11 Obtain postvoid residual to ensure no overflow incontinence Bilateral carotid artery stenosis 08/20/2018 Celiac disease 08/31/2010 Dermatophytosis of nail Diarrhea Disorders of bursae and tendons in shoulder region, unspecified 09/08/2013 Diverticulosis of large intestine Elevated hemoglobin A1c 02/10/2021 Hypertension, essential 02/02/2018 Internal hemorrhoids without mention of complication 05/05/2008 Medicare annual wellness visit, subsequent 02/08/2017 Medicare part B: 09/25/2012 last done: 03/27/2019 Mixed hyperlipidemia 11/30/2010 Neck pain, chronic 04/25/2017 Peripheral vascular disease (HCC) 02/25/2016 Stage 3a chronic kidney disease (HCC) 02/10/2021 Vitamin D deficiency 04/06/2009 PAST SURGICAL HISTORY Procedure Laterality Date ABD AORTA ANEURYSM REPAIR 11/2019 COLONOSCOP W/ OR W/O [facility] SPEC 03/23/2004 Colonoscopy COLONOSCOP W/ OR W/O [facility] SPEC 05/05/2008 Colonoscopy, repeat 10 yrs PAST SURGICAL HISTORY OF 04/14/2004 excision of lesion neck PAST SURGICAL HISTORY OF 02/21/1992 lesion removed from rectum Gluten Medications reviewed: Yes FAMILY HISTORY Problem Relation Age of Onset Stroke Father other (lupus) Sister Diabetes Brother Diabetes Brother SOCIAL HISTORY: Social History Tobacco Use Smoking status: Never Smoker Smokeless tobacco: Never Used Substance Use Topics Alcohol use: No Drug use: Never Sergo denies regular aerobic exercise. He watches his diet for sodium, low fat and low cholesterol most of the time. List of current specialists seen: End of Live Planning discussed including patients advanced directive wishes: Yes I am willing to follow Sergo's advanced directives. PHQ-2 / Depression screen He in the past two weeks denies having felt down, depressed, hopeless or with little interest or pleasure in doing things. Functional Ability/Safety Screen 1. Was the patient's timed Up and Go test unsteady or longer than 30 seconds? No 2. Does the patient need help with the phone, transportation, shopping,preparing meals, housework, laundry, medications or managing money? No 3. Does your home have rugs in the hallway, lack of grab bars in the bathroom, lack of handrails onthe stairs or have poor lighting? No Hearing Evaluation: normal PHYSICAL EXAM BP 124/62 Pulse 60 Resp 16 Wt 65.3 kg (144 lb) SpO2 98% BMI 21.90 kg/m Alert and oriented X 3: YES Body mass index is 21.9 kg/m . Visual acuity: ASSESSMENT/PLAN: 87 year old male The following prevention plan was discussed during the office visit and provided to the patient: - Glaucoma screening - Lipid panel Kezia Dubose MD Reason for Visit Patient presents with: Establish Care: Transfer of Care Sergo Suárez Headings is a 87 year old male who presents here today for Above Complaints.. Health Maintenance COVID-19 VACCINE(3 - Booster for Moderna series) ADVANCE DIRECTIVE DISCUSSION HPI Patient with Hx of AAA, carotid artery disease, collagenous colitis 15 years ago,PVD, HTN, hyperlipidemia, Vit D def as well as those reviewed and addressed below and in ROS. Collagenous Colitis: dx in 2007, he had bloating, and severe diarrhea. Watery, multiple times a dayand go on for months, Biopsy pretty well showed it. He was initially has on steroids but stop it. On a restricted diet: less starch, gluten free and gluten like lectins, xanthum gum causes him to have issues. Does goat milk, he is able to eat salads, can eat fruits but cannot eat vegetables or beans or peas. 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 Since 2007, he had symptoms of the colitis, and recently was given para 1 and a binder and then theworms came out. He feels better, his symptoms are better, also his itching is better than it ever was. No problem-specific Assessment & Plan notes found for this encounter. PAST MEDICAL HISTORY Diagnosis Date Abdominal aortic aneurysm without rupture (HCC) 03/11/[address] Singh Benign prostatic hyperplasia with urinary hesitancy 12/13/2019 Had 10h of urinary retention, Voided x2 since chang removed but small volume Begun on flomax 12/11 Obtain postvoid residual to ensure no overflow incontinence Bilateral carotid artery stenosis 08/20/2018 Celiac disease 08/31/2010 Dermatophytosis of nail Diarrhea Disorders of bursae and tendons in shoulder region, unspecified 09/08/2013 Diverticulosis of large intestine Elevated hemoglobin A1c 02/10/2021 Hypertension, essential 02/02/2018 Internal hemorrhoids without mention of complication 05/05/2008 Medicare annual wellness visit, subsequent 02/08/2017 Medicare part B: 09/25/2012 last done: 03/27/2019 Mixed hyperlipidemia 11/30/2010 Neck pain, chronic 04/25/2017 Peripheral vascular disease (HCC) 02/25/2016 Stage 3a chronic kidney disease (HCC) 02/10/2021 Vitamin D deficiency 04/06/2009 PAST SURGICAL HISTORY Procedure Laterality Date ABD AORTA ANEURYSM REPAIR 11/2019 COLONOSCOP W/ OR W/O [facility] SPEC 03/23/2004 Colonoscopy COLONOSCOP W/ OR W/O [facility] SPEC 05/05/2008 Colonoscopy, repeat 10 yrs PAST SURGICAL HISTORY OF 04/14/2004 excision of lesion neck PAST SURGICAL HISTORY OF 02/21/1992 lesion removed from rectum FAMILY HISTORY Problem Relation Age of Onset Stroke Father other (lupus) Sister Diabetes Brother Diabetes Brother Social History Tobacco Use Smoking status: Never Smoker Smokeless tobacco: Never Used Substance Use Topics Alcohol use: No Drug use: Never Past medical history, appointments, medications, allergies reviewed. Pertinent Lab/Diagnostic Studies are reviewed and discussed today Current Outpatient Medications: tamsulosin (FLOMAX) 0.4 mg MAGNESIUM ORAL Glutamine (L-GLUTAMINE) 500 mg cap ubidecarenone (COQ-10 ORAL) VITAMIN K2 ORAL cyanocobalamin/folic ac/vit B6 (HOMOCYSTEINE FORMULA ORAL) Lactobacillus acidophilus (PROBIOTIC ORAL) metoprolol tartrate, short acting, (LOPRESSOR) 50 mg tablet homeopathic drugs (PROSTATE ORAL) cholestyramine (QUESTRAN) 4 gram packet ZINC ORAL TESTOSTERONE, BULK, MISC CYANOCOBALAMIN, VITAMIN B-12, (VITAMIN B-12 ORAL) Aspirin 81 mg tab triamcinolone acetonide (KENALOG) 0.1 % cream magnesium oxide (MAG-OX) 400 mg (241.3 mg magnesium) tablet cholecalciferol (VITAMIN D-3) 5,000 unit tab acetaminophen (TYLENOL) 325 mg tablet Review of Systems CONSTITUTIONAL: No fevers, chills night sweats, unintended weight loss CARDIOVASCULAR: No chest pain, dyspnea, palpitations, orthopnea, PND, ankle edema. PULM: No dyspnea, unexplained cough. GI: No dysphagia/odynophagia, problematic reflux, constipation, diarrhea, changes in stool habits, hematochezia, melena. : No new urinary complaints, including dysuria, gross hematuria or pyuria. NEURO: No new balance problems, peripheral weakness/paresthesias or numbness of concern. Physical Exam BP 124/62 Pulse 60 Resp 16 Wt 65.3 kg (144 lb) SpO2 98% BMI 21.90 kg/m General appearance: Well appearing, alert, in no acute distress, well nourished. Skin: Skin color, texture, turgor normal, no suspicious rashes or lesions Head: Normocephalic, no masses, lesions, tenderness or abnormalities Eyes: Anicteric sclera. Pupils are equally round and reactive to light. Extraocular movements are intact. Lungs: Lungs clear to auscultation. No wheezing, rhonchi, rales Heart: RRR without murmur, gallop, or rubs. Extremities: No deformities, edema, skin discoloration, clubbing or cyanosis. Good capillary refill. ASSESSMENT/PLAN: 1. Medicare annual wellness visit, subsequent - ICD9: V70.0, ICD10: Z00.00 (primary diagnosis) - Counseled on healthy diet and regular exercise 2. Elevated hemoglobin A1c - ICD9: 790.29, ICD10: R73.09 - HGB A1C 3. Hypertension, essential - ICD9: 401.9, ICD10: I10 - good control - Continue current medication(s) - Recommended regular aerobic exercise. - Recommend home blood pressure monitoring, to bring results in on next visit - Goal of BP <130/80 - METOPROLOL TARTRATE 50 MG TABLET - CBC + DIFF - COMP METABOLIC PANEL 4. Lower urinary tract symptoms (LUTS) - ICD9: 788.99, ICD10: R39.9 - TAMSULOSIN 0.4 MG CAPSULE 5. Peripheral vascular disease (HCC) - ICD9: 443.9, ICD10: I73. 6. Abdominal aortic aneurysm without rupture (HCC) - ICD9: 441.4, ICD10: I71.4 Stable, repaired in the past. 7. Hypokalemia - ICD9: 276.8, ICD10: E87.6 Need to check labs 8. Hyponatremia - ICD9: 276.1, ICD10: E87.1 9. Stage 3a chronic kidney disease (HCC) - ICD9: 585.3, ICD10: N18.31 CKD: Stage 3, recent labs reviewed, shows GFR is stable, not significantly changed from previous labs. Discussed the importance of staying off the NSAIDs naproxen, motrin, brufen, aleve etc and contrast., adequate hydration Keeping blood pressure under control. 10. Celiac disease - ICD9: 579.0, ICD10: K90.0 - VITAMIN B12 BLOOD - VITAMIN D 25 HYDROXY 11. Vitamin D deficiency - ICD9: 268.9, ICD10: E55.9 Kezia Dubose MD documented in this encounter[facility] NotePhysical Therapy Inpatient Evaluation Medical Diagnosis: syncope, chronic (L) cerebellar lacunar infarct Therapy Diagnosis: Rank Code Description 1 R26.2 Difficulty in walking, not elsewhere classified 2 R26.81 Unsteadiness on feet Demographics: Age: 86Y Gender: Male Primary Language: Colombian Preferred Language: Colombian Referring Service/Team: Medicine Past Medical History: Past Medical History BPH, HTN, HLD, Hx AAA s/p stenting at , Prediabetes mellitus type II currently managing himself with lifestyle/diet, Gluten allergy with issues with intermittent chronic diarrhea. Past Surgical History AAA s/p stenting. OBTAINED FROM [facility] History of Present Illness: Date of Onset: 05/11/21 Additional Information: Acute on chronic diarrhea, N/V, syncopal events Living Situation Home - Independent History of Present Illness The patient is an 86 y/o M w/ PMHx: BPH, HTN, HLD, Hx AAA s/p stenting at , Prediabetes mellitus type II currently managing himself with lifestyle/diet, Gluten allergy who presents to the [facility] on 05/11/21 with history of severe diarrhea 2 months prior with evaluation at [facility] with no obvious source at that time with colonoscopy performed and patient reports no findings including microscopic colitis eventually discharged and his daughter who is an CABLE MACHINE OPERATOR per his report placed him on unclear type of antiparasitic drugs and he takes several supplements with some improvement since then however suddenly on day of presentation he had severe onset diarrhea, diffusely, associated abdominal cramping with nausea and emesis with unfortunately 3 separate syncopal events over the day eventually prompting ED presentation. He denies any fevers or chills. He describes the abdominal cramping as an aching sensation constantly and more severe cramping when he is about to have a diarrheal episode. Work-up in the ED included CBC with WC 12.6, hemoglobin 16, platelet 241 with left shift, CMP with sodium 135, chloride 97, BUN/creatinine 33/1.76, glucose 142 otherwise unremarkable hepatic profile, high-sensitivity troponin 13.4, lipase 20, pending SARS Covid PCR, given history of fall ED physician requested CT head [facility] PATIENT NAME: HEADINGS,SERGO Panda Ashlie Shearer MEDICAL REC #: [id number] [place] [address] ADMIT DATE: 05/11/21 SERVICE DATE: 05/14/21 Physical Therapy Assessment Report ATTENDING PHY: Keyonna Welch MD which is pending upon evaluation of patient. OBTAINED FROM Hand Date of Admission: 05/11/2021 11:00:00 PM Rehabilitation Precautions/Restrictions: MAINTAIN 02>92% Imaging/Testing Results from Chart: Head CT - No CT evidence of acute intracranial abnormality. 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 SUBJECTIVE Prior Level of Functioning: Indoor Mobility: Patient completed the activities by him/herself, with or without an assistive device, with no assistance from a helper. Stairs: Patient completed the activities by him/herself, with or without an assistive device, with no assistance from a helper. Pt states he was not using an assistive device for ambulation [employer]. He was I w/all self care tasks and shares homemaking tasks and yardwork w/. He drives [employer] Prior Device Use: Performance [id number]. Prior Device None of Above Yes Patient/Caregiver Goals: Patient's functional goals: to go home Pain: Patient currently without complaints of pain. Home Environment: Patient lives with his who can be there around the clock at home as needed , who is able to assist patient at discharge. Patient lives in a single family home. Home is two levels. Patient is not required to manage stairs within the home. First floor full bathroom setup available. No stairs to enter the home. There is a ramp available for home entry. Equipment Owned: Walk-in shower. Social History: Marital Status: M Children: It is unknown whether patient has children Employment Status: none Recreational Activities/Hobbies: entemology OBJECTIVE Cognitive Screen Responsiveness: Alert. Orientation: Oriented to person, place, time, and situation. Following Commands: Patient is able to follow 3-step commands. [facility] PATIENT NAME: ADRIANNES,SERGO Panda [facility] Dr. Shearer MEDICAL REC #: [id number] [place] [address] ADMIT DATE: 05/11/21 SERVICE DATE: 05/14/21 Physical Therapy Assessment Report ATTENDING PHY: Keyonna Welch MD Range of Motion Upper Extremity: Grossly within functional limits Lower Extremity: Grossly within functional limits Strength Upper Extremity: Grossly within functional limits Lower Extrem (more content not included)...[facility]08-20-2021 NoteOccupational Therapy Inpatient Evaluation Medical Diagnosis: INTRACTABLE NAUSEA AND VOMITING OCCUPATIONAL PROFILE AND HISTORY Therapy Diagnosis: Rank Code Description 1 Z74.1 Need for assistance with personal care Demographics: Age: 86Y Gender: Male Primary Language: Colombian Preferred Language: Colombian Referring Service/Team: Medicine Past Medical History: Past Medical History BPH, HTN, HLD, Hx AAA s/p stenting at , Prediabetes mellitus type II currently managing himself with lifestyle/diet, Gluten allergy with issues with intermittent chronic diarrhea. Past Surgical History AAA s/p stenting. OBTAINED FROM [facility] History of Present Illness: 05/11/21 Additional Information: Acute on chronic diarrhea, N/V, syncopal events Living Situation Home - Independent History of Present Illness The patient is an 86 y/o M w/ PMHx: BPH, HTN, HLD, Hx AAA s/p stenting at , Prediabetes mellitus type II currently managing himself with lifestyle/diet, Gluten allergy who presents to the [facility] on 05/11/21 with history of severe diarrhea 2 months prior with evaluation at [facility] with no obvious source at that time with colonoscopy performed and patient reports no findings including microscopic colitis eventually discharged and his daughter who is an CABLE MACHINE OPERATOR per his report placed him on unclear type of antiparasitic drugs and he takes several supplements with some improvement since then however suddenly on day of presentation he had severe onset diarrhea, diffusely, associated abdominal cramping with nausea and emesis with unfortunately 3 separate syncopal events over the day eventually prompting ED presentation. He denies any fevers or chills. He describes the abdominal cramping as an aching sensation constantly and more severe cramping when he is about to have a diarrheal episode. Work-up in the ED included CBC with WC 12.6, hemoglobin 16, platelet 241 with left shift, CMP with sodium 135, chloride 97, BUN/creatinine 33/1.76, glucose 142 otherwise unremarkable hepatic profile, high-sensitivity troponin 13.4, lipase 20, pending SARS Covid PCR, given history of fall ED physician requested CT head which is pending upon evaluation of patient. [facility] PATIENT NAME: ADRIANNES,SERGO Panda [facility] Dr. Shearer MEDICAL REC #: [id number] [place] [address] ADMIT DATE: 05/11/21 SERVICE DATE: 05/14/21 Occupational Therapy Assessment ATTENDING PHY: Keyonna Welch MD OBTAINED FROM [facility] Date of Admission: 05/11/2021 11:00:00 PM Rehabilitation Precautions/Restrictions: FALL RISK, MAINTAIN 02>92% Imaging/Testing Results from Chart: NA Prior Level of Functioning: Self Care: Patient completed the activities by him/herself, with or without an assistive device, with no assistance from a helper. Functional Cognition: Patient completed the activities by him/herself, with or without an assistive device, with no assistance from a helper. Pt states he was not using an assistive device for ambulation [employer]. He was I w/all self care tasks and shares homemaking tasks and yardwork w/. He drives [employer] Patient/Caregiver Goals: Patient's functional goals: to go home Pain: Patient currently without complaints of pain. Home Environment: Patient lives with his who can be there around the clock at home as needed , who is able to assist patient at discharge. Patient lives in a single family home. Home is two levels. Patient is not required to manage stairs within the home. First floor full bathroom setup available. Bath is a walk in shower There are 2 steps to enter the home, with bilateral handrails. There is a ramp available for home entry. on the 2 steps to get into the home there is also a ramp Equipment Owned: None. Marital Status: M Social History: Children: It is unknown whether patient has children Employment Status: none Recreational Activities/Hobbies: entemology OBJECTIVE/OCCUPATIONAL PERFORMANCE Activities of Daily Living Current Status Previous Status ADLs Feeding Independent - Grooming Independent - Bathing-UE Independent - Bathing-LE Independent - Dressing-UE Independent - Dressing-LE Independent - Toileting Independent - AM-PAC Daily Activities: [facility] PATIENT NAME: SERGO ROSAS [facility] Shearer MEDICAL REC #: [id number] [place] [address] ADMIT DATE: 05/11/21 SERVICE DATE: 05/14/21 Occupational Therapy Assessment ATTENDING PHY: Keyonna Welch MD Putting On/Taking Off Lower Body Clothing: No help needed Bathing:: No help needed Toileting: No help needed Putting On/Taking Off Upper Body Clothing: No help needed Grooming: No help needed Eating a Meal: No help needed Raw Score = 24 , AM-PAC t-Scale Score = 57.54 and G-Code Modifie (more content not included)...[facility]06-11-2021 NoteHNO ID: [id number] Author: Cary Hudson RN Service: Care Management Author Type: Registered Nurse Type: Care Mgt Progress Note Filed: 03/05/2021 1:11 PM Note Text: CARE MANAGEMENT DISCHARGE NOTE SERVICE DATE: 03/05/2021 SERVICE TIME: 1:10 PM LOS: 4 days Admission Date: 03/01/2021 DISCHARGE ARRANGEMENT Discharge Arrangement: Home CAREGIVER ASSESSMENT: Caregiver is ready, willing and able to meet the patient's needs as recommended by the inter-professional team:: No Caregiver needed Patient's transition needs and plan for meeting these needs: Home with self care HANDOFF COMMUNICATION: Handoff to: Primary Care Physician Primary Care Physician Name/Phone: Walter Loya MD/[phone] TRANSPORTATION ARRANGEMENTS: Transportation Arrangements: Car (Family to transport) ADDITIONAL CONTACT RESOURCES: N/A Needs Prior to Discharge: None;Ready for Discharge Discharge to home today. No skilled needs. Son to transport. Patient plans on following-up with GI provider after discharge. SIGNATURE: Cary Hudson RN PATIENT NAME: Sergo Suárez Headings DATE: March 05, 2021 TIME: 1:10 PM PAGER/CONTACT #: [phone] NoteHNO ID: [id number] Author: Cary Hudson RN Service: Care Management Author Type: Registered Nurse Type: Care Mgt Progress Note Filed: 03/05/2021 12:39 PM Note Text: CARE MANAGEMENT PROGRESS NOTE SERVICE DATE: 03/05/2021 SERVICE TIME: 12:39 PM LOS: 4 days IMM Follow Up Copy Given: Yes Copy given to:: Patient Method: In Person SIGNATURE: Cary Hudson RN PATIENT NAME: Sergo Suárez Headings DATE: March 05, 2021 TIME: 12:39 PM PAGER/CONTACT #: [phone] NoteHNO ID: [id number] Author: James Pierce MD Service: Hospital Medicine Author Type: Physician Type: Progress Notes Filed: 03/05/2021 12:30 PM Note Text: DEPARTMENT OF HOSPITAL MEDICINE PROGRESS NOTE SERVICE DATE: 03/05/2021 SERVICE TIME: 12:26 PM Hospital Medicine/Primary Attending: James Pierce MD NIGHT AND WEEKEND COVERAGE: AROMAS COVERAGE: Nights: [phone], please page [facility] Night coverage pager [phone]. 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 - Appointment on Monday with GI with stool studies pending. - Discharged on potassium and low-dose magnesium oxide Reason for Admission: Uncontrolled diarrhea with fluid and electrolyte loss dehydration Consultants: Dr. Merrill for infectious disease Dr. Arnold for GI PROCEDURES: Colonoscopy with polypectomy 03/04/2021 Disposition: Home EK12/05/2027 sinus bradycardia basically normal EKG ECHO: 12/05/2019 The left ventricle is normal in size. Left ventricular systolic function is normal. EF = 63 ? 5% (2D biplane) Indeterminate left ventricular diastolic dysfunction. - The right ventricle is normal in size. Right ventricular systolic function is normal. - The left atrial cavity is mildly dilated. - The right atrial cavity is dilated. - There is mild (1+) mitral valve regurgitation. - There is aortic sclerosis without stenosis. There is mild (1-2+) aortic valve regurgitation. HOSPITAL COURSE: Sergo Rosas is a 86 year old male presented with past medical history of HTN, AAA, HLD and collagenous colitis for many years who presented to ED due to worsening of his diarrhea. He has diarrhea off / On since Sep while he was in [place]. He saw GI and PCP in [place] without much improvement. Over last few weeks he has noticed worsening of diarrhea with multiple loose BM. He was seen in ED on 02/24/21. Work up with CT ABD and Stool studies were negative. He went to Urgent care on 02/27 for concern of dehydration. He presented to ED due to weakness, fatigue and no improvement in symptoms. C/O abdominal aches but denies localized abdominal pain. No nausea. One episode of vomiting yesterday. He has lost about 20 pounds in last 6 months. He was diagnosed with Collagenous colitis in 2007 which improved with Entocort. He had similar episode of diarrhea last year while in [place] but that resolved with few weeks. Has tried budesonide and Questran in last month without much improvement. Last Colonoscopy in 2007. In ED work up showed creatinine 1.49 and Na 126. He is being admitted for further evaluation of diarrhea. Was admitted to the medical floor with IV fluids and attention electrolytes seen in consultation by GI and infectious disease. He is monitored off antibiotics. After colonoscopy the diarrhea was improved. Patient is discharged to return if he becomes dehydrated with potassium and magnesium oxide low-dose supplementation to be seen by GI in 4 days. Acute diarrhea POA: Yes Hyponatremia POA: Yes Hypokalemia POA: Yes Stage 3 chronic kidney disease (HCC) POA: Yes Severe protein-calorie malnutrition (HCC) POA: Yes Abdominal aortic aneurysm without rupture (HCC) POA: Yes Overview: Sees Dr. Singh Hypertension, essential POA: Yes Overview: Continue home amlodipine Benign prostatic hyperplasia with urinary hesitancy POA: Yes Overview: Developed urine retention after AAA repair. Most likely due to chang irritation. Mixed hyperlipidemia POA: Yes Overview: Begun on lipitor 10mg Principal Problem: Acute diarrhea Assessment AND Plan: We will studies GI and infectious disease consult Active Problems: Mixed hyperlipidemia Assessment AND Plan: Chronic continue medication Abdominal aortic aneurysm without rupture (HCC) Assessment AND Plan: No pain status post repair with endovascular stent Hypertension, essential Assessment AND Plan: Last 14 BP Last 14 Encounter BP Readings: Date: BP: 03/01/2021 113/51 02/27/2021 132/68 02/24/2021 159/69 02/10/2021 126/72 02/01/2021 144/58 02/10/2020 142/56 12/05/2019 131/67 12/05/2019 137/67 06/24/2019 164/71 03/27/2019 130/74 02/04/2019 150/72 08/24/2018 122/64 (more content not included)...[facility] [id number] Note HNO ID: [id number] Author: James Pierce MD Service: Hospital Medicine Author Type: Physician Type: Progress Notes Filed: 03/04/2021 11:28 AM Note Text: DEPARTMENT OF HOSPITAL MEDICINE PROGRESS NOTE SERVICE DATE: 03/04/2021 SERVICE TIME: 10:29 AM Hospital Medicine/Primary Attending: James Pierce MD NIGHT AND WEEKEND COVERAGE: AROMAS COVERAGE: Nights: [phone], please page [facility] Night coverage pager [phone]. 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 Merrill for infectious disease Dr. Arnold for GI PROCEDURES: Colonoscopy with polypectomy 03/04/2021 Disposition: Home EK12/05/2027 sinus bradycardia basically normal EKG ECHO: 12/05/2019 The left ventricle is normal in size. Left ventricular systolic function is normal. EF = 63 ? 5% (2D biplane) Indeterminate left ventricular diastolic dysfunction. - The right ventricle is normal in size. Right ventricular systolic function is normal. - The left atrial cavity is mildly dilated. - The right atrial cavity is dilated. - There is mild (1+) mitral valve regurgitation. - There is aortic sclerosis without stenosis. There is mild (1-2+) aortic valve regurgitation. HOSPITAL COURSE: Sergo Rosas is a 86 year old male presented with past medical history of HTN, AAA, HLD and collagenous colitis for many years who presented to ED due to worsening of his diarrhea. He has diarrhea off / On since Sep while he was in [place]. He saw GI and PCP in [place] without much improvement. Over last few weeks he has noticed worsening of diarrhea with multiple loose BM. He was seen in ED on 02/24/21. Work up with CT ABD and Stool studies were negative. He went to Urgent care on 02/27 for concern of dehydration. He presented to ED due to weakness, fatigue and no improvement in symptoms. C/O abdominal aches but denies localized abdominal pain. No nausea. One episode of vomiting yesterday. He has lost about 20 pounds in last 6 months. He was diagnosed with Collagenous colitis in 2007 which improved with Entocort. He had similar episode of diarrhea last year while in [place] but that resolved with few weeks. Has tried budesonide and Questran in last month without much improvement. Last Colonoscopy in 2007. In ED work up showed creatinine 1.49 and Na 126. He is being admitted for further evaluation of diarrhea. Was admitted to the medical floor with IV fluids and attention electrolytes seen in consultation by GI and infectious disease. He is monitored off antibiotics. Acute diarrhea POA: Yes Hyponatremia POA: Yes Hypokalemia POA: Yes Stage 3 chronic kidney disease (HCC) POA: Yes Severe protein-calorie malnutrition (HCC) POA: Yes Abdominal aortic aneurysm without rupture (HCC) POA: Yes Overview: Sees Dr. Singh Hypertension, essential POA: Yes Overview: Continue home amlodipine Benign prostatic hyperplasia with urinary hesitancy POA: Yes Overview: Developed urine retention after AAA repair. Most likely due to chang irritation. Mixed hyperlipidemia POA: Yes Overview: Begun on lipitor 10mg Principal Problem: Acute diarrhea Assessment AND Plan: We will studies GI and infectious disease consult Active Problems: Mixed hyperlipidemia Assessment AND Plan: Chronic continue medication Abdominal aortic aneurysm without rupture (HCC) Assessment AND Plan: No pain status post repair with endovascular stent Hypertension, essential Assessment AND Plan: Last 14 BP Last 14 Encounter BP Readings: Date: BP: 03/01/2021 113/51 02/27/2021 132/68 02/24/2021 159/69 02/10/2021 126/72 02/01/2021 144/58 02/10/2020 142/56 12/05/2019 131/67 12/05/2019 137/67 06/24/2019 164/71 03/27/2019 130/74 02/04/2019 150/72 08/24/2018 122/64 08/20/2018 161/67 02/21/2018 128/72 Stage 3 chronic kidney disease (HCC) Assessment AND Plan: Baseline 1.1-1.2 Benign prostatic hyperplasia with urinary hesitancy Assessment AND Plan: Check postvoid residual Hyponatremia Assessment AND Plan: IV hydration Hypokalemia Assessment AND Plan: Electrolyte replacement RESOLVED PROBLEMS R (more content not included)...[facility] [id number] NoteHNO ID: [id number] Author: Cary Hudson RN Service: Care Management Author Type: Registered Nurse Type: Care Mgt Initial Assessment Filed: 03/03/2021 1:58 PM Note Text: CARE MANAGEMENT: ASSESSMENT AND DISCHARGE PLAN SERVICE DATE: March 03, 2021 SERVICE TIME: 1:55 PM PRIMARY CARE PHYSICIAN: Walter Loya MD-Confirmed ADMISSION STATUS: Inpatient Needs Prior to Discharge: To Be Determined MEDICAL: [employer] MEDICARE 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 Last discharge within 30 days: No Advance Directive: Current Advance Directive: Living Will In Chart: Yes Up To Date and Valid: Yes Health LiteracyHow often do you need to have someone help you when you read instructions, pamphlets, or other written material from your doctor or pharmacy? : 1 - Never How confident are you filling out medical forms by yourself?: 1 - Extremely If Patient scores > 3 on either question, the following interventions were put into place:: Patient did not score > 3 on either question. Baseline Mental Status Prior to this Illness what was the patient's Baseline Mental Status?: Alert AND Oriented Prior to this illness, has anyone described the patient having any of the following behaviors?: Not Applicable Relationship of the informant to the patient:: Self Functional Status: Independent Does Patient Currently Receive Any Community Services or Home Care?: None Equipment Prior to Admission: None Has the Patient Been in a Snf Facility in the Past 30 days?: No SOCIAL: Living Arrangements: Home Lives With: Spouse Financial Resources: Retired Primary Contact: Extended Emergency Contact Information Primary Emergency Contact: Betsey Rosas Address: [address] [place] [id number] Mobile Relation: Spouse Secondary Emergency Contact: Kesha Ayoub Mobile Relation: Daughter Supportive Patient Contact:: Yes Caregiver AssessmentCaregiver is ready, willing and able to meet the patient's needs as recommended by the inter-professional team:: No Caregiver needed Does the patient have an acute stroke diagnosis, or has the patient had a stroke during this admission?: No Patient's transition needs and plan for meeting these needs: Anticipate return home with self care Patient's perception of need for this admission: Diarrhea, weakness Medication Adherance I am convinced of the importance of my prescription medication: 0 - Agree Completely I worry that my prescription medication will do more harm than good to me : 0 - Disagree Completely I feel financially burdened by my [id number] expenses for my prescription medication:: 0 - Disagree Completely Risk Score: 0 Patient is categorized as: Low risk < 2 Are you interested in bedside delivery of your medications? No, preferred community Pharmacy is [facility]. Is Patient Psychosocially Complex?: No ASSESSMENT AND PLAN: Medical Needs: Medical Needs: Two or more chronic diseases Psychosocial Needs: Psychosocial Needs: None FREEDOM OF CHOICE EXPLAINED: [place] of Choice Given: No Reason Not Given: No placements necessary POTENTIAL TRANSITION PLANS Home EMR reviewed and CM assessment complete. 86 year old patient admitted for diarrhea, dehydration and hyponatremia. RN CM met with the patient at bedside to discuss discharge planning needs. He reportedly lives with his in a two level home and was independent with ADL's and I-ADL's [employer]. No skilled needs anticipated at discharge. CM assigned will continue to follow. SIGNATURE: Cary Hudson RN PATIENT NAME: Sergo Suárez Headings DATE: March 03, 2021 TIME: 1:55 PM PAGER/CONTACT #: [phone] NoteHNO ID: [id number] Author: James Pierce MD Service: Hospital Medicine Author Type: Physician Type: Progress Notes Filed: 03/03/2021 12:31 PM Note Text: DEPARTMENT OF HOSPITAL MEDICINE PROGRESS NOTE SERVICE DATE: 03/03/2021 SERVICE TIME: 8:08 AM Hospital Medicine/Primary Attending: James Pierce MD NIGHT AND WEEKEND COVERAGE: AROMAS COVERAGE: Nights: [phone], please page [facility] Hospitalist Night coverage pager [phone]. 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 Merrill for infectious disease Dr. Arnold for GI PROCEDURES: NONE Disposition: Home EK12/05/2027 sinus bradycardia basically normal EKG ECHO: 12/05/2019 The left ventricle is normal in size. Left ventricular systolic function is normal. EF = 63 ? 5% (2D biplane) Indeterminate left ventricular diastolic dysfunction. - The right ventricle is normal in size. Right ventricular systolic function is normal. - The left atrial cavity is mildly dilated. - The right atrial cavity is dilated. - There is mild (1+) mitral valve regurgitation. - There is aortic sclerosis without stenosis. There is mild (1-2+) aortic valve regurgitation. HOSPITAL COURSE: Sergo Rosas is a 86 year old male presented with past medical history of HTN, AAA, HLD and collagenous colitis for many years who presented to ED due to worsening of his diarrhea. He has diarrhea off / On since Sep while he was in [place]. He saw GI and PCP in [place] without much improvement. Over last few weeks he has noticed worsening of diarrhea with multiple loose BM. He was seen in ED on 02/24/21. Work up with CT ABD and Stool studies were negative. He went to Urgent care on 02/27 for concern of dehydration. He presented to ED due to weakness, fatigue and no improvement in symptoms. C/O abdominal aches but denies localized abdominal pain. No nausea. One episode of vomiting yesterday. He has lost about 20 pounds in last 6 months. He was diagnosed with Collagenous colitis in 2007 which improved with Entocort. He had similar episode of diarrhea last year while in [place] but that resolved with few weeks. Has tried budesonide and Questran in last month without much improvement. Last Colonoscopy in 2007. In ED work up showed creatinine 1.49 and Na 126. He is being admitted for further evaluation of diarrhea. Was admitted to the medical floor with IV fluids and attention electrolytes seen in consultation by GI and infectious disease. He is monitored off antibiotics. Acute diarrhea POA: Yes Mixed hyperlipidemia POA: Yes Overview: Begun on lipitor 10mg Abdominal aortic aneurysm without rupture (HCC) POA: Yes Overview: Sees Dr. Singh Hypertension, essential POA: Yes Overview: Continue home amlodipine Stage 3 chronic kidney disease (HCC) POA: Yes Benign prostatic hyperplasia with urinary hesitancy POA: Yes Overview: Developed urine retention after AAA repair. Most likely due to chang irritation. Hyponatremia POA: Yes Hypokalemia POA: Yes Principal Problem: Acute diarrhea Assessment AND Plan: We will studies GI and infectious disease consult Active Problems: Mixed hyperlipidemia Assessment AND Plan: Chronic continue medication Abdominal aortic aneurysm without rupture (HCC) Assessment AND Plan: No pain status post repair with endovascular stent Hypertension, essential Assessment AND Plan: Last 14 BP Last 14 Encounter BP Readings: Date: BP: 03/01/2021 113/51 02/27/2021 132/68 02/24/2021 159/69 02/10/2021 126/72 02/01/2021 144/58 02/10/2020 142/56 12/05/2019 131/67 12/05/2019 137/67 06/24/2019 164/71 03/27/2019 130/74 02/04/2019 150/72 08/24/2018 122/64 08/20/2018 161/67 02/21/2018 128/72 Stage 3 chronic kidney disease (HCC) Assessment AND Plan: Baseline 1.1-1.2 Benign prostatic hyperplasia with urinary hesitancy Assessment AND Plan: Check postvoid residual Hyponatremia Assessment AND Plan: IV hydration Hypokalemia Assessment AND Plan: Electrolyte replacement RESOLVED PROBLEMS Recent Labs 03/03/21 0633 03/02/21 0504 03/01/21 1835 02/24/21 2100 02/24/21 2100 02/10/21 1054 02/10/21 1054 WBC 5.24 6.50 6.31 < > 7.87 < > 9.20 RBC 3.73* 3.88* 4.27 < > 4.31 < > 4.20 HB 11.2* 11.7* 12.8* < > 13.0 < > 12.5* HCT 33. (more content not included)...[facility] [id number] NoteHNO ID: [id number] Author: James Pierce MD Service: Hospital Medicine Author Type: Physician Type: Progress Notes Filed: 03/02/2021 10:59 AM Note Text: DEPARTMENT OF HOSPITAL MEDICINE PROGRESS NOTE SERVICE DATE: 03/02/2021 SERVICE TIME: 8:35 AM Hospital Medicine/Primary Attending: James Pierce MD NIGHT AND WEEKEND COVERAGE: AROMAS COVERAGE: Nights: [phone], please page [facility] Hospitalist Night coverage pager [phone]. 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 Merrill for infectious disease Dr. Arnold for GI PROCEDURES: NONE Disposition: Home EK12/05/2027 sinus bradycardia basically normal EKG ECHO: 12/05/2019 The left ventricle is normal in size. Left ventricular systolic function is normal. EF = 63 ? 5% (2D biplane) Indeterminate left ventricular diastolic dysfunction. - The right ventricle is normal in size. Right ventricular systolic function is normal. - The left atrial cavity is mildly dilated. - The right atrial cavity is dilated. - There is mild (1+) mitral valve regurgitation. - There is aortic sclerosis without stenosis. There is mild (1-2+) aortic valve regurgitation. HOSPITAL COURSE: Sergo Rosas is a 86 year old male presented with past medical history of HTN, AAA, HLD and collagenous colitis for many years who presented to ED due to worsening of his diarrhea. He has diarrhea off / On since Sep while he was in [place]. He saw GI and PCP in [place] without much improvement. Over last few weeks he has noticed worsening of diarrhea with multiple loose BM. He was seen in ED on 02/24/21. Work up with CT ABD and Stool studies were negative. He went to Urgent care on 02/27 for concern of dehydration. He presented to ED due to weakness, fatigue and no improvement in symptoms. C/O abdominal aches but denies localized abdominal pain. No nausea. One episode of vomiting yesterday. He has lost about 20 pounds in last 6 months. He was diagnosed with Collagenous colitis in 2007 which improved with Entocort. He had similar episode of diarrhea last year while in [place] but that resolved with few weeks. Has tried budesonide and Questran in last month without much improvement. Last Colonoscopy in 2007. In ED work up showed creatinine 1.49 and Na 126. He is being admitted for further evaluation of diarrhea. Acute diarrhea POA: Yes Mixed hyperlipidemia POA: Yes Overview: Begun on lipitor 10mg Abdominal aortic aneurysm without rupture (HCC) POA: Yes Overview: Sees Dr. Singh Hypertension, essential POA: Yes Overview: Continue home amlodipine Stage 3 chronic kidney disease (HCC) POA: Yes Benign prostatic hyperplasia with urinary hesitancy POA: Yes Overview: Developed urine retention after AAA repair. Most likely due to chang irritation. Hyponatremia POA: Yes Hypokalemia POA: Yes Principal Problem: Acute diarrhea Assessment AND Plan: We will studies GI and infectious disease consult Active Problems: Mixed hyperlipidemia Assessment AND Plan: Chronic continue medication Abdominal aortic aneurysm without rupture (HCC) Assessment AND Plan: No pain status post repair with endovascular stent Hypertension, essential Assessment AND Plan: Last 14 BP Last 14 Encounter BP Readings: Date: BP: 03/01/2021 113/51 02/27/2021 132/68 02/24/2021 159/69 02/10/2021 126/72 02/01/2021 144/58 02/10/2020 142/56 12/05/2019 131/67 12/05/2019 137/67 06/24/2019 164/71 03/27/2019 130/74 02/04/2019 150/72 08/24/2018 122/64 08/20/2018 161/67 02/21/2018 128/72 Stage 3 chronic kidney disease (HCC) Assessment AND Plan: Baseline 1.1-1.2 Benign prostatic hyperplasia with urinary hesitancy Assessment AND Plan: Check postvoid residual Hyponatremia Assessment AND Plan: IV hydration Hypokalemia Assessment AND Plan: Electrolyte replacement RESOLVED PROBLEMS Recent Labs 03/02/21 0504 03/01/21 1835 02/24/21 2100 02/10/21 1054 02/10/21 1054 WBC 6.50 6.31 7.87 < > 9.20 RBC 3.88* 4.27 4.31 < > 4.20 HB 11.7* 12.8* 13.0 < > 12.5* HCT 34.5* 37.9* 39.1 < > 39.6 PLT 183 192 211 < > 250 MCV 88.9 88.8 90.7 < > 94.3 MCH 30.2 30.0 30.2 < > 29.8 MPV 11.0 10.2 11.3 < > 11.3 ABSNEUT -- 4.14 4.91 -- 5.64 NEUTP -- 66.0 62.6 -- 61.5 LYMPHP -- 17.7 22.7 -- 25.7 MONOP -- 1 (more content not included)...[id number] History of Past illness Narrative* Problem Noted Date Resolved Date Right shoulder pain 09/08/2013 09/18/2014 documented as of this encounter (statuses as of 01/29/2022) [facility] History of Past illness Narrative* Problem Noted Date Resolved Date Right shoulder pain 09/08/2013 09/18/2014 documented as of this encounter (statuses as of 02/03/2022) [address]15-2013 History of Past illness Narrative* Problem Noted Date Resolved Date Right shoulder pain 09/08/2013 09/18/2014 documented as of this encounter (statuses as of 02/14/2022) [address]2013 History of Past illness Narrative* Problem Noted Date Resolved Date Right shoulder pain 09/08/2013 09/18/2014 documented as of this encounter (statuses as of 02/15/2022) [address]2013 History of Past illness Narrative* Problem Noted Date Resolved Date Right shoulder pain 09/08/2013 09/18/2014 documented as of this encounter (statuses as of 02/23/2022) [address]2013 History of Past illness Narrative* Problem Noted Date Resolved Date Right shoulder pain 09/08/2013 09/18/2014 documented as of this encounter (statuses as of 03/15/2022) [address]2013 History of Past illness Narrative* Problem Noted Date Resolved Date Right shoulder pain 09/08/2013 09/18/2014 documented as of this encounter (statuses as of 04/04/2022) [address]2013 History of Past illness Narrative* Problem Noted Date Resolved Date Right shoulder pain 09/08/2013 09/18/2014 documented as of this encounter (statuses as of 06/14/2022) [address]2013 History of Past illness Narrative* Problem Noted Date Resolved Date Right shoulder pain 09/08/2013 09/18/2014 documented as of this encounter (statuses as of 07/26/2022) [address]2013 History of Past illness Narrative* Problem Noted Date Resolved Date Right shoulder pain 09/08/2013 09/18/2014 documented as of this encounter (statuses as of 08/04/2022) [address]2013 History of Past illness Narrative* Problem Noted Date Resolved Date Right shoulder pain 09/08/2013 09/18/2014 documented as of this encounter (statuses as of 08/08/2022) [address]2013 History of Past illness Narrative* Problem Noted Date Resolved Date Right shoulder pain 09/08/2013 09/18/2014 documented as of this encounter (statuses as of 08/08/2022) [address]2013 History of Past illness Narrative* Problem Noted Date Resolved Date Right shoulder pain 09/08/2013 09/18/2014 documented as of this encounter (statuses as of 08/08/2022) [address]2013 History of Past illness Narrative* Problem Noted Date Resolved Date Right shoulder pain 09/08/2013 09/18/2014 documented as of this encounter (statuses as of 08/09/2022) [address]2013 History of Past illness Narrative* Problem Noted Date Resolved Date Right shoulder pain 09/08/2013 09/18/2014 documented as of this encounter (statuses as of 08/09/2022) [address]2013 History of Past illness Narrative* Problem Noted Date Resolved Date Right shoulder pain 09/08/2013 09/18/2014 documented as of this encounter (statuses as of 08/12/2022) [facility] History of Past illness Narrative* Problem Noted Date Resolved Date Right shoulder pain 09/08/2013 09/18/2014 documented as of this encounter (statuses as of 09/01/2022) [address]2013 History of Past illness Narrative* Problem Noted Date Resolved Date Right shoulder pain 09/08/2013 09/18/2014 documented as of this encounter (statuses as of 10/13/2022) [address]2013 History of Past illness Narrative* Problem Noted Date Resolved Date Right shoulder pain 09/08/2013 09/18/2014 documented as of this encounter (statuses as of 10/17/2022) [address]2013 History of Past illness Narrative* Problem Noted Date Resolved Date Right shoulder pain 09/08/2013 09/18/2014 documented as of this encounter (statuses as of 12/02/2022) [address]2013 History of Past illness Narrative* Problem Noted Date Resolved Date Right shoulder pain 09/08/2013 09/18/2014 documented as of this encounter (statuses as of 12/07/2022) [address]2013 History of Past illness Narrative* Problem Noted Date Resolved Date Right shoulder pain 09/08/2013 09/18/2014 documented as of this encounter (statuses as of 01/31/2023) [address]2013 History of Past illness Narrative* Problem Noted Date Resolved Date Right shoulder pain 09/08/2013 09/18/2014 documented as of this encounter (statuses as of 02/01/2023) [address]2013 History of Past illness Narrative* Problem Noted Date Resolved Date Right shoulder pain 09/08/2013 09/18/2014 documented as of this encounter (statuses as of 02/01/2023) [address]2013 History of Past illness Narrative* Problem Noted Date Resolved Date Right shoulder pain 09/08/2013 09/18/2014 documented as of this encounter (statuses as of 02/21/2023) [facility] Medicare annual wellness visit, subsequent- Primary Routine general medical examination at a health care facility Elevated hemoglobin A1c Other abnormal blood chemistry Hypertension, essential Unspecified essential hypertension Lower urinary tract symptoms (LUTS) Other symptoms involving urinary system Peripheral vascular disease (HCC) Peripheral vascular disease, unspecified Abdominal aortic aneurysm without rupture (HCC) Abdominal aneurysm without mention of rupture Hypokalemia Hypopotassemia Hyponatremia Hyposmolality and/or hyponatremia Stage 3a chronic kidney disease (HCC) Celiac disease Vitamin D deficiency Unspecified vitamin D deficiency [facility] Diagnosis Bilateral carotid artery stenosis- Primary Occlusion and stenosis of carotid artery without mention of cerebral infarction Synovial cyst of right popliteal space Synovial cyst of popliteal space Abdominal aortic aneurysm without rupture (HCC) Abdominal aneurysm without mention of rupture [facility] Diagnosis AAA (abdominal aortic aneurysm) without rupture (HCC) Abdominal aneurysm without mention of rupture Peripheral vascular disease (HCC) Peripheral vascular disease, unspecified [facility] Diagnosis Hypertension, essential- Primary Unspecified essential hypertension Mixed hyperlipidemia Abdominal aortic aneurysm without rupture Abdominal aneurysm without mention of rupture Stage 3a chronic kidney disease (HCC) AK (actinic keratosis) Actinic keratosis [facility] Diagnosis Actinic keratosis- Primary Seborrheic keratoses, inflamed Inflamed seborrheic keratosis Pruritus Unspecified pruritic disorder [facility] Diagnosis Hypertension, essential Unspecified essential hypertension [facility] Diagnosis Irritable bowel syndrome with diarrhea- Primary Irritable bowel syndrome Gassiness Flatulence, eructation, and gas pain Aortic valve insufficiency, etiology of cardiac valve disease unspecified Hypertension, essential Unspecified essential hypertension BPH with obstruction/lower urinary tract symptoms Hypertrophy of prostate with urinary obstruction and other lower urinary tract symptoms (LUTS) Essential fatty acid (EFA) deficiency Other nutritional deficiency Impaired nutrient utilization Gastrointestinal food sensitivity Allergic gastroenteritis and colitis [facility] Diagnosis Encounter for person encountering health services- Primary [facility] Diagnosis Irritable bowel syndrome with diarrhea- Primary Irritable bowel syndrome Dietary counseling and surveillance Dietary surveillance and counseling [facility] Diagnosis Small intestinal bacterial overgrowth (SIBO)- Primary [facility] Diagnosis Abdominal aortic aneurysm (AAA) without rupture, unspecified part (HCC)- Primary [facility] Diagnosis Bloating- Primary Flatulence, eructation, and gas pain Lower urinary tract symptoms (LUTS) Other symptoms involving urinary system Diarrhea, unspecified type Stage 3a chronic kidney disease (HCC) [facility] Diagnosis Intestinal dysbiosis- Primary Impaired nutrient utilization Hypertension, essential Unspecified essential hypertension [facility] Diagnosis 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 Left-sided weakness Muscle weakness (generalized) [facility] Diagnosis Neck pain, chronic- Primary Cervicalgia Celiac disease Acute diarrhea Diarrhea [facility] Diagnosis Candidal enteritis- Primary Candidiasis of the intestine Intestinal dysbiosis Hx of completed stroke Transient ischemic attack (TIA), and cerebral infarction without residual deficits [facility] Diagnosis Neck pain, chronic Cervicalgia Celiac disease Acute diarrhea Diarrhea [facility]* Diagnosis Nonrheumatic aortic valve insufficiency, moderate to severe, LVEF 55 to 60%, LVEDD 50 mm.- Primary Aortic valve disorders Hypertension, essential Unspecified essential hypertension Mixed hyperlipidemia Peripheral vascular disease (HCC) Peripheral vascular disease, unspecified Cerebrovascular accident (CVA), unspecified mechanism (HCC) [facility] Diagnosis 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 Left-sided weakness Muscle weakness (generalized) Vision loss of left eye Unqualified visual loss, one eye [facility] Diagnosis Pruritus- Primary Unspecified pruritic disorder Seborrheic keratosis Other seborrheic keratosis Encounter for screening for malignant neoplasm of skin Screening for malignant neoplasm of the skin Lentigines Other dyschromia [facility]* Diagnosis Nonrheumatic aortic valve insufficiency, moderate to severe, LVEF 55 to 60%, LVEDD 50 mm.- Primary Aortic valve disorders Hypertension, essential Unspecified essential hypertension Mixed hyperlipidemia Peripheral vascular disease (HCC) Peripheral vascular disease, unspecified Cerebrovascular accident (CVA), unspecified mechanism (HCC) [facility]* Diagnosis Hypertension, essential- Primary Unspecified essential hypertension Low testosterone Other testicular hypofunction [facility] Diagnosis Irritable bowel syndrome with diarrhea- Primary Irritable bowel syndrome Candidal enteritis Candidiasis of the intestine [facility]* Diagnosis 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 Left-sided weakness Muscle weakness (generalized) Vision loss of left eye Unqualified visual loss, one eye [facility]* Diagnosis Acute UTI- Primary Urinary tract infection, site not specified [facility] Diagnosis Dysuria- Primary [facility] Diagnosis Lower urinary tract symptoms (LUTS) Other symptoms involving urinary system [facility] Diagnosis Testosterone deficiency- Primary Other testicular hypofunction [facility] Diagnosis Testosterone deficiency- Primary Other testicular hypofunction Mixed hyperlipidemia Cerebrovascular accident (CVA), unspecified mechanism (HCC) 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 [facility] Diagnosis Delirium, acute- Primary Other alteration of consciousness Hyponatremia Hyposmolality and/or hyponatremia Prediabetes Other abnormal glucose Severe protein-calorie malnutrition (HCC) Other severe protein-calorie malnutrition Acute ischemic stroke (HCC) Unspecified cerebral artery occlusion with cerebral infarction Testosterone deficiency Other testicular hypofunction documented in this encounter [facility]* Diagnosis SIADH (syndrome of inappropriate ADH production) ([facility])- Primary Other disorders of neurohypophysis Weakness of both lower extremities Anemia, unspecified type Hypomagnesemia Disorders of magnesium metabolism documented in this encounter [facility] for referral (narrative)* Diagnostic Procedure Only (Routine) - Closed Specialty Diagnoses / Procedures Referred By Judy clark Referred To Contact XR IMAGING Diagnoses AAA (abdominal aortic aneurysm) without rupture (HCC) Peripheral vascular disease (HCC) Procedures XR ABDOMEN 3V KUB W/OBLIQUES RADIOLOGIC EXAM ABDOMEN 3+ VIEWS Osmin Singh MD [address] [place] [address] Xr Imaging Referral ID Status Reason Start Date Expiration Date V isits Requested Visits Authorized [id number] Closed Auto-Generate d Referral 11/17/2021 12/17/2022 1 1 [facility] for referral (narrative)* Outpatient Procedure (Routine) - Authorized Specialty Diagnoses / Procedures Referred By Judy clark Referred To [facility] Diagnoses Nonrheumatic aortic valve insufficiency Procedures ECHO ECHO TTHRC R-T 2D W/WOM-MODE COMPL SPEC&COLR D Walter Nuñez [place] [address] [place] [address] [facility] [address] [place] [address] Referral ID Status Reason Start Date Expiration Date Visits Requested Visits Authorized [id number] Authorized Auto-Generat ed Referral 07/26/2024 01/23/2025 1 1 [facility] Summary Purpose Family History No Family History Records FoundNo Family History Records FoundNo Family History Records FoundNo Family History Records FoundNo Family History Records Found Advance Directives Documents on File Type Date Recorded 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 Advance Directive(s) 04/13/2016 4:17 PM Date Activated Date Inactivated Comments 04/01/2023 9:55 PM 04/06/2023 9:55 PM Question Answer Comments Full Code Order Discussed With: Patient Documents on File Type Date Recorded 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 Advance Directive(s) 03/01/2021 4:48 PM Advance Directive(s) 02/24/2021 10:03 PM Advance Directive(s) 12/12/2019 6:57 AM Advance Directive(s) 12/09/2019 11:36 AM Advance Directive(s) 02/04/2019 2:06 PM Advance Directive(s) 04/13/2016 4:17 PM Documents on File Type Date Recorded 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 Advance Directive(s) 03/01/2021 4:48 PM Advance Directive(s) 02/24/2021 10:03 PM Advance Directive(s) 12/12/2019 6:57 AM Advance Directive(s) 12/09/2019 11:36 AM Advance Directive(s) 02/04/2019 2:06 PM Advance Directive(s) 04/13/2016 4:17 PM Documents on File Type Date Recorded 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 Advance Directive(s) 04/13/2016 4:17 PM Latest Code Status on File Code Status Date Activated Date Inactivated Comments Full Code 04/01/2023 9:55 PM 04/06/2023 9:55 PM Question Answer Comments Full Code Order Discussed With: Patient Date Activated Date Inactivated Comments 04/01/2023 9:55 PM 04/06/2023 9:55 PM Question Answer Comments Full Code Order Discussed With: Patient Reason for Referral Specialty Diagnoses / Procedures Referred By Judy clark Referred To Contact Dermatology Diagnoses AK (actinic keratosis) Procedures CONSULT TO DERMATOLOGY Kezia Dubose MD [address] [place] [address] Referral ID Status Reason Start Date Expiration Date Visits Requested Visits Authorized [id number] Ref Not Required PCP Requested Referral 06/14/2022 06/14/2023 1 1 Specialty Diagnoses / Procedures Referred By Contac t Referred To Contact Cardiology Diagnoses Aortic valve insufficiency, etiology of cardiac valve disease unspecified Procedures CONSULT TO CARDIOLOGY Kathy Huggins MD [address] [address] Walter Nuñez MD [address] [place] [address] Referral ID Status Reason Start Date Expiration Date Visits Requested Visits Authorized [id number] Ref Not Required PCP Requested Referral 08/08/2023 1 1 Specialty Diagnoses / Procedures Referred By Contac t Referred To Contact CT IMAGING Diagnoses Abdominal aortic aneurysm (AAA) without rupture, unspecified part (HCC) Procedures CTA ABD/PEL WO/W IVCON CT ANGIO ABD&PLVIS CNTRST MTRL W/WO CNTRST IMGES Osmin Singh MD [address] [place] [address] Ct Imaging Referral ID Status Reason Start Date Expiration Date Visits Requested Visits Authorized [id number] Authorized Auto-Generat ed Referral 12/07/2022 01/06/2024 1 1 Specialty Diagnoses / Procedures Referred By Contac t Referred To [facility] Diagnoses Abdominal aortic aneurysm (AAA) without rupture, unspecified part (HCC) Procedures PVR ANK/COFFEY/TOE DICK VAS LAB NON-INVAS PHYSIOLOGIC STD EXTREMITY ART 2 LEVEL Osmin Singh MD [address] [place] [address] [facility] [place] [address] [place] [address] Referral ID Status Reason Start Date Expiration Date Visits Requested Visits Authorized [id number] Authorized Auto-Generat ed Referral 12/07/2022 12/07/2023 1 1 Specialty Diagnoses / Procedures Referred By Contac t Referred To Contact Diagnoses Decreased hearing of both ears Procedures HEARING TEST/AUDIOGRAM COMPRE AUDIOMETRY THRESHOLD EVAL SP RECOGNIJ Kezia Dubose MD [address] [place] [address] [facility] [address] [place] [address] Referral ID Status Reason Start Date Expiration Date Visits Requested Visits Authorized [id number] New Request Auto-Generat ed Referral 04/18/2024 07/17/2024 1 1 Specialty Diagnoses / Procedures Referred By Contac t Referred To Contact Nephrology Diagnoses Hyponatremia Delirium, acute Procedures CONSULT TO NEPHROLOGY OFFICE/OUTPATIENT NEW HIGH MDM 60 MINUTES Kezia Dubose MD [address] [place] [address] Referral ID Status Reason Start Date Expiration Date Visits Requested Visits Authorized [id number] Authorized PCP Requested Referral 04/24/2024 04/24/2025 1 1 Specialty Diagnoses / Procedures Referred By Contac t Referred To Contact [facility] Diagnoses Weakness of both lower extremities Procedures CONSULT TO PHYSICAL THERAPY PHYSICAL THERAPY EVALUATION HIGH COMPLEX 45 MINS Kezia Dubose MD [address] [place] [address] [facility] [address] [place] [address] Referral ID Status Reason Start Date Expiration Date Visits Requested Visits Authorized [id number] Pending Review Auto-Generat ed Referral 05/20/2024 05/20/2025 1 1 Additional Source Comments (unrecognized sect ion and content) No Status Records FoundNo Status Records FoundNo Status Records FoundNo Status Records FoundNo Status Records Found INFORMATION SOURCE (unrecogn ized section and content) DATE CREATED AUTHOR 03/15/2021 [facility] DATE CREATED AUTHOR AUTHOR'S ORGANIZ ATION 11/15/2021 [facility] [place] DATE CREATED AUTHOR AUTHOR'S ORGANIZ ATION 04/08/2023 [facility] DATE CREATED AUTHOR AUTHOR'S ORGANIZ ATION 04/30/2024 [facility] DATE CREATED AUTHOR AUTHOR'S JOSE ATION 07/07/[address] [facility] Source Comments (unrecognize d section and content) In the event this informatio n is protected by the Federal Confidentiality of Alcohol and Drug Abuse Patient Records regulations: The Federal rules restrict any use of the information to criminally investigate or prosecute any alcohol or drug abuse patient.[place] [facility]In the event this information is protected by the Federal Confidentiality of Alcohol and Drug Abuse Patient Records regulations: The Federal rules restrict any use of the information to criminally investigate or prosecute any alcohol or drug abuse patient.[facility]In the event this information is protected by the Federal Confidentiality of Alcohol and Drug Abuse Patient Records regulations: The Federal rules restrict any use of the information to criminally investigate or prosecute any alcohol or drug abuse patient.[facility]In the event this information is protected by the Federal Confidentiality of Alcohol and Drug Abuse Patient Records regulations: The Federal rules restrict any use of the information to criminally investigate or prosecute any alcohol or drug abuse patient.[facility]In the event this information is protected by the Federal Confidentiality of Alcohol and Drug Abuse Patient Records regulations: The Federal rules restrict any use of the information to criminally investigate or prosecute any alcohol or drug abuse patient.[facility]In the event this information is protected by the Federal Confidentiality of Alcohol and Drug Abuse Patient Records regulations: The Federal rules restrict any use of the information to criminally investigate or prosecute any alcohol or drug abuse patient.[facility]In the event this information is protected by the Federal Confidentiality of Alcohol and Drug Abuse Patient Records regulations: The Federal rules restrict any use of the information to criminally investigate or prosecute any alcohol or drug abuse patient.[facility]In the event this information is protected by the Federal Confidentiality of Alcohol and Drug Abuse Patient Records regulations: The Federal rules restrict any use of the information to criminally investigate or prosecute any alcohol or drug abuse patient.[facility]In the event this information is protected by the Federal Confidentiality of Alcohol and Drug Abuse Patient Records regulations: The Federal rules restrict any use of the information to criminally investigate or prosecute any alcohol or drug abuse patient.[facility]In the event this information is protected by the Federal Confidentiality of Alcohol and Drug Abuse Patient Records regulations: The Federal rules restrict any use of the information to criminally investigate or prosecute any alcohol or drug abuse patient.[facility]In the event this information is protected by the Federal Confidentiality of Alcohol and Drug Abuse Patient Records regulations: The Federal rules restrict any use of the information to criminally investigate or prosecute any alcohol or drug abuse patient.[facility]In the event this information is protected by the Federal Confidentiality of Alcohol and Drug Abuse Patient Records regulations: The Federal rules restrict any use of the information to criminally investigate or prosecute any alcohol or drug abuse patient.[facility]In the event this information is protected by the Federal Confidentiality of Alcohol and Drug Abuse Patient Records regulations: The Federal rules restrict any use of the information to criminally investigate or prosecute any alcohol or drug abuse patient.[facility]In the event this information is protected by the Federal Confidentiality of Alcohol and Drug Abuse Patient Records regulations: The Federal rules restrict any use of the information to criminally investigate or prosecute any alcohol or drug abuse patient.[facility]In the event this information is protected by the Federal Confidentiality of Alcohol and Drug Abuse Patient Records regulations: The Federal rules restrict any use of the information to criminally investigate or prosecute any alcohol or drug abuse patient.[facility]In the event this information is protected by the Federal Confidentiality of Alcohol and Drug Abuse Patient Records regulations: The Federal rules restrict any use of the information to criminally investigate or prosecute any alcohol or drug abuse patient.[facility]In the event this information is protected by the Federal Confidentiality of Alcohol and Drug Abuse Patient Records regulations: The Federal rules restrict any use of the information to criminally investigate or prosecute any alcohol or drug abuse patient.[facility]In the event this information is protected by the Federal Confidentiality of Alcohol and Drug Abuse Patient Records regulations: The Federal rules restrict any use of the information to criminally investigate or prosecute any alcohol or drug abuse patient.[facility]In the event this information is protected by the Federal Confidentiality of Alcohol and Drug Abuse Patient Records regulations: The Federal rules restrict any use of the information to criminally investigate or prosecute any alcohol or drug abuse patient.[facility]In the event this information is protected by the Federal Confidentiality of Alcohol and Drug Abuse Patient Records regulations: The Federal rules restrict any use of the information to criminally investigate or prosecute any alcohol or drug abuse patient.[facility]In the event this information is protected by the Federal Confidentiality of Alcohol and Drug Abuse Patient Records regulations: The Federal rules restrict any use of the information to criminally investigate or prosecute any alcohol or drug abuse patient.[facility]In the event this information is protected by the Federal Confidentiality of Alcohol and Drug Abuse Patient Records regulations: The Federal rules restrict any use of the information to criminally investigate or prosecute any alcohol or drug abuse patient.[facility]In the event this information is protected by the Federal Confidentiality of Alcohol and Drug Abuse Patient Records regulations: The Federal rules restrict any use of the information to criminally investigate or prosecute any alcohol or drug abuse patient.[facility]In the event this information is protected by the Federal Confidentiality of Alcohol and Drug Abuse Patient Records regulations: The Federal rules restrict any use of the information to criminally investigate or prosecute any alcohol or drug abuse patient.[facility]In the event this information is protected by the Federal Confidentiality of Alcohol and Drug Abuse Patient Records regulations: The Federal rules restrict any use of the information to criminally investigate or prosecute any alcohol or drug abuse patient.[facility]In the event this information is protected by the Federal Confidentiality of Alcohol and Drug Abuse Patient Records regulations: The Federal rules restrict any use of the information to criminally investigate or prosecute any alcohol or drug abuse patient.[facility]In the event this information is protected by the Federal Confidentiality of Alcohol and Drug Abuse Patient Records regulations: The Federal rules restrict any use of the information to criminally investigate or prosecute any alcohol or drug abuse patient.[facility]In the event this information is protected by the Federal Confidentiality of Alcohol and Drug Abuse Patient Records regulations: The Federal rules restrict any use of the information to criminally investigate or prosecute any alcohol or drug abuse patient.[facility]In the event this information is protected by the Federal Confidentiality of Alcohol and Drug Abuse Patient Records regulations: The Federal rules restrict any use of the information to criminally investigate or prosecute any alcohol or drug abuse patient.[facility]In the event this information is protected by the Federal Confidentiality of Alcohol and Drug Abuse Patient Records regulations: The Federal rules restrict any use of the information to criminally investigate or prosecute any alcohol or drug abuse patient.[facility]In the event this information is protected by the Federal Confidentiality of Alcohol and Drug Abuse Patient Records regulations: The Federal rules restrict any use of the information to criminally investigate or prosecute any alcohol or drug abuse patient.[facility]In the event this information is protected by the Federal Confidentiality of Alcohol and Drug Abuse Patient Records regulations: The Federal rules restrict any use of the information to criminally investigate or prosecute any alcohol or drug abuse patient.[facility]In the event this information is protected by the Federal Confidentiality of Alcohol and Drug Abuse Patient Records regulations: The Federal rules restrict any use of the information to criminally investigate or prosecute any alcohol or drug abuse patient.[facility]In the event this information is protected by the Federal Confidentiality of Alcohol and Drug Abuse Patient Records regulations: The Federal rules restrict any use of the information to criminally investigate or prosecute any alcohol or drug abuse patient.[facility]In the event this information is protected by the Federal Confidentiality of Alcohol and Drug Abuse Patient Records regulations: The Federal rules restrict any use of the information to criminally investigate or prosecute any alcohol or drug abuse patient.[facility]In the event this information is protected by the Federal Confidentiality of Alcohol and Drug Abuse Patient Records regulations: The Federal rules restrict any use of the information to criminally investigate or prosecute any alcohol or drug abuse patient.[facility]In the event this information is protected by the Federal Confidentiality of Alcohol and Drug Abuse Patient Records regulations: The Federal rules restrict any use of the information to criminally investigate or prosecute any alcohol or drug abuse patient.[facility]In the event this information is protected by the Federal Confidentiality of Alcohol and Drug Abuse Patient Records regulations: The Federal rules restrict any use of the information to criminally investigate or prosecute any alcohol or drug abuse patient.[facility]In the event this information is protected by the Federal Confidentiality of Alcohol and Drug Abuse Patient Records regulations: The Federal rules restrict any use of the information to criminally investigate or prosecute any alcohol or drug abuse patient.[facility]In the event this information is protected by the Federal Confidentiality of Alcohol and Drug Abuse Patient Records regulations: The Federal rules restrict any use of the information to criminally investigate or prosecute any alcohol or drug abuse patient.[facility]In the event this information is protected by the Federal Confidentiality of Alcohol and Drug Abuse Patient Records regulations: The Federal rules restrict any use of the information to criminally investigate or prosecute any alcohol or drug abuse patient.[facility]In the event this information is protected by the Federal Confidentiality of Alcohol and Drug Abuse Patient Records regulations: The Federal rules restrict any use of the information to criminally investigate or prosecute any alcohol or drug abuse patient.[facility]In the event this information is protected by the Federal Confidentiality of Alcohol and Drug Abuse Patient Records regulations: The Federal rules restrict any use of the information to criminally investigate or prosecute any alcohol or drug abuse patient.[facility]In the event this information is protected by the Federal Confidentiality of Alcohol and Drug Abuse Patient Records regulations: The Federal rules restrict any use of the information to criminally investigate or prosecute any alcohol or drug abuse patient.[facility]In the event this information is protected by the Federal Confidentiality of Alcohol and Drug Abuse Patient Records regulations: The Federal rules restrict any use of the information to criminally investigate or prosecute any alcohol or drug abuse patient.[facility]In the event this information is protected by the Federal Confidentiality of Alcohol and Drug Abuse Patient Records regulations: The Federal rules restrict any use of the information to criminally investigate or prosecute any alcohol or drug abuse patient.[facility]In the event this information is protected by the Federal Confidentiality of Alcohol and Drug Abuse Patient Records regulations: The Federal rules restrict any use of the information to criminally investigate or prosecute any alcohol or drug abuse patient.[facility]In the event this information is protected by the Federal Confidentiality of Alcohol and Drug Abuse Patient Records regulations: The Federal rules restrict any use of the information to criminally investigate or prosecute any alcohol or drug abuse patient.[facility]In the event this information is protected by the Federal Confidentiality of Alcohol and Drug Abuse Patient Records regulations: The Federal rules restrict any use of the information to criminally investigate or prosecute any alcohol or drug abuse patient.[facility]In the event this information is protected by the Federal Confidentiality of Alcohol and Drug Abuse Patient Records regulations: The Federal rules restrict any use of the information to criminally investigate or prosecute any alcohol or drug abuse patient.[facility]In the event this information is protected by the Federal Confidentiality of Alcohol and Drug Abuse Patient Records regulations: The Federal rules restrict any use of the information to criminally investigate or prosecute any alcohol or drug abuse patient.[facility]In the event this information is protected by the Federal Confidentiality of Alcohol and Drug Abuse Patient Records regulations: The Federal rules restrict any use of the information to criminally investigate or prosecute any alcohol or drug abuse patient.[facility]In the event this information is protected by the Federal Confidentiality of Alcohol and Drug Abuse Patient Records regulations: The Federal rules restrict any use of the information to criminally investigate or prosecute any alcohol or drug abuse patient.[facility]In the event this information is protected by the Federal Confidentiality of Alcohol and Drug Abuse Patient Records regulations: The Federal rules restrict any use of the information to criminally investigate or prosecute any alcohol or drug abuse patient.[facility]In the event this information is protected by the Federal Confidentiality of Alcohol and Drug Abuse Patient Records regulations: The Federal rules restrict any use of the information to criminally investigate or prosecute any alcohol or drug abuse patient.[facility]In the event this information is protected by the Federal Confidentiality of Alcohol and Drug Abuse Patient Records regulations: The Federal rules restrict any use of the information to criminally investigate or prosecute any alcohol or drug abuse patient.[facility]In the event this information is protected by the Federal Confidentiality of Alcohol and Drug Abuse Patient Records regulations: The Federal rules restrict any use of the information to criminally investigate or prosecute any alcohol or drug abuse patient.[facility]In the event this information is protected by the Federal Confidentiality of Alcohol and Drug Abuse Patient Records regulations: The Federal rules restrict any use of the information to criminally investigate or prosecute any alcohol or drug abuse patient.[facility]In the event this information is protected by the Federal Confidentiality of Alcohol and Drug Abuse Patient Records regulations: The Federal rules restrict any use of the information to criminally investigate or prosecute any alcohol or drug abuse patient.[facility]In the event this information is protected by the Federal Confidentiality of Alcohol and Drug Abuse Patient Records regulations: The Federal rules restrict any use of the information to criminally investigate or prosecute any alcohol or drug abuse patient.[facility]In the event this information is protected by the Federal Confidentiality of Alcohol and Drug Abuse Patient Records regulations: The Federal rules restrict any use of the information to criminally investigate or prosecute any alcohol or drug abuse patient.[facility]In the event this information is protected by the Federal Confidentiality of Alcohol and Drug Abuse Patient Records regulations: The Federal rules restrict any use of the information to criminally investigate or prosecute any alcohol or drug abuse patient.[facility]In the event this information is protected by the Federal Confidentiality of Alcohol and Drug Abuse Patient Records regulations: The Federal rules restrict any use of the information to criminally investigate or prosecute any alcohol or drug abuse patient.[facility]In the event this information is protected by the Federal Confidentiality of Alcohol and Drug Abuse Patient Records regulations: The Federal rules restrict any use of the information to criminally investigate or prosecute any alcohol or drug abuse patient.[facility]In the event this information is protected by the Federal Confidentiality of Alcohol and Drug Abuse Patient Records regulations: The Federal rules restrict any use of the information to criminally investigate or prosecute any alcohol or drug abuse patient.[facility]In the event this information is protected by the Federal Confidentiality of Alcohol and Drug Abuse Patient Records regulations: The Federal rules restrict any use of the information to criminally investigate or prosecute any alcohol or drug abuse patient.[facility]In the event this information is protected by the Federal Confidentiality of Alcohol and Drug Abuse Patient Records regulations: The Federal rules restrict any use of the information to criminally investigate or prosecute any alcohol or drug abuse patient.[facility]In the event this information is protected by the Federal Confidentiality of Alcohol and Drug Abuse Patient Records regulations: The Federal rules restrict any use of the information to criminally investigate or prosecute any alcohol or drug abuse patient.[facility]In the event this information is protected by the Federal Confidentiality of Alcohol and Drug Abuse Patient Records regulations: The Federal rules restrict any use of the information to criminally investigate or prosecute any alcohol or drug abuse patient.[facility]In the event this information is protected by the Federal Confidentiality of Alcohol and Drug Abuse Patient Records regulations: The Federal rules restrict any use of the information to criminally investigate or prosecute any alcohol or drug abuse patient.[facility]In the event this information is protected by the Federal Confidentiality of Alcohol and Drug Abuse Patient Records regulations: The Federal rules restrict any use of the information to criminally investigate or prosecute any alcohol or drug abuse patient.[facility]In the event this information is protected by the Federal Confidentiality of Alcohol and Drug Abuse Patient Records regulations: The Federal rules restrict any use of the information to criminally investigate or prosecute any alcohol or drug abuse patient.[facility]In the event this information is protected by the Federal Confidentiality of Alcohol and Drug Abuse Patient Records regulations: The Federal rules restrict any use of the information to criminally investigate or prosecute any alcohol or drug abuse patient.[facility]In the event this information is protected by the Federal Confidentiality of Alcohol and Drug Abuse Patient Records regulations: The Federal rules restrict any use of the information to criminally investigate or prosecute any alcohol or drug abuse patient.[facility]In the event this information is protected by the Federal Confidentiality of Alcohol and Drug Abuse Patient Records regulations: The Federal rules restrict any use of the information to criminally investigate or prosecute any alcohol or drug abuse patient.[facility]In the event this information is protected by the Federal Confidentiality of Alcohol and Drug Abuse Patient Records regulations: The Federal rules restrict any use of the information to criminally investigate or prosecute any alcohol or drug abuse patient.[facility]In the event this information is protected by the Federal Confidentiality of Alcohol and Drug Abuse Patient Records regulations: The Federal rules restrict any use of the information to criminally investigate or prosecute any alcohol or drug abuse patient.[facility]In the event this information is protected by the Federal Confidentiality of Alcohol and Drug Abuse Patient Records regulations: The Federal rules restrict any use of the information to criminally investigate or prosecute any alcohol or drug abuse patient.[facility]In the event this information is protected by the Federal Confidentiality of Alcohol and Drug Abuse Patient Records regulations: The Federal rules restrict any use of the information to criminally investigate or prosecute any alcohol or drug abuse patient.[facility]In the event this information is protected by the Federal Confidentiality of Alcohol and Drug Abuse Patient Records regulations: The Federal rules restrict any use of the information to criminally investigate or prosecute any alcohol or drug abuse patient.[facility]In the event this information is protected by the Federal Confidentiality of Alcohol and Drug Abuse Patient Records regulations: The Federal rules restrict any use of the information to criminally investigate or prosecute any alcohol or drug abuse patient.[facility]In the event this information is protected by the Federal Confidentiality of Alcohol and Drug Abuse Patient Records regulations: The Federal rules restrict any use of the information to criminally investigate or prosecute any alcohol or drug abuse patient.[facility]In the event this information is protected by the Federal Confidentiality of Alcohol and Drug Abuse Patient Records regulations: The Federal rules restrict any use of the information to criminally investigate or prosecute any alcohol or drug abuse patient.[facility] Reason for Visit (unrecogniz ed section and content) Reason Comments Establish Care Transfer of Care Reason Comments Results Reason Comments Established Patient Reason Comments Radio Gen HB6 Specialty Diagnoses / Procedures Referred By Contac t Referred To Contact XR IMAGING Diagnoses AAA (abdominal aortic aneurysm) without rupture (HCC) Peripheral vascular disease (HCC) Procedures XR ABDOMEN 3V KUB W/OBLIQUES RADIOLOGIC EXAM ABDOMEN 3+ VIEWS Osmin Singh MD [address] [place] [address] Xr Imaging Referral ID Status Reason Start Date Expiration Date V isits Requested Visits Authorized [id number] Closed Auto-Generate d Referral 11/17/2021 12/17/2022 1 1 Reason Comments Appointment Reason Comments Established Patient follow up-kidneys Reason Comments F/U HTN 3 Month Reason Comments Growth of concern Scaling on ears and scalp Reason Comments Refill Request Reason Comments Orders Reason Comments New Patient Change In Bowel Habits Specialty Diagnoses / Procedures Referred By Contac t Referred To Contact FUNCTIONAL MEDICINE Diagnoses Irritable bowel syndrome with diarrhea Gassiness Procedures CONSULT TO FUNCTIONAL MEDICINE OFFICE/OUTPATIENT [facility] 60-74 MINUTES Kezia Dubose MD [address] [place] [address] [facility] [address] [place] [address] Referral ID Status Reason Start Date Expiration Date Visits Requested Visits Authorized [id number] Pending Review PCP Requested Referral 03/03/2022 03/03/2023 1 1 Reason Comments New Patient Specialty Diagnoses / Procedures Referred By Judy clark Referred To Contact FUNCTIONAL MEDICINE Diagnoses Irritable bowel syndrome with diarrhea Gassiness Procedures CONSULT TO FUNCTIONAL MEDICINE OFFICE/OUTPATIENT [facility] 60-74 MINUTES Kezia Dubose MD [address] [place] [address] [facility] [address] [place] [address] Reason Comments Insurance Authorization Reason Onset Date Comments SPP General - No-go 10/13/2022 Xifaxan Reason Comments Follow Up refill needed Reason Onset Date Comments [facility] 04/07/2023 enrollment Reason Comments [facility] Order Request Reason Comments I: [facility] PT POC Reason Comments Patient Update Reason Comments Consult Reason Onset Date Comments Community Monitoring Outreach 05/04/2023 CD Telephonic Outreach Reason Comments Home Health Orders Reason Onset Date Comments Community Monitoring Outreach 05/05/2023 CD Telephonic Outreach Reason Comments Medication Request Orders Reason Comments Attempt to fax current med list to [employer] Reason Onset Date Comments Refill Request 05/12/2023 Reason Onset Date Comments Community Monitoring Outreach 06/02/2023 CD Telephonic Outreach Reason Comments Patient Question Reason Comments CARD Follow Up 6 Month Reason Onset Date Comments Community Monitoring Outreach 07/03/2023 CD Telephonic Outreach Reason Onset Date Comments Community Monitoring Outreach 08/01/2023 CD Telephonic Outreach Reason Comments Follow Up Pt reported eye exam 06/29/2023, denied falls. Reason Onset Date Comments Community Monitoring Outreach 09/08/2023 CD M Telephonic Outreach Reason Comments Full Body Skin Check Reason Onset Date Comments Community Monitoring Outreach 11/15/2023 CD M Telephonic Outreach Reason Onset Date Comments Community Monitoring Outreach 12/26/2023 CD M Telephonic Outreach Reason Onset Date Comments Community Monitoring Outreach 01/23/2024 CD M Telephonic Outreach Reason Comments Cardiology Follow Up Reason Comments Recheck Bp follow up Reason Comments Follow Up Follow up Stroke. Reason Comments Urinary Problem burning with urinati on x 1-2 weeks Reason Onset Date Comments Community Monitoring Outreach 02/23/2024 CD M Telephonic Outreach - Second Attempt Reason Onset Date Comments Community Monitoring Outreach 02/27/2024 CD M Telephonic Outreach - Second Attempt Reason Comments Urinary Problem Burning x 4 weeks Reason Onset Date Comments Refill Request 03/23/2024 Reason Onset Date Comments Community Monitoring Outreach 03/25/2024 CD M Telephonic Outreach Reason Comments F/U HTN 6 Month Reason Comments Recheck 6 month follow up Reason Onset Date Comments Refill Request 04/22/2024 Reason Comments Hospital F/U Reason Onset Date Comments Opened In Error 05/10/2024 Opened in Error Reason Onset Date Comments Community Monitoring Outreach 05/15/2024 [facility] Telephonic Outreach Reason Comments Hospital F/U syncope discharged o n 05/14/24 Reason Onset Date Comments Refill Request 06/01/2024 Reason Onset Date Comments Population Health Navigation Outreach 06/25/2024 [facility] Reason Comments Patient Update Fmla paperwork Care Teams (unrecognized sec tion and content) Lamp Stack Developer Relationship Specialty Start Date End Date Kezia Dubose MD [address] [place], [place] [id number] PCP - General Internal Medicine 01/28/22 Lamp Stack Developer Relationship Specialty Start Date End Date Kezia Dubose MD [address] [place], [place] [id number] PCP - General Internal Medicine 01/28/22 Lamp Stack Developer Relationship Specialty Start Date End Date Kezia Dubose MD [address] [place], [place] [id number] PCP - General Internal Medicine 01/28/22 Lamp Stack Developer Relationship Specialty Start Date End Date Kezia Dubose MD [address] [place] [address] PCP - General Internal Medicine 01/28/22 Lamp Stack Developer Relationship Specialty Start Date End Date Kezia Dubose MD [address] [place] [address] PCP - General Internal Medicine 01/28/22 Lamp Stack Developer Relationship Specialty Start Date End Date Kezia Dubose MD [address] [place] [address] PCP - General Internal Medicine 01/28/22 Lamp Stack Developer Relationship Specialty Start Date End Date Kezia Dubose MD [address] [place] [address] PCP - General Internal Medicine 01/28/22 Lamp Stack Developer Relationship Specialty Start Date End Date Kezia Dubose MD [address] [place] [address] PCP - General Internal Medicine 01/28/22 Lamp Stack Developer Relationship Specialty Start Date End Date Kezia Dubose MD [address] [place] [address] PCP - General Internal Medicine 01/28/22 Lamp Stack Developer Relationship Specialty Start Date End Date Kezia Dubose MD [address] [place] [address] PCP - General Internal Medicine 01/28/22 Lamp Stack Developer Relationship Specialty Start Date End Date Kezia Dubose MD [address] [place] [address] PCP - General Internal Medicine 01/28/22 Lamp Stack Developer Relationship Specialty Start Date End Date Kezia Dubose MD [address] [place] [address] PCP - General Internal Medicine 01/28/22 Lamp Stack Developer Relationship Specialty Start Date End Date Kezia Dubose MD [address] [place] [address] PCP - General Internal Medicine 01/28/22 Lamp Stack Developer Relationship Specialty Start Date End Date Kezia Dubose MD [address] [place] [address] PCP - General Internal Medicine 01/28/22 Lamp Stack Developer Relationship Specialty Start Date End Date Kezia Dubose MD [address] [place] [address] PCP - General Internal Medicine 01/28/22 Lamp Stack Developer Relationship Specialty Start Date End Date Kezia Dubose MD [address] [place] [address] PCP - General Internal Medicine 01/28/22 Lamp Stack Developer Relationship Specialty Start Date End Date Kezia Dubose MD [address] [place] [address] PCP - General Internal Medicine 01/28/22 Lamp Stack Developer Relationship Specialty Start Date End Date Kezia Dubose MD [address] [place] [address] PCP - General Internal Medicine 01/28/22 Lamp Stack Developer Relationship Specialty Start Date End Date Kezia Dubose MD [address] [place] [address] PCP - General Internal Medicine 01/28/22 Lamp Stack Developer Relationship Specialty Start Date End Date Kezia Dubose MD [address] [place] [address] PCP - General Internal Medicine 01/28/22 Lamp Stack Developer Relationship Specialty Start Date End Date Kezia Dubose MD [address] [place] [address] PCP - General Internal Medicine 01/28/22 Lamp Stack Developer Relationship Specialty Start Date End Date Kezia Dubose MD [address] [place] [address] PCP - General Internal Medicine 01/28/22 India Woodson, leacherFlower Grader 04/10/23 Lamp Stack Developer Relationship Specialty Start Date End Date Kezia Dubose MD [address] [place] [address] PCP - General Internal Medicine 01/28/22 India Woodson, leacherFlower Grader 04/10/23 Lamp Stack Developer Relationship Specialty Start Date End Date Kezia Dubose MD [address] [place] [address] PCP - General Internal Medicine 01/28/22 India Woodson, leacherFlower Grader 04/10/23 Lamp Stack Developer Relationship Specialty Start Date End Date Kezia Dubose MD [address] [place] [address] PCP - General Internal Medicine 01/28/22 India Woodson, leacherFlower Grader 04/10/23 Lamp Stack Developer Relationship Specialty Start Date End Date Kezia Dubose MD [address] [place] [address] PCP - General Internal Medicine 01/28/22 India Woodson, leacherFlower Grader 04/10/23 Lamp Stack Developer Relationship Specialty Start Date End Date Kezia Dubose MD [address] [place] [address] PCP - General Internal Medicine 01/28/22 India Woodson, leacherFlower Grader 04/10/23 Lamp Stack Developer Relationship Specialty Start Date End Date Kezia Dubose MD [address] [place] [address] PCP - General Internal Medicine 01/28/22 India Woodson RN Flower Grader 04/10/23 Lamp Stack Developer Relationship Specialty Start Date End Date Kezia Dubose MD [address] [place] [address] PCP - General Internal Medicine 01/28/22 India Woodson, leacherFlower Grader 04/10/23 Lamp Stack Developer Relationship Specialty Start Date End Date Kezia Dubose MD [address] [place] [address] PCP - General Internal Medicine 01/28/22 India Woodson, leacherFlower Grader 04/10/23 Lamp Stack Developer Relationship Specialty Start Date End Date Kezia Dubose MD [address] [place] [address] PCP - General Internal Medicine 01/28/22 India Woodson, leacherFlower Grader 04/10/23 Lamp Stack Developer Relationship Specialty Start Date End Date Keiza Dubose MD [address] [place] [address] PCP - General Internal Medicine 01/28/22 India Woodson, leacherFlower Grader 04/10/23 Lamp Stack Developer Relationship Specialty Start Date End Date Kezia Dubose MD [address] [place] [address] PCP - General Internal Medicine 01/28/22 India Woodson, leacherFlower Grader 04/10/23 Lamp Stack Developer Relationship Specialty Start Date End Date Kezia Dubose MD [address] [place] [address] PCP - General Internal Medicine 01/28/22 India Woodson, leacherFlower Grader 04/10/23 Lamp Stack Developer Relationship Specialty Start Date End Date Kezia Dubose MD [address] [place] [address] PCP - General Internal Medicine 01/28/22 India Woodson, leacherFlower Grader 04/10/23 Lamp Stack Developer Relationship Specialty Start Date End Date Kezia Dubose MD [address] [place] [address] PCP - General Internal Medicine 01/28/22 India Woodson, leacherFlower Grader 04/10/23 Lamp Stack Developer Relationship Specialty Start Date End Date Kezia Dubose MD [address] [place] [address] PCP - General Internal Medicine 01/28/22 India Woodson, leacherFlower Grader 04/10/23 Lamp Stack Developer Relationship Specialty Start Date End Date Kezia Dubose MD [address] [place] [address] PCP - General Internal Medicine 01/28/22 India Woodson, leacherFlower Grader 04/10/23 Lamp Stack Developer Relationship Specialty Start Date End Date Kezia Dubose MD [address] [place] [address] PCP - General Internal Medicine 01/28/22 India Woodson, leacherFlower Grader 04/10/23 Lamp Stack Developer Relationship Specialty Start Date End Date Kezia Dubose MD [address] [place] [address] PCP - General Internal Medicine 01/28/22 India Woodson, leacherFlower Grader 04/10/23 Lamp Stack Developer Relationship Specialty Start Date End Date Kezia Dubose MD [address] [place] [address] PCP - General Internal Medicine 01/28/22 India Woodson, leacherFlower Grader 04/10/23 Lamp Stack Developer Relationship Specialty Start Date End Date Kezia Dubose MD [address] [place] [address] PCP - General Internal Medicine 01/28/22 India Woodson, leacherFlower Grader 04/10/23 Lamp Stack Developer Relationship Specialty Start Date End Date Kezia Dubose MD [address] [place] [address] PCP - General Internal Medicine 01/28/22 India Woodson, leacherFlower Grader 04/10/23 Lamp Stack Developer Relationship Specialty Start Date End Date Kezia Dubose MD [address] [place] [address] PCP - General Internal Medicine 01/28/22 India Woodson, leacherFlower Grader 04/10/23 Lamp Stack Developer Relationship Specialty Start Date End Date Kezia Dubose MD [address] [place] [address] PCP - General Internal Medicine 01/28/22 Lamp Stack Developer Relationship Specialty Start Date End Date Kezia Dubose MD [address] [place] [address] PCP - General Internal Medicine 01/28/22 Lamp Stack Developer Relationship Specialty Start Date End Date Kezia Dubose MD [address] [place] [address] PCP - General Internal Medicine 01/28/22 Lamp Stack Developer Relationship Specialty Start Date End Date Kezia Dubose MD [address] [place] [address] PCP - General Internal Medicine 01/28/22 FOR RECORDS PERTAINING TO PATIENTS WHO ARE OR HAVE BEEN ENROLLED IN A CHEMICAL DEPENDENCY/SUBSTANCEABUSE PROGRAM, SOME INFORMATION MAY BE OMITTED. This clinical summary was aggregated from multiple sources. Caution should be exercised in using it in the provision of clinical care. This summary normalizes information from multiple sources, and as a consequence, information in this document may materially change the coding, format and clinical context of patient data. In addition, data may be omitted in some cases. CLINICAL DECISIONS SHOULD BE BASED ON THE PRIMARY CLINICAL RECORDS. [employer] provides no warranty or guarantee of the accuracy or completeness of information in this document.
[2024-07-11] MEDS: 0.9% Saline Lock 10 ML Syringe IV ×2 (01:45→12:06)
[2024-07-11] MEDS: Morphine 4 MG/ML Syringe IV (01:45)
[2024-07-11 06:25] LABS: Absolute Lymphocyte Count 1.22 X10^3/uL (0.83-4.51); Absolute Neutrophil Count 4.2 X10^3/uL (2.0-7.7); Basophil# 0.03 X10^3/uL; Basophil% 0.5 % (0-1); Eosinophil# 0.12 X10^3/uL; Eosinophils% 1.9 % (0-5); Hematocrit 36.8 % (40-54); Hemoglobin 12.3 g/dL (13.0-16.5); Lymphocyte # 1.22 X10^3/ul (0.83-4.51); Lymphocyte % 18.9 % (19-41); Mean Corp Hgb Conc 33.4 g/dL (32-36); Mean Corpuscular Hgb 30.9 pg (27.0-32.0); Mean Corpuscular Volume 92.5 fL (80-94); Mean Platelet Vol. 10.6 fl (6.2-12.0); Monocyte# 0.81 X10^3/uL; Monocyte% 12.6 % (0-10); NRBC Flagged by Analyzer 0 % (0-5); Neutrophil # 4.24 X10^3/uL (2.7-7.7); Neutrophil % 65.8 % (47-70); Platelet Count 183 K/mm3 (150-450); RBC Distribution Width CV 14.1 % (11.6-14.6); RBC Distribution Width SD 47.8 fl (35.1-43.9); Red Blood Count 3.98 M/mm3 (4.6-6.2); White Blood Count 6.4 K/mm3 (4.4-11.0)
[2024-07-11 06:34] LABS: International Normalized Ratio 1.1; Prothrombin Time (Protime)PT. 13.9 SECONDS (11.7-14.9)
[2024-07-11 06:35] LABS: Partial Thromboplast Time 31.8 Seconds (24.1-36.2)
[2024-07-11 06:59] LABS: ALB/GLOB Ratio 0.9 RATIO (0.9-2.4); AST(SGOT) 11 U/L (15-37); Alanine Aminotransfer ALT/SGPT 14 U/L (16-61); Albumin, Serum 2.9 g/dL (3.2-5.0); Alkaline Phosphatase 70 U/L (45-117); Anion Gap 4 (5-15); BUN 22 mg/dL (7-18); BUN/Creat Ratio 19.1 RATIO (10-20); Calcium,Total 8.8 mg/dL (8.5-10.1); Chloride 106 mmol/L (98-107); Creatinine, Serum 1.15 mg/dL (0.70-1.30); EST Glomerular Filtration Rate 64 mL/min (>60); Est Glom Filt Rate - Afr Amer 77 mL/min (>60); Estimated Creatinine Clearance 41.23 ml/min; Globulin 3.3 g/dL (2.2-4.2); Glucose 122 mg/dL (74-106); Protein, Total 6.2 g/dL (6.4-8.2); Sodium Level 136 mmol/L (136-145)
[2024-07-11] MEDS: 0.9% Normal Saline (1000mL) 1,000 ML 75 ML IV ×2 (12:06→22:50)
--- NOTE | 2024-07-11 12:15 | CASEMGMT ---
Addendum entered by Martin Yusuf 07/12/24 14:07: E-mail received from dtr, Kesha, with HCPOA document. Pt's , Lily, is primary agent. Dtr, Kesha, is 1st alternate. Son, Boston, is 2nd alternate. Son, Syd, is 3rd alternate. Document printed off and placed on pt's chart. Addendum entered by Martin Yusuf 07/12/24 11:42: SESAR FLOWERS did not receive e-mail from daughter, Kesha, w/HCPOA documents. Kesha in room at this time and she was made aware. She states she has not sent them yet, but will do that this morning. Original Note: RN KRISTIE HAND TOUCH UP PAINTER KRISTIE?spoke w/pt's daughter, Kesha, privately, in waiting room, as daughter requests that hospice not be mentioned to pt, stating we try not to talk about hospice in front of him, it just makes him upset . Pt has vascular dementia. Pt was on hospice prior to admission, and hospice was revoked when pt came to the hospital for treatment of fracture. The following information obtained from daughter. Care providers, insurance, and demographics verified/updated at this time. Strata:?3 PCP: Dr Lin Insurance: [facility] Prescription Benefit: yes Living Will/HPOA: Daughter states pt has a LW and HCPOA, stating her mother (pt's ) is listed as primary HCPOA, and she is pretty sure it then is her (Kesha) as 1st alternative and then her brothers, Boston and Syd. She thinks copies of these are on-file @ [facility] and states if not, she can bring them in. Kesha states her mother has not been in a frame of mind to make decisions lately stating she has significant anxiety, and she has been deferring decision-making to her (Kesha). RN did find LW on file and HCPOA, but page with listing of agents not scanned in. Noted page 3 is missing, which may be list of agents. Daughter made aware and states she will e-mail HCPOA to this RN KRISTIE. LNOK: , Lily. Daughter, Kesha. 2 sons, Boston and Syd. Living Arrangements: Lives w/ in one-story home w/basement w/ramp entrance. Pt has been ambulating independently @ home and mostly independent w/ADL's: bathing and dressing, except does assist, if needed. They have private-pay caregivers 3 days/week for 8 hrs/day, who take pt to appts, and assist w/meals and home mgnt tasks. Transportation:?Pt does not drive and Kesah states, although still able to drive, they don't want her to and try to arrange things around when the caregivers or family is available. DME: Pt has the following DME: walker (belongs to pt). Pt also has a W/C (daughter not sure if this belongs to pt/, or if this is from Hospice). Pt also has a hospital bed and O2 from Hospice (has not been wearing the O2, but it's in house/if needed). SNF: Pt has been to [facility] and [facility] in the past. Discussed discharge plan w/Kesha. Questions answered re: SNF's, AL, and hospice. Kesha was made aware insurance does not cover for skilled level of care, such as SNF's or HHC at the same time as hospice, as goals of care are different for each. She voices understanding. She states would like pt to get therapy @ discharge to get him more mobile so he can eventually either go to an assisted living facility w/his or back home w/ on hospice. She states [facility] TCU is her 1st preference and declines wanting list of other SNF options unless TCU unable to accept him. Lavern WAYNE, made aware. PLAN: SNF. Pt to go to surgery today. PT/OT evals pending. Ирина ARIASN RN CM
--- NOTE | 2024-07-11 12:55 | PN_ITS ---
Subjective Subjective Patient seen and examined. His daughter was by his bedside. Patient is frail but communicative. He had no active complaints. Pain is controlled. Review of systems otherwise negative. He is for surgery today. Objective Data Objective Data Vital Signs: Vital Signs Temp Pulse Resp BP Pulse Ox O2 Del Method O2 Flow Rate 99.1 F 67 12 134/67 H 98 Nasal Cannula 2 07/11/24 12:07 07/11/24 12:07 07/11/24 12:07 07/11/24 12:07 07/11/24 12:07 07/11/24 12:07 07/11/24 12:07 Oxygen Flow Rate (L/min) 2 Oxygen Delivery Method Nasal Cannula Weight: 142 lb Body Mass Index (BMI) 20.9 Intake & Output: Intake and Output for Last 24 Hours 07/09/24 07/10/24 07/11/24 23:59 23:59 23:59 Intake Total 0 / 0 Output Total 750 / 750 Balance -750 / -750 Lab / Micro Data 07/11/24 06:15 07/11/24 06:15 Labs: Laboratory Results - last 24 hr 07/10/24 14:35: WBC 10.1, RBC 4.62, Hgb 14.1, Hct 42.8, MCV 92.6, MCH 30.5, MCHC 32.9, RDW Std Deviation 48.4 H, RDW Coeff of Chaim 14.3, Plt Count 201, MPV 10.4, Immature Gran % (Auto) 0.300, Neut % (Auto) 74.6 H, Lymph % (Auto) 11.7 L, [place] % (Auto) 10.6 H, Eos % (Auto) 2.4, Baso % (Auto) 0.4, Absolute Neuts (auto) 7.6, Absolute Lymphs (auto) 1.18, Nucleated RBC % 0, Sodium 139, Potassium 4.1, Chloride 104, Carbon Dioxide 30.0, Anion Gap 5, BUN 22 H, Creatinine 1.25, Estim Creat Clear Calc 41.63, Est GFR (MDRD) Af Amer 70, Est GFR (MDRD) Non-Af 58 L, BUN/Creatinine Ratio 17.6, Glucose 111 H, Calcium 9.5, Blood Type A POSITIVE, Antibody Screen NEGATIVE 07/10/24 22:47: Sodium 138, Potassium 3.8, Chloride 106, Carbon Dioxide 27.0, Anion Gap 6, BUN 20 H, Creatinine 1.21, Estim Creat Clear Calc 39.18, Est GFR (MDRD) Af Amer 73, Est GFR (MDRD) Non-Af 60, BUN/Creatinine Ratio 16.5, Glucose 167 H, Calcium 9.2, Total Bilirubin 1.10 H, AST 12 L, ALT 17, Alkaline Phosphatase 78, Total Protein 6.9, Albumin 3.2, Globulin 3.7, Albumin/Globulin Ratio 0.9 07/11/24 06:15: WBC 6.4, RBC 3.98 L, Hgb 12.3 L, Hct 36.8 L, MCV 92.5, MCH 30.9, MCHC 33.4, RDW Std Deviation 47.8 H, RDW Coeff of Chaim 14.1, Plt Count 183, MPV 10.6, Immature Gran % (Auto) 0.300, Neut % (Auto) 65.8, Lymph % (Auto) 18.9 L, M colton % (Auto) 12.6 H, Eos % (Auto) 1.9, Baso % (Auto) 0.5, Absolute Neuts (auto) 4.2, Absolute Lymphs (auto) 1.22, Nucleated RBC % 0, PT 13.9, INR 1.1, APTT 31.8, Sodium 136, Potassium 4.0, Chloride 106, Carbon Dioxide 27.0, Anion Gap 4 L, BUN 22 H, Creatinine 1.15, Estim Creat Clear Calc 41.23, Est GFR (MDRD) Af Amer 77, Est GFR (MDRD) Non-Af 64, BUN/Creatinine Ratio 19.1, Glucose 122 H, Calcium 8.8, Total Bilirubin 1.20 H, AST 11 L, ALT 14 L, Alkaline Phosphatase 70, Total Protein 6.2 L, Albumin 2.9 L, Globulin 3.3, Albumin/Globulin Ratio 0.9 Radiography Diagnostic Testing: Radiology Impression Chest X-Ray 07/10/24 15:25 IMPRESSION: No radiographic evidence of acute cardiopulmonary disease. Electronically Signed: Ho Dawkins MD at 15:53 EDT , Hip/Pelvis X-Ray 07/10/24 15:25 IMPRESSION: Nondisplaced intertrochanteric fracture left femur. Electronically Signed: Ho Dawkins MD at 15:51 EDT , Physical Exam Const alert, oriented x3 and no apparent distress Constitutional Narrative: Very frail and weak HEENT normocephalic, head/scalp atraumatic and moist oral mucous membranes Eyes PERRL and EOMs intact bilaterally Neck no lymphadenopathy and supple Lymph Lymphatic: no lymphadenopathy noted and no lymphedema noted Resp normal respiratory effort, normal air movement and clear to auscultation bilaterally Resp Narrative: On 2 L of oxygen by nasal cannula. Cardio regular rate, regular rhythm, S1 normal heart sound, S2 normal heart sound and no murmurs Peripheral Pulses: pulses 2+ throughout GI normal to inspection, nondistended, normoactive bowel sounds, soft to palpation, non-tender and non-distended Extremity Extremity Narrative: Left lower extremity mildly shortened and externally rotated. Skin General Skin Exam: no breakdown Neuro CN's II-XII intact bilaterally and no sensory deficits noted Motor Exam: general weakness Psych thought process normal and cooperative Appearance: appropriate Assessment & Plan Assessment/Plan (1) Closed intertrochanteric fracture of left hip: QUALIFIERS: Encounter type: initial encounter Fracture alignment: nondisplaced Qualified Code(s): S72.145A - Nondisplaced intertrochanteric fracture of left femur, initial encounter for closed fracture (2) Injury due to fall: PLAN: Plan #Debility and weakness due to left intertrochanteric fracture from mechanical fall * Patient was on hospice at home. His legs gave way and he fell. Imaging done showed nondisplaced intertrochanteric fracture of the left femur. * Family revoked hospice. On p.o. Tylenol, p.o. oxycodone and IV morphine as needed for pain. * History of surgery today. Family planning on putting him back on hospice after surgery. * PT OT on board. Fall precautions. #History of CVA with residual right upper extremity weakness * On Plavix and statin. Plavix currently on hold due to surgery. PT OT on board. Fall precautions. * #BPH with obstructive symptoms: On Flomax #Vascular dementia with superimposed anxiety: On Ativan as needed #Hypertension: Amlodipine. IV hydralazine as needed #Chronic abdominal aortic aneurysm: Stable DVT prophylaxis: Heparin CODE STATUS: DNR CCA no intubation Charges/Coding Visit Charges Inpatient E&M: 35947 Subs Hosp L2
--- NOTE | 2024-07-11 14:02 | CHAPLAIN ---
Type of Pastoral Visit _x__ Initial Visit ___ Follow-up Visit ___ On-call Visit ___ General Patient Visit ___ Spiritual Assessment ___ Family Conference ___ Bereavement ___ Rapid Response ___ Code Blue ___ Other (describe below) Pastoral Care Referral From _x__ Patient _x__ Family ___ Nurse ___ Physician ___ Paint Striping Machine Operator ___ Candy Cutter Hand ___ Other (describe below) Sacrament/Intervention _x__ Active listening ___ Anointing ___ Jehovah'S Witness ___ Bereavement ___ Communion _x__ Kimberly exploration ___ ___ Life review _x__ Prayer ___ Reconciliation ___ Sacrament of Sick _x__ Supportive presence ___ Wedding ___ Other (describe below) Pastoral Comments this patient has been seen numerous times in the recent months in PCU and TCU; pt is awake but can only answer a few questions accurately in the discussion; pt is welcoming and appears to remember this shorthand teacher; spouse is at bedside and then a daughter comes into the room at end of the visit; pt and spouse welcome presence and prayer for support; spouse is very soft spoken but gives some background of the events that brought the fall and how the patient is doing now; pt again expresses thankfulness for the visit and the support of spiritual care
--- NOTE | 2024-07-11 14:28 | PCM.PRE.AN2 ---
ASA Classification* ASA Classification ASA Classification: 3 and E Assessment & Plan Anesthesia* Anesthesia Assessment Anesthesia Assessment: Discussed sedation and/or anesthesia options, risks, benefits, and alternatives with patient/parents/legal guardian/POA. Questions invited. The patient/parents/legal guardian/POA seems to understand and agrees to proceed with anesthesia plan. Reviewed the physical assessment, medical history, allergy history and patient home medications list prior to surgery/procedure/anesthetic and documented any changes. Performed airway and anesthesia risk assessments. Anesthesia Type Anesthesia Type: General History Source History Obtained from:: Patient and Chart Anesthesia Focused Assessment* Temperature: 99.1 F Pulse Rate: 67 Blood Pressure: 134/67 Respiratory Rate: 12 Pulse Ox: 98 Oxygen Delivery Method: Room Air Airway Assessment Mouth opens: >3 cm Mallampati Score: II Teeth Condition: Caps/Crowns (Patient has several crowns. All tight.) Neck Range of motion (ROM): Limited ROM (Somewhat decreased extension) Focused Labs Anesthesia Preop lab: CBC WBC 6.4 K/mm3 (4.4-11.0) 07/11/24 06:15 RBC 3.98 M/mm3 (4.6-6.2) L 07/11/24 06:15 Hgb 12.3 g/dL (13.0-16.5) L 07/11/24 06:15 Hct 36.8 % (40-54) L 07/11/24 06:15 Plt Count 183 K/mm3 (150-450) 07/11/24 06:15 CHEMISTRY Potassium 4.0 mmol/L (3.5-5.1) 07/11/24 06:15 Sodium 136 mmol/L (136-145) 07/11/24 06:15 Magnesium 1.7 mg/dL (1.6-2.6) 05/01/24 04:50 Phosphorus 3.3 mg/dL (2.5-4.9) 04/29/24 05:34 BUN 22 mg/dL (7-18) H 07/11/24 06:15 Creatinine 1.15 mg/dL (0.70-1.30) 07/11/24 06:15 Glucose 122 mg/dL (74-106) H 07/11/24 06:15 POC Glucose 97 mg/dL (74-106) 05/13/24 17:49 TSH 3.81 uIU/mL (0.358-3.74) H 04/27/24 21:08 COAG PT 13.9 SECONDS (11.7-14.9) 07/11/24 06:15 Pre-Assessment Diagnosis/Proposed Procedure Planned Operative Procedure(s): Left hip gamma nail fixation Anesthesia History 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 When Was Last Pacemaker Check QUESTION #4 FULL TEXT: You/Your Family Experience fever (hyperthermia) with Anesthesia Last Oral Intake Last Oral intake: Last Oral Intake NPO since 00:00 07/11/24 12:07 Meds taken in AM with sips of water? Meds patient instructed to take am of surgery PONV PONV - openstack cloud consulting architect: PONV - openstack cloud consulting architect Female HX of Motion Sickness HX of N/V After Surgery Non-Smoker Duration of Surgery greater than 60 minutes Number of Risk Factors PONV Score Height & Weight Height & Weight: Anesthesia: Height & Weight Height 5 ft 9 in 07/11/24 13:02 Weight: 64.41 kg 07/11/24 13:02 Body Mass Index (BMI) 20.9 07/11/24 12:07 Respiratory Assessment Respiratory Assessment - openstack cloud consulting architect: Respiratory Tract Infection Hx - openstack cloud consulting architect Hx Respiratory Tract Infection No 07/11/24 06:00 STOP Sleep Apnea STOP Sleep Apnea - openstack cloud consulting architect: STOP Sleep Apnea - openstack cloud consulting architect Hx Hypertension Yes 07/10/24 18:54 Hx Sleep Apnea No 07/10/24 18:54 CPAP BIPAP Do you snore loudly (louder Yes 07/10/24 18:54 than talking or can be heard Do you often feel tired/ No 07/10/24 18:54 fatigued/ sleepy during daytime? Has anyone observed you stop No 07/10/24 18:54 breathing during sleep? STOP Results Positive 07/10/24 18:54 QUESTION #5 FULL TEXT : Do you snore loudly (louder than talking or can be heard through closed doors)? 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 Specify any problems Hx of Preganancy in last 3 N/A 07/10/24 18:54 Months Nurse Filling Out Transfusion FSTEINER 07/10/24 18:54 & Questions: Date: 07/10/24 07/10/24 18:54 Time: 18:58 07/10/24 18:54 Patient unable to answer at this time (ie. confused, unrespo /Reproduction History /Reproductive History - openstack cloud consulting architect: /Reproductive Hx- openstack cloud consulting architect Hx Now No 07/11/24 06:00 Gestational Age (in weeks): EDC: Hx Hx Para Hx Section SAB No 07/11/24 06:00 Active Medications Active Medications: Current Medications Generic Name Dose Route Start Last Admin Trade Name Freq PRN Reason Stop Dose Admin Acetaminophen 650 mg 07/10/24 22:13 Acetaminophen 325 Mg Tablet PO Q4H PRN PRN Fever, pain 1-10 Al Hydroxide/Mg Hydroxide 30 ml 07/10/24 22:15 Mag Hydrox/Al Hydrox/Simeth 30 Ml Udc PO Q6H PRN PRN Gastric Burning Albuterol Sulfate 2.5 mg 07/10/24 22:13 Albuterol 2.5 Mg/3 Ml Vial.Neb. INHALATION Q2H PRN PRN Dyspnea, wheezing Amlodipine Besylate 5 mg 07/11/24 10:00 07/11/24 11:35 Amlodipine 5 Mg Tablet PO Not Given DAILY [facility] Protocol Guaifenesin 20 ml 07/10/24 22:15 Guaifenesin 10 Ml Udc (200mg/10ml) PO Q4H PRN PRN COUGH Heparin Sodium (Porcine) 5,000 unit 07/10/24 22:00 07/11/24 09:46 Heparin Injection (Vial) 5,000 Unit/Ml Vial SC Not Given Q12 [facility] Hydralazine HCl 10 mg 07/10/24 22:13 Hydralazine 20 Mg/Ml Vial IV Q4H PRN PRN SBP > 160 Protocol Sodium Chloride 100 mls @ 15 mls/hr 07/10/24 18:54 IV .Q6H40M PRN Saline Flush Sodium Chloride 100 mls @ 15 mls/hr 07/10/24 18:54 IV .Q6H40M PRN Additional IVPB Infusion Sodium Chloride 1,000 mls @ 75 mls/hr 07/11/24 09:50 07/11/24 12:06 IV 07/12/24 12:29 75 mls/hr .[id number] [facility] Administration Protocol Lorazepam 0.5 mg 07/10/24 17:24 Lorazepam 0.5 Mg Tablet PO TID PRN anxiety Melatonin 3 mg 07/10/24 22:15 Melatonin 3 Mg Tablet PO QHS PRN PRN INSOMNIA Morphine Sulfate 2 - 4 mg 07/10/24 22:13 07/11/24 01:45 Morphine 4 Mg/Ml Syringe IV 2 mg Q2H PRN PRN Administration Pain Score 4-10 Nutritional Formula (Lactose Free) 120 ml 07/11/24 10:00 07/11/24 11:37 Ensure Plus High Protein 120 Ml Liquid PO Not Given 4X/DAY [facility] Ondansetron HCl 4 mg 07/10/24 22:15 Ondansetron 4 Mg/2 Ml Vial IV Q8H PRN PRN NAUSEA/VOMITING Oxycodone HCl 2.5 - 5 mg 07/10/24 22:13 Oxycodone 5 Mg Tablet PO Q4H PRN PRN Pain Score 4-10 Prochlorperazine Edisylate 5 mg 07/10/24 22:15 Prochlorperazine 10 Mg/2 Ml Vial IV Q4H PRN PRN Breakthrough nausea/vomiting Senna/Docusate Sodium 2 tablet 07/11/24 10:00 07/11/24 11:36 Senna/Docusate Sodium 1 Tablet PO Not Given BID [facility] Sodium Chloride 10 - 40 ml 07/10/24 18:54 07/11/24 12:06 0.9% Saline Lock 10 Ml Syringe IV 10 ml UD PRN Administration SALINE FLUSH Tamsulosin HCl 0.4 mg 07/11/24 17:30 Tamsulosin Hcl 0.4 Mg Capsule PO DAILY@1730 [facility] Medical History (Updated 07/10/24 @ 19:08 by Aura Stephen) Dementia Stroke/cerebrovascular accident Cognitive impairment Syncope Hyponatremia Altered mental status Essential (primary) hypertension Internal hemorrhoids Diverticulosis Celiac disease Carotid stenosis, bilateral BPH (benign prostatic hyperplasia) Hyperlipidemia Non-smoker AAA (abdominal aortic aneurysm) Hypertension Stroke/cerebrovascular accident Home Medications ?Medication ?Instructions ?Recorded ?Last Taken ?Type lorazepam 0.5 mg tablet 0.5 mg PO TID PRN anxiety #6 tabs 05/14/24 Unknown Rx amlodipine 5 mg tablet 5 mg PO DAILY HYPERTENSION 07/10/24 Unknown History clopidogrel 75 mg tablet 75 mg PO DAILY ANTIPLATELET 07/10/24 Unknown History tamsulosin 0.4 mg capsule 0.4 mg PO DAILY BPH 07/10/24 Unknown History Allergy/AdvReac Type Severity Reaction Status Date / Time Food Allergies: Uncoded AdvReac Intermediate Other Verified 07/10/24 14:10 Family History Father CVA (cerebral vascular accident) Sister Lupus (systemic lupus erythematosus) Brother Diabetes Brother Diabetes Surgical History History of excision of lesion History of excision of lesion H/O abdominal aortic aneurysm repair Social History household members: spouse housing: other details: Private one-story home with no steps. 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 pets and animals: Yes Smoking Status: Never smoker alcohol intake: never substance use type: does not use Review of Systems (Anesthesia) ROS Narrative System reviewed and no additional complaints, except as documented.
--- NOTE | 2024-07-11 14:43 | PRE.ANES_ITS ---
Assessment & Plan Anesthesia* Anesthesia Assessment Anesthesia Assessment: Discussed sedation and/or anesthesia options, risks, benefits, and alternatives with patient/parents/legal guardian/POA. Questions invited. The patient/parents/legal guardian/POA seems to understand and agrees to proceed with anesthesia plan. Reviewed the physical assessment, medical history, allergy history and patient home medications list prior to surgery/procedure/anesthetic and documented any changes. Performed airway and anesthesia risk assessments. Anesthesia Focused Assessment* Temperature: 99.1 F Pulse Rate: 67 Blood Pressure: 134/67 Respiratory Rate: 12 Pulse Ox: 98 Focused Labs Anesthesia Preop lab: CBC WBC 6.4 K/mm3 (4.4-11.0) 07/11/24 06:15 RBC 3.98 M/mm3 (4.6-6.2) L 07/11/24 06:15 Hgb 12.3 g/dL (13.0-16.5) L 07/11/24 06:15 Hct 36.8 % (40-54) L 07/11/24 06:15 Plt Count 183 K/mm3 (150-450) 07/11/24 06:15 CHEMISTRY Potassium 4.0 mmol/L (3.5-5.1) 07/11/24 06:15 Sodium 136 mmol/L (136-145) 07/11/24 06:15 Magnesium 1.7 mg/dL (1.6-2.6) 05/01/24 04:50 Phosphorus 3.3 mg/dL (2.5-4.9) 04/29/24 05:34 BUN 22 mg/dL (7-18) H 07/11/24 06:15 Creatinine 1.15 mg/dL (0.70-1.30) 07/11/24 06:15 Glucose 122 mg/dL (74-106) H 07/11/24 06:15 POC Glucose 97 mg/dL (74-106) 05/13/24 17:49 TSH 3.81 uIU/mL (0.358-3.74) H 04/27/24 21:08 COAG PT 13.9 SECONDS (11.7-14.9) 07/11/24 06:15 Pre-Assessment Diagnosis/Proposed Procedure Planned Operative Procedure(s): Left hip gamma nail fixation Anesthesia History Anesthesia History - desktop publishing associate: 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 When Was Last Pacemaker Check QUESTION #4 FULL TEXT: You/Your Family Experience fever (hyperthermia) with Anesthesia Last Oral Intake Last Oral intake: Last Oral Intake NPO since 00:00 07/11/24 12:07 Meds taken in AM with sips of water? Meds patient instructed to take am of surgery PONV PONV - desktop publishing associate: PONV - desktop publishing associate Female HX of Motion Sickness HX of N/V After Surgery Non-Smoker Duration of Surgery greater than 60 minutes Number of Risk Factors PONV Score Height & Weight Height & Weight: Anesthesia: Height & Weight Height 5 ft 9 in 07/11/24 13:02 Weight: 64.41 kg 07/11/24 13:02 Body Mass Index (BMI) 20.9 07/11/24 12:07 Respiratory Assessment Respiratory Assessment - desktop publishing associate: Respiratory Tract Infection Hx - desktop publishing associate Hx Respiratory Tract Infection No 07/11/24 06:00 STOP Sleep Apnea STOP Sleep Apnea - desktop publishing associate: STOP Sleep Apnea - desktop publishing associate Hx Hypertension Yes 07/10/24 18:54 Hx Sleep Apnea No 07/10/24 18:54 CPAP BIPAP Do you snore loudly (louder Yes 07/10/24 18:54 than talking or can be heard Do you often feel tired/ No 07/10/24 18:54 fatigued/ sleepy during daytime? Has anyone observed you stop No 07/10/24 18:54 breathing during sleep? STOP Results Positive 07/10/24 18:54 QUESTION #5 FULL TEXT : Do you snore loudly (louder than talking or can be heard through closed doors)? 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 Specify any problems Hx of Preganancy in last 3 N/A 07/10/24 18:54 Months Nurse Filling Out Transfusion FSTEINER 07/10/24 18:54 & Questions: Date: 07/10/24 07/10/24 18:54 Time: 18:58 07/10/24 18:54 Patient unable to answer at this time (ie. confused, unrespo /Reproduction History /Reproductive History - desktop publishing associate: /Reproductive Hx- desktop publishing associate Hx Now No 07/11/24 06:00 Gestational Age (in weeks): EDC: Hx Hx Para Hx Section SAB No 07/11/24 06:00 Active Medications Active Medications: Current Medications Generic Name Dose Route Start Last Admin Trade Name Freq PRN Reason Stop Dose Admin Acetaminophen 650 mg 07/10/24 22:13 Acetaminophen 325 Mg Tablet PO Q4H PRN PRN Fever, pain 1-10/10 Al Hydroxide/Mg Hydroxide 30 ml 07/10/24 22:15 Mag Hydrox/Al Hydrox/Simeth 30 Ml Udc PO Q6H PRN PRN Gastric Burning Albuterol Sulfate 2.5 mg 07/10/24 22:13 Albuterol 2.5 Mg/3 Ml Vial.Neb. INHALATION Q2H PRN PRN Dyspnea, wheezing Amlodipine Besylate 5 mg 07/11/24 10:00 07/11/24 11:35 Amlodipine 5 Mg Tablet PO Not Given DAILY [facility] Protocol Guaifenesin 20 ml 07/10/24 22:15 Guaifenesin 10 Ml Udc (200mg/10ml) PO Q4H PRN PRN COUGH Heparin Sodium (Porcine) 5,000 unit 07/10/24 22:00 07/11/24 09:46 Heparin Injection (Vial) 5,000 Unit/Ml Vial SC Not Given Q12 [facility] Hydralazine HCl 10 mg 10/16/24 22:13 Hydralazine 20 Mg/Ml Vial IV Q4H PRN PRN SBP > 160 Protocol Sodium Chloride 100 mls @ 15 mls/hr 07/10/24 18:54 IV .Q6H40M PRN Saline Flush Sodium Chloride 100 mls @ 15 mls/hr 07/10/24 18:54 IV .Q6H40M PRN Additional IVPB Infusion Sodium Chloride 1,000 mls @ 75 mls/hr 07/11/24 09:50 07/11/24 12:06 IV 07/12/24 12:29 75 mls/hr .[id number] [facility] Administration Protocol Lorazepam 0.5 mg 07/10/24 17:24 Lorazepam 0.5 Mg Tablet PO TID PRN anxiety Melatonin 3 mg 07/10/24 22:15 Melatonin 3 Mg Tablet PO QHS PRN PRN INSOMNIA Morphine Sulfate 2 - 4 mg 07/10/24 22:13 07/11/24 01:45 Morphine 4 Mg/Ml Syringe IV 2 mg Q2H PRN PRN Administration Pain Score 4-10 Nutritional Formula (Lactose Free) 120 ml 07/11/24 10:00 07/11/24 11:37 Ensure Plus High Protein 120 Ml Liquid PO Not Given 4X/DAY [facility] Ondansetron HCl 4 mg 07/10/24 22:15 Ondansetron 4 Mg/2 Ml Vial IV Q8H PRN PRN NAUSEA/VOMITING Oxycodone HCl 2.5 - 5 mg 07/10/24 22:13 Oxycodone 5 Mg Tablet PO Q4H PRN PRN Pain Score 4-10 Prochlorperazine Edisylate 5 mg 07/10/24 22:15 Prochlorperazine 10 Mg/2 Ml Vial IV Q4H PRN PRN Breakthrough nausea/vomiting Senna/Docusate Sodium 2 tablet 07/11/24 10:00 07/11/24 11:36 Senna/Docusate Sodium 1 Tablet PO Not Given BID [facility] Sodium Chloride 10 - 40 ml 07/10/24 18:54 07/11/24 12:06 0.9% Saline Lock 10 Ml Syringe IV 10 ml UD PRN Administration SALINE FLUSH Tamsulosin HCl 0.4 mg 07/11/24 17:30 Tamsulosin Hcl 0.4 Mg Capsule PO DAILY@1730 [facility] Medical History (Updated 07/10/24 @ 19:08 by Aura Stephen) Dementia Stroke/cerebrovascular accident Cognitive impairment Syncope Hyponatremia Altered mental status Essential (primary) hypertension Internal hemorrhoids Diverticulosis Celiac disease Carotid stenosis, bilateral BPH (benign prostatic hyperplasia) Hyperlipidemia Non-smoker AAA (abdominal aortic aneurysm) Hypertension Stroke/cerebrovascular accident Home Medications ?Medication ?Instructions ?Recorded ?Last Taken ?Type lorazepam 0.5 mg tablet 0.5 mg PO TID PRN anxiety #6 tabs 05/14/24 Unknown Rx amlodipine 5 mg tablet 5 mg PO DAILY HYPERTENSION 07/10/24 Unknown History clopidogrel 75 mg tablet 75 mg PO DAILY ANTIPLATELET 07/10/24 Unknown History tamsulosin 0.4 mg capsule 0.4 mg PO DAILY BPH 07/10/24 Unknown History Allergy/AdvReac Type Severity Reaction Status Date / Time Food Allergies: Uncoded AdvReac Intermediate Other Verified 07/10/24 14:10 Family History Father CVA (cerebral vascular accident) Sister Lupus (systemic lupus erythematosus) Brother Diabetes Brother Diabetes Surgical History History of excision of lesion History of excision of lesion H/O abdominal aortic aneurysm repair Social History household members: spouse housing: other details: Private one-story home with no steps. 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 pets and animals: Yes Smoking Status: Never smoker alcohol intake: never substance use type: does not use Review of Systems (Anesthesia) ROS Narrative System reviewed and no additional complaints, except as documented.
--- NOTE | 2024-07-11 14:48 | RAD_ITS ---
CLINICAL HISTORY: GAMMA NAIL Date: 07/11/2024 3:44 PM Date of : 1935 Comparison: 07/10/2024 Images assigned to this order were provided in conjunction with a surgical procedure performed in the operating room/procedural suite. Please see operative report for details. Fluoroscopic images: 6 Fluoroscopic time: 143 seconds Cumulative dose: NA, mGym2; 29.12; mGy Imaging documents gamma nail fixation of a LEFT intertrochanteric fracture with normal alignment seen. Refer to procedural note for complete description. IMPRESSIONS: 1. Fluoroscopic guidance for surgical planning and confirmation during gamma nail fixation of a LEFT intertrochanteric fracture with normal alignment demonstrated. Electronically Signed: Uri Barrera MD at 16:53 EDT , RAD/Hip Min 2 Views (Portable) IMPRESSION: undefined
--- NOTE | 2024-07-11 14:48 | CON.PCM.OR_ITS ---
HPI Consult Data Date of Consult: 07/11/24 HPI Narrative HPI Narrative: SERGO ROSAS, is a 89 M who presents with a left hip fracture. Reportedly patient lives at home with his family. He does have some dementia. 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 According the family he normally ambulates without assistive devices. Reportedly he lost his balance yesterday stumbled fell fracturing his left hip. He does take Plavix. [facility] Medical History Dementia Stroke/cerebrovascular accident Cognitive impairment Syncope Hyponatremia Altered mental status Essential (primary) hypertension Internal hemorrhoids Diverticulosis Celiac disease Carotid stenosis, bilateral BPH (benign prostatic hyperplasia) Hyperlipidemia Non-smoker AAA (abdominal aortic aneurysm) Hypertension Stroke/cerebrovascular accident Home Medications ?Medication ?Instructions ?Recorded ?Last Taken ?Type lorazepam 0.5 mg tablet 0.5 mg PO TID PRN anxiety #6 tabs 05/14/24 Unknown Rx amlodipine 5 mg tablet 5 mg PO DAILY HYPERTENSION 07/10/24 Unknown History clopidogrel 75 mg tablet 75 mg PO DAILY ANTIPLATELET 07/10/24 Unknown History tamsulosin 0.4 mg capsule 0.4 mg PO DAILY BPH 07/10/24 Unknown History Allergy/AdvReac Type Severity Reaction Status Date / Time Food Allergies: Uncoded AdvReac Intermediate Other Verified 07/10/24 14:10 Family History Father CVA (cerebral vascular accident) Sister Lupus (systemic lupus erythematosus) Brother Diabetes Brother Diabetes Surgical History History of excision of lesion History of excision of lesion H/O abdominal aortic aneurysm repair Social History household members: spouse housing: other details: Private one-story home with no steps. 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 pets and animals: Yes Smoking Status: Never smoker alcohol intake: never substance use type: does not use ROS ROS Narrative Patient and his family denies any recent changes to eyes ears nose or throat heart or lungs bowel or bladder. He does have a history of a previous stroke affecting his left side. Vital Signs Vital Signs Vital Signs: 07/10/24 16:06 07/10/24 16:10 07/10/24 19:01 Temperature 97.4 F L 98.4 F Temperature Source Oral Pulse Rate 85 84 88 Pulse Strength Respiratory Rate 16 21 H 16 Respiratory Effort Respiratory Depth Respiratory Pattern Blood Pressure 142/65 H 147/66 H 144/78 H Blood Pressure Mean 90 93 100 Blood Pressure Source Monitor Blood Pressure Position Supine Blood Pressure Location Right Arm Pulse Ox 96 96 94 Oxygen Delivery Method Room Air Room Air Oxygen Flow Rate (L/min) 07/10/24 21:43 07/10/24 22:00 07/11/24 05:23 Temperature 98.4 F 98 F Temperature Source Temporal Oral Pulse Rate 87 85 Pulse Strength Respiratory Rate 16 17 Respiratory Effort Respiratory Depth Respiratory Pattern Blood Pressure 155/90 H 144/78 H Blood Pressure Mean 111 100 Blood Pressure Source Monitor Monitor Blood Pressure Position Supine Semi-Fowlers Blood Pressure Location Right Arm Left Arm Pulse Ox 95 97 Oxygen Delivery Method Room Air Room Air Room Air Oxygen Flow Rate (L/min) 07/11/24 08:06 07/11/24 09:30 07/11/24 09:37 Temperature 98.6 F Temperature Source Oral Pulse Rate 74 Pulse Strength Respiratory Rate 14 Respiratory Effort Normal Non-Labored Respiratory Depth Normal Respiratory Pattern Normal Blood Pressure 134/77 H Blood Pressure Mean 96 Blood Pressure Source Monitor Blood Pressure Position Semi-Fowlers Blood Pressure Location Left Arm Pulse Ox 95 97 Oxygen Delivery Method Room Air Nasal Cannula Nasal Cannula Oxygen Flow Rate (L/min) 2 2 07/11/24 12:07 07/11/24 12:16 07/11/24 14:39 Temperature 99.1 F 99.1 F Temperature Source Oral Pulse Rate 67 67 Pulse Strength Normal (2+) Respiratory Rate 12 12 Respiratory Effort Respiratory Depth Respiratory Pattern Blood Pressure 134/67 H 134/67 H Blood Pressure Mean 89 Blood Pressure Source Monitor Blood Pressure Position Supine Blood Pressure Location Left Arm Pulse Ox 98 98 Oxygen Delivery Method Nasal Cannula Room Air Oxygen Flow Rate (L/min) 2 2 Weight Weight: 64.41 kg Body Mass Index (BMI) 20.9 Physical Exam Narrative Patient is lying in bed. There is no significant deformity of the left hip. He has pain on palpation about the left hip. Left hip was not stressed. Patient does answer some questions appropriately. Seen with his and daughter present. Patient had no pain at the right hip. No right hip pain with rotation or flexion. CHANTAL hose and SCDs on. No calf pain. He can gently flex and extend the toes and ankles. X-rays AP pelvis AP and lateral of left hip shows a left hip not significantly displaced intertrochanteric fracture. Lab / Micro Data Attestation: I reviewed the patient's lab results. 07/11/24 06:15 07/11/24 06:15 Labs: Laboratory Results - last 24 hr 07/10/24 14:35: WBC 10.1, RBC 4.62, Hgb 14.1, Hct 42.8, MCV 92.6, MCH 30.5, MCHC 32.9, RDW Std Deviation 48.4 H, RDW Coeff of Chaim 14.3, Plt Count 201, MPV 10.4, Immature Gran % (Auto) 0.300, Neut % (Auto) 74.6 H, Lymph % (Auto) 11.7 L, [place] % (Auto) 10.6 H, Eos % (Auto) 2.4, Baso % (Auto) 0.4, Absolute Neuts (auto) 7.6, Absolute Lymphs (auto) 1.18, Nucleated RBC % 0, Sodium 139, Potassium 4.1, Chloride 104, Carbon Dioxide 30.0, Anion Gap 5, BUN 22 H, Creatinine 1.25, Estim Creat Clear Calc 41.63, Est GFR (MDRD) Af Amer 70, Est GFR (MDRD) Non-Af 58 L, BUN/Creatinine Ratio 17.6, Glucose 111 H, Calcium 9.5, Blood Type A POSITIVE, Antibody Screen NEGATIVE 07/10/24 22:47: Sodium 138, Potassium 3.8, Chloride 106, Carbon Dioxide 27.0, Anion Gap 6, BUN 20 H, Creatinine 1.21, Estim Creat Clear Calc 39.18, Est GFR (MDRD) Af Amer 73, Est GFR (MDRD) Non-Af 60, BUN/Creatinine Ratio 16.5, Glucose 167 H, Calcium 9.2, Total Bilirubin 1.10 H, AST 12 L, ALT 17, Alkaline Phosphatase 78, Total Protein 6.9, Albumin 3.2, Globulin 3.7, Albumin/Globulin Ratio 0.9 07/11/24 06:15: WBC 6.4, RBC 3.98 L, Hgb 12.3 L, Hct 36.8 L, MCV 92.5, MCH 30.9, MCHC 33.4, RDW Std Deviation 47.8 H, RDW Coeff of Chaim 14.1, Plt Count 183, MPV 10.6, Immature Gran % (Auto) 0.300, Neut % (Auto) 65.8, Lymph % (Auto) 18.9 L, M colton % (Auto) 12.6 H, Eos % (Auto) 1.9, Baso % (Auto) 0.5, Absolute Neuts (auto) 4.2, Absolute Lymphs (auto) 1.22, Nucleated RBC % 0, PT 13.9, INR 1.1, APTT 31.8, Sodium 136, Potassium 4.0, Chloride 106, Carbon Dioxide 27.0, Anion Gap 4 L, BUN 22 H, Creatinine 1.15, Estim Creat Clear Calc 41.23, Est GFR (MDRD) Af Amer 77, Est GFR (MDRD) Non-Af 64, BUN/Creatinine Ratio 19.1, Glucose 122 H, Calcium 8.8, Total Bilirubin 1.20 H, AST 11 L, ALT 14 L, Alkaline Phosphatase 70, Total Protein 6.2 L, Albumin 2.9 L, Globulin 3.3, Albumin/Globulin Ratio 0.9 Imaging Radiology Impression Chest X-Ray 07/10/24 15:25 IMPRESSION: No radiographic evidence of acute cardiopulmonary disease. Electronically Signed: Ho Dawkins MD at 15:53 EDT Reading Location ID and State: [facility] / [place] Tel , Service support , Hip/Pelvis X-Ray 07/10/24 15:25 IMPRESSION: Nondisplaced intertrochanteric fracture left femur. Electronically Signed: Ho Dawkins MD at 15:51 EDT Reading Location ID and State: [facility] / [place] Tel , Service support , Assessment & Plan Assessment/Plan (1) Closed intertrochanteric fracture of left hip: QUALIFIERS: Encounter type: initial encounter Fracture alignment: nondisplaced Qualified Code(s): S72.145A - Nondisplaced intertrochanteric fracture of left femur, initial encounter for closed fracture PLAN: His diagnosis and treatment options regarding his left hip fracture discussed with him and his family at length. Surgery was recommended to stabilize the fracture and help with pain and healing. Risk of surgery including but not limited to from operative or postoperative complications. Risk of anesthetic complications such as heart attacks, strokes, seizures, or . Risk of infections. Risk of damage to nerves arteries tendons. Risk of inadvertent fractures or dislocations. Risk of bone or wound healing complications. Possibility of nonunion malunion pain stiffness weakness. Possible need for further surgery such as hardware removal. Risk of DVT PE and other potential complications could lead to or disability explained. No guarantees were stated or implied. All of their questions were answered. Appropriate informed consent was obtained and signed for surgical intervention. Patient has been evaluated by the hospitalist service as well as the anesthesia team. He was deemed to be an acceptable risk for surgery. We will plan to resume Plavix postoperatively. Also will recommend aspirin for DVT prevention. He will continue on the medical service. From an orthopedic standpoint he can be discharged to home or ECF when determined medically stable. We will plan to use Ancef for pre and postoperative antibiotic.
[2024-07-11] MEDS: Cefazolin 2 GM in Syringe IV (14:51)
--- NOTE | 2024-07-11 15:53 | PCM.OP.BLANK ---
Problems Associated Problem List Diagnoses (1) Closed intertrochanteric fracture of left hip: Operative Report Date of Procedure: 07/11/24 Preoperative diagnosis: Left hip intertrochanteric fracture Postoperative diagnosis: Same Title of operation: Left hip open reduction internal fixation, intramedullary nail fixation, locked Surgeon: Dr. Nicko Baldwin Php Website Developer: Thais Landa Anesthesia: General Dr Crawford Medications: Ancef 2gm Indications for surgery: Patient is an 89-year-old male sustained a hip fracture yesterday. Patient and their family explained diagnosis and treatment options. Patient evaluated by the medical services. Patient did wish to have surgery. Appropriate informed consent obtained and signed. Findings: Patient had a nondisplaced intertrochanteric hip fracture. They underwent standard reduction, internal fixation using a Tawana short gamma nail. X-rays taken throughout. dietary assistant, BALDEV student was utilized throughout the entire procedure. They were vital to the procedure from beginning to end. They help with patient transfer, patient padding and positioning, fracture reduction, maintenance of fracture reduction, internal fixation of implants, wound closure, bandage application, patient transfer. Without surgical consultant, surgical time would have been significantly increased and surgical outcome could have been less optimal. Procedure: Patient was taken to the operating room. Placed under a general anesthetic and transferred to the operating table with the help of the periodicals library assistant. With the help of the periodicals library assistant patient was prepped and padded for surgery. Operative side foot was well-padded and placed in the traction boot. Uninjured lower extremity was adducted padded and attached to the fracture table out of harms way. CHANTAL hose and SCDs utilized. Fluoroscopy was brought in. With the help of the periodicals library assistant and manipulation of the limb, reduction was nicely obtained as verified under AP lateral and oblique fluoroscopic images. . Operative hip/thigh was prepped padded draped in usual orthopedic sterile fashion for the procedure. Longitudinal incision was made just proximal to the greater trochanter. Taken through skin and subcutaneous tissue. Sharp awl was placed on the tip of the greater trochanter. Position verified under AP and lateral fluoroscopic images. This was then taken down inside the bone. Slightly bent ball-tipped guide arsen was then placed from the tip of the greater trochanter into the intra-medullary canal of the femur. Its position verified radiographically. Reamer was then done over the tip of this with the help of the periodicals library assistant holding the soft tissue protector appropriately. Once reaming was done we placed the short 125? angle device over the guidepin. This was easily introduced. Guide arsen removed. Outrigger device was utilized to position a guidepin from the lateral cortex of the femur across the fracture site and into the femoral head in a good position centrally, as noted on AP lateral and oblique fluoroscopic images. This was measured. Appropriate reaming done. Appreciate length lag screw was placed from the lateral cortex of the femur into the femoral head. A small amount of the screw was noted to be protruding laterally as planned. No cartilage penetration of the femoral head noted on any x-ray. Fracture was then compressed with the outrigger device. Proximal cap screw was placed by the periodicals library assistant seated down completely, confirmed, and then loosened one fourth turn. We then used the outrigger device to place distal cross locking screw under standard technique. This was confirmed to be of adequate length in good position on AP and lateral images. Outrigger device removed. Final set of AP and lateral proximal x-rays taken and saved. Incisions thoroughly irrigated. Closing by the periodicals library assistant with deep 0 Vicryl, mid layer 0 Vicryl, inverted 2-0 Vicryl, skin aura. Puncture wounds closed with inverted 2-0 Vicryl and aura. Xeroform 4 x 4's ABD tape applied. Patient was awoken from their anesthetic, transferred back to their own bed with the help of the periodicals library assistant and into recovery room in satisfactory condition. Patient will continue to be admitted to the hospital under the hospitalist service. This note was generated with [employer] dictation software. It may contain incorrect words, spelling, and punctuation that were not noted in checking the note before signing.
--- NOTE | 2024-07-11 16:25 | PCM.POST.ANE ---
Anesthesia: Postop Eval I Current Vital Signs Temperature: 98.1 F Pulse Rate: 93 Blood Pressure: 154/71 Respiratory Rate: 16 Pulse Ox: 92 Oxygen Delivery Method: Nasal Cannula Assessment Airway patent: Yes Spontaneous unlabored respirations: Yes Mental status: Awake and Calm nausea: No Vomiting: No Anesthesia Complication: No Fluid Hydration Crystalloid volume administer (ml): 400 Total IV fluid infused: 400 Progress Note Anesthesia document: Postop Eval 1 completed: Yes
--- NOTE | 2024-07-11 16:48 | POSTOPAN2_ITS ---
Anesthesia Postop Eval I Sum Postop Eval Completion status Anesthesia document: Postop Eval 1 completed: Yes Anesthesia Postop Eval I Summary Anesthesia Postop Eval I Summary: Anesthesia Postop Eval I: Assessment Summary Airway patent Yes 07/11/24 16:26 PROFESSOR [email or web address] Spontaneous unlabored Yes 07/11/24 16:26 PROFESSOR COMPUTER [email or web address].MDOT respirations Mental status Awake,Calm 07/11/24 16:26 PROFESSOR [email or web address].MDOT nausea No 07/11/24 16:26 PROFESSOR COMPUTER [email or web address].MDOT Vomiting No 07/11/24 16:26 PROFESSOR COMPUTER [email or web address].[email or web address] Anesthesia Postop Eval I: Fluid Summary Crystalloid volume administer 400 07/11/24 16:26 PROFESSOR COMPUTER [email or web address].MDOT (ml) Colloids volume administered ( ml) Blood Product volume administered (ml) Total IV fluid infused 400 07/11/24 16:26 PROFESSOR COMPUTER [email or web address].MDOT Anesthesia Postop Eval I: Summary Notes Anesthesia Complication No 07/11/24 16:26 PROFESSOR [email or web address] Anesthesia Complication Comment: Post-operative progress note Anesthesia: Postop Eval II Evaluation Mental status: Awake Pain Level: 0 nausea: No Vomiting: No
--- NOTE | 2024-07-11 16:48 | PCM.POSTANE2 ---
Anesthesia Postop Eval I Sum Postop Eval Completion status Anesthesia document: Postop Eval 1 completed: Yes Anesthesia Postop Eval I Summary Anesthesia Postop Eval I Summary: Anesthesia Postop Eval I: Assessment Summary Airway patent Yes 07/11/24 16:26 AERIAL [email or web address] Spontaneous unlabored Yes 07/11/24 16:26 AERIAL ADVERTISER.MDOT respirations Mental status Awake,Calm 07/11/24 16:26 AERIAL [email or web address].MDOT nausea No 07/11/24 16:26 AERIAL ADVERTISER.MDOT Vomiting No 07/11/24 16:26 AERIAL ADVERTISER.MDOT Anesthesia Postop Eval I: Fluid Summary Crystalloid volume administer 400 07/11/24 16:26 AERIAL ADVERTISER.MDOT (ml) Colloids volume administered ( ml) Blood Product volume administered (ml) Total IV fluid infused 400 07/11/24 16:26 AERIAL [email or web address].MDOT Anesthesia Postop Eval I: Summary Notes Anesthesia Complication No 07/11/24 16:26 AERIAL ADVERTISER.MDOT Anesthesia Complication Comment: Post-operative progress note Anesthesia: Postop Eval II Evaluation Mental status: Awake Pain Level: 0 nausea: No Vomiting: No
[2024-07-11] MEDS: Cefazolin 1 GM/50 ML BAG IV (22:50)
[2024-07-11] MEDS: Senna/Docusate Sodium 1 Tablet 2 TABLET PO (22:51)
[2024-07-11] MEDS: Heparin Injection (Vial) 5,000 UNIT/ML VIAL 5000 UNIT SC (22:51)
[2024-07-11] MEDS: Acetaminophen 500 MG Tablet 1000 MG PO (22:52)
[2024-07-11] MEDS: Aspirin 81 MG TAB.CHEW PO (22:52)
[2024-07-11] MEDS: Ensure Plus High Protein 120 ML LIQUID PO (22:52)
[2024-07-12] VITALS (7 sets, daily range): BP systolic 121–142; BP diastolic 59–77; PULSE 76–100; RESP 16–18; TEMP 36.5–37; O2SAT 94–96; BMI 23.1
[2024-07-12] MEDS: Acetaminophen 500 MG Tablet 1000 MG PO ×3 (06:14→20:28)
[2024-07-12] MEDS: Cefazolin 1 GM/50 ML BAG IV (06:14)
[2024-07-12 06:43] LABS: Hematocrit 31.7 % (40-54); Hemoglobin 10.3 g/dL (13.0-16.5); Mean Corp Hgb Conc 32.5 g/dL (32-36); Mean Corpuscular Volume 95.5 fL (80-94); Mean Platelet Vol. 10.7 fl (6.2-12.0); Platelet Count 151 K/mm3 (150-450); RBC Distribution Width CV 14.2 % (11.6-14.6); RBC Distribution Width SD 49.4 fl (35.1-43.9); Red Blood Count 3.32 M/mm3 (4.6-6.2); White Blood Count 6.6 K/mm3 (4.4-11.0)
[2024-07-12 07:20] LABS: Anion Gap 6 (5-15); BUN 24 mg/dL (7-18); BUN/Creat Ratio 17.3 RATIO (10-20); Calcium,Total 8.4 mg/dL (8.5-10.1); Chloride 105 mmol/L (98-107); Creatinine, Serum 1.39 mg/dL (0.70-1.30); EST Glomerular Filtration Rate 51 mL/min (>60); Est Glom Filt Rate - Afr Amer 62 mL/min (>60); Estimated Creatinine Clearance 37.44 ml/min; Glucose 183 mg/dL (74-106); Potassium 3.9 mmol/L (3.5-5.1); Sodium Level 137 mmol/L (136-145)
[2024-07-12] MEDS: Aspirin 81 MG TAB.CHEW PO ×2 (11:02→20:29)
[2024-07-12] MEDS: Heparin Injection (Vial) 5,000 UNIT/ML VIAL 5000 UNIT SC ×2 (11:04→20:29)
[2024-07-12] MEDS: Ensure Plus High Protein 120 ML LIQUID PO (11:04)
[2024-07-12] MEDS: Senna/Docusate Sodium 1 Tablet 2 TABLET PO ×2 (11:05→20:29)
[2024-07-12] MEDS: Clopidogrel Bisulfate 75 MG Tablet PO (11:05)
--- NOTE | 2024-07-12 11:15 | NURSING ---
Addendum entered by Nataliia Bean 07/12/24 13:25: heart rate creeping up into the 100s, blood pressure within parameter to give amlodipine, amlodipine was previously held but dose was accidentally opened and disposed of, will obtain new dose from [employer] to give at this time. Original Note: Pt BP was too low to give amlodipine, I opened a package by accident when pulling it out of the [employer] machine. Disposed of open package and pill in med room disposal bin. Documented against the amlodipine on the NOV.
--- NOTE | 2024-07-12 12:14 | PN_ITS ---
Subjective Subjective Patient seen and examined. He is POD 1 for left hip open reduction and internal fixation with intramedullary nail fixation. He feels well and has no other complaints. Pain is well controlled. Review of systems is otherwise negative. Objective Data Objective Data Vital Signs: Vital Signs Temp Pulse Resp BP Pulse Ox O2 Del Method O2 Flow Rate 97.9 F 95 16 129/67 H 94 Room Air 2 07/12/24 10:49 07/12/24 10:49 07/12/24 10:49 07/12/24 10:49 07/12/24 10:59 07/12/24 10:49 07/11/24 21:40 Oxygen Flow Rate (L/min) 2 Oxygen Delivery Method Room Air Weight: 156 lb 8.451 oz Body Mass Index (BMI) 23.1 Intake & Output: Intake and Output for Last 24 Hours 07/10/24 07/11/24 07/12/24 23:59 23:59 23:59 Intake Total 875 / 875 50 / 50 Output Total 950 / 950 Balance -75 / -75 50 / 50 Lab / Micro Data 07/12/24 06:35 07/12/24 06:35 Labs: Laboratory Results - last 24 hr 07/12/24 06:35: WBC 6.6, RBC 3.32 L, Hgb 10.3 L, Hct 31.7 L, MCV 95.5 H, MCH 31.0, MCHC 32.5, RDW Std Deviation 49.4 H, RDW Coeff of Chaim 14.2, Plt Count 151, MPV 10.7, Sodium 137, Potassium 3.9, Chloride 105, Carbon Dioxide 26.0, Anion Gap 6, BUN 24 H, Creatinine 1.39 H, Estim Creat Clear Calc 37.44, Est GFR (MDRD) Af Amer 62, Est GFR (MDRD) Non-Af 51 L, BUN/Creatinine Ratio 17.3, Glucose 183 H , Calcium 8.4 L Radiography Diagnostic Testing: Radiology Impression Hip X-Ray 07/11/24 14:48 IMPRESSION: undefined Physical Exam Const alert, oriented x3 and no apparent distress Constitutional Narrative: Very frail and weak HEENT normocephalic, head/scalp atraumatic, moist oral mucous membranes and oropharynx normal Eyes PERRL and EOMs intact bilaterally Neck no lymphadenopathy and supple Lymph Lymphatic: no lymphadenopathy noted and no lymphedema noted Resp normal respiratory effort, normal air movement and clear to auscultation bilaterally Resp Narrative: On 2 L of oxygen by nasal cannula. Cardio regular rate, regular rhythm, S1 normal heart sound, S2 normal heart sound and no murmurs Peripheral Pulses: pulses 2+ throughout GI normal to inspection, nondistended, normoactive bowel sounds, soft to palpation, non-tender and non-distended Extremity Extremity Narrative: intact dressing over left hip at surgical site. Skin Skin Narrative: as under extremities Neuro CN's II-XII intact bilaterally and no sensory deficits noted Motor Exam: general weakness Psych thought process normal and cooperative Appearance: appropriate Assessment & Plan Assessment/Plan (1) Closed intertrochanteric fracture of left hip: QUALIFIERS: Encounter type: initial encounter Fracture alignment: nondisplaced Qualified Code(s): S72.145A - Nondisplaced intertrochanteric fracture of left femur, initial encounter for closed fracture (2) Injury due to fall: PLAN: Plan #Debility and weakness due to left intertrochanteric fracture from mechanical fall * s/p left hip ORIF with intramedullary nail fixation. today is POD 1. * on PO tylenol, oxycodone and IV morphine prn * PT/OT on board. Fall precautions * incentive spirometry #History of CVA with residual right upper extremity weakness * On Plavix and statin. Plavix currently on hold due to surgery. PT OT on board. Fall precautions. * plavix resumed. * #Elevated creatinine: Creatinine is 1.39. Was 1.15 yesterday. Hydrate gently with IV fluids and trend. #BPH with obstructive symptoms: On Flomax #Vascular dementia with superimposed anxiety: On Ativan as needed #Hypertension: Amlodipine. IV hydralazine as needed #Chronic abdominal aortic aneurysm: Stable DVT prophylaxis: on aspirin 81mg bid per orthopedics CODE STATUS: DNR CCA no intubation] Disposition: will benefit from placement. Case management on baord Charges/Coding Visit Charges Inpatient E&M: 95859 Subs Hosp L2
--- NOTE | 2024-07-12 12:15 | PN.ORTHO_ITS ---
Subjective Subjective Patient is s/p left hip open reduction trial fixation with intramedullary nail with Dr. Baldwin 07/11/2024. Patient resting comfortably in bed. Rates pain 2/ 10 at rest. With movement 2 /10. States taking Tylenol and oxycodone as needed and ice help to relieve pain. Patient has been up with therapy. Walking with the assit of a walker. Afebrile, no chest pain, shortness of breath, negative calf pain/ erythema, and no other signs of DVT. Objective Data Objective Data Vital Signs: Vital Signs Temp Pulse Resp BP Pulse Ox O2 Del Method O2 Flow Rate 97.9 F 95 16 129/67 H 94 Room Air 2 07/12/24 10:49 07/12/24 10:49 07/12/24 10:49 07/12/24 10:49 07/12/24 10:59 07/12/24 10:49 07/11/24 21:40 Oxygen Flow Rate (L/min) 2 Oxygen Delivery Method Room Air Weight: 71 kg Body Mass Index (BMI) 23.1 Intake & Output: Intake and Output for Last 24 Hours 07/10/24 07/11/24 07/12/24 23:59 23:59 23:59 Intake Total 875 / 875 50 / 50 Output Total 950 / 950 Balance -75 / -75 50 / 50 Lab / Micro Data 07/12/24 06:35 07/12/24 06:35 Labs: Laboratory Results - last 24 hr 07/12/24 06:35: WBC 6.6, RBC 3.32 L, Hgb 10.3 L, Hct 31.7 L, MCV 95.5 H, MCH 31.0, MCHC 32.5, RDW Std Deviation 49.4 H, RDW Coeff of Chaim 14.2, Plt Count 151, MPV 10.7, Sodium 137, Potassium 3.9, Chloride 105, Carbon Dioxide 26.0, Anion Gap 6, BUN 24 H, Creatinine 1.39 H, Estim Creat Clear Calc 37.44, Est GFR (MDRD) Af Amer 62, Est GFR (MDRD) Non-Af 51 L, BUN/Creatinine Ratio 17.3, Glucose 183 H , Calcium 8.4 L Radiography Diagnostic Testing: Radiology Impression Hip X-Ray 07/11/24 14:48 IMPRESSION: undefined Physical Exam Narrative Patient resting comfortably in bed No signs of acute distress Satting well on room air Limb is warm to touch, Sensation intact throughout entire lower extremity, including saphenous, sural, superficial and deep peroneal, and tibial distribution. DP/PT pulses bounding. Dorsiflexion plantarflexion strength 5/5 Dressing clear dry intact Calf nontender to palpation, no erythema, no edema. Negative Homans Assessment & Plan Assessment/Plan (1) Closed intertrochanteric fracture of left hip: QUALIFIERS: Encounter type: initial encounter Fracture alignment: nondisplaced Qualified Code(s): S72.145A - Nondisplaced intertrochanteric fracture of left femur, initial encounter for closed fracture PLAN: Plan 1. Will continue PT today. Weightbearing as tolerated 2. plan for discharge per primary 3. Patient will follow up for post op appointment on in 2 weeks in our office with x-rays this will need to be arranged 4. WBC 6.6 no acute reactive leukocytosis 5. H/H 10.3/31.7: post operavtive anemia secondary to acute blood loss intraoperatively. Patient is asymptomatic at this time. No intraoperative complications. will continue to monitor. no acute interventions. 6. DVT prophylaxis : Resume Plavix. and Aspirin 81 mg twice daily x 4 weeks 7. Pain control: patient instructed to take tylenol 500mg 2 tablets TID. and oxycodone 1-2 tablets every 4-6 hours only as needed for pain control. 8. ok to remove post op dressing. post op day 5 9. Patient is orthopedically stable okay for discharge from orthopedic standpoint when ready. 10. Orthopedics to sign off at this point time.
[2024-07-12] MEDS: 0.9% Normal Saline (1000mL) 1,000 ML 75 ML IV (13:17)
[2024-07-12] MEDS: amLODIPine 5 MG Tablet PO (13:32)
--- NOTE | 2024-07-12 14:51 | CASEMGMT ---
Social Work A list of?SNF?providers including quality and resource use data and consistent with the patient's preferred geographic region, medical needs, and insurance network was created in [facility] Guide.? This list was provided to the daughter and . First choice was TCU, however they are unable to accept patient. Daughter and to review list and give SW alternative choices. Tara Valenzuela, BREAKDOWN WORKER, BRAIDER SETTER
--- NOTE | 2024-07-12 15:05 | NURSING ---
Pt voided on commode before straight cath was inserted, unable to measure exact output but post void scan revealed 247mL left in the bladder.
--- NOTE | 2024-07-12 15:22 | CASEMGMT ---
Social Work Daughter and would like a referral sent to [facility]. corporate event planner land surveyor assistant, Diana, to send referral. Tara Valenzuela, MEDICAL BILLER/CODER, COSTUMER ASSISTANT
--- NOTE | 2024-07-12 15:36 | CASEMGMT ---
Discharge Planning Referral sent to [facility] via [facility]. FATOU Alegria.
--- NOTE | 2024-07-12 15:40 | NS ---
Pt's wanted to talk about pt's allergens. RD reviewed list of pt's food allergens with . RD gave allergen list to dietary staff.
[2024-07-12] MEDS: Tamsulosin HCl 0.4 MG Capsule PO (17:15)
[2024-07-13 03:32] VITALS: BP 141/62; PULSE 76; RESP 18; TEMP 36.5; O2SAT 100
[2024-07-13 05:57] VITALS: BMI 23.8
[2024-07-13] MEDS: Acetaminophen 500 MG Tablet 1000 MG PO ×3 (05:59→21:02)
[2024-07-13 06:42] LABS: Hematocrit 30.8 % (40-54); Mean Corp Hgb Conc 32.5 g/dL (32-36); Mean Corpuscular Hgb 30.5 pg (27.0-32.0); Mean Corpuscular Volume 93.9 fL (80-94); Platelet Count 163 K/mm3 (150-450); RBC Distribution Width SD 48.2 fl (35.1-43.9); Red Blood Count 3.28 M/mm3 (4.6-6.2); White Blood Count 7.6 K/mm3 (4.4-11.0)
[2024-07-13 06:43] LABS: Anion Gap 4 (5-15); BUN 28 mg/dL (7-18); BUN/Creat Ratio 21.5 RATIO (10-20); Calcium,Total 8.5 mg/dL (8.5-10.1); Chloride 106 mmol/L (98-107); EST Glomerular Filtration Rate 55 mL/min (>60); Est Glom Filt Rate - Afr Amer 67 mL/min (>60); Estimated Creatinine Clearance 40.03 ml/min; Glucose 133 mg/dL (74-106); Potassium 3.8 mmol/L (3.5-5.1); Sodium Level 136 mmol/L (136-145)
[2024-07-13 07:30] VITALS: O2SAT 95
[2024-07-13 07:37] VITALS: BP 143/68; PULSE 82; RESP 18; TEMP 37.1; O2SAT 98
[2024-07-13] MEDS: LORazepam 0.5 MG Tablet PO ×2 (07:55→13:54)
[2024-07-13] MEDS: oxyCODONE 5 MG Tablet PO ×3 (07:55→18:15)
[2024-07-13] MEDS: Aspirin 81 MG TAB.CHEW PO ×2 (07:56→21:02)
[2024-07-13] MEDS: Heparin Injection (Vial) 5,000 UNIT/ML VIAL 5000 UNIT SC (07:57)
[2024-07-13] MEDS: amLODIPine 5 MG Tablet PO (07:57)
[2024-07-13] MEDS: Clopidogrel Bisulfate 75 MG Tablet PO (07:58)
--- NOTE | 2024-07-13 11:14 | CASEMGMT ---
Pt dtr requests update regarding SNF status. RN KRISTIE spoke with her outside of room and made aware a referral was sent to the [facility] and the referral is pending. She is aware that pt will also need precert once accepted and pt will be here at the hospital through the weekend. Pt dtr with other clinical care questions that pt nurse answered.
--- NOTE | 2024-07-13 13:26 | PN_ITS ---
Subjective Subjective Patient seen and examined. He was lying in bed mumbling incoherently. Unable to do review of systems due to patient's confusion. He has remained hemodynamically stable. Objective Data Objective Data Vital Signs: Vital Signs Temp Pulse Resp BP Pulse Ox O2 Del Method O2 Flow Rate 98.7 F 82 18 143/68 H 98 Room Air 2 07/13/24 07:37 07/13/24 07:37 07/13/24 07:37 07/13/24 07:37 07/13/24 07:37 07/13/24 07:37 07/11/24 21:40 Oxygen Flow Rate (L/min) 2 Oxygen Delivery Method Room Air Weight: 161 lb 2.526 oz Body Mass Index (BMI) 23.8 Intake & Output: Intake and Output for Last 24 Hours 07/11/24 07/12/24 07/13/24 23:59 23:59 23:59 Intake Total 875 / 875 1050 / 1050 1000 / 1000 Output Total 950 / 950 Balance -75 / -75 1050 / 1050 1000 / 1000 Lab / Micro Data 07/13/24 05:55 07/13/24 05:55 Labs: Laboratory Results - last 24 hr 07/13/24 05:55: WBC 7.6, RBC 3.28 L, Hgb 10.0 L, Hct 30.8 L, MCV 93.9, MCH 30.5, MCHC 32.5, RDW Std Deviation 48.2 H, RDW Coeff of Chaim 14.0, Plt Count 163, MPV 11.0, Sodium 136, Potassium 3.8, Chloride 106, Carbon Dioxide 26.0, Anion Gap 4 L, BUN 28 H, Creatinine 1.30, Estim Creat Clear Calc 40.03, Est GFR (MDRD) Af Amer 67, Est GFR (MDRD) Non-Af 55 L, BUN/Creatinine Ratio 21.5 H, Glucose 133 H, Calcium 8.5 Physical Exam Const alert Constitutional Narrative: Very frail and weak Orientation / Consciousness: confused HEENT normocephalic, head/scalp atraumatic, moist oral mucous membranes and oropharynx normal Eyes PERRL and EOMs intact bilaterally Neck no lymphadenopathy and supple Lymph Lymphatic: no lymphadenopathy noted and no lymphedema noted Resp normal respiratory effort, normal air movement and clear to auscultation bilaterally Resp Narrative: on room air. Cardio regular rate, regular rhythm, S1 normal heart sound, S2 normal heart sound and no murmurs Peripheral Pulses: pulses 2+ throughout GI normal to inspection, nondistended, normoactive bowel sounds, soft to palpation, non-tender and non-distended Extremity Extremity Narrative: intact dressing over left hip at surgical site. Skin Skin Narrative: as under extremities General Skin Exam: no breakdown Neuro CN's II-XII intact bilaterally and no sensory deficits noted Motor Exam: general weakness Psych Psych Narrative: confused Assessment & Plan Assessment/Plan (1) Closed intertrochanteric fracture of left hip: QUALIFIERS: Encounter type: initial encounter Fracture alignment: nondisplaced Qualified Code(s): S72.145A - Nondisplaced intertrochanteric fracture of left femur, initial encounter for closed fracture (2) Injury due to fall: PLAN: Plan #Debility and weakness due to left intertrochanteric fracture from mechanical fall * s/p left hip ORIF with intramedullary nail fixation. today is POD 1. * on PO tylenol, oxycodone and IV morphine prn * PT/OT on board. Fall precautions * incentive spirometry #History of CVA with residual right upper extremity weakness * On Plavix and statin. Plavix currently on hold due to surgery. PT OT on board. Fall precautions. * plavix resumed. * * #Elevated creatinine: resolving. Cr is down to 1.3 today #BPH with obstructive symptoms: On Flomax #Vascular dementia with superimposed anxiety: * On Ativan as needed. Patient quite confused today. * He does have such episodic confusion. * Will monitor. #Hypertension: Amlodipine. IV hydralazine as needed #Chronic abdominal aortic aneurysm: Stable DVT prophylaxis: on aspirin 81mg bid per orthopedics CODE STATUS: DNR CCA no intubation Disposition: awaiting placement. Case management on board. Charges/Coding Visit Charges Inpatient E&M: 32301 Subs Hosp L2
[2024-07-13] MEDS: Menthol/Lanolin/Calamine/Znox 113 GM Tube 1 APPLIC TOPICAL (13:56)
[2024-07-13 14:00] VITALS: BP 140/62; PULSE 86; RESP 18; TEMP 36.9; O2SAT 98
--- NOTE | 2024-07-13 14:51 | NURSING ---
Pt incont of bowel and bladder. Brief changed, wiliam applied. This nurse, Lindsay, RN, and 2 vault installer in room to assist. in room. Pt premedicated with ativan and oxy per dgt Kesha's request. Pt screamed, cried out, grabbing this nurse and pushing against side rail during care. Hip precautions maintain during care. Family verbalized understanding of need for skin care, was apologetic about pt behavior, and appreciative of staff's care.
[2024-07-13] MEDS: Tamsulosin HCl 0.4 MG Capsule PO (17:22)
[2024-07-13 20:47] VITALS: BP 118/59; PULSE 81; RESP 16; TEMP 37.1; O2SAT 97
--- NOTE | 2024-07-14 00:50 | NURSING ---
Daughter called this nurse requesting update on father, Updated daughter-patient has been sleeping/drowsy- did not wake up during assessment, vitals stable. Daughter proceeded to tell this nurse to medicate patient with Ativan in the morning- states that he has been having panic attacks due to not having his medication. This nurse expressed to daughter that medication will be given based off current assessment and presenting level of drowsiness in morning. Daughter verbalized understanding.
[2024-07-14 04:08] VITALS: BMI 23.8
[2024-07-14] MEDS: Acetaminophen 500 MG Tablet 1000 MG PO ×3 (05:12→22:26)
[2024-07-14 05:14] VITALS: BP 119/59; PULSE 71; RESP 18; TEMP 36.5; O2SAT 98
[2024-07-14 06:33] LABS: Hemoglobin 8.7 g/dL (13.0-16.5); Mean Corp Hgb Conc 32.2 g/dL (32-36); Mean Corpuscular Hgb 30.2 pg (27.0-32.0); Mean Corpuscular Volume 93.8 fL (80-94); Mean Platelet Vol. 11.1 fl (6.2-12.0); Platelet Count 169 K/mm3 (150-450); RBC Distribution Width CV 14.1 % (11.6-14.6); RBC Distribution Width SD 48.6 fl (35.1-43.9); Red Blood Count 2.88 M/mm3 (4.6-6.2); White Blood Count 5.3 K/mm3 (4.4-11.0)
[2024-07-14 06:57] LABS: Anion Gap 4 (5-15); BUN 29 mg/dL (7-18); BUN/Creat Ratio 22.8 RATIO (10-20); Calcium,Total 8.3 mg/dL (8.5-10.1); Chloride 107 mmol/L (98-107); Creatinine, Serum 1.27 mg/dL (0.70-1.30); EST Glomerular Filtration Rate 57 mL/min (>60); Est Glom Filt Rate - Afr Amer 69 mL/min (>60); Estimated Creatinine Clearance 40.98 ml/min; Glucose 101 mg/dL (74-106); Potassium 4.1 mmol/L (3.5-5.1); Sodium Level 136 mmol/L (136-145)
[2024-07-14 08:12] VITALS: O2SAT 96
[2024-07-14 08:21] VITALS: BP 117/54; PULSE 62; RESP 16; TEMP 36.8; O2SAT 96
[2024-07-14] MEDS: Clopidogrel Bisulfate 75 MG Tablet PO (08:30)
[2024-07-14] MEDS: Senna/Docusate Sodium 1 Tablet 2 TABLET PO ×2 (08:31→22:26)
[2024-07-14] MEDS: Aspirin 81 MG TAB.CHEW PO ×2 (08:31→22:26)
--- NOTE | 2024-07-14 10:06 | NURSING ---
Returned phone call to [facility] Kesha with update on condition as requested. This nurse reported pt denies pain and not displaying signs of emotional distress. Reassured Kesha staff will continue to monitor emotional status and pain frequently throughout shift and medicate as necessary.
--- NOTE | 2024-07-14 13:46 | PN_ITS ---
Subjective Subjective Patient seen and examined. He had no active complaints. Review of systems otherwise negative. Pain is well-controlled. Objective Data Objective Data Vital Signs: Vital Signs Temp Pulse Resp BP Pulse Ox O2 Del Method O2 Flow Rate 98.2 F 62 16 117/54 L 96 Room Air 2 07/14/24 08:21 07/14/24 08:21 07/14/24 08:21 07/14/24 08:21 07/14/24 08:21 07/14/24 08:21 07/11/24 21:40 Oxygen Flow Rate (L/min) 2 Oxygen Delivery Method Room Air Weight: 161 lb 2.526 oz Body Mass Index (BMI) 23.8 Intake & Output: Intake and Output for Last 24 Hours 07/12/24 07/13/24 07/14/24 23:59 23:59 23:59 Intake Total 1050 / 1050 1240 / 1240 240 / 240 Output Total 500 / 500 300 / 300 Balance 1050 / 1050 740 / 740 -60 / -60 Lab / Micro Data 07/14/24 05:15 07/14/24 05:15 Labs: Laboratory Results - last 24 hr 07/14/24 05:15: WBC 5.3, RBC 2.88 L, Hgb 8.7 L, Hct 27.0 L, MCV 93.8, MCH 30.2, MCHC 32.2, RDW Std Deviation 48.6 H, RDW Coeff of Chaim 14.1, Plt Count 169, MPV 11.1, Sodium 136, Potassium 4.1, Chloride 107, Carbon Dioxide 26.0, Anion Gap 4 L, BUN 29 H, Creatinine 1.27, Estim Creat Clear Calc 40.98, Est GFR (MDRD) Af Amer 69, Est GFR (MDRD) Non-Af 57 L, BUN/Creatinine Ratio 22.8 H, Glucose 101, C alcium 8.3 L Physical Exam Const alert, oriented x3 and no apparent distress Constitutional Narrative: Very frail and weak HEENT normocephalic, head/scalp atraumatic, moist oral mucous membranes and oropharynx normal Eyes PERRL and EOMs intact bilaterally Neck no lymphadenopathy and supple Lymph Lymphatic: no lymphadenopathy noted and no lymphedema noted Resp normal respiratory effort, normal air movement and clear to auscultation bilaterally Resp Narrative: on room air. Cardio regular rate, regular rhythm, S1 normal heart sound, S2 normal heart sound and no murmurs Peripheral Pulses: pulses 2+ throughout GI normal to inspection, nondistended, normoactive bowel sounds, soft to palpation, non-tender and non-distended Extremity Extremity Narrative: intact dressing over left hip at surgical site. Skin Skin Narrative: as under extremities General Skin Exam: no breakdown Neuro CN's II-XII intact bilaterally and no sensory deficits noted Motor Exam: general weakness Psych thought process normal and cooperative Mood & Affect: flat affect Assessment & Plan Assessment/Plan (1) Closed intertrochanteric fracture of left hip: QUALIFIERS: Encounter type: initial encounter Fracture alignment: nondisplaced Qualified Code(s): S72.145A - Nondisplaced intertrochanteric fracture of left femur, initial encounter for closed fracture (2) Injury due to fall: PLAN: Plan #Debility and weakness due to left intertrochanteric fracture from mechanical fall * s/p left hip ORIF with intramedullary nail fixation. today is POD 2. * on PO tylenol, oxycodone and IV morphine prn * PT/OT on board. Fall precautions * incentive spirometry #History of CVA with residual right upper extremity weakness * On Plavix and statin. PT OT on board. Fall precautions. * #Anemia: * Hemoglobin was 8.7 today. Was 10 yesterday. * Baseline is around 11. * When he came in on the 16 was 14.1 but I think this likely from hemoconcentration as his baseline was always been around 11-12. Will monitor closely. * If Hb continues to trend downwards, will transfuse with a bit of packed red blood cells if hemoglobin was stable. * Likely due to acute blood loss from surgery. * #Elevated creatinine: resolving. Cr is down to 1.27 today #BPH with obstructive symptoms: On Flomax #Vascular dementia with superimposed anxiety: * On Ativan as needed. Patient quite confused today. * He does have such episodic confusion. * Will monitor. #Hypertension: Amlodipine. IV hydralazine as needed #Chronic abdominal aortic aneurysm: Stable DVT prophylaxis: on aspirin 81mg bid per orthopedics. CODE STATUS: DNR CCA no intubation Disposition: awaiting placement. Case management on board. Charges/Coding Visit Charges Inpatient E&M: 31357 Subs Hosp L2
[2024-07-14 14:00] VITALS: BP 147/63; PULSE 72; RESP 18; TEMP 36.7; O2SAT 97
[2024-07-14] MEDS: Menthol/Lanolin/Calamine/Znox 113 GM Tube 1 APPLIC TOPICAL ×2 (14:22→22:26)
[2024-07-14] MEDS: Tamsulosin HCl 0.4 MG Capsule PO (17:07)
[2024-07-14 22:34] VITALS: BP 146/70; PULSE 83; RESP 18; TEMP 36.4; O2SAT 99
[2024-07-15] MEDS: Acetaminophen 500 MG Tablet 1000 MG PO ×2 (05:02→13:58)
[2024-07-15 05:10] VITALS: BP 149/78; PULSE 82; RESP 16; TEMP 36.4; O2SAT 97
[2024-07-15 06:00] VITALS: BMI 22.7
[2024-07-15 08:01] LABS: Anion Gap 6 (5-15); BUN 26 mg/dL (7-18); BUN/Creat Ratio 22.8 RATIO (10-20); Calcium,Total 8.8 mg/dL (8.5-10.1); Chloride 106 mmol/L (98-107); Creatinine, Serum 1.14 mg/dL (0.70-1.30); EST Glomerular Filtration Rate 65 mL/min (>60); Est Glom Filt Rate - Afr Amer 78 mL/min (>60); Estimated Creatinine Clearance 44.94 ml/min; Glucose 123 mg/dL (74-106); Sodium Level 138 mmol/L (136-145)
[2024-07-15 08:05] VITALS: BP 156/81; PULSE 81; RESP 16; TEMP 36.5; O2SAT 96
--- NOTE | 2024-07-15 09:23 | CASEMGMT ---
Discharge Planning [facility] has obtained auth to admit. It is good thru the . SW updated. Diana Pandey DC Planning Asst.
[2024-07-15] MEDS: Aspirin 81 MG TAB.CHEW PO (09:54)
[2024-07-15] MEDS: amLODIPine 5 MG Tablet PO (09:54)
[2024-07-15] MEDS: Senna/Docusate Sodium 1 Tablet 2 TABLET PO (09:55)
[2024-07-15] MEDS: Clopidogrel Bisulfate 75 MG Tablet PO (09:55)
[2024-07-15] MEDS: LORazepam 0.5 MG Tablet PO (10:28)
--- NOTE | 2024-07-15 10:38 | CASEMGMT ---
Social Work- SW met with pt to advise that [facility] has precert and pt can d/c when medically ready. Physician advised of precert status. Pt requested SW let pt know; will be visiting this morning; SW to provide updates. SW remains available to follow. LEMUEL Hutchinson
--- NOTE | 2024-07-15 11:28 | CASEMGMT ---
Social Work- SW met with pt and son to discuss plan of care; provide update of insurance authorization. Pt son reports feeling very anxious in regards to long-term plans, as he does not feel it's feasible for pt to return home d/t safety concerns at home. Pt son states that pt did 'okay' with 17/04 care, but as his dementia behaviors escalated and care was reduced to three times per week, pt has had falls and pt and daughter have become stressed and anxious in regards to his care. Pt is tearful and reports that she wants him to come home, but does admit that she does not feel it is feasible to maintain care at home. Pt and son discuss the challenges of pt behaviors, which caused both to become emotional, as pt reportedly will state that he is healed, he is up walking around the room on his own, etc and becomes irate at family for suggesting otherwise. SW provided empathetic listening and support, as well as education on SNF process and payor guidelines, private pay options, and various care options. Pt family asked SW to speak with pt with them present. SW and pt family returned to room, where SW shared again insurance authorization updates. Pt reported that he remembered SW from earlier and shared what I spoke with him about at that time. Pt reported understanding and agreement with plan of care. Pt shared that he and have been 60 years. 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 Pt expressed pride and love for his family, conversing appropriately and with clear cognition as he shared life stories and timelines. Pt again asked SW to repeat plan of care, which pt again expressed agreement to and understanding of. Plan: [facility], skilled level of care when medically ready LEMUEL Hutchinson
[2024-07-15 13:43] VITALS: BP 156/83; PULSE 113; RESP 16; TEMP 36.7; O2SAT 95
[2024-07-15] MEDS: Menthol/Lanolin/Calamine/Znox 113 GM Tube 1 APPLIC TOPICAL (13:58)
--- NOTE | 2024-07-15 15:04 | PCM.TXEXTCAR ---
Diet Diet Order/Speech Therapy: 07/12/24 04:47 Diet: Regular - General Food consistency:: Regular Liquid Consistency:: Regular/Thin Dietary Modifications:: Gluten Free Type of Dietary Supplement:: 8oz Ensure Clear w/ break Diet Comments: GLUTEN FREE Routine Orders/Code Status Suppository Frequency: Daily PRN O2 Frequency: PRN Keep PO Greater than or Equal to (%): 89 Routine Lab Work: CBC (1 week) and BMP (1 week) Code Status: DNRCC-A (No intubation) Wound(s) LEFT LATERAL HIP: Wound Type: Surgical Incision Suggestions for Active Care Change Position every (hours): 2 Hours to sit in a chair: 2 Times a day to sit in chair: 2 Therapies Weight Bearing: Weight bearing as tolerated Extremity Affected:: Left Lower Physical Therapy: Eval and Treat Occupational Therapy: Eval and Treat Problem/Diagnosis (1) Closed intertrochanteric fracture of left hip: Status: Acute Code(s): S72.142A - Displaced intertrochanteric fracture of left femur, initial encounter for closed fracture (2) Injury due to fall: Status: Acute Code(s): W19.XXXA - Unspecified fall, initial encounter Allergies/Procedures Done in Hospital Allergies gluten Allergy (Verified 07/12/24 14:31) Diarrhea Food Allergies: Uncoded Adverse Reaction (Intermediate, Verified 07/10/24 14:10) Other Most veggies cause GI distress. no tomatoes or corn. gluten free Procedures: EKG and - (Chest x-ray/hip and pelvic x-rays) Type of Care/Length of Stay Estimated LOS: Convalescent Care Less Than 30 days Type of Care Needed: Skilled Rehab Potential: Fair Prognosis: Poor Additional Orders/Day of Discharge Day of Discharge: 07/15/24 Dietary and Speech Recommendations Dietitian Recommendations/Changes: Continue Regular/Gluten-Free diet as currently ordered. Will add 240mL ensure clear w/ breakfast for tolerance. Monitor weight as available. Follow Up Care Please Follow Up With: Nicko Baldwin MD When: 1.5 weeks Discharge Plan Admission Admit Date/Time: 07/10/24 22:13 Attending Provider: Joselin Thakkar Primary Care Provider: Kezia Lin Consulting Providers: Burt Pierer; Cameron Pascual; Nicko Baldwin; Felisa Mcclain Discharge Orders/Prescriptions Prescriptions: No Action lorazepam 0.5 mg tablet 0.5 mg PO TID PRN (Reason: anxiety) Qty: 6 0RF amlodipine 5 mg tablet 5 mg PO DAILY Patient Comments: also takes 2.5 mg at dinner. clopidogrel 75 mg tablet 75 mg PO DAILY tamsulosin 0.4 mg capsule 0.4 mg PO DAILY Referrals / Follow Up: Kezia Lin MD [Primary Care Provider] - (1) Closed intertrochanteric fracture of left hip Qualifiers: Encounter type: initial encounter Fracture alignment: nondisplaced Qualified Code(s): S72.145A - Nondisplaced intertrochanteric fracture of left femur, initial encounter for closed fracture
--- NOTE | 2024-07-15 15:07 | DS.PCM_ITS ---
Providers Date of Admission: 07/10/24 Date of Discharge: 07/15/24 Primary Care Physician: Dr. Kezia Lin MD Consultations 07/10/24 17:06 Consult: Orthopedics Routine Consulting Provider: Nicko Baldwin Reason for Consult: left intertrochanteric fracture EMERGENT Consult: No MD Notified: Yes Date Notified: 07/10/24 Time Notified: 17:06 Method of Notification: ED Physician Initiated Reason For Visit: L HIP FRACTURE Diagnosis Discharge Diagnosis (1) Closed intertrochanteric fracture of left hip: Status: Acute Code(s): S72.142A - Displaced intertrochanteric fracture of left femur, initial encounter for closed fracture Qualifiers: Encounter type: initial encounter Fracture alignment: nondisplaced Q ualified Code(s): S72.145A - Nondisplaced intertrochanteric fracture of left femur, initial encounter for closed fracture (2) Injury due to fall: Status: Acute Code(s): W19.XXXA - Unspecified fall, initial encounter Medications at Discharge Home Medications lorazepam 0.5 mg tablet 0.5 mg PO TID PRN anxiety #6 tabs 05/14/24 amlodipine 5 mg tablet 5 mg PO DAILY HYPERTENSION 07/10/24 clopidogrel 75 mg tablet 75 mg PO DAILY ANTIPLATELET 07/10/24 tamsulosin 0.4 mg capsule 0.4 mg PO DAILY BPH 07/10/24 acetaminophen 500 mg tablet 1,000 mg (2 x 500 mg) PO Q8 #0 tabs 07/15/24 aluminum-mag hydroxide-simethicone 400 mg-400 mg-40 mg/5 mL oral susp (Mag-Al Plus Extra Strength) 30 ml PO Q6H PRN PRN Gastric Burning #0 mL 07/15/24 aspirin 81 mg chewable tablet 81 mg PO BID #1 TAB 07/15/24 clotrimazole 1 % topical cream 1 applic topical BID #15 grams 07/15/24 guaifenesin 100 mg/5 mL oral liquid 100 mg (5 mL) PO Q4H PRN PRN Cough #1,000 mL 07/15/24 melatonin 3 mg tablet 3 mg PO QHS PRN PRN Insomnia #1 TAB 07/15/24 menthol 0.44 %-zinc oxide 20.6 % topical ointment (Calmoseptine) 1 applic topical TID #0 grams 07/15/24 metoprolol tartrate 25 mg tablet 12.5 mg (1/2 x 25 mg) PO BID #1 TAB 07/15/24 oxycodone 5 mg tablet 5 mg PO Q6H PRN pain 5 days #4 tabs 07/15/24 sennosides 8.6 mg-docusate sodium 50 mg tablet (Stimulant Laxative Plus) 2 tab PO BID #0 tabs 07/15/24 Hospital Course Operations - (Left hip ORIF with intramedullary nail) Procedures EKG and - (Chest x-ray/hip x-ray/pelvic x-rays) Summary of Care Provided Minutes Spent on Discharge: 37 Hospital Course: Mr. Fuentes is an 89-year-old white male with a history of vascular dementia and had been enrolled in hospice at home who presented to the emergency department at [facility] on 07/10/2020 for after mechanical fall and resultant left hip pain. Evidently he fell and then could not stand up or walk following that event. Family revoked hospitalist to come to the emergency department and have his hip assessed. Imaging on presentation showed a nondisplaced intertrochanteric fracture of the left femur. Vital signs on presentation were unremarkable. Labs were overtly unremarkable. Orthopedic surgery was consulted and he was taken to the OR on 07/11/2024 at which time ORIF of the left hip with intramedullary nail was performed. Postoperative orthopedic recommendations were to continue his Plavix and aspirin 81 mg p.o. twice daily for 4 weeks then discontinue aspirin, weightbearing as tolerated to left lower extremity, dressing removal 5 days postop which is 07/16/2024, and postoperative follow-up in the office with Dr. Baldwin in 2 weeks after surgery. His overall postoperative course was uneventful. He had a mild anemia postoperatively expected due to intraoperative blood losses but this was stable. He was maintained on his home medications. Family was concerned about some rash on his face which seem to be consistent with yeast so clotrimazole was ordered for 7 days. He was also started on metoprolol 12.5 mg p.o. twice daily for some elevated blood pressures as he previously only been on amlodipine 5 mg daily. He was seen by physical and Occupational Therapy and they recommended ongoing therapy at discharge. He was [facility] [place] [facility] and we obtained pre-CERT on 07/15/2024 at which time patient was stable for discharge. He was discharged in stable condition on this date with instructions to follow-up with Dr. Baldwin in 1.5 weeks and his primary care physician as needed postoperatively. If patient does not do well overall would recommend reenrollment in hospice. Discharge diagnoses: Left intertrochanteric hip fracture status post ORIF and intramedullary nail fixation Mechanical fall Vascular dementia BPH with obstruction Celiac disease Bilateral carotid artery stenosis AAA History of stroke Essential hypertension Physical Exam Const alert, oriented x3, no apparent distress, average body habitus and well nourished; Negative for no limitations Constitutional Narrative: Frail-appearing, elderly, white male, lying in bed, oriented to self but confused, at bedside, son at bedside, patient appears comfortable and does not look toxic General Appearance: cooperative, comfortable, well kempt and well developed Orientation / Consciousness: awake and oriented to person; Negative for oriented to place or oriented to time Nutritional Appearance: thin HEENT normocephalic and head/scalp atraumatic; Negative for hearing grossly normal bilaterally HEENT Narrative: Mallampati is 2, no thrush, moderate hearing loss Eyes EOMs intact bilaterally and conjunctivae normal Eyes Narrative: No scleral icterus is noted Neck no lymphadenopathy and supple Neck Narrative: Trachea midline, neck veins are flat Resp normal respiratory effort, no retractions, no use of accessory muscles and clear to auscultation bilaterally Auscultation: Negative for rales, rhonchi or wheezes Cardio regular rate, regular rhythm, S1 normal heart sound, S2 normal heart sound, no murmurs, no rub, no gallops and no clicks GI normal to inspection, nondistended, normoactive bowel sounds, soft to palpation and non-tender Extremity no clubbing, cyanosis or edema Extremity Narrative: Left lower extremity with postoperative dressing intact-remains clear and dry, mild edema, polar ice in place, no significant ecchymosis surrounding postoperative dressing and no tenderness over incision site Skin skin turgor normal and no jaundice Neuro moves all extremities and no focal motor deficits Speech: speech normal Psych affect normal Mood & Affect: anxious Weight / BMI Weight Weight: 69.6 kg Body Mass Index (BMI) 22.7 ABG / Lab / Microbiology Data 07/14/24 05:15 07/15/24 07:03 Laboratory: Laboratory Results - last 24 hr 07/15/24 07:03: Sodium 138, Potassium 4.0, Chloride 106, Carbon Dioxide 26.0, Anion Gap 6, BUN 26 H, Creatinine 1.14, Estim Creat Clear Calc 44.94, Est GFR (MDRD) Af Amer 78, Est GFR (MDRD) Non-Af 65, BUN/Creatinine Ratio 22.8 H, G lucose 123 H, Calcium 8.8 D/C Instructions Please Follow Up With: Nicko Baldwin MD Meaningful Use Info Meaningful Use Meaningful Use Diagnoses (Choose all that apply): None applicable Ischemic Stroke Statin Dosing Therapy Reference: STATIN DOSE THERAPY REFERENCE: * Patients > 75 years receive moderate or high dose statin therapy. * Patients 75 years or YOUNGER should receive HIGH intensity statin dose unless contraindicated. You will be required to document reason for non-treatment if statin daily dose does not meet guidelines. HIGH DOSE STATIN THERAPY DAILY Atorvastatin > than or = to 40 mg Rosuvastatin > than or = to 20 mg Amlodipine + Atorvastatin > than or = to 2.5/40 mg Ezetimibe + Simvastatin 10/80 mg Simvastatin 80mg Discharge Plan Admission Admit Date/Time: 07/10/24 22:13 Primary Reason for Your Visit: Left hip pain status post mechanical fall Attending Provider: Joselin Thakkar Primary Care Provider: Kezia Lin Consulting Providers: Burt Pierre; Cameron Pascual; Nicko Baldwin; Felisa Mcclain Instructions Additional Instructions / Restrictions: 1. Please follow-up with Dr. Baldwin from orthopedic surgery in 1.5 weeks for operative follow-up 2. Weightbearing as tolerated 3. Continue home Plavix and start aspirin 81 mg twice daily for 4 weeks then discontinue aspirin 4. Remove postop dressing on day 5 5. Weightbearing as tolerated left lower extremity Discharge Orders/Prescriptions Prescriptions: New metoprolol tartrate 25 mg tablet 12.5 mg PO BID Qty: 1 0RF acetaminophen 500 mg Tablet 1,000 mg PO Q8 Qty: 0 0RF aspirin 81 mg Tablet,Chewable 81 mg PO BID Qty: 1 0RF melatonin 3 mg Tablet 3 mg PO QHS PRN PRN (Reason: Insomnia) Qty: 1 0RF guaifenesin 100 mg/5 mL Liquid 100 mg PO Q4H PRN PRN (Reason: Cough) Qty: 1000 0RF menthol-zinc oxide [Calmoseptine] 0.44-20.6 % Ointment 1 applic topical TID Qty: 0 0RF Protocol: *Topical Application Instructions APPLICATION INSTRUCTIONS: buttocks sennosides-docusate sodium [Stimulant Laxative Plus] 8.6-50 mg Tablet 2 tab PO BID Qty: 0 0RF alum-mag hydroxide-simeth [Mag-Al Plus Extra Strength] 400-400-40 mg/5 mL Suspension 30 ml PO Q6H PRN PRN (Reason: Gastric Burning) Qty: 0 0RF clotrimazole 1 % cream 1 applic topical BID Qty: 15 0RF Rx Instructions: apply for nasolabial and glabellar area oxycodone 5 mg tablet 5 mg PO Q6H PRN (Reason: pain) 5 Days Qty: 4 0RF Continued lorazepam 0.5 mg tablet 0.5 mg PO TID PRN (Reason: anxiety) Qty: 6 0RF amlodipine 5 mg tablet 5 mg PO DAILY Patient Comments: also takes 2.5 mg at dinner. clopidogrel 75 mg tablet 75 mg PO DAILY tamsulosin 0.4 mg capsule 0.4 mg PO DAILY Referrals / Follow Up: Kezia Lin MD [Primary Care Provider] - See Referral Note (As needed) Nicko Baldwin MD [Med Staff - Active Staff] - See Referral Note (Follow-up in office in 1.5 weeks) Disposition Disposition (needs filled in before D/C Order can be placed): Custodial Facility Charges/Coding Visit Charges Inpatient E&M: 27607 SNF Disch >30 Min
--- NOTE | 2024-07-15 15:23 | CASEMGMT ---
Social Work Precert has been obtained.? Physician updated and pt is ready for discharge today.? PASSR form completed in [facility], ROSANA met with pt and they are agreeable to discharge plan as stated above.? DCA and bedside nurse notified of discharge. COVID test requested. Transport sheet completed and placed with green sheet. Disposition:[facility], skilled level of care under convalescent stay. LEMUEL Hutchinson
--- NOTE | 2024-07-15 16:20 | PHA.DC.MR.R ---
Pharmacy [place] Med Reconciliation Pharmacy Service has performed discharge medication reconciliation for this patient. The patient's discharge medication list was reviewed for discrepancies and discrepancies were resolved. Medications at Discharge Home Medications lorazepam 0.5 mg tablet 0.5 mg PO TID PRN anxiety #6 tabs 05/14/24 amlodipine 5 mg tablet 5 mg PO DAILY HYPERTENSION 07/10/24 clopidogrel 75 mg tablet 75 mg PO DAILY ANTIPLATELET 07/10/24 tamsulosin 0.4 mg capsule 0.4 mg PO DAILY BPH 07/10/24 acetaminophen 500 mg tablet 1,000 mg (2 x 500 mg) PO Q8 #0 tabs 07/15/24 aluminum-mag hydroxide-simethicone 400 mg-400 mg-40 mg/5 mL oral susp (Mag-Al Plus Extra Strength) 30 ml PO Q6H PRN PRN Gastric Burning #0 mL 07/15/24 aspirin 81 mg chewable tablet 81 mg PO BID #1 TAB 07/15/24 clotrimazole 1 % topical cream 1 applic topical BID #15 grams 07/15/24 guaifenesin 100 mg/5 mL oral liquid 100 mg (5 mL) PO Q4H PRN PRN Cough #1,000 mL 07/15/24 melatonin 3 mg tablet 3 mg PO QHS PRN PRN Insomnia #1 TAB 07/15/24 menthol 0.44 %-zinc oxide 20.6 % topical ointment (Calmoseptine) 1 applic topical TID #0 grams 07/15/24 metoprolol tartrate 25 mg tablet 12.5 mg (1/2 x 25 mg) PO BID #1 TAB 07/15/24 oxycodone 5 mg tablet 5 mg PO Q6H PRN pain 5 days #4 tabs 07/15/24 sennosides 8.6 mg-docusate sodium 50 mg tablet (Stimulant Laxative Plus) 2 tab PO BID #0 tabs 07/15/24
--- NOTE | 2024-07-15 16:21 | CASEMGMT ---
Discharge Planning Discharge orders, signed med list, covid results, and transport time sent via [facility] to [facility] Physicians will transport patient by cot at 5p. Nursing, SW, and patients updated. Diana Pandey DC Planning Asst.
--- NOTE | 2024-07-15 16:32 | NURSING ---
Called and gave report to Bonita at [facility]
== END 2024-07-15 16:55 | disposition skilled nursing facility (03) | DRG 481 ==
LOC: ED 15:35 → MS3 16:01
PROVIDERS: Family Medicine; Orthopaedic Surgery; Student in an Organized Health Care Education/Training Program; Admitting Provider Internal Medicine; Emergency Provider Emergency Medicine; PCP Internal Medicine; Visit Provider Internal Medicine
PROC: 0QS706Z Reposition Left Upper Femur with Intramedullary Internal Fixation Device, Open Approach (ICD-10-PCS; CPT 27245; principal; 2024-07-11 14:00)
DX: S72.145A Nondisplaced intertrochanteric fracture of left femur, initial encounter for closed fracture (principal); D62 Acute posthemorrhagic anemia; N13.8 Other obstructive and reflux uropathy; F01.54 Vascular dementia, unspecified severity, with anxiety; Z66 Do not resuscitate; I69.331 Monoplegia of upper limb following cerebral infarction affecting right dominant side; I10 Essential (primary) hypertension; I71.40 Abdominal aortic aneurysm, without rupture, unspecified; W19.XXXA Unspecified fall, initial encounter; I65.23 Occlusion and stenosis of bilateral carotid arteries; R79.89 Other specified abnormal findings of blood chemistry; B37.2 Candidiasis of skin and nail; R53.81 Other malaise; K90.0 Celiac disease; Z79.02 Long term (current) use of antithrombotics/antiplatelets; N40.1 Benign prostatic hyperplasia with lower urinary tract symptoms; Z79.899 Other long term (current) drug therapy
CPT/HCPCS: 36415; 71045; 73502; 76000; 80048; 80053; 85025; 85027; 85610; 85730; 86850; 86900; 86901; 87426; 93005; 94668; 97110; 97116; 97162; 97166; 97530; 97535; 97802; 97803; 99285; C1713; C1776; J7030; A4216; J2405

== ENCOUNTER 2024-07-16 22:43 | Emergency (ER) | payer MEDICARE, SELFPAY ==
[2024-07-16 22:43] VITALS: BP 164/78; PULSE 82; RESP 16; TEMP 36.6; O2SAT 94; BMI 22.6
--- OUTSIDE RECORDS SUMMARY | 2024-07-16 23:05 | XMS RPT_ITS | CCD ---
Author Organization [facility] Care Team Providers Care Hypnotherapist Name Role Phone Delia BENITEZ, Kezia Primary Care Provider Delia BENITEZ, Kezia Primary Care Provider India Woodson RN Unavailable Unavailable Delia BENITEZ, Kezia Primary Care Provider India Woodson RN Unavailable Unavailable Jerrita , Kezia Primary Care Provider GANTA, KEZIA Primary Care Unavailable NINOSKA PHILLIPS [...] extract; Translations: [GLUTEN] Drug Allergy 09-23-2011 Diarrhea [facility] Work Phone: Medications Current Medications Medication Drug [...] daily. fludrocortisone acetate 0.1 mg oral tablet (8 sources) Start: 2023 take 1 tablet by [...] Oil of Oregano [address] (Milk A Deal for [employer]) (20 sources) Start: 09-27-19 Oil of Oregano [address] (Via) Take 1 softgel daily, with meals. 09/27/2023 Active Start: 09-27-2023 Oil of Oregano [address] 60 [address] (Via) Take 1 softgel daily, with meals. 0 [...] Start: 09-27-2023 take 1 capsule by [facility] twice daily at mealtime Saccharomyces Boulardii 60 ct. (Klaire/Prothera) Take 1 capsule by mouth two times a day with meals. 0 09/27/2023 Active Comment on above: Take 1 capsule by [facility] two times a day with meals. [...] Comment on above: Take 1 capsule by [facility] once daily. testosterone 100 mg/ml cream [...] mouth three times daily Biocidin Advanced Formula (Netsket) Indications: Intestinal dysbiosis Take 5 Drops by [...] by mouth a s needed. CandiBactin AR ([employer]) (9 sources) Start: CandiBactin AR ([employer]) Indications: Intestinal dysbiosis One softgel three times daily with meals 0 10/12/2022 Active Comment on above: One softgel three ti mes daily with meals CandiBactin BR ([employer]) (9 sources) Start: 023 CandiBactin BR ([employer]) Indications: Intestinal dysbiosis Two tablets three times [...] Take 1 capsule by mouth once daily. [facility] 0 Active Comment on above: Take 1 capsule by [facility] once daily. [facility] homeopathic drugs (PROSTATE ORAL) (20 sources) Start: [...] Comment on above: Take 1 tablet by [facility] three times daily as needed for itching/rash. s-ewhlusivv-mcefhu ce root extract-aloe leaf extract (GLUTAGENICS) 3221-459-53hp powder (9 sources) Start: 10-12-2022 i-qxwfnrqjh-rfqzon ce root extract-aloe leaf extract (GLUTAGENICS) 5254-900-00nz powder Indications: Intestinal dysbiosis Mix one teaspoon [...] tablets once daily TAKE 2 TABLETS BY [facility] EVERY DAY magnesium oxide 400 mg oral [...] Comment on above: Take 1 tablet by [facility] twice daily. MILK THISTLE SEED (20 sources) Start: 04-04-2022 take 1 capsule by mouth once daily milk thistle seed extract 200 mg cap Indications: Itching Take 1 capsule by mouth once daily. 0 04/04/2022 Active Start: 04-04-2022 milk thistle s eed extract 200 mg cap Indications: Itching Take by mouth. 0 04/04/2022 Active Comment on above: Take by mouth. Take 1 capsule by [facility] once daily. OTC PRODUCT (20 sources) [...] 05-16-2023 Episodic Other aftercare (1 source) Other skilled nursing (current) drug therapy; Translations: [Medication management] Onset: 03-27-2024 Episodic Other connective tissue disease (20 sources) Soft tissue lesion of shoulder region; Translations: [Bursopathy, unspecified] Onset: 09-08-2013 02-08-2017 Episodic Other connective tissue disease (20 sources) Synovial cyst of right popliteal space; Translations: [Synovial cyst of popliteal space [Barrett], right knee] Onset: 02-14-2022 Episodic Other connective tissue disease (14 sources) Synovial cyst of popliteal space [Barrett], [...] Test Name Value Interpretation Reference Range Facility [facility] 06-21-2024 [facility] Telephone (INTMWS) RALPH,SERGO Suárez ([id number]) 1935 M Date Time Provider Department 06/21[facility] During your visit today, we recorded the [...] and signature. Once signed, please fax to [phone], [facility]. Send copy to medical records for [...] Reason for Visit: Patient Update [1234] Cmt: [facility] paperwork Prescriptions as of 07/05/2024 - fludrocortisone [...] Status:Closed by OSIRIS TAPIA on 07/05/24 Normal [facility] CNPSilvia 06-06-2024 CNPN Telephone ([facility]) SERGO ROSAS ([id number]) 1935 M Date Time Provider Department 06/06/24 KATHY HUGGINS During your visit today, we recorded the following information about you: Jennifer Carrasco 06/06/2024 11:07 AM Signed See spouse Betsey Rosas, back to back appointments canceled by remanufacturing technician Kesha when I called today. Carrol Allergies [...] Oil of Oregano [address] (Milk A Deal for Health) Take 1 softgel daily, with [...] Status:Closed by JENNIFER CARRASCO on 06/06/24 Normal [facility] Basic metabolic 2000 panelon 05-20-2024 Anion gap [Moles/Vol] 8 mmol/L Normal 8-15 [facility] Comment on above: Order Comment: Speci men Type: BLOOD SPECIMEN Ordering Facility: [facility] Address: [address] [place] [address] Performed By: #### Casandra TESTO, 83210-1, 3016-3 #### [facility] CLIA [id number] [address] [place] [address] [place] Calcium [Mass/Vol] 9.6 mg/dL Normal 8.5-10.2 [facility] Comment on above: Order Comment: Speci men Type: BLOOD SPECIMEN Ordering Facility: [facility] Address: [address] [place] [address] Performed By: #### Casandra TESTO, 68543-3, 3016-3 #### [facility] CLIA [id number] [address] [place] [address] [place] Chloride [Moles/Vol] 100 mmol/L Normal 98-107 [facility] Comment on above: Order Comment: Speci men Type: BLOOD SPECIMEN Ordering Facility: [facility] Address: [address] [place] [address] Performed By: #### Casandra TESTO, 30790-8, 3016-3 #### [facility] CLIA [id number] [address] [place], [place] [address] [place] CO2 [Moles/Vol] 29 mmol/L Normal 22-30 [facility] Comment on above: Order Comment: Speci men Type: BLOOD SPECIMEN Ordering Facility: [facility] Address: [address] [place] [address] Performed By: #### B FARHATO, 53507-3, 3016-3 #### [facility] CLIA [id number] [address] [place] [address] [place] Creatinine [Mass/Vol] 1.17 mg/dL Normal 0.73-1.22 [facility] Comment on above: Order Comment: Shani graham Type: BLOOD SPECIMEN Ordering Facility: [facility] Address: [address] [place] [address] Performed By: #### Casandra TESTO, 04031-1, 3016-3 #### [facility] CLIA [id number] [address] [place] [address] [place] Creatinine and Glomerular filtration rate.predicted panel (S/P/Bld) 60 mL/min/1.73m??? Normal >=60 [facility] Comment on above: Order Comment: Shani graham Type: BLOOD SPECIMEN Ordering Facility: [facility] Address: [address] [place] [address] Result Comment: Raquel mated Glomerular Filtration Rate [...] actual GFR. Performed By: #### Casandra DOUGHERTYO, 02156-5, 6-3 #### [facility] CLIA [id number] [address] [place] [address] [place] Glucose [Mass/Vol] 114 mg/dL High 74-99 [facility] Comment on above: Order Comment: Shani graham Type: BLOOD SPECIMEN Ordering Facility: [facility] Address: [address] [place] [address] Result Comment: The [place] Diabetes Association (ADA) provides guidance for cutoff [...] Standards of Medical Care in Diabetes 2016, [place] [employer] Association. Diabetes Care. 2016.39(Suppl 1). Performed By: #### Casandra SALMERON, 03348-4, 3015-3 #### [facility] CLIA [id number] [facility] [place] [address] [place] Potassium [Moles/Vol] 4.8 mmol/L Normal 3.7-5.1 [facility] Comment on above: Order Comment: Shani graham Type: BLOOD SPECIMEN Ordering Facility: [facility] Address: [address] [place] [address] Performed By: #### Casandra SALMERON, 60592-1, 3015-3 #### [facility] CLIA [id number] [address] [place] [address] [place] Sodium [Moles/Vol] 137 mmol/L Normal 136-144 [facility] Comment on above: Order Comment: Shani graham Type: BLOOD SPECIMEN Ordering Facility: [facility] Address: [address] [place] [address] Performed By: #### Casandra SALMERON, 66046-7, 3015-3 #### [facility] CLIA [id number] [facility] [place] [id number] [place] Urea nitrogen [Mass/Vol] 19 mg/dL Normal 9-24 [facility] Comment on above: Order Comment: Shani graham Type: BLOOD SPECIMEN Ordering Facility: [facility] Address: [address] [place] [address] Performed By: #### Casandra SALMERON, 88597-9, 6-3 #### [facility] CLIA [id number] [address] [place] [address] [place] CBC W Auto Differential pane l (Bld)on 05-20-2024 Basophils (Bld) [#/Vol] 0.06 10*3/uL Normal <0.11 [facility] Comment on above: Order Comment: Speci men Type: BLOOD SPECIMENOrdering Facility: [facility] Address: [address] [place] [address] Performed By: #### 5 7021-8 ####[facility] [id number] [place] [address] [place] Basophils/100 WBC (Bld) 1.1 % Normal [facility] Comment on above: Order Comment: Speci men Type: BLOOD SPECIMENOrdering Facility: [facility] Address: [address] [place] [address] Performed By: #### 5 7021-8 ####[facility] [id number] [place] [address] [place] Differential cell count method Nom (Bld) Auto Normal [facility] Comment on above: Order Comment: Speci men Type: BLOOD SPECIMENOrdering Facility: [facility] Address: [address] [place] [address] Performed By: #### 5 7021-8 ####[facility] [id number] [place] [address] [place] Eosinophils (Bld) [#/Vol] 0.34 10*3/uL Normal <0.46 [facility] Comment on above: Order Comment: Speci men Type: BLOOD SPECIMENOrdering Facility: [facility] Address: [address] [place] [address] Performed By: #### 5 7021-8 ####[facility] [id number] [place] [address] [place] Eosinophils/100 WBC (Bld) 6.1 % Normal [facility] Comment on above: Order Comment: Speci men Type: BLOOD SPECIMENOrdering Facility: [facility] Address: [address] [place] [address] Performed By: #### 5 7021-8 ####[facility] [id number] [place] [address] [place] Erythrocyte distribution width (RBC) [Ratio] 14.4 % Normal 11.5-15.0 [facility] Comment on above: Order Comment: Speci men Type: BLOOD SPECIMENOrdering Facility: [facility] Address: [address] [place] [address] Performed By: #### 5 7021-8 ####[facility] [id number] [place] [address] [place] Hematocrit (Bld) [Volume fraction] 38.3 % Low 39.0-51.0 [facility] Comment on above: Order Comment: Speci men Type: BLOOD SPECIMENOrdering Facility: [facility] Address: [address] [place] [address] Performed By: #### 5 7021-8 ####[facility] [id number] [place] [address] [place] Hemoglobin (Bld) [Mass/Vol] 12.4 g/dL Low 13.0-17.0 [facility] Comment on above: Order Comment: Speci men Type: BLOOD SPECIMENOrdering Facility: [facility] Address: [address] [place] [address] Performed By: #### 5 7021-8 ####[facility] [id number] [place] [address] [place] Immature granulocytes (Bld) [#/Vol] 10*3/uL Normal <0.10 [facility] Comment on above: Order Comment: Speci men Type: BLOOD SPECIMENOrdering Facility: [facility] Address: [address] [place] [address] Performed By: #### 5 7021-8 ####[facility] [id number] [place] [address] [place] Immature granulocytes/100 WBC (Bld) 0.2 % Normal [facility] Comment on above: Order Comment: Speci men Type: BLOOD SPECIMENOrdering Facility: [facility] Address: [address] [place] [address] Performed By: #### 5 7021-8 ####[facility] [id number] [place] [address] [place] Lymphocytes (Bld) [#/Vol] 1.64 10*3/uL Normal 1.00-4.00 [facility] Comment on above: Order Comment: Speci men Type: BLOOD SPECIMENOrdering Facility: [facility] Address: [address] [place] [address] Performed By: #### 5 7021-8 ####[facility] [id number] [place] [address] [place] Lymphocytes/100 WBC (Bld) 29.3 % Normal [facility] Comment on above: Order Comment: Speci men Type: BLOOD SPECIMENOrdering Facility: [facility] Address: [address] [place] [address] Performed By: #### 5 7021-8 ####[facility] [id number] [place] [address] [place] MCH (RBC) [Entitic mass] 30.5 pg Normal 26.0-34.0 [facility] Comment on above: Order Comment: Speci men Type: BLOOD SPECIMENOrdering Facility: [facility] Address: [address] [place] [address] Performed By: #### 5 7021-8 ####[facility] [id number] [place] [address] [place] MCHC (RBC) [Mass/Vol] 32.4 g/dL Normal 30.5-36.0 [facility] Comment on above: Order Comment: Speci men Type: BLOOD SPECIMENOrdering Facility: [facility] Address: [address] [place] [address] Performed By: #### 5 7021-8 ####[facility] [id number] [place] [address] [place] MCV (RBC) [Entitic vol] 94.3 fL Normal 80.0-100.0 [facility] Comment on above: Order Comment: Speci men Type: BLOOD SPECIMENOrdering Facility: [facility] Address: [address] [place] [address] Performed By: #### 5 7021-8 ####[facility] [id number] [place] [address] [place] Monocytes (Bld) [#/Vol] 0.74 10*3/uL Normal <0.87 [facility] Comment on above: Order Comment: Speci men Type: BLOOD SPECIMENOrdering Facility: [facility] Address: [address] [place] [address] Performed By: #### 5 7021-8 ####[facility] [id number] [place] [address] [place] Monocytes/100 WBC (Bld) 13.2 % Normal [facility] Comment on above: Order Comment: Speci men Type: BLOOD SPECIMENOrdering Facility: [facility] Address: [address] [place] [address] Performed By: #### 5 7021-8 ####[facility] [id number] [place] [address] [place] Neutrophils (Bld) [#/Vol] 2.81 10*3/uL Normal 1.45-7.50 [facility] Comment on above: Order Comment: Speci men Type: BLOOD SPECIMENOrdering Facility: [facility] Address: [address] [place] [address] Performed By: #### 5 7021-8 ####[facility] [id number] [place] [address] [place] Neutrophils/100 WBC (Bld) 50.1 % Normal [facility] Comment on above: Order Comment: Speci men Type: BLOOD SPECIMENOrdering Facility: [facility] Address: [address] [place] [address] Performed By: #### 5 7021-8 ####[facility] [id number] [place] [address] [place] Nucleated RBC (Bld) [#/Vol] 10*3/uL Normal <0.01 [facility] Comment on above: Order Comment: Speci men Type: BLOOD SPECIMENOrdering Facility: [facility] Address: [address] [place] [address] Performed By: #### 5 7021-8 ####[facility] [id number] [place] [address] [place] Nucleated RBC/100 WBC (Bld) [Ratio] 0.0 /100 WBC Normal [facility] Comment on above: Order Comment: Speci men Type: BLOOD SPECIMENOrdering Facility: [facility] Address: [address] [place] [address] Performed By: #### 5 7021-8 ####[facility] [id number] [place] [address] [place] Platelet mean volume (Bld) [Entitic vol] 11.0 fL Normal 9.0-12.7 [facility] Comment on above: Order Comment: Speci men Type: BLOOD SPECIMENOrdering Facility: [facility] Address: [address] [place] [address] Performed By: #### 5 7021-8 ####[facility] [id number] [place] [address] [place] Platelets (Bld) [#/Vol] 276 10*3/uL Normal 150-400 [facility] Comment on above: Order Comment: Speci men Type: BLOOD SPECIMENOrdering Facility: [facility] Address: [address] [place] [address] Performed By: #### 5 7021-8 ####[facility] [id number] [place] [address] [place] RBC (Bld) [#/Vol] 4.06 10*6/uL Low 4.20-6.00 [facility] Comment on above: Order Comment: Speci men Type: BLOOD SPECIMENOrdering Facility: [facility] Address: [address] [place] [address] Performed By: #### 5 7021-8 ####[facility] [id number] [place] [address] [place] WBC (Bld) [#/Vol] 5.60 10*3/uL Normal 3.70-11.00 [facility] Comment on above: Order Comment: Speci men Type: BLOOD SPECIMENOrdering Facility: [facility] Address: [address] [place] [address] Performed By: #### 5 7021-8 ####[facility] [id number] [place] [address] [place] CNOVon 05-20-2024 CNOV Office Visit (INTMWS ) HEADINGS,SERGO Suárez ([id number]) 1935 M Date Time Provider Department 05/20/24 [...] of Or (more content not included)... Normal [facility] 05-20-2024 [facility] Telephone (INTMWS) HEADINGS,SERGO Suárez ([id number]) 1935 M Date Time Provider Department 05/20/24 [...] Oil of Oregano [address] (Via) Take 1 softgel daily, with meals. - [...] Status:Closed by KEZIA DUBOSE on 05/20/24 Normal [facility] Magnesium SerPl-mCncon 05-20 Magnesium [Mass/Vol] 2.0 mg/dL Normal 1.7-2.3 [facility] Comment on above: Order Comment: Speci men Type: BLOOD SPECIMEN Ordering Facility: [facility] Address: [address] [place] [address] [place] [address] Performed By: #### 1 9123-9 #### [facility] CLIA [id number] [address] [place] [address] [place] TESTOSTERONE BIOAVAILABLEon 05-20-2024 Albumin [Mass/Vol] 3.8 g/dL Low 3.9-4.9 [facility] Comment on above: Order Comment: Speci men Type: BLOOD SPECIMEN Ordering Facility: [facility] Address: [address] [place] [address] Performed By: #### Casandra DOUGHERTYO, 05420-4, 6-3 #### [facility] CLIA [id number] [address] [place] [address] [place] Sex hormone binding globulin [Moles/Vol] 83 nmol/L High 14-82 [facility] Comment on above: Order Comment: Speci men Type: BLOOD SPECIMEN Ordering Facility: [facility] Address: [address] [place] [address] Performed By: #### Casandra DOUGHERTYO, 94441-5, 6-3 #### [facility] CLIA [id number] [address] [place] [address] [place] Testosterone [Mass/Vol] 355 ng/dL Normal 193-824 [facility] Comment on above: Order Comment: Speci men Type: BLOOD SPECIMEN Ordering Facility: [facility] Address: [address] [place] [address] Result Comment: A te stosterone level in the 193-320 ng/dL range with associated clinical symptoms is considered low and may indicate hypogonadism (from NEJ 2010 363:123-135). Results >320 ng/dL are considered normal. Performed By: #### Casandra DOUGHERTYO, 91654-6, 6-3 #### [facility] CLIA [id number] [address] [place] [address] [place] TSTBIO 87.2 ng/dL Low 105.0-324.0 [facility] Comment on above: Order Comment: Speci men Type: BLOOD SPECIMEN Ordering Facility: [facility] Address: [address] [place] [address] Performed By: #### Casandra TESTO, 52090-0, 3016-3 #### [facility] CLIA [id number] [address] [place] [address] [place] TSTFRC 36.4 pg/mL Low 38.0-120.0 [facility] Comment on above: Order Comment: Speci men Type: BLOOD SPECIMEN Ordering Facility: [facility] Address: [address] [place] [address] Performed By: #### Casandra TESTO, 06810-7, 3016-3 #### [facility] CLIA [id number] [address] [place] [address] [place] TSTFRP 1.0 % Low 1.1-2.6 [facility] Comment on above: Order Comment: Speci men Type: BLOOD SPECIMEN Ordering Facility: [facility] Address: [address] [place] [address] Performed By: #### Casandra TESTO, 81080-0, 3016-3 #### [facility] CLIA [id number] [address] [place] [address] [place] TSH SerPl-aCncon 05-20-2024 TSH Qn 2.590 m[IU]/L Normal 0.270-4.200 [facility] Comment on above: Order Comment: Speci men Type: BLOOD SPECIMEN Ordering Facility: [facility] Address: [address] [place] [address] Performed By: #### Casandra TESTO, 41171-0, 3016-3 #### [facility] CLIA [id number] [address] [place] [address] [place] CNPNon 04-25-2024 CNPN Telephone (INTMWS) HEADINGS,SERGO Suárez ([id number]) 1935 M Date Time Provider Department 04/25/24 KEZIA DUBOSE During your visit today, we recorded the following information about you: Ranjana Godinez RN 04/25/2024 12:27 PM Signed Patient's daughter calls and states that patient is continuing with his delirium. Daughter asking if there are any other testing that can be done? Patient was unable to get labs done yesterday due to pharmacy ancillary unable to get any blood. Daughter states [...] 4 times, gait is unsteady. Kesha called [facility] forensic social worker and they are going to work on patient getting placed into TCU at [facility] either tomorrow or Monday. 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 SESAR Joyner Stephanie, RN 04/27/2024 10:46 AM Signed Kesha calls with patient update. Patient currently is at TCU at [facility]. Insurance improved for him to be there till the . Patient continues with delirium, but daughter hopes that he will start improving. Ranjana Godinez RN Allergies As of Date: 04/25/2024 Noted Allergy Reaction GLUTEN 09/23/2011 6 - Diarrhea Comments: Upset stomach Gas build up Date Reviewed: 04/24/2024 Reviewed by: Peg De Jesus MA - Fully Assessed Reason for Visit: Patient Question [7087] Prescriptions as of 04/27/2024 - QUEtiapine (SEROQUEL) [...] [M25.511] 09/08/201308/26 (more content not included)... Normal [facility] CNOVon 04-24-2024 CNOV Office Visit (INTMWS ) HEADINGS,SERGO Kamini ([id number]) 1935 M Date Time Provider Department 04/24/24 [...] Oil of Oregano [address] (Via)Take 1 softgel daily, with meals.Disp: Rfl: Saccharomyces [...] No wh (more content not included)... Normal [facility] CNOVon 04-18-2024 CNOV Office Visit (INTMWS ) CECILSarahSERGO Suárez ([id number]) 1935 M Date Time Provider Department 04/18/24 [...] for low testosterone as ordered by an [place] provider for the past 4-5 years. Sold their house in [place] so not going to be seeing this provider anymore. Sees Dr. Mackey in [place]. Last seen over a year ago. REVIEW [...] Oil of Oregano [address] (Via)Take 1 softgel daily, with meals.Disp: Rfl: Saccharomyces [...] Diabetes Screening (more content not included)... Normal [facility] TESTOSTERONE, FREE AND TOTAL on 04-18-2024 TESTOSTERONE, FREE, S 3.79 ng/dL Normal 2.69-9.61 [facility] Comment on above: Order Comment: Speci men Type: BLOOD SPECIMEN Ordering Facility: [facility] Address: [address], [place] [address] Result Comment: ADDITIONAL INFORMATION This test was developed and its performance characteristics determined by [facility] in a manner consistent with CLIA requirements. This test has not been cleared or approved by the U.S. Food and Drug Administration. Performed By: #### C SRIDHARAGM #### [facility] CLIA [id number] [address] [place] [address] TESTOSTERONE, TOTAL, S 289 ng/dL Normal 240-950 [facility] Comment on above: Order Comment: Speci men Type: BLOOD SPECIMEN Ordering Facility: [facility] Address: [address] [place] [address] Result Comment: ADDITIONAL INFORMATION Testing performed by Liquid Chromatography-Tandem Mass Spectrometry (LC-MS/MS). This test was developed and its performance characteristics determined by [facility] in a manner consistent with CLIA requirements. This test has not been cleared or approved by the U.S. Food and Drug Administration. Test Performed by: [facility] [address] Railroad Car Repairman: Emelyn Beckham Ph.D.; CLIA# [id number] Performed By: #### C NDAGM #### [facility] CLIA [id number] [address] [place] [address] CNCOon 04-11-2024 CNCO Letter Text Normal [facility] CNOVon 04-09-2024 CNOV Office Visit (INTMWS ) SERGO ROSAS ([id number]) 1935 M Date Time Provider Department 04/09/24 [...] for low testosterone as ordered by an [place] provider for the past 4-5 years. Sold their house in [place] so not going to be seeing this provider anymore. Sees Dr. Mackey in [place]. Last seen over a year ago. REVIEW [...] Oil of Oregano [address] (Via)Take 1 softgel daily, with meals.Disp: Rfl: Saccharomyces [...] Eyes: PERRLA (more content not included)... Normal [facility] CHARISSA ALBICANS ABS, IGA,IG G,IGMon 03-27-2024 CHARISSA ALBICANS AB, IGA 2.03 EV High <=0.88 [facility] Comment on above: Order Comment: Speci santos Type: BLOOD SPECIMEN Ordering Facility: [facility] Address: [address] [place] [address] Result Comment: INTE RPRETIVE INFORMATION: Charissa Ab, [...] developed and its performance characteristics determined by [facility]. It has not been cleared or approved by the US Food and Drug Administration. This test was performed in a CLIA certified laboratory and is intended for clinical purposes. Performed By: #### C NDAGM #### [facility] CLIA [id number] [address] [place] [address] CHARISSA ALBICANS AB, IGG 1.01 EV High <=0.88 [facility] Comment on above: Order Comment: Shani graham Type: BLOOD SPECIMEN Ordering Facility: [facility] Address: [address] [id number] Result Comment: INTE RPRETIVE INFORMATION: Charissa Ab, [...] developed and its performance characteristics determined by [facility]. It has not been cleared or approved by the US Food and Drug Administration. This test was performed in a CLIA certified laboratory and is intended for clinical purposes. Performed By: #### C NDAGM #### [employer] CLIA [id number] [address] [place] [address] CHARISSA ALBICANS AB, IGM 0.40 EV Normal <=0.88 [facility] Comment on above: Order Comment: Speci men Type: BLOOD SPECIMEN Ordering Facility: [facility] Address: [address] [place] [address] Result Comment: INTE RPRETIVE INFORMATION: Charissa Ab, [...] developed and its performance characteristics determined by [facility]. It has not been cleared or approved by the US Food and Drug Administration. This test was performed in a CLIA certified laboratory and is intended for clinical purposes. Performed By: [facility] [address] [place] [address] Wireless Technician: Cal Bailey MD, PhD CLIA Number: [id number] Performed By: #### C NDAGM #### [employer] CLIA [id number] [address] [place], [place] [id number] CBC panel Auto (Bld)on 03-27 Erythrocyte distribution width (RBC) [Ratio] 15.8 % High 11.5-15.0 [facility] Comment on above: Order Comment: Speci men Type: BLOOD SPECIMENOrdering Facility: [facility] Address: [address] [place] [address] Performed By: #### 5 8410-2 ####[facility] [id number] [place] [address] [place] Hematocrit (Bld) [Volume fraction] 33.7 % Low 39.0-51.0 [facility] Comment on above: Order Comment: Speci men Type: BLOOD SPECIMENOrdering Facility: [facility] Address: [address] [place] [address] Performed By: #### 5 8410-2 ####[facility] [id number] [place] [address] [place] Hemoglobin (Bld) [Mass/Vol] 11.3 g/dL Low 13.0-17.0 [facility] Comment on above: Order Comment: Speci men Type: BLOOD SPECIMENOrdering Facility: [facility] Address: [address] [place] [address] Performed By: #### 5 8410-2 ####[facility] [id number] [place] [address] [place] MCH (RBC) [Entitic mass] 30.1 pg Normal 26.0-34.0 [facility] Comment on above: Order Comment: Speci men Type: BLOOD SPECIMENOrdering Facility: [facility] Address: [address] [place] [address] Performed By: #### 5 8410-2 ####[facility] [id number] [place] [address] [place] MCHC (RBC) [Mass/Vol] 33.5 g/dL Normal 30.5-36.0 [facility] Comment on above: Order Comment: Speci men Type: BLOOD SPECIMENOrdering Facility: [facility] Address: [address] [place] [address] Performed By: #### 5 8410-2 ####[facility] [id number] [place] [address] [place] MCV (RBC) [Entitic vol] 89.9 fL Normal 80.0-100.0 [facility] Comment on above: Order Comment: Speci men Type: BLOOD SPECIMENOrdering Facility: [facility] Address: [address] [place] [address] Performed By: #### 5 8410-2 ####[facility] [id number] [place] [address] [place] Nucleated RBC (Bld) [#/Vol] 10*3/uL Normal <0.01 [facility] Comment on above: Order Comment: Speci men Type: BLOOD SPECIMENOrdering Facility: [facility] Address: [address] [place] [address] Performed By: #### 5 8410-2 ####[facility] [id number] [place] [address] [place] Platelet mean volume (Bld) [Entitic vol] 10.4 fL Normal 9.0-12.7 [facility] Comment on above: Order Comment: Speci men Type: BLOOD SPECIMENOrdering Facility: [facility] Address: [address] [place] [address] Performed By: #### 5 8410-2 ####[facility] [id number] [place] [address] [place] Platelets (Bld) [#/Vol] 226 10*3/uL Normal 150-400 [facility] Comment on above: Order Comment: Speci men Type: BLOOD SPECIMENOrdering Facility: [facility] Address: [address] [place] [address] Performed By: #### 5 8410-2 ####[facility] [id number] [address] [address] [place] RBC (Bld) [#/Vol] 3.75 10*6/uL Low 4.20-6.00 [facility] Comment on above: Order Comment: Speci men Type: BLOOD SPECIMENOrdering Facility: [facility] Address: [address] [place] [address] Performed By: #### 5 8410-2 ####[facility] [id number] [address] [address] [place] WBC (Bld) [#/Vol] 5.28 10*3/uL Normal 3.70-11.00 [facility] Comment on above: Order Comment: Speci men Type: BLOOD SPECIMENOrdering Facility: [facility] Address: [address] [place] [address] Performed By: #### 5 8410-2 ####[facility] LABCLIA [id number] [address] [id number] [place] Comprehensive metabolic 2000 panelon 03-27-2024 Albumin [Mass/Vol] 3.7 g/dL Low 3.9-4.9 [facility] Comment on above: Order Comment: Speci men Type: BLOOD SPECIMEN Ordering Facility: [facility] Address: [address] [place] [address] Performed By: #### 2 4323-8, 06846-5, #### [facility] CLIA [id number] [address] [place] [address] [place] ALP [Catalytic activity/Vol] 63 U/L Normal 38-113 [facility] Comment on above: Order Comment: Speci men Type: BLOOD SPECIMEN Ordering Facility: [facility] Address: [address] [place] [address] Performed By: #### 2 4323-8, 90672-0, #### [facility] CLIA [id number] [address] [place] [address] [place] ALT [Catalytic activity/Vol] 21 U/L Normal 10-54 [facility] Comment on above: Order Comment: Speci men Type: BLOOD SPECIMEN Ordering Facility: [facility] Address: [address] [place] [address] Performed By: #### 2 4323-8, 05525-7, #### [facility] CLIA [id number] [address] [place] [address] [place] Anion gap [Moles/Vol] 8 mmol/L Normal 8-15 [facility] Comment on above: Order Comment: Speci men Type: BLOOD SPECIMEN Ordering Facility: [facility] Address: [address] [place] [address] Performed By: #### 2 4323-8, 07918-2, #### [facility] CLIA [id number] [address] [place] [address] [place] AST [Catalytic activity/Vol] 22 U/L Normal 14-40 [facility] Comment on above: Order Comment: Speci men Type: BLOOD SPECIMEN Ordering Facility: [facility] Address: [address] [place] [address] Performed By: #### 2 4323-8, 04956-0, #### [facility] CLIA [id number] [address] [place] [address] [place] Bilirubin [Mass/Vol] 0.8 mg/dL Normal 0.2-1.3 [facility] Comment on above: Order Comment: Speci men Type: BLOOD SPECIMEN Ordering Facility: [facility] Address: [address] [place] [address] Performed By: #### 2 4323-8, 44427-4, 21914-4 #### [facility] CLIA [id number] [address] [place], [place] [address] [place] Calcium [Mass/Vol] 9.0 mg/dL Normal 8.5-10.2 [facility] Comment on above: Order Comment: Speci men Type: BLOOD SPECIMEN Ordering Facility: [facility] Address: [address] [place] [address] Performed By: #### 2 4323-8, 88749-7, #### [facility] CLIA [id number] [address] [place] [address] [place] Chloride [Moles/Vol] 92 mmol/L Low 98-107 [facility] Comment on above: Order Comment: Speci men Type: BLOOD SPECIMEN Ordering Facility: [facility] Address: [address] [place] [address] Performed By: #### 2 4323-8, 18206-3, #### [facility] CLIA [id number] [address] [place] [address] [place] CO2 [Moles/Vol] 25 mmol/L Normal 22-30 [facility] Comment on above: Order Comment: Speci men Type: BLOOD SPECIMEN Ordering Facility: [facility] Address: [address] [place] [address] Performed By: #### 2 4323-8, 46486-8, #### [facility] CLIA [id number] [address] [place] [address] [place] Creatinine [Mass/Vol] 1.47 mg/dL High 0.73-1.22 [facility] Comment on above: Order Comment: Speci men Type: BLOOD SPECIMEN Ordering Facility: [facility] Address: [address] [place] [address] Performed By: #### 2 4323-8, 16548-6, #### [facility] CLIA [id number] [address] [place] [address] [place] Creatinine and Glomerular filtration rate.predicted panel (S/P/Bld) 46 mL/min/1.73m??? Low >=60 [facility] Comment on above: Order Comment: Shani graham Type: BLOOD SPECIMEN Ordering Facility: [facility] Address: [address] [place] [address] Result Comment: Raquel mated Glomerular Filtration Rate [...] actual GFR. Performed By: #### 2 4323-8, 74695-9, #### [facility] CLIA [id number] [address] [place] [address] [place] Glucose [Mass/Vol] 98 mg/dL Normal 74-99 [facility] Comment on above: Order Comment: Shani graham Type: BLOOD SPECIMEN Ordering Facility: [facility] Address: [address] [place] [address] Result Comment: The [place] Diabetes Association (ADA) provides guidance for cutoff [...] Standards of Medical Care in Diabetes 2016, [place] Diabetes Association. Diabetes Care. 2016.39(Suppl 1). Performed By: #### 2 4323-8, 29972-3, #### [facility] CLIA [id number] [address] [place], [place] [address] [place] Potassium [Moles/Vol] 4.6 mmol/L Normal 3.7-5.1 [facility] Comment on above: Order Comment: Speci men Type: BLOOD SPECIMEN Ordering Facility: [facility] Address: [address] [place] [address] Performed By: #### 2 4323-8, 60051-1, #### [facility] CLIA [id number] [address] [place] [address] [place] Protein [Mass/Vol] 6.4 g/dL Normal 6.3-8.0 [facility] Comment on above: Order Comment: Speci men Type: BLOOD SPECIMEN Ordering Facility: [facility] Address: [address] [place] [address] Performed By: #### 2 4323-8, 74319-9, #### [facility] CLIA [id number] [address] [place] [address] [place] Sodium [Moles/Vol] 125 mmol/L Low 136-144 [facility] Comment on above: Order Comment: Speci men Type: BLOOD SPECIMEN Ordering Facility: [facility] Address: [address] [place] [address] Performed By: #### 2 4323-8, , #### [facility] CLIA [id number] [address] [place] [address] [place] Urea nitrogen [Mass/Vol] 23 mg/dL Normal 9-24 [facility] Comment on above: Order Comment: Speci men Type: BLOOD SPECIMEN Ordering Facility: [facility] Address: [address] [place] [address] Performed By: #### 2 4323-8, 90317-0, #### [facility] CLIA [id number] [address] [place] [address] [place] HISTAMINE BLDon 03-27-2024 HISTAMINE, WB 919 nmol/L Normal 180-1800 [facility] Comment on above: Order Comment: Speci men Type: BLOOD SPECIMEN Ordering Facility: [facility] Address: [address] [place] [address] Result Comment: INTE RPRETIVE INFORMATION: Histamine, Whole Blood This test was developed and its performance characteristics determined by [facility]. It has not been cleared or approved by the US Food and Drug Administration. This test was performed in a CLIA certified laboratory and is intended for clinical purposes. Performed By: [facility] [address] [place] [address] Wireless Technician: Cal Bailey MD, PhD [place] Number: [id number] Performed By: #### C NDAGM #### [facility] CLIA [id number] [address] [place] [address] HbA1c (Bld)on 03-27-2024 Average glucose Estimated from glycated hemoglobin (Bld) [Mass/Vol] 126 mg/dL Normal [facility] Comment on above: Order Comment: Shani santos Type: BLOOD SPECIMEN Ordering Facility: [facility] Address: [address] [place] [address] Result Comment: eAG: (Estimated average glucose) is a calculated value from HgbA1c and is retail service representative of the average blood glucose level in the last 2-3 month period. Performed By: #### C NDAGM #### [id number] [address] [place] [address] HbA1c (Bld) [Mass fraction] 6.0 % High 4.3-5.6 [facility] Comment on above: Order Comment: Shani [facility] Type: BLOOD SPECIMEN Ordering Facility: [facility] Address: [address] [place] [address] Result Comment: Amer [place] Diabetes Association guidelines indicate that patients with HgbA1c in the range 5.7-6.4% are at increased risk for development of diabetes, and intervention by lifestyle modification may be beneficial. HgbA1c greater or equal to 6.5% is considered diagnostic of diabetes. Performed By: #### C NDAGM #### [facility] [employer] CLIA [id number] [address] [place] [address] IgG SerPl-mCncon 03-27-2024 IgG [Mass/Vol] 1173 mg/dL Normal 700-1600 [facility] Comment on above: Order Comment: Speci men Type: BLOOD SPECIMEN Ordering Facility: [facility] Address: [address] [place] [address] Performed By: #### [facility] #### [facility] [id number] [address] [place] [address] Lipid 1996 panelon 4 Cholesterol [Mass/Vol] 101 mg/dL Normal <200 [facility] Comment on above: Order Comment: Speci men Type: BLOOD SPECIMEN Ordering Facility: [facility] Address: [address] [place] [address] Result Comment: <200 mg/dL, Desirable 200-239 mg/dL, Borderline high >239 mg/dL, High Performed By: #### 2 4323-8, 24797-0, #### [facility] CLIA [id number] [address] [place] [address] [place] Cholesterol in HDL [Mass/Vol] 44 mg/dL Normal >39 [facility] Comment on above: Order Comment: Speci men Type: BLOOD SPECIMEN Ordering Facility: [facility] Address: [address] [place] [address] Result Comment: 40-5 9 mg/dL, Acceptable >59 mg/dL, High: Negative risk factor for coronary heart disease <40 mg/dL, Low: Positive risk factor for coronary heart disease Performed By: #### 2 4323-8, 66622-7, #### [facility] CLIA [id number] [address] [place] [address] [place] Cholesterol in LDL [Mass/Vol] 50 mg/dL Normal <100 [facility] Comment on above: Order Comment: Speci men Type: BLOOD SPECIMEN Ordering Facility: [facility] Address: [address] [place] [address] Result Comment: <100 mg/dL, Optimal 100-129 mg/dL, Near optimal/above optimal 130-159 mg/dL, Borderline high 160-189 mg/dL, High >189 mg/dL, Very high Secondary prevention optimal LDL Cholesterol levels are recommended to be < 70 mg/dL Performed By: #### 2 4323-8, 68250-2, 86456-2 #### [facility] CLIA [id number] [address] [place] [address] [place] Cholesterol in LDL/Cholesterol in HDL [Mass ratio] 1.14 {ratio} Normal <2.54 [facility] Comment on above: Order Comment: Shani graham Type: BLOOD SPECIMEN Ordering Facility: [facility] Address: [address] [place] [address] Result Comment: Refe rence: 1. National Cholesterol Education Program ATP III Guideline At-A-Glance Quick Desk Reference: National Heart, Lung, and Blood [place]. National Institutes of Health. 2001: NIH Publication No. 01-3305. 2. An International Atherosclerosis Society position paper: global recommendations for the management of dyslipidemia: executive summary, Atherosclerosis. 2014: 232(2):410-413. Performed By: #### 2 4323-8, 97038-9, #### [facility] CLIA [id number] [address] [place] [address] [place] Cholesterol in VLDL [Mass/Vol] 7 mg/dL Normal <30 [facility] Comment on above: Order Comment: Shani graham Type: BLOOD SPECIMEN Ordering Facility: [facility] Address: [address] [place] [address] Performed By: #### 2 4323-8, 53319-5, #### [facility] CLIA [id number] [address] [place] [address] [place] Cholesterol non HDL [Mass/Vol] 57 mg/dL Normal <130 [facility] Comment on above: Order Comment: Shani graham Type: BLOOD SPECIMEN Ordering Facility: [facility] Address: [address] [place] [address] Result Comment: <130 mg/dL, Optimal 130-159 mg/dL, Near optimal/above optimal 160-189 mg/dL, Borderline high 190-219 mg/dL, High >219 mg/dL, Very high Secondary prevention optimal non HDL Cholesterol levels are recommended to be <100 mg/dL Performed By: #### 2 4323-8, 42336-8, #### [facility] CLIA [id number] [address] [place] [address] [place] Cholesterol.total/Cho lesterol in HDL [Mass ratio] 2.30 {ratio} Normal <5.10 [facility] Comment on above: Order Comment: Speci men Type: BLOOD SPECIMEN Ordering Facility: [facility] Address: [address] [place] [address] Performed By: #### 2 4323-8, 19883-7, #### [facility] CLIA [id number] [address] [place] [address] [place] FASTING TIME 12 hrs Normal [facility] Comment on above: Order Comment: Speci men Type: BLOOD SPECIMEN Ordering Facility: [facility] Address: [address] [place] [address] Performed By: #### 2 4323-8, 15852-2, #### [facility] CLIA [id number] [address] [place] [address] [place] Triglyceride [Mass/Vol] 37 mg/dL Normal <150 [facility] Comment on above: Order Comment: Speci men Type: BLOOD SPECIMEN Ordering Facility: [facility] Address: [address] [place] [address] Result Comment: <150 mg/dL, Normal 150-199 mg/dL, Borderline high 200-499 mg/dL, High >499 mg/dL, Very high Performed By: #### 2 4323-8, 34059-9, #### [facility] CLIA [id number] [address] [place] [address] [place] Magnesium SerPl-mCncon 03-27 Magnesium [Mass/Vol] 2.0 mg/dL Normal 1.7-2.3 [facility] Comment on above: Order Comment: Speci men Type: BLOOD SPECIMEN Ordering Facility: [facility] Address: [address] [place] [address] Performed By: #### 2 4323-8, 18276-6, 77849-4 #### [facility] CLIA [id number] [address] [facility] [place] [address] [place] TRYPTASE BLOODon 03-27-2024 Tryptase [Mass/Vol] 12.4 ug/L High <8.4 [facility] Comment on above: Order Comment: Speci men Type: BLOOD SPECIMEN Ordering Facility: [facility] Address: [address] [place] [address] Performed By: #### C NDAGM #### [facility] CLIA [id number] [address] [place] [address] [facility] 03-01-2024 [facility] Telephone ([facility]) HEADINGS,SERGO Suárez ([id number]) 1935 M Date Time Provider Department 03/01/24 CAROLYN BAEZA [facility] During your visit today, we recorded the [...] Oil of Oregano 150 mg[address] 60 [address] (Milk A Deal for [employer]) Take 1 softgel daily, with meals. - [...] Status:Closed by LUCAS TAMAYO on 03/01/24 Normal [facility] Bacteria Ur Culton 4 Bacteria identified [...] , Intermediate >32 , Resistant >64 Abnormal [facility] Comment on above: Performed By: #### [facility] #### [facility] [id number] [address] [place] [address] CNOVon 02-28-2024 CNOV Office Visit (UCWSTR ) SERGO ROSAS ([id number]) 1935 M Date Time Provider Department 02/28/24 11:45 AM KIRSTIE ANGUIANO [facility] During your visit today, we recorded the [...] by the patient and the spouse. No high school physical education teacher was used. UTI This is a recurrent [...] Oil of Oregano [address] (Milk A Deal for [employer])Take 1 softgel daily, with meals.Disp: Rfl: Saccharomyces [...] and chest (more content not included)... Normal [facility] UA DIP, URINE (POC)on 2023 BILIRUBIN UA (POCT) Negative Negative [facility] CLARITY UA (POCT) Cloudy [facility] COLOR UA (POCT) Dark yellow [facility] GLUCOSE UA (POCT) Negative Negative mg/dL [facility] Hemoglobin Ql (U) Trace-intact Abnormal Negative [facility] Interpretation and review of laboratory results Abnormal [facility] KETONE UA (POCT) Negative Negative mg/dL [facility] LEUKOCYTES UA (POCT) Small Abnormal Negative [facility] NITRITE UA (POCT) Negative Negative [facility] PH UA (POCT) 6.0 4.5 - 8.0 [facility] Protein Ql (U) Trace Abnormal Negative mg/dL [facility] SPECIFIC GRAVITY UA (POCT) 1.010 1.005 - 1.030 [facility] UROBILINOGEN UA (POCT) 0.2 Normal E.U./dL [facility] Location:[facility], [address] [place] [address], [place], [place], [id number] [place] [address] POINT OF CARE [facility] Bacteria Ur Culton 4 Bacteria identified Cx [...] , Intermediate >32 , Resistant >64 Abnormal [facility] Comment on above: Performed By: #### 6 30-4 ####[facility] LA[facility] [id number] [place] [id number] [place] CNOVon 02-06-2024 CNOV Office Visit (UCWSTR ) SERGO ROSAS ([id number]) 1935 M Date Time Provider Department 02/06/24 10:45 AM ALKA MELARA [facility] During your visit today, we recorded the following information about you: Temperature Pulse Respiration Blood pressure 96.9 degrees 60/minute 16/minute 124/60 Weight 67.4 kg Alka Melara PA-C 02/06/2024 11:32 AM Signed This note was created using [place] REIter. Subjective Sergo Rosas is a 89 year [...] Oil of Oregano [address] (Via) Take 1 softgel daily, with meals. Saccharomyces [...] General: Abdomen (more content not included)... Normal [facility] CNOV Office Visit (JOHN ) HEADINGS,SERGO Suárez ([id number]) 1935 M Date Time Provider Department 02/06/24 [...] COMPLAINT: follow up HISTORY OF PRESENT ILLNESS: Segro Rosas is a 89 year old male, [...] vision. Recently drove all the way to [place] without any issues, no issues with memory. Does not 1 fall while he was on his way back from [place]. States he was coming up on a [...] day.Disp: 180 (more content not included)... Normal [facility] UA DIP, URINE (POC)on 2023 BILIRUBIN UA (POCT) Negative Negative [facility] CLARITY UA (POCT) [facility] COLOR UA (POCT) Dark yellow [facility] GLUCOSE UA (POCT) Negative Negative mg/dL [facility] Hemoglobin Ql (U) Trace-lysed Abnormal Negative [facility] Interpretation and review of laboratory results Abnormal [facility] KETONE UA (POCT) Negative Negative mg/dL [facility] LEUKOCYTES UA (POCT) Moderate Abnormal Negative [facility] NITRITE UA (POCT) Negative Negative [facility] PH UA (POCT) 6.5 4.5 - 8.0 [facility] Protein Ql (U) Negative Negative mg/dL [facility] SPECIFIC GRAVITY UA (POCT) 1.010 1.005 - 1.030 [facility] UROBILINOGEN UA (POCT) 0.2 Normal E.U./dL [facility] Location:[facility], [address] [place] [address], [place], [place], [id number] [place] [address] POINT OF CARE [facility] CNOVon 01-29-2024 CNOV Office Visit (CHA ) SERGO ROSAS ([id number]) 1935 M Date Time Provider Department 01/29/24 1:30 PM KATHY HUGGINS [facility] During your visit today, we recorded [...] Take 1 tablet by mouth w MEALS. z-uhvpnsbyl-lfsuydha root extract-aloe leaf extract (GLUTAGENICS) [id number] powder Mix one teaspoon (4.33 g) with [...] tablet by mouth once daily. CandiBactin AR ([employer]uppet) One softgel three times daily with meals CandiBactin BR (Metagenics) Two tablets three times daily Biocidin Advanced Formula (Netsket) Take 5 Drops by mouth three times [...] 01/29/24 Katherine (more content not included)... 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 Sold their house in [place] so not going to be seeing this provider anymore. Sees Dr. Mackey in [place]. Last seen over a year ago. REVIEW [...] Oil of Oregano [address] (Via)Take 1 softgel daily, with meals.Disp: Rfl: Saccharomyces [...] to auscultatio (more content not included)... Normal [facility] Office Visit (RAGINI ) SERGO ROSAS ([id number]) 1935 M Date Time Provider Department 01/24/24 11:30 AM WALTER NUÑEZ During your visit today, we recorded the following information about you: Pulse Blood pressure Weight 54/minute 130/57 65.2 kg Walter Nuñez MD 2024 11:44 AM Signed [facility] Department of Cardiovascular Medicine OUTPATIENT VISIT DATE 2024 OUTPATIENT VISIT TYPE ESTABLISHED PRIMARY CARE PHYSICIAN: Kezia Dubose MD [address] [facility] [address] CHIEF COMPLAINT: Patient presents with: Cardiology Follow [...] of this year. He was admitted to [facility]. 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 There [...] to find the results. We will contact [facility] for the results of the monitor. He [...] Reactions Gluten (more content not included)... Normal [facility] CNOVon 11-07-2023 CNOV Office Visit (DERMTW ) HEADINGS,SERGO Suárez ([id number]) 1935 M Date Time Provider Department 11/07/23 [...] Oil of Oregano [address] (Milk A Deal for Health) Take 1 softgel daily, with [...] (primary encount (more content not included)... Normal [facility] CNOVon 10-02-2023 CNOV Office Visit (INTMWS ) SERGO ROSAS ([id number]) 1935 M Date Time Provider Department 10/02/23 11:20 AM KEVIN BHAGAT During your visit today, we recorded the following information about you: Pulse Respiration Blood pressure Weight 60/minute 16/minute 124/62 69.4 kg Kevin Bhagat APRN.LOCKER ROOM ATTENDANT 10/05/2023 7:28 AM Signed CC: Patient presents [...] Oil of Oregano [address] (Via)Take 1 softgel daily, with meals.Disp: Rfl: Saccharomyces [...] EVERY DAYDisp: 60 tabletRfl: 3 Yeast Formula ([employer])Take 2 enteric-coated softgels between meals twice [...] other (lup (more content not included)... Normal [facility] CNOVon 09-27-2023 CNOV Office Visit ([facility] ) SERGO ROSAS ([id number]) 1935 M Date Time Provider Department 09/27/23 1:30 PM KATHY HUGGINS [facility] During your visit today, we recorded [...] Take 1 tablet by mouth w MEALS. k-bntjpdjwu-ypbfbzos root extract-aloe leaf extract (GLUTAGENICS) [id number] powder Mix one teaspoon (4.33 g) with [...] tablets three times daily Biocidin Advanced Formula (Netsket) Take 5 Drops by mouth three times [...] Patient 0 (more content not included)... Normal [facility] Basic metabolic 2000 panelon 09-08-2023 Anion gap [Moles/Vol] 10 mmol/L Normal 9-18 [facility] Comment on above: Order Comment: Speci men Type: BLOOD SPECIMEN Ordering Facility: [facility] Address: [address] [place] [address] Performed By: #### C NDAGM #### [facility] CLIA [id number] [address] [place] [address] Calcium [Mass/Vol] 9.3 mg/dL Normal 8.5-10.2 [facility] Comment on above: Order Comment: Speci men Type: BLOOD SPECIMEN Ordering Facility: [facility] Address: [address] [place] [address] Performed By: #### C NDAGM #### [facility] CLIA [id number] [address] [place] [address] Chloride [Moles/Vol] 107 mmol/L High 97-105 [facility] Comment on above: Order Comment: Speci men Type: BLOOD SPECIMEN Ordering Facility: [facility] Address: [address] [place] [address] Performed By: #### C NDAGM #### [facility] CLIA [id number] [address] [place] [address] CO2 [Moles/Vol] 23 mmol/L Normal 22-30 [facility] Comment on above: Order Comment: Speci men Type: BLOOD SPECIMEN Ordering Facility: [facility] Address: [address] [place] [address] Performed By: #### C NDAGM #### [facility] CLIA [id number] [address] [place] [address] Creatinine [Mass/Vol] 1.34 mg/dL High 0.73-1.22 [facility] Comment on above: Order Comment: Speci men Type: BLOOD SPECIMEN Ordering Facility: [facility] Address: [address] [place] [address] Performed By: #### C NDAGM #### [facility] IA [id number] [address] [place] [address] Creatinine and Glomerular filtration rate.predicted panel (S/P/Bld) 52 mL/min/1.73m??? Low >=60 [facility] Comment on above: Order Comment: Speci men Type: BLOOD SPECIMEN Ordering Facility: [facility] Address: [address] [place] [address] Result Comment: Raquel mated Glomerular Filtration Rate [...] #### C NDAGM #### [facility] CLIA [id number] [address] [place] [address] Glucose [Mass/Vol] 146 mg/dL High 74-99 [facility] Comment on above: Order Comment: Speci men Type: BLOOD SPECIMEN Ordering Facility: [facility] Address: [address] [place] [address] Result Comment: The [place] Diabetes Association (ADA) provides guidance for cutoff [...] Standards of Medical Care in Diabetes 2016, [place] Diabetes Association. Diabetes Care. 2016.39(Suppl 1). Performed By: #### C NDAGM #### [facility] CLIA [id number] [address] [place] [address] Potassium [Moles/Vol] 4.2 mmol/L Normal 3.7-5.1 [facility] Comment on above: Order Comment: Shani graham Type: BLOOD SPECIMEN Ordering Facility: [facility] Address: [address] [place] [address] Performed By: #### C NDAGM #### [facility] CLIA [id number] [address] [place] [address] Sodium [Moles/Vol] 140 mmol/L Normal 136-144 [facility] Comment on above: Order Comment: Shani graham Type: BLOOD SPECIMEN Ordering Facility: [facility] Address: [address] [place] [address] Performed By: #### C NDAGM #### [facility] CLIA [id number] [address] [place] [address] Urea nitrogen [Mass/Vol] 21 mg/dL Normal 9-24 [facility] Comment on above: Order Comment: Shani graham Type: BLOOD SPECIMEN Ordering Facility: [facility] Address: [address] [place] [address] Performed By: #### C NDAGM #### [facility] CLIA [id number] [address] [place] [address] CBC panel Auto (Bld)on 09-08 Erythrocyte distribution width (RBC) [Ratio] 14.6 % Normal 11.5-15.0 [facility] Comment on above: Order Comment: Shani graham Type: BLOOD SPECIMENOrdering Facility: [facility] Address: [address] [place] [address] Performed By: #### 5 8410-2 ####[facility] [id number] [place] [address] [place] Hematocrit (Bld) [Volume fraction] 39.6 % Normal 39.0-51.0 [facility] Comment on above: Order Comment: Speci men Type: BLOOD SPECIMENOrdering Facility: [facility] Address: [address] [place] [address] Performed By: #### 5 8410-2 ####[facility] [id number] [place] [address] [place] Hemoglobin (Bld) [Mass/Vol] 12.7 g/dL Low 13.0-17.0 [facility] Comment on above: Order Comment: Speci men Type: BLOOD SPECIMENOrdering Facility: [facility] Address: [address] [place] [address] Performed By: #### 5 8410-2 ####[facility] [id number] [place] [address] [place] MCH (RBC) [Entitic mass] 30.2 pg Normal 26.0-34.0 [facility] Comment on above: Order Comment: Speci men Type: BLOOD SPECIMENOrdering Facility: [facility] Address: [address] [place] [address] Performed By: #### 5 8410-2 ####[facility] [id number] [place] [address] [place] MCHC (RBC) [Mass/Vol] 32.1 g/dL Normal 30.5-36.0 [facility] Comment on above: Order Comment: Speci men Type: BLOOD SPECIMENOrdering Facility: [facility] Address: [address] [place] [address] Performed By: #### 5 8410-2 ####[facility] [id number] [place] [address] [place] MCV (RBC) [Entitic vol] 94.1 fL Normal 80.0-100.0 [facility] Comment on above: Order Comment: Speci men Type: BLOOD SPECIMENOrdering Facility: [facility] Address: [address] [place] [address] Performed By: #### 5 8410-2 ####[facility] [id number] [place] [address] [place] Nucleated RBC (Bld) [#/Vol] 10*3/uL Normal <0.01 [facility] Comment on above: Order Comment: Speci men Type: BLOOD SPECIMENOrdering Facility: [facility] Address: [address] [place] [address] Performed By: #### 5 8410-2 ####[facility] [id number] [place] [address] [place] Platelet mean volume (Bld) [Entitic vol] 12.0 fL Normal 9.0-12.7 [facility] Comment on above: Order Comment: Speci men Type: BLOOD SPECIMENOrdering Facility: [facility] Address: [address] [place] [address] Performed By: #### 5 8410-2 ####[facility] [id number] [place] [address] [place] Platelets (Bld) [#/Vol] 201 10*3/uL Normal 150-400 [facility] Comment on above: Order Comment: Speci men Type: BLOOD SPECIMENOrdering Facility: [facility] Address: [address] [place] [address] Performed By: #### 5 8410-2 ####[facility] [id number] [place] [address] [place] RBC (Bld) [#/Vol] 4.21 10*6/uL Normal 4.20-6.00 [facility] Comment on above: Order Comment: Speci men Type: BLOOD SPECIMENOrdering Facility: [facility] Address: [address] [place] [address] Performed By: #### 5 8410-2 ####[facility] [id number] [place] [address] [place] WBC (Bld) [#/Vol] 6.61 10*3/uL Normal 3.70-11.00 [facility] Comment on above: Order Comment: Speci men Type: BLOOD SPECIMENOrdering Facility: [facility] Address: [address] [place] [address] Performed By: #### 5 8410-2 ####[facility] [id number] [place] [address] [place] HbA1c (Bld)on 09-08-2023 Average glucose Estimated from glycated hemoglobin (Bld) [Mass/Vol] 134 mg/dL Normal [facility] Comment on above: Order Comment: Speci men Type: BLOOD SPECIMENOrdering Facility: [facility] Address: [address] [place] [address] Result Comment: eAG: (Estimated average glucose) is a calculated value from HgbA1c and is retail service representative of the average blood glucose level in the last 2-3 month period. Performed By: #### 5 5454-3 ####[facility] [id number] [place] [address] [place] HbA1c (Bld) [Mass fraction] 6.3 % High 4.3-5.6 [facility] Comment on above: Order Comment: Speci [facility] Type: BLOOD SPECIMENOrdering Facility: [facility] Address: [address] [place] [address] Result Comment: Amer [place] Diabetes Association guidelines indicate that patients with HgbA1c in the range 5.7-6.4% are at increased risk for development of diabetes, and intervention by lifestyle modification may be beneficial. HgbA1c greater or equal to 6.5% is considered diagnostic of diabetes. Performed By: #### 5 5454-3 ####[facility] [id number] NILDAReema [address] [address] [place] CNOVon 08-21-2023 CNOV Office Visit (DERMTW ) RALPHSERGO ([id number]) 1935 M Date Time Provider Department 08/21/23 [...] Abs Lymph 1.00 - 4.00 k/uL 1.49 [place]% % 11.0 Abs [place] <0.87 k/uL 0.95 (H) Eosin% % 3.6 [...] 140 Component (more content not included)... Normal [facility] Ricardo 08-10-2023 KOKO Telephone (RAGINI) HEADINGS,SERGO Suárez ([id number]) 1935 M Date Time Provider Department 08/10/23 WALTER NUÑEZ During your visit today, we recorded the following information about you: Yuliana Smith 08/10/2023 11:32 AM Signed Patient has been identified by name and date of : Yes Type of form: [facility] Holter Monitor Form received via: Fax Form has been forwarded to: Koki Centeno RN 08/10/2023 1:11 PM Signed Received fax from [employer] in [employer] for results for Holter Monitor worn from 04/25/2023-05/08/2023 LISA 06/23/2023 NOV 2024 On desk for review, will send for scanning after review Bonnie Ross APRN.PENNIE 08/11/2023 12:19 PM S[address] Plan for Dr. Nuñez. Reviewed [facility] 12-day event monitor results. Minimum heart rate [...] Encounter Status:Closed by KOKI BAE on 08/11/23 [facility] Telephone (NEMOWS) HEADINGS,SERGO Suárez ([id number]) 1935 M Date Time Provider Department 08/10/23 [...] Oil of Oregano [address] (Via) Take 1 softgel daily, with meals. - [...] Encounter Status:Closed by ELKIN TAPIA on 10/09/23 [facility] CNOVon 08-08-2023 CNOV Office Visit (JOHN ) HEADINGS,SERGO Suárez ([id number]) 1935 M Date Time Provider Department 08/08/23 [...] not been (more content not included)... Normal [facility] Basic metabolic 2000 panelon 05-06-2023 Anion gap [Moles/Vol] 10 mmol/L 9 - 18 mmol/L [facility] Calcium [Mass/Vol] 9.4 mg/dL 8.5 - 10. 2 mg/dL [facility] Chloride [Moles/Vol] 101 mmol/L 97 - 10 5 mmol/L [facility] CO2 [Moles/Vol] 26 mmol/L 22 - 30 mmol/L [facility] Creatinine [Mass/Vol] 1.33 mg/dL High 0.73 - 1.22 mg/dL [facility] Estimated Glomerular Filtration Rate 52 mL/min/1.73m Low >=60 mL/min/1.73m [facility] Glucose [Mass/Vol] 100 mg/dL High 74 - 99 mg/dL [facility] Potassium [Moles/Vol] 4.6 mmol/L 3.7 - 5.1 mmol/L [facility] Sodium [Moles/Vol] 137 mmol/L 136 - 144 mmol/L [facility] Urea nitrogen [Mass/Vol] 21 mg/dL 9 - 24 mg/dL [facility] CNDSon 04-06-2023 CN HNO ID: [id number] Author: Christine Barragan DO Service: Hospital Medicine [...] No pending results Discharge Disposition Discharge Disposition: Fdc Facility - Less than 30 Days Activity When You Leave the Hospital Limited to: PT and OT to evaluate and treat Diet Instructions Regular Follow Up Appointments Follow-Up Appointment When: In 3 weeks Anson Prater DO [phone] [facility] [id number] PCP Requested Referral Additional Provider to Provider Information: Treatment Team: Attending Provider: Christine Barragan DO Attending: MR OCTAVIA KENNEY Transitions of Care Critical Issues: SPECIALIST FOLLOW-UP: Neurology LABS AND PROCEDURES PENDING AT DISCHARGE: No pending results. FOLLOW-UP APPOINTMENTS ALREADY SCHEDULED WITH A [facility] PROVIDER: Future Appointments Date Time Provider Department Center 05/15/2023 3:30 PM Kathy Huggins MD [facility] Chag 06/23/2023 9:00 AM ECHOCARDIOGRAM INDP [facility] Ind 06/23/2023 1:30 PM Walter Nuñez MD [facility] Indp 06/26/2023 11:20 AM Kevin Bhagat APRN.LOCKER ROOM ATTENDANT INTMWS [facility] Discharge Information Row Name ED to Hosp-Admission (Current) from 04/01/2023 in MR 9M TCU/MED Rehab Facility Agency [facility] Acute Rehab [phone] ALLERGIES Allergen Reactions Gluten Diarrhea Upset stomach [...] L-GLUTAMINE 500 mg Cap Generic drug: Glutamine r-datmnsfaf-yarzsgcq root extract-aloe leaf extract powder Commonly known as: GLUTAGENICS milk thistle seed extract 200 mg Cap OTC PRODUCT OTC PRODUCT (more content not included)... [facility] THERAPY NT 04-06-2023 THERAPY NT [facility] ID: [id number] Author: SHASTA Keller Service: Occupational Therapy Author Type: Schedule Manager Type: Therapy (PT/OT/Speech/Resp) Filed: 04/06/2023 1:54 PM Note Text: Attestation signed by MONTY Valles at 04/06/2023 2:05 PM I reviewed and agree with the documentation corresponding to this therapy visit. SIGNATURE: MONTY Braga DATE: April 06, 2023 TIME: 2:05 PM Occupational Therapy Treatment SERVICE DATE: 04/06/2023 SERVICE TIME: 0945 to 1015 ROOM: [place] [address] Recommended Discharge Disposition: Acute Rehab Recommended Discharge [...] progress with (more content not included)... Normal [facility] XR CHEST 2V FRONTAL/LATon XR CHEST [...] and atelectasis. 3. Minimal left apical pneumothorax. Aviation Electronics Technician: TIANA Transcribe Date/Time: Apr 06 2023 2:51P Dictated by : JANET OLIVEIRA MD This examination was interpreted and the report reviewed and electronically signed by: JANET OLIVEIRA MD on Apr 06 2023 2:54PM EST [id number] Normal [facility] Basic metabolic 2000 panelon 04-05-2023 Anion gap [Moles/Vol] 6 mmol/L Normal 5-16 [facility] Comment on above: Order Comment: Speci men Type: BLOOD SPECIMEN Ordering Facility: [facility] Address: [address] [place] [address] Performed By: #### 5 7021-8, 24219-3 #### [facility] CLIA [id number] [address] [place] [address] [place] Calcium [Mass/Vol] 8.7 mg/dL Normal 8.5-10.5 [facility] Comment on above: Order Comment: Speci men Type: BLOOD SPECIMEN Ordering Facility: [facility] Address: [address] [place] [address] Performed By: #### 5 7021-8, 64993-7 #### [facility] CLIA [id number] [address] [place] [address] [place] Chloride [Moles/Vol] 96 mmol/L Low 98-107 [facility] Comment on above: Order Comment: Speci men Type: BLOOD SPECIMEN Ordering Facility: [facility] Address: [address] [place] [address] Performed By: #### 5 7021-8, 65899-6 #### [facility] [facility] CLIA [id number] [address] [place] [address] [place] CO2 [Moles/Vol] 26 mmol/L Normal 21-32 [facility] Comment on above: Order Comment: Speci men Type: BLOOD SPECIMEN Ordering Facility: [facility] Address: [address] [address] Performed By: #### 5 7021-8, 00271-6 #### [facility] CLIA [id number] [address] [place] [address] [place] Creatinine [Mass/Vol] 1.27 mg/dL Normal 0.50-1.40 [facility] Comment on above: Order Comment: Shani graham Type: BLOOD SPECIMEN Ordering Facility: [facility] Address: [address] [address] Result Comment: Pam ents receiving either N-Acetylcysteine (NAC) or Metamizole prior to venipuncture, may have falsely depressed results. Performed By: #### 5 7021-8, 91358-1 #### [facility] CLIA [id number] [address] [place] [address] OF [facility] ESTIMATED GLOMERULAR FILTRATION RATE 55 mL/min/1.73m??? Low >=60 [facility] Comment on above: Order Comment: Shani graham Type: BLOOD SPECIMEN Ordering Facility: [facility] Address: [address] [place] [address] Result Comment: Raquel mated Glomerular Filtration Rate [...] actual GFR. Performed By: #### 5 7021-8, 64599-3 #### [facility] CLIA [id number] [address] [place] [address] [place] Glucose [Mass/Vol] 125 mg/dL High 70-100 [facility] Comment on above: Order Comment: Shani grahma Type: BLOOD SPECIMEN Ordering Facility: [facility] Address: [address] [address] Result Comment: The [place] Diabetes Association (ADA) provides guidance for cutoff [...] Standards of Medical Care in Diabetes 2016, [place] [employer]. Diabetes Care. 2016.39(Suppl 1). Results may be falsely elevated after the administration of Sulfapyridine. Results may be falsely depressed after the administration of Sulfasalazine. Performed By: #### 5 7021-8, 77453-9 #### [facility] CLIA [id number] [address] [place] [address] [place] Potassium [Moles/Vol] 4.6 mmol/L Normal 3.5-5.1 [facility] Comment on above: Order Comment: Shani graham Type: BLOOD SPECIMEN Ordering Facility: [facility] Address: [address] [address] Performed By: #### 5 7021-8, 04098-3 #### [facility] CLIA [id number] [address] [place] [address] [place] Sodium [Moles/Vol] 128 mmol/L Low 136-145 [facility] Comment on above: Order Comment: Jenai santos Type: BLOOD SPECIMEN Ordering Facility: [facility] Address: [address] [address] Performed By: #### 5 7021-8, 06134-1 #### [facility] CLIA [id number] [address] [place] [address] [place] Urea nitrogen [Mass/Vol] 31 mg/dL High 7-26 [facility] Comment on above: Order Comment: Shani graham Type: BLOOD SPECIMEN Ordering Facility: [facility] Address: [address] [address] Performed By: #### 5 7021-8, 61803-4 #### [facility] CLIA [id number] [address] [place] [address] [place] CBC W Auto Differential pane l (Bld)on 04-05-2023 Basophils (Bld) [#/Vol] 0.03 10*3/uL Normal <0.11 [facility] Comment on above: Order Comment: Speci men Type: BLOOD SPECIMEN Ordering Facility: [facility] Address: [address] [address] Performed By: #### 5 7021-8, 74996-9 #### [facility] CLIA [id number] [address] [place] [address] [place] Basophils/100 WBC (Bld) 0.3 % Normal [facility] Comment on above: Order Comment: Speci men Type: BLOOD SPECIMEN Ordering Facility: [facility] Address: [address] [place] [address] Performed By: #### 5 7021-8, 35712-1 #### [facility] CLIA [id number] [address] [place] [address] [place] Differential cell count method Nom (Bld) Auto Normal [facility] Comment on above: Order Comment: Speci men Type: BLOOD SPECIMEN Ordering Facility: [facility] Address: [address] [address] Performed By: #### 5 7021-8, 58496-0 #### [facility] CLIA [id number] [address] [place] [address] [place] Eosinophils (Bld) [#/Vol] 0.31 10*3/uL Normal <0.46 [facility] Comment on above: Order Comment: Speci men Type: BLOOD SPECIMEN Ordering Facility: [facility] Address: [address] [address] Performed By: #### 5 7021-8, 08680-9 #### [facility] CLIA [id number] [address] [place] [address] [place] Eosinophils/100 WBC (Bld) 3.6 % Normal [facility] Comment on above: Order Comment: Speci men Type: BLOOD SPECIMEN Ordering Facility: [facility] Address: [address] [place] [address] Performed By: #### 5 7021-8, 10803-9 #### [facility] CLIA [id number] [address] [place] [address] [place] Erythrocyte distribution width (RBC) [Ratio] 14.3 % Normal 11.5-15.0 [facility] Comment on above: Order Comment: Speci men Type: BLOOD SPECIMEN Ordering Facility: [facility] Address: [address] [place] [address] Performed By: #### 5 7021-8, 19883-0 #### [facility] CLIA [id number] [address] [place] [address] [place] Hematocrit (Bld) [Volume fraction] 35.7 % Low 39.0-51.0 [facility] Comment on above: Order Comment: Speci men Type: BLOOD SPECIMEN Ordering Facility: [facility] Address: [address] [place] [address] Performed By: #### 5 7021-8, 92614-5 #### [facility] CLIA [id number] [address] [place] [address] [place] Hemoglobin (Bld) [Mass/Vol] 12.7 g/dL Low 13.0-17.0 [facility] Comment on above: Order Comment: Speci men Type: BLOOD SPECIMEN Ordering Facility: [facility] Address: [address] [place] [address] Performed By: #### 5 7021-8, 62935-6 #### [facility] CLIA [id number] [address] [place] [address] [place] Immature granulocytes (Bld) [#/Vol] 0.03 10*3/uL Normal <0.10 [facility] Comment on above: Order Comment: Speci men Type: BLOOD SPECIMEN Ordering Facility: [facility] Address: [address] [address] Performed By: #### 5 7021-8, 50324-4 #### [facility] CLIA [id number] [address] [place] [address] [place] Immature granulocytes/100 WBC (Bld) 0.3 % Normal [facility] Comment on above: Order Comment: Speci men Type: BLOOD SPECIMEN Ordering Facility: [facility] Address: [address] [address] Performed By: #### 5 7021-8, 97865-7 #### [facility] CLIA [id number] [address] [place] [address] [place] Lymphocytes (Bld) [#/Vol] 1.49 10*3/uL Normal 1.00-4.00 [facility] Comment on above: Order Comment: Speci men Type: BLOOD SPECIMEN Ordering Facility: [facility] Address: [address] [address] Performed By: #### 5 7021-8, 34180-8 #### [facility] CLIA [id number] [address] [place] [address] [place] Lymphocytes/100 WBC (Bld) 17.2 % Normal [facility] Comment on above: Order Comment: Speci men Type: BLOOD SPECIMEN Ordering Facility: [facility] Address: [address] [address] Performed By: #### 5 7021-8, 42944-8 #### [facility] CLIA [id number] [address] [place] [address] [place] MCH (RBC) [Entitic mass] 31.1 pg Normal 26.0-34.0 [facility] Comment on above: Order Comment: Speci men Type: BLOOD SPECIMEN Ordering Facility: [facility] Address: [address] [address] Performed By: #### 5 7021-8, 68810-2 #### [facility] CLIA [id number] [address] [place] [address] [place] MCHC (RBC) [Mass/Vol] 35.6 g/dL Normal 30.5-36.0 [facility] Comment on above: Order Comment: Speci men Type: BLOOD SPECIMEN Ordering Facility: [facility] Address: [address] [place] [address] Performed By: #### 5 7021-8, 66035-6 #### [facility] CLIA [id number] [address] [place] [address] [place] MCV (RBC) [Entitic vol] 87.3 fL Normal 80.0-100.0 [facility] Comment on above: Order Comment: Speci men Type: BLOOD SPECIMEN Ordering Facility: [facility] Address: [address] [place] [address] Performed By: #### 5 7021-8, 09772-0 #### [facility] CLIA [id number] [address] [place] [address] [place] Monocytes (Bld) [#/Vol] 0.95 10*3/uL High <0.87 [facility] Comment on above: Order Comment: Speci men Type: BLOOD SPECIMEN Ordering Facility: [facility] Address: [address] [place] [address] Performed By: #### 5 7021-8, 74126-4 #### [facility] CLIA [id number] [address] [place] [address] [place] Monocytes/100 WBC (Bld) 11.0 % Normal [facility] Comment on above: Order Comment: Speci men Type: BLOOD SPECIMEN Ordering Facility: [facility] Address: [address] [place] [address] Performed By: #### 5 7021-8, 72516-4 #### [facility] CLIA [id number] [address] [place] [address] [place] Neutrophils (Bld) [#/Vol] 5.84 10*3/uL Normal 1.45-7.50 [facility] Comment on above: Order Comment: Speci men Type: BLOOD SPECIMEN Ordering Facility: [facility] Address: [address] Performed By: #### 5 7021-8, 26008-2 #### [facility] CLIA [id number] [address] [place] [address] [place] Neutrophils/100 WBC (Bld) 67.6 % Normal [facility] Comment on above: Order Comment: Speci men Type: BLOOD SPECIMEN Ordering Facility: [facility] Address: [address] Performed By: #### 5 7021-8, 15448-5 #### [facility] CLIA [id number] [address] [place] [address] [place] Nucleated RBC (Bld) [#/Vol] 10*3/uL Normal <0.01 [facility] Comment on above: Order Comment: Speci men Type: BLOOD SPECIMEN Ordering Facility: [facility] Address: [address] Performed By: #### 5 7021-8, 40954-0 #### [facility] CLIA [id number] [address] [place] [address] [place] Nucleated RBC/100 WBC (Bld) [Ratio] 0.0 /100 WBC Normal [facility] Comment on above: Order Comment: Speci men Type: BLOOD SPECIMEN Ordering Facility: [facility] Address: [address] Performed By: #### 5 7021-8, 66454-7 #### [facility] CLIA [id number] [address] [place] [address] [place] Platelet mean volume (Bld) [Entitic vol] 10.4 fL Normal 9.0-12.7 [facility] Comment on above: Order Comment: Speci men Type: BLOOD SPECIMEN Ordering Facility: [facility] Address: [address] Performed By: #### 5 7021-8, 07152-3 #### [facility] CLIA [id number] [address] [place] [address] [facility] [place] Platelets (Bld) [#/Vol] 200 10*3/uL Normal 150-400 [facility] Comment on above: Order Comment: Speci men Type: BLOOD SPECIMEN Ordering Facility: [facility] Address: [address] [place] [address] Performed By: #### 5 7021-8, 90915-4 #### [facility] CLIA [id number] [address] [place], [place] [address] [place] RBC (Bld) [#/Vol] 4.09 10*6/uL Low 4.20-6.00 [facility] Comment on above: Order Comment: Speci men Type: BLOOD SPECIMEN Ordering Facility: [facility] Address: [address] [place] [address] Performed By: #### 5 7021-8, 59371-2 #### [facility] CLIA [id number] [address] [place] [address] [place] WBC (Bld) [#/Vol] 8.65 10*3/uL Normal 3.70-11.00 [facility] Comment on above: Order Comment: Speci men Type: BLOOD SPECIMEN Ordering Facility: [facility] Address: [address] [place] [address] Performed By: #### 5 7021-8, 95693-5 #### [facility] CLIA [id number] [address] [place], [place] [address] [facility] CONSULT PROGon 04-05-2023 CONSULT PROG HNO ID: [id number] Author: Ernie Alexis APRN.LOCKER ROOM ATTENDANT Service: Trauma Author Type: Nurse Practitioner Type: [...] 0659 04/05/23 07 - 04/06/23 0659 Shift [phone] 24 Hour Total [phone] 24 Hour Total INTAKE [address] 300 [...] 05, 2023 TIME: 8:59 AM Pager: See Manager Stylist Schedule Normal [facility] CT BRAIN WO IVCONon 04-05-20 CT BRAIN WO IVCON * * *Final Report* * * DATE OF EXAM: Apr 05 2023 11:51AM [facility] 0504 - CT BRAIN WO IVCON / [...] calvarium are intact with no acute abnormalities. Financial Dealers (topogram) images: Noncontributory. 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 No acute hemorrhage. Aviation Electronics Technician: PSCCasandra Transcribe Date/Time: Apr 05 2023 12:08P Dictated by : JANET OLIVEIRA MD This examination was interpreted and the report reviewed and electronically signed by: JANET OLIVEIRA MD on Apr 05 2023 12:12PM EST [id number] [facility] THERAPY NTon 04-05-2023 THERAPY NT HNO ID: [id number] Author: SHASTA Keller Service: ? Author Type: Schedule Manager Type: Therapy (PT/OT/Speech/Resp) Filed: 04/05/2023 3:45 PM Note Text: Attestation signed by MONTY Brice at 04/05/2023 4:15 PM I reviewed and agree with the documentation corresponding to this therapy visit. SIGNATURE: MONTY Brice DATE: April 05, 2023 TIME: 4:15 PM Occupational Therapy Treatment SERVICE DATE: 04/05/2023 SERVICE TIME: 1330 to 1400 ROOM: [id number] Recommended Discharge Disposition: Acute Rehab Recommended Discharge [...] limited postural sway (more content not included)... [facility] THERAPY NT HNO ID: [id number] Author: Carlos Manuel Caldwell PTA Service: Physical Therapy Author Type: Railroad Passenger Agent Type: Therapy (PT/OT/Speech/Resp) Filed: 04/05/2023 3:02 PM Note Text: Attestation signed by Kiki Vora PT at 04/05/2023 3:12 PM I reviewed and agree with the documentation corresponding to this therapy visit. SIGNATURE: Kiki Vora PT DATE: April 05, 2023 TIME: 3:12 PM Physical Therapy Treatment SERVICE DATE: 04/05/2023 SERVICE TIME: 1059 to 1123 ROOM: [place] [address] Recommended Discharge Disposition: Acute Rehab Recommended Discharge [...] Unsteadiness on feet Interventions Provided: Therapeutic Activity (15993) Therapeutic Activity (51698) Treatment Minutes: 24 $ Therapeutic Activity (68709) Billed Units: 2 units Timed Code Treatment (minutes): 24 Skilled Treatment Time (minutes): 24 Please see discipline specific clinical documentation flowsheet for complete details for this therapy evaluation/treatment. SIGNATURE: Carlos Manuel Caldwell PTA PATIENT NAME: Sergo Suárez Headings DATE: April 05, 2023 TIME: 3:00 PM Normal [facility] Urinalysis complete panel (U )on 04-05-2023 Bacteria LM.HPF (Urine sed) [#/Area] None Seen Normal None Seen [facility] Comment on above: Order Comment: Speci men Type: BLOOD SPECIMEN Ordering Facility: [facility] Address: [address] [place] [address] Performed By: #### 5 7021-8, 04010-7 #### [facility] CLIA [id number] [address] [place] [address] [place] Bilirubin Ql (U) Negative Normal Negative [facility] Comment on above: Order Comment: Speci men Type: BLOOD SPECIMEN Ordering Facility: [facility] Address: [address] [place] [address] Performed By: #### 5 7021-8, 10814-2 #### [facility] CLIA [id number] [address] [place] [address] [place] Clarity (Unsp spec) Clear Normal Clear [facility] Comment on above: Order Comment: Speci men Type: BLOOD SPECIMEN Ordering Facility: [facility] Address: [address] [address] Performed By: #### 5 7021-8, 65703-7 #### [facility] CLIA [id number] [address] [place] [address] [place] Color (U) Yellow Normal Yellow [facility] Comment on above: Order Comment: Speci men Type: BLOOD SPECIMEN Ordering Facility: [facility] Address: [address] [place] [address] Performed By: #### 5 7021-8, 98619-1 #### [facility] CLIA [id number] [address] [place] [address] [place] Epithelial cells LM.HPF (Urine sed) [#/Area] None Seen Normal [facility] Comment on above: Order Comment: Speci men Type: BLOOD SPECIMEN Ordering Facility: [facility] Address: [address] [place] [address] Performed By: #### 5 7021-8, 38282-1 #### [facility] CLIA [id number] [address] [place] [address] [place] Glucose Test strip (U) [Mass/Vol] Negative Normal Negative [facility] Comment on above: Order Comment: Speci men Type: BLOOD SPECIMEN Ordering Facility: [facility] Address: [address] [place] [address] Performed By: #### 5 7021-8, 86055-6 #### [facility] CLIA [id number] [address] [place] [address] [place] Hemoglobin Ql (U) 1+ Abnormal Negative [facility] Comment on above: Order Comment: Speci men Type: BLOOD SPECIMEN Ordering Facility: [facility] Address: [address] [address] Performed By: #### 5 7021-8, 42336-6 #### [facility] CLIA [id number] [address] [place] [address] [place] Ketones Ql (U) Negative Normal Negative [facility] Comment on above: Order Comment: Speci men Type: BLOOD SPECIMEN Ordering Facility: [facility] Address: [address] [place] [address] Performed By: #### 5 7021-8, 23594-5 #### [facility] CLIA [id number] [address] [place] [address] [place] Leukocyte esterase Test strip Ql (U) Negative Normal Negative [facility] Comment on above: Order Comment: Speci men Type: BLOOD SPECIMEN Ordering Facility: [facility] Address: [address] [place] [address] Performed By: #### 5 7021-8, 27219-2 #### [facility] CLIA [id number] [address] [place] [address] [place] Nitrite Ql (U) Negative Normal Negative [facility] Comment on above: Order Comment: Speci men Type: BLOOD SPECIMEN Ordering Facility: [facility] Address: [address] [place] [address] Performed By: #### 5 7021-8, 82279-1 #### [facility] CLIA [id number] [address] [place] [address] [place] pH (U) 5.0 [pH] Normal 5.0-8.0 [facility] Comment on above: Order Comment: Speci men Type: BLOOD SPECIMEN Ordering Facility: [facility] Address: [address] [place] [address] Performed By: #### 5 7021-8, 65131-0 #### [facility] CLIA [id number] [address] [place] [address] [place] Protein (U) [Mass/Vol] Negative Normal Negative [facility] Comment on above: Order Comment: Speci men Type: BLOOD SPECIMEN Ordering Facility: [facility] Address: [address] [place] [address] Performed By: #### 5 7021-8, 01280-5 #### [facility] CLIA [id number] [address] [place] [address] [place] RBC LM.HPF (Urine sed) [#/Area] 0-3 /HPF Normal 0-3 /HPF [facility] Comment on above: Order Comment: Speci men Type: BLOOD SPECIMEN Ordering Facility: [facility] Address: [address] [place] [address] Performed By: #### 5 7021-8, 13150-5 #### [facility] CLIA [id number] [address] [place] [address] Specific gravity (U) [Rel density] 1.017 Normal 1.005-1.030 [facility] Comment on above: Order Comment: Speci men Type: BLOOD SPECIMEN Ordering Facility: [facility] Address: [address] [place] [address] Performed By: #### 5 7021-8, 62675-6 #### [facility] CLIA [id number] [address] [place] [address] Urobilinogen Ql (U) Negative Normal Negative [facility] Comment on above: Order Comment: Speci men Type: BLOOD SPECIMEN Ordering Facility: [facility] Address: [address] [place] [address] Performed By: #### 5 7021-8, 91144-8 #### [facility] CLIA [id number] [address] [place] [address] WBC LM.HPF (Urine sed) [#/Area] 0-5 /HPF Normal 0-5 /HPF [facility] Comment on above: Order Comment: Speci men Type: BLOOD SPECIMEN Ordering Facility: [facility] Address: [address] [place] [address] Performed By: #### 5 7021-8, 38449-9 #### [facility] CLIA [id number] [address] [place] [address] ALLIED HEALTHon 04-04-2023 ALLIED HEALTH HNO ID: [id number] Author: Cara Agrawal RT(R) Service: Radiology Author [...] RT Jody(R) April 04, 2023 12:09 PM [facility] CBC W Auto Differential pane l (Bld)on 04-04-2023 Basophils (Bld) [#/Vol] 10*3/uL Normal <0.11 [facility] Comment on above: Order Comment: Shani graham Type: BLOOD SPECIMEN Ordering Facility: [facility] Address: [address] [place] [address] Performed By: #### 5 7021-8, 66413-4 #### [facility] CLIA [id number] [address] [place] [address] [place] Basophils/100 WBC (Bld) 0.1 % Normal [facility] Comment on above: Order Comment: Shani graham Type: BLOOD SPECIMEN Ordering Facility: [facility] Address: [address] [place] [address] Performed By: #### 5 7021-8, 99973-7 #### [facility] CLIA [id number] [address] [place], [place] [address] [place] [place] Differential cell count method Nom (Bld) Auto Normal [facility] Comment on above: Order Comment: Speci men Type: BLOOD SPECIMEN Ordering Facility: [facility] Address: [address] [address] Performed By: #### 5 7021-8, 90870-4 #### [facility] CLIA [id number] [address] [place] [address] [place] Eosinophils (Bld) [#/Vol] 0.30 10*3/uL Normal <0.46 [facility] Comment on above: Order Comment: Speci men Type: BLOOD SPECIMEN Ordering Facility: [facility] Address: [address] [address] Performed By: #### 5 7021-8, 44982-0 #### [facility] CLIA [id number] [address] [place] [address] [place] Eosinophils/100 WBC (Bld) 4.4 % Normal [facility] Comment on above: Order Comment: Speci men Type: BLOOD SPECIMEN Ordering Facility: [facility] Address: [address] [address] Performed By: #### 5 7021-8, 74402-3 #### [facility] CLIA [id number] [address] [place] [address] [place] Erythrocyte distribution width (RBC) [Ratio] 14.3 % Normal 11.5-15.0 [facility] Comment on above: Order Comment: Speci men Type: BLOOD SPECIMEN Ordering Facility: [facility] Address: [address] [address] Performed By: #### 5 7021-8, 26863-5 #### [facility] CLIA [id number] [address] [place] [address] [place] Hematocrit (Bld) [Volume fraction] 36.3 % Low 39.0-51.0 [facility] Comment on above: Order Comment: Speci men Type: BLOOD SPECIMEN Ordering Facility: [facility] Address: [address] [address] Performed By: #### 5 7021-8, 27032-8 #### [facility] CLIA [id number] [address] [place] [address] [place] Hemoglobin (Bld) [Mass/Vol] 12.6 g/dL Low 13.0-17.0 [facility] Comment on above: Order Comment: Speci men Type: BLOOD SPECIMEN Ordering Facility: [facility] Address: [address] [place] [address] Performed By: #### 5 7021-8, 09226-9 #### [facility] CLIA [id number] [address] [place] [address] [place] Immature granulocytes (Bld) [#/Vol] 10*3/uL Normal <0.10 [facility] Comment on above: Order Comment: Speci men Type: BLOOD SPECIMEN Ordering Facility: [facility] Address: [address] [place] [address] Performed By: #### 5 7021-8, 98324-4 #### [facility] CLIA [id number] [address] [place] [address] [place] Immature granulocytes/100 WBC (Bld) 0.1 % Normal [facility] Comment on above: Order Comment: Speci men Type: BLOOD SPECIMEN Ordering Facility: [facility] Address: [address] [address] Performed By: #### 5 7021-8, 24134-1 #### [facility] CLIA [id number] [address] [place] [address] [place] Lymphocytes (Bld) [#/Vol] 1.52 10*3/uL Normal 1.00-4.00 [facility] Comment on above: Order Comment: Speci men Type: BLOOD SPECIMEN Ordering Facility: [facility] Address: [address] [address] Performed By: #### 5 7021-8, 75021-9 #### [facility] CLIA [id number] [address] [place] [address] Lymphocytes/100 WBC (Bld) 22.5 % Normal [facility] Comment on above: Order Comment: Speci men Type: BLOOD SPECIMEN Ordering Facility: [facility] Address: [address] [address] Performed By: #### 5 7021-8, 84973-8 #### [facility] CLIA [id number] [address] [place] [address] [place] MCH (RBC) [Entitic mass] 30.1 pg Normal 26.0-34.0 [facility] Comment on above: Order Comment: Speci men Type: BLOOD SPECIMEN Ordering Facility: [facility] Address: [address] [address] Performed By: #### 5 7021-8, 81646-0 #### [facility] CLIA [id number] [address] [place] [address] [place] MCHC (RBC) [Mass/Vol] 34.7 g/dL Normal 30.5-36.0 [facility] Comment on above: Order Comment: Speci men Type: BLOOD SPECIMEN Ordering Facility: [facility] Address: [address] [address] Performed By: #### 5 7021-8, 57089-3 #### [facility] CLIA [id number] [address] [place] [address] [place] MCV (RBC) [Entitic vol] 86.8 fL Normal 80.0-100.0 [facility] Comment on above: Order Comment: Speci men Type: BLOOD SPECIMEN Ordering Facility: [facility] Address: [address] [address] Performed By: #### 5 7021-8, 86127-3 #### [facility] CLIA [id number] [address] [place] [address] [place] Monocytes (Bld) [#/Vol] 1.07 10*3/uL High <0.87 [facility] Comment on above: Order Comment: Speci men Type: BLOOD SPECIMEN Ordering Facility: [facility] Address: [address] [place] [address] Performed By: #### 5 7021-8, 93480-9 #### [facility] CLIA [id number] [address] [place] [address] [place] Monocytes/100 WBC (Bld) 15.9 % Normal [facility] Comment on above: Order Comment: Speci men Type: BLOOD SPECIMEN Ordering Facility: [facility] Address: [address] [place] [address] Performed By: #### 5 7021-8, 14255-4 #### [facility] CLIA [id number] [address] [place] [address] [place] Neutrophils (Bld) [#/Vol] 3.84 10*3/uL Normal 1.45-7.50 [facility] Comment on above: Order Comment: Speci men Type: BLOOD SPECIMEN Ordering Facility: [facility] Address: [address] [place] [address] Performed By: #### 5 7021-8, 98627-6 #### [facility] CLIA [id number] [address] [place] [address] [place] Neutrophils/100 WBC (Bld) 57.0 % Normal [facility] Comment on above: Order Comment: Speci men Type: BLOOD SPECIMEN Ordering Facility: [facility] Address: [address] [place] [address] Performed By: #### 5 7021-8, 83246-7 #### [facility] CLIA [id number] [address] [place] [address] [place] Nucleated RBC (Bld) [#/Vol] 10*3/uL Normal <0.01 [facility] Comment on above: Order Comment: Speci men Type: BLOOD SPECIMEN Ordering Facility: [facility] Address: [address] [address] Performed By: #### 5 7021-8, 67645-3 #### [facility] CLIA [id number] [address] [place] [address] [place] Nucleated RBC/100 WBC (Bld) [Ratio] 0.0 /100 WBC Normal [facility] Comment on above: Order Comment: Speci men Type: BLOOD SPECIMEN Ordering Facility: [facility] Address: [address] Performed By: #### 5 7021-8, 35804-6 #### [facility] CLIA [id number] [address] [place] [address] [place] Platelet mean volume (Bld) [Entitic vol] 10.4 fL Normal 9.0-12.7 [facility] Comment on above: Order Comment: Speci men Type: BLOOD SPECIMEN Ordering Facility: [facility] Address: [address] Performed By: #### 5 7021-8, 86728-4 #### [facility] CLIA [id number] [address] [place] [address] [place] Platelets (Bld) [#/Vol] 204 10*3/uL Normal 150-400 [facility] Comment on above: Order Comment: Speci men Type: BLOOD SPECIMEN Ordering Facility: [facility] Address: [address] Performed By: #### 5 7021-8, 15277-8 #### [facility] CLIA [id number] [address] [place] [address] [place] RBC (Bld) [#/Vol] 4.18 10*6/uL Low 4.20-6.00 [facility] Comment on above: Order Comment: Speci men Type: BLOOD SPECIMEN Ordering Facility: [facility] Address: [address] Performed By: #### 5 7021-8, 80959-9 #### [facility] CLIA [id number] [address] [place] [id number] [place] WBC (Bld) [#/Vol] 6.75 10*3/uL Normal 3.70-11.00 [facility] Comment on above: Order Comment: Speci men Type: BLOOD SPECIMEN Ordering Facility: [facility] Address: [place] [address] Performed By: #### 5 7021-8, 08493-6 #### [facility] CLIA [id number] [address] [place] [id number] [facility] CONSULTon 04-04-2023 CONSULT HNO ID: [id number] Author: Ernie Alexis APRN.CNP Service: Trauma Author [...] small left (more content not included)... Normal [facility] THERAPY NTon 04-04-2023 THERAPY NT HNO ID: [id number] Author: Peng Kaminski OTR/L Service: Occupational Therapy Author Type: Occupational Therapist Type: Therapy (PT/OT/Speech/Resp) Filed: 04/04/2023 11:50 AM Note Text: Occupational Therapy Evaluation SERVICE DATE: 04/04/2023 SERVICE TIME: 1100 to 1131 ROOM: [place] [address] Recommended Discharge Disposition: Acute Rehab Recommended Discharge [...] assessed 2/2 pr (more content not included)... [facility] THERAPY NT HNO ID: [id number] Author: Milagro Nevarez, PT Service: Physical Therapy Author Type: Physical Therapist Type: Therapy (PT/OT/Speech/Resp) Filed: 04/04/2023 10:11 AM Note Text: Physical Therapy Evaluation SERVICE DATE: 04/04/2023 SERVICE TIME: 904 ROOM: [id number] Recommended Discharge Disposition: Acute Rehab Recommended Discharge [...] on feet Interventions Provided: Evaluation, Gait Training (61911), Therapeutic Activity (89207) $ Evaluation-Moderate (62897) Billed Units: 1 unit Therapeutic Activity (92271) Treatment Minutes: 15 $ Therapeutic Activity (33772) Billed Units: 1 unit Gait Training (34138) Treatment Minutes: 10 $ Gait Training (97347) Billed Units: 1 unit Training AND Education Provided in: Bed Mobility, Equipment, Home Safety, Transfers, Role of Physical Therapy, Pre-gait Activities, Precautions/Restricti ons, Positioning The Following Therapeutic Skills Were Used: Activity Dosing, Cues for Sequencin (more content not included)... Normal [facility] XR CHEST 2V FRONTAL/LATon XR CHEST [...] Findings compatible with small left apical pneumothorax. Aviation Electronics Technician: TIANA Transcribe Date/Time: Apr 04 2023 1:10P Dictated by : JANET OLIVEIRA MD This examination was interpreted and the report reviewed and electronically signed by: JANET OLIVEIRA MD on Apr 04 2023 1:13PM EST [id number] [facility] CONSULTon 04-03-2023 CONSULT HNO ID: [id number] Author: Anson Prater DO Service: Neurology General Author Type: Physician Type: Consults Filed: 04/03/2023 2:31 PM Note Text: INITIAL CONSULT - GENERAL NEUROLOGY SERVICE DATE: 04/03/2023 Current Attending Provider: Walter Chávez MD Reason for Evaluation: Left arm incoordination HPI: This is Mr. Sergo Jacobs a 88 year old male who presented to the [facility] left arm incoordination. He states he was walking on the [place] his left arm felt uncoordinated is able [...] Take 1 capsule by mouth once daily. [employer] OTC PRODUCT Yes No Sig: Liver md [...] 4 gram packet Yes No Sig: prn g-dpzzwfpqs-pepmtmkt root extract-aloe leaf extract (GLUTAGENICS) 8286-926-10mo powder No Yes Sig: Mix one teaspoon [...] Last Administration Doses (more content not included)... [facility] CONSULT HNO ID: [id number] Author: Koki Knapp APRN.LOCKER ROOM ATTENDANT Service: Neurology Stroke Author Type: Nurse Practitioner Type: Consults Filed: 04/03/2023 11:01 AM Note Text: Golf Ball Cover Treater Note SERVICE DATE: 04/03/2023 SERVICE TIME: 8:51 [...] twice daily., Disp: 180 tablet, Rfl: 3 u-pyoqiqvuk-kwdqtqox root extract-aloe leaf extract (GLUTAGENICS) 2457-854-25az powder, Mix one teaspoon (4.33 g) with [...] ORAL q 4 H PRN Gaby Carrillo SEXUAL HEALTH PHYSICIAN.LOCKER ROOM ATTENDANT 650 mg at 04/03/23 0201 - amLODIPine 5 mg tab(s) (NORVASC) 5 mg ORAL DAILY Feroz Dasilva MD 5 mg at 04/02/23 0857 - metoprolol tartrate (short acting) 50 mg tab(s) (LOPRESSOR) 50 mg ORAL BID Feroz Dasilva MD 50 mg at 04/02/236 (more content not included)... Normal [facility] ECHOon 04-03-2023 Echocardiography Echocardiography Report: Transthoracic Echo [facility] Date of service: 04/03/2023 1:11:15 PM Ordering physician: KOKI KNAPP Indication: Stroke Technologist: Senait Thomason [facility] Interpreting physician: Carley Givens MD PATIENT: Name: [...] * * * Final * * * Possible Web Medical Image : [id number] Normal [facility] MRI BRAIN WO/W IVCONon 04-03 MRI BRAIN WO/W IVCON * * *Final Report* * * DATE OF EXAM: Apr 03 2023 4:34PM [facility] 0295 - MRI BRAIN WO/W IVCON / [...] hemorrhage. Subacute and chronic infarcts as described. Aviation Electronics Technician: [facility] SYSTEMCasandra Transcribe Date/Time: Apr 03 2023 4:37P Dictated by : IRVIN YUSUF MD This examination was interpreted and the report reviewed and electronically signed by: IRVIN YUSUF MD on Apr 03 2023 4:45PM EST [id number] [facility] XR RIB/CHST 3V AP RIB/OBL/CH [facility] [...] patient's clinician at the time of interpretation. Aviation Electronics Technician: PSCB Transcribe Date/Time: Apr 04 2023 7:50A Dictated by : JANET OLIVEIRA MD This examination was interpreted and the report reviewed and electronically signed by: JANET OLIVEIRA MD on Apr 04 2023 7:54AM EST [id number] Normal [facility] Comprehensive metabolic 2000 panelon 04-02-2023 Albumin [Mass/Vol] 3.5 g/dL Normal 3.2-5.0 [facility] Comment on above: Order Comment: Specjacki graham Type: BLOOD SPECIMENOrdering Facility: [facility] Address: [address] [address] Performed By: #### 2 4323-8 ####[facility] [id number] [place] [address] [place] ALP [Catalytic activity/Vol] 76 U/L Normal 45-117 [facility] Comment on above: Order Comment: Shani graham Type: BLOOD SPECIMENOrdering Facility: [facility] Address: [address] [id number] Performed By: #### 2 4323-8 ####[facility] [id number] [place] [address] [place] ALT [Catalytic activity/Vol] 12 U/L Low 13-61 [facility] Comment on above: Order Comment: Jenai santos Type: BLOOD SPECIMENOrdering Facility: [facility] Address: [address] [address] Result Comment: Resu lts may be falsely depressed after the administration of Sulfasalazine and/or Sulfapyridine. Performed By: #### 2 4323-8 ####[facility] [id number] [place] [address] [place] Anion gap [Moles/Vol] 10 mmol/L Normal 5-16 [facility] Comment on above: Order Comment: Speci men Type: BLOOD SPECIMENOrdering Facility: [facility] Address: [address] [place] [address] Performed By: #### 2 4323-8 ####[facility] [id number] [place] [address] [place] AST [Catalytic activity/Vol] 13 U/L Normal 8-34 [facility] Comment on above: Order Comment: Speci men Type: BLOOD SPECIMENOrdering Facility: [facility] Address: [address] [place] [address] Result Comment: Resu lts may be falsely depressed after the administration of Sulfasalazine and/or Sulfapyridine. Performed By: #### 2 4323-8 ####[facility] [id number] [place] [address] [place] Bilirubin [Mass/Vol] 1.1 mg/dL High 0.2-1.0 [facility] Comment on above: Order Comment: Speci men Type: BLOOD SPECIMENOrdering Facility: [facility] Address: [address] [place] [address] Performed By: #### 2 4323-8 ####[facility]IA [id number] [place] [address] [place] Calcium [Mass/Vol] 9.3 mg/dL Normal 8.5-10.5 [facility] Comment on above: Order Comment: Speci men Type: BLOOD SPECIMENOrdering Facility: [facility] Address: [address] [place] [address] Performed By: #### 2 4323-8 ####[facility]ORY[facility]IA [id number] [place] [address] [place] Chloride [Moles/Vol] 103 mmol/L Normal 98-107 [facility] Comment on above: Order Comment: Jenai men Type: BLOOD SPECIMENOrdering Facility: [facility] Address: [address] [address] Performed By: #### 2 4323-8 ####[facility]ORY[facility]IA [id number] [place] [address] [place] CO2 [Moles/Vol] 25 mmol/L Normal 21-32 [facility] Comment on above: Order Comment: Speci men Type: BLOOD SPECIMENOrdering Facility: [facility] Address: [address] [address] Performed By: #### 2 4323-8 ####[facility]ORY[facility]IA [id number] [place] [address] [place] Creatinine [Mass/Vol] 1.11 mg/dL Normal 0.50-1.40 [facility] Comment on above: Order Comment: Jenai men Type: BLOOD SPECIMENOrdering Facility: [facility] Address: [address] [place] [address] Result Comment: Pam ents receiving either N-Acetylcysteine (NAC) or Metamizole prior to venipuncture, may have falsely depressed results. Performed By: #### 2 4323-8 ####[facility]ORYCLIA [id number] [place] [address] [place] ESTIMATED GLOMERULAR FILTRATION RATE 65 mL/min/1.73m??? Normal >=60 [facility] Comment on above: Order Comment: Shani santos Type: BLOOD SPECIMENOrdering Facility: [facility] Address: [address] [address] Result Comment: Raquel mated Glomerular Filtration Rate [...] actual GFR. Performed By: #### 2 4323-8 ####[facility]ORYCLIA [id number] [place] [address] [place] Glucose [Mass/Vol] 101 mg/dL High 70-100 [facility] Comment on above: Order Comment: Speci men Type: BLOOD SPECIMENOrdering Facility: [facility] Address: [address] [place] [address] Result Comment: The [place] Diabetes Association (ADA) provides guidance for cutoff [...] Standards of Medical Care in Diabetes 2016, [place] [employer]. Diabetes Care. 2016.39(Suppl 1). Results may be falsely elevated after the administration of Sulfapyridine. Results may be falsely depressed after the administration of Sulfasalazine. Performed By: #### 2 4323-8 ####[facility]ORYCLIA [id number] [place] [address] [place] Potassium [Moles/Vol] 4.2 mmol/L Normal 3.5-5.1 [facility] Comment on above: Order Comment: Speci men Type: BLOOD SPECIMENOrdering Facility: [facility] Address: [address] [address] Performed By: #### 2 4323-8 ####[facility]ORYCLIA [id number] [place] [address] [place] Protein [Mass/Vol] 6.6 g/dL Normal 6.0-8.5 [facility] Comment on above: Order Comment: Speci men Type: BLOOD SPECIMENOrdering Facility: [facility] Address: [address] [place] [address] Performed By: #### 2 4323-8 ####[facility]ORYCLIA [id number] [address] [place] [facility] Sodium [Moles/Vol] 138 mmol/L Normal 136-145 [facility] Comment on above: Order Comment: Speci men Type: BLOOD SPECIMENOrdering Facility: [facility] Address: [address] [place] [address] Performed By: #### 2 4323-8 ####[facility]ORYCLIA [id number] [place] [address] [place] Urea nitrogen [Mass/Vol] 17 mg/dL Normal 7-26 [facility] Comment on above: Order Comment: Speci men Type: BLOOD SPECIMENOrdering Facility: [facility] Address: [address] [place] [address] Performed By: #### 2 4323-8 ####[facility]ORYCLIA [id number] [place] [address] [place] CBC W Auto Differential pane l (Bld)on 04-01-2023 Basophils (Bld) [#/Vol] 0.03 10*3/uL Normal <0.11 [facility] Comment on above: Order Comment: Speci men Type: BLOOD SPECIMEN Ordering Facility: [facility] Address: [address] [place] [address] Performed By: #### 5 7021-8, 69947-5 #### [facility] CLIA [id number] [address] [place] [address] [place] Basophils/100 WBC (Bld) 0.6 % Normal [facility] Comment on above: Order Comment: Speci men Type: BLOOD SPECIMEN Ordering Facility: [facility] Address: [address] [place] [address] Performed By: #### 5 7021-8, 49867-8 #### [facility] CLIA [id number] [address] [place] [address] [place] Differential cell count method Nom (Bld) Auto Normal [facility] Comment on above: Order Comment: Speci men Type: BLOOD SPECIMEN Ordering Facility: [facility] Address: [address] [address] Performed By: #### 5 7021-8, 50381-0 #### [facility] CLIA [id number] [address] [place] [address] [place] Eosinophils (Bld) [#/Vol] 0.61 10*3/uL High <0.46 [facility] Comment on above: Order Comment: Speci men Type: BLOOD SPECIMEN Ordering Facility: [facility] Address: [address] [address] Performed By: #### 5 7021-8, 07214-1 #### [facility] CLIA [id number] [address] [place] [address] [place] Eosinophils/100 WBC (Bld) 12.4 % Normal [facility] Comment on above: Order Comment: Speci men Type: BLOOD SPECIMEN Ordering Facility: [facility] Address: [address] [address] Performed By: #### 5 7021-8, 56480-4 #### [facility] CLIA [id number] [address] [place] [address] [place] Erythrocyte distribution width (RBC) [Ratio] 14.9 % Normal 11.5-15.0 [facility] Comment on above: Order Comment: Speci men Type: BLOOD SPECIMEN Ordering Facility: [facility] Address: [address] Performed By: #### 5 7021-8, 40387-3 #### [facility] CLIA [id number] [address] [place] [address] [place] Hematocrit (Bld) [Volume fraction] 36.9 % Low 39.0-51.0 [facility] Comment on above: Order Comment: Speci men Type: BLOOD SPECIMEN Ordering Facility: [facility] Address: [address] Performed By: #### 5 7021-8, 80908-8 #### [facility] CLIA [id number] [address] [place] [address] [place] Hemoglobin (Bld) [Mass/Vol] 12.4 g/dL Low 13.0-17.0 [facility] Comment on above: Order Comment: Speci men Type: BLOOD SPECIMEN Ordering Facility: [facility] Address: [address] [place] [address] Performed By: #### 5 7021-8, 60440-0 #### [facility] CLIA [id number] [address] [place] [address] [place] Immature granulocytes (Bld) [#/Vol] 10*3/uL Normal <0.10 [facility] Comment on above: Order Comment: Speci men Type: BLOOD SPECIMEN Ordering Facility: [facility] Address: [address] [place] [address] Performed By: #### 5 7021-8, 96121-7 #### [facility] CLIA [id number] [address] [place] [address] [place] Immature granulocytes/100 WBC (Bld) 0.2 % Normal [facility] Comment on above: Order Comment: Speci men Type: BLOOD SPECIMEN Ordering Facility: [facility] Address: [address] [place] [address] Performed By: #### 5 7021-8, 42317-2 #### [facility] CLIA [id number] [address] [place] [address] [place] Lymphocytes (Bld) [#/Vol] 1.42 10*3/uL Normal 1.00-4.00 [facility] Comment on above: Order Comment: Speci men Type: BLOOD SPECIMEN Ordering Facility: [facility] Address: [address] [place] [address] Performed By: #### 5 7021-8, 23150-5 #### [facility] CLIA [id number] [address] [place] [address] [place] Lymphocytes/100 WBC (Bld) 28.8 % Normal [facility] Comment on above: Order Comment: Speci men Type: BLOOD SPECIMEN Ordering Facility: [facility] Address: [address] [place] [address] Performed By: #### 5 7021-8, 27296-1 #### [facility] CLIA [id number] [address] [place] [address] MCH (RBC) [Entitic mass] 30.2 pg Normal 26.0-34.0 [facility] Comment on above: Order Comment: Speci men Type: BLOOD SPECIMEN Ordering Facility: [facility] Address: [address] [place] [address] Performed By: #### 5 7021-8, 96071-6 #### [facility] CLIA [id number] [address] [place] [address] [place] MCHC (RBC) [Mass/Vol] 33.6 g/dL Normal 30.5-36.0 [facility] Comment on above: Order Comment: Speci men Type: BLOOD SPECIMEN Ordering Facility: [facility] Address: [address] [place] [address] Performed By: #### 5 7021-8, 91108-5 #### [facility] CLIA [id number] [address] [place] [address] [place] MCV (RBC) [Entitic vol] 90.0 fL Normal 80.0-100.0 [facility] Comment on above: Order Comment: Speci men Type: BLOOD SPECIMEN Ordering Facility: [facility] Address: [address] [place] [address] Performed By: #### 5 7021-8, 40668-4 #### [facility] CLIA [id number] [address] [place] [address] Monocytes (Bld) [#/Vol] 0.60 10*3/uL Normal <0.87 [facility] Comment on above: Order Comment: Speci men Type: BLOOD SPECIMEN Ordering Facility: [facility] Address: [address] [place], [place] [address] [address] Performed By: #### 5 7021-8, 09981-2 #### [facility] CLIA [id number] [address] [place] [address] [place] Monocytes/100 WBC (Bld) 12.2 % Normal [facility] Comment on above: Order Comment: Speci men Type: BLOOD SPECIMEN Ordering Facility: [facility] Address: [address] Performed By: #### 5 7021-8, 74010-5 #### [facility] CLIA [id number] [address] [place] [address] [place] Neutrophils (Bld) [#/Vol] 2.26 10*3/uL Normal 1.45-7.50 [facility] Comment on above: Order Comment: Speci men Type: BLOOD SPECIMEN Ordering Facility: [facility] Address: [address] Performed By: #### 5 7021-8, 83067-1 #### [facility] CLIA [id number] [address] [place] [address] [place] Neutrophils/100 WBC (Bld) 45.8 % Normal [facility] Comment on above: Order Comment: Speci men Type: BLOOD SPECIMEN Ordering Facility: [facility] Address: [address] Performed By: #### 5 7021-8, 68237-4 #### [facility] CLIA [id number] [address] [place] [address] [place] Nucleated RBC (Bld) [#/Vol] 10*3/uL Normal <0.01 [facility] Comment on above: Order Comment: Speci men Type: BLOOD SPECIMEN Ordering Facility: [facility] Address: [address] Performed By: #### 5 7021-8, 74002-0 #### [facility] CLIA [id number] [address] [place], [place] [address] [place] Nucleated RBC/100 WBC (Bld) [Ratio] 0.0 /100 WBC Normal [facility] Comment on above: Order Comment: Speci men Type: BLOOD SPECIMEN Ordering Facility: [facility] Address: [address] [place] [address] Performed By: #### 5 7021-8, 76180-0 #### [facility] CLIA [id number] [address] [place] [address] [place] Platelet mean volume (Bld) [Entitic vol] 10.3 fL Normal 9.0-12.7 [facility] Comment on above: Order Comment: Speci men Type: BLOOD SPECIMEN Ordering Facility: [facility] Address: [address] [place] [address] Performed By: #### 5 7021-8, 50473-2 #### [facility] CLIA [id number] [address] [place] [address] [place] Platelets (Bld) [#/Vol] 209 10*3/uL Normal 150-400 [facility] Comment on above: Order Comment: Speci men Type: BLOOD SPECIMEN Ordering Facility: [facility] Address: [address] [place] [address] Performed By: #### 5 7021-8, 00472-9 #### [facility] CLIA [id number] [address] [place] [address] [place] RBC (Bld) [#/Vol] 4.10 10*6/uL Low 4.20-6.00 [facility] Comment on above: Order Comment: Speci men Type: BLOOD SPECIMEN Ordering Facility: [facility] Address: [address] [place] [address] Performed By: #### 5 7021-8, 48958-8 #### [facility] CLIA [id number] [address] [place] [address] [place] WBC (Bld) [#/Vol] 4.93 10*3/uL Normal 3.70-11.00 [facility] Comment on above: Order Comment: Speci men Type: BLOOD SPECIMEN Ordering Facility: [facility] Address: [place] [address] Performed By: #### 5 7021-8, 80971-8 #### [facility] CLIA [id number] [address] [place] [address] [place] [address] BRAIN WO IVCONon 04-01-[address] BRAIN WO IVCON * * *Final Report* * * DATE OF EXAM: Apr 01 2023 5:04PM [facility] 0504 - CT BRAIN WO IVCON / [...] base and imaged soft tissues are unremarkable. Financial Dealers (topogram) images: No additional findings. IMPRESSION: No acute intracranial abnormality. Aviation Electronics Technician: PSCB Transcribe Date/Time: Apr 01 2023 5:39P Dictated by : CHRISTINE ARNOLD MD This examination was interpreted and the report reviewed and electronically signed by: CHRISTINE ARNOLD MD on Apr 01 2023 5:43PM EST [id number] Normal [facility] CTA HEAD W IVCONon 3 CTA HEAD W IVCON * * *Final Report* * * DATE OF EXAM: Apr 01 2023 7:31PM [facility] 0022 - CTA HEAD W IVCON / [...] identified. Major dural venous sinuses are patent. Financial Dealers (topogram) images: Noncontributory. IMPRESSION: No large vessel occlusion or high-grade stenosis. Arterial blood flow was measured to detect acute large vessel occlusion by computer aided detection software: Not Performed. Concordance between software and imaging review: Not Applicable. Aviation Electronics Technician: TIANA Transcribe Date/Time: Apr 01 2023 7:34P Dictated by : ARIN SHI MD This examination was interpreted and the report reviewed and electronically signed by: ARIN SHI MD on Apr 01 2023 8:44PM EST [id number] Normal [facility] CTA NECK W IVCONon 3 CTA NECK W IVCON * * *Final Report* * * DATE OF EXAM: Apr 01 2023 7:31PM [facility] 0024 - CTA NECK W IVCON / [...] identified. Major dural venous sinuses are patent. Financial Dealers (topogram) images: Noncontributory. IMPRESSION: No large vessel occlusion or high-grade stenosis. Arterial blood flow was measured to detect acute large vessel occlusion by computer aided detection software: Not Performed. Concordance between software and imaging review: Not Applicable. Aviation Electronics Technician: PSCB Transcribe Date/Time: Apr 01 2023 7:34P Dictated by : ARIN SHI MD This examination was interpreted and the report reviewed and electronically signed by: ARIN SHI MD on Apr 01 2023 8:44PM EST [id number] Normal [facility] Comprehensive metabolic 2000 panelon 04-01-2023 Albumin [Mass/Vol] 3.4 g/dL Normal 3.2-5.0 [facility] Comment on above: Order Comment: Shani graham Type: BLOOD SPECIMEN Ordering Facility: [facility] Address: [address] [place] [address] Performed By: #### 2 4323-8, 80188-4, 19262-7 #### [facility] CLIA [id number] [address] [place] [address] [place] ALP [Catalytic activity/Vol] 70 U/L Normal 45-117 [facility] Comment on above: Order Comment: Shani graham Type: BLOOD SPECIMEN Ordering Facility: [facility] Address: [address] [place], [place] [address] Performed By: #### 2 4323-8, 15196-5, 02783-5 #### [facility] CLIA [id number] [address] [place] [address] [place] ALT [Catalytic activity/Vol] 12 U/L Low 13-61 [facility] Comment on above: Order Comment: Shani graham Type: BLOOD SPECIMEN Ordering Facility: [facility] Address: [address] [id number] Result Comment: Resu lts may be falsely depressed after the administration of Sulfasalazine and/or Sulfapyridine. Performed By: #### 2 4323-8, , #### [facility] CLIA [id number] [address] [place] [address] [place] Anion gap [Moles/Vol] 6 mmol/L Normal 5-16 [facility] Comment on above: Order Comment: Speci men Type: BLOOD SPECIMEN Ordering Facility: [facility] Address: [address] [place] [address] Performed By: #### 2 4323-8, , #### [facility] CLIA [id number] [address] [id number] [place] AST [Catalytic activity/Vol] 14 U/L Normal 8-34 [facility] Comment on above: Order Comment: Speci men Type: BLOOD SPECIMEN Ordering Facility: [facility] Address: [address] [place] [address] Result Comment: Resu lts may be falsely depressed after the administration of Sulfasalazine and/or Sulfapyridine. Performed By: #### 2 4323-8, , #### [facility] CLIA [id number] [address] [place], [place] [address] [place] Bilirubin [Mass/Vol] 0.7 mg/dL Normal 0.2-1.0 [facility] Comment on above: Order Comment: Speci men Type: BLOOD SPECIMEN Ordering Facility: [facility] Address: [address] [place] [address] Performed By: #### 2 4323-8, , #### [facility] CLIA [id number] [address] [place] [address] [place] Calcium [Mass/Vol] 9.1 mg/dL Normal 8.5-10.5 [facility] Comment on above: Order Comment: Speci men Type: BLOOD SPECIMEN Ordering Facility: [facility] Address: [address] [place] [address] Performed By: #### 2 4323-8, , 36882-1 #### [facility] CLIA [id number] [address] [place] [address] [place] Chloride [Moles/Vol] 104 mmol/L Normal 98-107 [facility] Comment on above: Order Comment: Speci men Type: BLOOD SPECIMEN Ordering Facility: [facility] Address: [address] [place] [address] Performed By: #### 2 4323-8, 31170-9, 44587-0 #### [facility] CLIA [id number] [address] [place] [address] [place] CO2 [Moles/Vol] 29 mmol/L Normal 21-32 [facility] Comment on above: Order Comment: Speci men Type: BLOOD SPECIMEN Ordering Facility: [facility] Address: [address] [place] [address] Performed By: #### 2 4323-8, , 02555-0 #### [facility] CLIA [id number] [address] [place] [address] [place] Creatinine [Mass/Vol] 1.31 mg/dL Normal 0.50-1.40 [facility] Comment on above: Order Comment: Speci men Type: BLOOD SPECIMEN Ordering Facility: [facility] Address: [address] [place] [address] Result Comment: Pam ents receiving either N-Acetylcysteine (NAC) or Metamizole prior to venipuncture, may have falsely depressed results. Performed By: #### 2 4323-8, 94445-1, 48687-4 #### [facility] CLIA [id number] [address] [place] [address] [place] ESTIMATED GLOMERULAR FILTRATION RATE 53 mL/min/1.73m??? Low >=60 [facility] Comment on above: Order Comment: Speci men Type: BLOOD SPECIMEN Ordering Facility: [facility] Address: [address] [place] [address] Result Comment: Raquel mated Glomerular Filtration Rate [...] actual GFR. Performed By: #### 2 4323-8, 58643-6, 97467-1 #### [facility] CLIA [id number] [address] [place], [place] [address] [place] Glucose [Mass/Vol] 97 mg/dL Normal 70-100 [facility] Comment on above: Order Comment: Shani graham Type: BLOOD SPECIMEN Ordering Facility: [facility] Address: [address] [place], [place] [phone] Result Comment: The [place] Diabetes Association (ADA) provides guidance for cutoff [...] Standards of Medical Care in Diabetes 2016, [place] Diabetes Association. Diabetes Care. 2016.39(Suppl 1). Results may be falsely elevated after the administration of Sulfapyridine. Results may be falsely depressed after the administration of Sulfasalazine. Performed By: #### 2 4323-8, , 99568-4 #### [facility] CLIA [id number] [address] [place], [place] [address] [place] Potassium [Moles/Vol] 4.4 mmol/L Normal 3.5-5.1 [facility] Comment on above: Order Comment: Shnai graham Type: BLOOD SPECIMEN Ordering Facility: [facility] Address: [address] [place] [address] Performed By: #### 2 4323-8, 27991-7, 35944-6 #### [facility] CLIA [id number] [address] [place] [address] [place] Protein [Mass/Vol] 6.6 g/dL Normal 6.0-8.5 [facility] Comment on above: Order Comment: Shani graham Type: BLOOD SPECIMEN Ordering Facility: [facility] Address: [address] [place], [place] [address] Performed By: #### 2 4323-8, 41504-6, 56297-7 #### [facility] CLIA [id number] [address] [place] [address] [place] Sodium [Moles/Vol] 139 mmol/L Normal 136-145 [facility] Comment on above: Order Comment: Jenai santos Type: BLOOD SPECIMEN Ordering Facility: [facility] Address: [address] [place] [address] Performed By: #### 2 4323-8, 69204-8, 28021-9 #### [facility] CLIA [id number] [address] [place] [address] [place] Urea nitrogen [Mass/Vol] 21 mg/dL Normal 7-26 [facility] Comment on above: Order Comment: Jenai santos Type: BLOOD SPECIMEN Ordering Facility: [facility] Address: [address] [place] [address] Performed By: #### 2 4323-8, , 31721-5 #### [facility] CLIA [id number] [address] [place], [place] [address] [facility] [place] ED NOTEon 04-01-2023 ED NOTE HNO ID: [id number] Author: Sahra Lu RN Service: Nursing Author [...] and oriented x 4 and calm/cooperative. Normal [facility] ED NOTE HNO ID: [id number] Author: Carine Colorado RN Service: ? Author Type: Registered Nurse Type: ED Notes Filed: 04/01/2023 3:23 PM Note Text: Pt states was out walking with and left hand became . states patient was having trouble working his left hand. Symptoms resolved at this time. Was able to walk the mile back to where they started, no facial drooping or slurred speech. Normal [facility] ED PROV NOTEon 04-01-2023 ED PROV NOTE HNO ID: [id number] Author: Olaf Ramirez MD Service: Emergency Medicine [...] - Normal (more content not included)... Normal [facility] ED Triage Noteon 04-01-2023 ED Triage Note HNO ID: [id number] Author: Gus Carbone PA-C Service: ? 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 No other weakness, they actually walked a mile to get back to the car. He is asymptomatic at this time BRIEF EXAM: Alert, oriented, answering questions appropriately. No focal deficit or weakness, strong power plant operator strength INTAKE WORKUP: TIA work-up SIGNATURE: Gus Carbone PA-C [facility] HIGH SENSITIVITY TROPONIN Io n 04-01-2023 Tropinin I.cardiac panel High sensitivity method 4.2 pg/mL Normal 0.0-54.0 [facility] Comment on above: Order Comment: Speci men Type: BLOOD SPECIMEN Ordering Facility: [facility] Address: [address] [place] [address] Result Comment: This assay uses different antibodies than our current assay, and assays, even by the same rehab office coordinator may recognize different regions of the antibody and cannot be used interchangeably. Expect results of this assay to run higher than the previous assay. 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 Normal [facility] HbA1c (Bld)on 04-01-2023 Average glucose Estimated from glycated hemoglobin (Bld) [Mass/Vol] 134 mg/dL Normal [facility] Comment on above: Order Comment: Shani graham Type: BLOOD SPECIMEN Ordering Facility: [facility] Address: [address] [place] [address] Result Comment: eAG: (Estimated average glucose) is a calculated value from HgbA1c and is retail service representative of the average blood glucose level in the last 2-3 month period. Performed By: #### 5 7021-8, 40847-4 #### [facility] CLIA [id number] [address] [place] [address] [place] HbA1c (Bld) [Mass fraction] 6.3 % High 4.3-6.0 [facility] Comment on above: Order Comment: Shani graham Type: BLOOD SPECIMEN Ordering Facility: [facility] Address: [address] [place] [address] Result Comment: Amer [place] Diabetes Association guidelines indicate that patients with HgbA1c in the range 5.7-6.4% are at increased risk for development of diabetes, and intervention by lifestyle modification may be beneficial. HgbA1c greater or equal to 6.5% is considered diagnostic of diabetes. Performed By: #### 5 7021-8, 09399-3 #### [facility] CLIA [id number] [address] [place] [address] [place] Lipid 1996 panelon 3 Cholesterol [Mass/Vol] 146 mg/dL Normal 0-199 [facility] Comment on above: Order Comment: Speci men Type: BLOOD SPECIMEN Ordering Facility: [facility] Address: [address] [place] [address] Result Comment: <200 mg/dL, Desirable 200-239 mg/dL, Borderline high >239 mg/dL, High Performed By: #### 2 4323-8, 01807-1, 81537-8 #### [facility] CLIA [id number] [address] [place] [address] [place] Cholesterol in HDL [Mass/Vol] 40 mg/dL Low >40 [facility] Comment on above: Order Comment: Speci [facility] Type: BLOOD SPECIMEN Ordering Facility: [facility] Address: [address] [place] [address] Result Comment: 40-5 9 mg/dL, Acceptable >59 mg/dL, High: Negative risk factor for coronary heart disease <40 mg/dL, Low: Positive risk factor for coronary heart disease Performed By: #### 2 4323-8, , 04008-3 #### [facility] CLIA [id number] [address] [place] [address] Cholesterol in LDL [Mass/Vol] 96 mg/dL Normal 0-129 [facility] Comment on above: Order Comment: Speci men Type: BLOOD SPECIMEN Ordering Facility: [facility] Address: [address] [place] [address] Result Comment: <100 mg/dL, Optimal 100-129 mg/dL, Near optimal/above optimal 130-159 mg/dL, Borderline high 160-189 mg/dL, High >189 mg/dL, Very high Secondary prevention optimal LDL Cholesterol levels are recommended to be < 70 mg/dL Performed By: #### 2 4323-8, 09604-8, 20349-5 #### [facility] CLIA [id number] [address] [place] [address] [place] Cholesterol in LDL/Cholesterol in HDL [Mass ratio] 2.40 {ratio} Normal <2.54 [facility] Comment on above: Order Comment: Shani santos Type: BLOOD SPECIMEN Ordering Facility: [facility] Address: [address] [place] [address] Result Comment: Refe rence: 1. National Cholesterol Education Program ATP III Guideline At-A-Glance Quick Desk Reference: National Heart, Lung, and Blood [place]. National Institutes of Health. 2001: NIH Publication No. 01-3305. 2. An International Atherosclerosis Society position paper: global recommendations for the management of dyslipidemia: executive summary, Atherosclerosis. 2014: 232(2):410-413. Performed By: #### 2 4323-8, , #### [facility] CLIA [id number] [address] [place] [address] Cholesterol in VLDL [Mass/Vol] 10 mg/dL Normal <30 [facility] Comment on above: Order Comment: Shani santos Type: BLOOD SPECIMEN Ordering Facility: [facility] Address: [address] [place] [address] Performed By: #### 2 4323-8, , #### [facility] CLIA [id number] [address] [place] [address] Cholesterol non HDL [Mass/Vol] 106 mg/dL Normal <130 [facility] Comment on above: Order Comment: Jenajacki graham Type: BLOOD SPECIMEN Ordering Facility: [facility] Address: [address] [place] [address] Result Comment: <130 mg/dL, Optimal 130-159 mg/dL, Near optimal/above optimal 160-189 mg/dL, Borderline high 190-219 mg/dL, High >219 mg/dL, Very high Secondary prevention optimal non HDL Cholesterol levels are recommended to be <100 mg/dL Performed By: #### 2 4323-8, , 95775-1 #### [facility] CLIA [id number] [address] [place], [place] [id number] [facility] Cholesterol.total/Cho lesterol in HDL [Mass ratio] 3.65 {ratio} Normal <5.10 [facility] Comment on above: Order Comment: Speci men Type: BLOOD SPECIMEN Ordering Facility: [facility] Address: [address] [place] [address] Performed By: #### 2 4323-8, , #### [facility] CLIA [id number] [address] [place] [address] [place] FASTING TIME Normal [facility] Comment on above: Order Comment: Speci men Type: BLOOD SPECIMEN Ordering Facility: [facility] Address: [address] [place] [address] Result Comment: Unkn own Performed By: #### 2 4323-8, , #### [facility] CLIA [id number] [address] [place] [address] [place] Triglyceride [Mass/Vol] 50 mg/dL Normal 30-149 [facility] Comment on above: Order Comment: Speci men Type: BLOOD SPECIMEN Ordering Facility: [facility] Address: [address] [place] [address] Result Comment: <150 mg/dL, Normal 150-199 mg/dL, Borderline high 200-499 mg/dL, High >499 mg/dL, Very high Patients receiving either N-Acetylcysteine (NAC) or Metamizole prior to venipuncture, may have falsely depressed results. Performed By: #### 2 4323-8, , #### [facility] CLIA [id number] [address] [place] [address] [place] Magnesium SerPl-mCncon 04-01 Magnesium [Mass/Vol] 1.9 mg/dL Normal 1.6-2.6 [facility] Comment on above: Order Comment: Speci men Type: BLOOD SPECIMEN Ordering Facility: [facility] Address: [address] [place] [address] Performed By: #### 2 4323-8, , #### [facility] CLIA [id number] [address] [place], [place] [id number] [place] PT panel Coag (PPP)on 2022 INR Coag (PPP) [Relative time] 1.0 {INR} Normal 0.9-1.3 [facility] Comment on above: Order Comment: Shani graham Type: BLOOD SPECIMEN Ordering Facility: [facility] Address: [address] [place], [place] [id number] Result Comment: Arthur min K Antagonist (VKA) Therapeutic Range: INR 2 to 3 (Target INR of 2.5) Note: For patients treated with VKA drugs, such as warfarin, the [employer] 2012 Guideline recommends [...] Chest 2012, 141:7S-47S Jorge RA, et al. [facility] 2017, 70: 252-289 Performed By: #### 3 4528-0 #### [facility] CLIA [id number] [address] [place] [address] [place] PT Coag (PPP) [Time] 10.0 s Normal 9.7-13.0 [facility] Comment on above: Order Comment: Shani graham Type: BLOOD SPECIMEN Ordering Facility: [facility] Address: [place] [address] Performed By: #### 3 4528-0 #### [facility] CLIA [id number] [address] [place], [place] [address] [place] CBC W Auto Differential pane l (Bld)on 08-08-2022 Basophils (Bld) [#/Vol] 0.03 10*3/uL <0.11 k/uL [facility] Basophils/100 WBC (Bld) 0.5 % [facility] Differential cell count method Nom (Bld) Auto [facility] Eosinophils (Bld) [#/Vol] 0.30 10*3/uL <0.46 k/uL [facility] Eosinophils/100 WBC (Bld) 5.5 % [facility] Erythrocyte distribution width (RBC) [Ratio] 14.3 % 11.5 - 15.0 % [facility] Hematocrit (Bld) [Volume fraction] 43.8 % 39.0 - 51.0 % [facility] Hemoglobin (Bld) [Mass/Vol] 14.2 g/dL 13.0 - 17.0 g/dL [facility] Immature granulocytes (Bld) [#/Vol] <0.10 k/uL [facility] Immature granulocytes/100 WBC (Bld) 0.2 % [facility] Lymphocytes (Bld) [#/Vol] 1.60 10*3/uL 1.00 - 4.00 k/uL [facility] Lymphocytes/100 WBC (Bld) 29.1 % [facility] MCH (RBC) [Entitic mass] 29.7 pg 26.0 - 34.0 pg [facility] MCHC (RBC) [Mass/Vol] 32.4 g/dL 30.5 - 36.0 g/dL [facility] MCV (RBC) [Entitic vol] 91.6 fL 80.0 - 100.0 fL [facility] Monocytes (Bld) [#/Vol] 0.56 10*3/uL <0.87 k/uL [facility] Monocytes/100 WBC (Bld) 10.2 % [facility] Neutrophils (Bld) [#/Vol] 2.99 10*3/uL 1.45 - 7.50 k/uL [facility] Neutrophils/100 WBC (Bld) 54.5 % [facility] Nucleated RBC (Bld) [#/Vol] <0.01 k/uL [facility] Nucleated RBC/100 WBC (Bld) [Ratio] 0.0 /100 WBC [facility] Platelet mean volume (Bld) [Entitic vol] 11.8 fL 9.0 - 12.7 fL [facility] Platelets (Bld) [#/Vol] 226 10*3/uL 150 - 400 k/uL [facility] RBC (Bld) [#/Vol] 4.78 10*6/uL 4.20 - 6.0 0 m/uL [facility] WBC (Bld) [#/Vol] 5.49 10*3/uL 3.70 - 11. 00 k/uL [facility] XR ABDOMEN 3V KUB W/OBLIQUES on 02-14-2022 [facility] CBC W Auto Differential pane l (Bld)on 01-28-2022 Abs Immature Gran <0.03 <0.10 k/uL [facility] Basophils (Bld) [#/Vol] 0.05 10*3/uL <0.11 k/uL [facility] Basophils/100 WBC (Bld) 0.7 % [facility] Differential cell count method Nom (Bld) Auto [facility] Eosinophils (Bld) [#/Vol] 0.75 10*3/uL High <0.46 k/uL [facility] Eosinophils/100 WBC (Bld) 10.9 % [facility] Erythrocyte distribution width (RBC) [Ratio] 14.3 % 11.5 - 15.0 % [facility] Hematocrit (Bld) [Volume fraction] 38.8 % Low 39.0 - 51.0 % [facility] Hemoglobin (Bld) [Mass/Vol] 12.5 g/dL Low 13.0 - 17.0 g/dL [facility] Immature Gran % 0.3 % [facility] Lymphocytes (Bld) [#/Vol] 1.64 10*3/uL 1.00 - 4.00 k/uL [facility] Lymphocytes/100 WBC (Bld) 23.8 % [facility] MCH (RBC) [Entitic mass] 29.9 pg 26.0 - 34.0 pg [facility] MCHC (RBC) [Mass/Vol] 32.2 g/dL 30.5 - 36.0 g/dL [facility] MCV (RBC) [Entitic vol] 92.8 fL 80.0 - 100.0 fL [facility] Monocytes (Bld) [#/Vol] 0.81 10*3/uL <0.87 k/uL [facility] Monocytes/100 WBC (Bld) 11.8 % [facility] Neutrophils (Bld) [#/Vol] 3.61 10*3/uL 1.45 - 7.50 k/uL [facility] Neutrophils/100 WBC (Bld) 52.5 % [facility] Nucleated RBC (Bld) [#/Vol] 10*3/uL <0.01 k/uL [facility] Nucleated RBC/100 WBC (Bld) [Ratio] 0.0 /100 WBC [facility] Platelet mean volume (Bld) [Entitic vol] 11.7 fL 9.0 - 12.7 fL [facility] Platelets (Bld) [#/Vol] 233 10*3/uL 150 - 400 k/uL [facility] RBC (Bld) [#/Vol] 4.18 10*6/uL Low 4.20 - 6.0 0 m/uL [facility] WBC (Bld) [#/Vol] 6.88 10*3/uL 3.70 - 11. 00 k/uL [facility] Comprehensive metabolic 2000 panelon 01-28-2022 Albumin [Mass/Vol] 3.8 g/dL Low 3.9 - 4.9 g/dL Cl [facility] ALP [Catalytic activity/Vol] 69 U/L 38 - 113 U/L [facility] ALT [Catalytic activity/Vol] 14 U/L 10 - 54 U/L [facility] Anion gap [Moles/Vol] 12 mmol/L 9 - 18 mmol/L [facility] AST [Catalytic activity/Vol] 15 U/L 14 - 40 U/L [facility] Bilirubin [Mass/Vol] 0.5 mg/dL 0.2 - 1 .3 mg/dL [facility] Calcium [Mass/Vol] 9.0 mg/dL 8.5 - 10. 2 mg/dL [facility] Chloride [Moles/Vol] 103 mmol/L 97 - 10 5 mmol/L [facility] CO2 [Moles/Vol] 21 mmol/L Low 22 - 30 mmol/L [facility] Creatinine [Mass/Vol] 1.26 mg/dL High 0.73 - 1.22 mg/dL [facility] Estimated Glomerular Filtration Rate 56 mL/min/1.73m Low >=60 mL/min/1.73m [facility] Glucose [Mass/Vol] 131 mg/dL High 74 - 99 mg/dL [facility] Potassium [Moles/Vol] 4.7 mmol/L 3.7 - 5.1 mmol/L [facility] Protein [Mass/Vol] 6.8 g/dL 6.3 - 8.0 g/dL Cl [facility] Sodium [Moles/Vol] 136 mmol/L 136 - 144 mmol/L [facility] Urea nitrogen [Mass/Vol] 22 mg/dL 9 - 24 mg/dL [facility] HGB A1Con 01-28-2022 Average glucose Estimated from glycated hemoglobin (Bld) [Mass/Vol] 128 mg/dL [facility] HbA1c (Bld) [Mass fraction] 6.1 % High 4.3 - 5.6 % [facility] VITAMIN B12 BLOODon 01-29-20 Cobalamin (Vitamin B12) [Mass/Vol] pg/mL High 232-1,245 pg/mL [facility] BMPon 05-14-2021 Anion gap [Moles/Vol] 3 mmol/L Low 5-16 [facility] Comment on above: Order Comment: Campu s: M Performed By: #### L 550.63983 #### [facility] [place] [address] Calcium [Mass/Vol] 8.2 mg/dL Low 8.5-10.5 [facility] Comment on above: Order Comment: Campu s: M Result Comment: NOTE NEW NORMAL RANGE DUE TO REAGENT CHANGE Performed By: #### L 550.22222 #### [facility] [place] [address] Chloride [Moles/Vol] 109 mmol/L High 98-107 [facility] Comment on above: Order Comment: Campu s: M Performed By: #### L 550.85483 #### [facility] [place] [address] CO2 [Moles/Vol] 28.0 mmol/L Normal 21-32 [facility] Comment on above: Order Comment: Campu s: M Performed By: #### L 550.62042 #### [facility] [address] [place] [address] Creatinine [Mass/Vol] 1.20 mg/dL Normal 0.5-1.4 [facility] Comment on above: Order Comment: Campu s: M Result Comment: NOTE NEW NORMAL RANGE DUE TO REAGENT CHANGE Patients receiving either N-Acetylcysteine (NAC) or Metamizole prior to venipuncture, may have falsely depressed results. Performed By: #### L 550.43713 #### [facility] [place] [address] Glucose [Mass/Vol] 102 mg/dL High 70-100 [facility] Comment on above: Order Comment: Campu s: M Result Comment: 70-1 00- Normal Fasting; 100-125 Impaired Fasting; greater than 126 on more than one result- Diabetes. ADA guidelines. Results may be falsely elevated after the administration of Sulfapyridine. Results may be falsely depressed after the administration of Sulfasalazine. Performed By: #### L 550.01245 #### [facility] [address] [place] [address] Potassium [Moles/Vol] 3.8 mmol/L Normal 3.5-5.1 [facility] Comment on above: Order Comment: Campu s: M Performed By: #### L 550.32990 #### [facility] [address] [place] [address] Sodium [Moles/Vol] 139 mmol/L Normal 136-145 [facility] Comment on above: Order Comment: Campu s: M Performed By: #### L 550.54774 #### [facility] [address] [place] [address] Urea nitrogen [Mass/Vol] 21 mg/dL Normal 7-26 [facility] Comment on above: Order Comment: Campu s: M Performed By: #### L 550.50292 #### [facility] [address] [place] [address] Urea nitrogen/Creatinine [Mass ratio] 17 mg/mg Normal 15-24 [facility] Comment on above: Order Comment: Campu s: M Performed By: #### L 550.93359 #### [facility] [address] [place] [address] CBC W/DIFFon 05-14-2021 BAND ABS 0.15 K/CU MM Normal [facility] Comment on above: Order Comment: Campu s: M Performed By: #### L 200.93690 #### [facility] [address] [place] [address] Band form neutrophils/100 WBC (Bld) 2.0 % Normal 0-7 [facility] Comment on above: Order Comment: Campu s: M Performed By: #### L 200.43157 #### [facility] [address] [place] [address] EOS ABS 0.69 K/CU MM High 0-0.5 [facility] Comment on above: Order Comment: Campu s: M Performed By: #### L 200.48207 #### [facility] [address] [place] [address] Eosinophils/100 WBC (Bld) 9.0 % High 0-5 [facility] Comment on above: Order Comment: Campu s: M Performed By: #### L 200.24363 #### [facility] [address] [place] [address] LYMPH ABS 2.16 K/CU MM Normal 0.9-4.4 [facility] Comment on above: Order Comment: Campu s: M Performed By: #### L 200.54281 #### [facility] [address] [place] [address] Lymphocytes/100 WBC (Bld) 28.0 % Normal 20-40 [facility] Comment on above: Order Comment: Campu s: M Performed By: #### L 200.66867 #### [facility] [address] [place] [address] MONO ABS 0.77 K/CU MM Normal 0.1-1.1 [facility] Comment on above: Order Comment: Campu s: M Performed By: #### L 200.89986 #### [facility] [address] [place] [address] Monocytes/100 WBC (Bld) 10.0 % Normal 2-10 [facility] Comment on above: Order Comment: Campu s: M Performed By: #### L 200.58723 #### [facility] [address] [place] [address] NC/NC NORMOCYTIC Normal [facility] Comment on above: Order Comment: Campu s: M Performed By: #### L 200.30518 #### [facility] [address] [place] [address] NEUTROPHIL ABS 3.93 K/CU MM Normal 2.0-8.3 [facility] Comment on above: Order Comment: Campu s: M Performed By: #### L 200.54699 #### [facility] [address] [place] [address] Neutrophils/100 WBC (Bld) 51.0 % Normal 45-75 [facility] Comment on above: Order Comment: Campu s: M Performed By: #### L 200.67205 #### [facility] [address] [place] [address] PLT EST ADEQUATE Normal [facility] Comment on above: Order Comment: Campu s: M Performed By: #### L 200.34959 #### [facility] [address] [place] [address] Erythrocyte distribution width (RBC) [Ratio] 14.3 % Normal 11-14.5 [facility] Comment on above: Order Comment: Campu s: M Performed By: #### L 200.16979 #### [facility] [address] [place] [address] Hematocrit (Bld) [Volume fraction] 33.0 % Low 41.0-53.0 [facility] Comment on above: Order Comment: Campu s: M Performed By: #### L 200.61575 #### [facility] [address] [place] [address] Hemoglobin (Bld) [Mass/Vol] 10.7 g/dL Low 13.5-17.5 [facility] Comment on above: Order Comment: Campu s: M Performed By: #### L 200.23249 #### [facility] [address] [place] [address] MCHC (RBC) [Mass/Vol] 32.4 g/dL Normal 32.0-36.0 [facility] Comment on above: Order Comment: Campu s: M Performed By: #### L 200.60025 #### [facility] [address] [place] [address] MCV (RBC) [Entitic vol] 94.6 fL Normal 80.0-99.0 [facility] Comment on above: Order Comment: Campu s: M Performed By: #### L 200.32284 #### [facility] [address] [place] [address] Nucleated RBC/100 WBC (Bld) [Ratio] 0.0 % Normal Less than 1 [facility] Comment on above: Order Comment: Campu s: M Performed By: #### L 200.45542 #### [facility] [address] [place] [address] Platelet mean volume (Bld) [Entitic vol] 10.8 fL Normal 9.4-12.4 [facility] Comment on above: Order Comment: Campu s: M Performed By: #### L 200.20349 #### [facility] [address] [place] [address] PLT 172 K/CU MM Normal 150-450 [facility] Comment on above: Order Comment: Campu s: M Performed By: #### L 200.46747 #### [facility] [address] [place] [address] RBC 3.49 M/CU MM Low 4.50-6.00 [facility] Comment on above: Order Comment: Campu s: M Performed By: #### L 200.55841 #### [facility] [address] [place], [place] [address] WBC 7.7 K/CUMM Normal 4.5-11.0 [facility] Comment on above: Order Comment: Campu s: M Performed By: #### L 200.00430 #### [facility] [address] [place] [address] DISCH.SUMon 05-14-2021 DISCH.[facility] Patient Name: SERGO ROSAS [address] [place] [address] Date of : [address] [address] Unit Number: [id number] Discharge Summary Patient Status: DIS Yaya Attending [...] Platelet Estima (more content not included)... Normal [facility] GFR ESTon 05-14-2021 IF AMER Greater than 60 Normal [facility] Comment on above: Order Comment: Campu s: M Performed By: #### L 550.16002 #### [facility] [address] [place] [address] IF non-AFR AMER 58 Normal [facility] Comment on above: Order Comment: Campu s: M Performed By: #### L 550.41221 #### [facility] [address] [place] [address] OTARon 05-14-2021 OT Assessment Report Normal [facility] PTARon 05-14-2021 PT Assessment Report Normal [facility] BMPon 05-13-2021 Anion gap [Moles/Vol] 5 mmol/L Normal 5-16 [facility] Comment on above: Order Comment: Campu s: M Performed By: #### L 550.84838 #### [facility] [address] [place] [address] Calcium [Mass/Vol] 8.5 mg/dL Normal 8.5-10.5 [facility] Comment on above: Order Comment: Campu s: M Result Comment: NOTE NEW NORMAL RANGE DUE TO REAGENT CHANGE Performed By: #### L 550.62514 #### [facility] [address] [place] [address] Chloride [Moles/Vol] 106 mmol/L Normal 98-107 [facility] Comment on above: Order Comment: Campu s: M Performed By: #### L 550.39919 #### [facility] [place] [address] CO2 [Moles/Vol] 27.0 mmol/L Normal 21-32 [facility] Comment on above: Order Comment: Campu s: M Performed By: #### L 550.12900 #### [facility] [place] [address] Creatinine [Mass/Vol] 1.25 mg/dL Normal 0.5-1.4 [facility] Comment on above: Order Comment: Campu s: M Result Comment: NOTE NEW NORMAL RANGE DUE TO REAGENT CHANGE Patients receiving either N-Acetylcysteine (NAC) or Metamizole prior to venipuncture, may have falsely depressed results. Performed By: #### L 550.48585 #### [facility] [address] [place] [address] Glucose [Mass/Vol] 96 mg/dL Normal 70-100 [facility] Comment on above: Order Comment: Campu s: M Result Comment: 70-1 00- Normal Fasting; 100-125 Impaired Fasting; greater than 126 on more than one result- Diabetes. ADA guidelines. Results may be falsely elevated after the administration of Sulfapyridine. Results may be falsely depressed after the administration of Sulfasalazine. Performed By: #### L 550.56450 #### [facility] [address] [place] [address] Potassium [Moles/Vol] 3.9 mmol/L Normal 3.5-5.1 [facility] Comment on above: Order Comment: Campu s: M Result Comment: Slig ht Hemolysis, Result may be affected. Performed By: #### L 550.87311 #### [facility] [place] [address] Sodium [Moles/Vol] 138 mmol/L Normal 136-145 [facility] Comment on above: Order Comment: Campu s: M Performed By: #### L 550.27135 #### [facility] [place] [address] Urea nitrogen [Mass/Vol] 28 mg/dL High 7-26 [facility] Comment on above: Order Comment: Campu s: M Performed By: #### L 550.43877 #### [facility] [place] [address] Urea nitrogen/Creatinine [Mass ratio] 22 mg/mg Normal 15-24 [facility] Comment on above: Order Comment: Campu s: M Performed By: #### L 550.81543 #### [facility] [address] [place], [place] [address] CBCon 05-13-2021 Erythrocyte distribution width (RBC) [Ratio] 14.4 % Normal 11-14.5 [facility] Comment on above: Order Comment: Campu s: M Performed By: #### L 500.67804, L500.09674 #### [facility] [address] [place] [address] Hematocrit (Bld) [Volume fraction] 39.7 % Low 41.0-53.0 [facility] Comment on above: Order Comment: Campu s: M Performed By: #### L 500.84203, L500.28708 #### [facility] [address] [place] [address] Hemoglobin (Bld) [Mass/Vol] 13.1 g/dL Low 13.5-17.5 [facility] Comment on above: Order Comment: Campu s: M Performed By: #### L 500.06250, L500.22052 #### [facility] [address] [place] [address] MCHC (RBC) [Mass/Vol] 33.0 g/dL Normal 32.0-36.0 [facility] Comment on above: Order Comment: Campu s: M Performed By: #### L 500.12885, L500.67636 #### [facility] [address] [place], [place] [address] MCV (RBC) [Entitic vol] 92.1 fL Normal 80.0-99.0 [facility] Comment on above: Order Comment: Campu s: M Performed By: #### L 500.50413, L500.78010 #### [facility] [address] [place] [address] Nucleated RBC/100 WBC (Bld) [Ratio] 0.0 % Normal Less than 1 [facility] Comment on above: Order Comment: Campu s: M Performed By: #### L 500.42617, L500.74432 #### [facility] [address] [place] [address] Platelet mean volume (Bld) [Entitic vol] 11.4 fL Normal 9.4-12.4 [facility] Comment on above: Order Comment: Campu s: M Performed By: #### L 500.95982, L500.19120 #### [facility] [address] [place] [address]407 PLT 186 K/CU MM Normal 150-450 [facility] Comment on above: Order Comment: Campu s: M Performed By: #### L 500.73554, L500.06504 #### [facility] [address] [place], [place] [address] RBC 4.31 M/CU MM Low 4.50-6.00 [facility] Comment on above: Order Comment: Campu s: M Performed By: #### L 500.95215, L500.76691 #### [facility] [address] [place] [address] 09583 WBC 8.1 K/CUMM Normal 4.5-11.0 [facility] Comment on above: Order Comment: Campu s: M Performed By: #### L 500.75090, L500.00745 #### [facility] [address] [place], [place] [address] GFR ESTon 05-13-2021 IF AMER Greater than 60 Normal [facility] Comment on above: Order Comment: Campu s: M Performed By: #### L 550.02529 #### [facility] [address] [place], [place] [address] IF non-AFR AMER 55 Normal [facility] Comment on above: Order Comment: Campu s: M Performed By: #### L 550.25837 #### [facility] [address] [place] [address] 17427 MAGNESIUMon 05-13-2021 Magnesium [Mass/Vol] 2.0 mg/dL Normal 1.6-2.6 [facility] Comment on above: Order Comment: Campu s: M Performed By: #### L 550.68854 #### [facility] [address] [place] [address] 63853 PROG IMSon 05-13-2021 PROG [facility] Patient Name: HEADINGS,SERGO Suárez [address] [place] [address] Date of : [address] [place] [address] Unit Number: [id number] Progress Note-Hospitalist Patient Status: ADM Yaya Attending [...] Anion gap [Moles/Vol] 7 mmol/L Normal 5-16 [facility] Comment on above: Order Comment: Campu s: M Performed By: #### L 550.84545 #### [facility] [place] [address] Calcium [Mass/Vol] 9.9 mg/dL Normal 8.5-10.5 [facility] Comment on above: Order Comment: Campu s: M Result Comment: NOTE NEW NORMAL RANGE DUE TO REAGENT CHANGE Performed By: #### L 550.37819 #### [facility] [address] [place] [address] Chloride [Moles/Vol] 97 mmol/L Low 98-107 [facility] Comment on above: Order Comment: Campu s: M Performed By: #### L 550.54165 #### [facility] [address] [place] [address] CO2 [Moles/Vol] 31.0 mmol/L Normal 21-32 [facility] Comment on above: Order Comment: Campu s: M Performed By: #### L 550.81516 #### [facility] [address] [place] [address] 77893 Creatinine [Mass/Vol] 1.76 mg/dL High 0.5-1.4 [facility] Comment on above: Order Comment: Campu s: M Result Comment: NOTE NEW NORMAL RANGE DUE TO REAGENT CHANGE Patients receiving either N-Acetylcysteine (NAC) or Metamizole prior to venipuncture, may have falsely depressed results. Performed By: #### L 550.13865 #### [facility] [address] [place] [address] 95111 Glucose [Mass/Vol] 142 mg/dL High 70-100 [facility] Comment on above: Order Comment: Campu s: M Result Comment: 70-1 00- Normal Fasting; 100-125 Impaired Fasting; greater than 126 on more than one result- Diabetes. ADA guidelines. Results may be falsely elevated after the administration of Sulfapyridine. Results may be falsely depressed after the administration of Sulfasalazine. Performed By: #### L 550.70867 #### [facility] [address] [place] [address] 96866 Potassium [Moles/Vol] 4.2 mmol/L Normal 3.5-5.1 [facility] Comment on above: Order Comment: Campu s: M Result Comment: Slig ht Hemolysis, Result may be affected. Performed By: #### L 550.65189 #### [facility] [address] [place] [address] 76043 Sodium [Moles/Vol] 135 mmol/L Low 136-145 [facility] Comment on above: Order Comment: Campu s: M Performed By: #### L 550.81837 #### [facility] [address] [place] [address] Urea nitrogen [Mass/Vol] 33 mg/dL High 7-26 [facility] Comment on above: Order Comment: Campu s: M Performed By: #### L 550.16297 #### [facility] [address] [place] [address] Urea nitrogen/Creatinine [Mass ratio] 19 mg/mg Normal 15-24 [facility] Comment on above: Order Comment: Campu s: M Performed By: #### L 550.88911 #### [facility] [address] [place] [address] CBC W/DIFFon 05-12-2021 BASO ABS 0.00 K/CU MM Normal 0-0.2 [facility] Comment on above: Order Comment: Campu s: M Performed By: #### L 550.14589 #### [facility] [address] [place] [address] Basophils/100 WBC (Bld) 0.1 % Normal 0-2 [facility] Comment on above: Order Comment: Campu s: M Performed By: #### L 550.33433 #### [facility] [address] [place] [address] EOS ABS 0.70 K/CU MM High 0-0.5 [facility] Comment on above: Order Comment: Campu s: M Performed By: #### L 550.18531 #### [facility] [address] [place], [place] [address] Eosinophils/100 WBC (Bld) 6.8 % High 0-5 [facility] Comment on above: Order Comment: Campu s: M Performed By: #### L 550.60433 #### [facility] [address] [place] [address] IMMATR GRAN ABS 0.00 K/CU MM Normal Less than 2 [facility] Comment on above: Order Comment: Campu s: M Performed By: #### L 550.86873 #### [facility] [address] [place] [address] IMMATURE GRAN % 0.3 % Normal Less than 2 [facility] Comment on above: Order Comment: Campu s: M Performed By: #### L 550.99379 #### [facility] [address] [place] [address] LYMPH ABS 2.20 K/CU MM Normal 0.9-4.4 [facility] Comment on above: Order Comment: Campu s: M Performed By: #### L 550.32257 #### [facility] [address] [place] [address] Lymphocytes/100 WBC (Bld) 21.2 % Normal 20-40 [facility] Comment on above: Order Comment: Campu s: M Performed By: #### L 550.61543 #### [facility] [address] [place] [address] MONO ABS 1.00 K/CU MM Normal 0.1-1.1 [facility] Comment on above: Order Comment: Campu s: M Performed By: #### L 550.86165 #### [facility] [address] [place] [address] Monocytes/100 WBC (Bld) 9.5 % Normal 2-10 [facility] Comment on above: Order Comment: Campu s: M Performed By: #### L 550.78862 #### [facility] [address] [place] [address] NEUTROPHIL ABS 6.60 K/CU MM Normal 2.0-8.3 [facility] Comment on above: Order Comment: Campu s: M Performed By: #### L 550.37910 #### [facility] [place] [address] Neutrophils/100 WBC (Bld) 62.1 % Normal 45-75 [facility] Comment on above: Order Comment: Campu s: M Performed By: #### L 550.43616 #### [facility] [address] [place], [place] [address] PLT EST ADEQUATE Normal [facility] Comment on above: Order Comment: Campu s: M Performed By: #### L 550.89092 #### [facility] [address] [place], [place] [address] PLT MORPH LARGE FORMS NOTED Normal [facility] Comment on above: Order Comment: Campu s: M Performed By: #### L 550.19895 #### [facility] [address] [place] [address] POIK 1+ Normal [facility] Comment on above: Order Comment: Campu s: M Performed By: #### L 550.10947 #### [facility] [address] [place], [place] [address] POLY 1+ Normal [facility] Comment on above: Order Comment: Campu s: M Performed By: #### L 550.27796 #### [facility] [address] [place], [place] [address] RLYMPH PRESENT Normal [facility] Comment on above: Order Comment: Campu s: M Performed By: #### L 550.42852 #### [facility] [address] [place] [address] Erythrocyte distribution width (RBC) [Ratio] 14.2 % Normal 11-14.5 [facility] Comment on above: Order Comment: Campu s: M Performed By: #### L 550.75002 #### [facility] [address] [place], [place] [address] Hematocrit (Bld) [Volume fraction] 42.7 % Normal 41.0-53.0 [facility] Comment on above: Order Comment: Campu s: M Performed By: #### L 550.17253 #### [facility] [address] [place] [address] Hemoglobin (Bld) [Mass/Vol] 13.9 g/dL Normal 13.5-17.5 [facility] Comment on above: Order Comment: Campu s: M Performed By: #### L 550.86994 #### [facility] [address] [place] [address] MCHC (RBC) [Mass/Vol] 32.6 g/dL Normal 32.0-36.0 [facility] Comment on above: Order Comment: Campu s: M Performed By: #### L 550.72174 #### [facility] [address] [place] [address] MCV (RBC) [Entitic vol] 93.8 fL Normal 80.0-99.0 [facility] Comment on above: Order Comment: Campu s: M Performed By: #### L 550.80890 #### [facility] [address] [place] [address] Nucleated RBC/100 WBC (Bld) [Ratio] 0.0 % Normal Less than 1 [facility] Comment on above: Order Comment: Campu s: M Performed By: #### L 550.90562 #### [facility] [address] [place] [address] Platelet mean volume (Bld) [Entitic vol] 10.8 fL Normal 9.4-12.4 [facility] Comment on above: Order Comment: Campu s: M Performed By: #### L 550.93332 #### [facility] [place] [id number] PLT 234 K/CU MM Normal 150-450 [facility] [place] Comment on above: Order Comment: Campu s: M Performed By: #### L 550.17867 #### [facility] [address] [place] [address] RBC 4.55 M/CU MM Normal 4.50-6.00 [facility] Comment on above: Order Comment: Campu s: M Performed By: #### L 550.50195 #### [facility] [address] [place] [address] WBC 10.6 K/CUMM Normal 4.5-11.0 [facility] Comment on above: Order Comment: Campu s: M Performed By: #### L 550.98988 #### [facility] [address] [place] [address] BASO ABS 0.00 K/CU MM Normal 0-0.2 [facility] Comment on above: Order Comment: Campu s: M Performed By: #### L 550.32671 #### [facility] [address] [place] [address] Basophils/100 WBC (Bld) 0.2 % Normal 0-2 [facility] Comment on above: Order Comment: Campu s: M Performed By: #### L 550.93434 #### [facility] [address] [place], [place] [address] EOS ABS 0.50 K/CU MM Normal 0-0.5 [facility] Comment on above: Order Comment: Campu s: M Performed By: #### L 550.83447 #### [facility] [address] [place], [place] [address] Eosinophils/100 WBC (Bld) 4.2 % Normal 0-5 [facility] Comment on above: Order Comment: Campu s: M Performed By: #### L 550.05705 #### [facility] [address] [place] [address] Erythrocyte distribution width (RBC) [Ratio] 14.2 % Normal 11-14.5 [facility] Comment on above: Order Comment: Campu s: M Performed By: #### L 550.07476 #### [facility] [address] [place] [address] Hematocrit (Bld) [Volume fraction] 49.3 % Normal 41.0-53.0 [facility] Comment on above: Order Comment: Campu s: M Performed By: #### L 550.68000 #### [facility] [address] [place] [address] Hemoglobin (Bld) [Mass/Vol] 16.0 g/dL Normal 13.5-17.5 [facility] Comment on above: Order Comment: Campu s: M Performed By: #### L 550.86622 #### [facility] [address] [place] [address] IMMATR GRAN ABS 0.00 K/CU MM Normal Less than 2 [facility] Comment on above: Order Comment: Campu s: M Performed By: #### L 550.70334 #### [facility] [address] [place] [address] IMMATURE GRAN % 0.3 % Normal Less than 2 [facility] Comment on above: Order Comment: Campu s: M Performed By: #### L 550.56230 #### [facility] [address] [place] [address] LYMPH ABS 1.20 K/CU MM Normal 0.9-4.4 [facility] Comment on above: Order Comment: Campu s: M Performed By: #### L 550.25127 #### [facility] [address] [place] [address] Lymphocytes/100 WBC (Bld) 9.7 % Low 20-40 [facility] Comment on above: Order Comment: Campu s: M Performed By: #### L 550.26759 #### [facility] [address] [place] [address] MCHC (RBC) [Mass/Vol] 32.5 g/dL Normal 32.0-36.0 [facility] Comment on above: Order Comment: Campu s: M Performed By: #### L 550.50726 #### [facility] [address] [place] [address] MCV (RBC) [Entitic vol] 93.9 fL Normal 80.0-99.0 [facility] Comment on above: Order Comment: Campu s: M Performed By: #### L 550.09964 #### [facility] [address] [place] [address] MONO ABS 0.80 K/CU MM Normal 0.1-1.1 [facility] Comment on above: Order Comment: Campu s: M Performed By: #### L 550.31070 #### [facility] [address] [place] [address] Monocytes/100 WBC (Bld) 6.3 % Normal 2-10 [facility] Comment on above: Order Comment: Campu s: M Performed By: #### L 550.90714 #### [facility] [address] [place], [place] [address] NEUTROPHIL ABS 10.00 K/CU MM High 2.0-8.3 [facility] Comment on above: Order Comment: Campu s: M Performed By: #### L 550.89941 #### [facility] [address] [place], [place] [address] Neutrophils/100 WBC (Bld) 79.3 % High 45-75 [facility] Comment on above: Order Comment: Campu s: M Performed By: #### L 550.25047 #### [facility] [address] [place] [address] Nucleated RBC/100 WBC (Bld) [Ratio] 0.0 % Normal Less than 1 [facility] Comment on above: Order Comment: Campu s: M Performed By: #### L 550.20790 #### [facility] [address] [place] [address] Platelet mean volume (Bld) [Entitic vol] 11.1 fL Normal 9.4-12.4 [facility] Comment on above: Order Comment: Campu s: M Performed By: #### L 550.70550 #### [facility] [address] [place] [address] 69103 PLT 241 K/CU MM Normal 150-450 [facility] Comment on above: Order Comment: Campu s: M Performed By: #### L 550.09344 #### [facility] [place] [address] RBC 5.25 M/CU MM Normal 4.50-6.00 [facility] Comment on above: Order Comment: Campu s: M Performed By: #### L 550.90783 #### [facility] [address] [place] [address] 23457 WBC 12.6 K/CUMM High 4.5-11.0 [facility] Comment on above: Order Comment: Campu s: M Performed By: #### L 550.25430 #### [facility] [address] [place] [address] 738[address] CDIF PCRon 05-12-2021 CDIF PCR Negative Normal NEGATIVE [facility] Comment on above: Order Comment: Campu s: M Result Comment: This specimen is negative for the molecular prescence of the C.difficile Gene and warrants no further testing. It is recommended that no more than one stool specimen be tested for C.Difficile by PCR per week. Performed By: #### L 550.11993 #### [facility] [address] [place] [address]# [phone] [facility] [id number] IN [place] ECHOCARDIOGRAM [address] [place] [address] Noninvasive Cardiac Diagnostics Adult Echocardiogram Report Name: SERGO ROSAS Study Date: 05/13/2021 01:43 PM BP: 108/70 mmHg Patient Location: [id number]: : 1935 Gender: Male Height: 68 in Age: 86 yrs Ethnicity: [place] Weight: 154 lb Accession No. [id number] No. [id number] Reason For Study: SYNCOPE BSA: 1.8 m2 [...] left ventricular apex is not well visualized. [facility] PATIENT NAME: SERGO ROSAS [address] [place] [address] Dr. Shearer MEDICAL REC #: [id number] [place] [address] ADMIT DATE: 05/11/21 DISCHARGE DATE: ATTENDING PHY: [...] 123.3 ml LVIDs: FS: 43.2 % ESV(cubed): [facility] PATIENT NAME: SERGO ROSAS [facility] Dr. Shearer MEDICAL REC #: [id number] [place] [address] ADMIT DATE: 05/11/21 DISCHARGE DATE: ATTENDING PHY: [...] RADHA(I,A): 2.1 cm2 RADHA(I,D): 2.1 cm2 RADHA(V,A): [facility] PATIENT NAME: SERGO ROSAS [facility] Dr. Shearer MEDICAL REC #: [id number] [place] [address] ADMIT DATE: 05/11/21 DISCHARGE DATE: ATTENDING PHY: [...] [facility] Normal [facility] CMPon 05-12-2021 Albumin [Mass/Vol] 3.0 g/dL Low 3.2-5.0 [facility] Comment on above: Order Comment: Campu s: M Performed By: #### L 500.73499, L500.43271 #### [facility] [address] [place] [address] Albumin/Globulin [Mass ratio] 1.0 {ratio} Normal 0.8-2.0 [facility] Comment on above: Order Comment: Campu s: M Performed By: #### L 500.74869, L500.12088 #### [facility] [address] [place] [address]246 ALK PHOS 69 U/L Normal 45-117 [facility] Comment on above: Order Comment: Campu s: M Performed By: #### L 500.53431, L500.92377 #### [facility] [address] [place] [address] 45785 ALT [Catalytic activity/Vol] 9 U/L Low 13-61 [facility] Comment on above: Order Comment: Campu s: M Result Comment: RESU LTS MAY BE FALSELY DEPRESSED AFTER THE ADMINISTRATION OF SULFASALAZINE AND/OR SULFAPYRIDINE. Performed By: #### L 500.89615, L500.23088 #### [facility] [address] [place] [address] Anion gap [Moles/Vol] 8 mmol/L Normal 5-16 [facility] Comment on above: Order Comment: Campu s: M Performed By: #### L 500.51970, L500.49269 #### [facility] [address] [place] [address] AST [Catalytic activity/Vol] 10 U/L Normal 8-34 [facility] Comment on above: Order Comment: Campu s: M Result Comment: RESU LTS MAY BE FALSELY DEPRESSED AFTER THE ADMINISTRATION OF SULFASALAZINE AND/OR SULFAPYRIDINE. Performed By: #### L 500.12655, L500.64507 #### [facility] [address] [place] [address] BILI TOTAL 0.60 MG/DL Normal 0.2-1.0 [facility] Comment on above: Order Comment: Campu s: M Performed By: #### L 500.87277, L500.15183 #### [facility] [address] [place] [address] Calcium [Mass/Vol] 9.0 mg/dL Normal 8.5-10.5 [facility] Comment on above: Order Comment: Campu s: M Result Comment: NOTE NEW NORMAL RANGE DUE TO REAGENT CHANGE Performed By: #### L 500.26105, L500.05579 #### [facility] [address] [place] [address] Chloride [Moles/Vol] 101 mmol/L Normal 98-107 [facility] Comment on above: Order Comment: Campu s: M Performed By: #### L 500.52464, L500.02028 #### [facility] [address] [place] [address] CO2 [Moles/Vol] 28.0 mmol/L Normal 21-32 [facility] Comment on above: Order Comment: Campu s: M Performed By: #### L 500.76886, L500.19569 #### [facility] [address] [place] [address] Creatinine [Mass/Vol] 1.71 mg/dL High 0.5-1.4 [facility] Comment on above: Order Comment: Campu s: M Result Comment: NOTE NEW NORMAL RANGE DUE TO REAGENT CHANGE Patients receiving either N-Acetylcysteine (NAC) or Metamizole prior to venipuncture, may have falsely depressed results. Performed By: #### L 500.00767, L500.40346 #### [facility] [address] [place] [address] Globulin (S) [Mass/Vol] 3.0 g/dL Normal 2.2-4.2 [facility] Comment on above: Order Comment: Campu s: M Performed By: #### L 500.98719, L500.25125 #### [facility] [address] [place] [address] Glucose [Mass/Vol] 109 mg/dL High 70-100 [facility] Comment on above: Order Comment: Campu s: M Result Comment: 70-1 00- Normal Fasting; 100-125 Impaired Fasting; greater than 126 on more than one result- Diabetes. ADA guidelines. Results may be falsely elevated after the administration of Sulfapyridine. Results may be falsely depressed after the administration of Sulfasalazine. Performed By: #### L 500.53950, L500.11568 #### [facility] [address] [place] [address]01 Potassium [Moles/Vol] 3.8 mmol/L Normal 3.5-5.1 [facility] Comment on above: Order Comment: Campu s: M Result Comment: Slig ht Hemolysis, Result may be affected. Performed By: #### L 500.98003, L500.39421 #### [facility] [place] [address] Protein [Mass/Vol] 6.0 g/dL Normal 6.0-8.5 [facility] Comment on above: Order Comment: Campu s: M Performed By: #### L 500.98235, L500.47715 #### [facility] [address] [place] [address] Sodium [Moles/Vol] 137 mmol/L Normal 136-145 [facility] Comment on above: Order Comment: Campu s: M Performed By: #### L 500.80439, L500.20316 #### [facility] [address] [place], [place] [address] Urea nitrogen [Mass/Vol] 39 mg/dL High 7-26 [facility] Comment on above: Order Comment: Campu s: M Performed By: #### L 500.61395, L500.93092 #### [facility] [address] [place] [address] Urea nitrogen/Creatinine [Mass ratio] 23 mg/mg Normal 15-24 [facility] Comment on above: Order Comment: Campu s: M Performed By: #### L 500.16909, L500.13197 #### [facility] [address] [place] [address] EKGon 05-12-2021 Electrocardiogram Procedure Date and Time: [...] By:Michel ALTAMIRANO M.D.FACC Henry DDandT: 05/11/212205 TDandT: [facility] PATIENT NAME: SERGO ROSAS Dr. Shearer MEDICAL REC #: [id number] [place] [address] ADMIT DATE: 05/11/21 DISCHARGE DATE: ATTENDING PHY: Keyonna Welch MD ELECTROCARDIOGRAM REPORT CLB cc: [facility] PATIENT NAME: SERGO ROSAS Dr. Shearer MEDICAL REC #: [id number] [place] [address] ADMIT DATE: 05/11/21 DISCHARGE DATE: ATTENDING PHY: Keyonna Welch MD ELECTROCARDIOGRAM REPORT Normal [facility] Johnna 05-12-2021 EMERGENCY PHYSICIAN REPORT This is a preliminary report only, as the practitioner review and authentication has not occurred. Normal [facility] ER PHYSICIAN ASSESSMENT RECORDS : Discharge Report Event Time: 05/11/2021 22:59 : FlexChartData Event Time: 05/11/2021 23:30 Status: Signed [facility] Sergo Rosas [[id number]] Attending Physician 86 / M / 1935 Addendum (V2b) Chart created at 05/11/2021 22:57 by Nacho Gayle Chart closed at 05/11/2021 22:58 Entry in Emergency Department at 05/11/2021 20:56 Patient Name: Sergo Rosas Record Number: [id number] Date: 05/11/2021 22:57 Entered Department at: 05/11/2021 20:56 Patient Seen at: 05/11/2021 21:16 PCP: Dr. Wilson @ [facility] Chief Complaint:Syncopal episode x3 (one [...] this was either orthostasis or vagal reaction. [facility] PATIENT NAME: SERGO ROSAS [address] [facility] Dr. Shearer MEDICAL REC #: [id number] [place] [address] EMERGENCY DEPARTMENT REPORT EMERGENCY DEPARTMENT PHYSICIAN RICK completed. I was the primary ED attending.. Patient transported to ED by EMS with medical direction by SCEP physician (not applicable for EMT squads) .. : FlexChartData Event Time: 05/11/2021 22:50 Status: Signed [facility] Sergo Rosas [[id number]] Attending Physician 86 / M / 1935 Chart (V2b) Chart created at 05/11/2021 22:13 by Nacho Gayle Chart closed at 05/11/2021 22:17 Entry in Emergency Department at 05/11/2021 20:56 Patient Name: Sergo Rosas Record Number: [id number] Date: 05/11/2021 22:13 Entered Department at: 05/11/2021 20:56 Patient Seen at: 05/11/2021 21:16 Historian: Family and Patient PCP: Dr. Wilson @ [facility] Chief Complaint:Syncopal episode x3 (one [...] the diarrhea and vomiting have started up [facility] PATIENT NAME: SERGO ROSAS [facility] Dr. Shearer MEDICAL REC #: [id number] [place] [id number] EMERGENCY DEPARTMENT REPORT EMERGENCY DEPARTMENT PHYSICIAN again [...] Symptom dunne unremarkable study with exception of [facility] PATIENT NAME: SERGO ROSAS [facility] Dr. Shearer MEDICAL REC #: [id number] [place] [address] BRITTA (more content not included)... Normal [facility] GFR ESTon 05-12-2021 IF AMER 46 [facility] Comment on above: Order Comment: Campu s: M Performed By: #### L 500.67927, L500.91655 #### [facility] [address] [place] [address] IF non-AFR AMER 38 [facility] Comment on above: Order Comment: Campu s: M Performed By: #### L 500.76818, L500.92559 #### [facility] [address] [place] [address] IF AMER 45 [facility] Comment on above: Order Comment: Campu s: M Performed By: #### L 550.94320 #### [facility] [address] [place] [address] IF non-AFR AMER 37 [facility] Comment on above: Order Comment: Campu s: M Performed By: #### L 550.75072 #### [facility] [address] [place] [address] HGB A1C GLYCOHBon 05-12-2021 HbA1c (Bld) [Mass fraction] 5.8 % Normal 4.3-6.0 [facility] Comment on above: Order Comment: Campu s: M Performed By: #### L 550.95339 #### [facility] [address] [place] [address] HP.IMS.ADMon 05-12-2021 [facility] Patient Name: CECILS,SERGO Orellana [address] Date of : [address] Unit Number: [id number] Admission-HandP Patient Status: REG ER Attending Doctor: Ekaterina RamEmergency Physicians Service Date: 05/11/21 5232 History of Present Illness Source of Information Patient Chief Complaint/Present Illness: Acute on chronic diarrhea, N/V, syncopal events Living Situation Home - Independent History of Present Illness The patient is an 86 y/o M w/ PMHx: BPH, HTN, HLD, Hx AAA s/p stenting at , Prediabetes mellitus type II currently managing himself with lifestyle/diet, Gluten allergy who presents to the [facility] on 05/11[facility]21 with history of severe diarrhea 2 months prior with evaluation at [facility] with no obvious source at that time with colonoscopy performed and patient reports no findings including microscopic colitis eventually discharged and his daughter who is an STRAP FOLDING MACHINE OPERATOR per his report placed him [...] Last Action: Continued on 05/11/212338 by KEYONNA WLECH Tamsulosin HCl* (Flomax 0.4MG Cap*) 0.4 MG [...] Normal [facility] HP.IMS.ADM [facility] Patient Name: CECILS,SERGO [address] [place] [address] Date of : [address] [place] [address] Unit Number: [id number] Admission-HandP Patient Status: REG ER Attending Doctor: [...] TO REAGENT CHANGE Performed By: #### L 550.83856 #### [facility] [address] [place] [address] LIVERon 05-12-2021 Albumin [Mass/Vol] 3.5 g/dL Normal 3.2-5.0 [facility] Comment on above: Order Comment: Tahira s: M Performed By: #### L 550.52359 #### [facility] [address] [place] [address] Albumin/Globulin [Mass ratio] 1.0 {ratio} Normal 0.8-2.0 [facility] Comment on above: Order Comment: Campu s: M Performed By: #### L 550.51635 #### [facility] [address] [place] [address] ALK PHOS 85 U/L Normal 45-117 [facility] Comment on above: Order Comment: Campu s: M Performed By: #### L 550.43020 #### [facility] [address] [place] [address] ALT [Catalytic activity/Vol] 12 U/L Low 13-61 [facility] Comment on above: Order Comment: Campu s: M Result Comment: RESU LTS MAY BE FALSELY DEPRESSED AFTER THE ADMINISTRATION OF SULFASALAZINE AND/OR SULFAPYRIDINE. Performed By: #### L 550.25204 #### [facility] [address] [place] [address] AST [Catalytic activity/Vol] 18 U/L Normal 8-34 [facility] Comment on above: Order Comment: Campu s: M Result Comment: RESU LTS MAY BE FALSELY DEPRESSED AFTER THE ADMINISTRATION OF SULFASALAZINE AND/OR SULFAPYRIDINE. Performed By: #### L 550.00518 #### [facility] [address] [place] [address] BILI DIRECT 0.3 MG/DL Normal 0.00-0.36 [facility] Comment on above: Order Comment: Campu s: M Result Comment: NOTE NEW NORMAL RANGE DUE TO REAGENT CHANGE Performed By: #### L 550.08496 #### [facility] [address] [place] [address] BILI TOTAL 0.80 MG/DL Normal 0.2-1.0 [facility] Comment on above: Order Comment: Campu s: M Performed By: #### L 550.77099 #### [facility] [address] [place] [address] Globulin (S) [Mass/Vol] 3.6 g/dL Normal 2.2-4.2 [facility] Comment on above: Order Comment: Campu s: M Performed By: #### L 550.55660 #### [facility] [address] [place] [address] Protein [Mass/Vol] 7.1 g/dL Normal 6.0-8.5 [facility] Comment on above: Order Comment: Campu s: M Performed By: #### L 550.86576 #### [facility] [address] [place] [address] MAGNESIUMon 05-12-2021 Magnesium [Mass/Vol] 1.5 mg/dL Low 1.6-2.6 [facility] Comment on above: Order Comment: Campu s: M Performed By: #### L 500.33024, L500.93353 #### [facility] [address] [place] [address] O AND P EXAMon 05-12-2021 O AND P EXAM This report has been cancelled Normal [facility] Comment on above: Order Comment: Deseanu s: M PHOSon 05-12-2021 Phosphate [Mass/Vol] 4.70 mg/dL Normal 2.5-4.9 [facility] Comment on above: Order Comment: Campu s: M Result Comment: Elev ated m-protein (paraprotein) levels in the serum may be exhibited in patients with monoclonal gammopathies, causing falsely elevated inorganic phosphorus results. Performed By: #### L 500.64249, L500.19863 #### [facility] [address] [place] [address] PROG IMSon 05-12-2021 PROG [facility] Patient Name: RALPH,SERGO Suárez [address] [place] [address] Date of : [address] [place] [address] Unit Number: [id number] Progress Note-Hospitalist Patient Status: ADM Yaya Attending [...] cervical lymphadenopathy. Diagnostic Data: Lab 24hr (CBC/BMP [facility]) 05/12/21 1428: Troponin I 28.4 05/12/21 0715: [...] Appearance Hazy, Urine pH 5.0, Ur Specific [place] 1.028, Urine Protein 30, Urine Glucose (UA) [...] Time Jairo Biswas MD Verified/Reviewed by 05/12/21 1643 [facility] [place] Progress Note-Hospitalist Normal [facility] [id number] 05-12-2021 SARS-CoV-2 (COVID-19) RNA JACKELYN+probe Ql (Unsp [...] performed by PCR. Performed By: #### L 770.27344 #### [facility] [address] [place] [address] STOOL PANEL GIon 05-12-2021 ADENOVIRUS PCR Not detected Normal NOTDETECTED [facility] Comment on above: Order Comment: Deseanu s: M Performed By: #### L 550.33758 #### [facility] [address] [place] [address] ASTROVIRUS PCR Not detected [facility]: Order Comment: Tahira s: M Result Comment: Viru s, bacteria, and parasite nucleic acid may persist in vivo independently of organism viability. Additionally, some organisms may be carried asymptomatically. Detection of organism targets does not imply that the corresponding organisms are infections or are the causative agents for clinical symptoms. Performed By: #### L 550.42618 #### [facility] [address] [place] [address] CAMPY Not detected Normal NOTDETECTED [facility] Comment on above: Order Comment: Campu s: M Performed By: #### L 550.19507 #### [facility] [address] [place] [address] CRYPTOSPORIDIUM Not detected Normal NOTDETECTED [facility] Comment on above: Order Comment: eDseanu s: M Performed By: #### L 550.16335 #### [facility] [address] [place] [address] CYCLOSPORA PCR Not detected [facility] Comment [facility]: Order Comment: Campu s: M Performed By: #### L 550.95583 #### [facility] [address] [place] [address] E.COLI O157 PCR Not detected Normal [facility]ECTED [facility] Comment on above: Order Comment: Campu s: M Performed By: #### L 550.53033 #### [facility] [address] [place] [address] E.HISTOLYTICA Not detected Normal NOTDETECTED [facility] Comment on above: Order Comment: Campu s: M Performed By: #### L 550.87080 #### [facility] [place] [address] EAEC E COLI PCR Not detected Normal NOTDETECTED [facility] Comment on above: Order Comment: Campu s: M Performed By: #### L 550.99948 #### [facility] [place] [address] EPEC E COLI PCR Not detected Normal NOTDETECTED [facility] Comment on above: Order Comment: Campu s: M Performed By: #### L 550.95187 #### [facility] [address] [place] [address] ETEC E.COLI PCR Not detected Normal [facility]ECTED [facility] Comment on above: Order Comment: Campu s: M Performed By: #### L 550.81528 #### [facility] [address] [place] [address] GIARDIA MUSE PCR Not detected Normal [facility]ECTED [facility] Comment on above: Order Comment: Campu s: M Performed By: #### L 550.64635 #### [facility] [address] [place] [address] NOROVIRUS PCR Not detected [facility]ED [facility] Comment on above: Order Comment: Campu s: M Performed By: #### L 550.63063 #### [facility] [address] [place] [address] PLESIOMONAS PCR Not detected Normal [facility] Comment on above: Order Comment: Campu s: M Performed By: #### L 550.30077 #### [facility] [address] [place] [address] ROTAVIRUS A PCR Not detected Normal NOTDETECTED [facility] Comment on above: Order Comment: Campu s: M Performed By: #### L 550.35527 #### [facility] [address] [place] [address] SALMONELLA PCR Not detected Normal NOTDETECTED [facility] Comment on above: Order Comment: Campu s: M Performed By: #### L 550.81910 #### [facility] [address] [place] [address] SAPOVIRUS PCR Not detected Normal NOTDETECTED [facility] Comment on above: Order Comment: Campu s: M Performed By: #### L 550.55399 #### [facility] [place] [address] SHIGATOXIN ECOL Not detected Normal NOTDETECTED [facility] Comment on above: Order Comment: Campu s: M Performed By: #### L 550.66982 #### [facility] [address] [place] [address] SHIGELLA/EIEC Not detected Normal NOTDETECTED [facility] Comment on above: Order Comment: Campu s: M Performed By: #### L 550.06202 #### [facility] [address] [place] [address] V CHOLERAE PCR Not detected Normal NOTDETECTED [facility] Comment on above: Order Comment: Campu s: M Performed By: #### L 550.01000 #### [facility] [address] [place] [address] VIBRIO PCR Not detected Normal NOTDETECTED [facility] Comment on above: Order Comment: Campu s: M Performed By: #### L 550.77331 #### [facility] [place] [address] YERSINIA PCR Not detected Normal NOTDETECTED [facility] Comment on above: Order Comment: Campu s: M Performed By: #### L 550.89716 #### [facility] [address] [place] [address], [place] [address] TROPONIN Ion 05-12-2021 TROPONIN I 28.4 pg/mL Normal 0-54 [facility] Comment on above: Order Comment: Campu s: M Patient Not in Room Result Comment: NOTE NEW NORMAL RANGE DUE TO REAGENT CHANGE This assay uses different antibodies than our current assay, and assays, even by the same rehab office coordinator may recognize different regions of the antibody and cannot be used interchangeably. Expect results of this assay to run higher than the previous assay. Performed By: #### L 550.33932 #### [facility] [address] [place] [address], [place] [address] TROPONIN I 33.5 pg/mL Normal 0-54 [facility] Comment on above: Order Comment: Campu s: M Result Comment: NOTE NEW NORMAL RANGE DUE TO REAGENT CHANGE This assay uses different antibodies than our current assay, and assays, even by the same rehab office coordinator may recognize different regions of the antibody and cannot be used interchangeably. Expect results of this assay to run higher than the previous assay. Performed By: #### L 550.13414 #### [facility] [address] [place] [address] TROPONIN I 13.4 pg/mL Normal 0-54 [facility] Comment on above: Order Comment: Campu s: M Result Comment: NOTE NEW NORMAL RANGE DUE TO REAGENT CHANGE This assay uses different antibodies than our current assay, and assays, even by the same rehab office coordinator may recognize different regions of the antibody and cannot be used interchangeably. Expect results of this assay to run higher than the previous assay. Performed By: #### L 550.16119 #### [facility] [address] [place] [address] UA COMPLETEon 05-12-2021 Color (U) Jodi Normal [facility] Comment on above: Order Comment: Campu s: M Performed By: #### L 600.22249 #### [facility] [address] [place] [address] Glucose (U) [Mass/Vol] Negative Normal NORMAL [facility] Comment on above: Order Comment: Campu s: M Performed By: #### L 600.97877 #### [facility] [address] [place] [address] HYALINE CAST 40 /LPF High 0-1 [facility] Comment on above: Order Comment: Campu s: M Performed By: #### L 600.65822 #### [facility] [address] [place] [address] Mucus Ql (Urine sed) 1+ Normal NEGATIVE [facility] Comment on above: Order Comment: Campu s: M Performed By: #### L 600.62478 #### [facility] [address] [place] [address] SQUAMOUS EPIS 0 EPI/HPF Normal 0-5 [facility] Comment on above: Order Comment: Campu s: M Performed By: #### L 600.40126 #### [facility] [address] [place] [address] UA APPEARANCE Hazy Normal CLEAR [facility] Comment on above: Order Comment: Campu s: M Performed By: #### L 600.92338 #### [facility] [address] [place] [address] UA BACTERIA NONE Normal NONE [facility] Comment on above: Order Comment: Campu s: M Performed By: #### L 600.23106 #### [facility] [address] [place] [address] UA BILIRUBIN Negative Normal NEGATIVE [facility] Comment on above: Order Comment: Campu s: M Performed By: #### L 600.87276 #### [facility] [address] [place] [address] UA BLOOD Negative Normal NEGATIVE [facility] Comment on above: Order Comment: Campu s: M Performed By: #### L 600.12698 #### [facility] [address] [place] [address] UA KETONE 20 Normal NEGATIVE [facility] Comment on above: Order Comment: Campu s: M Performed By: #### L 600.55297 #### [facility] [address] [place] [address] UA LK ESTERASE Negative Normal NEGATIVE [facility] Comment on above: Order Comment: Campu s: M Performed By: #### L 600.60978 #### [facility] [address] [place] [address] UA NITRITE Negative Normal NEGATIVE [facility] Comment on above: Order Comment: Campu s: M Performed By: #### L 600.85824 #### [facility] [address] [place] [address] UA PH 5.0 Normal 5-6 [facility] Comment on above: Order Comment: Campu s: M Performed By: #### L 600.52852 #### [facility] [address] [place] [address] UA PROTEIN 30 Normal NEGATIVE [facility] Comment on above: Order Comment: Campu s: M Performed By: #### L 600.78302 #### [facility] [address] [place] [address] UA RBC 2 RBC/HPF Normal 0-3 [facility] Comment on above: Order Comment: Campu s: M Performed By: #### L 600.16363 #### [facility] [address] [place] [address] UA SPEC GRAV 1.028 Normal 1.005-1.030 [facility] Comment on above: Order Comment: Campu s: M Performed By: #### L 600.43277 #### [facility] [address] [place] [address] UA UROBILINOGEN 2.0 Normal NORMAL [facility] Comment on above: Order Comment: Campu s: M Performed By: #### L 600.08416 #### [facility] [address] [place] [address] UA WBC 2 WBC/HPF Normal 0-5 [facility] Comment on above: Order Comment: Campu s: M Performed By: #### L 600.90299 #### [facility] [address] [place] [address] CT HEAD/BRAIN W/O CONon 04-25 CT HEAD/BRAIN [...] change(s). Atlanto-axial arthritic changes are minimally imaged. [employer] (topogram) images: Non-diagnostic. IMPRESSION: No CT evidence of acute intracranial abnormality. 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 This report was electronically signed by Janice Mark MD 05/11/2021 11:09 PM Reported By: JANICE MARK MD Signed By: JANICE MARK MD [facility] 03-05-2021 Absolute nRBC <0.01 Normal <0.01 [facility] Comment on above: Performed By: #### C MP, CBC ####[facility] [address] [place] [address] Erythrocyte distribution width (RBC) [Ratio] 15.0 % Normal 11.5-15.0 [facility] Comment on above: Performed By: #### C MP, CBC ####[facility] [address] [place] [address] Hematocrit (Bld) [Volume fraction] 31.8 % Low 39.0-51.0 [facility] Comment on above: Performed By: #### C MP, CBC ####[facility] [address] [place] [address] Hemoglobin (Bld) [Mass/Vol] 10.8 g/dL Low 13.0-17.0 [facility] Comment on above: Performed By: #### C MP, CBC ####[facility] [place] [address] MCH 30.5 pG Normal 26.0-34.0 [facility] Comment on above: Performed By: #### C MP, CBC ####[facility] [address] [place] [phone] MCHC (RBC) [Mass/Vol] 34.0 g/dL Normal 30.5-36.0 [facility] Comment on above: Performed By: #### C MP, CBC ####[facility] [address] [place] [phone] MCV (RBC) [Entitic vol] 89.8 fL Normal 80.0-100.0 [facility] Comment on above: Performed By: #### C MP, CBC ####[facility] [address] [place] [phone] Platelet mean volume (Bld) [Entitic vol] 11.0 fL Normal 9.0-12.7 [facility] Comment on above: Performed By: #### C MP, CBC ####[facility] [address] [place], [place] [phone] Platelets (Bld) [#/Vol] 205 10*3/uL Normal 150-400 [facility] Comment on above: Performed By: #### C MP, CBC ####[facility] [address] RBC (Bld) [#/Vol] 3.54 10*6/uL Low 4.20-6.00 [facility] Comment on above: Performed By: #### C MP, CBC ####[facility] [address] [place], [place] [phone] WBC (Bld) [#/Vol] 5.17 10*3/uL Normal 3.70-11.00 [facility] Comment on above: Performed By: #### C MP, CBC ####[facility] [address] [place] [phone] CNDSon 03-05-2021 DS HNO ID: [id number] Author: James Pierce MD Service: Hospital Medicine [...] MD Consulting: Cameron Arnold MD Primary Service: [facility] 2 Consulting: Renny Merrill MD MY CONDITION [...] Patient/Parents to call for appointment?: Scheduled Chelsy Melissa, SEXUAL HEALTH PHYSICIAN.[facility] [phone] [facility] [address] PCP Requested Referral Additional Provider to Provider [...] On since Sep while he was in [place]. He saw GI and PCP in [place] without much improvement. Over last few weeks [...] episode of diarrhea last year while in [place] but kostas (more content not included)... Normal [facility] CONSULT PROGon 03-05-2021 CONSULT PROG HNO ID: [id number] Author: Renny Merrill MD Service: Infectious Disease [...] reviewed [facility] Pager: [phone] March 05, 2021 4:36 PM Patient seen and examined. Discussed with LOCKER ROOM ATTENDANT. Anton findings confirmed. Plan as outlined. Renny Merrill MD [phone] 03/05/2021 5:17 PM [facility] CONSULT PROG HNO ID: [id number] Author: Penelope Argueta MD Service: Gastroenterology Author [...] March 09, 2021 @ 12:45 pm in [place] Patient seen and examined. Discussed with mid level provider. Anton findings confirmed. Plan as outlined. Feeling better. at bedside and eyhccpwm-xx-kok Peg conferenced call. Eating more. Stools are [...] Cooperative. NAD EYES: No scleral icterus SKIN: Dutton in color. No jaundice LUNGS: Clear to [...] Nodes: N (more content not included)... Normal [facility] Comp Metabolic Panelon 03-05 Albumin [Mass/Vol] 2.7 g/dL Low 3.9-4.9 [facility] Comment on above: Performed By: #### C MP, CBC ####[facility] [address] [place] [address] ALP [Catalytic activity/Vol] 51 U/L Normal 38-113 [facility] Comment on above: Performed By: #### C MP, CBC ####[facility] [address]sh[address] [place] [address] ALT [Catalytic activity/Vol] 12 U/L Normal 10-54 [facility] Comment on above: Performed By: #### C MP, CBC ####[facility] [address]okze[address] [place] [address] Anion gap [Moles/Vol] 7 mmol/L Low 9-18 [facility] Comment on above: Performed By: #### C MP, CBC ####[facility] [address] [place] [address] AST [Catalytic activity/Vol] 14 U/L Normal 14-40 [facility] Comment on above: Performed By: #### C MP, CBC ####[facility] Jhdprfsnhy[address] [place] [address] Bilirubin [Mass/Vol] 0.3 mg/dL Normal 0.2-1.3 [facility] Comment on above: Performed By: #### C MP, CBC ####[facility] Uoripwnfhx67[address] [place] [address] Calcium [Mass/Vol] 8.2 mg/dL Low 8.5-10.2 [facility] Comment on above: Performed By: #### C MP, CBC ####[facility] [address]jreprdc[address] [place] [address] Chloride [Moles/Vol] 103 mmol/L Normal 97-105 [facility] Comment on above: Performed By: #### C MP, CBC ####[facility] Ujcxafpwdv[address] [place] [address] CO2 [Moles/Vol] 29 mmol/L Normal 22-30 [facility] Comment on above: Performed By: #### C MP, CBC ####[facility] K[address]ls[address] [place] [address] Creatinine [Mass/Vol] 1.02 mg/dL Normal 0.73-1.22 [facility] Comment on above: Performed By: #### C MP, CBC ####[facility] [address] [place] [address] eGFR- Amer. >60 Normal [facility] Comment on above: Performed By: #### C MP, CBC ####[facility] [address]of[address] [place] [address] eGFR-All Other Races >60 Normal [facility] Comment on above: Result Comment: eGFR [...] GFR. Performed By: #### C MP, CBC ####[facility] [address] [place] [phone] Glucose [Mass/Vol] 144 mg/dL High 74-99 [facility] Comment on above: Result Comment: The [place] Diabetes Association (ADA) provides guidance for cutoff [...] Standards of Medical Care in Diabetes 2016, [place] [employer]. Diabetes Care. 2016.39(Suppl 1). Performed By: #### C MP, CBC ####[facility] [address] [place] [address] Potassium [Moles/Vol] 3.7 mmol/L Normal 3.7-5.1 [facility] Comment on above: Performed By: #### C MP, CBC ####[facility] [address] [place] [address] Protein [Mass/Vol] 5.0 g/dL Low 6.3-8.0 [facility] Comment on above: Performed By: #### C MP, CBC ####[facility] [address]xx[address] [place] [address] Sodium [Moles/Vol] 139 mmol/L Normal 136-144 [facility] Comment on above: Performed By: #### C MP, CBC ####[facility] [address]jio[address] [place] [address] Urea nitrogen [Mass/Vol] 5 mg/dL Low 9-24 [facility] Comment on above: Performed By: #### C MP, CBC ####[facility] [address] [place] [address] Magnesiumon 03-05-2021 Magnesium [Mass/Vol] 1.8 mg/dL Normal 1.7-2.3 [facility] Comment on above: Performed By: #### P HOS, MG1 ####[facility] [address] [place] [address] NUTRITIONon 03-05-2021 NUTRITION HNO ID: [id number] Author: Zoe Lay RD Service: Nutrition Therapy Author Type: Registered Dietitian Type: Nutrition Filed: 03/05/2021 3:00 PM Note Text: NUTRITION THERAPY PROGRESS NOTE SERVICE DATE: 03/05/2021 SERVICE TIME: 12:50 pm Nutrition Assessment: Recommended Malnutrition Diagnosis: Severe Protein-Calorie Malnutrition (03/02/21 1017 : Martha Slaughter RD) Estimated kilocalorie needs: 4788-5238 Calorie Calculation Method: 25-35 kcals/kg Estimated protein [...] March 05, 2021 TIME: 2:59 PM PAGER: [phone] Normal [facility] Phosphoruson 03-05-2021 Phosphate [Mass/Vol] 3.1 mg/dL Normal 2.7-4.8 [facility] Comment on above: Performed By: #### P HOS, MG1 ####[facility] [address] [place] [phone] ANES POSTPROC EVALon 021 ANES POSTPROC EVAL HNO ID: [id number] Author: Delmy Orozco MD Service: Anesthesiology Author Type: Anesthesiologist Type: Anesthesia Postprocedure Evaluation Filed: 03/04/2021 9:52 AM Note Text: POST ANESTHESIA EVALUATION NOTE : 1935 Procedure Summary Date: 03/04/21 Room / Location: [facility] Anesthesia Start: 729 Anesthesia Stop: 818 [...] March 04, 2021 TIME: 9:52 AM CSN: [id number] [facility] ANES PRE-OPon 03-04-2021 ANES PRE-OP HNO ID: [id number] Author: Peng Goodrich MD Service: Anesthesiology Author [...] March 04, 2021 TIME: 7:34 AM CSN: [id number] [facility] BRIEF OP NOTon 03-04-2021 BRIEF OP NOT HNO ID: [id number] Author: Cameron Arnold MD Service: ? Author Type: Physician Type: Brief Op Note Filed: 03/04/2021 8:14 AM Note Text: BRIEF OPERATIVE / PROCEDURE NOTE LOG ID: [id number] SURGERY/PROCEDURE DATE: 03/04/2021 INCISION/PROCEDURE START TIME: 7:38 AM INCISION CLOSE/PROCEDURE END TIME: 8:05 AM SURGEON(S)/PROCEDURAL IST(S) AND ASSEMBLY INSTRUCTIONS WRITER(S): Surgeon(s) and Role: * Cameron Arnold MD [...] March 04, 2021 TIME: 8:12 AM Normal [facility] CBCon 03-04-2021 Absolute nRBC <0.01 Normal <0.01 [facility] Comment on above: Performed By: #### C BC, CMP ####[facility] [address] [place] [address] Erythrocyte distribution width (RBC) [Ratio] 14.8 % Normal 11.5-15.0 [facility] Comment on above: Performed By: #### C BC, CMP ####[place] [address] Hematocrit (Bld) [Volume fraction] 34.9 % Low 39.0-51.0 [facility] Comment on above: Performed By: #### C BC, CMP ####[facility] [address] [place] [address] Hemoglobin (Bld) [Mass/Vol] 11.9 g/dL Low 13.0-17.0 [facility] Comment on above: Performed By: #### C BC, CMP ####[place] [address] MCH 30.3 pG Normal 26.0-34.0 [facility] Comment on above: Performed By: #### C BC, CMP ####[place] [address] MCHC (RBC) [Mass/Vol] 34.1 g/dL Normal 30.5-36.0 [facility] Comment on above: Performed By: #### C BC, CMP ####[place] [address] MCV (RBC) [Entitic vol] 88.8 fL Normal 80.0-100.0 [facility] Comment on above: Performed By: #### C BC, CMP ####[place] [address] Platelet mean volume (Bld) [Entitic vol] 11.0 fL Normal 9.0-12.7 [facility] Comment on above: Performed By: #### C BC, CMP ####[facility] [address] [place] [phone] Platelets (Bld) [#/Vol] 213 10*3/uL Normal 150-400 [facility] Comment on above: Performed By: #### C BC, CMP ####[facility] [address] [place] [phone] RBC (Bld) [#/Vol] 3.93 10*6/uL Low 4.20-6.00 [facility] Comment on above: Performed By: #### C BC, CMP ####[facility] [address] [place] [phone] WBC (Bld) [#/Vol] 5.54 10*3/uL Normal 3.70-11.00 [facility] Comment on above: Performed By: #### C BC, CMP ####[facility] Zc[address]nbp[address]21 [address] CONSULT PROGon 03-04-2021 CONSULT PROG HNO ID: [id number] Author: Renny Merrill MD Service: Infectious Disease [...] reviewed Imaging data: reviewed Renny Merrill MD [phone] 03/04/2021 12:37 PM Normal [facility] Comp Metabolic Panelon 03-04 Albumin [Mass/Vol] 3.0 g/dL Low 3.9-4.9 [facility] Comment on above: Performed By: #### C BC, CMP ####[facility] [address] [place] [address] ALP [Catalytic activity/Vol] 60 U/L Normal 38-113 [facility] Comment on above: Performed By: #### C BC, CMP ####[facility] [address] [place] [address] ALT [Catalytic activity/Vol] 13 U/L Normal 10-54 [facility] Comment on above: Performed By: #### C BC, CMP ####[facility] [address] [place] [address] Anion gap [Moles/Vol] 9 mmol/L Normal 9-18 [facility] Comment on above: Performed By: #### C BC, CMP ####[facility] [address] [place] [address] AST [Catalytic activity/Vol] 15 U/L Normal 14-40 [facility] Comment on above: Performed By: #### C BC, CMP ####[facility] [address]xb[address] [place] [address] Bilirubin [Mass/Vol] 0.3 mg/dL Normal 0.2-1.3 [facility] Comment on above: Performed By: #### C BC, CMP ####[facility] [address] [place] [address] Calcium [Mass/Vol] 8.9 mg/dL Normal 8.5-10.2 [facility] Comment on above: Performed By: #### C BC, CMP ####[facility] [address] [place] [address] Chloride [Moles/Vol] 100 mmol/L Normal 97-105 [facility] Comment on above: Performed By: #### C BC, CMP ####[facility] [address]qiuihtu[address] [place] [address] CO2 [Moles/Vol] 26 mmol/L Normal 22-30 [facility] Comment on above: Performed By: #### C BC, CMP ####[facility] Tsg[address]brwyu0627 [phone] Creatinine [Mass/Vol] 1.04 mg/dL Normal 0.73-1.22 [facility] Comment on above: Performed By: #### C BC, CMP ####[facility] [address] [place] [phone] eGFR- Amer. >60 Normal [facility] Comment on above: Performed By: #### C BC, CMP ####[facility] Dvdbdggblc5381 [address] eGFR-All Other Races >60 Normal [facility] Comment on above: Result Comment: eGFR [...] GFR. Performed By: #### C BC, CMP ####[facility] [address]cs[address] [place] [phone] Glucose [Mass/Vol] 103 mg/dL High 74-99 [facility] Comment on above: Result Comment: The [place] Diabetes Association (ADA) provides guidance for cutoff [...] Standards of Medical Care in Diabetes 2016, [place] [employer]. Diabetes Care. 2016.39(Suppl 1). Performed By: #### C BC, CMP ####[facility] [address]xj[address] [place] [address] Potassium [Moles/Vol] 3.5 mmol/L Low 3.7-5.1 [facility] Comment on above: Performed By: #### C BC, CMP ####[facility] [address]ylu8[address] [place] [address] Protein [Mass/Vol] 5.7 g/dL Low 6.3-8.0 [facility] Comment on above: Performed By: #### C BC, CMP ####[facility] W[address]desssl[address]6417 [place] [address] Sodium [Moles/Vol] 135 mmol/L Low 136-144 [facility] Comment on above: Performed By: #### C BC, CMP ####[facility] Fpr[address]wooje[address] [place] [address] Urea nitrogen [Mass/Vol] 8 mg/dL Low 9-24 [facility] Comment on above: Performed By: #### C BC, CMP ####[facility] [address] [place] [address] Magnesiumon 03-04-2021 Magnesium [Mass/Vol] 1.7 mg/dL Normal 1.7-2.3 [facility] Comment on above: Performed By: #### P HOS, MG1 ####[facility] [address] [place] [address] OPERATIVE NOon 03-04-2021 OPERATIVE NO HNO ID: [id number] Author: Cameron Arnold MD Service: ? Author Type: Physician Type: Operative Report Filed: 03/05/2021 8:26 AM Note Text: [facility] - Operative Report HEADINGS, SERGO Suárez : 1935 AGE: 86. SEX: M PATIENT TYPE: I HOSP SVC: INTM LOCATION: [facility] ATTENDING PHYSICIAN: James Pierce M.D. CSN NUMBER: [id number] DATE OF SURGERY/PROCEDURE: 03/04/2021 INCISION/PROCEDURE START TIME: [...] out mild proctitis. SURGEON: Cameron Arnold M.D. ASSEMBLY INSTRUCTIONS WRITER: Christos Hahn. SURGERY/PROCEDURE: Colonoscopy with polypectomy and [...] course and results of histology. LOG ID: [id number]. Cameron Arnold M.D. ALEXANDRAM:[id number] /[id number] [facility] Phosphoruson 03-04-2021 Phosphate [Mass/Vol] 2.6 mg/dL Low 2.7-4.8 [facility] Comment on above: Performed By: #### P HOS, MG1 ####[facility] [address] [place] [phone] SURGICAL PATHOLOGYon 021 SURGICAL PATHOLOGY * ADDENDUM PRESENT Specimen originated from [facility] Specimen #: [id number] Submitting Physician: Cameron Arnold M.D. FINAL DIAGNOSIS [...] and lymphocytic colitis. Am J Surg Pathol 2002;26:7304-9997. Mellisa Brito M.D. (Electronic Signature) ____ SPECIMEN SUBMITTED A: ASCENDING COLON POLYP B: ASCENDING COLON, BIOPSY C: RECTAL POLYP ADDENDUM Date Ordered: 03/15/2021 Date Reported: 03/15/2021 3. CMV and adenovirus immunostains are negative for viral antigens. Laboratory Developed Test (LDT) Disclaimer: Positive and negative controls stain appropriately. Performance characteristics of immunohistochemical, immunofluorescent and chromogenic in-situ hybridization tests have been determined by [facility] Pathology and Laboratory Medicine [place] ([facility]) in a manner consistent with CLIA requirements. One or more of these tests have not been cleared or approved by the FDA. [facility] is regulated under CLIA as qualified [...] in one cassette. Gross examination performed at [facility], [address] [place] [address] 03/04/2021 7:27:56 PM Date of Report: 03/11/2021 Date of Procedure: 03/04/2021 Date of Receipt: 03/04/2021 Submitted by: Cameron Arnold M.D. Location: 2 S Diagnostic interpretation performed at [place] [address]. CLIA Number: [id number] Normal [facility] CBCon 03-03-2021 Absolute nRBC <0.01 Normal <0.01 [facility] Comment on above: Performed By: #### C BC, CMP ####[facility] [address] [place], [place] [phone] Erythrocyte distribution width (RBC) [Ratio] 14.8 % Normal 11.5-15.0 [facility] Comment on above: Performed By: #### C BC, CMP ####[facility] Qagkqcheat8892 [phone] Hematocrit (Bld) [Volume fraction] 33.4 % Low 39.0-51.0 [facility] Comment on above: Performed By: #### C AMIRA, CMP ####[facility] [address] [place] [address] Hemoglobin (Bld) [Mass/Vol] 11.2 g/dL Low 13.0-17.0 [facility] Comment on above: Performed By: #### C BC, CMP ####[facility] [address] [place] [address] MCH 30.0 pG Normal 26.0-34.0 [facility] Comment on above: Performed By: #### C AMIRA, CMP ####[facility] [address] [place] [address] MCHC (RBC) [Mass/Vol] 33.5 g/dL Normal 30.5-36.0 [facility] Comment on above: Performed By: #### C AMIRA, CMP ####[place] [address] MCV (RBC) [Entitic vol] 89.5 fL Normal 80.0-100.0 [facility] Comment on above: Performed By: #### C AMIRA, CMP ####[place] [address] Platelet mean volume (Bld) [Entitic vol] 11.1 fL Normal 9.0-12.7 [facility] Comment on above: Performed By: #### C AMIRA, CMP ####[place] [address] Platelets (Bld) [#/Vol] 194 10*3/uL Normal 150-400 [facility] Comment on above: Performed By: #### C AMIRA, CMP ####[facility] [address] [place] [address] RBC (Bld) [#/Vol] 3.73 10*6/uL Low 4.20-6.00 [facility] Comment on above: Performed By: #### C AMIRA, CMP ####[place] [address] WBC (Bld) [#/Vol] 5.24 10*3/uL Normal 3.70-11.00 [facility] Comment on above: Performed By: #### C AMIRA, CMP ####[facility] [address] [place], [place] [address] CONSULT PROGon 03-03-2021 CONSULT PROG HNO ID: [id number] Author: Cameron Arnold MD Service: Gastroenterology Author [...] Cooperative. NAD EYES: No scleral icterus SKIN: Dutton in color. No jaundice LUNGS: Clear to [...] - s (more content not included)... Normal [facility] CONSULT PROG HNO ID: [id number] Author: Renny Merrill MD Service: Infectious Disease [...] final until Authenticated by responsible provider. Normal [facility] Comp Metabolic Panelon 03-03 Albumin [Mass/Vol] 2.8 g/dL Low 3.9-4.9 [facility] Comment on above: Performed By: #### C BC, CMP ####[facility] [address] [place] [address] ALP [Catalytic activity/Vol] 56 U/L Normal 38-113 [facility] Comment on above: Performed By: #### C BC, CMP ####[facility] Qsqjvkakst7[address] [place] [address] ALT [Catalytic activity/Vol] 11 U/L Normal 10-54 [facility] Comment on above: Performed By: #### C BC, CMP ####[facility] [address]wed[address]qwzi[address] [place] [address] Anion gap [Moles/Vol] 10 mmol/L Normal 9-18 [facility] Comment on above: Performed By: #### C BC, CMP ####[facility] [address]du[address] [place] [address] AST [Catalytic activity/Vol] 12 U/L Low 14-40 [facility] Comment on above: Performed By: #### C BC, CMP ####[facility] [address]uy[address]xq[address] [place] [address] Bilirubin [Mass/Vol] 0.4 mg/dL Normal 0.2-1.3 [facility] Comment on above: Performed By: #### C BC, CMP ####[facility] [address]je[address]ys6[address] [place] [address] Calcium [Mass/Vol] 8.5 mg/dL Normal 8.5-10.2 [facility] Comment on above: Performed By: #### C BC, CMP ####[facility] [address]avxwwgpj6498 [place] [address] Chloride [Moles/Vol] 101 mmol/L Normal 97-105 [facility] Comment on above: Performed By: #### C BC, CMP ####[facility] [address] [place] [phone] CO2 [Moles/Vol] 24 mmol/L Normal 22-30 [facility] Comment on above: Performed By: #### C BC, CMP ####[facility] Z[address]zsrgvx39[address] [place] [address] Creatinine [Mass/Vol] 1.15 mg/dL Normal 0.73-1.22 [facility] Comment on above: Performed By: #### C BC, CMP ####[facility] [address] [place] [address] eGFR- Amer. >60 Normal [facility] Comment on above: Performed By: #### C BC, CMP ####[facility] [address] [place] [address] eGFR-All Other Races >60 Normal [facility] Comment on above: Result Comment: eGFR (Estimated GFR) Units of measure: mL/min/1.73 meters squared eGFR is derived from the reexpressed MDRD Study equation using the following parameters: serum creatinine, age, gender and race. The creatinine assay has been calibrated to be traceable to [employer]. An eGFR <60 mL/min/1.73m2 for >3 months is consistent with chronic kidney disease. Refer to KDOQI guidelines for clinical interpretation. In patients with unstable renal function, e.g. those with acute kidney injury, the eGFR may not accurately reflect actual GFR. Performed By: #### C BC, CMP ####[facility] [address] [place] [phone] Glucose [Mass/Vol] 97 mg/dL Normal 74-99 [facility] Comment on above: Result Comment: The [place] Diabetes Association (ADA) provides guidance for cutoff [...] Standards of Medical Care in Diabetes 2016, [place] [employer]. Diabetes Care. 2016.39(Suppl 1). Performed By: #### C BC, CMP ####[facility] [address]sui[address] [place] [address] Potassium [Moles/Vol] 3.2 mmol/L Low 3.7-5.1 [facility] Comment on above: Performed By: #### C BC, CMP ####[facility] [address] [place] [address] Protein [Mass/Vol] 5.4 g/dL Low 6.3-8.0 [facility] Comment on above: Performed By: #### C BC, CMP ####[facility] [address] [place] [address] Sodium [Moles/Vol] 135 mmol/L Low 136-144 [facility] Comment on above: Performed By: #### C BC, CMP ####[facility] [address] [place] [address] Urea nitrogen [Mass/Vol] 16 mg/dL Normal 9-24 [facility] Comment on above: Performed By: #### C BC, CMP ####[facility] [address] [place] [address] Ferritinon 03-03-2021 Ferritin [Mass/Vol] 297.3 ng/mL Normal 30.3-565.7 [facility] Comment on above: Performed By: #### B 12 SERFOAlan FERR ####[facility] [address] [place] [address] Folate, Serumon 03-03-2021 Folate [Mass/Vol] 15.3 ng/mL Normal >4.7 [facility] Comment on above: Performed By: #### B 12, SERFOL, FERR ####[facility] [address] [place] [address] Iron and TIBCon 03-03-2021 Iron [Mass/Vol] 27 ug/dL Low 41-186 [facility] Comment on above: Performed By: #### I [place] ####[facility] [address] [place] [address] TIBC 169 ug/dL Low 232-386 [facility] Comment on above: Performed By: #### I [place] ####[facility] [address] [place] [address] Transferrin Saturatn 16 % Normal 15-57 [facility] Comment on above: Performed By: #### I [place] ####[facility] [address] [place] [address] Magnesiumon 03-03-2021 Magnesium [Mass/Vol] 1.8 mg/dL Normal 1.7-2.3 [facility] Comment on above: Performed By: #### M G1 ####[facility] [address] [place] [address] Phosphoruson 03-03-2021 Phosphate [Mass/Vol] 2.2 mg/dL Low 2.7-4.8 [facility] Comment on above: Performed By: #### P HOS ####[facility] [address] [place] [address] Vitamin B12on 03-03-2021 Cobalamin (Vitamin B12) [Mass/Vol] pg/mL High 232-1245 [facility] Comment on above: Performed By: #### B 12, SERFOL, FERR ####[facility] [address] [place] [address] CBCon 03-02-2021 Absolute nRBC <0.01 Normal <0.01 [facility] Comment on above: Performed By: #### C BC, CMP ####[place] [address] Erythrocyte distribution width (RBC) [Ratio] 14.6 % Normal 11.5-15.0 [facility] Comment on above: Performed By: #### C BC, CMP ####[facility] [address] [place] [address] Hematocrit (Bld) [Volume fraction] 34.5 % Low 39.0-51.0 [facility] Comment on above: Performed By: #### C AMIRA, CMP ####[facility] Qkefrxkwzs0252 [place] [address] Hemoglobin (Bld) [Mass/Vol] 11.7 g/dL Low 13.0-17.0 [facility] Comment on above: Performed By: #### C AMIRA, CMP ####[facility] Xddchitrho[address] [place] [address] MCH 30.2 pG Normal 26.0-34.0 [facility] Comment on above: Performed By: #### C AMIRA, CMP ####[facility] [address] [place] [address] MCHC (RBC) [Mass/Vol] 33.9 g/dL Normal 30.5-36.0 [facility] Comment on above: Performed By: #### C AMIRA, CMP ####[facility] [address] [place] [address] MCV (RBC) [Entitic vol] 88.9 fL Normal 80.0-100.0 [facility] Comment on above: Performed By: #### C AMIRA, CMP ####[facility] [address] [place] [address] Platelet mean volume (Bld) [Entitic vol] 11.0 fL Normal 9.0-12.7 [facility] Comment on above: Performed By: #### C AMIRA, CMP ####[facility] [address] [place] [address] Platelets (Bld) [#/Vol] 183 10*3/uL Normal 150-400 [facility] Comment on above: Performed By: #### C AMIRA, CMP ####[facility] Nfcsxzxlhj6955 [place] [address] RBC (Bld) [#/Vol] 3.88 10*6/uL Low 4.20-6.00 [facility] Comment on above: Performed By: #### C AMIRA, CMP ####[facility] [address] [place] [address] WBC (Bld) [#/Vol] 6.50 10*3/uL Normal 3.70-11.00 [facility] Comment on above: Performed By: #### C BC, CMP ####[facility] [address] [place] [phone] CONSULTon 03-02-2021 CONSULT HNO ID: [id number] Author: Renny Merrill MD Service: Infectious Disease [...] had similar episode one year ago in [place]. He was evaluated in ED on 02/28 [...] 6 hours., Disp (more content not included)... [facility] CONSULT HNO ID: [id number] Author: Cameron Arnold MD Service: Gastroenterology Author [...] of nocturnal stools. States saw PCP in [place] who recommended Questran (1/2 packet every other [...] of zeinab (more content not included)... Normal [facility] Celiac Scr w Reflexon 2020 IgA [Mass/Vol] 323 mg/dL Normal 70-400 [facility] Comment on above: Performed By: #### C ELSCR ####[facility] [address] [place], [place] [phone] Interpretation No serologic evidenc e of celiac disease. Normal No serologic evidence of celiac disease. [facility] Comment on above: Performed By: #### C ELSCR ####[facility] [address] [place], [place] [phone] Transglutaminase IgA 6 Units Normal <20 [facility] Comment on above: Result Comment: Nega tive : < 20 Units Weak Positive : 20 - 30 Units Moderate Pos to Strong Pos: >30 Units The following results were obtained with the [employer] QUANTA Lite h-tTG IgA [place]. h-tTG IgA values obtained with different manufacturers' assay methods may not be used interchangeably. The magnitude of the reported IgA levels cannot be correlated to an endpoint titer. Performed By: #### C ELSCR ####[facility] [place], [place] [phone] Comp Metabolic Panelon 03-02 Albumin [Mass/Vol] 3.1 g/dL Low 3.9-4.9 [facility] Comment on above: Performed By: #### C BC, CMP ####[facility] [address] [place] [address] ALP [Catalytic activity/Vol] 54 U/L Normal 38-113 [facility] Comment on above: Performed By: #### C BC, CMP ####[place] [address] ALT [Catalytic activity/Vol] 11 U/L Normal 10-54 [facility] Comment on above: Performed By: #### C BC, CMP ####[place] [address] Anion gap [Moles/Vol] 15 mmol/L Normal 9-18 [facility] Comment on above: Performed By: #### C BC, CMP ####[place] [address] AST [Catalytic activity/Vol] 12 U/L Low 14-40 [facility] Comment on above: Performed By: #### C BC, CMP ####[facility] [address] [place] [address] Bilirubin [Mass/Vol] 0.4 mg/dL Normal 0.2-1.3 [facility] Comment on above: Performed By: #### C BC, CMP ####[facility] [address] [place] [address] Calcium [Mass/Vol] 8.5 mg/dL Normal 8.5-10.2 [facility] Comment on above: Performed By: #### C BC, CMP ####[facility] Iqambplnpy0640 [address] Chloride [Moles/Vol] 98 mmol/L Normal 97-105 [facility] Comment on above: Performed By: #### C BC, CMP ####[facility] [address]vcz[address] [place] [phone] CO2 [Moles/Vol] 22 mmol/L Normal 22-30 [facility] Comment on above: Performed By: #### C BC, CMP ####[facility] [address]ejm4995 [place] [phone] Creatinine [Mass/Vol] 1.31 mg/dL High 0.73-1.22 [facility] Comment on above: Performed By: #### C BC, CMP ####[facility] [address]pg[address] [place] [address] eGFR- Amer. >60 Normal [facility] Comment on above: Performed By: #### C BC, CMP ####[facility] N[address]x7135 [place] [address] eGFR-All Other Races 52 . Normal [facility] Comment on above: Result Comment: eGFR [...] GFR. Performed By: #### C BC, CMP ####[facility] Uahnyvfuhx4142 [address] Glucose [Mass/Vol] 73 mg/dL Low 74-99 [facility] Comment on above: Result Comment: The [place] Diabetes Association (ADA) provides guidance for cutoff [...] Standards of Medical Care in Diabetes 2016, [place] [employer]. Diabetes Care. 2016.39(Suppl 1). Performed By: #### C BC, CMP ####[facility] [address] [place] [address] Potassium [Moles/Vol] 3.3 mmol/L Low 3.7-5.1 [facility] Comment on above: Performed By: #### C BC, CMP ####[facility] [address] [place] [address] Protein [Mass/Vol] 5.9 g/dL Low 6.3-8.0 [facility] Comment on above: Performed By: #### C BC, CMP ####[facility] [address] [place] [address] Sodium [Moles/Vol] 135 mmol/L Low 136-144 [facility] Comment on above: Performed By: #### C BC, CMP ####[facility] [address]peuwpr2577 [place] [address] Urea nitrogen [Mass/Vol] 29 mg/dL High 9-24 [facility] Comment on above: Performed By: #### C BC, CMP ####[facility] [address] [place] [address] FAT, FECAL QUALon 03-02-2021 FAT, FECAL NEUTRAL Normal Normal [facility] Comment on above: Performed By: #### F FATQL ####[facility] [address] [place] [address] [phone] FAT, FECAL SPLIT Normal Normal Normal [facility] Comment on above: Result Comment: (NOT E) INTERPRETIVE INFORMATION: Fecal Fat Qualitative Neutral fats include the monoglycerides, diglycerides, and triglycerides while split fats are the free fatty acids that are liberated from them. Impaired synthesis or secretion of pancreatic enzymes or bile may cause an increase in neutral fats while an increase in split fats suggests impaired absorption of nutrients. Performed By: [facility] [address] [place] [address] Wireless Technician: Chelsy Griffith MD Performed By: #### F FATQL ####[facility] [address] [place], [place] [phone] Fecal Lactoferrinon 03-02-20 Fecal Lactoferrin Sp. Request/Comment: - Specimen received in sterile container. Test Result - Positive for lactoferrin, which may indicate presence of fecal white blood cells Critically abnormal [facility] Comment on above: Performed By: #### S TLWBC ####[facility] PXX[address] [place], [place] [address]uzzbpsay[facility] [address]ifubfxaxh[address] [place], [place] [phone] HISTORY PHYSICALon HISTORY PHYSICAL HNO ID: [id number] Author: Alyssa Vasquez MD Service: Hospital Medicine Author Type: Physician Type: HANDP Filed: 03/01/2021 11:03 PM Note Text: DEPARTMENT OF HOSPITAL MEDICINE HISTORY AND PHYSICAL EXAM SERVICE DATE: 03/01/2021 SERVICE TIME: 10:46 PM Primary Care Physician: Walter Loya MD NIGHT AND WEEKEND COVERAGE: [employer] COVERAGE: Days: [phone], please page attending physician. Nights: [phone], please page [place] Hospitalist Night coverage pager [phone]. Subjective CHIEF COMPLAINT: Worsening of diarrhea HPI: This is a 86 year old male with PMH of HTN, AAA, HLD and collagenous colitis who presented to ED due to worsening of his diarrhea. He has diarrhea off / On since Sep while he was in [place]. He saw GI and PCP in [place] without much improvement. Over last few weeks [...] episode of diarrhea last year while in [place] but that resolved with few weeks. Has [...] REPAIR 11/2019 - COLONOSCOP W/ OR W/O [facility] SPEC 03/23/2004 Colonoscopy - COLONOSCOP W/ OR W/O [facility] SPEC 05/05/2008 Colonoscopy, repeat 10 yrs [...] at Unknown erika (more content not included)... [facility] NURSING PROGon 03-02-2021 NURSING PROG HNO ID: [id number] Author: Chantell Chadwick RN Service: ? Author Type: Registered Nurse Type: Nursing Progress Note Filed: 03/02/2021 11:02 AM Note Text: Nursing Progress Note Patient Name: Sergo Suárez Headings Patient Location: [facility] -2 Daily Note:0750: K+ 3.3; message sent to Dr. Pierce. 0800: Dr. Pierce rounds; orders received. 0830: IV Mg hung; pt resting easy in bed. 1000: K+ IV infusing; GI group in to see pt. 1100: stool specimens obtained; bladder scan=70ml; result messaged to Dr. Pierce. This note was completed by: Chantell Chadwick [facility] NUTRITIONon 03-02-2021 NUTRITION HNO ID: [id number] Author: Martha Slaughter RD Service: Nutrition Therapy Author Type: Registered Dietitian Type: Nutrition Filed: 03/02/2021 10:28 AM Note Text: INITIAL ASSESSMENT SERVICE DATE: 03/02/2021 SERVICE TIME: 9:15 am Nutrition Assessment: Recommended Malnutrition Diagnosis: Severe Protein-Calorie Malnutrition In the context of: Chronic Illness or Injury Based on: Unintentional Weight Loss;Insufficient Energy Intake Estimated kilocalorie needs: [phone] Calorie Calculation Method: 25-35 kcals/kg Estimated protein needs 90-100 grams Grams protein determined by: 1.2 - 1.6 g/kg Care Plan: Monitor clinical findings with a goal to advance diet.. Monitor intake. Reviewed physician progress notes and labs. 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 Comment on above: Performed By: #### O BSCN ####[facility] [address] [place] [address] Occult Blood Source: Stool Normal [facility] Comment on above: Performed By: #### O BSCN ####[facility] [address] [place] [address] Ova and Parasite Scron 03-02 Ova and Parasite Scr Sp. Request/Comment : - Specimen received in Ova and Parasite Kit. Culture Result - Negative for Giardia lamblia and Cryptosporidium species by EIA. [facility] Comment on above: Performed By: #### O VAPSC ####[facility] [place], [place] [phone] CBC and Differentialon 03-01 Abs Baso <0.03 Normal <0.11 [facility] Comment on above: Performed By: #### C MP, LIPA, MG1, CBCDIF ####[facility] [address] [place] [address] Abs Eosin <0.03 Normal <0.46 [facility] Comment on above: Performed By: #### C MP, LIPA, MG1, CBCDIF ####[facility] [address] [place] [address] Abs [place] 1.00 k/uL High <0.87 [facility] Comment on above: Performed By: #### C MP, LIPA, MG1, CBCDIF ####[facility] [address] [place] [address] Abs Neut 4.14 k/uL Normal 1.45-7.50 [facility] Comment on above: Performed By: #### C MP, LIPA, MG1, CBCDIF ####[facility] Upwwrspwff0743 [place] [address] Absolute nRBC <0.01 Normal <0.01 [facility] Comment on above: Performed By: #### C MP, LIPA, MG1, CBCDIF ####[facility] [address] [place] [address] Basophils/100 WBC (Bld) 0.3 % [facility] Comment on above: Performed By: #### C MP, LIPA, MG1, CBCDIF ####[facility] [address] [place] [address] DTYPE Auto Diff Normal [facility] Comment on above: Performed By: #### C MP, LIPA, MG1, CBCDIF ####[facility] [address] [place] [address] Eosinophils/100 WBC (Bld) 0.2 % [facility] Comment on above: Performed By: #### C MP, LIPA, MG1, CBCDIF ####[facility] [address] [place] [address] Erythrocyte distribution width (RBC) [Ratio] 14.5 % Normal 11.5-15.0 [facility] Comment on above: Performed By: #### C MP, LIPA, MG1, CBCDIF ####[facility] [address] [place] [address] Hematocrit (Bld) [Volume fraction] 37.9 % Low 39.0-51.0 [facility] Comment on above: Performed By: #### C MP, LIPA, MG1, CBCDIF ####[facility] [address] [place] [address] Hemoglobin (Bld) [Mass/Vol] 12.8 g/dL Low 13.0-17.0 [facility] Comment on above: Performed By: #### C MP, LIPA, MG1, CBCDIF ####[facility] [address] [place] [address] Lymphocytes (Bld) [#/Vol] 1.12 10*3/uL Normal 1.00-4.00 [facility] Comment on above: Performed By: #### C MP, LIPA, MG1, CBCDIF ####[facility] [address] [place] [address] Lymphocytes/100 WBC (Bld) 17.7 % [facility] Comment on above: Performed By: #### C MP, LIPA, MG1, CBCDIF ####[facility] [address]ioqn[address] [place] [address] MCH 30.0 pG Normal 26.0-34.0 [facility] Comment on above: Performed By: #### C MP, LIPA, MG1, CBCDIF ####[facility] [address] [place] [address] MCHC (RBC) [Mass/Vol] 33.8 g/dL Normal 30.5-36.0 [facility] Comment on above: Performed By: #### C MP, LIPA, MG1, CBCDIF ####[facility] [address] [place] [address] MCV (RBC) [Entitic vol] 88.8 fL Normal 80.0-100.0 [facility] Comment on above: Performed By: #### C MP, LIPA, MG1, CBCDIF ####[facility] [address] [place] [address] Monocytes/100 WBC (Bld) 15.8 % Normal [facility] Comment on above: Performed By: #### C MP, LIPA, MG1, CBCDIF ####[facility] [address] [place] [address] Neutrophils/100 WBC (Bld) 66.0 % Normal [facility] Comment on above: Performed By: #### C MP, LIPA, MG1, CBCDIF ####[facility] [address] [place] [address] NRBCs 0.0 /100 WBC Normal 0 [facility] Comment on above: Performed By: #### C MP, LIPA, MG1, CBCDIF ####[facility] [address] [place] [address] Platelet mean volume (Bld) [Entitic vol] 10.2 fL Normal 9.0-12.7 [facility] Comment on above: Performed By: #### C MP, LIPA, MG1, CBCDIF ####[facility] [address] [place] [address] Platelets (Bld) [#/Vol] 192 10*3/uL Normal 150-400 [facility] Comment on above: Performed By: #### C MP, LIPA, MG1, CBCDIF ####[facility] [address] [place] [address] RBC (Bld) [#/Vol] 4.27 10*6/uL Normal 4.20-6.00 [facility] Comment on above: Performed By: #### C MP, LIPA, MG1, CBCDIF ####[facility] [address] [place] [address] WBC (Bld) [#/Vol] 6.31 10*3/uL Normal 3.70-11.00 [facility] Comment on above: Performed By: #### C MP, LIPA, MG1, CBCDIF ####[facility] [address] [place] [address] Comp Metabolic Panelon 03-01 Albumin [Mass/Vol] 3.7 g/dL Low 3.9-4.9 [facility] Comment on above: Performed By: #### C MP, LIPA, MG1, CBCDIF ####[facility] [address] [place] [address] ALP [Catalytic activity/Vol] 62 U/L Normal 38-113 [facility] Comment on above: Performed By: #### C MP, LIPA, MG1, CBCDIF ####[place] [address] ALT [Catalytic activity/Vol] 13 U/L Normal 10-54 [facility] Comment on above: Performed By: #### C MP, LIPA, MG1, CBCDIF ####[facility] [address] [place] [address] Anion gap [Moles/Vol] 14 mmol/L Normal 9-18 [facility] Comment on above: Performed By: #### C MP, LIPA, MG1, CBCDIF ####[facility] [address] [place] [address] AST [Catalytic activity/Vol] 13 U/L Low 14-40 [facility] Comment on above: Performed By: #### C MP, LIPA, MG1, CBCDIF ####[facility] Dolwmcqzpt5419 [address] Bilirubin [Mass/Vol] 0.6 mg/dL Normal 0.2-1.3 [facility] Comment on above: Performed By: #### C MP, LIPA, MG1, CBCDIF ####[facility] [address] [place] [address] Calcium [Mass/Vol] 9.1 mg/dL Normal 8.5-10.2 [facility] Comment on above: Performed By: #### C MP, LIPA, MG1, CBCDIF ####[facility] [address]vgslj[address] [place] [address] Chloride [Moles/Vol] 89 mmol/L Low 97-105 [facility] Comment on above: Performed By: #### C MP, LIPA, MG1, CBCDIF ####[facility] [address]lwmm[address]458 [place] [address] CO2 [Moles/Vol] 23 mmol/L Normal 22-30 [facility] Comment on above: Performed By: #### C MP, LIPA, MG1, CBCDIF ####[facility] [address]hx[address] [place] [address] Creatinine [Mass/Vol] 1.49 mg/dL High 0.73-1.22 [facility] Comment on above: Performed By: #### C MP, LIPA, MG1, CBCDIF ####[facility] Yk[address]jjnzi[address]64 [place] [address] eGFR- Amer. 54 Normal [facility] Comment on above: Performed By: #### C MP, LIPA, MG1, CBCDIF ####[facility] [address]wvlgylxhf04[address] [place] [address] eGFR-All Other Races 45 . Normal [facility] Comment on above: Result Comment: eGFR [...] By: #### C MP, LIPA, MG1, CBCDIF ####[facility] Kobmcbimdk0171 [address] Glucose [Mass/Vol] 102 mg/dL High 74-99 [facility] Comment on above: Result Comment: The [place] Diabetes Association (ADA) provides guidance for cutoff [...] Standards of Medical Care in Diabetes 2016, [place] [employer]. Diabetes Care. 2016.39(Suppl 1). Performed By: #### C MP, LIPA, MG1, CBCDIF ####[facility] X[address] [place] [id number] Potassium [Moles/Vol] 3.6 mmol/L Low 3.7-5.1 [facility] Comment on above: Performed By: #### C MP, LIPA, MG1, CBCDIF ####[facility] Kmibnfkgwe1408 [address] Protein [Mass/Vol] 7.0 g/dL Normal 6.3-8.0 [facility] Comment on above: Performed By: #### C MP, LIPA, MG1, CBCDIF ####[facility] Tnxptgzkpd0065 [address] Sodium [Moles/Vol] 126 mmol/L Low 136-144 [facility] Comment on above: Performed By: #### C MP, LIPA, MG1, CBCDIF ####[facility] [address]jg[address] [place] [id number] Urea nitrogen [Mass/Vol] 34 mg/dL High 9-24 [facility] Comment on above: Performed By: #### C MP, LIPA, MG1, CBCDIF ####[facility] [address] [place] [phone] ED NOTEon 03-01-2021 ED NOTE HNO ID: [id number] Author: Betsey Vera RN Service: ? Author Type: Registered Nurse Type: ED Notes Filed: 03/01/2021 9:08 PM Note Text: Pt was transported Per wheelchair to his hospital room per [facility] ED NOTE HNO ID: [id number] Author: Betsey Vera RN Service: ? Author Type: Registered Nurse Type: ED Notes Filed: 03/01/2021 8:59 PM Note Text: Pt report was [facility] to [facility] ED NOTE HNO ID: [id number] Author: Betsey Vera RN Service: ? Author Type: Registered Nurse Type: ED Notes Filed: 03/01/2021 8:53 PM Note Text: Pt and are updated of [facility] assignment [facility] ED NOTE HNO ID: [id number] Author: Betsey Vera RN Service: ? Author Type: Registered Nurse Type: ED Notes Filed: 03/01/2021 7:53 PM Note Text: Pt was swabbed for the dumont virus Sent to the lab per [facility] ED NOTE HNO ID: [id number] Author: Betsey Vera RN Service: ? Author Type: Registered Nurse Type: ED Notes Filed: 03/01/2021 7:35 PM Note Text: is bedside [facility] ED NOTE HNO ID: [id number] Author: Betsey Vera RN Service: ? Author Type: Registered Nurse Type: ED Notes Filed: 03/01/2021 7:34 PM Note Text: Pt has ambulated to the bathroom Gait is steady [facility] ED NOTE HNO ID: [id number] Author: Betsey Vera RN Service: ? Author Type: Registered Nurse Type: ED Notes Filed: 03/01/2021 7:06 PM Note Text: pts is bedside [facility] ED NOTE HNO ID: [id number] Author: Shawn Griffith RN Service: ? Author Type: Registered Nurse Type: ED Notes Filed: 03/01/2021 4:03 PM Note Text: Pt presents with diarrhea since Monday. Sts he wa sseen here last for dehydration and again over the weekend by urgent care. Pt denies pain. Normal [facility] ED PROV NOTEon 03-01-2021 ED PROV NOTE HNO ID: [id number] Author: Jesenia Soria MD Service: ? Author [...] this a couple of years ago in [place] and states that he drank some type [...] deficit present (more content not included)... Normal [facility] Intermed Rapid COVIDon 03-01 SARS-CoV-2 (COVID-19) RNA JACKELYN+probe Ql (Unsp spec) UPPER RESPIRATORY TRACT SWAB Normal [facility] Comment on above: Performed By: #### I TCOVD ####[place] [id number] [place], [place] [phone] SARS-CoV-2 (COVID-19) RNA JACKELYN+probe Ql (Unsp spec) Negative for COVID19 (SARS CoV2) by RT-PCR or equivalent method. Normal Negative for COVID19 (SARS CoV2) by RT-PCR or equivalent method. [facility] Comment on above: Result Comment: This test was developed and its performance characteristics determined by [facility] Pathology and Laboratory Medicine [place]. This test has been authorized by FDA under an Emergency Use Authorization (EUA). This test has been validated in accordance with the FDA's Guidance Document Policy for Diagnostics Testing in Laboratories Certified to Perform High Complexity Testing under CLIA prior to Emergency use Authorization for Coronavirus Disease 2019 during the Public Health Emergency issued on November 23, 2019. [facility] by [facility] Laboratory, [facility] Pathology and Laboratory Medicine [place], [address] [place], [place] [address]. Performed By: #### I TCOVD ####[address] [phone] Lipaseon 03-01-2021 Lipase [Catalytic activity/Vol] 16 U/L Normal 16-61 [facility] Comment on above: Performed By: #### C MP, LIPA, MG1, CBCDIF ####[facility] [address] [place] [phone] Magnesiumon 03-01-2021 Magnesium [Mass/Vol] 1.9 mg/dL Normal 1.7-2.3 [facility] Comment on above: Performed By: #### C MP, LIPA, MG1, CBCDIF ####[facility] [address] [place] [phone] ALLIED HEALTHon 02-25-2021 ALLIED HEALTH HNO ID: [id number] Author: JESSICA Perez Service: Radiology Author Type: Clinical Java Lead Architect Type: Allied Health Filed: 02/24/2021 10:25 PM [...] Perez February 24, 2021 10:23 PM Normal [facility] C difficile PCRon 02-25-2021 C difficile PCR Negative Normal [facility] Comment on above: Performed By: #### S TLPCR, CDPCR ####[facility] [place], [place] [phone] CT ABD/PEL WO IVCONon 2020 CT ABD/PEL WO IVCON * * *Final Report* * * DATE OF EXAM: Feb 24 2021 10:26PM [facility] 0531 - CT ABD/PEL WO IVCON / [...] subsegmental atelectasis. Linear scarring at left base. Financial Dealers (topogram) images: No additional findings. IMPRESSION: No acute findings. Status post endovascular stent repair of infrarenal abdominal aortic aneurysm with extension into the bilateral common iliac arteries. Aneurysm measures 5.8 x 6 cm, which is slightly smaller compared to prior when it measured 6.4 x 5.7 cm. Aviation Electronics Technician: [facility] Transcribe Date/Time: Feb 24 2021 11:10P Dictated by : CESAR HIGGINBOTHAM MD This examination was interpreted and the report reviewed and electronically signed by: CESAR HIGGINBOTHAM MD on Feb 24 2021 11:23PM EST [id number] [facility] ED NOTEon 02-25-2021 ED NOTE HNO ID: [id number] Author: Richelle Rodrgiuez RN Service: Nursing Author Type: Registered Nurse Type: ED Notes Filed: 02/24/2021 11:58 PM Note Text: VSS, IV removed. Patient and are aware of discharge instructions, follow up with PCP and GI. They are aware that stool cultures are pending and will be notified if a positive result occurs. Ambulated to leave ER in stable condition. Thankful for care at time of departure. [facility] ED NOTE HNO ID: [id number] Author: Richelle Rodriguez RN Service: Nursing Author Type: Registered Nurse Type: ED Notes Filed: 02/24/2021 11:40 PM Note Text: dano Leon departs from room. [facility] ED NOTE HNO ID: [id number] Author: Maged Dye RN Service: Nursing Author Type: Registered Nurse Type: ED Notes Filed: 02/24/2021 11:28 PM Note Text: report given to Richelle KABA [facility] Enteric Bact Pnl PCRon 02-25 Campy jejun/coli DNA Not detected Normal [facility] Comment on above: Performed By: #### S TLPCR, CDPCR ####[place] [phone] Salmonella spp. DNA Not detected [facility] Comment on above: Performed By: #### S TLPCR, CDPCR ####[facility] [place], [place] [phone] Shiga toxin gene(s) Not detected [facility] Comment on above: Performed By: #### S TLPCR, CDPCR ####[place] [phone] Shigella/EIEC DNA Not detected [facility] [place] [facility] Comment on above: Performed By: #### S TLPCR, CDPCR ####[place] [phone] Urinalysison 02-25-2021 Bilirubin, Urine Negative Normal Negative [facility] Comment on above: Performed By: #### U A, UAMIC ####[facility] [address] [place], [place] [phone] Clarity (U) Clear Normal Clear [facility] Comment on above: Performed By: #### U A UAMIC ####[facility] [address] [place], [place] [phone] Color (U) Yellow Normal Yellow [facility] Comment on above: Performed By: #### U A, UAMIC ####[facility] [address] [place] [address] Glucose Ql (U) Negative Normal Negative [facility] Comment on above: Performed By: #### U A, UAMIC ####[facility] [address] [place] [address] Hemoglobin/Blood,Ur Trace Critically abnormal Negative [facility] Comment on above: Performed By: #### U A, UAMIC ####[facility] [address] [place] [address] Ketones Ql (U) Negative Normal [facility] Comment on above: Performed By: #### U A, UAMIC ####[facility] [address] [place] [address] Leukest Negative Normal [facility] Comment on above: Performed By: #### U A, UAMIC ####[facility] [address] [place] [address] Nitrite Ql (U) Negative Normal [facility] Comment on above: Performed By: #### U A, UAMIC ####[facility] [address] [place] [address] pH (U) 6.0 [pH] Normal 5.0-8.0 [facility] Comment on above: Performed By: #### U A, UAMIC ####[place] [address] Protein, Urine Negative Normal [facility] Comment on above: Performed By: #### U A, UAMIC ####[facility] [address] [place] [address] Specific [place], Ur 1.010 Normal 1.005-1.030 [facility] Comment on above: Performed By: #### U A, UAMIC ####[facility] [address] [place] [address] Urobilinogen Qn (U) 0.2 {Fariha'U}/dL Normal 0.2-1.0 [facility] Comment on above: Performed By: #### U A, UAMIC ####[facility] [address] [place] [phone] Urine Microscopic (FOR LAB U SE ONLY)on 02-25-2021 Cast SEE COMMENT Normal 0 [facility] Comment on above: Result Comment: 0 Performed By: #### U A, UAMIC ####[facility] [address] [place] [address] Epithelial cells LM Ql (Urine sed) SEE COMMENT Normal [facility] Comment on above: Result Comment: 0-5 Squamous Epithelial Cells Performed By: #### U A, UAMIC ####[facility] [address] [place] [address] RBC 0-3 Normal 0-3 [facility] Comment on above: Performed By: #### U A, UAMIC ####[facility] [address] [place] [address] WBC 0-5 Normal 0-5 [facility] Comment on above: Performed By: #### U A, UAMIC ####[facility] [address] [place] [address] CBC and Differentialon 02-24 Abs Baso <0.03 Normal <0.11 [facility] Comment on above: Performed By: #### L IPA, CBCDIF, CMP, MG1 ####[facility] [address] [place] [address] Abs Eosin <0.03 Normal <0.46 [facility] Comment on above: Performed By: #### L IPA, CBCDIF, CMP, MG1 ####[place] [address] Abs [place] 1.11 k/uL High <0.87 [facility] Comment on above: Performed By: #### L IPA, CBCDIF, CMP, MG1 ####[facility] [address] [place] [address] Abs Neut 4.91 k/uL Normal 1.45-7.50 [facility] Comment on above: Performed By: #### L IPA, CBCDIF, CMP, MG1 ####[facility] [address] [place] [address] Absolute nRBC <0.01 Normal <0.01 [facility] Comment on above: Performed By: #### L IPA, CBCDIF, CMP, MG1 ####[place] [address] Basophils/100 WBC (Bld) 0.3 % [facility] Comment on above: Performed By: #### L IPA, CBCDIF, CMP, MG1 ####[place] [address] DTYPE Auto Diff Normal [facility] Comment on above: Performed By: #### L IPA, CBCDIF, CMP, MG1 ####[place] [address] Eosinophils/100 WBC (Bld) 0.3 % [facility] Comment on above: Performed By: #### L IPA, CBCDIF, CMP, MG1 ####[place] [address] Erythrocyte distribution width (RBC) [Ratio] 15.5 % High 11.5-15.0 [facility] Comment on above: Performed By: #### L IPA, CBCDIF, CMP, MG1 ####[place] [address] Hematocrit (Bld) [Volume fraction] 39.1 % Normal 39.0-51.0 [facility] Comment on above: Performed By: #### L IPA, CBCDIF, CMP, MG1 ####[place] [address] Hemoglobin (Bld) [Mass/Vol] 13.0 g/dL Normal 13.0-17.0 [facility] Comment on above: Performed By: #### L IPA, CBCDIF, CMP, MG1 ####[place] [address] Lymphocytes (Bld) [#/Vol] 1.79 10*3/uL Normal 1.00-4.00 [facility] Comment on above: Performed By: #### L IPA, CBCDIF, CMP, MG1 ####[place] [address] Lymphocytes/100 WBC (Bld) 22.7 % [facility] Comment on above: Performed By: #### L IPA, CBCDIF, CMP, MG1 ####[place] [phone] MCH 30.2 pG Normal 26.0-34.0 [facility] Comment on above: Performed By: #### L IPA, CBCDIF, CMP, MG1 ####[facility] [address] [place] [address] MCHC (RBC) [Mass/Vol] 33.2 g/dL Normal 30.5-36.0 [facility] Comment on above: Performed By: #### L IPA, CBCDIF, CMP, MG1 ####[facility] [address] [place] [address] MCV (RBC) [Entitic vol] 90.7 fL Normal 80.0-100.0 [facility] Comment on above: Performed By: #### L IPA, CBCDIF, CMP, MG1 ####[place] [address] Monocytes/100 WBC (Bld) 14.1 % Normal [facility] Comment on above: Performed By: #### L IPA, CBCDIF, CMP, MG1 ####[facility] [address] [place] [address] Neutrophils/100 WBC (Bld) 62.6 % Normal [facility] Comment on above: Performed By: #### L IPA, CBCDIF, CMP, MG1 ####[place] [address] NRBCs 0.0 /100 WBC Normal 0 [facility] Comment on above: Performed By: #### L IPA, CBCDIF, CMP, MG1 ####[facility] [address] [place] [address] Platelet mean volume (Bld) [Entitic vol] 11.3 fL Normal 9.0-12.7 [facility] Comment on above: Performed By: #### L IPA, CBCDIF, CMP, MG1 ####[facility] [address] [place] [address] Platelets (Bld) [#/Vol] 211 10*3/uL Normal 150-400 [facility] Comment on above: Performed By: #### L IPA, CBCDIF, CMP, MG1 ####[facility] [address] [place] [phone] RBC (Bld) [#/Vol] 4.31 10*6/uL Normal 4.20-6.00 [facility] Comment on above: Performed By: #### L IPA, CBCDIF, CMP, MG1 ####[facility] [address] [place] [address] WBC (Bld) [#/Vol] 7.87 10*3/uL Normal 3.70-11.00 [facility] Comment on above: Performed By: #### L IPA, CBCDIF, CMP, MG1 ####[facility] [address] [place] [address] Comp Metabolic Panelon 02-24 Albumin [Mass/Vol] 3.8 g/dL Low 3.9-4.9 [facility] Comment on above: Performed By: #### L IPA, CBCDIF, CMP, MG1 ####[facility] [address] [place] [address] ALP [Catalytic activity/Vol] 59 U/L Normal 38-113 [facility] Comment on above: Performed By: #### L IPA, CBCDIF, CMP, MG1 ####[facility] [address] [place] [address] ALT [Catalytic activity/Vol] 15 U/L Normal 10-54 [facility] Comment on above: Performed By: #### L IPA, CBCDIF, CMP, MG1 ####[facility] [address] [place] [address] Anion gap [Moles/Vol] 11 mmol/L Normal 9-18 [facility] Comment on above: Performed By: #### L IPA, CBCDIF, CMP, MG1 ####[facility] [address] [place] [address] AST [Catalytic activity/Vol] 15 U/L Normal 14-40 [facility] Comment on above: Performed By: #### L IPA, CBCDIF, CMP, MG1 ####[facility] [address] [place] [address] Bilirubin [Mass/Vol] 0.4 mg/dL Normal 0.2-1.3 [facility] Comment on above: Performed By: #### L IPA, CBCDIF, CMP, MG1 ####[facility] [address] [place] [phone] Calcium [Mass/Vol] 8.9 mg/dL Normal 8.5-10.2 [facility] Comment on above: Performed By: #### L IPA, CBCDIF, CMP, MG1 ####[facility] [address] [place] [phone] Chloride [Moles/Vol] 95 mmol/L Low 97-105 [facility] Comment on above: Performed By: #### L IPA, CBCDIF, CMP, MG1 ####[facility] Pd[address]aiwn6954 [address]5[address] CO2 [Moles/Vol] 26 mmol/L Normal 22-30 [facility] Comment on above: Performed By: #### L IPA, CBCDIF, CMP, MG1 ####[facility] N[address]f4116 [address] Creatinine [Mass/Vol] 1.60 mg/dL High 0.73-1.22 [facility] Comment on above: Performed By: #### L IPA, CBCDIF, CMP, MG1 ####[facility] Y[address]wp1857 [address]5160 eGFR- Amer. 50 Normal [facility] Comment on above: Performed By: #### L IPA, CBCDIF, CMP, MG1 ####[facility] [address] eGFR-All Other Races 41 . Normal [facility] Comment on above: Result Comment: eGFR [...] By: #### L IPA, CBCDIF, CMP, MG1 ####[facility] [address] [place] [address] Glucose [Mass/Vol] 144 mg/dL High 74-99 [facility] Comment on above: Result Comment: The [place] [employer] (ADA) provides guidance for cutoff [...] Standards of Medical Care in Diabetes 2016, [place] [employer]. Diabetes Care. 2016.39(Suppl 1). Performed By: #### L IPA, CBCDIF, CMP, MG1 ####[facility] [address] [place] [address] Potassium [Moles/Vol] 3.4 mmol/L Low 3.7-5.1 [facility] Comment on above: Performed By: #### L IPA, CBCDIF, CMP, MG1 ####[facility] [address] [place] [address] Protein [Mass/Vol] 7.1 g/dL Normal 6.3-8.0 [facility] Comment on above: Performed By: #### L IPA, CBCDIF, CMP, MG1 ####[facility] [address] [place] [address] Sodium [Moles/Vol] 132 mmol/L Low 136-144 [facility] Comment on above: Performed By: #### L IPA, CBCDIF, CMP, MG1 ####[facility] [address] [place] [address] Urea nitrogen [Mass/Vol] 28 mg/dL High 9-24 [facility] Comment on above: Performed By: #### L IPA, CBCDIF, CMP, MG1 ####[facility] [address] [place] [address] ED NOTEon 02-24-2021 ED NOTE HNO ID: [id number] Author: Maged Dye RN Service: Nursing Author Type: Registered Nurse Type: ED Notes Filed: 02/24/2021 9:28 PM Note Text: Pt aware that urine and stool sample is needed, urinal and bedside commode in the room. Warm blankets provided, pt denies any needs. [facility] ED NOTE HNO ID: [id number] Author: Richelle Rodriguez RN Service: Nursing Author Type: Registered Nurse Type: ED Notes Filed: 02/24/2021 8:58 PM Note Text: Patient presents to ER with complaints of diarrhea since September. He has a history of colitis. Last colonoscopy was 12 years ago. He feels dehydrated. [facility] ED PROV NOTEon 02-24-2021 ED PROV NOTE HNO ID: [id number] Author: Carolyn Mckeon PA-C Service: ? Author Type: Physician Soccer Ball Assembler Type: ED Provider Notes Filed: 02/25/2021 12:22 [...] half ago when he was staying in [place]. He was given antibiotics. He states that [...] for t (more content not included)... Normal [facility] Lipaseon 02-24-2021 Lipase [Catalytic activity/Vol] 56 U/L Normal 16-61 [facility] Comment on above: Performed By: #### L IPA, CBCDIF, CMP, MG1 ####[facility] [address] [place] [phone] Magnesiumon 02-24-2021 Magnesium [Mass/Vol] 1.9 mg/dL Normal 1.7-2.3 [facility] Comment on above: Performed By: #### L IPA, CBCDIF, CMP, MG1 ####[facility] [address]sp[address]29 [phone] Vital Signs Date Time Vital Sign Value Performing Clinician Facility 05-20-2024 16:01-0400 Diastolic blood pressure 77 mm[Hg] Kezia Dubose MD Work Phone: [facility] Comment on above: BP Rd average 05-20-2024 16:01-0400 Heart rate 73 /min Kezia Dubose MD Work Phone: [facility] 05-20-2024 16:01-0400 Systolic blood pressure 163 mm[Hg] Kezia Dubose MD Work Phone: [facility] Comment on above: BP Rd average 05-20-2024 15:59-0400 Body mass index (BMI) [Ratio] 21.35 kg/m2 Kezia Dubose MD Work Phone: [facility] 05-20-2024 15:59-0400 Body weight 63.69 kg Kezia Dubose MD Work Phone: [facility] 05-20-2024 15:59-0400 SaO2% (BldA) [Mass fraction] 98 % Kezia Dubose MD Work Phone: [facility] 04-24-2024 14:57-0400 Diastolic blood pressure 64 mm[Hg] Kezia Dubose MD Work Phone: [facility] 04-24-2024 14:57-0400 Heart rate 80 /min Kezia Dubose MD Work Phone: [facility] 04-24-2024 14:57-0400 Respiratory rate 16 /min Kezia Dubose MD Work Phone: [facility] 04-24-2024 14:57-0400 Systolic blood pressure 128 mm[Hg] Kezia Dubose MD Work Phone: [facility] 04-18-2024 12:58-0400 Body mass index (BMI) [Ratio] 22.26 kg/m2 Kezia Dubose MD Work Phone: [facility] 04-18-2024 12:58-0400 Body weight 66.41 kg Kezia Dubose MD Work Phone: [facility] 04-18-2024 12:58-0400 Diastolic blood pressure 62 mm[Hg] Kezia Dubose MD Work Phone: [facility] 04-18-2024 12:58-0400 Heart rate 61 /min Kezia Dubose MD Work Phone: [facility] 04-18-2024 12:58-0400 SaO2% (BldA) [Mass fraction] 98 % Kezia Dubose MD Work Phone: [facility] 04-18-2024 12:58-0400 Systolic blood pressure 118 mm[Hg] Kezia Dubose MD Work Phone: [facility] 03-24-2024 18:30-0400 Diastolic blood pressure 61 mm[Hg] India Woodson RN [facility] Comment on above: Home Monitoring 03-24-2024 18:30-0400 Heart rate 61 /min India Woodson RN [facility] aman Comment on above: Home Monitoring 03-24-2024 18:30-0400 Systolic blood pressure 115 mm[Hg] India Woodson RN [facility] Comment on above: Home Monitoring 02-28-2024 11:46-0400 Body mass index (BMI) [Ratio] 22.22 kg/m2 Kirstie Anguiano SEXUAL HEALTH PHYSICIAN.LOCKER ROOM ATTENDANT Work Phone: [facility] 02-28-2024 11:46-0400 Body temperature 97.5 [degF] Kirstie Anguiano SEXUAL HEALTH PHYSICIAN.LOCKER ROOM ATTENDANT Work Phone: [facility] 02-28-2024 11:46-0400 Body weight 66.3 kg Kirstie Anguiano SEXUAL HEALTH PHYSICIAN.LOCKER ROOM ATTENDANT Work Phone: [facility] 02-28-2024 11:46-0400 Diastolic blood pressure 50 mm[Hg] Kirstie Anguiano SEXUAL HEALTH PHYSICIAN.LOCKER ROOM ATTENDANT Work Phone: [facility] 02-28-2024 11:46-0400 Heart rate 63 /min Kirstie Anguiano SEXUAL HEALTH PHYSICIAN.LOCKER ROOM ATTENDANT Work Phone: [facility] 02-28-2024 11:46-0400 Respiratory rate 21 /min Kirstie Anguiano SEXUAL HEALTH PHYSICIAN.LOCKER ROOM ATTENDANT Work Phone: [facility] 02-28-2024 11:46-0400 SaO2% (BldA) [Mass fraction] 98 % Kirstie Anguiano SEXUAL HEALTH PHYSICIAN.LOCKER ROOM ATTENDANT Work Phone: [facility] 02-28-2024 11:46-0400 Systolic blood pressure 130 mm[Hg] Kirstie Anguiano SEXUAL HEALTH PHYSICIAN.LOCKER ROOM ATTENDANT Work Phone: [facility] 02-27-2024 11:13-0400 Body mass index (BMI) [Ratio] 21.44 kg/m2 India Woodson RN [facility] 02-27-2024 11:130400 Body weight 63.96 kg India Woodson RN [facility] aman Comment on above: Home Monitoring 02-27-2024 11:130400 Diastolic blood pressure 52 mm[Hg] India Woodson RN [facility] Comment on above: Home Monitoring 02-27-2024 11:13040 Heart rate 58 /min India Woodson RN [facility] aman Comment on above: Home Monitoring 02-27-2024 11:130400 Systolic blood pressure 117 mm[Hg] India Woodson RN [facility] Comment on above: Home Monitoring 02-06-2024 10:52-0400 Body mass index (BMI) [Ratio] 22.59 kg/m2 Alka Athy PA-C Work Phone: [facility] 02-06-2024 10:52-0400 Body temperature 96.91 [degF] Alka Athy PA-C Work Phone: [facility] 02-06-2024 10:52-0400 Body weight 67.4 kg Alka Athy PA-C Work Phone: [facility] 02-06-2024 10:52-0400 Diastolic blood pressure 60 mm[Hg] Alka Athy PA-C Work Phone: [facility] 02-06-2024 10:52-0400 Heart rate 60 /min Alka Athy PA-C Work Phone: [facility] 02-06-2024 10:52-0400 Respiratory rate 16 /min Alka Athy PA-C Work Phone: [facility] 02-06-2024 10:52-0400 SaO2% (BldA) [Mass fraction] 95 % Alka Athy PA-C Work Phone: [facility] 02-06-2024 10:52-0400 Systolic blood pressure 124 mm[Hg] Alka Athy PA-C Work Phone: [facility] 01-29-2024 13:35-0400 Body height 172.7 cm Kathy Huggins MD Work Phone: [facility] 01-29-2024 13:35-0400 Body mass index (BMI) [Ratio] 21.99 kg/m2 Kathy Huggins MD Work Phone: [facility] 01-29-2024 13:35-0400 Body temperature 97.5 [degF] Kathy Huggins MD Work Phone: [facility] 01-29-2024 13:35-0400 Body weight 65.59 kg Kathy Huggins MD Work Phone: [facility] 01-29-2024 13:35-0400 Diastolic blood pressure 56 mm[Hg] Kathy Huggins MD Work Phone: [facility] 01-29-2024 13:35-0400 Heart rate 61 /min Kathy Huggins MD Work Phone: [facility] 01-29-2024 13:35-0400 SaO2% (BldA) [Mass fraction] 98 % Kathy Huggins MD Work Phone: [facility] 01-29-2024 13:35-0400 Systolic blood pressure 123 mm[Hg] Kathy Huggins MD Work Phone: [facility] 2024 16:17-0400 Body mass index (BMI) [Ratio] 21.9 kg/m2 Kevin Older SEXUAL HEALTH PHYSICIAN.LOCKER ROOM ATTENDANT Work Phone: [facility] 2024 16:17-0400 Body weight 65.32 kg Kevin Older SEXUAL HEALTH PHYSICIAN.LOCKER ROOM ATTENDANT Work Phone: [facility] 2024 16:17-0400 Diastolic blood pressure 66 mm[Hg] Kevin Older SEXUAL HEALTH PHYSICIAN.LOCKER ROOM ATTENDANT Work Phone: [facility] 2024 16:17-0400 Heart rate 56 /min Kevin Older SEXUAL HEALTH PHYSICIAN.LOCKER ROOM ATTENDANT Work Phone: [facility] 2024 16:17-0400 Respiratory rate 16 /min Kevin Older SEXUAL HEALTH PHYSICIAN.LOCKER ROOM ATTENDANT Work Phone: [facility] 2024 16:17-0400 SaO2% (BldA) [Mass fraction] 96 % Kevin Older SEXUAL HEALTH PHYSICIAN.LOCKER ROOM ATTENDANT Work Phone: [facility] 2024 16:17-0400 Systolic blood pressure 132 mm[Hg] Kevin Older SEXUAL HEALTH PHYSICIAN.LOCKER ROOM ATTENDANT Work Phone: [facility] 2024 11:19-0400 Body mass index (BMI) [Ratio] 21.86 kg/m2 Walter Nuñez MD Work Phone: [facility] 2024 11:19-0400 Body weight 65.2 kg Walter Nuñez MD Work Phone: [facility] 2024 11:19-0400 Diastolic blood pressure 57 mm[Hg] Walter Nuñez MD Work Phone: [facility] 2024 11:19-0400 Heart rate 54 /min Walter Nuñez MD Work Phone: [facility] 2024 11:19-0400 Systolic blood pressure 130 mm[Hg] Walter Nuñez MD Work Phone: [facility] 01-23-2024 11:45-0400 Body mass index (BMI) [Ratio] 21.44 kg/m2 India Woodson RN [facility] 01-23-2024 11:45-0400 Body weight 63.96 kg India Woodson RN [facility] aman Comment on above: Home Monitoring 11-15-2023 11:09-0500 Body weight 67.13 kg India Woodson RN [facility] 09-08-2023 18:41-0500 Body weight 68.04 kg India Woodson RN [facility] aman 08-08-2023 09:55-0500 Body weight 68.77 kg Vernell Martinez PA-C Work Phone: [facility] 08-08-2023 09:55-0500 Diastolic blood pressure 64 mm[Hg] Vernell Rodriguezer PA-C Work Phone: [facility] 08-08-2023 09:55-0500 Heart rate 61 /min Vernell Rodriguezer PA-C Work Phone: [facility] 08-08-2023 09:55-0500 Respiratory rate 16 /min Vernell Rodriguezer PA-C Work Phone: [facility] 08-08-2023 09:55-0500 SaO2% (BldA) [Mass fraction] 98 % Vernell Rodriguezer PA-C Work Phone: [facility] 08-08-2023 09:55-0500 Systolic blood pressure 118 mm[Hg] Vernell Rodriguezer PA-C Work Phone: [facility] 06-23-2023 11:43-0400 Body weight 68.55 kg Walter Nuñez MD Work Phone: [facility] 06-23-2023 11:43-0400 Diastolic blood pressure 63 mm[Hg] Walter Nuñez MD Work Phone: [facility] 06-23-2023 11:43-0400 Heart rate 60 /min Walter Nuñez MD Work Phone: [facility] 06-23-2023 11:43-0400 Systolic blood pressure 146 mm[Hg] Walter Nuñez MD Work Phone: [facility] 05-15-2023 13:31-0400 Body height 172.7 cm Kathy Huggins MD Work Phone: [facility] 05-15-2023 13:31-0400 Body temperature 97.81 [degF] Kathy Huggins MD Work Phone: [facility] 05-15-2023 13:31-0400 Body weight 65.77 kg Kathy Huggins MD Work Phone: [facility] 05-15-2023 13:31-0400 Diastolic blood pressure 55 mm[Hg] Kathy Huggins MD Work Phone: [facility] 05-15-2023 13:31-0400 Heart rate 55 /min Kathy Huggins MD Work Phone: [facility] 05-15-2023 13:31-0400 Respiratory rate 20 /min Kathy Huggins MD Work Phone: [facility] 05-15-2023 13:31-0400 SaO2% (BldA) [Mass fraction] 98 % Kathy Huggins MD Work Phone: [facility] 05-15-2023 13:31-0400 Systolic blood pressure 140 mm[Hg] Kathy Huggins MD Work Phone: [facility] 05-03-2023 09:34-0400 Body weight 67.59 kg Vernell Queener PA-C Work Phone: [facility] 05-03-2023 09:34-0400 Diastolic blood pressure 68 mm[Hg] Vernell Queener PA-C Work Phone: [facility] 05-03-2023 09:34-0400 Heart rate 58 /min Vernell Queener PA-C Work Phone: [facility] 05-03-2023 09:34-0400 Respiratory rate 16 /min Vernell Queener PA-C Work Phone: [facility] 05-03-2023 09:34-0400 SaO2% (BldA) [Mass fraction] 99 % Vernell Queener PA-C Work Phone: [facility] 05-03-2023 09:34-0400 Systolic blood pressure 133 mm[Hg] Vernell Queener PA-C Work Phone: [facility] 01-31-2023 13:10-0400 Body height 172.7 cm Kathy Huggins MD Work Phone: [facility] 01-31-2023 13:10-0400 Body temperature 98.01 [degF] Kathy Huggins MD Work Phone: [facility] 01-31-2023 13:10-0400 Body weight 67.13 kg Kathy Huggins MD Work Phone: [facility] 01-31-2023 13:10-0400 Diastolic blood pressure 65 mm[Hg] Kathy Huggins MD Work Phone: [facility] 01-31-2023 13:10-0400 Heart rate 52 /min Kathy Huggins MD Work Phone: [facility] 01-31-2023 13:10-0400 Respiratory rate 20 /min Kathy Huggins MD Work Phone: [facility] 01-31-2023 13:10-0400 SaO2% (BldA) [Mass fraction] 98 % Kathy Huggins MD Work Phone: [facility] 01-31-2023 13:10-0400 Systolic blood pressure 175 mm[Hg] Kathy Huggins MD Work Phone: [facility] 01-30-2023 14:05-0400 Body height 172.7 cm Kezia Dubose MD Work Phone: [facility] 01-30-2023 14:05-0400 Body temperature 97.81 [degF] Kezia Dubose MD Work Phone: [facility] 01-30-2023 14:05-0400 Body weight 67.59 kg Kezia Dubose MD Work Phone: [facility] 01-30-2023 14:05-0400 Diastolic blood pressure 68 mm[Hg] Kezia Dubose MD Work Phone: [facility] 01-30-2023 14:05-0400 Heart rate 56 /min Kezia Dubose MD Work Phone: [facility] 01-30-2023 14:05-0400 Respiratory rate 12 /min Kezia Dubose MD Work Phone: [facility] 01-30-2023 14:05-0400 SaO2% (BldA) [Mass fraction] 96 % Kezia Dubose MD Work Phone: [facility] 01-30-2023 14:05-0400 Systolic blood pressure 140 mm[Hg] Kezia Dubose MD Work Phone: [facility] 08-08-2022 09:16-0500 Body height 172.7 cm Kathy Huggins MD Work Phone: [facility] 08-08-2022 09:16-0500 Body temperature 98.01 [degF] Kathy Huggins MD Work Phone: [facility] 08-08-2022 09:16-0500 Body weight 68.04 kg Kathy Huggins MD Work Phone: [facility] 08-08-2022 09:16-0500 Diastolic blood pressure 68 mm[Hg] Kathy Huggins MD Work Phone: [facility] 08-08-2022 09:16-0500 Heart rate 54 /min Kathy Huggins MD Work Phone: [facility] 08-08-2022 09:16-0500 SaO2% (BldA) [Mass fraction] 99 % Kathy Huggins MD Work Phone: [facility] 08-08-2022 09:16-0500 Systolic blood pressure 167 mm[Hg] Kathy Huggins MD Work Phone: [facility] 06-14-2022 14:14-0400 Body height 172.7 cm Kezia Dubose MD Work Phone: [facility] 06-14-2022 14:14-0400 Body temperature 98.6 [degF] Kezia Dubose MD Work Phone: [facility] 06-14-2022 14:14-0400 Body weight 69.4 kg Kezia Dubose MD Work Phone: [facility] 06-14-2022 14:14-0400 Diastolic blood pressure 56 mm[Hg] Kezia Dubose MD Work Phone: [facility] 06-14-2022 14:14-0400 Heart rate 65 /min Kezia Dubose MD Work Phone: [facility] 06-14-2022 14:14-0400 Respiratory rate 12 /min Kezia Dubose MD Work Phone: [facility] 06-14-2022 14:14-0400 SaO2% (BldA) [Mass fraction] 95 % Kezia Dubose MD Work Phone: [facility] 06-14-2022 14:14-0400 Systolic blood pressure 118 mm[Hg] Kezia Dubose MD Work Phone: [facility] 04-04-2022 14:23-0400 Body height 172.7 cm Kezia Dubose MD Work Phone: [facility] 04-04-2022 14:23-0400 Body temperature 98.01 [degF] Kezia Dubose MD Work Phone: [facility] 04-04-2022 14:23-0400 Body weight 66.68 kg Kezia Dubose MD Work Phone: [facility] 04-04-2022 14:23-0400 Diastolic blood pressure 60 mm[Hg] Kezia Dubose MD Work Phone: [facility] 04-04-2022 14:23-0400 Heart rate 59 /min Kezia Dubose MD Work Phone: [facility] 04-04-2022 14:23-0400 Respiratory rate 12 /min Kezia Dubose MD Work Phone: [facility] 04-04-2022 14:23-0400 SaO2% (BldA) [Mass fraction] 97 % Kezia Dubose MD Work Phone: [facility] 04-04-2022 14:23-0400 Systolic blood pressure 128 mm[Hg] Kezia Dubose MD Work Phone: [facility] 02-14-2022 13:52-0400 Diastolic blood pressure 73 mm[Hg] Osmin Singh MD Work Phone: [facility] 02-14-2022 13:52-0400 Heart rate 56 /min Osmin Singh MD Work Phone: [facility] 02-14-2022 13:52-0400 Systolic blood pressure 170 mm[Hg] Osmin Singh MD Work Phone: [facility] 01-28-2022 10:04-0400 Body weight 65.32 kg Kezia Dubose MD Work Phone: [facility] 01-28-2022 10:04-0400 Diastolic blood pressure 62 mm[Hg] Kezia Dubose MD Work Phone: [facility] 01-28-2022 10:04-0400 Heart rate 60 /min Kezia Dubose MD Work Phone: [facility] 01-28-2022 10:04-0400 Respiratory rate 16 /min Kezia Dubose MD Work Phone: [facility] 01-28-2022 10:04-0400 SaO2% (BldA) [Mass fraction] 98 % Kezia Dubose MD Work Phone: [facility] 01-28-2022 10:04-0400 Systolic blood pressure 124 mm[Hg] Kezia Dubose MD Work Phone: [facility] Encounters Encounter Date Encounter Type Care Provider Facility Start: 07-16-2024 End: 07-16-2024 Telephone encounter Kezia Dubose MD Work Phone: [facility] [place] Comment on above: Release Of Medical R ecords Start: 06-25-2024 End: 06-[facility]20[facility] Start: 06-25-2024 End: 06-25-2024 Patient encounter procedure Anthony Barrett MA [facility] Comment on above: Population Health Na vigation Outreach (Value Hub) Start: 06-21-2024 End: 07-05-2024 Telephone encounter Kezia Dubose MD Work Phone: [facility] [place] Comment on above: Patient Update (Fmla paperwork) Start: 06-18-2024 End: 06-18-2024 ambulatory Kosta Cha RN Work Phone: [employer] Comment on above: Initial enrollment o [facility] Start: 06-06-2024 End: 06-06-2024 Telephone encounter Kathy Huggins MD Work Phone: [facility] [place] Start: 06-01-2024 End: 06-03-2024 Refill Kezia Dubose MD Work Phone: [facility] [place] Comment on above: Refill Request Start: 05-20-2024 End: 05-20-2024 ambulatory [facility] Facility:[facility] Start: 05-20-2024 End: 05-20-2024 Office outpatient visit 25 minutes Kezia Dubose MD Work Phone: [facility] [place] Comment on above: 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); Weakness of both lower extremities; Anemia, unspecified type; Hypomagnesemia Start: 05-20-2024 End: 05-20-2024 ambulatory [facility] Facility:[facility] Start: 05-20-2024 End: 05-20-2024 Telephone encounter Kezia Dubose MD Work Phone: [facility] [place] Comment on above: Patient Update Start: 05-15-2024 End: 05-15-2024 ambulatory India Woodson RN [employer] Comment on above: Community Monitoring Outreach (CDM Telephonic Outreach) Start: 05-10-2024 ambulatory India Woodson RN [facility] Care Management Comment on above: Opened In Error (Ope maykel in Error) Start: 04-28-2024 ambulatory Facility:[facility] Start: 04-25-2024 Telephone encounter Kezia moreira MD Work Phone: Internal Medicine [place] Comment on above: Patient Question Start: 04-24-2024 End: 04-24-2024 ambulatory [facility] Facility:[facility] Start: 04-24-2024 End: 04-24-2024 Office outpatient visit 25 minutes Kezia Dubose MD Work Phone: [facility] [place] Comment on above: Delirium, acute (Valerie betsey Dx); Hyponatremia; Prediabetes; Severe protein-calorie malnutrition (HCC); Acute ischemic stroke (HCC); Testosterone deficiency Start: 04-22-2024 Refill Kezia Dubose M D Work Phone: [facility] [place] Comment on above: Refill Request Start: 04-18-2024 End: 04-18-2024 [facility] Facility:[facility] Start: 04-18-2024 End: 04-18-2024 Office outpatient visit 25 minutes Kezia Dubose MD Work Phone: [facility] [place] Comment on above: Testosterone deficie ncy (Primary Dx); Mixed hyperlipidemia; Cerebrovascular accident (CVA), unspecified mechanism (HCC); Decreased hearing of both ears; Panic attacks Start: 04-09-2024 End: 04-09-2024 Office outpatient visit 15 minutes Kezia Dubose MD Work Phone: [facility] [place] Comment on above: Testosterone deficie ncy (Primary Dx) Start: 04-09-2024 End: 04-09-2024 [facility] Facility:[facility] Start: 03-27-2024 End: 03-27-2024 [facility] Facility:[facility] Start: 03-25-2024 ambulatory India Rubi lattj Care Management Comment on above: Community Monitoring Outreach (CDM Telephonic Outreach) Start: 03-23-2024 Refill Kezia Guthrieta M D Work Phone: [facility] [place] Comment on above: Refill Request Start: 03-01-2024 Telephone encounter Carolyn MCDANIELS Work Phone: [facility] Comment on above: Results Start: 02-28-2024 End: 02-28-2024 ambulatory [facility] Facility:[facility] Start: 02-28-2024 End: 02-28-2024 Patient encounter procedure Kirstie Anguiano APRN.CNP Work Phone: [facility] Comment on above: Dysuria (Primary Dx) Start: 02-27-2024 ambulatory India Rubi lattj Care Management Comment on above: Community Monitoring Outreach (CDM Telephonic Outreach - Second Attempt) Start: 02-23-2024 ambulatory India Rubi lattj Care Management Comment on above: Community Monitoring Outreach (CDM Telephonic Outreach - Second Attempt) Start: 02-06-2024 End: 02-06-2024 [facility] Facility:[facility] Start: 02-06-2024 End: 02-06-2024 Patient encounter procedure Vernell Martinez PA-C Work Phone: Neurology Comment on above: 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); Left-sided weakness; Vision loss of left eye Acute UTI (Primary D x) Start: 01-30-2024 ambulatory Kathy Benavidez Work Phone: Functional Medicine Comment on above: After Visit 01/28 Start: 01-30-2024 E-mail encounter fro m caregiver Kathy Huggins MD Work Phone: Functional Medicine Start: 01-29-2024 End: 01-29-2024 [facility] Facility:[facility] Start: 01-29-2024 End: 01-29-2024 Patient encounter procedure Kathy Huggins MD Work Phone: Functional Medicine Comment on above: Irritable bowel synd lucas with diarrhea (Primary Dx); Candidal enteritis Start: 2024 End: 2024 Patient encounter procedure Kevin Bhagat APRN.CNP Work Phone: [facility] [place] Comment on above: Hypertension, essent ial (Primary Dx); Low testosterone Start: 2024 End: 2024 [facility] Facility:[facility] Start: 2024 End: 2024 [facility] Start: 2024 End: 2024 Patient encounter procedure Walter Nuñez MD Work Phone: Cardiology Comment on above: Nonrheumatic aortic valve insufficiency, moderate to severe, LVEF 55 to 60%, LVEDD 50 mm. (Primary Dx); Hypertension, essential; Mixed hyperlipidemia; Peripheral vascular disease (HCC); Cerebrovascular accident (CVA), unspecified mechanism (HCC) Start: 01-23-2024 ambulatory India josephory Care Management Comment on above: Community Monitoring Outreach (CDM Telephonic Outreach/) Start: 01-23-2024 E-mail encounter jakob norwood caregiver [facility] Provider [facility] [employer] Start: 01-23-2024 Patient encounter procedure [facility] Provider [facility] [employer] Comment on above: Appointment Center T elephone Number Start: 12-26-2023 ambulatory India bueno Care Management Comment on above: Community Monitoring Outreach (CDM Telephonic Outreach) Start: 11-15-2023 ambulatory India bueno Care Management Comment on above: Community Monitoring Outreach (CDM Telephonic Outreach) Start: 11-14-2023 ambulatory Barak Partida RN Work Phone: [facility] [employer] Start: 11-07-2023 End: 11-07-2023 ambulatory [facility] Facility:[facility] Start: 11-07-2023 End: 11-07-2023 Office outpatient visit 25 minutes Lesa Meraz MD Work Phone: Dermatology Comment on above: Pruritus (Primary Dx ); Seborrheic keratosis; Encounter for screening for malignant neoplasm of skin; Lentigines Start: 10-17-2023 End: 10-17-2023 [facility] Facility:[facility] Start: 10-02-2023 End: 10-02-2023 [facility] Facility:[facility] Start: 09-27-2023 End: 09-27-2023 [facility] Facility:[facility] Start: 09-08-2023 End: 09-08-2023 ambulatory India Woodson RN [employer] [facility] [employer] Comment on above: Community Monitoring Outreach (CDM Telephonic Outreach) Start: 08-21-2023 End: 08-21-2023 ambulatory [facility] Facility:[facility] Start: 08-10-2023 Telephone encounter Walter Head MD Work Phone: Cardiology Start: 08-08-2023 End: 08-08-2023 ambulatory [facility] Facility:[facility] Start: 08-08-2023 End: 08-08-2023 Patient encounter procedure Vernell Martinez PA-C Work Phone: Neurology Comment on above: 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); Left-sided weakness; Vision loss of left eye Start: 08-01-2023 ambulatory India Rubi lattj Care Management Comment on above: Community Monitoring Outreach (CD Telephonic Outreach) Start: 07-03-2023 ambulatory India bueno Care Management Comment on above: Community Monitoring Outreach (CD Telephonic Outreach) Start: 06-26-2023 Telephone encounter Kevin Bhagat APRN.LOCKER ROOM ATTENDANT Work Phone: Internal Medicine [place] Comment on above: Patient Question Start: 06-23-2023 [...] above: Patient Question Start: 06-02-2023 ambulatory India bueno Care Management Comment on above: Community Monitoring Outreach (CD Telephonic Outreach) Start: 05-27-2023 Refill Peg Mason PA-C Work Phone: [place] [facility] Comment on above: Refill Request Start: 05-15-2023 End: 05-15-2023 Patient encounter procedure Kathy Huggins MD Work Phone: Functional Medicine Comment on above: Candidal enteritis ( Primary Dx); Intestinal dysbiosis; Hx of completed stroke Start: 05-12-2023 Refill Kezia Benavidez Work Phone: [address] [place] [address] Comment on above: Refill Request Start: 05-06-2023 Telephone encounter Kirstie johnson SEXUAL HEALTH PHYSICIAN.LOCKER ROOM ATTENDANT Work Phone: [facility] Comment on above: Results Start: 05-05-2023 ambulatory India bueno Care Management Comment on above: Community Monitoring Outreach (CDM Telephonic Outreach) Start: 05-05-2023 Telephone encounter Kevin Bhagat APRN.CNP Work Phone: Internal Medicine [place] Comment on above: Home Health Orders Start: 05-04-2023 ambulatory India bueno Care Management Comment on above: Community Monitoring Outreach (CDM Telephonic Outreach) Start: 05-04-2023 Telephone encounter Krystin Ortiz PA-C Work Phone: [place] [facility] Comment on above: Medication Request; Orders Start: 05-03-2023 End: 05-03-2023 Patient encounter procedure Vernell Michelle CARRILLO Work Phone: Neurology Comment on above: 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 med list to [employer] Start: 04-26-2023 Telephone encounter Krystin Ortiz PA-C Work Phone: Internal Medicine [place] Start: 04-25-2023 Telephone encounter Kezia moreira MD Work Phone: [facility] [place] Comment on above: Patient Update Start: 04-20-2023 Telephone encounter Kezia moreira MD Work Phone: Internal Medicine [place] Comment on above: FYI: [facility] PT POC Consult Start: 04-19-2023 Telephone encounter Kezia moreira MD Work Phone: [facility] [place] Comment on above: [facility] Order Request Start: 04-07-2023 ambulatory Pepper Chavez RN Work Phone: [employer] Comment on above: cdm (enrollment) Start: 04-01-2023 Emergency department patient visit KEZIA DUBOSE Facility:[id number] Start: 02-20-2023 ambulatory Kathy Benavidez Work Phone: Functional Medicine Comment on above: Elizabeth Urine test Start: 01-31-2023 ambulatory Kathy Benavidez Work Phone: Functional Medicine Comment on above: After Visit 01/31/23 Start: 01-31-2023 E-mail encounter jakob norwood caregiver Kathy Huggins MD Work Phone: [facility] Start: 01-31-2023 End: 01-31-2023 Patient encounter [...] above: Appointment Start: 10-13-2022 ambulatory Jesenia Aquino [facility] Comment on above: SPP General - No-go (Xifaxan) Start: 10-12-2022 ambulatory Kathy Benavidez Work Phone: Functional Medicine Comment on above: After Visit 10/12/22 Start: 10-12-2022 E-mail encounter jakob norwood caregiver Kathy Huggins MD Work Phone: [facility] Start: 09-01-2022 Refill Kathy Benavidez Work Phone: Functional Medicine Comment on above: Refill Request Start: 08-12-2022 Telephone encounter Kathy rodriguez MD Work Phone: Functional Medicine Comment on above: Insurance Authorizat ion Start: 08-09-2022 End: 08-09-2022 ambulatory [facility] Work Phone: [facility] Start: 08-09-2022 End: 08-09-2022 [facility] Comment on above: New Patient Start: 08-08-2022 ambulatory Kathy Benavidez Work Phone: Functional Medicine Comment on above: After Visit 08/08/22 Start: 08-08-2022 E-mail encounter fro m caregiver Kathy Huggins MD Work Phone: [facility] Start: 08-08-2022 Telephone encounter Kathy rodriguez [...] Refill Kezia Benavidez Work Phone: Internal Medicine [place] Comment on above: Refill Request Start: 07-26-2022 [...] Kezia Dubose MD Work Phone: Internal Medicine [place] Comment on above: Stage 3a chronic kid camila disease (HCC) (Primary Dx); Hypertension, essential; Elevated hemoglobin A1c; Itching Start: 03-03-2022 Telephone encounter Kezia moreira MD Work Phone: Internal Medicine [place] Comment on above: Appointment Start: 02-23-2022 Telephone encounter Kezia moreira MD Work Phone: Family Medicine [place] Comment on above: Results Start: 02-14-2022 End: [...] [I71.4] Start: 02-03-2022 Telephone encounter Kevin Bhagat APRN.LOCKER ROOM ATTENDANT Work Phone: Internal Medicine [place] Comment on above: Results Start: 01-28-2022 End: 01-28-2022 Patient encounter procedure Kezia Dubose MD Work Phone: [facility] [place] Comment on above: Medicare annual well ness visit, subsequent (Primary Dx); Elevated hemoglobin A1c; Hypertension, essential; Lower urinary tract symptoms (LUTS); Peripheral vascular disease (HCC); Abdominal aortic aneurysm without rupture (HCC); Hypokalemia; Hyponatremia; Stage 3a chronic kidney disease (HCC); Celiac disease; Vitamin D deficiency Start: 02-10-2021 Patient encounter procedure Kezia Dubose MD Work Phone: [facility] Work Phone: Procedures Date Procedure Procedure Detail Performing Clinician Start: 02-28-2024 Urnls dip stick/tabl et rgnt auto w/o microscopy Cal Rothman APRN.LOCKER ROOM ATTENDANT Work Phone: Start: 02-06-2024 Urnls dip stick/tabl et rgnt auto w/o microscopy Alka Melara PA-C Work Phone: Start: 02-14-2022 Radiologic exam abdo men 3+ views Osmin Singh MD Work Phone: Start: 05-12-2021 Ecg routine ecg w/le ast 12 lds i&r only Plan of Treatment Date Care Activity Detail Author Start: 05-20-2027 [facility] Start: 03-27-2027 [facility] Start: 09-08-2026 Diabetes Screening Diabetes Screenny g [facility] Start: 05-05-2026 DIABETES SCREEN DIABETES SCREEN [facility] Start: 05-05-2026 Diabetes Screening Diabetes Screenny g [facility] Start: 04-24-2026 DIABETES SCREEN DIABETES SCREEN [facility] Start: 04-05-2026 DIABETES SCREEN DIABETES SCREEN [facility] Start: 04-04-2026 Urine microalbumin profile [facility] Start: 08-08-2025 DIABETES SCREEN DIABETES SCREEN [facility] Start: 02-17-2025 DIABETES SCREEN DIABETES SCREEN [facility] Start: 01-28-2025 DIABETES SCREEN DIABETES SCREEN [facility] Start: 10-02-2024 RSV Vaccine (1 - 1-d ose 60+ series) RSV Vaccine (1 - 1-dose 60+ series) [facility] Comment on above: Postponed from 01/24 (Declined at this time) Start: 10-02-2024 RSV Vaccine (1 - 1-d ose 75+ series) RSV Vaccine (1 - 1-dose 75+ series) [facility] [facility] Comment on above: Postponed from 01/24 (Declined at this time) Start: 08-13-2024 End: 08-13-2024 Patient encounter procedure 08/13/2024 11:30 AM EST Office Visit Neurology [address] [place] [address] Vernell Martinez PA-C [address] [place] [address] Six month follow up stroke Neurology Comment on above: Six month follow up stroke Start: 08-09-2024 End: 08-09-2024 Patient encounter procedure 08/09/2024 2:00 PM EST Office Visit Functional Medicine [address] [place] [address] Kathy Huggins MD [address] [facility] [address] [place] [address] followup Functional Medicine Comment on above: followup Start: 08-06-2024 End: 08-06-2024 Patient encounter procedure 08/06/2024 8:30 AM EST Office Visit Cardiology [address] [facility] [place] [address] Walter Nuñez MD [address] [facility] [place] [address] 6 month f/u. r/s from 07/30/24. sent letter and mychart. Cardiology Comment on above: 6 month f/u. r/s fro 07/30/24. sent letter and mychart. Start: 07-30-2024 End: 07-30-2024 Patient encounter procedure 07/30/2024 11:30 AM EST Office Visit Cardiology [address] [facility] [place] [address] Walter Nuñez MD [address] [place] [address] 6 month f/u Cardiology Comment on above: 6 month f/u Start: 07-26-2024 End: 01-23-2025 Echocardiography ECHO Cardiology Routine Nonrheumatic aortic valve insufficiency, moderate to severe, LVEF 55 to 60%, LVEDD 50 mm. Expected: 07/26/2024 (Approximate), Expires: 01/23/2025 [facility] Work Phone: Comment on above: Expected: 07/26/2024 (Approximate), Expires: 01/23/2025 Start: 07-22-2024 End: 07-22-2024 Patient encounter procedure Cardiology Comment on above: Echo 3 Month follow up Start: 07-18-2024 End: 07-18-2024 Patient encounter procedure Internal Medicine [place] Comment on above: 2 month follow up Annual Wellnes Visit due - Follow up Start: 06-26-2024 Shingrix Vaccine (1 of 2) Perry grix Vaccine (1 of 2) [facility] Comment on above: Postponed from 01/24 (Declined at this time) Start: 06-05-2024 End: 06-05-2024 Patient encounter procedure 06/05/2024 3:30 PM EDT Office Visit Functional Medicine [address] [place] [address] Kathy Huggins MD [address] [facility] [address] [place] [address] followup Functional Medicine Comment on above: followup Start: 05-26-2024 Influenza vaccination Influenza Vacc ine (#1) [facility] Start: 05-20-2024 End: 05-20-2024 Patient encounter procedure 05/20/2024 3:40 PM EDT Office Visit Internal Medicine [place] [address] [place] [address] Kezia Dubose MD [address] [place] [address] [facility] Dc'd 05/14/2024 Internal Medicine [place] Comment on above: [facility] Dc'd 05/14/2024 Start: 05-20-2024 End: 08-19-2024 CBC W Auto Differential panel - Blood [facility] Work Phone: Comment on above: Expected: 05/20/2024 , Expires: 08/19/2024 Start: 05-13-2024 End: 05-13-2024 Patient encounter procedure 05/13/2024 2:00 PM EDT Office Visit Functional Medicine [address] [place] [address] Kathy Huggins MD [address] [facility] [address] [place] [address] follow up Functional Medicine Comment on above: follow up Start: 05-02-2024 End: 05-02-2024 Patient encounter procedure 05/02/2024 2:00 PM EDT Office Visit Internal Medicine [place] [address] [place] [address] Kezia Dubose MD [address] [facility] [place] [address] 1 wk follow up; delirium Internal Medicine [place] Comment on above: 1 wk follow up; pratima adame Start: 04-24-2024 End: 07-24-2024 Basic metabolic 2000 panel - Serum or Plasma BASIC METABOLIC PANEL Lab Routine Hyponatremia Expected: 04/24/2024, Expires: 07/24/2024 [facility] Work Phone: Comment on above: Expected: 04/24/2024 , Expires: 07/24/2024 Start: 04-24-2024 End: 07-24-2024 Magnesium [Mass/volume] in Serum or Plasma MAGNESIUM Lab Routine Hyponatremia Expected: 04/24/2024, Expires: 07/24/2024 [facility] Comment on above: Expected: 04/24/2024 , Expires: 07/24/2024 Start: 04-24-2024 End: 07-24-2024 TESTOSTERONE BIOAVAILABLE TESTOSTERONE BIOAVAILABLE Lab Routine Testosterone deficiency Expected: 04/24/2024, Expires: 07/24/2024 [facility] Comment on above: Expected: 04/24/2024 , Expires: 07/24/2024 Start: 04-24-2024 End: 07-24-2024 Thyrotropin [Units/volume] in Serum or Plasma THYROID STIMULATING HORMONE Lab Routine Prediabetes Expected: 04/24/2024, Expires: 07/24/2024 [facility] Comment on above: Expected: 04/24/2024 , Expires: 07/24/2024 Start: 04-18-2024 End: 04-18-2024 Patient encounter procedure 04/18/2024 1:00 PM EDT Office Visit Internal Medicine [place] [address] [place] [address] Kezia Dubose MD [address] [facility] [place], [place] [id number] 6 month follow up Internal Medicine [place] Comment on above: 6 month follow up Start: 04-12-2024 End: 07-12-2024 TESTOSTERONE, FREE AND TOTAL TESTOSTERONE, FREE AND TOTAL Lab Routine Testosterone deficiency Expected: 04/12/2024, Expires: 07/12/2024 [facility] Work Phone: Comment on above: Expected: 04/12/2024 , Expires: 07/12/2024 Start: 04-09-2024 End: 04-09-2024 Patient encounter procedure 04/09/2024 12:00 PM EDT Office Visit Internal Medicine [place] [address] [place] [address] Kezia Dubose MD [address] [facility] [place] [address] 6 month follow up Internal Medicine [place] Comment on above: 6 month follow up Start: 04-01-2024 End: 04-01-2024 Patient encounter procedure 04/01/2024 11:00 AM EDT Office Visit Internal Medicine [place] [address] [place] [address] Kevin Bhagat APRN.LOCKER ROOM ATTENDANT [address] [place] [address] 6 month follow up Internal Medicine [place] Comment on above: 6 month follow up Start: 03-07-2024 End: 03-07-2024 Patient encounter procedure 03/07/2024 9:40 AM EDT Office Visit Family Medicine [place] [address] [place] [address] Aleena Peña, SEXUAL HEALTH PHYSICIAN.LOCKER ROOM ATTENDANT [address] [place] [address] f/u uti Family Medicine [place] Comment on above: f/u uti Start: 02-06-2024 End: 02-06-2024 Patient encounter procedure 02/06/2024 10:00 AM EDT Office Visit Neurology [address] [facility] [place] [address] Vernell Martinez PA-C [address] [place] [address] 6 month follow up stroke Neurology Comment on above: [address] [facility] Start: 01-29-2024 End: 04-29-2024 CHARISSA ALBICANS ABS, IGA,IGG,IGM CHARISSA ALBICANS ABS, IGA,IGG,IGM Lab Routine Candidal enteritis Irritable bowel syndrome with diarrhea Expected: 01/29/2024, Expires: 04/29/2024 [facility] Work Phone: Comment on above: Expected: 01/29/2024 , Expires: 04/29/2024 Start: 01-29-2024 End: 04-29-2024 Histamine [Moles/volume] in Blood HISTAMINE BLD Lab Routine Candidal enteritis Irritable bowel syndrome with diarrhea Expected: 01/29/2024, Expires: 04/29/2024 [facility] Comment on above: Expected: 01/29/2024 , Expires: 04/29/2024 Start: 01-29-2024 End: 04-29-2024 IgG [Mass/volume] in Serum or Plasma IMMUNOGLOBULIN G Lab Routine Candidal enteritis Expected: 01/29/2024, Expires: 04/29/2024 [facility] Comment on above: Expected: 01/29/2024 , Expires: 04/29/2024 Start: 01-29-2024 End: 04-29-2024 TRYPTASE BLOOD TRYPTASE BLOOD Lab Routine Candidal enteritis Irritable bowel syndrome with diarrhea Expected: 01/29/2024, Expires: 04/29/2024 [facility] Comment on above: Expected: 01/29/2024 , Expires: 04/29/2024 Start: 01-29-2024 End: 01-29-2024 Patient encounter procedure 01/29/2024 1:30 PM EDT Office Visit Functional Medicine [address] [place] [address] [id number] Kathy Huggins MD [address] [address] 4 MONTH FOLLOW UP Functional Medicine Comment on above: 4 MONTH FOLLOW UP Start: 2024 End: 2024 Patient encounter procedure 2024 4:20 PM EDT Office Visit Internal Medicine [place] [address] [place] [address] Kevin Bhagat APRN.LOCKER ROOM ATTENDANT [address] [place] [address] blood pressure check & medication review [facility] [place] Comment on above: blood pressure check & medication review Start: 2024 End: 2024 Patient encounter procedure 2024 11:30 AM EDT Office Visit Cardiology [address] [place] [address] Walter Nuñez MD [address] [place] [address] follow up Cardiology Comment on above: follow up Start: 11-07-2023 End: 02-06-2024 Thyrotropin [Units/volume] in Serum or Plasma TSH BLD Lab Routine Pruritus Expected: 11/07/2023, Expires: 02/06/2024 [facility] Work Phone: Comment on above: Expected: 11/07/2023 , Expires: 02/06/2024 Start: 11-07-2023 End: 02-06-2024 Thyroxine (T4) free [Mass/volume] in Serum or Plasma T4 FREE/FREE THYROX Lab Routine Pruritus Expected: 11/07/2023, Expires: 02/06/2024 [facility] Work Phone: Comment on above: Expected: 11/07/2023 , Expires: 02/06/2024 Start: 09-25-2023 Behavioral Health Screening Behavioral Health Screening [facility] Start: 05-26-2023 Influenza vaccination [facility] Start: 01-31-2023 End: 04-02-2023 MISC SEND OUT TST 1 MISC SEND OUT TST 1 Lab Routine Intestinal dysbiosis Impaired nutrient utilization Expected: 01/31/2023, Expires: 04/02/2023 [facility] Work Phone: Comment on above: Expected: 01/31/2023 , Expires: 04/02/2023 Start: 01-28-2023 SHINGRIX VACCINE (1 of 2) PERRY GRIX VACCINE (1 of 2) [facility] Comment on above: Postponed from 01/24 (Declined at this time) Start: 12-07-2022 End: 02-06-2023 CREATININE BLD CREATININE BLD Lab Routine Abdominal aortic aneurysm (AAA) without rupture, unspecified part (HCC) Expected: 12/07/2022, Expires: 02/06/2023 [facility] Work Phone: Comment on above: Expected: 12/07/2022 , Expires: 02/06/2023 Start: 09-25-2022 ADVANCE DIRECTIVE DISCUSSION ADVANCE DIRECTIVE DISCUSSION [facility] Start: 09-25-2022 DEPRESSION ASSESSMENT DEPRESSION ASS ESSMENT [facility] Start: 08-08-2022 End: 10-08-2022 25-hydroxyvitamin D3 [Mass/volume] in Serum or Plasma [facility] Work Phone: Comment on above: Expected: 08/08/2022 , Expires: 10/08/2022 Start: 08-08-2022 End: 10-08-2022 ALLERGY FOOD PANEL IGG [facility] Work Phone: Comment on above: Expected: 08/08/2022 , Expires: 10/08/2022 Start: 08-08-2022 End: 10-08-2022 Arsenic [Mass/volume] in Blood [facility] Work Phone: Comment on above: Expected: 08/08/2022 , Expires: 10/08/2022 Start: 08-08-2022 End: 10-08-2022 C reactive protein [Mass/volume] in Serum or Plasma by High sensitivity method [facility] Work Phone: Comment on above: Expected: 08/08/2022 , Expires: 10/08/2022 Start: 08-08-2022 End: 10-08-2022 Comprehensive metabolic 2000 panel - Serum or Plasma [facility] Work Phone: Comment on above: Expected: 08/08/2022 , Expires: 10/08/2022 Start: 08-08-2022 End: 10-08-2022 COPPER BLOOD [facility] Work Phone: Comment on above: Expected: 08/08/2022 , Expires: 10/08/2022 Start: 08-08-2022 End: 10-08-2022 Ferritin [Mass/volume] in Serum or Plasma [facility] Work Phone: Comment on above: Expected: 08/08/2022 , Expires: 10/08/2022 Start: 08-08-2022 End: 10-08-2022 Gamma glutamyl transferase [Enzymatic activity/volume] in Serum or Plasma [facility] Work Phone: Comment on above: Expected: 08/08/2022 , Expires: 10/08/2022 Start: 08-08-2022 End: 10-08-2022 Homocysteine [Moles/volume] in Serum or Plasma [facility] Work Phone: Comment on above: Expected: 08/08/2022 , Expires: 10/08/2022 Start: 08-08-2022 End: 10-08-2022 Iron and Iron binding capacity panel - Serum or Plasma [facility] Work Phone: Comment on above: Expected: 08/08/2022 , Expires: 10/08/2022 Start: 08-08-2022 End: 10-08-2022 Lead [Mass/volume] in Blood [facility] Work Phone: Comment on above: Expected: 08/08/2022 , Expires: 10/08/2022 Start: 08-08-2022 End: 10-08-2022 MAGNESIUM RBC [facility] Work Phone: Comment on above: Expected: 08/08/2022 , Expires: 10/08/2022 Start: 08-08-2022 End: 10-08-2022 Mercury [Mass/volume] in Blood [facility] Work Phone: Comment on above: Expected: 08/08/2022 , Expires: 10/08/2022 Start: 08-08-2022 End: 10-08-2022 Methylmalonate [Moles/volume] in Serum or Plasma [facility] Work Phone: Comment on above: Expected: 08/08/2022 , Expires: 10/08/2022 Start: 08-08-2022 End: 10-08-2022 [facility] [place] Work Phone: Comment on above: Expected: 08/08/2022 , Expires: 10/08/2022 Start: 08-08-2022 End: 10-08-2022 Thyrotropin [Units/volume] in Serum or Plasma [facility] Work Phone: Comment on above: Expected: 08/08/2022 , Expires: 10/08/2022 Start: 08-08-2022 End: 10-08-2022 Thyroxine (T4) free [Mass/volume] in Serum or Plasma [facility] Work Phone: Comment on above: Expected: 08/08/2022 , Expires: 10/08/2022 Start: 08-08-2022 End: 10-08-2022 Tissue transglutaminase IgA Ab [Units/volume] in Serum [facility] Work Phone: Comment on above: Expected: 08/08/2022 , Expires: 10/08/2022 Start: 08-08-2022 End: 10-08-2022 Tissue transglutaminase IgG Ab [Units/volume] in Serum [facility] Work Phone: Comment on above: Expected: 08/08/2022 , Expires: 10/08/2022 Start: 08-08-2022 End: 10-08-2022 Transferrin [Mass/volume] in Serum or Plasma [facility] Work Phone: Comment on above: Expected: 08/08/2022 , Expires: 10/08/2022 Start: 08-08-2022 End: 10-08-2022 Triiodothyronine (T3) Free [Mass/volume] in Serum or Plasma [facility] Work Phone: Comment on above: Expected: 08/08/2022 , Expires: 10/08/2022 Start: 08-08-2022 End: 10-08-2022 Urate [Mass/volume] in Serum or Plasma [facility] Work Phone: Comment on above: Expected: 08/08/2022 , Expires: 10/08/2022 Start: 08-08-2022 End: 10-08-2022 Zinc [Mass/volume] in Serum or Plasma [facility] Work Phone: Comment on above: Expected: 08/08/2022 , Expires: 10/08/2022 Start: 05-26-2022 Influenza vaccination INFLUENZA (#1) [facility] Start: 02-03-2022 End: 04-05-2022 Basic metabolic 2000 panel - Serum or Plasma BASIC METABOLIC PNL Lab Routine Function kidney decreased Expected: 02/03/2022, Expires: 04/05/2022 [facility] Work Phone: Comment on above: Expected: 02/03/2022 , Expires: 04/05/2022 Start: 01-28-2022 End: 01-28-2023 VITAMIN D 25 HYDROXY [facility] Work Phone: Comment on above: Expected: 01/28/2022 , Expires: 01/28/2023 Start: 09-25-2021 ADVANCE DIRECTIVE DISCUSSION ADVANCE DIRECTIVE DISCUSSION [facility] Start: 09-25-2021 DEPRESSION ASSESSMENT DEPRESSION ASS ESSMENT [facility] Start: 05-19-2021 COVID-19 VACCINE (3 - Booster for Moderna series) COVID-19 VACCINE (3 - Booster for Moderna series) [facility] Start: 02-11-2021 COVID-19 VACCINE (3 - Booster for Moderna series) COVID-19 VACCINE (3 - Booster for Moderna series) [facility] Start: 02-11-2021 COVID-19 VACCINE (3 - Moderna series) COVID-19 VACCINE (3 - Moderna series) [facility] Start: 1997 RSV Vaccine (1 - 1-d ose 60+ series) RSV Vaccine (1 - 1-dose 60+ series) [facility] Start: 1987 SHINGRIX VACCINE (1 of 2) PERRY GRIX VACCINE (1 of 2) [facility] Start: 1955 Anxiety Screening Anxiety Screening [facility] Start: 1955 Depression Screening Depression Scre ening [facility] Bacteria identified in Urine by Culture URINE CULTURE Microbiology Routine Acute UTI 02/06/2024 11:06 AM EDT [facility] Work Phone: Bacteria identified in Urine by Culture URINE CULTURE Microbiology Routine Dysuria 02/28/2024 12:00 PM EDT [facility] Work Phone: End: 01-06-2024 Ct angio abd&plvis cntrst mtrl w/wo cntrst img CTA ABD/PEL WO/W IVCON Radiology Routine Abdominal aortic aneurysm (AAA) without rupture, unspecified part (HCC) 1 Occurrences starting 12/07/2022 until 01/06/2024 [facility] Work Phone: Comment on above: 1 Occurrences starti ng 12/07/2022 until 01/06/2024 FM GI EFFECTS, 1 STO OL SPECIMEN FM GI EFFECTS, 1 STOOL SPECIMEN Lab Routine Irritable bowel syndrome with diarrhea Ordered: 08/08/2022 [facility] Work Phone: Comment on above: Ordered: 08/08/2022 FM GI EFFECTS, 3 STO OL SPECIMENS FM GI EFFECTS, 3 STOOL SPECIMENS Lab Routine Candidal enteritis Ordered: 01/29/2024 [facility] Comment on above: Ordered: 01/29/2024 End: 04-19-2025 HEARING TEST/AUDIOGRAM HEARING TEST/AUDIOGRAM Audiology Routine Decreased hearing of both ears 1 Occurrences starting 04/18/2024 until 04/19/2025 [facility] Work Phone: Comment on above: 1 Occurrences starti ng 04/18/2024 until 04/19/2025 End: 12-08-2023 PVR ANK/COFFEY/TOE DICK VAS LAB PVR ANK/COFFEY/TOE DICK VAS LAB Vascular Lab Routine Abdominal aortic aneurysm (AAA) without rupture, unspecified part (HCC) 1 Occurrences starting 12/07/2022 until 12/08/2023 [facility] Work Phone: Comment on above: 1 Occurrences starti ng 12/07/2022 until 12/08/2023 [facility] Immunizations Immunization Date Immunization Notes Care Provider Nicky alexandra 06-26-2023 influenza (HD-IIV4) vaccine, age 65+ yr, high dose, quadrivalent, PF (FLUZONE HIGH-DOSE) India Woodson RN [facility] 06-26-2023 influenza virus vacc ine, unspecified formulation Kezia Dubose MD Work Phone: [facility] 06-09-2021 influenza, high-dose , quadrivalent vaccine (FLUZONE HIGH DOSE QUADRIVALENT) Kezia Dubose MD Work Phone: [facility] 06-09-2021 influenza virus vacc ine, unspecified formulation Walter Nuñez MD Work Phone: [facility] 12-17-2020 COVID-19 vaccine, fu ll dose (MODERNA) Kezia Dubose MD Work Phone: [facility] Work Phone: 11-19-2020 COVID-19 vaccine, fu ll dose (MODERNA) Kezia Dubose MD Work Phone: [facility] Work Phone: 07-21-2020 influenza, high-dose , quadrivalent vaccine (FLUZONE HIGH DOSE QUADRIVALENT) Kezia Dubose MD Work Phone: [facility] 06-14-2019 influenza, high dose seasonal, preservative-free Kezia Dubose MD Work Phone: [facility] 06-11-2018 influenza, high dose seasonal, preservative-free Kezia Dubose MD Work Phone: [facility] 02-08-2017 pneumococcal polysaccharide vaccine, 23 valent Kezia Dubose MD Work Phone: [facility] 08-17-2016 influenza, high dose seasonal, preservative-free Kezia Dubose MD Work Phone: [facility] 04-04-2016 tetanus and diphther ia toxoids, adsorbed, preservative free, for adult use (5 Lf of tetanus toxoid and 2 Lf of diphtheria toxoid) Kezia Dubose MD Work Phone: [facility] 06-16-2015 influenza, high dose seasonal, preservative-free Kezia Dubose MD Work Phone: [facility] 08-26-2014 influenza, seasonal, injectable Kezia Dubose MD Work Phone: [facility] 08-26-2014 pneumococcal conjuga te vaccine, 13 valent Kezia Dubose MD Work Phone: [facility] 09-02-2013 influenza virus vacc ine, unspecified formulation Kezia Dubose MD Work Phone: [facility] 06-25-2012 influenza virus vacc ine, unspecified formulation Kezia Dubose MD Work Phone: [facility] 07-01-2010 influenza virus vacc ine, unspecified formulation Kezia Dubose MD Work Phone: [facility] 10-09-2006 tetanus and diphther ia toxoids, adsorbed, preservative free, for adult use (2 Lf of tetanus toxoid and 2 Lf of diphtheria toxoid) Kezia Dubose MD Work Phone: [facility] Work Phone: 03-21-2005 pneumococcal polysaccharide vaccine, 23 valent Kezia Dubose MD Work Phone: [facility] Work Phone: 12-21-1996 diphtheria and tetan us toxoids, adsorbed for pediatric use Kezia Dubose MD Work Phone: [facility] Work Phone: Payers Date Payer Category Payer Medicare [employer] MEDICARE A ETNA MEDICARE PPO [id number] 2020-Present [phone] [address] [place] [address] PPO [id number] 2020 Medicare [employer] MEDICARE A ETNA MEDICARE PPO [id number] 2020-Present [phone] [address] [place] [address] PPO [id number] 2020 Medicare [id number] 1935 Unknown [id number] Social History Date Type Detail Facility Start: 01-29-2018 End: 08-08-2022 Tobacco smoking status NHIS Never smoked tobacco [facility] Start: 06-09-2021 End: 05-20-2024 Alcohol intake Current non-drinker of alcohol (finding) [facility] Start: 01-28-2022 End: 01-29-2023 History SDOH Alcohol Frequency 1 [facility] Start: 01-28-2022 End: 01-29-2023 History SDOH Social Connections Phone 3 [facility] Start: 01-28-2022 History SDOH Physica l Activity DPW 6 [facility] Start: 01-28-2022 End: 01-29-2023 History SDOH Physical Activity MPS 4 [facility] Start: 01-28-2022 End: 01-29-2023 History SDOH Financial 5 [facility] Start: 01-28-2022 End: 01-29-2023 History SDOH Transport Med 2 [place] [facility] Start: 1935 Sex Assigned At Male [facility] Start: 01-18-2022 End: 01-28-2022 Exposure to SARS-CoV-2 (event) Unable to assess [facility] Start: 02-04-2022 End: 07-26-2022 Exposure to SARS-CoV-2 (event) Not sure [facility] Start: 01-29-2018 End: 08-08-2022 Tobacco use and exposure Smokeless tobacco non-user [facility] Start: 01-29-2023 History SDOH Alcohol Std Drinks 0 [facility] Start: 01-29-2023 End: 2024 History of Social function [place] [facility] Start: 01-29-2023 End: 2024 Social connection and isolation panel [facility] Do you belong to any clubs or organizations such as rastafari groups, unions, fraternal or athletic groups, or school groups? Yes [facility] Are you now , , , , never or living with a partner? [facility] How often to you hav e a drink containing alcohol? Never [facility] How many standard dr inks containing alcohol do you have on a typical day? Patient does not drink [facility] Do you feel stress - tense, restless, nervous, or anxious, or unable to sleep at night because your mind is troubled all the time - these days [OSQ] Not at all [facility] (I/We) worried wheth er (my/our) food would run out before (I/we) got money to buy more. Never true [facility] In the past 12 month s, was there a time when you were not able to pay the mortgage or rent on time? No [facility] Start: 03-24-2019 Gender identity Identifies as male gender (finding) [facility] Start: 03-24-2019 Sexual orientation Heterosexual (yanira henriquez) [facility] Medical Equipment Procedure Code Equipment Code Equipment Origin al Text Equipment Identifier Dates Graft Excluder 1 8mm 14.5-16.5mm [place] Nitinol Fep 11.5cm Endovascular - [id number] Start: 12-12-2019 Graft Excluder 2 0mm 16.5-18.5mm [place] Nitinol Fep 11.5cm Endovascular - [id number] Start: 12-12-2019 Graft Excluder C 3 26mm 14.5mm [place] Nitinol Fep 14cm Endovascular Stent - [id number] Start: 12-12-2019 Graft [place] Exclu ronal 14.5mm 10cm Endovascular Contralateral Leg - [id number] Start: 12-12-2019 Goals Date Patient Goal [...] 08/08/2023 11/15/2023: Patient driving again. Drove to [place] with his & will be back in [place] by the end of December 2023. Personal [...] normal blood pressure. Clinical Notes 09-08-2013 to 07-16-2024 Telephone Encounter - Osiris Tapia LPN - 07/16/2024 12:07 PM EDTTelephone Encounter - Osiris Tapia LPN - 07/16/2024 12:07 PM EDSchuyler Campbellelle ROLAND Hardin - 06/25/2024 1:58 PM EDT Note Date & Type Note Facility 07-16-2024 Telephone encounter Note Isabela with [facility] call for pt's immunization records. Pt is going to be with them for a little while. Identified pt with name and date of . Faxed to [phone]. Done. Osiris Tapia LPN [facility] 07-16-2024 Miscellaneous Notes Isabela with [facility] call for pt's immunization records. Pt is going to be with them for a little while. Identified pt with name and date of . Faxed to [phone]. Done. Osiris Tapia LPN documented in this encounter [facility] 07-04-2024 Telephone encounter Note Completed and faxed may days ago [facility] 07-04-2024 Miscellaneous Notes Completed and faxed may days ago Checking to see if this has been completed. Osiris Tapia LPN Forms received, partially completed and given to Dr. Dubose for review, completion, and signature. Once signed, please fax to [phone], [facility]. Send copy to medical records for scanning. Peg De Jesus MA Spoke to [place] the patients son, dropping off paperwork for intermittent FMLA for both parents. Additional note in Betsey Headings chart. Betsey Collado LPN June 21, 2024 11:47 AM documented in this encounter [facility] 07-03-2024 Telephone encounter Note Checking to see if this has been completed. Osiris Tapia LPN [facility] 06-25-2024 Note HNO ID: [id number] Author: ANTHONY BARRETT MA Service: ? Author Type: Solar Installation Manager Type: Progress Notes Filed: 06/25/2024 14:05 Note [...] orders: Medicare Annual Wellness Visit 07/18/2024 in [facility] with KEZIA DUBOSE - [facility] - Follow up, Please address due care gaps and HCC gaps 07/22/2024 in [facility] with ECHOCARDIOGRAM [facility] - Echo 08/06/2024 in [facility] with WALTER NUÑEZ - 6 month f/u. r/s from 07/30/24. sent letter and mychart. 08/13/2024 in [facility] with VERNELL MARTINEZ - Six month follow up stroke Navigation Signature: Anthony Barrett MA June 25, 2024 1:58 PM [facility] 06-25-2024 History of Presen t illness Narrative POPULATION HEALTH NAVIGATION OUTREACH Action/FYI Patient is [...] orders: Medicare Annual Wellness Visit 07/18/2024 in [facility] with KEZIA DUBOSE - Annual [facility] Visit due - Follow up, Please address due care gaps and HCC gaps 07/22/2024 in [facility] with ECHOCARDIOGRAM WSTR - Echo 08/06/2024 in [facility] with WALTER NUÑEZ - 6 month f/u. r/s from 07/30/24. sent letter and mychart. 08/13/2024 in [facility] with VERNELL MARTINEZ - Six month follow up stroke Navigation Signature: Anthony Barrett MA June 25, 2024 1:58 PM documented in this encounter [facility] 06-25-2024 Note Patient Outreach ([facility]CH TNAV) HEADINGS,SERGO Suárez ([id number]) 1935 M Date Time Provider Department 06/25/24 MONSKE, ANTHONY A NETNAV During your visit today, we recorded the following information about you: Anthony Barrett MA 06/25/2024 2:05 PM Signed POPULATION HEALTH NAVIGATION OUTREACH Action/FYI Patient is [...] identified by name and : Yes Value [facility] actions taken: Patient scheduled/pended orders: Medicare Annual Well[facility] KEZ[facility] - Annual [facility] Visit due - Follow up, Please address due care gaps and HCC gaps 07/22/2024 in [facility] with ECHOCARDIOGRAM WSTR - Echo 08/06/2024 in [facility] with WALTER NUÑEZ - 6 month f/u. r/s from 07/30/24. sent letter and mychart. 08/13/2024 in [facility] with VERNELL MARTINEZ - Six month [...] Encounter Status:Closed by ANTHONY BARRETT on 06/25/24 [facility] 06-24-2024 Telephone encounter Note Forms received, partially completed and given to Dr. Dubose for review, completion, and signature. Once signed, please fax to [phone], [facility]. Send copy to medical records for scanning. Peg De Jesus MA T [facility] 06-21-2024 Telephone encounter Note Spoke to [place] the patients son, dropping off paperwork for intermittent FMLA for both parents. Additional note in [facility] chart. Betsey Collado LPN June 21, 2024 11:47 AM T [facility] 06-18-2024 Note HNO ID: [id number] Author: KOSTA CHA RN Service: ? Author [...] Cha RN July 02, 2024 9:13 AM [facility] 06-18-2024 History of Presen t illness Narrative documented in this encounter [facility] 06-18-2024 Note Patient Outreach (AM [facility]) HEADINGS,SERGO Suárez ([id number]) 1935 M Date Time Provider Department 06/18/24 KOSTA CHA [facility] During your visit today, we [...] Encounter Status:Closed by KOSTA CHA on 06/18/24 [facility] 06-06-2024 Telephone encounter Note Summary: [employer] APPT See spouse Betsey Headings, back to back appointments canceled by remanufacturing technician Kesha when I called today. Carrol [facility] 06-06-2024 Miscellaneous Notes Summary: MODLO APPT See spouse Betsey Headings, back to back appointments canceled by remanufacturing technician Kesha when I called today. Carrol documented in this encounter [facility] 06-03-2024 Telephone encounter Note Daughter, Kesha, phoned in checking on the refill requests, and given provider's message below. Kesha states she will discuss with patient, but doesn't think he will come in. Reports patient is currently receiving [facility]osp[facility] Care and she will discuss with Hospice also. [facility] 06-03-2024 Miscellaneous Notes Daughter, Kesha, phoned in checking on the refill requests, [...] with his mood. Thank you Kevin Bhagat APRN.LOCKER ROOM ATTENDANT Patient daughter Kesha calling asking for rx [...] 2024 9:22 AM documented in this encounter [facility] 06-03-2024 Telephone encounter Note We have never prescribed the florinef. Was this from recent hospitalization? Also spoke with Dr. Dubose, and he needs seen due to these concerns and that he was to be on the seroquel to help with his mood. Thank you Kevin Bhagat APRN.PENNIE [facility] 06-01-2024 Telephone encounter Note Patient daughter Kesha [...] Kim LPN June 01, 2024 9:22 AM [facility] 05-20-2024 Telephone encounter Note Noted Regards, Kezia Dubose MD [facility] 05-20-2024 Miscellaneous Notes Noted Regards, Kezia Dubose [...] emergency contact. Daughter bringing patient to appointment. Luoisa Platt RN documented in this encounter [facility] 05-20-2024 Note HNO ID: [id number] Author: KEZIA DUBOSE MD Service: ? Author [...] Oil of Oregano [address] (Milk A Deal for [employer])Take 1 softgel daily, with meals.Disp: Rfl: (Patient not taking: Reported on 05/20/2024) Saccharomyces Boulardii 60 ct. (Klaire/Prothera)Take 1 capsule by mouth two times a day with meals.Disp: Rfl: (Pat (more content not included)... [facility] 05-20-2024 History of Presen t illness [...] Oil of Oregano [address] (Via)^Take 1 softgel daily, with meals.^Disp: ^Rfl: (Patient [...] 1. SIADH (syndrome of inappropriate ADH production) ([facility]) - ICD9: 253.6, ICD10: E22.2 (primary diagnosis) [...] Kezia Dubose MD documented in this encounter [facility] 05-20-2024 Telephone encounter Note Daughter calls with [...] bringing patient to appointment. Louisa Platt RN [facility] 05-15-2024 Note HNO ID: [id number] Author: INDIA WOODSON RN Service: ? Author Type: Registered Nurse Type: Progress Notes Filed: 05/15/2024 13:43 Note Text: CDM Telephonic Outreach Provider Action/FYI Contacted for: Routine Telephonic Outreach Contact made with patient: Yes Patient identified by name and date of . Discussed care with spouse, Betsey Are you experiencing any new or worsening symptoms you need to talk about today? No reported patient discharged from [facility] 05/14/2024 -Low sodium -Reason cannot remember Disease Specific Do you check your blood pressure at home? Yes, Enter readings: Daily - did not take today since discharged from [facility] yesterday Do you have new or worsening shortness of breath with activity? No Do you feel like you are dehydrated for any reason, including not being able to eat or drink normally, or having less urine/much darker urine than normal for you? No Do you check your daily weight at home? Yes, but did not check since just discharged from [facility] yesterday Based on slip bridge operator, the following disposition is advised: No symptoms or symptoms present, not severe. Routed to: No Action Needed VILMA Education Provided this Outreach: No Stated nurse visited patient at home yesterday Admission AND Discharge information for [facility] not in [facility] [place] needs at this time Advised PCC would call again in about 1 month Reminded patient to call office of PCP with questions or concerns Patient verbalized understanding India Woodson RN May 15, 2024 1:33 PM [facility] Telephonic Outreach Provider Action/FYI Contacted for: Routine Telephonic Outreach Contact made with patient: No, left message. Leelee Bautista, this message is for Sergo! It's India Woodson, his Registered Nurse Hair Salon Manager at [facility]. I work with his provider, Kezia Dubose MD. I am calling today for our monthly check in and I am sorry I missed you. I will reach out again tomorrow. If there is a question or concern, please reach out to his provider, Kezia Dubose MD. I hope you are both having a great day. India Woodson RN Hair Salon Manager for MD India Mcneill RN May 15, 2024 1:25 PM [facility] 05-15-2024 History of Presen t illness Narrative [facility] Telephonic Outreach Provider Action/FYI Contacted for: Routine Telephonic Outreach Contact made with patient: Yes Patient identified by name and date of . Discussed care with spouse, Betsey Are you experiencing any new or worsening symptoms you need to talk about today? No reported patient discharged from [facility] 05/14/2024 -Low sodium -Reason cannot remember Disease Specific Do you check your blood pressure at home? Yes, Enter readings: Daily - did not take today since discharged from [facility] yesterday Do you have new or worsening shortness of breath with activity? No Do you feel like you are dehydrated for any reason, including not being able to eat or drink normally, or having less urine/much darker urine than normal for you? No Do you check your daily weight at home? Yes, but did not check since just discharged from [facility] yesterday Based on slip bridge operator, the following disposition is advised: No symptoms or symptoms present, not severe. Routed to: No Action Needed VILMA Education Provided this Outreach: No Stated nurse visited patient at home yesterday Admission & Discharge information for [facility] not in [facility] [place] needs at this time Advised PCC would call again in about 1 month Reminded patient to call office of PCP with questions or concerns Patient verbalized understanding India Woodson RN May 15, 2024 1:33 PM [facility] Telephonic Outreach Provider Bessy/RACHEL Contacted for: Routine Telephonic Outreach Contact made with patient: No, left message. Leelee Bautista, this message is for Sergo! It's India Woodson, his Registered Nurse Hair Salon Manager at [facility]. I work with his provider, Kezia Dubose MD. I am calling today for our monthly check in and I am sorry I missed you. I will reach out again tomorrow. If there is a question or concern, please reach out to his provider, Kezia Dubose MD. I hope you are both having a great day. India Woodson RN Hair Salon Manager for MD India Mcneill RN May 15, 2024 1:25 PM documented in this encounter [facility] 05-15-2024 Note Patient Outreach ([facility]) HEADINGS,SERGO Suárez ([id number]) 1935 M Date Time Provider Department 05/15/24 INDIA WOODSON During your visit today, we recorded the following information about you: India Woodson RN 05/15/2024 1:43 PM Signed [facility] Telephonic Outreach Provider Bessy/RACHEL Contacted for: Routine Telephonic Outreach Contact made with patient: Yes Patient identified by name and date of . Discussed care with spouse, Betsey Are you experiencing any new or worsening symptoms you need to talk about today? No reported patient discharged from [facility] 05/14/2024 -Low sodium -Reason cannot remember Disease Specific Do you check your blood pressure at home? Yes, Enter readings: Daily - did not take today since discharged from [facility] yesterday Do you have new or worsening shortness of breath with activity? No Do you feel like you are dehydrated for any reason, including not being able to eat or drink normally, or having less urine/much darker urine than normal for you? No Do you check your daily weight at home? Yes, but did not check since just discharged from [facility] yesterday Based on slip bridge operator, the following disposition is advised: No symptoms or symptoms present, not severe. Routed to: No Action Needed VILMA Education Provided this Outreach: No Stated nurse visited patient at home yesterday Admission AND Discharge information for [facility] not in [facility] [place] needs at this time Advised PCC would call again in about 1 month Reminded patient to call office of PCP with questions or concerns Patient verbalized understanding India Woodson RN May 15, 2024 1:33 PM [facility] Telephonic Outreach Provider Action/FYI Contacted for: Routine Telephonic Outreach Contact made with patient: No, left message. Leelee Bautista, this message is for Sergo! It's India Woodson, his Registered Nurse Hair Salon Manager at [facility]. I work with his provider, Kezia Dubose MD. I am calling today for our monthly check in and I am sorry I missed you. I will reach out again tomorrow. If there is a question or concern, please reach out to his provider, Kezia Dubose MD. I hope you are both having a great day. India Woodson RN Hair Salon Manager for MD India Mcneill RN May 15, 2024 1:25 PM Allergies As of Date: 05/15/2024 Noted Allergy Reaction GLUTEN 09/23/2011 6 - Diarrhea Comments: Upset stomach Gas build up Date Reviewed: 04/24/2024 Reviewed by: Peg De Jesus MA - Fully Assessed Reason for Visit: Community Monitoring Outreach [Other] Cmt: CD Telephonic Outreach Prescriptions as of 05/23/2024 - [...] Oil of Oregano [address] (Via) Take 1 softgel daily, with meals. - [...] Neck pain, chron (more content not included)... [facility] 05-10-2024 Note HNO ID: [id number] Author: INDIA WOODSON RN Service: ? Author Type: Registered Nurse Type: Progress Notes Filed: 05/10/2024 15:54 Note Text: Opened in Error [facility] 05-10-2024 History of Presen t illness Narrative Opened in Error documented in this encounter [facility] 04-27-2024 Telephone encounter Note Kesha calls with patient update. Patient currently is at TCU at [facility]. Insurance improved for him to be there till the . Patient continues with delirium, but daughter hopes that he will start improving. Ranjana Godinez RN [facility] 04-27-2024 Miscellaneous Notes Kesha calls with patient update. Patient currently is at TCU at [facility]. Insurance improved for him to be there till the . Patient continues with delirium, but daughter hopes that he will start improving. Ranjana Godinez RN Patient admitted to [facility] TCU 04/26/2024. Ranjana Godinez RN Thank you, waiting for the response for them Regards, Kezia Dubose MD Spoke with patient's daughter, Kesha. Given message from provider's office. She is hoping for TCU admission tomorrow and will call back with update. Deyanira Jose, SESAR Yes absolutely, patient can take sodium tablet. [...] 4 times, gait is unsteady. Kesha called [facility] forensic social worker and they are going to work on patient getting placed into TCU at [facility] either tomorrow or Monday. 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 Daughter states [...] Ranjana Godinez RN documented in this encounter [facility] 04-27-2024 Telephone encounter Note Patient admitted to [facility] TCU 04/26/2024. Ranjana Godinez RN [facility] 04-26-2024 Telephone encounter Note Thank you, waiting for the response for them Regards, Kezia Dubose MD [facility] 04-25-2024 Telephone encounter Note Spoke with patient's daughter, Kesha. Given message from provider's office. She is hoping for TCU admission tomorrow and will call back with update. Deyanira Jose RN [facility] 04-25-2024 Telephone encounter Note Yes absolutely, patient can take sodium tablet. Would it be possible for her to come tomorrow morning to get the labs done because we need to know what is happening with his sodium and his hydration. Regards, Kezia Dubose MD [facility] 04-25-2024 Telephone encounter Note Called and spoke to patients daughter Kesha, patient is eating and drinking, drank around 44 ounces of broth with liquid nutrition since this morning. Urinating 3 to 4 times, gait is unsteady. Kesha called [facility] forensic social worker and they are going to work on patient getting placed into TCU at [facility] either tomorrow or Monday. 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 Daughter asking if patient can take a sodium tablet? Betsey Collado LPN April 25, 2024 4:44 PM [facility] 04-25-2024 Telephone encounter Note Patient's daughter calls back and is asking if provider advised on below. Daughter also asking if there is home nursing that can come into home to draw labs? Patient still confused. Please review and advise, Ranjana Godinez RN [facility] 04-25-2024 Telephone encounter Note Patient's daughter calls and states that patient is continuing with his delirium. Daughter asking if there are any other testing that can be done? Patient was unable to get labs done yesterday due to pharmacy ancillary unable to get any blood. Daughter states that they have been trying to get sodium in patient's diet. Daughter asking how long should it take until they start seeing some improvement? Daughter also asking if there is any way patient can be placed in a skilled unit so that he can be monitored? Please review and advise, Ranjana Godinez RN [facility] 04-24-2024 Instructions Kezia Dubose MD - 04/24/2024 [...] know if he complains of pain. Ignore sundowning unless he has behaviors that are harming [...] in preferred language. documented in this encounter [facility] 04-24-2024 History of Presen t illness Narrative [...] Oil of Oregano [address] (Milk A Deal for [employer])^Take 1 softgel daily, with meals.^Disp: ^Rfl: Saccharomyces [...] Kezia Dubose MD documented in this encounter [facility] 04-24-2024 Note HNO ID: [id number] Author: KEZIA DUBOSE MD Service: ? Author [...] Oil of Oregano [address] (Milk A Deal for [employer])Take 1 softgel daily, with meals.Disp: Rfl: Saccharomyces [...] Vaccine(1 - 1-do (more content not included)... [facility] 04-22-2024 Telephone encounter Note The patient [...] Tapia LPN April 22, 2024 11:17 AM [facility] 04-22-2024 Miscellaneous Notes The patient has been [...] 2024 11:17 AM documented in this encounter [facility] 04-18-2024 Note HNO ID: [id number] Author: KEZIA DUBOSE MD Service: ? Author Type: Physician Type: Progress Notes Filed: 04/19/2024 18:00 Note Text: CC: Patient presents with: Recheck: 6 month follow up HPI Sergo Kamini Rosas is a 88 [...] for low testosterone as ordered by an [place] provider for the past 4-5 years. Sold their house in [place] so not going to be seeing this provider anymore. Sees Dr. Mackey in [place]. Last seen over a year ago. REVIEW [...] Oil of Oregano [address] (Via)Take 1 softgel daily, with meals.Disp: Rfl: Saccharomyces [...] E34.9 (primary diagnos (more content not included)... [facility] 04-18-2024 History of Presen t illness [...] for low testosterone as ordered by an [place] provider for the past 4-5 years. Sold their house in [place] so not going to be seeing this provider anymore. Sees Dr. Mackey in [place]. Last seen over a year ago. REVIEW [...] Oil of Oregano [address] (Via)^Take 1 softgel daily, with meals.^Disp: ^Rfl: Saccharomyces [...] Kezia Dubose MD documented in this encounter [facility] 04-09-2024 History of Presen t illness Narrative CC: Patient presents with: F/U HTN 6 Month HPI Sergo Rosas is a 88 year [...] a proper intake on him. HTN: Mr. Rossa indicates that he is feeling well and [...] for low testosterone as ordered by an [place] provider for the past 4-5 years. Sold their house in [place] so not going to be seeing this provider anymore. Sees Dr. Mackey in [place]. Last seen over a year ago. REVIEW [...] Oil of Oregano [address] (Via)^Take 1 softgel daily, with meals.^Disp: ^Rfl: Saccharomyces [...] No new labs documented in this encounter [facility] 04-09-2024 Note HNO ID: [id number] Author: KEZIA DUBOSE MD Service: ? Author Type: Physician Type: Progress Notes Filed: 04/12/2024 16:59 Note Text: CC: Patient presents with: F/U HTN 6 Month HPI Sergo Rosas is a 88 year [...] for low testosterone as ordered by an [place] provider for the past 4-5 years. Sold their house in [place] so not going to be seeing this provider anymore. Sees Dr. Mackey in [place]. Last seen over a year ago. REVIEW [...] Oil of Oregano [address] (Via)Take 1 softgel daily, with meals.Disp: Rfl: Saccharomyces [...] gallop, or ru (more content not included)... [facility] 03-25-2024 Note HNO ID: [id number] Author: INDIA WOODSON RN Service: ? Author Type: Registered Nurse Type: Progress Notes Filed: 03/25/2024 15:00 Note Text: CDM Telephonic Outreach Provider Action/FYI [...] lost weight as noted above Based on slip bridge operator, the following disposition is advised: No symptoms or symptoms present, not severe. Routed to: No Action Needed VILMA Education Provided this Outreach: No Reviewed upcoming appointment Denies needs at this time Advised PCC would call again in about 1 month Reminded patient to call office of PCP with questions or concerns Patient verbalized understanding India Woodson RN March 25, 2024 2:59 PM [facility] 03-25-2024 History of Presen t illness Narrative [facility] Telephonic Outreach Provider Action/FYI Contacted for: Routine [...] lost weight as noted above Based on slip bridge operator, the following disposition is advised: No symptoms [...] 2024 2:59 PM documented in this encounter [facility] 03-25-2024 Telephone encounter Note Opened in Error [facility] 03-25-2024 Miscellaneous Notes Opened in Error documented in this encounter [facility] 03-25-2024 Note Patient Outreach (AM [facility]) HEADINGS,SERGO Suárez ([id number]) 1935 M Date Time Provider Department 03/25/24 INDIA WOODSON [facility] During your visit today, we recorded the following information about you: Pulse Blood pressure 61/minute 115/61 India Woodson, SESAR 03/25/2024 3:00 PM Signed CDM Telephonic Outreach Provider Action/FYI [...] lost weight as noted above Based on slip bridge operator, the following disposition is advised: No symptoms [...] for Visit: Community Monitoring Outreach [Other] Cmt: COOPER Telephonic Outreach Prescriptions as of 05/02/2024 - [...] pneumothorax [S27.0XXA] 04/04/202303/25 (more content not included)... [facility] 03-23-2024 Telephone encounter Note The patient [...] Jose RN March 23, 2024 9:43 AM [facility] 03-23-2024 Miscellaneous Notes The patient has been [...] 2024 9:43 AM documented in this encounter [facility] 03-01-2024 Telephone encounter Note Talked to patient and he verbally understands he does an UTI and to cont. Antibiotics. Lucas Tamayo . [facility] 03-01-2024 Miscellaneous Notes Talked to patient and he verbally understands he does an UTI and to cont. Antibiotics. Lucas Tamayo . Please let patient know his urine culture did grow bacteria indicating a UTI. He is on the appropriate antibiotic. Finish all of this medication. Follow-up with PCP for persistent symptoms. documented in this encounter [facility] 03-01-2024 Telephone encounter Note Please let patient know his urine culture did grow bacteria indicating a UTI. He is on the appropriate antibiotic. Finish all of this medication. Follow-up with PCP for persistent symptoms. [facility] Work Phone: 02-28-2024 Note HNO ID: [id number] Author: KIRSTIE ANGUIANO APRN.LOCKER ROOM ATTENDANT Service: ? Author Type: Nurse Practitioner Type: Progress Notes Filed: 02/28/2024 12:22 Note Text: This note was created using LegiTime Technologiesriter. Subjective Sergo E Headings is a 89 [...] by the patient and the spouse. No high school physical education teacher was used. UTI This is a recurrent [...] Oil of Oregano [address] (Via)Take 1 softgel daily, with meals.Disp: Rfl: Saccharomyces [...] Negative for col (more content not included)... [facility] 02-28-2024 History of Presen t illness Narrative This note was created using [employer] [place]. Subjective Sergo Suárez Headings is a 89 [...] by the patient and the spouse. No high school physical education teacher was used. UTI This is a recurrent [...] Oil of Oregano [address] (Via)^Take 1 softgel daily, with meals.^Disp: ^Rfl: Saccharomyces [...] URINE (POC) - URINE CULTURE Kirstie Anguiano APRN.PENNIE documented in this encounter [facility] 02-27-2024 Note HNO ID: [id number] Author: INDIA WOODSON RN Service: ? Author Type: Registered Nurse Type: Progress Notes Filed: 02/27/2024 11:17 Note Text: M Telephonic Outreach Provider Action/FYI Contacted for: Routine [...] gained weight as noted above Based on slip bridge operator, the following disposition is advised: No symptoms or symptoms present, not severe. Routed to: No Action Needed VILMA Education Provided this Outreach: No Last fall: 12/2023 coming home from [place] -Hurrying to bathroom AND tripped up step causing small left knee abrasion Denies needs at this time Advised PCC would call again in about 1 month Reminded patient to call office of PCP with questions or concerns Patient verbalized understanding India Woodson RN February 27, 2024 11:15 AM [facility] Telephonic Outreach Provider Action/FYI Contacted for: Goals/Falls/ADL Update Contact made with patient: Yes Patient identified by name and date of . Discussed care with: patient Falls completed:Yes ADL's updated: Yes Transportation AND Food Insecurities SDH Updated India Woodson RN February 27, 2024 11:16 AM [facility] 02-27-2024 History of Presen t illness Narrative [facility] Telephonic Outreach Provider Action/FYI Contacted for: Routine [...] gained weight as noted above Based on slip bridge operator, the following disposition is advised: No symptoms or symptoms present, not severe. Routed to: No Action Needed VILMA Education Provided this Outreach: No Last fall: 12/2023 coming home from [place] [facility] to bathroom & tripped up step causing small left knee abrasion Denies needs at this time Advised PCC would call again in about 1 month Reminded patient to call office of PCP with questions or concerns Patient verbalized understanding India Woodson RN February 27, 2024 11:15 AM [facility] Telephonic Outreach Provider Action/FYI Contacted for: Goals/Falls/ADL Update Contact made with patient: Yes Patient identified by name and date of . Discussed care with: patient Falls completed:Yes ADL's updated: Yes Transportation & Food Insecurities SDH Updated India Woodson RN February 27, 2024 11:16 AM documented in this encounter [facility] 02-27-2024 Note Patient Outreach (AM [facility]) HEADINGS,SERGO Suárez ([id number]) 1935 M Date Time Provider Department 02/27/24 INDIA WOODSON During your visit today, we recorded the following information about you: Pulse Blood pressure Weight 58/minute 117/52 64 kg India Woodson, SESAR 02/27/2024 11:17 AM Signed [facility] Telephonic Outreach Provider Action/FYI Contacted for: Routine [...] gained weight as noted above Based on slip bridge operator, the following disposition is advised: No symptoms or symptoms present, not severe. Routed to: No Action Needed VILMA Education Provided this Outreach: No Last fall: 12/2023 coming home from [place] to bathroom AND tripped up step causing small left knee abrasion Denies needs at this time Advised PCC would call again in about 1 month Reminded patient to call office of PCP with questions or concerns Patient verbalized understanding India Woodson RN February 27, 2024 11:15 AM [facility] Telephonic Outreach Provider Action/FYI Contacted for: Goals/Falls/ADL [...] Monitoring Outreach [Other] Cmt: CDM Telephonic Outreach - Second Attempt Prescriptions as of 02/27/2024 - hydrocortisone 2.5 % ointment Apply to itchy areas once daily - metoprolol tartrate, short acting, (LOPRESSOR) 50 mg tablet Take 1 tablet by mouth two times a day. - MEDICATION, NON-DATABASE Algae Jared - Oil of Oregano [address] (Milk A Deal for [employer]) Take 1 softgel daily, with meals. - [...] Severe protein-calorie maln (more content not included)... [facility] 02-23-2024 Note HNO ID: [id number] Author: INDIA WOODSON RN Service: ? Author Type: Registered Nurse Type: Progress Notes Filed: 02/26/2024 10:47 Note Text: CDM Telephonic Outreach Provider Action/FYI [...] Woodson RN February 26, 2024 10:46 AM [facility] 02-23-2024 History of Presen t illness Narrative CDM Telephonic Outreach Provider Action/RACHEL Contacted for: Routine Telephonic Outreach Contact made with patient: Yes Patient identified by name and date of . Discussed care with patient Are you experiencing any new or worsening symptoms you need to talk about today? No Patient & at for appointment for PCC will call again tomorrow India Woodson RN February 26, 2024 10:46 AM documented in this encounter [facility] 02-23-2024 Note Patient Outreach (AM [facility]) HEADINGS,SERGO Suárez ([id number]) 1935 M Date Time Provider Department 02/23[facility] During your visit today, we recorded the following information about you: Indai Woodson RN 02/26/2024 10:47 AM Signed [facility] Telephonic Outreach Provider Action/RACHEL Contacted for: Routine Telephonic Outreach Contact made [...] for Visit: Community Monitoring Outreach [Other] Cmt: [facility] Telephonic Outreach - Second Attempt Prescriptions as [...] Encounter Status:Closed by INDIA WOODSON on 02/26/24 [facility] 02-06-2024 Note HNO ID: [id number] Author: ALKA MELARA PA-C Service: ? Author Type: Physician Soccer Ball Assembler Type: Progress Notes Filed: 02/06/2024 11:32 Note Text: This note was created using LegiTime Technologiesriter. Subjective Sergo E Headings is a 89 [...] Oil of Oregano [address]. (Milk A Deal for [employer]) Take 1 softgel daily, with meals. Saccharomyces [...] is alert. Assessme (more content not included)... [facility] 02-06-2024 History of Presen t illness Narrative This note was created using NoteWriter. Subjective Sergo E Headings is a 89 [...] Oil of Oregano [address] (Milk A Deal for [employer]) Take 1 softgel daily, with meals. Saccharomyces [...] Alka Melara PA-C documented in this encounter [facility] 02-06-2024 Instructions Vernell Martinez PA-C - 02/06/2024 [...] in 6 months documented in this encounter [facility] 02-06-2024 Note HNO ID: [id number] Author: VERNELL MARTINEZ PA-C Service: ? Author Type: Physician Soccer Ball Assembler Type: Progress Notes Filed: 02/06/2024 10:27 Note [...] vision. Recently drove all the way to [place] without any issues, no issues with memory. Does not 1 fall while he was on his way back from [place]. States he was coming up on a [...] Oil of Oregano [address] (Milk A Deal for [employer])Take 1 softgel daily, with meals.Disp: Rfl: COQ10, UBIQUINOL, ORALTake by mouth.Disp: Rfl: amLODIPine (NORVASC) 5 m (more content not included)... [facility] 02-06-2024 History of Presen t illness [...] vision. Recently drove all the way to [place] without any issues, no issues with memory. Does not 1 fall while he was on his way back from [place]. States he was coming up on a [...] Oil of Oregano [address] (Via)^Take 1 softgel daily, with meals.^Disp: ^Rfl: COQ10, [...] dysarthria; comprehension, naming, repetition intact. 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 CN: PERRL, fundi appear normal [...] without issue, completed a cross-country trip to [place] recently with his . No new symptoms [...] which included preparing to see the patient, dvfr-te-[id number] patient care, completing clinical documentation, obtaining and/or reviewing separately obtained history, performing a medically appropriate examination, counseling and educating the patient/family/caregiver, and ordering medications, tests, or procedures. This document has been created with the use of voice recognition technology. It may contain inaccuracies: (e.g. misspellings, inaccurate syntax or word sense) that have escaped review. documented in this encounter [facility] 01-29-2024 Note HNO ID: [id number] Author: KATHY HUGGINS MD Service: ? Author [...] Take 1 tablet by mouth w MEALS. s-bsfrtewjr-glucognm root extract-aloe leaf extract (GLUTAGENICS) 7433-742-05zi powder Mix one teaspoon (4.33 g) with [...] tablets three times daily Biocidin Advanced Formula (Netsket) Take 5 Drops by mouth three times [...] his spouse to (more content not included)... [facility] 01-29-2024 History of Presen t illness Narrative FUNCTIONAL MEDICINE FOLLOW-UP ASSESSMENT Patient: Sergo Rosas [...] Take 1 tablet by mouth w MEALS. 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 Now living in [place] with . Still working on strengthening with [...] (brought into office) - use of Black [place] and antiparasitic cleanse recommended by family member 2. Itching - noting long body - varying places - no rhyme or reason for location. Noting hot showers with some relief. Living in [place] to Apr then in [place]. Noting skin with rash along back at [...] Meals - Breakfast -Rice chex - fruit. [place] sausage - Lunch - Salad with - Dinner - Beets, squash, fish / beef , eggs (pastured raised) Snack Coconut ice cream Drink - Water with lemon - + daily - Camomile tea. - Limiting coffee - Some juice ([place]) - no soda. Bowel Habits: Varies. [place] Type 5 to 7 (diet shifting?) Supplement? 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 Non-fasting. GI effects [...] We recommend ordering supplementation online from the [facility] [employer] as they are high quality therapeutic supplements. [employer] [facility] offers an easy to use, convenient way to order supplementation recommended by your provider through the [employer]. All of the products offered are considered high-quality, and adhere to specific criteria for quality and effectiveness including good manufacturing practices, use of clean products, free of fillers, binders, and other antigens. In addition, we follow third alliance party analysis for independent verification of active ingredients. Get started by following three easy steps: A. Visit the following webpage: https://[email or web address].Elco/ [employer] Statements on this site have not been [...] For issues with your MRN please call [phone] Stress Management [employer] -new technology to use a wearable device to retrain brain and focus on nervous system reduction. To learn more of this technology by going to (mnx-zwg-nuykr) https://Anna-Rita [employer]/ Please look into this Heart Rate Variability [...] one of the Heart Math booklets off [employer] that fits your 'go to' emotion - [...] fully) . --- Polyvagal theory (Richard Walker) https://www.stephenporges.[email or web address]/ --- Dynamic Neural Retraining System - (Karlene Muñoz) https://retrainingthebrain.com/cyn aldana/ --- Fournier Program - (Drew Fournier) Https://www.sherryPS Biotech.Acacia/ Finding time for self (no multitasking) at this time to dedicate to breathing / relaxation process. Work on cultivating kevin! Future Plans (for provider use): I spent a total of 30 minutes on the date of the service which included preparing to see the patient, pxnm-yg-ajuw patient care, completing clinical documentation, obtaining and/or reviewing separately obtained history, counseling and educating the patient/family/caregiver, communicating with other HCPs (not separately reported), and independently interpreting results (not separately reported). Kathy Huggins MD documented in this encounter [facility] 2024 Instructions Kevin Bhagat APRN.CNP - 2024 4:49 PM EDT Hold you dose of amlodipine if Blood Pressure is less than 110/60 documented in this encounter [facility] 2024 Note HNO ID: [id number] Author: KEVIN BHAGAT APRN.CNP Service: ? Author [...] for low testosterone as ordered by an [place] provider for the past 4-5 years. Sold their house in [place] so not going to be seeing this provider anymore. Sees Dr. Mackey in [place]. Last seen over a year ago. REVIEW [...] Oregano [address] (Designs for [employer])Take 1 softgel daily, with meals.Disp: Rfl: Saccharomyces [...] 60+ series) due (more content not included)... [facility] 2024 History of Presen t illness Narrative CC: Patient presents with: Recheck: Bp follow up [facility] Sergo Rosas is a 88 year old [...] for low testosterone as ordered by an [place] provider for the past 4-5 years. Sold their house in [place] so not going to be seeing this provider anymore. Sees Dr. Mackey in [place]. Last seen over a year ago. REVIEW [...] Oil of Oregano [address] (Via)^Take 1 softgel daily, with meals.^Disp: ^Rfl: Saccharomyces Boulardii 60 ct. (Klaire/Prothera)^Take 1 capsule by mouth two times a day with meals.^Disp: ^Rfl: COQ10, UBIQUINOL, ORAL^Take by mouth.^Disp: ^Rfl: magnesium chloride (MAG64) [address] tablet^TAKE 2 TABLETS BY MOUTH EVERY DAY^Disp: 60 tablet^Rfl: 3 (Patient not taking: Reported on 2024) Yeast Formula ([employer])^Take 2 enteric-coated softgels between meals twice [...] Kevin Bhagat APRN.CNP documented in this encounter [facility] 2024 History of Presen t illness Narrative Images from the original note were not included. [facility] [place] [facility] Department of Cardiovascular Medicine OUTPATIENT VISIT DATE 2024 OUTPATIENT VISIT TYPE ESTABLISHED PRIMARY CARE PHYSICIAN: Kezia Dubose MD [address] [facility] [id number] CHIEF COMPLAINT: Patient presents with: Cardiology Follow [...] of this year. He was admitted to [facility]. 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 There [...] to find the results. We will contact [facility] for the results of the monitor. He [...] Oil of Oregano [address] (Milk A Deal for [employer])^Take 1 softgel daily, with meals.^Disp: ^Rfl: Saccharomyces Boulardii [address] ct[address] (Klaire/Prothera)^Take 1 capsule by mouth two times a day with meals.^Disp: ^Rfl: magnesium chloride (MAG64) [address] tablet^TAKE 2 TABLETS BY MOUTH EVERY DAY^Disp: 60 tablet^Rfl: 3 (Patient not taking: Reported on 2024) Yeast Formula ([employer])^Take 2 enteric-coated softgels between meals twice [...] - Exam was compared with the prior CC echocardiographic exam performed on 05/13/21. * * * Final * * * Last EKG Result Conclusion ECG COMPLETE Collected: 03/02/2023 2:07 PM (Final result) Impression: SINUS BRADYCARDIA NONSPECIFIC ST ABNORMALITY ABNORMAL ECG Confirmed by WALTER NUÑEZ M.D. ([id number]) on 03/02/2023 4:55:08 PM LABS: Sodium Date [...] of any further assistance. Walter Nuñez MD, [facility] Department of Cardiovascular Medicine [facility] [place] [facility] [address] [address] Medical Decision Making: Problems: Moderate: 2+ stable chronic illnesses Data: Unique test result(s) reviewed: 2 Unique test(s) ordered: 1 Risk: Moderate: Moderate risk from testing/treatment Medical Decision Making Level: 4 - Moderate documented in this encounter [facility] 2024 Note HNO ID: [id number] Author: WALTER NUÑEZ MD Service: ? Author Type: Physician Type: Progress Notes Filed: 2024 11:44 Note Text: [facility] [place] [facility] Department of Cardiovascular Medicine OUTPATIENT VISIT DATE 2024 OUTPATIENT VISIT TYPE ESTABLISHED PRIMARY CARE PHYSICIAN: Kezia Dubose MD [address] [facility] [address] CHIEF COMPLAINT: Patient presents with: Cardiology Follow [...] of this year. He was admitted to [facility]. 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 There [...] to find the results. We will contact [facility] for the results of the monitor. He [...] tablet in th (more content not included)... [facility] 01-23-2024 Note HNO ID: [id number] Author: LESA HOLLOWAY MA Service: ? Author Type: Solar Installation Manager Type: Progress Notes Filed: 01/23/2024 12:18 Note Text: POPULATION HEALTH NAVIGATION OUTREACH Action/FYI Spoke to patient and appointment scheduled. Reason for Outreach Community Monitoring/Network Navigator Pools AND Phone Line: CDM Patient Contacted: Spoke to patient/parent/or legal guardian Patient identified by name and : Yes Community Monitoring/Network Navigator Pools AND Phone Line actions taken: Patient scheduled: Follow-Up Appointment 2024 in [facility] with WALTER NUÑEZ - follow up 2024 in [facility] with KEVIN BHAGAT - blood pressure check AND medication review 01/29/2024 in [facility] with KATHY HUGGINS - 4 MONTH FOLLOW UP 02/06/2024 in [facility]UR [facility] with VERNELL MARTINEZ - 6 month follow up stroke [facility] KEVIN BHAGAT - 6 month follow up, please review [facility] Navigation Signature: Lesa Holloway MA January 23, 2024 12:18 PM [facility] 01-23-2024 History of Presen t illness Narrative POPULATION HEALTH NAVIGATION OUTREACH Action/FYI Spoke to patient and appointment scheduled. Reason for Outreach Community Monitoring/Network Navigator Pools & Phone Line: [facility] Patient Contacted: Spoke to patient/parent/or legal guardian Patient identified by name and : Yes Community Monitoring/Network Navigator Pools & Phone Line actions taken: Patient scheduled: Follow-Up Appointment 2024 in [facility] with WALTER NUÑEZ - follow up 2024 in [facility] with KEVIN BHAGAT - blood pressure check & medication review 01/29/2024 in [facility] with KATHY HUGGINS - 4 MONTH FOLLOW UP 02/06/2024 in [facility] with VERNELL MARTINEZ - 6 month follow up stroke 04/01/2024 in [facility] with KEVIN BHAGAT - 6 month follow up, please review [facility] Navigation Signature: Lesa Holloway MA January 23, 2024 12:18 PM [facility] Telephonic Outreach Provider Action/FYI Navigation Team Follow Up Actions -Please call patient to schedule PCP/STRAP FOLDING MACHINE OPERATOR/PAC/Colleague visit within 7-10 days for blood pressure check & medication review -Please remind patient to bring his blood pressure monitor to the visit Contacted for: Routine Telephonic Outreach Contact made with patient: Yes Patient identified by name and date of . Discussed care with patient - [employer] message sent Are you experiencing any new [...] pounds in a week? No Based on slip bridge operator, the following disposition is advised: No symptoms or symptoms present, not severe. Routed to: Navigation Team: PCP visit within 7 days for blood pressure check & to review blood pressure medications VILMA Education Provided this Outreach: No Denies needs at this time Provided Appointment Center Number via [employer] Reminded patient to call office of PCP with questions or concerns India Woodson RN January 23, 2024 11:30 AM CD Telephonic Outreach Provider Bessy/RACHEL Contacted for: Routine Telephonic Outreach Contact made with patient: No, unable to leave message on home phone - VM has not been set up Will reattempt call India Woodson RN January 23, 2024 11:25 AM documented in this encounter [facility] 01-23-2024 Note HNO ID: [id number] Author: INDIA WOODSON RN Service: ? Author Type: Registered Nurse Type: Progress Notes Filed: 01/23/2024 11:50 Note Text: [facility] Telephonic Outreach Provider Action/RACHEL Navigation Team Follow Up Actions -Please call patient to schedule PCP/STRAP FOLDING MACHINE OPERATOR/PAC/Colleague visit within 7-10 days for blood pressure check AND medication review -Please remind patient to bring his blood pressure monitor to the visit Contacted for: Routine Telephonic Outreach Contact made with patient: Yes Patient identified by name and date of . Discussed care with patient - [employer] message sent Are you experiencing any new [...] pounds in a week? No Based on slip bridge operator, the following disposition is advised: No symptoms or symptoms present, not severe. Routed to: Navigation Team: PCP visit within 7 days for blood pressure check AND to review blood pressure medications VILMA Education Provided this Outreach: No Denies needs at this time Provided Appointment Center Number via [employer] Reminded patient to call office of PCP with questions or concerns India Woodson RN January 23, 2024 11:30 AM [facility] Telephonic Outreach Provider Bessy/RACHEL Contacted for: Routine Telephonic Outreach Contact made with patient: No, unable to leave message on home phone - VM has not been set up Will reattempt call India Woodson RN January 23, 2024 11:25 AM [facility] 01-23-2024 Note Patient Outreach (AM [facility]) HEADINGS,SERGO Suárez ([id number]) 1935 M Date Time Provider Department 01/23/24 INDIA WOODSON During your visit today, we recorded the following information about you: Weight 64 kg India Woodson RN 01/23/2024 11:50 AM Signed [facility] Telephonic Outreach Provider Bessy/RACHEL Navigation Team Follow Up Actions -Please call patient to schedule PCP/STRAP FOLDING MACHINE OPERATOR/PAC/Colleague visit within 7-10 days for blood pressure check AND medication review -Please remind patient to bring his blood pressure monitor to the visit Contacted for: Routine Telephonic Outreach Contact made with patient: Yes Patient identified by name and date of . Discussed care with patient - [employer] message sent Are you experiencing any new [...] pounds in a week? No Based on slip bridge operator, the following disposition is advised: No symptoms or symptoms present, not severe. Routed to: Navigation Team: PCP visit within 7 days for blood pressure check AND to review blood pressure medications VILMA Education Provided this Outreach: No Denies needs at this time Provided Appointment Center Number via [employer] Reminded patient to call office of PCP with questions or concerns India Woodson RN January 23, 2024 11:30 AM CDM Telephonic Outreach Provider Action/FYI Contacted for: [...] Community Monitoring/Network Navigator Pools AND Phone Line: [facility] Patient Contacted: Spoke to patient/parent/or legal guardian Patient identified by name and : Yes Community Monitoring/Network Navigator Pools AND Phone Line actions taken: Patient scheduled: Follow-Up Appointment 2024 in [facility] with WALTER NUÑEZ - follow up 2024 in [facility] with KEVIN BHAGAT - blood pressure check AND medication review 01/29/2024 in [facility] with KATHY HUGGINS - 4 MONTH FOLLOW UP 02/06/2024 in [facility] with VERNELL MARTINEZ - 6 month follow up stroke [facility] KEVIN BH[facility] - 6 month follow up, please review [facility] Navigation Signature: Lesa Holloway MA January 23, 2024 12:18 PM Allergies As of Date: 01/23/2024 Noted Allergy Reaction GLUTEN 09/23/2011 6 - Diarrhea Comments: Upset stomach Gas build up Date Reviewed: 11/07/2023 Reviewed by: Nataliia Wills LPN - Fully Assessed Reason for Visit: Community Monitoring Outreach [Other] Cmt: [facility] Telephonic Outreach Prescriptions as of 01/23/2024 - hydrocortisone 2.5 % ointment Apply to itchy areas once daily - metoprolol tartrate, short acting, (LOPRESSOR) 50 mg tablet Take 1 tablet by mouth two times a day. - MEDICATION, NON-DATABASE Algae Jared - Oil of Oregano [address] (Via) Take 1 softgel daily, with meals. - [...] Maxxum 4 multi-arthur (more content not included)... [facility] 12-26-2023 Note HNO ID: [id number] Author: INDIA WOODSON RN Service: ? Author Type: Registered Nurse Type: Progress Notes Filed: 12/26/2023 12:47 Note Text: CDM Telephonic Outreach Provider Action/FYI [...] daily weight at home? No Based on slip bridge operator, the following disposition is advised: No symptoms or symptoms present, not severe. Routed to: No Action Needed VILMA Education Provided this Outreach: No Denies needs at this time Reminded patient to call office of PCP with questions or concerns India Woodson RN December 26, 2023 12:45 PM [facility] 12-26-2023 History of Presen t illness Narrative [facility] Telephonic Outreach Provider Action/FYI Contacted for: Routine [...] daily weight at home? No Based on slip bridge operator, the following disposition is advised: No symptoms or symptoms present, not severe. Routed to: No Action Needed VILMA Education Provided this Outreach: No Denies needs at this time Reminded patient to call office of PCP with questions or concerns India Woodson RN December 26, 2023 12:45 PM documented in this encounter [facility] 12-26-2023 Note Patient Outreach (AM [facility]) HEADINGS,SERGO Suárez ([id number]) 1935 M Date Time Provider Department 12/26/23 INDIA WOODSON During your visit today, we recorded the following information about you: India Woodson, SESAR 12/26/2023 12:47 PM Signed [facility] Telephonic Outreach Provider Action/FYI Contacted for: Routine [...] daily weight at home? No Based on slip bridge operator, the following disposition is advised: No symptoms [...] for Visit: Community Monitoring Outreach [Other] Cmt: [facility] Telephonic Outreach Prescriptions as of 12/26/2023 - [...] Encounter Status:Closed by INDIA WOODSON on 12/26/23 [facility] 11-15-2023 Note HNO ID: [id number] Author: INDIA WOODSON, RN Service: ? Author Type: Registered Nurse Type: Progress Notes Filed: 11/15/2023 11:11 Note Text: M Telephonic Outreach Provider Action/FYI Contacted for: Routine [...] self this morning 148 pounds Based on slip bridge operator, the following disposition is advised: No symptoms or symptoms present, not severe. Routed to: No Action Needed VIL[employer] Education Provided this Outreach: No At the end of the conversation, patient stated he and his drove to [place] AND will return the end of December 2023 Denies needs at this time India Woodson RN November 15, 2023 11:10 AM [facility] 11-15-2023 History of Presen t illness Narrative [facility] Telephonic Outreach Provider Action/FYI Contacted for: Routine [...] self this morning 148 pounds Based on slip bridge operator, the following disposition is advised: No symptoms or symptoms present, not severe. Routed to: No Action Needed VILMA Education Provided this Outreach: No At the end of the conversation, patient stated he and his drove to [place] & will return the end of December 2023 Denies needs at this time India Woodson RN November 15, 2023 11:10 AM documented in this encounter [facility] 11-15-2023 Note Patient Outreach (AM [facility]) SERGO ROSAS ([id number]) 1935 M Date Time Provider Department 11/15/23 INDIA WOODSON During your visit today, we recorded the following information about you: Weight 67.1 kg India Woodson, RN 11/15/2023 11:11 AM Signed [facility] Telephonic Outreach Provider Action/FYI Contacted for: Routine [...] self this morning 148 pounds Based on slip bridge operator, the following disposition is advised: No symptoms or symptoms present, not severe. Routed to: No Action Needed VILMA Education Provided this Outreach: No At the end of the conversation, patient stated he and his drove to [place] AND will return the end of December 2023 Denies needs at this time India Woodson RN November 15, 2023 11:10 AM Allergies As of Date: 11/15/2023 Noted Allergy Reaction GLUTEN 09/23/2011 6 - Diarrhea Comments: Upset stomach Gas build up Date Reviewed: 11/07/2023 Reviewed by: Nataliia Wills LPN - Fully Assessed Reason for Visit: Community Monitoring Outreach [Other] Cmt: [facility] Telephonic Outreach Prescriptions as of 11/15/2023 - [...] Encounter Status:Closed by INDIA WOODSON on 11/15/23 [facility] 11-14-2023 Note HNO ID: [id number] Author: BARAK PARTIDA RN Service: ? Author Type: Registered Nurse Type: Progress Notes Filed: 04/22/2024 10:12 Note Text: [facility] NURSE - CHART REVIEW Provider [facility] Action 04/22/2023 patient with recent history of CVA presented to ED due to vomiting CT revealed no acute changes. Pt identified by name and . Reason for Review: Payor request Patient Attributed To: QAE Payer: [employer] Chart Review For: Utilization: Avoidable ED Total Patient High CostTotal Patient High Cost {HIGH COST:484970) Quality measure review Payor request for assistance Action Taken: Data submitted to payor Barak Partida RN November 14, 2023 1:03 PM [facility] 11-14-2023 History of Presen t illness Narrative [facility] NURSE - CHART REVIEW Provider [facility] Action 04/22/2023 patient with recent history of CVA presented to ED due to vomiting CT revealed no acute changes. Pt identified by name and . Reason for Review: Payor request Patient Attributed To: QAE Payer: [employer] Chart Review For: Utilization: ED Total Patient High CostTotal Patient High Cost {HIGH COST:532264) Quality measure review Payor request for assistance Action Taken: Data submitted to zach Partida RN November 14, 2023 1:03 PM documented in this encounter [facility] 11-14-2023 Note Patient Outreach (AM [facility]) HEADINGS,SERGO Suárez ([id number]) 1935 M Date Time Provider Department 11/14/23 BARAK PARTIDA [facility] During your visit today, we recorded the following information about you: Barak Partida RN 04/22/2024 10:12 AM Addendum CC [facility] NURSE - CHART REVIEW Provider RACHEL Doherty 04/22/2023 patient with recent history of CVA presented to ED due to vomiting CT revealed no acute changes. Pt identified by name and . Reason for Review: Payor request Patient Attributed To: QAE Payer: [employer] Chart Review For: Utilization: Avoidable ED Total Patient High CostTotal Patient High Cost {HIGH COST:004969) Quality measure review Payor request for assistance [...] Encounter Status:Closed by BARAK PARTIDA on 11/14/23 [facility] 11-07-2023 Note HNO ID: [id number] Author: LESA MERAZ MD Service: ? Author [...] (HCC) 02/25/2016 Stage 3a chronic kidney disease ([facility]) 02/10/2021 Stroke, Ischemic - Right [...] Oil of Oregano [address] (Via) Take 1 softgel daily, with meals. Saccharomyces [...] that are ordered. (more content not included)... [facility] 11-07-2023 History of Presen t illness [...] Comment: discussed Plan: as above Olu Leos APRN.LOCKER ROOM ATTENDANT- training By signing my name below, I, Nataliia Wills LPN, attest that this documentation has been prepared under the direction and in the presence of Lesa Mearz MD. Electronically Signed: Nataliia Wills LPN, Scribe. November 07, 2023 9:05 AM. I, Lesa Meraz MD, personally performed the [...] 2023 9:05 AM. documented in this encounter [facility] 10-17-2023 Note HNO ID: [id number] Author: NINOSKA PHILLIPS RD Service: ? Author Type: Registered Dietitian Type: Progress Notes Filed: 10/17/2023 17:20 Note Text: [facility] Nutrition Therapy: Follow-Up Assessment (Individual) PHONE - VIRTUALVISITPN I have communicated my name and active licensure. The patient's identity and physical location were verified at the time of this visit. Either the patient or their legal retail service representative has been informed of the risks and benefits of -- and alternatives to -- treatment through a remote evaluation and consents to proceed with the evaluation remotely. Patient is located in the [facility] at the time of the virtual visit. [...] PAL, wt mainte (more content not included)... [facility] 10-11-2023 Note HNO ID: [id number] Author: INDIA WOODSON RN Service: ? Author [...] daily weight at home? No Based on slip bridge operator, the following disposition is advised: No symptoms or symptoms present, not severe. Routed to: No Action Needed VILMA Education Provided this Outreach: No Denies needs at this time Reminded patient to call office of PCP with questions or concerns India Woodson RN October 11, 2023 3:24 PM [facility] 10-11-2023 Note Patient Outreach (AM [facility]) HEADINGS,SERGO Suárez ([id number]) 1935 M Date Time Provider Department 10/11/23 INDIA WOODSON During your visit today, we recorded the following information about you: India Woodson RN 10/11/2023 3:25 PM Signed [facility] Telephonic Outreach Provider Action/FYI Contacted for: Routine [...] daily weight at home? No Based on slip bridge operator, the following disposition is advised: No symptoms [...] for Visit: Community Monitoring Outreach [Other] Cmt: [facility] Telephonic Outreach Prescriptions as of 10/11/2023 - [...] Encounter Status:Closed by INDIA WOODSON on 10/11/23 [facility] 10-02-2023 Note HNO ID: [id number] Author: KEVIN BHAGAT APRN.LOCKER ROOM ATTENDANT Service: ? Author Type: Nurse Practitioner Type: Progress Notes Filed: 10/05/2023 07:28 Note Text: CC: Patient presents with: Follow Up: 3 month follow up HPI Sergo Suárez Headings is a 88 year old male who presents today for routine follow up. HTN, CKD, and HLD: Ralph indicates that he is feeling well and [...] Oil of Oregano [address] (Via)Take 1 softgel daily, with meals.Disp: Rfl: Saccharomyces [...] kg (153 lb) (more content not included)... [facility] 09-27-2023 Note HNO ID: [id number] Author: Kathy Huggins MD Service: ? Author [...] Take 1 tablet by mouth w MEALS. t-wajckytro-wdaoynuq root extract-aloe leaf extract (GLUTAGENICS) [id number] powder Mix one teaspoon (4.33 g) with [...] tablets three times daily Biocidin Advanced Formula (Netsket) Take 5 Drops by mouth three times [...] Formula as discussed. (more content not included)... [facility] 09-08-2023 Note HNO ID: [id number] Author: India Woodson RN Service: ? Author Type: Registered Nurse Type: Progress Notes Filed: 09/08/2023 6:43 PM Note Text: [facility] Telephonic Outreach Provider Action/FYI Contacted for: Routine [...] gains weight as noted above Based on slip bridge operator, the following disposition is advised: No symptoms or symptoms present, not severe. Routed to: No Action Needed VILMA Education Provided this Outreach: No Denies needs at this time Reminded patient to call office of PCP with questions or concerns India Woodson RN September 08, 2023 6:42 PM [facility] 09-08-2023 History of Presen t illness Narrative [facility] Telephonic Outreach Provider Action/FYI Contacted for: Routine [...] gains weight as noted above Based on slip bridge operator, the following disposition is advised: No symptoms or symptoms present, not severe. Routed to: No Action Needed VILMA Education Provided this Outreach: No Denies needs at this time Reminded patient to call office of PCP with questions or concerns India Woodson RN September 08, 2023 6:42 PM documented in this encounter [facility] 09-08-2023 Note Patient Outreach (AM [facility]) HEADINGS,SERGO Suárez ([id number]) 1935 M Date Time Provider Department 09/08/23 INDIA WOODSON During your visit today, we recorded the following information about you: Weight 68 kg India Woodson RN 09/08/2023 6:43 PM Signed [facility] Telephonic Outreach Provider Action/FYI Contacted for: Routine [...] gains weight as noted above Based on slip bridge operator, the following disposition is advised: No symptoms [...] for Visit: Community Monitoring Outreach [Other] Cmt: [facility] Telephonic Outreach Prescriptions as of 09/08/2023 - [...] Encounter Status:Closed by INDIA WOODSON on 09/08/23 [facility] 08-21-2023 Note HNO ID: [id number] Author: Lesa Meraz MD Service: ? Author Type: Physician Type: Progress Notes Filed: 08/21/2023 2:18 PM Note Text: EST PATIENT LISA in Dermatology: 07/26/2022 Sergo Kamini Headings is a 88 year [...] Abs Lymph 1.00 - 4.00 k/uL 1.49 [place]% % 11.0 Abs [place] <0.87 k/uL 0.95 (H) Eosin% % 3.6 [...] Actinic keratosis (pr (more content not included)... [facility] 08-11-2023 Miscellaneous Notes Spoke to pt in regards to below message, verbalized understanding Sent for scanning Plan for Dr. Nuñez. Reviewed [facility] 12-day event monitor results. Minimum heart rate 43 bpm average 62 bpm Max 176 bpm 4 beats of SVT, he currently takes metoprolol ventricular ectopy less than 1% of the time supraventricular ectopy less than 1% of the time no evidence of atrial fibrillation Please notify patient Please have records scanned into epic Bonnie Ross APRN.LOCKER ROOM ATTENDANT Received fax from [employer] in [employer] for results for Holter Monitor worn from 04/25/2023-05/08/2023 LISA 06/23/2023 NOV 2024 On desk for review, will send for scanning after review Patient has been identified by name and date of : Yes Type of form: [facility] Holter Monitor Form received via: Fax Form has been forwarded to: ROLAND Smith documented in this encounter [facility] 08-08-2023 Instructions Vernell Martinez PA-C - 08/08/2023 10:15 AM EST Follow up with cardiology about heart monitor Continue plavix 75mg Follow up in 6 months documented in this encounter [facility] 08-08-2023 Note HNO ID: [id number] Author: Vernell Martinez PA-C Service: ? Author Type: Physician Soccer Ball Assembler Type: Progress Notes Filed: 08/08/2023 10:28 AM [...] did complete his heart monitor but his sheet cutter has not been able to find the [...] changes, speech/languag changes (more content not included)... [facility] 08-08-2023 History of Presen t illness [...] did complete his heart monitor but his sheet cutter has not been able to find the [...] (HCC) 02/25/2016 Stage 3a chronic kidney disease ([facility]) 02/10/2021 Stroke, Ischemic - Right [...] dysarthria; comprehension, naming, repetition intact. Short and skilled nursing memory intact. CN: PERRL, f EOMI and without nystagmus, VFF to confrontation (hesitated in the left lower visual izgauirre but was correct), facial sensation and strength [...] Right sided cerebral hemisphere cerebrovascular accident (CVA) ([facility]) - ICD9: 434.91, ICD10: I63.9 (primary diagnosis) [...] which included preparing to see the patient, gbjq-me-hwij patient care, completing clinical documentation, obtaining and/or [...] for this encounter documented in this encounter [facility] 08-08-2023 Note HNO ID: [id number] Author: Elkin Tapia LPN Service: ? Author [...] no data to display for this encounter [facility] 08-02-2023 Evaluation note Diagnosis Stage 3 chronic kidney disease, unspecified whether stage 3a or 3b CKD (HCC)- Primary documented in this encounter [facility]11-07-2023 NoteHNO ID: [id number] Author: India Woodson RN Service: ? Author Type: Registered Nurse Type: Progress Notes Filed: 08/01/2023 3:32 PM Note Text: [facility] Telephonic Outreach Provider Action/FYI Contacted for: Routine [...] daily weight at home? No Based on slip bridge operator, the following disposition is advised: No symptoms or symptoms present, not severe. Routed to: No Action Needed VILMA Education Provided this Outreach: Yes - CKD Denies needs at this time Reminded patient to call office of PCP with questions or concerns India Woodson RN August 01, 2023 3:30 [facility]11-07-2023 History of Present illness Narrative* India Woodson RN - 08/01/2023 8:47 AM EST [facility] Telephonic Outreach Provider Action/FYI Contacted for: Routine [...] daily weight at home? No Based on slip bridge operator, the following disposition is advised: No symptoms or symptoms present, not severe. Routed to: No Action Needed VILMA Education Provided this Outreach: Yes - CKD Denies needs at this time Reminded patient to call office of PCP with questions or concerns India Woodson RN August 01, 2023 3:30 PM [facility] NotePatient Outreach ([facility]) HEADINGS,SERGO Suárez ([id number]) 1935 M Date Time Provider Department 08/01/23 INDIA WOODSON During your visit today, we recorded the following information about you: India Woodson RN 08/01/2023 3:32 PM Signed CD Telephonic Outreach Provider Action/FYI Contacted for: Routine [...] daily weight at home? No Based on slip bridge operator, the following disposition is advised: No symptoms [...] unspecified whether stage 3a or 3b CKD (HCC) [N18.30] Order(s):PT ED NEPHROLOGY [[id number]] Order #: [id number]: 1 Prescriptions as of 08/01/2023 - amLODIPine [...] 06/23/2023 Encounter Status:Closed by INDIA WOODSON on 08/01/23[facility] 07-03-2023 History of Present illness Narrative* India Woodson, SESAR - 07/03/2023 11:27 AM EDT [facility] Telephonic Outreach Provider Action/FYI Contacted for: Routine [...] daily weight at home? No Based on slip bridge operator, the following disposition is advised: No symptoms or symptoms present, not severe. Routed to: No Action Needed VILMA Education Provided this Outreach: No Denies needs at this time Reminded patient to call office of PCP with questions or concerns India Woodson RN July 03, 2023 11:31 AM [facility] Miscellaneous Notes* Telephone Encounter - Rula Parks - 06/27/2023 11:36 AM EDT Phoned Luz Marina at [facility] cardiovascular and she will look into and this nurse will call her back at ext [phone]. Rula Parks LPN * Telephone Encounter - Rula Parks - 06/26/2023 4:13 PM EDT phoned [facility] medical records. They are unable to find results at this time regarding heart monitor results. They recommend calling back and speaking with cardiovascular dept Luz Marina Sargent ext [phone]. Rula Parks LPN * Telephone Encounter - Kevin Bhagat APRN.CNP - 06/26/2023 3:48 PM EDT Please call [facility] and ask how to get the heart monitor results that were ordered by Dr. Braden. We have been in the system and cannot find any results for this at all. Per patient, it wasmailed to him, he wore for 2 weeks, and then mailed back. Patient requesting results along with hiscardiologist so very important to get them. Thank you Kevin Bhagat APRN.CNP [facility] History of Present illness Narrative* Walter Nuñez MD - 06/23/2023 1:30 PM EDT Images from the original note were not included. [facility] [place] [facility] Department of Cardiovascular Medicine OUTPATIENT VISIT DATE 06/23/23 OUTPATIENT VISIT TYPE ESTABLISHED PRIMARY CARE PHYSICIAN: Kezia Dubose MD [id number] [facility] [id number] CHIEF COMPLAINT: Patient presents with: CARD Follow [...] of this year. He was admitted to [facility]. 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 There [...] to find the results. We will contact [facility] for the results of the monitor. He [...] - Exam was compared with the prior CC echocardiographic exam performed on 05/13/21. * * [...] monitor that was done at rehabilitation in [place]. Low cholesterol, low fat diet, Mediterranean type [...] of any further assistance. Walter Nuñez MD, [facility] Department of Cardiovascular Medicine [facility] [place] [facility] [address] [place] [address] Medical Decision Making: Problems: Moderate: 2+ stable chronic illnesses and New problem with uncertain prognosis Data: Unique test result(s) reviewed: 2 Risk: Moderate: Moderate risk from testing/treatment Medical Decision Making Level: 4 - Moderate [facility] Miscellaneous Notes* Telephone Encounter - Koki Bae [...] in the summer. can be reached at [phone] documented in [facility] History of Present illness Narrative* India Woodson RN - 06/02/2023 3:49 PM EDT [facility] Telephonic Outreach Provider Action/FYI Contacted for: Routine [...] daily weight at home? No Based on slip bridge operator, the following disposition is advised: No symptoms or symptoms present, not severe. Routed to: No Action Needed VILMA Education Provided this Outreach: No Denies needs at this time Reminded patient to call office of PCP with questions or concerns India Woodson RN June 02, 2023 3:52 PM documented in [facility] [place] Miscellaneous Notes* Telephone Encounter - Rula Parks [...] you. Rula Parks LPN documented [facility] History of Present illness Narrative* Kathy Huggins MD - 05/16/2023 10:29 AM EDT FUNCTIONAL MEDICINE FOLLOW-UP ASSESSMENT Patient: Sergo Suárez Headings 65.8 kg (145 lb) 172.7 cm (5' [...] Take 1 tablet by mouth w MEALS. m-xukyiqpgy-onuqycue root extract-aloe leaf extract (GLUTAGENICS) [id number] powder Mix one teaspoon (4.33 g) with [...] tablet by mouth once daily. CandiBactin AR (MetagenShadow Puppet) One softgel three times daily with meals CandiBactin BR (Metagenics) Two tablets three times daily Biocidin Advanced Formula (Netsket) Take 5 Drops by mouth three times [...] Sustained CVA in March - rehab in [place]. Now living in [place] with . Still working on strengthening with [...] (brought into office) - use of Black [place] and antiparasitic cleanse recommended by family member 2. Itching - noting long body - varying places - no rhyme or reason for location. Noting hot showers with some relief. Living in [place] from [place] then in [place]. Noting skin with rash along back at [...] Meals - Breakfast -Rice chex - fruit. [place] sausage - Lunch - Salad with - Dinner - Beets, squash, fish / beef , eggs (pastured raised) Snack Coconut ice cream Drink - Water with lemon - + daily - Camomile tea. - Limiting coffee - Some juice (Conway) - no soda. Bowel Habits: Varies. [place] Type 5 to 7 (diet shifting?) Supplement? 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 Following distant stint of rehabilitation he reports [...] With Charissa Food plan Functional Nutrition: per efficiency analyst (after Metabolomix performance to review)_ Review and implement diet factors recommended through nutritional visit - use your health college basketball coach fordiscussion on how to implement Sleep: [...] We recommend ordering supplementation online from the [facility] as they are high quality therapeutic supplements. [facility] offers an easy to use, convenient way to order supplementation recommended by your provider through the [facility]. All of the products offered are considered high-quality, and adhere to specific criteria for quality and effectiveness including good manufacturing practices, use of clean products, free of fillers, binders, and other antigens. In addition, we follow third alliance party analysis for independent verification of active ingredients. Get started by following three easy steps: A. Visit the following webpage: https://[email or web address].Q2ebanking/ [facility] Statements on this site have not [...] For issues with your MRN please call [phone] Stress Management Advisity Neuro -new technology to use a wearable device to retrain brain and focus on nervous system reduction. To learn more of this technology by going to (xoj-yso-dqedt) https://Anna[employer]Rita Sl[employer]/ Please look into this Heart Rate Variability [...] one of the Heart Math booklets off Solutionary thatfits your 'go to' emotion - Transforming [...] fully) . --- Polyvagal theory (Richard Walker) https://www.stepmanuelLoudClick.com/ --- Dynamic Neural Retraining System - (Karlene Muñoz) https://retrainingthebrain.com/karlene-evon/ --- Fournier Program - (Drew Fournier) Https://www.sergioptaPS Biotech.Acacia/ Finding time for self (no multitasking) at this time to dedicate to breathing / relaxation process.Work on cultivating kevin! Future Plans (for provider use): I spent a total of 25 minutes on the date of the service which included preparing to see the patient, sxik-np-ydwr patient care, completing clinical documentation, obtaining and/or reviewing separately obtained history, counseling and educating the patient/family/caregiver, communicating with other HCPs (not separately reported), and independently interpreting results (not separately reported). Kathy Huggins MD documented in this encounterHolzer [facility]08-21-2023 Miscellaneous Notes* Telephone Encounter - Rula Rain LPN - 05/15/2023 8:43 AM EDT Patient has [...] at bedtime. Please review and advise. Kaylin Ortiz documented in this encounterHolzer Medical Center – [facility]08-12-2023 Miscellaneous Notes* Telephone Encounter - Lucila Mathis MA - 05/06/2023 8:59 AM EDT Spoke with patient , notified of results as listed below, verbalized understanding of instructions given and will have patient keep appt with Kevin Olayinka in June. Lucila Mathis MA * Telephone Encounter - Kirstie Anguiano APRN.PENNIE - 05/06/2023 8:43 AM EDT Please reach out and inform patient that his lab results have returned. They are in line with what he has had in past. Sodium is normal. Please follow up with PCP. documented in this encounterHolzer Medical Center – [facility]08-11-2023 History of Present illness Narrative* India Woodson [...] daily weight at home? No Based on slip bridge operator, the following disposition is advised: No symptoms or symptoms present, not severe. Routed to: No Action Needed VILMA Education Provided this Outreach: No Denies needs at this time Reminded patient to call office of PCP with questions or concerns India Woodson RN May 05, 2023 2:47 PM documented in this encounterHolzer Medical Center – [facility]08-11-2023 Miscellaneous Notes* Telephone Encounter - Danuta Parry [...] - 05/05/2023 9:09 AM EDT Peg with [facility] calling to clarify a Home Health correction. [facility] had incorrect provider listed for patient. This has been corrected and Peg calling to clarify and confirm that Fredis Patel follow patient for home health orders? Please call Peg with reply at [phone]. Thank you. documented in this encounterHolzer Medical Center – [facility]08-11-2023 Miscellaneous Notes* Telephone Encounter - Sunshine Kim LPN - 05/05/2023 9:06 AM EDT Patient Betsey returned call and went over notes below with understanding. was asking about his Magnesium rx, has no more refills on rx. He had been taking it in the rehab. Pending rx needs completed. Patient uses [facility] for his pharmacy. Please advise * Telephone Encounter - Danuta Parry Ma - 05/04/2023 1:13 PM EDT Left message for return call. * Telephone Encounter - Krystni Ortiz PA-C - 05/04/2023 12:48 PM EDT Please contact patient and advise him that I am ordering a repeat BMP to recheck his sodium levels.He can have this done at his convenience. Krystin Ortiz PA-C. 05/04/2023 documented in this encounterHolzer Medical Center – [facility]08-10-2023 History of Present illness Narrative* India Woodson RN - 05/04/2023 10:31 AM EDT CD Telephonic Outreach Provider Action/FYI Left message on mobile phone Contacted for: Routine Telephonic Outreach Contact made with patient: No, left message. Hello Sergo! It's India Woodson, a Registered Nurse Hair Salon Manager at [facility]. I work with your doctor, Kezia Johansen MD. I am calling today for a check in and I am sorry I missed you. If you have a question or concern, please reach out to your PCP, Kezia Dubose MD. I will reach out again tomorrow. I hope you are having a great day. India Woodson RN May 04, 2023 3:44 PM [facility] Telephonic Outreach Provider Action/FYI Left message on home phone Contacted for: Routine Telephonic Outreach Contact made with patient: No, left message. Hello Sergo! It's India Woodson, a Registered Nurse Hair Salon Manager at [facility]. I work with your doctor, Kezia Johansen [...] 04, 2023 3:41 PM documented in this encounterHolzer Medical Center – [facility]08-09-2023 Instructions* Patient Instructions* Vernell Martinez PA-C - [...] and <40 for men documented in this encounterHolzer Medical Center – [facility]08-09-2023 History of Present illness Narrative* Vernell Martinez PA-C - 05/03/2023 9:25 AM EDT Images from the original note were not included. Neurology Outpatient Clinic Date: May 03, 2023 Patient Name: Sergo Rosas Referring physician: No referring provider defined for this encounter. Primary physician: Kezia Dubose [address] [place] [address] Reason for Evaluation: Stroke/TIA Subjective HPI Sergo Rosas is a 88 year old right-handed male with history of CVA, HLD, AAA, PVD, HTN, CKD stage 3 who presents for evaluation of stroke follow up. Kezia Johansen MD is the PCP. Chart review: Hospital follow up for stroke on 04/01/23 and was admitted at [facility] until 04/06/23. 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 Patient needs a refill today. He is currently on Lipitor 40 mg once daily.He is also taking Norvasc and Amlodipine. Being sent gallery or museum technician to rule out arrhythmia. MRI on04/03/23 showing [...] that he was in physical therapy at [facility] for a total of 13 days [...] CT of the head was normal at [facility], records not available. Believes that he threw [...] mL INTRAVENOUS DIRECTED PRN Walter Nuñez MD ROS ROS: His ROS was positive [...] Normal, no fasciculations or tremors noted. Power: Supervisor Cytology strength 4+ on the left hand MUSCLES Upper Extremity RIGHT LEFT Deltoid 5/5 5/5 Biceps 5/5 5/5 Triceps 5/5 5/5 Wrist Extension 5/5 5/5 Wrist Flexion 5/5 5/5 Finger Abd 5/5 5/5 Finger Add 5/5 5/5 MUSCLES Lower Extremity RIGHT LEFT Hip Flexion 5/5 5/5 Hip Extension 5/5 5/5 BiFem (Knee Flex) 5/5 5/5 Quads (Knee Ext) 5/5 5/5 Gastroc (Plantflx) 5/5 5/5 TibAnt (Dorsiflx) 5/5 5/5 FlxHLong (Toe Flex) 5/5 5/5 ExtHLong (Toe Ext) 5/5 5/5 Sensory Examination Sensation is intact to [...] which included preparing to see the patient, cxar-cd-xgtw patient care, completing clinical documentation, obtaining and/or reviewing separately obtained history, performing a medically appropriate examination, counseling and educating the pat ient/family/caregiver, and ordering medications, tests, or procedures. Vernell Martinez PA-C [facility] This document has been created with the use of voice recognition technology. It may contain inaccuracies: (e.g. misspellings, inaccurate syntax or word sense) that have escaped review. documented in this encounterHolzer Medical Center – [facility]08-08-2023 Miscellaneous Notes* Telephone Encounter - Marcelino Cadena RN - 05/02/2023 9:17 AM EDT Attempted to fax current med list to [employer], per Francia Smith nurse case worker, request, nelly fax number, , did not work and sounded like a phone number. Left vm for Francia to let her know the fax number did not work. documented in this encounterHolzer Medical Center – [facility]08-02-2023 Telephone encounter Note * Telephone Encounter - An Herrera - 04/26/2023 1:29 PM EDT Called patient and scheduled a sooner jason. With Michelle, stated that the patient was able to get in with ophthalmology on 04/24 [facility]-02-[facility]23 Miscellaneous Notes* Telephone Encounter - An Herrera [...] Krystin Ortiz PA-C 04/26/2023 documented in this encounterHolzer Medical Center – [facility]08-02-2023 Telephone encounter Note * Telephone Encounter - Krystin Ortiz PA-C - 04/26/2023 9:00 AM EDT Please help patient facilitate a sooner appointment with neurology. I see where it was possible to Vernell Martinez for a sooner appointment. Also, please check with patient that he was able to see opthalmology. Thank you, Krystin Ortiz PA-C 04/26/2023 [facility]-01-[facility]23 Miscellaneous Notes* Telephone Encounter - Lesa Ordonez - 04/25/2023 11:51 AM EDT The patient is scheduled with the provider on 06/09/23. * Telephone Encounter - Luz Pérez OCCA - 04/20/2023 12:28 PM EDT Fax received at Dr. Osman's [place] office from [facility]. Patient is being referred to Dr. Osman as a NEW patient for stroke for which he was seen at [facility] ER. Discharge Summary and Consultations in patients chart under scanned documents. Of note, Dr. Osman is scheduled out several months and Vernell Martinez, has sooner appointments available. This staff will route TE to Lesa Roper, PSS d/t referral. KYM Gan documented in this encounterHolzer Medical Center – [facility]08-01-2023 Miscellaneous Notes* Telephone Encounter - Jolene Mcintosh APRN.CNP - 04/25/2023 9:48 AM EDT noted * Telephone Encounter - Kaylin Ko RN - 04/25/2023 8:25 AM EDT Sydney from Speech Therapy at [facility] reports that she completed the pt's speech therapy evaluation and no speech therapy is needed at this time. documented in this encounterHolzer Medical Center – [facility]07-27-2023 Miscellaneous Notes* Telephone Encounter - Barak Brooks APRN.CNS - 04/20/2023 12:56 PM EDT [facility] * Telephone Encounter - Marcelino Cadena RN - 04/20/2023 12:05 PM EDT India from [facility] PT reporting PT POC. Will see pt 1 time per week for 1 week and then 2 times per week for 3 weeks for strength, gait, transfers, and balance. documented in this encounterHolzer Medical Center – [facility]07-26-2023 Miscellaneous Notes* Telephone Encounter - Kaylin Ko RN - 04/19/2023 1:50 PM EDT Gege at [facility] notified. Kaylin Ko RN * Telephone Encounter - Kingsley Bowling MD - 04/19/2023 1:37 PM EDT Critical access hospital POC. PCP team will follow. * Telephone Encounter - Kaylin Ko RN - 04/19/2023 9:07 AM EDT Gege with [facility] calling and states patient will be discharging from [facility] today. Diagnosis are stroke and rib fractures from possible fall. Patient has orders for PT, OT and Speech and Gege asking if provider willing to follow patient for orders? Gege requesting response today, if possible. Pt's PCP team out of office today-will send message to Dr. Bowling who is covering today. Please call Gege at [phone]. Thank you. documented in this encounterHolzer Medical Center – [facility]07-14-2023 History of Present illness Narrative* Pepper Chavez [...] 10, 2023 3:25 PM documented in this encounterHolzer Medical Center – [facility]07-13-2023 NoteHNO ID: [id number] Author: Jen Loera RN Service: Nursing Author Type: Registered Nurse Type: Nursing Progress Note Filed: 04/06/2023 6:21 PM Note Text: Report called to nurse Gonsalez at rehab facility.[facility]07-13-2023 NoteHNO ID: [id number] Author: Pb Carmichael RN Service: Care Management Author Type: Registered Nurse Type: Care Mgt Progress Note Filed: 04/06/2023 2:47 PM Note Text: CARE MANAGEMENT DISCHARGE NOTE SERVICE DATE: April 06, 2023 SERVICE TIME: 1:26 PM Admission Date: 04/01/2023 LOS: 2 days Discharge Arrangement Services Arranged [facility] Assessment Transportation Arrangements Transportation Arrangements: Car Date of Trip: 04/06/23 Time of Trip: 1700 [facility] Handoff Communication: Floor nurse to call N2N [phone] Additional Information: Plan for discharge today. Family will transport. His , son, and daughter are here. No other needs. Case closed. Discharge Information Row Name ED to Hosp-Admission (Current) from 04/01/2023 in MR 9M TCU/MED Rehab Facility Agency [facility] Acute Rehab [phone] SIGNATURE: Pb Carmichael RN PATIENT NAME: Sergo Suárez Headings DATE: April 06, 2023 TIME: 1:26 PM CONTACT #: [phone] [facility]07-13-2023 NoteHNO ID: [id number] Author: Pb Carmichael RN Service: Care Management Author Type: Registered Nurse Type: Care Mgt Progress Note Filed: 04/06/2023 9:31 AM Note Text: CARE MANAGEMENT PROGRESS NOTE SERVICE DATE: 04/06/2023 SERVICE TIME: 9:31 AM LOS: 2 days IMM Follow Up Copy Given: Yes (Given 04/06/23 at 07:30 am) Copy given to:: Patient Database Report Writer Database Report Writer Name/Relationship: , Betsey Method: In Person SIGNATURE: Pb Carmichael RN PATIENT NAME: Sergo Suárez Headings DATE: April 06, 2023 TIME: 9:31 AM PAGER/CONTACT #: [phone] State Hospital07-13-2023 Note HNO ID: [id number] Author: Gunnar Garcia Service: Care Management Author Type: ? Type: Care Mgt Progress Note Filed: 04/06/2023 7:35 AM Note Text: [facility] ([facility]) PRECERT NOTE [employer] MEDICARE PPO approved Inpatient Rehab Facility for [facility] - SNF AND Acute Rehab [place]. Precert approved through 04/09/2023. SIGNATURE: Gunnar Garcia DATE: April 06, 2023 TIME: 7:35 AMOregon [facility] Hospital07-12-2023 NoteHNO ID: [id number] Author: Pb Carmichael RN Service: Care Management [...] daughter in the room. The FOC is [facility], precert was started via [facility]. He was ordered a CT scan of the brain for some possible neuro changes. Will continue to follow. SIGNATURE: Pb Carmichael RN PATIENT NAME: Sergo Suárez Headings DATE: April 05, 2023 TIME: 12:02 PM PAGER/CONTACT #: [phone] [facility]07-12-2023 Note HNO ID: [id number] Author: Christine Barragan DO Service: Hospital Medicine [...] monitor to be ordered by his primary sheet cutter for continuity of care and no driving [...] (aspirin non-enteric coated 81mg ORAL OR 300mg IN) 81 mg PO/FT DAILY Given, 04/04 85004/01/232154 -- 04/01/23 2200 clopidogrel 75 mg tab(s) (PLAVIX) 75 mg PO/FT DAILY Given, 04/04 0850 04/01/23 215 -- 04/02/23 1800 activity - mobilize patient (ma,ia) VTE Prophylaxis: VTE prophylaxis appropriate SIGNATURE: Christine Barragan DO PATIENT NAME: Sergo Suárez Headings DATE: April 05, 2023 TIME: 11:11 [facility]07-11-2023 NoteHNO ID: [id number] Author: Walter Chávez MD Service: ? Author [...] patient's clinician at the time of interpretation. Aviation Electronics Technician: TIANA Transcribe Date/Time: Apr 04 2023 7:50A [...] 4.00 k/uL Monocytes % 15.9 % Abs [place] 1.07 (H) <0.87 k/uL Eosinophils % 4.4 [...] Time: 04/04/23 9:51 AM Narrative Ernie Alexis APRN.PENNIE 04/04/2023 11:16 AM Trauma Consult (more content not included)...[facility]07-11-2023 Note HNO ID: [id number] Author: Belkis Oakes APRN.PENNIE Service: Neurology Stroke Author Type: Nurse Practitioner Type: Progress Notes Filed: 04/04/2023 3:59 PM Note Text: Golf Ball Cover Treater Note SERVICE DATE: 04/04/2023 SERVICE TIME: 3:43 PM PCP: Kezia Dubose MD REASON FOR STROKE EVALUATION: left arm weakness Subjective HPI: Note from Michel Knapp LOCKER ROOM ATTENDANT reviewed. In summary, patient presented with acute [...] has a previous h/o syncope and sees sheet cutter Dr. Nuñez. PAST MEDICAL HISTORY Diagnosis Date [...] twice daily., Disp: 180 tablet, Rfl: 3 x-xzkpsxjxh-cjnipwbe root extract-aloe leaf extract (GLUTAGENICS) [id number] powder, Mix one teaspoon (4.33 g) with [...] Take 1 capsule by mouth once daily. [employer]IO[employer] Systems, Disp: , Rfl: SprectraZyme Mcqueen 9x ES, [...] (ROBAXIN) 500 mg ORAL BID Ernie Alexis APRN.LOCKER ROOM ATTENDANT 500 mg at 04/04/23 114 gabapentin 300 mg cap(s) (NEURONTIN) 300 mg ORAL DAILY Ernie Alexis APRN.LOCKER ROOM ATTENDANT 300 mg at 04/04/23 1142 lidocaine 4 % 1 Patch (SALONPAS) 1 Patch TRANSDERMAL DAILY Ernie Alexis APRN.LOCKER ROOM ATTENDANT 1 Patch at 04/04/23 1142 acetaminophen 500 m (more content not included)...[facility]07-11-2023 History of Past illness Narrative* Problem Noted Date Diagnosed Date Resolved Date Traumatic pneumothorax 04/04/202304/06 Right shoulder pain 09/08/2013 09/18/20 14 documented as of this encounter (statuses as of 04/11/2023) [facility] History of Past illness Narrative* Problem Noted Date Diagnosed Date Resolved Date Traumatic pneumothorax 04/04/202304/06 Right shoulder pain 09/08/2013 09/18/20 14 documented as of this encounter (statuses as of 04/19/2023) [facility] History of Past illness Narrative* Problem Noted Date Diagnosed Date Resolved Date Traumatic pneumothorax 04/04/202304/06 Right shoulder pain 09/08/2013 09/18/20 14 documented as of this encounter (statuses as of 04/20/2023) [facility] History of Past illness Narrative* Problem Noted Date Diagnosed Date Resolved Date Traumatic pneumothorax 04/04/202304/06 Right shoulder pain 09/08/2013 09/18/20 14 documented as of this encounter (statuses as of 04/25/2023) [facility] History of Past illness Narrative* Problem Noted Date Diagnosed Date Resolved Date Traumatic pneumothorax 04/04/202304/06 Right shoulder pain 09/08/2013 09/18/20 14 documented as of this encounter (statuses as of 04/25/2023) [facility] History of Past illness Narrative* Problem Noted Date Diagnosed Date Resolved Date Traumatic pneumothorax 04/04/202304/06 Right shoulder pain 09/08/2013 09/18/20 14 documented as of this encounter (statuses as of 05/03/2023) [facility] History of Past illness Narrative* Problem Noted Date Diagnosed Date Resolved Date Traumatic pneumothorax 04/04/202304/06 Right shoulder pain 09/08/2013 09/18/20 14 documented as of this encounter (statuses as of 05/05/2023) [facility] History of Past illness Narrative* Problem Noted Date Diagnosed Date Resolved Date Traumatic pneumothorax 04/04/202304/06 Right shoulder pain 09/08/2013 09/18/20 14 documented as of this encounter (statuses as of 05/06/2023) [facility] History of Past illness Narrative* Problem Noted Date Diagnosed Date Resolved Date Traumatic pneumothorax 04/04/202304/06 Right shoulder pain 09/08/2013 09/18/20 14 documented as of this encounter (statuses as of 05/09/2023) [facility] History of Past illness Narrative* Problem Noted Date Diagnosed Date Resolved Date Traumatic pneumothorax 04/04/202304/06 Right shoulder pain 09/08/2013 09/18/20 14 documented as of this encounter (statuses as of 05/12/2023) [facility] History of Past illness Narrative* Problem Noted Date Diagnosed Date Resolved Date Traumatic pneumothorax 04/04/202304/06 Right shoulder pain 09/08/2013 09/18/20 14 documented as of this encounter (statuses as of 05/15/2023) [facility] History of Past illness Narrative* Problem Noted Date Diagnosed Date Resolved Date Traumatic pneumothorax 04/04/202304/06 Right shoulder pain 09/08/2013 09/18/20 14 documented as of this encounter (statuses as of 05/16/2023) [facility] History of Past illness Narrative* Problem Noted Date Diagnosed Date Resolved Date Traumatic pneumothorax 04/04/202304/06 Right shoulder pain 09/08/2013 09/18/20 14 documented as of this encounter (statuses as of 05/31/2023) [facility] History of Past illness Narrative* Problem Noted Date Diagnosed Date Resolved Date Traumatic pneumothorax 04/04/202304/06 Right shoulder pain 09/08/2013 09/18/20 14 documented as of this encounter (statuses as of 06/03/2023) [facility] History of Past illness Narrative* Problem Noted Date Diagnosed Date Resolved Date Traumatic pneumothorax 04/04/202304/06 Right shoulder pain 09/08/2013 09/18/20 14 documented as of this encounter (statuses as of 06/23/2023) [facility] History of Past illness Narrative* Problem Noted Date Diagnosed Date Resolved Date Traumatic pneumothorax 04/04/202304/06 Right shoulder pain 09/08/2013 09/18/20 14 documented as of this encounter (statuses as of 06/24/2023) [facility] History of Past illness Narrative* Problem Noted Date Diagnosed Date Resolved Date Traumatic pneumothorax 04/04/202304/06 Right shoulder pain 09/08/2013 09/18/20 14 documented as of this encounter (statuses as of 07/03/2023) [facility] History of Past illness Narrative* Problem Noted Date Diagnosed Date Resolved Date Traumatic pneumothorax 04/04/202304/06 Right shoulder pain 09/08/2013 09/18/20 14 documented as of this encounter (statuses as of 08/02/2023) [facility] History of Past illness Narrative* Problem Noted Date Diagnosed Date Resolved Date Traumatic pneumothorax 04/04/202304/06 Right shoulder pain 09/08/2013 09/18/20 14 documented as of this encounter (statuses as of 08/08/2023) [facility] History of Past illness Narrative* Problem Noted Date Diagnosed Date Resolved Date Traumatic pneumothorax 04/04/202304/06 Right shoulder pain 09/08/2013 09/18/20 14 documented as of this encounter (statuses as of 08/11/2023) [facility] History of Past illness Narrative* Problem Noted Date Diagnosed Date Resolved Date Traumatic pneumothorax 04/04/202304/06 Right shoulder pain 09/08/2013 09/18/20 14 documented as of this encounter (statuses as of 09/09/2023) [address]11-2023 History of Past illness Narrative* Problem Noted Date Diagnosed Date Resolved Date Traumatic pneumothorax 04/04/202304/06 Right shoulder pain 09/08/2013 09/18/20 14 documented as of this encounter (statuses as of 11/07/2023) [facility]07-11-2023 History of Past illness Narrative* Problem Noted Date Diagnosed Date Resolved Date Traumatic pneumothorax 04/04/202304/06 Right shoulder pain 09/08/2013 09/18/20 14 documented as of this encounter (statuses as of 11/14/2023) [facility]-11-2023 History of Past illness Narrative* Problem Noted Date Diagnosed Date Resolved Date Traumatic pneumothorax 04/04/202304/06 Right shoulder pain 09/08/2013 09/18/20 14 documented as of this encounter (statuses as of 11/15/2023) [facility]-11-2023 History of Past illness Narrative* Problem Noted Date Diagnosed Date Resolved Date Traumatic pneumothorax 04/04/202304/06 Right shoulder pain 09/08/2013 09/18/20 14 documented as of this encounter (statuses as of 11/16/2023) [facility]-11-2023 History of Past illness Narrative* Problem Noted Date Diagnosed Date Resolved Date Traumatic pneumothorax 04/04/202304/06 Right shoulder pain 09/08/2013 09/18/20 14 documented as of this encounter (statuses as of 12/26/2023) [facility]07-10-2023 NoteHNO ID: [id number] Author: Walter Chávez MD Service: ? Author [...] 1:11 PM Narrative Echocardiography Report: Transthoracic Echo [facility] Date of service: 04/03/2023 1:11:15 PM Ordering physician: KOKI KNAPP Indication: Stroke Technologist: Senait Thomason [facility] Interpreting physician: Carley Givens MD PATIENT: Name: [...] There is mild m (more content not included)...[facility]07-10-2023 NoteHNO ID: [id number] Author: IDALIA Jenkins) Service: Radiology Author Type: Technologist Type: Progress [...] Exam(s) Completed: Head: Routine Brain SIGNATURE: RT Christopher(R) PATIENT NAME: Sergo Suárez Headings DATE: April 03, 2023 TIME: 4:08 [facility] NoteHNO ID: [id number] Author: Pb Carmichael RN Service: Care Management Author Type: Registered Nurse Type: Care Mgt Initial Assessment Filed: 04/03/2023 10:03 AM Note Text: CARE MANAGEMENT: ASSESSMENT AND DISCHARGE PLAN SERVICE DATE: April 03, 2023 SERVICE TIME: 10:02 AM PCP: Kezia Dubose MD saw 2 months ago Primary Contact: Extended Emergency Contact Information Primary Emergency Contact: Betsey Rosas Address: [address] [place] Relation: Spouse Secondary Emergency Contact: Kesha Ayoub Address: [address] Mobile Relation: Daughter Admission Status: Observation Insurance Provider: [employer] MEDICARE PPO Discharge Planning requested by: Patient Potential Transition Plans No Services Indicated;Home Advance Directives Current Advance Directive: Health Care Power of Facing Baster Jumpbasting;Living Will In Chart: Yes Up To Date [...] Be able to go home, General wellness [place] of Choice Explained: Are you interested in [...] 03, 2023 TIME: 10:01 AM CONTACT #: [phone] NoteHNO ID: [id number] Author: Tamara Guillen RN Service: Nursing Author Type: Registered Nurse Type: Progress Notes Filed: 04/03/2023 1:06 AM Note Text: Upon pts 2300 neuro assessment, his hand grasp were unequal. Left hand grasp being slightly weaker. However, pt stated that his dexterity was weaker in his left than his right but weakness hasn't increase since his admission and since pts fall.[facility]07-09-2023 NoteHNO ID: [id number] Author: Kaylin Hamilton RN Service: Nursing Author Type: Registered Nurse Type: Nursing Progress Note Filed: 04/02/2023 6:32 PM Note Text: Patients spouse called and updated on patients condition.[facility] 04-02-2023 NoteHNO ID: [id number] Author: Walter Chávez MD Service: ? Author [...] DATE OF EXAM: Apr 01 2023 7:31PM [facility] 0022 - CTA HEAD W IVCON / [...] identified. Major dural venous sinuses are patent. Financial Dealers (topogram) images: Noncontributory. Impression IMPRESSION: No large vessel occlusion or high-grade stenosis. Arterial blood flow was measured to detect acute large vessel occlusion by computer aided detection software: Not Performed. Concordance between software and imaging review: Not Applicable. Aviation Electronics Technician: TIANA Transcribe Date/Time: Apr 01 2023 7:34P Dictated by : ARIN SHI MD This examination was interpreted and the rep (more content not included)...[facility]05-09-2023 History of Present illness Narrative* Kathy [...] Take 1 tablet by mouth w MEALS. g-yokqdorlu-muxlncia root extract-aloe leaf extract (GLUTAGENICS) [id number] powder Mix one teaspoon (4.33 g) with [...] tablet by mouth once daily. CandiBactin AR (MetagenShadow Puppet) One softgel three times daily with meals CandiBactin BR (Metagenics) Two tablets three times daily Biocidin Advanced Formula (Netsket) Take 5 Drops by mouth three times [...] (brought into office) - use of Black [place] and antiparasitic cleanse recommended by family member 2. Itching - noting long body - varying places - no rhyme or reason for location. Noting hot showers with some relief. Living in [place] then in [place]. Noting skin with rash along back at [...] Meals - Breakfast -Rice chex - fruit. Salem sausage - Lunch - Salad with - Dinner - Beets, squash, fish / beef , eggs (pastured raised) Snack Coconut ice cream Drink - Water with lemon - + daily - Camomile tea. - Limiting coffee - Some juice (Conway) - no soda. Bowel Habits: Varies. [place] Type 5 to 7 (diet shifting?) Supplement? 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 Did review home requirement of blood [...] 6 weeks following completion. Functional Nutrition: per efficiency analyst (after Metabolomix performance to review)_ Review and implement diet factors recommended through nutritional visit - use your health college basketball coach fordiscussion on how to implement Sleep: [...] We recommend ordering supplementation online from the [facility] Healthy Living Shop as they are high quality therapeutic supplements. [facility] offers an easy to use, convenient way to order supplementation recommended by your provider through the Healthy Living Shop. All of the products offered are considered high-quality, and adhere to specific criteria for quality and effectiveness including good manufacturing practices, use of clean products, free of fillers, binders, and other antigens. In addition, we follow third alliance party analysis for independent verification of active ingredients. Get started by following three easy steps: A. Visit the following webpage: [email or web address] [employer] Statements on this site have not been [...] For issues with your MRN please call [phone] Stress Management Advisity Neuro -new technology to use a wearable device to retrain brain and focus on nervous system reduction. To learn more of this technology by going to (aur-dag-alakh) https://Anna-Rita Sloss Enterprises/ Please look into this Heart Rate Variability [...] one of the Heart Math booklets off Solutionary thatfits your 'go to' emotion - Transforming [...] fully) . --- Polyvagal theory (Richard Walker) https://[email or web address]/ --- Dynamic Neural Retraining System - (Karlene Muñoz) [email or web address]/ --- Fournier Program - (Drew Fournier) Https://www.MediaLABptaPS Biotech.Acacia/ Finding time for self (no multitasking) at this time to dedicate to breathing / relaxation process.Work on cultivating kevin! Future Plans (for provider use): GI Effects (Fall 2022?) I spent a total of 41 minutes on the date of the service which included preparing to see the patient, dcek-cn-tnqb patient care, completing clinical documentation, obtaining and/or reviewing separately obtained history, counseling and educating the patient/family/caregiver, communicating with other HCPs (not separately reported), and independently interpreting results (not separately reported). Kathy Huggins MD documented in this encounterHol[facility] History of Present illness Narrative* Kezia Dubose MD - 01/30/2023 2:40 PM EDT Reason for Visit Patient presents with: Follow Up: refill needed Sergo E Headings is a 88 year [...] (Metagenics) CandiBactin BR (Metagenics) Biocidin Advanced Formula (BioBotanical Research) d-jhopabfqv-wlposrrq root extract-aloe leaf extract (GLUTAGENICS) [id number] powder Atrantil hydrOXYzine HCl (ATARAX) 25 mg [...] control. Kezia Dubose MD documented in this encounterHolzer Medical Center [facility]03-10-2023 Miscellaneous Notes* Telephone Encounter - Peg Patel RN - 12/02/2022 3:19 PM EST Reason for call: Mrs Rosas called and she would like to schedule an appointment for Sergo with Jolene. Last seen 02/14/22. Please schedule apts same day as her (Betsey Rosas 06/07/1940). Contact Name: Betsey Rosas Home and cell number: [phone] Diagnosis: Peg Arce documented in this encounterHolzer Medical Center [facility]01-19-2023 History of Present illness Narrative* Jesenia Aquino, [facility] - 10/13/2022 2:16 PM EST [facility] received prescription(s) for Xifaxan from Dr. Huggins's office. Benefits investigation was conducted, indicating that NO prior authorization is required by pt's planwith ConsumerBell. Copay is $421.92. [facility] Specialty pharmacy is not able to ship to [place]. Please send prescription to patient's pharmacy of choice locally. ALLERGIES Allergen Reactions Gluten Diarrhea Upset stomach Gas build up Jesenia Aquino RPh Clinical Pharmacist, Hepatology & HCV [facility] P: ; F: Pool: P CC SPEC GROUP 2 ([id number]) documented in this encounterHolzer Medical Center [facility]11-18-2022 Miscellaneous Notes* Telephone Encounter - Tamia Kirkland MA - 08/12/2022 8:53 AM EST Check Covermymeds Approvedtoday CaseId:[id number];Status:Approved;Review Type:Prior Auth;Coverage Start Date:07/13/2022;Coverage End Date:08/12/2023; * Telephone Encounter - Nita Chan RN - 08/12/2022 7:59 AM EST PA initiated Hydroxyzine 25 mg Anton: [id number] Nita Chan RN documented in this encounterHolzer Medical Center [facility]11-15-2022 Instructions* Patient Instructions* Laura Claros RD - 08/09/2022 12:37 PM EST Images from the original note were not included. [place] [facility] FOLLOW UP NUTRITION INSTRUCTIONS We recommend scheduling your Follow-up appointment at the end of your initial appointment. Nutrition Follow-up: In 4-6 weeks with Functional Medicine Registered Dietitian (Alejandra Sanchez Sarah or Katerin) Preparation for Follow-up: Complete a 3 day food record using the Diet, Nutrition and Lifestyle Journal from the [employer] Nutrition Portal If follow-up is virtual: scan into Prom[employer] or send to before joining your appointment If follow-up is in person: bring to your appointment Your Prescribed Nutrition Plan: CORE + Grain Free Plan from the start. Access the Functional Nutrition Portal in MyLearning to access your food plan comprehensive guide, weekly recipe automatic data processing planner, and food list. Shop for foods [...] 1. Plan from the start. Access the [employer] Nutrition Portal in inkSIG [facility] to access your food plan comprehensive guide, weekly recipe automatic data processing planner, and food list. Shop for foods [...] the best hydration options. How to Access Telepath Your Food Plan Resources: Accessing on Telepath To access Telepath, please visit: [email or web address] to create a new account. Step 1: Create Your Account: Complete the following izaguirre: username, password, email address, first name & last name. Click 'Create My New Account'. A message will display. Click continue. Step 2: Verify Your Account: Check your email for an email from Telepath. In the email, click thelink provided to launch Telepath and complete registration. Step 3: Enroll in the 'Functional Nutrition Portal'. Once you have launched Telepath, hover over the Find Learning tab, and [...] Step 5: To login after enrollment, visit [email or web address]. Login under 'Non-Employee Login' using the username and password from step #1. Step 6: If you receive an error message that you already have an account, please click 'forgotten your username of password?' to reset your password. Need Help? If you have difficulty accessing this course, please email . ADDITIONAL INSTRUCTIONS: How to Contact Your Functional Medicine Team (Open M-F 8am-5pm): 1. MyChart is the BEST form of communication to reach the Functional Medicine Team, see test results and request refills. Please allow 72 business hours for a response. Directions for signing up are included in your New Patient Folder. (Or you can go to [email or web address]) 2. For nutrition related questions or concerns, Unowhyt message your physician and include Attn: Laura Claros RD at the top of the message. Prometheus Energy messaging is meant to support implementation of [...] Supplements: Supplements can be ordered from the [facility]'s Online Store: [email or web address] New patients to the Healthy Living Shop will need to enter the provider code FUNCTIONAL to registertheir account. documented in this encounterHolzer Medical Center – [facility]11-15-2022 History of Present illness Narrative* [facility]09/[facility] 12:21 PM EST GROUP [facility] DIRECTOR COHORT Patient was part of an in-person, group health college basketball coach session. Patient received education and participated in discussion about modifiable lifestyle factors and healthy habits, with emphasis on the role of the health college basketball coach within the functional medicine model and the Wheel of Wellness. Other topics of discussion included Functional Medicine process and scheduling for follow-up visitsand support prior to next visit. ................................................................................ ....................... FOLLOW UP: Additional support needed: 30-Minute Consultation with Health Advocacy Director in 2-3 weeks Time Spent with Patient: 30 minutes Signed by: Maylin Mcpherson documented in this encounterHolzer Medical Center – [facility]11-15-2022 Instructions* Patient Instructions* Maylin Vida, [facility] ED - 08/09/2022 12:21 PM EST Images from the original note were not included. [facility] FUNCTIONAL MEDICINE HEALTH MEDICAL CENTER DIRECTOR FOLLOW-UP At the [facility] Functional Medicine, we focus on the person as a whole: Mind, Body, and Spirit. Working with your Health Advocacy Director on a regular basis can help you [...] steps for implementing lifestyle changes. Staff Health Advocacy Director Follow-Up Timeframe: Within 1-2 Weeks with Functional Medicine Health Advocacy Director (Bessie Carlisle or Barbra) Schedule your initial 1:1 health coaching appointment and/or Mindfulness group coaching session For 1:1 appointments: schedule by calling the appointment center ([phone] option #1) or through Prometheus Energy self-scheduling For Mindfulness group coaching: register at [email or web address] 2. Sign up for the Healthy Living Shop to order your supplements 3. Create a Telepath account to access the Functional Health Coaching Portal Review the Wheel of Wellness self-assessment tool in preparation for your first 1:1 appointment How to Access the Functional Health Coaching Portal: To access Telepath, please visit: [email or web address] to create a new account. Step 1: Create Your Account: Complete the following izaguirre: username, password, email address, first name & last name. Click 'Create My New Account'. A message will display. Click continue. Step 2: Verify Your Account: Check your email for an email from Telepath. In the email, click thelink provided to launch Telepath and complete registration. Step 3: Enroll in the 'Functional Health Coaching Portal'. Once you have launched Telepath, hoverover the Find Learning tab, and click on the drop-down option 'Courses'. Search for the course Functional Health Coaching Portal in the search field. In the search results, click the link to access the course. Step 4: Enter the Enrollment Anton Functional Coaching (this is case sensitive). Step 5: To login after enrollment, visit [email or web address]. Login under 'Non-Employee Login' using the username and password from step #1. If you have difficulty accessing this course, please email ADDITIONAL INSTRUCTIONS: How to Contact Your Functional Medicine Team (Open M-F 8am-5pm): MyChart is the BEST form of communication to reach the Functional Medicine Team, see test results and request refills. Please allow 72 business hours for a response. Directions for signing up are included in your New Patient Folder. (Or you can go to [email or web address]) Ordering Supplements: Supplements can be ordered from the [facility]'s Online Store: [email or web address] New patients to the [facility] Shop will need to enter the provider code FUNCTIONAL to registertheir account. documented in this encounterHolzer Medical Center [facility]11-15-2022 History of Present illness Narrative* Laura Claros RD - 08/09/2022 10:56 AM EST Images from the original note were not included. [facility] Functional [facility] Nutrition Therapy: Initial Assessment (Group) New Patient Shared Nutrition Appointment IN PERSON No Living Matrix, history adapted from provider's notes Class Topic: Introduction to Functional Nutrition and Implementation of Foundational Food Plan Patient Name: Sergo Suárez Headings Past Medical [...] (brought into office) - use of Black [place] and antiparasitic cleanse recommended by family member [...] provider notes B: -Rice chex - fruit. [place] sausage L: salad D: Beets, squash, fish / beef , eggs (pastured raised) Snacks: coconut ice cream daily Beverages: - Water with lemon - + daily - Camomile tea. - Limiting coffee - Some juice (Conway) - no soda. Anthropometrics There were no [...] trigger Plan from the start. Access the [employer] Nutrition Portal in Telepath to access your food plan comprehensive guide, weekly recipe automatic data processing planner, and food list. Shop for foods [...] start. Access the Functional Nutrition Portal in Telepath to access your food plan comprehensive guide, weekly recipe automatic data processing planner, and food list. Shop for foods [...] the best hydration options. How to Access Telepath Your Food Plan Resources: Accessing on Telepath To access Telepath, please visit: [email or web address] to create a new account. Step 1: Create Your Account: Complete the following izaguirre: username, password, email address, first name & last name. Click 'Create My New Account'. A message will display. Click continue. Step 2: Verify Your Account: Check your email for an email from Telepath. In the email, click thelink provided to launch MyLearning and complete registration. Step 3: Enroll in the 'Functional Nutrition Portal'. Once you have launched Telepath, hover over the Find Learning tab, and [...] Step 5: To login after enrollment, visit [email or web address]. Login under 'Non-Employee Login' using the username and password from step #1. Step 6: If you receive an error message that you already have an account, please click 'forgotten your username of password?' to reset your password. Need Help? If you have difficulty accessing this course, please email [email or web address]. Adherence Potential to Goals/Care Plan: Low Nutrition Monitoring & Evaluation: Adherence to food plan, changes in symptom frequency and intensity, nutrition-related laboratory data Criteria: Dietary recall, laboratory results, subjective symptom response Education Materials Provided: Food Plan Comprehensive Guide, Weekly Litigation Paralegal and Recipes, Phytonutrient Spectrum Foods, Product Guide, Simple Meal and Snack Ideas Follow up: 4 Weeks Time Spent: 60 minutes Referred/Supervised by: Kathy Huggins MD Consult Billing Type: Group/60 minutes Number of Increments: 2 (60 minutes) Signed by: Laura Claros RD documented in this encounterHolzer Medical Center [facility]11-14-2022 Miscellaneous Notes* Telephone Encounter - Madhuri Rivas Ma - 08/08/2022 10:34 AM EST GIFX shipped to: Sergo Suárez [address] [place] [address] documented in this encounterHolzer Medical Center – [facility]11-14-2022 History of Present illness Narrative* Kathy Huggins [...] (brought into office) - use of Black [place] and antiparasitic cleanse recommended by family member 2. Itching - noting long body - varying places - no rhyme or reason for location. Noting hot showers with some relief. Living [place] then in [place]. Noting skin with rash along back at [...] Meals - Breakfast -Rice chex - fruit. Salem sausage - Lunch - Salad with - Dinner - Beets, squash, fish / beef , eggs (pastured raised) Snack Coconut ice cream Drink - Water with lemon - + daily - Camomile tea. - Limiting coffee - Some juice (Conway) - no soda. Bowel Habits: Varies. [place] Type 5 to 7 (diet shifting?) Supplement? 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 Mouth/Throat: Lips: Dutton. Mouth: Mucous membranes are moist. Dentition: Abnormal [...] through nutritional visit - use your health college basketball coach for discussion on how to implement Supplement Support 3. Review supplements - None at this time. Pending labs may recommend [employer] The [facility] offers an easy to use, convenient way to order supplementation recommended by your provider through the [facility] Shop. All of the products offered are considered high-quality, and adhere to specific criteria for quality and effectiveness including good manufacturing practices, use of clean products, free of fillers, binders, and other antigens. In addition, we follow third alliance party analysis for independent verification of active ingredients. Get started by following three easy steps: Visit the following webpage: [email or web address] [employer] Statements on this site have not been [...] For issues with your MRN please call [phone] Stress Management Advisity Neuro -new technology to use a wearable device to retrain brain and focus on nervous system reduction. To learn more of this technology by going to (zbf-swv-lbdhd) https://Anna-Rita Sloss Enterprises/ Please look into this Heart Rate Variability [...] one of the Heart Math booklets off Solutionary thatfits your 'go to' emotion - Transforming [...] fully) . --- Polyvagal theory (Richard Walker) https://[email or web address]/ --- Dynamic Neural Retraining System - (Karlene Muñoz) [email or web address] --- Fournier Program - (Drew Fournier) Https://www.sherryPS Biotech.Acacia/ Finding time for self (no multitasking) at this time to dedicate to breathing / relaxation process.Work on cultivating kevin! Future Plans (for provider use): Follow up: Please schedule a follow up visit in- person or virtual with the following Caregivers: Provider: 8weeks, Print Production Manager: 4 weeks, and Health Advocacy Director: 2 weeks LIFESTYLE PRESCRIPTION Functional Nutrition: CORE: [...] food plan resources in MyLearning. At the [facility], we focus on the person as a whole. Mind, Body, and Spirit. Our Health Coaches are here to support you along this journey. Health Coaching is a valuable (& FREE) service at the [facility] which we offer to all of our patients. Their role is to help you put your functional medicine care plan into action and help you achieve your health goals. Working with your Health Advocacy Director on a regular basis can help you prioritize your next steps and build a strong foundation for healing. Your Health Advocacy Director will partner with you to develop a [...] mind will thank you! Stress Resilience and Scientology: Don t let stress run the show! [...] two weeks, please schedule with your Health Advocacy Director in order to create an individualized lifestyle [...] on your diet plan discussed with our machine cutter, allowing for gentle detoxification and decreasing inflammation - while we are gathering your lab resultsand combining those with your complete history to formulate a very personalized treatment plan. LAB results: Due to the complexity of the testing performed, we are not able to review labs via Kybalionhart or over the phone, but please know, if any of your labs are critical we will contact you. Otherwise, we will review all your labs at your next visit. We will go over a lot of information during your follow up visit - so please be well-rested. Also make sure to schedule with the machine cutter (this will not happen automatically). Kathy Huggins MD Time spent with patient: I spent a total of 65 minutes on the date of the service which included preparing to see the patient, [id number] patient care, completing clinical documentation, obtaining and/or reviewing separately obtained history, performing a medically appropriate examination, counseling and educating the pat ient/family/caregiver, ordering medications, tests, or procedures, and independently interpreting results (not separately reported). documented [facility] Miscellaneous Notes* Telephone Encounter - India Dennise [...] and advise. India Bowden documented in this encounterHolzer [facility]11-01-2022 Instructions* Patient Instructions* Anabell Zamudio PA-C - 07/26/2022 3:03 PM EDT CeraVe Itch Relief Moisturizing Cream (red label) [facility] DERMATOLOGY DEPART[facility] Liquid Nitrogen Therapy Care Instructions [...] do not go away documented in this encounterHolzer [facility] – [facility]11-01-2022 History of Present illness Narrative* Lesa Meraz [...] 10h of urinary retention, Voided x2 since cahng removed but small volume Begun on flomax [...] Skin examination of head/face was significant for: Dutton scaly papules right antihelix x1, left vertex [...] understanding and wishes to proceed. Derm Physician Soccer Ball Assembler: Anabell Zamudio PA-C (training) Cryosurgery performed with [...] understanding and wishes to proceed. Derm Physician Soccer Ball Assembler: Anabell Zamudio PA-C (training) Cryosurgery performed with Liquid Nitrogen via cryostat spray gun to Seborrheic Keratosis. 1 lesion(s) treated right forearm Patient tolerated well. Patient informed to return for evaluation and biopsy of any persistent, unresolved lesion after treatment. By signing my name below, I, Brittney No RN, attest that this documentation has been [...] 26, 2022 2:41 PM. documented in this encounterHolzer [facility]09-20-2022 History of Present illness Narrative* Kezia Dubose [...] control. Kezia Dubose MD documented in this encounterHolzer [facility]07-11-2022 History of Present illness Narrative* Kezia Dubose MD - 04/04/2022 2:46 PM EDT Reason for Visit Patient presents with: Established Patient: follow up-kidneys Sergo E Headings is a 87 year [...] CAPSULE Kezia Dubose MD documented in this encounterHolzer [facility]07-11-2022 Evaluation note* Diagnosis Stage 3a chronic kidney disease (HCC)- Primary Hypertension, essential Unspecified essential hypertension Elevated hemoglobin A1c Other abnormal blood chemistry Itching Unspecified pruritic disorder documented in this encounter [facility] Miscellaneous Notes* Telephone Encounter - Nataliia Oconnell PSS - 03/13/2022 10:24 AM EDT Patient is scheduled for 08/08/22 with Functional Medicine. Closing this encounter. Nataliia Oconnell PSS * Telephone Encounter - Marcelina Mandujano - 03/07/2022 9:12 AM EDT 1st attempt called patient LVM to call back and schedule appointment for functional medicine. * Telephone Encounter - Whitney Orellana LPN - 03/03/2022 12:59 PM EDT Clerical Pool: Please call patient to schedule a CONSULT TO FUNCTIONAL MEDICINE. Thank you!! documented in this encounterHolzer [facility]06-01-2022 Miscellaneous Notes* Telephone Encounter - Danuta Parry Ma - 02/23/2022 10:41 AM EDT Mychart message sent. * Telephone Encounter - Danuta [...] do let me know. documented in this encounterHolzer Medical Center – [facility]05-23-2022 History of Present illness Narrative* Osmin Singh MD - 02/14/2022 2:30 PM EDT Images from the original note were not included. DATE: 12/12/2019 SURGEON: Osmin Singh SURGERY:EVAR with [place] C3 26mm x 14.5cm x 14cm long body from right, Contralateral 16mm x 14.5mm x 9.5cm limb and 16mm x 20mm x 11.5cm long limb, Ipsilateral 16mm x 18mm x 11.5cm limb on right Here for f/u of 60mm AAA and carotid aso <40% s/p EVAR in November 2019 Heart , Vascular and Thoracic [place] DEPARTMENT OF VASCULAR SURGERY OUTPATIENT VISIT DATE [...] ANEURYSM REPAIR 11/2019 COLONOSCOP W/ OR W/O [facility] SPEC 03/23/2004 Colonoscopy COLONOSCOP W/ OR W/O [facility] SPEC 05/05/2008 Colonoscopy, repeat 10 yrs [...] AM Medical Decision Making documented in this encounterHolzer [facility] Center – [facility]05-23-2022 History of Present illness Narrative* RT Lou(R) - 02/14/2022 9:00 AM EDT Radiology Service Progress Note PATIENT NAME: Sergo Rosas DATE OF SERVICE: February 14, 2022 TIME: [...] IV DATA: Not applicable SIGNED BY: RT Lou(R) February 14, 2022 10:21 AM documented in this encounterHolzer Medical Center [facility]05-12-2022 Miscellaneous Notes* Telephone Encounter - Danuta Parry [...] in 2 weeks. Thank you Kevin Bhagat APRN.CNP documented in this encounterHolzer Medical Center – [facility]05-12-2022 Evaluation note* Diagnosis Stage 3a chronic kidney disease (HCC)- Primary Function kidney decreased Unspecified disorder of kidney and ureter documented in this encounter [facility] History of Present illness Narrative* Kezia Dubose [...] ANEURYSM REPAIR 11/2019 COLONOSCOP W/ OR W/O [facility] SPEC 03/23/2004 Colonoscopy COLONOSCOP W/ OR W/O [facility] SPEC 05/05/2008 Colonoscopy, repeat 10 yrs [...] with: Establish Care: Transfer of Care Sergo Rosas is a 87 year old [...] removed but small volume Begun on flomax 3/19 Obtain postvoid residual to ensure no overflow [...] ANEURYSM REPAIR 11/2019 COLONOSCOP W/ OR W/O [facility] SPEC 03/23/2004 Colonoscopy COLONOSCOP W/ OR W/O [facility] SPEC 05/05/2008 Colonoscopy, repeat 10 yrs [...] E55.9 Kezia Dubose MD documented in this encounterHolzer Medical Center – [facility]08-20-2021 [facility]08-20-2021 NotePhysical Therapy Inpatient Evaluation Medical Diagnosis: syncope, chronic (L) cerebellar lacunar infarct Therapy Diagnosis: Rank Code Description 1 R26.2 Difficulty in walking, not elsewhere classified 2 R26.81 Unsteadiness on feet Demographics: Age: 86Y Gender: Male Primary Language: Trinidadian Preferred Language: Trinidadian Referring Service/Team: Medicine Past Medical History: Past [...] lifestyle/diet, Gluten allergy who presents to the [facility] on 05/11/21 with history of severe diarrhea 2 months prior with evaluation at [facility] with no obvious source at that time with colonoscopy performed and patient reports no findings including microscopic colitis eventually discharged and his daughter who is an STRAP FOLDING MACHINE OPERATOR per his report placed him [...] of fall ED physician requested CT head [facility] PATIENT NAME: HEADINGS,SERGO Panda [facility] Dr. Shearer MEDICAL REC #: [id number] [place] [address] ADMIT DATE: 05/11/21 SERVICE DATE: 05/14/21 Physical Therapy Assessment Report ATTENDING PHY: Keyonna eWlch MD which is pending upon evaluation of patient. OBTAINED FROM [facility] Date of Admission: 05/11/2021 11:00:00 PM Rehabilitation [...] not using an assistive device for ambulation FUR GLOSSER. He was I w/all self care tasks and shares homemaking tasks and yardwork w/. He drives FUR GLOSSER Prior Device Use: Performance GG110. Prior Device [...] Patient is able to follow 3-step commands. [facility] PATIENT NAME: SERGO ROSAS [facility] Dr[facility] Shearer MEDICAL REC #: [id number] [place] [address] ADMIT DATE: 05/11/21 SERVICE DATE: 05/14/21 Physical [...] Demographics: Age: 86Y Gender: Male Primary Language: Trinidadian Preferred Language: Trinidadian Referring Service/Team: Medicine Past Medical History: Past [...] lifestyle/diet, Gluten allergy who presents to the [facility] on 05/11/21 with history of severe diarrhea 2 months prior with evaluation at [facility] with no obvious source at that time with colonoscopy performed and patient reports no findings including microscopic colitis eventually discharged and his daughter who is an STRAP FOLDING MACHINE OPERATOR per his report placed him [...] which is pending upon evaluation of patient. [facility] PATIENT NAME: HEADINGS,SERGO Panda Ashlie Shearer MEDICAL REC #: [id number] [place] [address] ADMIT DATE: 05/11/21 SERVICE DATE: 05/14/21 Occupational Therapy Assessment ATTENDING PHY: Keyonna Welch MD OBTAINED FROM [facility] Date of Admission: 05/11/2021 11:00:00 PM Rehabilitation [...] not using an assistive device for ambulation FUR GLOSSER. He was I w/all self care tasks and shares homemaking tasks and yardwork w/. He drives FUR GLOSSER Patient/Caregiver Goals: Patient's functional goals: to go [...] - Toileting Independent - AM-PAC Daily Activities: [facility] PATIENT NAME: SERGO ROSAS [facility] Dr[facility] Shearer MEDICAL REC #: [id number] [place] [address] ADMIT DATE: 05/11/21 SERVICE DATE: 05/14/21 Occupational [...] included)...[facility]06-[facility]21 NoteHNO ID: [id number] Author: Cary Hudson RN Service: Care Management [...] Physician Primary Care Physician Name/Phone: Walter Loya MD/[phone] TRANSPORTATION ARRANGEMENTS: Transportation Arrangements: Car (Family to transport) ADDITIONAL CONTACT RESOURCES: N/A Needs Prior to Discharge: None;Ready for Discharge Discharge to home today. No skilled needs. Son to transport. Patient plans on following-up with GI provider after discharge. SIGNATURE: Cary Hudson RN PATIENT NAME: Sergo Suárez Headings DATE: March 05, 2021 TIME: 1:10 PM PAGER/CONTACT #: [phone] NoteHNO ID: [id number] Author: Cary Hudson RN Service: Care Management [...] 05, 2021 TIME: 12:39 PM PAGER/CONTACT #: [phone] NoteHNO ID: [id number] Author: James Pierce MD Service: Hospital Medicine Author Type: Physician Type: Progress Notes Filed: 03/05/2021 12:30 PM Note Text: DEPARTMENT OF HOSPITAL MEDICINE PROGRESS NOTE SERVICE DATE: 03/05/2021 SERVICE TIME: 12:26 PM Hospital Medicine/Primary Attending: James Pierce MD NIGHT AND WEEKEND COVERAGE: [employer] COVER[employer]: Nights: [phone], please page [place] Hospitalist Night coverage pager [phone]. Assessment/Plan ASSESSMENT No chest pain or shortness of breath-some pruritus which appears to be dry skin and Lac-Hydrin - Murmur but echo 2019 showed aortic sclerosis no stenosis - Pruritus without rash by palpation seems to have dry skin and areas he notes pruritus and will use Lac-Hydrin twice daily - Enteric pathogens negative ova and parasites jwnpyvh-kjwppaip-lz-law is a nurse practitioner who felt he [...] On since Sep while he was in [place]. He saw GI and PCP in [place] without much improvement. Over last few weeks [...] episode of diarrhea last year while in [place] but that resolved with few weeks. Has [...] 02/04/2019 150/72 08/24/2018 122/64 (more content not included)...[facility] [id number] Note HNO ID: [id number] Author: James Pierce MD Service: Hospital Medicine Author Type: Physician Type: Progress Notes Filed: 03/04/2021 11:28 AM Note Text: DEPARTMENT OF HOSPITAL MEDICINE PROGRESS NOTE SERVICE DATE: 03/04/2021 SERVICE TIME: 10:29 AM Hospital Medicine/Primary Attending: James Pierce MD NIGHT AND WEEKEND COVERAGE: [employer] COVER[employer]: Nights: [phone], please page [facility] Night coverage pager [phone]. Assessment/Plan ASSESSMENT No chest pain or shortness of breath-some pruritus which appears to be dry skin and Lac-Hydrin - Murmur but echo 2019 showed aortic sclerosis no stenosis - Pruritus without rash by palpation seems to have dry skin and areas he notes pruritus and will use Lac-Hydrin twice daily - Enteric pathogens negative ova and parasites mjkfdbz-hhfuyesw-vy-law is a nurse practitioner who felt he [...] On since Sep while he was in [place]. He saw GI and PCP in [place] without much improvement. Over last few weeks [...] episode of diarrhea last year while in [place] but that resolved with few weeks. 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 Stated Goals: To have reduction in symptoms;To [...] None Has the Patient Been in a Fdc Facility in the Past 30 days?: No SOCIAL: Living Arrangements: Home Lives With: Spouse Financial Resources: Retired Primary Contact: Extended Emergency Contact Information Primary Emergency Contact: Betsey Rosas Address: [address] [place] [id number] [address] Relation: Spouse Secondary Emergency Contact: Kesha [...] Completely I feel financially burdened by my nfj-my-chqxnt expenses for my prescription medication:: 0 - Disagree Completely Risk Score: 0 Patient is categorized as: Low risk < 2 Are you interested in bedside delivery of your medications? No, preferred community [facility] Is Patient Psychosocially Complex?: No ASSESSMENT AND PLAN: Medical Needs: Medical Needs: Two or more chronic diseases Psychosocial Needs: Psychosocial Needs: None FREEDOM OF CHOICE EXPLAINED: [place] of Choice Given: No Reason Not Given: No placements necessary POTENTIAL TRANSITION PLANS Home EMR reviewed and CM assessment complete. 86 year old patient admitted for diarrhea, dehydration and hyponatremia. SESAR CM met with the patient at bedside to discuss discharge planning needs. He reportedly lives with his in a two level home and was independent with ADL's and I-ADL's FUR GLOSSER. No skilled needs anticipated at discharge. CM assigned will continue to follow. SIGNATURE: Cary Hudson RN PATIENT NAME: Sergo Rosas DATE: March 03, 2021 TIME: 1:55 PM PAGER/CONTACT #: [phone] NoteHNO ID: [id number] Author: James Pierce MD Service: Hospital Medicine Author Type: Physician Type: Progress Notes Filed: 03/03/2021 12:31 PM Note Text: DEPARTMENT OF HOSPITAL MEDICINE PROGRESS NOTE SERVICE DATE: 03/03/2021 SERVICE TIME: 8:08 AM Hospital Medicine/Primary Attending: James Pierce MD NIGHT AND WEEKEND COVERAGE: [employer] COVER[employer]: Nights: [phone], please page [place] Hospitalist Night coverage pager [phone]. Assessment/Plan ASSESSMENT No chest pain or shortness of breath-some pruritus which appears to be dry skin and Lac-Hydrin - Murmur but echo 2019 showed aortic sclerosis no stenosis - Pruritus without rash by palpation seems to have dry skin and areas he notes pruritus and will use Lac-Hydrin twice daily - Enteric pathogens negative ova and parasites wjghvhd-xjujlhbq-kc-law is a nurse practitioner who felt he [...] On since Sep while he was in [place]. He saw GI and PCP in [place] without much improvement. Over last few weeks [...] episode of diarrhea last year while in [place] but that resolved with few weeks. Has [...] > 12.5* HCT 33. (more content not included)...[facility] [id number] NoteHNO ID: [id number] Author: James Pierce MD Service: Hospital Medicine Author Type: Physician Type: Progress Notes Filed: 03/02/2021 10:59 AM Note Text: DEPARTMENT OF HOSPITAL MEDICINE PROGRESS NOTE SERVICE DATE: 03/02/2021 SERVICE TIME: 8:35 AM Hospital Medicine/Primary Attending: James Pierce MD NIGHT AND WEEKEND COVERAGE: [employer] COVERAGE: Nights: [phone], please page [facility] Night coverage pager [phone]. Assessment/Plan ASSESSMENT No chest pain or shortness of breath-some pruritus which appears to be dry skin and Lac-Hydrin - Murmur but echo 2019 showed aortic sclerosis no stenosis - Pruritus without rash by palpation seems to have dry skin and areas he notes pruritus and will use Lac-Hydrin twice daily - Enteric pathogens negative ova and parasites wotfzge-wztifymb-xr-law is a nurse practitioner who felt he [...] On since Sep while he was in [place]. He saw GI and PCP in [place] without much improvement. Over last few weeks [...] episode of diarrhea last year while in [place] but that resolved with few weeks. Has [...] 25.7 MONOP -- 1 (more content not included)...[facility] [id number] History of Past illness Narrative* Problem Noted Date Resolved Date Right shoulder pain 09/08/2013 09/18/2014 documented as of this encounter (statuses as of 01/29/2022) [facility] of Past illness Narrative* Problem Noted Date Resolved Date Right shoulder pain 09/08/2013 09/18/2014 documented as of this encounter (statuses as of 02/03/2022) [facility] History of Past illness Narrative* Problem Noted Date Resolved Date Right shoulder pain 09/08/2013 09/18/2014 documented as of this encounter (statuses as of 02/14/2022) [address]-2013 History of Past illness Narrative* Problem Noted Date Resolved Date Right shoulder pain 09/08/2013 09/18/2014 documented as of this encounter (statuses as of 02/15/2022) [address]15-2013 History of Past illness Narrative* Problem Noted Date Resolved Date Right shoulder pain 09/08/2013 09/18/2014 documented as of this encounter (statuses as of 02/23/2022) [address]2013 History of Past illness Narrative* Problem Noted Date Resolved Date Right shoulder pain 09/08/2013 09/18/2014 documented as of this encounter (statuses as of 03/15/2022) [address]2013 History of Past illness Narrative* Problem Noted Date Resolved Date Right shoulder pain 09/08/2013 09/18/2014 documented as of this encounter (statuses as of 04/04/2022) [address]2013 History of Past illness Narrative* Problem Noted Date Resolved Date Right shoulder pain 09/08/2013 09/18/2014 documented as of this encounter (statuses as of 06/14/2022) [address]2013 History of Past illness Narrative* Problem Noted Date Resolved Date Right shoulder pain 09/08/2013 09/18/2014 documented as of this encounter (statuses as of 07/26/2022) [address]2013 History of Past illness Narrative* Problem Noted Date Resolved Date Right shoulder pain 09/08/2013 09/18/2014 documented as of this encounter (statuses as of 08/04/2022) [address]2013 History of Past illness Narrative* Problem Noted Date Resolved Date Right shoulder pain 09/08/2013 09/18/2014 documented as of this encounter (statuses as of 08/08/2022) [address]2013 History of Past illness Narrative* Problem Noted Date Resolved Date Right shoulder pain 09/08/2013 09/18/2014 documented as of this encounter (statuses as of 08/08/2022) [address]2013 History of Past illness Narrative* Problem Noted Date Resolved Date Right shoulder pain 09/08/2013 09/18/2014 documented as of this encounter (statuses as of 08/08/2022) [address]2013 History of Past illness Narrative* Problem Noted Date Resolved Date Right shoulder pain 09/08/2013 09/18/2014 documented as of this encounter (statuses as of 08/09/2022) [address]2013 History of Past illness Narrative* Problem Noted Date Resolved Date Right shoulder pain 09/08/2013 09/18/2014 documented as of this encounter (statuses as of 08/09/2022) [address]2013 History of Past illness Narrative* Problem Noted Date Resolved Date Right shoulder pain 09/08/2013 09/18/2014 documented as of this encounter (statuses as of 08/12/2022) [address]2013 History of Past illness Narrative* Problem Noted Date Resolved Date Right shoulder pain 09/08/2013 09/18/2014 documented as of this encounter (statuses as of 09/01/2022) [address]2013 History of Past illness Narrative* Problem Noted Date Resolved Date Right shoulder pain 09/08/2013 09/18/2014 documented as of this encounter (statuses as of 10/13/2022) [address]2013 History of Past illness Narrative* Problem Noted Date Resolved Date Right shoulder pain 09/08/2013 09/18/2014 documented as of this encounter (statuses as of 10/17/2022) [address]2013 History of Past illness Narrative* Problem Noted Date Resolved Date Right shoulder pain 09/08/2013 09/18/2014 documented as of this encounter (statuses as of 12/02/2022) [address]2013 History of Past illness Narrative* Problem Noted Date Resolved Date Right shoulder pain 09/08/2013 09/18/2014 documented as of this encounter (statuses as of 12/07/2022) [address]2013 History of Past illness Narrative* Problem Noted Date Resolved Date Right shoulder pain 09/08/2013 09/18/2014 documented as of this encounter (statuses as of 01/31/2023) [address]2013 History of Past illness Narrative* Problem Noted Date Resolved Date Right shoulder pain 09/08/2013 09/18/2014 documented as of this encounter (statuses as of 02/01/2023) [facility] History of Past illness Narrative* Problem Noted Date Resolved Date Right shoulder pain 09/08/2013 09/18/2014 documented as of this encounter (statuses as of 02/01/2023) [facility] History of Past illness Narrative* Problem Noted Date Resolved Date Right shoulder pain 09/08/2013 09/18/2014 documented as of this encounter (statuses as of 02/21/2023) [place] [facility] note* Diagnosis Medicare annual wellness visit, subsequent- [...] vitamin D deficiency [facility] Diagnosis Bilateral carotid artery stenosis- Primary Occlusion and stenosis of carotid artery without mention of cerebral infarction Synovial cyst of right popliteal space Synovial cyst of popliteal space Abdominal aortic aneurysm without rupture (HCC) Abdominal aneurysm without mention of rupture [facility] Diagnosis AAA (abdominal aortic aneurysm) without rupture (HCC) Abdominal aneurysm without mention of rupture Peripheral vascular disease (HCC) Peripheral vascular disease, unspecified [facility] Hypertension, essential- Primary Unspecified essential hypertension Mixed hyperlipidemia Abdominal aortic aneurysm without rupture Abdominal aneurysm without mention of rupture Stage 3a chronic kidney disease (HCC) AK (actinic keratosis) Actinic keratosis [facility] Diagnosis Actinic keratosis- Primary Seborrheic keratoses, inflamed Inflamed seborrheic keratosis Pruritus Unspecified pruritic disorder [facility] Hypertension, essential Unspecified essential hypertension [facility] Diagnosis Irritable bowel syndrome with diarrhea- [...] gastroenteritis and colitis [facility] Diagnosis Encounter for person encountering health services- Primary [facility] Diagnosis Irritable bowel syndrome with diarrhea- Primary Irritable bowel syndrome Dietary counseling and surveillance Dietary surveillance and counseling [facility] Diagnosis Small intestinal bacterial overgrowth (SIBO)- Primary [facility] Diagnosis Abdominal aortic aneurysm (AAA) without rupture, unspecified part (HCC)- Primary [facility] Diagnosis Bloating- Primary Flatulence, eructation, and gas pain Lower urinary tract symptoms (LUTS) Other symptoms involving urinary system Diarrhea, unspecified type Stage 3a chronic kidney disease (HCC) [facility] Diagnosis Intestinal dysbiosis- Primary Impaired nutrient utilization Hypertension, essential Unspecified essential hypertension [facility] Diagnosis 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 Left-sided weakness Muscle weakness (generalized) [facility] Diagnosis Neck pain, chronic- Primary Cervicalgia Celiac disease Acute diarrhea Diarrhea [facility] Diagnosis Candidal enteritis- Primary Candidiasis of the intestine Intestinal dysbiosis Hx of completed stroke Transient ischemic attack (TIA), and cerebral infarction without residual deficits [facility] Diagnosis Neck pain, chronic Cervicalgia Celiac disease Acute diarrhea Diarrhea [facility] Diagnosis Nonrheumatic aortic valve insufficiency, moderate to severe, LVEF 55 to 60%, LVEDD 50 mm.- Primary Aortic valve disorders Hypertension, essential Unspecified essential hypertension Mixed hyperlipidemia Peripheral vascular disease (HCC) Peripheral vascular disease, unspecified Cerebrovascular accident (CVA), unspecified mechanism (HCC) [facility] Diagnosis 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 Left-sided weakness Muscle weakness (generalized) Vision loss of left eye Unqualified visual loss, one eye [facility] Diagnosis Pruritus- Primary Unspecified pruritic disorder Seborrheic keratosis Other seborrheic keratosis Encounter for screening for malignant neoplasm of skin Screening for malignant neoplasm of the skin Lentigines Other dyschromia [facility] Diagnosis Nonrheumatic aortic valve insufficiency, moderate to severe, LVEF 55 to 60%, LVEDD 50 mm.- Primary Aortic valve disorders Hypertension, essential Unspecified essential hypertension Mixed hyperlipidemia Peripheral vascular disease (HCC) Peripheral vascular disease, unspecified Cerebrovascular accident (CVA), unspecified mechanism (HCC) [facility] Diagnosis Hypertension, essential- Primary Unspecified essential hypertension Low testosterone Other testicular hypofunction [facility] Diagnosis Irritable bowel syndrome with diarrhea- Primary Irritable bowel syndrome Candidal enteritis Candidiasis of the intestine [facility] Diagnosis 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 Left-sided weakness Muscle weakness (generalized) Vision loss of left eye Unqualified visual loss, one eye [facility] Diagnosis Acute UTI- Primary Urinary tract infection, site not specified [facility] Diagnosis Dysuria- Primary [facility] Diagnosis Lower urinary tract symptoms (LUTS) Other symptoms involving urinary system [facility] Diagnosis Testosterone deficiency- Primary Other testicular hypofunction [facility] Diagnosis Testosterone deficiency- Primary Other testicular hypofunction Mixed hyperlipidemia Cerebrovascular accident (CVA), unspecified mechanism (HCC) 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 [facility] Diagnosis Delirium, acute- Primary Other alteration of consciousness Hyponatremia Hyposmolality and/or hyponatremia Prediabetes Other abnormal glucose Severe protein-calorie malnutrition (HCC) Other severe protein-calorie malnutrition Acute ischemic stroke (HCC) Unspecified cerebral artery occlusion with cerebral infarction Testosterone deficiency Other testicular hypofunction [facility] Diagnosis SIADH (syndrome of inappropriate ADH production) ([facility])- Primary Other disorders of neurohypophysis Weakness of both lower extremities Anemia, unspecified type Hypomagnesemia Disorders of magnesium metabolism documented in this encounter [facility] for referral (narrative)* Diagnostic Procedure Only (Routine) - Closed Specialty Diagnoses / Procedures Referred By Contac amber Referred To Contact XR IMAGING Diagnoses AAA (abdominal aortic aneurysm) without rupture (HCC) Peripheral vascular disease (HCC) Procedures XR ABDOMEN 3V KUB W/OBLIQUES RADIOLOGIC EXAM ABDOMEN 3+ VIEWS Osmin Singh MD [address] [place] [address] Xr Imaging Referral ID Status Reason Start Date Expiration Date V isits Requested Visits Authorized [id number] Closed Auto-Generate d Referral 11/17/2021 12/17/2022 1 1 [facility] for referral (narrative)* Outpatient Procedure (Routine) - Authorized Specialty Diagnoses / Procedures Referred By Judy clark Referred To [facility] Diagnoses Nonrheumatic aortic valve insufficiency Procedures ECHO ECHO TTHRC R-T 2D W/WOM-MODE COMPL SPEC&COLR D Walter Nuñez MD [address] [place] [address] [place] [id number] [place] [id number] Referral ID Status Reason Start Date Expiration Date Visits Requested Visits Authorized [id number] Authorized Auto-Generat ed Referral 07/26/2024 01/23/2025 1 1 [facility] Summary Purpose Family History No Family History Records FoundNo Family History Records FoundNo Family History Records FoundNo Family History Records FoundNo Family History Records Found Advance Directives Documents on File Type Date Recorded Patient Database Report Writer Expl anation Advance Directive(s) 04/13/2016 4:17 PM Date Activated Date Inactivated Comments 04/01/2023 9:55 PM 04/06/2023 9:55 PM Question Answer Comments Full Code Order Discussed With: Patient Documents on File Type Date Recorded Patient Database Report Writer Expl anation Advance Directive(s) 03/01/2021 4:48 PM Advance Directive(s) 02/24/2021 10:03 PM Advance Directive(s) 12/12/2019 6:57 AM Advance Directive(s) 12/09/2019 11:36 AM Advance Directive(s) 02/04/2019 2:06 PM Advance Directive(s) 04/13/2016 4:17 PM Documents on File Type Date Recorded Patient Database Report Writer Expl anation Advance Directive(s) 03/01/2021 4:48 PM Advance Directive(s) 02/24/2021 10:03 PM Advance Directive(s) 12/12/2019 6:57 AM Advance Directive(s) 12/09/2019 11:36 AM Advance Directive(s) 02/04/2019 2:06 PM Advance Directive(s) 04/13/2016 4:17 PM Documents on File Type Date Recorded Patient Database Report Writer Expl anation Advance Directive(s) 04/13/2016 4:17 PM [...] Referral Specialty Diagnoses / Procedures Referred By Contac t Referred To Contact Dermatology Diagnoses AK (actinic keratosis) Procedures CONSULT TO DERMATOLOGY Kezia Dubose MD [address] [place] [address] Referral ID Status Reason Start Date Expiration Date Visits Requested Visits Authorized [id number] Ref Not Required PCP Requested Referral 06/14/2022 06/14/2023 1 1 Specialty Diagnoses / Procedures Referred By Contac t Referred To Contact Cardiology Diagnoses Aortic valve insufficiency, etiology of cardiac valve disease unspecified Procedures CONSULT TO CARDIOLOGY Kathy Huggins MD [address] [address] Walter Nuñez MD [address] [place] [address] Referral ID Status Reason Start Date Expiration Date Visits Requested Visits Authorized [id number] Ref Not Required PCP Requested Referral 2 08/08/2023 1 1 Specialty Diagnoses / Procedures Referred By Contac t Referred To Contact CT IMAGING Diagnoses Abdominal aortic aneurysm (AAA) without rupture, unspecified part (HCC) Procedures CTA ABD/PEL WO/W IVCON CT ANGIO ABD&PLVIS CNTRST MTRL W/WO CNTRST IMGES Osmin Singh MD [address] [place] [address] Ct Imaging Referral ID Status Reason Start Date Expiration Date Visits Requested Visits Authorized [id number] Authorized Auto-Generat ed Referral 12/07/2022 01/06/2024 1 1 Specialty Diagnoses / Procedures Referred By Contac t Referred To Contact [facility] [place] Diagnoses Abdominal aortic aneurysm (AAA) without rupture, unspecified part (HCC) Procedures PVR ANK/COFFEY/TOE DICK VAS LAB NON-INVAS PHYSIOLOGIC STD EXTREMITY ART 2 LEVEL Osmin Singh MD [address] [place] [address] [facility] [place] [address] Referral ID Status Reason Start Date Expiration Date Visits Requested Visits Authorized [id number] Authorized Auto-Generat ed Referral 12/07/2022 12/07/2023 1 1 Specialty Diagnoses / Procedures Referred By Contac t Referred To Contact Diagnoses Decreased hearing of both ears Procedures HEARING TEST/AUDIOGRAM COMPRE AUDIOMETRY THRESHOLD EVAL SP RECOGNIJ Kezia Dubose MD [facility] [place] [address] [facility] [address] [place] [address] Referral ID Status Reason Start Date Expiration Date Visits Requested Visits Authorized [id number] New Request Auto-Generat ed Referral 04/18/2024 07/17/2024 1 1 Specialty Diagnoses / Procedures Referred By Contac t Referred To Contact Nephrology Diagnoses Hyponatremia Delirium, acute Procedures CONSULT TO NEPHROLOGY OFFICE/OUTPATIENT NEW HIGH MDM 60 MINUTES Kezia Dubose [facility] [place] [address] Referral ID Status Reason Start Date Expiration Date Visits Requested Visits Authorized [id number] Authorized PCP Requested Referral 04/24/2024 04/24/2025 1 1 Specialty Diagnoses / Procedures Referred By Contac t Referred To Contact [facility] Diagnoses Weakness of both lower extremities Procedures CONSULT TO PHYSICAL THERAPY PHYSICAL THERAPY EVALUATION HIGH COMPLEX 45 MINS Kezia Dubose MD [address] [place] [address] [facility] [place] [address] [place] [address] Referral ID Status Reason Start Date Expiration Date Visits Requested Visits Authorized [id number] Pending Review Auto-Generat ed Referral 05/20/2024 05/20/2025 1 1 Additional Source Comments (unrecognized sect ion and content) No Status Records FoundNo Status Records FoundNo Status Records FoundNo Status Records FoundNo Status Records Found INFORMATION SOURCE (unrecogn ized section and content) DATE CREATED AUTHOR 03/15/2021 [facility] DATE CREATED AUTHOR AUTHOR'S ORGANIZ ATION 11/15/2021 [facility] DATE CREATED AUTHOR AUTHOR'S ORGANIZ ATION 04/08/2023 [facility] DATE CREATED AUTHOR AUTHOR'S ORGANIZ ATION 04/30/2024 [facility] DATE CREATED AUTHOR AUTHOR'S ORGANIZ ATION 07/07/2024 [facility] Source Comments (unrecognize d section and content) In the event this informatio n is protected by the Federal Confidentiality of Alcohol and Drug Abuse Patient Records regulations: The Federal rules restrict any use of the information to criminally investigate or prosecute any alcohol or drug abuse patient.[facility] event this information is protected by the Federal Confidentiality of Alcohol and Drug Abuse Patient Records regulations: The Federal rules restrict any use of the information to criminally investigate or prosecute any alcohol or drug abuse patient.[facility] the event this information is protected by the Federal Confidentiality of Alcohol and Drug Abuse Patient Records regulations: The Federal rules restrict any use of the information to criminally investigate or prosecute any alcohol or drug abuse patient.[facility] the event this information is protected by the Federal Confidentiality of Alcohol and Drug Abuse Patient Records regulations: The Federal rules restrict any use of the information to criminally investigate or prosecute any alcohol or drug abuse patient.[facility] event this information is protected by the Federal Confidentiality of Alcohol and Drug Abuse Patient Records regulations: The Federal rules restrict any use of the information to criminally investigate or prosecute any alcohol or drug abuse patient.[facility] the event this information is protected by the Federal Confidentiality of Alcohol and Drug Abuse Patient Records regulations: The Federal rules restrict any use of the information to criminally investigate or prosecute any alcohol or drug abuse patient.[facility] the event this information is protected by the Federal Confidentiality of Alcohol and Drug Abuse Patient Records regulations: The Federal rules restrict any use of the information to criminally investigate or prosecute any alcohol or drug abuse patient.[facility] the event this information is protected by the Federal Confidentiality of Alcohol and Drug Abuse Patient Records regulations: The Federal rules restrict any use of the information to criminally investigate or prosecute any alcohol or drug abuse patient.[facility] the event this information is protected by the Federal Confidentiality of Alcohol and Drug Abuse Patient Records regulations: The Federal rules restrict any use of the information to criminally investigate or prosecute any alcohol or drug abuse patient.[facility] the event this information is protected by the Federal Confidentiality of Alcohol and Drug Abuse Patient Records regulations: The Federal rules restrict any use of the information to criminally investigate or prosecute any alcohol or drug abuse patient.[facility] the event this information is protected by the Federal Confidentiality of Alcohol and Drug Abuse Patient Records regulations: The Federal rules restrict any use of the information to criminally investigate or prosecute any alcohol or drug abuse patient.[facility] the event this information is protected by the Federal Confidentiality of Alcohol and Drug Abuse Patient Records regulations: The Federal rules restrict any use of the information to criminally investigate or prosecute any alcohol or drug abuse patient.[facility] the event this information is protected by the Federal Confidentiality of Alcohol and Drug Abuse Patient Records regulations: The Federal rules restrict any use of the information to criminally investigate or prosecute any alcohol or drug abuse patient.[facility] the event this information is protected by the Federal Confidentiality of Alcohol and Drug Abuse Patient Records regulations: The Federal rules restrict any use of the information to criminally investigate or prosecute any alcohol or drug abuse patient.[facility] the event this information is protected by the Federal Confidentiality of Alcohol and Drug Abuse Patient Records regulations: The Federal rules restrict any use of the information to criminally investigate or prosecute any alcohol or drug abuse patient.[facility] the event this information is protected by the Federal Confidentiality of Alcohol and Drug Abuse Patient Records regulations: The Federal rules restrict any use of the information to criminally investigate or prosecute any alcohol or drug abuse patient.[facility] the event this information is protected by the Federal Confidentiality of Alcohol and Drug Abuse Patient Records regulations: The Federal rules restrict any use of the information to criminally investigate or prosecute any alcohol or drug abuse patient.[facility] the event this information is protected by the Federal Confidentiality of Alcohol and Drug Abuse Patient Records regulations: The Federal rules restrict any use of the information to criminally investigate or prosecute any alcohol or drug abuse patient.[facility] the event this information is protected by the Federal Confidentiality of Alcohol and Drug Abuse Patient Records regulations: The Federal rules restrict any use of the information to criminally investigate or prosecute any alcohol or drug abuse patient.[facility] the event this information is protected by the Federal Confidentiality of Alcohol and Drug Abuse Patient Records regulations: The Federal rules restrict any use of the information to criminally investigate or prosecute any alcohol or drug abuse patient.[facility] the event this information is protected by the Federal Confidentiality of Alcohol and Drug Abuse Patient Records regulations: The Federal rules restrict any use of the information to criminally investigate or prosecute any alcohol or drug abuse patient.[facility] the event this information is protected by the Federal Confidentiality of Alcohol and Drug Abuse Patient Records regulations: The Federal rules restrict any use of the information to criminally investigate or prosecute any alcohol or drug abuse patient.[facility] the event this information is protected by the Federal Confidentiality of Alcohol and Drug Abuse Patient Records regulations: The Federal rules restrict any use of the information to criminally investigate or prosecute any alcohol or drug abuse patient.[facility] the event this information is protected by the Federal Confidentiality of Alcohol and Drug Abuse Patient Records regulations: The Federal rules restrict any use of the information to criminally investigate or prosecute any alcohol or drug abuse patient.[facility] the event this information is protected by the Federal Confidentiality of Alcohol and Drug Abuse Patient Records regulations: The Federal rules restrict any use of the information to criminally investigate or prosecute any alcohol or drug abuse patient.[facility] the event this information is protected by the Federal Confidentiality of Alcohol and Drug Abuse Patient Records regulations: The Federal rules restrict any use of the information to criminally investigate or prosecute any alcohol or drug abuse patient.[facility] the event this information is protected by the Federal Confidentiality of Alcohol and Drug Abuse Patient Records regulations: The Federal rules restrict any use of the information to criminally investigate or prosecute any alcohol or drug abuse patient.[facility] the event this information is protected by the Federal Confidentiality of Alcohol and Drug Abuse Patient Records regulations: The Federal rules restrict any use of the information to criminally investigate or prosecute any alcohol or drug abuse patient.[facility] the event this information is protected by the Federal Confidentiality of Alcohol and Drug Abuse Patient Records regulations: The Federal rules restrict any use of the information to criminally investigate or prosecute any alcohol or drug abuse patient.[facility] the event this information is protected by the Federal Confidentiality of Alcohol and Drug Abuse Patient Records regulations: The Federal rules restrict any use of the information to criminally investigate or prosecute any alcohol or drug abuse patient.[facility] the event this information is protected by the Federal Confidentiality of Alcohol and Drug Abuse Patient Records regulations: The Federal rules restrict any use of the information to criminally investigate or prosecute any alcohol or drug abuse patient.[facility] the event this information is protected by the Federal Confidentiality of Alcohol and Drug Abuse Patient Records regulations: The Federal rules restrict any use of the information to criminally investigate or prosecute any alcohol or drug abuse patient.[facility] the event this information is protected by the Federal Confidentiality of Alcohol and Drug Abuse Patient Records regulations: The Federal rules restrict any use of the information to criminally investigate or prosecute any alcohol or drug abuse patient.[facility] the event this information is protected by the Federal Confidentiality of Alcohol and Drug Abuse Patient Records regulations: The Federal rules restrict any use of the information to criminally investigate or prosecute any alcohol or drug abuse patient.[facility] the event this information is protected by the Federal Confidentiality of Alcohol and Drug Abuse Patient Records regulations: The Federal rules restrict any use of the information to criminally investigate or prosecute any alcohol or drug abuse patient.[facility] the event this information is protected by the Federal Confidentiality of Alcohol and Drug Abuse Patient Records regulations: The Federal rules restrict any use of the information to criminally investigate or prosecute any alcohol or drug abuse patient.[facility] the event this information is protected by the Federal Confidentiality of Alcohol and Drug Abuse Patient Records regulations: The Federal rules restrict any use of the information to criminally investigate or prosecute any alcohol or drug abuse patient.[facility] the event this information is protected by the Federal Confidentiality of Alcohol and Drug Abuse Patient Records regulations: The Federal rules restrict any use of the information to criminally investigate or prosecute any alcohol or drug abuse patient.[facility] the event this information is protected by the Federal Confidentiality of Alcohol and Drug Abuse Patient Records regulations: The Federal rules restrict any use of the information to criminally investigate or prosecute any alcohol or drug abuse patient.[facility] [place]In the event this information is protected by the Federal Confidentiality of Alcohol and Drug Abuse Patient Records regulations: The Federal rules restrict any use of the information to criminally investigate or prosecute any alcohol or drug abuse patient.[facility] [place]In the event this information is protected by the Federal Confidentiality of Alcohol and Drug Abuse Patient Records regulations: The Federal rules restrict any use of the information to criminally investigate or prosecute any alcohol or drug abuse patient.[facility] [place]In the event this information is protected by the Federal Confidentiality of Alcohol and Drug Abuse Patient Records regulations: The Federal rules restrict any use of the information to criminally investigate or prosecute any alcohol or drug abuse patient.[facility] [place]In the event this information is protected by the Federal Confidentiality of Alcohol and Drug Abuse Patient Records regulations: The Federal rules restrict any use of the information to criminally investigate or prosecute any alcohol or drug abuse patient.[facility] JacksonIn the event this information is protected by the Federal Confidentiality of Alcohol and Drug Abuse Patient Records regulations: The Federal rules restrict any use of the information to criminally investigate or prosecute any alcohol or drug abuse patient.[facility] JacksonIn the event this information is protected by the Federal Confidentiality of Alcohol and Drug Abuse Patient Records regulations: The Federal rules restrict any use of the information to criminally investigate or prosecute any alcohol or drug abuse patient.[facility] [place]In the event this information is protected by the Federal Confidentiality of Alcohol and Drug Abuse Patient Records regulations: The Federal rules restrict any use of the information to criminally investigate or prosecute any alcohol or drug abuse patient.[facility] [place]In the event this information is protected by the Federal Confidentiality of Alcohol and Drug Abuse Patient Records regulations: The Federal rules restrict any use of the information to criminally investigate or prosecute any alcohol or drug abuse patient.[facility] [place]In the event this information is protected by the Federal Confidentiality of Alcohol and Drug Abuse Patient Records regulations: The Federal rules restrict any use of the information to criminally investigate or prosecute any alcohol or drug abuse patient.[facility] [place]In the event this information is protected by the Federal Confidentiality of Alcohol and Drug Abuse Patient Records regulations: The Federal rules restrict any use of the information to criminally investigate or prosecute any alcohol or drug abuse patient.[facility] [place]In the event this information is protected by the Federal Confidentiality of Alcohol and Drug Abuse Patient Records regulations: The Federal rules restrict any use of the information to criminally investigate or prosecute any alcohol or drug abuse patient.[facility] [place]In the event this information is protected by the Federal Confidentiality of Alcohol and Drug Abuse Patient Records regulations: The Federal rules restrict any use of the information to criminally investigate or prosecute any alcohol or drug abuse patient.[facility] [place]In the event this information is protected by the Federal Confidentiality of Alcohol and Drug Abuse Patient Records regulations: The Federal rules restrict any use of the information to criminally investigate or prosecute any alcohol or drug abuse patient.[facility] [place]In the event this information is protected by the Federal Confidentiality of Alcohol and Drug Abuse Patient Records regulations: The Federal rules restrict any use of the information to criminally investigate or prosecute any alcohol or drug abuse patient.[facility] [place]In the event this information is protected by the Federal Confidentiality of Alcohol and Drug Abuse Patient Records regulations: The Federal rules restrict any use of the information to criminally investigate or prosecute any alcohol or drug abuse patient.[facility] [place]In the event this information is protected by the Federal Confidentiality of Alcohol and Drug Abuse Patient Records regulations: The Federal rules restrict any use of the information to criminally investigate or prosecute any alcohol or drug abuse patient.[facility] [place]In the event this information is protected by the Federal Confidentiality of Alcohol and Drug Abuse Patient Records regulations: The Federal rules restrict any use of the information to criminally investigate or prosecute any alcohol or drug abuse patient.[facility] the event this information is protected by the Federal Confidentiality of Alcohol and Drug Abuse Patient Records regulations: The Federal rules restrict any use of the information to criminally investigate or prosecute any alcohol or drug abuse patient.[facility] [place]In the event this information is protected by the Federal Confidentiality of Alcohol and Drug Abuse Patient Records regulations: The Federal rules restrict any use of the information to criminally investigate or prosecute any alcohol or drug abuse patient.[facility] [place]In the event this information is protected by the Federal Confidentiality of Alcohol and Drug Abuse Patient Records regulations: The Federal rules restrict any use of the information to criminally investigate or prosecute any alcohol or drug abuse patient.[facility] [place]In the event this information is protected by the Federal Confidentiality of Alcohol and Drug Abuse Patient Records regulations: The Federal rules restrict any use of the information to criminally investigate or prosecute any alcohol or drug abuse patient.[facility] [place]In the event this information is protected by the Federal Confidentiality of Alcohol and Drug Abuse Patient Records regulations: The Federal rules restrict any use of the information to criminally investigate or prosecute any alcohol or drug abuse patient.[facility] [place]In the event this information is protected by the Federal Confidentiality of Alcohol and Drug Abuse Patient Records regulations: The Federal rules restrict any use of the information to criminally investigate or prosecute any alcohol or drug abuse patient.[facility] [place]In the event this information is protected by the Federal Confidentiality of Alcohol and Drug Abuse Patient Records regulations: The Federal rules restrict any use of the information to criminally investigate or prosecute any alcohol or drug abuse patient.[facility] [place]In the event this information is protected by the Federal Confidentiality of Alcohol and Drug Abuse Patient Records regulations: The Federal rules restrict any use of the information to criminally investigate or prosecute any alcohol or drug abuse patient.[facility] [place]In the event this information is protected by the Federal Confidentiality of Alcohol and Drug Abuse Patient Records regulations: The Federal rules restrict any use of the information to criminally investigate or prosecute any alcohol or drug abuse patient.[facility] [place]In the event this information is protected by the Federal Confidentiality of Alcohol and Drug Abuse Patient Records regulations: The Federal rules restrict any use of the information to criminally investigate or prosecute any alcohol or drug abuse patient.[facility] [place]In the event this information is protected by the Federal Confidentiality of Alcohol and Drug Abuse Patient Records regulations: The Federal rules restrict any use of the information to criminally investigate or prosecute any alcohol or drug abuse patient.[facility] [place]In the event this information is protected by the Federal Confidentiality of Alcohol and Drug Abuse Patient Records regulations: The Federal rules restrict any use of the information to criminally investigate or prosecute any alcohol or drug abuse patient.[facility] [place]In the event this information is protected by the Federal Confidentiality of Alcohol and Drug Abuse Patient Records regulations: The Federal rules restrict any use of the information to criminally investigate or prosecute any alcohol or drug abuse patient.[facility] [place]In the event this information is protected by the Federal Confidentiality of Alcohol and Drug Abuse Patient Records regulations: The Federal rules restrict any use of the information to criminally investigate or prosecute any alcohol or drug abuse patient.[facility] [place]In the event this information is protected by the Federal Confidentiality of Alcohol and Drug Abuse Patient Records regulations: The Federal rules restrict any use of the information to criminally investigate or prosecute any alcohol or drug abuse patient.[facility] [place]In the event this information is protected by the Federal Confidentiality of Alcohol and Drug Abuse Patient Records regulations: The Federal rules restrict any use of the information to criminally investigate or prosecute any alcohol or drug abuse patient.[facility] [place]In the event this information is protected by the Federal Confidentiality of Alcohol and Drug Abuse Patient Records regulations: The Federal rules restrict any use of the information to criminally investigate or prosecute any alcohol or drug abuse patient.[facility] [place]In the event this information is protected by the Federal Confidentiality of Alcohol and Drug Abuse Patient Records regulations: The Federal rules restrict any use of the information to criminally investigate or prosecute any alcohol or drug abuse patient.[facility] [place]In the event this information is protected by the Federal Confidentiality of Alcohol and Drug Abuse Patient Records regulations: The Federal rules restrict any use of the information to criminally investigate or prosecute any alcohol or drug abuse patient.[facility] [place]In the event this information is protected by the Federal Confidentiality of Alcohol and Drug Abuse Patient Records regulations: The Federal rules restrict any use of the information to criminally investigate or prosecute any alcohol or drug abuse patient.[facility] [place]In the event this information is protected by the Federal Confidentiality of Alcohol and Drug Abuse Patient Records regulations: The Federal rules restrict any use of the information to criminally investigate or prosecute any alcohol or drug abuse patient.[facility] [place]In the event this information is protected by the Federal Confidentiality of Alcohol and Drug Abuse Patient Records regulations: The Federal rules restrict any use of the information to criminally investigate or prosecute any alcohol or drug abuse patient.[facility] [place]In the event this information is protected by the Federal Confidentiality of Alcohol and Drug Abuse Patient Records regulations: The Federal rules restrict any use of the information to criminally investigate or prosecute any alcohol or drug abuse patient.[facility] [place]In the event this information is protected by the Federal Confidentiality of Alcohol and Drug Abuse Patient Records regulations: The Federal rules restrict any use of the information to criminally investigate or prosecute any alcohol or drug abuse patient.[facility] [place]In the event this information is protected by the Federal Confidentiality of Alcohol and Drug Abuse Patient Records regulations: The Federal rules restrict any use of the information to criminally investigate or prosecute any alcohol or drug abuse patient.[facility] [place]In the event this information is protected by the Federal Confidentiality of Alcohol and Drug Abuse Patient Records regulations: The Federal rules restrict any use of the information to criminally investigate or prosecute any alcohol or drug abuse patient.[facility] [place]In the event this information is protected by the Federal Confidentiality of Alcohol and Drug Abuse Patient Records regulations: The Federal rules restrict any use of the information to criminally investigate or prosecute any alcohol or drug abuse patient.[facility] JacksonIn the event this information is protected by the Federal Confidentiality of Alcohol and Drug Abuse Patient Records regulations: The Federal rules restrict any use of the information to criminally investigate or prosecute any alcohol or drug abuse patient.[facility] [place] Reason for Visit (unrecogniz ed section and [...] EXAM ABDOMEN 3+ VIEWS Osmin Singh MD [address] [place] [address] Xr Imaging Referral ID Status Reason Start Date Expiration Date V isits Requested Visits Authorized [id number] Closed Auto-Generate d Referral 11/17/2021 12/17/2022 1 [...] Gassiness Procedures CONSULT TO FUNCTIONAL MEDICINE OFFICE/OUTPATIENT NEW HIGH MDM 60-74 MINUTES Kezia Dubose MD [address] [place] [address] Med Functional Main [address] [id number] Referral ID Status Reason Start Date Expiration Date Visits Requested Visits Authorized [id number] Pending Review PCP Requested Referral 03/03/2022 03/03/2023 1 1 Reason Comments New Patient Specialty Diagnoses / Procedures Referred By Contac t Referred To Contact FUNCTIONAL MEDICINE Diagnoses Irritable bowel syndrome with diarrhea Gassiness Procedures CONSULT TO FUNCTIONAL MEDICINE OFFICE/OUTPATIENT NEW HIGH MDM 60-74 MINUTES Kezia Dubose MD [address] [place] [address] Med Functional Main [address] [place] [address] Reason Comments Insurance Authorization Reason Onset Date Comments [facility] General - No-go 10/13/2022 Xifaxan Reason Comments Follow Up refill needed Reason Onset Date Comments [facility] 04/07/2023 enrollment Reason Comments [facility] Order Request Reason Comments FYI: [facility] PT POC Reason Comments Patient Update Reason Comments Consult Reason Onset Date Comments Community Monitoring Outreach 05/04/2023 CD Telephonic Outreach Reason Comments Home Health Orders Reason Onset Date Comments Community Monitoring Outreach 05/05/2023 [facility] Telephonic Outreach Reason Comments Medication Request Orders Reason Comments Attempt to fax current med list to [employer] Reason Onset Date Comments Refill Request 05/12/2023 Reason Onset Date Comments Community Monitoring Outreach 06/02/2023 CD Telephonic Outreach Reason Comments Patient Question Reason Comments CARD Follow Up 6 Month Reason Onset Date Comments Community Monitoring Outreach 07/03/2023 CD M Telephonic Outreach Reason Onset Date Comments Community Monitoring Outreach 08/01/2023 CD M Telephonic Outreach Reason Comments Follow Up Pt [...] Onset Date Comments Community Monitoring Outreach 05/15/2024 CD M Telephonic Outreach Reason Comments Hospital F/U syncope discharged o n 05/14/24 Reason Onset Date Comments Refill Request 06/01/2024 Reason Onset Date Comments Population Health Navigation Outreach 06/25/2024 [facility] Reason Comments Patient Update Fmla paperwork Reason Comments Release Of Medical Records Care Teams (unrecognized sec tion and content) Hypnotherapist Relationship Specialty Start Date End Date Kezia Dubose MD [address] [place] [address] PCP - General Internal Medicine 01/28/22 Hypnotherapist Relationship Specialty Start Date End Date Kezia Dubose MD [address] [place] [address] PCP - General Internal Medicine 01/28/22 Hypnotherapist Relationship Specialty Start Date End Date Kezia Dubose MD [address] [place] [address] PCP - General Internal Medicine 01/28/22 Hypnotherapist Relationship Specialty Start Date End Date Kezia Dubose MD [address] [place] [address] PCP - General Internal Medicine 01/28/22 Hypnotherapist Relationship Specialty Start Date End Date Kezia Dubose MD [address] [facility] [place] [address] PCP - General Internal Medicine 01/28/22 Hypnotherapist Relationship Specialty Start Date End Date Kezia Dubose MD [address] [facility] [place] [address] PCP - General Internal Medicine 01/28/22 Hypnotherapist Relationship Specialty Start Date End Date Kezia Dubose MD [address] [facility] [place] [address] PCP - General Internal Medicine 01/28/22 Hypnotherapist Relationship Specialty Start Date End Date Kezia Dubose MD [address] [facility] [place] [address] PCP - General Internal Medicine 01/28/22 Hypnotherapist Relationship Specialty Start Date End Date Kezia Dubose MD [address] [facility] [place] [address] PCP - General Internal Medicine 01/28/22 Hypnotherapist Relationship Specialty Start Date End Date Kezia Dubose MD [address] [facility] [place] [address] PCP - General Internal Medicine 01/28/22 Hypnotherapist Relationship Specialty Start Date End Date Kezia Dubose MD [address] [facility] [place] [address] PCP - General Internal Medicine 01/28/22 Hypnotherapist Relationship Specialty Start Date End Date Kezia Dubose MD [address] [facility] [place] [address] PCP - General Internal Medicine 01/28/22 Hypnotherapist Relationship Specialty Start Date End Date Kezia Dubose MD [address] [facility] [place] [address] PCP - General Internal Medicine 01/28/22 Hypnotherapist Relationship Specialty Start Date End Date Kezia Dubose MD [address] [facility] [place] [address] PCP - General Internal Medicine 01/28/22 Hypnotherapist Relationship Specialty Start Date End Date Kezia Dubose MD [address] [facility] [place] [address] PCP - General Internal Medicine 01/28/22 Hypnotherapist Relationship Specialty Start Date End Date Kezia Dubose MD [address] [facility] [place] [address] PCP - General Internal Medicine 01/28/22 Hypnotherapist Relationship Specialty Start Date End Date Kezia Dubose MD [address] [facility] [place] [address] PCP - General Internal Medicine 01/28/22 Hypnotherapist Relationship Specialty Start Date End Date Kezia Dubose MD [address] [facility] [place] [address] PCP - General Internal Medicine 01/28/22 Hypnotherapist Relationship Specialty Start Date End Date Kezia Dubose MD [address] [facility] [place] [address] PCP - General Internal Medicine 01/28/22 Hypnotherapist Relationship Specialty Start Date End Date Kezia Dubose MD [address] [facility] [place] [address] PCP - General Internal Medicine 01/28/22 Hypnotherapist Relationship Specialty Start Date End Date Kezia Dubose MD [address] [facility] [place] [address] PCP - General Internal Medicine 01/28/22 Hypnotherapist Relationship Specialty Start Date End Date Kezia Dubose MD [address] [facility] [place] [address] PCP - General Internal Medicine 01/28/22 India Woodson, agency ownerSeasonal Package Handler 04/10/23 Hypnotherapist Relationship Specialty Start Date End Date Kezia Dubose MD [address] [facility] [place] [address] PCP - General Internal Medicine 01/28/22 India Woodson, agency ownerSeasonal Package Handler 04/10/23 Hypnotherapist Relationship Specialty Start Date End Date Kezia Dubose MD [address] [facility] [place] [address] PCP - General Internal Medicine 01/28/22 India Woodson, agency ownerSeasonal Package Handler 04/10/23 Hypnotherapist Relationship Specialty Start Date End Date Kezia Dubose MD [address] [facility] [place] [address] PCP - General Internal Medicine 01/28/22 India Woodson, agency ownerSeasonal Package Handler 04/10/23 Hypnotherapist Relationship Specialty Start Date End Date Kezia Dubose MD [address] [facility] [place] [address] PCP - General Internal Medicine 01/28/22 India Woodson, agency ownerSeasonal Package Handler 04/10/23 Hypnotherapist Relationship Specialty Start Date End Date Kezia Dubose MD [address] [facility] [place] [address] PCP - General Internal Medicine 01/28/22 India Woodson, agency ownerSeasonal Package Handler 04/10/23 Hypnotherapist Relationship Specialty Start Date End Date Kezia Dubose MD [address] [facility] [place] [address] PCP - General Internal Medicine 01/28/22 India Woodson, agency ownerSeasonal Package Handler 04/10/23 Hypnotherapist Relationship Specialty Start Date End Date Kezia Dubose MD [address] [place] [address] PCP - General Internal Medicine 01/28/22 India Woodson, agency ownerSeasonal Package Handler 04/10/23 Hypnotherapist Relationship Specialty Start Date End Date Kezia Dubose MD [address] [facility] [place] [address] PCP - General Internal Medicine 01/28/22 India Woodson, agency ownerSeasonal Package Handler 04/10/23 Hypnotherapist Relationship Specialty Start Date End Date Kezia Dubose MD [address] [facility] [place] [address] PCP - General Internal Medicine 01/28/22 India Woodson, agency ownerSeasonal Package Handler 04/10/23 Hypnotherapist Relationship Specialty Start Date End Date Kezia Dubose MD [address] [facility] [place] [address] PCP - General Internal Medicine 01/28/22 India Woodson, agency ownerSeasonal Package Handler 04/10/23 Hypnotherapist Relationship Specialty Start Date End Date Kezia Dubose MD [address] [facility] [place] [address] PCP - General Internal Medicine 01/28/22 India Woosdon, agency ownerSeasonal Package Handler 04/10/23 Hypnotherapist Relationship Specialty Start Date End Date Kezia Dubose MD [address] [facility] [place] [address] PCP - General Internal Medicine 01/28/22 India Woodson, agency ownerSeasonal Package Handler 04/10/23 Hypnotherapist Relationship Specialty Start Date End Date Kezia Dubose MD [address] [facility] [place] [address] PCP - General Internal Medicine 01/28/22 India Woodson, agency ownerSeasonal Package Handler 04/10/23 Hypnotherapist Relationship Specialty Start Date End Date Kezia Dubose MD [address] [place] [address] PCP - General Internal Medicine 01/28/22 India Woodson, agency ownerSeasonal Package Handler 04/10/23 Hypnotherapist Relationship Specialty Start Date End Date Kezia Dubose MD [address] [facility] [place] [address] PCP - General Internal Medicine 01/28/22 India Woodson, agency ownerSeasonal Package Handler 04/10/23 Hypnotherapist Relationship Specialty Start Date End Date Kezia Dubose MD [address] [facility] [place] [address] PCP - General Internal Medicine 01/28/22 India Woodson, agency ownerSeasonal Package Handler 04/10/23 Hypnotherapist Relationship Specialty Start Date End Date Kezia Dubose MD [address] [facility] [place] [address] PCP - General Internal Medicine 01/28/22 India Woodson, agency ownerSeasonal Package Handler 04/10/23 Hypnotherapist Relationship Specialty Start Date End Date Kezia Dubose MD [address] [facility] [place] [address] PCP - General Internal Medicine 01/28/22 India Woodson, agency ownerSeasonal Package Handler 04/10/23 Hypnotherapist Relationship Specialty Start Date End Date Kezia Dubose MD [address] [facility] [place] [address] PCP - General Internal Medicine 01/28/22 India Woodson, agency ownerSeasonal Package Handler 04/10/23 Hypnotherapist Relationship Specialty Start Date End Date Kezia Dubose MD [address] [facility] [place] [address] PCP - General Internal Medicine 01/28/22 India Woodson, agency ownerSeasonal Package Handler 04/10/23 Hypnotherapist Relationship Specialty Start Date End Date Kezia Dubose MD [address] [facility] [place] [address] PCP - General Internal Medicine 01/28/22 India Woodson, agency ownerSeasonal Package Handler 04/10/23 Hypnotherapist Relationship Specialty Start Date End Date Kezia Dubose MD [address] [facility] [place] [address] PCP - General Internal Medicine 01/28/22 India Woodson, agency ownerSeasonal Package Handler 04/10/23 Hypnotherapist Relationship Specialty Start Date End Date Kezia Dubose MD [address] [facility] [place] [address] PCP - General Internal Medicine 01/28/22 Hypnotherapist Relationship Specialty Start Date End Date Kezia Dubose MD [address] [facility] [place] [address] PCP - General Internal Medicine 01/28/22 Hypnotherapist Relationship Specialty Start Date End Date Kezia Dubose MD [address] [facility] [place] [address] PCP - General Internal Medicine 01/28/22 Hypnotherapist Relationship Specialty Start Date End Date Kezia Dubose MD [address] [facility] [place] [address] PCP - General Internal Medicine 01/28/22 FOR [...] BE BASED ON THE PRIMARY CLINICAL RECORDS. [facility] [employer] [facility]. provides no warranty or guarantee of the accuracy or completeness of information in this document."
[2024-07-16 23:43] VITALS: BP 131/67; PULSE 80; RESP 20; O2SAT 95
[2024-07-17] VITALS: BP 140/68; PULSE 74; RESP 19; O2SAT 95
[2024-07-17 01:00] VITALS: BP 145/72; PULSE 72; RESP 18; O2SAT 95
[2024-07-17] MEDS: Haloperidol Lactate 5 MG/ML Vial 2 MG IV (01:35)
--- NOTE | 2024-07-17 01:49 | EX.ED.DYSGE1 ---
HPI History of Present Illness Chief Complaint: Unresponsive Informant: family and SNF Narrative Narrative: Patient is an 89-year-old male with past medical history of hypertension hyperlipidemia and dementia as well as previous CVA. He fell roughly 1 week ago and was just discharged from the hospital after requiring surgery for a hip fracture. He went to the nursing facility today and according to family had one of his episodes . Family states that occasionally his body will just shut down where he will sleep for 6 to 12 hours and not respond to anyone or anything and then he just wakes up and is at his baseline mental status. They state that he did have a busy day with his transfer to the senior living and rehab and this evening was given Ativan to help with agitation and anxiety. They feel that he is in one of his episodes but has a senior living does not know this patient as he just recently arrived there and he had a change in mental status they wanted him sent to the hospital for evaluation The patient cannot offer any further history based on his altered mental status [facility] Medical History Dementia Stroke/cerebrovascular accident Cognitive impairment Syncope Hyponatremia Altered mental status Essential (primary) hypertension Internal hemorrhoids Diverticulosis Celiac disease Carotid stenosis, bilateral BPH (benign prostatic hyperplasia) Hyperlipidemia Non-smoker AAA (abdominal aortic aneurysm) Hypertension Stroke/cerebrovascular accident Home Medications ?Medication ?Instructions ?Recorded ?Last Taken ?Type lorazepam 0.5 mg tablet 0.5 mg PO TID PRN anxiety #6 tabs 05/14/24 Unknown Rx amlodipine 5 mg tablet 5 mg PO DAILY HYPERTENSION 07/10/24 Unknown History clopidogrel 75 mg tablet 75 mg PO DAILY ANTIPLATELET 07/10/24 Unknown History tamsulosin 0.4 mg capsule 0.4 mg PO DAILY BPH 07/10/24 Unknown History acetaminophen 500 mg tablet 1,000 mg (2 x 500 mg) PO Q8 #0 tabs 07/15/24 Unknown Rx aluminum-mag hydroxide-simethicone 30 ml PO Q6H PRN PRN Gastric 07/15/24 Unknown Rx 400 mg-400 mg-40 mg/5 mL oral susp Burning #0 mL (Mag-Al Plus Extra Strength) aspirin 81 mg chewable tablet 81 mg PO BID #1 TAB 07/15/24 Unknown Rx clotrimazole 1 % topical cream 1 applic topical BID #15 grams 07/15/24 Unknown Rx guaifenesin 100 mg/5 mL oral liquid 100 mg (5 mL) PO Q4H PRN PRN Cough 07/15/24 Unknown Rx #1,000 mL melatonin 3 mg tablet 3 mg PO QHS PRN PRN Insomnia #1 TAB 07/15/24 Unknown Rx menthol 0.44 %-zinc oxide 20.6 % 1 applic topical TID #0 grams 07/15/24 Unknown Rx topical ointment (Calmoseptine) metoprolol tartrate 25 mg tablet 12.5 mg (1/2 x 25 mg) PO BID #1 TAB 07/15/24 Unknown Rx oxycodone 5 mg tablet 5 mg PO Q6H PRN pain 5 days #4 tabs 07/15/24 Unknown Rx sennosides 8.6 mg-docusate sodium 2 tab PO BID PRN constipation 07/16/24 Unknown History 50 mg tablet (Stimulant Laxative Plus) Allergy/AdvReac Type Severity Reaction Status Date / Time gluten Allergy Diarrhea Verified 07/16/24 22:44 Food Allergies: Uncoded AdvReac Intermediate Other Verified 07/16/24 22:44 Family History Father CVA (cerebral vascular accident) Sister Lupus (systemic lupus erythematosus) Brother Diabetes Brother Diabetes Surgical History History of excision of lesion History of excision of lesion H/O abdominal aortic aneurysm repair Social History household members: spouse housing: other details: Private one-story home with no steps. 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 pets and animals: Yes Smoking Status: Never smoker alcohol intake: never substance use type: does not use ROS ROS ED ROS Narrative Unable to obtain review of systems based on patient's altered mental status Review of Systems ROS Unobtainable: due to mental status EXAM Physical Exam Const Vital Signs: 07/16/24 22:43 07/16/24 22:43 07/16/24 23:43 Temperature 97.9 F Temperature Source Axillary Pulse Rate 82 80 Respiratory Rate 16 20 H Respiratory Effort Normal Non-Labored Blood Pressure 164/78 H 131/67 H Blood Pressure Mean 106 88 Pulse Ox 94 95 Oxygen Delivery Method Room Air Room Air 07/17/24 00:00 07/17/24 01:00 Temperature Temperature Source Pulse Rate 74 72 Respiratory Rate 19 H 18 Respiratory Effort Blood Pressure 140/68 H 145/72 H Blood Pressure Mean 92 96 Pulse Ox 95 95 Oxygen Delivery Method Room Air Room Air Positive well nourished and well developed General Appearance ED: well developed HEENT Reports dry mucous membranes HEENT Narrative: Mucous membranes are dry and tacky No tongue or lip swelling no oral lesions no airway edema or compromise No signs of infection noted in the posterior pharynx Mouth ED: Yes dry mucous membranes Mouth: dry mucous membranes Eyes PERRL Neck supple Neck Narrative: No nuchal rigidity or meningeal signs Chest Wall palpation of chest normal Chest Narrative: No bony deformity or crepitance Resp normal respiratory effort and clear to auscultation bilaterally Resp Narrative: Breath sounds are diminished throughout but overall clear to auscultation without signs of distress Cardio regular rate and regular rhythm GI normal to inspection, nondistended, normoactive bowel sounds, non-tender, non-distended and no masses GI Narrative: No voluntary guarding or rigidity or pulsatile mass Auscultation: normoactive bowel sounds Palpation: soft Extremity Extremity Narrative: Postsurgical changes to the left femur/hip consistent with recent hip fracture surgery. Wound is clean dry and intact. No secondary findings to suggest infection or DVT Neuro Neuro Narrative: Patient is obtunded with GCS of 10. He will localize pain and move all extremities to pain equally No facial droop Patient has a gag reflex there is no airway compromise No obvious focal neurologic deficit Skin Skin Narrative: Surgical wound to the left leg/hip as documented above without secondary findings to suggest infection Skin turgor is increased MDM MDM MDM Narrative Medical decision making narrative: Patient arrived to the ER slightly hypertensive but otherwise with stable vitals. Family reported that he has had this happen in the past and that typically he just needs to sleep for multiple hours and will return to his baseline mental status. My exam does not show signs of infection such as a postoperative skin infection. His lungs sound clear his pulse ox is normal going against pneumonia. He localizes and moves all extremities going against an acute CVA. I discussed with family obtaining basic labs as well as chest x-ray urine sample and head CT based on his altered mental status. However they feel that this is normal for him when these episodes occur and do not want testing obtained. Therefore the patient was monitored in the ER for multiple hours. Without providing any type of medication or testing the patient spontaneously awoke from his altered mental status and now was at his baseline answering questions and moving his extremities as normal. Therefore at this time with return to his baseline mental status and stable vitals there is no need for further workup in the ER and he is otherwise safe for discharge History & Record Review Discussion w/independent historian: Family Discharge Plan Triage Chief Complaint: Unresponsive ED Provider: Hero Betancourt Dx/Rx/DC Orders Clinical Impression: Mental status change resolved, Hypertension, Hyperlipidemia, Dementia Instructions: ED ALOC Prescriptions: No Action lorazepam 0.5 mg tablet 0.5 mg PO TID PRN (Reason: anxiety) Qty: 6 0RF sennosides-docusate sodium [Stimulant Laxative Plus] 8.6-50 mg Tablet 2 tab PO BID PRN (Reason: constipation) amlodipine 5 mg tablet 5 mg PO DAILY Patient Comments: also takes 2.5 mg at dinner. clopidogrel 75 mg tablet 75 mg PO DAILY tamsulosin 0.4 mg capsule 0.4 mg PO DAILY metoprolol tartrate 25 mg tablet 12.5 mg PO BID Qty: 1 0RF acetaminophen 500 mg Tablet 1,000 mg PO Q8 Qty: 0 0RF aspirin 81 mg Tablet,Chewable 81 mg PO BID Qty: 1 0RF melatonin 3 mg Tablet 3 mg PO QHS PRN PRN (Reason: Insomnia) Qty: 1 0RF guaifenesin 100 mg/5 mL Liquid 100 mg PO Q4H PRN PRN (Reason: Cough) Qty: 1000 0RF menthol-zinc oxide [Calmoseptine] 0.44-20.6 % Ointment 1 applic topical TID Qty: 0 0RF Protocol: *Topical Application Instructions APPLICATION INSTRUCTIONS: buttocks alum-mag hydroxide-simeth [Mag-Al Plus Extra Strength] 400-400-40 mg/5 mL Suspension 30 ml PO Q6H PRN PRN (Reason: Gastric Burning) Qty: 0 0RF clotrimazole 1 % cream 1 applic topical BID Qty: 15 0RF Rx Instructions: apply for nasolabial and glabellar area oxycodone 5 mg tablet 5 mg PO Q6H PRN (Reason: pain) 5 Days Qty: 4 0RF Primary Care Provider: Bebo Winston Sr. Referrals: Bebo Winston Sr., [Primary Care Provider] - Activity Restrictions/Additional Instructions: The patient's symptoms resolved spontaneously indicating that these changes in mental status are most likely a combination of underlying medical illness and medication. Physical exam did not suggest any sign of stroke Print Language: Faroese Disposition Disposition: Home, Self Care Discharge Date/Time: 07/17/24 04:21
[2024-07-17 02:00] VITALS: BP 141/79; PULSE 77; RESP 14; O2SAT 97
[2024-07-17 02:04] VITALS: BP 141/79; PULSE 81; RESP 14; TEMP 36.3; O2SAT 99
--- NOTE | 2024-07-17 02:13 | ED.RN ---
Report called back to long-term
[2024-07-17 03:00] VITALS: BP 148/61; PULSE 74; RESP 13; O2SAT 98
== END 2024-07-17 04:21 | disposition home or self-care (01) ==
PROVIDERS: Emergency Provider Emergency Medicine; PCP Internal Medicine; Visit Provider Emergency Medicine
DX: R41.82 Altered mental status, unspecified (principal); F03.90 Unspecified dementia, unspecified severity, without behavioral disturbance, psychotic disturbance, mood disturbance, and anxiety; I10 Essential (primary) hypertension; E78.5 Hyperlipidemia, unspecified; K90.0 Celiac disease; N40.0 Benign prostatic hyperplasia without lower urinary tract symptoms; I71.40 Abdominal aortic aneurysm, without rupture, unspecified; I65.23 Occlusion and stenosis of bilateral carotid arteries; Z86.73 Personal history of transient ischemic attack (TIA), and cerebral infarction without residual deficits; Z87.81 Personal history of (healed) traumatic fracture; Z79.02 Long term (current) use of antithrombotics/antiplatelets; Z79.82 Long term (current) use of aspirin; Z79.899 Other long term (current) drug therapy; Z98.890 Other specified postprocedural states
CPT/HCPCS: 96374; 99285; A4216